=== PATIENT | male | born 1970 | race Caucasian/White ===

== ENCOUNTER 2020-09-09 12:18 | Inpatient (IN) | payer MEDICAID, SELFPAY ==
[2020-09-09 12:23] VITALS: BP 145/76; PULSE 103; RESP 18; TEMP 36.7; O2SAT 99; BMI 27.8
--- NOTE | 2020-09-09 12:41 | ECG_ITS ---
Test Reason : OD Blood Pressure : / mmHG Vent. Rate : 065 BPM Atrial Rate : 065 BPM P-R Int : 138 ms QRS Dur : 090 ms QT Int : 428 ms P-R-T Axes : 051 009 014 degrees QTc Int : 445 ms Normal sinus rhythm Nonspecific T wave abnormality Abnormal ECG When compared with ECG of 29-NOV-2019 18:43, No significant change was found Referred By: Ana Rosa Garcia Electronically Signed By:Dario Pratt
--- NOTE | 2020-09-09 12:48 | ED_ITS ---
HPI - Psych General Chief Complaint: Psychiatric Symptoms Stated Complaint: CRISIS Time Seen by Provider: 09/09/20 12:35 Source: patient Mode of arrival: ambulatory Limitations: no limitations History of Present Illness HPI Narrative: 49-year-old male with a past medical history of anxiety, depression, insomnia, alcohol abuse, former substance use on Suboxone here with complaints of suicide attempt yesterday. Patient tells me that he has been feeling increasingly depressed and suicidal and took medications to harm himself yesterday at 16:00. Patient arrives with empty bottles. He tells me he filled his medications on 08/15/2020 and has been taking them as prescribed until yesterday. He arrives with empty bottles of Geodon, Wellbutrin, Remeron, trazodone and hydroxyzine. He tells me he is feeling suicidal. He denies homicidal ideations or hallucinations. He is complaining of feeling tremulous and diaphoretic. He tells me he drinks 12-18 beers per day and his last drink was last evening. He does have a history of seizures secondary to alcohol withdrawal. He tells me that he also has a previous history of substance abuse but is currently on Suboxone. Related Data Home Medications Medication Instructions Recorded Confirmed buprenorphine-naloxone [Suboxone] 1 film BUCCAL Q24H 09/09/20 09/09/20 bupropion HCl [Wellbutrin XL] 1 tab PO QAM 09/09/20 09/09/20 gabapentin 1 tab PO TID 09/09/20 09/09/20 hydroxyzine pamoate 50 cap PO TID PRN 09/09/20 09/09/20 mirtazapine 1 tab PO BEDTIME 09/09/20 09/09/20 trazodone 1 tab PO BEDTIME 09/09/20 09/09/20 ziprasidone HCl 1 cap PO BID 09/09/20 09/09/20 Allergies Allergy/AdvReac Type Severity Reaction Status Date / Time No Known Allergies Allergy Unverified 02/10/20 19:52 [No Known Allergies*] Review of Systems Review of Systems: Yes all other systems are reviewed and are negative Constitutional: Constitutional: Reports no additional constitutional complaints, Denies body ache(s), Denies chills, Reports excessive sweating, Denies fever(s), Denies headache(s) and Denies weakness Eyes: Eyes: Reports no additional eye complaints and Denies change in vision ENT: Reports system reviewed and no additional complaints, except as documented, Denies dizziness, Denies headache(s), Denies nasal congestion, Denies nasal discharge and Denies neck pain Cardiovascular: Cardiovascular: Reports no additional cardiovascular complaints, Denies chest pain, Denies leg edema and Denies dyspnea Respiratory: Respiratory: Reports no additional respiratory complaints, Denies cough and Denies dyspnea Gastrointestinal: Gastrointestinal: Reports no additional gastrointestinal complaints, Denies abdominal pain, Denies diarrhea, Denies nausea and Denies vomiting Genitourinary: Genitourinary: Denies urinary incontinence Musculoskeletal: Musculoskeletal: Reports no additional musculoskeletal complaints, Denies back pain, Denies arthralgias, Denies joint swelling, Denies neck pain, Denies numbness and Denies tingling Integumentary/Breasts: Skin/Breast: Reports system reviewed and no additional complaints, except as docu and Denies rash Neurologic: Reports system reviewed and no additional complaints, except as documented, Denies Abnormal speech present, Denies dizziness, Denies headache(s), Denies numbness, Denies tingling and Denies weakness Comments: +tremor Endocrine: Endocrine: Reports excessive sweating PMFSH Past Medical History Attestation statement: The following information was validated with the patient. Source: old records reviewed and nursing notes reviewed Medical History (Updated 09/09/20 @ 13:13 by Ana Rosa Garcia NP) Depression Surgical History (Updated 09/09/20 @ 17:49 by Lexii Willson NP) History of mandibular surgery Family History Family History (Updated 09/09/20 @ 17:48 by Lexii Willson NP) Mother Diabetes mellitus Father Leukemia Social History Social History (Updated 09/09/20 @ 12:57 by Ana Rosa Garcia NP) Alcohol intake: current Smoking Status: Current every day smoker Use of substances other than those prescribed or required for medical reasons: No Advance Directives: No Advance Directives Information Provided: No Physical Exam Vital Signs: Vital Signs: Last Vital Signs Temp 98.3 F 09/09/20 14:55 Pulse 65 09/09/20 16:00 Resp 18 09/09/20 16:00 BP 110/61 09/09/20 14:55 Pulse Ox 94 04/17/21 14:55 Body Mass Index 27.8 Const: General: cooperative and anxious Orientation/consciousness: patient oriented x3 Limitations: no limitations HENMT: Head: Yes normal to inspection Ears: hearing grossly normal bila terally General nose exam: Normal external nose present Face and sinus: Yes normal facial exam Mouth: Normal oral and palatal mucosa present Throat: Yes posterior oropharynx normal Eyes: General: appearance normal, both eyes and all related structures Pupils: Equal, round and reactive pupils present Neck: Neck: Yes normal visual inspection Chest: Chest palpation & inspection: normal inspection of the chest Resp: Effort & Inspection: normal respiratory effort Auscultation: clear to auscultation bilaterally Cardio: Rate: regular rate Rhythm: regular rhythm Peripheral pulses: Peripheral pulses 2+ throughout GI: Inspection: Yes normal to inspection Palpation (GI): Soft to palpation and nontender Auscultation: normal bowel sounds Back/Spine/Pelvis: Thoracic/Lumbar Spine: thoracic and lumbar spine normal to inspection Skin: Other: Diaphoretic General skin exam: no rashes or lesions noted Neuro: Other: Tremulous General: patient oriented x3, no focal motor deficits and normal sensation to monofilament Cranial nerves: Yes Equal, round and reactive pupils present Cognition (Neuro): normal cognition Speech: No Abn ormal speech present Gait exam (Neuro): Normal gait present Motor exam (neuro): 5/5 motor strength present throughout Extrem: General: Yes normal to inspection Course Course Course Narrative: 49-year-old male here status post suicide attempt yesterday at 4 PM on prescription medications. Patient is complaining of feeling tremulous and diaphoretic and has mild tachycardia and hypertension on arrival. He is alert and oriented although anxious. He arrives with his medication bottles which are empty. Reviewed medications which were all filled on August 15. Prior to this attempt he was taking all medications as prescribed. Geodon 40mg PO BID #60. Bottle is empty. Wellbutrin XL 300mg PO daily # 30. Bottle is empty. Remeron 30mg PO daily # 30. Bottle is empty. Trazadone 150mg PO daily #30. Bottle is empty. Hydroxyzine 50mg TID PRN # 90. Bottle is empty (Patient tells me he was taking TID consistently since filling). If patient is truthful about taking his medications as prescribed he likely had 10 tablets left of Geodon, 5 tablets of Wellbutrin, 5 tablets of Remeron, 5 tablets of trazodone and 15 tablets of hydroxyzine. Orders placed for EKG, labs, tox screen, COVID screen. environmental monitoring specialist, seizure precautions, CIWA score. For tachycardia, hypertension, tremors and diaphoresis 2 mg of IV Ativan ordered. 1305-Spoke to poison control. Recommended admission for 24 hours for observation. Patient should remain on seizure precautions and cardiac m onitoring. He should receive p.r.n. benzos for symptoms. He should have EKG every 2 hours x3 to check the QTC and then these may be discontinued. Discussed with nursing and they are aware. Once medically cleared will need BHN evaluation. 1445-Initial qtc 445 on EKG. Plan to follow per poison control. Labs reviewed and unremarkable. Tox screen pending. Call out to hospitalist to discuss for adm ission. 1500-Discussed with Dr Smith who accepted admission of patient. Heart rate and blood pressure as well as tremor and diaphoresis improved after 1 dose of ativan. MDM - Psych Medical Records Attestation: I reviewed the patient's medical records. Lab Data Attestation: I reviewed the patient's lab results. Result diagrams: 09/09/20 14:00 09/09/20 14:00 Labs: Lab Results 09/09/20 09/09/20 09/09/20 Range/Units 14:00 14:00 14:00 WBC 6.7 (4.8-10.8) X10*3/uL RBC 4.75 (4.60-5.80) X10*6/uL Hgb 14.3 (14.0-18.0) g/dl Hct 41.0 L (42-52) % MCV 86.3 (80-98) fL MCH 30.1 (27.0-33.0) pg MCHC 34.9 (31.0-36.0) g/dl RDW 13.1 (11.0-16.0) % Plt Count 251 (160-400) X10*3/uL MPV 10.1 (9.4-12.4) fL Immature Gran % (Auto) 0.1 (0.0-0.4) % Neut % (Auto) 75.3 H (45-73) % Lymph % (Auto) 15.8 L (20-40) % Eagle % (Auto) 7.4 (2-11) % Eos % (Auto) 1.0 (0-4) % Baso % (Auto) 0.4 (0-2) % Lymph # (Auto) 1.1 L (1.2-4.9) X10*3/uL Eagle # (Auto) 0.5 (0.1-1.2) X10*3/uL Eos # (Auto) 0.1 (0.0-0.4) X10*3/uL Baso # (Auto) 0.0 (0.0-0.2) X10*3/uL Abs Immat Gran (auto) 0.01 (0.00-0.03) X10*3/uL Absolute Neuts (auto) 5.1 (2.0-8.3) X10*3/uL Absolute Nucleated RBC 0.000 (0.0-0.012) X10*3/uL Nucleated RBC % (auto) 0.0 (0.0-0.2) /100WBC Sodium 140 (135-145) mmol/L Potassium 3.7 (3.3-5.1) mmol/L Chloride 104 (96-108) mmol/L Carbon Dioxide 27 (22-29) mmol/L Anion Gap 13 (12-20) BUN 13 (9-16) mg/dL Creatinine 0.85 (0.5-1.4) mg/dL Estim Creat Clear Calc 121.1 Estimated GFR > 60 Random Glucose 109 (60-115) mg/dL Calcium 9.3 (8.4-10.2) mg/dL Magnesium 2.1 (1.6-2.6) mg/dL Total Bilirubin 0.9 (0.0-1.0) mg/dL Direct Bilirubin 0.3 (0.0-0.5) mg/dL AST 13 (5-37) U/L ALT 27 (0-40) U/L Alkaline Phosphatase 73 (39-117) U/L Total Protein 6.6 (6.5-8.0) g/dL Albumin 4.3 (3.5-5.0) g/dL Salicylates (15-30) mg/dL Acetaminophen (<30) mcg/mL Ethyl Alcohol mg/dL COVID-19 (LINK) Negative (Negative) COVID-19 Clin Com See Note 09/09/20 09/09/20 Range/Units 14:00 14:00 WBC (4.8-10.8) X10*3/uL RBC (4.60-5.80) X10*6/uL Hgb (14.0-18.0) g/dl Hct (42-52) % MCV (80-98) fL MCH (27.0-33.0) pg MCHC (31.0-36.0) g/dl RDW (11.0-16.0) % Plt Count (160-400) X10*3/uL MPV (9.4-12.4) fL Immature Gran % (Auto) (0.0-0.4) % Neut % (Auto) (45-73) % Lymph % (Auto) (20-40) % Eagle % (Auto) (2-11) % Eos % (Auto) (0-4) % Baso % (Auto) (0-2) % Lymph # (Auto) (1.2-4.9) X10*3/uL Eagle # (Auto) (0.1-1.2) X10*3/uL Eos # (Auto) (0.0-0.4) X10*3/uL Baso # (Auto) (0.0-0.2) X10*3/uL Abs Immat Gran (auto) (0.00-0.03) X10*3/uL Absolute Neuts (auto) (2.0-8.3) X10*3/uL Absolute Nucleated RBC (0.0-0.012) X10*3/uL Nucleated RBC % (auto) (0.0-0.2) /100WBC Sodium (135-145) mmol/L Potassium (3.3-5.1) mmol/L Chloride (96-108) mmol/L Carbon Dioxide (22-29) mmol/L Anion Gap (12-20) BUN (9-16) mg/dL Creatinine (0.5-1.4) mg/dL Estim Creat Clear Calc Estimated GFR Random Glucose (60-115) mg/dL Calcium (8.4-10.2) mg/dL Magnesium (1.6-2.6) mg/dL Total Bilirubin (0.0-1.0) mg/dL Direct Bilirubin (0.0-0.5) mg/dL AST (5-37) U/L ALT (0-40) U/L Alkaline Phosphatase (39-117) U/L Total Protein (6.5-8.0) g/dL Albumin (3.5-5.0) g/dL Salicylates < 5.0 L (15-30) mg/dL Acetaminophen < 1 (<30) mcg/mL Ethyl Alcohol < 10 mg/dL COVID-19 (LINK) (Negative) COVID-19 Clin Com ECG Data Attestation: I personally reviewed and interpreted this ECG as follows: ECG interpretation date: 09/09/20 ECG interpretation time: 14:14 Interpretation: NSR rate 65, normal pr, normal qrs, qtc 445 Discharge Plan Discharge Clinical Impression: Suicide attempt Patient Disposition: Admitted As Inpatient
[2020-09-09 14:05] LABS: MANUAL DIFF FLAG NO
[2020-09-09 14:06] LABS: Basophils Percent Auto 0.4 % (0-2); Eosinophils Absolute Auto 0.1 X10*3/uL (0.0-0.4); Hemoglobin 14.3 g/dl (14.0-18.0); Imm Gran Abs Auto 0.01 X10*3/uL (0.00-0.03); Imm Gran Pct Auto 0.1 % (0.0-0.4); Lymphocytes Absolute Auto 1.1 X10*3/uL (1.2-4.9); Lymphocytes Percent Auto 15.8 % (20-40); Mean Corpuscular HGB Conc 34.9 g/dl (31.0-36.0); Mean Corpuscular Hemoglobin 30.1 pg (27.0-33.0); Mean Corpuscular Volume 86.3 fL (80-98); Mean Platelet Volume 10.1 fL (9.4-12.4); Monocytes Absolute Auto 0.5 X10*3/uL (0.1-1.2); Monocytes Percent Auto 7.4 % (2-11); Neutrophils Absolute Auto 5.1 X10*3/uL (2.0-8.3); Neutrophils Percent Auto 75.3 % (45-73); Platelet Count 251 X10*3/uL (160-400); Red Blood Count 4.75 X10*6/uL (4.60-5.80); Red Cell Distribution Width 13.1 % (11.0-16.0); White Blood Count 6.7 X10*3/uL (4.8-10.8)
[2020-09-09] MEDS: Gabapentin 400 MG CAPSULE 800 MG PO ×2 (14:07→19:46)
[2020-09-09] MEDS: Buprenorphine/Naloxone 12/3 mg FILM 1 FILM BUCCAL (14:07)
[2020-09-09] MEDS: LORazepam 2 MG/ML VIAL IVPUSH (14:07)
[2020-09-09 14:22] LABS: COVID-19 Test Negative (Negative)
[2020-09-09 14:46] LABS: Acetaminophen LAB < 1 mcg/mL (<30); Ethanol < 10 mg/dL; Salicylate < 5.0 mg/dL (15-30)
[2020-09-09 14:48] LABS: Alanine Aminotransferase 27 U/L (0-40); Albumin Level 4.3 g/dL (3.5-5.0); Alkaline Phosphatase 73 U/L (39-117); Anion Gap 13 (12-20); Aspartate Amino Transferase 13 U/L (5-37); Bilirubin Direct 0.3 mg/dL (0.0-0.5); Bilirubin Total 0.9 mg/dL (0.0-1.0); Blood Urea Nitrogen 13 mg/dL (9-16); Calcium 9.3 mg/dL (8.4-10.2); Carbon Dioxide 27 mmol/L (22-29); Chloride 104 mmol/L (96-108); Creatinine Clr Calc Pharmacy 121.1; Estimated Glomerular Filt Rate > 60; Glucose Random 109 mg/dL (60-115); Magnesium 2.1 mg/dL (1.6-2.6); Potassium 3.7 mmol/L (3.3-5.1); Sodium 140 mmol/L (135-145); Total Protein 6.6 g/dL (6.5-8.0)
[2020-09-09 14:55] VITALS: BP 110/61; PULSE 69; RESP 14; TEMP 36.8; O2SAT 94
[2020-09-09 16:00] VITALS: PULSE 65; RESP 18
--- NOTE | 2020-09-09 16:15 | ECG_ITS ---
Test Reason : REPEAT Blood Pressure : / mmHG Vent. Rate : 066 BPM Atrial Rate : 066 BPM P-R Int : 140 ms QRS Dur : 092 ms QT Int : 430 ms P-R-T Axes : 057 012 022 degrees QTc Int : 450 ms Normal sinus rhythm Nonspecific T wave abnormality Abnormal ECG When compared with ECG of 09-SEP-2020 14:14, No significant change was found Referred By: Ana Rosa Garcia Electronically Signed By:Dario Pratt
--- NOTE | 2020-09-09 16:41 | PC.NURSE ---
Spoke to Kishan at poison control about pt. Updated poison control on labwork, repeat EKG, and vitals. Poison control states that pt's case will now be closed because pt overdosed on his medications yesterday at 1600 and they feel he is safe to be cleared this point. Provider Milka aware. will continue to monitor.
--- NOTE | 2020-09-09 16:59 | PM.EVENT ---
Event Note Date of Service: 09/09/20 Event Note: Addendum to history and physical by mid-level provider Lexii Willson NP. I interviewed and examined the patient. I discussed their presentation and management with the mid-level provider. I reviewed the history and physical and agree with the documentation, with the following additions and corrections: 49yo M with depression, EtOH abuse with hx withdrawal sz, opioid use disorder on Suboxone, presented after attempted overdose on ziprasidone, bupropion, trazodone, hydroxyzine, and mirtazapine. Poison Control was contacted by the ED and recommendation is for 23-hr observation and EKGs q2h x2 to ensure QTc normal; avoid phenobarbital for EtOH withdrawal but lorazepam OK. On exam vitals stable, in NAD, no signs of any specific toxidrome, prior EKG QTc 445 ms, current EKG QTc 450 ms. Plan admit to monitored bed, prn lorazepam, sitter, vitamins, crisis consult once medically cleared.
--- NOTE | 2020-09-09 17:44 | P.HPHOSP_ITS ---
History of Present Illness Date of Service: 09/09/20 Chief Complaint: Overdose 49-year-old man presenting to the ER overdose. He reports that he was attempting commit suicide because he was unhappy and depressed. He reports that his depression has increased depression recently with his personal circumstances. he reported that he took Geodon, trazodone and Remeron. According to the ER provider's note he also took Wellbutrin and hydroxyzine. He also reported that he drinks at least 12 to 24 beers a day and his last drink was yesterday. He reports he took whatever was left in the bottles of his medication yesterday at 16:00. He reported that he felt very sleepy but had no other symptoms. According to the ER provider's note erosive estimate how much medication he took includes what may have been left in his medication bottles from refills. Geodon 10 tablets, Wellbutrin 5 tablets, Remeron 5 tablets, trazodone 5 tablets, hydroxyzine 15 tablets. Poison Control was contacted while patient was in the ER with recommendation to check EKG every 2 hours x3 and monitor QTC closely. According to poison control at this time hold on phenobarbital and treat with benzodiazepines instead. He did receive a dose of lorazepam in the ER as well as his scheduled Suboxone. Review of Systems Review of Systems: Denies any recent fever chills or decrease in appetite respiratory denies any shortness of breath coverage production cardiovascular is adjustment of any PND or edema gastrointestinal denies any dysphagia abdominal pain nausea vomiting or diarrhea genitourinary denies any dysuria frequency or hematuria musculoskeletal denies any joint pain or swelling neuropsych denies any weakness or seizures all other systems reviewed are negative [facility] Medical History (Updated 09/09/20 @ 13:13 by Ana Rosa Garcia NP) Depression Family History (Updated 09/09/20 @ 17:48 by Lexii Willson NP) Mother Diabetes mellitus Father Leukemia Surgical History (Updated 09/09/20 @ 17:49 by Lexii Willson NP) History of mandibular surgery Social History (Updated 09/09/20 @ 12:57 by Ana Rosa Garcia NP) Alcohol intake: current Smoking Status: Current every day smoker Use of substances other than those prescribed or required for medical reasons: No Advance Directives: No Advance Directives Information Provided: No Meds Allergies Allergy/AdvReac Type Severity Reaction Status Date / Time No Known Allergies Allergy Unverified 02/10/20 19:52 [No Known Allergies*] Active Medications: Current Medications Generic Name Dose Route Start Last Admin Trade Name Freq PRN Reason Stop Dose Admin Buprenorphine/Naloxone 1 film 09/09/20 13:45 09/09/20 14:07 Buprenorphine/Naloxone 12/3 Mg Film BUCCAL 1 film Q24H FOUZIA Administration Gabapentin 800 mg 09/09/20 15:00 09/09/20 14:07 Gabapentin 400 Mg Capsule PO 800 mg TID FOUZIA Administration Lorazepam 1 mg 09/09/20 17:42 Lorazepam 2 Mg/Ml Vial IVPUSH Q4H PRN withdrawl symptoms Nicotine Polacrilex 2 mg 09/09/20 12:55 Nicotine Polacrilex 2 Mg Gum BUCCAL TID PRN nicotine withdrawal Ondansetron HCl 4 mg 09/09/20 17:39 Ondansetron Hcl 4 Mg/2 Ml Vial IVPUSH Q8H PRN Nausea and Vomiting Sodium Chloride 3 ml 09/10/20 00:00 0.9 % Sodium Chloride Flush 3 Ml Syringe IVFLUSH QSHIFT [facility] Home Medications Medication Instructions Recorded Confirmed Last Taken Type buprenorphine-naloxone [Suboxone] 1 film BUCCAL Q24H 09/09/20 09/09/20 09/04/20 History bupropion HCl [Wellbutrin XL] 1 tab PO QAM 09/09/20 09/09/20 09/08/20 History gabapentin 1 tab PO TID 09/09/20 09/09/20 09/08/20 History hydroxyzine pamoate 50 cap PO TID PRN 09/09/20 09/09/20 09/08/20 History mirtazapine 1 tab PO BEDTIME 09/09/20 09/09/20 09/08/20 History trazodone 1 tab PO BEDTIME 09/09/20 09/09/20 09/08/20 History ziprasidone HCl 1 cap PO BID 09/09/20 09/09/20 09/08/20 History Physical Exam Vital Signs and Narrative: Vital Signs: Last Vital Signs Temp 98.3 F 09/09/20 14:55 Pulse 65 09/09/20 16:00 Resp 18 09/09/20 16:00 BP 110/61 09/09/20 14:55 Pulse Ox 94 09/09/20 14:55 Body Mass Index 27.8 Appearing in no acute distress head is normocephalic atraumatic eyes pupils are PERRLA sclera is anicteric mouth throat mucous membranes are intact and moist neck is supple no lymphadenopathy, no JVD noted lung sounds are clear to auscultation heart regular rate rhythm, clear S1, S2 positive bowel sounds, abdomen is soft, nontender neuro patient is alert x3, no focal deficits Results Labs CBC and Chem 7: 09/09/20 14:00 09/09/20 14:00 Labs: Laboratory Results - last 24 hr 09/09/20 09/09/20 09/09/20 14:00 14:00 14:00 MCV 86.3 MCH 30.1 MCHC 34.9 RDW 13.1 Plt Count 251 MPV 10.1 Immature Gran % (Auto) 0.1 Neut % (Auto) 75.3 H Lymph % (Auto) 15.8 L [place] % (Auto) 7.4 Eos % (Auto) 1.0 Baso % (Auto) 0.4 Lymph # (Auto) 1.1 L [place] # (Auto) 0.5 Eos # (Auto) 0.1 Baso # (Auto) 0.0 Abs Immat Gran (auto) 0.01 Absolute Neuts (auto) 5.1 Absolute Nucleated RBC 0.000 Nucleated RBC % (auto) 0.0 Anion Gap 13 Estim Creat Clear Calc 121.1 Estimated GFR > 60 Random Glucose 109 Calcium 9.3 Magnesium 2.1 Total Bilirubin 0.9 Direct Bilirubin 0.3 AST 13 ALT 27 Alkaline Phosphatase 73 Total Protein 6.6 Albumin 4.3 Salicylates Acetaminophen Ethyl Alcohol COVID-19 (LINK) Negative COVID-19 Clin Com See Note 09/09/20 09/09/20 14:00 14:00 MCV MCH MCHC RDW Plt Count MPV Immature Gran % (Auto) Neut % (Auto) Lymph % (Auto) [place] % (Auto) Eos % (Auto) Baso % (Auto) Lymph # (Auto) [place] # (Auto) Eos # (Auto) Baso # (Auto) Abs Immat Gran (auto) Absolute Neuts (auto) Absolute Nucleated RBC Nucleated RBC % (auto) Anion Gap Estim Creat Clear Calc Estimated GFR Random Glucose Calcium Magnesium Total Bilirubin Direct Bilirubin AST ALT Alkaline Phosphatase Total Protein Albumin Salicylates < 5.0 L Acetaminophen < 1 Ethyl Alcohol < 10 COVID-19 (LINK) COVID-19 Clin Com Assessment and Plan (1) Suicide attempt: Status: Acute 49-year-old man admitted after a possible overdose of his psychiatric medications including Geodon, trazodone, Remeron, Wellbutrin and hydroxyzine. Patient is alert and oriented, hemodynamically stable. Overdose. Secondary to suicidal ideation/ attempt. Increased depression more recently. - Monitor the patient on observation - EKG every 2 hours x3 then cancel monitor for QTC prolongation - telemetry monitoring - N/care team consultation once medically cleared Alcohol abuse. Patient reports drinking at least 12-18 beers a day last drink was yesterday. Will hold on phenobarbital at this time and treat with benzodiazepines. -CIWA scale -Lorazepam -Discussed the importance of alcohol cessation -Seizure precautions, history of alcohol withdrawal seizure Substance abuse. -Suboxone Severe depression. -Hold medications for now due to overdose DVT prophylaxis with Lovenox Attending: Dr. Smith
--- NOTE | 2020-09-09 18:00 | ECG_ITS ---
Test Reason : REPEAT Blood Pressure : / mmHG Vent. Rate : 073 BPM Atrial Rate : 073 BPM P-R Int : 132 ms QRS Dur : 086 ms QT Int : 408 ms P-R-T Axes : 056 017 019 degrees QTc Int : 449 ms Normal sinus rhythm Nonspecific T wave abnormality Abnormal ECG When compared with ECG of 09-SEP-2020 16:19, No significant change was found Referred By: Lexii Willson Electronically Signed By:Dario Pratt
[2020-09-09 19:31] VITALS: BP 125/66; PULSE 73; RESP 11; TEMP 36.6; O2SAT 96
[2020-09-09] MEDS: LORazepam 2 MG/ML VIAL 1 MG IVPUSH (19:46)
[2020-09-09] MEDS: Enoxaparin Sodium 40 MG/0.4 ML SYRINGE SUBCUT (19:46)
--- NOTE | 2020-09-09 20:00 | ECG_ITS ---
Test Reason : REPEAT Blood Pressure : / mmHG Vent. Rate : 075 BPM Atrial Rate : 075 BPM P-R Int : 136 ms QRS Dur : 090 ms QT Int : 408 ms P-R-T Axes : 056 018 029 degrees QTc Int : 455 ms Normal sinus rhythm Normal ECG When compared with ECG of 09-SEP-2020 19:50, No significant change was found Referred By: Lexii Willson Electronically Signed By:Dario Pratt
[2020-09-09] MEDS: Nicotine Polacrilex 2 MG GUM BUCCAL (20:33)
[2020-09-09 21:11] VITALS: RESP 16
[2020-09-10] MEDS: 0.9 % Sodium Chloride Flush 3 ML SYRINGE IVFLUSH ×2 (00:27→07:51)
[2020-09-10] MEDS: LORazepam 2 MG/ML VIAL 1 MG IVPUSH ×3 (00:27→09:07)
[2020-09-10 00:30] VITALS: BP 118/74; PULSE 78; RESP 18; O2SAT 94
[2020-09-10 01:03] LABS: Amphetamine Screen Urine Not Detected (Not Detect); Barbiturates, Urine Not Detected (Not Detect); Benzodiazepines Screen Urine Not Detected (Not Detect); Cannabinoid Screen Urine Not Detected (Not Detect); Cocaine Screen Urine Not Detected (Not Detect); Opiate Screen Urine Not Detected (Not Detect); Phencyclidine Screen Urine Not Detected (Not Detect)
[2020-09-10] MEDS: Nicotine 21 MG PATCH.TD24 TRANSDERMA (05:08)
[2020-09-10 07:27] LABS: MANUAL DIFF FLAG NO
[2020-09-10 07:31] LABS: Basophils Absolute Auto 0.1 X10*3/uL (0.0-0.2); Basophils Percent Auto 0.9 % (0-2); Eosinophils Absolute Auto 0.2 X10*3/uL (0.0-0.4); Eosinophils Percent Auto 2.5 % (0-4); Hematocrit 39.4 % (42-52); Hemoglobin 13.5 g/dl (14.0-18.0); Imm Gran Abs Auto 0.02 X10*3/uL (0.00-0.03); Imm Gran Pct Auto 0.3 % (0.0-0.4); Lymphocytes Absolute Auto 2.1 X10*3/uL (1.2-4.9); Mean Corpuscular HGB Conc 34.3 g/dl (31.0-36.0); Mean Corpuscular Hemoglobin 30.1 pg (27.0-33.0); Mean Corpuscular Volume 87.9 fL (80-98); Mean Platelet Volume 10.4 fL (9.4-12.4); Monocytes Absolute Auto 0.7 X10*3/uL (0.1-1.2); Monocytes Percent Auto 10.3 % (2-11); Neutrophils Absolute Auto 3.8 X10*3/uL (2.0-8.3); Platelet Count 253 X10*3/uL (160-400); Red Blood Count 4.48 X10*6/uL (4.60-5.80); Red Cell Distribution Width 13.4 % (11.0-16.0); White Blood Count 6.8 X10*3/uL (4.8-10.8)
[2020-09-10 07:58] LABS: Alanine Aminotransferase 20 U/L (0-40); Albumin Level 3.9 g/dL (3.5-5.0); Alkaline Phosphatase 64 U/L (39-117); Anion Gap 16 (12-20); Aspartate Amino Transferase 10 U/L (5-37); Bilirubin Direct 0.2 mg/dL (0.0-0.5); Bilirubin Total 0.4 mg/dL (0.0-1.0); Blood Urea Nitrogen 12 mg/dL (9-16); Calcium 8.8 mg/dL (8.4-10.2); Carbon Dioxide 24 mmol/L (22-29); Chloride 104 mmol/L (96-108); Creatinine Clr Calc Pharmacy 118.3; Estimated Glomerular Filt Rate > 60; Glucose Random 128 mg/dL (60-115); Sodium 140 mmol/L (135-145); Total Protein 5.8 g/dL (6.5-8.0)
[2020-09-10] MEDS: Gabapentin 400 MG CAPSULE 800 MG PO ×3 (09:07→20:53)
[2020-09-10] MEDS: ondansetron HCL 4 MG/2 ML VIAL IVPUSH (09:23)
[2020-09-10 09:28] VITALS: BP 147/67; PULSE 72; RESP 18
--- NOTE | 2020-09-10 11:01 | MHC.CARE ---
0930: Met with pt upon receipt of a consult request by Dr Charles Smith. Pt has been admitted to [facility] status and is remaining in the ED until a bed is available. Pt stated that he had left the [facility] (A Dual Diagnosis Program) about 3 1/2 weeks ago and upon exiting the program began Drinking immediately . Pt left the program prior to completing it and states that he did so mostly because of his urges to drink. Pt stated that his drinking is directly related to his increasing depression. Alcohol consumption is his means of coping and medicating the depression. Pt stated that he knows that his alcohol consumption is Making the depression and everything else worse . Pt stated that he consumes alcohol daily, approximately 18-24 cans of beer a day and about a pint of hard liquor daily when he has the money to do so. Pt cites a family history of alcohol abuse, stating his father had been in recovery from alcohol addiction for 30 years before he . Pt began drinking at 15 y/o and began heavily drinking at about 30 y/o. There were no identified triggers to cause this increase in alcohol consumption. Pt believes that It is the natural progression of the disease . Pt has no support systems in place, he has no therapist or prescriber for his depression and alcohol addiction. No support services were put in place by the [facility] as he had not progressed far enough in the program to warrant such things being put in place. Pt has no friends and is a self described Loner . Pt has no family, being an only child, and has lost both parents. Pt has a hx of opiate and cocaine addiction and has been in recovery without relapse. Pt is presently on suboxone. Pt has been experiencing difficulty maintaining meaningful relationships as a result of his depression and alcohol abuse. Pt has not worked in a year and a half, losing his job as a result of his alcohol addiction. Pt rates his depression as an 8 out of 10 stating that his norm is about a 4-5). Pt endorses thoughts of harm to self not thoughts of harm to others. Pt stated that he wants inpatient level of care and will go anywhere in the state to get it. Pt's ED nurse advised of the thoughts of self cj. Dr Smith advised pt has been seen by CARE Team.
--- NOTE | 2020-09-10 11:39 | MHC.CM.PN ---
PT REPORTS HE LEFT A RESIDENTIAL PROGRAM A FEW WEEKS AGO AND IS CURRENTLY STAYING WITH FRIENDS IN [place]. PT REPORTS HE HAS NO COMMUNITY OR FAMILY SUPPORTS. PT DOES NOT HAVE A HCP BUT DOES HAVE A PCP, HORACIO SANCHEZ. PT REPORTS HE DOES NOT USE ANY DME. PT IS AWARE HE IS ON OBSERVATION STATUS AND CM EXPLAINED THE INDICATIONS BASED ON HIS INSURANCE COVERAGE. PT CURRENTLY BEING EVALUATED BY THE CARE TEAM FOR A POSSIBLE INPT PSYCHIATRIC ADMISSION. TRANSPORT TBD BY DISPOSITION.
--- NOTE | 2020-09-10 12:43 | P.PNIM_ITS ---
Subjective Subjective Date of Service: 09/10/20 Interval History: Mild tremor/anxiety relieved by lorazepam. Normal QTc on all EKGs. Awaiting psychiatry bed. Physical Exam Vital Signs: Vital Signs: Last Vital Signs Temp 97.9 F 09/09/20 19:31 Pulse 72 09/10/20 09:28 Resp 18 09/10/20 09:28 BP 147/67 H 09/10/20 09:28 Pulse Ox 94 09/10/20 00:30 Body Mass Index 27.8 Gen: in no acute distress HEENT: sclera anicteric, moist mucus membranes Neck: supple Lungs: clear to auscultation bilaterally Heart: regular rate and rhythm, no murmurs Abd: soft, non-tender, non-distended Ext: no edema Skin: warm/well-perfused Neuro: alert and oriented x3, no focal findings Psych: appropriate affect Objective Data Current Medications Generic Name Dose Route Start Last Admin Trade Name Freq PRN Reason Stop Dose Admin Buprenorphine/Naloxone 1 film 09/09/20 13:45 09/09/20 14:07 Buprenorphine/Naloxone 12/3 Mg Film BUCCAL 1 film Q24H FOUZIA Administration Enoxaparin Sodium 40 mg 09/09/20 19:00 09/09/20 19:46 Enoxaparin Sodium 40 Mg/0.4 Ml Syringe SUBCUT 40 mg Q24H FOUZIA Administration Gabapentin 800 mg 09/09/20 15:00 09/10/20 09:07 Gabapentin 400 Mg Capsule PO 800 mg TID FOUZIA Administration Lorazepam 1 mg 09/09/20 17:42 09/10/20 09:07 Lorazepam 2 Mg/Ml Vial IVPUSH 1 mg Q4H PRN Administration withdrawl symptoms Nicotine 21 mg 09/10/20 05:15 09/10/20 05:08 Nicotine 21 Mg Patch.Td24 TRANSDERMA 21 mg DAILY FOUZIA Administration Nicotine Polacrilex 2 mg 09/09/20 12:55 09/09/20 20:33 Nicotine Polacrilex 2 Mg Gum BUCCAL 2 mg TID PRN Administration nicotine withdrawal Ondansetron HCl 4 mg 09/09/20 17:39 09/10/20 09:23 Ondansetron Hcl 4 Mg/2 Ml Vial IVPUSH 4 mg Q8H PRN Administration Nausea and Vomiting Sodium Chloride 3 ml 09/10/20 00:00 09/10/20 07:51 0.9 % Sodium Chloride Flush 3 Ml Syringe IVFLUSH 3 ml QSHIFT FOUZIA Administration Labs CBC & Chem 7: 09/10/20 07:13 09/10/20 07:13 Labs: Laboratory Results - last 24 hr 09/09/20 09/09/20 09/09/20 14:00 14:00 14:00 WBC 6.7 RBC 4.75 Hgb 14.3 Hct 41.0 L MCV 86.3 MCH 30.1 MCHC 34.9 RDW 13.1 Plt Count 251 MPV 10.1 Immature Gran % (Auto) 0.1 Neut % (Auto) 75.3 H Lymph % (Auto) 15.8 L [place] % (Auto) 7.4 Eos % (Auto) 1.0 Baso % (Auto) 0.4 Lymph # (Auto) 1.1 L [place] # (Auto) 0.5 Eos # (Auto) 0.1 Baso # (Auto) 0.0 Abs Immat Gran (auto) 0.01 Absolute Neuts (auto) 5.1 Absolute Nucleated RBC 0.000 Nucleated RBC % (auto) 0.0 Sodium 140 Potassium 3.7 Chloride 104 Carbon Dioxide 27 Anion Gap 13 BUN 13 Creatinine 0.85 Estim Creat Clear Calc 121.1 Estimated GFR > 60 Random Glucose 109 Calcium 9.3 Magnesium 2.1 Total Bilirubin 0.9 Direct Bilirubin 0.3 AST 13 ALT 27 Alkaline Phosphatase 73 Total Protein 6.6 Albumin 4.3 Salicylates Urine Opiates Screen Acetaminophen Ur Barbiturates Screen Ur Phencyclidine Scrn Ur Amphetamines Screen U Benzodiazepines Scrn Urine Cocaine Screen U Marijuana (THC) Screen Ethyl Alcohol COVID-19 (LINK) Negative COVID-19 Clin Com See Note 09/09/20 09/09/20 09/10/20 14:00 14:00 00:28 WBC RBC Hgb Hct MCV MCH MCHC RDW Plt Count MPV Immature Gran % (Auto) Neut % (Auto) Lymph % (Auto) [place] % (Auto) Eos % (Auto) Baso % (Auto) Lymph # (Auto) [place] # (Auto) Eos # (Auto) Baso # (Auto) Abs Immat Gran (auto) Absolute Neuts (auto) Absolute Nucleated RBC Nucleated RBC % (auto) Sodium Potassium Chloride Carbon Dioxide Anion Gap BUN Creatinine Estim Creat Clear Calc Estimated GFR Random Glucose Calcium Magnesium Total Bilirubin Direct Bilirubin AST ALT Alkaline Phosphatase Total Protein Albumin Salicylates < 5.0 L Urine Opiates Screen Not Detected Acetaminophen < 1 Ur Barbiturates Screen Not Detected Ur Phencyclidine Scrn Not Detected Ur Amphetamines Screen Not Detected U Benzodiazepines Scrn Not Detected Urine Cocaine Screen Not Detected U Marijuana (THC) Screen Not Detected Ethyl Alcohol < 10 COVID-19 (LINK) COVID-19 Clin Com 09/10/20 09/10/20 07:13 07:13 WBC 6.8 RBC 4.48 L Hgb 13.5 L Hct 39.4 L MCV 87.9 MCH 30.1 MCHC 34.3 RDW 13.4 Plt Count 253 MPV 10.4 Immature Gran % (Auto) 0.3 Neut % (Auto) 55.0 Lymph % (Auto) 31.0 [place] % (Auto) 10.3 Eos % (Auto) 2.5 Baso % (Auto) 0.9 Lymph # (Auto) 2.1 [place] # (Auto) 0.7 Eos # (Auto) 0.2 Baso # (Auto) 0.1 Abs Immat Gran (auto) 0.02 Absolute Neuts (auto) 3.8 Absolute Nucleated RBC 0.000 Nucleated RBC % (auto) 0.0 Sodium 140 Potassium 4.0 Chloride 104 Carbon Dioxide 24 Anion Gap 16 BUN 12 Creatinine 0.87 Estim Creat Clear Calc 118.3 Estimated GFR > 60 Random Glucose 128 H Calcium 8.8 Magnesium Total Bilirubin 0.4 Direct Bilirubin 0.2 AST 10 ALT 20 Alkaline Phosphatase 64 Total Protein 5.8 L Albumin 3.9 Salicylates Urine Opiates Screen Acetaminophen Ur Barbiturates Screen Ur Phencyclidine Scrn Ur Amphetamines Screen U Benzodiazepines Scrn Urine Cocaine Screen U Marijuana (THC) Screen Ethyl Alcohol COVID-19 (LINK) COVID-19 Clin Com Assessment and Plan (1) Suicide attempt: Status: Acute Assessment and Plan: hospital d#2 49yo M with hx EtOH abuse with hx withdrawal sz, opioid use disorder on Suboxone, presented after attempted overdose on ziprasidone, bupropion, trazodone, hydroxyzine, and mirtazapine admitted for observation as per Poison Control + treatment of EtOH withdrawal # EtOH withdrawal - standing + prn lorazepam. give thiamine + folate. # attempted overdose - no specific toxidrome signs and QTc remains normal. medically cleared for inpatient psychiatry # opioid use disorder - continue Suboxone # tobacco abuse - NRT # VTE ppx - LMWH Poison Control was contacted by the ED and recommendation is for 23-hr obser vation and EKGs q2h x2 to ensure QTc normal; avoid phenobarbital for EtOH withdrawal but lorazepam OK. On exam vitals stable, in NAD, no signs of any specific toxidrome, prior EKG QTc 445 ms,
[2020-09-10] MEDS: Buprenorphine/Naloxone 12/3 mg FILM 1 FILM BUCCAL (12:46)
--- NOTE | 2020-09-10 12:50 | PC.NURSE ---
patient is calm. has not has any outbursts or indications of SI. patient medicated per emar.
[2020-09-10] MEDS: Folic Acid 1 MG TABLET PO (13:17)
[2020-09-10] MEDS: Thiamine HCL 100 MG TABLET PO (13:17)
[2020-09-10] MEDS: LORazepam 2 MG/ML VIAL 1 MG IM (13:22)
--- NOTE | 2020-09-10 16:33 | PC.NURSE ---
THIS PT HAS BEEN MEDICALLY CLEARED PER DR TINSLEY AND IS AWAITING A IP BED SEARCH BY CARE TEAM. PT WILL REMAIN HOSPITALIST SERVICE BUT WILL AWAITING PLACEMENT IN ED.
[2020-09-10 16:38] VITALS: BP 116/72; PULSE 78; RESP 18; TEMP 36.6; O2SAT 81
--- NOTE | 2020-09-10 17:09 | PC.NURSE ---
SPOKE WITH RN IN POD FOR BED ASSIGNMENT CHANGE. CONTACTED HOSPITALIST REGARDING [facility]IV[facility] ORDER FOR SYMPTOM MANAGEMENT FOR ETOH WITHDRAWAL, AWAITING RESPONSE
--- NOTE | 2020-09-10 17:19 | PC.NURSE ---
Pt ambulated over from the main ED without issue. Currently resting in bed, no complaints at this time, calm and cooperative.
[2020-09-10] MEDS: LORazepam 1 MG TABLET PO ×2 (17:23→23:22)
--- NOTE | 2020-09-10 17:56 | PC.NURSE ---
IV line removed. Pt currently sitting in bed, eating dinner, calm, no complaints at this time.
[2020-09-10 18:37] VITALS: BP 115/72; PULSE 71; RESP 18; TEMP 36.9; O2SAT 95
--- NOTE | 2020-09-10 18:59 | PC.NURSE ---
Report received. PT is sleeping in bed. Respirations even and unlabored. PT is waiting to be admitted.
[2020-09-10 21:04] VITALS: BP 119/70; PULSE 66; RESP 14; TEMP 36.2; O2SAT 96
[2020-09-10 23:52] VITALS: BP 117/69; PULSE 70; RESP 18; TEMP 36.1; O2SAT 98
[2020-09-11 05:08] VITALS: BP 120/89; PULSE 81; RESP 17; TEMP 36.4; O2SAT 97
[2020-09-11] MEDS: LORazepam 1 MG TABLET PO ×4 (05:16→23:44)
--- NOTE | 2020-09-11 07:17 | PC.NURSE ---
Report received from LELAND Trejo. Pt resting, resp unlabored.
[2020-09-11] MEDS: Thiamine HCL 100 MG TABLET PO (09:25)
[2020-09-11] MEDS: Nicotine 21 MG PATCH.TD24 TRANSDERMA (09:25)
[2020-09-11] MEDS: Folic Acid 1 MG TABLET PO (09:25)
[2020-09-11] MEDS: Gabapentin 400 MG CAPSULE 800 MG PO ×3 (09:25→20:54)
[2020-09-11 09:29] VITALS: BP 100/49; PULSE 72; RESP 13; TEMP 36.7; O2SAT 94
--- NOTE | 2020-09-11 09:31 | PC.NURSE ---
Pt awakened for medications. Denies any s/s withdrawal. reports ongoing depression, SI, but states he is able to come to staff if he feels unsafe.
[2020-09-11 12:00] VITALS: BP 116/71; PULSE 66; RESP 20; O2SAT 96
--- NOTE | 2020-09-11 13:48 | PC.NURSE ---
CARE team w/ pt
[2020-09-11] MEDS: Buprenorphine/Naloxone 12/3 mg FILM 1 FILM BUCCAL (13:54)
--- NOTE | 2020-09-11 14:31 | PC.NURSE ---
Attempted to give report RN unable to receive at this time.
--- NOTE | 2020-09-11 14:51 | PC.NURSE ---
Report given to eDe, RN- floor will send staff to ED to bring pt to floor.
--- NOTE | 2020-09-11 15:26 | PC.NURSE ---
Staff in to bring pt to inpatient unit - pt cooperative w/ transfer, no concerns reported.
[2020-09-11 15:31] VITALS: BP 113/76; PULSE 67; RESP 19; TEMP 35.7; O2SAT 95
[2020-09-11] MEDS: Nicotine Polacrilex 2 MG GUM BUCCAL (16:35)
--- NOTE | 2020-09-11 17:49 | P.PNIM_ITS ---
Subjective Subjective Date of Service: 09/11/20 Interval History: seen and examined PM still reports SI thoughts but no definitive plan reports constipation reports anxiety denies other medical problems ROS General - no fevers or chills Cardiovascular - no chest pain Respiratory - no shortness of breath or cough Abdominal- no abdominal pain, nausea, vomiting, diarrhea Physical Exam Vital Signs: Vital Signs: Last Vital Signs Temp 96.3 F L 09/11/20 15:31 Pulse 67 09/11/20 15:31 Resp 19 09/11/20 15:31 BP 113/76 09/11/20 15:31 Pulse Ox 95 09/11/20 15:31 Body Mass Index 27.8 Const: Other: General - no acute distress, appears comfortable Cardiovascular - regular rate and rhythm, S1-S2 Lungs - normal respiratory effort, clear to auscultation bilaterally, no wheezing Abdomen - soft, nontender, no rebound or guarding Extremities - no edema bilaterally Neuro - awake and alert, no focal deficits Objective Data Current Medications Generic Name Dose Route Start Last Admin Trade Name Freq PRN Reason Stop Dose Admin Buprenorphine/Naloxone 1 film 09/09/20 13:45 09/11/20 13:54 Buprenorphine/Naloxone 12/3 Mg Film BUCCAL 1 film Q24H FOUZIA Administration Docusate Sodium 100 mg 09/11/20 17:47 Docusate Sodium 100 Mg Capsule PO BID PRN Constipation Folic Acid 1 mg 09/10/20 12:45 09/11/20 09:25 Folic Acid 1 Mg Tablet PO 1 mg DAILY FOUZIA Administration Gabapentin 800 mg 09/09/20 15:00 09/11/20 16:09 Gabapentin 400 Mg Capsule PO 800 mg TID FOUZIA Administration Lorazepam 1 mg 09/10/20 17:15 09/11/20 16:35 Lorazepam 1 Mg Tablet PO 1 mg Q6H FOUZIA Administration Lorazepam 1 mg 09/10/20 17:16 Lorazepam 2 Mg/Ml Vial IM Q4H PRN breakthrough alcohol withdrawa Nicotine 21 mg 09/10/20 05:15 09/11/20 09:25 Nicotine 21 Mg Patch.Td24 TRANSDERMA 21 mg DAILY FOUZIA Administration Nicotine Polacrilex 2 mg 09/09/20 12:55 09/11/20 16:35 Nicotine Polacrilex 2 Mg Gum BUCCAL 2 mg TID PRN Administration nicotine withdrawal Polyethylene Glycol 17 gm 09/11/20 17:50 Polyethylene Glycol 3350 17 Gm Powd.Pack PO DAILY FOUZIA Thiamine HCl 100 mg 09/10/20 12:45 09/11/20 09:25 Thiamine Hcl 100 Mg Tablet PO 100 mg DAILY FOUZIA Administration Labs CBC & Chem 7: 09/10/20 07:13 09/10/20 07:13 Assessment and Plan (1) Suicide attempt: Status: Acute Assessment and Plan: 49yo M with hx EtOH abuse with hx withdrawal sz, opioid use disorder on Suboxone, presented after attempted overdose on ziprasidone, bupropion, tra zodone, hydroxyzine, and mirtazapine admitted for observation as per Poison Control + treatment of EtOH withdrawal # EtOH withdrawal - standing + prn lorazepam. give thiamine + folate # attempted overdose - no specific toxidrome signs and QTc remains normal. medically cleared for inpatient psychiatry 1:[address] # opioid use disorder - continue Suboxone # tobacco abuse - NRT # VTE ppx - LMWH pt medically cleared. await N eval to determine LOC assessment. Anticipite he will need inpatient psych
[2020-09-11] MEDS: polyethylene glycoL 3350 17 GM POWD.PACK PO (18:27)
--- NOTE | 2020-09-11 19:13 | PC.NURSE ---
Pt scoring 14 on CIWA scale. Pt clinically pt does have small amount of tremors when hands raised, proxymal sweating, and mild anxiety. Pt answered yes to having auditory and visual symptoms, along with nausea and headache. Dr. Ruelas made aware of score. Pt given scheduled Ativan. Pt has no complaints at this time.
[2020-09-11 19:17] VITALS: BP 106/67; PULSE 67; RESP 19; TEMP 36.1; O2SAT 96
[2020-09-11] MEDS: traZODone HCL 50 MG TABLET PO (20:54)
[2020-09-11 23:15] VITALS: BP 127/79; PULSE 74; RESP 20; TEMP 36.2; O2SAT 97
[2020-09-12 03:17] VITALS: BP 100/60; PULSE 66; RESP 17; TEMP 36.2; O2SAT 96
[2020-09-12] MEDS: LORazepam 1 MG TABLET PO ×2 (06:00→12:35)
[2020-09-12 06:57] LABS: Hematocrit 39.9 % (42-52); Hemoglobin 13.3 g/dl (14.0-18.0); Mean Corpuscular HGB Conc 33.3 g/dl (31.0-36.0); Mean Corpuscular Hemoglobin 29.9 pg (27.0-33.0); Mean Corpuscular Volume 89.7 fL (80-98); Mean Platelet Volume 10.7 fL (9.4-12.4); Platelet Count 233 X10*3/uL (160-400); Red Blood Count 4.45 X10*6/uL (4.60-5.80); Red Cell Distribution Width 13.2 % (11.0-16.0); White Blood Count 5.6 X10*3/uL (4.8-10.8)
[2020-09-12 07:15] LABS: Anion Gap 10 (12-20); Blood Urea Nitrogen 10 mg/dL (9-16); C Reactive Protein 0.14 mg/dL (< or = 0.50); Carbon Dioxide 30 mmol/L (22-29); Chloride 105 mmol/L (96-108); Creatinine Clr Calc Pharmacy 127.1; Estimated Glomerular Filt Rate > 60; Glucose Random 97 mg/dL (60-115); Potassium 4.2 mmol/L (3.3-5.1); Sodium 141 mmol/L (135-145)
[2020-09-12 07:42] VITALS: BP 116/60; PULSE 63; RESP 17; TEMP 36.9; O2SAT 95
[2020-09-12] MEDS: Nicotine 21 MG PATCH.TD24 TRANSDERMA (08:54)
[2020-09-12] MEDS: Gabapentin 400 MG CAPSULE 800 MG PO ×2 (08:54→14:08)
[2020-09-12] MEDS: polyethylene glycoL 3350 17 GM POWD.PACK PO (08:54)
[2020-09-12] MEDS: Thiamine HCL 100 MG TABLET PO (08:54)
[2020-09-12] MEDS: Docusate Sodium 100 MG CAPSULE PO (08:54)
[2020-09-12] MEDS: Folic Acid 1 MG TABLET PO (08:54)
--- NOTE | 2020-09-12 09:23 | P.PNIM_ITS ---
Subjective Subjective Date of Service: 09/12/20 Interval History: seen and examined this AM reports withdrawal symptoms are minimal, just having mild tremors denies nausea/vomiting this AM still endorses SI tells me he was seen by N and they are looking for a bed for him ROS General - no fevers or chills Cardiovascular - no chest pain Respiratory - no shortness of breath or cough Abdominal- no abdominal pain, nausea, vomiting, diarrhea Physical Exam Vital Signs: Vital Signs: Last Vital Signs Temp 98.5 F 09/12/20 07:42 Pulse 63 09/12/20 07:42 Resp 17 09/12/20 07:42 BP 116/60 09/12/20 07:42 Pulse Ox 95 09/12/20 07:42 Body Mass Index 27.8 Const: General: cooperative, healthy appearing and no acute distress Eyes: Pupils: Equal, round and reactive pupils present Neck: Neck: Yes supple Chest: Chest palpation & inspection: normal inspection of the chest Resp: Effort & Inspection: normal respiratory effort and able to speak in complete sentences Auscultation: clear to auscultation bilaterally Cardio: Jugular venous distension: no JVD Rhythm: regular rhythm Heart sounds: S1 normal heart sound present and S2 normal heart sound present GI: Inspection: Yes normal to inspection Palpation (GI): Soft to palpation Auscultation: normal bowel sounds Skin: General skin exam: no rashes or lesions noted Neuro: Cranial nerves: Yes Equal, round and reactive pupils present Motor exam (neuro): Tremors during motor activity present (mild bilateral UE, improved) and Other motor observations present ( no motor deficit) Objective Data Current Medications Generic Name Dose Route Start Last Admin Trade Name Nanda PRN Reason Stop Dose Admin Buprenorphine/Naloxone 1 film 09/09/20 13:45 09/11/20 13:54 Buprenorphine/Naloxone 12/3 Mg Film BUCCAL 1 film Q24H FOUZIA Administration Docusate Sodium 100 mg 09/11/20 17:47 09/12/20 08:54 Docusate Sodium 100 Mg Capsule PO 100 mg BID PRN Administration Constipation Folic Acid 1 mg 09/10/20 12:45 09/12/20 08:54 Folic Acid 1 Mg Tablet PO 1 mg DAILY FOUZIA Administration Gabapentin 800 mg 09/09/20 15:00 09/12/20 08:54 Gabapentin 400 Mg Capsule PO 800 mg TID FOUZIA Administration Lorazepam 1 mg 09/10/20 17:15 09/12/20 06:00 Lorazepam 1 Mg Tablet PO 1 mg Q6H FOUZIA Administration Lorazepam 1 mg 09/10/20 17:16 Lorazepam 2 Mg/Ml Vial IM Q4H PRN breakthrough alcohol withdrawa Nicotine 21 mg 09/10/20 05:15 09/12/20 08:54 Nicotine 21 Mg Patch.Td24 TRANSDERMA 21 mg DAILY FOUZIA Administration Nicotine Polacrilex 2 mg 09/09/20 12:55 09/11/20 16:35 Nicotine Polacrilex 2 Mg Gum BUCCAL 2 mg TID PRN Administration nicotine withdrawal Polyethylene Glycol 17 gm 09/11/20 17:50 09/12/20 08:54 Polyethylene Glycol 3350 17 Gm Powd.Pack PO 17 gm DAILY FOUZIA Administration Thiamine HCl 100 mg 09/10/20 12:45 09/12/20 08:54 Thiamine Hcl 100 Mg Tablet PO 100 mg DAILY FOUZIA Administration Trazodone HCl 50 mg 09/11/20 21:00 09/11/20 20:54 Trazodone Hcl 50 Mg Tablet PO 50 mg BEDTIME FOUZIA Administration Labs CBC & Chem 7: 09/12/20 06:38 09/12/20 06:38 Assessment and Plan (1) Suicide attempt: Status: Acute Assessment and Plan: 49yo M with hx EtOH abuse with hx withdrawal sz, opioid use disorder on Suboxon e, presented after attempted overdose on ziprasidone, bupropion, trazodone, hydroxyzine, and mirtazapine admitted for observation as per Poison Control + treatment of EtOH withdrawal # EtOH withdrawal withdrawal esstentially resolved, mild tremors for which ativan is helping continue the same # attempted overdose - no specific toxidrome signs and QTc remains normal. medically cleared for inpatient psychiatry 1:[address] # opioid use disorder - continue Suboxone # tobacco abuse - NRT # VTE ppx - LMWH medically stable for transfer to inpatient psych unit when bed available
--- NOTE | 2020-09-12 09:33 | MHC.CM.PN ---
CM CONTACTED EDDIE FROM CARE TEAM AT 9:27AM, PER CARE TEAM PT HAS BEEN ACCEPTED TO [facility] TODAY PENDING A DISCHARGE.
[2020-09-12 11:23] VITALS: BMI 27.8
[2020-09-12 11:26] VITALS: BP 109/60; PULSE 61; RESP 18; TEMP 36.1; O2SAT 96
--- NOTE | 2020-09-12 11:28 | MHC.CLN ---
RE: CONSULT PT REPORTS UBW 220# AND HE LOST 30# WITHIN A FEW WEEKS PREVIOUS ADMISSION 12/02/19 REVEALS WT 210# PT WITH NO S/S OF MALNUTRITION, HOWEVER PT STATES HE WOULD LIKE TO GAIN THE WT BACK PT RECEPTIVE TO ENSURE SUPPLEMENTS-WILL START 8OZ ENSURE TID SUPPLEMENT TO PROVIDE 1020KCALS, 60G PROTEIN SEE ALSO CLINICAL NUTRITION ASSESSMENT
--- NOTE | 2020-09-12 13:32 | P.DS_ITS ---
DS: Providers Provider Date of Service: 09/12/20 Date of admission: 09/11/20 11:08 Primary care physician: Saadia Shannon NP Consults: 09/10/20 09:02 Consult to Care Team Stat Comment: Reason for consultation: overdose/suicide attempt; medically cleared Consult to Crisis Stat Reason for consultation: overdose/suicide attempt; medically cleared 09/11/20 10:05 Consult for Sitter Routine Reason for consultation: SI DS: Diagnosis Discharge Diagnosis (1) Suicide attempt: Status: Acute (2) Alcohol withdrawal: Status: Acute DS: Medications Discharge Medications Home Medications: Home Medications Medication Instructions Recorded Confirmed buprenorphine-naloxone [Suboxone] 1 film BUCCAL Q24H 09/09/20 09/09/20 bupropion HCl [Wellbutrin XL] 1 tab PO QAM 09/09/20 09/09/20 gabapentin 1 tab PO TID 09/09/20 09/09/20 hydroxyzine pamoate 50 cap PO TID PRN 09/09/20 09/09/20 mirtazapine 1 tab PO BEDTIME 09/09/20 09/09/20 trazodone 1 tab PO BEDTIME 09/09/20 09/09/20 ziprasidone HCl 1 cap PO BID 09/09/20 09/09/20 Previous Rx's Medication Instructions Recorded lorazepam 1 mg PO Q6H #1 tab 09/12/20 DS: Summary Hospital Course Hospital Course: HPI: 49-year-old male with a past medical history of anxiety, depression, insomnia, alcohol abuse, former substance use on Suboxone here with complaints of suicide attempt yesterday. Patient tells me that he has been feeling increasingly d epressed and suicidal and took medications to harm himself yesterday at 16:00. Patient arrives with empty bottles. He tells me he filled his medications on 08/15/2020 and has been taking them as prescribed until yesterday. He arrives with empty bottles of Geodon, Wellbutrin, Remeron, trazodone and hydroxyzine. He tells me he is feeling suicidal. He denies homicidal ideations or hallucinations. He is complaining of feeling tremulous and diaphoretic. He tells me he drinks 12-18 beers per day and his last drink was last evening. He does have a history of seizures secondary to alcohol withdrawal. He tells me that he also has a previous history of substance abuse but is currently on Suboxone. Poison Control was contacted and recommended serial EKG checks to monitor QTC. They also recommended avoiding phenobarb to treat withdrawal and instead use benzos. Patient was started on scheduled Ativan and at the time of this note, has no major withdrawal symptoms. his EKGs remained normal and QTC normal as well. Once medically cleared he was evaluated by Behavioral Health and deemed a candidate for inpatient psych which he will be transferred to. Would recommend continue Ativan oral and p.r.n. as needed. Time Spent with Patient Time attestation: Total time spent providing and/or coordinating discharge se rvices: Discharge coordination time: Greater than 30 minutes Physical Exam Vital Signs: Vital Signs: Last Vital Signs Temp 96.9 F 09/12/20 11:26 Pulse 61 09/12/20 11:26 Resp 18 09/12/20 11:26 BP 109/60 09/12/20 11:26 Pulse Ox 96 09/12/20 11:26 Body Mass Index 27.8 Const: Other: General - no acute distress, appears comfortable Cardiovascular - regular rate and rhythm, S1-S2 Lungs - normal respiratory effort, clear to auscultation bilaterally, no wheezing Abdomen - soft, nontender, no rebound or guarding Extremities - no edema bilaterally Neuro - awake and alert, no focal deficits DS: Data Data Completed and Pending Labs on day of discharge: Laboratory Results - last 24 hr 09/12/20 09/12/20 06:38 06:38 WBC 5.6 RBC 4.45 L Hgb 13.3 L Hct 39.9 L MCV 89.7 MCH 29.9 MCHC 33.3 RDW 13.2 Plt Count 233 MPV 10.7 Absolute Nucleated RBC 0.000 Nucleated RBC % (auto) 0.0 Sodium 141 Potassium 4.2 Chloride 105 Carbon Dioxide 30 H Anion Gap 10 L BUN 10 Creatinine 0.81 Estim Creat Clear Calc 127.1 Estimated GFR > 60 Random Glucose 97 Calcium 9.0 C-Reactive Protein 0.14 Discharge Plan Discharge Patient Disposition: Xfer Psychiatric Hosp Referrals: Saadia Shannon NP [Primary Care Provider] - 1 Week Discharge Medications: New lorazepam 1 mg Tablet 1 mg PO Q6H Qty: 1 RF: 0 Held hydroxyzine pamoate 50 mg capsule 50 cap PO TID PRN (Reason: anxiety) RF: 0 Hold Instructions: Resume on 09/19/20. Resume per inpatient psych recs gabapentin 800 mg tablet 1 tab PO TID RF: 0 Hold Instructions: Resume on 09/19/20. Resume per inpatient psych recs mirtazapine 30 mg tablet 1 tab PO BEDTIME RF: 0 Hold Instructions: Resume on 09/19/20. Resume per inpatient psych recs trazodone 150 mg tablet 1 tab PO BEDTIME RF: 0 Hold Instructions: Resume on 09/19/20. Resume per inpatient psych recs ziprasidone HCl 40 mg capsule 1 cap PO BID RF: 0 Hold Instructions: Resume on 09/19/20. Resume per inpatient psych recs bupropion HCl [Wellbutrin XL] 300 mg tablet extended release 24 hr 1 tab PO QAM RF: 0 Hold Instructions: Resume on 09/19/20. Resume per inpatient psych recs buprenorphine-naloxone [Suboxone] 12-3 mg Film 1 film BUCCAL Q24H RF: 0 Hold Instructions: Resume on 09/19/20. Resume per inpatient psych recs Discharge Orders: Discharge Order (Routine); Ordered 09/12/20 Ordered By: Ramón Ruelas Diet: advance to usual diet Activity on Discharge: As tolerated Stand Alone Forms: Patient Portal Discharge page Care Plan Goals: To stay healthy and out of the hospital. Health Concerns: Suicidal Ideation Plan of Treatment: Inpatient psych admission
[2020-09-12] MEDS: Buprenorphine/Naloxone 12/3 mg FILM 1 FILM BUCCAL (14:08)
== END 2020-09-12 15:41 | DRG 817 ==
LOC: HO.ED 13:13 → HO.EDOVER 17:50 → HO.S3 09-11 14:15
PROVIDERS: Nurse Practitioner Acute Care; Nurse Practitioner Family; Admitting Provider Family Medicine; Emergency Provider Emergency Medicine; PCP Nurse Practitioner Family; Visit Provider Family Medicine
DX: T43.592A Poisoning by other antipsychotics and neuroleptics, intentional self-harm, initial encounter (principal); R45.851 Suicidal ideations; F11.20 Opioid dependence, uncomplicated; F17.210 Nicotine dependence, cigarettes, uncomplicated; F32.9 Major depressive disorder, single episode, unspecified; T43.292A Poisoning by other antidepressants, intentional self-harm, initial encounter; F10.139 Alcohol abuse with withdrawal, unspecified; T43.022A Poisoning by tetracyclic antidepressants, intentional self-harm, initial encounter; T43.212A Poisoning by selective serotonin and norepinephrine reuptake inhibitors, intentional self-harm, initial encounter; Y92.9 Unspecified place or not applicable; Z71.6 Tobacco abuse counseling; Z20.822 Contact with and (suspected) exposure to COVID-19; Z79.899 Other long term (current) drug therapy
CPT/HCPCS: 36415; 80048; 80076; 80143; 80179; 80307; 80320; 83735; 85025; 85027; 86140; 87635; 93005; 96372; 96374; 96375; 99285; J1650; J2060; J2405

== ENCOUNTER 2020-09-12 16:02 | Inpatient (IN) | payer OTHER, MEDICAID, SELFPAY ==
[2020-09-12 16:30] VITALS: BP 129/76; PULSE 90; RESP 17; TEMP 36.6; O2SAT 95
[2020-09-12] MEDS: LORazepam 1 MG TABLET PO (17:43)
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
[2020-09-12] MEDS: Gabapentin 600 MG TABLET PO (21:17)
[2020-09-12] MEDS: traZODone HCL 50 MG TABLET PO (21:17)
[2020-09-13] MEDS: LORazepam 1 MG TABLET PO ×2 (00:31→06:12)
[2020-09-13 06:00] VITALS: BP 111/79; PULSE 79; RESP 18; TEMP 36; O2SAT 97
[2020-09-13] MEDS: Gabapentin 600 MG TABLET PO ×3 (08:03→21:09)
[2020-09-13] MEDS: Nicotine 21 MG PATCH.TD24 TRANSDERMA (08:06)
[2020-09-13] MEDS: buPROPion HCl XL 150 MG TAB.ER.24H PO (11:26)
[2020-09-13] MEDS: Buprenorphine/Naloxone 12/3 mg FILM 1 FILM SUBLINGUAL (11:27)
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
[2020-09-13] MEDS: hydrOXYzine HCL 25 MG TABLET PO (13:21)
[2020-09-13 19:42] VITALS: BP 142/82; PULSE 97; TEMP 36.4
[2020-09-13] MEDS: Mirtazapine 15 MG TABLET PO (21:10)
[2020-09-13] MEDS: traZODone HCL 50 MG TABLET 150 MG PO (21:10)
[2020-09-14] MEDS: LORazepam 1 MG TABLET PO (04:31)
[2020-09-14 06:00] VITALS: BP 115/82; PULSE 102; RESP 16; TEMP 35.9; O2SAT 94
[2020-09-14] MEDS: Gabapentin 600 MG TABLET PO ×3 (08:32→20:02)
[2020-09-14] MEDS: Nicotine 21 MG PATCH.TD24 TRANSDERMA (08:32)
[2020-09-14] MEDS: Buprenorphine/Naloxone 12/3 mg FILM 1 FILM SUBLINGUAL (08:57)
[2020-09-14] MEDS: buPROPion HCl XL 150 MG TAB.ER.24H PO (09:17)
--- NOTE | 2020-09-14 12:02 | P.PNPSI_ITS ---
Subjective Subjective Date of Service: 09/14/20 Reason For Visit: Major Depressive D/O Subjective Notes: Conditional Voluntary Interim History: The patient reported feeling depressed, he slept better last night but he has been secclusive, not participating in groups. He was able to contract for safety. Medication Compliance: Yes Side effects from medications: No Attending Groups: No Review of Systems Review of Systems Yes all other systems are reviewed and are negative Mental Status Exam Mental Status Exam Patient Appearance: Well Grooomed Patient Orientation: Person, Place, Time and Situation Level of Consciousness: Awake and Appropriate Patient Behavior: Appropriate and Cooperative Mood Description: Calm and Withdrawn Affect Description: Constricted and Depressed Patient Cognition Impaired: No Ability to Follow Directions: Good Speech Pattern: Clear Memory Description: Intact Hallucinations: None Delusions: Not Present Thought Process: Goal Oriented Thought Content: positive for [place] Depressive Symptoms: Increased Anxiety and Difficulty Sleeping Judgement: Fair Diagnostics Vital Signs (24Hr): Vital Signs - 24 hr 09/13/20 19:42 09/14/20 06:00 Temperature 97.6 F 96.6 F L Pulse Rate 97 102 H Respiratory Rate 16 Blood Pressure 142/82 H 115/82 Pulse Oximetry 94 Medications Medications Current Medications Generic Name Dose Route Start Last Admin Trade Name Freq PRN Reason Stop Dose Admin Acetaminophen 650 mg 09/12/20 16:06 Acetaminophen 325 Mg Tablet PO Q6H PRN Headache/Pain Mild Scale (1-3) Al Hydroxide/Mg Hydroxide 30 ml 09/12/20 16:06 Magnesium Hydrox/Alum Hydrox 30 Ml Oral.Susp PO Q6H PRN Heartburn/Nausea Buprenorphine/Naloxone 1 film 09/14/20 09:00 09/14/20 08:57 Buprenorphine/Naloxone 12/3 Mg Film SUBLINGUAL 1 film DAILY FOUZIA Administration Bupropion HCl 150 mg 09/14/20 09:00 09/14/20 09:17 Bupropion Hcl Xl 150 Mg Tab.Er.24h PO 150 mg DAILY FOUZIA Administration Gabapentin 600 mg 09/12/20 21:00 09/14/20 08:32 Gabapentin 600 Mg Tablet PO 600 mg TID FOUZIA Administration Hydroxyzine HCl 25 mg 09/13/20 11:05 09/13/20 13:21 Hydroxyzine Hcl 25 Mg Tablet PO 25 mg Q8H PRN Administration Anxiety Magnesium Hydroxide 30 ml 09/12/20 16:06 Milk Of Magnesia 30 Ml Oral.Susp PO DAILY PRN Constipation Mirtazapine 15 mg 09/13/20 21:00 09/13/20 21:10 Mirtazapine 15 Mg Tablet PO 15 mg BEDTIME FOUZIA Administration Nicotine 21 mg 09/13/20 09:00 09/14/20 08:32 Nicotine 21 Mg Patch.Td24 TRANSDERMA 21 mg DAILY FOUZIA Administration Nicotine Polacrilex 2 mg 09/12/20 16:06 Nicotine Polacrilex 2 Mg Gum BUCCAL Q2H PRN Nicotine Cravings Trazodone HCl 150 mg 09/13/20 21:00 09/13/20 21:10 Trazodone Hcl 50 Mg Tablet PO 150 mg BEDTIME FOUZIA Administration Allergies Allergies Allergy/AdvReac Type Severity Reaction Status Date / Time No Known Allergies Allergy Unverified 02/10/20 19:52 [No Known Allergies*] Assessment & Plan Assessment & Plan (1) Mood disorder: Status: Acute Code(s): F39 - Unspecified mood [affective] disorder Assessment and Plan: Adult male with previous admissions for suicidal ideation, with dysphoria and substance abuse, with poor social support. Admitted after suicidal attempt. Plan: 1. Keep antidepressants. 2. D/C Ativan. 3. Gather collateral. 4. Referral to the [facility] in process (2) Alcohol use disorder: Status: Acute Assessment and Plan: No need of CIWA since medicine cleared him up (3) Opioid use disorder: Status: Acute Code(s): F11.99 - Opioid use, unspecified with unspecified opioid-induced disorder Assessment and Plan: Continue Suboxone Greater than 50% of the session was spent on counseling and/or coordination of care Reason for contiued inpatient stay Substantial Risk for: harm to self, inability to function and rapid decompensation
[2020-09-14 18:00] VITALS: BP 112/59; PULSE 76; TEMP 36.6
[2020-09-14] MEDS: hydrOXYzine HCL 25 MG TABLET PO (20:02)
[2020-09-14] MEDS: Mirtazapine 15 MG TABLET PO (20:02)
[2020-09-14] MEDS: traZODone HCL 50 MG TABLET 150 MG PO (20:02)
[2020-09-15 08:00] VITALS: BP 116/78; PULSE 72; RESP 16; TEMP 36.4; O2SAT 96
[2020-09-15] MEDS: Gabapentin 600 MG TABLET PO ×3 (08:48→20:13)
[2020-09-15] MEDS: Nicotine 21 MG PATCH.TD24 TRANSDERMA (08:48)
[2020-09-15] MEDS: buPROPion HCl XL 150 MG TAB.ER.24H PO (08:48)
[2020-09-15] MEDS: Buprenorphine/Naloxone 12/3 mg FILM 1 FILM SUBLINGUAL (08:49)
--- NOTE | 2020-09-15 10:55 | HO.PSYCHPN ---
Subjective Subjective Date of Service: 09/15/20 Reason For Visit: Major Depressive D/O Subjective Notes: Conditional Voluntary Interim History: The patient has been secclussive, has not attended to any groups. He was assessed at bedside and he complained of anxiety and requested benzodiazepines. I explained that he came without benzodiazepines and the use of that class of medication would jeopardize his referrals. Agreed to increase Remeron for depression and increase of Vistaril up to 50 mg po tid PRN. Medication Compliance: Yes Side effects from medications: No Attending Groups: No Review of Systems Review of Systems Yes all other systems are reviewed and are negative Mental Status Exam Mental Status Exam Patient Appearance: Well Grooomed Patient Orientation: Person, Place, Time and Situation Level of Consciousness: Awake and Appropriate Patient Behavior: Guarded Mood Description: Calm and Depressed Affect Description: Constricted Patient Cognition Impaired: No Ability to Follow Directions: Good Speech Pattern: Clear Memory Description: Intact Delusions: Not Present Thought Process: Goal Oriented Thought Content: positive for Intact Judgement: Fair Diagnostics Vital Signs (24Hr): Vital Signs - 24 hr 09/14/20 18:00 Temperature 98 F Pulse Rate 76 Blood Pressure 112/59 L Medications Medications Current Medications Generic Name Dose Route Start Last Admin Trade Name Freq PRN Reason Stop Dose Admin Acetaminophen 650 mg 09/12/20 16:06 Acetaminophen 325 Mg Tablet PO Q6H PRN Headache/Pain Mild Scale (1-3) Al Hydroxide/Mg Hydroxide 30 ml 09/12/20 16:06 Magnesium Hydrox/Alum Hydrox 30 Ml Oral.Susp PO Q6H PRN Heartburn/Nausea Buprenorphine/Naloxone 1 film 09/14/20 09:00 09/15/20 08:49 Buprenorphine/Naloxone 12/3 Mg Film SUBLINGUAL 1 film DAILY FOUZIA Administration Bupropion HCl 150 mg 09/14/20 09:00 09/15/20 08:48 Bupropion Hcl Xl 150 Mg Tab.Er.24h PO 150 mg DAILY FOUZIA Administration Gabapentin 600 mg 09/12/20 21:00 09/15/20 08:48 Gabapentin 600 Mg Tablet PO 600 mg TID FOUZIA Administration Hydroxyzine HCl 25 mg 09/13/20 11:05 09/14/20 20:02 Hydroxyzine Hcl 25 Mg Tablet PO 25 mg Q8H PRN Administration Anxiety Magnesium Hydroxide 30 ml 09/12/20 16:06 Milk Of Magnesia 30 Ml Oral.Susp PO DAILY PRN Constipation Mirtazapine 15 mg 09/13/20 21:00 09/14/20 20:02 Mirtazapine 15 Mg Tablet PO 15 mg BEDTIME FOUZIA Administration Nicotine 21 mg 09/13/20 09:00 09/15/20 08:48 Nicotine 21 Mg Patch.Td24 TRANSDERMA 21 mg DAILY FOUZIA Administration Nicotine Polacrilex 2 mg 09/12/20 16:06 Nicotine Polacrilex 2 Mg Gum BUCCAL Q2H PRN Nicotine Cravings Trazodone HCl 150 mg 09/13/20 21:00 09/14/20 20:02 Trazodone Hcl 50 Mg Tablet PO 150 mg BEDTIME FOUZIA Administration Allergies Allergies Allergy/AdvReac Type Severity Reaction Status Date / Time No Known Allergies Allergy Unverified 02/10/20 19:52 [No Known Allergies*] Assessment & Plan Assessment & Plan (1) Mood disorder: Status: Acute Code(s): F39 - Unspecified mood [affective] disorder Assessment and Plan: Adult male with previous admissions for suicidal ideation, with dysphoria and substance abuse, with poor social support. Admitted after suicidal attempt. Plan: 1. Keep antidepressants. 2. D/C Ativan. 3. Gather collateral. 4. Referral to the [facility] in process (2) Alcohol use disorder: Status: Acute Assessment and Plan: No need of CIWA since medicine cleared him up (3) Opioid use disorder: Status: Acute Code(s): F11.99 - Opioid use, unspecified with unspecified opioid-induced disorder Assessment and Plan: Continue Suboxone Greater than 50% of the session was spent on counseling and/or coordination of care Reason for contiued inpatient stay Substantial Risk for: harm to self, inability to function and med/psych decompensation
[2020-09-15 18:00] VITALS: BP 124/72; PULSE 75; RESP 18; TEMP 36.5; O2SAT 97
[2020-09-15] MEDS: chlorproMAZINE HCl 100 MG TABLET PO (18:21)
[2020-09-15] MEDS: traZODone HCL 50 MG TABLET 150 MG PO (20:14)
[2020-09-15] MEDS: Mirtazapine 30 MG TABLET PO (20:14)
[2020-09-15] MEDS: hydrOXYzine HCL 25 MG TABLET 50 MG PO (20:15)
[2020-09-16 06:46] VITALS: BP 94/61; PULSE 70; TEMP 37.1
[2020-09-16] MEDS: Nicotine 21 MG PATCH.TD24 TRANSDERMA (09:06)
[2020-09-16] MEDS: buPROPion HCl XL 150 MG TAB.ER.24H PO (09:07)
[2020-09-16] MEDS: chlorproMAZINE HCl 100 MG TABLET PO ×2 (09:07→18:11)
[2020-09-16] MEDS: Buprenorphine/Naloxone 12/3 mg FILM 1 FILM SUBLINGUAL (09:07)
[2020-09-16] MEDS: Gabapentin 600 MG TABLET PO ×3 (09:07→20:19)
[2020-09-16] MEDS: hydrOXYzine HCL 25 MG TABLET 50 MG PO (16:37)
--- NOTE | 2020-09-16 16:52 | P.PNPSI_ITS ---
Subjective Subjective Date of Service: 09/16/20 Reason For Visit: Major Depressive D/O Subjective Notes: Conditional Voluntary Interim History: Cam was able to sleep reasonably well with the use of thorazine and as a result his mood was notably improved. Medication Compliance: Yes Side effects from medications: No Attending Groups: No Review of Systems Acute medical concerns: No Medical Review of Systems: unchanged Mental Status Exam Mental Status Exam Patient Appearance: Well Grooomed Patient Orientation: Person, Place, Time and Situation Level of Consciousness: Awake and Appropriate Patient Behavior: Guarded Mood Description: Calm and Depressed Affect Description: Constricted Patient Cognition Impaired: No Ability to Follow Directions: Good Speech Pattern: Clear Memory Description: Intact Delusions: Not Present Thought Process: Goal Oriented Thought Content: positive for Intact, negative for Suicidal Ideation and negative for Homicidal Ideation Judgement: Fair Diagnostics Vital Signs (24Hr): Vital Signs - 24 hr 09/15/20 18:00 09/16/20 06:46 Temperature 97.7 F 98.7 F Pulse Rate 75 70 Respiratory Rate 18 Blood Pressure 124/72 94/61 Pulse Oximetry 97 Medications Medications Current Medications Generic Name Dose Route Start Last Admin Trade Name Freq PRN Reason Stop Dose Admin Acetaminophen 650 mg 09/12/20 16:06 Acetaminophen 325 Mg Tablet PO Q6H PRN Headache/Pain Mild Scale (1-3) Al Hydroxide/Mg Hydroxide 30 ml 09/12/20 16:06 Magnesium Hydrox/Alum Hydrox 30 Ml Oral.Susp PO Q6H PRN Heartburn/Nausea Buprenorphine/Naloxone 1 film 09/14/20 09:00 09/16/20 09:07 Buprenorphine/Naloxone 12/3 Mg Film SUBLINGUAL 1 film DAILY FOUZIA Administration Bupropion HCl 150 mg 09/14/20 09:00 09/16/20 09:07 Bupropion Hcl Xl 150 Mg Tab.Er.24h PO 150 mg DAILY FOUZIA Administration Chlorpromazine HCl 100 mg 09/15/20 17:56 09/16/20 09:07 Chlorpromazine Hcl 100 Mg Tablet PO 100 mg Q8H PRN Administration Anxiety Gabapentin 600 mg 09/12/20 21:00 09/16/20 14:09 Gabapentin 600 Mg Tablet PO 600 mg TID FOUZIA Administration Hydroxyzine HCl 50 mg 09/15/20 10:55 09/16/20 16:37 Hydroxyzine Hcl 25 Mg Tablet PO 50 mg Q8H PRN Administration Anxiety Magnesium Hydroxide 30 ml 09/12/20 16:06 Milk Of Magnesia 30 Ml Oral.Susp PO DAILY PRN Constipation Mirtazapine 30 mg 09/15/20 21:00 09/15/20 20:14 Mirtazapine 30 Mg Tablet PO 30 mg BEDTIME FOUZIA Administration Nicotine 21 mg 09/13/20 09:00 09/16/20 09:06 Nicotine 21 Mg Patch.Td24 TRANSDERMA 21 mg DAILY FOUZIA Administration Nicotine Polacrilex 2 mg 09/12/20 16:06 Nicotine Polacrilex 2 Mg Gum BUCCAL Q2H PRN Nicotine Cravings Trazodone HCl 150 mg 09/13/20 21:00 09/15/20 20:14 Trazodone Hcl 50 Mg Tablet PO 150 mg BEDTIME FOUZIA Administration Allergies Allergies Allergy/AdvReac Type Severity Reaction Status Date / Time No Known Allergies Allergy Unverified 02/10/20 19:52 [No Known Allergies*] Assessment & Plan Assessment & Plan (1) Mood disorder: Status: Acute Code(s): F39 - Unspecified mood [affective] disorder (2) Alcohol use disorder: Status: Acute (3) Opioid use disorder: Status: Acute Code(s): F11.99 - Opioid use, unspecified with unspecified opioid-induced disorder Assessment and Plan: Adult male with previous admissions for suicidal ideation, with dysphoria and substance abuse, with poor social support. Admitted after suicidal attempt. Plan: 1. Keep antidepressants. 2. D/C Ativan. 3. Gather collateral. 4. Referral to the [facility] in process No need of CIWA since medicine cleared him up Continue Suboxone CT treatment plan without change Greater than 50% of the session was spent on counseling and/or coordination of care Patient educated on: diagnosis, medication risk/benefits and substance abuse Informed Consent: further education needed Reason for contiued inpatient stay Substantial Risk for: inability to function and rapid decompensation
[2020-09-16] MEDS: Nicotine Polacrilex 2 MG GUM BUCCAL (18:16)
[2020-09-16 19:20] VITALS: BP 133/67; PULSE 79; TEMP 36.7
[2020-09-16] MEDS: Mirtazapine 30 MG TABLET PO (20:18)
[2020-09-16] MEDS: traZODone HCL 50 MG TABLET 150 MG PO (20:18)
[2020-09-16] MEDS: LORazepam 1 MG TABLET PO (22:23)
--- NOTE | 2020-09-16 22:29 | PC.NURSE ---
Patient continued to have anxiety despite prn Thorazine. Dr. Keyes was [place] texted and telephone order was obtained for Lorazepam 1 mg po. q 6 hours prn anxiety/ restlessness.
[2020-09-17] MEDS: hydrOXYzine HCL 25 MG TABLET 50 MG PO ×2 (03:16→20:07)
[2020-09-17] MEDS: LORazepam 1 MG TABLET PO ×4 (04:54→23:32)
[2020-09-17 05:00] VITALS: BP 107/65; PULSE 93; RESP 20; TEMP 35.9; O2SAT 95
[2020-09-17] MEDS: Buprenorphine/Naloxone 12/3 mg FILM 1 FILM SUBLINGUAL (08:44)
[2020-09-17] MEDS: Gabapentin 600 MG TABLET PO ×3 (08:44→20:07)
[2020-09-17] MEDS: buPROPion HCl XL 150 MG TAB.ER.24H PO (08:44)
[2020-09-17] MEDS: Nicotine 21 MG PATCH.TD24 TRANSDERMA (08:44)
--- NOTE | 2020-09-17 17:29 | HO.PSYCHPN ---
Subjective Subjective Date of Service: 09/17/20 Reason For Visit: Major Depressive D/O Subjective Notes: Conditional Voluntary Interim History: Cam reports that his current medication are helpful. He is calmer and finds that he is more able to think straight. He was able to sleep better. Medication Compliance: Yes Side effects from medications: No Attending Groups: No Review of Systems Acute medical concerns: No Medical Review of Systems: unchanged Mental Status Exam Mental Status Exam Patient Appearance: Well Grooomed Patient Orientation: Person, Place, Time and Situation Level of Consciousness: Awake and Appropriate Patient Behavior: Guarded Mood Description: Calm and Depressed Affect Description: Constricted Patient Cognition Impaired: No Ability to Follow Directions: Good Speech Pattern: Clear Memory Description: Intact Delusions: Not Present Thought Process: Goal Oriented Thought Content: positive for Intact, negative for Suicidal Ideation and negative for Homicidal Ideation Judgement: Fair Diagnostics Vital Signs (24Hr): Vital Signs - 24 hr 09/16/20 19:20 09/17/20 05:00 Temperature 98.1 F 96.7 F L Pulse Rate 79 93 Respiratory Rate 20 Blood Pressure 133/67 107/65 Pulse Oximetry 95 Medications Medications Current Medications Generic Name Dose Route Start Last Admin Trade Name Freq PRN Reason Stop Dose Admin Acetaminophen 650 mg 09/12/20 16:06 Acetaminophen 325 Mg Tablet PO Q6H PRN Headache/Pain Mild Scale (1-3) Al Hydroxide/Mg Hydroxide 30 ml 09/12/20 16:06 Magnesium Hydrox/Alum Hydrox 30 Ml Oral.Susp PO Q6H PRN Heartburn/Nausea Buprenorphine/Naloxone 1 film 09/14/20 09:00 09/17/20 08:44 Buprenorphine/Naloxone 12/3 Mg Film SUBLINGUAL 1 film DAILY FOUZIA Administration Bupropion HCl 150 mg 09/14/20 09:00 09/17/20 08:44 Bupropion Hcl Xl 150 Mg Tab.Er.24h PO 150 mg DAILY FOUZIA Administration Chlorpromazine HCl 100 mg 09/15/20 17:56 09/16/20 18:11 Chlorpromazine Hcl 100 Mg Tablet PO 100 mg Q8H PRN Administration Anxiety Gabapentin 600 mg 09/12/20 21:00 09/17/20 14:15 Gabapentin 600 Mg Tablet PO 600 mg TID FOUZIA Administration Hydroxyzine HCl 50 mg 09/15/20 10:55 09/17/20 03:16 Hydroxyzine Hcl 25 Mg Tablet PO 50 mg Q8H PRN Administration Anxiety Lorazepam 1 mg 09/16/20 22:08 09/17/20 16:48 Lorazepam 1 Mg Tablet PO 1 mg Q6H PRN Administration anxiety/restlessness Magnesium Hydroxide 30 ml 09/12/20 16:06 Milk Of Magnesia 30 Ml Oral.Susp PO DAILY PRN Constipation Mirtazapine 30 mg 09/15/20 21:00 09/16/20 20:18 Mirtazapine 30 Mg Tablet PO 30 mg BEDTIME FOUZIA Administration Nicotine 21 mg 09/13/20 09:00 09/17/20 08:44 Nicotine 21 Mg Patch.Td24 TRANSDERMA 21 mg DAILY FOUZIA Administration Nicotine Polacrilex 2 mg 09/12/20 16:06 09/16/20 18:16 Nicotine Polacrilex 2 Mg Gum BUCCAL 2 mg Q2H PRN Administration Nicotine Cravings Trazodone HCl 150 mg 09/13/20 21:00 09/16/20 20:18 Trazodone Hcl 50 Mg Tablet PO 150 mg BEDTIME FOUZIA Administration Allergies Allergies Allergy/AdvReac Type Severity Reaction Status Date / Time No Known Allergies Allergy Unverified 02/10/20 19:52 [No Known Allergies*] Assessment & Plan Assessment & Plan (1) Mood disorder: Status: Acute Code(s): F39 - Unspecified mood [affective] disorder (2) Alcohol use disorder: Status: Acute (3) Opioid use disorder: Status: Acute Code(s): F11.99 - Opioid use, unspecified with unspecified opioid-induced disorder Assessment and Plan: Adult male with previous admissions for suicidal ideation, with dysphoria and substance abuse, with poor social support. Admitted after suicidal attempt. Plan: 1. Keep antidepressants. 2. D/C Ativan. 3. Gather collateral. 4. Referral to the [facility] in process No need of CIWA since medicine cleared him up Continue Suboxone CT treatment plan without change Greater than 50% of the session was spent on counseling and/or coordination of care Patient educated on: diagnosis, medication risk/benefits and substance abuse Informed Consent: further education needed Reason for contiued inpatient stay Substantial Risk for: inability to function and rapid decompensation
[2020-09-17 18:00] VITALS: BP 140/62; PULSE 95; TEMP 36.2
[2020-09-17] MEDS: Nicotine Polacrilex 2 MG GUM BUCCAL (20:08)
[2020-09-17] MEDS: Mirtazapine 30 MG TABLET PO (20:10)
[2020-09-17] MEDS: traZODone HCL 50 MG TABLET 150 MG PO (20:10)
[2020-09-18 08:59] VITALS: BP 123/68; PULSE 80; RESP 17; TEMP 36.2; O2SAT 97
[2020-09-18] MEDS: Gabapentin 600 MG TABLET PO (09:02)
[2020-09-18] MEDS: Nicotine 21 MG PATCH.TD24 TRANSDERMA (09:02)
[2020-09-18] MEDS: Nicotine Polacrilex 2 MG GUM BUCCAL ×2 (09:04→13:18)
[2020-09-18] MEDS: Buprenorphine/Naloxone 12/3 mg FILM 1 FILM SUBLINGUAL (09:04)
[2020-09-18] MEDS: buPROPion HCl XL 150 MG TAB.ER.24H PO (09:04)
[2020-09-18] MEDS: LORazepam 1 MG TABLET PO (09:08)
[2020-09-18] MEDS: chlorproMAZINE HCl 100 MG TABLET PO ×2 (13:18→21:10)
--- NOTE | 2020-09-18 14:29 | P.PNPSI_ITS ---
Subjective Subjective Date of Service: 09/18/20 Reason For Visit: Major Depressive D/O Interim History: The patient reported that he is anxious. Staff reported that he is more visible on the unit. He complained of poor sleep and anxiety and he remains most of the time in his room. We discussed options and he agreed to increase Gabapentin and Wellbutrin. Later, he stated to the [facility] that he would decline the bed if he would not be discharged on Ativan. He was very aware that I wouldn't prescribe benzodiazepines but over the weekend it was re-started. If he doesn't want to work to [place], [facility]. Medication Compliance: Yes Side effects from medications: No Attending Groups: No Review of Systems Review of Systems Yes all other systems are reviewed and are negative Mental Status Exam Mental Status Exam Patient Appearance: Well Grooomed (hospital gowns) Patient Orientation: Person, Place, Time and Situation Level of Consciousness: Awake Patient Behavior: Appropriate Mood Description: Calm Affect Description: Calm Patient Cognition Impaired: No Ability to Follow Directions: Good Speech Pattern: Clear Memory Description: Intact Hallucinations: None Delusions: Not Present Thought Process: Intact Thought Content: positive for Intact Judgement: Fair Diagnostics Vital Signs (24Hr): Vital Signs - 24 hr 09/17/20 18:00 09/18/20 08:59 Temperature 97.2 F 97.2 F Pulse Rate 95 80 Respiratory Rate 17 Blood Pressure 140/62 H 123/68 Pulse Oximetry 97 Medications Medications Current Medications Generic Name Dose Route Start Last Admin Trade Name Freq PRN Reason Stop Dose Admin Acetaminophen 650 mg 09/12/20 16:06 Acetaminophen 325 Mg Tablet PO Q6H PRN Headache/Pain Mild Scale (1-3) Al Hydroxide/Mg Hydroxide 30 ml 09/12/20 16:06 Magnesium Hydrox/Alum Hydrox 30 Ml Oral.Susp PO Q6H PRN Heartburn/Nausea Buprenorphine/Naloxone 1 film 09/14/20 09:00 09/18/20 09:04 Buprenorphine/Naloxone 12/3 Mg Film SUBLINGUAL 1 film DAILY FOUZIA Administration Bupropion HCl 300 mg 09/19/20 09:00 Bupropion Hcl Xl 150 Mg Tab.Er.24h PO DAILY FOUZIA Chlorpromazine HCl 100 mg 09/15/20 17:56 09/18/20 13:18 Chlorpromazine Hcl 100 Mg Tablet PO 100 mg Q8H PRN Administration Anxiety Gabapentin 800 mg 09/18/20 15:00 Gabapentin 600 Mg Tablet PO TID FOUZIA Hydroxyzine HCl 50 mg 09/15/20 10:55 09/17/20 20:07 Hydroxyzine Hcl 25 Mg Tablet PO 50 mg Q8H PRN Administration Anxiety Magnesium Hydroxide 30 ml 09/12/20 16:06 Milk Of Magnesia 30 Ml Oral.Susp PO DAILY PRN Constipation Mirtazapine 30 mg 09/15/20 21:00 09/17/20 20:10 Mirtazapine 30 Mg Tablet PO 30 mg BEDTIME FOUZIA Administration Nicotine 21 mg 09/13/20 09:00 09/18/20 09:02 Nicotine 21 Mg Patch.Td24 TRANSDERMA 21 mg DAILY FOUZIA Administration Nicotine Polacrilex 2 mg 09/12/20 16:06 09/18/20 13:18 Nicotine Polacrilex 2 Mg Gum BUCCAL 2 mg Q2H PRN Administration Nicotine Cravings Trazodone HCl 150 mg 09/13/20 21:00 09/17/20 20:10 Trazodone Hcl 50 Mg Tablet PO 150 mg BEDTIME FOUZIA Administration Allergies Allergies Allergy/AdvReac Type Severity Reaction Status Date / Time No Known Allergies Allergy Unverified 02/10/20 19:52 [No Known Allergies*] Assessment & Plan Assessment & Plan (1) Mood disorder: Status: Acute Code(s): F39 - Unspecified mood [affective] disorder (2) Alcohol use disorder: Status: Acute (3) Opioid use disorder: Status: Acute Code(s): F11.99 - Opioid use, unspecified with unspecified opioid-induced disorder Assessment and Plan: Adult male with previous admissions for suicidal ideation, with dysphoria and substance abuse, with poor social support. Admitted after suicidal attempt. Plan: 1. Keep antidepressants. 2. D/C Ativan. 3. Gather collateral. 4. Referral to the [facility] in process No need of CIWA since medicine cleared him up Continue Suboxone CT treatment plan without change Greater than 50% of the session was spent on counseling and/or coordination of care Reason for contiued inpatient stay Substantial Risk for: rapid decompensation
[2020-09-18] MEDS: hydrOXYzine HCL 25 MG TABLET 50 MG PO (15:05)
[2020-09-18] MEDS: Gabapentin 400 MG CAPSULE 800 MG PO ×2 (15:05→21:09)
[2020-09-18 18:00] VITALS: BP 113/72; PULSE 77; TEMP 36.1
[2020-09-18] MEDS: hydrOXYzine HCL 50 MG TABLET PO (20:40)
[2020-09-18] MEDS: Mirtazapine 30 MG TABLET PO (21:10)
[2020-09-18] MEDS: traZODone HCL 50 MG TABLET 150 MG PO (21:10)
[2020-09-19 06:30] VITALS: BP 107/55; PULSE 72; RESP 18; TEMP 36.6; O2SAT 95
[2020-09-19] MEDS: Nicotine 21 MG PATCH.TD24 TRANSDERMA (08:45)
[2020-09-19] MEDS: Buprenorphine/Naloxone 12/3 mg FILM 1 FILM SUBLINGUAL (08:45)
[2020-09-19] MEDS: Gabapentin 400 MG CAPSULE 800 MG PO ×3 (08:45→20:04)
[2020-09-19] MEDS: buPROPion HCl XL 150 MG TAB.ER.24H 300 MG PO (09:00)
[2020-09-19] MEDS: chlorproMAZINE HCl 100 MG TABLET PO ×2 (09:35→20:04)
[2020-09-19] MEDS: hydrOXYzine HCL 50 MG TABLET PO ×2 (09:35→16:34)
--- NOTE | 2020-09-19 10:11 | PM.PSYDC ---
DS: Providers Provider Date of Service: 09/19/20 Date of admission: 09/12/20 16:02 Date of discharge: 09/19/20 Primary care physician: Saadia Shannon NP Attending physician on admission: Attila Robbins Attending physician on discharge: Attila Robbins DS: Diagnosis Discharge Diagnosis (1) Mood disorder: Status: Acute Problem details: Admitted initially to medicine after an intentional OD on prescription medications after abusing alcohol and drugs, medically cleared. RE-started on antidepressants and mood stabilizer (2) Alcohol use disorder: Status: Acute Problem details: No alcohol withdrawal symptoms (3) Opioid use disorder: Status: Acute Problem details: Stable on Suboxone DS: Medications Discharge Medications Home Medications: Home Medications Medication Instructions Recorded Confirmed buprenorphine-naloxone [Suboxone] 1 film BUCCAL Q24H 09/09/20 09/09/20 bupropion HCl [Wellbutrin XL] 1 tab PO QAM 09/09/20 09/09/20 gabapentin 1 tab PO TID 09/09/20 09/09/20 hydroxyzine pamoate 50 cap PO TID PRN 09/09/20 09/09/20 mirtazapine 1 tab PO BEDTIME 09/09/20 09/09/20 trazodone 1 tab PO BEDTIME 09/09/20 09/09/20 ziprasidone HCl 1 cap PO BID 09/09/20 09/09/20 Previous Rx's Medication Instructions Recorded lorazepam 1 mg PO Q6H #1 tab 09/12/20 Discharge Plan Discharge Anticipated Discharge Date/Time: 09/19/20 13:00 Patient Disposition: Xfer Other Discharge Diagnosis: Mood disorder NOS Alcohol use disorder Opioid use disorder Referrals: Saadia Shannon NP [Primary Care Provider] - 1 Week (Patient has no scheduled place to go, patient will schedule his own appointment. Dr. garcia is aware of his situation. ) Discharge Medications: New buprenorphine-naloxone [Suboxone] 12-3 mg Film 1 film sublingual DAILY 30 Days Qty: 30 RF: 0 bupropion HCl 300 mg tablet extended release 24 hr 300 mg PO DAILY 30 Days Qty: 30 RF: 0 gabapentin 800 mg tablet 800 mg PO TID 30 Days Qty: 90 RF: 0 trazodone 50 mg Tablet 150 mg PO BEDTIME 30 Days Qty: 90 RF: 0 hydroxyzine HCl 50 mg Tablet 50 mg PO Q4H PRN (Reason: Anxiety) 30 Days Qty: 90 RF: 0 mirtazapine 30 mg Tablet 30 mg PO BEDTIME 30 Days Qty: 30 RF: 0 Continued hydroxyzine pamoate 50 mg capsule 50 cap PO TID PRN (Reason: anxiety) RF: 0 Hold Instructions: Resume on 09/19/20. Resume per inpatient psych recs gabapentin 800 mg tablet 1 tab PO TID RF: 0 Hold Instructions: Resume on 09/19/20. Resume per inpatient psych recs mirtazapine 30 mg tablet 1 tab PO BEDTIME RF: 0 Hold Instructions: Resume on 09/19/20. Resume per inpatient psych recs trazodone 150 mg tablet 1 tab PO BEDTIME RF: 0 Hold Instructions: Resume on 09/19/20. Resume per inpatient psych recs bupropion HCl [Wellbutrin XL] 300 mg tablet extended release 24 hr 1 tab PO QAM RF: 0 Hold Instructions: Resume on 09/19/20. Resume per inpatient psych recs buprenorphine-naloxone [Suboxone] 12-3 mg Film 1 film BUCCAL Q24H RF: 0 Hold Instructions: Resume on 09/19/20. Resume per inpatient psych recs Discontinued ziprasidone HCl 40 mg capsule 1 cap PO BID RF: 0 Hold Instructions: Resume on 09/19/20. Resume per inpatient psych recs lorazepam 1 mg Tablet 1 mg PO Q6H Qty: 1 RF: 0 Discharge Orders: Discharge Order (Routine); Ordered 09/19/20 Ordered By: Attila Robbins Diet: advance to usual diet Activity on Discharge: As tolerated Stand Alone Forms: Patient Portal Discharge page Care Plan Goals: Care Plan Goals achieved on this admission, patient is safe for the community Health Concerns: Continue outpatient providers Plan of Treatment: Continue outpatient providers. Assessment: The patient is an adult male with mood disorder, alcohol use disorder, opioid use disorder with poor social support who left a residential facility in [place] and relapsed on alcohol and drugs and overdosed on prescritpion medications. Medically cleared and transferred to psychiatric inpatient unit ofr stabilization Mental Status Exam Mental Status Exam Patient Appearance: Well Grooomed Patient Orientation: Person, Place, Time and Situation Level of Consciousness: Awake and Appropriate Patient Behavior: Appropriate Mood Description: Calm and Appropriate Affect Description: Constricted Patient Cognition Impaired: No Ability to Follow Directions: Good Speech Pattern: Clear Memory Description: Intact Hallucinations: None Delusions: Not Present Thought Process: Goal Oriented Thought Content: positive for [place] Judgement: Fair Data Data Completed and Pending Completed studies during hospitalization [Text1]: While in medicine, he had serial EKGs with no QTC elongation, BMP, LFT were normal Cardiology Testing See D/C summary from medicine, no EKG abonrmalities. DS: Summary Hospital Course Hospital Course: The patient left a substance abuse residential facility a few weeks previous the admission and went to [place] where he started using drugs and alcohol. Later, he became suicidal and overdosed on his prescription medication but walked in to the ED asking for help. He was initially admitted to medicine with serial EKG's and when medically cleared, he was transferred to the pyschiatric unit. On intake, he was depressed and suicidal but able to contract for safety and interested on treatment. While in the psychiatric unit, the patient was mostly dysphoric, isolated in his room but as we started to reintroduce his antidepressants, he was able to attend groups. Referral to the [facility] and other facilities were done in an effort to continue his treatment. Since there were no safety concerns, discharge plannig was dicussed. Time spent discussing smoking cessation with patient: 3 to 10 minutes Status at Discharge Functional status at discharge: independent ambulation Overall status at discharge: patient is back to baseline Time Spent with Patient Time attestation: Total time spent providing and/or coordinating discharge services: Time spent: Less than 30 minutes
--- NOTE | 2020-09-19 10:30 | PC.NURSE ---
PT VERBALIZES AWARENESS ANDREADINESS FOR DISCHARGE TODAY. PT VERBALIZES NO CURRENT URGE TO USE SUBSTANCES. PT IS OPEN TO CONTINUING TREATMENT IN THE FUTURE FOR SUBSTANCE ABUSE. PT DENIES DEPRESSION. PT STATES THAT HE DOES EXPERIENCE ANXIETY STILL BUT PRN MEDICATIONS AND COPING SKILLS ARE HELPING. PT IS INDEPENDENTLY TAKING CARE OF ADLS. HE IS ATTENDING GROUPS. PT HAS BEEN VISIBLE ON THE UNIT AND INTERACTIVE WITH [facility]. PT HAS BEEN ABLE TO REACH OUT TO STAFF TO ADVOCATE FOR HIS NEEDS. PTS PAPERWORK HAS BEEN FAXED TO PROVIDERS PER PROTOCOL. PT HAS BEEN RECEPTIVE TO [facility] REGARDING MEDICATIONS AND COMMUNITY SUPPORTS.
[2020-09-19] MEDS: Nicotine Polacrilex 2 MG GUM BUCCAL (11:11)
[2020-09-19 17:20] VITALS: BP 116/70; PULSE 95; TEMP 36.4
[2020-09-19] MEDS: traZODone HCL 50 MG TABLET 150 MG PO (20:04)
[2020-09-19] MEDS: Mirtazapine 30 MG TABLET PO (20:04)
[2020-09-20 06:00] VITALS: BP 111/64; PULSE 81; RESP 16; TEMP 36.1; O2SAT 95
[2020-09-20] MEDS: Nicotine 21 MG PATCH.TD24 TRANSDERMA (08:54)
[2020-09-20] MEDS: buPROPion HCl XL 150 MG TAB.ER.24H 300 MG PO (08:54)
[2020-09-20] MEDS: Gabapentin 400 MG CAPSULE 800 MG PO (08:54)
[2020-09-20] MEDS: Buprenorphine/Naloxone 12/3 mg FILM 1 FILM SUBLINGUAL (08:54)
[2020-09-20] MEDS: hydrOXYzine HCL 50 MG TABLET PO (09:09)
[2020-09-20] MEDS: chlorproMAZINE HCl 100 MG TABLET PO (09:09)
--- NOTE | 2020-09-20 10:04 | P.PNPSI_ITS ---
Subjective Subjective Date of Service: 09/20/20 Reason For Visit: Major Depressive D/O Subjective Notes: Conditional Voluntary Interim History: the patient couldn't go yesterday to the [facility], so far, he is stable and he is going to go today. Medication Compliance: Yes Side effects from medications: No Attending Groups: No Review of Systems Review of Systems Yes all other systems are reviewed and are negative Mental Status Exam Mental Status Exam Patient Appearance: Well Grooomed Patient Orientation: Person, Place, Time and Situation Level of Consciousness: Awake Patient Behavior: Appropriate Mood Description: Calm Affect Description: Calm and Appropriate Patient Cognition Impaired: No Ability to Follow Directions: Good Speech Pattern: Clear Memory Description: Intact Hallucinations: None Delusions: Not Present Thought Process: Goal Oriented Thought Content: positive for Intact Judgement: Fair Diagnostics Vital Signs (24Hr): Vital Signs - 24 hr 09/19/20 17:20 09/20/20 06:00 Temperature 97.6 F 97 F Pulse Rate 95 81 Respiratory Rate 16 Blood Pressure 116/70 111/64 Pulse Oximetry 95 Medications Medications Current Medications Generic Name Dose Route Start Last Admin Trade Name Freq PRN Reason Stop Dose Admin Acetaminophen 650 mg 09/12/20 16:06 Acetaminophen 325 Mg Tablet PO Q6H PRN Headache/Pain Mild Scale (1-3) Al Hydroxide/Mg Hydroxide 30 ml 09/12/20 16:06 Magnesium Hydrox/Alum Hydrox 30 Ml Oral.Susp PO Q6H PRN Heartburn/Nausea Buprenorphine/Naloxone 1 film 09/14/20 09:00 09/20/20 08:54 Buprenorphine/Naloxone 12/3 Mg Film SUBLINGUAL 1 film DAILY FOUZIA Administration Bupropion HCl 300 mg 09/19/20 09:00 09/20/20 08:54 Bupropion Hcl Xl 150 Mg Tab.Er.24h PO 300 mg DAILY FOUZIA Administration Chlorpromazine HCl 100 mg 09/15/20 17:56 09/20/20 09:09 Chlorpromazine Hcl 100 Mg Tablet PO 100 mg Q8H PRN Administration Anxiety Gabapentin 800 mg 09/18/20 15:00 09/20/20 08:54 Gabapentin 400 Mg Capsule PO 800 mg TID FOUZIA Administration Hydroxyzine HCl 50 mg 09/18/20 20:10 09/20/20 09:09 Hydroxyzine Hcl 50 Mg Tablet PO 50 mg Q4H PRN Administration Anxiety Magnesium Hydroxide 30 ml 09/12/20 16:06 Milk Of Magnesia 30 Ml Oral.Susp PO DAILY PRN Constipation Mirtazapine 30 mg 09/15/20 21:00 09/19/20 20:04 Mirtazapine 30 Mg Tablet PO 30 mg BEDTIME FOUZIA Administration Nicotine 21 mg 09/13/20 09:00 09/20/20 08:54 Nicotine 21 Mg Patch.Td24 TRANSDERMA 21 mg DAILY FOUZIA Administration Nicotine Polacrilex 2 mg 09/12/20 16:06 09/19/20 11:11 Nicotine Polacrilex 2 Mg Gum BUCCAL 2 mg Q2H PRN Administration Nicotine Cravings Trazodone HCl 150 mg 09/13/20 21:00 09/19/20 20:04 Trazodone Hcl 50 Mg Tablet PO 150 mg BEDTIME FOUZIA Administration Allergies Allergies Allergy/AdvReac Type Severity Reaction Status Date / Time No Known Allergies Allergy Unverified 02/10/20 19:52 [No Known Allergies*] Assessment & Plan Assessment & Plan (1) Mood disorder: Status: Acute Code(s): F39 - Unspecified mood [affective] disorder (2) Alcohol use disorder: Status: Acute (3) Opioid use disorder: Status: Acute Code(s): F11.99 - Opioid use, unspecified with unspecified opioid-induced disorder Assessment and Plan: Adult male with previous admissions for suicidal ideation, with dysphoria and substance abuse, with poor social support. Admitted after suicidal attempt. Plan: D/C today Greater than 50% of the session was spent on counseling and/or coordination of care Reason for contiued inpatient stay Substantial Risk for: stable for discharge
--- NOTE | 2020-09-20 13:04 | PC.NURSE ---
Patient discharged to program. Reports he is feeling ready to take the next step . Continues depressed and anxious, denies SI/HI plan or intent. Denies perceptual disturbances, no overt psychosis or expressed delusions. All belongings taken with patient, medications returned to patent. Appointments reviewed, patient reports understanding. Crisis numbers reviewed and provided to patient.
== END 2020-09-20 12:23 | disposition other institution (70) | DRG 753 ==
PROVIDERS: Admitting Provider Psychiatry & Neurology Psychiatry; PCP Nurse Practitioner Family; Visit Provider Psychiatry & Neurology Psychiatry
DX: F39 Unspecified mood [affective] disorder (principal); R45.851 Suicidal ideations; F11.20 Opioid dependence, uncomplicated; F10.10 Alcohol abuse, uncomplicated; Z59.0 Homelessness; Z79.899 Other long term (current) drug therapy

== ENCOUNTER 2020-11-15 20:16 | Inpatient (IN) | payer OTHER, SELFPAY ==
[2020-11-15 20:23] VITALS: BP 160/110; PULSE 86; O2SAT 95
[2020-11-15 20:24] VITALS: BP 140/67; PULSE 90; RESP 17; TEMP 36.9; O2SAT 100; BMI 32.5
[2020-11-15 21:01] LABS: COVID-19 Test Negative (Negative); IDNOW Serial# 9DD0AD1C
[2020-11-15] MEDS: LORazepam 2 MG/ML VIAL IM (21:50)
--- NOTE | 2020-11-15 21:51 | PC.NURSE ---
Provider saw the patient, ordered Ativan 2 mg IM stat for anxiety and withdrawal d/t Hx of seizure, administered as ordered/patient compliant/pending effect, will continue to monitor.
[2020-11-15 22:05] LABS: Alanine Aminotransferase 21 U/L (0-40); Albumin Level 4.5 g/dL (3.5-5.0); Alkaline Phosphatase 80 U/L (39-117); Anion Gap 17 (12-20); Aspartate Amino Transferase 30 U/L (5-37); Bilirubin Direct 0.3 mg/dL (0.0-0.5); Bilirubin Total 0.8 mg/dL (0.0-1.0); Blood Urea Nitrogen 19 mg/dL (9-16); Calcium 9.4 mg/dL (8.4-10.2); Carbon Dioxide 21 mmol/L (22-29); Chloride 103 mmol/L (96-108); Creatinine Clr Calc Pharmacy 104.2; Estimated Glomerular Filt Rate > 60; Glucose Random 86 mg/dL (60-115); Magnesium 2.1 mg/dL (1.6-2.6); Potassium 4.2 mmol/L (3.3-5.1); Sodium 137 mmol/L (135-145)
--- NOTE | 2020-11-15 23:51 | ED.PSYCH ---
HPI - Psych General Chief Complaint: Psychiatric Symptoms Stated Complaint: si Time Seen by Provider: 11/15/20 21:12 Source: patient and EMS Mode of arrival: EMS Limitations: no limitations History of Present Illness HPI Narrative: 50-year-old male with a past medical history of alcohol use disorder, mood disorder here with complaints of increasing depression and suicidal thoughts with no plan. Patient tells me he drinks greater than 20 beers a day. His last drink was today at noon. He denies any homicidal ideations or hallucinations. No physical complaints but does feel slightly tremulous. Related Data Home Medications Medication Instructions Recorded Confirmed buprenorphine-naloxone [Suboxone] 2 strip SUBLINGUAL DAILY 11/15/20 11/15/20 buspirone 15 mg PO BID PRN 11/15/20 11/15/20 hydroxyzine pamoate 50 mg PO TID PRN 11/15/20 11/15/20 ibuprofen 600 mg PO BID PRN 11/15/20 11/15/20 Previous Rx's Medication Instructions Recorded bupropion HCl [Wellbutrin XL] 1 tab PO QAM 30 Days #30 tab 09/19/20 mirtazapine 30 mg PO BEDTIME 30 Days #30 tab 09/19/20 trazodone 1 tab PO BEDTIME 30 Days #30 tab 09/19/20 Allergies Allergy/AdvReac Type Severity Reaction Status Date / Time No Known Allergies Allergy Unverified 02/10/20 19:52 [No Known Allergies*] Review of Systems Review of Systems: Yes all other systems are reviewed and are negative Constitutional: Constitutional: Reports no additional constitutional complaints, Denies body ache(s), Denies chills, Denies fever(s), Denies headache(s) and Denies weakness Eyes: Eyes: Reports no additional eye complaints and Denies change in vision ENT: Reports system reviewed and no additional complaints, except as documented, Denies dizziness, Denies headache(s), Denies nasal congestion, Denies nasal discharge and Denies neck pain Cardiovascular: Cardiovascular: Reports no additional cardiovascular complaints, Denies chest pain, Denies leg edema and Denies dyspnea Respiratory: Respiratory: Reports no additional respiratory complaints, Denies cough and Denies dyspnea Gastrointestinal: Gastrointestinal: Reports no additional gastrointestinal complaints, Denies abdominal pain, Denies diarrhea, Denies nausea and Denies vomiting Genitourinary: Genitourinary: Denies urinary incontinence Musculoskeletal: Musculoskeletal: Reports no additional musculoskeletal complaints, Denies back pain, Denies arthralgias, Denies joint swelling, Denies neck pain, Denies numbness and Denies tingling Integumentary/Breasts: Skin/Breast: Reports system reviewed and no additional complaints, except as docu and Denies rash Neurologic: Reports system reviewed and no additional complaints, except as documented, Denies Abnormal speech present, Denies dizziness, Denies headache(s), Denies numbness, Denies tingling and Denies weakness Psychiatric: Psychiatric: Denies anxiety, Reports depression, Denies visual hallucinations, Denies hallucinations, Denies homicidal ideation and Reports suicidal ideation [facility] Past Medical History Attestation statement: The following information was validated with the patient. Source: old records reviewed and nursing notes reviewed Medical History Depression Surgical History History of mandibular surgery Family History Family History Mother Diabetes mellitus Father Leukemia Social History Social History Household Members: Other Household Members Other:: People he met in the community Housing: Homeless Do you presently have visiting nurse or other home services: No Alcohol intake: current Cigarette Packs Per Day: 1 Cigarettes Per Day: 20.0 Years Smoked: 20 Second Hand Smoke Exposure: Yes Advance Directives: No Advance Directives Information Provided: Yes service: No Current occupational status: unemployed Sexual orientation: Straight/Heterosexual Physical Exam Vital Signs: Vital Signs: Last Vital Signs Temp 98.5 F 11/15/20 20:24 Pulse 90 11/15/20 20:24 Resp 17 11/15/20 20:24 BP 140/67 H 11/15/20 20:24 Pulse Ox 100 11/15/20 20:24 Body Mass Index 32.5 Const: General: cooperative, healthy appearing, comfortable and no acute distress Orientation/consciousness: patient oriented x3 Limitations: no limitations HENMT: Head: Yes normal to inspection Ears: hearing grossly normal bilaterally General nose exam: Normal external nose present Face and sinus: Yes normal facial exam Mouth: Normal oral and palatal mucosa present Throat: Yes posterior oropharynx normal Eyes: General: appearance normal, both eyes and all related structures Pupils: Equal, round and reactive pupils present Neck: Neck: Yes normal visual inspection Chest: Chest palpation & inspection: normal inspection of the chest Resp: Effort & Inspection: normal respiratory effort Auscultation: clear to auscultation bilaterally Cardio: Rate: regular rate Rhythm: regular rhythm Peripheral pulses: Peripheral pulses 2+ throughout GI: Inspection: Yes normal to inspection Palpation (GI): Soft to palpation and nontender Auscultation: normal bowel sounds Back/Spine/Pelvis: Thoracic/Lumbar Spine: thoracic and lumbar spine normal to inspection Skin: General skin exam: no rashes or lesions noted Neuro: General: patient oriented x3, no focal motor deficits and normal sensation to monofilament Cranial nerves: Yes Equal, round and reactive pupils present Cognition (Neuro): normal cognition Speech: No Abnormal speech present Gait exam (Neuro): Normal gait present Motor exam (neuro): 5/5 motor strength present throughout Extrem: General: Yes normal to inspection Course Course Course Narrative: 50-year-old male here with depression, suicidal thoughts and increasing alcohol use. On arrival the patient is mildly tremulous but no tachycardia or hypertension. His last drink was at 12:00 o'clock this afternoon. He does have a history of alcohol withdrawal requiring admission to the hospital and has a history of alcohol withdrawal induced seizures. Will check labs, COVID screen, drug screen. Nursing will verify all medications. Will give Ativan and nursing will monitor his CIWA closely. Will require BHN eval.placed in physician obs pending eval No concern for acute ingestion or trauma. -plan for section 12, bed search MDM - Psych Medical Records Attestation: I reviewed the patient's medical records. Lab Data Attestation: I reviewed the patient's lab results. Result diagrams: 11/15/20 21:24 Labs: Lab Results 11/15/20 11/15/20 Range/Units 20:35 21:24 Sodium 137 (135-145) mmol/L Potassium 4.2 (3.3-5.1) mmol/L Chloride 103 (96-108) mmol/L Carbon Dioxide 21 L (22-29) mmol/L Anion Gap 17 (12-20) BUN 19 H D (9-16) mg/dL Creatinine 1.08 (0.5-1.4) mg/dL Estim Creat Clear Calc 104.2 Estimated GFR > 60 Random Glucose 86 (60-115) mg/dL Calcium 9.4 (8.4-10.2) mg/dL Magnesium 2.1 (1.6-2.6) mg/dL Total Bilirubin 0.8 (0.0-1.0) mg/dL Direct Bilirubin 0.3 (0.0-0.5) mg/dL AST 30 D (5-37) U/L ALT 21 (0-40) U/L Alkaline Phosphatase 80 D (39-117) U/L Total Protein 7.0 D (6.5-8.0) g/dL Albumin 4.5 (3.5-5.0) g/dL COVID-19 (LINK) Negative (Negative) COVID-19 Clin Com See Note Discharge Plan Discharge Clinical Impression: Mood disorder, Alcohol use disorder, Suicidal ideation Patient Disposition: Admitted As Inpatient
[2020-11-16] VITALS (8 sets, daily range): BP systolic 112–136; BP diastolic 59–76; PULSE 71–85; RESP 16–18; TEMP 36.1–37.2; O2SAT 95–99
[2020-11-16] MEDS: traZODone HCL 50 MG TABLET 150 MG PO (00:49)
[2020-11-16] MEDS: Mirtazapine 30 MG TABLET PO ×2 (00:49→21:16)
--- NOTE | 2020-11-16 01:09 | PC.NURSE ---
Patient asymptomatic of withdrawal, calm and quiet, compliant with HS PO medication, Care team assessed the patient patient engaged, disposition is section 12 inpatient bed search, provider and patient aware of it. VSS, denied distress, currently in bed resting quietly, will continue to monitor.
[2020-11-16 01:18] LABS: Amphetamine Screen Urine Not Detected (Not Detect); Barbiturates, Urine Not Detected (Not Detect); Benzodiazepines Screen Urine Not Detected (Not Detect); Cannabinoid Screen Urine Not Detected (Not Detect); Cocaine Screen Urine POSITIVE (Not Detect); Opiate Screen Urine Not Detected (Not Detect); Phencyclidine Screen Urine Not Detected (Not Detect)
--- NOTE | 2020-11-16 05:53 | PC.NURSE ---
Patient slept through the night, asymptomatic of withdrawal, no distress observed/reported, respiration +/=/non-labored bilaterally, will continue to monitor.
--- NOTE | 2020-11-16 07:06 | PC.NURSE ---
Report received. Pt asleep at current. No signs of distress. RR even and unlabored. Continues to be a section 12 bed search
[2020-11-16] MEDS: buPROPion HCl XL 300 MG TAB.ER.24H PO (08:20)
[2020-11-16] MEDS: Buprenorphine/Naloxone 8/2 mg FILM 2 FILM SUBLINGUAL (08:20)
[2020-11-16] MEDS: busPIRone HCl 5 MG TABLET 15 MG PO (08:26)
[2020-11-16] MEDS: chlordiazePOXIDE HCl 25 MG CAPSULE 50 MG PO (09:00)
[2020-11-16] MEDS: Gabapentin 400 MG CAPSULE 800 MG PO ×3 (10:12→21:15)
--- NOTE | 2020-11-16 10:29 | PC.NURSE ---
Pt resting comfortably at current, reports a decrease in anxiety symptoms. Tremors continue to be visible.
--- NOTE | 2020-11-16 11:09 | ECG_ITS ---
Test Reason : MED CLEARANCE Blood Pressure : / mmHG Vent. Rate : 068 BPM Atrial Rate : 068 BPM P-R Int : 134 ms QRS Dur : 090 ms QT Int : 424 ms P-R-T Axes : 049 034 027 degrees QTc Int : 450 ms Normal sinus rhythm Nonspecific ST and T wave abnormality Abnormal ECG When compared with ECG of 09-SEP-2020 22:09, No significant change was found Referred By: Generic ED Physician Electronically Signed By:Dario Pratt
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
--- NOTE | 2020-11-16 11:45 | PC.NURSE ---
RN TO M5 RN REPORT GIVEN BY PREVIOUS POD RN. EKG COMPLETED. PT IN BED, IN NAD AT THIS TIME. RESP EVEN & NONLABOURED. WAITING ON TRANSPORT TO FLOOR.
[2020-11-16] MEDS: LORazepam 0.5 MG TABLET 2 MG PO (11:57)
[2020-11-16] MEDS: LORazepam 1 MG TABLET 2 MG PO ×2 (14:46→16:50)
--- NOTE | 2020-11-16 16:14 | PC.ADMIT ---
Cam goes by the nickname Jakob. He presented to the ED at [facility] with increased depression, suicidal ideation with multiple plans, and polysubstance abuse. He signed a Conditional Voluntary. Jakob has been staying at [facility] in [place] but was unable to comply with their guidelines and has lost his spot. He reported drinking and using cocaine daily prior to self presenting for help. Cam is currently in withdrawal from alcohol and was medicated with Ativan and Librium in the ED. He reports upon admission to that he is depressed and not suicidal ideation. Jakob was engaged and able to complete his admission paperwork.
[2020-11-16] MEDS: LORazepam 1 MG TABLET PO ×2 (18:50→21:15)
[2020-11-16] MEDS: traZODone HCL 100 MG TABLET PO (21:16)
--- NOTE | 2020-11-16 21:34 | PC.NURSE ---
PT resting comfortably, respirations even and unlabored, VS stable. PRN Ativan being administered approximately q 2 hours due to moderate withdrawal symptoms. Will continue to monitor closely. PT denies SI and wishes to rest as much as possible tonight.
--- NOTE | 2020-11-16 22:29 | PC.NURSE ---
PT sleeping, VS stable, unlabored and even respirations noted.
[2020-11-17] MEDS: Gabapentin 400 MG CAPSULE 800 MG PO ×3 (08:44→20:05)
[2020-11-17] MEDS: LORazepam 1 MG TABLET PO ×4 (08:45→23:13)
[2020-11-17] MEDS: Buprenorphine/Naloxone 8/2 mg FILM 2 FILM SUBLINGUAL (09:30)
[2020-11-17] MEDS: LORazepam 1 MG TABLET 2 MG PO (14:53)
--- NOTE | 2020-11-17 15:52 | HO.PSYCHPN ---
Subjective Subjective Date of Service: 11/17/20 Reason For Visit: depression, SI, etoh detox Interim History: The patient still scoring on CIWA and presents in active withdrawal, moderately sweaty, moderately tremulous, positive for headache, irritability, nausea and reports lights are bothering him.. Ordered Ativan 2 mg and will increase scheduled Ativan Discussed maintenance medication for alcohol abuse. Reviewed side effects, risks as well as benefits of disulfiram to which patient has never tried and will consider. Patient remains depressed, but continued to deny any SI Mental Status Exam Mental Status Exam Narrative: Pt is alert and oriented; behavior is cooperative, in etoh withdrawal, sweaty and tremulous; dressed in hospital gown with adequate hygiene; mood is described as depressed and affect congruent; eye contact appropriate; Speech is normal rate, volume and prosody and not pressured; no psychomotor agitation/retardation present; thought process is organized, linear, logical and goal directed. Thought content is on getting treatment and otherwise pertinent to relevant topics and without any delusional content, paranoid ideations or grandiosity; denies any SI/HI. There is no evidence of perceptual disturbance. Patients insight and judgment appear intact. Diagnostics Vital Signs (24Hr): Vital Signs - 24 hr 11/16/20 16:00 11/16/20 18:00 11/16/20 20:00 Temperature 97.0 F 98.0 F 98.1 F Pulse Rate 80 76 80 Respiratory Rate 18 18 16 Blood Pressure 117/63 121/76 123/68 Pulse Oximetry 99 99 98 11/16/20 22:00 Temperature 97 F Pulse Rate 78 Respiratory Rate 16 Blood Pressure 130/76 Pulse Oximetry 99 Body Mass Index 32.5 Labs Results: 11/15/20 21:24 Labs: Laboratory Results - last 48 hr 11/15/20 11/15/20 11/16/20 20:35 21:24 00:06 Sodium 137 Potassium 4.2 Chloride 103 Carbon Dioxide 21 L Anion Gap 17 BUN 19 H D Creatinine 1.08 Estim Creat Clear Calc 104.2 Estimated GFR > 60 Random Glucose 86 Calcium 9.4 Magnesium 2.1 Total Bilirubin 0.8 Direct Bilirubin 0.3 AST 30 D ALT 21 Alkaline Phosphatase 80 D Total Protein 7.0 D Albumin 4.5 Urine Opiates Screen Not Detected Ur Barbiturates Screen Not Detected Ur Phencyclidine Scrn Not Detected Ur Amphetamines Screen Not Detected U Benzodiazepines Scrn Not Detected Urine Cocaine Screen POSITIVE H U Marijuana (THC) Screen Not Detected COVID-19 (LINK) Negative COVID-19 Clin Com See Note Medications Medications Current Medications Generic Name Dose Route Start Last Admin Trade Name Freq PRN Reason Stop Dose Admin Al Hydroxide/Mg Hydroxide 30 ml 11/16/20 13:55 Magnesium Hydrox/Alum Hydrox 30 Ml Oral.Susp PO Q6H PRN Heartburn/Nausea Buprenorphine/Naloxone 2 film 11/16/20 09:00 11/17/20 09:30 Buprenorphine/Naloxone 8/2 Mg Film SUBLINGUAL 2 film DAILY FOUZIA Administration Buspirone HCl 15 mg 11/15/20 23:20 11/16/20 08:26 Buspirone Hcl 5 Mg Tablet PO 15 mg BID PRN Administration Anxiety Gabapentin 800 mg 11/16/20 09:15 11/17/20 14:52 Gabapentin 400 Mg Capsule PO 800 mg TID FOUZIA Administration Hydroxyzine HCl 50 mg 11/15/20 23:20 Hydroxyzine Hcl 50 Mg Tablet PO TID PRN anxiety Ibuprofen 600 mg 11/15/20 23:20 Ibuprofen 600 Mg Tablet PO BID PRN Pain Lorazepam 2 mg 11/16/20 16:19 11/16/20 16:50 Lorazepam 1 Mg Tablet PO 2 mg Q2H PRN Administration alcohol withdrawal symptoms Lorazepam 1 mg 11/16/20 16:19 11/16/20 18:50 Lorazepam 1 Mg Tablet PO 1 mg Q2H PRN Administration Alcohol Withdrawal Lorazepam 1 mg 11/17/20 17:00 Lorazepam 1 Mg Tablet PO 11/19/20 23:00 QID FOUZIA Lorazepam 1 mg 11/20/20 09:00 Lorazepam 1 Mg Tablet PO 11/22/20 23:59 TID FOUZIA Lorazepam 1 mg 11/23/20 09:00 Lorazepam 1 Mg Tablet PO 11/24/20 23:59 BID FOUZIA Magnesium Hydroxide 30 ml 11/16/20 13:55 Milk Of Magnesia 30 Ml Oral.Susp PO DAILY PRN Constipation Mirtazapine 30 mg 11/15/20 23:30 11/16/20 21:16 Mirtazapine 30 Mg Tablet PO 30 mg BEDTIME FOUZIA Administration Nicotine 21 mg 11/16/20 13:55 Nicotine 21 Mg Patch.Td24 TRANSDERMA DAILY PRN smoking cessation Nicotine Polacrilex 4 mg 11/16/20 13:55 Nicotine Polacrilex 2 Mg Gum BUCCAL Q2H PRN Nicotine Cravings Trazodone HCl 100 mg 11/16/20 21:00 11/16/20 21:16 Trazodone Hcl 100 Mg Tablet PO 100 mg BEDTIME FOUZIA Administration Allergies Allergies Allergy/AdvReac Type Severity Reaction Status Date / Time No Known Allergies Allergy Unverified 02/10/20 19:52 [No Known Allergies*] Assessment & Plan Assessment & Plan (1) Alcohol use disorder: Status: Acute Assessment and Plan: Hx of alcohol induced Seizures (2) Alcohol withdrawal: Qualifiers: Complication of substance-induced condition: uncomplicated Qualified Code(s): F10.230 - Alcohol dependence with withdrawal, uncomplicated Status: Acute Code(s): F10.239 - Alcohol dependence with withdrawal, unspecified (3) Mood disorder: Status: Acute Code(s): F39 - Unspecified mood [affective] disorder Assessment and Plan: IMPRESSION: Patient is a 50-year-old male with history of alcohol dependence and history of withdrawal seizures, cocaine abuse, depression and anxiety who presents for depression, SI in the face of relapse and need for alcohol detox alcohol relapse. Patient reports relatively good mood on Wellbutrin. However he reports self-deprecating thoughts started to Whittle away it is mood, leaving him increasingly vulnerable to relapse. Patient also endorses ongoing anxiety. He reports SI has fully resolved; he has a history of attempt by overdose. Will admit for safety and medication management and detox. Remains depressed, but no SI Continues to have withdrawal symptoms so will increase Ativan taper PLAN: Patient on CIWA Increased taper: Ativan 1 mg q.i.d.. for 3 days, followed by taper given the fact that patient has history of alcohol withdrawal seizures Ativan 2 mg q.2h p.r.n. for alcohol breakthrough withdrawal symptoms moderate to severe Ativan 1 mg Q to p.r.n. for breakthrough symptoms mild to moderate Gabapentin 800 mg t.i.d. continued in the ED; will continue now to protect from seizures; not sure if patient was taking regularly prior to this admission; however will have to consider how to handle this medication given that patient has history of severe alcohol abuse HOLD Wellbutrin for now given the fact that patient is in alcohol withdrawal and do not want to risk of lowering seizure threshold (though there is low incidence of this) Lower trazodone to 100 mg so as to not accidentally mask withdrawal symptoms (4) Cocaine abuse: Status: Acute Code(s): F14.10 - Cocaine abuse, uncomplicated (5) Opioid use disorder: Status: Acute Code(s): F11.99 - Opioid use, unspecified with unspecified opioid-induced disorder Greater than 50% of the session was spent on counseling and/or coordination of care Reason for contiued inpatient stay Substantial Risk for: rapid decompensation
[2020-11-17 18:00] VITALS: BP 125/68; PULSE 73; TEMP 36.6
[2020-11-17] MEDS: Mirtazapine 30 MG TABLET PO (20:05)
[2020-11-17] MEDS: traZODone HCL 100 MG TABLET PO (20:06)
[2020-11-17] MEDS: Nicotine Polacrilex 2 MG GUM 4 MG BUCCAL (23:13)
[2020-11-18 06:00] VITALS: BP 121/71; PULSE 66; RESP 14; TEMP 36.3; O2SAT 92
--- NOTE | 2020-11-18 08:42 | P.PNPSI_ITS ---
Subjective Subjective Date of Service: 11/18/20 Reason For Visit: depression, SI, etoh detox Subjective Notes: Conditional Voluntary Interim History: Patient was seen in rounds today. He on is doing better but continues to exhibit sinus symptoms of withdrawals. He continues to be on a detox protocol which has been helpful. He does have history of withdrawal sei zurrita. Tolerating medications. Denies any side effects. Eating and mostly sleeping adequately. No changes were made today on current regimen is maintained Medication Compliance: Yes Attending Groups: Yes Mental Status Exam Mental Status Exam Narrative: In today's visit he is alert, oriented and pleasant. Normal speech. Good eye contact. Affect is appropriate and constricted. No signs of psychosis. Cognitively is intact. No SI/HI. Judgment intact Diagnostics Vital Signs (24Hr): Vital Signs - 24 hr 11/17/20 18:00 11/18/20 06:00 Temperature 97.8 F 97.3 F Pulse Rate 73 66 Respiratory Rate 14 Blood Pressure 125/68 121/71 Pulse Oximetry 92 Body Mass Index 32.5 Labs Results: 11/15/20 21:24 Medications Medications Current Medications Generic Name Dose Route Start Last Admin Trade Name Freq PRN Reason Stop Dose Admin Al Hydroxide/Mg Hydroxide 30 ml 11/16/20 13:55 Magnesium Hydrox/Alum Hydrox 30 Ml Oral.Susp PO Q6H PRN Heartburn/Nausea Buprenorphine/Naloxone 2 film 11/16/20 09:00 11/17/20 09:30 Buprenorphine/Naloxone 8/2 Mg Film SUBLINGUAL 2 film DAILY FOUZIA Administration Buspirone HCl 15 mg 11/15/20 23:20 11/16/20 08:26 Buspirone Hcl 5 Mg Tablet PO 15 mg BID PRN Administration Anxiety Gabapentin 800 mg 11/16/20 09:15 11/17/20 20:05 Gabapentin 400 Mg Capsule PO 800 mg TID FOUZIA Administration Hydroxyzine HCl 50 mg 11/15/20 23:20 Hydroxyzine Hcl 50 Mg Tablet PO TID PRN anxiety Ibuprofen 600 mg 11/15/20 23:20 Ibuprofen 600 Mg Tablet PO BID PRN Pain Lorazepam 2 mg 11/16/20 16:19 11/16/20 16:50 Lorazepam 1 Mg Tablet PO 2 mg Q2H PRN Administration alcohol withdrawal symptoms Lorazepam 1 mg 11/16/20 16:19 11/17/20 23:13 Lorazepam 1 Mg Tablet PO 1 mg Q2H PRN Administration Alcohol Withdrawal Lorazepam 1 mg 11/17/20 17:00 11/17/20 20:05 Lorazepam 1 Mg Tablet PO 11/19/20 23:00 1 mg QID FOUZIA Administration Lorazepam 1 mg 11/20/20 09:00 Lorazepam 1 Mg Tablet PO 11/22/20 23:59 TID FOUZIA Lorazepam 1 mg 11/23/20 09:00 Lorazepam 1 Mg Tablet PO 11/24/20 23:59 BID FOUZIA Magnesium Hydroxide 30 ml 11/16/20 13:55 Milk Of Magnesia 30 Ml Oral.Susp PO DAILY PRN Constipation Mirtazapine 30 mg 11/15/20 23:30 11/17/20 20:05 Mirtazapine 30 Mg Tablet PO 30 mg BEDTIME FOUZIA Administration Nicotine 21 mg 11/16/20 13:55 Nicotine 21 Mg Patch.Td24 TRANSDERMA DAILY PRN smoking cessation Nicotine Polacrilex 4 mg 11/16/20 13:55 11/17/20 23:13 Nicotine Polacrilex 2 Mg Gum BUCCAL 4 mg Q2H PRN Administration Nicotine Cravings Trazodone HCl 100 mg 11/16/20 21:00 11/17/20 20:06 Trazodone Hcl 100 Mg Tablet PO 100 mg BEDTIME FOUZIA Administration Allergies Allergies Allergy/AdvReac Type Severity Reaction Status Date / Time No Known Allergies Allergy Unverified 02/10/20 19:52 [No Known Allergies*] Assessment & Plan Assessment & Plan (1) Alcohol use disorder: Status: Acute Assessment and Plan: Hx of alcohol induced Seizures (2) Alcohol withdrawal: Qualifiers: Complication of substance-induced condition: uncomplicated Qualified Code(s): F10.230 - Alcohol dependence with withdrawal, uncomplicated Status: Acute Code(s): F10.239 - Alcohol dependence with withdrawal, unspecified (3) Mood disorder: Status: Acute Code(s): F39 - Unspecified mood [affective] disorder Assessment and Plan: IMPRESSION: Patient is a 50-year-old male with history of alcohol dependence and history of withdrawal seizures, cocaine abuse, depression and anxiety who presents for depression, SI in the face of relapse and need for alcohol detox alcohol relapse. Patient reports relatively good mood on Wellbutrin. However he reports self-deprecating thoughts started to Whittle away it is mood, leaving him increasingly vulnerable to relapse. Patient also endorses ongoing anxiety. He reports SI has fully resolved; he has a history of attempt by overdose. Will admit for safety and medication management and detox. Remains depressed, but no SI Continues to have withdrawal symptoms so will increase Ativan taper PLAN: Patient on CIWA Increased taper: Ativan 1 mg q.i.d.. for 3 days, followed by taper given the fact that patient has history of alcohol withdrawal seizures Ativan 2 mg q.2h p.r.n. for alcohol breakthrough withdrawal symptoms moderate to severe Ativan 1 mg Q to p.r.n. for breakthrough symptoms mild to moderate Gabapentin 800 mg t.i.d. continued in the ED; will continue now to protect from seizures; not sure if patient was taking regularly prior to this admission; however will have to consider how to handle this medication given that patient has history of severe alcohol abuse HOLD Wellbutrin for now given the fact that patient is in alcohol withdrawal and do not want to risk of lowering seizure threshold (though there is low incidence of this) Lower trazodone to 100 mg so as to not accidentally mask withdrawal symptoms (4) Cocaine abuse: Status: Acute Code(s): F14.10 - Cocaine abuse, uncomplicated (5) Opioid use disorder: Status: Acute Code(s): F11.99 - Opioid use, unspecified with unspecified opioid-induced disorder Greater than 50% of the session was spent on counseling and/or coordination of care Reason for contiued inpatient stay Substantial Risk for: other
[2020-11-18] MEDS: LORazepam 1 MG TABLET PO ×4 (08:48→20:06)
[2020-11-18] MEDS: Gabapentin 400 MG CAPSULE 800 MG PO ×3 (08:48→20:21)
[2020-11-18] MEDS: Buprenorphine/Naloxone 8/2 mg FILM 2 FILM SUBLINGUAL (09:32)
[2020-11-18] MEDS: Magnesium Hydrox/Alum Hydrox 30 ML ORAL.SUSP PO (16:10)
[2020-11-18 16:13] VITALS: BP 129/72; PULSE 74; RESP 16; O2SAT 97
[2020-11-18 18:00] VITALS: BP 137/77; PULSE 84; RESP 14; O2SAT 97
[2020-11-18] MEDS: traZODone HCL 100 MG TABLET PO (20:06)
[2020-11-18] MEDS: Mirtazapine 30 MG TABLET PO (20:06)
[2020-11-19] MEDS: LORazepam 1 MG TABLET PO ×5 (00:20→21:00)
[2020-11-19 08:40] VITALS: BP 130/80; PULSE 88; RESP 18; TEMP 36.6; O2SAT 98
[2020-11-19] MEDS: Gabapentin 400 MG CAPSULE 800 MG PO ×3 (09:13→21:00)
[2020-11-19] MEDS: Buprenorphine/Naloxone 8/2 mg FILM 2 FILM SUBLINGUAL (09:15)
--- NOTE | 2020-11-19 09:20 | HO.PSYCHPN ---
Subjective Subjective Date of Service: 11/19/20 Reason For Visit: depression, SI, etoh detox Interim History: Patient was seen and discussed in rounds today. He has been stable and is doing better and is more comfortable. He is scoring very low on the detox protocol and alive being on regular Ativan I will discontinue the CIWA. Eating and sleeping adequately. No complaints or side effects. He will notify the nurses if he is feeling signs of withdrawals Continue current regimen and plans Review of Systems Review of Systems Yes all other systems are reviewed and are negative Mental Status Exam Mental Status Exam Narrative: In today's visit he is alert, oriented and pleasant. Normal speech. Good eye contact. Affect is appropriate and varied. No signs of psychosis. Cognitively is intact. No SI/HI. Judgment intact Diagnostics Vital Signs (24Hr): Vital Signs - 24 hr 11/18/20 16:13 11/18/20 18:00 Pulse Rate 74 84 Respiratory Rate 16 14 Blood Pressure 129/72 137/77 Pulse Oximetry 97 97 Body Mass Index 32.5 Labs Results: 11/15/20 21:24 Medications Medications Current Medications Generic Name Dose Route Start Last Admin Trade Name Freq PRN Reason Stop Dose Admin Al Hydroxide/Mg Hydroxide 30 ml 11/16/20 13:55 11/18/20 16:10 Magnesium Hydrox/Alum Hydrox 30 Ml Oral.Susp PO 30 ml Q6H PRN Administration Heartburn/Nausea Buprenorphine/Naloxone 2 film 11/16/20 09:00 11/19/20 09:15 Buprenorphine/Naloxone 8/2 Mg Film SUBLINGUAL 2 film DAILY FOUZIA Administration Buspirone HCl 15 mg 11/15/20 23:20 11/16/20 08:26 Buspirone Hcl 5 Mg Tablet PO 15 mg BID PRN Administration Anxiety Gabapentin 800 mg 11/16/20 09:15 11/19/20 09:13 Gabapentin 400 Mg Capsule PO 800 mg TID FOUZIA Administration Hydroxyzine HCl 50 mg 11/15/20 23:20 Hydroxyzine Hcl 50 Mg Tablet PO TID PRN anxiety Ibuprofen 600 mg 11/15/20 23:20 Ibuprofen 600 Mg Tablet PO BID PRN Pain Lorazepam 2 mg 11/16/20 16:19 11/16/20 16:50 Lorazepam 1 Mg Tablet PO 2 mg Q2H PRN Administration alcohol withdrawal symptoms Lorazepam 1 mg 11/16/20 16:19 11/19/20 00:20 Lorazepam 1 Mg Tablet PO 1 mg Q2H PRN Administration Alcohol Withdrawal Lorazepam 1 mg 11/17/20 17:00 11/19/20 09:14 Lorazepam 1 Mg Tablet PO 11/19/20 23:00 1 mg QID FOUZIA Administration Lorazepam 1 mg 11/20/20 09:00 Lorazepam 1 Mg Tablet PO 11/22/20 23:59 TID FOUZIA Lorazepam 1 mg 11/23/20 09:00 Lorazepam 1 Mg Tablet PO 11/24/20 23:59 BID FOUZIA Magnesium Hydroxide 30 ml 11/16/20 13:55 Milk Of Magnesia 30 Ml Oral.Susp PO DAILY PRN Constipation Mirtazapine 30 mg 11/15/20 23:30 11/18/20 20:06 Mirtazapine 30 Mg Tablet PO 30 mg BEDTIME FOUZIA Administration Nicotine 21 mg 11/16/20 13:55 Nicotine 21 Mg Patch.Td24 TRANSDERMA DAILY PRN smoking cessation Nicotine Polacrilex 4 mg 11/16/20 13:55 11/17/20 23:13 Nicotine Polacrilex 2 Mg Gum BUCCAL 4 mg Q2H PRN Administration Nicotine Cravings Trazodone HCl 100 mg 11/16/20 21:00 11/18/20 20:06 Trazodone Hcl 100 Mg Tablet PO 100 mg BEDTIME FOUZIA Administration Allergies Allergies Allergy/AdvReac Type Severity Reaction Status Date / Time No Known Allergies Allergy Unverified 02/10/20 19:52 [No Known Allergies*] Assessment & Plan Assessment & Plan (1) Alcohol use disorder: Status: Acute Assessment and Plan: Hx of alcohol induced Seizures (2) Alcohol withdrawal: Qualifiers: Complication of substance-induced condition: uncomplicated Qualified Code(s): F10.230 - Alcohol dependence with withdrawal, uncomplicated Status: Acute Code(s): F10.239 - Alcohol dependence with withdrawal, unspecified (3) Mood disorder: Status: Acute Code(s): F39 - Unspecified mood [affective] disorder Assessment and Plan: IMPRESSION: Patient is a 50-year-old male with history of alcohol dependence and history of withdrawal seizures, cocaine abuse, depression and anxiety who presents for depression, SI in the face of relapse and need for alcohol detox alcohol relapse. Patient reports relatively good mood on Wellbutrin. However he reports self-deprecating thoughts started to Whittle away it is mood, leaving him increasingly vulnerable to relapse. Patient also endorses ongoing anxiety. He reports SI has fully resolved; he has a history of attempt by overdose. Will admit for safety and medication management and detox. Remains depressed, but no SI Continues to have withdrawal symptoms so will increase Ativan taper PLAN: Patient on CIWA Increased taper: Ativan 1 mg q.i.d.. for 3 days, followed by taper given the fact that patient has history of alcohol withdrawal seizures Ativan 2 mg q.2h p.r.n. for alcohol breakthrough withdrawal symptoms moderate to severe Ativan 1 mg Q to p.r.n. for breakthrough symptoms mild to moderate Gabapentin 800 mg t.i.d. continued in the ED; will continue now to protect from seizures; not sure if patient was taking regularly prior to this admission; however will have to consider how to handle this medication given that patient has history of severe alcohol abuse HOLD Wellbutrin for now given the fact that patient is in alcohol withdrawal and do not want to risk of lowering seizure threshold (though there is low incidence of this) Lower trazodone to 100 mg so as to not accidentally mask withdrawal symptoms (4) Cocaine abuse: Status: Acute Code(s): F14.10 - Cocaine abuse, uncomplicated (5) Opioid use disorder: Status: Acute Code(s): F11.99 - Opioid use, unspecified with unspecified opioid-induced disorder Greater than 50% of the session was spent on counseling and/or coordination of care Reason for contiued inpatient stay Substantial Risk for: other
[2020-11-19] MEDS: busPIRone HCl 5 MG TABLET 15 MG PO ×2 (10:43→21:00)
[2020-11-19] MEDS: hydrOXYzine HCL 50 MG TABLET PO (13:33)
[2020-11-19] MEDS: Nicotine Polacrilex 2 MG GUM 4 MG BUCCAL (13:35)
[2020-11-19] MEDS: Mirtazapine 30 MG TABLET PO (21:00)
[2020-11-19] MEDS: traZODone HCL 100 MG TABLET PO (21:00)
[2020-11-20] MEDS: LORazepam 1 MG TABLET PO ×4 (04:38→20:34)
[2020-11-20 04:40] VITALS: BP 116/71; PULSE 84; RESP 18; TEMP 36.4; O2SAT 94
[2020-11-20] MEDS: Gabapentin 400 MG CAPSULE 800 MG PO ×3 (09:01→20:34)
[2020-11-20] MEDS: Milk of Magnesia 30 ML ORAL.SUSP PO (09:02)
[2020-11-20] MEDS: Buprenorphine/Naloxone 8/2 mg FILM 2 FILM SUBLINGUAL (09:02)
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
[2020-11-20] MEDS: buPROPion HCl XL 150 MG TAB.ER.24H PO (12:11)
[2020-11-20] MEDS: hydrOXYzine HCL 50 MG TABLET PO ×2 (13:01→20:37)
[2020-11-20 18:00] VITALS: BP 126/63; PULSE 75; RESP 18; TEMP 36.8; O2SAT 96
[2020-11-20] MEDS: Mirtazapine 30 MG TABLET PO (20:34)
[2020-11-20] MEDS: traZODone HCL 100 MG TABLET PO (20:34)
[2020-11-20] MEDS: busPIRone HCl 5 MG TABLET 15 MG PO (20:37)
[2020-11-21 06:00] VITALS: BP 106/59; PULSE 68; RESP 18; TEMP 36.6; O2SAT 94
[2020-11-21] MEDS: LORazepam 1 MG TABLET PO ×3 (08:35→20:10)
[2020-11-21] MEDS: buPROPion HCl XL 300 MG TAB.ER.24H PO (08:35)
[2020-11-21] MEDS: Gabapentin 400 MG CAPSULE 800 MG PO ×3 (08:35→20:09)
[2020-11-21] MEDS: Buprenorphine/Naloxone 8/2 mg FILM 2 FILM SUBLINGUAL (09:33)
--- NOTE | 2020-11-21 16:44 | P.PNPSI_ITS ---
Subjective Subjective Date of Service: 11/21/20 Reason For Visit: depression, SI, etoh detox Interim History: pt reports withdrawal symptoms starting to wind down; no longer sweaty or nasueaus. Pt says he is feeling depressed but denies any SI; also anxious, both of which he says is triggered by thinking of where he'll live. Pt and teletypewriter operator discussed medication options and he agrees to hold off making too many med changes until withdrawal a little more complete. Discussed disulfiram. Automatic Spinning Lathe Setter gave usual talk about risks/side-effects vs benefits and thoroughly went over risk factors. Patient is ambivalent; he reported history of Hep C, successfully treated for in 2004 but concern about his liver since he's also on Suboxone; however, this is weighed against his devastating cycle of relapse which he feels continues to derail his progress and knows is also negatively impacting his health. He says he'll think more about it. Medication Compliance: Yes Side effects from medications: No Attending Groups: No Mental Status Exam Mental Status Exam Narrative: Pt is alert and oriented; behavior is cooperative, calm, lying in bed; dressed in hospital gown with adequate hygiene; mood is described as depressed and anxious and affect congruent; eye contact appropriate; Speech is normal rate, volume and prosody and not pressured; no psychomotor agitation/retardation present; thought process is organized, linear, logical and goal directed. Thought content is on getting treatment and otherwise pertinent to relevant topics and without any delusional content, paranoid ideations or grandiosity; denies any SI/HI. There is no evidence of perceptual disturbance. Patients insight and judgment appear intact. Diagnostics Vital Signs (24Hr): Vital Signs - 24 hr 11/20/20 18:00 11/21/20 06:00 Temperature 98.3 F 97.9 F Pulse Rate 75 68 Respiratory Rate 18 18 Blood Pressure 126/63 106/59 L Pulse Oximetry 96 94 Body Mass Index 32.5 Labs Results: 11/15/20 21:24 Medications Medications Current Medications Generic Name Dose Route Start Last Admin Trade Name Freq PRN Reason Stop Dose Admin Al Hydroxide/Mg Hydroxide 30 ml 11/16/20 13:55 11/18/20 16:10 Magnesium Hydrox/Alum Hydrox 30 Ml Oral.Susp PO 30 ml Q6H PRN Administration Heartburn/Nausea Buprenorphine/Naloxone 2 film 11/16/20 09:00 11/21/20 09:33 Buprenorphine/Naloxone 8/2 Mg Film SUBLINGUAL 2 film DAILY FOUZIA Administration Bupropion HCl 300 mg 11/21/20 09:00 11/21/20 08:35 Bupropion Hcl Xl 300 Mg Tab.Er.24h PO 300 mg DAILY FOUZIA Administration Buspirone HCl 15 mg 11/15/20 23:20 11/20/20 20:37 Buspirone Hcl 5 Mg Tablet PO 15 mg BID PRN Administration Anxiety Gabapentin 800 mg 11/16/20 09:15 11/21/20 14:49 Gabapentin 400 Mg Capsule PO 800 mg TID FOUZIA Administration Hydroxyzine HCl 50 mg 11/15/20 23:20 11/20/20 20:37 Hydroxyzine Hcl 50 Mg Tablet PO 50 mg TID PRN Administration anxiety Ibuprofen 600 mg 11/15/20 23:20 Ibuprofen 600 Mg Tablet PO BID PRN Pain Lorazepam 1 mg 11/20/20 09:00 11/21/20 14:50 Lorazepam 1 Mg Tablet PO 11/22/20 23:59 1 mg TID FOUZIA Administration Lorazepam 1 mg 11/23/20 09:00 Lorazepam 1 Mg Tablet PO 11/24/20 23:59 BID FOUZIA Magnesium Hydroxide 30 ml 11/16/20 13:55 11/20/20 09:02 Milk Of Magnesia 30 Ml Oral.Susp PO 30 ml DAILY PRN Administration Constipation Mirtazapine 30 mg 11/15/20 23:30 11/20/20 20:34 Mirtazapine 30 Mg Tablet PO 30 mg BEDTIME FOUZIA Administration Nicotine 21 mg 11/16/20 13:55 Nicotine 21 Mg Patch.Td24 TRANSDERMA DAILY PRN smoking cessation Nicotine Polacrilex 4 mg 11/16/20 13:55 11/19/20 13:35 Nicotine Polacrilex 2 Mg Gum BUCCAL 4 mg Q2H PRN Administration Nicotine Cravings Trazodone HCl 100 mg 11/16/20 21:00 11/20/20 20:34 Trazodone Hcl 100 Mg Tablet PO 100 mg BEDTIME FOUZIA Administration Allergies Allergies Allergy/AdvReac Type Severity Reaction Status Date / Time No Known Allergies Allergy Unverified 02/10/20 19:52 [No Known Allergies*] Assessment & Plan Assessment & Plan (1) Alcohol use disorder: Status: Acute Assessment and Plan: Hx of alcohol induced Seizures (2) Alcohol withdrawal: Qualifiers: Complication of substance-induced condition: uncomplicated Qualified Code(s): F10.230 - Alcohol dependence with withdrawal, uncomplicated Status: Acute Code(s): F10.239 - Alcohol dependence with withdrawal, unspecified (3) Mood disorder: Status: Acute Code(s): F39 - Unspecified mood [affective] disorder Assessment and Plan: IMPRESSION: Patient is a 50-year-old male with history of alcohol dependence and history of withdrawal seizures, cocaine abuse, depression and anxiety who presents for depression, SI in the face of relapse and need for alcohol detox alcohol relapse. Patient reports relatively good mood on Wellbutrin. However he reports self-deprecating thoughts started to Whittle away it is mood, leaving him increasingly vulnerable to relapse. Patient also endorses ongoing anxiety. He reports SI has fully resolved; he has a history of attempt by overdose. Will admit for safety and medication management and detox. Remains depressed, but no SI Continues to have withdrawal symptoms but seems to be winding down. He is currently on Ativan Taper pt considering Disulfiram Patient needs to remain on unit for continued Atiavan taper and for medication management such as increasing Mirtazapine and possibly starting on Disulfiram which will need initial labs for monitoring tolerance PLAN: CIWA discontinued; pt remains on Ativan taper will consider increasing Remeron to 45mg for ongoing anxiety/depression restarted Wellbutrin and titrated back to home dose of 300mgXL) will leave ativan 1mg prn for any break through symptoms Continue Gabapentin 800 mg t.i.d. (patient says that when he drinks he does not take his gabapentin and knows that the combination is dangerous) trazodone to 150 mg home dose Automatic Spinning Lathe Setter thoroughly discussed risks/side-effects vs benefits of disulfiram. Laurie west is ambivalent; he reported history of Hep C, successfully treated for in 2004 but has concern about his liver since he's also on Suboxone; however, he is weighing this against the ramifications of continuing to relapse on alcohol (and subsequently cocaine) which he feels derails his progress and is detrimental to his physical well-being (4) Cocaine abuse: Status: Acute Code(s): F14.10 - Cocaine abuse, uncomplicated (5) Opioid use disorder: Status: Acute Code(s): F11.99 - Opioid use, unspecified with unspecified opioid-induced disorder Greater than 50% of the session was spent on counseling and/or coordination of care Reason for contiued inpatient stay Substantial Risk for: med/psych decompensation
[2020-11-21] MEDS: busPIRone HCl 5 MG TABLET 15 MG PO (17:42)
[2020-11-21 18:00] VITALS: BP 153/90; PULSE 76; TEMP 36.9
[2020-11-21] MEDS: Mirtazapine 30 MG TABLET PO (20:09)
[2020-11-21] MEDS: hydrOXYzine HCL 50 MG TABLET PO (20:09)
[2020-11-21] MEDS: traZODone HCL 100 MG TABLET PO (20:10)
[2020-11-22 06:00] VITALS: BP 122/59; PULSE 64; RESP 16; TEMP 36.2; O2SAT 93
[2020-11-22] MEDS: Buprenorphine/Naloxone 8/2 mg FILM 2 FILM SUBLINGUAL (08:59)
[2020-11-22] MEDS: Gabapentin 400 MG CAPSULE 800 MG PO ×3 (08:59→20:55)
[2020-11-22] MEDS: LORazepam 1 MG TABLET PO ×3 (09:00→20:55)
[2020-11-22] MEDS: buPROPion HCl XL 300 MG TAB.ER.24H PO (09:00)
--- NOTE | 2020-11-22 09:43 | P.PNPSI_ITS ---
Subjective Subjective Date of Service: 11/22/20 Reason For Visit: depression, SI, etoh detox Interim History: patient reports that withdrawal seems to be at its tail end. He continues to feel depressed but denies any SI. He also endorses anxiety. Patient agrees to increase his mirtazapine to 45 mg; he also agrees to hold off increasing Wellbutrin further given his anxiety, but understands that remains an option. Patient said he has decided against starting disulfiram given his his tory of hep C and his concerns about injuring his liver. He is hopeful about getting into a [facility] as soon as it is available. Shoe Repairer Helper discussed the benefit of patient pushing himself to go to groups, which patient says he will do. He says normally he is initially anxious but he is able to muscle through it and get benefit. This is how he has handled AA in the past which he wants to get back into and says that being in this supportive environment has helped him stay sober. Mental Status Exam Mental Status Exam Narrative: Pt is alert and oriented; behavior is cooperative, calm, lying in bed; dressed in hospital gown with adequate hygiene; mood is described as depressed and anxious and affect congruent; eye contact appropriate; Speech is normal rate, volume and prosody and not pressured; no psychomotor agitation/retardation present; thought process is organized, linear, logical and goal directed. Thought content is on getting treatment and otherwise pertinent to relevant topics and without any delusional content, paranoid ideations or grandiosity; denies any SI/HI. There is no evidence of perceptual disturbance. Patients insight and judgment appear intact. Diagnostics Vital Signs (24Hr): Vital Signs - 24 hr 11/21/20 18:00 11/22/20 06:00 Temperature 98.4 F 97.1 F Pulse Rate 76 64 Respiratory Rate 16 Blood Pressure 153/90 H 122/59 L Pulse Oximetry 93 Body Mass Index 32.5 Labs Results: 11/15/20 21:24 Medications Medications Current Medications Generic Name Dose Route Start Last Admin Trade Name Freq PRN Reason Stop Dose Admin Al Hydroxide/Mg Hydroxide 30 ml 11/16/20 13:55 11/18/20 16:10 Magnesium Hydrox/Alum Hydrox 30 Ml Oral.Susp PO 30 ml Q6H PRN Administration Heartburn/Nausea Buprenorphine/Naloxone 2 film 11/16/20 09:00 11/22/20 08:59 Buprenorphine/Naloxone 8/2 Mg Film SUBLINGUAL 2 film DAILY FOUZIA Administration Bupropion HCl 300 mg 11/21/20 09:00 11/22/20 09:00 Bupropion Hcl Xl 300 Mg Tab.Er.24h PO 300 mg DAILY FOUZIA Administration Buspirone HCl 15 mg 11/15/20 23:20 11/21/20 17:42 Buspirone Hcl 5 Mg Tablet PO 15 mg BID PRN Administration Anxiety Gabapentin 800 mg 11/16/20 09:15 11/22/20 08:59 Gabapentin 400 Mg Capsule PO 800 mg TID FOUZIA Administration Hydroxyzine HCl 50 mg 11/15/20 23:20 11/21/20 20:09 Hydroxyzine Hcl 50 Mg Tablet PO 50 mg TID PRN Administration anxiety Ibuprofen 600 mg 11/15/20 23:20 Ibuprofen 600 Mg Tablet PO BID PRN Pain Lorazepam 1 mg 11/20/20 09:00 11/22/20 09:00 Lorazepam 1 Mg Tablet PO 11/22/20 23:59 1 mg TID FOUZIA Administration Lorazepam 1 mg 11/23/20 09:00 Lorazepam 1 Mg Tablet PO 11/24/20 23:59 BID FOUZIA Magnesium Hydroxide 30 ml 11/16/20 13:55 11/20/20 09:02 Milk Of Magnesia 30 Ml Oral.Susp PO 30 ml DAILY PRN Administration Constipation Mirtazapine 30 mg 11/15/20 23:30 11/21/20 20:09 Mirtazapine 30 Mg Tablet PO 30 mg BEDTIME FOUZIA Administration Nicotine 21 mg 11/16/20 13:55 Nicotine 21 Mg Patch.Td24 TRANSDERMA DAILY PRN smoking cessation Nicotine Polacrilex 4 mg 11/16/20 13:55 11/19/20 13:35 Nicotine Polacrilex 2 Mg Gum BUCCAL 4 mg Q2H PRN Administration Nicotine Cravings Trazodone HCl 100 mg 11/16/20 21:00 11/21/20 20:10 Trazodone Hcl 100 Mg Tablet PO 100 mg BEDTIME FOUZIA Administration Allergies Allergies Allergy/AdvReac Type Severity Reaction Status Date / Time No Known Allergies Allergy Unverified 02/10/20 19:52 [No Known Allergies*] Assessment & Plan Assessment & Plan (1) Alcohol use disorder: Status: Acute Assessment and Plan: Hx of alcohol induced Seizures (2) Alcohol withdrawal: Qualifiers: Complication of substance-induced condition: uncomplicated Qualified Code(s): F10.230 - Alcohol dependence with withdrawal, uncomplicated Status: Acute Code(s): F10.239 - Alcohol dependence with withdrawal, unspecified (3) Mood disorder: Status: Acute Code(s): F39 - Unspecified mood [affective] disorder Assessment and Plan: IMPRESSION: Patient is a 50-year-old male with history of alcohol dependence and history of withdrawal seizures, cocaine abuse, depression and anxiety who presents for depression, SI in the face of relapse and need for alcohol detox alcohol relapse. Patient reports relatively good mood on Wellbutrin. However he reports self-deprecating thoughts started to Whittle away it is mood, leaving him increasingly vulnerable to relapse. Patient also endorses ongoing anxiety. He reports SI has fully resolved; he has a history of attempt by overdose. Will admit for safety and medication management and detox. Patient is withdrawal is nearing its end as is Ativan taper. Patient decides against Disulfiram. He would like to get into a [facility] and back into a for his sobriety. Patient remains depressed and anxious but denies any SI. PLAN: CIWA discontinued; pt remains on Ativan taper increasing Remeron to 45mg for ongoing anxiety/depression restarted Wellbutrin and titrated back to home dose of 300mgXL) Continue Gabapentin 800 mg t.i.d. (patient says that when he drinks he does not take his gabapentin and knows that the combination is dangerous) trazodone to 150 mg home dose Shoe Repairer Helper thoroughly discussed risks/side-effects vs benefits of disulfiram. Patient decided against it; he reported history of Hep C, successfully treated for in 2004 but has concern about his liver since he's also on Suboxone (4) Cocaine abuse: Status: Acute Code(s): F14.10 - Cocaine abuse, uncomplicated (5) Opioid use disorder: Status: Acute Code(s): F11.99 - Opioid use, unspecified with unspecified opioid-induced disorder Greater than 50% of the session was spent on counseling and/or coordination of care Reason for contiued inpatient stay Substantial Risk for: med/psych decompensation
[2020-11-22 16:34] VITALS: BP 125/70; PULSE 68; TEMP 36.2
[2020-11-22] MEDS: Nicotine 21 MG PATCH.TD24 TRANSDERMA (17:05)
[2020-11-22] MEDS: busPIRone HCl 5 MG TABLET 15 MG PO (17:05)
[2020-11-22] MEDS: Nicotine Polacrilex 2 MG GUM 4 MG BUCCAL (17:05)
[2020-11-22] MEDS: Mirtazapine 15 MG TABLET 45 MG PO (20:55)
[2020-11-22] MEDS: traZODone HCL 50 MG TABLET 150 MG PO (20:56)
[2020-11-23 06:00] VITALS: BP 116/57; PULSE 66; RESP 22; TEMP 36.4; O2SAT 94
[2020-11-23 07:00] VITALS: BMI 31.1
[2020-11-23] MEDS: Gabapentin 400 MG CAPSULE 800 MG PO ×3 (08:52→20:24)
[2020-11-23] MEDS: LORazepam 1 MG TABLET PO ×2 (08:52→20:25)
[2020-11-23] MEDS: buPROPion HCl XL 300 MG TAB.ER.24H PO (08:52)
[2020-11-23] MEDS: busPIRone HCl 5 MG TABLET 15 MG PO ×2 (08:53→17:52)
[2020-11-23] MEDS: Buprenorphine/Naloxone 8/2 mg FILM 2 FILM SUBLINGUAL (08:54)
--- NOTE | 2020-11-23 09:28 | HO.PSYCHPN ---
Subjective Subjective Date of Service: 11/23/20 Reason For Visit: depression, SI, etoh detox Interim History: Pt says that withdrawal is pretty much complete; he still feels depressed and anxious but no SI. Pt says he still has trouble sleeping, which is chronic; he says it takes him 1-2 hours after trazodone before he falls alseep. Pt denies nightmares. He reports that at night, he's not specifically anxious at night but reports that he lays in bed, thinking about various things. Relocation Director discussed option of trying Prazosin since it may help him feel more calm at bedtime (clonidine can also lower heart rate); pt agreed to trial of this med (proposal manager writer discussed risks/side-effects with patient). Relocation Director discussed importance of going to groups to which he said he would. Medication Compliance: Yes Side effects from medications: No Attending Groups: No Mental Status Exam Mental Status Exam Narrative: Pt is alert and oriented; behavior is cooperative, calm, lying in bed; dressed in hospital gown with adequate hygiene; mood is described as depressed and anxious and affect congruent; eye contact appropriate; Speech is normal rate, volume and prosody and not pressured; no psychomotor agitation/retardation present; thought process is organized, linear, logical and goal directed. Thought content is on treatment, thinking about going to [facility] and otherwise pertinent to relevant topics and without any delusional content, paranoid ideations or grandiosity; denies any SI/HI. There is no evidence of perceptual disturbance. Patients insight and judgment appear intact. Diagnostics Vital Signs (24Hr): Vital Signs - 24 hr 11/22/20 16:34 11/23/20 06:00 Temperature 97.2 F 97.6 F Pulse Rate 68 66 Respiratory Rate 22 H Blood Pressure 125/70 116/57 L Pulse Oximetry 94 Body Mass Index 32.5 Labs Results: 11/15/20 21:24 Medications Medications Current Medications Generic Name Dose Route Start Last Admin Trade Name Freq PRN Reason Stop Dose Admin Al Hydroxide/Mg Hydroxide 30 ml 11/16/20 13:55 11/18/20 16:10 Magnesium Hydrox/Alum Hydrox 30 Ml Oral.Susp PO 30 ml Q6H PRN Administration Heartburn/Nausea Buprenorphine/Naloxone 2 film 11/16/20 09:00 11/23/20 08:54 Buprenorphine/Naloxone 8/2 Mg Film SUBLINGUAL 2 film DAILY FOUZIA Administration Bupropion HCl 300 mg 11/21/20 09:00 11/23/20 08:52 Bupropion Hcl Xl 300 Mg Tab.Er.24h PO 300 mg DAILY FOUZIA Administration Buspirone HCl 15 mg 11/15/20 23:20 11/23/20 08:53 Buspirone Hcl 5 Mg Tablet PO 15 mg BID PRN Administration Anxiety Gabapentin 800 mg 11/16/20 09:15 11/23/20 08:52 Gabapentin 400 Mg Capsule PO 800 mg TID FOUZIA Administration Hydroxyzine HCl 50 mg 11/15/20 23:20 11/21/20 20:09 Hydroxyzine Hcl 50 Mg Tablet PO 50 mg TID PRN Administration anxiety Ibuprofen 600 mg 11/15/20 23:20 Ibuprofen 600 Mg Tablet PO BID PRN Pain Lorazepam 1 mg 11/23/20 09:00 11/23/20 08:52 Lorazepam 1 Mg Tablet PO 11/24/20 23:59 1 mg BID FOUZIA Administration Magnesium Hydroxide 30 ml 11/16/20 13:55 11/20/20 09:02 Milk Of Magnesia 30 Ml Oral.Susp PO 30 ml DAILY PRN Administration Constipation Mirtazapine 45 mg 11/22/20 21:00 11/22/20 20:55 Mirtazapine 15 Mg Tablet PO 45 mg BEDTIME FOUZIA Administration Nicotine 21 mg 11/16/20 13:55 11/22/20 17:05 Nicotine 21 Mg Patch.Td24 TRANSDERMA 21 mg DAILY PRN Administration smoking cessation Nicotine Polacrilex 4 mg 11/16/20 13:55 11/22/20 17:05 Nicotine Polacrilex 2 Mg Gum BUCCAL 4 mg Q2H PRN Administration Nicotine Cravings Trazodone HCl 150 mg 11/22/20 21:00 11/22/20 20:56 Trazodone Hcl 50 Mg Tablet PO 150 mg BEDTIME FOUZIA Administration Allergies Allergies Allergy/AdvReac Type Severity Reaction Status Date / Time No Known Allergies Allergy Unverified 02/10/20 19:52 [No Known Allergies*] Assessment & Plan Assessment & Plan (1) Alcohol use disorder: Status: Acute Assessment and Plan: Hx of alcohol induced Seizures (2) Cocaine abuse: Status: Acute Code(s): F14.10 - Cocaine abuse, uncomplicated (3) Opioid use disorder: Status: Acute Code(s): F11.99 - Opioid use, unspecified with unspecified opioid-induced disorder (4) MDD (major depressive disorder), recurrent episode, severe: Status: Acute Code(s): F33.2 - Major depressive disorder, recurrent severe without psychotic features (5) Chronic post-traumatic stress disorder (PTSD): Status: Acute Code(s): F43.12 - Post-traumatic stress disorder, chronic IMPRESSION: Patient is a 50-year-old male with history of alcohol dependence and history of withdrawal seizures, cocaine abuse, depression and anxiety who presents for depression, SI in the face of relapse and need for alcohol detox alcohol relapse. Patient reports relatively good mood on Wellbutrin. However he reports self-deprecating thoughts started to Whittle away it is mood, leaving him increasingly vulnerable to relapse. Patient also endorses ongoing anxiety. He reports SI has fully resolved; he has a history of attempt by overdose. Will admit for safety and medication management and detox. Patient is withdrawal is nearing its end as is Ativan taper. Patient decides against Disulfiram. He would like to get into a [facility] and back into a for his sobriety. Patient remains depressed and anxious but denies any SI. Agreed to increased Mirtazapine to 45mg and starting Prazosin (BP wnl) PLAN: START Prazosin 1mg at bedtime for trouble sleeping Ativan taper nearly concluded Continue Remeron to 45mg (increased from 30mg) for ongoing anxiety/depression Continue Wellbutrin titrated back to home dose of 300mgXL) Continue Gabapentin 800 mg t.i.d. (patient says that when he drinks he does not take his gabapentin and knows that the combination is dangerous) trazodone to 150 mg home dose Relocation Director thoroughly discussed risks/side-effects vs benefits of disulfiram. Patient decided against it; he reported history of Hep C, successfully treated for in 2004 but has concern about his liver since he's also on Suboxone Greater than 50% of the session was spent on counseling and/or coordination of care Reason for contiued inpatient stay Substantial Risk for: stable for discharge
[2020-11-23] MEDS: hydrOXYzine HCL 50 MG TABLET PO (17:53)
[2020-11-23 20:20] VITALS: BP 138/78; PULSE 90; TEMP 36.6
[2020-11-23 20:24] VITALS: BP 138/78; PULSE 90
[2020-11-23] MEDS: Mirtazapine 15 MG TABLET 45 MG PO (20:24)
[2020-11-23] MEDS: Prazosin HCL 1 MG CAPSULE PO (20:24)
[2020-11-23] MEDS: traZODone HCL 50 MG TABLET 150 MG PO (20:25)
[2020-11-24 08:28] VITALS: PULSE 64; RESP 18; TEMP 36.1; O2SAT 95
[2020-11-24] MEDS: LORazepam 1 MG TABLET PO (09:06)
[2020-11-24] MEDS: buPROPion HCl XL 300 MG TAB.ER.24H PO (09:06)
[2020-11-24] MEDS: Gabapentin 400 MG CAPSULE 800 MG PO (09:06)
[2020-11-24] MEDS: Buprenorphine/Naloxone 8/2 mg FILM 2 FILM SUBLINGUAL (09:07)
[2020-11-24] MEDS: Nicotine 21 MG PATCH.TD24 TRANSDERMA (09:43)
[2020-11-24] MEDS: Nicotine Polacrilex 2 MG GUM 4 MG BUCCAL (09:43)
[2020-11-24] MEDS: busPIRone HCl 5 MG TABLET 15 MG PO (09:43)
--- NOTE | 2020-11-24 11:43 | P.DS_ITS ---
DS: Providers Provider Date of Service: 11/24/20 Date of admission: 11/16/20 11:44 Date of discharge: 11/24/20 Primary care physician: Unknown Physician Attending physician on admission: Alexander Rose Attending physician on discharge: Alexander Rose DS: Diagnosis Discharge Diagnosis (1) Alcohol use disorder: Status: Chronic (2) Cocaine abuse: Status: Chronic (3) Opioid use disorder: Status: Chronic (4) MDD (major depressive disorder), recurrent episode, severe: Status: Chronic (5) Chronic post-traumatic stress disorder (PTSD): Status: Chronic DS: Medications Discharge Medications Home Medications: Previous Rx's Medication Instructions Recorded buprenorphine-naloxone [Suboxone] 2 film SUBLINGUAL DAILY 30 Days 11/24/20 #60 ea bupropion HCl [Wellbutrin XL] 300 mg PO QAM 30 Days #30 tab 11/24/20 buspirone 15 mg PO BID 30 Days #180 tab 11/24/20 gabapentin 800 mg PO TID 30 Days #90 tab 11/24/20 hydroxyzine pamoate 50 mg PO TID PRN 30 Days #60 cap 11/24/20 mirtazapine 45 mg PO BEDTIME 30 Days #90 tab 11/24/20 nicotine (polacrilex) 4 mg BUCCAL Q2H PRN 30 Days #100 ea 11/24/20 prazosin 1 mg PO BEDTIME 30 Days #30 cap 11/24/20 trazodone 150 mg PO BEDTIME 30 Days #30 tab 11/24/20 Discharge Plan Discharge Patient Disposition: Xfer Inpatient Rehab Fac Discharge Diagnosis: MDD, recurrent, severe w/out psychosis in partial remission Referrals: Suboxone Follow up Appointment [Other] - 12/22/20 2:00 pm (This appointment is in-person) [facility] [Other] - 11/24/20 12:30 pm (You will be discharging to [facility] this afternoon for a CSS admission) Caitlyn Greenberg NP [Nurse Practitioner] - 1 Week Discharge Medications: New nicotine (polacrilex) 2 mg Gum 4 mg buccal Q2H PRN (Reason: Nicotine Cravings) 30 Days Qty: 100 RF: 1 buspirone 5 mg Tablet 15 mg PO BID 30 Days Qty: 180 RF: 1 mirtazapine 15 mg Tablet 45 mg PO BEDTIME 30 Days Qty: 90 RF: 1 prazosin 1 mg Capsule 1 mg PO BEDTIME 30 Days Qty: 30 RF: 1 Changed gabapentin 800 mg tablet 800 mg PO TID 30 Days Qty: 90 RF: 1 trazodone 150 mg tablet 150 mg PO BEDTIME 30 Days Qty: 30 RF: 1 bupropion HCl [Wellbutrin XL] 300 mg tablet extended release 24 hr 300 mg PO QAM 30 Days Qty: 30 RF: 1 buprenorphine-naloxone [Suboxone] 8-2 mg film 2 film sublingual DAILY 30 Days Qty: 60 RF: 0 hydroxyzine pamoate 50 mg capsule 50 mg PO TID PRN (Reason: anxiety) 30 Days Qty: 60 RF: 1 Discontinued mirtazapine 30 mg Tablet 30 mg PO BEDTIME 30 Days Qty: 30 RF: 0 ibuprofen 600 mg Tablet 600 mg PO BID PRN (Reason: Pain) RF: 0 buspirone 15 mg Tablet 15 mg PO BID PRN (Reason: Anxiety) RF: 0 Discharge Orders: Discharge Order (Routine); Ordered 11/24/20 Ordered By: Alexander Rose Diet: regular diet Activity on Discharge: As tolerated Stand Alone Forms: Patient Portal Discharge page, Community Support Care Plan Goals: Maintain mood and safe behaviors Take medications as prescribed Continue to pursue sobriety Practice coping skills Continue with outpatient providers and reach out to them as needed Health Concerns: Mood instability and behaviors Alcohol and cocaine abuse Plan of Treatment: Follow up with your outpatient providers regarding above concerns Take medications as prescribed Assessment: Risk assessment at time of discharge: Patient has been observed closely by nursing and unit staff throughout admission; patient has not engaged in any behaviors that suggest dangerousness to self or others and has demonstrated appropriate behaviors and impulse control. Patient was interviewed prior to discharge and found to be fully oriented and without any SI or HI. Patient has insight and demonstrates good judgment in terms of wanting to pursue treatment. Patient is not in imminent risk of harm to self or others and has a safety plan that includes presenting to the closest ER or calling 911 if feeling unsafe. Patient Instructions: Abuse of Alcohol (DC) Mental Status Exam Mental Status Exam Narrative: Pt is alert and oriented; behavior is cooperative, calm, lying in bed; dressed in casual cloths; mood is described as better and affect congruent; eye contact appropriate; Speech is normal rate, volume and prosody and not pressured; no psychomotor agitation/retardation present; thought process is organized, linear, logical and goal directed. Thought content is on treatment, thinking about going to CSS and otherwise pertinent to relevant topics and without any delusional content, paranoid ideations or grandiosity; denies any SI/HI. There is no evidence of perceptual disturbance. Patients insight and judgment appear intact. DS: Summary Hospital Course Hospital Course: Patient is a 50-year-old male with history of alcohol dependence and history of withdrawal seizures, cocaine abuse, depression, Ptsd and anxiety who presents for depression, SI in the face of relapse and need for alcohol detox. patient admitted on CV. Patient was detoxed from alcohol using CIWA with p.r.n. Ativan and also with scheduled Ativan given that he has a history of of withdrawal seizures; his Wellbutrin was held during withdrawal but was restarted and titrated back to his home dose. On admission patient was depressed and anxious but denied SI saying it had fully resolved. He remained with depressed and anxious feelings for much of the admission, however his depression started to ana and his mood significantly improved once he found out that he was excepted to a CSS and would not be homeless. Patient's mirtazapine was increased to 45 mg and his BuSpar own was scheduled instead of left as a p.r.n., to help better address patient's anxiety; Patient had continued trouble sleeping and so was started on prazosin 1 mg which he said was helpful, blood pressures remained within normal limits. Butcher'S Assistant and patient discussed maintenance medications; he is already on gabapentin and knows not to combine this with alcohol and cocaine abuse (which he says he does not), but he also considered disulfiram. Patient decided against going on and abuse since he has a history of hep C and does not want to risk any liver injury. Patient continued to deny any suicidal or homicidal ideation during admission and demonstrated appropriate behaviors and impulse control on the unit. Patient completed detox and Ativan taper without incident. By the end of admission, his mood was better, he was without any SI, future oriented and hopeful about staying sober, eager to get into his CSS program and back into AA which he says has been very helpful in the past. Patient is not an imminent risk for harm to self or others; he is going to a structured program for continued treatment. His request for discharge is honored. Butcher'S Assistant discussed risks/side effects of medication regimen, including prazosin, gabapentin, mirtazpine and wellbutrin; patient communicated understanding of benefits, risks and side-effects of medications and wants to continue with regimen. Patient agrees that current doses seem appropriate and denies medication side-effects. Patient agrees to reach out to outpatient provider with any medications concerns. Status at Discharge Overall status at discharge: patient is progressing back to baseline Time Spent with Patient Time attestation: Total time spent providing and/or coordinating discharge services: Time spent: Greater than 30 minutes
== END 2020-11-24 12:30 | DRG 751 ==
LOC: HO.ED 11-16 00:45 → HO.PM5 11-16 11:55
PROVIDERS: Admitting Provider Psychiatry & Neurology Psychiatry; Emergency Provider Emergency Medicine; Visit Provider Psychiatry & Neurology Psychiatry
DX: F33.2 Major depressive disorder, recurrent severe without psychotic features (principal); R45.851 Suicidal ideations; F11.20 Opioid dependence, uncomplicated; F43.12 Post-traumatic stress disorder, chronic; F10.239 Alcohol dependence with withdrawal, unspecified; F17.210 Nicotine dependence, cigarettes, uncomplicated; Z71.6 Tobacco abuse counseling; Z20.822 Contact with and (suspected) exposure to COVID-19; Z59.0 Homelessness; F14.10 Cocaine abuse, uncomplicated; Z79.899 Other long term (current) drug therapy
CPT/HCPCS: 36415; 80048; 80076; 80307; 83735; 87635; 93005; 99285; J2060

== ENCOUNTER 2020-12-28 21:43 | Inpatient (IN) | payer MEDICAID, SELFPAY ==
[2020-12-28 21:57] VITALS: BP 136/66; PULSE 99; RESP 13; TEMP 36.8; O2SAT 95; BMI 30.3
[2020-12-28 21:58] VITALS: BP 130/80; PULSE 110; O2SAT 95
--- NOTE | 2020-12-28 22:25 | ECG_ITS ---
Test Reason : OVERDOSE Blood Pressure : / mmHG Vent. Rate : 096 BPM Atrial Rate : 096 BPM P-R Int : 144 ms QRS Dur : 084 ms QT Int : 350 ms P-R-T Axes : 053 007 012 degrees QTc Int : 442 ms Normal sinus rhythm Diffuse ST elevations - consider pericarditis. Borderline ECG When compared with ECG of 16-NOV-2020 11:20, ST elevations likely due to pericarditis. Please correlate to clinical symptoms Referred By: Ramirez Stapleton Electronically Signed By:Dario Pratt
--- NOTE | 2020-12-28 22:30 | ED_ITS ---
HPI - Overdose General Chief Complaint: Overdose Stated Complaint: od Time Seen by Provider: 12/28/20 22:22 Source: patient and EMS Mode of arrival: EMS Limitations: no limitations History of Present Illness HPI Narrative: 50-year-old male came in for evaluation of major depression and suicidal attempt. This is a 50-year-old male with history of depression patient is on Wellbutrin for depression, because financial situation and patient lost his job and lost his apartment patient now is homeless, patient feeling depressed and suicidal. Patient overdosed on about 20 pills of Wellbutrin 200 mg XL each. Shortly after the patient overdosed on his medicine he walked to [employer] asking to call the ambulance, patient regrets his action. Patient declined any headache, blurry vision, chest pain, or abdominal pain. Patient has been drinking alcohol lately almost every day and as a result patient relapsed on using crack cocaine by smoking. Related Data Previous Rx's Medication Instructions Recorded buprenorphine 8 mg-naloxone 2 mg 2 film SUBLINGUAL DAILY 30 Days 11/24/20 sublingual film (Suboxone) #60 ea bupropion HCl 300 mg 24 hr tablet, 300 mg PO QAM 30 Days #30 tab 11/24/20 extended release (Wellbutrin XL) buspirone 5 mg tablet 15 mg PO BID 30 Days #180 tab 11/24/20 gabapentin 800 mg tablet 800 mg PO TID 30 Days #90 tab 11/24/20 hydroxyzine pamoate 50 mg capsule 50 mg PO TID PRN 30 Days #60 cap 11/24/20 mirtazapine 15 mg tablet 45 mg PO BEDTIME 30 Days #90 tab 11/24/20 nicotine (polacrilex) 2 mg gum 4 mg BUCCAL Q2H PRN 30 Days #100 ea 11/24/20 prazosin 1 mg capsule 1 mg PO BEDTIME 30 Days #30 cap 11/24/20 trazodone 150 mg tablet 150 mg PO BEDTIME 30 Days #30 tab 11/24/20 Allergies Allergy/AdvReac Type Severity Reaction Status Date / Time No Known Allergies Allergy Verified 12/28/20 21:57 [No Known Allergies*] Review of Systems Review of Systems: All other systems are reviewed and are negative Constitutional: Reports as per HPI and Reports no additional constitutional co mplaints Eyes: Reports as per HPI and Reports no additional eye complaints Reports system reviewed and no additional complaints, except as documented Cardiovascular: Reports as per HPI and Reports no additional cardiovascular complaints Respiratory: Reports as per HPI and Reports no additional respiratory complaints Gastrointestinal: Reports as per HPI and Reports no additional gastrointestinal complaints Genitourinary: Reports no additional female genitourinary complaints Musculoskeletal: Reports no additional musculoskeletal complaints Skin/Breast: Reports system reviewed and no additional complaints, except as docu Psychiatric: Reports no additional psychiatric complaints Endocrine: Reports no additional endocrine complaints Hematologic/Lymphatic: Reports no additional hematologic/lymphatic complaints Allergic/Immunologic: Reports no additional allergic/immunologic complaints Reports system reviewed and no additional complaints, except as documented and Reports Abnormal speech present [facility] Past Medical History Medical History Chronic post-traumatic stress disorder (PTSD) Cocaine abuse Depression MDD (major depressive disorder), recurrent episode, severe Surgical History History of mandibular surgery Family History Family History Mother Diabetes mellitus Father Leukemia Social History Social History Household Members: None Household Members Other:: People he met in the community Housing: Homeless Do you presently have visiting nurse or other home services: No Alcohol intake: current Alcohol intake frequency: 3 or more drinks per day Alcohol type: beer Patient Tobacco Use Status: Current everyday Tobacco user Tobacco use type: Cigarette Cigarette Packs Per Day: 1 Cigarettes Per Day: 20 Years Smoked: 25 e-Cigarette/Vaping Use: Never Used Second Hand Smoke Exposure: Yes Use of substances other than those prescribed or required for medical reasons: Yes Substance Use Type: Crack/Cocaine Substance Use Frequency: Recent Binge Advance Directives: No Advance Directives Information Provided: Yes service: No Current occupational status: unemployed Sexual orientation: Did not discuss Physical Exam Vital Signs: Vital Signs: Last Vital Signs Temp 98.3 F 12/28/20 21:57 Pulse 99 12/28/20 21:57 Resp 13 12/28/20 21:57 BP 136/66 12/28/20 21:57 Pulse Ox 95 12/28/20 21:57 Body Mass Index 30.3 Vital signs have been reviewed as appeared to be correct. Blood pressure normal. Heart rate normal. Respiration rate normal. Temperature normal. Oxygen saturation normal. Appearance: Alert. Oriented X3. No acute distress. Head: Normal external exam. Normocephalic. Atraumatic. No Martinez signs noted. No raccoon eyes noted Eyes: PERRLA. EOMI. Conjunctiva and sclera normal. Eyelids normal. ENT: TM's Normal. Pharynx normal. Uvula midline. Moist mucous membranes. No trismus noted. No drooling noted. No muffled voice noted. Neck: Normal inspection. Neck supple. FROM. No adenopathy. Thyroid Normal. No meningeal signs. No neck mass noted. CVS: Normal heart rate and rhythm. Heart sound normal. No murmurs noted. Pulses normal throughout. Respiratory: No respiratory distress. Painless inspiration. Breath sounds normal. No wheezes/rales/rhonchi noted. Chest nontender. No accessory muscle usage noted or decreased air movement noted. Abdomen: Soft and nontender. Bowel sounds normal in all 4 quadrants. No distention noted. No organomegaly noted. No visible injury noted. Back: No CVA tenderness. Full range of motion noted. Skin: Skin warm and dry. Normal skin color. Normal skin turgor. No rashes/lesions/lacerations noted. Extremities: No lower extremity edema. Extremities exhibit normal range of motion. Extremities nontender. Neuro: Oriented X 3. Cranial nerve exam: II-XII are grossly intact No motor deficit. No sensory deficit. Reflexes normal. Patient Appearance: Appropriate Patient Orientation: Person, Place, Time and Situation Level of Consciousness: Awake, Appropriate and Alert Patient Behavior: Talkative, Cooperative. Mood Description: Depressed. Affect Description: Flat. Patient Cognition Impaired: No Ability to Follow Directions: Good Speech Pattern: Spontaneous Speech Memory Description: Intact Hallucinations: Not present. Delusions: Not Present Thought Process: Logical. Thought Content: Unremarkable Depressive Symptoms: Increased anxiety. Judgement: poor. Course Course Course Narrative: 50-year-old male who overdosed on Wellbutrin. Patient has been monitored in the emergency department, stable vital signs, labs revealing increased BUN and creatinine but patient states that he is not drinking in adequate fluids and feels dehydrated, patient is able to drink water in the emergency department will repeat the labs to check his BUN and creatinine, slight elevation of LFTs labs will be repeated. Poison control consultation and input is appreciated. BHN after repeat labs. MDM - Overdose Lab Data Attestation: I reviewed the patient's lab results. Result diagrams: 12/28/20 23:42 12/28/20 23:42 Labs: Lab Results 12/28/20 12/28/20 12/28/20 Range/Units 22:42 23:42 23:42 WBC 14.7 H (4.8-10.8) X10*3/uL RBC 4.42 L (4.60-5.80) X10*6/uL Hgb 13.5 L (14.0-18.0) g/dl Hct 38.6 L (42-52) % MCV 87.3 (80-98) fL MCH 30.5 (27.0-33.0) pg MCHC 35.0 (31.0-36.0) g/dl RDW 13.2 (11.0-16.0) % Plt Count 232 (160-400) X10*3/uL MPV 10.2 (9.4-12.4) fL Immature Gran % (Auto) 0.3 (0.0-0.4) % Neut % (Auto) 82.9 H (45-73) % Lymph % (Auto) 9.1 L (20-40) % [place] % (Auto) 7.5 (2-11) % Eos % (Auto) 0.0 (0-4) % Baso % (Auto) 0.2 (0-2) % Lymph # (Auto) 1.3 (1.2-4.9) X10*3/uL [place] # (Auto) 1.1 (0.1-1.2) X10*3/uL Eos # (Auto) 0.0 (0.0-0.4) X10*3/uL Baso # (Auto) 0.0 (0.0-0.2) X10*3/uL Abs Immat Gran (auto) 0.05 H (0.00-0.03) X10*3/uL Absolute Neuts (auto) 12.2 H (2.0-8.3) X10*3/uL Absolute Nucleated RBC 0.000 (0.0-0.012) X10*3/uL Nucleated RBC % (auto) 0.0 (0.0-0.2) /100WBC Sodium 139 (135-145) mmol/L Potassium 5.4 H D (3.3-5.1) mmol/L Chloride 101 (96-108) mmol/L Carbon Dioxide 23 (22-29) mmol/L Anion Gap 20 (12-20) BUN 23 H (9-16) mg/dL Creatinine 1.76 H (0.5-1.4) mg/dL Estim Creat Clear Calc 63.6 Estimated GFR 41 Random Glucose 109 (60-115) mg/dL Calcium 10.1 D (8.4-10.2) mg/dL Magnesium 2.1 (1.6-2.6) mg/dL Total Bilirubin 0.6 (0.0-1.0) mg/dL Direct Bilirubin 0.3 (0.0-0.5) mg/dL AST 80 H (5-37) U/L ALT 36 (0-40) U/L Alkaline Phosphatase 73 (39-117) U/L Total Protein 7.6 (6.5-8.0) g/dL Albumin 4.9 (3.5-5.0) g/dL Lipase < 4 L (8-78) U/L Salicylates < 5.0 L (15-30) mg/dL Acetaminophen < 1 (<30) mcg/mL Ethyl Alcohol mg/dL Coronavirus (PCR) NEGATIVE (Negative) Influenza Type A (PCR) NEGATIVE (Negative) Influenza Type B (PCR) NEGATIVE (Negative) RSV RNA Qual (PCR) NEGATIVE (Negative) 12/28/20 Range/Units 23:42 WBC (4.8-10.8) X10*3/uL RBC (4.60-5.80) X10*6/uL Hgb (14.0-18.0) g/dl Hct (42-52) % MCV (80-98) fL MCH (27.0-33.0) pg MCHC (31.0-36.0) g/dl RDW (11.0-16.0) % Plt Count (160-400) X10*3/uL MPV (9.4-12.4) fL Immature Gran % (Auto) (0.0-0.4) % Neut % (Auto) (45-73) % Lymph % (Auto) (20-40) % [place] % (Auto) (2-11) % Eos % (Auto) (0-4) % Baso % (Auto) (0-2) % Lymph # (Auto) (1.2-4.9) X10*3/uL [place] # (Auto) (0.1-1.2) X10*3/uL Eos # (Auto) (0.0-0.4) X10*3/uL Baso # (Auto) (0.0-0.2) X10*3/uL Abs Immat Gran (auto) (0.00-0.03) X10*3/uL Absolute Neuts (auto) (2.0-8.3) X10*3/uL Absolute Nucleated RBC (0.0-0.012) X10*3/uL Nucleated RBC % (auto) (0.0-0.2) /100WBC Sodium (135-145) mmol/L Potassium (3.3-5.1) mmol/L Chloride (96-108) mmol/L Carbon Dioxide (22-29) mmol/L Anion Gap (12-20) BUN (9-16) mg/dL Creatinine (0.5-1.4) mg/dL Estim Creat Clear Calc Estimated GFR Random Glucose (60-115) mg/dL Calcium (8.4-10.2) mg/dL Magnesium (1.6-2.6) mg/dL Total Bilirubin (0.0-1.0) mg/dL Direct Bilirubin (0.0-0.5) mg/dL AST (5-37) U/L ALT (0-40) U/L Alkaline Phosphatase (39-117) U/L Total Protein (6.5-8.0) g/dL Albumin (3.5-5.0) g/dL Lipase (8-78) U/L Salicylates (15-30) mg/dL Acetaminophen (<30) mcg/mL Ethyl Alcohol < 10 mg/dL Coronavirus (PCR) (Negative) Influenza Type A (PCR) (Negative) Influenza Type B (PCR) (Negative) RSV RNA Qual (PCR) (Negative) ECG Data Interpretation: Normal sinus rhythm at 96 beats per minutes, left axis deviation, normal intervals, no ST-T changes. Discharge Plan Discharge Clinical Impression: Suicide attempt, Drug overdose Prescriptions: No Action nicotine (polacrilex) 2 mg Gum 4 mg buccal Q2H PRN (Reason: Nicotine Cravings) 30 Days Qty: 100 RF: 1 buspirone 5 mg Tablet 15 mg PO BID 30 Days Qty: 180 RF: 1 mirtazapine 15 mg Tablet 45 mg PO BEDTIME 30 Days Qty: 90 RF: 1 gabapentin 800 mg tablet 800 mg PO TID 30 Days Qty: 90 RF: 1 trazodone 150 mg tablet 150 mg PO BEDTIME 30 Days Qty: 30 RF: 1 bupropion HCl [Wellbutrin XL] 300 mg tablet extended release 24 hr 300 mg PO QAM 30 Days Qty: 30 RF: 1 buprenorphine-naloxone [Suboxone] 8-2 mg film 2 film sublingual DAILY 30 Days Qty: 60 RF: 0 hydroxyzine pamoate 50 mg capsule 50 mg PO TID PRN (Reason: anxiety) 30 Days Qty: 60 RF: 1 prazosin 1 mg Capsule 1 mg PO BEDTIME 30 Days Qty: 30 RF: 1
--- NOTE | 2020-12-28 22:39 | PC.NURSE ---
PT IN HOSPITAL ATTIRE, ON A 1:1, PROPERTY MOVED TO [facility]. PT APPEARS NERVOUS, DIAPHORETIC.
[2020-12-28 23:26] LABS: Influenza A PCR NEGATIVE (Negative); Influenza B PCR NEGATIVE (Negative); Resp Syncy Virus RNA Qual PCR NEGATIVE (Negative); SARS COV2 PCR INHOUSE NEGATIVE (Negative)
[2020-12-28 23:47] LABS: MANUAL DIFF FLAG NO
[2020-12-28 23:48] LABS: Basophils Percent Auto 0.2 % (0-2); Hematocrit 38.6 % (42-52); Hemoglobin 13.5 g/dl (14.0-18.0); Imm Gran Abs Auto 0.05 X10*3/uL (0.00-0.03); Imm Gran Pct Auto 0.3 % (0.0-0.4); Lymphocytes Absolute Auto 1.3 X10*3/uL (1.2-4.9); Lymphocytes Percent Auto 9.1 % (20-40); Mean Corpuscular Hemoglobin 30.5 pg (27.0-33.0); Mean Corpuscular Volume 87.3 fL (80-98); Mean Platelet Volume 10.2 fL (9.4-12.4); Monocytes Absolute Auto 1.1 X10*3/uL (0.1-1.2); Monocytes Percent Auto 7.5 % (2-11); Neutrophils Absolute Auto 12.2 X10*3/uL (2.0-8.3); Neutrophils Percent Auto 82.9 % (45-73); Platelet Count 232 X10*3/uL (160-400); Red Blood Count 4.42 X10*6/uL (4.60-5.80); Red Cell Distribution Width 13.2 % (11.0-16.0); White Blood Count 14.7 X10*3/uL (4.8-10.8)
[2020-12-28] MEDS: LORazepam 1 MG TABLET PO (23:51)
--- NOTE | 2020-12-29 00:11 | PC.NURSE ---
PER CARLA @ POISON CONTROL: CARDIAC MONITORING, BENZOS FOR SEIZURES/AGITATION, Q4H EKGs, CHARCOAL ADMINISTRATION, VITAL SIGNS (ESPECIALLY TEMPERATURE IF INCREASED AGITATION NOTED). MONITOR FOR 24 HOURS IN ED WITH PLAN TO FOLLOW UP WITH BHN/CRISIS REGARDING SUICIDE ATTEMPT.
[2020-12-29 00:19] LABS: Ethanol < 10 mg/dL
[2020-12-29 00:24] LABS: Acetaminophen LAB < 1 mcg/mL (<30); Alanine Aminotransferase 36 U/L (0-40); Albumin Level 4.9 g/dL (3.5-5.0); Alkaline Phosphatase 73 U/L (39-117); Anion Gap 20 (12-20); Aspartate Amino Transferase 80 U/L (5-37); Bilirubin Direct 0.3 mg/dL (0.0-0.5); Bilirubin Total 0.6 mg/dL (0.0-1.0); Blood Urea Nitrogen 23 mg/dL (9-16); Calcium 10.1 mg/dL (8.4-10.2); Carbon Dioxide 23 mmol/L (22-29); Chloride 101 mmol/L (96-108); Creatinine Clr Calc Pharmacy 63.6; Estimated Glomerular Filt Rate 41; Glucose Random 109 mg/dL (60-115); Lipase < 4 U/L (8-78); Magnesium 2.1 mg/dL (1.6-2.6); Potassium 5.4 mmol/L (3.3-5.1); Sodium 139 mmol/L (135-145); Total Protein 7.6 g/dL (6.5-8.0)
[2020-12-29 00:35] LABS: Salicylate < 5.0 mg/dL (15-30)
--- NOTE | 2020-12-29 01:39 | PC.NURSE ---
0138: CARLA AT POISON CONTROL- REPEAT LABS IN 4HRS TO SEE IF IT GETS WORSE.
[2020-12-29] MEDS: Activated charcoaL 50 GM/240 ML ORAL.SUSP PO (03:11)
[2020-12-29 06:25] LABS: Alanine Aminotransferase 45 U/L (0-40); Albumin Level 4.3 g/dL (3.5-5.0); Alkaline Phosphatase 64 U/L (39-117); Anion Gap 18 (12-20); Aspartate Amino Transferase 129 U/L (5-37); Bilirubin Direct 0.2 mg/dL (0.0-0.5); Bilirubin Total 0.6 mg/dL (0.0-1.0); Blood Urea Nitrogen 21 mg/dL (9-16); Calcium 9.1 mg/dL (8.4-10.2); Carbon Dioxide 21 mmol/L (22-29); Chloride 104 mmol/L (96-108); Creatinine Clr Calc Pharmacy 79.4; Estimated Glomerular Filt Rate 53; Glucose Random 121 mg/dL (60-115); Potassium 4.2 mmol/L (3.3-5.1); Sodium 139 mmol/L (135-145); Total Protein 6.8 g/dL (6.5-8.0)
[2020-12-29 06:34] VITALS: BP 103/55; PULSE 79; RESP 12; TEMP 36.4; O2SAT 95
[2020-12-29] MEDS: LORazepam 1 MG TABLET 2 MG PO (10:19)
--- NOTE | 2020-12-29 10:26 | PC.NURSE ---
Pt alert and oriented x3. Pt reports nausea, no vomiting noted. no sob/respiratory distress. Pt ate breakfast and tolerated well. He requested medication for anxiety. PO Med given as documented. Pt is a difficult stick, unable to establish IV therefore the fluids order have not be given. Nurse currently at bedside attempting to establish iv. will continue to monitor. pt in no apparent distress.
--- NOTE | 2020-12-29 10:29 | ECG_ITS ---
Test Reason : OVERDOSE Blood Pressure : / mmHG Vent. Rate : 080 BPM Atrial Rate : 080 BPM P-R Int : 146 ms QRS Dur : 092 ms QT Int : 432 ms P-R-T Axes : 037 011 020 degrees QTc Int : 498 ms Normal sinus rhythm Prolonged QT Abnormal ECG When compared with ECG of 28-DEC-2020 22:32, QT has lengthened Referred By: Thanh Zacarias Electronically Signed By:Dario Pratt
[2020-12-29] MEDS: 0.9 % Sodium Chloride 1,000 ML 999 ML IV ×2 (10:41→11:12)
--- NOTE | 2020-12-29 11:03 | MHC.CARE ---
Addendum entered by Rachell Rader LCSW 12/29/20 13:22: only consult CARE Team Original Note: Pt placed on Section 12A due to intentional overdose. Upon medical clearance please refer Pt to [facility] CRISIS and CARE Team
--- NOTE | 2020-12-29 13:14 | MHC.CARE ---
Pt presents to the ED after intentional overdose attempt. Pt should be referred to CARE Team once medically cleared and ready for d/o or inpt psych admission.
[2020-12-29 14:05] VITALS: BP 142/59; PULSE 90; RESP 20; TEMP 36.5; O2SAT 96
[2020-12-29 15:17] LABS: Glucose Urine UA NEG (NEG); Leukocyte Esterase Urine NEG (NEG); Nitrite Urine NEG (NEG); Specific Gravity - Urine 1.025 (1.005-1.025); UACC Culture Trigger NO; Urine Blood 1+ (NEG); Urine Ketones NEG (NEG); Urine Protein 1+ MG/DL (NEG-TRACE)
[2020-12-29 15:19] LABS: Appearance Urine CLEAR; Color Urine YELLOW
--- NOTE | 2020-12-29 15:19 | P.HPHOSP_ITS ---
History of Present Illness Date of Service: 12/29/20 Chief Complaint: Intentional Welbutrin overdose 50 year old male with depression recently admitted to inpatient Psych for depression about a month ago presents with intentional overdose by takeing 20 pills of 300 mg of Welbutrin because he has been feeling hopeless, and has lost everything the last couple of weeks including his house. He felt guilty right after and called an ambulance immediately after and was brought to the ED and treated with activated charcoal.? Patient also has a history of alcohol use disorder and drinks about 15 to 30 beers per day and last drank yesterday. He history of alcohol withdrawal, inclduing seizure in the past. ? Patient's initial laboratory evaluation revealed an elevated WBC of 14.7 elevated BUN and creatinine of 23 and 1.76, elevated AST of 80. The patient's salicylates, acetaminophen and ethanol were below detectable limits, even when repeated hours later.? Poison control advised 24 hours monitoring for possible delayed seizure and increased in QTC. Initial ECG showed QTc of 442 and repeat 490. Review of Systems Review of Systems: Gen: no fever Resp: no sob, no cough CV: no chest, no DUMONT, no leg edema GI: No n/v, no abd pain Neuro: No confusion Psych: depressed and suicidal Yes all other systems are reviewed and are negative FOR[facility]LY [facility] Medical History Chronic post-traumatic stress disorder (PTSD) Cocaine abuse Depression MDD (major depressive disorder), recurrent episode, severe Family History Mother Diabetes mellitus Father Leukemia Surgical History History of mandibular surgery Social History Household Members: None Household Members Other:: People he met in the community Housing: Homeless Do you presently have visiting nurse or other home services: No Alcohol intake: current Alcohol intake frequency: 3 or more drinks per day [place] type: beer Patient Tobacco Use Status: Current everyday Tobacco user Tobacco use type: Cigarette Cigarette Packs Per Day: 1 Cigarettes Per Day: 20 Years Smoked: 25 e-Cigarette/Vaping Use: Never Used Second Hand Smoke Exposure: Yes Use of substances other than those prescribed or required for medical reasons: Yes Substance Use Type: Crack/Cocaine Substance Use Frequency: Recent Binge Advance Directives: No Advance Directives Information Provided: Yes service: No Current occupational status: unemployed Sexual orientation: Did not discuss Meds Allergies Allergy/AdvReac Type Severity Reaction Status Date / Time No Known Allergies Allergy Verified 12/28/20 21:57 [No Known Allergies*] Active Medications: Current Medications Generic Name Dose Route Start Last Admin Trade Name Freq PRN Reason Stop Dose Admin Sodium Chloride 1,000 mls @ 100 mls/hr 12/29/20 15:15 IVCONT 12/30/20 01:14 .Q10H [facility] Pharmacy Consult 1 each 12/29/20 15:08 Consult Rx Perform Med Rec MISCELLANE ONCE PRN Consult order Sodium Chloride 3 ml 12/29/20 16:00 0.9 % Sodium Chloride Flush 3 Ml Syringe IVFLUSH QSHIFT [facility] Physical Exam Vital Signs and Narrative: Vital Signs: Last Vital Signs Temp 97.7 F 12/29/20 14:05 Pulse 90 12/29/20 14:05 Resp 20 12/29/20 14:05 BP 142/59 H 12/29/20 14:05 Pulse Ox 96 12/29/20 14:05 Body Mass Index 30.3 Const: Other: Constitutional Awake and Alert, No apparent distress Neck Supple, No lymphadenopathy Cardiovascular RRR, No M/R/G, S1 S2, No S3 S4, No pedal edema Respiratory Lungs clear, No respiratory distress Gastrointestinal Non tender, Non-distended Skin No rash Neurological Alert & oriented x3 Psychological Appropriate affect Results Labs CBC and Chem 7: 12/28/20 23:42 12/29/20 05:45 Labs: Laboratory Results - last 24 hr 12/28/20 12/28/20 12/28/20 22:42 23:42 23:42 MCV 87.3 MCH 30.5 MCHC 35.0 RDW 13.2 Plt Count 232 MPV 10.2 Immature Gran % (Auto) 0.3 Neut % (Auto) 82.9 H Lymph % (Auto) 9.1 L [place] % (Auto) 7.5 Eos % (Auto) 0.0 Baso % (Auto) 0.2 Lymph # (Auto) 1.3 [place] # (Auto) 1.1 Eos # (Auto) 0.0 Baso # (Auto) 0.0 Abs Immat Gran (auto) 0.05 H Absolute Neuts (auto) 12.2 H Absolute Nucleated RBC 0.000 Nucleated RBC % (auto) 0.0 Anion Gap 20 Estim Creat Clear Calc 63.6 Estimated GFR 41 Random Glucose 109 Calcium 10.1 D Magnesium 2.1 Total Bilirubin 0.6 Direct Bilirubin 0.3 AST 80 H ALT 36 Alkaline Phosphatase 73 Total Protein 7.6 Albumin 4.9 Lipase < 4 L Urine Color Urine Appearance Urine pH Ur Specific [place] Urine Protein Urine Glucose (UA) Urine Ketones Urine Blood Urine Nitrite Ur Leukocyte Esterase Salicylates < 5.0 L Acetaminophen < 1 Ethyl Alcohol Coronavirus (PCR) NEGATIVE Influenza Type A (PCR) NEGATIVE Influenza Type B (PCR) NEGATIVE RSV RNA Qual (PCR) NEGATIVE 12/28/20 12/29/20 12/29/20 23:42 05:45 15:05 MCV MCH MCHC RDW Plt Count MPV Immature Gran % (Auto) Neut % (Auto) Lymph % (Auto) [place] % (Auto) Eos % (Auto) Baso % (Auto) Lymph # (Auto) [place] # (Auto) Eos # (Auto) Baso # (Auto) Abs Immat Gran (auto) Absolute Neuts (auto) Absolute Nucleated RBC Nucleated RBC % (auto) Anion Gap 18 Estim Creat Clear Calc 79.4 Estimated GFR 53 Random Glucose 121 H Calcium 9.1 D Magnesium Total Bilirubin 0.6 Direct Bilirubin 0.2 AST 129 H ALT 45 H Alkaline Phosphatase 64 Total Protein 6.8 Albumin 4.3 Lipase Urine Color YELLOW Urine Appearance CLEAR Urine pH 6.0 Ur Specific [place] 1.025 Urine Protein 1+ H Urine Glucose (UA) NEG Urine Ketones NEG Urine Blood 1+ H Urine Nitrite NEG Ur Leukocyte Esterase NEG Salicylates Acetaminophen Ethyl Alcohol < 10 Coronavirus (PCR) Influenza Type A (PCR) Influenza Type B (PCR) RSV RNA Qual (PCR) Assessment and Plan (1) Drug overdose: Qualifiers: Encounter type: initial encounter Injury intent: intentional self-harm Qualified Code(s): T50.902A - Poisoning by unspecified drugs, medicaments and biological substances, intentional self-harm, initial encounter Status: Acute (2) IVONNE (acute kidney injury): Status: Acute 50 year mal with with depression here with 1/Welbutrin OD, intentional -hold med -hydrate -Monitor for seizure -Monitor Qtc -Sitter -Armando consult tomorrow 2/ Alcohol Dependence--Not candidate for Phenobarbital -CIWA -Ativan -Folic acid, thiamine 3/ IVONNE--likely pre renal--Hydrate and repeat 4/Transaminitis--Monitor 5/Depression--Hold all meds Quality Stroke Does the patient have a stroke diagnosis?: No VTE Prior VTE?: No VTE Risk Level:: Medical - low VTE Device Contraindication: Treatment Not Indicated VTE Drug Contraindication: Treatment Not Indicated
[2020-12-29 15:31] LABS: Amorphous Sediment Urine TRACE /LPF; Bacteria Urine TRACE /LPF; Calcium Oxalate Crystals Urine TRACE /LPF; RBC Urine 0-2 /HPF (0); WBC Urine 0 /HPF (0-4)
[2020-12-29 15:32] LABS: Mucus Urine TRACE /LPF
[2020-12-29 15:48] LABS: Amphetamine Screen Urine Not Detected (Not Detect); Barbiturates, Urine Not Detected (Not Detect); Benzodiazepines Screen Urine Not Detected (Not Detect); Cannabinoid Screen Urine Not Detected (Not Detect); Cocaine Screen Urine POSITIVE (Not Detect); Opiate Screen Urine Not Detected (Not Detect); Phencyclidine Screen Urine Not Detected (Not Detect)
[2020-12-29 15:49] LABS: Alanine Aminotransferase 48 U/L (0-40); Alkaline Phosphatase 67 U/L (39-117); Anion Gap 11 (12-20); Aspartate Amino Transferase 111 U/L (5-37); Bilirubin Total 0.3 mg/dL (0.0-1.0); Blood Urea Nitrogen 15 mg/dL (9-16); Calcium 8.3 mg/dL (8.4-10.2); Carbon Dioxide 26 mmol/L (22-29); Chloride 107 mmol/L (96-108); Creatinine Clr Calc Pharmacy 92.6; Estimated Glomerular Filt Rate > 60; Glucose Random 114 mg/dL (60-115); Potassium 3.7 mmol/L (3.3-5.1); Sodium 140 mmol/L (135-145); Total Protein 6.1 g/dL (6.5-8.0)
[2020-12-29] MEDS: Folic Acid 1 MG TABLET PO (16:12)
[2020-12-29] MEDS: LORazepam 2 MG/ML VIAL IVPUSH ×2 (16:12→20:12)
[2020-12-29] MEDS: 0.9 % Sodium Chloride Flush 3 ML SYRINGE IVFLUSH ×2 (16:14→19:47)
[2020-12-29 16:19] VITALS: BP 139/69; PULSE 84; RESP 16; TEMP 36.5; O2SAT 96
[2020-12-29] MEDS: Sodium Chloride 0.45 % 1,000 ML 100 ML IVCONT (16:26)
[2020-12-29 18:20] VITALS: BP 139/60; PULSE 82; RESP 18; TEMP 36.8; O2SAT 96
[2020-12-29 18:28] VITALS: BMI 31.4
[2020-12-29 19:06] VITALS: BP 128/65; PULSE 83; RESP 18; TEMP 36.9; O2SAT 96
--- NOTE | 2020-12-29 20:13 | HE.PHANOTE ---
MED REC COMPLETED BY PHARMACY. NO ISSUES TO ADDRESS
[2020-12-30] VITALS (8 sets, daily range): BP systolic 109–141; BP diastolic 51–78; PULSE 62–72; RESP 15–18; TEMP 36.4–37.1; O2SAT 93–97
--- NOTE | 2020-12-30 | ECG_ITS ---
Test Reason : Check qtc for drug overdose Blood Pressure : / mmHG Vent. Rate : 071 BPM Atrial Rate : 071 BPM P-R Int : 140 ms QRS Dur : 086 ms QT Int : 436 ms P-R-T Axes : 059 017 017 degrees QTc Int : 473 ms Normal sinus rhythm Normal ECG No previous ECGs available Referred By: Les Birmingham Electronically Signed By:Dario Pratt
[2020-12-30] MEDS: LORazepam 2 MG/ML VIAL IVPUSH ×6 (00:37→21:20)
[2020-12-30 07:28] LABS: Alanine Aminotransferase 40 U/L (0-40); Albumin Level 3.4 g/dL (3.5-5.0); Alkaline Phosphatase 51 U/L (39-117); Anion Gap 13 (12-20); Aspartate Amino Transferase 74 U/L (5-37); Bilirubin Direct 0.2 mg/dL (0.0-0.5); Bilirubin Total 0.3 mg/dL (0.0-1.0); Blood Urea Nitrogen 14 mg/dL (9-16); Calcium 8.2 mg/dL (8.4-10.2); Carbon Dioxide 23 mmol/L (22-29); Chloride 108 mmol/L (96-108); Creatinine Clr Calc Pharmacy 134.1; Estimated Glomerular Filt Rate > 60; Glucose Random 103 mg/dL (60-115); Potassium 4.4 mmol/L (3.3-5.1); Sodium 140 mmol/L (135-145); Total Protein 5.3 g/dL (6.5-8.0)
[2020-12-30] MEDS: 0.9 % Sodium Chloride Flush 3 ML SYRINGE IVFLUSH ×3 (08:39→21:21)
[2020-12-30] MEDS: Thiamine HCL 100 MG TABLET PO (08:39)
[2020-12-30] MEDS: Folic Acid 1 MG TABLET PO (08:39)
--- NOTE | 2020-12-30 12:40 | HO.PM.IMPN ---
Subjective Subjective Date of Service: 12/30/20 Interval History: Seen f/u for welbutrin OD, doing well. No issues Review of Systems Gen: no fever Resp: no sob, no cough CV: no chest, no DUMONT, no leg edema GI: No n/v, no abd pain Neuro: No confusion Psych: still with depression and SI Physical Exam Vital Signs: Vital Signs: Last Vital Signs Temp 98.5 F 12/30/20 07:57 Pulse 62 12/30/20 07:57 Resp 18 12/30/20 07:57 BP 112/61 12/30/20 07:57 Pulse Ox 95 12/30/20 07:57 Body Mass Index 31.4 Const: Other: General: AO X 3, no acute distress Resp: CTA bilateral CVS: S1,S2,RRR GI: +BS, NT, no distention Skin: No rash Neuro: motor grossly intact Psych: depressesd, +SI Objective Data Current Medications Generic Name Dose Route Start Last Admin Trade Name Freq PRN Reason Stop Dose Admin Folic Acid 1 mg 12/29/20 15:45 12/30/20 08:39 Folic Acid 1 Mg Tablet PO 12/31/20 09:01 1 mg DAILY FOUZIA Administration Lorazepam 2 mg 12/29/20 15:43 12/30/20 08:39 Lorazepam 2 Mg/Ml Vial IVPUSH 2 mg Q4H PRN Administration Alcohol Withdrawal Pharmacy Consult 1 each 12/29/20 15:08 Consult Rx Perform Med Rec MISCELLANE ONCE PRN Consult order Sodium Chloride 3 ml 12/29/20 16:00 12/30/20 08:39 0.9 % Sodium Chloride Flush 3 Ml Syringe IVFLUSH 3 ml QSHIFT FOUZIA Administration Thiamine HCl 100 mg 12/30/20 09:00 12/30/20 08:39 Thiamine Hcl 100 Mg Tablet PO 01/01/21 09:01 100 mg DAILY FOUZIA Administration Labs CBC & Chem 7: 12/28/20 23:42 12/30/20 06:02 Labs: Laboratory Results - last 24 hr 12/29/20 12/29/20 12/29/20 15:05 15:05 15:05 Anion Gap 11 L Estim Creat Clear Calc 92.6 Estimated GFR > 60 Random Glucose 114 Calcium 8.3 L D Total Bilirubin 0.3 Direct Bilirubin AST 111 H ALT 48 H Alkaline Phosphatase 67 Total Protein 6.1 L Albumin 4.0 Urine Color YELLOW Urine Appearance CLEAR Urine pH 6.0 Ur Specific [place] 1.025 Urine Protein 1+ H Urine Glucose (UA) NEG Urine Ketones NEG Urine Blood 1+ H Urine Nitrite NEG Ur Leukocyte Esterase NEG Urine RBC 0-2 Urine WBC 0 Ur Squamous Epith Cells NONE Calcium Oxalate Crystal TRACE Amorphous Sediment TRACE Urine Bacteria TRACE Hyaline Casts 10-14 Urine Mucus TRACE Urine Opiates Screen Not Detected Ur Barbiturates Screen Not Detected Ur Phencyclidine Scrn Not Detected Ur Amphetamines Screen Not Detected U Benzodiazepines Scrn Not Detected Urine Cocaine Screen POSITIVE H U Marijuana (THC) Screen Not Detected 12/30/20 06:02 Anion Gap 13 Estim Creat Clear Calc 134.1 Estimated GFR > 60 Random Glucose 103 Calcium 8.2 L Total Bilirubin 0.3 Direct Bilirubin 0.2 AST 74 H ALT 40 Alkaline Phosphatase 51 D Total Protein 5.3 L Albumin 3.4 L Urine Color Urine Appearance Urine pH Ur Specific [place] Urine Protein Urine Glucose (UA) Urine Ketones Urine Blood Urine Nitrite Ur Leukocyte Esterase Urine RBC Urine WBC Ur Squamous Epith Cells Calcium Oxalate Crystal Amorphous Sediment Urine Bacteria Hyaline Casts Urine Mucus Urine Opiates Screen Ur Barbiturates Screen Ur Phencyclidine Scrn Ur Amphetamines Screen U Benzodiazepines Scrn Urine Cocaine Screen U Marijuana (THC) Screen Assessment and Plan (1) Suicide attempt: Status: Acute (2) MDD (major depressive disorder), recurrent episode, severe: Status: Chronic Assessment and Plan: 50 year mal with with depression here with 1/Welbutrin OD, intentional -QTc ok, no seuzire -continue sitter -Inpatient Psych admission when bed available 2/ Alcohol Dependence--Not candidate for Phenobarbital -CIWA -Ativan -Folic acid, thiamine -He says he does't tolerate Phenobarbital, 3/ IVONNE--likely pre-renal, hydrated and resolved. 4/Transaminitis--Monitor 5/Depression--restart med, consult Psych for med management. Quality Stroke Does the patient have a stroke diagnosis?: No VTE Prior VTE?: No VTE Risk Level:: Medical - low VTE Device Contraindication: Treatment Not Indicated VTE Drug Contraindication: Treatment Not Indicated
[2020-12-30] MEDS: Buprenorphine/Naloxone 8/2 mg FILM 2 FILM SUBLINGUAL (15:58)
[2020-12-30] MEDS: Nicotine 21 MG PATCH.TD24 TRANSDERMA (15:59)
--- NOTE | 2020-12-30 16:01 | MHC.CM.PN ---
CM MET WITH PT WHO REPORTS HE WAS STAYING WITH FRIENDS BUT OF A COUPLE DAYS AGO HE IS HOMELESS. PT REPORTS HE HAS NO YET USED A CARE HOME AND SINCE IT HAS BEEN SUCH A SHORT TIME HE IS NOT SURE WHAT HIS PLANS ARE. PT EXPRESSES SOME INTEREST IN RESIDENTIAL TREATMENT WHEN ASKED AND REPORTS THE SPECIALIST HAS BEEN IN TO SEE HIM AND THE CURRENT PLAN IS [facility] MEDICALLY CLEARED AND HE WILL WORK ON GETTING INTO A LONGER TERM PROGRAM FROM THERE. PT REPORTS HIS PCP IS ABIODUN BENAVIDES. HE DOES NOT HAVE A HCP. CURRENT DC PLAN IS [facility] VS CARE HOME TRANSPORT TBD BY DISPO
[2020-12-30] MEDS: Gabapentin 400 MG CAPSULE 800 MG PO (21:21)
[2020-12-30] MEDS: Prazosin HCL 1 MG CAPSULE PO (21:21)
[2020-12-30] MEDS: traZODone HCL 50 MG TABLET 150 MG PO (21:21)
[2020-12-31] VITALS (7 sets, daily range): BP systolic 99–145; BP diastolic 50–76; PULSE 62–78; RESP 17–20; TEMP 36.6–37.2; O2SAT 94–96
[2020-12-31] MEDS: LORazepam 2 MG/ML VIAL IVPUSH ×5 (01:20→20:49)
[2020-12-31] MEDS: Thiamine HCL 100 MG TABLET PO (08:27)
[2020-12-31] MEDS: Buprenorphine/Naloxone 8/2 mg FILM 2 FILM SUBLINGUAL (08:27)
[2020-12-31] MEDS: Folic Acid 1 MG TABLET PO (08:27)
[2020-12-31] MEDS: Nicotine 21 MG PATCH.TD24 TRANSDERMA (08:27)
[2020-12-31] MEDS: Gabapentin 400 MG CAPSULE 800 MG PO ×3 (08:27→20:42)
[2020-12-31] MEDS: 0.9 % Sodium Chloride Flush 3 ML SYRINGE IVFLUSH ×3 (08:28→20:43)
--- NOTE | 2020-12-31 12:02 | HO.PM.IMPN ---
Subjective Subjective Date of Service: 12/31/20 Interval History: Seen f/u for welbutrin OD, doing well. No new issues, still feel depressed, hopeless Review of Systems Gen: no fever Resp: no sob, no cough CV: no chest, no DUMONT, no leg edema GI: No n/v, no abd pain Neuro: No confusion Psych: depressed, no SI Physical Exam Vital Signs: Vital Signs: Last Vital Signs Temp 98.0 F 12/31/20 11:32 Pulse 75 12/31/20 11:32 Resp 20 12/31/20 11:32 BP 116/60 12/31/20 11:32 Pulse Ox 95 12/31/20 11:32 Body Mass Index 31.4 Const: Other: General: AO X 3, no acute distress Resp: CTA bilateral CVS: S1,S2,RRR GI: +BS, NT, no distention Skin: No rash Neuro: motor grossly intact Psych: depressed, no SI Objective Data Current Medications Generic Name Dose Route Start Last Admin Trade Name Freq PRN Reason Stop Dose Admin Buprenorphine/Naloxone 2 film 12/30/20 15:45 12/31/20 08:27 Buprenorphine/Naloxone 8/2 Mg Film SUBLINGUAL 2 film DAILY FOUZIA Administration Gabapentin 800 mg 12/30/20 21:00 12/31/20 08:27 Gabapentin 400 Mg Capsule PO 800 mg TID FOUZIA Administration Hydroxyzine HCl 50 mg 12/30/20 15:44 Hydroxyzine Hcl 50 Mg Tablet PO TID PRN anxiety Lorazepam 2 mg 12/29/20 15:43 12/31/20 07:01 Lorazepam 2 Mg/Ml Vial IVPUSH 2 mg Q4H PRN Administration Alcohol Withdrawal Nicotine 21 mg 12/30/20 15:45 12/31/20 08:27 Nicotine 21 Mg Patch.Td24 TRANSDERMA 21 mg DAILY FOUZIA Administration Nicotine Polacrilex 4 mg 12/30/20 15:44 Nicotine Polacrilex 2 Mg Gum BUCCAL Q2H PRN Nicotine Cravings Pharmacy Consult 1 each 12/29/20 15:08 Consult Rx Perform Med Rec MISCELLANE ONCE PRN Consult order Prazosin HCl 1 mg 12/30/20 21:00 12/30/20 21:21 Prazosin Hcl 1 Mg Capsule PO 1 mg BEDTIME FOUZIA Administration Protocol Sodium Chloride 3 ml 12/29/20 16:00 12/31/20 08:28 0.9 % Sodium Chloride Flush 3 Ml Syringe IVFLUSH 3 ml QSHIFT FOUZIA Administration Thiamine HCl 100 mg 12/30/20 09:00 12/31/20 08:27 Thiamine Hcl 100 Mg Tablet PO 01/01/21 09:01 100 mg DAILY FOUZIA Administration Trazodone HCl 150 mg 12/30/20 21:00 12/30/20 21:21 Trazodone Hcl 50 Mg Tablet PO 150 mg BEDTIME FOUZIA Administration Labs CBC & Chem 7: 12/28/20 23:42 12/30/20 06:02 Assessment and Plan (1) Suicide attempt: Status: Acute (2) Drug overdose: Status: Acute (3) Chronic post-traumatic stress disorder (PTSD): Status: Chronic Assessment and Plan: 50 year mal with with depression here with 1/Welbutrin OD, intentional -QTc ok, no seuzire -continue sitter -Inpatient Psych admission when bed available 2/ Alcohol Dependence--Not candidate for Phenobarbital -CIWA -Ativan -Folic acid, thiamine -He says he does't tolerate Phenobarbital, 3/ IVONNE--likely pre-renal, hydrated and resolved. 4/Transaminitis--Monitor 5/Depression--restart med, hold Welbutrin, Psych eval tomorrow ifnot going to inaptient No onger needs tele monitoring Quality Stroke Does the patient have a stroke diagnosis?: No VTE Prior VTE?: No VTE Risk Level:: Medical - low VTE Device Contraindication: Treatment Not Indicated VTE Drug Contraindication: Treatment Not Indicated
[2020-12-31 13:21] LABS: Hematocrit 36.6 % (42-52); Hemoglobin 12.4 g/dl (14.0-18.0); Mean Corpuscular HGB Conc 33.9 g/dl (31.0-36.0); Mean Corpuscular Hemoglobin 30.1 pg (27.0-33.0); Mean Corpuscular Volume 88.8 fL (80-98); Mean Platelet Volume 10.5 fL (9.4-12.4); Platelet Count 186 X10*3/uL (160-400); Red Blood Count 4.12 X10*6/uL (4.60-5.80); Red Cell Distribution Width 13.2 % (11.0-16.0)
[2020-12-31] MEDS: hydrOXYzine HCL 50 MG TABLET PO (15:24)
[2020-12-31] MEDS: Prazosin HCL 1 MG CAPSULE PO (20:42)
[2020-12-31] MEDS: traZODone HCL 50 MG TABLET 150 MG PO (20:42)
[2021-01-01 04:00] VITALS: BP 98/46; PULSE 66; RESP 18; TEMP 36.4; O2SAT 94
[2021-01-01 07:55] VITALS: BP 98/53; PULSE 60; RESP 18; TEMP 36.3; O2SAT 97
[2021-01-01] MEDS: Buprenorphine/Naloxone 8/2 mg FILM 2 FILM SUBLINGUAL (09:14)
[2021-01-01] MEDS: Gabapentin 400 MG CAPSULE 800 MG PO ×2 (09:15→14:35)
[2021-01-01] MEDS: Thiamine HCL 100 MG TABLET PO (09:16)
[2021-01-01] MEDS: Nicotine 21 MG PATCH.TD24 TRANSDERMA (09:17)
[2021-01-01] MEDS: 0.9 % Sodium Chloride Flush 3 ML SYRINGE IVFLUSH (09:23)
[2021-01-01] MEDS: LORazepam 2 MG/ML VIAL IVPUSH ×2 (09:25→14:35)
--- NOTE | 2021-01-01 11:31 | MHC.CM.PN ---
per rounds today pt to be transferred to a psych unit today when bed is avaliable
[2021-01-01 12:00] VITALS: BP 118/56; PULSE 65; RESP 18; TEMP 37.6; O2SAT 95
--- NOTE | 2021-01-01 12:34 | PM.DS ---
DS: Providers Provider Date of Service: 01/01/21 Date of admission: 12/29/20 15:03 Primary care physician: Unknown Physician Consults: 12/28/20 22:25 Consult to Crisis Stat Reason for consultation: od and si 12/29/20 15:42 Consult for Sitter Routine Reason for consultation: SI 12/30/20 08:20 Consult to Crisis Stat Reason for consultation: Medically ready, Si DS: Diagnosis Discharge Diagnosis (1) Suicide attempt: Status: Acute (2) Drug overdose: Status: Acute (3) Chronic post-traumatic stress disorder (PTSD): Status: Chronic DS: Medications Discharge Medications Home Medications: Home Medications Medication Instructions Recorded Confirmed mirtazapine 7.5 mg tablet 7.5 mg PO BEDTIME 12/29/20 12/29/20 nicotine 21 mg/24 hr daily 1 patch TRANSDERMAL DAILY 12/29/20 12/29/20 transdermal patch Previous Rx's Medication Instructions Recorded buprenorphine 8 mg-naloxone 2 mg 2 film SUBLINGUAL DAILY 30 Days 11/24/20 sublingual film (Suboxone) #60 ea bupropion HCl 300 mg 24 hr tablet, 300 mg PO QAM 30 Days #30 tab 11/24/20 extended release (Wellbutrin XL) gabapentin 800 mg tablet 800 mg PO TID 30 Days #90 tab 11/24/20 hydroxyzine pamoate 50 mg capsule 50 mg PO TID PRN 30 Days #60 cap 11/24/20 nicotine (polacrilex) 2 mg gum 4 mg BUCCAL Q2H PRN 30 Days #100 ea 11/24/20 prazosin 1 mg capsule 1 mg PO BEDTIME 30 Days #30 cap 11/24/20 trazodone 150 mg tablet 150 mg PO BEDTIME 30 Days #30 tab 11/24/20 DS: Summary Hospital Course Hospital Course: 50 year old male with depression recently admitted to inpatient Psych for depression about? a month ago presents with intentional overdose by takeing? 20 pills of 300 mg of Welbutrin because he has been feeling hopeless, and has lost everything the last couple of weeks including his house. He felt guilty right after and? called an ambulance immediately after and was brought to the ED and treated with activated? charcoal.? Patient also has a history of alcohol use disorder and drinks about 15 to 30 beers per day and last drank yesterday. He history of alcohol withdrawal, inclduing seizure in the past.? ? Patient's initial laboratory evaluation revealed an elevated WBC of 14.7 elevated BUN and creatinine of 23 and 1.76, elevated AST of 80. The patient's salicylates, acetaminophen and ethanol were below detectable limits, even when repeated hours later.? Poison control advised 24 hours monitoring for possible delayed seizure and increased in QTC. Initial ECG showed QTc of 442 and repeat 490. Hospital course: Patient was hospitalized for monitoring of QTc and seizure precaution--He has not had seizure, QTc is normal. He was also on CIWA for alcohol withdrawal and has not had any withdrawal symptoms. He is ready for inpatient Psych treatment for recurrent depression and SI. He had Pascual due to dehydration and this has resolved with IV fluid Time Spent with Patient Time attestation: Total time spent providing and/or coordinating discharge services: Discharge coordination time: Greater than 30 minutes Quality: Stroke Does the patient have a stroke diagnosis?: No Physical Exam Vital Signs: Vital Signs: Last Vital Signs Temp 97.3 F 01/01/21 07:55 Pulse 60 01/01/21 07:55 Resp 18 01/01/21 07:55 BP 98/53 L 01/01/21 07:55 Pulse Ox 97 01/01/21 07:55 Body Mass Index 31.4 DS: Data Data Completed and Pending Completed studies during hospitalization [Text1]: Procedures Detoxification Services for Substance Abuse Treatment (11/16/20) Labs on day of discharge: Laboratory Results - last 24 hr 12/31/20 12:52 WBC 5.0 RBC 4.12 L Hgb 12.4 L Hct 36.6 L MCV 88.8 MCH 30.1 MCHC 33.9 RDW 13.2 Plt Count 186 MPV 10.5 Absolute Nucleated RBC 0.000 Nucleated RBC % (auto) 0.0 Discharge Plan Discharge Anticipated Discharge Date/Time: 01/01/21 12:23 Disposition: Xfer Psychiatric Hosp Referrals: Physician,Unknown [Primary Care Provider] - 1 Week Discharge Medications: Continued nicotine (polacrilex) 2 mg Gum 4 mg buccal Q2H PRN (Reason: Nicotine Cravings) 30 Days Qty: 100 RF: 1 gabapentin 800 mg tablet 800 mg PO TID 30 Days Qty: 90 RF: 1 trazodone 150 mg tablet 150 mg PO BEDTIME 30 Days Qty: 30 RF: 1 bupropion HCl [Wellbutrin XL] 300 mg tablet extended release 24 hr 300 mg PO QAM 30 Days Qty: 30 RF: 1 buprenorphine-naloxone [Suboxone] 8-2 mg film 2 film sublingual DAILY 30 Days Qty: 60 RF: 0 hydroxyzine pamoate 50 mg capsule 50 mg PO TID PRN (Reason: anxiety) 30 Days Qty: 60 RF: 1 prazosin 1 mg Capsule 1 mg PO BEDTIME 30 Days Qty: 30 RF: 1 mirtazapine 7.5 mg Tablet 7.5 mg PO BEDTIME RF: 0 nicotine 21 mg/24 hr Patch 24 Hour 1 patch TRANSDERMAL DAILY RF: 0 Discharge Orders: Discharge Order (Routine); Ordered 01/01/21 [facility] Forms: Patient Portal Discharge page Care Plan Goals: Inpatient psych treatment for depression Health Concerns: Depressionon with suicide attempt Plan of Treatment: Treatment in inpatient Psych unit Assessment: as above
[2021-01-01 15:01] VITALS: BP 119/59; PULSE 72; RESP 20; TEMP 37.4; O2SAT 95
== END 2021-01-01 18:08 | DRG 812 ==
LOC: HO.ED 12-29 12:07 → HO.EDOVER 12-29 15:12 → HO.IMC 12-29 16:59
PROVIDERS: Emergency Medicine; Admitting Provider Internal Medicine; Emergency Provider Emergency Medicine Emergency Medical Services; PCP Nurse Practitioner Family; Visit Provider Internal Medicine
DX: T43.292A Poisoning by other antidepressants, intentional self-harm, initial encounter (principal); N17.9 Acute kidney failure, unspecified; F33.2 Major depressive disorder, recurrent severe without psychotic features; R45.851 Suicidal ideations; F17.210 Nicotine dependence, cigarettes, uncomplicated; F43.12 Post-traumatic stress disorder, chronic; R74.01 Elevation of levels of liver transaminase levels; Z20.822 Contact with and (suspected) exposure to COVID-19; Z59.0 Homelessness; Z71.6 Tobacco abuse counseling; Y92.9 Unspecified place or not applicable; Z79.899 Other long term (current) drug therapy
CPT/HCPCS: 0241U; 36415; 80048; 80053; 80076; 80143; 80179; 80307; 81001; 82077; 83690; 83735; 85025; 85027; 93005; 99285; J2060

== ENCOUNTER 2021-01-01 18:09 | Inpatient (IN) | payer OTHER, SELFPAY ==
[2021-01-01 18:53] VITALS: BMI 25.9
[2021-01-01] MEDS: LORazepam 1 MG TABLET PO (19:17)
--- NOTE | 2021-01-01 19:54 | PC.ADMIT ---
Pt is a 50 year old male who presents to from [facility] ED at approx 18;35 on a cv status. Pt is covid - Utox + for coacine. Pt is a 50 year old male assessed by CARE Team at [facility] on the IMC unit after arriving via ambulance and later being admitted. Pt reports not taking his meds as prescribed. Pt is presently homeless and jobless after a dispute with his landlord who is also his boss. Pt relapsed on alcohol for the last week and a recent relapse on crack cocaine. He arrived at [facility] after an intentional OD on his medications. Pt denied SI/HI/VHA. called and notified for orders. Start treatment plans and monitor for safety
[2021-01-01] MEDS: traZODone HCL 50 MG TABLET 150 MG PO (20:29)
[2021-01-01 20:30] VITALS: BP 121/70; PULSE 79
[2021-01-01] MEDS: buPROPion HCl XL 300 MG TAB.ER.24H PO (20:30)
[2021-01-01] MEDS: Prazosin HCL 1 MG CAPSULE PO (20:30)
[2021-01-01] MEDS: Gabapentin 400 MG CAPSULE 800 MG PO (20:31)
[2021-01-01] MEDS: Mirtazapine 7.5 MG TABLET PO (20:31)
[2021-01-02 06:00] VITALS: BP 105/59; PULSE 60; RESP 16; TEMP 36.6; O2SAT 95
[2021-01-02 08:00] VITALS: PULSE 76
[2021-01-02] MEDS: Nicotine 21 MG PATCH.TD24 TRANSDERMA (08:58)
[2021-01-02] MEDS: Gabapentin 400 MG CAPSULE 800 MG PO ×3 (08:58→20:58)
[2021-01-02] MEDS: Buprenorphine/Naloxone 8/2 mg FILM 2 FILM SUBLINGUAL (08:58)
[2021-01-02] MEDS: buPROPion HCl XL 300 MG TAB.ER.24H PO (08:58)
[2021-01-02] MEDS: LORazepam 1 MG TABLET 2 MG PO ×3 (09:03→16:47)
[2021-01-02 16:00] VITALS: BP 127/71; PULSE 78; RESP 18; TEMP 36.2; O2SAT 96
[2021-01-02] MEDS: Ibuprofen 600 MG TABLET PO (16:47)
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
[2021-01-02 17:44] VITALS: BP 127/71; PULSE 78; RESP 18; TEMP 36.2; O2SAT 96
[2021-01-02] MEDS: LORazepam 1 MG TABLET PO ×2 (19:02→20:58)
[2021-01-02 20:58] VITALS: BP 133/73; PULSE 74
[2021-01-02] MEDS: Mirtazapine 7.5 MG TABLET PO (20:58)
[2021-01-02] MEDS: traZODone HCL 50 MG TABLET 150 MG PO (20:58)
[2021-01-02] MEDS: Prazosin HCL 1 MG CAPSULE PO (20:58)
[2021-01-02] MEDS: Clotrimazole 1 % Cream 15 GM TUBE 1 APPL TOPICAL (21:00)
[2021-01-03] MEDS: LORazepam 1 MG TABLET PO ×7 (02:04→20:22)
[2021-01-03 06:00] VITALS: BP 119/62; PULSE 69; RESP 18; TEMP 35.3; O2SAT 96
[2021-01-03 08:00] VITALS: BP 129/76; PULSE 69
[2021-01-03] MEDS: Gabapentin 400 MG CAPSULE 800 MG PO ×3 (08:25→20:22)
[2021-01-03] MEDS: buPROPion HCl XL 300 MG TAB.ER.24H PO (08:25)
[2021-01-03] MEDS: Nicotine 21 MG PATCH.TD24 TRANSDERMA (08:26)
[2021-01-03] MEDS: Buprenorphine/Naloxone 8/2 mg FILM 2 FILM SUBLINGUAL (08:26)
--- NOTE | 2021-01-03 11:43 | HO.PSYCHPN ---
Subjective Subjective Date of Service: 01/03/21 Reason For Visit: intentional antidepressant overdose Interim History: pt seen on 01/03 Patient reports he still feels withdrawal symptoms but feels that treatment is adequate and he is able to rest. Patient reports continued depression however he does feel that it is fading; he denies any SI. Patient feeling a little groggy from benzo administration, would like to continue to rest and talk more at another time. Residential Program Coordinator agrees Patient spending most of time in bed resting Comes out periodically for meals Mental Status Exam Mental Status Exam Narrative: Pt is alert and oriented; behavior is cooperative and calm; patient is in alcohol withdrawal with mild tremors; dressed in hospital gown with adequate hygiene, shaved head; mood is described as depressed but fading and affect congruent; eye contact appropriate; Speech remains slowed and soft; psychomotor retardation remains present; thought process is organized, linear, logical and goal directed. Thought content is on treatment; otherwise TC relevant to pertinent topics and without any delusional content, paranoid ideations or grandiosity; denies any SI/HI. There is no evidence of perceptual disturbance. ?Patients insight and judgment appear intact. Diagnostics Vital Signs (24Hr): Vital Signs - 24 hr 01/02/21 16:00 01/02/21 17:44 01/02/21 20:58 Temperature 97.2 F 97.2 F Pulse Rate 78 78 74 Respiratory Rate 18 18 Blood Pressure 127/71 127/71 133/73 Pulse Oximetry 96 96 01/03/21 06:00 Temperature 95.5 F L Pulse Rate 69 Respiratory Rate 18 Blood Pressure 119/62 Pulse Oximetry 96 Body Mass Index 25.9 Medications Medications Current Medications Generic Name Dose Route Start Last Admin Trade Name Freq PRN Reason Stop Dose Admin Al Hydroxide/Mg Hydroxide 30 ml 01/01/21 18:59 Magnesium Hydrox/Alum Hydrox 30 Ml Oral.Susp PO Q6H PRN Heartburn/Nausea Buprenorphine/Naloxone 2 film 01/02/21 09:00 01/03/21 08:26 Buprenorphine/Naloxone 8/2 Mg Film SUBLINGUAL 2 film DAILY FOUZIA Administration Bupropion HCl 300 mg 01/01/21 18:59 01/03/21 08:25 Bupropion Hcl Xl 300 Mg Tab.Er.24h PO 300 mg DAILY FOUZIA Administration Clotrimazole 1 appl 01/02/21 21:00 01/02/21 21:00 Clotrimazole 1 % Cream 15 Gm Tube TOPICAL 1 appl BID FOUZIA Administration Protocol Gabapentin 800 mg 01/01/21 21:00 01/03/21 08:25 Gabapentin 400 Mg Capsule PO 800 mg TID FOUZIA Administration Hydroxyzine HCl 50 mg 01/01/21 18:59 Hydroxyzine Hcl 50 Mg Tablet PO TID PRN anxiety Ibuprofen 600 mg 01/02/21 16:36 01/02/21 16:47 Ibuprofen 600 Mg Tablet PO 600 mg Q6H PRN Administration headach; mild pain Lorazepam 1 mg 01/02/21 21:00 01/03/21 08:25 Lorazepam 1 Mg Tablet PO 1 mg TID FOUZIA Administration Lorazepam 1 mg 01/02/21 16:39 01/03/21 06:24 Lorazepam 1 Mg Tablet PO 1 mg Q2H PRN Administration mild to modAlcohol Withdrawal Magnesium Hydroxide 30 ml 01/01/21 18:59 Milk Of Magnesia 30 Ml Oral.Susp PO DAILY PRN Constipation Mirtazapine 7.5 mg 01/01/21 21:00 01/02/21 20:58 Mirtazapine 7.5 Mg Tablet PO 7.5 mg BEDTIME FOUZIA Administration Nicotine 21 mg 01/02/21 09:00 01/03/21 08:26 Nicotine 21 Mg Patch.Td24 TRANSDERMA 21 mg DAILY FOUZIA Administration Nicotine Polacrilex 4 mg 01/01/21 18:59 Nicotine Polacrilex 2 Mg Gum BUCCAL Q2H PRN Nicotine Cravings Pharmacy Consult 1 each 01/01/21 18:59 Consult Rx Perform Med Rec MISCELLANE ONCE PRN Consult order Prazosin HCl 1 mg 01/01/21 21:00 01/02/21 20:58 Prazosin Hcl 1 Mg Capsule PO 1 mg BEDTIME FOUZIA Administration Protocol Trazodone HCl 150 mg 01/01/21 21:00 01/02/21 20:58 Trazodone Hcl 50 Mg Tablet PO 150 mg BEDTIME FOUZIA Administration Allergies Allergies Allergy/AdvReac Type Severity Reaction Status Date / Time No Known Allergies Allergy Verified 12/28/20 21:57 [No Known Allergies*] Assessment & Plan Assessment & Plan (1) MDD (major depressive disorder), recurrent episode, severe: Status: Chronic Code(s): F33.2 - Major depressive disorder, recurrent severe without psychotic features (2) Chronic post-traumatic stress disorder (PTSD): Status: Chronic Code(s): F43.12 - Post-traumatic stress disorder, chronic (3) Opioid use disorder: Status: Chronic Code(s): F11.99 - Opioid use, unspecified with unspecified opioid-induced disorder (4) PASCUAL (acute kidney injury): Status: Resolved Code(s): N17.9 - Acute kidney failure, unspecified (5) Cocaine abuse: Status: Acute Code(s): F14.10 - Cocaine abuse, uncomplicated (6) Alcohol dependence: Status: Acute Code(s): F10.20 - Alcohol dependence, uncomplicated Assessment and Plan: IMPRESSION: Patient is a 50-year-old male with history of alcohol dependence and history of withdrawal seizures, cocaine abuse, depression, Ptsd and anxiety who presents for depression with intentional overdose after taking 20 pills of 300 mg of Welbutrin and also in need of detox from alcohol dependence. Pt was at first treated with activated? charcoal and sent to medical floor for monitoring of QTc, which remained normal, and seizure precaution. He was also treated for alcohol withdrawal with CIWA; he had Pascual due to dehydration and this has resolved with IV fluid. Patient soon stabilized and transfered to psychiatric unit. Patient patient reported depression but denied any SI saying it had fully resolved. Admitted for depression and continued alcohol detox at last admission, pt discharged to [facility] but left after 3 days Patient reports continued depression but SI has resolved. He says depression is getting a little better and appreciates being back on home medications. Still ambivalent about disulfiram. Patient remains in alcohol withdrawal, requiring detox which is currently a barrier to his discharge. PLAN: Patient on CV Q 15 minutes checks Will had Ativan 1 mg t.i.d. scheduled and then taper for alcohol detox Ativan 1 mg q.2h p.r.n. for withdrawal Will continue home medications which were restarted Patient considering disulfiram; has a history of hep C Patient reports unsafe behaviors including sexual activity sharing drug paraphernalia will get STD and hep C labs Greater than 50% of the session was spent on counseling and/or coordination of care Reason for contiued inpatient stay Substantial Risk for: med/psych decompensation
[2021-01-03 18:00] VITALS: RESP 16
[2021-01-03 20:20] VITALS: BP 127/66; PULSE 78
[2021-01-03] MEDS: Prazosin HCL 1 MG CAPSULE PO (20:20)
[2021-01-03] MEDS: Mirtazapine 7.5 MG TABLET PO (20:21)
[2021-01-03] MEDS: traZODone HCL 50 MG TABLET 150 MG PO (20:21)
[2021-01-03] MEDS: hydrOXYzine HCL 50 MG TABLET PO (20:22)
[2021-01-03 20:38] VITALS: BP 127/66; PULSE 78; RESP 16; TEMP 36.3; O2SAT 95
[2021-01-04 04:28] LABS: HIV AB/AG Nonreactive (Nonreactive); HIV Num 1 0.07 S/CO (0.00-0.99)
[2021-01-04 04:30] LABS: ~HepC Num1 15.18 S/CO (0.00-0.79); ~Hepatitis C Antibody Reactive (Nonreactive)
[2021-01-04] MEDS: LORazepam 1 MG TABLET PO ×7 (04:59→23:44)
[2021-01-04 06:00] VITALS: BP 97/54; PULSE 65; RESP 12; TEMP 36.4; O2SAT 95
[2021-01-04 07:00] VITALS: BMI 31.9
[2021-01-04] MEDS: Nicotine 21 MG PATCH.TD24 TRANSDERMA (09:00)
[2021-01-04] MEDS: Buprenorphine/Naloxone 8/2 mg FILM 2 FILM SUBLINGUAL (09:00)
[2021-01-04] MEDS: buPROPion HCl XL 300 MG TAB.ER.24H PO (09:00)
[2021-01-04] MEDS: Gabapentin 400 MG CAPSULE 800 MG PO ×3 (10:08→20:22)
[2021-01-04 10:12] VITALS: BP 110/64; PULSE 67; RESP 18; TEMP 36.2; O2SAT 96
--- NOTE | 2021-01-04 16:19 | HO.PSYCHPN ---
Subjective Subjective Date of Service: 01/04/21 Reason For Visit: intentional antidepressant overdose Interim History: Patient reports that his mood is ?all right? and that depression is getting better. He denies any SI at all. He also says that his anxiety is under control. He still experiencing alcohol withdrawal symptoms but says benzos are adequate. Today is CIWA was 18 at 1 point. Patient is still open to saw from however labs are pending; data analyst report writer consulted with Infectious Disease to assess hep C results. Patient would like to get into another program and is hoping that that can happen by early next week. No other complaints, no requests. Mental Status Exam Mental Status Exam Narrative: Pt is alert and oriented; behavior is cooperative and calm; patient is in alcohol withdrawal; dressed in hospital gown with adequate hygiene, shaved head; mood is described as alright and affect congruent; eye contact appropriate; Speech remains a little soft, but normal rate and prosody; psychomotor retardation remains present; thought process is organized, linear, logical and goal directed. Thought content is on treatment; otherwise TC relevant to pertinent topics and without any delusional content, paranoid ideations or grandiosity; denies any SI/HI. There is no evidence of perceptual disturbance. ?Patients insight and judgment appear intact. Diagnostics Vital Signs (24Hr): Vital Signs - 24 hr 01/03/21 18:00 01/03/21 20:20 01/03/21 20:38 Temperature 97.4 F Pulse Rate 78 78 Respiratory Rate 16 16 Blood Pressure 127/66 127/66 Pulse Oximetry 95 01/04/21 06:00 01/04/21 10:12 Temperature 97.5 F 97.1 F Pulse Rate 65 67 Respiratory Rate 12 18 Blood Pressure 97/54 L 110/64 Pulse Oximetry 95 96 Body Mass Index 31.9 Labs Labs: Laboratory Results - last 48 hr 01/03/21 01/03/21 12:21 12:21 Hepatitis C Ab (EIA) Reactive H HIV 1&2 Ab/P24 Ag 4thGn Nonreactive Medications Medications Current Medications Generic Name Dose Route Start Last Admin Trade Name Freq PRN Reason Stop Dose Admin Al Hydroxide/Mg Hydroxide 30 ml 01/01/21 18:59 Magnesium Hydrox/Alum Hydrox 30 Ml Oral.Susp PO Q6H PRN Heartburn/Nausea Buprenorphine/Naloxone 2 film 01/02/21 09:00 01/04/21 09:00 Buprenorphine/Naloxone 8/2 Mg Film SUBLINGUAL 2 film DAILY FOUZIA Administration Bupropion HCl 300 mg 01/01/21 18:59 01/04/21 09:00 Bupropion Hcl Xl 300 Mg Tab.Er.24h PO 300 mg DAILY FOUZIA Administration Clotrimazole 1 appl 01/02/21 21:00 01/04/21 10:18 Clotrimazole 1 % Cream 15 Gm Tube TOPICAL Not Given BID FOUZIA Protocol Gabapentin 800 mg 01/01/21 21:00 01/04/21 14:51 Gabapentin 400 Mg Capsule PO 800 mg TID FOUZIA Administration Hydroxyzine HCl 50 mg 01/01/21 18:59 01/03/21 20:22 Hydroxyzine Hcl 50 Mg Tablet PO 50 mg TID PRN Administration anxiety Ibuprofen 600 mg 01/02/21 16:36 01/02/21 16:47 Ibuprofen 600 Mg Tablet PO 600 mg Q6H PRN Administration headach; mild pain Lorazepam 1 mg 01/02/21 21:00 01/04/21 14:52 Lorazepam 1 Mg Tablet PO 01/04/21 23:59 1 mg TID FOUZIA Administration Lorazepam 1 mg 01/02/21 16:39 01/04/21 10:20 Lorazepam 1 Mg Tablet PO 1 mg Q2H PRN Administration mild to modAlcohol Withdrawal Lorazepam 1 mg 01/05/21 08:00 Lorazepam 1 Mg Tablet PO 01/06/21 23:59 BID FOUZIA Magnesium Hydroxide 30 ml 01/01/21 18:59 Milk Of Magnesia 30 Ml Oral.Susp PO DAILY PRN Constipation Mirtazapine 7.5 mg 01/01/21 21:00 01/03/21 20:21 Mirtazapine 7.5 Mg Tablet PO 7.5 mg BEDTIME FOUZIA Administration Nicotine 21 mg 01/02/21 09:00 01/04/21 09:00 Nicotine 21 Mg Patch.Td24 TRANSDERMA 21 mg DAILY FOUZIA Administration Nicotine Polacrilex 4 mg 01/01/21 18:59 Nicotine Polacrilex 2 Mg Gum BUCCAL Q2H PRN Nicotine Cravings Pharmacy Consult 1 each 01/01/21 18:59 Consult Rx Perform Med Rec MISCELLANE ONCE PRN Consult order Prazosin HCl 1 mg 01/01/21 21:00 01/03/21 20:20 Prazosin Hcl 1 Mg Capsule PO 1 mg BEDTIME FOUZIA Administration Protocol Trazodone HCl 150 mg 01/01/21 21:00 01/03/21 20:21 Trazodone Hcl 50 Mg Tablet PO 150 mg BEDTIME FOUZIA Administration Allergies Allergies Allergy/AdvReac Type Severity Reaction Status Date / Time No Known Allergies Allergy Verified 12/28/20 21:57 [No Known Allergies*] Assessment & Plan Assessment & Plan (1) MDD (major depressive disorder), recurrent episode, severe: Status: Chronic Code(s): F33.2 - Major depressive disorder, recurrent severe without psychotic features (2) Chronic post-traumatic stress disorder (PTSD): Status: Chronic Code(s): F43.12 - Post-traumatic stress disorder, chronic (3) Opioid use disorder: Status: Chronic Code(s): F11.99 - Opioid use, unspecified with unspecified opioid-induced disorder (4) PASCUAL (acute kidney injury): Status: Resolved Code(s): N17.9 - Acute kidney failure, unspecified (5) Cocaine abuse: Status: Acute Code(s): F14.10 - Cocaine abuse, uncomplicated (6) Alcohol dependence: Status: Acute Code(s): F10.20 - Alcohol dependence, uncomplicated Assessment and Plan: IMPRESSION: Patient is a 50-year-old male with history of alcohol dependence and history of withdrawal seizures, cocaine abuse, depression, Ptsd and anxiety who presents for depression with intentional overdose after taking 20 pills of 300 mg of Welbutrin and also in need of detox from alcohol dependence. Pt was at first treated with activated? charcoal and sent to medical floor for monitoring of QTc, which remained normal, and seizure precaution. He was also treated for alcohol withdrawal with CIWA; he had Pascual due to dehydration and this has resolved with IV fluid. Patient soon stabilized and transfered to psychiatric unit. Patient patient reported depression but denied any SI saying it had fully resolved. Admitted for depression and continued alcohol detox at last admission, pt discharged to [facility] but left after 3 days Patient reports continued depression but SI has resolved. He says depression is getting a little better and appreciates being back on home medications. Still open to disulfiram but waiting for lab results. Patient remains in alcohol withdrawal, requiring detox which is currently a barrier to his discharge. -infectious disease consult placed PLAN: Patient on CV Q 15 minutes checks Will had Ativan 1 mg t.i.d. scheduled and then taper for alcohol detox Ativan 1 mg q.2h p.r.n. for withdrawal Will continue home medications which were restarted Patient considering disulfiram; has a history of hep C Patient reports unsafe behaviors including sexual activity sharing drug paraphernalia will get STD and hep C labs Greater than 50% of the session was spent on counseling and/or coordination of care Reason for contiued inpatient stay Substantial Risk for: med/psych decompensation
[2021-01-04 18:00] VITALS: BP 132/83; PULSE 95; TEMP 36.7
[2021-01-04 20:21] VITALS: BP 128/76; PULSE 73
[2021-01-04] MEDS: Mirtazapine 7.5 MG TABLET PO (20:21)
[2021-01-04] MEDS: hydrOXYzine HCL 50 MG TABLET PO (20:21)
[2021-01-04] MEDS: Prazosin HCL 1 MG CAPSULE PO (20:21)
[2021-01-04] MEDS: traZODone HCL 50 MG TABLET 150 MG PO (20:22)
[2021-01-04] MEDS: Clotrimazole 1 % Cream 15 GM TUBE 1 APPL TOPICAL (20:25)
[2021-01-05] MEDS: LORazepam 1 MG TABLET PO ×6 (03:32→20:01)
[2021-01-05 05:48] LABS: CT PCR NOT DETECTED (Not Detect.); NG PCR NOT DETECTED (Not Detect.)
[2021-01-05 06:47] VITALS: BP 105/52; PULSE 60; RESP 18; TEMP 36.4; O2SAT 94
[2021-01-05] MEDS: Gabapentin 400 MG CAPSULE 800 MG PO ×3 (09:10→20:01)
[2021-01-05] MEDS: Buprenorphine/Naloxone 8/2 mg FILM 2 FILM SUBLINGUAL (09:10)
[2021-01-05] MEDS: buPROPion HCl XL 300 MG TAB.ER.24H PO (09:10)
[2021-01-05] MEDS: Nicotine 21 MG PATCH.TD24 TRANSDERMA (09:11)
[2021-01-05 12:32] VITALS: BP 121/61; PULSE 77; RESP 18; TEMP 36.4; O2SAT 98
--- NOTE | 2021-01-05 17:28 | P.PNPSI_ITS ---
Subjective Subjective Date of Service: 01/05/21 Reason For Visit: intentional antidepressant overdose Interim History: pt seen on 01/05 mood better, depression low and no SI. Pt anxious about possible discharge to homelessness and hoping he gets into program; if not he says he'll make the best of it. Feels withdrawal symptoms are lessening, though still present. Pt is going to groups which he says is helping. ID Dr. Noble (sp) consulted who informed junior copywriter and pt that while labs are still pending, even if pt has Hep C, with or without treatment, this will not increase risk for adverse liver event from being on Disulfiam. Discussed disulfiram further and pt remains ambivalent and would like to hold off starting at this time. Mental Status Exam Mental Status Exam Narrative: Pt is alert and oriented; behavior is cooperative and calm; dressed in hospital gown with adequate hygiene, shaved head; mood is described as anxious; affect euthymic; eye contact appropriate; Speech normal rate, volume and prosody; no psychomotor retardation present; thought process is organized, linear, logical and goal directed. Thought content is on treatment and anxious about discharge; otherwise TC relevant to pertinent topics and without any delusional content, paranoid ideations or grandiosity; denies any SI/HI. There is no evidence of perceptual disturbance. ?Patients insight and judgment appear intact. Diagnostics Vital Signs (24Hr): Vital Signs - 24 hr 01/04/21 18:00 01/04/21 20:21 01/05/21 06:47 Temperature 98.1 F 97.6 F Pulse Rate 95 73 60 Respiratory Rate 18 Blood Pressure 132/83 128/76 105/52 L Pulse Oximetry 94 01/05/21 12:32 Temperature 97.6 F Pulse Rate 77 Respiratory Rate 18 Blood Pressure 121/61 Pulse Oximetry 98 Body Mass Index 31.9 Labs Labs: Laboratory Results - last 48 hr 01/03/21 01/03/21 01/04/21 12:21 12:21 18:21 Chlam trachomat DNA PCR NOT DETECTED Hepatitis C Ab (EIA) Reactive H HIV 1&2 Ab/P24 Ag 4thGn Nonreactive N.gonorrhoeae DNA (PCR) NOT DETECTED Medications Medications Current Medications Generic Name Dose Route Start Last Admin Trade Name Freq PRN Reason Stop Dose Admin Al Hydroxide/Mg Hydroxide 30 ml 01/01/21 18:59 Magnesium Hydrox/Alum Hydrox 30 Ml Oral.Susp PO Q6H PRN Heartburn/Nausea Buprenorphine/Naloxone 2 film 01/02/21 09:00 01/05/21 09:10 Buprenorphine/Naloxone 8/2 Mg Film SUBLINGUAL 2 film DAILY FOUZIA Administration Bupropion HCl 300 mg 01/01/21 18:59 01/05/21 09:10 Bupropion Hcl Xl 300 Mg Tab.Er.24h PO 300 mg DAILY FOUZIA Administration Clotrimazole 1 appl 01/02/21 21:00 01/05/21 09:15 Clotrimazole 1 % Cream 15 Gm Tube TOPICAL Not Given BID [facility] Protocol Gabapentin 800 mg 01/01/21 21:00 01/05/21 14:30 Gabapentin 400 Mg Capsule PO 800 mg TID FOUZIA Administration Hydroxyzine HCl 50 mg 01/01/21 18:59 01/04/21 20:21 Hydroxyzine Hcl 50 Mg Tablet PO 50 mg TID PRN Administration anxiety Ibuprofen 600 mg 01/02/21 16:36 01/02/21 16:47 Ibuprofen 600 Mg Tablet PO 600 mg Q6H PRN Administration headach; mild pain Lorazepam 1 mg 01/02/21 16:39 01/05/21 14:35 Lorazepam 1 Mg Tablet PO 1 mg Q2H PRN Administration mild to modAlcohol Withdrawal Lorazepam 1 mg 01/05/21 08:00 01/05/21 09:57 Lorazepam 1 Mg Tablet PO 01/06/21 23:59 Not Given BID FOUZIA Magnesium Hydroxide 30 ml 01/01/21 18:59 Milk Of Magnesia 30 Ml Oral.Susp PO DAILY PRN Constipation Mirtazapine 7.5 mg 01/01/21 21:00 01/04/21 20:21 Mirtazapine 7.5 Mg Tablet PO 7.5 mg BEDTIME FOUZIA Administration Nicotine 21 mg 01/02/21 09:00 01/05/21 09:11 Nicotine 21 Mg Patch.Td24 TRANSDERMA 21 mg DAILY FOUZIA Administration Nicotine Polacrilex 4 mg 01/01/21 18:59 Nicotine Polacrilex 2 Mg Gum BUCCAL Q2H PRN Nicotine Cravings Pharmacy Consult 1 each 01/01/21 18:59 Consult Rx Perform Med Rec MISCELLANE ONCE PRN Consult order Prazosin HCl 1 mg 01/01/21 21:00 01/04/21 20:21 Prazosin Hcl 1 Mg Capsule PO 1 mg BEDTIME FOUZIA Administration Protocol Trazodone HCl 150 mg 01/01/21 21:00 01/04/21 20:22 Trazodone Hcl 50 Mg Tablet PO 150 mg BEDTIME FOUZIA Administration Allergies Allergies Allergy/AdvReac Type Severity Reaction Status Date / Time No Known Allergies Allergy Verified 12/28/20 21:57 [No Known Allergies*] Assessment & Plan Assessment & Plan (1) MDD (major depressive disorder), recurrent episode, severe: Status: Chronic Code(s): F33.2 - Major depressive disorder, recurrent severe without psychotic features (2) Chronic post-traumatic stress disorder (PTSD): Status: Chronic Code(s): F43.12 - Post-traumatic stress disorder, chronic (3) Opioid use disorder: Status: Chronic Code(s): F11.99 - Opioid use, unspecified with unspecified opioid-induced disorder (4) PASCUAL (acute kidney injury): Status: Resolved Code(s): N17.9 - Acute kidney failure, unspecified (5) Cocaine abuse: Status: Acute Code(s): F14.10 - Cocaine abuse, uncomplicated (6) Alcohol dependence: Status: Acute Code(s): F10.20 - Alcohol dependence, uncomplicated Assessment and Plan: IMPRESSION: Patient is a 50-year-old male with history of alcohol dependence and history of withdrawal seizures, cocaine abuse, depression, Ptsd and anxiety who presents for depression with intentional overdose after taking 20 pills of 300 mg of Welbutrin and also in need of detox from alcohol dependence. Pt was at first treated with activated? charcoal and sent to medical floor for monitoring of QTc, which remained normal, and seizure precaution. He was also treated for alcohol withdrawal with CIWA; he had Pascual due to dehydration and this has resolved with IV fluid. Patient soon stabilized and transfered to psychiatric unit. Patient patient reported depression but denied any SI saying it had fully resolved. Admitted for depression and continued alcohol detox at last admission, pt discharged to [facility] but left after 3 days Patient reports depression resolved; no SI. home med regimen working well Decided against disulfiram at this time. -infectious disease consult advice appreciated (hep C viral load labs still pending and Dr. Veloz will follow -labs thus far reviewed pt on tail end of withdrawal discharge planned for early next week PLAN: Patient on CV Q 15 minutes checks Will continue home medications which were restarted Greater than 50% of the session was spent on counseling and/or coordination of care Reason for contiued inpatient stay Substantial Risk for: other
[2021-01-05 18:00] VITALS: BP 150/84; PULSE 80; TEMP 35.8
[2021-01-05] MEDS: hydrOXYzine HCL 50 MG TABLET PO (20:01)
[2021-01-05 20:02] VITALS: BP 150/84; PULSE 80
[2021-01-05] MEDS: Mirtazapine 7.5 MG TABLET PO (20:02)
[2021-01-05] MEDS: Prazosin HCL 1 MG CAPSULE PO (20:02)
[2021-01-05] MEDS: traZODone HCL 50 MG TABLET 150 MG PO (20:02)
[2021-01-05] MEDS: Clotrimazole 1 % Cream 15 GM TUBE 1 APPL TOPICAL (20:02)
[2021-01-06] MEDS: LORazepam 1 MG TABLET PO ×6 (00:06→20:06)
[2021-01-06 06:00] VITALS: BP 93/52; PULSE 58; RESP 18; TEMP 36.6; O2SAT 96
[2021-01-06 08:00] VITALS: BP 112/56; PULSE 71; TEMP 36.8; O2SAT 97
[2021-01-06] MEDS: Nicotine 21 MG PATCH.TD24 TRANSDERMA (08:44)
[2021-01-06] MEDS: buPROPion HCl XL 300 MG TAB.ER.24H PO (08:45)
[2021-01-06] MEDS: Gabapentin 400 MG CAPSULE 800 MG PO ×3 (08:45→20:05)
[2021-01-06] MEDS: Buprenorphine/Naloxone 8/2 mg FILM 2 FILM SUBLINGUAL (08:48)
[2021-01-06] MEDS: Clotrimazole 1 % Cream 15 GM TUBE 1 APPL TOPICAL ×2 (09:41→20:08)
[2021-01-06] MEDS: Nicotine Polacrilex 2 MG GUM 4 MG BUCCAL (10:00)
--- NOTE | 2021-01-06 11:22 | P.PNPSI_ITS ---
Subjective Subjective Date of Service: 01/06/21 Reason For Visit: intentional antidepressant overdose Interim History: Patient was seen in rounds today. He has been stable and is doing better. Continues to have some anxiety. No SI/HI. Eating and sleeping adequately. He does have some anxiety regarding his future predicament. Current medications reviewed. Records were reviewed. No changes were made Review of Systems Review of Systems Yes all other systems are reviewed and are negative Mental Status Exam Mental Status Exam Narrative: In today's visit he is alert, oriented and pleasant. Normal speech. Good eye contact. Affect is appropriate and varied. No signs of psychosis. No SI/HI. Cognitively intact. Judgment is intact Diagnostics Vital Signs (24Hr): Vital Signs - 24 hr 01/05/21 12:32 01/05/21 18:00 01/05/21 20:02 Temperature 97.6 F 96.4 F L Pulse Rate 77 80 80 Respiratory Rate 18 Blood Pressure 121/61 150/84 H 150/84 H Pulse Oximetry 98 01/06/21 06:00 01/06/21 08:00 Temperature 97.9 F 98.3 F Pulse Rate 58 71 Respiratory Rate 18 Blood Pressure 93/52 L 112/56 L Pulse Oximetry 96 97 Body Mass Index 31.9 Labs Labs: Laboratory Results - last 48 hr 01/04/21 18:21 Chlam trachomat DNA PCR NOT DETECTED N.gonorrhoeae DNA (PCR) NOT DETECTED Medications Medications Current Medications Generic Name Dose Route Start Last Admin Trade Name Freq PRN Reason Stop Dose Admin Al Hydroxide/Mg Hydroxide 30 ml 01/01/21 18:59 Magnesium Hydrox/Alum Hydrox 30 Ml Oral.Susp PO Q6H PRN Heartburn/Nausea Buprenorphine/Naloxone 2 film 01/02/21 09:00 01/06/21 08:48 Buprenorphine/Naloxone 8/2 Mg Film SUBLINGUAL 2 film DAILY FOUZIA Administration Bupropion HCl 300 mg 01/01/21 18:59 01/06/21 08:45 Bupropion Hcl Xl 300 Mg Tab.Er.24h PO 300 mg DAILY FOUZIA Administration Clotrimazole 1 appl 01/02/21 21:00 01/06/21 09:41 Clotrimazole 1 % Cream 15 Gm Tube TOPICAL 1 appl BID FOUZIA Administration Protocol Gabapentin 800 mg 01/01/21 21:00 01/06/21 08:45 Gabapentin 400 Mg Capsule PO 800 mg TID FOUZIA Administration Hydroxyzine HCl 50 mg 01/01/21 18:59 01/05/21 20:01 Hydroxyzine Hcl 50 Mg Tablet PO 50 mg TID PRN Administration anxiety Ibuprofen 600 mg 01/02/21 16:36 01/02/21 16:47 Ibuprofen 600 Mg Tablet PO 600 mg Q6H PRN Administration headach; mild pain Lorazepam 1 mg 01/02/21 16:39 01/06/21 00:06 Lorazepam 1 Mg Tablet PO 1 mg Q2H PRN Administration mild to modAlcohol Withdrawal Lorazepam 1 mg 01/05/21 08:00 01/06/21 08:45 Lorazepam 1 Mg Tablet PO 01/06/21 23:59 1 mg BID FOUZIA Administration Magnesium Hydroxide 30 ml 01/01/21 18:59 Milk Of Magnesia 30 Ml Oral.Susp PO DAILY PRN Constipation Mirtazapine 7.5 mg 01/01/21 21:00 01/05/21 20:02 Mirtazapine 7.5 Mg Tablet PO 7.5 mg BEDTIME FOUZIA Administration Nicotine 21 mg 01/02/21 09:00 01/06/21 08:44 Nicotine 21 Mg Patch.Td24 TRANSDERMA 21 mg DAILY FOUZIA Administration Nicotine Polacrilex 4 mg 01/01/21 18:59 01/06/21 10:00 Nicotine Polacrilex 2 Mg Gum BUCCAL 4 mg Q2H PRN Administration Nicotine Cravings Pharmacy Consult 1 each 01/01/21 18:59 Consult Rx Perform Med Rec MISCELLANE ONCE PRN Consult order Prazosin HCl 1 mg 01/01/21 21:00 01/05/21 20:02 Prazosin Hcl 1 Mg Capsule PO 1 mg BEDTIME FOUZIA Administration Protocol Trazodone HCl 150 mg 01/01/21 21:00 01/05/21 20:02 Trazodone Hcl 50 Mg Tablet PO 150 mg BEDTIME FOUZIA Administration Allergies Allergies Allergy/AdvReac Type Severity Reaction Status Date / Time No Known Allergies Allergy Verified 12/28/20 21:57 [No Known Allergies*] Assessment & Plan Assessment & Plan (1) MDD (major depressive disorder), recurrent episode, severe: Status: Chronic Code(s): F33.2 - Major depressive disorder, recurrent severe without psychotic features (2) Chronic post-traumatic stress disorder (PTSD): Status: Chronic Code(s): F43.12 - Post-traumatic stress disorder, chronic (3) Opioid use disorder: Status: Chronic Code(s): F11.99 - Opioid use, unspecified with unspecified opioid-induced disorder (4) PASCUAL (acute kidney injury): Status: Resolved Code(s): N17.9 - Acute kidney failure, unspecified (5) Cocaine abuse: Status: Acute Code(s): F14.10 - Cocaine abuse, uncomplicated (6) Alcohol dependence: Status: Acute Code(s): F10.20 - Alcohol dependence, uncomplicated Assessment and Plan: IMPRESSION: Patient is a 50-year-old male with history of alcohol dependence and history of withdrawal seizures, cocaine abuse, depression, Ptsd and anxiety who presents for depression with intentional overdose after taking 20 pills of 300 mg of Welbutrin and also in need of detox from alcohol dependence. Pt was at first treated with activated? charcoal and sent to medical floor for monitoring of QTc, which remained normal, and seizure precaution. He was also treated for alcohol withdrawal with CIWA; he had Pascual due to dehydration and this has resolved with IV fluid. Patient soon stabilized and transfered to psychiatric unit. Patient patient reported depression but denied any SI saying it had fully resolved. Admitted for depression and continued alcohol detox at last admission, pt discharged to [facility] but left after 3 days Patient reports depression resolved; no SI. home med regimen working well Decided against disulfiram at this time. -infectious disease consult advice appreciated (hep C viral load labs still pending and Dr. Veloz will follow -labs thus far reviewed pt on tail end of withdrawal discharge planned for early next week PLAN: Patient on CV Q 15 minutes checks Continue current regimen and plans Greater than 50% of the session was spent on counseling and/or coordination of care Reason for contiued inpatient stay Substantial Risk for: other
--- NOTE | 2021-01-06 14:59 | W.PM.IDCN ---
History of Present Illness Data of Consult Service Date: 01/06/21 Requesting physician: Alexander Rose Primary Care Provider: Unknown Physician HPI Reason for consult: Hepatitis C He presents to hospital with depression. He has positive serology for Hepatitis C He was treated 2004 with interferon and Ribavirin ,F2 for a year. He achieved SVR but has had risk with sniffing cocaine after and hasnt had viral load tested. Review of Systems Review of Systems: Yes all other systems are reviewed and are negative PMFSH Past Medical History Medical History (Updated 01/09/21 @ 00:02 by Heide Ortiz) Alcohol dependence Anxiety Chronic post-traumatic stress disorder (PTSD) Depression EtOH dependence Hepatitis C antibody positive in blood MDD (major depressive disorder), recurrent episode, severe Family History Family History Mother Diabetes mellitus Father Leukemia Family history: reviewed and not pertinent Surgical History Surgical History History of mandibular surgery Social History Social History Household Members: None Household Members Other:: People he met in the community Housing: Homeless Housing Other:: Pt recently lost housing. Friend who had lived with him recently . Do you presently have visiting nurse or other home services: No Alcohol intake: current Alcohol intake frequency: 3 or more drinks per day Alcohol type: beer Patient Tobacco Use Status: Current everyday Tobacco user Tobacco use type: Cigarette Cigarette Packs Per Day: 1 Cigarettes Per Day: 20.0 Years Smoked: 10+ Smoked in Last 30 Days: Yes e-Cigarette/Vaping Use: Never Used Patient Interested in Nicotine Replacement: Yes Patient Given Instructions on How to Stop Smoking: Yes Date Education Initiated: 01/01/21 Second Hand Smoke Exposure: Yes Use of substances other than those prescribed or required for medical reasons: Yes Substance Use Type: Crack/Cocaine Substance Use Frequency: Recent Binge Currently Displaying Signs/Symptoms of Drug Intoxication Withdrawal: No Have you been hit, kicked, punched, or otherwise hurt by someone within the past year? If so, by whom?: No Do you feel safe in your current relationship?: No Current Relationship Is there a partner from a previous relationship who is making you feel unsafe now?: No Are you made to feel afraid or neglected: No Advance Directives: No Advance Directives Information Provided: No Do you have thoughts of harming others: None Do you have a plan to hurt others: No Plan Recently lost weight without trying: No How much weight loss: Not applicable Eating poorly because of decreased appetite: No Nutrition screen score: 0 Nutrition Risks: No Nutritional Risk Poor oral hygiene: No service: No Current occupational status: unemployed Sexual orientation: Straight/Heterosexual Meds Allergies Allergy/AdvReac Type Severity Reaction Status Date / Time No Known Allergies Allergy Verified 12/28/20 21:57 [No Known Allergies*] Active Medications: Current Medications Generic Name Dose Route Start Last Admin Trade Name Freq PRN Reason Stop Dose Admin Al Hydroxide/Mg Hydroxide 30 ml 01/01/21 18:59 Magnesium Hydrox/Alum Hydrox 30 Ml Oral.Susp PO Q6H PRN Heartburn/Nausea Buprenorphine/Naloxone 2 film 01/02/21 09:00 01/06/21 08:48 Buprenorphine/Naloxone 8/2 Mg Film SUBLINGUAL 2 film DAILY FOUZIA Administration Bupropion HCl 300 mg 01/01/21 18:59 01/06/21 08:45 Bupropion Hcl Xl 300 Mg Tab.Er.24h PO 300 mg DAILY FOUZIA Administration Clotrimazole 1 appl 01/02/21 21:00 01/06/21 09:41 Clotrimazole 1 % Cream 15 Gm Tube TOPICAL 1 appl BID FOUZIA Administration Protocol Gabapentin 800 mg 01/01/21 21:00 01/06/21 14:44 Gabapentin 400 Mg Capsule PO 800 mg TID FOUZIA Administration Hydroxyzine HCl 50 mg 01/01/21 18:59 01/05/21 20:01 Hydroxyzine Hcl 50 Mg Tablet PO 50 mg TID PRN Administration anxiety Ibuprofen 600 mg 01/02/21 16:36 01/02/21 16:47 Ibuprofen 600 Mg Tablet PO 600 mg Q6H PRN Administration headach; mild pain Lorazepam 1 mg 01/02/21 16:39 01/06/21 11:24 Lorazepam 1 Mg Tablet PO 1 mg Q2H PRN Administration mild to modAlcohol Withdrawal Lorazepam 1 mg 01/05/21 08:00 01/06/21 08:45 Lorazepam 1 Mg Tablet PO 01/06/21 23:59 1 mg BID FOUZIA Administration Magnesium Hydroxide 30 ml 01/01/21 18:59 Milk Of Magnesia 30 Ml Oral.Susp PO DAILY PRN Constipation Mirtazapine 7.5 mg 01/01/21 21:00 01/05/21 20:02 Mirtazapine 7.5 Mg Tablet PO 7.5 mg BEDTIME FOUZIA Administration Nicotine 21 mg 01/02/21 09:00 01/06/21 08:44 Nicotine 21 Mg Patch.Td24 TRANSDERMA 21 mg DAILY FOUZIA Administration Nicotine Polacrilex 4 mg 01/01/21 18:59 01/06/21 10:00 Nicotine Polacrilex 2 Mg Gum BUCCAL 4 mg Q2H PRN Administration Nicotine Cravings Pharmacy Consult 1 each 01/01/21 18:59 Consult Rx Perform Med Rec MISCELLANE ONCE PRN Consult order Prazosin HCl 1 mg 01/01/21 21:00 01/05/21 20:02 Prazosin Hcl 1 Mg Capsule PO 1 mg BEDTIME FOUZIA Administration Protocol Trazodone HCl 150 mg 01/01/21 21:00 01/05/21 20:02 Trazodone Hcl 50 Mg Tablet PO 150 mg BEDTIME FOUZIA Administration Physical Exam Vital Signs: Vital Signs: Last Vital Signs Temp 98.3 F 01/06/21 08:00 Pulse 71 01/06/21 08:00 Resp 18 01/06/21 06:00 BP 112/56 L 01/06/21 08:00 Pulse Ox 97 01/06/21 08:00 Body Mass Index 31.9 Const: General: cooperative HENMT: Head: Yes normal to inspection Mouth: Normal oral and palatal mucosa present Eyes: General: appearance normal, both eyes and all related structures Resp: Effort & Inspection: normal respiratory effort Cardio: Rate: regular rate Rhythm: regular rhythm GI: Palpation (GI): Soft to palpation and nontender Extrem: General: Yes normal to inspection Assessment and Plan (1) Hepatitis C antibody positive in blood: Status: Chronic Hopefully,just antibody positive and not reinfection Suggest Check HIV Check Hepatitis C viral load and treat if positive I can follow as outpatient if needed [phone] (2) MDD (major depressive disorder), recurrent episode, severe: Status: Resolved (3) Chronic post-traumatic stress disorder (PTSD): Status: Resolved (4) Alcohol dependence: Status: Resolved (5) Cocaine abuse: Status: Resolved (6) Opioid use disorder: Status: Chronic (7) Suicide attempt: Status: Resolved
[2021-01-06 15:42] LABS: HCV Log PCR <1.18 NOT DETECTED Log IU/mL (NOT DETECTED); HepC Viral Load <15 NOT DETECTED IU/mL (NOT DETECTED)
[2021-01-06 18:00] VITALS: BP 140/73; PULSE 68; TEMP 36.5
[2021-01-06] MEDS: traZODone HCL 50 MG TABLET 150 MG PO (20:05)
[2021-01-06 20:06] VITALS: BP 140/73; PULSE 68
[2021-01-06] MEDS: hydrOXYzine HCL 50 MG TABLET PO (20:06)
[2021-01-06] MEDS: Prazosin HCL 1 MG CAPSULE PO (20:06)
[2021-01-06] MEDS: Mirtazapine 7.5 MG TABLET PO (20:06)
[2021-01-07] MEDS: Nicotine 21 MG PATCH.TD24 TRANSDERMA (08:13)
[2021-01-07] MEDS: Gabapentin 400 MG CAPSULE 800 MG PO ×3 (08:13→20:16)
[2021-01-07] MEDS: Buprenorphine/Naloxone 8/2 mg FILM 2 FILM SUBLINGUAL (08:13)
[2021-01-07] MEDS: buPROPion HCl XL 300 MG TAB.ER.24H PO (08:13)
--- NOTE | 2021-01-07 10:02 | HO.PSYCHPN ---
Subjective Subjective Date of Service: 01/07/21 Reason For Visit: intentional antidepressant overdose Subjective Notes: Conditional Voluntary Interim History: patient was seen in rounds today. He has been stable and is doing well. He is eating and sleeping adequately. Continues to have anxiety and depression and is anxious about his future predicament. His symptoms are generally improved. No complaints or side effects. No changes were made today Review of Systems Review of Systems Yes all other systems are reviewed and are negative Diagnostics Vital Signs (24Hr): Vital Signs - 24 hr 01/06/21 18:00 01/06/21 20:06 Temperature 97.7 F Pulse Rate 68 68 Blood Pressure 140/73 H 140/73 H Body Mass Index 31.9 Labs Labs: Laboratory Results - last 48 hr 01/03/21 12:21 Hep C Viral Load <15 NOT DETECTED Hep C Viral Load Log <1.18 NOT DETECTED Medications Medications Current Medications Generic Name Dose Route Start Last Admin Trade Name Freq PRN Reason Stop Dose Admin Al Hydroxide/Mg Hydroxide 30 ml 01/01/21 18:59 Magnesium Hydrox/Alum Hydrox 30 Ml Oral.Susp PO Q6H PRN Heartburn/Nausea Buprenorphine/Naloxone 2 film 01/02/21 09:00 01/07/21 08:13 Buprenorphine/Naloxone 8/2 Mg Film SUBLINGUAL 2 film DAILY FOUZIA Administration Bupropion HCl 300 mg 01/01/21 18:59 01/07/21 08:13 Bupropion Hcl Xl 300 Mg Tab.Er.24h PO 300 mg DAILY FOUZIA Administration Clotrimazole 1 appl 01/02/21 21:00 01/06/21 20:08 Clotrimazole 1 % Cream 15 Gm Tube TOPICAL 1 appl BID FOUZIA Administration Protocol Gabapentin 800 mg 01/01/21 21:00 01/07/21 08:13 Gabapentin 400 Mg Capsule PO 800 mg TID FOUZIA Administration Hydroxyzine HCl 50 mg 01/01/21 18:59 01/06/21 20:06 Hydroxyzine Hcl 50 Mg Tablet PO 50 mg TID PRN Administration anxiety Ibuprofen 600 mg 01/02/21 16:36 01/02/21 16:47 Ibuprofen 600 Mg Tablet PO 600 mg Q6H PRN Administration headach; mild pain Lorazepam 1 mg 01/02/21 16:39 01/07/21 00:00 Lorazepam 1 Mg Tablet PO 1 mg Q2H PRN Administration mild to modAlcohol Withdrawal Magnesium Hydroxide 30 ml 01/01/21 18:59 Milk Of Magnesia 30 Ml Oral.Susp PO DAILY PRN Constipation Mirtazapine 7.5 mg 01/01/21 21:00 01/06/21 20:06 Mirtazapine 7.5 Mg Tablet PO 7.5 mg BEDTIME FOUZIA Administration Nicotine 21 mg 01/02/21 09:00 01/07/21 08:13 Nicotine 21 Mg Patch.Td24 TRANSDERMA 21 mg DAILY FOUZIA Administration Nicotine Polacrilex 4 mg 01/01/21 18:59 01/06/21 10:00 Nicotine Polacrilex 2 Mg Gum BUCCAL 4 mg Q2H PRN Administration Nicotine Cravings Pharmacy Consult 1 each 01/01/21 18:59 Consult Rx Perform Med Rec MISCELLANE ONCE PRN Consult order Prazosin HCl 1 mg 01/01/21 21:00 01/06/21 20:06 Prazosin Hcl 1 Mg Capsule PO 1 mg BEDTIME FOUZIA Administration Protocol Trazodone HCl 150 mg 01/01/21 21:00 01/06/21 20:05 Trazodone Hcl 50 Mg Tablet PO 150 mg BEDTIME FOUZIA Administration Allergies Allergies Allergy/AdvReac Type Severity Reaction Status Date / Time No Known Allergies Allergy Verified 12/28/20 21:57 [No Known Allergies*] Assessment & Plan Assessment & Plan (1) Hepatitis C antibody positive in blood: Status: Acute Code(s): R76.8 - Other specified abnormal immunological findings in serum Assessment and Plan: Hopefully,just antibody positive and not reinfection Suggest Check HIV Check Hepatitis C viral load and treat if positive I can follow as outpatient if needed [phone] (2) MDD (major depressive disorder), recurrent episode, severe: Status: Chronic Code(s): F33.2 - Major depressive disorder, recurrent severe without psychotic features (3) Chronic post-traumatic stress disorder (PTSD): Status: Chronic Code(s): F43.12 - Post-traumatic stress disorder, chronic (4) Alcohol dependence: Status: Acute Code(s): F10.20 - Alcohol dependence, uncomplicated (5) Cocaine abuse: Status: Acute Code(s): F14.10 - Cocaine abuse, uncomplicated (6) Opioid use disorder: Status: Chronic Code(s): F11.99 - Opioid use, unspecified with unspecified opioid-induced disorder (7) Suicide attempt: Status: Acute Code(s): T14.91XA - Suicide attempt, initial encounter Greater than 50% of the session was spent on counseling and/or coordination of care Reason for contiued inpatient stay Substantial Risk for: other
[2021-01-07] MEDS: Clotrimazole 1 % Cream 15 GM TUBE 1 APPL TOPICAL ×2 (10:23→20:16)
[2021-01-07] MEDS: LORazepam 1 MG TABLET PO ×3 (11:17→15:52)
[2021-01-07 16:00] VITALS: BP 126/93; PULSE 82; TEMP 36.2; O2SAT 96
[2021-01-07 18:00] VITALS: BP 126/93; PULSE 82
[2021-01-07 20:12] VITALS: BP 126/93; PULSE 82
[2021-01-07] MEDS: traZODone HCL 50 MG TABLET 150 MG PO (20:12)
[2021-01-07] MEDS: Prazosin HCL 1 MG CAPSULE PO (20:12)
[2021-01-07] MEDS: hydrOXYzine HCL 50 MG TABLET PO (20:12)
[2021-01-07] MEDS: Mirtazapine 7.5 MG TABLET PO (20:13)
[2021-01-07] MEDS: QUEtiapine Fumarate 25 MG TABLET PO (21:26)
[2021-01-08 06:00] VITALS: BP 100/56; PULSE 63; TEMP 36.2; O2SAT 95
[2021-01-08] MEDS: Nicotine 21 MG PATCH.TD24 TRANSDERMA (08:31)
[2021-01-08] MEDS: Gabapentin 400 MG CAPSULE 800 MG PO ×2 (08:32→13:48)
[2021-01-08] MEDS: buPROPion HCl XL 300 MG TAB.ER.24H PO (08:32)
[2021-01-08] MEDS: Buprenorphine/Naloxone 8/2 mg FILM 2 FILM SUBLINGUAL (08:33)
[2021-01-08] MEDS: Clotrimazole 1 % Cream 15 GM TUBE 1 APPL TOPICAL (08:56)
[2021-01-08] MEDS: QUEtiapine Fumarate 25 MG TABLET PO (10:14)
--- NOTE | 2021-01-08 13:19 | PM.PSYDC ---
DS: Providers Provider Date of Service: 01/08/21 Date of admission: 01/01/21 18:09 Date of discharge: 01/08/21 Primary care physician: Unknown Physician Attending physician on admission: Alexander Rose Consults: 01/05/21 12:24 Consult to Infectious Diseases Routine Consulting Provider: Randi Parra Reason for consultation: hep c Attending physician on discharge: Alexander Rose DS: Diagnosis Discharge Diagnosis (1) MDD (major depressive disorder), recurrent episode, severe: Status: Chronic (2) Chronic post-traumatic stress disorder (PTSD): Status: Chronic (3) Alcohol dependence: Status: Chronic (4) Hepatitis C antibody positive in blood: Status: Chronic (5) Cocaine abuse: Status: Chronic (6) Opioid use disorder: Status: Chronic (7) Suicide attempt: Status: Resolved DS: Medications Discharge Medications Home Medications: Previous Rx's Medication Instructions Recorded buprenorphine 8 mg-naloxone 2 mg 2 film SUBLINGUAL DAILY 4 Days #8 01/08/21 sublingual film (Suboxone) ea bupropion HCl 300 mg 24 hr tablet, 300 mg PO QAM 30 Days #30 tab 01/08/21 extended release (Wellbutrin XL) clotrimazole 1 % topical cream 1 appl TOPICAL BID 7 Days #15 g 01/08/21 gabapentin 800 mg tablet 800 mg PO TID 30 Days #90 tab 01/08/21 hydroxyzine pamoate 50 mg capsule 50 mg PO TID PRN 30 Days #60 cap 01/08/21 mirtazapine 7.5 mg tablet 7.5 mg PO BEDTIME 30 Days #30 tab 01/08/21 nicotine (polacrilex) 2 mg gum 4 mg BUCCAL Q2H PRN 30 Days #100 ea 01/08/21 nicotine 21 mg/24 hr daily 1 patch TRANSDERMAL DAILY PRN 30 01/08/21 transdermal patch Days #28 ea prazosin 1 mg capsule 1 mg PO BEDTIME 30 Days #30 cap 01/08/21 trazodone 150 mg tablet 150 mg PO BEDTIME 30 Days #30 tab 01/08/21 Mental Status Exam Mental Status Exam Narrative: Pt is alert and oriented; behavior is cooperative and calm; dressed in casual cloths with baseball cap and good hygiene; mood is described as good; affect congruent, brighter; eye contact appropriate; Speech normal rate, volume and prosody; no psychomotor retardation present; thought process is organized, linear, logical and goal directed. Thought content is on treatment and starting a new program; otherwise TC relevant to pertinent topics and without any delusional content, paranoid ideations or grandiosity; denies any SI/HI. There is no evidence of perceptual disturbance. ?Patients insight and judgment appear intact. Data Data Completed and Pending Completed studies during hospitalization [Text1]: 01/03/21 01/03/21 01/04/21 12:21 12:21 18:21 Chlam trachomat DNA PCR NOT DETECTED Hepatitis C Ab (EIA) Reactive H Hep C Viral Load <15 NOT DETECTED Hep C Viral Load Log <1.18 NOT DETECTED HIV 1&2 Ab/P24 Ag 4thGn Nonreactive N.gonorrhoeae DNA (PCR) NOT DETECTED DS: Summary Hospital Course Hospital Course: Patient is a 50-year-old male with history of alcohol dependence and history of withdrawal seizures, cocaine abuse, depression, Ptsd and anxiety who presents for depression with intentional overdose after taking 20 pills of 300 mg of Welbutrin and also in need of detox from alcohol dependence. Pt was at first treated with activated? charcoal and sent to medical floor for monitoring of QTc, which remained normal, and seizure precaution. He was also treated for alcohol withdrawal with CIWA; he had Pascual due to dehydration and this has resolved with IV fluid. Patient soon stabilized and transfered to psychiatric unit.? Patient patient reported depression but denied any SI saying it had fully resolved. Patient signed a CV on admission. He was still in alcohol withdrawal and treated with Ativan gabapentin taper. Patient's depression began to resolve as his home medications have been restarted. Though frequently keeping to himself, he became more and more social in the milieu and began attending groups. He continued to deny any suicidal or homicidal ideation during admission and demonstrated appropriate behaviors and impulse control on the unit. Patient wanted is hep C status revisited and labs returned with negative viral load. Patient was ambivalent about starting disulfiram; infectious disease consult met with patient and discussed case, and informed both insurance underwriter and patient that his hep C history would not further increase his risk of liver injury should he decide to start disulfiram. Patient ultimately decided it was not ready to start this medication but would follow up with his primary care physician should he change his mind. Social Work was able to find a program, dual diagnosis, for patient to which he was excited about. He anxiety increased as discharge approached and program plans were not yet solidified, however this anxiety resolved once patient was excepted and plan in place. On discharge, patient reported that he was in a good mood, that his depression was nearly fully resolved and he remained without any SI. He had been started on Seroquel 25 mg p.r.n. for anxiety which he found helpful and wanted to continue with. Otherwise he was future oriented and hopeful about staying sober. He was not in imminent risk for harm to self or others and appropriate for discharge. Time spent discussing smoking cessation with patient: 3 to 10 minutes Status at Discharge Functional status at discharge: independent ambulation Overall status at discharge: patient is back to baseline Time Spent with Patient Time attestation: Total time spent providing and/or coordinating discharge services: Time spent: Less than 30 minutes Discharge Plan Discharge Patient Disposition: Xfer [facility] Discharge Diagnosis: MDD, recurrent, severe in partial remission; no psychosis Referrals: [facility] [Other] - 01/12/21 1:00 pm (Appointment is scheduled for 1:00pm on Friday01/12/21.) [facility] [Other] - 1 Week (Referral for therapy and psychiatry was placed on on 01/08/21. Will follow up with appointment. ) [facility] [Other] - 1 Week (Discharge to [facility] ) [facility] [Other] - 1 Week (Follow up with PCP to make appointment. ) Caitlyn Greenberg, [employer] [Nurse Practitioner] - 1 Week (FAX [phone]. PT ATTENDING A F/U PROGRAM. PCP TO CALL PT) Physician,Unknown [Primary Care Provider] - 1 Week Discharge Medications: New clotrimazole 1 % Cream 1 appl topical BID 7 Days Qty: 15 RF: 0 quetiapine [Seroquel] 25 mg tablet 25 mg PO TID 30 Days Qty: 90 RF: 0 Continued nicotine (polacrilex) 2 mg Gum 4 mg buccal Q2H PRN (Reason: Nicotine Cravings) 30 Days Qty: 100 RF: 0 prazosin 1 mg Capsule 1 mg PO BEDTIME 30 Days Qty: 30 RF: 1 hydroxyzine pamoate 50 mg capsule 50 mg PO TID PRN (Reason: anxiety) 30 Days Qty: 60 RF: 1 gabapentin 800 mg tablet 800 mg PO TID 30 Days Qty: 90 RF: 0 trazodone 150 mg tablet 150 mg PO BEDTIME 30 Days Qty: 30 RF: 1 bupropion HCl [Wellbutrin XL] 300 mg tablet extended release 24 hr 300 mg PO QAM 30 Days Qty: 30 RF: 1 mirtazapine 7.5 mg Tablet 7.5 mg PO BEDTIME 30 Days Qty: 30 RF: 1 buprenorphine-naloxone [Suboxone] 8-2 mg film 2 film sublingual DAILY 4 Days Qty: 8 RF: 0 Changed nicotine 21 mg/24 hr Patch 24 Hour 1 patch TRANSDERMAL DAILY PRN (Reason: smoking cessation) 30 Days Qty: 28 RF: 0 Discharge Orders: Discharge Order (Routine); Ordered 01/01/21 Ordered By: Alexander Rose Diet: regular diet Activity on Discharge: As tolerated Stand Alone Forms: Patient Portal Discharge page, Community Support Care Plan Goals: Maintain mood and safe behaviors Take medications as prescribed Continue to pursue sobriety Practice coping skills Continue with outpatient providers and reach out to them as needed Health Concerns: Mood instability and behaviors Sobriety Plan of Treatment: Follow up with your PCP and psychiatric provider regarding above concerns Take medications as prescribed Assessment: Risk assessment at time of discharge:? Patient was interviewed prior to discharge and found to be fully oriented and without any SI or HI. Patient has insight and demonstrates good judgment in terms of wanting to pursue treatment. Patient is not in imminent risk of harm to self or others and has a safety plan that includes presenting to the closest ER or calling 911 if feeling unsafe.? Patient has been observed closely by nursing and unit staff throughout admission; patient has not engaged in any behaviors that suggest dangerousness to self or others and has demonstrated appropriate behaviors and impulse control
[2021-01-08] MEDS: Naloxone HCl Nasal TAKE HOME 4 MG SPRAY NOSTRILALT (13:48)
== END 2021-01-08 14:45 | DRG 751 ==
PROVIDERS: Admitting Provider Psychiatry & Neurology Psychiatry; Visit Provider Psychiatry & Neurology Psychiatry
DX: F33.2 Major depressive disorder, recurrent severe without psychotic features (principal); N17.9 Acute kidney failure, unspecified; F11.20 Opioid dependence, uncomplicated; R45.851 Suicidal ideations; F14.10 Cocaine abuse, uncomplicated; F43.12 Post-traumatic stress disorder, chronic; E86.0 Dehydration; F10.230 Alcohol dependence with withdrawal, uncomplicated; F17.210 Nicotine dependence, cigarettes, uncomplicated; Z71.6 Tobacco abuse counseling; Z91.5 Personal history of self-harm; Z59.0 Homelessness; Z79.899 Other long term (current) drug therapy
CPT/HCPCS: 36415; 86803; 87389; 87491; 87522; 87591

== ENCOUNTER 2021-02-06 20:08 | Inpatient (IN) | payer OTHER, SELFPAY ==
[2021-02-06 20:40] VITALS: BP 169/69; PULSE 82; TEMP 35.8
[2021-02-06] MEDS: LORazepam 1 MG TABLET 2 MG PO (21:52)
[2021-02-06] MEDS: Gabapentin 300 MG CAPSULE PO (21:53)
[2021-02-06] MEDS: traZODone HCL 50 MG TABLET PO (22:42)
--- NOTE | 2021-02-07 01:17 | PC.ADMIT ---
A single male aged 50 years was admitted to [facility] as a CV at 2020 following referral from [facility]. Pt is known to [facility] with previous admissions here, most recently in December. Pt has admissions elsewhere as well. Pt has been homeless, bouncing from place to place and has experienced increased symptoms of depression and alcoholism and helplessness and hopelessness. Pt reported he had been trying to drink less which had made him feel uneasy which in turn caused the urge to end his life. Pt took up to 6000mg of wellbutrin on 02/02 and then sought help at a local emergency room. Pt was given charcoal and monitored. Pt reports he does not have family or friends and pt needs providers in the community. Pt reported upon arrival feeling Etoh w/d symptoms with headache of 8/10 and nausea. Pt was givern ativan 2mg PO ONE and Gabapentin 300mg PO ONE which he reported helped with symptoms. Pt later utilized PRN trazodone for sleep. Pt was irritated about a decrease in suboxone and gabapentin. Pt had difficulty participating in admission due to withdrawal symptoms and mental status. Pt has a history of withdrawal seizures.Pt was placed on 15 minute safety checks and has BID VS. [id number] done, treatment plan initiated and admitting orders obtained.
[2021-02-07 01:43] VITALS: BMI 32.5
[2021-02-07] MEDS: Buprenorphine/Naloxone 8/2 mg TAB.SUBL 1 TAB SUBLINGUAL (08:53)
[2021-02-07] MEDS: LORazepam 1 MG TABLET PO ×5 (08:53→21:06)
[2021-02-07] MEDS: Gabapentin 300 MG CAPSULE PO ×2 (08:53→14:27)
[2021-02-07] MEDS: Buprenorphine/Naloxone 8/2 mg FILM 1 FILM SUBLINGUAL (09:37)
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
[2021-02-07] MEDS: LORazepam 1 MG TABLET 2 MG PO (13:07)
--- NOTE | 2021-02-07 15:35 | P.CNHOSGPS_ITS ---
History of Present Illness Data of Consult Service Date: 02/07/21 Requesting physician: Alexander Rose Primary Care Provider: Unknown Physician HPI Reason for consult: Admission physical This is a 50-year-old male with history of neuropathy, alcohol abuse admitted to inpatient psychiatric for further management of intentional overdose. Medical team was asked to see the patient in consultation for routine medical consult as the patient was transferred from another facility. Patient denies any chest pain, shortness of breath, palpitations. He is tolerating his ordered diet without abdominal pain, nausea, vomiting. He is voiding without issue. Last drink of alcohol was last Friday. He has no specific medical complaints at this time. Review of Systems Review of Systems: Yes all other systems are reviewed and are negative Constitutional: Constitutional: Denies chills and Denies fever(s) Cardiovascular: Cardiovascular: Denies chest pain Respiratory: Respiratory: Denies cough Gastrointestinal: Gastrointestinal: Denies abdominal pain [facility] Medical History Alcohol dependence Anxiety Chronic post-traumatic stress disorder (PTSD) Depression EtOH dependence Hepatitis C antibody positive in blood MDD (major depressive disorder), recurrent episode, severe Functional capacity: independent ambulation Family History Mother Diabetes mellitus Father Leukemia Surgical History History of mandibular surgery Social History Household Members: Unknown / Unable to assess Household Members Other:: People he met in the community Housing: Homeless Housing Other:: Pt recently lost housing. Friend who had lived with him recently . Do you presently have visiting nurse or other home services: No Unable to assess alcohol history related to: Unknown Alcohol intake: current Alcohol intake frequency: 3 or more drinks per day Alcohol type: beer Patient Tobacco Use Status: Current everyday Tobacco user Tobacco use type: Cigarette Cigarette Packs Per Day: 1 Cigarettes Per Day: 20.0 Years Smoked: 10+ Smoked in Last 30 Days: Yes e-Cigarette/Vaping Use: Never Used Patient Interested in Nicotine Replacement: Yes Patient Given Instructions on How to Stop Smoking: Yes Date Education Initiated: 02/06/21 Use of substances other than those prescribed or required for medical reasons: Unknown Substance Use Type: Crack/Cocaine Currently Displaying Signs/Symptoms of Drug Intoxication Withdrawal: No Spiritual Healthcare Practices: unknown Protestant Healthcare Practices: unknown Cultural Healthcare Practices: unknown Advance Directives: No Advance Directives Information Provided: No (declined) Advance Directives on File: No Do you have thoughts of harming others: None Do you have a plan to hurt others: No Plan Nutrition Risks: No Nutritional Risk Poor oral hygiene: No service: No Current occupational status: unemployed Sexual orientation: Straight/Heterosexual Meds Allergies Allergy/AdvReac Type Severity Reaction Status Date / Time No Known Allergies Allergy Verified 12/28/20 21:57 [No Known Allergies*] Active Medications: Current Medications Generic Name Dose Route Start Last Admin Trade Name Freq PRN Reason Stop Dose Admin Acetaminophen 650 mg 02/06/21 21:36 Acetaminophen 325 Mg Tablet PO Q6H PRN Headache/Pain Mild Scale (1-3) Al Hydroxide/Mg Hydroxide 30 ml 02/06/21 21:36 Magnesium Hydrox/Alum Hydrox 30 Ml Oral.Susp PO Q6H PRN Heartburn/Nausea Buprenorphine/Naloxone 2 tab 02/08/21 09:00 Buprenorphine/Naloxone 8/2 Mg Tab.Subl SUBLINGUAL DAILY FOUZIA Gabapentin 300 mg 02/07/21 09:00 02/07/21 14:27 Gabapentin 300 Mg Capsule PO 300 mg TID FOUZIA Administration Lorazepam 1 mg 02/06/21 21:36 Lorazepam 1 Mg Tablet PO Q2H PRN mild to mod alcohol w/drawal Lorazepam 1 mg 02/07/21 21:00 Lorazepam 1 Mg Tablet PO BID FOUZIA Magnesium Hydroxide 30 ml 02/06/21 21:36 Milk Of Magnesia 30 Ml Oral.Susp PO DAILY PRN Constipation Nicotine 21 mg 02/06/21 21:36 Nicotine 21 Mg Patch.Td24 TRANSDERMA DAILY PRN smoking cessation Nicotine Polacrilex 4 mg 02/06/21 21:36 Nicotine Polacrilex Lozenge 4 Mg Lozenge BUCCAL Q2H PRN Nicotine Cravings Trazodone HCl 50 mg 02/06/21 21:36 02/06/21 22:42 Trazodone Hcl 50 Mg Tablet PO 50 mg BEDTIME PRN Administration Insomnia Assessment and Plan (1) Drug overdose: Qualifiers: Encounter type: initial encounter Injury intent: intentional self-harm Qualified Code(s): T50.902A - Poisoning by unspecified drugs, medicaments and biological substances, intentional self-harm, initial encounter Status: Acute This is a 50-year-old male with history of alcohol use disorder, opiate use disorder on Suboxone, neuropathy admitted inpatient psychiatric unit for management of intentional overdose Opiate dependence. Patient is maintained on Suboxone Alcohol use disorder Continue management of alcohol withdrawal per unit protocol Consider supplementation with thiamine and folate If lab work was not done at previous facility would recommend checking chemistries and magnesium tobacco dependence smoking cessation advised NRT Neuropathy continue gabapentin Thank you for us to participate in the care of this patient. There is no acute medical condition at this time. Attending: Dr. fonseca Physical Exam Vital Signs: Last Vital Signs Temp 96.5 F L 02/06/21 20:40 Pulse 82 02/06/21 20:40 BP 169/69 H 02/06/21 20:40 Body Mass Index 32.5 Const Nutritional Appearance: well nourished Orientation/consciousness: patient oriented x3 HENMT Head: Yes normocephalic and Yes atraumatic Eyes Sclerae: sclerae normal Chest Chest palpation & inspection: normal inspection of the chest Resp Effort & Inspection: normal respiratory effort and no respiratory distress Cardio Rate: regular rate Rhythm: regular rhythm GI Palpation (GI): Soft to palpation and nontender Neuro General: patient oriented x3 Cranial nerves: Yes CN's II-XII intact bilaterally and Yes Bilaterally intact EOM present
[2021-02-07] MEDS: Nicotine Polacrilex Lozenge 4 MG LOZENGE BUCCAL ×2 (17:03→19:12)
[2021-02-07 18:00] VITALS: BP 135/80; PULSE 88
[2021-02-07] MEDS: Gabapentin 400 MG CAPSULE 800 MG PO (21:05)
[2021-02-07] MEDS: Prazosin HCL 1 MG CAPSULE PO (21:06)
[2021-02-07] MEDS: Mirtazapine 7.5 MG TABLET PO (21:06)
[2021-02-08] MEDS: Gabapentin 400 MG CAPSULE 800 MG PO ×3 (08:33→20:15)
[2021-02-08] MEDS: Buprenorphine/Naloxone 8/2 mg TAB.SUBL 2 TAB SUBLINGUAL (08:33)
[2021-02-08] MEDS: LORazepam 1 MG TABLET PO ×4 (08:33→20:15)
[2021-02-08] MEDS: buPROPion HCl XL 300 MG TAB.ER.24H PO (08:34)
[2021-02-08 09:00] VITALS: BP 128/81; PULSE 79
[2021-02-08] MEDS: Nicotine Polacrilex Lozenge 4 MG LOZENGE BUCCAL (09:53)
[2021-02-08] MEDS: Nicotine 21 MG PATCH.TD24 TRANSDERMA (11:35)
--- NOTE | 2021-02-08 16:17 | HO.PSYCHPN ---
Subjective Subjective Date of Service: 02/08/21 Reason For Visit: major depressive disorder Subjective Notes: Alfonso Warning and Conditional Voluntary Interim History: pt reports he continues to feel depressed, but SI has resolved. He feels withdrawal is lessening and ativan appropriate. Discussed what his plan will be if he doesn't get into sober housing. Pt agreed that if he ended up in a homeless intermediate he could go to 3 AA meetings a day instead of a program, if he had the will. He said he's working on having hte will . Pt says he's working on having the will. Mental Status Exam Mental Status Exam Narrative: Patient Appearance:?Unkempt Patient Orientation:?Person, Place, Time and Situation Level of Consciousness:?Appropriate Patient Behavior:?Appropriate, Cooperative and Good Eye Contact Mood Description:?Depressed Affect Description:?Depressed Patient Cognition Impaired:?No Ability to Follow Directions:?Good Speech Pattern:?Clear Memory Description:?Intact Hallucinations:?None Delusions:?Not Present Thought Process:?Intact and Linear Thought Content:?positive for Intact Depressive Symptoms:?Increased Anxiety, Insomnia, Loss of Int. in Activity, Feelings of Worthlessness, Hopelessness, Feelings of Guilt, Unhappiness, Increased Fatigue, Thoughts of /Suicide, Low Self Esteem, Loss of Energy and Difficulty Concentrating Abnormal Motor Activity Signs and Symptoms:?Psychomotor Retardation Judgement:?Fair Diagnostics Vital Signs (24Hr): Vital Signs - 24 hr 02/07/21 18:00 02/08/21 09:00 Pulse Rate 88 79 Blood Pressure 135/80 128/81 Body Mass Index 32.5 Medications Medications Current Medications Generic Name Dose Route Start Last Admin Trade Name Nanda PRN Reason Stop Dose Admin Acetaminophen 650 mg 02/06/21 21:36 Acetaminophen 325 Mg Tablet PO Q6H PRN Headache/Pain Mild Scale (1-3) Al Hydroxide/Mg Hydroxide 30 ml 02/06/21 21:36 Magnesium Hydrox/Alum Hydrox 30 Ml Oral.Susp PO Q6H PRN Heartburn/Nausea Buprenorphine/Naloxone 2 tab 02/08/21 09:00 02/08/21 08:33 Buprenorphine/Naloxone 8/2 Mg Tab.Subl SUBLINGUAL 2 tab DAILY FOUZIA Administration Bupropion HCl 300 mg 02/08/21 09:00 02/08/21 08:34 Bupropion Hcl Xl 300 Mg Tab.Er.24h PO 300 mg DAILY FOUZIA Administration Gabapentin 800 mg 02/07/21 21:00 02/08/21 15:17 Gabapentin 400 Mg Capsule PO 800 mg TID FOUZIA Administration Hydroxyzine HCl 50 mg 02/07/21 16:34 Hydroxyzine Hcl 50 Mg Tablet PO TID PRN mild anxiety Lorazepam 1 mg 02/06/21 21:36 02/08/21 12:52 Lorazepam 1 Mg Tablet PO 1 mg Q2H PRN Administration mild to mod alcohol w/drawal Lorazepam 1 mg 02/07/21 21:00 02/08/21 15:17 Lorazepam 1 Mg Tablet PO 1 mg TID FOUZIA Administration Magnesium Hydroxide 30 ml 02/06/21 21:36 Milk Of Magnesia 30 Ml Oral.Susp PO DAILY PRN Constipation Mirtazapine 7.5 mg 02/07/21 21:00 02/07/21 21:06 Mirtazapine 7.5 Mg Tablet PO 7.5 mg BEDTIME FOUZIA Administration Nicotine 21 mg 02/08/21 10:45 02/08/21 11:35 Nicotine 21 Mg Patch.Td24 TRANSDERMA 21 mg DAILY FOUZIA Administration Nicotine Polacrilex 4 mg 02/06/21 21:36 02/08/21 09:53 Nicotine Polacrilex Lozenge 4 Mg Lozenge BUCCAL 4 mg Q2H PRN Administration Nicotine Cravings Prazosin HCl 1 mg 02/07/21 21:00 02/07/21 21:06 Prazosin Hcl 1 Mg Capsule PO 1 mg BEDTIME FOUZIA Administration Protocol Quetiapine Fumarate 25 mg 02/07/21 16:34 Quetiapine Fumarate 25 Mg Tablet PO TID PRN moderate anxiety Trazodone HCl 150 mg 02/07/21 16:34 Trazodone Hcl 50 Mg Tablet PO BEDTIME PRN Insomnia Allergies Allergies Allergy/AdvReac Type Severity Reaction Status Date / Time No Known Allergies Allergy Verified 12/28/20 21:57 [No Known Allergies*] Assessment & Plan Assessment & Plan (1) Drug overdose: Qualifiers: Encounter type: initial encounter Injury intent: intentional self-harm Qualified Code(s): T50.902A - Poisoning by unspecified drugs, medicaments and biological substances, intentional self-harm, initial encounter Status: Acute Code(s): T50.901A - Poisoning by unspecified drugs, medicaments and biological substances, accidental (unintentional), initial encounter Assessment and Plan: IMPRESSION: Patient is a 50-year-old male with history of depression, PTSD alcohol dependence, opioid dependence who presents for suicide attempts are you overdosing on Wellbutrin (took 6000mg) in the face of worsening depression, homelessness and relapse on alcohol. Pt remains with SI and passive wish, but trying find hope.? -wants to continue on home meds -will make ativan taper (already been 5 days since last drink) PLAN: pt on CV Q15 min checks start Ativan taper continue home meds -will continue home dose of Gabapentin; physician underwriter discussed with patient risk of this med including risk of abusing, using with substance abuse, and hx of overdosing in suicide attempt. Pt reports this medication has treated his chronic pain quite well and would like to remain on it; physician underwriter agrees that despite risks of continuing with this med, taking away a medication that treats pain would more likely place him at higher risk for relapse and depression; thus, it's writers opinion that benefit outweighs risk -continue Wellbutrin; despite overdose attempt, pt says this med does well to treat his depression; physician underwriter agrees that again, benefit outweighs risk.? Greater than 50% of the session was spent on counseling and/or coordination of care Reason for contiued inpatient stay Substantial Risk for: rapid decompensation
[2021-02-08 19:57] VITALS: BP 134/92; PULSE 81
[2021-02-08] MEDS: Mirtazapine 7.5 MG TABLET PO (20:15)
[2021-02-08] MEDS: Prazosin HCL 1 MG CAPSULE PO (20:15)
[2021-02-08] MEDS: traZODone HCL 50 MG TABLET 150 MG PO (20:21)
[2021-02-09] MEDS: buPROPion HCl XL 300 MG TAB.ER.24H PO (08:33)
[2021-02-09] MEDS: Buprenorphine/Naloxone 8/2 mg TAB.SUBL 2 TAB SUBLINGUAL (08:33)
[2021-02-09] MEDS: Gabapentin 400 MG CAPSULE 800 MG PO ×3 (08:33→20:21)
[2021-02-09] MEDS: Nicotine 21 MG PATCH.TD24 TRANSDERMA (08:34)
[2021-02-09] MEDS: LORazepam 1 MG TABLET PO ×3 (09:09→20:20)
[2021-02-09] MEDS: QUEtiapine Fumarate 25 MG TABLET PO ×2 (12:50→20:20)
[2021-02-09 14:34] VITALS: BP 130/70; PULSE 80; RESP 16; TEMP 36.6
--- NOTE | 2021-02-09 16:48 | P.PNPSI_ITS ---
Subjective Subjective Date of Service: 02/09/21 Reason For Visit: major depressive disorder Interim History: Patient reports he still feeling depressed; suicidal ideation comes and goes but it is passive without plan or intent. Analyst [employer] broached topic of PTSD in whether it is 1 of the triggering factors in his relapse. Patient said he thinks it probably must be he is unaware of it. Patient did not care to discuss PTSD history further. He says he is still having withdrawal symptoms bu t medication is adequate. Patient agreed to begin attending groups more frequently Mental Status Exam Mental Status Exam Narrative: Patient Appearance:?Unkempt Patient Orientation:?Person, Place, Time and Situation Level of Consciousness:?Appropriate Patient Behavior:?Appropriate, Cooperative and Good Eye Contact Mood Description:?Depressed Affect Description:?Depressed Patient Cognition Impaired:?No Ability to Follow Directions:?Good Speech Pattern:?Clear Memory Description:?Intact Hallucinations:?None Delusions:?Not Present Thought Process:?Intact and Linear Thought Content:?passive SI; no HI Depressive Symptoms:?Increased Anxiety, Insomnia, Loss of Int. in Activity, Feelings of Worthlessness, Hopelessness, Feelings of Guilt, Unhappiness, Increased Fatigue, Thoughts of /Suicide, Low Self Esteem, Loss of Energy and Difficulty Concentrating Abnormal Motor Activity Signs and Symptoms:?Psychomotor Retardation Judgement:?Fair Diagnostics Vital Signs (24Hr): Vital Signs - 24 hr 02/08/21 19:57 02/09/21 14:34 Temperature 98 F Pulse Rate 81 80 Respiratory Rate 16 Blood Pressure 134/92 H 130/70 Body Mass Index 32.5 Medications Medications Current Medications Acetaminophen (Acetaminophen 325 Mg Tablet) 650 mg PO Q6H PRN PRN Reason: Headache/Pain Mild Scale (1-3) Al Hydroxide/Mg Hydroxide (Magnesium Hydrox/Alum Hydrox 30 Ml Oral.Susp) 30 ml PO Q6H PRN PRN Reason: Heartburn/Nausea Buprenorphine/Naloxone (Buprenorphine/Naloxone 8/2 Mg Tab.Subl) 2 tab SUBLINGUAL DAILY [facility] Last Admin: 02/09/21 08:33 Dose: 2 tab Documented by: Bupropion HCl (Bupropion Hcl Xl 300 Mg Tab.Er.24h) 300 mg PO DAILY [facility] Last Admin: 02/09/21 08:33 Dose: 300 mg Documented by: Gabapentin (Gabapentin 400 Mg Capsule) 800 mg PO TID [facility] Last Admin: 02/09/21 14:35 Dose: 800 mg Documented by: Hydroxyzine HCl (Hydroxyzine Hcl 50 Mg Tablet) 50 mg PO TID PRN PRN Reason: mild anxiety Lorazepam (Lorazepam 1 Mg Tablet) 1 mg PO BID FOUZIA Stop: 02/10/21 23:59 Last Admin: 02/09/21 09:09 Dose: 1 mg Documented by: Lorazepam (Lorazepam 1 Mg Tablet) 1 mg PO DAILY FOUZIA Magnesium Hydroxide (Milk Of Magnesia 30 Ml Oral.Susp) 30 ml PO DAILY PRN PRN Reason: Constipation Mirtazapine (Mirtazapine 7.5 Mg Tablet) 7.5 mg PO BEDTIME FOUIZA Last Admin: 02/08/21 20:15 Dose: 7.5 mg Documented by: Nicotine (Nicotine 21 Mg Patch.Td24) 21 mg TRANSDERMA DAILY [facility] Last Admin: 02/09/21 08:34 Dose: 21 mg Documented by: Nicotine Polacrilex (Nicotine Polacrilex Lozenge 4 Mg Lozenge) 4 mg BUCCAL Q2H PRN PRN Reason: Nicotine Cravings Last Admin: 02/08/21 09:53 Dose: 4 mg Documented by: Prazosin HCl (Prazosin Hcl 1 Mg Capsule) 1 mg PO BEDTIME FOUZIA; Protocol Last Admin: 02/08/21 20:15 Dose: 1 mg Documented by: Quetiapine Fumarate (Quetiapine Fumarate 25 Mg Tablet) 25 mg PO TID PRN PRN Reason: moderate anxiety Last Admin: 02/09/21 12:50 Dose: 25 mg Documented by: Trazodone HCl (Trazodone Hcl 50 Mg Tablet) 150 mg PO BEDTIME PRN PRN Reason: Insomnia Last Admin: 02/08/21 20:21 Dose: 150 mg Documented by: Allergies Allergies Allergy/AdvReac Type Severity Reaction Status Date / Time No Known Allergies Allergy Verified 12/28/20 21:57 [No Known Allergies*] Assessment & Plan Assessment & Plan (1) Drug overdose: Qualifiers: Encounter type: initial encounter Injury intent: intentional self-harm Qualified Code(s): T50.902A - Poisoning by unspecified drugs, medicaments and biological substances, intentional self-harm, initial encounter Status: Acute Code(s): T50.901A - Poisoning by unspecified drugs, medicaments and biological substances, accidental (unintentional), initial encounter Assessment and Plan: IMPRESSION: Patient is a 50-year-old male with history of depression, PTSD alcohol dependence, opioid dependence who presents for suicide attempts are you overdosing on Wellbutrin (took 6000mg) in the face of worsening depression, homelessness and relapse on alcohol. Pt remains with SI and passive wish, but trying find hope.? -wants to continue on home meds -will make ativan taper (already been 5 days since last drink) PLAN: pt on CV Q15 min checks INCREASE MIRTAZAPINE TO 15 MG for ongoing depression/anxiety Ativan taper continue home meds -will continue home dose of Gabapentin; technical writer and editor discussed with patient risk of this med including risk of abusing, using with substance abuse, and hx of overdosing in suicide attempt. Pt reports this medication has treated his chronic pain quite well and would like to remain on it; technical writer and editor agrees that despite risks of continuing with this med, taking away a medication that treats pain would more likely place him at higher risk for relapse and depression; thus, it's writers opinion that benefit outweighs risk -continue Wellbutrin; despite overdose attempt, pt says this med does well to treat his depression; technical writer and editor agrees that again, benefit outweighs risk.? Greater than 50% of the session was spent on counseling and/or coordination of care Reason for contiued inpatient stay Substantial Risk for: rapid decompensation
[2021-02-09 18:00] VITALS: BP 150/90; PULSE 75; TEMP 36.4
[2021-02-09 20:20] VITALS: BP 150/90; PULSE 71
[2021-02-09] MEDS: Prazosin HCL 1 MG CAPSULE PO (20:20)
[2021-02-09] MEDS: Mirtazapine 15 MG TABLET PO (20:21)
[2021-02-09] MEDS: traZODone HCL 50 MG TABLET 150 MG PO (20:21)
[2021-02-10] MEDS: Nicotine 21 MG PATCH.TD24 TRANSDERMA (08:40)
[2021-02-10] MEDS: Gabapentin 400 MG CAPSULE 800 MG PO ×3 (08:41→20:29)
[2021-02-10] MEDS: Buprenorphine/Naloxone 8/2 mg TAB.SUBL 2 TAB SUBLINGUAL (08:42)
[2021-02-10] MEDS: buPROPion HCl XL 300 MG TAB.ER.24H PO (08:42)
[2021-02-10] MEDS: LORazepam 1 MG TABLET PO ×2 (08:42→20:30)
--- NOTE | 2021-02-10 09:49 | HO.PSYCHPN ---
Subjective Subjective Date of Service: 02/10/21 Reason For Visit: major depressive disorder Interim History: pt seen on 02/10 pt reports mood is better; SI abating; still with some w/drawal symptoms but thinks they are coming to an end. Pt still hopeful about getting into a CSS/sober living but continues to think of his plan if this does not work out. Patient agreed to increase in Mirtazapine to 15mg for ongoing anxiety/depression. Mental Status Exam Mental Status Exam Narrative: Patient Appearance:?adequate hygiene Patient Orientation:?Person, Place, Time and Situation Level of Consciousness:?Appropriate Patient Behavior:?Appropriate, Cooperative and Good Eye Contact Mood Description:?Depressed, but improving Affect Description:?Depressed Patient Cognition Impaired:?No Ability to Follow Directions:?Good Speech Pattern:?Clear Memory Description:?Intact Hallucinations:?None Delusions:?Not Present Thought Process:?Intact and Linear Thought Content:?No SI or HI Abnormal Motor Activity Signs and Symptoms:?Psychomotor Retardation, but less Judgement:?Fair Diagnostics Vital Signs (24Hr): Vital Signs - 24 hr 02/09/21 14:34 02/09/21 18:00 02/09/21 20:20 Temperature 98 F 97.6 F Pulse Rate 80 75 71 Respiratory Rate 16 Blood Pressure 130/70 150/90 H 150/90 H Body Mass Index 32.5 Medications Medications Current Medications Acetaminophen (Acetaminophen 325 Mg Tablet) 650 mg PO Q6H PRN PRN Reason: Headache/Pain Mild Scale (1-3) Al Hydroxide/Mg Hydroxide (Magnesium Hydrox/Alum Hydrox 30 Ml Oral.Susp) 30 ml PO Q6H PRN PRN Reason: Heartburn/Nausea Buprenorphine/Naloxone (Buprenorphine/Naloxone 8/2 Mg Tab.Subl) 2 tab SUBLINGUAL DAILY [facility] Last Admin: 02/10/21 08:42 Dose: 2 tab Documented by: Bupropion HCl (Bupropion Hcl Xl 300 Mg Tab.Er.24h) 300 mg PO DAILY [facility] Last Admin: 02/10/21 08:42 Dose: 300 mg Documented by: Gabapentin (Gabapentin 400 Mg Capsule) 800 mg PO TID [facility] Last Admin: 02/10/21 08:41 Dose: 800 mg Documented by: Hydroxyzine HCl (Hydroxyzine Hcl 50 Mg Tablet) 50 mg PO TID PRN PRN Reason: mild anxiety Lorazepam (Lorazepam 1 Mg Tablet) 1 mg PO BID [facility] Stop: 02/10/21 23:59 Last Admin: 02/10/21 08:42 Dose: 1 mg Documented by: Lorazepam (Lorazepam 1 Mg Tablet) 1 mg PO DAILY [facility] Magnesium Hydroxide (Milk Of Magnesia 30 Ml Oral.Susp) 30 ml PO DAILY PRN PRN Reason: Constipation Mirtazapine (Mirtazapine 15 Mg Tablet) 15 mg PO BEDTIME [facility] Last Admin: 02/09/21 20:21 Dose: 15 mg Documented by: Nicotine (Nicotine 21 Mg Patch.Td24) 21 mg TRANSDERMA DAILY [facility] Last Admin: 02/10/21 08:40 Dose: 21 mg Documented by: Nicotine Polacrilex (Nicotine Polacrilex Lozenge 4 Mg Lozenge) 4 mg BUCCAL Q2H PRN PRN Reason: Nicotine Cravings Last Admin: 02/08/21 09:53 Dose: 4 mg Documented by: Prazosin HCl (Prazosin Hcl 1 Mg Capsule) 1 mg PO BEDTIME FOUZIA; Protocol Last Admin: 02/09/21 20:20 Dose: 1 mg Documented by: Quetiapine Fumarate (Quetiapine Fumarate 25 Mg Tablet) 25 mg PO TID PRN PRN Reason: moderate anxiety Last Admin: 02/09/21 20:20 Dose: 25 mg Documented by: Trazodone HCl (Trazodone Hcl 50 Mg Tablet) 150 mg PO BEDTIME PRN PRN Reason: Insomnia Last Admin: 02/09/21 20:21 Dose: 150 mg Documented by: Allergies Allergies Allergy/AdvReac Type Severity Reaction Status Date / Time No Known Allergies Allergy Verified 12/28/20 21:57 [No Known Allergies*] Assessment & Plan Assessment & Plan (1) Drug overdose: Qualifiers: Encounter type: initial encounter Injury intent: intentional self-harm Qualified Code(s): T50.902A - Poisoning by unspecified drugs, medicaments and biological substances, intentional self-harm, initial encounter Status: Acute Code(s): T50.901A - Poisoning by unspecified drugs, medicaments and biological substances, accidental (unintentional), initial encounter Assessment and Plan: IMPRESSION: Patient is a 50-year-old male with history of depression, PTSD alcohol dependence, opioid dependence who presents for suicide attempts are you overdosing on Wellbutrin (took 6000mg) in the face of worsening depression, homelessness and relapse on alcohol. Pt remains with SI and passive wish, but trying find hope.? -wants to continue on home meds ativan taper PLAN: pt on CV Q15 min checks MIRTAZAPINE TO 15 MG for ongoing depression/anxiety Ativan taper continue home meds -will continue home dose of Gabapentin; telegraphic typewriter installer discussed with patient risk of this med including risk of abusing, using with substance abuse, and hx of overdosing in suicide attempt. Pt reports this medication has treated his chronic pain quite well and would like to remain on it; telegraphic typewriter installer agrees that despite risks of continuing with this med, taking away a medication that treats pain would more likely place him at higher risk for relapse and depression; thus, it's writers opinion that benefit outweighs risk -continue Wellbutrin; despite overdose attempt, pt says this med does well to treat his depression; telegraphic typewriter installer agrees that again, benefit outweighs risk.? Greater than 50% of the session was spent on counseling and/or coordination of care Reason for contiued inpatient stay Substantial Risk for: med/psych decompensation
[2021-02-10 20:25] VITALS: BP 155/77; PULSE 73; TEMP 36.1
[2021-02-10] MEDS: QUEtiapine Fumarate 25 MG TABLET PO (20:29)
[2021-02-10 20:30] VITALS: BP 155/77; PULSE 73
[2021-02-10] MEDS: traZODone HCL 50 MG TABLET 150 MG PO (20:30)
[2021-02-10] MEDS: Prazosin HCL 1 MG CAPSULE PO (20:30)
[2021-02-10] MEDS: Mirtazapine 15 MG TABLET PO (20:31)
[2021-02-11 06:00] VITALS: BP 117/58; PULSE 57; TEMP 36.4
[2021-02-11] MEDS: LORazepam 1 MG TABLET PO ×2 (08:29→21:28)
[2021-02-11] MEDS: buPROPion HCl XL 300 MG TAB.ER.24H PO (08:29)
[2021-02-11] MEDS: Buprenorphine/Naloxone 8/2 mg TAB.SUBL 2 TAB SUBLINGUAL (08:29)
[2021-02-11] MEDS: Gabapentin 400 MG CAPSULE 800 MG PO ×3 (08:29→20:53)
[2021-02-11] MEDS: Nicotine 21 MG PATCH.TD24 TRANSDERMA (08:35)
[2021-02-11] MEDS: Prazosin HCL 1 MG CAPSULE PO (20:52)
[2021-02-11] MEDS: Mirtazapine 15 MG TABLET PO (20:52)
[2021-02-11] MEDS: QUEtiapine Fumarate 25 MG TABLET PO (20:53)
[2021-02-11] MEDS: traZODone HCL 50 MG TABLET 150 MG PO (20:59)
--- NOTE | 2021-02-11 23:54 | P.PNPSI_ITS ---
Subjective Subjective Date of Service: 02/11/21 Reason For Visit: major depressive disorder Interim History: pt seen on 02/11 Patient reports that he is doing ?okay ?and that depression is better and anxiety under control. He still hopeful to get into a [facility] program. He does continue to worry about relapse and is considering his level of will to maintain his sobriety even if he ends up homeless and in a care home. Stock Sheets Cleaner Inspector asked patient about conflict he had with roommate however patient said that is now resolved that it was no big deal. He did not discuss it further. Mental Status Exam Mental Status Exam Narrative: Patient Appearance:?adequate hygiene Patient Orientation:?Person, Place, Time and Situation Level of Consciousness:?Appropriate Patient Behavior:?Appropriate, Cooperative and Good Eye Contact Mood Description:?Ok Affect Description:?congruent Patient Cognition Impaired:?No Ability to Follow Directions:?Good Speech Pattern:?Clear Memory Description:?Intact Hallucinations:?None Delusions:?Not Present Thought Process:?Intact and Linear Thought Content:?No SI or HI Abnormal Motor Activity Signs and Symptoms:?some Psychomotor Retardation, but less Judgement:?Fair Diagnostics Vital Signs (24Hr): Body Mass Index 32.5 Medications Medications Current Medications Acetaminophen (Acetaminophen 325 Mg Tablet) 650 mg PO Q6H PRN PRN Reason: Headache/Pain Mild Scale (1-3) Al Hydroxide/Mg Hydroxide (Magnesium Hydrox/Alum Hydrox 30 Ml Oral.Susp) 30 ml PO Q6H PRN PRN Reason: Heartburn/Nausea Buprenorphine/Naloxone (Buprenorphine/Naloxone 8/2 Mg Tab.Subl) 2 tab SUBLINGUAL DAILY [facility] Last Admin: 02/11/21 08:29 Dose: 2 tab Documented by: Bupropion HCl (Bupropion Hcl Xl 300 Mg Tab.Er.24h) 300 mg PO DAILY [facility] Last Admin: 02/11/21 08:29 Dose: 300 mg Documented by: Gabapentin (Gabapentin 400 Mg Capsule) 800 mg PO TID [facility] Last Admin: 02/11/21 20:53 Dose: 800 mg Documented by: Hydroxyzine HCl (Hydroxyzine Hcl 50 Mg Tablet) 50 mg PO TID PRN PRN Reason: mild anxiety Lorazepam (Lorazepam 1 Mg Tablet) 1 mg PO DAILY [facility] Last Admin: 02/11/21 08:29 Dose: 1 mg Documented by: Magnesium Hydroxide (Milk Of Magnesia 30 Ml Oral.Susp) 30 ml PO DAILY PRN PRN Reason: Constipation Mirtazapine (Mirtazapine 15 Mg Tablet) 15 mg PO BEDTIME [facility] Last Admin: 02/11/21 20:52 Dose: 15 mg Documented by: Nicotine (Nicotine 21 Mg Patch.Td24) 21 mg TRANSDERMA DAILY [facility] Last Admin: 02/11/21 08:35 Dose: 21 mg Documented by: Nicotine Polacrilex (Nicotine Polacrilex Lozenge 4 Mg Lozenge) 4 mg BUCCAL Q2H PRN PRN Reason: Nicotine Cravings Last Admin: 02/08/21 09:53 Dose: 4 mg Documented by: Prazosin HCl (Prazosin Hcl 1 Mg Capsule) 1 mg PO BEDTIME [facility]; Protocol Last Admin: 02/11/21 20:52 Dose: 1 mg Documented by: Quetiapine Fumarate (Quetiapine Fumarate 25 Mg Tablet) 25 mg PO TID PRN PRN Reason: moderate anxiety Last Admin: 02/11/21 20:53 Dose: 25 mg Documented by: Trazodone HCl (Trazodone Hcl 50 Mg Tablet) 150 mg PO BEDTIME PRN PRN Reason: Insomnia Last Admin: 02/11/21 20:59 Dose: 150 mg Documented by: Allergies Allergies Allergy/AdvReac Type Severity Reaction Status Date / Time No Known Allergies Allergy Verified 12/28/20 21:57 [No Known Allergies*] Assessment & Plan Assessment & Plan (1) Drug overdose: Qualifiers: Encounter type: initial encounter Injury intent: intentional self-harm Qualified Code(s): T50.902A - Poisoning by unspecified drugs, medicaments and biological substances, intentional self-harm, initial encounter Status: Acute Code(s): T50.901A - Poisoning by unspecified drugs, medicaments and biological substances, accidental (unintentional), initial encounter Assessment and Plan: IMPRESSION: Patient is a 50-year-old male with history of depression, PTSD alcohol dependence, opioid dependence who presents for suicide attempts are you overdosing on Wellbutrin (took 6000mg) in the face of worsening depression, homelessness and relapse on alcohol. Pt remains with SI and passive wish, but trying find hope.? -wants to continue on home meds -will make ativan taper (already been 5 days since last drink) PLAN: pt on CV Q15 min checks INCREASE MIRTAZAPINE TO 15 MG for ongoing depression/anxiety Ativan taper continue home meds -will continue home dose of Gabapentin; video game script writer discussed with patient risk of this med including risk of abusing, using with substance abuse, and hx of overdosing in suicide attempt. Pt reports this medication has treated his ch ronic pain quite well and would like to remain on it; video game script writer agrees that despite risks of continuing with this med, taking away a medication that treats pain would more likely place him at higher risk for relapse and depression; thus, it's writers opinion that benefit outweighs risk -continue Wellbutrin; despite overdose attempt, pt says this med does well to treat his depression; video game script writer agrees that again, benefit outweighs risk.? Greater than 50% of the session was spent on counseling and/or coordination of care Reason for contiued inpatient stay Substantial Risk for: other
[2021-02-12 08:11] VITALS: BP 117/58; PULSE 57; TEMP 36.4
[2021-02-12] MEDS: Buprenorphine/Naloxone 8/2 mg TAB.SUBL 2 TAB SUBLINGUAL (08:52)
[2021-02-12] MEDS: buPROPion HCl XL 300 MG TAB.ER.24H PO (08:52)
[2021-02-12] MEDS: LORazepam 1 MG TABLET PO (08:52)
[2021-02-12] MEDS: Nicotine 21 MG PATCH.TD24 TRANSDERMA (08:52)
[2021-02-12] MEDS: Gabapentin 400 MG CAPSULE 800 MG PO ×3 (08:52→19:59)
[2021-02-12] MEDS: QUEtiapine Fumarate 25 MG TABLET PO ×2 (13:02→20:01)
--- NOTE | 2021-02-12 16:47 | HO.PSYCHPN ---
Subjective Subjective Date of Service: 02/12/21 Reason For Visit: major depressive disorder Interim History: Patient seen on 02/12 Patient expresses more depression today and anxiety. He denies any SI but has worries about aftercare and concern for relapse. He is trying to remain hopeful, but still worries about falling into his pattern again. He also understands that getting into a program is not a guarantee. Patient decided that he would like to start disulfiram, something that he's been considering for the past several months. Lead Section Supervisor reviewed the risks and side effects in extensive detail including products and medications that can trigger her reaction and the dangers of trying to drink on this medication. At last admission Dr. Larsen (sp) consulted who informed engineering writer and pt that even if pt has Hep C it will not increase risk for adverse liver event from being on Disulfiam, something relieving to patient. Patient understands the risks and side effects of taking this medication; when he compares this to continuing to drink alcohol which has several times to lead him to becoming hopeless and attempting suicide, he feels that the risks of not taking it far outweigh the potential side-effect risks of this medication and wants to proceed. Mental Status Exam Mental Status Exam Narrative: Patient Appearance:?adequate hygiene Patient Orientation:?Person, Place, Time and Situation Level of Consciousness:?Appropriate Patient Behavior:?Appropriate, Cooperative and Good Eye Contact Mood Description:?Anxious Affect Description:?congruent Patient Cognition Impaired:?No Ability to Follow Directions:?Good Speech Pattern:?Clear Memory Description:?Intact Hallucinations:?None Delusions:?Not Present Thought Process:?Intact and Linear Thought Content:?No SI or HI Abnormal Motor Activity: none Judgement/insight: intact Diagnostics Vital Signs (24Hr): Vital Signs - 24 hr 02/12/21 08:11 Temperature 97.5 F Pulse Rate 57 Blood Pressure 117/58 L Body Mass Index 32.5 Medications Medications Current Medications Acetaminophen (Acetaminophen 325 Mg Tablet) 650 mg PO Q6H PRN PRN Reason: Headache/Pain Mild Scale (1-3) Al Hydroxide/Mg Hydroxide (Magnesium Hydrox/Alum Hydrox 30 Ml Oral.Susp) 30 ml PO Q6H PRN PRN Reason: Heartburn/Nausea Buprenorphine/Naloxone (Buprenorphine/Naloxone 8/2 Mg Tab.Subl) 2 tab SUBLINGUAL DAILY [facility] Last Admin: 02/12/21 08:52 Dose: 2 tab Documented by: Bupropion HCl (Bupropion Hcl Xl 300 Mg Tab.Er.24h) 300 mg PO DAILY [facility] Last Admin: 02/12/21 08:52 Dose: 300 mg Documented by: Gabapentin (Gabapentin 400 Mg Capsule) 800 mg PO TID [facility] Last Admin: 02/12/21 14:37 Dose: 800 mg Documented by: Hydroxyzine HCl (Hydroxyzine Hcl 50 Mg Tablet) 50 mg PO TID PRN PRN Reason: mild anxiety Lorazepam (Lorazepam 1 Mg Tablet) 1 mg PO DAILY [facility] Last Admin: 02/12/21 08:52 Dose: 1 mg Documented by: Magnesium Hydroxide (Milk Of Magnesia 30 Ml Oral.Susp) 30 ml PO DAILY PRN PRN Reason: Constipation Mirtazapine (Mirtazapine 15 Mg Tablet) 15 mg PO BEDTIME [facility] Last Admin: 02/11/21 20:52 Dose: 15 mg Documented by: Nicotine (Nicotine 21 Mg Patch.Td24) 21 mg TRANSDERMA DAILY [facility] Last Admin: 02/12/21 08:52 Dose: 21 mg Documented by: Nicotine Polacrilex (Nicotine Polacrilex Lozenge 4 Mg Lozenge) 4 mg BUCCAL Q2H PRN PRN Reason: Nicotine Cravings Last Admin: 02/08/21 09:53 Dose: 4 mg Documented by: Prazosin HCl (Prazosin Hcl 1 Mg Capsule) 1 mg PO BEDTIME [facility]; Protocol Last Admin: 02/11/21 20:52 Dose: 1 mg Documented by: Quetiapine Fumarate (Quetiapine Fumarate 25 Mg Tablet) 25 mg PO TID PRN PRN Reason: moderate anxiety Last Admin: 02/12/21 13:02 Dose: 25 mg Documented by: Trazodone HCl (Trazodone Hcl 50 Mg Tablet) 150 mg PO BEDTIME PRN PRN Reason: Insomnia Last Admin: 02/11/21 20:59 Dose: 150 mg Documented by: Allergies Allergies Allergy/AdvReac Type Severity Reaction Status Date / Time No Known Allergies Allergy Verified 12/28/20 21:57 [No Known Allergies*] Assessment & Plan Assessment & Plan (1) Drug overdose: Qualifiers: Encounter type: initial encounter Injury intent: intentional self-harm Qualified Code(s): T50.902A - Poisoning by unspecified drugs, medicaments and biological substances, intentional self-harm, initial encounter Status: Acute Code(s): T50.901A - Poisoning by unspecified drugs, medicaments and biological substances, accidental (unintentional), initial encounter Assessment and Plan: IMPRESSION: Patient is a 50-year-old male with history of depression, PTSD alcohol dependence, opioid dependence who presents for suicide attempts are you overdosing on Wellbutrin (took 6000mg) in the face of worsening depression, homelessness and relapse on alcohol. Pt remains with SI and passive wish, but trying find hope.? -wants to continue on home meds agreed to increase Mirtazapine to 15mg Disulfiram: Pt has been contemplating starting disulfiram for several months over past admissions Patient decided that he would like to start disulfiram, something that he's been considering for the past several months. Lead Section Supervisor reviewed the risks and side effects in extensive detail including products and medications that can trigger her reaction and the dangers of trying to drink on this medication. At last admission Dr. Larsen (sp) consulted who informed engineering writer and pt that even if pt has Hep C it will not increase risk for adverse liver event from being on Disulfiam, something relieving to patient. Patient understands the risks and side effects of taking this medication; when he compares this to continuing to drink alcohol which has several times to lead him to becoming hopeless and attempting suicide, he feels that the risks of not taking it far outweigh the potential side-effect risks of this medication and wants to proceed. Pt understands that this medication requires follow up and that given that dispo plan is still tentative, there is concern about patients access to outpt provider who can monitor patient on this med and assess follow up labs. Patient feels that despite this potential, he is too vulnerable to alcohol relapse without this medication and wants to continue with this medication. Lead Section Supervisor, while also concerned with follow up, agrees with patients concern about his vulnerability to relapse, especially since he only seems to develop SI and attempt suicide in context relapse. Patient has approached this decision judiciously; Given that patient has good insight regarding his healthcare and while sober is capable of following through with treatment, it is writers opinion that the potential benefit of starting disulfiram in this context outweighs the risk. PLAN: pt on CV Q15 min checks Start disulfiram 250mg and check LFT's MIRTAZAPINE TO 15 MG for ongoing depression/anxiety Ativan taper continue home meds -will continue home dose of Gabapentin; engineering writer discussed with patient risk of this med including risk of abusing, using with substance abuse, and hx of overdosing in suicide attempt. Pt reports this medication has treated his chronic pain quite well and would like to remain on it; engineering writer agrees that despite risks of continuing with this med, taking away a medication that treats pain would more likely place him at higher risk for relapse and depression; thus, it's writers opinion that benefit outweighs risk -continue Wellbutrin; despite overdose attempt, pt says this med does well to treat his depression; engineering writer agrees that again, benefit outweighs risk.? Greater than 50% of the session was spent on counseling and/or coordination of care Reason for contiued inpatient stay Substantial Risk for: med/psych decompensation
[2021-02-12 18:00] VITALS: BP 147/95; PULSE 77; TEMP 36.9
[2021-02-12] MEDS: Mirtazapine 15 MG TABLET PO (19:59)
[2021-02-12] MEDS: traZODone HCL 50 MG TABLET 150 MG PO (19:59)
[2021-02-12] MEDS: Prazosin HCL 1 MG CAPSULE PO (19:59)
[2021-02-13 08:59] VITALS: BP 108/60; PULSE 65; TEMP 36.9
[2021-02-13] MEDS: Nicotine 21 MG PATCH.TD24 TRANSDERMA (09:16)
[2021-02-13] MEDS: Buprenorphine/Naloxone 8/2 mg TAB.SUBL 2 TAB SUBLINGUAL (09:16)
[2021-02-13] MEDS: LORazepam 1 MG TABLET PO (09:16)
[2021-02-13] MEDS: Gabapentin 400 MG CAPSULE 800 MG PO ×3 (09:16→20:16)
[2021-02-13] MEDS: buPROPion HCl XL 300 MG TAB.ER.24H PO (09:16)
[2021-02-13] MEDS: QUEtiapine Fumarate 25 MG TABLET PO ×2 (14:31→20:19)
[2021-02-13] MEDS: hydrOXYzine HCL 50 MG TABLET PO ×2 (14:34→20:19)
--- NOTE | 2021-02-13 16:32 | HO.PSYCHPN ---
Subjective Subjective Date of Service: 02/13/21 Reason For Visit: major depressive disorder Interim History: Patient reports continued anxiety depression that is interfering with sleep. He asks if his Wellbutrin can be increased to which abstract writer agrees. Due to sleep problems, abstract writer agrees to increase prazosin see if that is helpful. Patient continues to deny suicidal ideation however he is anxious about relapse. Today was discovered that pharmacy is currently out of disulfiram and that the medication is on back order, delaying initiating this treatment. Patient was disappointed to hear this news as he was hoping for this medication to help him stay sober. Mental Status Exam Mental Status Exam Narrative: Patient Appearance:?adequate hygiene Patient Orientation:?Person, Place, Time and Situation Level of Consciousness:?Appropriate Patient Behavior:?Appropriate, Cooperative and Good Eye Contact Mood Description:?Anxious; depressed Affect Description:?congruent Patient Cognition Impaired:?No Ability to Follow Directions:?Good Speech Pattern:?Clear Memory Description:?Intact Hallucinations:?None Delusions:?Not Present Thought Process:?Intact and Linear Thought Content:?No SI or HI Abnormal Motor Activity: none Judgement/insight: intact Diagnostics Vital Signs (24Hr): Vital Signs - 24 hr 02/12/21 18:00 02/13/21 08:59 Temperature 98.4 F 98.5 F Pulse Rate 77 65 Blood Pressure 147/95 H 108/60 Body Mass Index 32.5 Medications Medications Current Medications Acetaminophen (Acetaminophen 325 Mg Tablet) 650 mg PO Q6H PRN PRN Reason: Headache/Pain Mild Scale (1-3) Al Hydroxide/Mg Hydroxide (Magnesium Hydrox/Alum Hydrox 30 Ml Oral.Susp) 30 ml PO Q6H PRN PRN Reason: Heartburn/Nausea Buprenorphine/Naloxone (Buprenorphine/Naloxone 8/2 Mg Tab.Subl) 2 tab SUBLINGUAL DAILY [facility] Last Admin: 02/13/21 09:16 Dose: 2 tab Documented by: Bupropion HCl (Bupropion Hcl Xl 300 Mg Tab.Er.24h) 300 mg PO DAILY [facility] Last Admin: 02/13/21 09:16 Dose: 300 mg Documented by: Bupropion HCl (Bupropion Hcl Xl 150 Mg Tab.Er.24h) 150 mg PO DAILY [facility] Gabapentin (Gabapentin 400 Mg Capsule) 800 mg PO TID [facility] Last Admin: 02/13/21 14:31 Dose: 800 mg Documented by: Hydroxyzine HCl (Hydroxyzine Hcl 50 Mg Tablet) 50 mg PO TID PRN PRN Reason: mild anxiety Last Admin: 02/13/21 14:34 Dose: 50 mg Documented by: Lorazepam (Lorazepam 1 Mg Tablet) 1 mg PO DAILY [facility] Last Admin: 02/13/21 09:16 Dose: 1 mg Documented by: Magnesium Hydroxide (Milk Of Magnesia 30 Ml Oral.Susp) 30 ml PO DAILY PRN PRN Reason: Constipation Mirtazapine (Mirtazapine 15 Mg Tablet) 15 mg PO BEDTIME [facility] Last Admin: 02/12/21 19:59 Dose: 15 mg Documented by: Nicotine (Nicotine 21 Mg Patch.Td24) 21 mg TRANSDERMA DAILY [facility] Last Admin: 02/13/21 09:16 Dose: 21 mg Documented by: Nicotine Polacrilex (Nicotine Polacrilex Lozenge 4 Mg Lozenge) 4 mg BUCCAL Q2H PRN PRN Reason: Nicotine Cravings Last Admin: 02/08/21 09:53 Dose: 4 mg Documented by: Prazosin HCl (Prazosin Hcl 1 Mg Capsule) 2 mg PO BEDTIME [facility]; Protocol Quetiapine Fumarate (Quetiapine Fumarate 25 Mg Tablet) 25 mg PO TID PRN PRN Reason: moderate anxiety Last Admin: 02/13/21 14:31 Dose: 25 mg Documented by: Trazodone HCl (Trazodone Hcl 50 Mg Tablet) 150 mg PO BEDTIME PRN PRN Reason: Insomnia Last Admin: 02/12/21 19:59 Dose: 150 mg Documented by: Allergies Allergies Allergy/AdvReac Type Severity Reaction Status Date / Time No Known Allergies Allergy Verified 12/28/20 21:57 [No Known Allergies*] Assessment & Plan Assessment & Plan (1) Drug overdose: Qualifiers: Encounter type: initial encounter Injury intent: intentional self-harm Qualified Code(s): T50.902A - Poisoning by unspecified drugs, medicaments and biological substances, intentional self-harm, initial encounter Status: Acute Code(s): T50.901A - Poisoning by unspecified drugs, medicaments and biological substances, accidental (unintentional), initial encounter Assessment and Plan: IMPRESSION: Patient is a 50-year-old male with history of depression, PTSD alcohol dependence, opioid dependence who presents for suicide attempts are you overdosing on Wellbutrin (took 6000mg) in the face of worsening depression, homelessness and relapse on alcohol. Pt remains with SI and passive wish, but trying find hope.? -wants to continue on home meds -will make ativan taper (already been 5 days since last drink) Patient feels anxious and depressed, though SI remains fully resolved. He is realizing that might be difficult for him to get into a program and he will again be homeless, struggling without additional support to stay sober. He does acknowledge however that he has been to several programs over the past few months and has left after a few weeks specifically to relapse and thus was able to conclude that his sobriety is not dependent on getting into a program but rather dependent on him working a treatment plan. To that and patient wanted to get on to disulfiram to help him stay sober. Today found out that this medication is currently on back order and it is not clear when it will be available. Disulfiram: Pt has been contemplating starting disulfiram for several months over past admissions Patient decided that he would like to start disulfiram, something that he's been considering for the past several months.? Potato Sorter reviewed the risks and side effects in extensive detail including products and medications that can trigger her reaction and the dangers of trying to drink on this medication.? At last admission Dr. Larsen (sp) consulted who informed abstract writer and pt that even if pt has Hep C it will not increase risk for adverse liver event from being on Disulfiam, something relieving to patient.? Patient understands the risks and side effects of taking this medication; when he compares this to continuing to drink alcohol which has several times to lead him to becoming hopeless and attempting suicide, he feels that the risks of not taking it far outweigh the potential side-effect risks of this medication and wants to proceed. Pt understands that this medication requires follow up and that given that dispo plan is still tentative, there is concern about patients access to outpt provider who can monitor patient on this med and assess follow up labs. Patient feels that despite this potential, he is too vulnerable to alcohol relapse without this medication and wants to continue with this medication. Potato Sorter, while also concerned with follow up, agrees with patients concern about his vulnerability to relapse, especially since he only seems to develop SI and attempt suicide in context relapse. Patient has approached this decision judiciously; Given that patient has good insight regarding his healthcare and while sober is capable of following through with treatment, it is writers opinion that the potential benefit of starting disulfiram in this context outweighs the risk. PLAN: pt on CV Q15 min checks START disulfiram 250 mg daily * pharmacy reports this medication is on back order and not currently available Check LFT and ammonia INCREASE Wellbutrin XL to 450 mg daily INCREASED prazosin to 2 mg q.h.s. for continued trouble sleeping due to worries Continue MIRTAZAPINE 15 MG increase for ongoing depression/anxiety Ativan taper complete continue home meds -will continue home dose of Gabapentin; abstract writer discussed with patient risk of this med including risk of abusing, using with substance abuse, and hx of overdosing in suicide attempt. Pt reports this medication has treated his chronic pain quite well and would like to remain on it; abstract writer agrees that despite risks of continuing with this med, taking away a medication that treats pain would more likely place him at higher risk for relapse and depression; thus, it's writers opinion that benefit outweighs risk -continue Wellbutrin; despite overdose attempt, pt says this med does well to treat his depression; abstract writer agrees that again, benefit outweighs risk.? Greater than 50% of the session was spent on counseling and/or coordination of care Reason for contiued inpatient stay Substantial Risk for: rapid decompensation
[2021-02-13 18:00] VITALS: BP 151/72; PULSE 91; TEMP 36.3
[2021-02-13 20:18] VITALS: BP 151/72; PULSE 91
[2021-02-13] MEDS: Prazosin HCL 1 MG CAPSULE 2 MG PO (20:18)
[2021-02-13] MEDS: traZODone HCL 50 MG TABLET 150 MG PO (20:19)
[2021-02-13] MEDS: Mirtazapine 15 MG TABLET PO (20:19)
[2021-02-14 08:55] LABS: Ammonia 30 umol/L (13-55)
[2021-02-14] MEDS: Gabapentin 400 MG CAPSULE 800 MG PO ×3 (08:56→21:02)
[2021-02-14] MEDS: LORazepam 1 MG TABLET PO (08:56)
[2021-02-14] MEDS: Nicotine 21 MG PATCH.TD24 TRANSDERMA (08:56)
[2021-02-14] MEDS: buPROPion HCl XL 300 MG TAB.ER.24H PO (08:56)
[2021-02-14] MEDS: Buprenorphine/Naloxone 8/2 mg TAB.SUBL 2 TAB SUBLINGUAL (08:57)
[2021-02-14] MEDS: buPROPion HCl XL 150 MG TAB.ER.24H PO (08:57)
[2021-02-14 09:39] LABS: Alanine Aminotransferase 39 U/L (0-40); Albumin Level 3.7 g/dL (3.5-5.0); Alkaline Phosphatase 76 U/L (39-117); Aspartate Amino Transferase 17 U/L (5-37); Bilirubin Direct < 0.2 mg/dL (0.0-0.5); Bilirubin Total < 0.2 mg/dL (0.0-1.0); Total Protein 5.8 g/dL (6.5-8.0)
[2021-02-14 09:49] VITALS: BP 135/78; PULSE 87; RESP 18; TEMP 36.4; O2SAT 97
[2021-02-14] MEDS: hydrOXYzine HCL 50 MG TABLET PO ×2 (11:59→21:02)
[2021-02-14] MEDS: QUEtiapine Fumarate 25 MG TABLET PO ×2 (12:00→21:01)
[2021-02-14] MEDS: Nicotine Polacrilex Lozenge 4 MG LOZENGE BUCCAL ×2 (12:01→15:45)
--- NOTE | 2021-02-14 18:05 | HO.PSYCHPN ---
Subjective Subjective Date of Service: 02/14/21 Reason For Visit: major depressive disorder Interim History: pt reports he's feeling better today; less depressed and less anxious. Tolerating increase in wellbutrin. mortgage or loan underwriter discussed disulfiram is not going to be available and though pt dissapointed, accepts this. He's still hoping to get into a program; trying to prepare however should this fall through Mental Status Exam Mental Status Exam Narrative: Patient Appearance:?adequate hygiene Patient Orientation:?Person, Place, Time and Situation Level of Consciousness:?Appropriate Patient Behavior:?Appropriate, Cooperative and Good Eye Contact Mood Description:? better Affect Description:?congruent, brighter Patient Cognition Impaired:?No Ability to Follow Directions:?Good Speech Pattern:?Clear Memory Description:?Intact Hallucinations:?None Delusions:?Not Present Thought Process:?Intact and Linear Thought Content:?No SI or HI Abnormal Motor Activity: none Judgement/insight: intact Diagnostics Vital Signs (24Hr): Vital Signs - 24 hr 02/13/21 20:18 02/14/21 09:49 Temperature 97.6 F Pulse Rate 91 87 Respiratory Rate 18 Blood Pressure 151/72 H 135/78 Pulse Oximetry 97 Body Mass Index 32.5 Labs Labs: Laboratory Results - last 48 hr 02/14/21 02/14/21 08:13 08:13 Total Bilirubin < 0.2 Direct Bilirubin < 0.2 AST 17 D ALT 39 Alkaline Phosphatase 76 D Ammonia 30 Total Protein 5.8 L Albumin 3.7 Medications Medications Current Medications Acetaminophen (Acetaminophen 325 Mg Tablet) 650 mg PO Q6H PRN PRN Reason: Headache/Pain Mild Scale (1-3) Al Hydroxide/Mg Hydroxide (Magnesium Hydrox/Alum Hydrox 30 Ml Oral.Susp) 30 ml PO Q6H PRN PRN Reason: Heartburn/Nausea Buprenorphine/Naloxone (Buprenorphine/Naloxone 8/2 Mg Tab.Subl) 2 tab SUBLINGUAL DAILY [facility] Last Admin: 02/14/21 08:57 Dose: 2 tab Documented by: Bupropion HCl (Bupropion Hcl Xl 300 Mg Tab.Er.24h) 300 mg PO DAILY [facility] Last Admin: 02/14/21 08:56 Dose: 300 mg Documented by: Bupropion HCl (Bupropion Hcl Xl 150 Mg Tab.Er.24h) 150 mg PO DAILY [facility] Last Admin: 02/14/21 08:57 Dose: 150 mg Documented by: Gabapentin (Gabapentin 400 Mg Capsule) 800 mg PO TID [facility] Last Admin: 02/14/21 15:45 Dose: 800 mg Documented by: Hydroxyzine HCl (Hydroxyzine Hcl 50 Mg Tablet) 50 mg PO TID PRN PRN Reason: mild anxiety Last Admin: 02/14/21 11:59 Dose: 50 mg Documented by: Lorazepam (Lorazepam 1 Mg Tablet) 1 mg PO DAILY [facility] Last Admin: 02/14/21 08:56 Dose: 1 mg Documented by: Magnesium Hydroxide (Milk Of Magnesia 30 Ml Oral.Susp) 30 ml PO DAILY PRN PRN Reason: Constipation Mirtazapine (Mirtazapine 15 Mg Tablet) 15 mg PO BEDTIME [facility] Last Admin: 02/13/21 20:19 Dose: 15 mg Documented by: Nicotine (Nicotine 21 Mg Patch.Td24) 21 mg TRANSDERMA DAILY [facility] Last Admin: 02/14/21 08:56 Dose: 21 mg Documented by: Nicotine Polacrilex (Nicotine Polacrilex Lozenge 4 Mg Lozenge) 4 mg BUCCAL Q2H PRN PRN Reason: Nicotine Cravings Last Admin: 02/14/21 15:45 Dose: 4 mg Documented by: Prazosin HCl (Prazosin Hcl 1 Mg Capsule) 2 mg PO BEDTIME [facility]; Protocol Last Admin: 02/13/21 20:18 Dose: 2 mg Documented by: Quetiapine Fumarate (Quetiapine Fumarate 25 Mg Tablet) 25 mg PO TID PRN PRN Reason: moderate anxiety Last Admin: 02/14/21 12:00 Dose: 25 mg Documented by: Trazodone HCl (Trazodone Hcl 50 Mg Tablet) 150 mg PO BEDTIME PRN PRN Reason: Insomnia Last Admin: 02/13/21 20:19 Dose: 150 mg Documented by: Allergies Allergies Allergy/AdvReac Type Severity Reaction Status Date / Time No Known Allergies Allergy Verified 12/28/20 21:57 [No Known Allergies*] Assessment & Plan Assessment & Plan (1) Drug overdose: Qualifiers: Encounter type: initial encounter Injury intent: intentional self-harm Qualified Code(s): T50.902A - Poisoning by unspecified drugs, medicaments and biological substances, intentional self-harm, initial encounter Status: Acute Code(s): T50.901A - Poisoning by unspecified drugs, medicaments and biological substances, accidental (unintentional), initial encounter Assessment and Plan: IMPRESSION: Patient is a 50-year-old male with history of depression, PTSD alcohol dependence, opioid dependence who presents for suicide attempts are you overdosing on Wellbutrin (took 6000mg) in the face of worsening depression, homelessness and relapse on alcohol. Pt remains with SI and passive wish, but trying find hope.? -wants to continue on home meds -will make ativan taper (already been 5 days since last drink) Patient feels anxious and depressed, though SI remains fully resolved. He is realizing that might be difficult for him to get into a program and he will again be homeless, struggling without additional support to stay sober. He does acknowledge however that he has been to several programs over the past few months and has left after a few weeks specifically to relapse and thus was able to conclude that his sobriety is not dependent on getting into a program but rather dependent on him working a treatment plan. To that and patient wanted to get on to disulfiram to help him stay sober. Today found out that this medication is currently on back order and it is not clear when it will be available. Disulfiram: Pt has been contemplating starting disulfiram for several months over past admissions Patient decided that he would like to start disulfiram, something that he's been considering for the past several months.? International Trade Analyst reviewed the risks and side effects in extensive detail including products and medications that can trigger her reaction and the dangers of trying to drink on this medication.? At last admission Dr. Larsen (sp) consulted who informed mortgage or loan underwriter and pt that even if pt has Hep C it will not increase risk for adverse liver event from being on Disulfiam, something relieving to patient.? Patient understands the risks and side effects of taking this medication; when he compares this to continuing to drink alcohol which has several times to lead him to becoming hopeless and attempting suicide, he feels that the risks of not taking it far outweigh the potential side-effect risks of this medication and wants to proceed. Pt understands that this medication requires follow up and that given that dispo plan is still tentative, there is concern about patients access to outpt provider who can monitor patient on this med and assess follow up labs. Patient feels that despite this potential, he is too vulnerable to alcohol relapse without this medication and wants to continue with this medication. International Trade Analyst, while also concerned with follow up, agrees with patients concern about his vulnerability to relapse, especially since he only seems to develop SI and attempt suicide in context relapse. Patient has approached this decision judiciously; Given that patient has good insight regarding his healthcare and while sober is capable of following through with treatment, it is writers opinion that the potential benefit of starting disulfiram in this context outweighs the risk. *unfortunately, disulfiram is scarce nowadays and hospital cannot get hold of any PLAN: pt on CV Q15 min checks [facility] startt disulfiram; on back order and not available anytime soon INCREASEd Wellbutrin XL to 450 mg daily INCREASED prazosin to 2 mg q.h.s. for continued trouble sleeping due to worries Continue MIRTAZAPINE 15 MG increase for ongoing depression/anxiety Ativan taper complete continue home meds -will continue home dose of Gabapentin; mortgage or loan underwriter discussed with patient risk of this med including risk of abusing, using with substance abuse, and hx of overdosing in suicide attempt. Pt reports this medication has treated his chronic pain quite well and would like to remain on it; mortgage or loan underwriter agrees that despite risks of continuing with this med, taking away a medication that treats pain would more likely place him at higher risk for relapse and depression; thus, it's writers opinion that benefit outweighs risk -continue Wellbutrin; despite overdose attempt, pt says this med does well to treat his depression; mortgage or loan underwriter agrees that again, benefit outweighs risk.? Greater than 50% of the session was spent on counseling and/or coordination of care Reason for contiued inpatient stay Substantial Risk for: other (remain for dispo planning)
[2021-02-14 21:00] VITALS: BP 135/72; PULSE 72; TEMP 36.3; O2SAT 96
[2021-02-14 21:02] VITALS: BP 135/72; PULSE 72
[2021-02-14] MEDS: traZODone HCL 50 MG TABLET 150 MG PO (21:02)
[2021-02-14] MEDS: Mirtazapine 15 MG TABLET PO (21:02)
[2021-02-14] MEDS: Prazosin HCL 1 MG CAPSULE 2 MG PO (21:02)
[2021-02-15] MEDS: buPROPion HCl XL 150 MG TAB.ER.24H PO (08:26)
[2021-02-15] MEDS: LORazepam 1 MG TABLET PO (08:26)
[2021-02-15] MEDS: buPROPion HCl XL 300 MG TAB.ER.24H PO (08:26)
[2021-02-15] MEDS: Gabapentin 400 MG CAPSULE 800 MG PO ×3 (08:26→20:22)
[2021-02-15] MEDS: Buprenorphine/Naloxone 8/2 mg TAB.SUBL 2 TAB SUBLINGUAL (08:27)
[2021-02-15] MEDS: Nicotine 21 MG PATCH.TD24 TRANSDERMA (08:28)
[2021-02-15] MEDS: QUEtiapine Fumarate 25 MG TABLET PO ×2 (11:37→20:23)
[2021-02-15] MEDS: hydrOXYzine HCL 50 MG TABLET PO ×2 (11:37→20:22)
--- NOTE | 2021-02-15 14:02 | HO.PSYCHPN ---
Subjective Subjective Date of Service: 02/15/21 Reason For Visit: major depressive disorder Subjective Notes: Alfonso Warning and Conditional Voluntary Healthcare Proxy: No Guardianship: No Medical Problems Affecting Mental Status: No Interim History: Patient seen and discussed with team. Patient evaluated this morning and upon interview he states he is ?doing alright.? Says his sleep is ?hit or miss,? can take ?a few hours to get to sleep,? but then sleeps through the night. Discussed increasing seroquel at bedtime but says ?just keep it the way it is.? [place] ativan helped with sleep but is understanding of the risks with benzodiazepines for AUD. Appetite is good. No questions or concerns. In the milieu, patient is safe and appropriate, somewhat isolative in behavior. Denies SI/SIB/HI upon inquiry. Denies irritability or assaultive ideation. Says he feels safe. Medication Compliance: Yes Side effects from medications: No Attending Groups: Intermittent Review of Systems Acute medical concerns: No Medical Review of Systems: unchanged Mental Status Exam Mental Status Exam Narrative: Patient Appearance:?adequate hygiene Patient Orientation:?Person, Place, Time and Situation Level of Consciousness:?Appropriate Patient Behavior:?Appropriate, Cooperative and Good Eye Contact Mood Description:? okay Affect Description:?congruent, brighter Patient Cognition Impaired:?No Ability to Follow Directions:?Good Speech Pattern:?Clear Memory Description:?Intact Hallucinations:?None Delusions:?Not Present Thought Process:?Intact and Linear Thought Content:?No SI or HI Abnormal Motor Activity: none Judgement/insight: intact Diagnostics Vital Signs (24Hr): Vital Signs - 24 hr 02/14/21 21:00 02/14/21 21:02 Temperature 97.3 F Pulse Rate 72 72 Blood Pressure 135/72 135/72 Pulse Oximetry 96 Body Mass Index 32.5 Labs Labs: Laboratory Results - last 48 hr 02/14/21 02/14/21 08:13 08:13 Total Bilirubin < 0.2 Direct Bilirubin < 0.2 AST 17 D ALT 39 Alkaline Phosphatase 76 D Ammonia 30 Total Protein 5.8 L Albumin 3.7 Medications Medications Current Medications Acetaminophen (Acetaminophen 325 Mg Tablet) 650 mg PO Q6H PRN PRN Reason: Headache/Pain Mild Scale (1-3) Al Hydroxide/Mg Hydroxide (Magnesium Hydrox/Alum Hydrox 30 Ml Oral.Susp) 30 ml PO Q6H PRN PRN Reason: Heartburn/Nausea Buprenorphine/Naloxone (Buprenorphine/Naloxone 8/2 Mg Tab.Subl) 2 tab SUBLINGUAL DAILY [facility] Last Admin: 02/15/21 08:27 Dose: 2 tab Documented by: Bupropion HCl (Bupropion Hcl Xl 300 Mg Tab.Er.24h) 300 mg PO DAILY [facility] Last Admin: 02/15/21 08:26 Dose: 300 mg Documented by: Bupropion HCl (Bupropion Hcl Xl 150 Mg Tab.Er.24h) 150 mg PO DAILY [facility] Last Admin: 02/15/21 08:26 Dose: 150 mg Documented by: Gabapentin (Gabapentin 400 Mg Capsule) 800 mg PO TID [facility] Last Admin: 02/15/21 08:26 Dose: 800 mg Documented by: Hydroxyzine HCl (Hydroxyzine Hcl 50 Mg Tablet) 50 mg PO TID PRN PRN Reason: mild anxiety Last Admin: 02/15/21 11:37 Dose: 50 mg Documented by: Lorazepam (Lorazepam 1 Mg Tablet) 1 mg PO DAILY [facility] Last Admin: 02/15/21 08:26 Dose: 1 mg Documented by: Magnesium Hydroxide (Milk Of Magnesia 30 Ml Oral.Susp) 30 ml PO DAILY PRN PRN Reason: Constipation Mirtazapine (Mirtazapine 15 Mg Tablet) 15 mg PO BEDTIME [facility] Last Admin: 02/14/21 21:02 Dose: 15 mg Documented by: Nicotine (Nicotine 21 Mg Patch.Td24) 21 mg TRANSDERMA DAILY [facility] Last Admin: 02/15/21 08:28 Dose: 21 mg Documented by: Nicotine Polacrilex (Nicotine Polacrilex Lozenge 4 Mg Lozenge) 4 mg BUCCAL Q2H PRN PRN Reason: Nicotine Cravings Last Admin: 02/14/21 15:45 Dose: 4 mg Documented by: Prazosin HCl (Prazosin Hcl 1 Mg Capsule) 2 mg PO BEDTIME [facility]; Protocol Last Admin: 02/14/21 21:02 Dose: 2 mg Documented by: Quetiapine Fumarate (Quetiapine Fumarate 25 Mg Tablet) 25 mg PO TID PRN PRN Reason: moderate anxiety Last Admin: 02/15/21 11:37 Dose: 25 mg Documented by: Trazodone HCl (Trazodone Hcl 50 Mg Tablet) 150 mg PO BEDTIME PRN PRN Reason: Insomnia Last Admin: 02/14/21 21:02 Dose: 150 mg Documented by: Allergies Allergies Allergy/AdvReac Type Severity Reaction Status Date / Time No Known Allergies Allergy Verified 12/28/20 21:57 [No Known Allergies*] Assessment & Plan Assessment & Plan (1) Drug overdose: Qualifiers: Encounter type: initial encounter Injury intent: intentional self-harm Qualified Code(s): T50.902A - Poisoning by unspecified drugs, medicaments and biological substances, intentional self-harm, initial encounter Status: Acute Code(s): T50.901A - Poisoning by unspecified drugs, medicaments and biological substances, accidental (unintentional), initial encounter Assessment and Plan: IMPRESSION: Patient is a 50-year-old male with history of depression, PTSD alcohol dependence, opioid dependence who presents for suicide attempts are you overdosing on Wellbutrin (took 6000mg) in the face of worsening depression, homelessness and relapse on alcohol. Pt remains with SI and passive wish, but trying find hope.? -wants to continue on home meds -will make ativan taper (already been 5 days since last drink) Patient feels anxious and depressed, though SI remains fully resolved. He is realizing that might be difficult for him to get into a program and he will again be homeless, struggling without additional support to stay sober. He does acknowledge however that he has been to several programs over the past few months and has left after a few weeks specifically to relapse and thus was able to conclude that his sobriety is not dependent on getting into a program but rather dependent on him working a treatment plan. To that and patient wanted to get on to disulfiram to help him stay sober. Today found out that this medication is currently on back order and it is not clear when it will be available. Disulfiram: Pt has been contemplating starting disulfiram for several months over past admissions Patient decided that he would like to start disulfiram, something that he's been considering for the past several months.? Board Stacker reviewed the risks and side effects in extensive detail including products and medications that can trigger her reaction and the dangers of trying to drink on this medication.? At last admission Dr. Larsen (sp) consulted who informed consumer loan underwriter and pt that even if pt has Hep C it will not increase risk for adverse liver event from being on Disulfiam, something relieving to patient.? Patient understands the risks and side effects of taking this medication; when he compares this to continuing to drink alcohol which has several times to lead him to becoming hopeless and attempting suicide, he feels that the risks of not taking it far outweigh the potential side-effect risks of this medication and wants to proceed. Pt understands that this medication requires follow up and that given that dispo plan is still tentative, there is concern about patients access to outpt provider who can monitor patient on this med and assess follow up labs. Patient feels that despite this potential, he is too vulnerable to alcohol relapse without this medication and wants to continue with this medication. Board Stacker, while also concerned with follow up, agrees with patients concern about his vulnerability to relapse, especially since he only seems to develop SI and attempt suicide in context relapse. Patient has approached this decision judiciously; Given that patient has good insight regarding his healthcare and while sober is capable of following through with treatment, it is writers opinion that the potential benefit of starting disulfiram in this context outweighs the risk. *unfortunately, disulfiram is scarce nowadays and hospital cannot get hold of any 02/15: complains of difficulty falling asleep but does not want med changes. Denies benefit on seroquel and vistaril for anxiety in the day, discussed discontinuing to reduce polypharm but he wants to wait on this. Will f/u with primary team tomorrow. PLAN: pt on CV Q15 min checks [facility] startt disulfiram; on back order and not available anytime soon INCREASEd Wellbutrin XL to 450 mg daily INCREASED prazosin to 2 mg q.h.s. for continued trouble sleeping due to worries Continue MIRTAZAPINE 15 MG increase for ongoing depression/anxiety Ativan taper complete continue home meds -will continue home dose of Gabapentin; consumer loan underwriter discussed with patient risk of this med including risk of abusing, using with substance abuse, and hx of overdosing in suicide attempt. Pt reports this medication has treated his chronic pain quite well and would like to remain on it; consumer loan underwriter agrees that despite risks of continuing with this med, taking away a medication that treats pain would more likely place him at higher risk for relapse and depression; thus, it's writers opinion that benefit outweighs risk -continue Wellbutrin; despite overdose attempt, pt says this med does well to treat his depression; consumer loan underwriter agrees that again, benefit outweighs risk.? Greater than 50% of the session was spent on counseling and/or coordination of care Reason for contiued inpatient stay Substantial Risk for: rapid decompensation and med/psych decompensation
[2021-02-15] MEDS: traZODone HCL 50 MG TABLET 150 MG PO (20:22)
[2021-02-15 20:23] VITALS: BP 136/75; PULSE 73
[2021-02-15] MEDS: Prazosin HCL 1 MG CAPSULE 2 MG PO (20:23)
[2021-02-15] MEDS: Mirtazapine 15 MG TABLET PO (20:23)
[2021-02-16 06:00] VITALS: BP 111/60; PULSE 62; RESP 16; TEMP 36.4; O2SAT 95
[2021-02-16] MEDS: Gabapentin 400 MG CAPSULE 800 MG PO ×3 (09:18→19:47)
[2021-02-16] MEDS: Buprenorphine/Naloxone 8/2 mg TAB.SUBL 2 TAB SUBLINGUAL (09:18)
[2021-02-16] MEDS: buPROPion HCl XL 300 MG TAB.ER.24H PO (09:18)
[2021-02-16] MEDS: LORazepam 1 MG TABLET PO (09:19)
[2021-02-16] MEDS: buPROPion HCl XL 150 MG TAB.ER.24H PO (09:19)
[2021-02-16] MEDS: Nicotine 21 MG PATCH.TD24 TRANSDERMA (09:19)
--- NOTE | 2021-02-16 16:00 | P.PNPSI_ITS ---
Subjective Subjective Date of Service: 02/16/21 Reason For Visit: major depressive disorder Interim History: pt seen on 02/16/21 pt reports he's feeling overall better, less depression, less anxiety. He feels that increased wEllbutrin might be helping and he's sleeping better with increased Prazosin. He denies any SI/HI. Discussed waning hope of getting into a program prior to discharge next week and pt said he's preparing to go to jail. His plan remains to attend AA meetings, several, throughout the day. Mental Status Exam Mental Status Exam Narrative: Patient Appearance:?adequate hygiene Patient Orientation:?Person, Place, Time and Situation Level of Consciousness:?Appropriate Patient Behavior:?Appropriate, Cooperative and Good Eye Contact Mood Description:? good Affect Description:?congruent, brighter Patient Cognition Impaired:?No Ability to Follow Directions:?Good Speech Pattern:?Clear Memory Description:?Intact Hallucinations:?None Delusions:?Not Present Thought Process:?Intact and Linear Thought Content:?No SI or HI Abnormal Motor Activity: none Judgement/insight: intact Diagnostics Vital Signs (24Hr): Vital Signs - 24 hr 02/15/21 20:23 02/16/21 06:00 Temperature 97.6 F Pulse Rate 73 62 Respiratory Rate 16 Blood Pressure 136/75 111/60 Pulse Oximetry 95 Body Mass Index 32.5 Medications Medications Current Medications Acetaminophen (Acetaminophen 325 Mg Tablet) 650 mg PO Q6H PRN PRN Reason: Headache/Pain Mild Scale (1-3) Al Hydroxide/Mg Hydroxide (Magnesium Hydrox/Alum Hydrox 30 Ml Oral.Susp) 30 ml PO Q6H PRN PRN Reason: Heartburn/Nausea Buprenorphine/Naloxone (Buprenorphine/Naloxone 8/2 Mg Tab.Subl) 2 tab SUBLINGUAL DAILY [facility] Last Admin: 02/16/21 09:18 Dose: 2 tab Documented by: Bupropion HCl (Bupropion Hcl Xl 300 Mg Tab.Er.24h) 300 mg PO DAILY [facility] Last Admin: 02/16/21 09:18 Dose: 300 mg Documented by: Bupropion HCl (Bupropion Hcl Xl 150 Mg Tab.Er.24h) 150 mg PO DAILY [facility] Last Admin: 02/16/21 09:19 Dose: 150 mg Documented by: Gabapentin (Gabapentin 400 Mg Capsule) 800 mg PO TID [facility] Last Admin: 02/16/21 14:41 Dose: 800 mg Documented by: Hydroxyzine HCl (Hydroxyzine Hcl 50 Mg Tablet) 50 mg PO TID PRN PRN Reason: mild anxiety Last Admin: 02/15/21 20:22 Dose: 50 mg Documented by: Lorazepam (Lorazepam 1 Mg Tablet) 1 mg PO DAILY [facility] Last Admin: 02/16/21 09:19 Dose: 1 mg Documented by: Magnesium Hydroxide (Milk Of Magnesia 30 Ml Oral.Susp) 30 ml PO DAILY PRN PRN Reason: Constipation Mirtazapine (Mirtazapine 15 Mg Tablet) 15 mg PO BEDTIME [facility] Last Admin: 02/15/21 20:23 Dose: 15 mg Documented by: Nicotine (Nicotine 21 Mg Patch.Td24) 21 mg TRANSDERMA DAILY [facility] Last Admin: 02/16/21 09:19 Dose: 21 mg Documented by: Nicotine Polacrilex (Nicotine Polacrilex Lozenge 4 Mg Lozenge) 4 mg BUCCAL Q2H PRN PRN Reason: Nicotine Cravings Last Admin: 02/14/21 15:45 Dose: 4 mg Documented by: Prazosin HCl (Prazosin Hcl 1 Mg Capsule) 2 mg PO BEDTIME [facility]; Protocol Last Admin: 02/15/21 20:23 Dose: 2 mg Documented by: Quetiapine Fumarate (Quetiapine Fumarate 25 Mg Tablet) 25 mg PO TID PRN PRN Reason: moderate anxiety Last Admin: 02/15/21 20:23 Dose: 25 mg Documented by: Trazodone HCl (Trazodone Hcl 50 Mg Tablet) 150 mg PO BEDTIME PRN PRN Reason: Insomnia Last Admin: 02/15/21 20:22 Dose: 150 mg Documented by: Allergies Allergies Allergy/AdvReac Type Severity Reaction Status Date / Time No Known Allergies Allergy Verified 12/28/20 21:57 [No Known Allergies*] Assessment & Plan Assessment & Plan (1) Drug overdose: Qualifiers: Encounter type: initial encounter Injury intent: intentional self-harm Qualified Code(s): T50.902A - Poisoning by unspecified drugs, medicaments and biological substances, intentional self-harm, initial encounter Status: Acute Code(s): T50.901A - Poisoning by unspecified drugs, medicaments and biological substances, accidental (unintentional), initial encounter Assessment and Plan: IMPRESSION: Patient is a 50-year-old male with history of depression, PTSD alcohol dependence, opioid dependence who presents for suicide attempts are you overdosing on Wellbutrin (took 6000mg) in the face of worsening depression, homelessness and relapse on alcohol. Pt remains with SI and passive wish, but trying find hope.? -wants to continue on home meds -will make ativan taper (already been 5 days since last drink) Patient feels anxious and depressed, though SI remains fully resolved. He is realizing that might be difficult for him to get into a program and he will again be homeless, struggling without additional support to stay sober. He does acknowledge however that he has been to several programs over the past few months and has left after a few weeks specifically to relapse and thus was able to conclude that his sobriety is not dependent on getting into a program but rather dependent on him working a treatment plan. To that and patient wanted to get on to disulfiram to help him stay sober. Today found out that this medication is currently on back order and it is not clear when it will be available. Disulfiram: Pt has been contemplating starting disulfiram for several months over past admissions Patient decided that he would like to start disulfiram, something that he's been considering for the past several months.? Patient Safety Manager reviewed the risks and side effects in extensive detail including products and medications that can trigger her reaction and the dangers of trying to drink on this medication.? At last admission Dr. Larsen (sp) consulted who informed health science writer and pt that even if pt has Hep C it will not increase risk for adverse liver event from being on Disulfiam, something relieving to patient.? Patient understands the risks and side effects of taking this medication; when he compares this to continuing to drink alcohol which has several times to lead him to becoming hopeless and attempting suicide, he feels that the risks of not taking it far outweigh the potential side-effect risks of this medication and wants to proceed. Pt understands that this medication requires follow up and that given that dispo plan is still tentative, there is concern about patients access to outpt provider who can monitor patient on this med and assess follow up labs. Patient feels that despite this potential, he is too vulnerable to alcohol relapse without this medication and wants to continue with this medication. Patient Safety Manager, while also concerned with follow up, agrees with patients concern about his vulnerability to relapse, especially since he only seems to develop SI and attempt suicide in context relapse. Patient has approached this decision judiciously; Given that patient has good insight regarding his healthcare and while sober is capable of following through with treatment, it is writers opinion that the potential benefit of starting disulfiram in this context outwe ighs the risk. *unfortunately, disulfiram is scarce nowadays and hospital cannot get hold of any 02/15: complains of difficulty falling asleep but does not want med changes. Denies benefit on seroquel and vistaril for anxiety in the day, discussed discontinuing to reduce polypharm but he wants to wait on this. 02/16: Patient reports doing better, mood better no SI. Mild anxiety but feels it is under control. Sleeping better with increased prazosin PLAN: pt on CV Q15 min checks [facility] startt disulfiram; on back order and not available anytime soon INCREASEd Wellbutrin XL to 450 mg daily INCREASED prazosin to 2 mg q.h.s. for continued trouble sleeping due to worries Continue MIRTAZAPINE 15 MG increase for ongoing depression/anxiety Ativan taper complete continue home meds -will continue home dose of Gabapentin; health science writer discussed with patient risk of this med including risk of abusing, using with substance abuse, and hx of overdosing in suicide attempt. Pt reports this medication has treated his chronic pain quite well and would like to remain on it; health science writer agrees that despite risks of continuing with this med, taking away a medication that treats pain would more likely place him at higher risk for relapse and depression; thus, it's writers opinion that benefit outweighs risk -continue Wellbutrin; despite overdose attempt, pt says this med does well to treat his depression; health science writer agrees that again, benefit outweighs risk.? Greater than 50% of the session was spent on counseling and/or coordination of care Reason for contiued inpatient stay Substantial Risk for: stable for discharge
[2021-02-16 19:47] VITALS: BP 135/70; PULSE 77
[2021-02-16] MEDS: Prazosin HCL 1 MG CAPSULE 2 MG PO (19:47)
[2021-02-16] MEDS: Mirtazapine 15 MG TABLET PO (19:47)
[2021-02-16] MEDS: QUEtiapine Fumarate 25 MG TABLET PO (19:47)
[2021-02-16] MEDS: traZODone HCL 50 MG TABLET 150 MG PO (19:47)
[2021-02-16] MEDS: hydrOXYzine HCL 50 MG TABLET PO (19:47)
[2021-02-17] MEDS: Gabapentin 400 MG CAPSULE 800 MG PO ×3 (08:46→21:12)
[2021-02-17] MEDS: buPROPion HCl XL 150 MG TAB.ER.24H PO (08:46)
[2021-02-17] MEDS: Nicotine 21 MG PATCH.TD24 TRANSDERMA (08:46)
[2021-02-17] MEDS: LORazepam 1 MG TABLET PO (08:46)
[2021-02-17] MEDS: buPROPion HCl XL 300 MG TAB.ER.24H PO (08:46)
[2021-02-17] MEDS: Buprenorphine/Naloxone 8/2 mg TAB.SUBL 2 TAB SUBLINGUAL (08:46)
--- NOTE | 2021-02-17 12:42 | HO.PSYCHPN ---
Subjective Subjective Date of Service: 02/17/21 Reason For Visit: major depressive disorder Interim History: Patient reports that he is doing good. He continues to plan for discharge on Friday and assumes it is unlikely that he will have a program to go to and will end up going to the halfway. He remains focused on attending 3 AA meetings per day while waiting for a bed at a program to open up. He says he is sick of this cycle of relapse and is serious about breaking at this time. Patient is optimistic about staying sober. He still hopes to get into a program but feels that he can stay stable if not. No SI, no HI, tolerating medications well. Sleeping better Mental Status Exam Mental Status Exam Narrative: Patient Appearance:?adequate hygiene Patient Orientation:?Person, Place, Time and Situation Level of Consciousness:?Appropriate Patient Behavior:?Appropriate, Cooperative and Good Eye Contact Mood Description:? good Affect Description:?congruent, brighter Patient Cognition Impaired:?No Ability to Follow Directions:?Good Speech Pattern:?Clear Memory Description:?Intact Hallucinations:?None Delusions:?Not Present Thought Process:?Intact and Linear Thought Content:?No SI or HI Abnormal Motor Activity: none Judgement/insight: intact Diagnostics Vital Signs (24Hr): Vital Signs - 24 hr 02/16/21 19:47 Pulse Rate 77 Blood Pressure 135/70 Body Mass Index 32.5 Medications Medications Current Medications Acetaminophen (Acetaminophen 325 Mg Tablet) 650 mg PO Q6H PRN PRN Reason: Headache/Pain Mild Scale (1-3) Al Hydroxide/Mg Hydroxide (Magnesium Hydrox/Alum Hydrox 30 Ml Oral.Susp) 30 ml PO Q6H PRN PRN Reason: Heartburn/Nausea Buprenorphine/Naloxone (Buprenorphine/Naloxone 8/2 Mg Tab.Subl) 2 tab SUBLINGUAL DAILY [facility] Last Admin: 02/17/21 08:46 Dose: 2 tab Documented by: Bupropion HCl (Bupropion Hcl Xl 300 Mg Tab.Er.24h) 300 mg PO DAILY [facility] Last Admin: 02/17/21 08:46 Dose: 300 mg Documented by: Bupropion HCl (Bupropion Hcl Xl 150 Mg Tab.Er.24h) 150 mg PO DAILY [facility] Last Admin: 02/17/21 08:46 Dose: 150 mg Documented by: Gabapentin (Gabapentin 400 Mg Capsule) 800 mg PO TID [facility] Last Admin: 02/17/21 08:46 Dose: 800 mg Documented by: Hydroxyzine HCl (Hydroxyzine Hcl 50 Mg Tablet) 50 mg PO TID PRN PRN Reason: mild anxiety Last Admin: 02/16/21 19:47 Dose: 50 mg Documented by: Lorazepam (Lorazepam 1 Mg Tablet) 1 mg PO DAILY [facility] Last Admin: 02/17/21 08:46 Dose: 1 mg Documented by: Magnesium Hydroxide (Milk Of Magnesia 30 Ml Oral.Susp) 30 ml PO DAILY PRN PRN Reason: Constipation Mirtazapine (Mirtazapine 15 Mg Tablet) 15 mg PO BEDTIME [facility] Last Admin: 02/16/21 19:47 Dose: 15 mg Documented by: Nicotine (Nicotine 21 Mg Patch.Td24) 21 mg TRANSDERMA DAILY [facility] Last Admin: 02/17/21 08:46 Dose: 21 mg Documented by: Nicotine Polacrilex (Nicotine Polacrilex Lozenge 4 Mg Lozenge) 4 mg BUCCAL Q2H PRN PRN Reason: Nicotine Cravings Last Admin: 02/14/21 15:45 Dose: 4 mg Documented by: Prazosin HCl (Prazosin Hcl 1 Mg Capsule) 2 mg PO BEDTIME [facility]; Protocol Last Admin: 02/16/21 19:47 Dose: 2 mg Documented by: Quetiapine Fumarate (Quetiapine Fumarate 25 Mg Tablet) 25 mg PO TID PRN PRN Reason: moderate anxiety Last Admin: 02/16/21 19:47 Dose: 25 mg Documented by: Trazodone HCl (Trazodone Hcl 50 Mg Tablet) 150 mg PO BEDTIME PRN PRN Reason: Insomnia Last Admin: 02/16/21 19:47 Dose: 150 mg Documented by: Allergies Allergies Allergy/AdvReac Type Severity Reaction Status Date / Time No Known Allergies Allergy Verified 12/28/20 21:57 [No Known Allergies*] Assessment & Plan Assessment & Plan (1) Drug overdose: Qualifiers: Encounter type: initial encounter Injury intent: intentional self-harm Qualified Code(s): T50.902A - Poisoning by unspecified drugs, medicaments and biological substances, intentional self-harm, initial encounter Status: Acute Code(s): T50.901A - Poisoning by unspecified drugs, medicaments and biological substances, accidental (unintentional), initial encounter Assessment and Plan: IMPRESSION: Patient is a 50-year-old male with history of depression, PTSD alcohol dependence, opioid dependence who presents for suicide attempts are you overdosing on Wellbutrin (took 6000mg) in the face of worsening depression, homelessness and relapse on alcohol. Pt remains with SI and passive wish, but trying find hope.? -wants to continue on home meds -will make ativan taper (already been 5 days since last drink) Patient feels anxious and depressed, though SI remains fully resolved. He is realizing that might be difficult for him to get into a program and he will again be homeless, struggling without additional support to stay sober. He does acknowledge however that he has been to several programs over the past few months and has left after a few weeks specifically to relapse and thus was able to conclude that his sobriety is not dependent on getting into a program but rather dependent on him working a treatment plan. To that and patient wanted to get on to disulfiram to help him stay sober. Today found out that this medication is currently on back order and it is not clear when it will be available. Disulfiram: Pt has been contemplating starting disulfiram for several months over past admissions Patient decided that he would like to start disulfiram, something that he's been considering for the past several months.? Rehabilitation Director reviewed the risks and side effects in extensive detail including products and medications that can trigger her reaction and the dangers of trying to drink on this medication.? At last admission Dr. Larsen (sp) consulted who informed telegraphic typewriter operator and pt that even if pt has Hep C it will not increase risk for adverse liver event from being on Disulfiam, something relieving to patient.? Patient understands the risks and side effects of taking this medication; when he compares this to continuing to drink alcohol which has several times to lead him to becoming hopeless and attempting suicide, he feels that the risks of not taking it far outweigh the potential side-effect risks of this medication and wants to proceed. Pt understands that this medication requires follow up and that given that dispo plan is still tentative, there is concern about patients access to outpt provider who can monitor patient on this med and assess follow up labs. Patient feels that despite this potential, he is too vulnerable to alcohol relapse without this medication and wants to continue with this medication. Rehabilitation Director, while also concerned with follow up, agrees with patients concern about his vulnerability to relapse, especially since he only seems to develop SI and attempt suicide in context relapse. Patient has approached this decision judiciously; Given that patient has good insight regarding his healthcare and while sober is capable of following through with treatment, it is writers opinion that the potential benefit of starting disulfiram in this context outweighs the risk. *unfortunately, disulfiram is scarce nowadays and hospital cannot get hold of any 02/15: complains of difficulty falling asleep but does not want med changes. Denies benefit on seroquel and vistaril for anxiety in the day, discussed discontinuing to reduce polypharm but he wants to wait on this. 02/16-: Patient reports doing better, mood better no SI. Mild anxiety but feels it is under control. Sleeping better with increased prazosin; remains stable PLAN: pt on CV Q15 min checks [facility] startt disulfiram; on back order and not available anytime soon INCREASEd Wellbutrin XL to 450 mg daily INCREASED prazosin to 2 mg q.h.s. for continued trouble sleeping due to worries Continue MIRTAZAPINE 15 MG increase for ongoing depression/anxiety Ativan taper complete continue home meds -will continue home dose of Gabapentin; telegraphic typewriter operator discussed with patient risk of this med including risk of abusing, using with substance abuse, and hx of overdosing in suicide attempt. Pt reports this medication has treated his chronic pain quite well and would like to remain on it; telegraphic typewriter operator agrees that despite risks of continuing with this med, taking away a medication that treats pain would more likely place him at higher risk for relapse and depression; thus, it's writers opinion that benefit outweighs risk -continue Wellbutrin; despite overdose attempt, pt says this med does well to treat his depression; telegraphic typewriter operator agrees that again, benefit outweighs risk.? Greater than 50% of the session was spent on counseling and/or coordination of care Reason for contiued inpatient stay Substantial Risk for: stable for discharge
[2021-02-17] MEDS: QUEtiapine Fumarate 25 MG TABLET PO ×2 (12:57→21:12)
[2021-02-17] MEDS: hydrOXYzine HCL 50 MG TABLET PO ×2 (12:57→21:12)
[2021-02-17] MEDS: Mirtazapine 15 MG TABLET PO (21:12)
[2021-02-17 21:13] VITALS: BP 130/74; PULSE 68
[2021-02-17] MEDS: Prazosin HCL 1 MG CAPSULE 2 MG PO (21:13)
[2021-02-17] MEDS: traZODone HCL 50 MG TABLET 150 MG PO (21:13)
[2021-02-17 21:24] VITALS: BP 130/74; PULSE 68; TEMP 36.5; O2SAT 95
[2021-02-18 08:30] VITALS: BP 136/74; PULSE 74; RESP 16; TEMP 36.4; O2SAT 98
[2021-02-18] MEDS: Nicotine 21 MG PATCH.TD24 TRANSDERMA (08:55)
[2021-02-18] MEDS: LORazepam 1 MG TABLET PO (08:56)
[2021-02-18] MEDS: Buprenorphine/Naloxone 8/2 mg TAB.SUBL 2 TAB SUBLINGUAL (08:56)
[2021-02-18] MEDS: Gabapentin 400 MG CAPSULE 800 MG PO ×3 (08:56→20:34)
[2021-02-18] MEDS: buPROPion HCl XL 150 MG TAB.ER.24H PO (08:56)
[2021-02-18] MEDS: buPROPion HCl XL 300 MG TAB.ER.24H PO (08:56)
--- NOTE | 2021-02-18 19:00 | P.PNPSI_ITS ---
Subjective Subjective Date of Service: 02/18/21 Reason For Visit: major depressive disorder Interim History: pt says his mood is good; he is pretty resolved that he'll be in a custodial tomorrow, but remains focused on protecting his sobriety and going to AA meetings daily until he gets into a program. Pt says he's sleeping well; meds working well and well toerated. Mental Status Exam Mental Status Exam Narrative: Patient Appearance:?adequate hygiene Patient Orientation:?Person, Place, Time and Situation Level of Consciousness:?Appropriate Patient Behavior:?Appropriate, Cooperative and Good Eye Contact Mood Description:? good Affect Description:?congruent, brighter Patient Cognition Impaired:?No Ability to Follow Directions:?Good Speech Pattern:?Clear Memory Description:?Intact Hallucinations:?None Delusions:?Not Present Thought Process:?Intact and Linear Thought Content:?No SI or HI Abnormal Motor Activity: none Judgement/insight: intact Diagnostics Vital Signs (24Hr): Vital Signs - 24 hr 02/17/21 21:13 02/17/21 21:24 02/18/21 08:30 Temperature 97.7 F 97.6 F Pulse Rate 68 68 74 Respiratory Rate 16 Blood Pressure 130/74 130/74 136/74 Pulse Oximetry 95 98 Body Mass Index 32.5 Medications Medications Current Medications Acetaminophen (Acetaminophen 325 Mg Tablet) 650 mg PO Q6H PRN PRN Reason: Headache/Pain Mild Scale (1-3) Al Hydroxide/Mg Hydroxide (Magnesium Hydrox/Alum Hydrox 30 Ml Oral.Susp) 30 ml PO Q6H PRN PRN Reason: Heartburn/Nausea Buprenorphine/Naloxone (Buprenorphine/Naloxone 8/2 Mg Tab.Subl) 2 tab SUBLINGUAL DAILY FOR[facility]LY [facility], [facility]1983 Last Admin: 02/18/21 08:56 Dose: 2 tab Documented by: Bupropion HCl (Bupropion Hcl Xl 300 Mg Tab.Er.24h) 300 mg PO DAILY FOUZIA Last Admin: 02/18/21 08:56 Dose: 300 mg Documented by: Bupropion HCl (Bupropion Hcl Xl 150 Mg Tab.Er.24h) 150 mg PO DAILY FOUZIA Last Admin: 02/18/21 08:56 Dose: 150 mg Documented by: Gabapentin (Gabapentin 400 Mg Capsule) 800 mg PO TID [facility], [facility] Last Admin: 02/18/21 15:37 Dose: 800 mg Documented by: Hydroxyzine HCl (Hydroxyzine Hcl 50 Mg Tablet) 50 mg PO TID PRN PRN Reason: mild anxiety Last Admin: 02/17/21 21:12 Dose: 50 mg Documented by: Lorazepam (Lorazepam 1 Mg Tablet) 1 mg PO DAILY [facility], [facility] Last Admin: 02/18/21 08:56 Dose: 1 mg Documented by: Magnesium Hydroxide (Milk Of Magnesia 30 Ml Oral.Susp) 30 ml PO DAILY PRN PRN Reason: Constipation Mirtazapine (Mirtazapine 15 Mg Tablet) 15 mg PO BEDTIME FOUZIA Last Admin: 02/17/21 21:12 Dose: 15 mg Documented by: Nicotine (Nicotine 21 Mg Patch.Td24) 21 mg TRANSDERMA DAILY [facility], [facility] Last Admin: 02/18/21 08:55 Dose: 21 mg Documented by: Nicotine Polacrilex (Nicotine Polacrilex Lozenge 4 Mg Lozenge) 4 mg BUCCAL Q2H PRN PRN Reason: Nicotine Cravings Last Admin: 02/14/21 15:45 Dose: 4 mg Documented by: Prazosin HCl (Prazosin Hcl 1 Mg Capsule) 2 mg PO BEDTIME FOUZIA; Protocol Last Admin: 02/17/21 21:13 Dose: 2 mg Documented by: Quetiapine Fumarate (Quetiapine Fumarate 25 Mg Tablet) 25 mg PO TID PRN PRN Reason: moderate anxiety Last Admin: 02/17/21 21:12 Dose: 25 mg Documented by: Trazodone HCl (Trazodone Hcl 50 Mg Tablet) 150 mg PO BEDTIME PRN PRN Reason: Insomnia Last Admin: 02/17/21 21:13 Dose: 150 mg Documented by: Allergies Allergies Allergy/AdvReac Type Severity Reaction Status Date / Time No Known Allergies Allergy Verified 12/28/20 21:57 [No Known Allergies*] Assessment & Plan Assessment & Plan (1) Drug overdose: Qualifiers: Encounter type: initial encounter Injury intent: intentional self-harm Qualified Code(s): T50.902A - Poisoning by unspecified drugs, medicaments and biological substances, intentional self-harm, initial encounter Status: Acute Code(s): T50.901A - Poisoning by unspecified drugs, medicaments and biological substances, accidental (unintentional), initial encounter Assessment and Plan: IMPRESSION: Patient is a 50-year-old male with history of depression, PTSD alcohol dependence, opioid dependence who presents for suicide attempts are you overdosing on Wellbutrin (took 6000mg) in the face of worsening depression, h omelessness and relapse on alcohol. Pt remains with SI and passive wish, but trying find hope.? -wants to continue on home meds -will make ativan taper (already been 5 days since last drink) Patient feels anxious and depressed, though SI remains fully resolved. He is realizing that might be difficult for him to get into a program and he will again be homeless, struggling without additional support to stay sober. He does acknowledge however that he has been to several programs over the past few months and has left after a few weeks specifically to relapse and thus was able to conclude that his sobriety is not dependent on getting into a program but rather dependent on him working a treatment plan. To that and patient wanted to get on to disulfiram to help him stay sober. Today found out that this medication is currently on back order and it is not clear when it will be available. Disulfiram: Pt has been contemplating starting disulfiram for several months over past admissions Patient decided that he would like to start disulfiram, something that he's been considering for the past several months.? Blanket Inspector reviewed the risks and side effects in extensive detail including products and medications that can trigger her reaction and the dangers of trying to drink on this medication.? At last admission Dr. Larsen (sp) consulted who informed science writer and pt that even if pt has Hep C it will not increase risk for adverse liver event from being on Disulfiam, something relieving to patient.? Patient understands the risks and side effects of taking this medication; when he compares this to continuing to drink alcohol which has several times to lead him to becoming hopeless and attempting suicide, he feels that the risks of not taking it far outweigh the potential side-effect risks of this medication and wants to proceed. Pt understands that this medication requires follow up and that given that dispo plan is still tentative, there is concern about patients access to outpt provider who can monitor patient on this med and assess follow up labs. Patient feels that despite this potential, he is too vulnerable to alcohol relapse without this medication and wants to continue with this medication. Blanket Inspector, while also concerned with follow up, agrees with patients concern about his vulnerability to relapse, especially since he only seems to develop SI and attempt suicide in context relapse. Patient has approached this decision judiciously; Given that patient has good insight regarding his healthcare and while sober is capable of following through with treatment, it is writers opinion that the potential benefit of starting disulfiram in this context outweighs the risk. *unfortunately, disulfiram is scarce nowadays and hospital cannot get hold of any 02/15: complains of difficulty falling asleep but does not want med changes. Denies benefit on seroquel and vistaril for anxiety in the day, discussed discontinuing to reduce polypharm but he wants to wait on this. 02/16-: Patient reports doing better, mood better no SI. Mild anxiety but feels it is under control. Sleeping better with increased prazosin; remains stable 02/18 mood is good; no SI; feels optimistic about staying sober PLAN: pt on CV Q15 min checks Cann[place] startt disulfiram; on back order and not available anytime soon INCREASEd Wellbutrin XL to 450 mg daily INCREASED prazosin to 2 mg q.h.s. for continued trouble sleeping due to worries Continue MIRTAZAPINE 15 MG increase for ongoing depression/anxiety Ativan taper complete continue home meds -will continue home dose of Gabapentin; science writer discussed with patient risk of this med including risk of abusing, using with substance abuse, and hx of overdosing in suicide attempt. Pt reports this medication has treated his chronic pain quite well and would like to remain on it; science writer agrees that despite risks of continuing with this med, taking away a medication that treats pain would more likely place him at higher risk for relapse and depression; thus, it's writers opinion that benefit outweighs risk -continue Wellbutrin; despite overdose attempt, pt says this med does well to treat his depression; science writer agrees that again, benefit outweighs risk.? Greater than 50% of the session was spent on counseling and/or coordination of care Reason for contiued inpatient stay Substantial Risk for: stable for discharge
[2021-02-18 20:30] VITALS: BP 141/81; PULSE 74; TEMP 36.2; O2SAT 95
[2021-02-18 20:33] VITALS: BP 141/81; PULSE 74
[2021-02-18] MEDS: Prazosin HCL 1 MG CAPSULE 2 MG PO (20:33)
[2021-02-18] MEDS: Mirtazapine 15 MG TABLET PO (20:34)
[2021-02-18] MEDS: QUEtiapine Fumarate 25 MG TABLET PO (20:34)
[2021-02-18] MEDS: traZODone HCL 50 MG TABLET 150 MG PO (20:34)
[2021-02-18] MEDS: hydrOXYzine HCL 50 MG TABLET PO (20:34)
[2021-02-19 06:00] VITALS: BP 160/69; PULSE 78; RESP 16; TEMP 36.5; O2SAT 97
[2021-02-19] MEDS: Buprenorphine/Naloxone 8/2 mg TAB.SUBL 2 TAB SUBLINGUAL (09:00)
[2021-02-19] MEDS: Nicotine 21 MG PATCH.TD24 TRANSDERMA (09:00)
[2021-02-19] MEDS: Gabapentin 400 MG CAPSULE 800 MG PO ×2 (09:00→14:18)
[2021-02-19] MEDS: buPROPion HCl XL 300 MG TAB.ER.24H PO (09:00)
[2021-02-19] MEDS: buPROPion HCl XL 150 MG TAB.ER.24H PO (09:00)
[2021-02-19] MEDS: LORazepam 1 MG TABLET PO (09:50)
--- NOTE | 2021-02-19 12:17 | P.DS_ITS ---
DS: Providers Provider Date of Service: 02/19/21 Date of admission: 02/06/21 20:08 Date of discharge: 02/19/21 Primary care physician: Unknown Physician Attending physician on admission: Alexander Rose Consults: 02/06/21 21:36 Consult to Hospitalist Routine Consulting Provider: Hospitalist Reason For Exam: admission physical Attending physician on discharge: Alexander Rose DS: Diagnosis Discharge Diagnosis (1) Drug overdose: Status: Resolved (2) MDD (major depressive disorder), recurrent episode, severe: Status: Resolved (3) Chronic post-traumatic stress disorder (PTSD): Status: Acute (4) Opioid use disorder: Status: Chronic (5) Alcohol use disorder: Status: Chronic DS: Medications Discharge Medications Home Medications: Previous Rx's Medication Instructions Recorded buprenorphine 8 mg-naloxone 2 mg 2 film SUBLINGUAL DAILY 9 Days #18 02/19/21 sublingual film (Suboxone) ea bupropion HCl 150 mg 24 hr tablet, 150 mg PO DAILY 30 Days #30 tab 02/19/21 extended release bupropion HCl 300 mg 24 hr tablet, 300 mg PO QAM 30 Days #30 tab 02/19/21 extended release (Wellbutrin XL) gabapentin 800 mg tablet 800 mg PO TID 30 Days #90 tab 02/19/21 hydroxyzine pamoate 50 mg capsule 50 mg PO TID PRN 30 Days #60 cap 02/19/21 lorazepam 1 mg tablet 1 mg PO DAILY 5 Days #5 tab 02/19/21 mirtazapine 15 mg tablet 15 mg PO BEDTIME 30 Days #30 tab 02/19/21 nicotine (polacrilex) 2 mg gum 4 mg BUCCAL Q2H PRN 30 Days #100 ea 02/19/21 nicotine 21 mg/24 hr daily 1 patch TRANSDERMAL DAILY PRN 30 02/19/21 transdermal patch Days #28 ea prazosin 1 mg capsule 2 mg PO BEDTIME 30 Days #60 cap 02/19/21 trazodone 150 mg tablet 150 mg PO BEDTIME 30 Days #30 tab 02/19/21 Mental Status Exam Mental Status Exam Narrative: ?Patient Appearance:?adequate hygiene Patient Orientation:?Person, Place, Time and Situation Level of Consciousness:?Appropriate Patient Behavior:?Appropriate, Cooperative and Good Eye Contact Mood Description:? good Affect Description:?congruent, brighter Patient Cognition Impaired:?No Ability to Follow Directions:?Good Speech Pattern:?Clear Memory Description:?Intact Hallucinations:?None Delusions:?Not Present Thought Process:?Intact and Linear Thought Content:?No SI or HI Abnormal Motor Activity: none Judgement/insight: intact Data Data Completed and Pending Completed studies during hospitalization [Text1]: 02/14/21 02/14/21 08:13 08:13 Total Bilirubin < 0.2 Direct Bilirubin < 0.2 AST 17 D ALT 39 Alkaline Phosphatase 76 D Ammonia 30 Total Protein 5.8 L Albumin 3.7 DS: Summary Hospital Course Hospital Course: Patient is a 50-year-old male with history of depression, PTSD alcohol dependence, opioid dependence who presents for suicide attempts are you overdosing on Wellbutrin (took 6000mg) in the face of worsening depression, homelessness and relapse on alcohol. Pt remains with SI and passive wish, but trying find hope.? -wants to continue on home meds -will make ativan taper (already been 5 days since last drink) On admission Patient feels anxious and depressed, though SI remains fully resolved.? He was mostly through detox but was placed on an Ativan taper which was completed and without incident. He is realizing that might be difficult for him to get into a program and he will again be homeless, struggling without additional support to stay sober.? He does acknowledge however that he has been to several programs over the past few months and has left after a few weeks specifically to relapse and thus was able to conclude that his sobriety is not dependent on getting into a program but rather dependent on him working a treatment plan.? To that and patient wanted to get on to disulfiram to help him stay sober; unfortunately this medication is currently on back order and was not available for patient. Patient remained without any SI or HI and his depression abated as his medications continued and were titrated. His Wellbutrin was increased to 450 mg daily; his prazosin was increased to 2 mg and mirtazapine increased to 15 mg all which proved helpful. Patient's depression fully resolved; he reported being in a good mood, remained w/out any SI and was optimistic about staying sober; as discharge approached he remained with bright affect, future focused and sleeping and eating well. Despite not getting into a program right away patient planned to remain sober, while waiting for placement by going to at least 3 AA meetings a day, which is 1 of the main ways he kept himself sober in the past. He expressed that he's through with this cycle of relapse. Patient was well aware of his vulnerability to relapse however he expressed a clear minded understanding of the need to engage in the day-to-day work of staying sober and a willingness to do so. While patient remains chronically vulnerable to both relapse and emotional dysregulation, he agrees that this will not resolve with longer inpatient stay but rather through long- term outpatient therapy and sobriety. He was not in imminent risk for harm to self or others and was appropriate for discharge. Time spent discussing smoking cessation with patient: 3 to 10 minutes Status at Discharge Functional status at discharge: independent ambulation Overall status at discharge: patient is back to baseline Time Spent with Patient Time attestation: Total time spent providing and/or coordinating discharge services: Time spent: Greater than 30 minutes Discharge Plan Discharge Patient Disposition: Skilled Nursing Discharge Diagnosis: MDD, recurrent, severe in full remission Referrals: [facility] [Other] - 02/28/21 2:50 pm (You will be seeing Dr. Pizano. Bring your last dose letter and a photo ID if you have one) [facility] (nursing home) [Other] [facility] [Other] - 1 Day (Call daily to check on bed availability) [facility] [Other] - 1 Day (Call daily to check on bed availability ) [facility] ([facility]) [Other] - 1 Day (Call daily to check for bed availability) [facility] [Other] - 02/20/21 1:00 pm Caitlyn Greenberg NP [Nurse Practitioner] - 1 Week (I LEFT A MESSAGE AT THE OFFICE TO CALL US BACK FOR A FOLLOW UP APPOINTMENT.PT. STATES THAT HE'S GOING TO THE [address] IN [facility].) Discharge Medications: New prazosin 1 mg Capsule 2 mg PO BEDTIME 30 Days Qty: 60 RF: 0 mirtazapine 15 mg Tablet 15 mg PO BEDTIME 30 Days Qty: 30 RF: 0 bupropion HCl 150 mg Tablet Extended Release 24 Hr 150 mg PO DAILY 30 Days Qty: 30 RF: 0 lorazepam 1 mg Tablet 1 mg PO DAILY 5 Days Qty: 5 RF: 0 Continued nicotine (polacrilex) 2 mg Gum 4 mg buccal Q2H PRN (Reason: Nicotine Cravings) 30 Days Qty: 100 RF: 0 hydroxyzine pamoate 50 mg capsule 50 mg PO TID PRN (Reason: anxiety) 30 Days Qty: 60 RF: 1 gabapentin 800 mg tablet 800 mg PO TID 30 Days Qty: 90 RF: 0 trazodone 150 mg tablet 150 mg PO BEDTIME 30 Days Qty: 30 RF: 0 nicotine 21 mg/24 hr Patch 24 Hour 1 patch TRANSDERMAL DAILY PRN (Reason: smoking cessation) 30 Days Qty: 28 RF: 0 bupropion HCl [Wellbutrin XL] 300 mg tablet extended release 24 hr 300 mg PO QAM 30 Days Qty: 30 RF: 0 buprenorphine-naloxone [Suboxone] 8-2 mg film 2 film sublingual DAILY 9 Days Qty: 18 RF: 0 Discontinued clotrimazole 1 % Cream 1 appl topical BID 7 Days Qty: 15 RF: 0 prazosin 1 mg Capsule 1 mg PO BEDTIME 30 Days Qty: 30 RF: 1 mirtazapine 7.5 mg Tablet 7.5 mg PO BEDTIME 30 Days Qty: 30 RF: 1 quetiapine [Seroquel] 25 mg tablet 25 mg PO TID 30 Days Qty: 90 RF: 0 Discharge Orders: Discharge Order (Routine); Ordered 02/19/21 Ordered By: Alexander Rose Diet: regular diet Activity on Discharge: As tolerated Stand Alone Forms: Patient Portal Discharge page Care Plan Goals: Maintain mood and safe behaviors Take medications as prescribed Continue to pursue sobriety Practice coping skills Continue with outpatient providers and reach out to them as needed Health Concerns: Mood stability and behaviors Sobriety Plan of Treatment: Follow up with your PCP and psychiatric provider regarding above concerns Take medications as prescribed Assessment: Risk assessment at time of discharge:? Patient was interviewed prior to discharge and found to be fully oriented and without any SI or HI. Patient has insight and demonstrates good judgment in terms of wanting to pursue treatment. Patient is not in imminent risk of harm to self or others and has a safety plan that includes presenting to the closest ER or calling 911 if feeling unsafe.? Patient has been observed closely by nursing and unit staff throughout admission; patient has not engaged in any behaviors that suggest dangerousness to self or others and has demonstrated appropriate behaviors and impulse control. Discharge Date/Time: 02/19/21 15:37
--- NOTE | 2021-02-19 13:40 | PC.NURSE ---
all paperwork faxed to sheree gleason who follows him medically at [facility].
[2021-02-19] MEDS: Naloxone HCl Nasal TAKE HOME 4 MG SPRAY NOSTRILALT (14:19)
== END 2021-02-19 15:37 | disposition home or self-care (01) | DRG 751 ==
PROVIDERS: Admitting Provider Psychiatry & Neurology Psychiatry; Visit Provider Psychiatry & Neurology Psychiatry
DX: F33.2 Major depressive disorder, recurrent severe without psychotic features (principal); R45.851 Suicidal ideations; F11.20 Opioid dependence, uncomplicated; G62.9 Polyneuropathy, unspecified; Z91.5 Personal history of self-harm; F10.10 Alcohol abuse, uncomplicated; F43.12 Post-traumatic stress disorder, chronic; Z59.0 Homelessness; F17.210 Nicotine dependence, cigarettes, uncomplicated; Z71.6 Tobacco abuse counseling; Z79.899 Other long term (current) drug therapy
CPT/HCPCS: 36415; 80076; 82140

== ENCOUNTER 2021-03-15 13:36 | Inpatient (IN) | payer MEDICAID, SELFPAY ==
--- NOTE | 2021-03-15 | ECG_ITS ---
Test Reason : OVERDOSE Blood Pressure : / mmHG Vent. Rate : 067 BPM Atrial Rate : 067 BPM P-R Int : 142 ms QRS Dur : 090 ms QT Int : 432 ms P-R-T Axes : 049 010 016 degrees QTc Int : 456 ms Normal sinus rhythm RSR' or QR pattern in V1 suggests right ventricular conduction delay Intra-ventricular conduction delay Borderline ECG When compared with ECG of 30-DEC-2020 08:33, No significant changes seen Referred By: Ramirez Stapleton Electronically Signed By:JESSICA PICKERING MD
--- NOTE | 2021-03-15 | ECG_ITS ---
Test Reason : walbutrin overdose Blood Pressure : / mmHG Vent. Rate : 072 BPM Atrial Rate : 072 BPM P-R Int : 140 ms QRS Dur : 092 ms QT Int : 412 ms P-R-T Axes : 050 018 018 degrees QTc Int : 451 ms Normal sinus rhythm Nonspecific T wave abnormality Abnormal ECG When compared with ECG of 15-MAR-2021 21:03, No significant change was found Referred By: Vamsi Washington Electronically Signed By:JESSICA PICKERING MD
--- NOTE | 2021-03-15 | ECG_ITS ---
Test Reason : OVERDOSE Blood Pressure : / mmHG Vent. Rate : 074 BPM Atrial Rate : 074 BPM P-R Int : 140 ms QRS Dur : 092 ms QT Int : 412 ms P-R-T Axes : 049 007 023 degrees QTc Int : 457 ms Normal sinus rhythm Nonspecific T wave abnormality Abnormal ECG T wave inversion now evident in Lateral leads Referred By: Loni Justin Electronically Signed By:JESSICA PICKERING MD
[2021-03-15 13:50] VITALS: BP 105/66; BP 118/67; PULSE 72; PULSE 85; RESP 18; TEMP 36.9; O2SAT 98; BMI 29.3
--- NOTE | 2021-03-15 14:11 | ED.OVERDOSE ---
HPI - Overdose General Chief Complaint: Overdose Stated Complaint: ANXIETY/OVERDOSE 20 WELLBUTRIN Time Seen by Provider: 03/15/21 14:09 Source: patient and EMS Mode of arrival: EMS Limitations: no limitations History of Present Illness HPI Narrative: 50-year-old male brought in by EMS for evaluation of depression and a drug overdose. Patient with history of depression, and prior history of SI, presented today after overdosed on 20 pills of 300 mg Wellbutrin the extended release, patient took it about 13:00, patient feeling depressed and suicidal. Patient also admitted that he has been using alcohol for the past 3 weeks. Patient also admitted to use cocaine and heroin on a daily basis for the past week, patient is on Suboxone that he did not take because he was using heroin. Related Data Home Medications Medication Instructions Recorded Confirmed buprenorphine 8 mg-naloxone 2 mg 1 film SUBLINGUAL BID 03/15/21 03/15/21 sublingual film (Suboxone) quetiapine 100 mg tablet (Seroquel) 100 mg PO BEDTIME 03/15/21 03/15/21 Previous Rx's Medication Instructions Recorded bupropion HCl 150 mg 24 hr tablet, 150 mg PO DAILY 30 Days #30 tab 02/19/21 extended release bupropion HCl 300 mg 24 hr tablet, 300 mg PO QAM 30 Days #30 tab 02/19/21 extended release (Wellbutrin XL) gabapentin 800 mg tablet 800 mg PO TID 30 Days #90 tab 02/19/21 hydroxyzine pamoate 50 mg capsule 50 mg PO TID PRN 30 Days #60 cap 02/19/21 mirtazapine 15 mg tablet 15 mg PO BEDTIME 30 Days #30 tab 02/19/21 nicotine (polacrilex) 2 mg gum 4 mg BUCCAL Q2H PRN 30 Days #100 ea 02/19/21 nicotine 21 mg/24 hr daily 1 patch TRANSDERMAL DAILY PRN 30 02/19/21 transdermal patch Days #28 ea prazosin 1 mg capsule 2 mg PO BEDTIME 30 Days #60 cap 02/19/21 Allergies Allergy/AdvReac Type Severity Reaction Status Date / Time No Known Allergies Allergy Verified 12/28/20 21:57 [No Known Allergies*] Review of Systems Review of Systems: All other systems are reviewed and are negative Constitutional: Reports as per HPI and Reports no additional constitutional complaints Eyes: Reports as per HPI and Reports no additional eye complaints Reports system reviewed and no additional complaints, except as documented Cardiovascular: Reports as per HPI and Reports no additional cardiovascular complaints Respiratory: Reports as per HPI and Reports no additional respiratory complaints Gastrointestinal: Reports as per HPI and Reports no additional gastrointestinal complaints Genitourinary: Reports no additional female genitourinary complaints Musculoskeletal: Reports no additional musculoskeletal complaints Skin/Breast: Reports system reviewed and no additional complaints, except as docu Psychiatric: Reports no additional psychiatric complaints Endocrine: Reports no additional endocrine complaints Hematologic/Lymphatic: Reports no additional hematologic/lymphatic complaints Allergic/Immunologic: Reports no additional allergic/immunologic complaints Reports system reviewed and no additional complaints, except as documented and Reports Abnormal speech present [facility] Past Medical History Medical History Alcohol dependence Alcohol use disorder Anxiety Chronic post-traumatic stress disorder (PTSD) Depression EtOH dependence Hepatitis C antibody positive in blood MDD (major depressive disorder), recurrent episode, severe Surgical History History of mandibular surgery Family History Family History Mother Diabetes mellitus Father Leukemia Social History Social History Household Members: Unknown / Unable to assess Household Members Other:: People he met in the community Housing: Homeless Housing Other:: Pt recently lost housing. Friend who had lived with him recently . Do you presently have visiting nurse or other home services: No Unable to assess alcohol history related to: Unknown Alcohol intake: current Alcohol intake frequency: 3 or more drinks per day Alcohol type: beer and hard liquor Patient Tobacco Use Status: Current everyday Tobacco user Tobacco use type: Cigarette Cigarette Packs Per Day: 1 Cigarettes Per Day: 20.0 Years Smoked: 10+ e-Cigarette/Vaping Use: Never Used Use of substances other than those prescribed or required for medical reasons: Yes Substance Use Type: Crack/Cocaine and Heroin Advance Directives: No Advance Directives Information Provided: No service: No Current occupational status: unemployed Sexual orientation: Straight/Heterosexual Physical Exam Vital Signs: Vital Signs: Last Vital Signs Temp 98.4 F 03/15/21 13:50 Pulse 72 03/15/21 13:50 Resp 18 03/15/21 13:50 BP 118/67 03/15/21 13:50 Pulse Ox 98 03/15/21 13:50 Body Mass Index 29.3 Vital signs have been reviewed as appeared to be correct. Blood pressure normal. Heart rate normal. Respiration rate normal. Temperature normal. Oxygen saturation normal. Appearance: Alert. Oriented X3. No acute distress. Head: Normal external exam. Normocephalic. Atraumatic. No Martinez signs noted. No raccoon eyes noted Eyes: PERRLA. EOMI. Conjunctiva and sclera normal. Eyelids normal. ENT: TM's Normal. Pharynx normal. Uvula midline. Moist mucous membranes. No trismus noted. No drooling noted. No muffled voice noted. Neck: Normal inspection. Neck supple. FROM. No adenopathy. Thyroid Normal. No meningeal signs. No neck mass noted. CVS: Normal heart rate and rhythm. Heart sound normal. No murmurs noted. Pulses normal throughout. Respiratory: No respiratory distress. Painless inspiration. Breath sounds normal. No wheezes/rales/rhonchi noted. Chest nontender. No accessory muscle usage noted or decreased air movement noted. Abdomen: Soft and nontender. Bowel sounds normal in all 4 quadrants. No distention noted. No organomegaly noted. No visible injury noted. Back: No CVA tenderness. Full range of motion noted. Skin: Skin warm and dry. Normal skin color. Normal skin turgor. No rashes/lesions/lacerations noted. Extremities: No lower extremity edema. Extremities exhibit normal range of motion. Extremities nontender. Neuro: Oriented X 3. Cranial nerve exam: II-XII are grossly intact No motor deficit. No sensory deficit. Reflexes normal. Patient Appearance: Appropriate Patient Orientation: Person, Place, Time and Situation Level of Consciousness: Awake, Appropriate and Alert Patient Behavior: Talkative, Cooperative. Mood Description: Depressed. Affect Description: Flat. Patient Cognition Impaired: No Ability to Follow Directions: Good Speech Pattern: Spontaneous Speech Memory Description: Intact Hallucinations: Not present. Delusions: Not Present Thought Process: Logical. Thought Content: Unremarkable Depressive Symptoms: Increased anxiety. Judgement: Fair Course Course Course Narrative: Assessment and plan. 50-year-old male came in after overdosed on Wellbutrin 300 mg tablet about 20 tablets. Serial EKGs every 4 hours, monitor QRS/QT prolongation and consider bicarb/bicarb drip if needed, activated charcoal, check labs, watch for seizure, one-to-one sitter, which for alcohol withdrawal, 24 hours monitoring. Reevaluation(s) Reevaluation #1: Patient has been bingeing on alcohol, now started develop symptoms of alcohol withdrawal with tremors and tongue fasciculation and being jittery, patient had a history of seizure from withdrawing from alcohol. We will start the patient on Ativan p.r.n. Time: 16:05 Reevaluation #2: 4 hour interval EKG showed no significant change, QRS/QT/QTC within normal with no significant change from the 1st EKG. Will continue monitoring serial EKGs as per poison Control recommendations. Time: 17:56 MDM - Overdose Medical Records Attestation: I reviewed the patient's medical records. Lab Data Attestation: I reviewed the patient's lab results. Result diagrams: 03/15/21 14:28 03/15/21 14:28 Labs: Lab Results 03/15/21 03/15/21 03/15/21 Range/Units 14:28 14:28 14:28 WBC 5.8 (4.8-10.8) X10*3/uL RBC 4.11 L (4.60-5.80) X10*6/uL Hgb 12.5 L (14.0-18.0) g/dl Hct 35.5 L (42-52) % MCV 86.4 (80-98) fL MCH 30.4 (27.0-33.0) pg MCHC 35.2 (31.0-36.0) g/dl RDW 13.3 (11.0-16.0) % Plt Count 203 (160-400) X10*3/uL MPV 9.9 (9.4-12.4) fL Immature Gran % (Auto) 0.3 (0.0-0.4) % Neut % (Auto) 73.3 H (45-73) % Lymph % (Auto) 14.9 L (20-40) % [place] % (Auto) 8.9 (2-11) % Eos % (Auto) 1.7 (0-4) % Baso % (Auto) 0.9 (0-2) % Lymph # (Auto) 0.9 L (1.2-4.9) X10*3/uL [place] # (Auto) 0.5 (0.1-1.2) X10*3/uL Eos # (Auto) 0.1 (0.0-0.4) X10*3/uL Baso # (Auto) 0.1 (0.0-0.2) X10*3/uL Abs Immat Gran (auto) 0.02 (0.00-0.03) X10*3/uL Absolute Neuts (auto) 4.3 (2.0-8.3) X10*3/uL Absolute Nucleated RBC 0.000 (0.0-0.012) X10*3/uL Nucleated RBC % (auto) 0.0 (0.0-0.2) /100WBC Sodium 139 (135-145) mmol/L Potassium 3.7 (3.3-5.1) mmol/L Chloride 105 (96-108) mmol/L Carbon Dioxide 26 (22-29) mmol/L Anion Gap 12 (12-20) BUN 11 (9-16) mg/dL Creatinine 0.91 (0.5-1.4) mg/dL Estim Creat Clear Calc 121.3 Estimated GFR > 60 Random Glucose 104 (60-115) mg/dL Calcium 9.0 D (8.4-10.2) mg/dL Magnesium 2.1 (1.6-2.6) mg/dL Total Bilirubin 0.4 (0.0-1.0) mg/dL Direct Bilirubin 0.2 (0.0-0.5) mg/dL AST 47 H D (5-37) U/L ALT 73 H (0-40) U/L Alkaline Phosphatase 63 (39-117) U/L Troponin I High Sens < 3.5 (<3.5-35.0) ng/L B-Natriuretic Peptide 24 (<100) pg/mL Total Protein 6.2 L (6.5-8.0) g/dL Albumin 4.0 (3.5-5.0) g/dL Lipase 6 L (8-78) U/L Salicylates < 5.0 L (15-30) mg/dL Acetaminophen < 1 (<30) mcg/mL Ethyl Alcohol mg/dL COVID-19 (LINK) (Negative) COVID-19 Clin Com 03/15/21 03/15/21 Range/Units 14:28 14:28 WBC (4.8-10.8) X10*3/uL RBC (4.60-5.80) X10*6/uL Hgb (14.0-18.0) g/dl Hct (42-52) % MCV (80-98) fL MCH (27.0-33.0) pg MCHC (31.0-36.0) g/dl RDW (11.0-16.0) % Plt Count (160-400) X10*3/uL MPV (9.4-12.4) fL Immature Gran % (Auto) (0.0-0.4) % Neut % (Auto) (45-73) % Lymph % (Auto) (20-40) % [place] % (Auto) (2-11) % Eos % (Auto) (0-4) % Baso % (Auto) (0-2) % Lymph # (Auto) (1.2-4.9) X10*3/uL [place] # (Auto) (0.1-1.2) X10*3/uL Eos # (Auto) (0.0-0.4) X10*3/uL Baso # (Auto) (0.0-0.2) X10*3/uL Abs Immat Gran (auto) (0.00-0.03) X10*3/uL Absolute Neuts (auto) (2.0-8.3) X10*3/uL Absolute Nucleated RBC (0.0-0.012) X10*3/uL Nucleated RBC % (auto) (0.0-0.2) /100WBC Sodium (135-145) mmol/L Potassium (3.3-5.1) mmol/L Chloride (96-108) mmol/L Carbon Dioxide (22-29) mmol/L Anion Gap (12-20) BUN (9-16) mg/dL Creatinine (0.5-1.4) mg/dL Estim Creat Clear Calc Estimated GFR Random Glucose (60-115) mg/dL Calcium (8.4-10.2) mg/dL Magnesium (1.6-2.6) mg/dL Total Bilirubin (0.0-1.0) mg/dL Direct Bilirubin (0.0-0.5) mg/dL AST (5-37) U/L ALT (0-40) U/L Alkaline Phosphatase (39-117) U/L Troponin I High Sens (<3.5-35.0) ng/L B-Natriuretic Peptide (<100) pg/mL Total Protein (6.5-8.0) g/dL Albumin (3.5-5.0) g/dL Lipase (8-78) U/L Salicylates (15-30) mg/dL Acetaminophen (<30) mcg/mL Ethyl Alcohol < 10 mg/dL COVID-19 (LINK) Negative (Negative) COVID-19 Clin Com See Note ECG Data Interpretation: Normal sinus rhythm at 67 beats per minutes, normal intervals, no ST-T changes. Critical Care Time Critical Care Time Critical Care Time: Yes Total Critical Care Time: 60 Attestation: I spent 60 minutes providing critical care service to the patient, this including time spent at the bedside to evaluate the patient, reassess the patient, monitoring vital signs, review labs, and radiographic studies, counseling the patient/family, discussing the case with consultants, disposition the patient. Discharge Plan Discharge Clinical Impression: Alcohol withdrawal Drug overdose Qualifiers: Encounter type: initial encounter Injury intent: intentional self-harm Qualified Code(s): T50.902A - Poisoning by unspecified drugs, medicaments and biological substances, intentional self-harm, initial encounter Patient Disposition: Admitted As Inpatient
[2021-03-15] MEDS: Activated charcoaL 50 GM/240 ML ORAL.SUSP 100 GM PO (14:29)
[2021-03-15 14:35] LABS: MANUAL DIFF FLAG NO
[2021-03-15 14:36] LABS: Basophils Absolute Auto 0.1 X10*3/uL (0.0-0.2); Basophils Percent Auto 0.9 % (0-2); Eosinophils Absolute Auto 0.1 X10*3/uL (0.0-0.4); Eosinophils Percent Auto 1.7 % (0-4); Hematocrit 35.5 % (42-52); Hemoglobin 12.5 g/dl (14.0-18.0); Imm Gran Abs Auto 0.02 X10*3/uL (0.00-0.03); Imm Gran Pct Auto 0.3 % (0.0-0.4); Lymphocytes Absolute Auto 0.9 X10*3/uL (1.2-4.9); Lymphocytes Percent Auto 14.9 % (20-40); Mean Corpuscular HGB Conc 35.2 g/dl (31.0-36.0); Mean Corpuscular Hemoglobin 30.4 pg (27.0-33.0); Mean Corpuscular Volume 86.4 fL (80-98); Mean Platelet Volume 9.9 fL (9.4-12.4); Monocytes Absolute Auto 0.5 X10*3/uL (0.1-1.2); Monocytes Percent Auto 8.9 % (2-11); Neutrophils Absolute Auto 4.3 X10*3/uL (2.0-8.3); Neutrophils Percent Auto 73.3 % (45-73); Platelet Count 203 X10*3/uL (160-400); Red Blood Count 4.11 X10*6/uL (4.60-5.80); Red Cell Distribution Width 13.3 % (11.0-16.0); White Blood Count 5.8 X10*3/uL (4.8-10.8)
--- NOTE | 2021-03-15 14:47 | PHA.MEDREC ---
Pharmacy Consult ? Medication Reconciliation Pharmacy has completed the medication reconciliation Patient has not had his suboxone for 5 days, may want to consider lowering the dose. He reports not taking all of his medications in a while. Mary Mcallister, ArianeD
[2021-03-15 14:51] LABS: Ethanol < 10 mg/dL
[2021-03-15 15:00] LABS: B Type Natriuretic Peptide 24 pg/mL (<100); Troponin-I High Sensitivity < 3.5 ng/L (<3.5-35.0)
[2021-03-15 15:02] LABS: Acetaminophen LAB < 1 mcg/mL (<30); Alanine Aminotransferase 73 U/L (0-40); Alkaline Phosphatase 63 U/L (39-117); Anion Gap 12 (12-20); Aspartate Amino Transferase 47 U/L (5-37); Bilirubin Direct 0.2 mg/dL (0.0-0.5); Bilirubin Total 0.4 mg/dL (0.0-1.0); Blood Urea Nitrogen 11 mg/dL (9-16); Carbon Dioxide 26 mmol/L (22-29); Chloride 105 mmol/L (96-108); Creatinine Clr Calc Pharmacy 121.3; Estimated Glomerular Filt Rate > 60; Glucose Random 104 mg/dL (60-115); Lipase 6 U/L (8-78); Magnesium 2.1 mg/dL (1.6-2.6); Potassium 3.7 mmol/L (3.3-5.1); Salicylate < 5.0 mg/dL (15-30); Sodium 139 mmol/L (135-145); Total Protein 6.2 g/dL (6.5-8.0)
[2021-03-15] MEDS: 0.9 % Sodium Chloride 1,000 ML 999 ML IVCONT ×2 (15:04→16:44)
[2021-03-15 15:11] LABS: COVID-19 Test Negative (Negative)
--- NOTE | 2021-03-15 15:13 | MHC.CARE ---
Please consult CARE Team when medically cleared for crisis assessment.
[2021-03-15] MEDS: LORazepam 2 MG/ML VIAL 1 MG IVPUSH (16:44)
--- NOTE | 2021-03-15 16:49 | P.HPHOSP_ITS ---
History of Present Illness Date of Service: 03/15/21 Attending physician on admission: Vamsi Washington Chief Complaint: walbuterin overdose , alcohol withdrawal 50-year-old male with history of depression, alcohol abuse and heroin snorting- he said from last for 5 days he got some extra money-havingextra money which put stress on him: He has relapsed with binge drinking, heroin snorting, in addition end up taking almost 20 pills of Wellbutrin, he is feeling depressed with suicidal. He said he also stop taking Suboxone . Patient says has nausea. Denies any new complaint of chest pain or shortness of breath or abdominal pain or fever or chills or vomiting Denies any cough Denies any weakness or numbness. Review of Systems Review of Systems: as above. Yes all other systems are reviewed and are negative [facility] Medical History Alcohol dependence Alcohol use disorder Anxiety Chronic post-traumatic stress disorder (PTSD) Depression EtOH dependence Hepatitis C antibody positive in blood MDD (major depressive disorder), recurrent episode, severe Family History Mother Diabetes mellitus Father Leukemia Pertinent family history: mother -dm Surgical History History of mandibular surgery Social History Household Members: Unknown / Unable to assess Household Members Other:: People he met in the community Housing: Homeless Housing Other:: Pt recently lost housing. Friend who had lived with him recently . Do you presently have visiting nurse or other home services: No Unable to assess alcohol history related to: Unknown Alcohol intake: current Alcohol intake frequency: 3 or more drinks per day Alcohol type: beer and hard liquor Patient Tobacco Use Status: Current everyday Tobacco user Tobacco use type: Cigarette Cigarette Packs Per Day: 1 Cigarettes Per Day: 20.0 Years Smoked: 10+ e-Cigarette/Vaping Use: Never Used Use of substances other than those prescribed or required for medical reasons: Yes Substance Use Type: Crack/Cocaine and Heroin Advance Directives: No Advance Directives Information Provided: No service: No Current occupational status: unemployed Sexual orientation: Straight/Heterosexual Meds Allergies Allergy/AdvReac Type Severity Reaction Status Date / Time No Known Allergies Allergy Verified 12/28/20 21:57 [No Known Allergies*] Active Medications: Current Medications Enoxaparin Sodium (Enoxaparin Sodium 40 Mg/0.4 Ml Syringe) 40 mg SUBCUT Q24H [facility] Folic Acid (Folic Acid 1 Mg Tablet) 1 mg PO DAILY [facility] Lactated Ringer's (Lr) 1,000 mls @ 80 mls/hr IVCONT .[id number] [facility] Pharmacy Consult (Consult Rx Perform Med Rec) 1 each MISCELLANE ONCE PRN PRN Reason: Consult order Pharmacy Consult (Consult Rx Perform Med Rec) 1 each MISCELLANE ONCE PRN PRN Reason: Consult order Sodium Chloride (0.9 % Sodium Chloride Flush 3 Ml Syringe) 3 ml IVFLUSH QSHIFT [facility] Thiamine HCl (Thiamine Hcl 100 Mg Tablet) 100 mg PO DAILY [facility] Home Medications Medication Instructions Recorded Confirmed Last Taken Type buprenorphine 8 mg-naloxone 2 mg 1 film SUBLINGUAL BID 03/15/21 03/15/21 03/10/21 History sublingual film (Suboxone) quetiapine 100 mg tablet (Seroquel) 100 mg PO BEDTIME 03/15/21 03/15/21 Unknown History Physical Exam Vital Signs and Narrative: Vital Signs: Last Vital Signs Temp 98.4 F 03/15/21 13:50 Pulse 72 03/15/21 13:50 Resp 18 03/15/21 13:50 BP 118/67 03/15/21 13:50 Pulse Ox 98 03/15/21 13:50 Body Mass Index 29.3 Physical exam: Appearance: Alert.? Oriented X3.? not in distress.? Eyes: Pupils equal, round and reactive to light.? Sclera nonicteric.? ENT: Pharynx normal.? Moist mucous membranes. cvs: rrr, [id number] , no murmur res: clear to auscultation ,no rhonchii or wheezing abd: no rebound or guarding ,nt, bs present. ext pulses present , no cyanosis . neuro: axo3 , nonfocal, has mild tremers. psych: seems depressed. Results Labs CBC and Chem 7: 03/15/21 14:28 03/15/21 14:28 Labs: Laboratory Results - last 24 hr 03/15/21 03/15/21 03/15/21 14:28 14:28 14:28 MCV 86.4 MCH 30.4 MCHC 35.2 RDW 13.3 Plt Count 203 MPV 9.9 Immature Gran % (Auto) 0.3 Neut % (Auto) 73.3 H Lymph % (Auto) 14.9 L [place] % (Auto) 8.9 Eos % (Auto) 1.7 Baso % (Auto) 0.9 Lymph # (Auto) 0.9 L [place] # (Auto) 0.5 Eos # (Auto) 0.1 Baso # (Auto) 0.1 Abs Immat Gran (auto) 0.02 Absolute Neuts (auto) 4.3 Absolute Nucleated RBC 0.000 Nucleated RBC % (auto) 0.0 Anion Gap 12 Estim Creat Clear Calc 121.3 Estimated GFR > 60 Random Glucose 104 Calcium 9.0 D Magnesium 2.1 Total Bilirubin 0.4 Direct Bilirubin 0.2 AST 47 H D ALT 73 H Alkaline Phosphatase 63 Troponin I High Sens < 3.5 B-Natriuretic Peptide 24 Total Protein 6.2 L Albumin 4.0 Lipase 6 L Salicylates < 5.0 L Acetaminophen < 1 Ethyl Alcohol COVID-19 (LINK) COVID-Networked Organisms 03/15/21 03/15/21 14:28 14:28 MCV MCH MCHC RDW Plt Count MPV Immature Gran % (Auto) Neut % (Auto) Lymph % (Auto) [place] % (Auto) Eos % (Auto) Baso % (Auto) Lymph # (Auto) [place] # (Auto) Eos # (Auto) Baso # (Auto) Abs Immat Gran (auto) Absolute Neuts (auto) Absolute Nucleated RBC Nucleated RBC % (auto) Anion Gap Estim Creat Clear Calc Estimated GFR Random Glucose Calcium Magnesium Total Bilirubin Direct Bilirubin AST ALT Alkaline Phosphatase Troponin I High Sens B-Natriuretic Peptide Total Protein Albumin Lipase Salicylates Acetaminophen Ethyl Alcohol < 10 COVID-19 (LINK) Negative COVID-Networked Organisms See Note Assessment and Plan (1) Drug overdose: Qualifiers: Encounter type: initial encounter Injury intent: intentional self-harm Qualified Code(s): T50.902A - Poisoning by unspecified drugs, medicaments and biological substances, intentional self-harm, initial encounter Status: Acute (2) Alcohol withdrawal: Status: Acute 1. Wellbutrin overdose Lab imaging and EKG personally reviewed and interpreted Has mildly elevated AST 47 and ALT 73 H&H 12.5/35.5 EKG shows QTC of 456, NSR Serial EKGs every 4 hours, monitor QRS>100/QT>500prolongation - please call the poision control-consider bicarb/bicarb drip, activated charcoal, check labs, watch for seizure, one-to-one sitter, which for alcohol withdrawal, 24 hours monitoring. Due to suicidal ideation-patient will need BH and clearance before discharge. 2. Alcohol withdrawal: Has mild tremors, CIWA scale added, thiamine and folic acid, Electrolytes araya potassium is 3.7, magnesium 2.1 Added small dose of potassium 20 mEq Patient cannot tolerate phenobarb so started on Ativan 3. History of drug use: May need to start back Suboxone once medication is r econciled. Urine drug screen 4. DVT prophylaxis: SubQ Lovenox Above management discussed with the patient in detail length he understand and in agreement with the above plan including Wellbutrin overdose monitoring as well as alcohol withdrawals treatment, code status discussed also patient is f ull code. Time spent 70 minutes. Quality Stroke Does the patient have a stroke diagnosis?: No VTE Prior VTE?: No VTE Risk Level:: Medical - moderate - high VTE Device Contraindication: N/A - Device Ordered VTE Drug Contraindication: N/A - Med Ordered
[2021-03-15] MEDS: Enoxaparin Sodium 40 MG/0.4 ML SYRINGE SUBCUT (16:53)
[2021-03-15] MEDS: Thiamine HCL 100 MG TABLET PO (16:54)
[2021-03-15] MEDS: Folic Acid 1 MG TABLET PO (16:54)
[2021-03-15] MEDS: Potassium Chloride Packet 20 MEQ PACKET PO (16:54)
--- NOTE | 2021-03-15 18:00 | ECG_ITS ---
Test Reason : REPEAT Blood Pressure : / mmHG Vent. Rate : 069 BPM Atrial Rate : 069 BPM P-R Int : 142 ms QRS Dur : 092 ms QT Int : 442 ms P-R-T Axes : 056 000 012 degrees QTc Int : 473 ms Normal sinus rhythm Normal ECG No significant changes seen Referred By: Loni Justin Electronically Signed By:JESSICA PICKERING MD
--- NOTE | 2021-03-15 18:34 | PC.NURSE ---
Poison control called at 1400. made aware of meds taken, VS, ekg, and assessment. Recommend Activated charcoal within next hour; gave at 1429. Cardiac monitoring, Q 4 EKGs to monitor QRS. State if QRS prolonged over 120, give Bicarb challenge. States if this works, start a Bicarb gtt. Recommend monitoring patient for 24 hours. State if he has seizures, tremors, or hyperrflexia start patient on Benzos.
--- NOTE | 2021-03-15 18:37 | PC.NURSE ---
IV placed in patients L.jugular by ED physician. Patient A+ox4. States he drinks alcohol and has withdrawn from alcohol in past. States he drank 15 beers yesterday and had 1 nip today. VSS. 1:1 sitter.
[2021-03-15] MEDS: Lactated Ringers 1,000 ML 80 ML IVCONT (18:46)
[2021-03-15] MEDS: Buprenorphine/Naloxone 8/2 mg FILM 1 FILM SUBLINGUAL (18:47)
--- NOTE | 2021-03-15 19:29 | PC.NURSE ---
Poison controlled for update on labs and repeat EKG. Updated.
[2021-03-15] MEDS: LORazepam 1 MG TABLET PO ×3 (19:39→22:53)
--- NOTE | 2021-03-15 20:36 | MHC.CM.PN ---
CM met with admitted patient with bed assignment 487. Pt here with SI and intentional OD. Pt is homeless and states is couch surfing at friends. PCP is Caitlyn Greenberg at [facility]. No HCP on file. Education provided, pt declines at this time. Pt is fully vaccinated with Moderna. Pt is hoping for inpatient psych placement when medically cleared. Pt interested in substance abuse help. Pt uses crack cocaine, heroin and alcohol. Pt pleasant and cooperative. Will need Behavioral health consult when medically cleared and CARE team consult. CM to follow for d/c needs.
[2021-03-15 21:25] VITALS: BP 118/64; PULSE 75; RESP 20; TEMP 37.3; O2SAT 93
[2021-03-15] MEDS: 0.9 % Sodium Chloride Flush 3 ML SYRINGE IVFLUSH (22:54)
[2021-03-15 23:33] VITALS: BP 120/71; PULSE 73; RESP 18; TEMP 37.1; O2SAT 94
--- NOTE | 2021-03-16 | ECG_ITS ---
Test Reason : MD ORDER Blood Pressure : / mmHG Vent. Rate : 069 BPM Atrial Rate : 069 BPM P-R Int : 140 ms QRS Dur : 092 ms QT Int : 418 ms P-R-T Axes : 051 017 031 degrees QTc Int : 447 ms Normal sinus rhythm Nonspecific T wave abnormality Abnormal ECG No significant changes seen Referred By: Loni Justin Electronically Signed By:JESSICA PICKERING MD
[2021-03-16] MEDS: LORazepam 1 MG TABLET PO ×6 (02:32→20:47)
[2021-03-16 03:46] VITALS: BP 120/71; PULSE 70; RESP 18; TEMP 36.9; O2SAT 95
[2021-03-16 06:14] LABS: Anion Gap 9 (12-20); Blood Urea Nitrogen 10 mg/dL (9-16); Calcium 8.4 mg/dL (8.4-10.2); Carbon Dioxide 27 mmol/L (22-29); Chloride 108 mmol/L (96-108); Creatinine Clr Calc Pharmacy 103.2; Estimated Glomerular Filt Rate > 60; Glucose Random 106 mg/dL (60-115); Magnesium 1.9 mg/dL (1.6-2.6); Potassium 3.8 mmol/L (3.3-5.1); Sodium 140 mmol/L (135-145)
[2021-03-16 08:00] VITALS: BP 126/77; PULSE 68; RESP 18; TEMP 36.9; O2SAT 95
[2021-03-16 08:35] LABS: Alanine Aminotransferase 51 U/L (0-40); Albumin Level 3.3 g/dL (3.5-5.0); Alkaline Phosphatase 54 U/L (39-117); Aspartate Amino Transferase 25 U/L (5-37); Bilirubin Direct < 0.2 mg/dL (0.0-0.5); Bilirubin Total 0.2 mg/dL (0.0-1.0); Total Protein 5.1 g/dL (6.5-8.0)
[2021-03-16] MEDS: Potassium Chloride Packet 20 MEQ PACKET PO (09:15)
[2021-03-16] MEDS: Thiamine HCL 100 MG TABLET PO (09:15)
[2021-03-16] MEDS: Magnesium Oxide 400 MG TABLET 800 MG PO ×2 (09:15→17:15)
[2021-03-16] MEDS: Folic Acid 1 MG TABLET PO (09:16)
[2021-03-16] MEDS: 0.9 % Sodium Chloride Flush 3 ML SYRINGE IVFLUSH ×2 (09:16→20:49)
[2021-03-16] MEDS: Buprenorphine/Naloxone 8/2 mg FILM 1 FILM SUBLINGUAL ×2 (09:16→20:47)
[2021-03-16] MEDS: LORazepam 2 MG/ML VIAL IVPUSH (10:54)
--- NOTE | 2021-03-16 11:12 | ECG_ITS ---
Test Reason : QTC MONITORING Blood Pressure : / mmHG Vent. Rate : 065 BPM Atrial Rate : 065 BPM P-R Int : 140 ms QRS Dur : 086 ms QT Int : 418 ms P-R-T Axes : 051 014 006 degrees QTc Int : 434 ms Normal sinus rhythm Normal ECG No significant changes seen Referred By: Vamsi Washington Electronically Signed By:JESSICA PICKERING MD
[2021-03-16] MEDS: Promethazine HCL 25 MG TABLET PO (11:56)
[2021-03-16 12:00] VITALS: BP 123/87; PULSE 66; RESP 18; TEMP 36.8; O2SAT 94
--- NOTE | 2021-03-16 12:50 | HO.PM.IMPN ---
Subjective Subjective Date of Service: 03/16/21 Interval History: walbuterin overdose , alcohol withdrawal Review of Systems Still having tremors, anxious Denies any chest pain or shortness of breath or abdominal pain or fever chills Physical Exam Vital Signs: Vital Signs: Last Vital Signs Temp 98.3 F 03/16/21 12:00 Pulse 66 03/16/21 12:00 Resp 18 03/16/21 12:00 BP 123/87 03/16/21 12:00 Pulse Ox 94 03/16/21 12:00 Body Mass Index 29.3 Appearance: Alert.? Oriented X3.? not in distress.? Eyes: Pupils equal, round and reactive to light.? Sclera nonicteric.? ENT: Pharynx normal.? Moist mucous membranes. cvs: rrr, [id number] , no murmur res: clear to auscultation ,no rhonchii or wheezing abd: no rebound or guarding ,nt, bs present. ext pulses present , no cyanosis . neuro: axo3 , nonfocal, has mild tremers. psych: seems depressed. Objective Data Active Medications Buprenorphine/Naloxone (Buprenorphine/Naloxone 8/2 Mg Film) 1 film SUBLINGUAL BID [facility] Last Admin: 03/16/21 09:16 Dose: 1 film Documented by: LILIANA Enoxaparin Sodium (Enoxaparin Sodium 40 Mg/0.4 Ml Syringe) 40 mg SUBCUT Q24H [facility] Last Admin: 03/15/21 16:53 Dose: 40 mg Documented by: ENMA Folic Acid (Folic Acid 1 Mg Tablet) 1 mg PO DAILY [facility] Last Admin: 03/16/21 09:16 Dose: 1 mg Documented by: LILIANA Lactated Ringer's (Lr) 1,000 mls @ 80 mls/hr IVCONT .[id number] [facility] Last Admin: 03/16/21 04:12 Dose: Not Given Documented by: KAMALJIT Non-Admin Reason: IV Running Lorazepam (Lorazepam 1 Mg Tablet) 1 mg PO QID [facility] Last Admin: 03/16/21 09:15 Dose: 1 mg Documented by: LILIANA Lorazepam (Lorazepam 1 Mg Tablet) 1 mg PO Q2H PRN PRN Reason: Alcohol Withdrawal Last Admin: 03/16/21 06:39 Dose: 1 mg Documented by: KAMALJIT Magnesium Oxide (Magnesium Oxide 400 Mg Tablet) 800 mg PO BIDPC [facility] Last Admin: 03/16/21 09:15 Dose: 800 mg Documented by: LILIANA Pharmacy Consult (Consult Rx Perform Med Rec) 1 each MISCELLANE ONCE PRN PRN Reason: Consult order Pharmacy Consult (Consult Rx Perform Med Rec) 1 each MISCELLANE ONCE PRN PRN Reason: Consult order Promethazine HCl (Promethazine Hcl 25 Mg Tablet) 25 mg PO Q6H PRN PRN Reason: Nausea Last Admin: 03/16/21 11:56 Dose: 25 mg Documented by: LILIANA Sodium Chloride (0.9 % Sodium Chloride Flush 3 Ml Syringe) 3 ml IVFLUSH QSHIFT [facility] Last Admin: 03/16/21 09:16 Dose: 3 ml Documented by: LILIANA Thiamine HCl (Thiamine Hcl 100 Mg Tablet) 100 mg PO DAILY [facility] Last Admin: 03/16/21 09:15 Dose: 100 mg Documented by: LILIANA Labs CBC & Chem 7: 03/15/21 14:28 03/16/21 05:32 Labs: Laboratory Results - last 24 hr 03/15/21 03/15/21 03/15/21 14:28 14:28 14:28 MCV 86.4 MCH 30.4 MCHC 35.2 RDW 13.3 Plt Count 203 MPV 9.9 Immature Gran % (Auto) 0.3 Neut % (Auto) 73.3 H Lymph % (Auto) 14.9 L [place] % (Auto) 8.9 Eos % (Auto) 1.7 Baso % (Auto) 0.9 Lymph # (Auto) 0.9 L [place] # (Auto) 0.5 Eos # (Auto) 0.1 Baso # (Auto) 0.1 Abs Immat Gran (auto) 0.02 Absolute Neuts (auto) 4.3 Absolute Nucleated RBC 0.000 Nucleated RBC % (auto) 0.0 Anion Gap 12 Estim Creat Clear Calc 121.3 Estimated GFR > 60 Random Glucose 104 Calcium 9.0 D Magnesium 2.1 Total Bilirubin 0.4 Direct Bilirubin 0.2 AST 47 H D ALT 73 H Alkaline Phosphatase 63 Troponin I High Sens < 3.5 B-Natriuretic Peptide 24 Total Protein 6.2 L Albumin 4.0 Lipase 6 L Salicylates < 5.0 L Acetaminophen < 1 Ethyl Alcohol COVID-19 (LINK) COVID-19 Clin Com 03/15/21 03/15/21 03/16/21 14:28 14:28 05:32 MCV MCH MCHC RDW Plt Count MPV Immature Gran % (Auto) Neut % (Auto) Lymph % (Auto) [place] % (Auto) Eos % (Auto) Baso % (Auto) Lymph # (Auto) [place] # (Auto) Eos # (Auto) Baso # (Auto) Abs Immat Gran (auto) Absolute Neuts (auto) Absolute Nucleated RBC Nucleated RBC % (auto) Anion Gap 9 L Estim Creat Clear Calc 103.2 Estimated GFR > 60 Random Glucose 106 Calcium 8.4 D Magnesium 1.9 Total Bilirubin 0.2 Direct Bilirubin < 0.2 AST 25 D ALT 51 H Alkaline Phosphatase 54 Troponin I High Sens B-Natriuretic Peptide Total Protein 5.1 L Albumin 3.3 L Lipase Salicylates Acetaminophen Ethyl Alcohol < 10 COVID-19 (LINK) Negative COVID-19 Clin Com See Note Assessment and Plan (1) Alcohol withdrawal: Status: Acute (2) Drug overdose: Status: Acute Assessment and Plan: 1. Wellbutrin overdose Lab imaging and EKG personally reviewed and interpreted Has mildly elevated AST 47 and ALT 73 H&H 12.5/35.5 EKG shows QTC of 434, qrs 88ms Serial EKGs every 4 hours, monitor QRS>100/QT>500prolongation - then will need bicarb drip, In ED given activated charcoal,watch for seizure, one-to-one sitter. Monitor renal function electrolytes Due to suicidal ideation-patient will need BH and clearance before discharge. 2. Alcohol withdrawal: Has tremor/anxious, CIWA scale added, thiamine and folic acid, Electrolytes araya potassium is 3.8, magnesium 1.9 Added small dose of potassium 20 mEq, also mag oxide added . Patient cannot tolerate phenobarb so started on Ativan, will give iv ativan 3. History of drug use:? May need to start back Suboxone once medication is reconciled. Urine drug screen 4. DVT prophylaxis:? SubQ Lovenox Quality Stroke Does the patient have a stroke diagnosis?: No VTE Prior VTE?: No VTE Risk Level:: Medical - moderate - high VTE Device Contraindication: N/A - Device Ordered VTE Drug Contraindication: N/A - Med Ordered
[2021-03-16] MEDS: Loperamide HCl 2 MG CAPSULE PO (14:06)
--- NOTE | 2021-03-16 14:51 | P.EN_ITS ---
Event Note Date of Service: 03/16/21 Event Note: Received consult request regarding substance use disorder. Upon a rrival to patient's room and after discussion with author agent, patient is already receiving Suboxone for opioid withdrawals with positive affect. He reports feeling comfortable at this time.
--- NOTE | 2021-03-16 14:51 | PM.EVENT ---
Event Note Date of Service: 03/16/21 Event Note: Received consult request regarding substance use disorder. Upon arrival to patient's room and after discussion with legal recovery specialist, patient is already receiving Suboxone for opioid withdrawals with positive affect. He reports feeling comfortable at this time.
[2021-03-16] MEDS: Enoxaparin Sodium 40 MG/0.4 ML SYRINGE SUBCUT (15:38)
[2021-03-16] MEDS: LORazepam 2 MG/ML VIAL 1 MG IV ×2 (15:39→23:57)
[2021-03-16] MEDS: Lactated Ringers 1,000 ML 80 ML IVCONT (15:41)
[2021-03-16 15:51] VITALS: BP 144/78; PULSE 72; RESP 18; TEMP 37.1; O2SAT 95
[2021-03-16 19:48] VITALS: BP 126/74; PULSE 71; RESP 16; TEMP 37.1; O2SAT 94
[2021-03-16 23:44] VITALS: BP 141/62; PULSE 70; RESP 18; TEMP 37; O2SAT 95
[2021-03-17 04:00] VITALS: BP 126/73; PULSE 64; RESP 20; TEMP 36.6; O2SAT 96
[2021-03-17 06:55] VITALS: BP 126/79; PULSE 59; RESP 18; TEMP 36.5; O2SAT 96
[2021-03-17 07:53] LABS: Anion Gap 11 (12-20); Blood Urea Nitrogen 10 mg/dL (9-16); Calcium 8.7 mg/dL (8.4-10.2); Carbon Dioxide 25 mmol/L (22-29); Chloride 104 mmol/L (96-108); Creatinine Clr Calc Pharmacy 128.4; Estimated Glomerular Filt Rate > 60; Glucose Random 106 mg/dL (60-115); Potassium 3.8 mmol/L (3.3-5.1); Sodium 136 mmol/L (135-145)
[2021-03-17] MEDS: Buprenorphine/Naloxone 8/2 mg FILM 1 FILM SUBLINGUAL ×2 (09:15→20:20)
[2021-03-17] MEDS: Magnesium Oxide 400 MG TABLET 800 MG PO ×2 (09:15→17:43)
[2021-03-17] MEDS: 0.9 % Sodium Chloride Flush 3 ML SYRINGE IVFLUSH ×3 (09:15→20:20)
[2021-03-17] MEDS: Thiamine HCL 100 MG TABLET PO (09:15)
[2021-03-17] MEDS: LORazepam 1 MG TABLET PO ×4 (09:15→20:20)
[2021-03-17] MEDS: Folic Acid 1 MG TABLET PO (09:15)
[2021-03-17] MEDS: LORazepam 2 MG/ML VIAL 1 MG IV ×4 (09:33→22:09)
--- NOTE | 2021-03-17 10:44 | P.PNIM_ITS ---
Subjective Subjective Date of Service: 03/17/21 Interval History: alcohol withdrawal, Walbutrin overdose Review of Systems seems still seems tramulous Denies any new complaint of chest pain or shortness of breath or abdominal pain or fever or chills or nausea or vomiting Denies any cough Denies any weakness or numbness. Physical Exam Vital Signs: Vital Signs: Last Vital Signs Temp 97.7 F 03/17/21 06:55 Pulse 59 03/17/21 06:55 Resp 18 03/17/21 06:55 BP 126/79 03/17/21 06:55 Pulse Ox 96 03/17/21 06:55 Body Mass Index 29.3 Appearance: Alert.? Oriented X3.? not in distress.? Eyes: Pupils equal, round and reactive to light.? Sclera nonicteric.? ENT: Pharynx normal.? Moist mucous membranes. cvs: rrr, [id number] , no murmur res: clear to auscultation ,no rhonchii or wheezing abd: no rebound or guarding ,nt, bs present. ext pulses present , no cyanosis . neuro: axo3 , nonfocal, has mild tremers. psych: seems depressed. Objective Data Active Medications Buprenorphine/Naloxone (Buprenorphine/Naloxone 8/2 Mg Film) 1 film SUBLINGUAL BID [facility] Last Admin: 03/17/21 09:15 Dose: 1 film Documented by: JORGE Enoxaparin Sodium (Enoxaparin Sodium 40 Mg/0.4 Ml Syringe) 40 mg SUBCUT Q24H [facility] Last Admin: 03/16/21 15:38 Dose: 40 mg Documented by: HAROLDO Folic Acid (Folic Acid 1 Mg Tablet) 1 mg PO DAILY [facility] Last Admin: 03/17/21 09:15 Dose: 1 mg Documented by: JORGE Lorazepam (Lorazepam 1 Mg Tablet) 1 mg PO QID [facility] Last Admin: 03/17/21 09:15 Dose: 1 mg Documented by: JORGE Lorazepam (Lorazepam 2 Mg/Ml Vial) 1 mg IV Q2H PRN PRN Reason: WITHDRAWAL SYMPTOMS Last Admin: 03/17/21 09:33 Dose: 1 mg Documented by: JORGE Magnesium Oxide (Magnesium Oxide 400 Mg Tablet) 800 mg PO BIDPC [facility] Last Admin: 03/17/21 09:15 Dose: 800 mg Documented by: JORGE Pharmacy Consult (Consult Rx Perform Med Rec) 1 each MISCELLANE ONCE PRN PRN Reason: Consult order Pharmacy Consult (Consult Rx Perform Med Rec) 1 each MISCELLANE ONCE PRN PRN Reason: Consult order Promethazine HCl (Promethazine Hcl 25 Mg Tablet) 25 mg PO Q6H PRN PRN Reason: Nausea Last Admin: 03/16/21 11:56 Dose: 25 mg Documented by: LILIANA Sodium Chloride (0.9 % Sodium Chloride Flush 3 Ml Syringe) 3 ml IVFLUSH QSHIFT [facility] Last Admin: 03/17/21 09:15 Dose: 3 ml Documented by: JORGE Thiamine HCl (Thiamine Hcl 100 Mg Tablet) 100 mg PO DAILY [facility] Last Admin: 03/17/21 09:15 Dose: 100 mg Documented by: JORGE Labs CBC & Chem 7: 03/15/21 14:28 03/17/21 06:49 Labs: Laboratory Results - last 24 hr 03/17/21 06:49 Anion Gap 11 L Estim Creat Clear Calc 128.4 Estimated GFR > 60 Random Glucose 106 Calcium 8.7 Assessment and Plan (1) Alcohol withdrawal: Status: Acute (2) Drug overdose: Status: Acute Assessment and Plan: 1. Wellbutrin overdose Lab imaging and EKG personally reviewed and interpreted Has mildly elevated AST 47 and ALT 73 H&H 12.5/35.5 EKG shows QTC of 434, qrs 88ms-seems fine tele seems fine In ED given activated charcoal,watch for seizure, one-to-one sitter. Monitor renal function electrolytes Due to suicidal ideation-patient will need BH and clearance before discharge. 2. Alcohol withdrawal: Has tremor/anxious, CIWA scale added, thiamine and folic acid, Electrolytes araya potassium is 3.8, magnesium 1.9 Added small dose of potassium 20 mEq, also mag oxide added . Patient cannot tolerate phenobarb so started on Ativan, will give iv ativan 3. History of drug use:? May need to start back Suboxone once medication is reconciled. Urine drug screen 4. DVT prophylaxis:? SubQ Lovenox Quality Stroke Does the patient have a stroke diagnosis?: No VTE Prior VTE?: No VTE Risk Level:: Medical - moderate - high VTE Device Contraindication: N/A - Device Ordered VTE Drug Contraindication: N/A - Med Ordered
[2021-03-17 10:49] VITALS: BP 143/77; PULSE 61; RESP 20; TEMP 36.4; O2SAT 95
[2021-03-17 11:20] LABS: Magnesium 2.1 mg/dL (1.6-2.6)
[2021-03-17] MEDS: LORazepam 2 MG/ML VIAL IVPUSH (11:43)
[2021-03-17] MEDS: Potassium Chloride Packet 20 MEQ PACKET PO (11:48)
[2021-03-17] MEDS: Gabapentin 400 MG CAPSULE 800 MG PO ×2 (14:49→20:20)
[2021-03-17] MEDS: Enoxaparin Sodium 40 MG/0.4 ML SYRINGE SUBCUT (15:20)
[2021-03-17 15:37] VITALS: BP 142/78; PULSE 68; RESP 16; TEMP 36.7; O2SAT 95
--- NOTE | 2021-03-17 17:14 | MHC.RECOVSUP ---
? Reason for consult:Recovery Support o?? Current location ?[facility] o?? Identified substance use concern ALCOHOL/COCAINE? ?? Support ? Intervention: o?? ATS bed search started/completed/in process o?? MAT started or to be started o?? Community resources provided o?? Harm reduction discussion ? Plan: o?? Referral to [facility] o?? Bed search in progress to o?? Follow up tomorrow? o?? Patient awaiting crisis evaluation o?? Patient to follow up with [facility] after discharge ? Additional information: ?Met with Pt. He states that he is interested in pursuing [facility].Also stated that he would be interested having a Animal Sitter .Also wants to know if it is possible to increase his suboxone .He is currently on 16mg once a day. Will make the referral for a coach driver.Spoke to Jose Alfredo about referral and med increase.Also will give info about [facility].
[2021-03-17 20:00] VITALS: BP 142/92; PULSE 72; RESP 16; TEMP 36; O2SAT 96
[2021-03-17 23:06] VITALS: BP 135/70; PULSE 71; RESP 18; O2SAT 96
[2021-03-18] VITALS (7 sets, daily range): BP systolic 128–156; BP diastolic 70–88; PULSE 67–71; RESP 16–18; TEMP 36.3–37.2; O2SAT 94–96
[2021-03-18] MEDS: LORazepam 2 MG/ML VIAL 1 MG IV ×2 (04:02→09:02)
[2021-03-18] MEDS: Buprenorphine/Naloxone 8/2 mg FILM 1 FILM SUBLINGUAL ×2 (09:02→20:51)
[2021-03-18] MEDS: 0.9 % Sodium Chloride Flush 3 ML SYRINGE IVFLUSH ×3 (09:03→20:51)
[2021-03-18] MEDS: Folic Acid 1 MG TABLET PO (09:03)
[2021-03-18] MEDS: Magnesium Oxide 400 MG TABLET 800 MG PO ×2 (09:03→16:12)
[2021-03-18] MEDS: LORazepam 1 MG TABLET PO ×3 (09:03→20:57)
[2021-03-18] MEDS: Thiamine HCL 100 MG TABLET PO (09:03)
[2021-03-18] MEDS: Gabapentin 400 MG CAPSULE 800 MG PO ×3 (09:03→20:51)
--- NOTE | 2021-03-18 12:08 | HO.PM.IMPN ---
Subjective Subjective Date of Service: 03/18/21 Interval History: Alcohol withdrawal, Wellbutrin overdose Review of Systems Patient still has significant tremor and she feels anxious Denies any chest pain or shortness of breath or abdominal pain or fever or chills or cough or phlegm. Physical Exam Vital Signs: Vital Signs: Last Vital Signs Temp 97.6 F 03/18/21 10:59 Pulse 67 03/18/21 10:59 Resp 18 03/18/21 10:59 BP 144/81 H 03/18/21 10:59 Pulse Ox 94 03/18/21 10:59 Body Mass Index 29.3 Appearance: Alert.? Oriented X3.? not in distress.? Eyes: Pupils equal, round and reactive to light.? Sclera nonicteric.? ENT: Pharynx normal.? Moist mucous membranes. cvs: rrr, [id number] , no murmur res: clear to auscultation ,no rhonchii or wheezing abd: no rebound or guarding ,nt, bs present. ext pulses present , no cyanosis . neuro: axo3 , nonfocal, moderate tremor, anxious. psych: seems depressed. Objective Data Active Medications Buprenorphine/Naloxone (Buprenorphine/Naloxone 8/2 Mg Film) 1 film SUBLINGUAL BID [facility] Last Admin: 03/18/21 09:02 Dose: 1 film Documented by: JORGE Clonidine (Clonidine 0.1 Mg Patch.Tdwk) 0.1 mg TRANSDERMA Bradley@0900 [facility]; Protocol Docusate Sodium (Docusate Sodium 100 Mg Capsule) 100 mg PO BEDTIME [facility] Enoxaparin Sodium (Enoxaparin Sodium 40 Mg/0.4 Ml Syringe) 40 mg SUBCUT Q24H [facility] Last Admin: 03/17/21 15:20 Dose: 40 mg Documented by: JORGE Folic Acid (Folic Acid 1 Mg Tablet) 1 mg PO DAILY [facility] Last Admin: 03/18/21 09:03 Dose: 1 mg Documented by: JORGE Gabapentin (Gabapentin 400 Mg Capsule) 800 mg PO TID [facility] Last Admin: 03/18/21 09:03 Dose: 800 mg Documented by: JORGE Lorazepam (Lorazepam 2 Mg/Ml Vial) 2 mg IV Q4H PRN PRN Reason: WITHDRAWAL SYMPTOMS Magnesium Oxide (Magnesium Oxide 400 Mg Tablet) 800 mg PO BIDPC [facility] Last Admin: 03/18/21 09:03 Dose: 800 mg Documented by: JORGE Pharmacy Consult (Consult Rx Perform Med Rec) 1 each MISCELLANE ONCE PRN PRN Reason: Consult order Pharmacy Consult (Consult Rx Perform Med Rec) 1 each MISCELLANE ONCE PRN PRN Reason: Consult order Polyethylene Glycol (Polyethylene Glycol 3350 17 Gm Powd.Pack) 17 gm PO DAILY [facility] Promethazine HCl (Promethazine Hcl 25 Mg Tablet) 25 mg PO Q6H PRN PRN Reason: Nausea Last Admin: 03/16/21 11:56 Dose: 25 mg Documented by: LILIANA Sodium Chloride (0.9 % Sodium Chloride Flush 3 Ml Syringe) 3 ml IVFLUSH QSHIFT [facility] Last Admin: 03/18/21 09:03 Dose: 3 ml Documented by: JORGE Thiamine HCl (Thiamine Hcl 100 Mg Tablet) 100 mg PO DAILY [facility] Last Admin: 03/18/21 09:03 Dose: 100 mg Documented by: JORGE Labs CBC & Chem 7: 03/15/21 14:28 03/17/21 06:49 Assessment and Plan (1) Alcohol withdrawal: Status: Acute Assessment and Plan: 1. Wellbutrin overdose Lab imaging and EKG personally reviewed and interpreted Has mildly elevated AST 47 and ALT 73 H&H 12.5/35.5 EKG shows QTC of 434, qrs 88ms-seems fine tele seems fine In ED given activated charcoal,watch for seizure, one-to-one sitter. Monitor renal function electrolytes Due to suicidal ideation-patient will need BH and clearance before discharge. 2. Alcohol withdrawal: Has tremor/anxious, CIWA scale added, thiamine and folic acid, Electrolytes araya potassium is 3.8, magnesium 1.9 Added small dose of potassium 20 mEq, also mag oxide added . Patient cannot tolerate phenobarb so started on Ativan, adjusted iv ativan 2 mg q4hr prn , added clonidine . Monitor respiratory and mental status clossarahy while on ativan . 3. History of drug use:? May need to start back Suboxone once medication is reconciled. Urine drug screen 4. DVT prophylaxis:? SubQ Lovenox Quality Stroke Does the patient have a stroke diagnosis?: No VTE Prior VTE?: No VTE Risk Level:: Medical - moderate - high VTE Device Contraindication: N/A - Device Ordered VTE Drug Contraindication: N/A - Med Ordered
[2021-03-18] MEDS: LORazepam 2 MG/ML VIAL IVPUSH (12:34)
[2021-03-18] MEDS: Enoxaparin Sodium 40 MG/0.4 ML SYRINGE SUBCUT (16:11)
[2021-03-18] MEDS: LORazepam 2 MG/ML VIAL IV ×2 (16:13→20:57)
[2021-03-18] MEDS: Docusate Sodium 100 MG CAPSULE PO (20:51)
[2021-03-19 04:00] VITALS: BP 147/52; PULSE 72; RESP 18; TEMP 36.4; O2SAT 97
[2021-03-19 08:00] VITALS: BP 135/78; PULSE 64; RESP 18; TEMP 37; O2SAT 96
[2021-03-19] MEDS: LORazepam 2 MG/ML VIAL IV (10:15)
[2021-03-19] MEDS: Gabapentin 400 MG CAPSULE 800 MG PO ×3 (10:16→19:51)
[2021-03-19] MEDS: Buprenorphine/Naloxone 8/2 mg FILM 1 FILM SUBLINGUAL ×2 (10:16→19:51)
[2021-03-19] MEDS: Folic Acid 1 MG TABLET PO (10:17)
[2021-03-19] MEDS: LORazepam 1 MG TABLET PO ×3 (10:17→20:49)
[2021-03-19] MEDS: Magnesium Oxide 400 MG TABLET 800 MG PO ×2 (10:17→16:35)
[2021-03-19] MEDS: Thiamine HCL 100 MG TABLET PO (10:17)
[2021-03-19] MEDS: 0.9 % Sodium Chloride Flush 3 ML SYRINGE IVFLUSH ×3 (10:18→19:52)
[2021-03-19] MEDS: polyethylene glycoL 3350 17 GM POWD.PACK PO (10:18)
--- NOTE | 2021-03-19 11:29 | P.PNIM_ITS ---
Subjective Subjective Date of Service: 03/19/21 Interval History: alcohol withdrawal Review of Systems Still feel anxious and tremulous Denies any new complaint of chest pain or shortness of breath or abdominal pain or fever or chills or nausea or vomiting Denies any cough or weakness or numbness. Physical Exam Vital Signs: Vital Signs: Last Vital Signs Temp 98.6 F 03/19/21 08:00 Pulse 64 03/19/21 08:00 Resp 18 03/19/21 08:00 BP 135/78 03/19/21 08:00 Pulse Ox 96 03/19/21 08:00 Body Mass Index 29.3 ?Appearance: not in distress. cvs: rrr, [id number] , no murmur res: clear to auscultation ,no rhonchii or wheezing abd: no rebound or guarding ,nt, bs present. ext pulses present , no cyanosis . neuro: axo3 , nonfocal, moderate tremor, anxious. psych: seems depressed. Objective Data Active Medications Buprenorphine/Naloxone (Buprenorphine/Naloxone 8/2 Mg Film) 1 film SUBLINGUAL BID [facility] Last Admin: 03/19/21 10:16 Dose: 1 film Documented by: ARNAUD Clonidine (Clonidine 0.1 Mg Patch.Tdwk) 0.1 mg TRANSDERMA Bradley@0900 [facility]; Protocol Docusate Sodium (Docusate Sodium 100 Mg Capsule) 100 mg PO BEDTIME [facility] Last Admin: 03/18/21 20:51 Dose: 100 mg Documented by: LEXI Enoxaparin Sodium (Enoxaparin Sodium 40 Mg/0.4 Ml Syringe) 40 mg SUBCUT Q24H [facility] Last Admin: 03/18/21 16:11 Dose: 40 mg Documented by: JORGE Folic Acid (Folic Acid 1 Mg Tablet) 1 mg PO DAILY [facility] Last Admin: 03/19/21 10:17 Dose: 1 mg Documented by: ARNAUD Gabapentin (Gabapentin 400 Mg Capsule) 800 mg PO TID [facility] Last Admin: 03/19/21 10:16 Dose: 800 mg Documented by: ARNAUD Lorazepam (Lorazepam 2 Mg/Ml Vial) 2 mg IV Q4H PRN PRN Reason: WITHDRAWAL SYMPTOMS Last Admin: 03/19/21 10:15 Dose: 2 mg Documented by: ARNAUD Lorazepam (Lorazepam 1 Mg Tablet) 1 mg PO Q4H PRN PRN Reason: Anxiety Last Admin: 03/19/21 10:17 Dose: 1 mg Documented by: ARNAUD Magnesium Oxide (Magnesium Oxide 400 Mg Tablet) 800 mg PO BIDPC [facility] Last Admin: 03/19/21 10:17 Dose: 800 mg Documented by: ARNAUD Pharmacy Consult (Consult Rx Perform Med Rec) 1 each MISCELLANE ONCE PRN PRN Reason: Consult order Pharmacy Consult (Consult Rx Perform Med Rec) 1 each MISCELLANE ONCE PRN PRN Reason: Consult order Polyethylene Glycol (Polyethylene Glycol 3350 17 Gm Powd.Pack) 17 gm PO DAILY [facility] Last Admin: 03/19/21 10:18 Dose: 17 gm Documented by: ARNAUD Promethazine HCl (Promethazine Hcl 25 Mg Tablet) 25 mg PO Q6H PRN PRN Reason: Nausea Last Admin: 03/16/21 11:56 Dose: 25 mg Documented by: LILIANA Sodium Chloride (0.9 % Sodium Chloride Flush 3 Ml Syringe) 3 ml IVFLUSH QSHIFT [facility] Last Admin: 03/19/21 10:18 Dose: 3 ml Documented by: ARNAUD Thiamine HCl (Thiamine Hcl 100 Mg Tablet) 100 mg PO DAILY [facility] Last Admin: 03/19/21 10:17 Dose: 100 mg Documented by: ARNAUD Labs CBC & Chem 7: 03/15/21 14:28 03/17/21 06:49 Assessment and Plan (1) Drug overdose: Status: Acute (2) Alcohol withdrawal: Status: Acute Assessment and Plan: 1. Wellbutrin overdose Lab imaging and EKG personally reviewed and interpreted H&H 12.5/35.5 tele seems fine In ED given activated charcoal,watch for seizure, one-to-one sitter. Monitor renal function electrolytes Due to suicidal ideation-patient will need BHN and clearance before discharge. 2. Alcohol withdrawal:seems improving sightly today Has mildly elevated AST 47 and ALT 73 intially but repeated seems improving Has tremor/anxious, CIWA scale added, thiamine and folic acid, moniter electrolytes Patient cannot tolerate phenobarb so started on Ativan, adjusted iv ativan 2 mg q4hr prn , added clonidine . Monitor respiratory and mental status? jorge while on ativan . 3. History of drug use:? May need to start back Suboxone once medication is reconciled. 4. DVT prophylaxis:? SubQ Lovenox Quality Stroke Does the patient have a stroke diagnosis?: No VTE Prior VTE?: No VTE Risk Level:: Medical - moderate - high VTE Device Contraindication: N/A - Device Ordered VTE Drug Contraindication: N/A - Med Ordered
[2021-03-19 12:00] VITALS: BP 136/76; PULSE 70; RESP 18; TEMP 36.7; O2SAT 94
--- NOTE | 2021-03-19 15:09 | MHC.CM.PN ---
Male 50 DX OD ETOH WD No discharge planned today. Patient is still requiring ativan for withdrawal ss. Recovery team consult placed. DP per recovery team.
[2021-03-19 15:26] VITALS: BP 156/81; PULSE 69; RESP 18; TEMP 36.5; O2SAT 97
[2021-03-19] MEDS: LORazepam 1 MG TABLET 2 MG PO ×2 (16:27→20:49)
[2021-03-19] MEDS: Enoxaparin Sodium 40 MG/0.4 ML SYRINGE SUBCUT (16:28)
[2021-03-19 19:40] VITALS: BP 157/78; PULSE 71; RESP 16; TEMP 36.6; O2SAT 97
[2021-03-19] MEDS: Docusate Sodium 100 MG CAPSULE PO (19:51)
[2021-03-19 22:58] VITALS: BP 121/81; PULSE 68; RESP 18; TEMP 36.6; O2SAT 93
[2021-03-20] MEDS: LORazepam 1 MG TABLET PO ×4 (00:51→14:32)
[2021-03-20 03:26] VITALS: BP 137/73; PULSE 65; RESP 18; TEMP 36.4; O2SAT 98
[2021-03-20 07:19] LABS: Alanine Aminotransferase 53 U/L (0-40); Albumin Level 3.9 g/dL (3.5-5.0); Alkaline Phosphatase 81 U/L (39-117); Anion Gap 13 (12-20); Aspartate Amino Transferase 21 U/L (5-37); Bilirubin Direct < 0.2 mg/dL (0.0-0.5); Bilirubin Total 0.2 mg/dL (0.0-1.0); Blood Urea Nitrogen 11 mg/dL (9-16); Calcium 8.9 mg/dL (8.4-10.2); Carbon Dioxide 26 mmol/L (22-29); Chloride 104 mmol/L (96-108); Creatinine Clr Calc Pharmacy 108.2; Estimated Glomerular Filt Rate > 60; Glucose Random 169 mg/dL (60-115); Potassium 3.9 mmol/L (3.3-5.1); Sodium 139 mmol/L (135-145); Total Protein 6.2 g/dL (6.5-8.0)
[2021-03-20 07:38] VITALS: BP 125/51; PULSE 60; RESP 17; TEMP 37.1; O2SAT 94
[2021-03-20] MEDS: Folic Acid 1 MG TABLET PO (09:25)
[2021-03-20] MEDS: Magnesium Oxide 400 MG TABLET 800 MG PO ×2 (09:25→17:05)
[2021-03-20] MEDS: Buprenorphine/Naloxone 8/2 mg FILM 1 FILM SUBLINGUAL ×2 (09:25→20:34)
[2021-03-20] MEDS: 0.9 % Sodium Chloride Flush 3 ML SYRINGE IVFLUSH ×3 (09:25→20:34)
[2021-03-20] MEDS: Gabapentin 400 MG CAPSULE 800 MG PO ×3 (09:25→20:34)
[2021-03-20] MEDS: Thiamine HCL 100 MG TABLET PO (09:25)
[2021-03-20 16:00] VITALS: BP 135/67; PULSE 65; RESP 20; TEMP 36.6; O2SAT 97
[2021-03-20] MEDS: Enoxaparin Sodium 40 MG/0.4 ML SYRINGE SUBCUT (17:05)
--- NOTE | 2021-03-20 17:09 | HO.PM.IMPN ---
Subjective Subjective Date of Service: 03/20/21 Interval History: Being followed for alcohol withdrawal and Wellbutrin overdose, patient complaining of anxiety symptoms was receiving Ativan 2 mg with good control but since last night Ativan has been tapered down to 1 mg q.6 hours as needed, all his anxiolytics and antidepressants are on hold. Review of Systems General no headache, no dizziness, no fever chills. CVS no chest pain, no palpitation. Respiratory no cough, no sob. Gastrointestinal no nausea, no vomiting, no abdominal pain Review of Systems: Yes all other systems are reviewed and are negative Physical Exam Vital Signs: Vital Signs: Last Vital Signs Temp 97.8 F 03/20/21 16:00 Pulse 65 03/20/21 16:00 Resp 20 03/20/21 16:00 BP 135/67 03/20/21 16:00 Pulse Ox 97 03/20/21 16:00 Body Mass Index 29.3 General awake alert x3,no acute distress. Neck supple no JVD. CVS regular rate rhythm, Respiratory lungs clear to auscultation, no respiratory distress, no wheeze, no rhonchi. Gastrointestinal abdomen soft, nontender, bowel sounds audible, no guarding , no rigidity. Extremities no clubbing cyanosis or edema. Neuro nonfocal , speech clear. Skin no rash Psych anxious Objective Data Active Medications Buprenorphine/Naloxone (Buprenorphine/Naloxone 8/2 Mg Film) 1 film SUBLINGUAL BID [facility] Last Admin: 03/20/21 09:25 Dose: 1 film Documented by: MADELYN Clonidine (Clonidine 0.1 Mg Patch.Tdwk) 0.1 mg TRANSDERMA Bradley@0900 [facility]; Protocol Docusate Sodium (Docusate Sodium 100 Mg Capsule) 100 mg PO BEDTIME [facility] Last Admin: 03/19/21 19:51 Dose: 100 mg Documented by: ELROY Enoxaparin Sodium (Enoxaparin Sodium 40 Mg/0.4 Ml Syringe) 40 mg SUBCUT Q24H [facility] Last Admin: 03/20/21 17:05 Dose: 40 mg Documented by: MADELYN Folic Acid (Folic Acid 1 Mg Tablet) 1 mg PO DAILY [facility] Last Admin: 03/20/21 09:25 Dose: 1 mg Documented by: MADELYN Gabapentin (Gabapentin 400 Mg Capsule) 800 mg PO TID [facility] Last Admin: 03/20/21 14:32 Dose: 800 mg Documented by: MADELYN Lorazepam (Lorazepam 1 Mg Tablet) 1 mg PO Q4H PRN PRN Reason: Anxiety Last Admin: 03/20/21 14:32 Dose: 1 mg Documented by: MADELYN Magnesium Oxide (Magnesium Oxide 400 Mg Tablet) 800 mg PO BIDPC [facility] Last Admin: 03/20/21 17:05 Dose: 800 mg Documented by: MADELYN Pharmacy Consult (Consult Rx Perform Med Rec) 1 each MISCELLANE ONCE PRN PRN Reason: Consult order Pharmacy Consult (Consult Rx Perform Med Rec) 1 each MISCELLANE ONCE PRN PRN Reason: Consult order Polyethylene Glycol (Polyethylene Glycol 3350 17 Gm Powd.Pack) 17 gm PO DAILY [facility] Last Admin: 03/20/21 09:25 Dose: Not Given Documented by: MADELYN Non-Admin Reason: Patient Refused Promethazine HCl (Promethazine Hcl 25 Mg Tablet) 25 mg PO Q6H PRN PRN Reason: Nausea Last Admin: 03/16/21 11:56 Dose: 25 mg Documented by: LILIANA Sodium Chloride (0.9 % Sodium Chloride Flush 3 Ml Syringe) 3 ml IVFLUSH QSHIFT [facility] Last Admin: 03/20/21 17:05 Dose: 3 ml Documented by: MADELYN Thiamine HCl (Thiamine Hcl 100 Mg Tablet) 100 mg PO DAILY [facility] Last Admin: 03/20/21 09:25 Dose: 100 mg Documented by: MADELYN Labs CBC & Chem 7: 03/15/21 14:28 03/20/21 05:37 Labs: Laboratory Results - last 24 hr 03/20/21 05:37 Anion Gap 13 Estim Creat Clear Calc 108.2 Estimated GFR > 60 Random Glucose 169 H D Calcium 8.9 Total Bilirubin 0.2 Direct Bilirubin < 0.2 AST 21 ALT 53 H Alkaline Phosphatase 81 D Total Protein 6.2 L D Albumin 3.9 Assessment and Plan (1) Alcohol withdrawal: Status: Acute (2) Drug overdose: Status: Acute (3) Chronic post-traumatic stress disorder (PTSD): Status: Acute (4) Alcohol use disorder: Status: Chronic (5) Opioid use disorder: Status: Chronic Assessment and Plan: 1. Wellbutrin overdose Patient complaining of anxiety otherwise denies chest pain shortness of breath, lightheadedness, or dizziness. Patient seen by N they recommend inpatient psych hospitalization, EKG with normal QTC, stable electrolytes. 2. Alcohol withdrawal: Patient complaining of anxiety otherwise denies tremor, continue thiamine and folic acid, Stable magnesium and electrolytes Patient cannot tolerate phenobarb so receiving as needed Ativan, likely persistent anxiety related to not being on home medication 3. History of drug use:? Continue Suboxone 4. History of anxiety/ depression all psych medications on hold, patient complaining of significant anxiety unable to sleep, will resume home medications including Seroquel 100 mg at bedtime, prazosin 2 mg at bedtime, and mid is a Pean 15 mg at bedtime, will place on Ativan 2 mg q.6 hours as needed, and will resume as needed hydroxyzine. 5. History of smoking will add nicotine patch 21mg daily since patient has history of smoking 1 pack per day. 4. DVT prophylaxis:? SubQ Lovenox Quality Stroke Does the patient have a stroke diagnosis?: No VTE Prior VTE?: No VTE Risk Level:: Medical - moderate - high VTE Device Contraindication: N/A - Device Ordered VTE Drug Contraindication: N/A - Med Ordered
[2021-03-20] MEDS: LORazepam 1 MG TABLET 2 MG PO (18:39)
[2021-03-20 19:46] VITALS: BP 167/86; PULSE 87; RESP 16; TEMP 36.1; O2SAT 96
[2021-03-20] MEDS: Mirtazapine 15 MG TABLET PO (20:33)
[2021-03-20] MEDS: Docusate Sodium 100 MG CAPSULE PO (20:33)
[2021-03-20 20:34] VITALS: BP 167/86; PULSE 78
[2021-03-20] MEDS: QUEtiapine Fumarate 100 MG TABLET PO (20:34)
[2021-03-20] MEDS: Prazosin HCL 1 MG CAPSULE 2 MG PO (20:34)
[2021-03-20 23:52] VITALS: BP 131/69; PULSE 82; RESP 18; TEMP 36.3; O2SAT 94
[2021-03-21 04:00] VITALS: BP 140/78; PULSE 71; RESP 18; TEMP 36.4; O2SAT 98
[2021-03-21 07:37] VITALS: BP 134/71; PULSE 71; RESP 18; TEMP 36.7; O2SAT 95
[2021-03-21] MEDS: Gabapentin 400 MG CAPSULE 800 MG PO ×2 (07:57→14:26)
[2021-03-21] MEDS: Thiamine HCL 100 MG TABLET PO (07:57)
[2021-03-21] MEDS: 0.9 % Sodium Chloride Flush 3 ML SYRINGE IVFLUSH ×2 (07:57→16:55)
[2021-03-21] MEDS: Folic Acid 1 MG TABLET PO (07:57)
[2021-03-21] MEDS: LORazepam 1 MG TABLET 2 MG PO ×2 (07:57→14:26)
[2021-03-21] MEDS: Magnesium Oxide 400 MG TABLET 800 MG PO ×2 (07:57→16:51)
[2021-03-21] MEDS: Buprenorphine/Naloxone 8/2 mg FILM 1 FILM SUBLINGUAL ×2 (07:58→16:51)
[2021-03-21] MEDS: Nicotine 21 MG PATCH.TD24 TRANSDERMA (07:58)
--- NOTE | 2021-03-21 10:01 | P.DS_ITS ---
DS: Providers Provider Date of Service: 03/21/21 Date of admission: 03/15/21 16:24 Primary care physician: Caitlyn Greenberg NP Consults: 03/16/21 11:56 Addiction Medicine Routine Consulting Provider: Maude Woo Reason for consultation: heroine/cocaine use Has provider been notified: No 03/17/21 10:54 Consult to Care Team Routine Comment: Reason for consultation: depression 03/18/21 14:59 Consult to Psychiatry Routine Consulting Provider: Psych Covering Reason for consultation: anxiety , walbutrin overdose , medication adjustment DS: Diagnosis Discharge Diagnosis (1) Alcohol withdrawal: Status: Acute (2) Drug overdose: Status: Acute (3) Chronic post-traumatic stress disorder (PTSD): Status: Acute (4) Alcohol use disorder: Status: Chronic (5) Opioid use disorder: Status: Chronic DS: Summary Hospital Course Hospital Course: History of presenting illness Chief Complaint: walbuterin overdose , alcohol withdrawal 50-year-old male with history of depression, alcohol abuse and heroin snorting- he said from last for 5 days he got some extra money-having extra money which put stress on him:? He has relapsed with binge drinking, heroin snorting, in addition end up taking almost 20 pills of Wellbutrin, he is feeling depressed and suicidal, and complained of nausea. He said he also stop taking Suboxone . Denies any new complaint of chest pain or shortness of breath or abdominal pain or fever or chills or vomiting Denies any cough Denies any weakness or numbness. Hospital course Patient admitted to medical floor with a diagnosis of Wellbutrin overdose, treated with charcoal in the emergency room , had a sitter, all home medications including Seroquel, Wellbutrin, prazosin and mirtazipine were initially held,Later patient complained of anxiety and difficulty falling asleep therefore all home medications were resumed except for Wellbutrin and patient placed on Ativan, patient electrolytes remain stable, EKG with normal QTC, currently he is feeling better patient seen by N and they recommended psych hospitalization therefore patient is being discharged to , further psychiatric medication adjustment as per Psychiatry. In regard to Alcohol withdrawal patient treated with thiamine and folic acid since he cannot tolerate phenobarb he was treated with Ativan for withdrawal symptoms History of drug use Continue Suboxone History of anxiety/ depression continue Seroquel 100 mg at bedtime, prazosin 2 mg at bedtime, and mirtazipine 15 mg at bedtime, on Ativan 2 mg q.6 hours as needed for anxiety. ? ? History of smoking continue nicotine patch 21mg daily since patient has history of smoking 1 pack per day. Time Spent with Patient Time attestation: Total time spent providing and/or coordinating discharge serv ices: Discharge coordination time: Greater than 30 minutes Quality: Stroke Does the patient have a stroke diagnosis?: No Physical Exam Vital Signs: Vital Signs: Last Vital Signs Temp 98.1 F 03/21/21 07:37 Pulse 71 03/21/21 07:37 Resp 18 03/21/21 07:37 BP 134/71 03/21/21 07:37 Pulse Ox 95 03/21/21 07:37 Body Mass Index 29.3 General resting comfortably in no acute distress. Neck is supple, no JVD. CVS regular rate rhythm, Respiratory lungs clear to auscultation, no respiratory distress, no wheeze, no rhonchi. Gastrointestinal abdomen soft, nontender, bowel sounds audible, no guarding , no rigidity. Extremities no edema. Neuro nonfocal , speech clear. Skin no rash Musculoskeletal no deformity DS: Data Data Completed and Pending Completed studies during hospitalization [Text1]: Procedures Detoxification Services for Substance Abuse Treatment (01/01/21) Discharge Plan Discharge Patient Disposition: Xfer Psychiatric Hosp Discharge Diagnosis: Wellbutrin overdose Alcohol withdrawal Anxiety Referrals: Caitlyn Greenberg NP [Primary Care Provider] - 1 Week Discharge Medications: New lorazepam 1 mg Tablet 2 mg PO Q6H PRN (Reason: Anxiety) Qty: 15 RF: 0 Continued prazosin 1 mg Capsule 2 mg PO BEDTIME 30 Days Qty: 60 RF: 0 mirtazapine 15 mg Tablet 15 mg PO BEDTIME 30 Days Qty: 30 RF: 0 nicotine (polacrilex) 2 mg Gum 4 mg buccal Q2H PRN (Reason: Nicotine Cravings) 30 Days Qty: 100 RF: 0 hydroxyzine pamoate 50 mg capsule 50 mg PO TID PRN (Reason: anxiety) 30 Days Qty: 60 RF: 1 gabapentin 800 mg tablet 800 mg PO TID 30 Days Qty: 90 RF: 0 nicotine 21 mg/24 hr Patch 24 Hour 1 patch TRANSDERMAL DAILY PRN (Reason: smoking cessation) 30 Days Qty: 28 RF: 0 buprenorphine-naloxone [Suboxone] 8-2 mg film 1 film sublingual BID RF: 0 quetiapine [Seroquel] 100 mg Tablet 100 mg PO BEDTIME RF: 0 Discontinued bupropion HCl 150 mg Tablet Extended Release 24 Hr 150 mg PO DAILY 30 Days Qty: 30 RF: 0 bupropion HCl [Wellbutrin XL] 300 mg tablet extended release 24 hr 300 mg PO QAM 30 Days Qty: 30 RF: 0 Discharge Orders: Discharge Order (Routine); Ordered 03/21/21 Ordered By: Giovanni Badillo Diet: advance to usual diet Activity on Discharge: As tolerated Stand Alone Forms: Patient Portal Discharge page Care Plan Goals: Suicidal ideation continue current medication Health Concerns: Suicidal ideation/alcohol use require close psychiatric monitor Plan of Treatment: Outpatient follow-up with primary care physician and Psychiatry Assessment: As above.
--- NOTE | 2021-03-21 10:17 | MHC.CARE ---
Patient accepted to for admission today, he has been assigned to [id number] and the provider is Joycelyn Jones.
[2021-03-21 11:39] VITALS: BP 103/52; PULSE 67; RESP 18; TEMP 36.4; O2SAT 95
[2021-03-21 15:19] VITALS: BP 142/69; PULSE 72; RESP 18; TEMP 36.7; O2SAT 95
[2021-03-21] MEDS: Enoxaparin Sodium 40 MG/0.4 ML SYRINGE SUBCUT (16:51)
[2021-03-21 19:27] VITALS: BP 148/82; PULSE 76; RESP 18; TEMP 36.6; O2SAT 94
== END 2021-03-21 18:20 | DRG 812 ==
LOC: HO.ED 16:10 → HO.EDOVER 16:32 → HO.IMC 20:00
PROVIDERS: Admitting Provider Internal Medicine; Emergency Provider Emergency Medicine; PCP Nurse Practitioner Family; Visit Provider Hospitalist
DX: T43.292A Poisoning by other antidepressants, intentional self-harm, initial encounter (principal); R45.851 Suicidal ideations; F11.20 Opioid dependence, uncomplicated; Y92.9 Unspecified place or not applicable; F10.130 Alcohol abuse with withdrawal, uncomplicated; F17.210 Nicotine dependence, cigarettes, uncomplicated; Z71.6 Tobacco abuse counseling; Z20.822 Contact with and (suspected) exposure to COVID-19; Z79.899 Other long term (current) drug therapy
CPT/HCPCS: 36415; 80048; 80076; 80143; 80179; 82077; 83690; 83735; 83880; 84484; 85025; 87635; 93005; 99285; J1650; J2060

== ENCOUNTER 2021-03-21 15:52 | Inpatient (IN) | payer OTHER, SELFPAY ==
[2021-03-21 20:29] VITALS: BP 140/81; PULSE 88; TEMP 36.6; O2SAT 98
[2021-03-21 20:30] VITALS: BMI 32.1
[2021-03-21] MEDS: QUEtiapine Fumarate 100 MG TABLET PO (22:46)
[2021-03-21] MEDS: LORazepam 1 MG TABLET 2 MG PO (22:46)
[2021-03-21] MEDS: Mirtazapine 15 MG TABLET PO (22:46)
[2021-03-21] MEDS: Gabapentin 400 MG CAPSULE 800 MG PO (22:46)
[2021-03-21 22:47] VITALS: BP 148/78; PULSE 87
[2021-03-21] MEDS: Prazosin HCL 1 MG CAPSULE 2 MG PO (22:47)
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
[2021-03-22 06:00] VITALS: BP 107/59; PULSE 77; RESP 16; TEMP 36.7; O2SAT 97
[2021-03-22] MEDS: Gabapentin 400 MG CAPSULE 800 MG PO ×3 (09:17→22:11)
[2021-03-22] MEDS: LORazepam 1 MG TABLET 2 MG PO ×3 (09:20→22:11)
[2021-03-22] MEDS: Buprenorphine/Naloxone 8/2 mg FILM 2 FILM SUBLINGUAL (10:35)
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
[2021-03-22 18:00] VITALS: BP 115/84; PULSE 79; RESP 18; TEMP 36.4; O2SAT 97
[2021-03-22 22:10] VITALS: BP 115/84; PULSE 79
[2021-03-22] MEDS: Prazosin HCL 1 MG CAPSULE 2 MG PO (22:10)
[2021-03-22] MEDS: QUEtiapine Fumarate 100 MG TABLET PO (22:10)
[2021-03-22] MEDS: Mirtazapine 15 MG TABLET PO (22:11)
[2021-03-23] MEDS: Nicotine Polacrilex 2 MG GUM 4 MG BUCCAL (04:02)
[2021-03-23] MEDS: LORazepam 1 MG TABLET 2 MG PO ×2 (04:03→10:09)
[2021-03-23 06:00] VITALS: BP 131/74; PULSE 80; RESP 18; TEMP 36.6; O2SAT 95
--- NOTE | 2021-03-23 08:00 | PC.NURSE ---
Skin assessment completed. Patient has healing padilla to left 2nd finger. Woundres gel and tegaderm applied. No other skin issues noted at this time.
[2021-03-23] MEDS: Buprenorphine/Naloxone 8/2 mg FILM 2 FILM SUBLINGUAL (08:38)
[2021-03-23] MEDS: Gabapentin 400 MG CAPSULE 800 MG PO ×3 (08:38→21:39)
[2021-03-23] MEDS: Nicotine 21 MG PATCH.TD24 TRANSDERMA (08:49)
--- NOTE | 2021-03-23 10:19 | P.PNPSI_ITS ---
Subjective Subjective Date of Service: 03/23/21 Reason For Visit: Walbuterin overdose, alcohol withdrawal Subjective Notes: Conditional Voluntary Interim History: Pt reports sleeping and eating well. he continues to report that he regrets suicide attempt. He reports he wants to continue substance use treatment. He ahs been visible in the unit, attends some groups. He started wellbutrin today. He denies SI/HI VH/AH. No behavioral concerns. Medication Compliance: Yes Review of Systems Constitutional: Denies headache(s) Eyes: Denies change in vision Denies headache(s) Cardiovascular: Denies chest pain, Denies chest pain at rest, Denies rapid heart rate and Denies dyspnea Respiratory: Denies dyspnea Gastrointestinal: Denies constipation and Denies nausea Musculoskeletal: Denies muscle cramps and Denies muscle weakness Denies headache(s) Mental Status Exam Mental Status Exam Narrative: Appearance: casually groomed, fair hygiene in NAD Behavior:cooperative psychomotor: no agitation or retardation noted Speech:clear, normal rate/rhythm/volume, spontaneous Thought process: linear Thought content:no signs of psychosis, future oriented looking forward to do CSS Mood: better Affect: brighter, non labile, congruent SI:none HI:none VH/AH:none Delusions:none Insight/judgment:fair x 2. Memory/cog: alert, oriented x 3. grossly intact to conversational testing. Diagnostics Vital Signs (24Hr): Vital Signs - 24 hr 03/23/21 18:00 03/23/21 21:40 03/24/21 09:51 Temperature 97.8 F 98.1 F Pulse Rate 85 86 68 Respiratory Rate 18 16 Blood Pressure 150/88 H 150/88 H 115/59 L Pulse Oximetry 98 98 Body Mass Index 32.1 Medications Medications Current Medications Al Hydroxide/Mg Hydroxide (Magnesium Hydrox/Alum Hydrox 30 Ml Oral.Susp) 30 ml PO Q6H PRN PRN Reason: Heartburn/Nausea Buprenorphine/Naloxone (Buprenorphine/Naloxone 8/2 Mg Film) 2 film SUBLINGUAL DAILY [facility] Last Admin: 03/24/21 09:43 Dose: 2 film Documented by: Bupropion HCl (Bupropion Hcl Xl 150 Mg Tab.Er.24h) 150 mg PO DAILY [facility] Last Admin: 03/24/21 09:43 Dose: 150 mg Documented by: Gabapentin (Gabapentin 400 Mg Capsule) 800 mg PO TID [facility] Last Admin: 03/24/21 09:43 Dose: 800 mg Documented by: Hydroxyzine HCl (Hydroxyzine Hcl 50 Mg Tablet) 50 mg PO TID PRN PRN Reason: anxiety Last Admin: 03/24/21 05:00 Dose: 50 mg Documented by: Lorazepam (Lorazepam 1 Mg Tablet) 1 mg PO Q6H PRN PRN Reason: Anxiety Last Admin: 03/24/21 05:00 Dose: 1 mg Documented by: Magnesium Hydroxide (Milk Of Magnesia 30 Ml Oral.Susp) 30 ml PO DAILY PRN PRN Reason: Constipation Mirtazapine (Mirtazapine 15 Mg Tablet) 15 mg PO BEDTIME [facility] Last Admin: 03/23/21 21:39 Dose: 15 mg Documented by: Nicotine (Nicotine 21 Mg Patch.Td24) 21 mg TRANSDERMA DAILY PRN PRN Reason: smoking cessation Last Admin: 03/24/21 09:47 Dose: 21 mg Documented by: Nicotine Polacrilex (Nicotine Polacrilex 2 Mg Gum) 4 mg BUCCAL Q2H PRN PRN Reason: Nicotine Cravings Last Admin: 03/23/21 04:02 Dose: 4 mg Documented by: Prazosin HCl (Prazosin Hcl 1 Mg Capsule) 2 mg PO BEDTIME [facility]; Protocol Last Admin: 03/23/21 21:40 Dose: 2 mg Documented by: Quetiapine Fumarate (Quetiapine Fumarate 100 Mg Tablet) 100 mg PO BEDTIME [facility] Last Admin: 03/23/21 21:39 Dose: 100 mg Documented by: Allergies Allergies Allergy/AdvReac Type Severity Reaction Status Date / Time No Known Allergies Allergy Verified 12/28/20 21:57 [No Known Allergies*] Assessment & Plan Assessment & Plan (1) Opioid use disorder: Status: Chronic Code(s): F11.99 - Opioid use, unspecified with unspecified opioid-induced disorder (2) Alcohol use disorder: Status: Chronic (3) MDD (major depressive disorder), recurrent episode, severe: Status: Acute Code(s): F33.2 - Major depressive disorder, recurrent severe without psychotic features Assessment and Plan: Mr. Narvaez is a 50 year-old male with hx of MDD, polysubstance use. He is known to through previous admission with similar presentation (either increase SI in setting of ongoing substance use) This time he self presented to [facility] ED after intentional OD on 20 tablets of wellbutrin 300mg with intent to end life. He was initially medically admitted on Pt reports regretting suicide attempt and reports feeling glad to be alive. He reports wellbutrin has been helpful in past , and would like to resume this medications. He reports he wants to restart suboxone, which he had stopped 2-3 weeks ago after relapsed on alcohol and opioid. He currently does not have any objective ss of alcohol nor opioid withdrawal. PLAN 1. Admit to M3 2. Increase Wellbutrin XL 300mg po daily 3. Continue trazodone 4. Obtain collateral information 5. Aftercare planning I spent minutes with the patient and/or on the patient floor today, greater than?50% of which was spent counseling/coordinating care. Reason for contiued inpatient stay Substantial Risk for: stable for discharge
[2021-03-23] MEDS: buPROPion HCl XL 150 MG TAB.ER.24H PO (12:17)
[2021-03-23] MEDS: LORazepam 1 MG TABLET PO ×2 (16:04→21:39)
[2021-03-23 18:00] VITALS: BP 150/88; PULSE 85; RESP 18; TEMP 36.6; O2SAT 98
[2021-03-23] MEDS: QUEtiapine Fumarate 100 MG TABLET PO (21:39)
[2021-03-23] MEDS: Mirtazapine 15 MG TABLET PO (21:39)
[2021-03-23 21:40] VITALS: BP 150/88; PULSE 86
[2021-03-23] MEDS: Prazosin HCL 1 MG CAPSULE 2 MG PO (21:40)
[2021-03-23] MEDS: hydrOXYzine HCL 50 MG TABLET PO (21:40)
[2021-03-24] MEDS: hydrOXYzine HCL 50 MG TABLET PO ×2 (05:00→19:24)
[2021-03-24] MEDS: LORazepam 1 MG TABLET PO ×3 (05:00→19:24)
[2021-03-24] MEDS: Buprenorphine/Naloxone 8/2 mg FILM 2 FILM SUBLINGUAL (09:43)
[2021-03-24] MEDS: buPROPion HCl XL 150 MG TAB.ER.24H PO (09:43)
[2021-03-24] MEDS: Gabapentin 400 MG CAPSULE 800 MG PO ×3 (09:43→20:31)
[2021-03-24] MEDS: Nicotine 21 MG PATCH.TD24 TRANSDERMA (09:47)
[2021-03-24 09:51] VITALS: BP 115/59; PULSE 68; RESP 16; TEMP 36.7; O2SAT 98
--- NOTE | 2021-03-24 16:27 | HO.PSYCHPN ---
Subjective Subjective Date of Service: 03/24/21 Reason For Visit: Walbuterin overdose, alcohol withdrawal Interim History: pt reports he is not sleeping well and has nightmares. he agrees to increase prazosin to 3 mg at bedtime. no other complaints or requests at the moment. informed wellbutrin dosing will be increased to 300 mg daily as of tomorrow. per staff, drastic improvement yesterday. denies SI/HI. hope for the future. slept well overnight. ativan PRNs have been decreased to 1 mg Q6H. Mental Status Exam Mental Status Exam Narrative: Appearance: casually groomed, fair hygiene in NAD Behavior:cooperative psychomotor: no agitation or retardation noted Speech:clear, normal rate/rhythm/volume, spontaneous Thought process: linear Thought content:no signs of psychosis, future oriented looking forward to do [facility] Mood: improved Affect: flexible, non labile, congruent Insight/judgment:fair x 2. Memory/cog: alert, oriented x 3. grossly intact to conversational testing. Diagnostics Vital Signs (24Hr): Vital Signs - 24 hr 03/23/21 18:00 03/23/21 21:40 03/24/21 09:51 Temperature 97.8 F 98.1 F Pulse Rate 85 86 68 Respiratory Rate 18 16 Blood Pressure 150/88 H 150/88 H 115/59 L Pulse Oximetry 98 98 Body Mass Index 32.1 Medications Medications Current Medications Al Hydroxide/Mg Hydroxide (Magnesium Hydrox/Alum Hydrox 30 Ml Oral.Susp) 30 ml PO Q6H PRN PRN Reason: Heartburn/Nausea Buprenorphine/Naloxone (Buprenorphine/Naloxone 8/2 Mg Film) 2 film SUBLINGUAL DAILY [facility] Last Admin: 03/24/21 09:43 Dose: 2 film Documented by: Bupropion HCl (Bupropion Hcl Xl 300 Mg Tab.Er.24h) 300 mg PO DAILY [facility] Gabapentin (Gabapentin 400 Mg Capsule) 800 mg PO TID [facility] Last Admin: 03/24/21 15:15 Dose: 800 mg Documented by: Hydroxyzine HCl (Hydroxyzine Hcl 50 Mg Tablet) 50 mg PO TID PRN PRN Reason: anxiety Last Admin: 03/24/21 05:00 Dose: 50 mg Documented by: Lorazepam (Lorazepam 1 Mg Tablet) 1 mg PO Q6H PRN PRN Reason: Anxiety Last Admin: 03/24/21 13:09 Dose: 1 mg Documented by: Magnesium Hydroxide (Milk Of Magnesia 30 Ml Oral.Susp) 30 ml PO DAILY PRN PRN Reason: Constipation Mirtazapine (Mirtazapine 15 Mg Tablet) 15 mg PO BEDTIME [facility] Last Admin: 03/23/21 21:39 Dose: 15 mg Documented by: Nicotine (Nicotine 21 Mg Patch.Td24) 21 mg TRANSDERMA DAILY PRN PRN Reason: smoking cessation Last Admin: 03/24/21 09:47 Dose: 21 mg Documented by: Nicotine Polacrilex (Nicotine Polacrilex 2 Mg Gum) 4 mg BUCCAL Q2H PRN PRN Reason: Nicotine Cravings Last Admin: 03/23/21 04:02 Dose: 4 mg Documented by: Prazosin HCl (Prazosin Hcl 1 Mg Capsule) 3 mg PO BEDTIME [facility]; Protocol Quetiapine Fumarate (Quetiapine Fumarate 100 Mg Tablet) 100 mg PO BEDTIME [facility] Last Admin: 03/23/21 21:39 Dose: 100 mg Documented by: Allergies Allergies Allergy/AdvReac Type Severity Reaction Status Date / Time No Known Allergies Allergy Verified 12/28/20 21:57 [No Known Allergies*] Assessment & Plan Assessment & Plan (1) Opioid use disorder: Status: Chronic Code(s): F11.99 - Opioid use, unspecified with unspecified opioid-induced disorder (2) Alcohol use disorder: Status: Chronic (3) MDD (major depressive disorder), recurrent episode, severe: Status: Acute Code(s): F33.2 - Major depressive disorder, recurrent severe without psychotic features Assessment and Plan: Mr. Narvaez is a 50 year-old male with hx of MDD, polysubstance use. He is known to through previous admission with similar presentation (either increase SI in setting of ongoing substance use) This time he self presented to [facility] ED after intentional OD on 20 tablets of wellbutrin 300mg with intent to end life. He was initially medically admitted. Pt reports regretting suicide attempt and reports feeling glad to be alive. He reports wellbutrin has been helpful in past, and would like to resume this medications. He reports he wants to restart suboxone, which he had stopped 2-3 weeks ago after relapsed on alcohol and opioid. He currently does not have any objective ss of alcohol nor opioid withdrawal. PLAN 1. Admit to M3 2. Increase Wellbutrin XL 300mg po daily 3. Continue trazodone 4. Obtain collateral information 5. Aftercare planning I spent minutes with the patient and/or on the patient floor today, greater than?50% of which was spent counseling/coordinating care. Reason for contiued inpatient stay Substantial Risk for: harm to self
[2021-03-24 18:00] VITALS: BP 133/80; PULSE 96; RESP 16; TEMP 36; O2SAT 94
[2021-03-24 20:31] VITALS: BP 133/80; PULSE 96
[2021-03-24] MEDS: Prazosin HCL 1 MG CAPSULE 3 MG PO (20:31)
[2021-03-24] MEDS: QUEtiapine Fumarate 100 MG TABLET PO (20:31)
[2021-03-24] MEDS: Mirtazapine 15 MG TABLET PO (20:32)
[2021-03-25] MEDS: LORazepam 1 MG TABLET PO ×4 (02:29→23:09)
[2021-03-25 06:00] VITALS: BP 126/84; PULSE 87; RESP 16; TEMP 36.2; O2SAT 95
[2021-03-25] MEDS: Buprenorphine/Naloxone 8/2 mg FILM 2 FILM SUBLINGUAL (10:52)
[2021-03-25] MEDS: Nicotine 21 MG PATCH.TD24 TRANSDERMA (10:53)
[2021-03-25] MEDS: Gabapentin 400 MG CAPSULE 800 MG PO ×3 (10:53→20:50)
[2021-03-25] MEDS: buPROPion HCl XL 300 MG TAB.ER.24H PO (10:53)
[2021-03-25 18:00] VITALS: BP 129/74; PULSE 76; RESP 16; TEMP 36.4; O2SAT 97
--- NOTE | 2021-03-25 18:45 | P.PNPSI_ITS ---
Subjective Subjective Date of Service: 03/25/21 Reason For Visit: Walbuterin overdose, alcohol withdrawal Interim History: pt reports feeling stable currently. did state he continues to have difficulty sleeping. agreed to increase HS prazosin to 4 mg. asked aboyut wellbutrin dosing, informed this MD would plan to have him at 300 mg daily x 3 days prior to increasing further to 450 mg, but he can discuss the plan with merlin tomorrow. no other questions or complaints. per staff, spending lots of time in bed. regrets his suicide attempt. social with peers. denies pain. up x1 @ 0230. had ativan, went back to bad. got up @ 1015 today. Mental Status Exam Mental Status Exam Narrative: Appearance: casually groomed, fair hygiene in NAD Behavior:cooperative psychomotor: no agitation or retardation noted Speech:clear, normal rate/rhythm/volume, spontaneous Thought process: linear Thought content:no signs of psychosis, future oriented looking forward to do CSS Mood: improved Affect: flexible, non labile, congruent Insight/judgment:fair x 2. Memory/cog: alert, oriented x 3. grossly intact to conversational testing. Diagnostics Vital Signs (24Hr): Vital Signs - 24 hr 03/24/21 20:31 03/25/21 06:00 Temperature 97.2 F Pulse Rate 96 87 Respiratory Rate 16 Blood Pressure 133/80 126/84 Pulse Oximetry 95 Body Mass Index 32.1 Medications Medications Current Medications Al Hydroxide/Mg Hydroxide (Magnesium Hydrox/Alum Hydrox 30 Ml Oral.Susp) 30 ml PO Q6H PRN PRN Reason: Heartburn/Nausea Buprenorphine/Naloxone (Buprenorphine/Naloxone 8/2 Mg Film) 2 film SUBLINGUAL DAILY [facility] Last Admin: 03/25/21 10:52 Dose: 2 film Documented by: Bupropion HCl (Bupropion Hcl Xl 300 Mg Tab.Er.24h) 300 mg PO DAILY [facility] Last Admin: 03/25/21 10:53 Dose: 300 mg Documented by: Gabapentin (Gabapentin 400 Mg Capsule) 800 mg PO TID [facility] Last Admin: 03/25/21 16:01 Dose: 800 mg Documented by: Hydroxyzine HCl (Hydroxyzine Hcl 50 Mg Tablet) 50 mg PO TID PRN PRN Reason: anxiety Last Admin: 03/24/21 19:24 Dose: 50 mg Documented by: Lorazepam (Lorazepam 1 Mg Tablet) 1 mg PO Q6H PRN PRN Reason: Anxiety Last Admin: 03/25/21 17:10 Dose: 1 mg Documented by: Magnesium Hydroxide (Milk Of Magnesia 30 Ml Oral.Susp) 30 ml PO DAILY PRN PRN Reason: Constipation Mirtazapine (Mirtazapine 15 Mg Tablet) 15 mg PO BEDTIME [facility] Last Admin: 03/24/21 20:32 Dose: 15 mg Documented by: Nicotine (Nicotine 21 Mg Patch.Td24) 21 mg TRANSDERMA DAILY PRN PRN Reason: smoking cessation Last Admin: 03/25/21 10:53 Dose: 21 mg Documented by: Nicotine Polacrilex (Nicotine Polacrilex 2 Mg Gum) 4 mg BUCCAL Q2H PRN PRN Reason: Nicotine Cravings Last Admin: 03/23/21 04:02 Dose: 4 mg Documented by: Prazosin HCl (Prazosin Hcl 1 Mg Capsule) 4 mg PO BEDTIME FOU[facility]; Protocol Quetiapine Fumarate (Quetiapine Fumarate 100 Mg Tablet) 100 mg PO BEDTIME [facility] Last Admin: 03/24/21 20:31 Dose: 100 mg Documented by: Allergies Allergies Allergy/AdvReac Type Severity Reaction Status Date / Time No Known Allergies Allergy Verified 12/28/20 21:57 [No Known Allergies*] Assessment & Plan Assessment & Plan (1) Opioid use disorder: Status: Chronic Code(s): F11.99 - Opioid use, unspecified with unspecified opioid-induced disorder (2) Alcohol use disorder: Status: Chronic (3) MDD (major depressive disorder), recurrent episode, severe: Status: Acute Code(s): F33.2 - Major depressive disorder, recurrent severe without psychotic features Assessment and Plan: Mr. Narvaez is a 50 year-old male with hx of MDD, polysubstance use. He is known to through previous admission with similar presentation (either increase SI in setting of ongoing substance use) This time he self presented to [facility] ED after intentional OD on 20 tablets of wellbutrin 300mg with intent to end life. He was initially medically admitted. Pt reports regretting suicide attempt and reports feeling glad to be alive. He reports wellbutrin has been helpful in past, and would like to resume this medications. He reports he wants to restart suboxone, which he had stopped 2-3 weeks ago after relapsed on alcohol and opioid. He currently does not have any objective ss of alcohol nor opioid withdrawal. PLAN 1. Admit to M3 2. Increased Wellbutrin XL 300mg po daily as of 03/25. 3. Continued trazodone. increased prazosin to 4 mg QHS as of 03/25. 4. Obtain collateral information 5. Aftercare planning I spent minutes with the patient and/or on the patient floor today, greater than?50% of which was spent counseling/coordinating care. Reason for contiued inpatient stay Substantial Risk for: harm to self, inability to function and rapid decompensation
[2021-03-25] MEDS: Mirtazapine 15 MG TABLET PO (20:50)
[2021-03-25] MEDS: QUEtiapine Fumarate 100 MG TABLET PO (20:50)
[2021-03-25 20:51] VITALS: BP 129/74; PULSE 76
[2021-03-25] MEDS: Prazosin HCL 1 MG CAPSULE 4 MG PO (20:51)
[2021-03-25] MEDS: hydrOXYzine HCL 50 MG TABLET PO (21:06)
[2021-03-26 08:32] VITALS: BP 144/80; PULSE 73; RESP 16; TEMP 36.1; O2SAT 96
[2021-03-26] MEDS: Buprenorphine/Naloxone 8/2 mg FILM 2 FILM SUBLINGUAL (08:33)
[2021-03-26] MEDS: Gabapentin 400 MG CAPSULE 800 MG PO ×3 (08:33→21:12)
[2021-03-26] MEDS: buPROPion HCl XL 300 MG TAB.ER.24H PO (08:33)
[2021-03-26] MEDS: LORazepam 1 MG TABLET PO ×3 (08:51→21:12)
[2021-03-26] MEDS: Nicotine 21 MG PATCH.TD24 TRANSDERMA (08:52)
--- NOTE | 2021-03-26 14:42 | P.PNPSI_ITS ---
Subjective Subjective Date of Service: 03/26/21 Reason For Visit: Walbuterin overdose, alcohol withdrawal Interim History: Cam reports feeling less depressed, less anxious. He reports having nighmares, now on prazosin, he reports no effect yet. He denies SI/HI. He continues to express motivation to continue substance use treatment and hopes to be able to go to [facility]. Per nursing, pt has been visible in the unit. Medication Compliance: Yes Side effects from medications: No Attending Groups: Yes Review of Systems Constitutional: Denies headache(s) Eyes: Denies change in vision Denies headache(s) Cardiovascular: Denies chest pain, Denies chest pain at rest, Denies rapid heart rate and Denies dyspnea Respiratory: Denies dyspnea Gastrointestinal: Denies constipation and Denies nausea Musculoskeletal: Denies muscle cramps and Denies muscle weakness Denies headache(s) Mental Status Exam Mental Status Exam Narrative: Appearance: casually groomed, fair hygiene in NAD Behavior:cooperative psychomotor: no agitation or retardation noted Speech:clear, normal rate/rhythm/volume, spontaneous Thought process: linear Thought content:no signs of psychosis, future oriented looking forward to do [facility] Mood: improved Affect: flexible, non labile, congruent Insight/judgment:fair x 2. Memory/cog: alert, oriented x 3. grossly intact to conversational testing. Diagnostics Vital Signs (24Hr): Vital Signs - 24 hr 03/25/21 18:00 03/25/21 20:51 03/26/21 08:32 Temperature 97.5 F 97.0 F Pulse Rate 76 76 73 Respiratory Rate 16 16 Blood Pressure 129/74 129/74 144/80 H Pulse Oximetry 97 96 Body Mass Index 32.1 Medications Medications Current Medications Al Hydroxide/Mg Hydroxide (Magnesium Hydrox/Alum Hydrox 30 Ml Oral.Susp) 30 ml PO Q6H PRN PRN Reason: Heartburn/Nausea Buprenorphine/Naloxone (Buprenorphine/Naloxone 8/2 Mg Film) 2 film SUBLINGUAL DAILY [facility] Last Admin: 03/26/21 08:33 Dose: 2 film Documented by: Bupropion HCl (Bupropion Hcl Xl 300 Mg Tab.Er.24h) 300 mg PO DAILY [facility] Last Admin: 03/26/21 08:33 Dose: 300 mg Documented by: Gabapentin (Gabapentin 400 Mg Capsule) 800 mg PO TID [facility] Last Admin: 03/26/21 15:01 Dose: 800 mg Documented by: Hydroxyzine HCl (Hydroxyzine Hcl 50 Mg Tablet) 50 mg PO TID PRN PRN Reason: anxiety Last Admin: 03/25/21 21:06 Dose: 50 mg Documented by: Lorazepam (Lorazepam 1 Mg Tablet) 1 mg PO Q6H PRN PRN Reason: Anxiety Last Admin: 03/26/21 15:05 Dose: 1 mg Documented by: Magnesium Hydroxide (Milk Of Magnesia 30 Ml Oral.Susp) 30 ml PO DAILY PRN PRN Reason: Constipation Mirtazapine (Mirtazapine 15 Mg Tablet) 15 mg PO BEDTIME [facility] Last Admin: 03/25/21 20:50 Dose: 15 mg Documented by: Nicotine (Nicotine 21 Mg Patch.Td24) 21 mg TRANSDERMA DAILY PRN PRN Reason: smoking cessation Last Admin: 03/26/21 08:52 Dose: 21 mg Documented by: Nicotine Polacrilex (Nicotine Polacrilex 2 Mg Gum) 4 mg BUCCAL Q2H PRN PRN Reason: Nicotine Cravings Last Admin: 03/23/21 04:02 Dose: 4 mg Documented by: Prazosin HCl (Prazosin Hcl 1 Mg Capsule) 5 mg PO BEDTIME [facility]; Protocol Quetiapine Fumarate (Quetiapine Fumarate 100 Mg Tablet) 100 mg PO BEDTIME [facility] Last Admin: 03/25/21 20:50 Dose: 100 mg Documented by: Allergies Allergies Allergy/AdvReac Type Severity Reaction Status Date / Time No Known Allergies Allergy Verified 12/28/20 21:57 [No Known Allergies*] Assessment & Plan Assessment & Plan (1) Opioid use disorder: Status: Chronic Code(s): F11.99 - Opioid use, unspecified with unspecified opioid-induced disorder (2) Alcohol use disorder: Status: Chronic (3) MDD (major depressive disorder), recurrent episode, severe: Status: Acute Code(s): F33.2 - Major depressive disorder, recurrent severe without psychotic features Assessment and Plan: Mr. Narvaez is a 50 year-old male with hx of MDD, polysubstance use. He is known to [facility]5 through previous admission with similar presentation (either increase SI in setting of ongoing substance use) This time he self presented to [facility] after intentional OD on 20 tablets of wellbutrin 300mg with intent to end life. He was initially medically admitted. Pt reports regretting suicide attempt and reports feeling glad to be alive. He reports wellbutrin has been helpful in past, and would like to resume this medications. He reports he wants to restart suboxone, which he had stopped 2-3 weeks ago after relapsed on alcohol and opioid. He currently does not have any objective ss of alcohol nor opioid withdrawal. PLAN 1. Admit to M3 2. Increased Wellbutrin XL 300mg po daily as of 03/25. 3. Continued trazodone. increased prazosin to 4 mg QHS as of 03/25. 4. Obtain collateral information 5. Aftercare planning I spent minutes with the patient and/or on the patient floor today, greater than?50% of which was spent counseling/coordinating care. Reason for contiued inpatient stay Substantial Risk for: harm to self
[2021-03-26 18:00] VITALS: BP 133/77; PULSE 86; RESP 18; TEMP 36.7; O2SAT 98
[2021-03-26] MEDS: hydrOXYzine HCL 50 MG TABLET PO (19:02)
[2021-03-26] MEDS: Nicotine Polacrilex 2 MG GUM 4 MG BUCCAL (19:04)
[2021-03-26 21:12] VITALS: BP 155/87; PULSE 85
[2021-03-26] MEDS: QUEtiapine Fumarate 100 MG TABLET PO (21:12)
[2021-03-26] MEDS: Mirtazapine 15 MG TABLET PO (21:12)
[2021-03-26] MEDS: Prazosin HCL 1 MG CAPSULE 5 MG PO (21:12)
[2021-03-27] MEDS: LORazepam 1 MG TABLET PO ×5 (03:45→22:31)
--- NOTE | 2021-03-27 03:46 | PC.NURSE ---
Chuck reports difficultly sleeping with elevated anxiety. given 1 mg Ativan PO prn.
[2021-03-27 06:00] VITALS: BP 161/91; PULSE 91; RESP 18; TEMP 36.6; O2SAT 97
[2021-03-27] MEDS: Buprenorphine/Naloxone 8/2 mg FILM 2 FILM SUBLINGUAL (10:09)
[2021-03-27] MEDS: Gabapentin 400 MG CAPSULE 800 MG PO ×3 (10:10→22:30)
[2021-03-27] MEDS: buPROPion HCl XL 300 MG TAB.ER.24H PO (10:10)
--- NOTE | 2021-03-27 11:28 | HO.PSYCHPN ---
Subjective Subjective Date of Service: 03/27/21 Reason For Visit: Walbuterin overdose, alcohol withdrawal Subjective Notes: Conditional Voluntary Interim History: Cam reports feeling worried about discharge tomorrow and not having bed at [facility] to go to. Pt reports overall feeling better but very anxious about his future. He worries he may quickly relapsed which in turn is was prompts suicidal ideation as pt reports feeling tired of working on recovery and relapsing. Per nursing, pt has been visible. No Behavioral concerns. we discussed increasing wellbutrin to 450mg po daily. Review of Systems Constitutional: Denies headache(s) Eyes: Denies change in vision Denies headache(s) Cardiovascular: Denies chest pain, Denies chest pain at rest, Denies rapid heart rate and Denies dyspnea Respiratory: Denies dyspnea Gastrointestinal: Denies constipation and Denies nausea Musculoskeletal: Denies muscle cramps and Denies muscle weakness Denies headache(s) Mental Status Exam Mental Status Exam Narrative: Appearance: casually groomed, fair hygiene in NAD Behavior:cooperative psychomotor: no agitation or retardation noted Speech:clear, normal rate/rhythm/volume, spontaneous Thought process: linear Thought content:no signs of psychosis, future oriented looking forward to do [facility] Mood: improved Affect: flexible, non labile, congruent Insight/judgment:fair x 2. Memory/cog: alert, oriented x 3. grossly intact to conversational testing. Diagnostics Vital Signs (24Hr): Vital Signs - 24 hr 03/26/21 18:00 03/26/21 21:12 03/27/21 06:00 Temperature 98.0 F 97.8 F Pulse Rate 86 85 91 Respiratory Rate 18 18 Blood Pressure 133/77 155/87 H 161/91 H Pulse Oximetry 98 97 Body Mass Index 32.1 Medications Medications Current Medications Al Hydroxide/Mg Hydroxide (Magnesium Hydrox/Alum Hydrox 30 Ml Oral.Susp) 30 ml PO Q6H PRN PRN Reason: Heartburn/Nausea Buprenorphine/Naloxone (Buprenorphine/Naloxone 8/2 Mg Film) 2 film SUBLINGUAL DAILY [facility] Last Admin: 03/27/21 10:09 Dose: 2 film Documented by: Bupropion HCl (Bupropion Hcl Xl 300 Mg Tab.Er.24h) 300 mg PO DAILY [facility] Last Admin: 03/27/21 10:10 Dose: 300 mg Documented by: Bupropion HCl (Bupropion Hcl Xl 150 Mg Tab.Er.24h) 150 mg PO ONCE ONE Stop: 03/27/21 11:28 Gabapentin (Gabapentin 400 Mg Capsule) 800 mg PO TID [facility] Last Admin: 03/27/21 10:10 Dose: 800 mg Documented by: Hydroxyzine HCl (Hydroxyzine Hcl 50 Mg Tablet) 50 mg PO TID PRN PRN Reason: anxiety Last Admin: 03/26/21 19:02 Dose: 50 mg Documented by: Lorazepam (Lorazepam 1 Mg Tablet) 1 mg PO Q6H PRN PRN Reason: Anxiety Last Admin: 03/27/21 10:10 Dose: 1 mg Documented by: Magnesium Hydroxide (Milk Of Magnesia 30 Ml Oral.Susp) 30 ml PO DAILY PRN PRN Reason: Constipation Mirtazapine (Mirtazapine 15 Mg Tablet) 15 mg PO BEDTIME [facility] Last Admin: 03/26/21 21:12 Dose: 15 mg Documented by: Nicotine (Nicotine 21 Mg Patch.Td24) 21 mg TRANSDERMA DAILY PRN PRN Reason: smoking cessation Last Admin: 03/26/21 08:52 Dose: 21 mg Documented by: Nicotine Polacrilex (Nicotine Polacrilex 2 Mg Gum) 4 mg BUCCAL Q2H PRN PRN Reason: Nicotine Cravings Last Admin: 03/26/21 19:04 Dose: 4 mg Documented by: Prazosin HCl (Prazosin Hcl 1 Mg Capsule) 5 mg PO BEDTIME [facility]OUZIA; Protocol Last Admin: 03/26/21 21:12 Dose: 5 mg Documented by: Quetiapine Fumarate (Quetiapine Fumarate 100 Mg Tablet) 100 mg PO BEDTIME [facility] Last Admin: 03/26/21 21:12 Dose: 100 mg Documented by: Allergies Allergies Allergy/AdvReac Type Severity Reaction Status Date / Time No Known Allergies Allergy Verified 12/28/20 21:57 [No Known Allergies*] Assessment & Plan Assessment & Plan (1) Opioid use disorder: Status: Chronic Code(s): F11.99 - Opioid use, unspecified with unspecified opioid-induced disorder (2) Alcohol use disorder: Status: Chronic (3) MDD (major depressive disorder), recurrent episode, severe: Status: Acute Code(s): F33.2 - Major depressive disorder, recurrent severe without psychotic features Assessment and Plan: Mr. Narvaez is a 50 year-old male with hx of MDD, polysubstance use. He is known to M5 through previous admission with similar presentation (either increase SI in setting of ongoing substance use) This time he self presented to [facility] ED after intentional OD on 20 tablets of wellbutrin 300mg with intent to end life. He was initially medically admitted. Pt reports regretting suicide attempt and reports feeling glad to be alive. He reports wellbutrin has been helpful in past, and would like to resume this medications. He reports he wants to restart suboxone, which he had stopped 2-3 weeks ago after relapsed on alcohol and opioid. He currently does not have any objective ss of alcohol nor opioid withdrawal. PLAN 1. Admit to M3 2. Increased Wellbutrin XL 300mg po daily as of 03/25. 3. Continued trazodone. increased prazosin to 4 mg QHS as of 03/25. 4. Obtain collateral information 5. Aftercare planning I spent minutes with the patient and/or on the patient floor today, greater than?50% of which was spent counseling/coordinating care. Reason for contiued inpatient stay Substantial Risk for: stable for discharge
[2021-03-27] MEDS: buPROPion HCl XL 150 MG TAB.ER.24H PO (12:15)
[2021-03-27 13:32] LABS: COVID-19 Test Negative (Negative)
[2021-03-27] MEDS: hydrOXYzine HCL 50 MG TABLET PO (14:17)
--- NOTE | 2021-03-27 18:44 | PC.NURSE ---
Patient approached this chart writer stating he feels like I could snap , I just threw up my supper . Reports feeling very anxious about pending discharge, everything is piling up . I have been in my room thinking about everything and I reaally need something to help me calm down . Dr. Mccabe notified via [employer] text waiting response.
[2021-03-27] MEDS: QUEtiapine Fumarate 50 MG TABLET PO (19:02)
[2021-03-27 22:29] VITALS: BP 136/83; PULSE 83
[2021-03-27] MEDS: Prazosin HCL 1 MG CAPSULE 5 MG PO (22:29)
[2021-03-27] MEDS: QUEtiapine Fumarate 100 MG TABLET PO (22:30)
[2021-03-27] MEDS: Mirtazapine 15 MG TABLET PO (22:31)
[2021-03-27 22:33] VITALS: BP 136/83; PULSE 83; TEMP 36.7; O2SAT 96
[2021-03-28 08:45] VITALS: BP 120/68; PULSE 75; RESP 18; TEMP 36.7; O2SAT 96
[2021-03-28] MEDS: Gabapentin 400 MG CAPSULE 800 MG PO ×2 (08:50→14:35)
[2021-03-28] MEDS: Buprenorphine/Naloxone 8/2 mg FILM 2 FILM SUBLINGUAL (08:51)
[2021-03-28] MEDS: buPROPion HCl XL 150 MG TAB.ER.24H 450 MG PO (08:51)
--- NOTE | 2021-03-28 10:47 | MHC.RECOVSUP ---
? Reason for consult:Recovery support o Current location: 323-1 o Identified substance use concern:Heroine - Withdrawal - Support ? Intervention: o Community resources provided o Harm reduction discussion ? Plan: o Patient to follow up with [facility] after discharge ? Additional information:Pt. 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 Pt. seemd eager to work with one and he was left a card so that he could call when he is ready.
[2021-03-28] MEDS: Nicotine 21 MG PATCH.TD24 TRANSDERMA (12:34)
[2021-03-28] MEDS: hydrOXYzine HCL 50 MG TABLET PO (12:34)
[2021-03-28] MEDS: LORazepam 1 MG TABLET PO (13:20)
--- NOTE | 2021-03-28 14:03 | PM.PSYDC ---
DS: Providers Provider Date of Service: 03/28/21 Date of admission: 03/21/21 15:52 Date of discharge: 03/28/21 Primary care physician: Jaime Physician Attending physician on admission: Cecile Perez Attending physician on discharge: Cecile Perez DS: Diagnosis Discharge Diagnosis (1) Opioid use disorder: Status: Chronic (2) Alcohol use disorder: Status: Chronic (3) MDD (major depressive disorder), recurrent episode, severe: Status: Acute DS: Medications Discharge Medications Home Medications: Home Medications Medication Instructions Recorded Confirmed buprenorphine 8 mg-naloxone 2 mg 1 film SUBLINGUAL BID 03/15/21 03/21/21 sublingual film (Suboxone) Previous Rx's Medication Instructions Recorded bupropion HCl 150 mg 24 hr tablet, 450 mg PO DAILY #30 tab 03/28/21 extended release gabapentin 400 mg capsule 800 mg PO TID #60 cap 03/28/21 hydroxyzine HCl 50 mg tablet 50 mg PO TID PRN #45 tab 03/28/21 mirtazapine 15 mg tablet 15 mg PO BEDTIME #30 tab 03/28/21 nicotine (polacrilex) 2 mg gum 4 mg BUCCAL Q2H PRN #30 ea 03/28/21 nicotine 21 mg/24 hr daily 21 mg TRANSDERMAL DAILY PRN #30 ea 03/28/21 transdermal patch prazosin 1 mg capsule 5 mg PO BEDTIME #20 cap 03/28/21 quetiapine 100 mg tablet 100 mg PO BEDTIME #30 tab 03/28/21 Mental Status Exam Mental Status Exam Narrative: Appearance: casually groomed, fair hygiene in NAD Behavior:cooperative psychomotor: no agitation or retardation noted Speech:clear, normal rate/rhythm/volume, spontaneous Thought process: linear Thought content:no signs of psychosis, future oriented looking forward to do CSS Mood: improved Affect: flexible, non labile, congruent Insight/judgment:fair x 2. Memory/cog: alert, oriented x 3. grossly intact to conversational testing. Data Data Completed and Pending Completed studies during hospitalization [Text1]: 03/27/21 13:00 COVID-19 (LINK) Negative COVID-19 Clin Com See Note DS: Summary Hospital Course Hospital Course: Mr. Narvaez is a 50 year-old male with hx of MDD and polysubstance use disorder who self presented to [facility] on 03/15 after intentional OD on wellbutrin. Pt reports taking about 20 tablets of wellbutrin 300mg. He was admitted medically for further evaluations. He received charcoal. No EKG changes were noted with QTC wnl. No seizures. He was also started on alcohol withdrawal protocol which pt completed without any medical complications. On the unit, Mr. Narvaez reports that one week ago he relapsed again on heroin, using about 2 bags daily. He also reports drinking about 15 beers daily. He currently does not have any s/s of alcohol withdrawal- SBP<150, DBP<90. He denies tremors, no signs of alcoholic hallucinosis. He reports that as soon as he relapsed he felt hopeless, depressed, with feeling of guilt and shame related to ongoing substance use. He reports taking wellbutrin OD with intent to end his life, but he reports he quickly regretted it right after ingesting tablets and asked friend to bring him to hospital. He continues to denied suicidal ideation.? He continues to regret having tried to end his life. He reports it was to some extend an impulsive act. He reports sleeping and eating well. He denies hx of VH/AH. Past Psychiatric History: His first psychiatric contact was as child, on therapy, no medications or admissions as a minor.? He has several admissions, he started receiving medications since he was 42. Medical Evaluation Reviewed: Yes HOSPITAL COURSE On the unit, Mr. Narvaez was admitted on a CV and placed on 15 minutes checks for safety. On the unit, pt reported ongoing relapse being trigger for suicidal thoughts as pt reports he is losing hope in terms of his ability to recover from use of heroin. After discussing risks, benefits and alternative treatment options, pt was continued on wellbutrin, which pt reported had been very beneficial in terms of depressed mood. He was slo continued on seroquel for sleep and prazosin for nightmares. His affect gradually brighten. he was increasingly more visible in the unit. He denied suicidal or homicidal ideation. We worked on relapses with sense of self and therefore his self esteem and symptoms of depression. Pt was referred to several residential substance use treatment programs but was in wait list at time of discharge. He was continued on suboxone. He was connected while on the unit with parent coach from [facility] program from [facility]. Pt reported decrease symptoms of depression. He reported increasingly feeling more optimistic and hopeful. However, he was worried about not going directly to residential program from hospital due to no bed available at these programs. There were no incidences of disruptive behaviors nor use of restraints. Status at Discharge Cognitive/behavioral status at discharge: Pt with brighter affect. He reported less symptoms of depression. he denied SI/HI. No signs of aggression towards self or others. Functional status at discharge: independent ambulation Overall status at discharge: patient is progressing back to baseline Time Spent with Patient Time attestation: Total time spent providing and/or coordinating discharge services: Time spent: Greater than 30 minutes Discharge Plan Discharge Patient Disposition: Home, Self-Care Discharge Diagnosis: MDD, recurrent, severe opioid use disorder Referrals: [facility] Referrals [Other] - 1 Week (Referrals for all of the above programs have already been made on your behalf) [facility] [place] [Other] - 1 Week ([facility]. [facility] for [facility] and are aware that you will be arriving there today. ) Kaylin Trujillo (Psychiatry) [Other] - 04/18/21 11:20 am (Telehealth Appointment Psychiatric Evaluation ) [facility] [Other] - 1 Week (Please present to the clinic on 04/03/2021, during their walk in hours from 6am - 8am All your paperwork from your previous clinic has been faxed to the [facility]. Bring your last dose letter and photo ID. ) Nia Esposito (Therapist) [Other] - 03/30/21 10:00 am (In Person Appointment Please arrive fifteen minutes prior to your appointment. ) Kaylin Trujillo (Psychiatry) [Other] - 05/16/21 12:00 pm (Telehealth Appointment Medication Management ) Physician,Unknown J [Primary Care Provider] - 1 Week (Left a voicemail to PCP about pt been discharged in regards to a follow up appt. ) Discharge Medications: New nicotine 21 mg/24 hr Patch 24 Hour 21 mg transdermal DAILY PRN (Reason: smoking cessation) Qty: 30 RF: 0 nicotine (polacrilex) 2 mg Gum 4 mg buccal Q2H PRN (Reason: Nicotine Cravings) Qty: 30 RF: 0 prazosin 1 mg Capsule 5 mg PO BEDTIME Qty: 20 RF: 0 gabapentin 400 mg Capsule 800 mg PO TID Qty: 60 RF: 0 hydroxyzine HCl 50 mg Tablet 50 mg PO TID PRN (Reason: anxiety) Qty: 45 RF: 0 quetiapine 100 mg Tablet 100 mg PO BEDTIME Qty: 30 RF: 0 mirtazapine 15 mg Tablet 15 mg PO BEDTIME Qty: 30 RF: 0 bupropion HCl 150 mg Tablet Extended Release 24 Hr 450 mg PO DAILY Qty: 30 RF: 0 buprenorphine-naloxone [Suboxone] 8-2 mg film 1 film sublingual BID Qty: 14 RF: 0 Continued buprenorphine-naloxone [Suboxone] 8-2 mg film 1 film sublingual BID RF: 0 Discontinued prazosin 1 mg Capsule 2 mg PO BEDTIME 30 Days Qty: 60 RF: 0 mirtazapine 15 mg Tablet 15 mg PO BEDTIME 30 Days Qty: 30 RF: 0 nicotine (polacrilex) 2 mg Gum 4 mg buccal Q2H PRN (Reason: Nicotine Cravings) 30 Days Qty: 100 RF: 0 hydroxyzine pamoate 50 mg capsule 50 mg PO TID PRN (Reason: anxiety) 30 Days Qty: 60 RF: 1 gabapentin 800 mg tablet 800 mg PO TID 30 Days Qty: 90 RF: 0 nicotine 21 mg/24 hr Patch 24 Hour 1 patch TRANSDERMAL DAILY PRN (Reason: smoking cessation) 30 Days Qty: 28 RF: 0 quetiapine [Seroquel] 100 mg Tablet 100 mg PO BEDTIME RF: 0 lorazepam 1 mg Tablet 2 mg PO Q6H PRN (Reason: Anxiety) Qty: 15 RF: 0 Discharge Orders: Discharge Order (Routine); Ordered 03/28/21 Ordered By: Cecile Perez Diet: regular diet Activity on Discharge: As tolerated Stand Alone Forms: Patient Portal Discharge page Care Plan Goals: 1. Maintain mood 2. No SI/HI 3. harm reduction- take home narcan Health Concerns: 1. Follow up with PCP Plan of Treatment: 1. Take medications as prescribed 2. Go to nearest ED or call 911 in event of emergency 3. Follow up with [facility] referrals to continue substance use treatment. Assessment: Pt with brighter affect. No SI/HI, anxious about relapsing and looking forward to go to [facility] once bed opens up. No signs of aggression towards self or others. Discharge Date/Time: 03/28/21 14:45
== END 2021-03-28 14:45 | disposition home or self-care (01) | DRG 751 ==
PROVIDERS: Admitting Provider Psychiatry & Neurology Psychiatry; Visit Provider Social Worker
DX: F33.2 Major depressive disorder, recurrent severe without psychotic features (principal); R45.851 Suicidal ideations; F11.20 Opioid dependence, uncomplicated; F17.210 Nicotine dependence, cigarettes, uncomplicated; Z71.6 Tobacco abuse counseling; Z91.51 Personal history of suicidal behavior; Z20.822 Contact with and (suspected) exposure to COVID-19; F10.239 Alcohol dependence with withdrawal, unspecified; Z23 Encounter for immunization; Z79.899 Other long term (current) drug therapy
CPT/HCPCS: 36415; 87635; 90686

== ENCOUNTER 2021-11-12 15:13 | Emergency (ER) | payer MEDICAID, SELFPAY ==
[2021-11-12 15:46] VITALS: BP 132/71; PULSE 83; RESP 20; TEMP 36.9; O2SAT 96; BMI 29.7
--- NOTE | 2021-11-12 16:54 | ED_ITS ---
HPI - General Adult General Chief complaint: Back Pain/Injury Stated complaint: Low Back Pain No Injury Time Seen by Provider: 11/12/21 16:54 Source: patient Mode of arrival: ambulatory Limitations: no limitations History of Present Illness HPI narrative: Patient is a 51 year old male presenting to the emergency department today with back pain. Patient states that he bent over and immediately had pain in his low back. Patient denies any dizziness, lightheadedness, abdominal pain, nausea, vomiting, fever, chills, blurry vision, double vision, loss of vision, chest pain, difficulty breathing, shortness of breath, night sweats, pain with urination, increased urinary frequency, increased urinary urgency, blood in his urine or stool, syncope or a near syncopal episode, recent trauma or falls, bowel incontinence, bladder incontinence, bowel retention, bladder retention, or any other complaints at this time. Onset (ago): hour(s) Location: back Radiation: non-radiation Severity: mild Severity scale (1-10): 1 Quality: dull Pain Consistency: constant Relieving factors: none Exacerbating factors: none Associated symptoms: denies other symptoms Treatments prior to arrival: none Related Data Home Medications Medication Instructions Recorded Confirmed buprenorphine 8 mg-naloxone 2 mg 1 film sublingual BID 03/15/21 03/21/21 sublingual film (Suboxone) Previous Rx's Medication Instructions Recorded buprenorphine 8 mg-naloxone 2 mg 1 film sublingual BID #14 ea 03/28/21 sublingual film (Suboxone) bupropion HCl 150 mg 24 hr tablet, 450 mg PO DAILY #30 tabs 03/28/21 extended release gabapentin 400 mg capsule 800 mg PO TID #60 caps 03/28/21 hydroxyzine HCl 50 mg tablet 50 mg PO TID PRN anxiety #45 tabs 03/28/21 mirtazapine 15 mg tablet 15 mg PO BEDTIME #30 tabs 03/28/21 nicotine (polacrilex) 2 mg gum 4 mg buccal Q2H PRN Nicotine 03/28/21 Cravings #30 ea nicotine 21 mg/24 hr daily 21 mg transdermal DAILY PRN 03/28/21 transdermal patch smoking cessation #30 ea prazosin 1 mg capsule 5 mg PO BEDTIME #20 caps 03/28/21 quetiapine 100 mg tablet 100 mg PO BEDTIME #30 tabs 03/28/21 cyclobenzaprine 10 mg tablet 10 mg PO TID PRN muscle spasm 7 11/12/21 days #21 tabs Allergies Allergy/AdvReac Type Severity Reaction Status Date / Time phenobarbital AdvReac Vomiting Verified 11/12/21 15:48 Review of Systems Constitutional: Constitutional: Reports no additional constitutional complaints, Denies chills, Denies fever(s) and Denies night sweats Eyes: Eyes: Reports no additional eye complaints, Denies blurry vision, Denies change in vision, Denies diplopia, Denies eye discharge, Denies loss of vision and Denies eye pain ENT: Denies dizziness Cardiovascular: Cardiovascular: Reports no additional cardiovascular complai nts, Denies chest pain, Denies lightheadedness, Denies Loss of Consciousness and Denies dyspnea Respiratory: Respiratory: Reports no additional respiratory complaints and Denies dyspnea Gastrointestinal: Gastrointestinal: Reports no additional gastrointestinal complaints, Denies abdominal pain, Denies melena, Denies hematochezia, Denies change in bowel habits and Denies change in stool character Genitourinary: Genitourinary: Reports no additional male genitourinary complaints, Denies hematuria, Denies oliguria, Denies difficulty urinating, Denies dysuria, Denies urinary frequency, Denies urinary hesitancy, Denies urinary incontinence and Denies urinary urgency Musculoskeletal: Musculoskeletal: Reports no additional musculoskeletal complaints, Reports back pain, Denies numbness and Denies tingling Neurologic: Denies dizziness, Denies loss of vision, Denies numbness and Denies tingling Psychiatric: Psychiatric: Reports no additional psychiatric complaints Endocrine: Endocrine: Reports no additional endocrine complaints Hematologic/Lymphatic: Hematologic/Lymphatic: Reports no additional hematologic/lymphatic complaints Allergic/Immunologic: Allergic/Immunologic: Reports no additional allergic/immunologic complaints [facility] Past Medical History Attestation statement: The following information was validated with the patient. Source: old records reviewed Medical History Alcohol dependence Anxiety Depression EtOH dependence Hepatitis C antibody positive in blood Surgical History History of mandibular surgery Family History Family History Mother Diabetes mellitus Father Leukemia Social History Social History Household Members: None Household Members Other:: People he met in the community Housing: Homeless Housing Other:: Pt recently lost housing. Friend who had lived with him recently . Do you presently have visiting nurse or other home services: No Unable to assess alcohol history related to: Unknown Alcohol intake: current Alcohol intake frequency: 3 or more drinks per day Alcohol type: beer and hard liquor Patient Tobacco Use Status: Current everyday Tobacco user Tobacco use type: Cigarette Cigarette Packs Per Day: 0.5 Cigarettes Per Day: 20 Years Smoked: 10+ e-Cigarette/Vaping Use: Never Used Second Hand Smoke Exposure: No Substance Use Type: Crack/Cocaine and Heroin Advance Directives: No Advance Directives Information Provided: No service: No Current occupational status: unemployed Sexual orientation: Don't Know Physical Exam ED Vital Signs: Vital Signs - 24 hr 11/12/21 15:46 Temperature 98.4 F Pulse Rate 83 Respiratory Rate 20 Blood Pressure 132/71 Pulse Oximetry 96 Oxygen Delivery Method Room Air BMI result Body Mass Index 29.7 Const General: cooperative, no acute distress, alert and awake Nutritional Appearance: well nourished Orientation/consciousness: patient oriented x3 Limitations: no limitations HENMT Head: Yes normal to inspection and Yes atraumatic Ears: hearing grossly normal bilaterally and external ears normal General nose exam: Normal external nose present, no nasal discharge noted and no epistaxis Face and sinus: Yes normal facial exam, No abrasion and No laceration Mouth: Normal oral and palatal mucosa present, no drooling and no muffled voice Eyes General: appearance normal, both eyes and all related structures Periorbital: periorbital findings normal Eyelids: Yes eyelids normal Conjunctivae: conjunctivae normal Pupils: Equal, round and reactive pupils present EOM: EOMs intact bilaterally Neck Neck: Yes normal visual inspection, Yes full ROM and Yes no lymphadenopathy Chest Chest palpation & inspection: normal inspection of the chest Resp Effort & Inspection: normal respiratory effort and able to speak in complete sentences Auscultation: clear to auscultation bilaterally Cardio Rate: regular rate Rhythm: regular rhythm GI Inspection: Yes normal to inspection General: Yes no CVA tenderness Back/Spine/Pelvis Back: no CVA tenderness Cervical Spine: normal cervical lordosis and cervical ROM normal Thoracic/Lumbar Spine: thoracic and lumbar spine normal to inspection and thoraco-lumbar ROM normal Pelvis: no pain with anterior-posterior compression Neuro General: patient oriented x3 and moves all extremities Cranial nerves: Yes Equal, round and reactive pupils present Cognition (Neuro): normal cognition Motor exam (neuro): 5/5 motor strength present throughout Sensory Exam: Normal double simultaneous stimulation for sensation Coordination: [id number] test normal Extrem General: Yes normal to inspection, Yes full ROM and Yes capillary refill normal Psych Appearance: grossly normal Mental Status: mental status grossly normal Affect: normal affect Attitude: cooperative Thought process: Normal thought process present Thought content: Normal thought content present Insight: Good insight present (Psych) Medical Decision Making MDM Narrative Medical decision making narrative: Patient is a 51 year old male presenting to the emergency department today with back pain. Patient's physical exam was unremarkable. I explained my physical exam findings to the patient. I answered all questions asked by the patient. Patient received PO Flexeril and IM Toradol which he stated helped his pain significantly. I stressed the importance of the patient taking his medication as prescribed. I stressed the importance of the patient following up with his primary care provider. I stressed the importance of the patient returning to the emergency department immediately if his symptoms were to worsen or if he were to develop any dizziness, shortness of breath, difficulty breathing, chest pain, blurry vision, loss of vision, nausea, vomiting, abdominal pain, fever, chills, back pain, or any other complaints. Patient verbalized agreement and understanding with this treatment plan and discharge. Differential Diagnosis Differential Diagnosis: back pain, chronic back pain Medical Records Medical records reviewed: Yes I reviewed the patient's medical records. Discharge Plan Discharge Clinical Impression: Back pain Patient Disposition: Home, Self-Care Instructions: Back Pain (ED) Additional Instructions: Follow up with your primary care provider. Return to the emergency department immediately if your symptoms worsen or if you develop any dizziness, shortness of breath, difficulty breathing, chest pain, blurry vision, loss of vision, nausea, vomiting, abdominal pain, fever, chills, back pain, or any other complaints. Prescriptions: New cyclobenzaprine 10 mg tablet 10 mg PO TID PRN (Reason: muscle spasm) 7 Days Qty: 21 0RF No Action buprenorphine-naloxone [Suboxone] 8-2 mg film 1 film sublingual BID nicotine 21 mg/24 hr Patch 24 Hour 21 mg transdermal DAILY PRN (Reason: smoking cessation) Qty: 30 0RF nicotine (polacrilex) 2 mg Gum 4 mg buccal Q2H PRN (Reason: Nicotine Cravings) Qty: 30 0RF prazosin 1 mg Capsule 5 mg PO BEDTIME Qty: 20 0RF Protocol: Hold for SBP< HOLD for SBP < : 90 gabapentin 400 mg Capsule 800 mg PO TID Qty: 60 0RF hydroxyzine HCl 50 mg Tablet 50 mg PO TID PRN (Reason: anxiety) Qty: 45 0RF quetiapine 100 mg Tablet 100 mg PO BEDTIME Qty: 30 0RF mirtazapine 15 mg Tablet 15 mg PO BEDTIME Qty: 30 0RF bupropion HCl 150 mg Tablet Extended Release 24 Hr 450 mg PO DAILY Qty: 30 0RF buprenorphine-naloxone [Suboxone] 8-2 mg film 1 film sublingual BID Qty: 14 0RF Referrals: Caitlyn Greenberg [facility] [employer]ATEG[facility] [Primary Care Provider] - Print Language: Bolivian
[2021-11-12] MEDS: Cyclobenzaprine HCl 5 MG TABLET PO (17:36)
[2021-11-12] MEDS: Ketorolac Tromethamine 15 MG/ML VIAL IM (17:37)
== END 2021-11-12 18:19 | disposition home or self-care (01) ==
PROVIDERS: Emergency Provider Emergency Medicine; PCP Nurse Practitioner Family
DX: M54.50 Low back pain, unspecified (principal); Z79.899 Other long term (current) drug therapy; F17.210 Nicotine dependence, cigarettes, uncomplicated; Z71.6 Tobacco abuse counseling
CPT/HCPCS: 96372; 99284; J1885

== ENCOUNTER 2022-02-28 14:04 | Inpatient (IN) | payer OTHER, MEDICAID, SELFPAY ==
--- NOTE | ~2022-02-28 | XR_ITS ---
EXAMINATION: XR CHEST CLINICAL INFORMATION: Question seizure COMPARISON: 11/29/2019 TECHNIQUE: Frontal view of the chest was obtained. FINDINGS: The lungs are well expanded. There is no focal consolidation, edema, or effusion. No pneumothorax. The cardiomediastinal silhouette is within normal limits. No acute osseous abnormality. XR/XR chest 1V IMPRESSION: Clear lungs.
--- NOTE | ~2022-02-28 | CT_ITS ---
EXAMINATION: CT HEAD WITHOUT CONTRAST CLINICAL INFORMATION: Question seizure. Headache. No known head trauma COMPARISON: Head CT 11/29/2019 TECHNIQUE: Imaging was performed from the skull base to vertex without intravenous administration of contrast. This CT examination was performed using dose optimization techniques as appropriate, variously including the following: *Automated exposure control *Adjustment of mA and/or kV according to patient size (this includes techniques or standardized protocols for targeted exams where dose is matched to indication/reason for exam; i.e. extremities or head) *Use of iterative reconstruction technique Total exam dose length product: 1061 mGy-cm FINDINGS: Exam quality degraded by slight motion artifact through a portion of the scan. No intra or extra-axial fluid collection, hemorrhage, or mass. No ventriculomegaly. No midline shift or herniation. Basal cisterns are patent. Gates-white matter differentiation is maintained. No territorial encephalomalacia. No significant volume loss. There is no abnormal attenuation within the brain parenchyma. No calvarial fracture or soft tissue abnormality. The mastoid air cells and visualized portions of the paranasal sinuses are well aerated. CT/CT head/brain wo IV con IMPRESSION: 1. No acute intracranial pathology.
--- NOTE | ~2022-02-28 | XR_ITS ---
EXAMINATION: XR LUMBOSACRAL SPINE CLINICAL INFORMATION: Back pain COMPARISON: None TECHNIQUE: Three views of the lumbosacral spine. FINDINGS: Normal alignment. No subluxation. Vertebral body heights are maintained. No acute fracture. No osseous lesion identified. Minimal disc height loss at L5-S1. Intervertebral disc heights otherwise maintained. Minimal anterior endplate proliferative change at L2-L3 and L3-L4 and within the lower thoracic spine compatible with mild degenerative disc disease. No pars defects. XR/XR lumbar spine 2-3V IMPRESSION: 1. No subluxation or fracture. 2. Mild multilevel degenerative disc disease.
[2022-02-28 14:53] VITALS: BP 170/120; PULSE 90; O2SAT 100; BMI 39.5
[2022-02-28 15:04] VITALS: BP 117/83; PULSE 82; RESP 16; TEMP 36.6; O2SAT 99; BMI 30.1
[2022-02-28 15:10] VITALS: BP 142/96; PULSE 106; O2SAT 97
--- NOTE | 2022-02-28 15:36 | ECG_ITS ---
Test Reason : SEIZURE? Blood Pressure : / mmHG Vent. Rate : 080 BPM Atrial Rate : 080 BPM P-R Int : 132 ms QRS Dur : 088 ms QT Int : 386 ms P-R-T Axes : 060 021 045 degrees QTc Int : 445 ms Normal sinus rhythm Normal ECG When compared with ECG of 16-MAR-2021 12:02, T wave inversion no longer evident in Inferior leads Referred By: Maye Summers Electronically Signed By:CORWIN KELLOGG
--- NOTE | 2022-02-28 16:22 | ED_ITS ---
HPI - Alcohol General Chief Complaint: ETOH/Substance Use <GONZALEZ Hammer - Last Filed: 02/28/22 20:58> Stated Complaint: SI <GONZALEZ Hammer - Last Filed: 02/28/22 20:58> Time Seen by Provider: 02/28/22 15:35 <GONZALEZ Hammer - Last Filed: 02/28/22 20:58> Source: patient and EMS <GONZALEZ Hammer - Last Filed: 02/28/22 20:58> Mode of arrival: EMS <GONZALEZ Hammer - Last Filed: 02/28/22 20:58> History of Present Illness HPI narrative: 51-year-old male with a past medical history of ETOH abuse with history of EtOH withdrawal seizures and DTs, hepatitis-C, anxiety, PTSD, MDD, substance abuse, presenting to ED via EMS c/o ETOH abuse x mos drinking about 2pt and a 12 pack daily, last drink around 09:00AM this morning, states was attempting to stop drinking, also using crack cocaine. States drug use makes him suicidal, found himself on the train tracks today, hoping for a train to come by. Admits to a time lapse while he was on a tracks, patient unsure if he passed out or had seizure. also reports low back pain, acute on chronic with radiation down RLE. Denies fever, chills, cough, abdominal pain, nausea/ vomiting, numbness, tingling, urine incontinence/retention <GONZALEZ Hammer - Last Filed: 02/28/22 20:58> MD complaint: alcohol intoxication, alcohol withdrawal and alcohol dependence <GONZALEZ Hammer - Last Filed: 02/28/22 20:58> Related Data Home Medications: Home Medications Medication Instructions Recorded Confirmed buprenorphine 8 mg-naloxone 2 mg 1 film sublingual BID 03/15/21 03/21/21 sublingual film (Suboxone) Previous Rx's Medication Instructions Recorded buprenorphine 8 mg-naloxone 2 mg 1 film sublingual BID #14 ea 03/28/21 sublingual film (Suboxone) bupropion HCl 150 mg 24 hr tablet, 450 mg PO DAILY #30 tabs 03/28/21 extended release gabapentin 400 mg capsule 800 mg PO TID #60 caps 11/03/21 hydroxyzine HCl 50 mg tablet 50 mg PO TID PRN anxiety #45 tabs 03/28/21 mirtazapine 15 mg tablet 15 mg PO BEDTIME #30 tabs 03/28/21 nicotine (polacrilex) 2 mg gum 4 mg buccal Q2H PRN Nicotine 03/28/21 Cravings #30 ea nicotine 21 mg/24 hr daily 21 mg transdermal DAILY PRN 03/28/21 transdermal patch smoking cessation #30 ea prazosin 1 mg capsule 5 mg PO BEDTIME #20 caps 03/28/21 quetiapine 100 mg tablet 100 mg PO BEDTIME #30 tabs 03/28/21 cyclobenzaprine 10 mg tablet 10 mg PO TID PRN muscle spasm 7 11/12/21 days #21 tabs <GONZALEZ Hammer Last Filed: 02/28/22 20:58> Allergies/Adverse Reactions: Allergies Allergy/AdvReac Type Severity Reaction Status Date / Time phenobarbital AdvReac Vomiting Verified 11/12/21 15:48 <GONZALEZ Hammer Last Filed: 02/28/22 20:58> Review of Systems Review of Systems: Constitutional: No Fever, No Chills, No Fatigue, No Malaise ENT/Mouth: No Ear Pain, No sore throat, No Rhinorrhea, No Swallowing Difficulty Eyes: No Eye Pain, No Swelling, No Redness, No Discharge, No Vision Changes Cardiovascular: No Chest Pain, No SOB, No Edema, No Palpitations Respiratory: No Cough, No Dyspnea Gastrointestinal: No Nausea, No Vomiting, No Diarrhea, No Constipation, No Abdominal pain Genitourinary: No Dysuria, No Urinary Frequency, No Hematuria, No Urinary Incontinence/retention, No Flank Pain Musculoskeletal: + joint pain, No Myalgias, No Joint Swelling Skin: No Skin Lesions, No rash Neuro: No Weakness, No Numbness, No Paresthesias, No Loss of Consciousness, No Dizziness, No Headache Psych: No Anxiety/Panic, No Depression, + SI, No HI/AH/VH, No Social Issues <GONZALEZ Hammer Last Filed: 02/28/22 20:58> Yes all other systems are reviewed and are negative <GONZALEZ Hammer Last Filed: 02/28/22 20:58> Constitutional: Constitutional: Reports as per HPI <GONZALEZ Hammer Last Filed: 02/28/22 20:58> [facility] Past Medical History Attestation statement: The following information was validated with the patient. <GONZALEZ Hammer - Last Filed: 02/28/22 20:58> Medical History: Medical History Alcohol dependence Alcohol use disorder Anxiety Chronic post-traumatic stress disorder (PTSD) Depression EtOH dependence Hepatitis C antibody positive in blood MDD (major depressive disorder), recurrent episode, severe <GONZALEZ Hammer - Last Filed: 02/28/22 20:58> Surgical History: Surgical History History of mandibular surgery <GONZALEZ Hammer - Last Filed: 02/28/22 20:58> Family History Family History: Family History Mother Diabetes mellitus Father Leukemia <GONZALEZ Hammer - Last Filed: 02/28/22 20:58> Social History Social History: Social History Household Members: None Household Members Other:: People he met in the community Housing: Homeless Housing Other:: Pt recently lost housing. Friend who had lived with him recently . Do you presently have visiting nurse or other home services: No Unable to assess alcohol history related to: Unknown Alcohol intake: current Alcohol intake frequency: 3 or more drinks per day Alcohol type: beer and hard liquor Patient Tobacco Use Status: Current everyday Tobacco user Tobacco use type: Cigarette Cigarette Packs Per Day: 0.5 Cigarettes Per Day: 20 Years Smoked: 10+ e-Cigarette/Vaping Use: Never Used Second Hand Smoke Exposure: No Substance Use Type: Crack/Cocaine and Heroin Advance Directives: No Advance Directives Information Provided: No service: No Current occupational status: unemployed Sexual orientation: Don't Know <GONZALEZ Hammer - Last Filed: 02/28/22 20:58> Physical Exam ED Vital Signs: Vital Signs - 24 hr 02/28/22 15:04 02/28/22 21:18 Temperature 97.8 F 97.2 F Pulse Rate 82 82 Respiratory Rate 16 16 Blood Pressure 117/83 119/79 Pulse Oximetry 99 98 Oxygen Delivery Method Room Air Room Air BMI result Body Mass Index 30.1 <GONZALZE Hammer Last Filed: 02/28/22 20:58> Vital Signs - 24 hr 02/28/22 15:04 02/28/22 21:18 Temperature 97.8 F 97.2 F Pulse Rate 82 82 Respiratory Rate 16 16 Blood Pressure 117/83 119/79 Pulse Oximetry 99 98 Oxygen Delivery Method Room Air Room Air BMI result Body Mass Index 30.1 <GONZALEZ Montalvo - Last Filed: 02/28/22 22:44> Const Other: no tongue fasciculations <GONZALEZ Hammer Last Filed: 02/28/22 20:58> General: cooperative, healthy appearing, no acute distress and anxious <GONZALEZ Hammre Last Filed: 02/28/22 20:58> Orientation/consciousness: patient oriented x3 <GONZALEZ Hammer - Last Filed: 02/28/22 20:58> Limitations: no limitations <GONZALEZ Hammer Last Filed: 02/28/22 20:58> HENMT Head: Yes normal to inspection, Yes atraumatic, No Martinez's sign and No raccoon eyes <GONZALEZ Hammer Last Filed: 02/28/22 20:58> Ears: hearing grossly normal bilaterally <GONZALEZ Hammer Last Filed: 02/28/22 20:58> General nose exam: Normal external nose present <GONZALEZ Hammer Last Filed: 02/28/22 20:58> Face and sinus: Yes normal facial exam <GONZALEZ Hammer Last Filed: 02/28/22 20:58> Throat: Yes posterior oropharynx normal <GONZALEZ Hammer Last Filed: 02/28/22 20:58> Eyes General: appearance normal, both eyes and all related structures <GONZALEZ Hammer Last Filed: 02/28/22 20:58> Pupils: Equal, round and reactive pupils present <GONZALEZ Hammer Last Filed: 02/28/22 20:58> EOM: EOMs intact bilaterally <Maye Summers PA - Last Filed: 02/28/22 20:58> Neck Other: no midline cervical spinous tenderness <Maye Summers PA - Last Filed: 02/28/22 20:58> Neck: Yes normal visual inspection and Yes no meningeal signs <Maye Summers PA - Last Filed: 02/28/22 20:58> Resp Effort & Inspection: normal respiratory effort and no respiratory distress <Maye Summers PA - Last Filed: 02/28/22 20:58> Auscultation: clear to auscultation bilaterally, no crackles, no rales, no rhonchi and no wheezes <Maye Summers PA - Last Filed: 02/28/22 20:58> Cardio Rate: regular rate <Maye Summers PA - Last Filed: 02/28/22 20:58> Heart sounds: S1 normal heart sound present and S2 normal heart sound present <Maye Summers PA - Last Filed: 02/28/22 20:58> GI Inspection: Yes normal to inspection <Maye Summers PA - Last Filed: 02/28/22 20:58> Palpation (GI): Soft to palpation, nontender, no guarding and not rigid <Maye Summers PA - Last Filed: 02/28/22 20:58> General: Yes no CVA tenderness <Maye Summers PA - Last Filed: 02/28/22 20:58> Back/Spine/Pelvis Other: No midline thoracic/lumbar spinous tenderness/step-off or deformity. + bilateral lower lumbar paraspinal and MSK tenderness <Maye Summers PA - Last Filed: 02/28/22 20:58> Back: no CVA tenderness <Maye Poulkaryn PA - Last Filed: 02/28/22 20:58> Skin Rashes: no rashes <Maye Summers PA - Last Filed: 02/28/22 20:58> Wounds: no wounds <Maye Summers PA - Last Filed: 02/28/22 20:58> Neuro Other: Strength intact throughout. No saddle anesthesia. Sensation intact to light touch. Neurovascular intact distally <GONZALEZ Hammer - Last Filed: 02/28/22 20:58> General: patient oriented x3, tone normal and no meningeal signs <GONZALEZ Hammer Last Filed: 02/28/22 20:58> Cranial nerves: Yes Equal, round and reactive pupils present <GONZALEZ Hammer Last Filed: 02/28/22 20:58> Gait exam (Neuro): Normal gait present <GONZALEZ Hammer Last Filed: 02/28/22 20:58> Motor exam (neuro): Tremors during motor activity present ( mildly tremulous) <GONZALEZ Hammer Last Filed: 02/28/22 20:58> Extrem General: Yes normal to inspection and Yes full ROM <GONZALEZ Hammer Last Filed: 02/28/22 20:58> Course Course Course Narrative: - patient is a difficult stick, causing delay in labs. 6 attempts have been tried without success. Labs still not obtained. Patient currently in a reclining chair as there are no available stretchers, shortly will be moved to stretcher so we can Trendelenburg and try for a EJ - section [address] signed in patient's chart[address] head/brain wo IV con IMPRESSION: 1. No acute intracranial pathology. XR lumbar spine 2-3V IMPRESSION: 1. No subluxation or fracture. 2. Mild multilevel degenerative disc disease. XR chest 1V IMPRESSION: Clear lungs. ? - patient refused to speak with care team. will re-evaluate tomorrow -2100--ED care transferred to GONZALEZ Waterman pending labs & CARE team consult <GONZALEZ Hammer - Last Filed: 02/28/22 20:58> Reevaluation(s) Reevaluation #1: Delay in obtaining laboratory studies due to patient being an extremely difficult stick. CBC within normal limits. Chemistry with no acute electrolyte abnormalities requiring intervention. Patient is noted to have elevated transaminases likely secondary to alcohol abuse however no tenderness to palpation of abdomen. Lipase within normal limits no signs of pancreatitis. Patient without medical complaints at this time. Salicylates, ethanol level negative. Patient COVID negative. CT of the head with no acute findings. X- ray of lumbar spine with no subluxations or fracture. Chest x-ray no acute findings. I examined this patient on I took over care, neuro nonfocal, regular rate and rhythm, lungs clear, abdomen soft nontender nondistended. Patient's CIWA 4, responding well to Librium. I did put in an order for CIWA q.4 hours. Will continue to give Librium. At this time patient will be placed into physician observation to allow more time to be evaluated by the care team. At time observation was started patient common cooperative no acute distress. Patient is not showing any signs of acute alcohol withdrawal, no signs of autonomic dysfunction or delirium tremens. Will continue to monitor. <GONZALEZ Montalvo - Last Filed: 02/28/22 22:44> Time: 22:42 <GONZALEZ Montalvo - Last Filed: 02/28/22 22:44> MDM - Alcohol MDM Narrative Medical decision making narrative: 51-year-old male with a past medical history of ETOH abuse with history of EtOH withdrawal seizures and DTs, hepatitis-C, anxiety, PTSD, MDD, substance abuse, presenting to ED via EMS c/o ETOH/crack cocaine abuse, +SI and time lapse today while on the train tracks. On exam vital signs stable, NAD, mildly tremulous, no midline spinous tenderness throughout, no red flag symptoms. Concern for suicidal ideation/depression vs ETOH dependence/ withdrawal vs withdrawal seizure vs syncope. rule out ICH/metabolic/infectious etiologies plan: EKG, labs, tox screen, CXR, head CT, lumbar x-ray, p.o. Librium, IVF, re- evaluate <GONZALEZ Hammer - Last Filed: 02/28/22 20:58> Differential Diagnosis Differential diagnosis: Likely alcohol dependence, hypomagnesemia, alcohol intoxication, alcohol ketoacidosis, alcohol withdrawal syndrome and alcohol withdrawal seizure <GONZALEZ Hammer - Last Filed: 02/28/22 20:58> Medical Records Attestation: I reviewed the patient's medical records. <GONZALEZ Hammer Last Filed: 02/28/22 20:58> Lab Data Attestation: I reviewed the patient's lab results. <GONZALEZ Hammer Last Filed: 02/28/22 20:58> Result diagrams: : 02/28/22 21:45 02/28/22 21:45 <GONZALEZ Hammer - Last Filed: 02/28/22 20:58> Labs: Lab Results 02/28/22 02/28/22 02/28/22 Range/Units 16:30 21:45 21:45 WBC 8.8 (4.8-10.8) X10*3/uL RBC 4.43 L (4.60-5.80) X10*6/uL Hgb 13.3 L (14.0-18.0) g/dl Hct 38.0 L (42.0-52.0) % MCV 85.8 (80.0-98.0) fL MCH 30.0 (27.0-33.0) pg MCHC 35.0 (31.0-36.0) g/dl RDW 12.7 (11.0-16.0) % Plt Count 247 (160-400) X10*3/uL MPV 10.0 (9.4-12.4) fL Immature Gran % (Auto) 0.2 (0.0-0.4) % Neut % (Auto) 61.4 (45-73) % Lymph % (Auto) 24.7 (20-40) % Woodson % (Auto) 11.8 H (2-11) % Eos % (Auto) 1.2 (0-4) % Baso % (Auto) 0.7 (0-2) % Lymph # (Auto) 2.2 (1.2-4.9) X10*3/uL Woodson # (Auto) 1.0 (0.1-1.2) X10*3/uL Eos # (Auto) 0.1 (0.0-0.4) X10*3/uL Baso # (Auto) 0.1 (0.0-0.2) X10*3/uL Abs Immat Gran (auto) 0.02 (0.00-0.03) X10*3/uL Absolute Neuts (auto) 5.4 (2.0-8.3) x10*3/uL Absolute Nucleated RBC 0.000 (0.0-0.012) X10*3/uL Nucleated RBC % (auto) 0.0 (0.0-0.2) /100WBC PT (10.0-13.1) SEC INR (0.9-1.1) Sodium 139 (135-145) mmol/L Potassium 3.6 (3.3-5.1) mmol/L Chloride 101 (96-108) mmol/L Carbon Dioxide 26 (22-29) mmol/L Anion Gap 16 (12-20) BUN 22 H (9-16) mg/dL Creatinine 1.19 (0.5-1.4) mg/dL Estim Creat Clear Calc 85.0 Estimated GFR > 60 Random Glucose 101 D (60-115) mg/dL Lactic Acid (0.5-2.0) mmol/L Calcium 8.9 (8.4-10.2) mg/dL Magnesium 2.2 (1.6-2.6) mg/dL Total Bilirubin 0.9 (0.0-1.0) mg/dL Direct Bilirubin 0.4 (0.0-0.5) mg/dL AST 316 H (5-37) U/L ALT 110 H (0-40) U/L Alkaline Phosphatase 69 (39-117) U/L Troponin I High Sens (<3.5-35.0) ng/L Total Protein 6.6 (6.5-8.0) g/dL Albumin 4.4 (3.5-5.0) g/dL Lipase 5 L (8-78) U/L Salicylates < 5.0 L (15-30) mg/dL Ethyl Alcohol < 10 mg/dL COVID-19 (LINK) Negative (Negative) COVID-19 Clin Com See Note 02/28/22 02/28/22 02/28/22 Range/Units 21:45 21:45 21:45 WBC (4.8-10.8) X10*3/uL RBC (4.60-5.80) X10*6/uL Hgb (14.0-18.0) g/dl Hct (42.0-52.0) % MCV (80.0-98.0) fL MCH (27.0-33.0) pg MCHC (31.0-36.0) g/dl RDW (11.0-16.0) % Plt Count (160-400) X10*3/uL MPV (9.4-12.4) fL Immature Gran % (Auto) (0.0-0.4) % Neut % (Auto) (45-73) % Lymph % (Auto) (20-40) % Woodson % (Auto) (2-11) % Eos % (Auto) (0-4) % Baso % (Auto) (0-2) % Lymph # (Auto) (1.2-4.9) X10*3/uL Woodson # (Auto) (0.1-1.2) X10*3/uL Eos # (Auto) (0.0-0.4) X10*3/uL Baso # (Auto) (0.0-0.2) X10*3/uL Abs Immat Gran (auto) (0.00-0.03) X10*3/uL Absolute Neuts (auto) (2.0-8.3) x10*3/uL Absolute Nucleated RBC (0.0-0.012) X10*3/uL Nucleated RBC % (auto) (0.0-0.2) /100WBC PT 12.8 (10.0-13.1) SEC INR 1.1 (0.9-1.1) Sodium (135-145) mmol/L Potassium (3.3-5.1) mmol/L Chloride (96-108) mmol/L Carbon Dioxide (22-29) mmol/L Anion Gap (12-20) BUN (9-16) mg/dL Creatinine (0.5-1.4) mg/dL Estim Creat Clear Calc Estimated GFR Random Glucose (60-115) mg/dL Lactic Acid 1.4 (0.5-2.0) mmol/L Calcium (8.4-10.2) mg/dL Magnesium (1.6-2.6) mg/dL Total Bilirubin (0.0-1.0) mg/dL Direct Bilirubin (0.0-0.5) mg/dL AST (5-37) U/L ALT (0-40) U/L Alkaline Phosphatase (39-117) U/L Troponin I High Sens 6.8 (<3.5-35.0) ng/L Total Protein (6.5-8.0) g/dL Albumin (3.5-5.0) g/dL Lipase (8-78) U/L Salicylates (15-30) mg/dL Ethyl Alcohol mg/dL COVID-19 (LINK) (Negative) COVID-19 Clin Com <GONZALEZ Hammer - Last Filed: 02/28/22 20:58> Lab Results 02/28/22 02/28/22 02/28/22 Range/Units 16:30 21:45 21:45 WBC 8.8 (4.8-10.8) X10*3/uL RBC 4.43 L (4.60-5.80) X10*6/uL Hgb 13.3 L (14.0-18.0) g/dl Hct 38.0 L (42.0-52.0) % MCV 85.8 (80.0-98.0) fL MCH 30.0 (27.0-33.0) pg MCHC 35.0 (31.0-36.0) g/dl RDW 12.7 (11.0-16.0) % Plt Count 247 (160-400) X10*3/uL MPV 10.0 (9.4-12.4) fL Immature Gran % (Auto) 0.2 (0.0-0.4) % Neut % (Auto) 61.4 (45-73) % Lymph % (Auto) 24.7 (20-40) % Woodson % (Auto) 11.8 H (2-11) % Eos % (Auto) 1.2 (0-4) % Baso % (Auto) 0.7 (0-2) % Lymph # (Auto) 2.2 (1.2-4.9) X10*3/uL Woodson # (Auto) 1.0 (0.1-1.2) X10*3/uL Eos # (Auto) 0.1 (0.0-0.4) X10*3/uL Baso # (Auto) 0.1 (0.0-0.2) X10*3/uL Abs Immat Gran (auto) 0.02 (0.00-0.03) X10*3/uL Absolute Neuts (auto) 5.4 (2.0-8.3) x10*3/uL Absolute Nucleated RBC 0.000 (0.0-0.012) X10*3/uL Nucleated RBC % (auto) 0.0 (0.0-0.2) /100WBC PT (10.0-13.1) SEC INR (0.9-1.1) Sodium 139 (135-145) mmol/L Potassium 3.6 (3.3-5.1) mmol/L Chloride 101 (96-108) mmol/L Carbon Dioxide 26 (22-29) mmol/L Anion Gap 16 (12-20) BUN 22 H (9-16) mg/dL Creatinine 1.19 (0.5-1.4) mg/dL Estim Creat Clear Calc 85.0 Estimated GFR > 60 Random Glucose 101 D (60-115) mg/dL Lactic Acid (0.5-2.0) mmol/L Calcium 8.9 (8.4-10.2) mg/dL Magnesium 2.2 (1.6-2.6) mg/dL Total Bilirubin 0.9 (0.0-1.0) mg/dL Direct Bilirubin 0.4 (0.0-0.5) mg/dL AST 316 H (5-37) U/L ALT 110 H (0-40) U/L Alkaline Phosphatase 69 (39-117) U/L Troponin I High Sens (<3.5-35.0) ng/L Total Protein 6.6 (6.5-8.0) g/dL Albumin 4.4 (3.5-5.0) g/dL Lipase 5 L (8-78) U/L Salicylates < 5.0 L (15-30) mg/dL Ethyl Alcohol < 10 mg/dL COVID-19 (LINK) Negative (Negative) COVID-19 Clin Com See Note 02/28/22 02/28/22 02/28/22 Range/Units 21:45 21:45 21:45 WBC (4.8-10.8) X10*3/uL RBC (4.60-5.80) X10*6/uL Hgb (14.0-18.0) g/dl Hct (42.0-52.0) % MCV (80.0-98.0) fL MCH (27.0-33.0) pg MCHC (31.0-36.0) g/dl RDW (11.0-16.0) % Plt Count (160-400) X10*3/uL MPV (9.4-12.4) fL Immature Gran % (Auto) (0.0-0.4) % Neut % (Auto) (45-73) % Lymph % (Auto) (20-40) % Woodson % (Auto) (2-11) % Eos % (Auto) (0-4) % Baso % (Auto) (0-2) % Lymph # (Auto) (1.2-4.9) X10*3/uL Woodson # (Auto) (0.1-1.2) X10*3/uL Eos # (Auto) (0.0-0.4) X10*3/uL Baso # (Auto) (0.0-0.2) X10*3/uL Abs Immat Gran (auto) (0.00-0.03) X10*3/uL Absolute Neuts (auto) (2.0-8.3) x10*3/uL Absolute Nucleated RBC (0.0-0.012) X10*3/uL Nucleated RBC % (auto) (0.0-0.2) /100WBC PT 12.8 (10.0-13.1) SEC INR 1.1 (0.9-1.1) Sodium (135-145) mmol/L Potassium (3.3-5.1) mmol/L Chloride (96-108) mmol/L Carbon Dioxide (22-29) mmol/L Anion Gap (12-20) BUN (9-16) mg/dL Creatinine (0.5-1.4) mg/dL Estim Creat Clear Calc Estimated GFR Random Glucose (60-115) mg/dL Lactic Acid 1.4 (0.5-2.0) mmol/L Calcium (8.4-10.2) mg/dL Magnesium (1.6-2.6) mg/dL Total Bilirubin (0.0-1.0) mg/dL Direct Bilirubin (0.0-0.5) mg/dL AST (5-37) U/L ALT (0-40) U/L Alkaline Phosphatase (39-117) U/L Troponin I High Sens 6.8 (<3.5-35.0) ng/L Total Protein (6.5-8.0) g/dL Albumin (3.5-5.0) g/dL Lipase (8-78) U/L Salicylates (15-30) mg/dL Ethyl Alcohol mg/dL COVID-19 (LINK) (Negative) COVID-19 Clin Com <GONZALEZ Montalvo - Last Filed: 02/28/22 22:44> ECG Data ECG #1: Attestation: I personally reviewed and interpreted this ECG as follows: <GONZALEZ Hammer - Last Filed: 02/28/22 20:58> ECG interpretation date: 02/28/22 <GONZALEZ Hammer - Last Filed: 02/28/22 20:58> ECG interpretation time: 16:08 <GONZALEZ Hammer Last Filed: 02/28/22 20:58> Interpretation: EKG NSR at a rate of 80. Pr interval 132. QTC 445. No semi. Nonischemic <GONZALEZ Hammer Last Filed: 02/28/22 20:58> Critical Care Time Critical Care Time Critical Care Time: No <GONZALEZ Montalvo Last Filed: 02/28/22 22:44> Discharge Plan Discharge Clinical Impression: Alcohol dependence, Suicidal ideations <GONZALEZ Hammer Last Filed: 02/28/22 20:58> Patient Disposition: Still a Patient <GONZALEZ Hammer Last Filed: 02/28/22 20:58> Prescriptions: No Action buprenorphine-naloxone [Suboxone] 8-2 mg film 1 film sublingual BID nicotine 21 mg/24 hr Patch 24 Hour 21 mg transdermal DAILY PRN (Reason: smoking cessation) Qty: 30 0RF nicotine (polacrilex) 2 mg Gum 4 mg buccal Q2H PRN (Reason: Nicotine Cravings) Qty: 30 0RF prazosin 1 mg Capsule 5 mg PO BEDTIME Qty: 20 0RF Protocol: Hold for SBP< HOLD for SBP < : 90 gabapentin 400 mg Capsule 800 mg PO TID Qty: 60 0RF hydroxyzine HCl 50 mg Tablet 50 mg PO TID PRN (Reason: anxiety) Qty: 45 0RF quetiapine 100 mg Tablet 100 mg PO BEDTIME Qty: 30 0RF mirtazapine 15 mg Tablet 15 mg PO BEDTIME Qty: 30 0RF bupropion HCl 150 mg Tablet Extended Release 24 Hr 450 mg PO DAILY Qty: 30 0RF buprenorphine-naloxone [Suboxone] 8-2 mg film 1 film sublingual BID Qty: 14 0RF cyclobenzaprine 10 mg tablet 10 mg PO TID PRN (Reason: muscle spasm) 7 Days Qty: 21 0RF <GONZALEZ Hammer - Last Filed: 02/28/22 20:58>
[2022-02-28 16:55] LABS: COVID-19 Test Negative (Negative); IDNOW Serial# 55D5AD1C
[2022-02-28] MEDS: chlordiazePOXIDE HCl 25 MG CAPSULE 50 MG PO ×2 (17:05→23:21)
--- NOTE | 2022-02-28 19:08 | MHC.CARE ---
Care Team attempted to meet with Pt, however, he declined. Pt is to be reassessed at a later time.
--- NOTE | 2022-02-28 19:46 | PC.NURSE ---
Pt. changed over to behavioral scrubs
[2022-02-28] MEDS: LORazepam 1 MG TABLET PO (19:53)
--- NOTE | 2022-02-28 19:53 | PC.NURSE ---
Pt. moved from wilkins chair to 22H bed. Seizure pads in place on the bed at this time.
--- NOTE | 2022-02-28 20:08 | PC.NURSE ---
MD Iraj to bedside at this time for IV access and to obtain lab draws
--- NOTE | 2022-02-28 20:15 | PC.NURSE ---
This RN and Javy Galo MD at bedside to attempt IV access
--- NOTE | 2022-02-28 20:30 | PC.NURSE ---
Jere Baez MD at bedside at this time continuing to attempt to obtain IV access
[2022-02-28 21:18] VITALS: BP 119/79; PULSE 82; RESP 16; TEMP 36.2; O2SAT 98
--- NOTE | 2022-02-28 21:20 | PC.NURSE ---
Per GONZALEZ Aguirre, due to many unsuccessful attempts at IV access by multiple RNs and providers, please just draw a CBC and CMP via fingerstick for this pt. Seeking clarification with PA now to confirm that we are omitting IVF
--- NOTE | 2022-02-28 21:30 | PC.NURSE ---
Pt.'s labs obtained via fingerstick method
[2022-02-28 21:51] LABS: MANUAL DIFF FLAG NO
[2022-02-28 21:53] LABS: Basophils Absolute Auto 0.1 X10*3/uL (0.0-0.2); Basophils Percent Auto 0.7 % (0-2); Eosinophils Absolute Auto 0.1 X10*3/uL (0.0-0.4); Eosinophils Percent Auto 1.2 % (0-4); Hemoglobin 13.3 g/dl (14.0-18.0); Imm Gran Abs Auto 0.02 X10*3/uL (0.00-0.03); Imm Gran Pct Auto 0.2 % (0.0-0.4); Lymphocytes Absolute Auto 2.2 X10*3/uL (1.2-4.9); Lymphocytes Percent Auto 24.7 % (20-40); Mean Corpuscular Volume 85.8 fL (80.0-98.0); Monocytes Percent Auto 11.8 % (2-11); Neutrophils Absolute Auto 5.4 x10*3/uL (2.0-8.3); Neutrophils Percent Auto 61.4 % (45-73); Platelet Count 247 X10*3/uL (160-400); Red Blood Count 4.43 X10*6/uL (4.60-5.80); Red Cell Distribution Width 12.7 % (11.0-16.0); White Blood Count 8.8 X10*3/uL (4.8-10.8)
[2022-02-28 22:08] LABS: INTERNATIONAL NORM RATIO 1.1 (0.9-1.1); Prothrombin Time 12.8 SEC (10.0-13.1)
[2022-02-28 22:09] LABS: Lactic Acid 1.4 mmol/L (0.5-2.0)
[2022-02-28 22:17] LABS: Troponin-I High Sensitivity 6.8 ng/L (<3.5-35.0)
[2022-02-28 22:34] LABS: Alanine Aminotransferase 110 U/L (0-40); Albumin Level 4.4 g/dL (3.5-5.0); Alkaline Phosphatase 69 U/L (39-117); Anion Gap 16 (12-20); Aspartate Amino Transferase 316 U/L (5-37); Bilirubin Direct 0.4 mg/dL (0.0-0.5); Bilirubin Total 0.9 mg/dL (0.0-1.0); Blood Urea Nitrogen 22 mg/dL (9-16); Calcium 8.9 mg/dL (8.4-10.2); Carbon Dioxide 26 mmol/L (22-29); Chloride 101 mmol/L (96-108); Estimated Glomerular Filt Rate > 60; Ethanol < 10 mg/dL; Glucose Random 101 mg/dL (60-115); Lipase 5 U/L (8-78); Magnesium 2.2 mg/dL (1.6-2.6); Potassium 3.6 mmol/L (3.3-5.1); Salicylate < 5.0 mg/dL (15-30); Sodium 139 mmol/L (135-145); Total Protein 6.6 g/dL (6.5-8.0)
--- NOTE | 2022-02-28 23:17 | PC.NURSE ---
Pt. reports to this RN that he is starting to feel awful due to the withdrawals. Will administer PRN Librium at this time and notify provider
[2022-03-01] VITALS (7 sets, daily range): BP systolic 112–140; BP diastolic 62–81; PULSE 74–97; RESP 16–20; TEMP 36.2–36.8; O2SAT 96–98; BMI 26.8
--- NOTE | 2022-03-01 00:11 | PC.NURSE ---
PATIENT HAD SUN BUTTER AND JELLY SANDWICH ,ICE CREAM AND APPLE JUICE FOR SNACK
[2022-03-01 00:50] LABS: Acetaminophen LAB < 1 mcg/mL (<30)
--- NOTE | 2022-03-01 01:01 | PC.NURSE ---
Pt. tells this RN that he is having cramping/spasms to BAUTISTA legs and is requesting medication. RN speaking with Jere Baez MD. states that he will speak to PA regarding meds.
--- NOTE | 2022-03-01 01:15 | PC.NURSE ---
GONZALEZ Saucead writing pt. for 0.5mg Ativan re: c/o leg spasms/pain
[2022-03-01] MEDS: LORazepam 0.5 MG TABLET PO (01:55)
--- NOTE | 2022-03-01 04:15 | PC.NURSE ---
Pt. approached this RN asking about pain medication for his legs. This RN explained to pt. that the 0.5mg Ativan he had received a few hours ago was prescribed by the PA for his leg spasms. Pt. visibily upset and walked away from this RN. MD Eddie notified and over to talk to pt. with this RN. Pt. did not mention his leg spasm concern to , but told MD that he is unhappy with his detox medication regimine and the fact that we are giving him Librium here. Pt. states that in the past, Ativan has worked best for him. MD Eddie agreeable to this and states to this RN that he will write pt. for 2mg Ativan Q4hrs PRN
--- NOTE | 2022-03-01 04:34 | PC.NURSE ---
Order for Librium Q6hrs discontinued
[2022-03-01] MEDS: LORazepam 1 MG TABLET 2 MG PO ×5 (04:40→21:18)
--- NOTE | 2022-03-01 09:20 | PC.NURSE ---
care team at bedside pt aware of plan of care.
--- NOTE | 2022-03-01 10:16 | PC.NURSE ---
pt is a/o x 4 no sob/sonja noted speaks in full sentences. lungs - cta. heart sounds - regular. abd soft n/t, bs X + 4 quads. pt has eaten multi sandwiches plus his breakfast. pt spoke with care team earlier and is aware of plan of care.
--- NOTE | 2022-03-01 11:43 | PC.NURSE ---
rn to rn given to randell, pt transferred to the pod.
[2022-03-01 14:05] LABS: Appearance Urine Clear; Color Urine Yellow; Glucose Urine UA Negative (Negative); Leukocyte Esterase Urine Negative (Negative); Nitrite Urine Negative (Negative); Specific Gravity - Urine 1.015 (1.005-1.025); Urine Blood Negative (Negative); Urine Ketones Negative (Negative); Urine Protein Negative (Neg-Trace)
[2022-03-01 14:18] LABS: Amphetamine Screen Urine Not Detected (Not Detect); Barbiturates, Urine Not Detected (Not Detect); Benzodiazepines Screen Urine POSITIVE (Not Detect); Cannabinoid Screen Urine Not Detected (Not Detect); Cocaine Screen Urine POSITIVE (Not Detect); Fentanyl, urine Not Detected (Not Detect); Opiate Screen Urine Not Detected (Not Detect); Phencyclidine Screen Urine Not Detected (Not Detect)
--- NOTE | 2022-03-01 14:39 | PHA.MEDREC ---
Pharmacy Consult ? Medication Reconciliation Pharmacy has completed the medication reconciliation. Spoke with patient in the ED. Patient knew all medications. He last took his medications yesterday
--- OUTSIDE RECORDS SUMMARY | 2022-03-01 16:07 | XMS_ITS | Continuity of Care Document ---
:1970 Author Organization [facility] Address [address] [place] [address]- Care Team Providers Name Role Phone Dionicio OLSEN, Caitlyn Primary Care Physician [place] [facility] [place] - 12/20/[address] [id number] Encounter Diagnosis Ingestion of toxic substance (Final) - 12/14/20 Discharge Disposition: Transfer to [facility] Facility Attending Physician: Naa Reyes MD Admitting Physician: Fransico Callejas MD Referring Physician: Not on Staff, Referring MD Allergies, Adverse Reactions, Alerts Substance Reaction Severity Status NKA Active Immunizations Given and Recorded Vaccine Date Status Refusal Reason tetanus/diphtheria/pertussis, acel(Tdap) 09/27/20 Recorde d tetanus/diphtheria/pertussis, acel(Tdap) 07/06/16 Given SARS-CoV-2 (COVID-19) mRNA-1273 vaccine 07/26/20 Recorded SARS-CoV-2 (COVID-19) mRNA-1273 vaccine 06/28/20 Recorded influenza virus vaccine, inactivated 06/09/18 Recorded Medications busPIRone 15 mg oral tablet 1 tablet = 15 mg, Daily, 0 Refills, Maintenance, 12/15/20 0:45:00 EDT, Partial fill upon patient request if the prescription is for a schedule II opioid drug. Start Date: 12/15/20 Status: Orderedfolic acid 1 mg oral tablet 1 mg, 1, tablet, By Mouth, Daily, Refills 0, Maintenance, 12/20/20 8:29:00 EDT, Partial fill upon patient request if the prescription is for a schedule II opioid drug. Start Date: 12/20/20 Status: OrderedhydrOXYzine pamoate 50 mg oral capsule 1 capsule = 50 mg, By Mouth, 4 times a day, PRN for anxiety, # 40 capsule, 0 Refills, Maintenance, 12/15/20 0:45:00 EDT, Capsule, Partial fill upon patient request if the prescription is for a scheduleII opioid drug. Start Date: 12/15/20 Status: OrderedMaalox Plus Liquid 15 mL, By Mouth, 4 times a day, PRN Dyspepsia, 0 Refills, Maintenance, 12/20/20 8:29:00 EDT, Suspension, Partial fill upon patient request if the prescription is for a schedule II opioid drug. Start Date: 12/20/20 Status: Orderedmirtazapine 30 mg oral tablet 1.5 tablet = 45 mg, Daily at bedtime, 0 Refills, Maintenance, 12/15/20 0:45:00 EDT, Partial fill upon patient request if the prescription is for a schedule II opioid drug. Start Date: 12/15/20 Status: OrderedPyridoxine Tablet 50 mg, By Mouth, Daily, Refills 0, Maintenance, 12/20/20 8:29:00 EDT, Partial fill upon patient request if the prescription is for a schedule II opioid drug. Start Date: 12/20/20 Status: OrderedSuboxone 8 mg-2 mg Sublingual Film 2 film, Sublingual, Daily, dissolve under the tongue, 0 Refills, Maintenance, 12/15/20 2:08:00 EDT, Film, Partial fill upon patient request if the prescription is for a schedule II opioid drug. Start Date: 12/15/20 Status: Orderedthiamine 100 mg oral tablet 100 mg, 1, tablet, By Mouth, 2 times a day, Refills 0, Maintenance, 12/20/20 8:29:00 EDT, Partial fill upon patient request if the prescription is for a schedule II opioid drug. Start Date: 12/20/20 Status: OrderedtraZODone 50 mg oral tablet 150 mg, 3, tablet, By Mouth, Daily, Refills 0, Maintenance, 12/20/20 11:46:00 EDT, Partial fill uponpatient request if the prescription is for a schedule II opioid drug. Start Date: 12/20/20 Status: Orderedziprasidone 60 mg oral capsule TAKE 1 CAPSULE BY MOUTH TWICE A DAY. Start Date: 12/16/20 Status: Ordered Problem List Condition Effective Dates Status Health Status Informant Alcohol abuse(Confirmed) Active Closed fracture of mandible(Confirmed) Active Polysubstance abuse(Confirmed) Active Vital Signs Most recent to oldest 1 2 3 [Reference Range]: Height 185 cm 185 cm 185 cm (12/19/20 7:00 PM) (12/19/20 2:33 PM) (12/18/20 7:0 0 PM) Weight 105.9 kg (12/15/20 1:47 AM) Oxygen Saturation [94-100 %] 95 % 98 % 99 % (12/20/20 7:00 AM) (12/19/20 7:00 PM) (12/19/20 2:3 3 PM) Pulse Rate [55-90 bpm] 68 bpm 74 bpm 75 bpm (12/20/20 7:00 AM) (12/20/20 12:40 AM) (12/19/20 8: 37 PM) Body Mass Index [18.5-24.99] 30.94 *>HHI* (12/15/20 1:47 AM) Blood Pressure [90-138/55-84 120/57 mm Hg 129/80 mm Hg 137 /71 mm Hg mm Hg] (12/20/20 7:00 AM) (12/20/20 12:40 AM) (12/19/20 8: 37 PM) Respiratory Rate [16-30 18 br/min 16 br/min 19 br/mi n br/min] (12/20/20 7:00 AM) (12/20/20 12:40 AM) (12/19/20 8: 37 PM) Temperature [96.8-100.4 DegF] 97.9 DegF 97.9 DegF 98 .2 DegF (12/20/20 7:00 AM) (12/19/20 7:00 PM) (12/19/20 2:3 3 PM) Liters per Minute 3 L/min (12/18/20 7:00 PM) Mode of Delivery (Oxygen) Room air Room air Room a ir (12/20/20 7:00 AM) (12/19/20 7:00 PM) (12/19/20 2:3 3 PM) Blood pressure sites Arm, left Arm, left Leg, right (12/20/20 7:00 AM) (12/19/20 7:00 PM) (12/19/20 2:3 3 PM) Temperature Route Oral Oral Oral (12/20/20 7:00 AM) (12/19/20 7:00 PM) (12/19/20 2:3 3 PM) Dry Weight 105.9 kg (12/15/20 1:47 AM) Weight Obtained Via Bed scale (12/15/20 1:47 AM) Dry Weight Obtained Via Bed scale (12/15/20 1:47 AM) Social History Social History Type Response Smoking Status Current every day smoker; To bacco user in household: No entered on: 07/26/16 Sex
--- OUTSIDE RECORDS SUMMARY | 2022-03-01 16:07 | XMS_ITS | Continuity of Care Document ---
:1970 Author Organization [facility] Address [address] [place] [address]- Care Team Providers Name Role Phone Dionicio OLSEN, Caitlyn Primary Care Physician Encounter [facility] [place] Date(s): 04/06/21 - 04/17/21 [facility] [address] [place] [id number] Encounter Diagnosis Alcohol withdrawal (Final) - 04/06/21 Suicide attempt (Final) - 04/06/21 Medication overdose (Final) - 04/06/21 Discharge Disposition: Disch/Trans to IP Rehab or unit w/in Hos Attending Physician: Carlos Cano Sr, MD Admitting Physician: Daniel Perez MD Referring Physician: Not on Staff, Referring MD Allergies, Adverse Reactions, Alerts Substance Reaction Severity Status PHENobarbital Vomiting Moderate Active Immunizations Given and Recorded Vaccine Date Status Refusal Reason influenza virus vaccine, inactivated 03/21/21 Recorded influenza virus vaccine, inactivated 06/09/18 Recorded tetanus/diphtheria/pertussis, acel(Tdap) 09/27/20 Recorde d tetanus/diphtheria/pertussis, acel(Tdap) 07/06/16 Given SARS-CoV-2 (COVID-19) mRNA-1273 vaccine 07/26/20 Recorded SARS-CoV-2 (COVID-19) mRNA-1273 vaccine 06/28/20 Recorded Medications folic acid 1 mg oral tablet 1 mg, 1, tablet, By Mouth, Daily, Refills 0, Maintenance, 04/17/21 15:01:00 EST, Partial fill upon patient request if the prescription is for a schedule II opioid drug. Start Date: 04/17/21 Status: Orderedgabapentin 400 mg oral capsule 800 mg, Capsule, By Mouth, 04/17/21 15:00:00 EST Start Date: 04/17/21 Stop Date: 04/17/21 Status: Completedgabapentin 800 mg oral tablet 1 tablet = 800 mg, By Mouth, 3 times a day, # 90 tablet, 0 Refills, Maintenance, 02/02/21 23:11:00 EDT, Tablet, Partial fill upon patient request if the prescription is for a schedule II opioid drug. Start Date: 02/02/21 Status: OrderedMaalox Plus Liquid 15 mL, By Mouth, 4 times a day, PRN Dyspepsia, 0 Refills, Maintenance, 12/20/20 8:29:00 EDT, Suspension, Partial fill upon patient request if the prescription is for a schedule II opioid drug. Start Date: 12/20/20 Status: Orderedmirtazapine 7.5 mg oral tablet 1 tablet = 7.5 mg, By Mouth, Daily at bedtime, 0 Refills, Maintenance, 02/02/21 23:13:00 EDT, Partial fill upon patient request if the prescription is for a schedule II opioid drug. Start Date: 02/02/21 Status: OrderedNarcan 4 mg/0.1 mL nasal spray = 4 mg, Once, 0 Refills, Maintenance, 02/02/21 23:14:00 EDT, Partial fill upon patient request if the prescription is for a schedule II opioid drug. Start Date: 02/02/21 Status: Orderednicotine 21 mg/24 hr transdermal film, extended release 1 patch, Topically, Daily, # 30 patch, 0 Refills, Maintenance, 02/02/21 23:09:00 EDT, Patch, Partialfill upon patient request if the prescription is for a schedule II opioid drug. Start Date: 02/02/21 Status: Orderedprazosin 1 mg oral capsule 5 mg, By Mouth, Daily at bedtime, Refills 0, Maintenance, 02/02/21 23:10:00 EDT, Partial fill upon patient request if the prescription is for a schedule II opioid drug. Start Date: 02/02/21 Status: OrderedQUEtiapine 25 mg oral tablet 100 mg, By Mouth, Daily at bedtime, Refills 0, Maintenance, 02/02/21 23:13:00 EDT, Partial fill uponpatient request if the prescription is for a schedule II opioid drug. Start Date: 02/02/21 Status: OrderedSuboxone 8 mg-2 mg Sublingual Film 2 film, Sublingual, Daily, dissolve under the tongue, 0 Refills, Maintenance, 12/15/20 2:08:00 EDT, Film, Partial fill upon patient request if the prescription is for a schedule II opioid drug. Start Date: 12/15/20 Status: Orderedthiamine 100 mg oral tablet 100 mg, 1, tablet, By Mouth, 2 times a day, Refills 0, Maintenance, 04/17/21 15:01:00 EST, Partial fill upon patient request if the prescription is for a schedule II opioid drug. Start Date: 04/17/21 Status: Ordered Problem List Condition Effective Dates Status Health Status Informant Alcohol abuse(Confirmed) Active Closed fracture of mandible(Confirmed) Active Obese class I(Confirmed) Active Polysubstance abuse(Confirmed) Active Vital Signs Most recent to oldest 1 2 3 [Reference Range]: Weight 115.9 kg 115.6 kg 113.9 kg (04/17/21 4:00 AM) (04/14/21 5:28 AM) (04/12/21 6:08 AM) Oxygen Saturation [94-100 97 % 96 % 97 % %] (04/17/21 3:49 PM) (04/17/21 11:37 AM) (04/17/21 4:00 AM) Pulse Rate [55-90 bpm] 79 bpm 66 bpm 72 bpm (04/17/21 3:49 PM) (04/17/21 11:37 AM) (04/17/21 4:00 AM) Blood Pressure 127/65 mm Hg 98/59 mm Hg 112/49 mm Hg [90-138/55-84 mm Hg] (04/17/21 3:49 PM) (04/17/21 11:37 AM) ( 4:00 AM) Respiratory Rate [16-30 17 br/min 20 br/min 17 br/mi n br/min] (04/17/21 4:20 PM) (04/17/21 3:49 PM) (04/17/21 3:20 PM) Temperature [96.8-100.4 97.3 DegF 98.6 DegF 98.6 Deg F DegF] (04/17/21 3:49 PM) (04/17/21 11:37 AM) (04/17/21 4:00 AM) Mode of Delivery (Oxygen) Room air Room air Room a ir (04/17/21 3:49 PM) (04/17/21 11:37 AM) (04/17/21 4:00 AM) Blood pressure sites Arm, left Arm, right Arm, right (04/17/21 3:49 PM) (04/17/21 11:37 AM) (04/17/21 4:00 AM) Temperature Route Oral Oral Oral (04/17/21 3:49 PM) (04/17/21 11:37 AM) (04/17/21 4:00 AM) Weight Obtained Via Bed scale Bed scale Bed scale (04/14/21 5:28 AM) (04/12/21 6:08 AM) (04/11/21 6:21 AM) Social History Social History Type Response Smoking Status Current every day smoker; To bacco user in household: No entered on: 07/26/16 Sex
--- OUTSIDE RECORDS SUMMARY | 2022-03-01 16:07 | XMS_ITS | Continuity of Care Document ---
:1970 Author Organization [facility] Address [address] [place] [address]- Care Team Providers Name Role Phone Dionicio OLSEN, Caitlyn Primary Care Physician [place] [facility] [facility] [place](s[place] 02/02/21 - 02/06/21 [facility] [address] [place] [address]- Discharge Disposition: Transfer to [facility] Facility Attending Physician: Janet Ramires MD, Carol Admitting Physician: Bienvenido Sanchez MD Referring Physician: Not on Staff, Referring MD Allergies, Adverse Reactions, Alerts Substance Reaction Severity Status NKA Active Immunizations Given and Recorded Vaccine Date Status Refusal Reason tetanus/diphtheria/pertussis, acel(Tdap) 09/27/20 Recorde d tetanus/diphtheria/pertussis, acel(Tdap) 07/06/16 Given SARS-CoV-2 (COVID-19) mRNA-1273 vaccine 07/26/20 Recorded SARS-CoV-2 (COVID-19) mRNA-1273 vaccine 06/28/20 Recorded influenza virus vaccine, inactivated 06/09/18 Recorded Medications buPROPion 300 mg/24 hours (XL) oral tablet, extended release 1 tablet = 300 mg, By Mouth, Daily, # 30 tablet, 0 Refills, Maintenance, 02/02/21 23:12:00 EDT, ER Tablet, Partial fill upon patient request if the prescription is for a schedule II opioid drug. Start Date: 02/02/21 Status: Orderedgabapentin 400 mg oral capsule 400 mg, Capsule, By Mouth, 02/06/21 9:00:00 EDT Start Date: 02/06/21 Stop Date: 02/06/21 Status: Completedgabapentin 400 mg oral capsule 400 mg, Capsule, By Mouth, 02/06/21 15:00:00 EDT Start Date: 02/06/21 Stop Date: 02/06/21 Status: Completedgabapentin 800 mg oral tablet 1 tablet = 800 mg, By Mouth, 3 times a day, # 90 tablet, 0 Refills, Maintenance, 02/02/21 23:11:00 EDT, Tablet, Partial fill upon patient request if the prescription is for a schedule II opioid drug. Start Date: 02/02/21 Status: OrderedhydrOXYzine pamoate 50 mg oral capsule [...] Daily at bedtime, 0 Refills, Maintenance, 02/02/21 23:03:00 EDT, Partial fill upon patient request if the prescription is for a schedule II opioid drug. Start Date: 02/02/21 Status: Orderedmirtazapine 7.5 mg oral tablet 1 [...] 02/02/21 Status: Orderedprazosin 1 mg oral capsule 1 mg, 1, capsule, By Mouth, Refills 0, Maintenance, 02/02/21 23:10:00 EDT, Partial fill upon patientrequest if the prescription is for a schedule II opioid drug. Start Date: 02/02/21 Status: OrderedQUEtiapine 25 mg oral tablet 25 mg, 1, tablet, By Mouth, 3 times a day, Refills 0, Maintenance, 02/02/21 23:13:00 EDT, Partial fill upon patient request if the prescription is for a schedule II opioid drug. Start Date: 02/02/21 Status: OrderedSuboxone 8 mg-2 mg Sublingual Film 2 film, Sublingual, Daily, dissolve under the tongue, 0 Refills, Maintenance, 12/15/20 2:08:00 EDT, Film, Partial fill upon patient request if the prescription is for a schedule II opioid drug. Start Date: 12/15/20 Status: OrderedtraZODone 50 mg oral tablet 150 mg, 3, tablet, By Mouth, Daily, Refills 0, Maintenance, 12/20/20 11:46:00 EDT, Partial fill uponpatient request if the prescription is for a schedule II opioid drug. Start Date: 12/20/20 Status: Ordered Problem List Condition Effective Dates Status Health Status Informant Alcohol abuse(Confirmed) Active Closed fracture of mandible(Confirmed) Active Polysubstance abuse(Confirmed) Active Vital Signs Most recent to oldest 1 2 3 [Reference Range]: Height 186 cm 186 cm 186 cm (02/06/21 1:04 PM) (02/06/21 8:28 AM) (02/05/21 11: 19 PM) Weight 112.4 kg 112.4 kg 112.4 kg (02/02/21 11:55 PM) (02/02/21 11:53 PM) (02/02/21 1 0:55 PM) Oxygen Saturation [94-100 %] 97 % 98 % 97 % (02/06/21 1:04 PM) (02/06/21 8:28 AM) (02/05/21 11: 19 PM) Pulse Rate [55-90 bpm] 73 bpm 69 bpm 61 bpm (02/06/21 1:04 PM) (02/06/21 8:28 AM) (02/06/21 6:0 1 AM) Body Mass Index [18.5-24.99] 32.49 32.49 *>HHI* *>HHI* (02/02/21 11:53 PM) (02/02/21 10:55 PM) Blood Pressure [90-138/55-84 130/95 mm Hg 145/82 mm Hg 146 /90 mm Hg mm Hg] (02/06/21 1:04 PM) *H* *H* (02/06/21 8:28 AM) (02/05/21 11:19 PM) Respiratory Rate [16-30 20 br/min 18 br/min 20 br/mi n br/min] (02/06/21 3:49 PM) (02/06/21 1:04 PM) (02/06/21 8:4 9 AM) Temperature [96.8-100.4 98.2 DegF 98.2 DegF 97.9 Deg F DegF] (02/06/21 1:04 PM) (02/06/21 8:28 AM) (02/05/21 11: 19 PM) Liters per Minute 0 L/min (02/06/21 1:04 PM) Mode of Delivery (Oxygen) Room air Room air Room a ir (02/06/21 1:04 PM) (02/06/21 8:28 AM) (02/05/21 11: 19 PM) Blood pressure sites Arm, left Arm, left Arm, left (02/06/21 1:04 PM) (02/06/21 8:28 AM) (02/05/21 11: 19 PM) Temperature Route Oral Oral Oral (02/06/21 1:04 PM) (02/06/21 8:28 AM) (02/05/21 11: 19 PM) Dry Weight 111 kg 111 kg 111 kg (02/02/21 10:55 PM) (02/02/21 4:07 PM) (02/02/21 4: 06 PM) Weight Obtained Via Bed scale Bed scale Bed scale (02/02/21 11:55 PM) (02/02/21 11:53 PM) (02/02/21 0:55 PM) Social History Social History Type Response Smoking Status Current every day smoker; To bacco user in household: No entered on: 07/26/16 Sex
--- OUTSIDE RECORDS SUMMARY | 2022-03-01 16:07 | XMS_ITS | Continuity of Care Document ---
:1970 Author Organization [facility] Address [address] [place] [address]- Care Team Providers Name Role Phone Dionicio OLSEN, Caitlyn Primary Care Physician [place] [facility] [place] 09/27/20 - 01/05/21 [facility] [address] [place] [id number] Attending Physician: Joaquin CAMPOVERDE, Miguelina Veloz Admitting Physician: Miguelina Nuñez MD Referring Physician: Caitlyn Greenberg NP Allergies, Adverse Reactions, Alerts Substance Reaction Severity [...] fracture of mandible(Confirmed) Active Polysubstance abuse(Confirmed) Active Social History Social History Type Response Smoking Status Current every day smoker; To bacco user in household: No entered on: 07/26/16 Sex
--- OUTSIDE RECORDS SUMMARY | 2022-03-01 16:07 | XMS_ITS | Continuity of Care Document ---
:1970 Author Organization [facility] Address [address] [place] [address]- Care Team Providers Name Role Phone Dionicio OLSEN, Caitlyn Primary Care Physician [place] [facility] [place] 07[place]23/21 [facility] [address] [place] [id number] Encounter Diagnosis Bupropion overdose (Final) - 07/16/21 Alcohol withdrawal (Final) - 07/16/21 Discharge Disposition: Transfer to [facility] Facility Attending Physician: Ave Holliday MD Admitting Physician: Ramirez Lowe MD Referring Physician: Not on Staff, Referring MD Allergies, Adverse Reactions, Alerts Substance Reaction Severity Status PHENobarbital Vomiting Moderate Active Immunizations Given and Recorded Vaccine Date Status Refusal Reason SARS-CoV-2 (COVID-19) mRNA-1273 vaccine1 05/06/21 Given SARS-CoV-2 (COVID-19) mRNA-1273 vaccine 07/26/20 Recorded SARS-CoV-2 (COVID-19) mRNA-1273 vaccine 06/28/20 Recorded influenza virus vaccine, inactivated 03/21/21 Recorded influenza virus vaccine, inactivated 06/09/18 Recorded tetanus/diphtheria/pertussis, acel(Tdap) 09/27/20 Recorde d tetanus/diphtheria/pertussis, acel(Tdap) 07/06/16 Given 1Early/Late Reason: Early/Late Reason: Other : awaiting pharmacy to bring up Medications buprenorphine-naloxone 2 mg-0.5 mg sublingual film Sublingual, Daily in AM, 0 Refills, Maintenance, 07/23/21 14:53:00 EST, Film, Partial fill upon patient request if the prescription is for a schedule II opioid drug. Start Date: 07/23/21 Status: Orderedbuprenorphine-naloxone 8 mg-2 mg sublingual film Sublingual, Daily, 0 Refills, Maintenance, 07/23/21 14:53:00 EST, Film, Partial fill upon patient request if the prescription is for a schedule II opioid drug. Start Date: 07/23/21 Status: Ordereddiazepam 5 mg oral tablet 5 mg, 1, tablet, By Mouth, Daily, Refills 0, Maintenance, 07/23/21 14:54:00 EST, Partial fill upon patient request if the prescription is for a schedule II opioid drug. Start Date: 07/23/21 Status: OrderedDocusate/Senna Tablet 1 tablet, By Mouth, 2 times a day, PRN Constipation, 0 Refills, Maintenance, 07/23/21 14:54:00 EST, Tablet, Partial fill upon patient request if the prescription is for a schedule II opioid drug. Start Date: 07/23/21 Status: Orderedfolic acid 1 mg oral tablet 1 mg, 1, tablet, By Mouth, Daily, # 30 tablet, Refills 1, Tot. Refills 1, Maintenance, 05/04/21 17:05:00 EST, Route to Pharmacy Electronically, [facility], Partial fill upon patient request if the prescription is for a schedul... Start Date: 05/04/21 Status: Orderedgabapentin 400 mg oral capsule 400 mg, Capsule, By Mouth, 07/23/21 15:00:00 EST Start Date: 07/23/21 Stop Date: 07/23/21 Status: Completedgabapentin 400 mg oral capsule 400 mg, 1, capsule, By Mouth, 3 times a day, Refills 0, Maintenance, 07/23/21 14:54:00 EST, Partial fill upon patient request if the prescription is for a schedule II opioid drug. Start Date: 07/23/21 Status: OrderedMiraLax Powder 1 pack/packet = 17 Gm, By Mouth, Daily, PRN Constipation, 0 Refills, Maintenance, 07/23/21 14:55:00 EST, Powder, Partial fill upon patient request if the prescription is for a schedule II opioid drug. Start Date: 07/23/21 Status: OrderedMultivitamin Tablet 1 tablet, By Mouth, Daily, 0 Refills, Maintenance, 07/23/21 14:55:00 EST, Tablet, Partial fill upon patient request if the prescription is for a schedule II opioid drug. Start Date: 07/23/21 Status: Orderednicotine 14 mg/24 hr transdermal film, extended release 1 patch, Topically, Daily, REMOVE PATCH BEFORE APPLYING A NEW ONE, # 30 patch, 1 Refills, Maintenance, 05/04/21 17:06:00 EST, Patch, [facility] Partial fill upon patient request if the prescription is for a schedule II opioid... Start Date: 05/04/21 Status: Orderednicotine 2 mg oral transmucosal gum = 2 mg, Chew, Every 15 minutes, PRN Other, cigarette craving, # 160 each, 1 Refills, Maintenance, 05/04/21 17:06:00 EST, Gum, [facility]- , Partial fill upon patient request if the prescription is for a schedule II opioid drug.,... Start Date: 05/04/21 Status: OrderedPyridoxine Tablet 50 mg, By Mouth, Daily, Refills 0, Maintenance, 07/23/21 14:55:00 EST, Partial fill upon patient request if the prescription is for a schedule II opioid drug. Start Date: 07/23/21 Status: OrderedQUEtiapine 25 mg oral tablet 50 mg, 2, tablet, By Mouth, 3 times a day, PRN, Refills 0, Maintenance, Psychosis, 07/23/21 14:54:00EST, Partial fill upon patient request if the prescription is for a schedule II opioid drug. Start Date: 07/23/21 Status: Orderedthiamine 100 mg oral tablet 100 mg, 1, tablet, By Mouth, 2 times a day, Refills 0, Maintenance, 07/23/21 14:55:00 EST, Partial fill upon patient request if the prescription is for a schedule II opioid drug. Start Date: 07/23/21 Status: Ordered Problem List Condition Effective Dates Status Health Status Informant Alcohol abuse(Confirmed) Active Closed fracture of mandible(Confirmed) Active Obese class II(Confirmed) Active Polysubstance abuse(Confirmed) Active Vital Signs Most recent to oldest 1 2 3 [Reference Range]: Height 186 cm 186 cm 186 cm (07/23/21 4:13 PM) (07/23/21 11:01 AM) (07/22/21 5: 42 AM) Weight 110.9 kg 111.8 kg 111.2 kg (07/21/21 6:00 AM) (07/20/21 6:00 AM) (07/17/21 2:0 2 AM) Oxygen Saturation [94-100 %] 96 % 97 % 97 % (07/23/21 4:13 PM) (07/23/21 11:01 AM) (07/23/21 5: 00 AM) Pulse Rate [55-90 bpm] 73 bpm 65 bpm 68 bpm (07/23/21 4:13 PM) (07/23/21 11:01 AM) (07/23/21 5: 00 AM) Body Mass Index [18.5-24.99] 32.06 32.32 32. 14 *>HHI* *>HHI* *>HHI* (07/21/21 6:00 AM) (07/20/21 6:00 AM) (07/17/21 1:0 5 AM) Blood Pressure [90-138/55-84 112/59 mm Hg 117/68 mm Hg 101 /60 mm Hg mm Hg] (07/23/21 4:13 PM) (07/23/21 11:01 AM) (07/23/21 5: 00 AM) Respiratory Rate [16-30 19 br/min 18 br/min 18 br/mi n br/min] (07/23/21 4:13 PM) (07/23/21 3:14 PM) (07/23/21 11: 01 AM) Temperature [96.8-100.4 DegF] 97.5 DegF 97.4 DegF 98 .0 DegF (07/23/21 4:13 PM) (07/23/21 11:01 AM) (07/23/21 5: 00 AM) Mode of Delivery (Oxygen) Room air Room air Room a ir (07/23/21 4:13 PM) (07/23/21 11:01 AM) (07/23/21 5: 00 AM) Blood pressure sites Arm, left Arm, left Arm, left (07/23/21 4:13 PM) (07/23/21 11:01 AM) (07/23/21 5: 00 AM) Temperature Route Oral Oral Oral (07/23/21 4:13 PM) (07/23/21 11:01 AM) (07/23/21 5: 00 AM) Dry Weight 111.2 kg (07/17/21 1:05 AM) Weight Obtained Via Bed scale Bed scale Bed scale (07/21/21 6:00 AM) (07/20/21 6:00 AM) (07/17/21 2:0 2 AM) Dry Weight Obtained Via Bed scale (07/17/21 1:05 AM) Social History Social History Type Response Smoking Status Current every day smoker; To bacco user in household: No entered on: 07/26/16 Sex
--- OUTSIDE RECORDS SUMMARY | 2022-03-01 16:07 | XMS_ITS | Continuity of Care Document ---
:1970 Author Organization [facility] Address [address] [place] [address]- Care Team Providers Name Role Phone Caitlyn Greenberg NP Primary Care Physician Encounter [facility] [place]s): 12/06/20 - 01/05/21 [facility] [address] [place] [id number] Attending Physician: Mohinder Grimaldo Admitting Physician: Mohinder Grimaldo Referring Physician: AdmtrMohinder Allergies, Adverse Reactions, Alerts Substance Reaction Severity [...]
--- OUTSIDE RECORDS SUMMARY | 2022-03-01 16:07 | XMS_ITS | Continuity of Care Document ---
:1970 Author Organization [facility] Address [address] [place] [address]- Care Team Providers Name Role Phone Caitlyn Greenberg NP Primary Care Physician Encounter [facility] [place] Date(s): 10/12/20 - 10/12/[address] [address]- Discharge Disposition: A-D/C Walkout Attending Physician: Not on Staff, Attending MD Admitting Physician: Not on Staff, Admitting MD Referring Physician: Not on Staff, Referring MD Allergies, Adverse Reactions, Alerts Substance Reaction Severity Status NKA Active Immunizations Given and Recorded Vaccine Date Status Refusal Reason tetanus/diphtheria/pertussis, acel(Tdap) 07/06/16 Given Medications Colace sodium 100 mg oral capsule 100 mg, 1, capsule, By Mouth, 2 times a day, # 60 capsule, Refills 0, Tot. Refills 0, Maintenance, 01/14/19 11:17:06 EDT, Print Requisition Start Date: 01/14/19 Status: Orderedgabapentin 300 mg oral capsule 300 mg, 1, capsule, By Mouth, Daily at bedtime, Take with Gabapentin 600mg tablet for a total of 900mg at bedtime., # 30 capsule, Refills 0, Tot. Refills 0, Maintenance, 01/14/19 11:15:47 EDT, Print Requisition Start Date: 01/14/19 Status: Orderedgabapentin 600 mg oral tablet 1 tablet = 600 mg, By Mouth, 3 times a day, # 90 tablet, 0 Refills, Maintenance, 01/14/19 11:15:51 EDT, Tablet Start Date: 01/14/19 Status: OrderedGeodon 60 mg oral capsule 1 capsule = 60 mg, By Mouth, 2 times a day, with food at Breakfast and Supper., # 60 capsule, 0 Refills, Maintenance, 01/14/19 11:16:25 EDT, Capsule, This script replaces previous script for 40mg BID Start Date: 01/14/19 Status: Orderedibuprofen 600 mg oral tablet 600 mg, By Mouth, 3 times a day, PRN, Refills 0, Maintenance, Pain , Mild, 01/14/19 11:17:31 EDT Start Date: 01/14/19 Status: Orderedmultivitamin Multiple Vitamins oral tablet 1 tablet, By Mouth, Daily, # 30 tablet, 0 Refills, Maintenance, 01/14/19 11:18:40 EDT, Tablet Start Date: 01/14/19 Status: OrderedRemeron 15 mg oral tablet 1 tablet = 15 mg, By Mouth, Daily at bedtime, # 30 tablet, 0 Refills, Maintenance, 01/14/19 11:16:08EDT, Tablet Start Date: 01/14/19 Status: OrderedSuboxone 8 mg-2 mg sublingual film 2 each, Sublingual, Daily, 16 mg total dose, 0 Refills, Maintenance, 07/19/17 11:51:07 EST Start Date: 07/19/17 Status: OrderedtraZODone 150 mg oral tablet 1 tablet = 150 mg, By Mouth, Daily at bedtime, # 30 tablet, 0 Refills, Maintenance, 01/14/19 11:20:40 EDT, Tablet Start Date: 01/14/19 Status: OrderedWellbutrin XL 300 mg/24 hours oral tablet, extended release 1 tablet = 300 mg, By Mouth, Daily, # 30 tablet, 0 Refills, Maintenance, 01/14/19 11:15:16 EDT, ER Tablet Start Date: 01/14/19 Status: Ordered Problem List Condition Effective Dates Status Health Status Informant Alcohol abuse(Confirmed) Active Closed fracture of mandible(Confirmed) Active Polysubstance abuse(Confirmed) Active Vital Signs Most recent to oldest [Reference Range]: 1 Oxygen Saturation [94-100 %] 99 % (10/12/20 9:27 AM) Pulse Rate [55-90 bpm] 80 bpm (10/12/20 9:27 AM) Respiratory Rate [16-30 br/min] 18 br/min (10/12/20 9:27 AM) Social History Social History Type Response Smoking Status Current every day smoker; To bacco user in household: No entered on: 07/26/16 Sex
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
[2022-03-01] MEDS: Cyclobenzaprine HCl 10 MG TABLET PO ×2 (17:21→21:19)
[2022-03-01] MEDS: LORazepam 1 MG TABLET PO (17:22)
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
[2022-03-01] MEDS: buPROPion HCl XL 150 MG TAB.ER.24H PO (18:18)
--- NOTE | 2022-03-01 18:47 | PC.ADMIT ---
Addendum entered by Lissy Muniz 03/01/22 19:26: Amendment: Patient reports he recently had a 7 month period of sobriety, ending 2 months ago... Original Note: Patient is a 51 year old male, admitted from [facility] on a CV with a diagnosis of Major Depressive Disorder, and a recent hx of relapse on ETOH. Patient, who residers at a dual diagnosis [facility], reports he relapsed on ETOH approximately 2 months, and has since been drinking 2-3 pints hard liquor daily. Last use was 10.6.22 at 1900. Patient has a history of withdrawal seizures and DT's. Precipitant for admission was SI, with a plan to place himself on train tracks to end his life. Patient reports he attempted to stop using ETOH, brought himself to the train tracks where he thought he may have had a withdrawal seizure. Patient denies any attempt to harm himself prior to arrival. Patient reports he recently had a 7 month period of sobriety, ending 23 months ago. He presented as alert, oriented x3. Affect anxious, CIWA 5 on arrival significant for a moderate tremor. Medical history includes: DJD of spine, right hip arthritis, in remission from Hep C since 2006. He denied SI or HI on arrival, denied AH/VH.
[2022-03-01] MEDS: Buprenorphine/Naloxone 8/2 mg FILM 1 FILM SUBLINGUAL (19:08)
[2022-03-01] MEDS: Ibuprofen 600 MG TABLET PO (21:18)
[2022-03-01] MEDS: Prazosin HCL 1 MG CAPSULE 2 MG PO (21:18)
[2022-03-01] MEDS: hydrOXYzine HCL 25 MG TABLET PO (21:19)
[2022-03-01] MEDS: Melatonin 3 MG TABLET 6 MG PO (21:19)
[2022-03-01] MEDS: traZODone HCL 50 MG TABLET 150 MG PO (21:19)
[2022-03-01] MEDS: Gabapentin 400 MG CAPSULE 800 MG PO (21:19)
[2022-03-01] MEDS: Docusate Sodium 100 MG CAPSULE PO (21:20)
[2022-03-02] MEDS: LORazepam 1 MG TABLET 2 MG PO ×3 (00:12→19:33)
[2022-03-02] MEDS: Cyclobenzaprine HCl 10 MG TABLET PO ×2 (05:50→20:46)
[2022-03-02] MEDS: LORazepam 1 MG TABLET PO ×5 (05:51→20:47)
[2022-03-02 05:53] VITALS: BP 127/76; PULSE 88
[2022-03-02] MEDS: Multivitamin TABLET 1 TAB PO (08:45)
[2022-03-02] MEDS: Gabapentin 400 MG CAPSULE 800 MG PO ×3 (08:45→20:47)
[2022-03-02] MEDS: Docusate Sodium 100 MG CAPSULE PO ×2 (08:45→20:47)
[2022-03-02] MEDS: Pyridoxine HCl (Vitamin B6) 50 MG TABLET PO (08:45)
[2022-03-02] MEDS: Thiamine HCL 100 MG TABLET 50 MG PO (08:45)
[2022-03-02] MEDS: Folic Acid 1 MG TABLET PO (08:45)
[2022-03-02] MEDS: buPROPion HCl XL 150 MG TAB.ER.24H 450 MG PO (08:46)
[2022-03-02] MEDS: Nicotine 21 MG PATCH.TD24 TRANSDERMA (08:47)
[2022-03-02] MEDS: Buprenorphine/Naloxone 8/2 mg FILM 2 FILM SUBLINGUAL (08:48)
[2022-03-02 09:48] VITALS: BP 119/73; PULSE 90; RESP 14; TEMP 36.6; O2SAT 96
--- NOTE | 2022-03-02 10:24 | HO.PSYCHPN ---
Subjective Subjective Date of Service: 03/02/22 Reason For Visit: SI, depression Interim History: Alcohol withdrawal continues. Pt with restlessness, continues on CIWA/Lorazepam. Pt reports I am really scared to have a seizure. Discussed the progress he had made and is feeling loss, guilt for relapse, the speed of the relapse and not connecting with his program prior to this ([facility]). Discussed wanting to get numbers from his phone so he may connect with his team and discuss what happened. Reports restless sleep-Prazosin is usually helpful with nightmares, pt believes it is not helpful due to psychosocial concerns (concern about his relationship with his program). Medication Compliance: Yes Side effects from medications: No Attending Groups: Intermittent Review of Systems Acute medical concerns: No Medical Review of Systems: unchanged Mental Status Exam Mental Status Exam Patient Appearance: Fatigued Patient Orientation: Person, Place, Time and Situation Level of Consciousness: Alert Patient Behavior: Talkative and Good Eye Contact Mood Description: Depressed, Anxious and Apprehensive Affect Description: Flat Patient Cognition Impaired: No Ability to Follow Directions: Good Speech Pattern: Clear and Spontaneous Speech Memory Description: Episodic Impaired Hallucinations: None Delusions: Not Present Thought Process: Intact Thought Content: positive for Intact and positive for Suicidal Ideation (denies) Depressive Symptoms: Increased Anxiety and Low Self Esteem Judgement: Fair Diagnostics Vital Signs (24Hr): Vital Signs - 24 hr 03/01/22 14:56 03/01/22 16:25 03/01/22 18:42 Temperature 98.2 F 98.1 F Pulse Rate 85 90 97 Respiratory Rate 16 18 20 Blood Pressure 133/80 138/62 128/73 Pulse Oximetry 97 98 97 Oxygen Delivery Method Room Air Room Air Room Air 03/01/22 21:08 03/02/22 05:53 03/02/22 09:48 Temperature 97.9 F 97.8 F Pulse Rate 84 88 90 Respiratory Rate 14 Blood Pressure 124/64 127/76 119/73 Pulse Oximetry 96 96 Oxygen Delivery Method Room Air Room Air BMI result Body Mass Index 26.8 Labs Results: 02/28/22 21:45 02/28/22 21:45 Labs: Laboratory Results - last 48 hr 02/28/22 02/28/22 02/28/22 16:30 21:45 21:45 WBC 8.8 RBC 4.43 L Hgb 13.3 L Hct 38.0 L MCV 85.8 MCH 30.0 MCHC 35.0 RDW 12.7 Plt Count 247 MPV 10.0 Immature Gran % (Auto) 0.2 Neut % (Auto) 61.4 Lymph % (Auto) 24.7 [place] % (Auto) 11.8 H Eos % (Auto) 1.2 Baso % (Auto) 0.7 Lymph # (Auto) 2.2 [place] # (Auto) 1.0 Eos # (Auto) 0.1 Baso # (Auto) 0.1 Abs Immat Gran (auto) 0.02 Absolute Neuts (auto) 5.4 Absolute Nucleated RBC 0.000 Nucleated RBC % (auto) 0.0 PT INR Sodium 139 Potassium 3.6 Chloride 101 Carbon Dioxide 26 Anion Gap 16 BUN 22 H Creatinine 1.19 Estim Creat Clear Calc 85.0 Estimated GFR > 60 Random Glucose 101 D Lactic Acid Calcium 8.9 Magnesium 2.2 Total Bilirubin 0.9 Direct Bilirubin 0.4 AST 316 H ALT 110 H Alkaline Phosphatase 69 Troponin I High Sens Total Protein 6.6 Albumin 4.4 Lipase 5 L Urine Color Urine Appearance Urine pH Ur Specific [place] Urine Protein Urine Glucose (UA) Urine Ketones Urine Blood Urine Nitrite Ur Leukocyte Esterase Salicylates < 5.0 L Urine Opiates Screen Urine Fentanyl Screen Acetaminophen < 1 Ur Barbiturates Screen Ur Phencyclidine Scrn Ur Amphetamines Screen U Benzodiazepines Scrn Urine Cocaine Screen U Marijuana (THC) Screen Ethyl Alcohol < 10 COVID-19 (LINK) Negative COVID-19 Clin Com See Note 02/28/22 02/28/22 02/28/22 21:45 21:45 21:45 WBC RBC Hgb Hct MCV MCH MCHC RDW Plt Count MPV Immature Gran % (Auto) Neut % (Auto) Lymph % (Auto) [place] % (Auto) Eos % (Auto) Baso % (Auto) Lymph # (Auto) [place] # (Auto) Eos # (Auto) Baso # (Auto) Abs Immat Gran (auto) Absolute Neuts (auto) Absolute Nucleated RBC Nucleated RBC % (auto) PT 12.8 INR 1.1 Sodium Potassium Chloride Carbon Dioxide Anion Gap BUN Creatinine Estim Creat Clear Calc Estimated GFR Random Glucose Lactic Acid 1.4 Calcium Magnesium Total Bilirubin Direct Bilirubin AST ALT Alkaline Phosphatase Troponin I High Sens 6.8 Total Protein Albumin Lipase Urine Color Urine Appearance Urine pH Ur Specific [place] Urine Protein Urine Glucose (UA) Urine Ketones Urine Blood Urine Nitrite Ur Leukocyte Esterase Salicylates Urine Opiates Screen Urine Fentanyl Screen Acetaminophen Ur Barbiturates Screen Ur Phencyclidine Scrn Ur Amphetamines Screen U Benzodiazepines Scrn Urine Cocaine Screen U Marijuana (THC) Screen Ethyl Alcohol COVID-19 (LINK) COVID-19 [facility] Com 03/01/22 03/01/22 13:57 13:57 WBC RBC Hgb Hct MCV MCH MCHC RDW Plt Count MPV Immature Gran % (Auto) Neut % (Auto) Lymph % (Auto) [place] % (Auto) Eos % (Auto) Baso % (Auto) Lymph # (Auto) [place] # (Auto) Eos # (Auto) Baso # (Auto) Abs Immat Gran (auto) Absolute Neuts (auto) Absolute Nucleated RBC Nucleated RBC % (auto) PT INR Sodium Potassium Chloride Carbon Dioxide Anion Gap BUN Creatinine Estim Creat Clear Calc Estimated GFR Random Glucose Lactic Acid Calcium Magnesium Total Bilirubin Direct Bilirubin AST ALT Alkaline Phosphatase Troponin I High Sens Total Protein Albumin Lipase Urine Color Yellow Urine Appearance Clear Urine pH 6.0 Ur Specific [place] 1.015 Urine Protein Negative Urine Glucose (UA) Negative Urine Ketones Negative Urine Blood Negative Urine Nitrite Negative Ur Leukocyte Esterase Negative Salicylates Urine Opiates Screen Not Detected Urine Fentanyl Screen Not Detected Acetaminophen Ur Barbiturates Screen Not Detected Ur Phencyclidine Scrn Not Detected Ur Amphetamines Screen Not Detected U Benzodiazepines Scrn POSITIVE H Urine Cocaine Screen POSITIVE H U Marijuana (THC) Screen Not Detected Ethyl Alcohol COVID-19 (LINK) COVID-19 Clin Com Imaging Radiology Impressions: ITS Impressions Chest X-Ray 02/28/22 15:44 IMPRESSION: Clear lungs. Lumbar Spine X-Ray 02/28/22 16:23 IMPRESSION: 1. No subluxation or fracture. 2. Mild multilevel degenerative disc disease. Head CT 02/28/22 17:52 IMPRESSION: 1. No acute intracranial pathology. Medications Medications Current Medications Al Hydroxide/Mg Hydroxide (Magnesium Hydrox/Alum Hydrox 30 Ml Oral.Susp) 30 ml PO Q6H PRN PRN Reason: Heartburn/Nausea Buprenorphine/Naloxone (Buprenorphine/Naloxone 8/2 Mg Film) 2 film SUBLINGUAL DAILY [facility] Last Admin: 03/02/22 08:48 Dose: 2 film Bupropion HCl (Bupropion Hcl Xl 150 Mg Tab.Er.24h) 450 mg PO DAILY [facility] Last Admin: 03/02/22 08:46 Dose: 450 mg Cyclobenzaprine HCl (Cyclobenzaprine Hcl 10 Mg Tablet) 10 mg PO TID PRN PRN Reason: muscle spasm Last Admin: 03/02/22 05:50 Dose: 10 mg Docusate Sodium (Docusate Sodium 100 Mg Capsule) 100 mg PO BID [facility] Last Admin: 03/02/22 08:45 Dose: 100 mg Folic Acid (Folic Acid 1 Mg Tablet) 1 mg PO DAILY [facility] Last Admin: 03/02/22 08:45 Dose: 1 mg Gabapentin (Gabapentin 400 Mg Capsule) 800 mg PO TID [facility] Last Admin: 03/02/22 08:45 Dose: 800 mg Hydroxyzine HCl (Hydroxyzine Hcl 50 Mg Tablet) 50 mg PO BEDTIME PRN PRN Reason: insomnia Hydroxyzine HCl (Hydroxyzine Hcl 25 Mg Tablet) 25 mg PO Q6H PRN PRN Reason: Anxiety Last Admin: 03/01/22 21:19 Dose: 25 mg Ibuprofen (Ibuprofen 600 Mg Tablet) 600 mg PO Q8H PRN PRN Reason: Pain, Mild (Pain Scale 1-3) Last Admin: 03/01/22 21:18 Dose: 600 mg Lorazepam (Lorazepam 1 Mg Tablet) 2 mg PO Q2H PRN PRN Reason: CIWA 12 or above Last Admin: 03/02/22 00:12 Dose: 2 mg Lorazepam (Lorazepam 1 Mg Tablet) 1 mg PO Q2H PRN PRN Reason: CIWA 6-11 Last Admin: 03/02/22 05:51 Dose: 1 mg Lorazepam (Lorazepam 1 Mg Tablet) 1 mg PO TID [facility] Last Admin: 03/02/22 08:45 Dose: 1 mg Magnesium Hydroxide (Milk Of Magnesia 30 Ml Oral.Susp) 30 ml PO DAILY PRN PRN Reason: Constipation Melatonin (Melatonin 3 Mg Tablet) 6 mg PO BEDTIME [facility] Last Admin: 03/01/22 21:19 Dose: 6 mg Metronidazole (Metronidazole 0.75 % Gel 45 Gm Tube) 1 appl TOPICAL BID [facility] Last Admin: 03/02/22 00:17 Dose: Not Given Multivitamins/Vitamin C (Multivitamin Tablet) 1 tab PO DAILY [facility] Last Admin: 03/02/22 08:45 Dose: 1 tab Nicotine (Nicotine 21 Mg Patch.Td24) 21 mg TRANSDERMA DAILY [facility] Last Admin: 03/02/22 08:47 Dose: 21 mg Nicotine Polacrilex (Nicotine Polacrilex 2 Mg Gum) 4 mg BUCCAL Q2H PRN PRN Reason: Nicotine Cravings Ondansetron HCl (Ondansetron Odt 4 Mg Tab.Rapdis) 4 mg TRANSLINGU Q8H PRN PRN Reason: nausea Polyethylene Glycol (Polyethylene Glycol 3350 17 Gm Powd.Pack) 17 gm PO DAILY PRN PRN Reason: Constipation Prazosin HCl (Prazosin Hcl 1 Mg Capsule) 2 mg PO BEDTIME [facility]OUZIA; Protocol Last Admin: 03/01/22 21:18 Dose: 2 mg Pyridoxine HCl (Pyridoxine Hcl (Vitamin B6) 50 Mg Tablet) 50 mg PO DAILY [facility] Last Admin: 03/02/22 08:45 Dose: 50 mg Thiamine HCl (Thiamine Hcl 100 Mg Tablet) 50 mg PO DAILY [facility] Last Admin: 03/02/22 08:45 Dose: 50 mg Trazodone HCl (Trazodone Hcl 50 Mg Tablet) 150 mg PO BEDTIME [facility] Last Admin: 03/01/22 21:19 Dose: 150 mg Allergies Allergies Allergy/AdvReac Type Severity Reaction Status Date / Time phenobarbital AdvReac Vomiting Verified 11/12/21 15:48 Assessment & Plan Assessment & Plan (1) MDD (major depressive disorder), recurrent episode, severe: Status: Acute Code(s): F33.2 - Major depressive disorder, recurrent severe without psychotic features (2) Alcohol use disorder: Status: Chronic (3) Opioid use disorder: Status: Chronic Code(s): F11.99 - Opioid use, unspecified with unspecified opioid-induced disorder (4) Chronic post-traumatic stress disorder (PTSD): Status: Acute Code(s): F43.12 - Post-traumatic stress disorder, chronic Plan Cam is a 51 y.o. male who carries a dx of MDD recurrent, AUD, opioid use disorder. He presented to [facility] on 02/28/2022 due to relapsing on alcohol over the past few months, drinking about 2 pints and a 12 pack daily, also using crack cocaine. Pt reported SI, found himself on the train tracks. Pt has hx of multiple inpatient admissions for similar presentation, [place] [facility] [place]. Currently residing at [facility] dual diagnosis program. Plan: Placed on CIWA, ativan protocol. Continue gabapentin for neuropathy s/p frostbite. Pt says he does not think he needs prazosin anymore for nightmares, will decrease to 2 mg and discontinue. Pt denies benefit on past trials of SSRIs/ SNRIs. 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 03/02/22- Continue current plan of care. I spent minutes with the patient and/or on the patient floor today, greater than?50% of which was spent counseling/coordinating care. Patient educated on: medication risk/benefits and medical condition Informed Consent: understands and further education needed Reason for contiued inpatient stay Substantial Risk for: harm to self, inability to function, rapid decompensation and med/psych decompensation
[2022-03-02] MEDS: metroNIDAZOLE 0.75 % Gel 45 GM TUBE 1 APPL TOPICAL ×2 (10:32→21:33)
[2022-03-02] MEDS: Ibuprofen 600 MG TABLET PO (18:00)
[2022-03-02 19:30] VITALS: BP 139/80; PULSE 83; RESP 16; TEMP 36.7; O2SAT 98
[2022-03-02] MEDS: Prazosin HCL 1 MG CAPSULE 2 MG PO (20:46)
[2022-03-02] MEDS: traZODone HCL 50 MG TABLET 150 MG PO (20:46)
--- NOTE | 2022-03-02 23:47 | PC.NURSE ---
Cam is sleeping at this time. Called patient's name seceral times and did not awake patient. Patient RR-16 and there were no signs of sweating. Patient observed for a minute and was sleeping without restlessness. Nurse did not wake patient for full CIWA assessment but will recheck in 2 hours.
--- NOTE | 2022-03-03 02:32 | PC.NURSE ---
Nurse checked on Cam as he is on a CIWA protocol. Patient was sleeping. RR-14. No signs of sweating or discomfort. No observed fidgeting in bed. Nurse will continue to monitor patient.
[2022-03-03] MEDS: Ibuprofen 600 MG TABLET PO (03:38)
[2022-03-03] MEDS: LORazepam 1 MG TABLET 2 MG PO ×3 (03:38→16:04)
[2022-03-03 08:58] VITALS: BP 102/55; PULSE 75; TEMP 36.7; O2SAT 97
[2022-03-03 09:06] LABS: Alanine Aminotransferase 99 U/L (0-40); Albumin Level 3.4 g/dL (3.5-5.0); Alkaline Phosphatase 68 U/L (39-117); Aspartate Amino Transferase 91 U/L (5-37); Bilirubin Direct < 0.2 mg/dL (0.0-0.5); Bilirubin Total < 0.2 mg/dL (0.0-1.0); Total Protein 5.7 g/dL (6.5-8.0)
[2022-03-03] MEDS: Nicotine 21 MG PATCH.TD24 TRANSDERMA (09:13)
[2022-03-03] MEDS: Gabapentin 400 MG CAPSULE 800 MG PO ×3 (09:13→20:23)
[2022-03-03] MEDS: buPROPion HCl XL 150 MG TAB.ER.24H 450 MG PO (09:14)
[2022-03-03] MEDS: Multivitamin TABLET 1 TAB PO (09:14)
[2022-03-03] MEDS: Pyridoxine HCl (Vitamin B6) 50 MG TABLET PO (09:14)
[2022-03-03] MEDS: Thiamine HCL 100 MG TABLET 50 MG PO (09:14)
[2022-03-03] MEDS: Docusate Sodium 100 MG CAPSULE PO ×2 (09:14→20:22)
[2022-03-03] MEDS: Folic Acid 1 MG TABLET PO (09:14)
[2022-03-03] MEDS: Buprenorphine/Naloxone 8/2 mg FILM 2 FILM SUBLINGUAL (09:15)
[2022-03-03] MEDS: LORazepam 1 MG TABLET PO ×2 (09:15→14:44)
[2022-03-03] MEDS: metroNIDAZOLE 0.75 % Gel 45 GM TUBE 1 APPL TOPICAL ×2 (09:16→20:29)
[2022-03-03] MEDS: polyethylene glycoL 3350 17 GM POWD.PACK PO (11:00)
[2022-03-03] MEDS: Cyclobenzaprine HCl 10 MG TABLET PO ×2 (16:07→20:23)
--- NOTE | 2022-03-03 16:53 | P.PNPSI_ITS ---
Subjective Subjective Date of Service: 03/03/22 Reason For Visit: SI, depression Diagnostics Interim History: Vital Signs - 24 hr 03/02/22 19:30 03/03/22 Review of Systems Medical Review of Systems: unchanged Mental Status Exam Respiratory Rate 16 Level of Consciousness: Alert Pulse Oximetry 98 97 Patient Cognition Impaired: No Memory Description: Episodic Impaired Hallucinations: None Thought Content: positive for Intact and positive for Suicidal Ideation (denies) Labs 03/02/22 19:30 03/03/22 08:58 Temperature 98.1 F 98.1 F Pulse Rate 83 75 Respiratory Rate 16 Blood Pressure 139/80 102/55 L Pulse Oximetry 98 97 Oxygen Delivery Method Room Air Room Air
--- NOTE | 2022-03-03 16:53 | HO.PSYCHPN ---
Subjective Subjective Date of Service: 03/03/22 Reason For Visit: SI, depression Subjective Notes: Conditional Voluntary Interim History: Sedate. Team report detox is waning and we will begin Ativan tapering. Pt reconnecting with [facility] and encouraged to reach out to discuss precipitants to this current relapse. Medication Compliance: Yes Side effects from medications: No Attending Groups: Intermittent Review of Systems Acute medical concerns: No Medical Review of Systems: unchanged Mental Status Exam Mental Status Exam Patient Appearance: Fatigued Patient Orientation: Person, Place, Time and Situation Level of Consciousness: Alert Patient Behavior: Talkative and Good Eye Contact Mood Description: Depressed, Anxious and Apprehensive Affect Description: Flat Patient Cognition Impaired: No Ability to Follow Directions: Good Speech Pattern: Clear and Spontaneous Speech Memory Description: Episodic Impaired Hallucinations: None Delusions: Not Present Thought Process: Intact Thought Content: positive for Intact and positive for Suicidal Ideation (denies) Depressive Symptoms: Increased Anxiety and Low Self Esteem Judgement: Fair Diagnostics Vital Signs (24Hr): Vital Signs - 24 hr 03/02/22 19:30 03/03/22 08:58 Temperature 98.1 F 98.1 F Pulse Rate 83 75 Respiratory Rate 16 Blood Pressure 139/80 102/55 L Pulse Oximetry 98 97 Oxygen Delivery Method Room Air Room Air BMI result Body Mass Index 26.8 Labs Results: 02/28/22 21:45 02/28/22 21:45 Labs: Laboratory Results - last 48 hr 03/03/22 07:52 Total Bilirubin < 0.2 Direct Bilirubin < 0.2 AST 91 H ALT 99 H Alkaline Phosphatase 68 Total Protein 5.7 L Albumin 3.4 L D Imaging Radiology Impressions: ITS Impressions Chest X-Ray 02/28/22 15:44 IMPRESSION: Clear lungs. Lumbar Spine X-Ray 02/28/22 16:23 IMPRESSION: 1. No subluxation or fracture. 2. Mild multilevel degenerative disc disease. Head CT 02/28/22 17:52 IMPRESSION: 1. No acute intracranial pathology. Medications Medications Current Medications Al Hydroxide/Mg Hydroxide (Magnesium Hydrox/Alum Hydrox 30 Ml Oral.Susp) 30 ml PO Q6H PRN PRN Reason: Heartburn/Nausea Buprenorphine/Naloxone (Buprenorphine/Naloxone 8/2 Mg Film) 2 film SUBLINGUAL DAILY [facility] Last Admin: 03/03/22 09:15 Dose: 2 film Bupropion HCl (Bupropion Hcl Xl 150 Mg Tab.Er.24h) 450 mg PO DAILY [facility] Last Admin: 03/03/22 09:14 Dose: 450 mg Cyclobenzaprine HCl (Cyclobenzaprine Hcl 10 Mg Tablet) 10 mg PO TID PRN PRN Reason: muscle spasm Last Admin: 03/03/22 16:07 Dose: 10 mg Docusate Sodium (Docusate Sodium 100 Mg Capsule) 100 mg PO BID [facility] Last Admin: 03/03/22 09:14 Dose: 100 mg Folic Acid (Folic Acid 1 Mg Tablet) 1 mg PO DAILY [facility] Last Admin: 03/03/22 09:14 Dose: 1 mg Gabapentin (Gabapentin 400 Mg Capsule) 800 mg PO TID [facility] Last Admin: 03/03/22 14:44 Dose: 800 mg Hydroxyzine HCl (Hydroxyzine Hcl 50 Mg Tablet) 50 mg PO BEDTIME PRN PRN Reason: insomnia Hydroxyzine HCl (Hydroxyzine Hcl 25 Mg Tablet) 25 mg PO Q6H PRN PRN Reason: Anxiety Last Admin: 03/01/22 21:19 Dose: 25 mg Ibuprofen (Ibuprofen 600 Mg Tablet) 600 mg PO Q8H PRN PRN Reason: Pain, Mild (Pain Scale 1-3) Last Admin: 03/03/22 03:38 Dose: 600 mg Lorazepam (Lorazepam 1 Mg Tablet) 2 mg PO Q2H PRN PRN Reason: CIWA 12 or above Last Admin: 03/03/22 16:04 Dose: 2 mg Lorazepam (Lorazepam 1 Mg Tablet) 1 mg PO Q2H PRN PRN Reason: CIWA 6-11 Last Admin: 03/02/22 18:01 Dose: 1 mg Lorazepam (Lorazepam 1 Mg Tablet) 1 mg PO TID [facility] Last Admin: 03/03/22 14:44 Dose: 1 mg Magnesium Hydroxide (Milk Of Magnesia 30 Ml Oral.Susp) 30 ml PO DAILY PRN PRN Reason: Constipation Melatonin (Melatonin 3 Mg Tablet) 6 mg PO BEDTIME [facility] Last Admin: 03/02/22 21:33 Dose: Not Given Metronidazole (Metronidazole 0.75 % Gel 45 Gm Tube) 1 appl TOPICAL BID [facility] Last Admin: 03/03/22 09:16 Dose: 1 appl Multivitamins/Vitamin C (Multivitamin Tablet) 1 tab PO DAILY [facility] Last Admin: 03/03/22 09:14 Dose: 1 tab Nicotine (Nicotine 21 Mg Patch.Td24) 21 mg TRANSDERMA DAILY [facility] Last Admin: 03/03/22 09:13 Dose: 21 mg Nicotine Polacrilex (Nicotine Polacrilex 2 Mg Gum) 4 mg BUCCAL Q2H PRN PRN Reason: Nicotine Cravings Ondansetron HCl (Ondansetron Odt 4 Mg Tab.Rapdis) 4 mg TRANSLINGU Q8H PRN PRN Reason: nausea Polyethylene Glycol (Polyethylene Glycol 3350 17 Gm Powd.Pack) 17 gm PO DAILY PRN PRN Reason: Constipation Last Admin: 03/03/22 11:00 Dose: 17 gm Polyethylene Glycol (Polyethylene Glycol 3350 17 Gm Powd.Pack) 17 gm PO DAILY PRN PRN Reason: Constipation Prazosin HCl (Prazosin Hcl 1 Mg Capsule) 2 mg PO BEDTIME [facility]; Protocol Last Admin: 03/02/22 20:46 Dose: 2 mg Pyridoxine HCl (Pyridoxine Hcl (Vitamin B6) 50 Mg Tablet) 50 mg PO DAILY [facility] Last Admin: 03/03/22 09:14 Dose: 50 mg Thiamine HCl (Thiamine Hcl 100 Mg Tablet) 50 mg PO DAILY [facility] Last Admin: 03/03/22 09:14 Dose: 50 mg Trazodone HCl (Trazodone Hcl 50 Mg Tablet) 150 mg PO BEDTIME [facility] Last Admin: 03/02/22 20:46 Dose: 150 mg Allergies Allergies Allergy/AdvReac Type Severity Reaction Status Date / Time phenobarbital AdvReac Vomiting Verified 11/12/21 15:48 Assessment & Plan Assessment & Plan (1) MDD (major depressive disorder), recurrent episode, severe: Status: Acute Code(s): F33.2 - Major depressive disorder, recurrent severe without psychotic features (2) Alcohol use disorder: Status: Chronic (3) Opioid use disorder: Status: Chronic Code(s): F11.99 - Opioid use, unspecified with unspecified opioid-induced disorder (4) Chronic post-traumatic stress disorder (PTSD): Status: Acute Code(s): F43.12 - Post-traumatic stress disorder, chronic Plan Cam is a 51 y.o. male who carries a dx of MDD recurrent, AUD, opioid use disorder. He [place] [facility] [place]22 due to relapsing on alcohol over the past few months, drinking about 2 pints and a 12 pack daily, also using crack cocaine. Pt reported SI, [place] train [place]. Pt has hx of multiple inpatient admissions for similar presentation, [place] [facility] [place] Currently residing at [facility] dual diagnosis program. Plan: Placed on CIWA, ativan protocol. Continue gabapentin for neuropathy s/p frostbite. Pt says he does not think he needs prazosin anymore for nightmares, will decrease to 2 mg and discontinue. Pt denies benefit on past trials of SSRIs/ SNRIs. 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 03/02/22- Continue current plan of care. 03/03/22- Begin Lorazepam tapering. Team concurs. I spent minutes with the patient and/or on the patient floor today, greater than?50% of which was spent counseling/coordinating care. Informed Consent: further education needed Reason for contiued inpatient stay Substantial Risk for: harm to self, inability to function, rapid decompensation and med/psych decompensation
[2022-03-03] MEDS: Nicotine Polacrilex 2 MG GUM 4 MG BUCCAL (19:09)
[2022-03-03 20:16] VITALS: BP 147/82; PULSE 100; O2SAT 97
[2022-03-03] MEDS: traZODone HCL 50 MG TABLET 150 MG PO (20:22)
[2022-03-03] MEDS: Prazosin HCL 1 MG CAPSULE 2 MG PO (20:22)
[2022-03-03] MEDS: Melatonin 3 MG TABLET 6 MG PO (20:23)
[2022-03-03] MEDS: LORazepam 0.5 MG TABLET PO (20:23)
[2022-03-04 06:00] VITALS: BP 136/64; PULSE 80; RESP 18; TEMP 36.7; O2SAT 97
[2022-03-04] MEDS: Gabapentin 400 MG CAPSULE 800 MG PO ×3 (08:33→20:52)
[2022-03-04] MEDS: Cyclobenzaprine HCl 10 MG TABLET PO ×2 (08:34→15:14)
[2022-03-04] MEDS: Folic Acid 1 MG TABLET PO (08:34)
[2022-03-04] MEDS: Buprenorphine/Naloxone 8/2 mg FILM 2 FILM SUBLINGUAL (08:34)
[2022-03-04] MEDS: LORazepam 1 MG TABLET PO ×6 (08:34→20:52)
[2022-03-04] MEDS: Docusate Sodium 100 MG CAPSULE PO ×2 (08:34→20:52)
[2022-03-04] MEDS: buPROPion HCl XL 150 MG TAB.ER.24H 450 MG PO (08:34)
[2022-03-04] MEDS: LORazepam 0.5 MG TABLET PO (08:35)
[2022-03-04] MEDS: hydrOXYzine HCL 25 MG TABLET PO (08:35)
[2022-03-04] MEDS: metroNIDAZOLE 0.75 % Gel 45 GM TUBE 1 APPL TOPICAL ×2 (08:40→21:00)
[2022-03-04] MEDS: Multivitamin TABLET 1 TAB PO (08:45)
[2022-03-04] MEDS: Pyridoxine HCl (Vitamin B6) 50 MG TABLET PO (08:45)
[2022-03-04] MEDS: Thiamine HCL 100 MG TABLET 50 MG PO (08:45)
[2022-03-04] MEDS: Nicotine 21 MG PATCH.TD24 TRANSDERMA (08:45)
[2022-03-04] MEDS: Ibuprofen 600 MG TABLET PO ×2 (12:01→20:52)
--- NOTE | 2022-03-04 18:10 | HO.PSYCHPN ---
Subjective Subjective Date of Service: 03/04/22 Reason For Visit: SI, depression Interim History: Reports alcohol use 3-4 weeks [employer] vs days. Unable to tolerate Lorazepam decrease at this time, increased back to 1 mg tid. Reports intermittent voices/visions. Pt asks that we assist him with advocating with [facility] to return as his housing was in process. Medication Compliance: Yes Side effects from medications: No Review of Systems Acute medical concerns: No Medical Review of Systems: unchanged Mental Status Exam Mental Status Exam Patient Appearance: Fatigued Patient Orientation: Person, Place, Time and Situation Level of Consciousness: Alert Patient Behavior: Talkative and Good Eye Contact Mood Description: Depressed, Anxious and Apprehensive Affect Description: Flat Patient Cognition Impaired: No Ability to Follow Directions: Good Speech Pattern: Clear and Spontaneous Speech Memory Description: Episodic Impaired Hallucinations: None Delusions: Not Present Thought Process: Intact Thought Content: positive for Intact and positive for Suicidal Ideation (denies) Depressive Symptoms: Increased Anxiety and Low Self Esteem Judgement: Fair Diagnostics Vital Signs (24Hr): Vital Signs - 24 hr 03/03/22 20:16 03/04/22 06:00 Temperature 98.1 F Pulse Rate 100 80 Respiratory Rate 18 Blood Pressure 147/82 H 136/64 Pulse Oximetry 97 97 Oxygen Delivery Method Room Air Room Air BMI result Body Mass Index 26.8 Labs Results: 02/28/22 21:45 02/28/22 21:45 Labs: Laboratory Results - last 48 hr 03/03/22 07:52 Total Bilirubin < 0.2 Direct Bilirubin < 0.2 AST 91 H ALT 99 H Alkaline Phosphatase 68 Total Protein 5.7 L Albumin 3.4 L D Imaging Radiology Impressions: ITS Impressions Chest X-Ray 02/28/22 15:44 IMPRESSION: Clear lungs. Lumbar Spine X-Ray 02/28/22 16:23 IMPRESSION: 1. No subluxation or fracture. 2. Mild multilevel degenerative disc disease. Head CT 02/28/22 17:52 IMPRESSION: 1. No acute intracranial pathology. Medications Medications Current Medications Al Hydroxide/Mg Hydroxide (Magnesium Hydrox/Alum Hydrox 30 Ml Oral.Susp) 30 ml PO Q6H PRN PRN Reason: Heartburn/Nausea Buprenorphine/Naloxone (Buprenorphine/Naloxone 8/2 Mg Film) 2 film SUBLINGUAL DAILY [facility] Last Admin: 03/04/22 08:34 Dose: 2 film Bupropion HCl (Bupropion Hcl Xl 150 Mg Tab.Er.24h) 450 mg PO DAILY [facility] Last Admin: 03/04/22 08:34 Dose: 450 mg Cyclobenzaprine HCl (Cyclobenzaprine Hcl 10 Mg Tablet) 10 mg PO TID PRN PRN Reason: muscle spasm Last Admin: 03/04/22 15:14 Dose: 10 mg Docusate Sodium (Docusate Sodium 100 Mg Capsule) 100 mg PO BID [facility] Last Admin: 03/04/22 08:34 Dose: 100 mg Folic Acid (Folic Acid 1 Mg Tablet) 1 mg PO DAILY [facility] Last Admin: 03/04/22 08:34 Dose: 1 mg Gabapentin (Gabapentin 400 Mg Capsule) 800 mg PO TID [facility] Last Admin: 03/04/22 15:13 Dose: 800 mg Hydroxyzine HCl (Hydroxyzine Hcl 50 Mg Tablet) 50 mg PO BEDTIME PRN PRN Reason: insomnia Hydroxyzine HCl (Hydroxyzine Hcl 25 Mg Tablet) 25 mg PO Q6H PRN PRN Reason: Anxiety Last Admin: 03/04/22 08:35 Dose: 25 mg Ibuprofen (Ibuprofen 600 Mg Tablet) 600 mg PO Q8H PRN PRN Reason: Pain, Mild (Pain Scale 1-3) Last Admin: 03/04/22 12:01 Dose: 600 mg Lorazepam (Lorazepam 1 Mg Tablet) 1 mg PO Q2H PRN PRN Reason: CIWA 6-11 Last Admin: 03/04/22 15:14 Dose: 1 mg Lorazepam (Lorazepam 1 Mg Tablet) 1 mg PO TID [facility] Last Admin: 03/04/22 15:14 Dose: 1 mg Magnesium Hydroxide (Milk Of Magnesia 30 Ml Oral.Susp) 30 ml PO DAILY PRN PRN Reason: Constipation Melatonin (Melatonin 3 Mg Tablet) 6 mg PO BEDTIME [facility] Last Admin: 03/03/22 20:23 Dose: 6 mg Metronidazole (Metronidazole 0.75 % Gel 45 Gm Tube) 1 appl TOPICAL BID [facility] Last Admin: 03/04/22 08:40 Dose: 1 appl Multivitamins/Vitamin C (Multivitamin Tablet) 1 tab PO DAILY [facility] Last Admin: 03/04/22 08:45 Dose: 1 tab Nicotine (Nicotine 21 Mg Patch.Td24) 21 mg TRANSDERMA DAILY [facility] Last Admin: 03/04/22 08:45 Dose: 21 mg Nicotine Polacrilex (Nicotine Polacrilex 2 Mg Gum) 4 mg BUCCAL Q2H PRN PRN Reason: Nicotine Cravings Last Admin: 03/03/22 19:09 Dose: 4 mg Ondansetron HCl (Ondansetron Odt 4 Mg Tab.Rapdis) 4 mg TRANSLINGU Q8H PRN PRN Reason: nausea Polyethylene Glycol (Polyethylene Glycol 3350 17 Gm Powd.Pack) 17 gm PO DAILY PRN PRN Reason: Constipation Last Admin: 03/03/22 11:00 Dose: 17 gm Polyethylene Glycol (Polyethylene Glycol 3350 17 Gm Powd.Pack) 17 gm PO DAILY PRN PRN Reason: Constipation Prazosin HCl (Prazosin Hcl 1 Mg Capsule) 2 mg PO BEDTIME [facility]; Protocol Last Admin: 03/03/22 20:22 Dose: 2 mg Pyridoxine HCl (Pyridoxine Hcl (Vitamin B6) 50 Mg Tablet) 50 mg PO DAILY [facility] Last Admin: 03/04/22 08:45 Dose: 50 mg Risperidone (Risperidone 1 Mg Tablet) 1 mg PO BID PRN PRN Reason: psychotic sx Thiamine HCl (Thiamine Hcl 100 Mg Tablet) 50 mg PO DAILY [facility] Last Admin: 03/04/22 08:45 Dose: 50 mg Trazodone HCl (Trazodone Hcl 50 Mg Tablet) 150 mg PO BEDTIME [facility] Last Admin: 03/03/22 20:22 Dose: 150 mg Allergies Allergies Allergy/AdvReac Type Severity Reaction Status Date / Time phenobarbital AdvReac Vomiting Verified 11/12/21 15:48 Assessment & Plan Assessment & Plan (1) MDD (major depressive disorder), recurrent episode, severe: Status: Acute Code(s): F33.2 - Major depressive disorder, recurrent severe without psychotic features (2) Alcohol use disorder: Status: Chronic (3) Opioid use disorder: Status: Chronic Code(s): F11.99 - Opioid use, unspecified with unspecified opioid-induced disorder (4) Chronic post-traumatic stress disorder (PTSD): Status: Acute Code(s): F43.12 - Post-traumatic stress disorder, chronic Plan Cam is a 51 y.o. male who carries a dx of MDD recurrent, AUD, opioid use disorder. He presented to [facility] on 02/28/2022 due to relapsing on alcohol over the past few months, drinking about 2 pints and a 12 pack daily, also using crack cocaine. Pt reported SI, [place] the train [place]. Pt has hx of multiple inpatient admissions for similar presentation, last at [facility] 03/2021. Currently residing at [facility] dual diagnosis program. Plan: Placed on CIWA, ativan protocol. Continue gabapentin for neuropathy s/p frostbite. Pt says he does not think he needs prazosin anymore for nightmares, will decrease to 2 mg and discontinue. Pt denies benefit on past trials of SSRIs/ SNRIs. 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 03/02/22- Continue current plan of care. 03/03/22- Begin Lorazepam tapering. Team concurs. 03/04/22- Increase Lorazepam to 1 mg tid Pt reports 3-4 weeks of drinking prior to admit, not days Risperdal 1 mg bid prn I spent minutes with the patient and/or on the patient floor today, greater than?50% of which was spent counseling/coordinating care. Patient educated on: medication risk/benefits, substance abuse and therapeutic strategies Informed Consent: further education needed Reason for contiued inpatient stay Substantial Risk for: med/psych decompensation
[2022-03-04 20:45] VITALS: BP 135/81; PULSE 97; RESP 18; TEMP 36.4; O2SAT 96
[2022-03-04] MEDS: Prazosin HCL 1 MG CAPSULE 2 MG PO (20:52)
[2022-03-04] MEDS: traZODone HCL 50 MG TABLET 150 MG PO (20:52)
[2022-03-04] MEDS: Melatonin 3 MG TABLET 6 MG PO (20:52)
[2022-03-05] MEDS: LORazepam 1 MG TABLET PO ×7 (00:36→23:53)
[2022-03-05] MEDS: Cyclobenzaprine HCl 10 MG TABLET PO (00:36)
[2022-03-05] MEDS: hydrOXYzine HCL 50 MG TABLET PO ×2 (00:36→23:53)
[2022-03-05] MEDS: risperiDONE 1 MG TABLET PO ×3 (00:40→20:46)
[2022-03-05 00:44] VITALS: BP 170/70; PULSE 77; O2SAT 96
[2022-03-05 08:45] VITALS: BP 131/69; PULSE 72; RESP 18; TEMP 36.6; O2SAT 96
[2022-03-05] MEDS: buPROPion HCl XL 150 MG TAB.ER.24H 450 MG PO (09:07)
[2022-03-05] MEDS: Gabapentin 400 MG CAPSULE 800 MG PO ×3 (09:08→20:46)
[2022-03-05] MEDS: Docusate Sodium 100 MG CAPSULE PO (09:08)
[2022-03-05] MEDS: Folic Acid 1 MG TABLET PO (09:08)
[2022-03-05] MEDS: Pyridoxine HCl (Vitamin B6) 50 MG TABLET PO (09:09)
[2022-03-05] MEDS: Multivitamin TABLET 1 TAB PO (09:09)
[2022-03-05] MEDS: Buprenorphine/Naloxone 8/2 mg FILM 2 FILM SUBLINGUAL (09:10)
[2022-03-05] MEDS: Thiamine HCL 100 MG TABLET 50 MG PO (09:10)
[2022-03-05 11:39] VITALS: BP 144/73; PULSE 87; RESP 20; TEMP 36.1; O2SAT 98
[2022-03-05] MEDS: metroNIDAZOLE 0.75 % Gel 45 GM TUBE 1 APPL TOPICAL (12:07)
[2022-03-05] MEDS: Nicotine 21 MG PATCH.TD24 TRANSDERMA (12:07)
--- NOTE | 2022-03-05 13:24 | HO.PSYCHPN ---
Subjective Subjective Date of Service: 03/05/22 Reason For Visit: SI, depression Subjective Notes: Conditional Voluntary Interim History: Pt reports sleep is fair, some voices and shadows at night, although per nursing sleeping through the night. Pt denies SI/HI. However, he reports struggling with depression. He reports constipation- reports miralax has worked in the past. No behavioral concerns. Medication Compliance: Yes Review of Systems Review of Systems Yes all other systems are reviewed and are negative Constitutional: Reports as per HPI Mental Status Exam Mental Status Exam Narrative: Appearance: casually groomed, fair hygiene in NAD Behavior:cooperative psychomotor: no agitation or retardation noted Speech: clear, normal rate/rhythm/volume, spontaneous Thought process:linear Thought content:no psychosis, future oriented in that he wants to be able to return to [facility] program. Mood: depressed Affect: constricted SI:none HI: none VH/AH:shadows at night- ? alcoholic hallucinosis Delusions:none Insight/judgment:fair x 2. Memory/cog: alert, oriented x 3. grossly intact to conversational testing. Diagnostics Vital Signs (24Hr): Vital Signs - 24 hr 03/04/22 20:45 03/05/22 00:44 03/05/22 08:45 Temperature 97.6 F 97.8 F Pulse Rate 97 77 72 Respiratory Rate 18 18 Blood Pressure 135/81 170/70 H 131/69 Pulse Oximetry 96 96 96 Oxygen Delivery Method Room Air Room Air Room Air 03/05/22 11:39 Temperature 97.0 F Pulse Rate 87 Respiratory Rate 20 Blood Pressure 144/73 H Pulse Oximetry 98 Oxygen Delivery Method Room Air BMI result Body Mass Index 26.8 Labs Results: 02/28/22 21:45 02/28/22 21:45 Imaging Radiology Impressions: ITS Impressions Chest X-Ray 02/28/22 15:44 IMPRESSION: Clear lungs. Lumbar Spine X-Ray 02/28/22 16:23 IMPRESSION: 1. No subluxation or fracture. 2. Mild multilevel degenerative disc disease. Head CT 02/28/22 17:52 IMPRESSION: 1. No acute intracranial pathology. Medications Medications Current Medications Al Hydroxide/Mg Hydroxide (Magnesium Hydrox/Alum Hydrox 30 Ml Oral.Susp) 30 ml PO Q6H PRN PRN Reason: Heartburn/Nausea Buprenorphine/Naloxone (Buprenorphine/Naloxone 8/2 Mg Film) 2 film SUBLINGUAL DAILY [facility] Last Admin: 03/05/22 09:10 Dose: 2 film Bupropion HCl (Bupropion Hcl Xl 150 Mg Tab.Er.24h) 450 mg PO DAILY [facility] Last Admin: 03/05/22 09:07 Dose: 450 mg Cyclobenzaprine HCl (Cyclobenzaprine Hcl 10 Mg Tablet) 10 mg PO TID PRN PRN Reason: muscle spasm Last Admin: 03/05/22 00:36 Dose: 10 mg Docusate Sodium (Docusate Sodium 100 Mg Capsule) 100 mg PO BID [facility] Last Admin: 03/05/22 09:08 Dose: 100 mg Folic Acid (Folic Acid 1 Mg Tablet) 1 mg PO DAILY [facility] Last Admin: 03/05/22 09:08 Dose: 1 mg Gabapentin (Gabapentin 400 Mg Capsule) 800 mg PO TID [facility] Last Admin: 03/05/22 14:34 Dose: 800 mg Hydroxyzine HCl (Hydroxyzine Hcl 50 Mg Tablet) 50 mg PO BEDTIME PRN PRN Reason: insomnia Last Admin: 03/05/22 00:36 Dose: 50 mg Hydroxyzine HCl (Hydroxyzine Hcl 25 Mg Tablet) 25 mg PO Q6H PRN PRN Reason: Anxiety Last Admin: 03/04/22 08:35 Dose: 25 mg Ibuprofen (Ibuprofen 600 Mg Tablet) 600 mg PO Q8H PRN PRN Reason: Pain, Mild (Pain Scale 1-3) Last Admin: 03/04/22 20:52 Dose: 600 mg Lorazepam (Lorazepam 1 Mg Tablet) 1 mg PO Q2H PRN PRN Reason: CIWA 6-11 Last Admin: 03/05/22 11:46 Dose: 1 mg Lorazepam (Lorazepam 1 Mg Tablet) 1 mg PO TID [facility] Last Admin: 03/05/22 14:34 Dose: 1 mg Magnesium Hydroxide (Milk Of Magnesia 30 Ml Oral.Susp) 30 ml PO DAILY PRN PRN Reason: Constipation Melatonin (Melatonin 3 Mg Tablet) 6 mg PO BEDTIME [facility] Last Admin: 03/04/22 20:52 Dose: 6 mg Metronidazole (Metronidazole 0.75 % Gel 45 Gm Tube) 1 appl TOPICAL BID [facility] Last Admin: 03/05/22 12:07 Dose: 1 appl Multivitamins/Vitamin C (Multivitamin Tablet) 1 tab PO DAILY [facility] Last Admin: 03/05/22 09:09 Dose: 1 tab Nicotine (Nicotine 21 Mg Patch.Td24) 21 mg TRANSDERMA DAILY [facility] Last Admin: 03/05/22 12:07 Dose: 21 mg Nicotine Polacrilex (Nicotine Polacrilex 2 Mg Gum) 4 mg BUCCAL Q2H PRN PRN Reason: Nicotine Cravings Last Admin: 03/03/22 19:09 Dose: 4 mg Ondansetron HCl (Ondansetron Odt 4 Mg Tab.Rapdis) 4 mg TRANSLINGU Q8H PRN PRN Reason: nausea Polyethylene Glycol (Polyethylene Glycol 3350 17 Gm Powd.Pack) 17 gm PO DAILY PRN PRN Reason: Constipation Last Admin: 03/03/22 11:00 Dose: 17 gm Polyethylene Glycol (Polyethylene Glycol 3350 17 Gm Powd.Pack) 17 gm PO DAILY PRN PRN Reason: Constipation Prazosin HCl (Prazosin Hcl 1 Mg Capsule) 2 mg PO BEDTIME [facility]; Protocol Last Admin: 03/04/22 20:52 Dose: 2 mg Pyridoxine HCl (Pyridoxine Hcl (Vitamin B6) 50 Mg Tablet) 50 mg PO DAILY [facility] Last Admin: 03/05/22 09:09 Dose: 50 mg Risperidone (Risperidone 1 Mg Tablet) 1 mg PO BID PRN PRN Reason: psychotic sx Last Admin: 03/05/22 14:37 Dose: 1 mg Thiamine HCl (Thiamine Hcl 100 Mg Tablet) 50 mg PO DAILY [facility] Last Admin: 03/05/22 09:10 Dose: 50 mg Trazodone HCl (Trazodone Hcl 50 Mg Tablet) 150 mg PO BEDTIME [facility] Last Admin: 03/04/22 20:52 Dose: 150 mg Allergies Allergies Allergy/AdvReac Type Severity Reaction Status Date / Time phenobarbital AdvReac Vomiting Verified 11/12/21 15:48 Assessment & Plan Assessment & Plan (1) MDD (major depressive disorder), recurrent episode, severe: Status: Acute Code(s): F33.2 - Major depressive disorder, recurrent severe without psychotic features (2) Alcohol use disorder: Status: Chronic (3) Opioid use disorder: Status: Chronic Code(s): F11.99 - Opioid use, unspecified with unspecified opioid-induced disorder (4) Chronic post-traumatic stress disorder (PTSD): Status: Acute Code(s): F43.12 - Post-traumatic stress disorder, chronic Plan Cam is a 51 y.o. male who carries a dx of MDD recurrent, AUD, opioid use disorder. He presented [place] [facility] [place]22 due to relapsing on alcohol over the past few months, drinking about 2 pints and a 12 pack daily, also using crack cocaine. Pt reported SI, [place] train [place]. Pt has hx of multiple inpatient admissions for similar presentation, [place] [facility] [place] Currently residing at [facility] dual diagnosis program. Plan: Placed on CIWA, ativan protocol. Continue gabapentin for neuropathy s/p frostbite. Pt says he does not think he needs prazosin anymore for nightmares, will decrease to 2 mg and discontinue. Pt denies benefit on past trials of SSRIs/ SNRIs. 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 03/02/22- Continue current plan of care. 03/03/22- Begin Lorazepam tapering. Team concurs. 03/04/22- Increase Lorazepam to 1 mg tid Pt reports 3-4 weeks of drinking prior to admit, not days Risperdal 1 mg bid prn 03/05 continue CIWA, scheduled ativan gradually taper. miralax for constipation. I spent minutes with the patient and/or on the patient floor today, greater than?50% of which was spent counseling/coordinating care. Reason for contiued inpatient stay Substantial Risk for: harm to self
[2022-03-05 16:32] VITALS: BP 147/83; PULSE 93; RESP 18; O2SAT 98
[2022-03-05] MEDS: Nicotine Polacrilex 2 MG GUM 4 MG BUCCAL (16:40)
[2022-03-05 20:45] VITALS: BP 132/82; PULSE 94; RESP 18; TEMP 36.7; O2SAT 98
[2022-03-05] MEDS: traZODone HCL 50 MG TABLET 150 MG PO (20:46)
[2022-03-05] MEDS: Sennosides/Docusate Sodium TABLET 2 TAB PO (20:46)
[2022-03-05] MEDS: Melatonin 3 MG TABLET 6 MG PO (20:46)
[2022-03-05] MEDS: Prazosin HCL 1 MG CAPSULE 2 MG PO (20:46)
[2022-03-05] MEDS: Ibuprofen 600 MG TABLET PO (20:47)
[2022-03-06] MEDS: Gabapentin 400 MG CAPSULE 800 MG PO ×3 (09:10→20:37)
[2022-03-06] MEDS: buPROPion HCl XL 150 MG TAB.ER.24H 450 MG PO (09:10)
[2022-03-06] MEDS: Thiamine HCL 100 MG TABLET 50 MG PO (09:10)
[2022-03-06] MEDS: Folic Acid 1 MG TABLET PO (09:11)
[2022-03-06] MEDS: Buprenorphine/Naloxone 8/2 mg FILM 2 FILM SUBLINGUAL (09:11)
[2022-03-06] MEDS: Multivitamin TABLET 1 TAB PO (09:11)
[2022-03-06] MEDS: LORazepam 1 MG TABLET PO ×4 (09:11→20:39)
[2022-03-06] MEDS: Pyridoxine HCl (Vitamin B6) 50 MG TABLET PO (09:11)
[2022-03-06] MEDS: Nicotine 21 MG PATCH.TD24 TRANSDERMA (09:11)
[2022-03-06 09:17] VITALS: BP 128/67; PULSE 76; TEMP 36.8; O2SAT 97
[2022-03-06] MEDS: metroNIDAZOLE 0.75 % Gel 45 GM TUBE 1 APPL TOPICAL (10:19)
--- NOTE | 2022-03-06 12:38 | HO.PSYCHPN ---
Subjective Subjective Date of Service: 03/06/22 Reason For Visit: SI, depression Subjective Notes: Conditional Voluntary Interim History: Pt reports mood is better in that he is less depressed, less overwhelmed. He learned that he is allowed to return to it if he goes to [facility] first. He reports sleep is poor. Less AH. Passive SI, no plan or intent. Medication Compliance: Yes Review of Systems Review of Systems Yes all other systems are reviewed and are negative Constitutional: Reports as per [facility] Mental Status Exam Mental Status Exam Narrative: Appearance: casually groomed, fair hygiene in NAD Behavior:cooperative psychomotor: no agitation or retardation noted Speech: clear, normal rate/rhythm/volume, spontaneous Thought process:linear Thought content:no psychosis, future oriented in that he wants to be able to return to it program. Mood: depressed Affect: constricted SI:none HI: none VH/AH:shadows at night- ? alcoholic hallucinosis Delusions:none Insight/judgment:fair x 2. Memory/cog: alert, oriented x 3. grossly intact to conversational testing. Patient Appearance: Fatigued Patient Orientation: Person, Place, Time and Situation Level of Consciousness: Alert Patient Behavior: Talkative and Good Eye Contact Mood Description: Depressed, Anxious and Apprehensive Affect Description: Flat Patient Cognition Impaired: No Ability to Follow Directions: Good Speech Pattern: Clear and Spontaneous Speech Memory Description: Episodic Impaired Diagnostics Vital Signs (24Hr): Vital Signs - 24 hr 03/06/22 20:27 03/07/22 08:30 Temperature 97.9 F 98.1 F Pulse Rate 85 73 Respiratory Rate 18 Blood Pressure 151/73 H 114/59 L Pulse Oximetry 99 98 Oxygen Delivery Method Room Air Room Air BMI result Body Mass Index 28.1 Labs Results: 02/28/22 21:45 02/28/22 21:45 Labs: Laboratory Results - last 48 hr 03/06/22 12:50 COVID-19 (LINK) Negative COVID-19 Clin Com See Note Imaging Radiology Impressions: ITS Impressions Chest X-Ray 02/28/22 15:44 IMPRESSION: Clear lungs. Lumbar Spine X-Ray 02/28/22 16:23 IMPRESSION: 1. No subluxation or fracture. 2. Mild multilevel degenerative disc disease. Head CT 02/28/22 17:52 IMPRESSION: 1. No acute intracranial pathology. Medications Medications Current Medications Al Hydroxide/Mg Hydroxide (Magnesium Hydrox/Alum Hydrox 30 Ml Oral.Susp) 30 ml PO Q6H PRN PRN Reason: Heartburn/Nausea Buprenorphine/Naloxone (Buprenorphine/Naloxone 8/2 Mg Film) 2 film SUBLINGUAL DAILY [facility] Last Admin: 03/07/22 09:32 Dose: 2 film Bupropion HCl (Bupropion Hcl Xl 150 Mg Tab.Er.24h) 450 mg PO DAILY [facility] Last Admin: 03/07/22 09:25 Dose: 450 mg Cyclobenzaprine HCl (Cyclobenzaprine Hcl 10 Mg Tablet) 10 mg PO TID PRN PRN Reason: muscle spasm Last Admin: 03/06/22 20:36 Dose: 10 mg Folic Acid (Folic Acid 1 Mg Tablet) 1 mg PO DAILY [facility] Last Admin: 03/07/22 09:29 Dose: 1 mg Gabapentin (Gabapentin 400 Mg Capsule) 800 mg PO TID [facility] Last Admin: 03/07/22 09:25 Dose: 800 mg Hydroxyzine HCl (Hydroxyzine Hcl 50 Mg Tablet) 50 mg PO BEDTIME PRN PRN Reason: insomnia Last Admin: 03/05/22 23:53 Dose: 50 mg Hydroxyzine HCl (Hydroxyzine Hcl 25 Mg Tablet) 25 mg PO Q6H PRN PRN Reason: Anxiety Last Admin: 03/04/22 08:35 Dose: 25 mg Ibuprofen (Ibuprofen 600 Mg Tablet) 600 mg PO Q8H PRN PRN Reason: Pain, Mild (Pain Scale 1-3) Last Admin: 03/06/22 20:39 Dose: 600 mg Lorazepam (Lorazepam 0.5 Mg Tablet) 0.5 mg PO TID [facility] Magnesium Hydroxide (Milk Of Magnesia 30 Ml Oral.Susp) 30 ml PO DAILY PRN PRN Reason: Constipation Melatonin (Melatonin 3 Mg Tablet) 6 mg PO BEDTIME [facility] Last Admin: 03/06/22 20:38 Dose: 6 mg Metronidazole (Metronidazole 0.75 % Gel 45 Gm Tube) 1 appl TOPICAL BID [facility] Last Admin: 03/07/22 09:32 Dose: 1 appl Multivitamins/Vitamin C (Multivitamin Tablet) 1 tab PO DAILY [facility] Last Admin: 03/07/22 09:25 Dose: 1 tab Nicotine (Nicotine 21 Mg Patch.Td24) 21 mg TRANSDERMA DAILY [facility] Last Admin: 03/07/22 09:30 Dose: 21 mg Nicotine Polacrilex (Nicotine Polacrilex 2 Mg Gum) 4 mg BUCCAL Q2H PRN PRN Reason: Nicotine Cravings Last Admin: 03/05/22 16:40 Dose: 4 mg Ondansetron HCl (Ondansetron Odt 4 Mg Tab.Rapdis) 4 mg TRANSLINGU Q8H PRN PRN Reason: nausea Polyethylene Glycol (Polyethylene Glycol 3350 17 Gm Powd.Pack) 17 gm PO DAILY PRN PRN Reason: Constipation Last Admin: 03/03/22 11:00 Dose: 17 gm Polyethylene Glycol (Polyethylene Glycol 3350 17 Gm Powd.Pack) 17 gm PO DAILY PRN PRN Reason: Constipation Prazosin HCl (Prazosin Hcl 1 Mg Capsule) 2 mg PO BEDTIME [facility]; Protocol Last Admin: 03/06/22 20:35 Dose: 2 mg Pyridoxine HCl (Pyridoxine Hcl (Vitamin B6) 50 Mg Tablet) 50 mg PO DAILY [facility] Last Admin: 03/07/22 09:28 Dose: 50 mg Senna/Docusate Sodium (Sennosides/Docusate Sodium Tablet) 2 tab PO BEDTIME [facility] Last Admin: 03/06/22 20:38 Dose: 2 tab Thiamine HCl (Thiamine Hcl 100 Mg Tablet) 50 mg PO DAILY [facility] Last Admin: 03/07/22 09:29 Dose: 50 mg Trazodone HCl (Trazodone Hcl 100 Mg Tablet) 200 mg PO BEDTIME [facility] Allergies Allergies Allergy/AdvReac Type Severity Reaction Status Date / Time phenobarbital AdvReac Vomiting Verified 11/12/21 15:48 Assessment & Plan Assessment & Plan (1) MDD (major depressive disorder), recurrent episode, severe: Status: Acute Code(s): F33.2 - Major depressive disorder, recurrent severe without psychotic features (2) Alcohol use disorder: Status: Chronic (3) Opioid use disorder: Status: Chronic Code(s): F11.99 - Opioid use, unspecified with unspecified opioid-induced disorder (4) Chronic post-traumatic stress disorder (PTSD): Status: Acute Code(s): F43.12 - Post-traumatic stress disorder, chronic Plan Cam is a 51 y.o. male who carries a dx of MDD recurrent, AUD, opioid use disorder. He presented to [facility] ED on 02/28/2022 due to relapsing on alcohol over the past few months, drinking about 2 pints and a 12 pack daily, also using crack cocaine. Pt reported SI, found [place] train [place]. Pt has hx of multiple inpatient admissions for similar presentation, last at [facility] 03/2021. Currently residing at [facility] dual diagnosis program. Plan: Placed on CIWA, ativan protocol. Continue gabapentin for neuropathy s/p frostbite. Pt says he does not think he needs prazosin anymore for nightmares, will decrease to 2 mg and discontinue. Pt denies benefit on past trials of SSRIs/ SNRIs. 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 03/02/22- Continue current plan of care. 03/03/22- Begin Lorazepam tapering. Team concurs. 03/04/22- Increase Lorazepam to 1 mg tid Pt reports 3-4 weeks of drinking prior to admit, not days Risperdal 1 mg bid prn 03/05 continue CIWA, scheduled ativan gradually taper. miralax for constipation. d/c risperidone as pt reports restlessness with it 03/06 d/c risperidone due to restlessness. continue all other meds. I spent minutes with the patient and/or on the patient floor today, greater than?50% of which was spent counseling/coordinating care. Reason for contiued inpatient stay Substantial Risk for: harm to self
[2022-03-06] MEDS: Cyclobenzaprine HCl 10 MG TABLET PO ×2 (13:34→20:36)
[2022-03-06 14:10] LABS: COVID-19 Test Negative (Negative)
[2022-03-06 20:27] VITALS: BP 151/73; PULSE 85; TEMP 36.6; O2SAT 99
[2022-03-06] MEDS: Prazosin HCL 1 MG CAPSULE 2 MG PO (20:35)
[2022-03-06] MEDS: Sennosides/Docusate Sodium TABLET 2 TAB PO (20:38)
[2022-03-06] MEDS: Melatonin 3 MG TABLET 6 MG PO (20:38)
[2022-03-06] MEDS: traZODone HCL 50 MG TABLET 150 MG PO (20:39)
[2022-03-06] MEDS: Ibuprofen 600 MG TABLET PO (20:39)
[2022-03-07 07:00] VITALS: BMI 28.1
[2022-03-07 08:30] VITALS: BP 114/59; PULSE 73; RESP 18; TEMP 36.7; O2SAT 98
[2022-03-07] MEDS: Gabapentin 400 MG CAPSULE 800 MG PO ×3 (09:25→20:37)
[2022-03-07] MEDS: Multivitamin TABLET 1 TAB PO (09:25)
[2022-03-07] MEDS: buPROPion HCl XL 150 MG TAB.ER.24H 450 MG PO (09:25)
[2022-03-07] MEDS: Pyridoxine HCl (Vitamin B6) 50 MG TABLET PO (09:28)
[2022-03-07] MEDS: Thiamine HCL 100 MG TABLET 50 MG PO (09:29)
[2022-03-07] MEDS: Folic Acid 1 MG TABLET PO (09:29)
[2022-03-07] MEDS: LORazepam 1 MG TABLET PO (09:29)
[2022-03-07] MEDS: Nicotine 21 MG PATCH.TD24 TRANSDERMA (09:30)
[2022-03-07] MEDS: Buprenorphine/Naloxone 8/2 mg FILM 2 FILM SUBLINGUAL (09:32)
[2022-03-07] MEDS: metroNIDAZOLE 0.75 % Gel 45 GM TUBE 1 APPL TOPICAL (09:32)
--- NOTE | 2022-03-07 10:44 | P.PNPSI_ITS ---
Subjective Subjective Date of Service: 03/07/22 Reason For Visit: SI, depression Subjective Notes: Conditional Voluntary Interim History: Pt reports little improvement in sleep, tossing and turning. He reports passive SI but no plan or intent. Pt future oriented in that he wants to continue substance use treatment as well as psych tx. He reports hearing some voices, mumbles when lying down but this is decreasing, most likely related to alcohol use combine with high dose of wellbutrin. He wants to continue current dose of wellbutrin as he has felt over the years to be the most effective antidepressant for him. Medication Compliance: Yes Review of Systems Review of Systems Yes all other systems are reviewed and are negative Constitutional: Reports as per [facility] Mental Status Exam Mental Status Exam Narrative: Appearance: casually groomed, fair hygiene in NAD Behavior:cooperative psychomotor: no agitation or retardation noted Speech: clear, normal rate/rhythm/volume, spontaneous Thought process:linear Thought content:no psychosis, future oriented in that he wants to be able to return to [facility]. Mood: depressed Affect: constricted SI:none HI: none VH/AH:shadows at night- ? alcoholic hallucinosis Delusions:none Insight/judgment:fair x 2. Memory/cog: alert, oriented x 3. grossly intact to conversational testing. Diagnostics Vital Signs (24Hr): Vital Signs - 24 hr 03/06/22 20:27 Temperature 97.9 F Pulse Rate 85 Blood Pressure 151/73 H Pulse Oximetry 99 Oxygen Delivery Method Room Air BMI result Body Mass Index 26.8 Labs Results: 02/28/22 21:45 02/28/22 21:45 Labs: Laboratory Results - last 48 hr 03/06/22 12:50 COVID-19 (LINK) Negative COVID-19 Clin Com See Note Imaging Radiology Impressions: ITS Impressions Chest X-Ray 02/28/22 15:44 IMPRESSION: Clear lungs. Lumbar Spine X-Ray 02/28/22 16:23 IMPRESSION: 1. No subluxation or fracture. 2. Mild multilevel degenerative disc disease. Head CT 02/28/22 17:52 IMPRESSION: 1. No acute intracranial pathology. Medications Medications Current Medications Al Hydroxide/Mg Hydroxide (Magnesium Hydrox/Alum Hydrox 30 Ml Oral.Susp) 30 ml PO Q6H PRN PRN Reason: Heartburn/Nausea Buprenorphine/Naloxone (Buprenorphine/Naloxone 8/2 Mg Film) 2 film SUBLINGUAL DAILY [facility] Last Admin: 03/07/22 09:32 Dose: 2 film Bupropion HCl (Bupropion Hcl Xl 150 Mg Tab.Er.24h) 450 mg PO DAILY [facility] Last Admin: 03/07/22 09:25 Dose: 450 mg Cyclobenzaprine HCl (Cyclobenzaprine Hcl 10 Mg Tablet) 10 mg PO TID PRN PRN Reason: muscle spasm Last Admin: 03/06/22 20:36 Dose: 10 mg Folic Acid (Folic Acid 1 Mg Tablet) 1 mg PO DAILY [facility] Last Admin: 03/07/22 09:29 Dose: 1 mg Gabapentin (Gabapentin 400 Mg Capsule) 800 mg PO TID [facility] Last Admin: 03/07/22 09:25 Dose: 800 mg Hydroxyzine HCl (Hydroxyzine Hcl 50 Mg Tablet) 50 mg PO BEDTIME PRN PRN Reason: insomnia Last Admin: 03/05/22 23:53 Dose: 50 mg Hydroxyzine HCl (Hydroxyzine Hcl 25 Mg Tablet) 25 mg PO Q6H PRN PRN Reason: Anxiety Last Admin: 03/04/22 08:35 Dose: 25 mg Ibuprofen (Ibuprofen 600 Mg Tablet) 600 mg PO Q8H PRN PRN Reason: Pain, Mild (Pain Scale 1-3) Last Admin: 03/06/22 20:39 Dose: 600 mg Lorazepam (Lorazepam 0.5 Mg Tablet) 0.5 mg PO TID [facility] Magnesium Hydroxide (Milk Of Magnesia 30 Ml Oral.Susp) 30 ml PO DAILY PRN PRN Reason: Constipation Melatonin (Melatonin 3 Mg Tablet) 6 mg PO BEDTIME [facility] Last Admin: 03/06/22 20:38 Dose: 6 mg Metronidazole (Metronidazole 0.75 % Gel 45 Gm Tube) 1 appl TOPICAL BID [facility] Last Admin: 03/07/22 09:32 Dose: 1 appl Multivitamins/Vitamin C (Multivitamin Tablet) 1 tab PO DAILY [facility] Last Admin: 03/07/22 09:25 Dose: 1 tab Nicotine (Nicotine 21 Mg Patch.Td24) 21 mg TRANSDERMA DAILY [facility] Last Admin: 03/07/22 09:30 Dose: 21 mg Nicotine Polacrilex (Nicotine Polacrilex 2 Mg Gum) 4 mg BUCCAL Q2H PRN PRN Reason: Nicotine Cravings Last Admin: 03/05/22 16:40 Dose: 4 mg Ondansetron HCl (Ondansetron Odt 4 Mg Tab.Rapdis) 4 mg TRANSLINGU Q8H PRN PRN Reason: nausea Polyethylene Glycol (Polyethylene Glycol 3350 17 Gm Powd.Pack) 17 gm PO DAILY PRN PRN Reason: Constipation Last Admin: 03/03/22 11:00 Dose: 17 gm Polyethylene Glycol (Polyethylene Glycol 3350 17 Gm Powd.Pack) 17 gm PO DAILY PRN PRN Reason: Constipation Prazosin HCl (Prazosin Hcl 1 Mg Capsule) 2 mg PO BEDTIME [facility]; Protocol Last Admin: 03/06/22 20:35 Dose: 2 mg Pyridoxine HCl (Pyridoxine Hcl (Vitamin B6) 50 Mg Tablet) 50 mg PO DAILY [facility] Last Admin: 03/07/22 09:28 Dose: 50 mg Senna/Docusate Sodium (Sennosides/Docusate Sodium Tablet) 2 tab PO BEDTIME [facility] Last Admin: 03/06/22 20:38 Dose: 2 tab Thiamine HCl (Thiamine Hcl 100 Mg Tablet) 50 mg PO DAILY [facility] Last Admin: 03/07/22 09:29 Dose: 50 mg Trazodone HCl (Trazodone Hcl 100 Mg Tablet) 200 mg PO BEDTIME [facility] Allergies Allergies Allergy/AdvReac Type Severity Reaction Status Date / Time phenobarbital AdvReac Vomiting Verified 11/12/21 15:48 Assessment & Plan Assessment & Plan (1) MDD (major depressive disorder), recurrent episode, severe: Status: Acute Code(s): F33.2 - Major depressive disorder, recurrent severe without psychotic features (2) Alcohol use disorder: Status: Chronic (3) Opioid use disorder: Status: Chronic Code(s): F11.99 - Opioid use, unspecified with unspecified opioid-induced disorder (4) Chronic post-traumatic stress disorder (PTSD): Status: Acute Code(s): F43.12 - Post-traumatic stress disorder, chronic Plan Cam is a 51 y.o. male who carries a dx of MDD recurrent, AUD, opioid use disorder. He presented to [facility] on 02/28/2022 due to relapsing on alcohol over the past few months, drinking about 2 pints and a 12 pack daily, also using crack cocaine. Pt reported SI, found [place] the train tracks. Pt has hx of multiple inpatient admissions for similar presentation, [place] [facility] [place]. Currently residing at [facility] dual diagnosis program. Plan: Placed on CIWA, ativan protocol. Continue gabapentin for neuropathy s/p frostbite. Pt says he does not think he needs prazosin anymore for nightmares, will decrease to 2 mg and discontinue. Pt denies benefit on past trials of SSRIs/ SNRIs. 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 03/02/22- Continue current plan of care. 03/03/22- Begin Lorazepam tapering. Team concurs. 03/04/22- Increase Lorazepam to 1 mg tid Pt reports 3-4 weeks of drinking prior to admit, not days Risperdal 1 mg bid prn 03/05 continue CIWA, scheduled ativan gradually taper. miralax for constipation. d/c risperidone as pt reports restlessness with it 03/07 continue wellbutrin. increase trazodone to 200mg po qhs. I spent minutes with the patient and/or on the patient floor today, greater than?50% of which was spent counseling/coordinating care. Reason for contiued inpatient stay Substantial Risk for: harm to self
[2022-03-07] MEDS: Nicotine Polacrilex 2 MG GUM 4 MG BUCCAL (13:42)
[2022-03-07] MEDS: LORazepam 0.5 MG TABLET PO ×2 (15:39→20:36)
[2022-03-07] MEDS: Ibuprofen 600 MG TABLET PO (18:39)
[2022-03-07] MEDS: traZODone HCL 100 MG TABLET 200 MG PO (20:36)
[2022-03-07] MEDS: Sennosides/Docusate Sodium TABLET 2 TAB PO (20:37)
[2022-03-07] MEDS: Prazosin HCL 1 MG CAPSULE 2 MG PO (20:37)
[2022-03-07] MEDS: Melatonin 3 MG TABLET 6 MG PO (20:37)
[2022-03-07 20:41] VITALS: BP 174/86; PULSE 88; TEMP 36.3; O2SAT 98
[2022-03-08 08:02] VITALS: BP 132/62; PULSE 66; TEMP 36.6; O2SAT 95
[2022-03-08] MEDS: Buprenorphine/Naloxone 8/2 mg FILM 2 FILM SUBLINGUAL (08:31)
[2022-03-08] MEDS: Gabapentin 400 MG CAPSULE 800 MG PO ×3 (08:32→20:07)
[2022-03-08] MEDS: Nicotine 21 MG PATCH.TD24 TRANSDERMA (08:33)
[2022-03-08] MEDS: Multivitamin TABLET 1 TAB PO (08:33)
[2022-03-08] MEDS: buPROPion HCl XL 150 MG TAB.ER.24H 450 MG PO (08:33)
[2022-03-08] MEDS: Thiamine HCL 100 MG TABLET 50 MG PO (08:34)
[2022-03-08] MEDS: Folic Acid 1 MG TABLET PO (08:34)
[2022-03-08] MEDS: LORazepam 0.5 MG TABLET PO ×2 (08:35→15:27)
[2022-03-08] MEDS: Pyridoxine HCl (Vitamin B6) 50 MG TABLET PO (08:35)
[2022-03-08] MEDS: metroNIDAZOLE 0.75 % Gel 45 GM TUBE 1 APPL TOPICAL (08:37)
[2022-03-08] MEDS: Nicotine Polacrilex 2 MG GUM 4 MG BUCCAL ×2 (10:20→15:27)
[2022-03-08] MEDS: Ibuprofen 600 MG TABLET PO (10:20)
[2022-03-08] MEDS: Cyclobenzaprine HCl 10 MG TABLET PO ×3 (10:20→20:07)
--- NOTE | 2022-03-08 12:28 | P.PNPSI_ITS ---
Subjective Subjective Date of Service: 03/08/22 Reason For Visit: SI, depression Subjective Notes: Conditional Voluntary Interim History: Pt continues to report sleep is poor, tossing and turning and not feeling rested in morning. Pt reports less symptoms of depression, glad he can return to [facility]. He denies SI/HI. No AH/VH. We discussed trial of temazepam- note that this medication will be managed by program and prn doxapin if temazepam not effective. Medication Compliance: Yes Side effects from medications: No Attending Groups: Yes Review of Systems Review of Systems Yes all other systems are reviewed and are negative Constitutional: Reports as per [facility] Mental Status Exam Mental Status Exam Narrative: Appearance: casually groomed, fair hygiene in NAD Behavior:cooperative psychomotor: no agitation or retardation noted Speech: clear, normal rate/rhythm/volume, spontaneous Thought process:linear Thought content:no psychosis, future oriented in that he wants to be able to return to [facility]. Mood: depressed Affect: constricted SI:none HI: none VH/AH:shadows at night- ? alcoholic hallucinosis Delusions:none Insight/judgment:fair x 2. Memory/cog: alert, oriented x 3. grossly intact to conversational testing. Diagnostics Vital Signs (24Hr): Vital Signs - 24 hr 03/08/22 20:02 Temperature 97.8 F Pulse Rate 79 Respiratory Rate 18 Blood Pressure 152/91 H Pulse Oximetry 99 Oxygen Delivery Method Room Air BMI result Body Mass Index 28.1 Labs Results: 02/28/22 21:45 02/28/22 21:45 Imaging Radiology Impressions: ITS Impressions Chest X-Ray 02/28/22 15:44 IMPRESSION: Clear lungs. Lumbar Spine X-Ray 02/28/22 16:23 IMPRESSION: 1. No subluxation or fracture. 2. Mild multilevel degenerative disc disease. Head CT 02/28/22 17:52 IMPRESSION: 1. No acute intracranial pathology. Medications Medications Current Medications Al Hydroxide/Mg Hydroxide (Magnesium Hydrox/Alum Hydrox 30 Ml Oral.Susp) 30 ml PO Q6H PRN PRN Reason: Heartburn/Nausea Buprenorphine/Naloxone (Buprenorphine/Naloxone 8/2 Mg Film) 2 film SUBLINGUAL DAILY [facility] Last Admin: 03/08/22 08:31 Dose: 2 film Bupropion HCl (Bupropion Hcl Xl 150 Mg Tab.Er.24h) 450 mg PO DAILY [facility] Last Admin: 03/08/22 08:33 Dose: 450 mg Cyclobenzaprine HCl (Cyclobenzaprine Hcl 10 Mg Tablet) 10 mg PO TID PRN PRN Reason: muscle spasm Last Admin: 03/08/22 20:07 Dose: 10 mg Doxepin HCl (Doxepin Hcl 25 Mg Capsule) 50 mg PO BEDTIME PRN PRN Reason: sleep Last Admin: 03/09/22 01:10 Dose: 50 mg Folic Acid (Folic Acid 1 Mg Tablet) 1 mg PO DAILY [facility] Last Admin: 03/08/22 08:34 Dose: 1 mg Gabapentin (Gabapentin 400 Mg Capsule) 800 mg PO TID [facility] Last Admin: 03/08/22 20:07 Dose: 800 mg Hydroxyzine HCl (Hydroxyzine Hcl 25 Mg Tablet) 25 mg PO Q6H PRN PRN Reason: Anxiety Last Admin: 03/08/22 17:18 Dose: 25 mg Ibuprofen (Ibuprofen 400 Mg Tablet) 400 mg PO Q8H PRN PRN Reason: Pain, Mild (Pain Scale 1-3) Lorazepam (Lorazepam 0.5 Mg Tablet) 0.5 mg PO DAILY [facility] Stop: 03/10/22 09:01 Magnesium Hydroxide (Milk Of Magnesia 30 Ml Oral.Susp) 30 ml PO DAILY PRN PRN Reason: Constipation Melatonin (Melatonin 3 Mg Tablet) 6 mg PO BEDTIME [facility] Last Admin: 03/08/22 20:07 Dose: 6 mg Metronidazole (Metronidazole 0.75 % Gel 45 Gm Tube) 1 appl TOPICAL BID [facility] Last Admin: 03/08/22 20:08 Dose: Not Given Multivitamins/Vitamin C (Multivitamin Tablet) 1 tab PO DAILY [facility] Last Admin: 03/08/22 08:33 Dose: 1 tab Nicotine (Nicotine 21 Mg Patch.Td24) 21 mg TRANSDERMA DAILY [facility] Last Admin: 03/08/22 08:33 Dose: 21 mg Nicotine Polacrilex (Nicotine Polacrilex 2 Mg Gum) 4 mg BUCCAL Q2H PRN PRN Reason: Nicotine Cravings Last Admin: 03/08/22 15:27 Dose: 4 mg Ondansetron HCl (Ondansetron Odt 4 Mg Tab.Rapdis) 4 mg TRANSLINGU Q8H PRN PRN Reason: nausea Polyethylene Glycol (Polyethylene Glycol 3350 17 Gm Powd.Pack) 17 gm PO DAILY PRN PRN Reason: Constipation Last Admin: 03/03/22 11:00 Dose: 17 gm Polyethylene Glycol (Polyethylene Glycol 3350 17 Gm Powd.Pack) 17 gm PO DAILY PRN PRN Reason: Constipation Prazosin HCl (Prazosin Hcl 1 Mg Capsule) 2 mg PO BEDTIME [facility]; Protocol Last Admin: 03/08/22 20:07 Dose: 2 mg Pyridoxine HCl (Pyridoxine Hcl (Vitamin B6) 50 Mg Tablet) 50 mg PO DAILY [facility] Last Admin: 03/08/22 08:35 Dose: 50 mg Senna/Docusate Sodium (Sennosides/Docusate Sodium Tablet) 2 tab PO BEDTIME [facility] Last Admin: 03/08/22 20:07 Dose: 2 tab Temazepam (Temazepam 15 Mg Capsule) 15 mg PO BEDTIME [facility] Last Admin: 03/08/22 20:07 Dose: 15 mg Thiamine HCl (Thiamine Hcl 100 Mg Tablet) 50 mg PO DAILY [facility] Last Admin: 03/08/22 08:34 Dose: 50 mg Allergies Allergies Allergy/AdvReac Type Severity Reaction Status Date / Time phenobarbital AdvReac Vomiting Verified 11/12/21 15:48 Assessment & Plan Assessment & Plan (1) MDD (major depressive disorder), recurrent episode, severe: Status: Acute Code(s): F33.2 - Major depressive disorder, recurrent severe without psychotic features (2) Alcohol use disorder: Status: Chronic (3) Opioid use disorder: Status: Chronic Code(s): F11.99 - Opioid use, unspecified with unspecified opioid-induced disorder (4) Chronic post-traumatic stress disorder (PTSD): Status: Acute Code(s): F43.12 - Post-traumatic stress disorder, chronic Plan Cam is a 51 y.o. male who carries a dx of MDD recurrent, AUD, opioid use disorder. He presented to [facility] on 02/28/2022 due to relapsing on alcohol over the past few months, drinking about 2 pints and a 12 pack daily, also using crack cocaine. Pt reported SI, found [place] the train tracks. Pt has hx of multiple inpatient admissions for similar presentation, last at [facility] 03/2021. Currently residing at [facility] dual diagnosis program. Plan: Placed on CIWA, ativan protocol. Continue gabapentin for neuropathy s/p fr ostbite. Pt says he does not think he needs prazosin anymore for nightmares, will decrease to 2 mg and discontinue. Pt denies benefit on past trials of SSRIs/ SNRIs. 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 03/02/22- Continue current plan of care. 03/03/22- Begin Lorazepam tapering. Team concurs. 03/04/22- Increase Lorazepam to 1 mg tid Pt reports 3-4 weeks of drinking prior to admit, not days Risperdal 1 mg bid prn 03/05 continue CIWA, scheduled ativan gradually taper. miralax for constipation. d/c risperidone as pt reports restlessness with it 03/06 d/c risperidone due to restlessness. continue all other meds. 03/07 continue tx. 03/08 d/c trazodone, start temazepam 15mg po qhs. doxepin 50mg po prn sleep. continue ativan taper, now on 2 doses left of ativan 0.5mg po daily. I spent minutes with the patient and/or on the patient floor today, greater than?50% of which was spent counseling/coordinating care. Reason for contiued inpatient stay Substantial Risk for: harm to self
[2022-03-08] MEDS: hydrOXYzine HCL 25 MG TABLET PO (17:18)
[2022-03-08 20:02] VITALS: BP 152/91; PULSE 79; RESP 18; TEMP 36.6; O2SAT 99
[2022-03-08] MEDS: Prazosin HCL 1 MG CAPSULE 2 MG PO (20:07)
[2022-03-08] MEDS: Temazepam 15 MG CAPSULE PO (20:07)
[2022-03-08] MEDS: Sennosides/Docusate Sodium TABLET 2 TAB PO (20:07)
[2022-03-08] MEDS: Melatonin 3 MG TABLET 6 MG PO (20:07)
[2022-03-09] MEDS: Doxepin HCl 25 MG CAPSULE 50 MG PO ×2 (01:10→21:07)
[2022-03-09 09:20] VITALS: BP 130/73; PULSE 80; RESP 16; TEMP 36.7; O2SAT 98
[2022-03-09] MEDS: Nicotine 21 MG PATCH.TD24 TRANSDERMA (09:23)
[2022-03-09] MEDS: Gabapentin 400 MG CAPSULE 800 MG PO ×3 (09:24→21:07)
[2022-03-09] MEDS: Folic Acid 1 MG TABLET PO (09:24)
[2022-03-09] MEDS: Pyridoxine HCl (Vitamin B6) 50 MG TABLET PO (09:24)
[2022-03-09] MEDS: buPROPion HCl XL 150 MG TAB.ER.24H 450 MG PO (09:24)
[2022-03-09] MEDS: LORazepam 0.5 MG TABLET PO (09:24)
[2022-03-09] MEDS: Multivitamin TABLET 1 TAB PO (09:24)
[2022-03-09] MEDS: Thiamine HCL 100 MG TABLET 50 MG PO (09:24)
[2022-03-09] MEDS: Cyclobenzaprine HCl 10 MG TABLET PO ×3 (10:03→21:08)
[2022-03-09] MEDS: Ibuprofen 400 MG TABLET PO ×2 (10:04→15:30)
[2022-03-09] MEDS: Buprenorphine/Naloxone 8/2 mg FILM 2 FILM SUBLINGUAL (10:04)
[2022-03-09] MEDS: metroNIDAZOLE 0.75 % Gel 45 GM TUBE 1 APPL TOPICAL (10:07)
[2022-03-09] MEDS: Nicotine Polacrilex 2 MG GUM 4 MG BUCCAL ×2 (11:42→15:32)
--- NOTE | 2022-03-09 14:42 | P.PNPSI_ITS ---
Subjective Subjective Date of Service: 03/09/22 Reason For Visit: SI, depression Interim History: calm, cooperative. trouble sleeping, declines change inmgmt, thinks it's mostly hospital and once he leaves he'll sleep better. per staff, anx/dep. c/o poor sleep. trazodone DCed, restoril started. doxepin PRN sleep. went to bed at 2200, up at 0100 for doxepin, then appeared to sleep per staff report but pt states he did not sleep a wink after. Mental Status Exam Mental Status Exam Narrative: Appearance: casually groomed, fair hygiene in NAD Behavior:cooperative psychomotor: no agitation or retardation noted Speech: clear, normal rate/rhythm/volume, spontaneous Thought process:linear Thought content:no psychosis, future oriented in that he wants to be able to return to [facility]. Affect: constricted SI:none HI: none VH/AH: none expressed Delusions:none Insight/judgment:fair x 2. Memory/cog: alert, oriented x 3. grossly intact to conversational testing. Diagnostics Vital Signs (24Hr): Vital Signs - 24 hr 03/08/22 20:02 03/09/22 09:20 Temperature 97.8 F 98.0 F Pulse Rate 79 80 Respiratory Rate 18 16 Blood Pressure 152/91 H 130/73 Pulse Oximetry 99 98 Oxygen Delivery Method Room Air Room Air BMI result Body Mass Index 28.1 Labs Results: 02/28/22 21:45 02/28/22 21:45 Imaging Radiology Impressions: ITS Impressions Chest X-Ray 02/28/22 15:44 IMPRESSION: Clear lungs. Lumbar Spine X-Ray 02/28/22 16:23 IMPRESSION: 1. No subluxation or fracture. 2. Mild multilevel degenerative disc disease. Head CT 02/28/22 17:52 IMPRESSION: 1. No acute intracranial pathology. Medications Medications Current Medications Al Hydroxide/Mg Hydroxide (Magnesium Hydrox/Alum Hydrox 30 Ml Oral.Susp) 30 ml PO Q6H PRN PRN Reason: Heartburn/Nausea Buprenorphine/Naloxone (Buprenorphine/Naloxone 8/2 Mg Film) 2 film SUBLINGUAL DAILY [facility] Last Admin: 03/09/22 10:04 Dose: 2 film Bupropion HCl (Bupropion Hcl Xl 150 Mg Tab.Er.24h) 450 mg PO DAILY [facility] Last Admin: 03/09/22 09:24 Dose: 450 mg Cyclobenzaprine HCl (Cyclobenzaprine Hcl 10 Mg Tablet) 10 mg PO TID PRN PRN Reason: muscle spasm Last Admin: 03/09/22 10:03 Dose: 10 mg Doxepin HCl (Doxepin Hcl 25 Mg Capsule) 50 mg PO BEDTIME PRN PRN Reason: sleep Last Admin: 03/09/22 01:10 Dose: 50 mg Folic Acid (Folic Acid 1 Mg Tablet) 1 mg PO DAILY [facility] Last Admin: 03/09/22 09:24 Dose: 1 mg Gabapentin (Gabapentin 400 Mg Capsule) 800 mg PO TID [facility] Last Admin: 03/09/22 09:24 Dose: 800 mg Hydroxyzine HCl (Hydroxyzine Hcl 25 Mg Tablet) 25 mg PO Q6H PRN PRN Reason: Anxiety Last Admin: 03/08/22 17:18 Dose: 25 mg Ibuprofen (Ibuprofen 400 Mg Tablet) 400 mg PO Q8H PRN PRN Reason: Pain, Mild (Pain Scale 1-3) Last Admin: 03/09/22 10:04 Dose: 400 mg Lorazepam (Lorazepam 0.5 Mg Tablet) 0.5 mg PO DAILY [facility] Stop: 03/10/22 09:01 Last Admin: 03/09/22 09:24 Dose: 0.5 mg Magnesium Hydroxide (Milk Of Magnesia 30 Ml Oral.Susp) 30 ml PO DAILY PRN PRN Reason: Constipation Melatonin (Melatonin 3 Mg Tablet) 6 mg PO BEDTIME [facility] Last Admin: 03/08/22 20:07 Dose: 6 mg Metronidazole (Metronidazole 0.75 % Gel 45 Gm Tube) 1 appl TOPICAL BID [facility] Last Admin: 03/09/22 10:07 Dose: 1 appl Multivitamins/Vitamin C (Multivitamin Tablet) 1 tab PO DAILY [facility] Last Admin: 03/09/22 09:24 Dose: 1 tab Nicotine (Nicotine 21 Mg Patch.Td24) 21 mg TRANSDERMA DAILY [facility] Last Admin: 03/09/22 09:23 Dose: 21 mg Nicotine Polacrilex (Nicotine Polacrilex 2 Mg Gum) 4 mg BUCCAL Q2H PRN PRN Reason: Nicotine Cravings Last Admin: 03/09/22 11:42 Dose: 4 mg Ondansetron HCl (Ondansetron Odt 4 Mg Tab.Rapdis) 4 mg TRANSLINGU Q8H PRN PRN Reason: nausea Polyethylene Glycol (Polyethylene Glycol 3350 17 Gm Powd.Pack) 17 gm PO DAILY PRN PRN Reason: Constipation Last Admin: 03/03/22 11:00 Dose: 17 gm Polyethylene Glycol (Polyethylene Glycol 3350 17 Gm Powd.Pack) 17 gm PO DAILY PRN PRN Reason: Constipation Prazosin HCl (Prazosin Hcl 1 Mg Capsule) 2 mg PO BEDTIME [facility]; Protocol Last Admin: 03/08/22 20:07 Dose: 2 mg Pyridoxine HCl (Pyridoxine Hcl (Vitamin B6) 50 Mg Tablet) 50 mg PO DAILY [facility] Last Admin: 03/09/22 09:24 Dose: 50 mg Senna/Docusate Sodium (Sennosides/Docusate Sodium Tablet) 2 tab PO BEDTIME [facility] Last Admin: 03/08/22 20:07 Dose: 2 tab Temazepam (Temazepam 15 Mg Capsule) 15 mg PO BEDTIME [facility] Last Admin: 03/08/22 20:07 Dose: 15 mg Thiamine HCl (Thiamine Hcl 100 Mg Tablet) 50 mg PO DAILY [facility] Last Admin: 03/09/22 09:24 Dose: 50 mg Allergies Allergies Allergy/AdvReac Type Severity Reaction Status Date / Time phenobarbital AdvReac Vomiting Verified 11/12/21 15:48 Assessment & Plan Assessment & Plan (1) MDD (major depressive disorder), recurrent episode, severe: Status: Acute Code(s): F33.2 - Major depressive disorder, recurrent severe without psychotic features (2) Alcohol use disorder: Status: Chronic (3) Opioid use disorder: Status: Chronic Code(s): F11.99 - Opioid use, unspecified with unspecified opioid-induced disorder (4) Chronic post-traumatic stress disorder (PTSD): Status: Acute Code(s): F43.12 - Post-traumatic stress disorder, chronic Plan Cam is a 51 y.o. male who carries a dx of MDD recurrent, AUD, opioid use disorder. He presented to [facility] on 02/28/2022 due to relapsing on alcohol over the past few months, drinking about 2 pints and a 12 pack daily, also using crack cocaine. Pt reported SI, found himself [place] the train tracks. Pt has hx of multiple inpatient admissions for similar presentation, last at [facility] [place]21. Currently residing at [facility] dual diagnosis program. Plan: Placed on CIWA, ativan protocol. Continue gabapentin for neuropathy s/p frostbite. Pt says he does not think he needs prazosin anymore for nightmares, will decrease to 2 mg and discontinue. Pt denies benefit on past trials of SSRIs/ SNRIs. 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 03/02/22- Continue current plan of care. 03/03/22- Begin Lorazepam tapering. Team concurs. 03/04/22- Increase Lorazepam to 1 mg tid Pt reports 3-4 weeks of drinking prior to admit, not days Risperdal 1 mg bid prn 03/05 continue CIWA, scheduled ativan gradually taper. miralax for constipation. d/c risperidone as pt reports restlessness with it 03/06 d/c risperidone due to restlessness. continue all other meds. 03/07 continue tx. 03/08 d/c trazodone, start temazepam 15mg po qhs. doxepin 50mg po prn sleep. continue ativan taper, now on 2 doses left of ativan 0.5mg po daily. 03/09: still having trouble sleeping, declines any further changes in his regimen. planning for friday discharge. stable. I spent __15____ minutes with the patient and/or on the patient floor today, greater than?50% of which was spent counseling/coordinating care. Reason for contiued inpatient stay Substantial Risk for: inability to function and rapid decompensation
[2022-03-09] MEDS: hydrOXYzine HCL 25 MG TABLET PO ×2 (15:32→21:07)
[2022-03-09 20:55] VITALS: BP 160/71; PULSE 72; RESP 18; TEMP 36.6; O2SAT 98
[2022-03-09] MEDS: Sennosides/Docusate Sodium TABLET 2 TAB PO (21:07)
[2022-03-09] MEDS: Temazepam 15 MG CAPSULE PO (21:07)
[2022-03-09] MEDS: Melatonin 3 MG TABLET 6 MG PO (21:07)
[2022-03-09] MEDS: Prazosin HCL 1 MG CAPSULE 2 MG PO (21:07)
[2022-03-10 08:49] VITALS: BP 116/58; PULSE 76; RESP 17; TEMP 36.6; O2SAT 97
[2022-03-10] MEDS: buPROPion HCl XL 150 MG TAB.ER.24H 450 MG PO (08:52)
[2022-03-10] MEDS: Nicotine 21 MG PATCH.TD24 TRANSDERMA (08:52)
[2022-03-10] MEDS: Thiamine HCL 100 MG TABLET 50 MG PO (08:53)
[2022-03-10] MEDS: LORazepam 0.5 MG TABLET PO (08:54)
[2022-03-10] MEDS: Multivitamin TABLET 1 TAB PO (08:54)
[2022-03-10] MEDS: Gabapentin 400 MG CAPSULE 800 MG PO ×3 (08:54→19:51)
[2022-03-10] MEDS: Pyridoxine HCl (Vitamin B6) 50 MG TABLET PO (08:54)
[2022-03-10] MEDS: Folic Acid 1 MG TABLET PO (08:55)
[2022-03-10] MEDS: Cyclobenzaprine HCl 10 MG TABLET PO ×2 (09:38→15:37)
[2022-03-10] MEDS: Ibuprofen 400 MG TABLET PO (09:39)
[2022-03-10] MEDS: Buprenorphine/Naloxone 8/2 mg FILM 2 FILM SUBLINGUAL (09:39)
[2022-03-10] MEDS: Nicotine Polacrilex 2 MG GUM 4 MG BUCCAL (09:39)
[2022-03-10 12:54] LABS: COVID-19 Test Negative (Negative); IDNOW Serial# 55D5AD1C
--- NOTE | 2022-03-10 14:59 | P.PNPSI_ITS ---
Subjective Subjective Date of Service: 03/10/22 Reason For Visit: SI, depression Interim History: calm, cooperative, personable. slept better but not well. asks to start naproxen and benadryl cream for face. planning for DC tomorrow. no other questions or complaints. per staff, anxious. had flexeril and hydroxyzine PRNs. slept well, or appeared to. Mental Status Exam Mental Status Exam Narrative: Appearance: casually groomed, fair hygiene in NAD Behavior:cooperative psychomotor: no agitation or retardation noted Speech: clear, normal rate/rhythm/volume, spontaneous Thought process:linear Thought content:no psychosis, future oriented in that he wants to be able to return to [facility]. Affect: constricted SI:none HI: none VH/AH: none expressed Delusions:none Insight/judgment:fair x 2. Memory/cog: alert, oriented x 3. grossly intact to conversational testing. Diagnostics Vital Signs (24Hr): Vital Signs - 24 hr 03/09/22 20:55 03/10/22 08:49 Temperature 97.9 F 97.9 F Pulse Rate 72 76 Respiratory Rate 18 17 Blood Pressure 160/71 H 116/58 L Pulse Oximetry 98 97 Oxygen Delivery Method Room Air Room Air BMI result Body Mass Index 28.1 Labs Results: 02/28/22 21:45 02/28/22 21:45 Labs: Laboratory Results - last 48 hr 03/10/22 12:10 COVID-19 (LINK) Negative COVID-19 Clin Com See Note Imaging Radiology Impressions: ITS Impressions Chest X-Ray 02/28/22 15:44 IMPRESSION: Clear lungs. Lumbar Spine X-Ray 02/28/22 16:23 IMPRESSION: 1. No subluxation or fracture. 2. Mild multilevel degenerative disc disease. Head CT 02/28/22 17:52 IMPRESSION: 1. No acute intracranial pathology. Medications Medications Current Medications Al Hydroxide/Mg Hydroxide (Magnesium Hydrox/Alum Hydrox 30 Ml Oral.Susp) 30 ml PO Q6H PRN PRN Reason: Heartburn/Nausea Buprenorphine/Naloxone (Buprenorphine/Naloxone 8/2 Mg Film) 2 film SUBLINGUAL D AILY [facility] Last Admin: 03/10/22 09:39 Dose: 2 film Bupropion HCl (Bupropion Hcl Xl 150 Mg Tab.Er.24h) 450 mg PO DAILY [facility] Last Admin: 03/10/22 08:52 Dose: 450 mg Cyclobenzaprine HCl (Cyclobenzaprine Hcl 10 Mg Tablet) 10 mg PO TID PRN PRN Reason: muscle spasm Last Admin: 03/10/22 09:38 Dose: 10 mg Doxepin HCl (Doxepin Hcl 25 Mg Capsule) 50 mg PO BEDTIME PRN PRN Reason: sleep Last Admin: 03/09/22 21:07 Dose: 50 mg Folic Acid (Folic Acid 1 Mg Tablet) 1 mg PO DAILY [facility] Last Admin: 03/10/22 08:55 Dose: 1 mg Gabapentin (Gabapentin 400 Mg Capsule) 800 mg PO TID [facility] Last Admin: 03/10/22 08:54 Dose: 800 mg Hydroxyzine HCl (Hydroxyzine Hcl 25 Mg Tablet) 25 mg PO Q6H PRN PRN Reason: Anxiety Last Admin: 03/09/22 21:07 Dose: 25 mg Magnesium Hydroxide (Milk Of Magnesia 30 Ml Oral.Susp) 30 ml PO DAILY PRN PRN Reason: Constipation Melatonin (Melatonin 3 Mg Tablet) 6 mg PO BEDTIME [facility] Last Admin: 03/09/22 21:07 Dose: 6 mg Metronidazole (Metronidazole 0.75 % Gel 45 Gm Tube) 1 appl TOPICAL BID [facility] Last Admin: 03/10/22 08:55 Dose: Not Given Multivitamins/Vitamin C (Multivitamin Tablet) 1 tab PO DAILY [facility] Last Admin: 03/10/22 08:54 Dose: 1 tab Naproxen (Naproxen 250 Mg Tablet) 250 mg PO BID PRN PRN Reason: hip pain Nicotine (Nicotine 21 Mg Patch.Td24) 21 mg TRANSDERMA DAILY [facility] Last Admin: 03/10/22 08:52 Dose: 21 mg Nicotine Polacrilex (Nicotine Polacrilex 2 Mg Gum) 4 mg BUCCAL Q2H PRN PRN Reason: Nicotine Cravings Last Admin: 03/10/22 09:39 Dose: 4 mg Ondansetron HCl (Ondansetron Odt 4 Mg Tab.Rapdis) 4 mg TRANSLINGU Q8H PRN PRN Reason: nausea Polyethylene Glycol (Polyethylene Glycol 3350 17 Gm Powd.Pack) 17 gm PO DAILY PRN PRN Reason: Constipation Last Admin: 03/03/22 11:00 Dose: 17 gm Polyethylene Glycol (Polyethylene Glycol 3350 17 Gm Powd.Pack) 17 gm PO DAILY PRN PRN Reason: Constipation Prazosin HCl (Prazosin Hcl 1 Mg Capsule) 2 mg PO BEDTIME [facility]; Protocol Last Admin: 03/09/22 21:07 Dose: 2 mg Pyridoxine HCl (Pyridoxine Hcl (Vitamin B6) 50 Mg Tablet) 50 mg PO DAILY [facility] Last Admin: 03/10/22 08:54 Dose: 50 mg Senna/Docusate Sodium (Sennosides/Docusate Sodium Tablet) 2 tab PO BEDTIME [facility] Last Admin: 03/09/22 21:07 Dose: 2 tab Temazepam (Temazepam 15 Mg Capsule) 15 mg PO BEDTIME [facility] Last Admin: 03/09/22 21:07 Dose: 15 mg Thiamine HCl (Thiamine Hcl 100 Mg Tablet) 50 mg PO DAILY [facility] Last Admin: 03/10/22 08:53 Dose: 50 mg Zinc Acetate/Diphenhydramine (Diphenhydramine Hcl 2 % Cream 28 Gm Tube) 1 appl TOPICAL BID PRN; Protocol PRN Reason: rosacea Allergies Allergies Allergy/AdvReac Type Severity Reaction Status Date / Time phenobarbital AdvReac Vomiting Verified 11/12/21 15:48 Assessment & Plan Assessment & Plan (1) MDD (major depressive disorder), recurrent episode, severe: Status: Acute Code(s): F33.2 - Major depressive disorder, recurrent severe without psychotic features (2) Alcohol use disorder: Status: Chronic (3) Opioid use disorder: Status: Chronic Code(s): F11.99 - Opioid use, unspecified with unspecified opioid-induced disorder (4) Chronic post-traumatic stress disorder (PTSD): Status: Acute Code(s): F43.12 - Post-traumatic stress disorder, chronic Plan Cam is a 51 y.o. male who carries a dx of MDD recurrent, AUD, opioid use disorder. He presented to [facility] on 02/28/2022 due to relapsing on alcohol over the past few months, drinking about 2 pints and a 12 pack daily, also using crack cocaine. Pt reported SI, found [place] the train tracks. Pt has hx of multiple inpatient admissions for similar presentation, last at [facility] 03/2021. Currently residing at [facility] dual diagnosis program. Plan: Placed on CIWA, ativan protocol. Continue gabapentin for neuropathy s/p frostbite. Pt says he does not think he needs prazosin anymore for nightmares, will decrease to 2 mg and discontinue. Pt denies benefit on past trials of SSRIs/ SNRIs. 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 03/02/22- Continue current plan of care. 03/03/22- Begin Lorazepam tapering. Team concurs. 03/04/22- Increase Lorazepam to 1 mg tid Pt reports 3-4 weeks of drinking prior to admit, not days Risperdal 1 mg bid prn 03/05 continue CIWA, scheduled ativan gradually taper. miralax for constipation. d/c risperidone as pt reports restlessness with it 03/06 d/c risperidone due to restlessness. continue all other meds. 03/07 continue tx. 03/08 d/c trazodone, start temazepam 15mg po qhs. doxepin 50mg po prn sleep. continue ativan taper, now on 2 doses left of ativan 0.5mg po daily. 03/09: still having trouble sleeping, declines any further changes in his regimen. planning for friday discharge. stable. 03/10: COVID NEG today. planning to [facility] to [facility] tomorrow. added naprosyn and benadryl cream per his request. stable, continue current mgmt otherwise. I spent ___15___ minutes with the patient and/or on the patient floor today, greater than?50% of which was spent counseling/coordinating care. Reason for contiued inpatient stay Substantial Risk for: stable for discharge
[2022-03-10] MEDS: diphenhydrAMINE HCl 2 % Cream 28 GM TUBE 1 APPL TOPICAL (15:37)
[2022-03-10] MEDS: NaPROXEN 250 MG TABLET PO (15:38)
[2022-03-10 19:45] VITALS: BP 139/73; PULSE 88; RESP 16; TEMP 36.2; O2SAT 98
[2022-03-10] MEDS: Sennosides/Docusate Sodium TABLET 2 TAB PO (19:51)
[2022-03-10] MEDS: hydrOXYzine HCL 25 MG TABLET PO (19:51)
[2022-03-10] MEDS: Doxepin HCl 25 MG CAPSULE 50 MG PO (19:51)
[2022-03-10] MEDS: Melatonin 3 MG TABLET 6 MG PO (19:51)
[2022-03-10] MEDS: metroNIDAZOLE 0.75 % Gel 45 GM TUBE 1 APPL TOPICAL (19:51)
[2022-03-10] MEDS: Prazosin HCL 1 MG CAPSULE 2 MG PO (19:52)
[2022-03-10] MEDS: Temazepam 15 MG CAPSULE PO (19:52)
[2022-03-11] MEDS: Nicotine 21 MG PATCH.TD24 TRANSDERMA (08:45)
[2022-03-11] MEDS: Gabapentin 400 MG CAPSULE 800 MG PO (08:46)
[2022-03-11] MEDS: Thiamine HCL 100 MG TABLET 50 MG PO (08:46)
[2022-03-11] MEDS: Multivitamin TABLET 1 TAB PO (08:47)
[2022-03-11] MEDS: buPROPion HCl XL 150 MG TAB.ER.24H 450 MG PO (08:48)
[2022-03-11] MEDS: Pyridoxine HCl (Vitamin B6) 50 MG TABLET PO (08:48)
[2022-03-11] MEDS: Folic Acid 1 MG TABLET PO (08:48)
[2022-03-11] MEDS: Cyclobenzaprine HCl 10 MG TABLET PO (08:48)
[2022-03-11] MEDS: NaPROXEN 250 MG TABLET PO (08:49)
[2022-03-11 08:52] VITALS: BP 147/78; PULSE 71; RESP 16; TEMP 36.3; O2SAT 100
[2022-03-11] MEDS: Buprenorphine/Naloxone 8/2 mg FILM 2 FILM SUBLINGUAL (09:39)
--- NOTE | 2022-03-11 10:30 | P.DS_ITS ---
DS: Providers Provider Date of Service: 03/11/22 Date of admission: 03/01/22 15:49 Primary care physician: Caitlyn Greenberg NP DS: Diagnosis Discharge Diagnosis (1) MDD (major depressive disorder), recurrent episode, severe: Status: Acute (2) Alcohol use disorder: Status: Chronic (3) Opioid use disorder: Status: Chronic (4) Chronic post-traumatic stress disorder (PTSD): Status: Acute DS: Medications Discharge Medications Home Medications: Previous Rx's Medication Instructions Recorded buprenorphine 8 mg-naloxone 2 mg 2 film sublingual DAILY #0 ea 03/11/22 sublingual film (Suboxone) bupropion HCl 450 mg 24 hr tablet, 450 mg PO DAILY #30 tabs 03/11/22 extended release cyclobenzaprine 10 mg tablet 10 mg PO TID PRN muscle spasm #90 03/11/22 tabs diphenhydramine-zinc acetate 2 1 appl topical BID PRN rosacea #28 03/11/22 %-0.1 % topical cream (Banophen grams Anti-Itch) doxepin 50 mg capsule 50 mg PO BEDTIME PRN sleep #30 caps 03/11/22 folic acid 1 mg tablet 1 mg PO DAILY #30 tabs 03/11/22 gabapentin 800 mg tablet 1 tab PO TID #90 tabs 03/11/22 hydroxyzine HCl 25 mg tablet 25 mg PO Q6H PRN Anxiety #90 tabs 03/11/22 melatonin 3 mg tablet 6 mg PO BEDTIME #60 tabs 03/11/22 metronidazole 0.75 % topical gel 1 appl topical BID #45 grams 03/11/22 multivitamin (Daily-Tony tablet) 1 tab PO DAILY #30 tabs 03/11/22 naproxen 250 mg tablet 250 mg PO BID PRN hip pain #60 tabs 03/11/22 nicotine 21 mg/24 hr daily 21 mg transdermal DAILY #30 ea 03/11/22 transdermal patch polyethylene glycol 3350 17 gram 17 g PO DAILY PRN Constipation #30 03/11/22 oral powder packet ea prazosin 1 mg capsule 2 mg PO BEDTIME #60 caps 03/11/22 pyridoxine (vitamin B6) 50 mg 50 mg PO DAILY #30 tabs 03/11/22 tablet sennosides 8.6 mg-docusate sodium 2 tab PO BEDTIME #60 tabs 03/11/22 50 mg tablet (Senna Plus) temazepam 15 mg capsule 15 mg PO BEDTIME #30 caps 03/11/22 thiamine mononitrate (vit B1) 100 50 mg PO DAILY #30 tabs 03/11/22 mg tablet Mental Status Exam Mental Status Exam Narrative: Appearance: casually groomed, fair hygiene in NAD Behavior:cooperative psychomotor: no agitation or retardation noted Speech: clear, normal rate/rhythm/volume, spontaneous Thought process:linear Thought content:no psychosis, future oriented in that he wants to be able to return to [facility]. Mood: better Affect: brighter SI:none HI: none VH/AH: none expressed Delusions:none Insight/judgment:fair x 2. Memory/cog: alert, oriented x 3. grossly intact to conversational testing. Data Data Completed and Pending Completed studies during hospitalization [Text1]: 03/06/22 03/10/22 12:50 12:10 COVID-19 (LINK) Negative Negative COVID-19 Clin Com See Note See Note Imaging Diagnostic Imaging Impressions Chest X-Ray 02/28/22 15:44 IMPRESSION: Clear lungs. Lumbar Spine X-Ray 02/28/22 16:23 IMPRESSION: 1. No subluxation or fracture. 2. Mild multilevel degenerative disc disease. Head CT 02/28/22 17:52 IMPRESSION: 1. No acute intracranial pathology. DS: Summary Hospital Course Hospital Course: HPI: Cam is a 51 y.o. male who carries a dx of MDD recurrent, AUD, opioid use disorder. He presented to [facility] on 02/28/2022 due to relapsing on alcohol over the past few months, drinking about 2 pints and a 12 pack daily, last drink around 9:00AM on the morning of 02/28/2022, also using crack cocaine. Pt reported SI, found himself on the train tracks today, hoping for a train to come by, may have blacked out as he woke up disheveled. He told pathology secretary/transcriptionist that ?crack makes me severely depressed and suicidal.? Other stressors include that lack of supports. Pt has hx of multiple inpatient admissions for similar presentation, last at [facility] 03/2021. Currently residing at [facility] dual diagnosis program. I spoke with pt this evening. He reports his withdrawal is currently ?pretty manageable,? feels shaky, lights bother him, nauseous, and has headaches. Says he has been without his suboxone or wellbutrin x a couple days, in withdrawal from these substances. Says he doesnt take ativan at home. Says ?I think its okay? for wellbutrin, ?its one of the things I found that does what it says.? Pt reports he has ?a lot of anxiety.? Pt identifies precipitating factors as being recently diagnosed with severe arthritis in R hip, ?which is nuts.? Says on top of hip pain he has degenerative disc disease, pain is ?giving me hell? and that he has been ?playing it off that its a lot better than it is.? States he thought that his depression was getting better but ?now im not so sure? since his diagnosis. He tried to go to the gym but says it didnt help his pain and he felt ?really discouraged.? No longer doing PT. Sleep is poor as he has been waking up at 2am, unable to fall back to sleep. Energy is low. His appetite is good. Says he feels safe, denies SI/SIB/HI.? Past Psychiatric History: -Past meds: SSRIs/ SNRIs ?didnt seem to do a lot? and had SEs, buspar (didnt help), seroquel (wt gain), risperdal (wt gain), clonidine, remeron (wt gain), campral (lack of efficacy) -Long hx of inpatient admissions for SI, substance use and alcohol abuse, depression, and PTSD. Last at [facility] 03/2021. -Has a dx of a hx of overdosing on wellbutrin HOSPITAL COURSE On the unit, pt was admitted on a CV and placed on 15 minutes checks for safety. Pt presented as hopeless, helpless, flashbacks from past trauma, anxious. He was committed to return to residential program and he was reaccepted to [facility]. After reviewing risks, benefits and alternative treatment options, pt reports several antidepressant trials with limited benefit. He reports wellbutrin most effective and he asked to stay on it. His sleep was disruptive- nightmares, tossing and turning. He was tried on doxepin for sleep and as booster for antidepressant. Given that pt is going to a dual residential program where medications are managed and risk of misuse and abuse is much less, decision to try temazepam low dose in addition to doxepin was made. His sleep seem to improve with combination. His affect was gradually brighter, he reported less symptoms of depression and presented more future oriented. No SI/HI. No signs of aggression towards self or others. No need for restraints. No incidences of behavioral disturbaces. Status at Discharge Cognitive/behavioral status at discharge: Pt with brighter, non labile affect. No SI/HI. Future oriented. No signs of aggression towards self or others. Functional status at discharge: independent ambulation Overall status at discharge: patient is progressing back to baseline Time Spent with Patient Time attestation: Total time spent providing and/or coordinating discharge services: Time spent: Greater than 30 minutes Discharge Plan Discharge Anticipated Discharge Date/Time: 03/11/22 09:46 Patient Disposition: Home Health Service Discharge Diagnosis: MDD, recurrent, moderate PTSD Alcohol USe Disorder OPioid Use Disorder Referrals: Dr. Mccabe (Psychiatry) [Other] - 03/22/22 12:00 pm (IN OFFICE APPOINTMENT) Ximena Gabriel (Therapy) [Other] - 03/12/22 3:00 pm (IN OFFICE APPOINTMENT) Partial Hospitalization Program [Other] - 03/21/22 8:00 am (IN PERSON INTAKE APPOINTMENT) Caitlyn Greenberg NP [Primary Care Provider] - 03/19/22 10:30 am Discharge Medications: New cyclobenzaprine 10 mg Tablet 10 mg PO TID PRN (Reason: muscle spasm) Qty: 90 0RF prazosin 1 mg Capsule 2 mg PO BEDTIME Qty: 60 0RF Protocol: Hold for SBP< HOLD for SBP < : 90 nicotine 21 mg/24 hr Patch 24 Hour 21 mg transdermal DAILY Qty: 30 0RF buprenorphine-naloxone [Suboxone] 8-2 mg Film 2 film sublingual DAILY Qty: 0 0RF multivitamin [Daily-Tony] Tablet 1 tab PO DAILY Qty: 30 0RF polyethylene glycol 3350 17 gram Powder In Packet 17 g PO DAILY PRN (Reason: Constipation) Qty: 30 0RF melatonin 3 mg Tablet 6 mg PO BEDTIME Qty: 60 0RF pyridoxine (vitamin B6) 50 mg Tablet 50 mg PO DAILY Qty: 30 0RF folic acid 1 mg Tablet 1 mg PO DAILY Qty: 30 0RF hydroxyzine HCl 25 mg Tablet 25 mg PO Q6H PRN (Reason: Anxiety) Qty: 90 0RF metronidazole 0.75 % Gel 1 appl topical BID Qty: 45 0RF thiamine mononitrate (vit B1) 100 mg Tablet 50 mg PO DAILY Qty: 30 0RF Discontinued cyclobenzaprine 10 mg tablet 10 mg PO TID PRN (Reason: muscle spasm) 7 Days Qty: 21 0RF prazosin 1 mg capsule 1 cap PO BEDTIME Rx Instructions: TDD = 3 mg hydroxyzine pamoate 50 mg capsule 1 cap PO BEDTIME PRN (Reason: insomnia) gabapentin 800 mg tablet 1 tab PO TID trazodone 150 mg tablet 1 tab PO BEDTIME metronidazole 0.75 % cream 1 appl topical BID docusate sodium 100 mg capsule 1 cap PO BID pyridoxine (vitamin B6) 50 mg tablet 1 tab PO DAILY folic acid 1 mg tablet 1 tab PO DAILY prazosin 2 mg capsule 1 cap PO BEDTIME Rx Instructions: TDD = 3 mg bupropion HCl 300 mg tablet extended release 24 hr 1 tab PO DAILY Rx Instructions: TDD of 450 mg bupropion HCl 150 mg tablet extended release 24 hr 1 tab PO DAILY Rx Instructions: TDD of 450 mg melatonin 5 mg tablet 1 tab PO BEDTIME Thera-M 9 mg iron-400 mcg tablet 1 tab PO DAILY buprenorphine-naloxone [Suboxone] 8-2 mg film 2 strip sublingual DAILY polyethylene glycol 3350 17 gram/dose powder 17 g PO DAILY PRN (Reason: Constipation) No Action lorazepam 0.5 mg tablet 1 tab PO BID PRN (Reason: anxiety) Vyvanse 20 mg capsule 1 cap PO QAM bupropion HCl 300 mg tablet extended release 24 hr 1 tab PO DAILY sennosides-docusate sodium [Senna Plus] 8.6-50 mg tablet 2 tab PO BEDTIME PRN (Reason: Constipation) naproxen 250 mg tablet 250 mg PO BID gabapentin 800 mg tablet 1 tab PO QID Discharge Orders: Discharge Order (Routine); Ordered 03/11/22 Ordered By: Cecile Perez Diet: Regular diet Activity on Discharge: As tolerated Stand Alone Forms: Patient Portal Discharge page, Community Support Care Plan Goals: 1. Maintain mood 2. No SI/HI 3. Harm Reduction- narcan given on discharge Health Concerns: Follow up with PCP Plan of Treatment: 1. Take medication as prescribed 2. Go to nearest ED or call 911 in event of emergency Assessment: Pt with bright affect. No SI/HI. No VH/AH. Future oriented. Sleeping and eating well. No signs of aggression towards self or others. Discharge Date/Time: 03/11/22 11:21
[2022-03-11] MEDS: Naloxone HCl Nasal TAKE HOME 4 MG SPRAY NOSTRILALT (11:25)
--- NOTE | 2022-03-11 11:27 | PC.NURSE ---
Cam is A & Ox4. Denies SI/HI/AH/VH. Patient denies anxiety or depression. Future oriented. Denies acute physical complaints.
== END 2022-03-11 11:21 | disposition home health service (06) | DRG 751 ==
LOC: HO.ED 03-01 11:22 → HO.PADLT16 03-01 16:04
PROVIDERS: Physician Assistant; Psychiatry & Neurology Psychiatry; Social Worker; Admitting Provider Psychiatry & Neurology Psychiatry; Emergency Provider Emergency Medicine Emergency Medical Services; PCP Nurse Practitioner Family; Visit Provider Psychiatry & Neurology Psychiatry
DX: F33.2 Major depressive disorder, recurrent severe without psychotic features (principal); R45.851 Suicidal ideations; Z91.14 Patient's other noncompliance with medication regimen; F17.290 Nicotine dependence, other tobacco product, uncomplicated; F11.20 Opioid dependence, uncomplicated; F43.12 Post-traumatic stress disorder, chronic; F10.20 Alcohol dependence, uncomplicated; Z20.822 Contact with and (suspected) exposure to COVID-19; Z71.6 Tobacco abuse counseling; Z56.0 Unemployment, unspecified; Z79.899 Other long term (current) drug therapy
CPT/HCPCS: 36415; 70450; 71045; 72100; 80048; 80076; 80143; 80179; 80307; 81003; 82077; 83605; 83690; 83735; 84484; 85025; 85610; 87635; 90792; 93005; 99285

== ENCOUNTER 2022-04-17 05:12 | Inpatient (IN) | payer MEDICAID, SELFPAY ==
[2022-04-17] VITALS (8 sets, daily range): BP systolic 122–159; BP diastolic 57–77; PULSE 72–89; RESP 14–22; TEMP 36.1–36.9; O2SAT 94–98; BMI 29.0
--- NOTE | 2022-04-17 05:32 | ECG_ITS ---
Test Reason : OVERDOSE Blood Pressure : / mmHG Vent. Rate : 086 BPM Atrial Rate : 086 BPM P-R Int : 146 ms QRS Dur : 090 ms QT Int : 406 ms P-R-T Axes : 054 020 042 degrees QTc Int : 485 ms Normal sinus rhythm RSR' or QR pattern in V1 suggests right ventricular conduction delay Otherwise normal ECG When compared with ECG of 28-FEB-2022 16:08, No significant change was found Referred By: Alison Roy Electronically Signed By:JESSICA PICKERING MD
--- NOTE | 2022-04-17 05:36 | ED.PSYCH ---
HPI - Psych General Chief Complaint: Psychiatric Symptoms Stated Complaint: SI WITH PLAN Time Seen by Provider: 04/17/22 05:25 Source: patient and EMS Mode of arrival: EMS Limitations: no limitations History of Present Illness HPI Narrative: patient comes to the emergency room complaining of suicidal attempt. Patient relapsed drinking alcohol approximately 1 month ago, since then he has been drinking alcohol daily. Today, patient states that he had extra money, spending crack cocaine. Patient tried overdosing using an unspecified amount of Vyvanse, gabapentin, bupropion. Additionally, patient drank a large amount of alcohol and smoked crack cocaine. Patient called himself EMS to be brought to the emergency room. Physically, patient feels well, no abdominal pain, no nausea or vomiting , not feeling somnolent. Related Data Previous Rx's Medication Instructions Recorded buprenorphine 8 mg-naloxone 2 mg 2 film sublingual DAILY #0 ea 03/11/22 sublingual film (Suboxone) bupropion HCl 450 mg 24 hr tablet, 450 mg PO DAILY #30 tabs 03/11/22 extended release cyclobenzaprine 10 mg tablet 10 mg PO TID PRN muscle spasm #90 03/11/22 tabs diphenhydramine-zinc acetate 2 1 appl topical BID PRN rosacea #28 03/11/22 %-0.1 % topical cream (Banophen grams Anti-Itch) doxepin 50 mg capsule 50 mg PO BEDTIME PRN sleep #30 caps 03/11/22 folic acid 1 mg tablet 1 mg PO DAILY #30 tabs 03/11/22 gabapentin 800 mg tablet 1 tab PO TID #90 tabs 03/11/22 hydroxyzine HCl 25 mg tablet 25 mg PO Q6H PRN Anxiety #90 tabs 03/11/22 melatonin 3 mg tablet 6 mg PO BEDTIME #60 tabs 03/11/22 metronidazole 0.75 % topical gel 1 appl topical BID #45 grams 03/11/22 multivitamin (Daily-Tony tablet) 1 tab PO DAILY #30 tabs 03/11/22 naproxen 250 mg tablet 250 mg PO BID PRN hip pain #60 tabs 03/11/22 nicotine 21 mg/24 hr daily 21 mg transdermal DAILY #30 ea 03/11/22 transdermal patch polyethylene glycol 3350 17 gram 17 g PO DAILY PRN Constipation #30 03/11/22 oral powder packet ea prazosin 1 mg capsule 2 mg PO BEDTIME #60 caps 03/11/22 pyridoxine (vitamin B6) 50 mg 50 mg PO DAILY #30 tabs 03/11/22 tablet sennosides 8.6 mg-docusate sodium 2 tab PO BEDTIME #60 tabs 03/11/22 50 mg tablet (Senna Plus) temazepam 15 mg capsule 15 mg PO BEDTIME #30 caps 03/11/22 thiamine mononitrate (vit B1) 100 50 mg PO DAILY #30 tabs 03/11/22 mg tablet Allergies Allergy/AdvReac Type Severity Reaction Status Date / Time phenobarbital AdvReac Vomiting Verified 11/12/21 15:48 Review of Systems Review of Systems: Constitutional : No Weight loss, No Fever, No Chills, No Night Sweats, No Fatigue, No Malaise ENT/Mouth : No Hearing loss, No Ear Pain, No Nasal Congestion, No Sinus Pain, No Hoarseness, No sore throat, No Rhinorrhea, No Swallowing Difficulty Eyes: No Eye Pain, No Swelling, No Redness, No Foreign Body, No Discharge, No Vision Changes Cardiovascular : No Chest Pain, No SOB, No Dyspnea on Exertion, No Orthopnea, No Edema, No Palpitations Respiratory : No Cough, No Sputum, No Wheezing, No Smoke Exposure, No Dyspnea Gastrointestinal : No Nausea, No Vomiting, No Diarrhea, No Constipation, No abdominal Pain, No Hematochezia, No Melena Genitourinary : no irregular bleeding, No Dysuria, No Urinary Frequency, No Hematuria, No Urinary Incontinence, No Urgency, No Flank Pain, No Urinary Flow Changes, No Hesitancy Musculoskeletal : Complaining of chronic bilateral hip pain, needs hip replacement already addressed by Orthopedics per patient, No Myalgias, No Joint Swelling Skin : No Skin Lesions, No rash Neuro : No Weakness, No Numbness, No Paresthesias, No Loss of Consciousness, No Dizziness, No Headache Psych : complaining of anxiety, depression, complaining of suicide attempt, no homicidal ideation Heme/Lymph: No Bruising, No Bleeding,No Lymphadenopathy Endocrine : No Polyuria, No Polydipsia, No Temperature Intolerance PMFSH Past Medical History Medical History Alcohol dependence Alcohol use disorder Anxiety Chronic post-traumatic stress disorder (PTSD) Depression EtOH dependence Hepatitis C antibody positive in blood MDD (major depressive disorder), recurrent episode, severe Surgical History History of mandibular surgery Family History Family History Mother Diabetes mellitus Father Leukemia Social History Social History Household Members: Other Household Members Other:: [employer] [address] [facility] Housing: Other Housing Other:: [employer] [address] [facility] Do you presently have visiting nurse or other home services: No Unable to assess alcohol history related to: Unknown Alcohol intake: current Alcohol intake frequency: a few times a week Alcohol type: beer and hard liquor Patient Tobacco Use Status: Current everyday Tobacco user Tobacco use type: Smokeless Tobacco Cigarette Packs Per Day: 0.5 Cigarettes Per Day: 20 Years Smoked: 10+ Smoked in Last 30 Days: Yes e-Cigarette/Vaping Use: Currently Using Second Hand Smoke Exposure: No Use of substances other than those prescribed or required for medical reasons: Yes Substance Use Type: Crack/Cocaine Advance Directives: No service: No Current occupational status: unemployed Sexual orientation: Decline to Answer Physical Exam Vital Signs: Vital Signs: Last Vital Signs Temp 97.5 F 04/17/22 05:31 Pulse 88 04/17/22 05:31 Resp 20 04/17/22 05:31 BP 151/76 H 04/17/22 05:31 Pulse Ox 96 04/17/22 05:31 O2 Del Method 04/17/22 05:31 BMI result Body Mass Index 29.0 Const: Other: Appearance: Alert. Oriented X3. No acute distress. Eyes: Pupils equal, round and reactive to light. ENT: Pharynx normal. Neck: Normal inspection. Neck supple. No lymph nodes noted. No crepitus CVS: Normal heart rate and rhythm. Pulses normal. Normal S1 and S2 Respiratory: No respiratory distress. Breath sounds normal. No Wheezing. No rales Abdomen: Soft and nontender. No rigidity. No distention. Skin: Skin warm and dry. Normal skin color. Normal skin turgor. Extremities: No lower extremity edema. No Lacerations. No Rash Neuro: Oriented X 3. No motor deficit. No sensory deficit. Moving all extremities. No slurred speech. CN 2 through 12 grossly intact Psych: calm, cooperative, normal affect Course Course Course Narrative: patient ingested an unspecified amount of Vyvanse, gabapentin and bupropion Approximately 45 minutes ago. Patient will be given a PO charcoal. poison control will be contacted. Labs and EKG pending patient is on a Section 12. Once patient is medically cleared, he will need to be seen by [facility]. poison Control called. They recommend to recheck labs in 4 hours including acetaminophen and salicylic acid. Patient will need large amount of benzos to prevent seizures. They recommended against charcoal unless the patient is intubated. However, before poison Control called back, patient already had a dose of charcoal. Patient is awake, alert and oriented x3, asymptomatic, patient already received Ativan 2 mg p.o. it is likely that patient will have to be admitted patient's EKG shows sinus rhythm, prolonged QTC at 485, no ST segment depressions or elevations, no T-wave inversions. Patient was given 1 dose of IV magnesium all of patient's labs are pending, labs to be rechecked 10:00 06:50: Patient is awake alert and oriented x4, no acute distress, asymptomatic, blood pressure in the 150 systolic, heart rate in the 80s, saturating 97% on room air. sign out give, to Dr. Phillip. Medications Administered Discontinued Medications Generic Name Dose Route Start Last Admin Trade Name Freq PRN Reason Stop Dose Admin Charcoal 50 gm 04/17/22 05:31 04/17/22 05:40 Activated Charcoal 50 Gm/240 Ml Oral.Susp PO 04/17/22 05:32 50 gm ONCE ONE Administration MDM - Psych Lab Data Result diagrams: 04/17/22 06:25 04/17/22 06:25 Labs: Lab Results 04/17/22 04/17/22 04/17/22 Range/Units 06:25 06:25 06:25 WBC 12.5 H (4.8-10.8) X10*3/uL RBC 4.48 L (4.60-5.80) X10*6/uL Hgb 13.9 L (14.0-18.0) g/dl Hct 39.2 L (42.0-52.0) % MCV 87.5 (80.0-98.0) fL MCH 31.0 (27.0-33.0) pg MCHC 35.5 (31.0-36.0) g/dl RDW 12.9 (11.0-16.0) % Plt Count 231 (160-400) X10*3/uL MPV 10.0 (9.4-12.4) fL Immature Gran % (Auto) 0.4 (0.0-0.4) % Neut % (Auto) 82.5 H (45-73) % Lymph % (Auto) 9.3 L (20-40) % Sevier % (Auto) 7.4 (2-11) % Eos % (Auto) 0.1 (0-4) % Baso % (Auto) 0.3 (0-2) % Lymph # (Auto) 1.2 (1.2-4.9) X10*3/uL Sevier # (Auto) 0.9 (0.1-1.2) X10*3/uL Eos # (Auto) 0.0 (0.0-0.4) X10*3/uL Baso # (Auto) 0.0 (0.0-0.2) X10*3/uL Abs Immat Gran (auto) 0.05 H (0.00-0.03) X10*3/uL Absolute Neuts (auto) 10.3 H (2.0-8.3) x10*3/uL Absolute Nucleated RBC 0.000 (0.0-0.012) X10*3/uL Nucleated RBC % (auto) 0.0 (0.0-0.2) /100WBC PT 12.8 (10.0-13.1) SEC INR 1.1 (0.9-1.1) VBG pH (7.32-7.43) VBG pCO2 mmHg VBG pO2 mmHg VBG HCO3 (22-26) mmol/L VBG O2 Saturation % VBG Base Excess mmol/L Sodium 137 (135-145) mmol/L Potassium 4.1 (3.3-5.1) mmol/L Chloride 102 (96-108) mmol/L Carbon Dioxide 19 L (22-29) mmol/L Anion Gap 20 (12-20) BUN 21 H (9-16) mg/dL Creatinine 0.93 (0.5-1.4) mg/dL Estim Creat Clear Calc 116.7 Estimated GFR > 60 Random Glucose 84 (60-115) mg/dL Calcium 9.2 (8.4-10.2) mg/dL Magnesium 2.3 (1.6-2.6) mg/dL Total Bilirubin 1.2 H (0.0-1.0) mg/dL Direct Bilirubin 0.4 (0.0-0.5) mg/dL AST 157 H (5-37) U/L ALT 64 H (0-40) U/L Alkaline Phosphatase 75 (39-117) U/L Total Protein 7.1 (6.5-8.0) g/dL Albumin 4.7 (3.5-5.0) g/dL Lipase 5 L (8-78) U/L Salicylates < 5.0 L (15-30) mg/dL Acetaminophen < 1 (<30) mcg/mL Ethyl Alcohol < 10 mg/dL 04/17/22 Range/Units 06:29 WBC (4.8-10.8) X10*3/uL RBC (4.60-5.80) X10*6/uL Hgb (14.0-18.0) g/dl Hct (42.0-52.0) % MCV (80.0-98.0) fL MCH (27.0-33.0) pg MCHC (31.0-36.0) g/dl RDW (11.0-16.0) % Plt Count (160-400) X10*3/uL MPV (9.4-12.4) fL Immature Gran % (Auto) (0.0-0.4) % Neut % (Auto) (45-73) % Lymph % (Auto) (20-40) % Sevier % (Auto) (2-11) % Eos % (Auto) (0-4) % Baso % (Auto) (0-2) % Lymph # (Auto) (1.2-4.9) X10*3/uL Sevier # (Auto) (0.1-1.2) X10*3/uL Eos # (Auto) (0.0-0.4) X10*3/uL Baso # (Auto) (0.0-0.2) X10*3/uL Abs Immat Gran (auto) (0.00-0.03) X10*3/uL Absolute Neuts (auto) (2.0-8.3) x10*3/uL Absolute Nucleated RBC (0.0-0.012) X10*3/uL Nucleated RBC % (auto) (0.0-0.2) /100WBC PT (10.0-13.1) SEC INR (0.9-1.1) VBG pH 7.37 (7.32-7.43) VBG pCO2 35 mmHg VBG pO2 50 mmHg VBG HCO3 20 L (22-26) mmol/L VBG O2 Saturation 77.0 % VBG Base Excess -3.6 mmol/L Sodium (135-145) mmol/L Potassium (3.3-5.1) mmol/L Chloride (96-108) mmol/L Carbon Dioxide (22-29) mmol/L Anion Gap (12-20) BUN (9-16) mg/dL Creatinine (0.5-1.4) mg/dL Estim Creat Clear Calc Estimated GFR Random Glucose (60-115) mg/dL Calcium (8.4-10.2) mg/dL Magnesium (1.6-2.6) mg/dL Total Bilirubin (0.0-1.0) mg/dL Direct Bilirubin (0.0-0.5) mg/dL AST (5-37) U/L ALT (0-40) U/L Alkaline Phosphatase (39-117) U/L Total Protein (6.5-8.0) g/dL Albumin (3.5-5.0) g/dL Lipase (8-78) U/L Salicylates (15-30) mg/dL Acetaminophen (<30) mcg/mL Ethyl Alcohol mg/dL Critical Care Time Critical Care Time Critical Care Time: Yes Total Critical Care Time: 45 Attestation: I have personally provided critical care time. Time includes review of lab data, radiology results, discussion with consultants, and monitoring for potential decompensation. Intervention performed as documented. Discharge Plan Discharge Clinical Impression: Suicide attempt Patient Disposition: Still a Patient Prescriptions: No Action cyclobenzaprine 10 mg Tablet 10 mg PO TID PRN (Reason: muscle spasm) Qty: 90 0RF prazosin 1 mg Capsule 2 mg PO BEDTIME Qty: 60 0RF Protocol: Hold for SBP< HOLD for SBP < : 90 nicotine 21 mg/24 hr Patch 24 Hour 21 mg transdermal DAILY Qty: 30 0RF buprenorphine-naloxone [Suboxone] 8-2 mg Film 2 film sublingual DAILY Qty: 0 0RF bupropion HCl 450 mg tablet extended release 24 hr 450 mg PO DAILY Qty: 30 0RF doxepin 50 mg capsule 50 mg PO BEDTIME PRN (Reason: sleep) Qty: 30 0RF multivitamin [Daily-Tony] Tablet 1 tab PO DAILY Qty: 30 0RF polyethylene glycol 3350 17 gram Powder In Packet 17 g PO DAILY PRN (Reason: Constipation) Qty: 30 0RF sennosides-docusate sodium [Senna Plus] 8.6-50 mg Tablet 2 tab PO BEDTIME Qty: 60 0RF naproxen 250 mg Tablet 250 mg PO BID PRN (Reason: hip pain) Qty: 60 0RF melatonin 3 mg Tablet 6 mg PO BEDTIME Qty: 60 0RF Banophen Anti-Itch 2-0.1 % Cream 1 appl topical BID PRN (Reason: rosacea) Qty: 28 0RF Protocol: Apply to: Apply to: face temazepam 15 mg Capsule 15 mg PO BEDTIME Qty: 30 0RF pyridoxine (vitamin B6) 50 mg Tablet 50 mg PO DAILY Qty: 30 0RF folic acid 1 mg Tablet 1 mg PO DAILY Qty: 30 0RF hydroxyzine HCl 25 mg Tablet 25 mg PO Q6H PRN (Reason: Anxiety) Qty: 90 0RF metronidazole 0.75 % Gel 1 appl topical BID Qty: 45 0RF thiamine mononitrate (vit B1) 100 mg Tablet 50 mg PO DAILY Qty: 30 0RF gabapentin 800 mg tablet 1 tab PO TID Qty: 90 0RF Interventions: Jack-Suicide Risk Severity Scale Last Done: 04/17/22 05:31
[2022-04-17] MEDS: Activated charcoaL 50 GM/240 ML ORAL.SUSP PO (05:40)
[2022-04-17 06:31] LABS: MANUAL DIFF FLAG NO
[2022-04-17 06:35] LABS: Venous Blood Gas Refer to POC result
[2022-04-17 06:35] LABS: VBG Base Excess -3.6 mmol/L; VBG HCO3 20 mmol/L (22-26); VBG pCO2 35 mmHg; VBG pH 7.37 (7.32-7.43); VBG pO2 50 mmHg
[2022-04-17 06:36] LABS: Basophils Percent Auto 0.3 % (0-2); Eosinophils Percent Auto 0.1 % (0-4); Hematocrit 39.2 % (42.0-52.0); Hemoglobin 13.9 g/dl (14.0-18.0); Imm Gran Abs Auto 0.05 X10*3/uL (0.00-0.03); Imm Gran Pct Auto 0.4 % (0.0-0.4); Lymphocytes Absolute Auto 1.2 X10*3/uL (1.2-4.9); Lymphocytes Percent Auto 9.3 % (20-40); Mean Corpuscular HGB Conc 35.5 g/dl (31.0-36.0); Mean Corpuscular Volume 87.5 fL (80.0-98.0); Monocytes Absolute Auto 0.9 X10*3/uL (0.1-1.2); Monocytes Percent Auto 7.4 % (2-11); Neutrophils Absolute Auto 10.3 x10*3/uL (2.0-8.3); Neutrophils Percent Auto 82.5 % (45-73); Platelet Count 231 X10*3/uL (160-400); Red Blood Count 4.48 X10*6/uL (4.60-5.80); Red Cell Distribution Width 12.9 % (11.0-16.0); White Blood Count 12.5 X10*3/uL (4.8-10.8)
[2022-04-17 06:37] LABS: INTERNATIONAL NORM RATIO 1.1 (0.9-1.1); Prothrombin Time 12.8 SEC (10.0-13.1)
--- OUTSIDE RECORDS SUMMARY | 2022-04-17 06:42 | XMS_ITS | Continuity of Care Document ---
:1970 Author Organization [facility] Address [address] [place] [address]- Care Team Providers Name Role Phone Dionicio OLSEN, Caitlyn Primary Care Physician Encounter [facility] Date(s): 03/17/22 - 03/27/[address] [id number] Encounter Diagnosis Attempted suicide (Final) - 03/17/22 Attempted suicide (Final) - 03/20/22 Discharge Disposition: Transfer to [facility] Attending Physician: Joann Caro MD Admitting Physician: Johnson George MD Referring Physician: Not on Staff, Referring [...] : awaiting pharmacy to bring up Medications amLODIPine 10 mg oral tablet 10 mg, Tablet, By Mouth, 03/27/22 9:00:00 EDT Start Date: 03/27/22 Stop Date: 03/27/22 Status: CompletedamLODIPine 10 mg oral tablet 10 mg, 1, tablet, By Mouth, Daily, Refills 0, Maintenance, 03/27/22 13:52:00 EDT, Partial fill upon patient request if the prescription is for a schedule II opioid drug. Start Date: 03/27/22 Status: OrderedAtivan 2 mg oral tablet 1 tablet = 2 mg, By Mouth, 3 times a day, PRN Anxiety, 0 Refills, Maintenance, 03/27/22 13:52:00 EDT, Tablet, Partial fill upon patient request if the prescription is for a schedule II opioid drug. Start Date: 03/27/22 Status: Orderedbuprenorphine-naloxone 8 mg-2 mg sublingual film Sublingual, 2 times a day, 0 Refills, Maintenance, 03/27/22 13:51:00 EDT, Film, Partial fill upon patient request if the prescription is for a schedule II opioid drug. Start Date: 03/27/22 Status: Orderedfolic acid 1 mg oral tablet 1 mg, 1, tablet, By Mouth, Daily, Refills 0, Maintenance, 03/27/22 13:52:00 EDT, Partial fill upon patient request if the prescription is for a schedule II opioid drug. Start Date: 03/27/22 Status: Orderedgabapentin 400 mg oral capsule 800 mg, Capsule, By Mouth, 03/27/22 9:00:00 EDT Start Date: 03/27/22 Stop Date: 03/27/22 Status: Completedgabapentin 400 mg oral capsule 800 mg, Capsule, By Mouth, 03/27/22 15:00:00 EDT Start Date: 03/27/22 Stop Date: 03/27/22 Status: Completedgabapentin 800 mg oral tablet 1 tablet = 800 mg, By Mouth, 3 times a day, # 90 tablet, 0 Refills, Maintenance, 08/02/21 16:43:00 EST, Tablet, [facility], Partial fill upon patient request if the prescription is for a schedule II opioid drug., 180, cm, 08/02/21 10:39:0... Start Date: 08/02/21 Status: OrderedHydrOXYzine 0 Refills, Maintenance, 01/02/22 14:19:00 EDT, Partial fill upon patient request if the prescriptionis for a schedule II opioid drug. Start Date: 01/02/22 Status: OrderedMelatonin Daily at bedtime, 0 Refills, Maintenance, 01/02/22 14:19:00 EDT, Partial fill upon patient request if the prescription is for a schedule II opioid drug. Start Date: 01/02/22 Status: OrderedMultivit Therapeutic/Minerals Tablet 1 tablet, By Mouth, Daily, 0 Refills, Maintenance, 03/27/22 13:52:00 EDT, Tablet, Partial fill upon patient request if the prescription is for a schedule II opioid drug. Start Date: 03/27/22 Status: Orderednaproxen 250 mg oral tablet 250 mg, 1, tablet, By Mouth, 2 times a day, PRN, Refills 0, Maintenance, Pain , Moderate, 03/27/22 13:52:00 EDT, Partial fill upon patient request if the prescription is for a schedule II opioid drug. Start Date: 03/27/22 Status: OrderedNicotine = 21 mg, Topically, Daily, 0 Refills, Maintenance, 03/27/22 13:52:00 EDT, Patch, Partial fill upon patient request if the prescription is for a schedule II opioid drug. Start Date: 03/27/22 Status: OrderedNicotine Gum 2 mg, Chew, Every hour, PRN, Nicotine Cravings, Refills 0, Maintenance, Other, 03/27/22 13:52:00 EDT, Partial fill upon patient request if the prescription is for a schedule II opioid drug. Start Date: 03/27/22 Status: Orderedprazosin 1 mg oral capsule 2 mg, Capsule, By Mouth, 03/26/22 21:00:00 EDT Start Date: 03/26/22 Stop Date: 03/26/22 Status: Completedprazosin 2 mg oral capsule 1 capsule = 2 mg, By Mouth, Daily at bedtime, # 30 capsule, 0 Refills, Maintenance, 08/02/21 16:44:00 EST, Capsule, [facility], Partial fill upon patient request if the prescription is fora schedule II opioid drug., 180, cm, 08/02/21 10:... Start Date: 08/02/21 Stop Date: 09/01/21 Status: OrderedPyridoxine Tablet 50 mg, By Mouth, Daily, Refills 0, Maintenance, 03/27/22 13:52:00 EDT, Partial fill upon patient request if the prescription is for a schedule II opioid drug. Start Date: 03/27/22 Status: Orderedthiamine 100 mg oral tablet 100 mg, 1, tablet, By Mouth, 2 times a day, Refills 0, Maintenance, 03/27/22 13:52:00 EDT, Partial fill upon patient request if the prescription is for a schedule II opioid drug. Start Date: 03/27/22 Status: OrderedTylenol 8 HR Arthritis Pain = 1,300 mg, By Mouth, Every 8 hours, 0 Refills, Maintenance, 01/02/22 14:22:00 EDT, Partial fill upon patient request if the prescription is for a schedule II opioid drug. Start Date: 01/02/22 Status: Ordered Problem List Condition Confirmation Course Effective Dates Status Health I nformant Status Alcohol abuse Confirmed Active Closed fracture of Confirmed Active mandible Polysubstance abuse Confirmed Active Vital Signs Most recent to oldest 1 2 3 [Reference Range]: Height 185.42 cm 185.42 cm 185.42 cm (03/25/22 7:27 AM) (03/22/22 7:26 AM) (03/21/22 5:21 AM) Weight 100 kg 98.6 kg (03/19/22 1:57 PM) (03/18/22 3:36 PM) Oxygen Saturation [94-100 %] 98 % 99 % 99 % (03/27/22 8:00 AM) (03/26/22 8:00 PM) (03/26/22 3:0 0 PM) Pulse Rate [55-90 bpm] 75 bpm 81 bpm 73 bpm (03/27/22 8:00 AM) (03/26/22 8:00 PM) (03/26/22 3:0 0 PM) Body Mass Index [18.5-24.99 29.09 kg/m2 28.81 kg/m2 kg/m2] *H* *H* (03/19/22 1:57 PM) (03/18/22 3:36 PM) Blood Pressure [90-138/55-84 126/75 mm Hg 126/75 mm Hg 134 /91 mm Hg mm Hg] (03/27/22 8:57 AM) (03/27/22 8:00 AM) (03/26/22 9:1 9 PM) Respiratory Rate [16-30 16 br/min 16 br/min 18 br/mi n br/min] (03/27/22 2:31 PM) (03/27/22 8:57 AM) (03/27/22 8:0 0 AM) Temperature [96.8-100.4 97.6 DegF 97.9 DegF 97.9 Deg F DegF] (03/27/22 8:00 AM) (03/26/22 8:00 PM) (03/26/22 3:0 0 PM) Liters per Minute 2 L/min 2 L/min (03/17/22 5:55 AM) (03/17/22 4:26 AM) Mode of Delivery (Oxygen) Room air Room air Room a ir (03/27/22 8:00 AM) (03/26/22 8:00 PM) (03/26/22 3:0 0 PM) Blood pressure sites Arm, right Arm, left Arm, left (03/27/22 8:00 AM) (03/26/22 8:00 PM) (03/26/22 3:0 0 PM) Temperature Route Axillary Oral Oral (03/27/22 8:00 AM) (03/26/22 8:00 PM) (03/26/22 3:0 0 PM) Dry Weight 98.6 kg (03/18/22 3:36 PM) Weight Obtained Via Bed scale (03/19/22 1:57 PM) Social History Social History Type Response Smoking Status Current every day smoker; To bacco user in household: No entered on: 07/26/16 Sex Patient Care team information PersonnelName: Caitlyn Greenberg NP Address: Address: [address] [place] [address]
[2022-04-17 06:48] LABS: Acetaminophen LAB < 1 mcg/mL (<30); Alanine Aminotransferase 64 U/L (0-40); Albumin Level 4.7 g/dL (3.5-5.0); Alkaline Phosphatase 75 U/L (39-117); Anion Gap 20 (12-20); Aspartate Amino Transferase 157 U/L (5-37); Bilirubin Direct 0.4 mg/dL (0.0-0.5); Bilirubin Total 1.2 mg/dL (0.0-1.0); Blood Urea Nitrogen 21 mg/dL (9-16); Calcium 9.2 mg/dL (8.4-10.2); Carbon Dioxide 19 mmol/L (22-29); Chloride 102 mmol/L (96-108); Creatinine Clr Calc Pharmacy 116.7; Estimated Glomerular Filt Rate > 60; Ethanol < 10 mg/dL; Glucose Random 84 mg/dL (60-115); Lipase 5 U/L (8-78); Magnesium 2.3 mg/dL (1.6-2.6); Potassium 4.1 mmol/L (3.3-5.1); Salicylate < 5.0 mg/dL (15-30); Sodium 137 mmol/L (135-145); Total Protein 7.1 g/dL (6.5-8.0)
[2022-04-17 06:51] LABS: Appearance Urine Clear; Color Urine Yellow; Glucose Urine UA Negative (Negative); Leukocyte Esterase Urine Negative (Negative); Nitrite Urine Negative (Negative); Specific Gravity - Urine 1.025 (1.005-1.025); UMIC TRIGGER UACC YES; Urine Blood Trace (Negative); Urine Ketones 40 mg/dL (Negative); Urine Protein Negative (Neg-Trace)
[2022-04-17 06:53] LABS: Troponin-I High Sensitivity 4.9 ng/L (<3.5-35.0)
[2022-04-17 06:57] LABS: Bacteria Urine None Seen (None Seen); Hyaline Casts Urine 0-2 /LPF (0-2); RBC Urine 0-2 /HPF (0-2); Squamous Epithelial Cell Urine 0-2 /HPF (0-2); WBC Urine 0-5 /HPF (0-5)
[2022-04-17 07:01] LABS: IDNOW Serial# 55D5AD1C
[2022-04-17 07:02] LABS: COVID-19 Test Negative (Negative)
[2022-04-17 07:04] LABS: Amphetamine Screen Urine POSITIVE (Not Detect); Barbiturates, Urine Not Detected (Not Detect); Benzodiazepines Screen Urine Not Detected (Not Detect); Cannabinoid Screen Urine Not Detected (Not Detect); Cocaine Screen Urine POSITIVE (Not Detect); Fentanyl, urine Not Detected (Not Detect); Opiate Screen Urine Not Detected (Not Detect); Phencyclidine Screen Urine Not Detected (Not Detect)
[2022-04-17] MEDS: Magnesium Sulfate/D5W 1 GM/100 ML PIGGYBACK IV (07:04)
[2022-04-17] MEDS: LORazepam 1 MG TABLET 2 MG PO ×4 (07:04→20:15)
--- NOTE | 2022-04-17 07:16 | MHC.CARE ---
Smart sheet submitted
--- NOTE | 2022-04-17 08:18 | ECG_ITS ---
Test Reason : PROLONGED QTC Blood Pressure : / mmHG Vent. Rate : 077 BPM Atrial Rate : 077 BPM P-R Int : 144 ms QRS Dur : 096 ms QT Int : 416 ms P-R-T Axes : 051 014 036 degrees QTc Int : 470 ms Normal sinus rhythm RSR' or QR pattern in V1 suggests right ventricular conduction delay Otherwise normal ECG When compared with ECG of 17-APR-2022 05:43, No significant change was found Referred By: Alison Roy Electronically Signed By:JESSICA PICKERING MD
--- NOTE | 2022-04-17 08:20 | PC.NURSE ---
poison control recommended 24 hr cardiac monitoring, sz precautions, repeat ekg, repeat lft,chem, asa and apap at 1000, aware
[2022-04-17] MEDS: Ibuprofen 600 MG TABLET PO (08:30)
[2022-04-17 10:40] LABS: Alanine Aminotransferase 61 U/L (0-40); Albumin Level 4.4 g/dL (3.5-5.0); Alkaline Phosphatase 70 U/L (39-117); Anion Gap 15 (12-20); Aspartate Amino Transferase 143 U/L (5-37); Bilirubin Direct 0.3 mg/dL (0.0-0.5); Bilirubin Total 0.8 mg/dL (0.0-1.0); Blood Urea Nitrogen 17 mg/dL (9-16); Calcium 8.9 mg/dL (8.4-10.2); Carbon Dioxide 24 mmol/L (22-29); Chloride 102 mmol/L (96-108); Creatinine Clr Calc Pharmacy 114.3; Estimated Glomerular Filt Rate > 60; Glucose Random 122 mg/dL (60-115); Potassium 3.6 mmol/L (3.3-5.1); Salicylate < 5.0 mg/dL (15-30); Sodium 137 mmol/L (135-145); Total Protein 6.6 g/dL (6.5-8.0)
[2022-04-17 11:09] LABS: Acetaminophen LAB < 1 mcg/mL (<30)
--- NOTE | 2022-04-17 11:56 | ECG_ITS ---
Test Reason : OVERDOSE/REPEAT Blood Pressure : / mmHG Vent. Rate : 077 BPM Atrial Rate : 077 BPM P-R Int : 142 ms QRS Dur : 094 ms QT Int : 424 ms P-R-T Axes : 059 032 041 degrees QTc Int : 479 ms Normal sinus rhythm RSR' or QR pattern in V1 suggests right ventricular conduction delay Otherwise normal ECG When compared with ECG of 17-APR-2022 08:18, No significant change was found Referred By: Generic ED Physician Electronically Signed By:JESSICA PICKERING MD
--- NOTE | 2022-04-17 11:56 | PHA.MEDREC ---
Pharmacy Consult ? Medication Reconciliation Pharmacy has completed the medication reconciliation. Patient reported all medications. patient reported gabapentin was increased from TID to QID. Mary Mcallister, PharmD
--- NOTE | 2022-04-17 12:10 | PC.NURSE ---
QT INTERVAL MD SRIDHAR RAZO NOTIFIED OF POISON CONTROL RECOMMENDATIONS FOR REPEAT EKGS.
--- NOTE | 2022-04-17 12:44 | PC.NURSE ---
poison control recommended ekg now and at 1600 , if qrs goes over 100 conside bicarb challenge , dr freeman informed, qrs under 100 at this time, repeat at 1600 ordered
--- NOTE | 2022-04-17 13:42 | PM.IMHP ---
History of Present Illness Date of Service: 04/17/22 Attending physician on admission: Les [facility] Chief Complaint: Suicide Attempt Pt is a 51-year-old male with a PMH significant for alcohol use disorder with withdrawal, depression, polysubstance abuse, suicide attempts, and PTSD, who presents to the ED after binging on alcohol and crack cocaine and intentionally overdosing on his home meds this morning. Pt state that he has been drinking heavily for the past month (at least a fifth and 6-pack daily) which increases his depression. Yesterday he notes he had some extra money so he purchased and smoked a large amount of crack cocaine, while also consuming over a fifth of alcohol. Reports that last drink was 15-20 hours ago. Early this morning pt says he [place] himself in an alley by himself and suddenly wanted to end it all so he took all of the home meds he had on him: Vyvanse, gabapentin, and buproprion. He was unable to say exactly how many pills he took of each. He then immediately regretted his decision and called 911. Pt reports ALBRIGHT, nausea, general pruritus, anxiety, and tremors. Notes one episode of palpitations while on the stretcher entering the hospital, and has been alternating between feeling hot and cold. Denies chest pain or pressure, diaphoresis, SOB, or difficulty breathing. No abdominal pain. No verbal or auditory hallucinations or thoughts of harming others. Pt reports a history of alcohol withdrawal with hallucinations and seizures, and that he is allergic to phenobarbital. Of note, pt was admitted to the hospital for similar complaints three times last year. In the ED pt was given three doses of Lorazepam 2mg PO, Mg 1g, thiamine 50mg, and one dose of activated charcoal. Poison control was consulted. Labs significant for WBC 12.5, AST 143, ALT 61. Tested positive for amphetamines and cocaine. EKG notable for QTc elevated at 485; two subsequent EKGs normal sinus rhythm and QTc WNL at 470 and 479. Pt will be admitted to telemetry to monitor for alcohol withdrawal and suicide prevention. Pt will be transferred to psychiatry once medically cleared. Review of Systems Review of Systems: Pt complains of nausea but no vomiting. Reports anxiety. Notes tremors. No hallucinations. No chest pain/pressure, SOB, or difficulty breathing. Yes all other systems are reviewed and are negative PMFSH Medical History Alcohol dependence Alcohol use disorder Anxiety Chronic post-traumatic stress disorder (PTSD) Depression EtOH dependence Hepatitis C antibody positive in blood MDD (major depressive disorder), recurrent episode, severe Family History Mother Diabetes mellitus Father Leukemia Surgical History History of mandibular surgery Social History Household Members: Other Household Members Other:: [facility] Housing: Other Housing Other:: [facility] Do you presently have visiting nurse or other home services: No Unable to assess alcohol history related to: Unknown Alcohol intake: current Alcohol intake frequency: a few times a week Alcohol type: beer and hard liquor Patient Tobacco Use Status: Current everyday Tobacco user Tobacco use type: Smokeless Tobacco Cigarette Packs Per Day: 0.5 Cigarettes Per Day: 20 Years Smoked: 10+ Smoked in Last 30 Days: Yes e-Cigarette/Vaping Use: Currently Using Second Hand Smoke Exposure: No Use of substances other than those prescribed or required for medical reasons: Yes Substance Use Type: Crack/Cocaine Advance Directives: No service: No Current occupational status: unemployed Sexual orientation: Decline to Answer Meds Allergies Allergy/AdvReac Type Severity Reaction Status Date / Time phenobarbital AdvReac Vomiting Verified 11/12/21 15:48 Active Medications: Current Medications Acetaminophen (Acetaminophen 325 Mg Tablet) 650 mg PO Q6H PRN PRN Reason: Pain, Mild (Pain Scale 1-3) Buprenorphine/Naloxone (Buprenorphine/Naloxone 8/2 Mg Film) 2 film SUBLINGUAL DAILY FOUZIA Cyclobenzaprine HCl (Cyclobenzaprine Hcl 10 Mg Tablet) 10 mg PO TID PRN PRN Reason: muscle spasm Enoxaparin Sodium (Enoxaparin Sodium 40 Mg/0.4 Ml Syringe) 40 mg SUBCUT Q24H FOUZIA Folic Acid (Folic Acid 1 Mg Tablet) 1 mg PO DAILY FOU[facility] Hydroxyzine HCl (Hydroxyzine Hcl 25 Mg Tablet) 25 mg PO Q6H PRN PRN Reason: Anxiety Lorazepam (Lorazepam 1 Mg Tablet) 1 mg PO Q4H PRN PRN Reason: Anxiety Melatonin (Melatonin 3 Mg Tablet) 6 mg PO BEDTIME [facility] Metronidazole (Metronidazole 0.75 % Gel 45 Gm Tube) 1 appl TOPICAL BID FOUZIA Multivitamins/Vitamin C (Multivitamin Tablet) 1 tab PO DAILY [facility] Nicotine (Nicotine 21 Mg Patch.Td24) 21 mg TRANSDERMA DAILY [facility] Ondansetron HCl (Ondansetron Hcl 4 Mg/2 Ml Vial) 4 mg IVPUSH Q8H PRN PRN Reason: Nausea and Vomiting Polyethylene Glycol (Polyethylene Glycol 3350 17 Gm Powd.Pack) 17 gm PO DAILY PRN PRN Reason: Constipation Prazosin HCl (Prazosin Hcl 1 Mg Capsule) 2 mg PO BEDTIME FOUZIA; Protocol Pyridoxine HCl (Pyridoxine Hcl (Vitamin B6) 50 Mg Tablet) 50 mg PO DAILY [facility] Senna/Docusate Sodium (Sennosides/Docusate Sodium Tablet) 2 tab PO BEDTIME PRN PRN Reason: Constipation Sodium Chloride (0.9 % Sodium Chloride Flush 3 Ml Syringe) 3 ml IVFLUSH QSHIFT [facility] Thiamine HCl (Thiamine Hcl 100 Mg Tablet) 50 mg PO DAILY [facility] Home Medications Medication Instructions Recorded Confirmed Last Taken Type bupropion HCl 300 mg 24 hr tablet, 1 tab PO DAILY 04/17/22 04/17/22 04/16/22 History extended release gabapentin 800 mg tablet 1 tab PO QID 04/17/22 04/17/22 04/16/22 History lisdexamfetamine 20 mg capsule 1 cap PO QAM 04/17/22 04/17/22 04/16/22 History (Vtrudy) lorazepam 0.5 mg tablet 1 tab PO BID PRN anxiety 04/17/22 04/17/22 04/16/22 History naproxen 250 mg tablet 250 mg PO BID 04/17/22 04/17/22 04/16/22 History sennosides 8.6 mg-docusate sodium 2 tab PO BEDTIME PRN Constipation 04/17/22 04/17/22 04/16/22 History 50 mg tablet (Senna Plus) Physical Exam Vital Signs and Narrative: Vital Signs: Last Vital Signs Temp 97.4 F 04/17/22 09:06 Pulse 80 04/17/22 13:21 Resp 19 04/17/22 13:21 BP 127/57 L 04/17/22 13:21 Pulse Ox 98 04/17/22 13:21 O2 Del Method 04/17/22 13:21 BMI result Body Mass Index 29.0 Constitutional: Alert, in no acute distress. Mental Status: Oriented to person, place and time. Eyes: Pupils are equal, round, and reactive to light. Ear, Nose, and Throat: Oropharynx clear, mucous membranes moist. Ears and nose without deformities. Trachea midline. Respiratory: Clear to auscultation bilaterally. No wheezing, rales, or rhonchi. Cardiovascular: S1, S2 regular. No murmurs, rubs, or gallops. Gastrointestinal: Abdomen soft, non-tender, non-distended. NOrmal bowel sounds. Neurologic: Cranial nerves II-XI are grossly intact. NO focal neurological deficits. Moves all extremities spontaneously. Skin: No rashes of lesions. Musculoskeletal: No cyanosis or clubbing. Extremities: No edema. Psychiatric: Depressed mood and flat affect. Results Labs CBC and Chem 7: 04/17/22 06:25 04/17/22 10:07 Labs: Laboratory Results - last 24 hr 04/17/22 04/17/22 04/17/22 06:25 06:25 06:25 MCV 87.5 MCH 31.0 MCHC 35.5 RDW 12.9 Plt Count 231 MPV 10.0 Immature Gran % (Auto) 0.4 Neut % (Auto) 82.5 H Lymph % (Auto) 9.3 L [place] % (Auto) 7.4 Eos % (Auto) 0.1 Baso % (Auto) 0.3 Lymph # (Auto) 1.2 [place] # (Auto) 0.9 Eos # (Auto) 0.0 Baso # (Auto) 0.0 Abs Immat Gran (auto) 0.05 H Absolute Neuts (auto) 10.3 H Absolute Nucleated RBC 0.000 Nucleated RBC % (auto) 0.0 PT 12.8 INR 1.1 VBG pH VBG pCO2 VBG pO2 VBG HCO3 VBG O2 Saturation VBG Base Excess Anion Gap 20 Estim Creat Clear Calc 116.7 Estimated GFR > 60 Random Glucose 84 Calcium 9.2 Magnesium 2.3 Total Bilirubin 1.2 H Direct Bilirubin 0.4 AST 157 H ALT 64 H Alkaline Phosphatase 75 Troponin I High Sens Total Protein 7.1 Albumin 4.7 Lipase 5 L Urine Color Urine Appearance Urine pH Ur Specific [place] Urine Protein Urine Glucose (UA) Urine Ketones Urine Blood Urine Nitrite Ur Leukocyte Esterase Urine RBC Urine WBC Ur Squamous Epith Cells Urine Bacteria Hyaline Casts Salicylates < 5.0 L Urine Opiates Screen Urine Fentanyl Screen Acetaminophen < 1 Ur Barbiturates Screen Ur Phencyclidine Scrn Ur Amphetamines Screen U Benzodiazepines Scrn Urine Cocaine Screen U Marijuana (THC) Screen Ethyl Alcohol < 10 COVID-19 (LINK) COVID-19 Clin Com 04/17/22 04/17/22 04/17/22 06:25 06:26 06:26 MCV MCH MCHC RDW Plt Count MPV Immature Gran % (Auto) Neut % (Auto) Lymph % (Auto) [place] % (Auto) Eos % (Auto) Baso % (Auto) Lymph # (Auto) [place] # (Auto) Eos # (Auto) Baso # (Auto) Abs Immat Gran (auto) Absolute Neuts (auto) Absolute Nucleated RBC Nucleated RBC % (auto) PT INR VBG pH VBG pCO2 VBG pO2 VBG HCO3 VBG O2 Saturation VBG Base Excess Anion Gap Estim Creat Clear Calc Estimated GFR Random Glucose Calcium Magnesium Total Bilirubin Direct Bilirubin AST ALT Alkaline Phosphatase Troponin I High Sens 4.9 Total Protein Albumin Lipase Urine Color Yellow Urine Appearance Clear Urine pH 6.0 Ur Specific [place] 1.025 Urine Protein Negative Urine Glucose (UA) Negative Urine Ketones 40 Urine Blood Trace Urine Nitrite Negative Ur Leukocyte Esterase Negative Urine RBC 0-2 Urine WBC 0-5 Ur Squamous Epith Cells 0-2 Urine Bacteria None Seen Hyaline Casts 0-2 Salicylates Urine Opiates Screen Urine Fentanyl Screen Acetaminophen Ur Barbiturates Screen Ur Phencyclidine Scrn Ur Amphetamines Screen U Benzodiazepines Scrn Urine Cocaine Screen U Marijuana (THC) Screen Ethyl Alcohol COVID-19 (LINK) Negative COVID-19 Clin Com See Note 04/17/22 04/17/22 04/17/22 06:26 06:29 10:07 MCV MCH MCHC RDW Plt Count MPV Immature Gran % (Auto) Neut % (Auto) Lymph % (Auto) [place] % (Auto) Eos % (Auto) Baso % (Auto) Lymph # (Auto) [place] # (Auto) Eos # (Auto) Baso # (Auto) Abs Immat Gran (auto) Absolute Neuts (auto) Absolute Nucleated RBC Nucleated RBC % (auto) PT INR VBG pH 7.37 VBG pCO2 35 VBG pO2 50 VBG HCO3 20 L VBG O2 Saturation 77.0 VBG Base Excess -3.6 Anion Gap 15 Estim Creat Clear Calc 114.3 Estimated GFR > 60 Random Glucose 122 H Calcium 8.9 Magnesium Total Bilirubin 0.8 Direct Bilirubin 0.3 AST 143 H ALT 61 H Alkaline Phosphatase 70 Troponin I High Sens Total Protein 6.6 Albumin 4.4 Lipase Urine Color Urine Appearance Urine pH Ur Specific [place] Urine Protein Urine Glucose (UA) Urine Ketones Urine Blood Urine Nitrite Ur Leukocyte Esterase Urine RBC Urine WBC Ur Squamous Epith Cells Urine Bacteria Hyaline Casts Salicylates < 5.0 L Urine Opiates Screen Not Detected Urine Fentanyl Screen Not Detected Acetaminophen < 1 Ur Barbiturates Screen Not Detected Ur Phencyclidine Scrn Not Detected Ur Amphetamines Screen POSITIVE H U Benzodiazepines Scrn Not Detected Urine Cocaine Screen POSITIVE H U Marijuana (THC) Screen Not Detected Ethyl Alcohol COVID-19 (LINK) COVID-19 Clin Com Assessment and Plan (1) Suicide attempt: Status: Acute (2) MDD (major depressive disorder), recurrent episode, severe: Status: Acute (3) Drug overdose: Qualifiers: Encounter type: initial encounter Injury intent: intentional self-harm Qualified Code(s): T50.902A - Poisoning by unspecified drugs, medicaments and biological substances, intentional self-harm, initial encounter Status: Acute (4) Alcohol use disorder: Status: Chronic Plan Pt is a 51-year-old male with a PMH significant for alcohol use disorder with withdrawal, depression, polysubstance abuse, suicide attempts, and PTSD, who presents to the ED after binging on alcohol and crack cocaine and intentionally overdosing on his home meds this morning. Pt will be admitted to telemetry to monitor for alcohol withdrawal and suicide prevention. Pt will be transferred to psychiatry once medically cleared. # overdose -- secondary to suicide attempt -- ingestion of unknown amount of buproprion, gabapentin, and Vyvanse; hold these home meds -- monitor with one-on-one sitter -- telemetry monitoring -- monitor for seizure -- monitor QTc; current EKG shows NSR and QTc 479 -- consult tomorrow # Alcohol Withdrawal -- last drink 15-20 hours ago -- pt has mild tremors -- CIWA -- electroyles: potassium 3.6, Mg 2.3 -- thiamine and folic acid -- given Mg 1g in ED -- Lorazepam due to adverse reaction to phenobarbital # transaminitis -- trending down: AST 157 and ALT 64 at admission, AST 143 and ALT 61 subsequently -- monitor # Leukocytosis -- WBC 12.5 -- likely drug-induced -- monitor # severe depression -- hold home meds due to overdose -- monitor one-on-one # substance abuse -- Suboxone Full code DVT prophylaxis with Lovenox Attending: Dr. [place] Pt's anticipated hospital stay will be at least two overnights given his risk for alcohol withdrawal and need for overdose monitoring. Quality Stroke Does the patient have a stroke diagnosis?: No VTE Prior VTE?: No VTE Risk Level:: Medical - moderate - high VTE Device Contraindication: Treatment Not Indicated VTE Drug Contraindication: N/A - Med Ordered
--- NOTE | 2022-04-17 15:51 | MHC.CM.PN ---
Patient is here with suicide attempt. From chart review only, [facility]; returning to this program [facility] appears to be the tentative plan and CM has initiated and will follow for dc planning. PCP is Dr. Caitlyn Greenberg. Patient is on Suboxone and would benefit from a Care Tram Consult. CM will follow.
--- NOTE | 2022-04-17 16:00 | ECG_ITS ---
Test Reason : qrs prologation Blood Pressure : / mmHG Vent. Rate : 076 BPM Atrial Rate : 076 BPM P-R Int : 142 ms QRS Dur : 094 ms QT Int : 420 ms P-R-T Axes : 052 019 029 degrees QTc Int : 472 ms Normal sinus rhythm Normal ECG When compared with ECG of 17-APR-2022 11:58, No significant change was found Referred By: Generic ED Physician Electronically Signed By:JESSICA PICKERING MD
[2022-04-17] MEDS: LORazepam 1 MG TABLET PO (16:18)
[2022-04-17] MEDS: Thiamine HCL 100 MG TABLET 50 MG PO (16:19)
[2022-04-17] MEDS: Pyridoxine HCl (Vitamin B6) 50 MG TABLET PO (16:19)
[2022-04-17] MEDS: Multivitamin TABLET 1 TAB PO (16:20)
[2022-04-17] MEDS: Nicotine 21 MG PATCH.TD24 TRANSDERMA (16:20)
[2022-04-17] MEDS: Folic Acid 1 MG TABLET PO (16:20)
[2022-04-17] MEDS: Enoxaparin Sodium 40 MG/0.4 ML SYRINGE SUBCUT (16:20)
[2022-04-17] MEDS: 0.9 % Sodium Chloride Flush 3 ML SYRINGE IVFLUSH (16:21)
[2022-04-17] MEDS: Buprenorphine/Naloxone 8/2 mg FILM 2 FILM SUBLINGUAL (16:52)
--- NOTE | 2022-04-17 20:00 | ECG_ITS ---
Test Reason : Widen QRS Blood Pressure : / mmHG Vent. Rate : 078 BPM Atrial Rate : 078 BPM P-R Int : 138 ms QRS Dur : 098 ms QT Int : 404 ms P-R-T Axes : 064 034 049 degrees QTc Int : 460 ms Normal sinus rhythm Normal ECG When compared with ECG of 17-APR-2022 15:45, No significant change was found Referred By: [facility] Electronically Signed By:JESSICA PICKERING MD
[2022-04-17] MEDS: ondansetron HCL 4 MG/2 ML VIAL IVPUSH (20:15)
[2022-04-17] MEDS: Prazosin HCL 1 MG CAPSULE 2 MG PO (20:16)
[2022-04-17] MEDS: Gabapentin 400 MG CAPSULE 800 MG PO (20:16)
[2022-04-17] MEDS: Melatonin 3 MG TABLET 6 MG PO (20:16)
[2022-04-17] MEDS: Sennosides/Docusate Sodium TABLET 2 TAB PO (20:21)
[2022-04-17] MEDS: metroNIDAZOLE 0.75 % Gel 45 GM TUBE 1 APPL TOPICAL (22:00)
[2022-04-18] VITALS (7 sets, daily range): BP systolic 113–138; BP diastolic 56–76; PULSE 77–93; RESP 16–20; TEMP 36–36.7; O2SAT 95–98
--- NOTE | 2022-04-18 | ECG_ITS ---
Test Reason : Widen QRS Blood Pressure : / mmHG Vent. Rate : 078 BPM Atrial Rate : 078 BPM P-R Int : 138 ms QRS Dur : 092 ms QT Int : 406 ms P-R-T Axes : 051 028 050 degrees QTc Int : 462 ms Normal sinus rhythm Nonspecific T wave abnormality Prolonged QT Abnormal ECG No significant changes seen Referred By: [facility] Electronically Signed By:JESSICA PICKERING MD
[2022-04-18] MEDS: Cyclobenzaprine HCl 10 MG TABLET PO ×2 (00:10→09:40)
[2022-04-18] MEDS: Acetaminophen 325 MG TABLET 650 MG PO ×3 (00:13→16:54)
[2022-04-18] MEDS: LORazepam 1 MG TABLET PO ×2 (00:26→00:58)
[2022-04-18] MEDS: 0.9 % Sodium Chloride Flush 3 ML SYRINGE IVFLUSH ×4 (00:28→20:19)
--- NOTE | 2022-04-18 04:00 | ECG_ITS ---
Test Reason : Widen QRS Blood Pressure : / mmHG Vent. Rate : 083 BPM Atrial Rate : 083 BPM P-R Int : 136 ms QRS Dur : 090 ms QT Int : 482 ms P-R-T Axes : 051 018 053 degrees QTc Int : 566 ms Normal sinus rhythm Nonspecific T wave abnormality Abnormal ECG T wave amplitude has decreased in Anterolateral leads Referred By: Les [facility] Electronically Signed By:JESSICA PICKERING MD
[2022-04-18] MEDS: LORazepam 1 MG TABLET 2 MG PO ×4 (04:43→20:11)
[2022-04-18 06:58] LABS: Hematocrit 36.4 % (42.0-52.0); Hemoglobin 12.3 g/dl (14.0-18.0); Mean Corpuscular HGB Conc 33.8 g/dl (31.0-36.0); Mean Corpuscular Hemoglobin 29.9 pg (27.0-33.0); Mean Corpuscular Volume 88.6 fL (80.0-98.0); Mean Platelet Volume 10.5 fL (9.4-12.4); Platelet Count 182 X10*3/uL (160-400); Red Blood Count 4.11 X10*6/uL (4.60-5.80); Red Cell Distribution Width 13.4 % (11.0-16.0); White Blood Count 6.5 X10*3/uL (4.8-10.8)
[2022-04-18 07:32] LABS: Anion Gap 12 (12-20); Blood Urea Nitrogen 13 mg/dL (9-16); Calcium 8.3 mg/dL (8.4-10.2); Carbon Dioxide 27 mmol/L (22-29); Chloride 106 mmol/L (96-108); Creatinine Clr Calc Pharmacy 142.8; Estimated Glomerular Filt Rate > 60; Glucose Random 83 mg/dL (60-115); Potassium 3.9 mmol/L (3.3-5.1); Sodium 141 mmol/L (135-145)
[2022-04-18] MEDS: Gabapentin 400 MG CAPSULE 800 MG PO ×4 (08:14→20:11)
[2022-04-18] MEDS: Folic Acid 1 MG TABLET PO (08:14)
[2022-04-18] MEDS: Multivitamin TABLET 1 TAB PO (08:14)
[2022-04-18] MEDS: buPROPion HCl XL 300 MG TAB.ER.24H PO (08:14)
[2022-04-18] MEDS: Thiamine HCL 100 MG TABLET 50 MG PO (08:15)
[2022-04-18] MEDS: Pyridoxine HCl (Vitamin B6) 50 MG TABLET PO (08:15)
[2022-04-18] MEDS: Nicotine 21 MG PATCH.TD24 TRANSDERMA (08:15)
[2022-04-18] MEDS: Buprenorphine/Naloxone 8/2 mg FILM 2 FILM SUBLINGUAL (08:20)
--- NOTE | 2022-04-18 08:25 | ECG_ITS ---
Test Reason : CP Blood Pressure : / mmHG Vent. Rate : 074 BPM Atrial Rate : 074 BPM P-R Int : 134 ms QRS Dur : 088 ms QT Int : 416 ms P-R-T Axes : 057 027 042 degrees QTc Int : 461 ms Normal sinus rhythm RSR' or QR pattern in V1 suggests right ventricular conduction delay Otherwise normal ECG No previous ECGs available Referred By: Les [facility] Electronically Signed By:JESSICA PICKERING MD
[2022-04-18] MEDS: metroNIDAZOLE 0.75 % Gel 45 GM TUBE 1 APPL TOPICAL ×2 (08:32→20:17)
--- NOTE | 2022-04-18 09:45 | P.PNIM_ITS ---
Subjective Subjective Date of Service: 04/18/22 Interval History: Seen in f/u for alcohol withdrawal Interval history:has some tremors, denies SI Physical Exam Vital Signs: Vital Signs: Last Vital Signs Temp 98.0 F 04/18/22 07:46 Pulse 78 04/18/22 07:46 Resp 18 04/18/22 07:46 BP 121/56 L 04/18/22 07:46 Pulse Ox 96 04/18/22 07:46 O2 Del Method 04/18/22 07:46 BMI result Body Mass Index 29.0 Const: Other: Appearance: Alert. Oriented X3. No acute distress. Eyes: Pupils equal, round and reactive to light. ENT: Pharynx normal. Neck: Normal inspection. Neck supple. No lymph nodes noted. No crepitus CVS: Normal heart rate and rhythm. Pulses normal. Normal S1 and S2 Respiratory: No respiratory distress. Breath sounds normal. No Wheezing. No rales Abdomen: Soft and nontender. No rigidity. No distention. Skin: Skin warm and dry. Normal skin color. Normal skin turgor. Extremities: No lower extremity edema. No Lacerations. No Rash Neuro: Oriented X 3. No motor deficit. No sensory deficit. Moving all extremities. No slurred speech. CN 2 through 12 grossly intact Psych: calm, cooperative, normal affect, denies SI Objective Data Active Medications Acetaminophen (Acetaminophen 325 Mg Tablet) 650 mg PO Q6H PRN PRN Reason: Pain, Mild (Pain Scale 1-3) Last Admin: 04/18/22 09:38 Dose: 650 mg Documented By: AAMIR Buprenorphine/Naloxone (Buprenorphine/Naloxone 8/2 Mg Film) 2 film SUBLINGUAL DAILY COUNTS INCLUDE 234 BEDS AT THE [facility] Last Admin: 04/18/22 08:20 Dose: 2 film Documented By: AAMIR Bupropion HCl (Bupropion Hcl Xl 300 Mg Tab.Er.24h) 300 mg PO DAILY COUNTS INCLUDE 234 BEDS AT THE [facility] Last Admin: 04/18/22 08:14 Dose: 300 mg Documented By: AAMIR Cyclobenzaprine HCl (Cyclobenzaprine Hcl 10 Mg Tablet) 10 mg PO TID PRN PRN Reason: muscle spasm Last Admin: 04/18/22 09:40 Dose: 10 mg Documented By: AAMIR Enoxaparin Sodium (Enoxaparin Sodium 40 Mg/0.4 Ml Syringe) 40 mg SUBCUT Q24H COUNTS INCLUDE 234 BEDS AT THE [facility] Last Admin: 04/17/22 16:20 Dose: 40 mg Documented By: ALFREDO Folic Acid (Folic Acid 1 Mg Tablet) 1 mg PO DAILY COUNTS INCLUDE 234 BEDS AT THE [facility] Last Admin: 04/18/22 08:14 Dose: 1 mg Documented By: AAMIR Gabapentin (Gabapentin 400 Mg Capsule) 800 mg PO QID COUNTS INCLUDE 234 BEDS AT THE [facility] Last Admin: 04/18/22 08:14 Dose: 800 mg Documented By: AAMIR Hydroxyzine HCl (Hydroxyzine Hcl 25 Mg Tablet) 25 mg PO Q6H PRN PRN Reason: Anxiety Lorazepam (Lorazepam 1 Mg Tablet) 2 mg PO Q4H PRN PRN Reason: Anxiety Last Admin: 04/18/22 09:38 Dose: 2 mg Documented By: AAMIR Melatonin (Melatonin 3 Mg Tablet) 6 mg PO BEDTIME COUNTS INCLUDE 234 BEDS AT THE [facility] Last Admin: 04/17/22 20:16 Dose: 6 mg Documented By: ABDIRASHID Metronidazole (Metronidazole 0.75 % Gel 45 Gm Tube) 1 appl TOPICAL BID COUNTS INCLUDE 234 BEDS AT THE [facility] Last Admin: 04/18/22 08:32 Dose: 1 appl Documented By: AAMIR Multivitamins/Vitamin C (Multivitamin Tablet) 1 tab PO DAILY COUNTS INCLUDE 234 BEDS AT THE [facility] Last Admin: 04/18/22 08:14 Dose: 1 tab Documented By: AAMIR Nicotine (Nicotine 21 Mg Patch.Td24) 21 mg TRANSDERMA DAILY COUNTS INCLUDE 234 BEDS AT THE [facility] Last Admin: 04/18/22 08:15 Dose: 21 mg Documented By: AAMIR Ondansetron HCl (Ondansetron Hcl 4 Mg/2 Ml Vial) 4 mg IVPUSH Q8H PRN PRN Reason: Nausea and Vomiting Last Admin: 04/17/22 20:15 Dose: 4 mg Documented By: ABDIRASHID Polyethylene Glycol (Polyethylene Glycol 3350 17 Gm Powd.Pack) 17 gm PO DAILY PRN PRN Reason: Constipation Prazosin HCl (Prazosin Hcl 1 Mg Capsule) 2 mg PO BEDTIME COUNTS INCLUDE 234 BEDS AT THE [facility]; Protocol Last Admin: 04/17/22 20:16 Dose: 2 mg Documented By: ABDIRASHID Pyridoxine HCl (Pyridoxine Hcl (Vitamin B6) 50 Mg Tablet) 50 mg PO DAILY COUNTS INCLUDE 234 BEDS AT THE [facility] Last Admin: 04/18/22 08:15 Dose: 50 mg Documented By: AAMIR Senna/Docusate Sodium (Sennosides/Docusate Sodium Tablet) 2 tab PO BEDTIME PRN PRN Reason: Constipation Last Admin: 04/17/22 20:21 Dose: 2 tab Documented By: ABDIRASHID Sodium Chloride (0.9 % Sodium Chloride Flush 3 Ml Syringe) 3 ml IVFLUSH QSHIFT COUNTS INCLUDE 234 BEDS AT THE [facility] Last Admin: 04/18/22 08:16 Dose: 3 ml Documented By: AAMIR Thiamine HCl (Thiamine Hcl 100 Mg Tablet) 50 mg PO DAILY COUNTS INCLUDE 234 BEDS AT THE [facility] Last Admin: 04/18/22 08:15 Dose: 50 mg Documented By: AAMIR Labs CBC & Chem 7: 04/18/22 06:26 04/18/22 06:26 Labs: Laboratory Results - last 24 hr 04/17/22 04/18/22 04/18/22 10:07 06:26 06:26 MCV 88.6 MCH 29.9 MCHC 33.8 RDW 13.4 Plt Count 182 MPV 10.5 Absolute Nucleated RBC 0.000 Nucleated RBC % (auto) 0.0 Anion Gap 15 12 Estim Creat Clear Calc 114.3 142.8 Estimated GFR > 60 > 60 Random Glucose 122 H 83 Calcium 8.9 8.3 L D Total Bilirubin 0.8 Direct Bilirubin 0.3 AST 143 H ALT 61 H Alkaline Phosphatase 70 Total Protein 6.6 Albumin 4.4 Salicylates < 5.0 L Acetaminophen < 1 Assessment and Plan (1) Suicide attempt: Status: Acute (2) Major depression: Status: Acute (3) MDD (major depressive disorder), recurrent episode, severe: Status: Acute Plan Pt is a 51-year-old male with a PMH significant for alcohol use disorder with withdrawal, depression, polysubstance abuse, suicide attempts, and PTSD, who presents to the ED after binging on alcohol and crack cocaine and intentionally overdosing on his home meds this morning. Pt will be admitted to telemetry to monitor for alcohol withdrawal and suicide prevention. Pt will be transferred to psychiatry once medically cleared. # overdose -- secondary to suicide attempt -- ingestion of unknown amount of buproprion, gabapentin, and Vyvanse; hold these home meds -- monitor with one-on-one sitter -- telemetry monitoring -- monitor for seizure -- monitor QTc; current EKG shows NSR and QTc 479, repeat ECG # Alcohol Withdrawal -- last drink 15-20 hours ago -- pt has mild tremors -- CIWA -- electroyles: potassium 3.6, Mg 2.3 -- thiamine and folic acid -- given Mg 1g in ED -- Lorazepam due to adverse reaction to phenobarbital # transaminitis -- trending down: AST 157 and ALT 64 at admission, AST 143 and ALT 61 subsequently -- monitor # Leukocytosis -- WBC 12.5 -- likely drug-induced -- monitor # severe depression -- hold home meds due to overdose -- monitor one-on-one # substance abuse -- Suboxone Full code DVT prophylaxis with Lovenox Attending: Dr. Birmingham need for inpatient:ongoing alcohol withdrawal Quality Stroke Does the patient have a stroke diagnosis?: No VTE Prior VTE?: No VTE Risk Level:: Medical - moderate - high VTE Device Contraindication: Treatment Not Indicated VTE Drug Contraindication: N/A - Med Ordered
[2022-04-18] MEDS: Enoxaparin Sodium 40 MG/0.4 ML SYRINGE SUBCUT (12:52)
[2022-04-18] MEDS: chlordiazePOXIDE HCl 5 MG CAPSULE 10 MG PO ×2 (13:45→22:38)
[2022-04-18] MEDS: Prazosin HCL 1 MG CAPSULE 2 MG PO (20:12)
[2022-04-18] MEDS: Melatonin 3 MG TABLET 6 MG PO (20:13)
[2022-04-18] MEDS: Sennosides/Docusate Sodium TABLET 2 TAB PO (22:37)
[2022-04-19] MEDS: LORazepam 1 MG TABLET 2 MG PO ×3 (00:38→09:07)
[2022-04-19 02:51] VITALS: BP 106/59; PULSE 86; RESP 18; TEMP 36.1; O2SAT 98
[2022-04-19 07:30] VITALS: BP 98/65; PULSE 64; RESP 17; TEMP 36.6; O2SAT 98
--- NOTE | 2022-04-19 07:53 | MHC.CARE ---
PARUL cuellar completed.
[2022-04-19] MEDS: Buprenorphine/Naloxone 8/2 mg FILM 2 FILM SUBLINGUAL (09:06)
[2022-04-19] MEDS: 0.9 % Sodium Chloride Flush 3 ML SYRINGE IVFLUSH (09:06)
[2022-04-19] MEDS: Folic Acid 1 MG TABLET PO (09:07)
[2022-04-19] MEDS: Gabapentin 400 MG CAPSULE 800 MG PO (09:07)
[2022-04-19] MEDS: Nicotine 21 MG PATCH.TD24 TRANSDERMA (09:07)
[2022-04-19] MEDS: buPROPion HCl XL 300 MG TAB.ER.24H PO (09:07)
[2022-04-19] MEDS: Pyridoxine HCl (Vitamin B6) 50 MG TABLET PO (09:08)
[2022-04-19] MEDS: Thiamine HCL 100 MG TABLET 50 MG PO (09:08)
[2022-04-19] MEDS: Multivitamin TABLET 1 TAB PO (09:08)
[2022-04-19] MEDS: metroNIDAZOLE 0.75 % Gel 45 GM TUBE 1 APPL TOPICAL (09:14)
--- NOTE | 2022-04-19 09:39 | P.PNIM_ITS ---
Subjective Subjective Date of Service: 04/19/22 Interval History: Pt seen for f/u for alcohol withdrawal. Interval history: pt continues to complain of tremors, generalized pruritus, ALBRIGHT, diaphoresis. Reports having weird dreams last night and hearing soft music. States SI always present. Denies HI. Denies chest pain/pressure. No SOB or abdominal pain. Review of Systems Reports tremors and generalized pruritus. Notes diaphoresis and auditory hallucinations. Denies visual hallucinations and HI. Review of Systems: Yes all other systems are reviewed and are negative Physical Exam Vital Signs: Vital Signs: Last Vital Signs Temp 97.9 F 04/19/22 07:30 Pulse 64 04/19/22 07:30 Resp 17 04/19/22 07:30 BP 98/65 04/19/22 07:30 Pulse Ox 98 04/19/22 07:30 O2 Del Method 04/19/22 07:30 BMI result Body Mass Index 29.0 Appearance: Alert.? Oriented X3.? No acute distress.? Eyes: Pupils equal, round and reactive to light. ENT: Pharynx normal. Neck: Normal inspection.? Neck supple. No lymph nodes noted. No crepitus CVS: Normal heart rate and rhythm.? Pulses normal. Normal S1 and S2 Respiratory: No respiratory distress.? Breath sounds normal. No Wheezing. No rales Abdomen: Soft and nontender. No rigidity. No distention. Skin: Skin warm and dry.? Normal skin color.? Normal skin turgor. No diap horesis. Extremities: No lower extremity edema. No Lacerations. No Rash Neuro: Oriented X 3.? No motor deficit.? No sensory deficit. Moving all extremities. No slurred speech. CN 2 through 12 grossly intact Psych: notes thoughts of self harm are always there, but denies any specific plan. Calm, cooperative, normal affect, denies HI Objective Data Active Medications Acetaminophen (Acetaminophen 325 Mg Tablet) 650 mg PO Q6H PRN PRN Reason: Pain, Mild (Pain Scale 1-3) Last Admin: 04/18/22 16:54 Dose: 650 mg Documented By: AAMIR Buprenorphine/Naloxone (Buprenorphine/Naloxone 8/2 Mg Film) 2 film SUBLINGUAL DAILY [facility] Last Admin: 04/19/22 09:06 Dose: 2 film Documented By: AAMIR Bupropion HCl (Bupropion Hcl Xl 300 Mg Tab.Er.24h) 300 mg PO DAILY [facility] Last Admin: 04/19/22 09:07 Dose: 300 mg Documented By: AAMIR Chlordiazepoxide HCl (Chlordiazepoxide Hcl 5 Mg Capsule) 10 mg PO TID [facility] Last Admin: 04/18/22 22:38 Dose: 10 mg Documented By: JACLYN Comments: patient refused at 2100 wanted his ativan dosage and did not want to take both meds at the same time Cyclobenzaprine HCl (Cyclobenzaprine Hcl 10 Mg Tablet) 10 mg PO TID PRN PRN Reason: muscle spasm Last Admin: 04/18/22 09:40 Dose: 10 mg Documented By: AAMIR Enoxaparin Sodium (Enoxaparin Sodium 40 Mg/0.4 Ml Syringe) 40 mg SUBCUT Q24H [facility] Last Admin: 04/18/22 12:52 Dose: 40 mg Documented By: AAMIR Folic Acid (Folic Acid 1 Mg Tablet) 1 mg PO DAILY [facility] Last Admin: 04/19/22 09:07 Dose: 1 mg Documented By: AAMIR Gabapentin (Gabapentin 400 Mg Capsule) 800 mg PO QID [facility] Last Admin: 04/19/22 09:07 Dose: 800 mg Documented By: AAMIR Hydroxyzine HCl (Hydroxyzine Hcl 25 Mg Tablet) 25 mg PO Q6H PRN PRN Reason: Anxiety Lorazepam (Lorazepam 1 Mg Tablet) 2 mg PO Q6H PRN PRN Reason: Anxiety Last Admin: 04/19/22 09:07 Dose: 2 mg Documented By: AAMIR Melatonin (Melatonin 3 Mg Tablet) 6 mg PO BEDTIME [facility] Last Admin: 04/18/22 20:13 Dose: 6 mg Documented By: JACLYN Metronidazole (Metronidazole 0.75 % Gel 45 Gm Tube) 1 appl TOPICAL BID [facility] Last Admin: 04/19/22 09:14 Dose: 1 appl Documented By: AAMIR Multivitamins/Vitamin C (Multivitamin Tablet) 1 tab PO DAILY [facility] Last Admin: 04/19/22 09:08 Dose: 1 tab Documented By: AAMIR Nicotine (Nicotine 21 Mg Patch.Td24) 21 mg TRANSDERMA DAILY [facility] Last Admin: 04/19/22 09:07 Dose: 21 mg Documented By: AAMIR Ondansetron HCl (Ondansetron Hcl 4 Mg/2 Ml Vial) 4 mg IVPUSH Q8H PRN PRN Reason: Nausea and Vomiting Last Admin: 04/17/22 20:15 Dose: 4 mg Documented By: ABDIRASHID Polyethylene Glycol (Polyethylene Glycol 3350 17 Gm Powd.Pack) 17 gm PO DAILY PRN PRN Reason: Constipation Prazosin HCl (Prazosin Hcl 1 Mg Capsule) 2 mg PO BEDTIME [facility]; Protocol Last Admin: 04/18/22 20:12 Dose: 2 mg Documented By: JACLYN Pyridoxine HCl (Pyridoxine Hcl (Vitamin B6) 50 Mg Tablet) 50 mg PO DAILY [facility] Last Admin: 04/19/22 09:08 Dose: 50 mg Documented By: AAMIR Senna/Docusate Sodium (Sennosides/Docusate Sodium Tablet) 2 tab PO BEDTIME PRN PRN Reason: Constipation Last Admin: 04/18/22 22:37 Dose: 2 tab Documented By: JACLYN Sodium Chloride (0.9 % Sodium Chloride Flush 3 Ml Syringe) 3 ml IVFLUSH QSHIFT [facility] Last Admin: 04/19/22 09:06 Dose: 3 ml Documented By: AAMIR Thiamine HCl (Thiamine Hcl 100 Mg Tablet) 50 mg PO DAILY [facility] Last Admin: 04/19/22 09:08 Dose: 50 mg Documented By: AAMIR Labs CBC & Chem 7: 04/18/22 06:26 04/18/22 06:26 Assessment and Plan (1) Suicide attempt: Status: Acute (2) MDD (major depressive disorder), recurrent episode, severe: Status: Acute (3) Drug overdose: Status: Acute (4) Alcohol use disorder: Status: Chronic Plan Pt is a 51-year-old male with a PMH significant for alcohol use disorder with withdrawal, depression, polysubstance abuse, suicide attempts, and PTSD, who presents to the ED after binging on alcohol and crack cocaine and intentionally overdosing on his home meds this morning. Pt was admitted to telemetry to monitor for alcohol withdrawal and suicide prevention. Pt likely to be transferred to psychiatry later in the day.? # overdose -- secondary to suicide attempt -- ingestion of unknown amount of buproprion, gabapentin, and Vyvanse; hold these home meds -- monitor with one-on-one sitter -- telemetry monitoring -- monitor for seizure -- monitor QTc; latest EKG on 04/18 shows NSR and QTc 462 # Alcohol Withdrawal -- last drink the night of 04/16 -- pt has mild tremors -- CIWA -- electroyles: potassium 3.6, Mg 2.3 -- thiamine and folic acid -- given Mg 1g in ED -- Lorazepam due to adverse reaction to phenobarbital # transaminitis -- trending down: AST 157 and ALT 64 at admission, AST 143 and ALT 61 subsequently -- monitor # Leukocytosis, now resolved -- WBC 12.5 at admission, 6.5 on 04/18 -- likely drug-induced -- monitor # severe depression -- hold home meds due to overdose -- monitor one-on-one # substance abuse -- Suboxone Full code DVT prophylaxis with Lovenox Attending: Dr. Birmingham Due to stability of all objective data, pt does not seem to be in active withdrawal and will likely be transferred to inpatient psychiatry. Quality Stroke Does the patient have a stroke diagnosis?: No VTE Prior VTE?: No VTE Risk Level:: Medical - moderate - high VTE Device Contraindication: Treatment Not Indicated VTE Drug Contraindication: N/A - Med Ordered
[2022-04-19 10:55] VITALS: BP 140/72; PULSE 78; RESP 17; TEMP 36.5; O2SAT 97
--- NOTE | 2022-04-19 11:02 | P.DS_ITS ---
DS: Providers Provider Date of Service: 04/19/22 Date of admission: 04/17/22 13:22 Date of discharge: 04/19/22 Primary care physician: Caitlyn Greenberg NP Consults: 04/17/22 05:32 BHN [Consult to Crisis] Stat Reason for consultation: si attempt 04/17/22 13:32 Consult for Sitter Routine Reason for consultation: SI Has provider been notified: No 04/19/22 07:43 Consult to Care Team Routine Comment: Reason for consultation: SI, medically ready for discharge DS: Diagnosis Discharge Diagnosis (1) Suicide attempt: Status: Acute (2) MDD (major depressive disorder), recurrent episode, severe: Status: Acute (3) Drug overdose: Status: Acute (4) Alcohol use disorder: Status: Chronic DS: Summary Hospital Course Hospital Course: Presenting HPI: Chief Complaint: Suicide Attempt Pt is a 51-year-old male with a PMH significant for alcohol use disorder with withdrawal, depression, polysubstance abuse, suicide attempts, and PTSD, who presents to the ED after binging on alcohol and crack cocaine and intentionally overdosing on his home meds this morning. Pt state that he has been drinking heavily for the past month (at least a fifth and 6-pack daily) which increases his depression. Yesterday he notes he had some extra money so he purchased and smoked a large amount of crack cocaine, while also consuming over a fifth of alcohol. Reports that last drink was 15-20 hours ago. Early this morning pt says he found himself in an alley by himself and suddenly wanted to end it all so he took all of the home meds he had on him: Vyvanse, gabapentin, and buproprion. He was unable to say exactly how many pills he took of each. He then immediately regretted his decision and called 911. Pt reports ALBRIGHT, nausea, general pruritus, anxiety, and tremors. Notes one episode of palpitations while on the stretcher entering the hospital, and has been alternating between feeling hot and cold. Denies chest pain or pressure, diaphoresis, SOB, or difficulty breathing. No abdominal pain. No verbal or auditory hallucinations or thoughts of harming others. Pt reports a history of alcohol withdrawal with hallucinations and seizures, and that he is allergic to phenobarbital. Of note, pt was admitted to the hospital for similar complaints three times last year. In the ED pt was given three doses of Lorazepam 2mg PO, Mg 1g, thiamine 50mg, and one dose of activated charcoal. Poison control was consulted. Labs significant for WBC 12.5, AST 143, ALT 61. Tested positive for amphetamines and cocaine. EKG notable for QTc elevated at 485; two subsequent EKGs normal sinus rhythm and QTc WNL at 470 and 479. Pt will be admitted to telemetry to monitor for alcohol withdrawal and suicide prevention. Pt will be transferred to psychiatry once medically cleared. Hospital Course: Pt was admitted to telemetry with a one-on-one sitter d/t SI; none of the sitters observed any acute concerns. Pt reports being allergic to phenobarbital so was given lorazepam 2mg q4 prn for anxiety/withdrawal symptoms. Pt reported worsening withdrawal symptoms during his stay -- ALBRIGHT, sweating, tremors, general pruritus, anxiety, agitation, disorientation, and auditory hallucinations. However, despite pt's subjective symptoms, clinical presentation does not match his self-reported CIWA score: pt is not tachycardic, diaphoretic, seemingly responding to external stimuli, or observed on the monitor to itch/scratch or have consistent, worsening tremors. EKGs and telemetry showed NSR; QTc was 462 on latest EKG. Pt was regularly asking staff to take his CIWA score so he can get his lorazepam. Pt thus does not appear to be in acute alcohol withdrawal. Behavioral health was consulted and agreed to admit patient. His lorazepam will be reduced to 1mg q6. Status at Discharge Cognitive/behavioral status at discharge: Alert and oriented x3. Time Spent with Patient Time attestation: Total time spent providing and/or coordinating discharge services: Discharge coordination time: Greater than 30 minutes Quality: Safe Use of Opioids Does Pt have an Active Cancer Diagnosis on the Problem List?: No Quality: Stroke Does the patient have a stroke diagnosis?: No Physical Exam Vital Signs: Vital Signs: Last Vital Signs Temp 97.7 F 04/19/22 10:55 Pulse 78 04/19/22 10:55 Resp 17 04/19/22 10:55 BP 140/72 H 04/19/22 10:55 Pulse Ox 97 04/19/22 10:55 O2 Del Method 04/19/22 10:55 BMI result Body Mass Index 29.0 Appearance: Alert.? Oriented X3.? No acute distress.? Eyes: Pupils equal, round and reactive to light. ENT: Pharynx normal. Neck: Normal inspection.? Neck supple. No lymph nodes noted. No crepitus CVS: Normal heart rate and rhythm.? Pulses normal. Normal S1 and S2 Respiratory: No respiratory distress.? Breath sounds normal. No Wheezing. No rales Abdomen: Soft and nontender. No rigidity. No distention. Skin: Skin warm and dry.? Normal skin color.? Normal skin turgor. No diaphoresis. Extremities: No lower extremity edema. No Lacerations. No Rash Neuro: Oriented X 3.? No motor deficit.? No sensory deficit. Moving all extremities. No slurred speech. CN 2 through 12 grossly intact Psych: notes thoughts of self harm are always there, but denies any specific plan. Calm, cooperative, normal affect, denies HI DS: Data Data Completed and Pending Completed studies during hospitalization [Text1]: Procedures Detoxification Services for Substance Abuse Treatment (03/15/21) Discharge Plan Discharge Anticipated Discharge Date/Time: 04/19/22 13:00 Disposition: Xfer Psychiatric Hosp Referrals: Caitlyn Greenberg NP [Primary Care Provider] - 1 Week Discharge Medications: Continued cyclobenzaprine 10 mg Tablet 10 mg PO TID PRN (Reason: muscle spasm) Qty: 90 0RF prazosin 1 mg Capsule 2 mg PO BEDTIME Qty: 60 0RF Protocol: Hold for SBP< HOLD for SBP < : 90 nicotine 21 mg/24 hr Patch 24 Hour 21 mg transdermal DAILY Qty: 30 0RF buprenorphine-naloxone [Suboxone] 8-2 mg Film 2 film sublingual DAILY Qty: 0 0RF multivitamin [Daily-Tony] Tablet 1 tab PO DAILY Qty: 30 0RF polyethylene glycol 3350 17 gram Powder In Packet 17 g PO DAILY PRN (Reason: Constipation) Qty: 30 0RF melatonin 3 mg Tablet 6 mg PO BEDTIME Qty: 60 0RF pyridoxine (vitamin B6) 50 mg Tablet 50 mg PO DAILY Qty: 30 0RF folic acid 1 mg Tablet 1 mg PO DAILY Qty: 30 0RF hydroxyzine HCl 25 mg Tablet 25 mg PO Q6H PRN (Reason: Anxiety) Qty: 90 0RF metronidazole 0.75 % Gel 1 appl topical BID Qty: 45 0RF thiamine mononitrate (vit B1) 100 mg Tablet 50 mg PO DAILY Qty: 30 0RF lorazepam 0.5 mg tablet 1 tab PO BID PRN (Reason: anxiety) Vyvanse 20 mg capsule 1 cap PO QAM bupropion HCl 300 mg tablet extended release 24 hr 1 tab PO DAILY sennosides-docusate sodium [Senna Plus] 8.6-50 mg tablet 2 tab PO BEDTIME PRN (Reason: Constipation) naproxen 250 mg tablet 250 mg PO BID gabapentin 800 mg tablet 1 tab PO QID Discharge Orders: Discharge Order (Routine); Ordered 04/19/22 Ordered By: Price Claire Forms: Patient Portal Discharge page Care Plan Goals: Pt will be transferred to psychiatry hospital for further treatment and stab ilization. Health Concerns: Polysubstance abuse and MDD with SI. Plan of Treatment: F/U with PCP and counseling services for ways of stopping drinking safely and staying sober. F/U with psychiatry for MDD with SI. Assessment: See discharge summary Patient Instructions: Benzodiazepine Abuse (DC), Alcohol Use Disorder (DC), Suicide Prevention (DC)
--- NOTE | 2022-04-19 12:23 | MHC.CM.PN ---
PT TO TRANSFER TO INPT PSYCH TODAY
== END 2022-04-19 12:14 | DRG 817 ==
LOC: HO.ED 09:42 → HO.EDOVER 14:01 → HO.IMC 14:12
PROVIDERS: Admitting Provider Student in an Organized Health Care Education/Training Program; Emergency Provider Emergency Medicine; PCP Nurse Practitioner Family; Visit Provider Internal Medicine
DX: T42.6X2A Poisoning by other antiepileptic and sedative-hypnotic drugs, intentional self-harm, initial encounter (principal); F33.2 Major depressive disorder, recurrent severe without psychotic features; F10.239 Alcohol dependence with withdrawal, unspecified; F11.20 Opioid dependence, uncomplicated; T43.622A Poisoning by amphetamines, intentional self-harm, initial encounter; T43.292A Poisoning by other antidepressants, intentional self-harm, initial encounter; F43.12 Post-traumatic stress disorder, chronic; F17.210 Nicotine dependence, cigarettes, uncomplicated; Z20.822 Contact with and (suspected) exposure to COVID-19; Z71.6 Tobacco abuse counseling; Z91.51 Personal history of suicidal behavior; Z79.899 Other long term (current) drug therapy
CPT/HCPCS: 36415; 80048; 80076; 80143; 80179; 80307; 81001; 82077; 82803; 83690; 83735; 84484; 85025; 85027; 85610; 87635; 93005; 99285; J1650; J2405; J3475

== ENCOUNTER 2022-04-19 12:40 | Inpatient (IN) | payer OTHER, MEDICAID, SELFPAY ==
[2022-04-19] MEDS: LORazepam 1 MG TABLET 2 MG PO ×2 (13:36→20:16)
--- NOTE | 2022-04-19 14:52 | PC.ADMIT ---
pt is a 51 year old male who presented to [facility] ED with an overdose of pills, SI and alcohol withdrawl. pt tox screen is postive for amphetamines, cocaine, and alcohol. pt PMH includes multiple hospitalizations and alcohol detox programs. during admission, pt is very anxious about his ativan. pt does not look like he exhibiting withdrawal symptoms, but he is experiencing them internally. pt is complaining of hip pain, an says he needs a replacement. pt has a bruise on left toe and pt takes tylenol for his headaches. pt takes flexril a night for hip pain. start treament plan and promote safety
[2022-04-19] MEDS: chlordiazePOXIDE HCl 5 MG CAPSULE 10 MG PO (17:55)
[2022-04-19 18:00] VITALS: BP 130/72; PULSE 86; TEMP 36.8; O2SAT 96
[2022-04-19] MEDS: Cyclobenzaprine HCl 10 MG TABLET PO (20:16)
[2022-04-19] MEDS: LORazepam 0.5 MG TABLET PO (20:16)
[2022-04-19] MEDS: Prazosin HCL 1 MG CAPSULE 2 MG PO (20:16)
[2022-04-19] MEDS: traZODone HCL 50 MG TABLET PO (20:17)
[2022-04-19] MEDS: Gabapentin 300 MG CAPSULE PO (20:17)
[2022-04-19] MEDS: NaPROXEN 250 MG TABLET PO (20:17)
[2022-04-19] MEDS: metroNIDAZOLE 0.75 % Gel 45 GM TUBE 1 APPL TOPICAL (20:18)
[2022-04-20 06:00] VITALS: BP 155/116; PULSE 83; RESP 14; TEMP 36.6; O2SAT 98
[2022-04-20] MEDS: buPROPion HCl XL 300 MG TAB.ER.24H PO (08:55)
[2022-04-20] MEDS: Gabapentin 300 MG CAPSULE PO (08:55)
[2022-04-20] MEDS: chlordiazePOXIDE HCl 5 MG CAPSULE 10 MG PO (08:55)
[2022-04-20] MEDS: Thiamine HCL 100 MG TABLET 50 MG PO (08:56)
[2022-04-20] MEDS: NaPROXEN 250 MG TABLET PO ×2 (08:56→21:30)
[2022-04-20] MEDS: Pyridoxine HCl (Vitamin B6) 50 MG TABLET PO (08:56)
[2022-04-20] MEDS: Folic Acid 1 MG TABLET PO (08:57)
[2022-04-20] MEDS: Multivitamin TABLET 1 TAB PO (08:57)
[2022-04-20] MEDS: Nicotine 21 MG PATCH.TD24 TRANSDERMA (08:57)
[2022-04-20] MEDS: Buprenorphine/Naloxone 8/2 mg FILM 2 FILM SUBLINGUAL (08:58)
[2022-04-20] MEDS: LORazepam 1 MG TABLET 2 MG PO ×2 (09:26→14:04)
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
[2022-04-20 11:45] LABS: Alanine Aminotransferase 68 U/L (0-40); Albumin Level 4.4 g/dL (3.5-5.0); Alkaline Phosphatase 69 U/L (39-117); Anion Gap 15 (12-20); Aspartate Amino Transferase 49 U/L (5-37); Bilirubin Total 0.5 mg/dL (0.0-1.0); Blood Urea Nitrogen 14 mg/dL (9-16); Calcium 9.4 mg/dL (8.4-10.2); Carbon Dioxide 24 mmol/L (22-29); Chloride 102 mmol/L (96-108); Estimated Glomerular Filt Rate > 60; Glucose Random 99 mg/dL (60-115); Potassium 4.6 mmol/L (3.3-5.1); Sodium 136 mmol/L (135-145); Total Protein 6.9 g/dL (6.5-8.0)
[2022-04-20] MEDS: Cyclobenzaprine HCl 10 MG TABLET PO ×2 (12:40→21:29)
[2022-04-20] MEDS: LORazepam 0.5 MG TABLET PO (12:45)
[2022-04-20 12:58] VITALS: BP 148/89; PULSE 83; RESP 16; O2SAT 99
[2022-04-20] MEDS: Gabapentin 300 MG CAPSULE 600 MG PO ×2 (14:04→21:30)
[2022-04-20 14:07] VITALS: BP 189/85; PULSE 93
[2022-04-20] MEDS: LORazepam 1 MG TABLET PO ×3 (17:24→21:33)
[2022-04-20 17:27] VITALS: BP 135/83; PULSE 106; RESP 16; TEMP 36.1
[2022-04-20] MEDS: traZODone HCL 50 MG TABLET PO (21:29)
[2022-04-20] MEDS: Prazosin HCL 1 MG CAPSULE 2 MG PO (21:30)
--- NOTE | 2022-04-21 04:39 | PC.NURSE ---
Ativan 1mg not given low CIWA score PT sleeping
[2022-04-21 06:00] VITALS: BP 131/74; PULSE 83; RESP 14; TEMP 36.5; O2SAT 100
[2022-04-21] MEDS: buPROPion HCl XL 300 MG TAB.ER.24H PO (08:27)
[2022-04-21] MEDS: Thiamine HCL 100 MG TABLET 50 MG PO (08:28)
[2022-04-21] MEDS: Folic Acid 1 MG TABLET PO (08:28)
[2022-04-21] MEDS: Pyridoxine HCl (Vitamin B6) 50 MG TABLET PO (08:28)
[2022-04-21] MEDS: Gabapentin 300 MG CAPSULE 600 MG PO ×3 (08:28→21:47)
[2022-04-21] MEDS: Multivitamin TABLET 1 TAB PO (08:29)
[2022-04-21] MEDS: NaPROXEN 250 MG TABLET PO ×2 (08:29→21:48)
[2022-04-21] MEDS: Nicotine 21 MG PATCH.TD24 TRANSDERMA (08:30)
[2022-04-21] MEDS: Buprenorphine/Naloxone 8/2 mg FILM 2 FILM SUBLINGUAL (08:30)
[2022-04-21] MEDS: LORazepam 1 MG TABLET PO ×4 (08:32→21:48)
--- NOTE | 2022-04-21 09:23 | HO.PSYCHPN ---
Subjective Subjective Date of Service: 04/21/22 Reason For Visit: Depression, polysubstance abuse D/O;SI Interim History: Reports he is still in withdrawal. His CIWA has been decreasing and he didn't need Ativan last night. He appears less anxious and restless than yesterday. Still complains of AVH but doesn't appear to be responding to IS. His VS are improving. His LFT's are going down nicely. He said he had nausea and vomiting yesterday at lunch but was able to eat dinner but picked on it . Mental Status Exam Mental Status Exam Patient Appearance: Unkempt Patient Orientation: Person, Place, Time and Situation Level of Consciousness: Awake and Appropriate Patient Behavior: Appropriate, Restless, Anxious, Isolative and Good Eye Contact Mood Description: Depressed, Anxious and Sad Affect Description: Constricted, Depressed and Anxious Patient Cognition Impaired: No Ability to Follow Directions: Excellent Speech Pattern: Clear Memory Description: Intact Hallucinations: Auditory and Visual Perceptual Disturbances: Hallucinations and Illusions Thought Process: Intact and Linear Depressive Symptoms: Feelings of Worthlessness and Feelings of Guilt Diagnostics Vital Signs (24Hr): Vital Signs - 24 hr 04/20/22 12:58 04/20/22 14:07 04/20/22 17:27 Temperature 97 F Pulse Rate 83 93 106 H Respiratory Rate 16 16 Blood Pressure 148/89 H 189/85 H 135/83 Pulse Oximetry 99 Oxygen Delivery Method Room Air Labs Results: 04/20/22 11:17 Labs: Laboratory Results - last 48 hr 04/20/22 11:17 Sodium 136 Potassium 4.6 Chloride 102 Carbon Dioxide 24 Anion Gap 15 BUN 14 Creatinine 0.83 Estim Creat Clear Calc TNP Estimated GFR > 60 Random Glucose 99 Calcium 9.4 D Total Bilirubin 0.5 AST 49 H ALT 68 H Alkaline Phosphatase 69 Total Protein 6.9 Albumin 4.4 Medications Medications Current Medications Acetaminophen (Acetaminophen 325 Mg Tablet) 650 mg PO Q6H PRN PRN Reason: Pain, Mild (Pain Scale 1-3) Al Hydroxide/Mg Hydroxide (Magnesium Hydrox/Alum Hydrox 30 Ml Oral.Susp) 30 ml PO Q6H PRN PRN Reason: Heartburn/Nausea Buprenorphine/Naloxone (Buprenorphine/Naloxone 8/2 Mg Film) 2 film SUBLINGUAL DAILY [facility] Last Admin: 04/21/22 08:30 Dose: 2 film Bupropion HCl (Bupropion Hcl Xl 300 Mg Tab.Er.24h) 300 mg PO DAILY [facility] Last Admin: 04/21/22 08:27 Dose: 300 mg Cyclobenzaprine HCl (Cyclobenzaprine Hcl 10 Mg Tablet) 10 mg PO TID PRN PRN Reason: muscle spasm Last Admin: 04/20/22 21:29 Dose: 10 mg Enoxaparin Sodium (Enoxaparin Sodium 40 Mg/0.4 Ml Syringe) 40 mg SUBCUT Q24H [facility] Last Admin: 04/20/22 12:43 Dose: Not Given Folic Acid (Folic Acid 1 Mg Tablet) 1 mg PO DAILY [facility] Last Admin: 04/21/22 08:28 Dose: 1 mg Gabapentin (Gabapentin 300 Mg Capsule) 600 mg PO TID [facility] Last Admin: 04/21/22 08:28 Dose: 600 mg Hydroxyzine HCl (Hydroxyzine Hcl 25 Mg Tablet) 25 mg PO Q6H PRN PRN Reason: Anxiety Lorazepam (Lorazepam 1 Mg Tablet) 1 mg PO Q4H [facility]; Taper Stop: 04/24/22 16:59 Last Admin: 04/21/22 08:32 Dose: 1 mg Magnesium Hydroxide (Milk Of Magnesia 30 Ml Oral.Susp) 30 ml PO DAILY PRN PRN Reason: Constipation Metronidazole (Metronidazole 0.75 % Gel 45 Gm Tube) 1 appl TOPICAL BID [facility] Last Admin: 04/21/22 09:18 Dose: Not Given Multivitamins/Vitamin C (Multivitamin Tablet) 1 tab PO DAILY [facility] Last Admin: 04/21/22 08:29 Dose: 1 tab Naproxen (Naproxen 250 Mg Tablet) 250 mg PO BID [facility] Last Admin: 04/21/22 08:29 Dose: 250 mg Nicotine (Nicotine 21 Mg Patch.Td24) 21 mg TRANSDERMA DAILY [facility] Last Admin: 04/21/22 08:30 Dose: 21 mg Non-Formulary Medication (Lisdexamfetamine [Vyvanse]) 1 cap PO QAM [facility] Ondansetron HCl (Ondansetron Odt 4 Mg Tab.Rapdis) 4 mg TRANSLINGU Q6H PRN PRN Reason: Nausea and Vomiting Polyethylene Glycol (Polyethylene Glycol 3350 17 Gm Powd.Pack) 17 gm PO DAILY PRN PRN Reason: Constipation Prazosin HCl (Prazosin Hcl 1 Mg Capsule) 2 mg PO BEDTIME [facility]; Protocol Last Admin: 04/20/22 21:30 Dose: 2 mg Pyridoxine HCl (Pyridoxine Hcl (Vitamin B6) 50 Mg Tablet) 50 mg PO DAILY [facility] Last Admin: 04/21/22 08:28 Dose: 50 mg Senna/Docusate Sodium (Sennosides/Docusate Sodium Tablet) 2 tab PO BEDTIME PRN PRN Reason: Constipation Thiamine HCl (Thiamine Hcl 100 Mg Tablet) 50 mg PO DAILY [facility] Last Admin: 04/21/22 08:28 Dose: 50 mg Trazodone HCl (Trazodone Hcl 50 Mg Tablet) 50 mg PO BEDTIME PRN PRN Reason: Insomnia Last Admin: 04/20/22 21:29 Dose: 50 mg Allergies Allergies Allergy/AdvReac Type Severity Reaction Status Date / Time phenobarbital AdvReac Vomiting Verified 11/12/21 15:48 Assessment & Plan Assessment & Plan (1) Major depression: Status: Acute Code(s): F32.9 - Major depressive disorder, single episode, unspecified (2) Drug overdose: Qualifiers: Encounter type: initial encounter Injury intent: intentional self-harm Qualified Code(s): T50.902A - Poisoning by unspecified drugs, medicaments and biological substances, intentional self-harm, initial encounter Status: Acute Code(s): T50.901A - Poisoning by unspecified drugs, medicaments and biological substances, accidental (unintentional), initial encounter (3) Chronic post-traumatic stress disorder (PTSD): Status: Acute Code(s): F43.12 - Post-traumatic stress disorder, chronic (4) Alcohol use disorder: Status: Chronic Assessment and Plan: 51 year old with history of depression and PSA/dependence admitted s/p OD and after observation on medicine for ETOH W/D. He continues with symptoms of the same. He is now feeling safe and future oriented and wants to get treatment again, Plan - Admit to [facility]. CV - Management of withdrawals with Ativan taper and CIWA monitoring. - Groups and milieu therapy - Continue psychiatric medications. Titrated GBP to help with withdrawal as well. - Discharge planning. 04/21: Zofran for nausea. Continue other medications as they are. I spent minutes with the patient and/or on the patient floor today, greater than?50% of which was spent counseling/coordinating care. Reason for contiued inpatient stay Substantial Risk for: harm to self, inability to function and rapid decompensation
[2022-04-21] MEDS: Cyclobenzaprine HCl 10 MG TABLET PO ×3 (09:31→21:48)
[2022-04-21] MEDS: metroNIDAZOLE 0.75 % Gel 45 GM TUBE 1 APPL TOPICAL (12:57)
[2022-04-21 12:58] VITALS: BP 145/75; PULSE 76
[2022-04-21] MEDS: Nicotine Polacrilex 2 MG GUM BUCCAL ×2 (14:30→15:59)
[2022-04-21] MEDS: hydrOXYzine HCL 25 MG TABLET PO ×2 (15:59→21:49)
[2022-04-21 18:19] VITALS: RESP 18
[2022-04-21 21:26] VITALS: BP 121/58; PULSE 72
[2022-04-21] MEDS: Prazosin HCL 1 MG CAPSULE 2 MG PO (21:48)
[2022-04-21] MEDS: traZODone HCL 50 MG TABLET PO (21:49)
[2022-04-22] MEDS: LORazepam 1 MG TABLET PO ×4 (04:53→20:13)
[2022-04-22 06:00] VITALS: BP 117/66; PULSE 72; TEMP 36.2; O2SAT 98
[2022-04-22] MEDS: Nicotine 21 MG PATCH.TD24 TRANSDERMA (08:26)
[2022-04-22] MEDS: buPROPion HCl XL 300 MG TAB.ER.24H PO (08:26)
[2022-04-22] MEDS: Folic Acid 1 MG TABLET PO (08:26)
[2022-04-22] MEDS: Buprenorphine/Naloxone 8/2 mg FILM 2 FILM SUBLINGUAL (08:26)
[2022-04-22] MEDS: Gabapentin 300 MG CAPSULE 600 MG PO ×2 (08:26→14:26)
[2022-04-22] MEDS: Multivitamin TABLET 1 TAB PO (08:27)
[2022-04-22] MEDS: NaPROXEN 250 MG TABLET PO ×2 (08:27→20:13)
[2022-04-22] MEDS: Pyridoxine HCl (Vitamin B6) 50 MG TABLET PO (08:27)
[2022-04-22] MEDS: Thiamine HCL 100 MG TABLET 50 MG PO (08:27)
[2022-04-22] MEDS: Cyclobenzaprine HCl 10 MG TABLET PO ×2 (09:01→20:14)
[2022-04-22] MEDS: metroNIDAZOLE 0.75 % Gel 45 GM TUBE 1 APPL TOPICAL ×2 (09:04→21:00)
--- NOTE | 2022-04-22 10:28 | HO.PSYCHPN ---
Subjective Subjective Date of Service: 04/22/22 Reason For Visit: Depression, polysubstance abuse D/O;SI Interim History: pt reports that he's doing better; still depressed but no SI. He talked about what helped him stay sober which was mostly being around sober people and staying away from the opposite; got triggered when attempting to get open about hx of trauma. Still remains on wait list for therapist... Pt says w/drawal symptoms are lessening and will likely be over soon. hopes to get into a program. Would like home meds titrated to previous doses. Mental Status Exam Mental Status Exam Narrative: Pt is alert and oriented; behavior is quiet, cooperative, and calm; patient is not in distress; dressed in casual attire, bald head, adequate hygiene; mood is described as ok...depressed and affect congruent, downcaste; eye contact appropriate; Speech is is a little soft; normal rate and prosody and not pressured; psychomotor retardation present; thought process is organized and goal directed; Thought content is on tx, recovery; otherwise pertinent to relevant topics and without any delusional content, paranoid ideations or grandiosity; denies any SI/HI. There is no evidence of perceptual disturbance. Patients insight and judgment are impaired but improving. Diagnostics Vital Signs (24Hr): Vital Signs - 24 hr 04/21/22 12:58 04/21/22 18:19 04/21/22 21:26 Pulse Rate 76 72 Respiratory Rate 18 Blood Pressure 145/75 H 121/58 L Labs Results: 04/20/22 11:17 Labs: Laboratory Results - last 48 hr 04/20/22 11:17 Sodium 136 Potassium 4.6 Chloride 102 Carbon Dioxide 24 Anion Gap 15 BUN 14 Creatinine 0.83 Estim Creat Clear Calc TNP Estimated GFR > 60 Random Glucose 99 Calcium 9.4 D Total Bilirubin 0.5 AST 49 H ALT 68 H Alkaline Phosphatase 69 Total Protein 6.9 Albumin 4.4 Medications Medications Current Medications Acetaminophen (Acetaminophen 325 Mg Tablet) 650 mg PO Q6H PRN PRN Reason: Pain, Mild (Pain Scale 1-3) Al Hydroxide/Mg Hydroxide (Magnesium Hydrox/Alum Hydrox 30 Ml Oral.Susp) 30 ml PO Q6H PRN PRN Reason: Heartburn/Nausea Buprenorphine/Naloxone (Buprenorphine/Naloxone 8/2 Mg Film) 2 film SUBLINGUAL DAILY [facility] Last Admin: 04/22/22 08:26 Dose: 2 film Bupropion HCl (Bupropion Hcl Xl 300 Mg Tab.Er.24h) 300 mg PO DAILY [facility] Last Admin: 04/22/22 08:26 Dose: 300 mg Cyclobenzaprine HCl (Cyclobenzaprine Hcl 10 Mg Tablet) 10 mg PO TID PRN PRN Reason: muscle spasm Last Admin: 04/22/22 09:01 Dose: 10 mg Enoxaparin Sodium (Enoxaparin Sodium 40 Mg/0.4 Ml Syringe) 40 mg SUBCUT Q24H [facility] Last Admin: 04/21/22 12:49 Dose: Not Given Folic Acid (Folic Acid 1 Mg Tablet) 1 mg PO DAILY [facility] Last Admin: 04/22/22 08:26 Dose: 1 mg Gabapentin (Gabapentin 300 Mg Capsule) 600 mg PO TID [facility] Last Admin: 04/22/22 08:26 Dose: 600 mg Hydroxyzine HCl (Hydroxyzine Hcl 25 Mg Tablet) 25 mg PO Q6H PRN PRN Reason: Anxiety Last Admin: 04/21/22 21:49 Dose: 25 mg Lorazepam (Lorazepam 1 Mg Tablet) 1 mg PO Q6H [facility]; Taper Stop: 04/24/22 16:59 Last Admin: 04/22/22 04:53 Dose: 1 mg Magnesium Hydroxide (Milk Of Magnesia 30 Ml Oral.Susp) 30 ml PO DAILY PRN PRN Reason: Constipation Metronidazole (Metronidazole 0.75 % Gel 45 Gm Tube) 1 appl TOPICAL BID [facility] Last Admin: 04/22/22 09:04 Dose: 1 appl Multivitamins/Vitamin C (Multivitamin Tablet) 1 tab PO DAILY [facility] Last Admin: 04/22/22 08:27 Dose: 1 tab Naproxen (Naproxen 250 Mg Tablet) 250 mg PO BID [facility] Last Admin: 04/22/22 08:27 Dose: 250 mg Nicotine (Nicotine 21 Mg Patch.Td24) 21 mg TRANSDERMA DAILY [facility] Last Admin: 04/22/22 08:26 Dose: 21 mg Nicotine Polacrilex (Nicotine Polacrilex 2 Mg Gum) 2 mg BUCCAL Q2H PRN PRN Reason: Nicotine Cravings Last Admin: 04/21/22 15:59 Dose: 2 mg Ondansetron HCl (Ondansetron Odt 4 Mg Tab.Rapdis) 4 mg TRANSLINGU Q6H PRN PRN Reason: Nausea and Vomiting Polyethylene Glycol (Polyethylene Glycol 3350 17 Gm Powd.Pack) 17 gm PO DAILY PRN PRN Reason: Constipation Prazosin HCl (Prazosin Hcl 1 Mg Capsule) 2 mg PO BEDTIME [facility]; Protocol Last Admin: 04/21/22 21:48 Dose: 2 mg Pyridoxine HCl (Pyridoxine Hcl (Vitamin B6) 50 Mg Tablet) 50 mg PO DAILY [facility] Last Admin: 04/22/22 08:27 Dose: 50 mg Senna/Docusate Sodium (Sennosides/Docusate Sodium Tablet) 2 tab PO BEDTIME PRN PRN Reason: Constipation Thiamine HCl (Thiamine Hcl 100 Mg Tablet) 50 mg PO DAILY [facility] Last Admin: 04/22/22 08:27 Dose: 50 mg Trazodone HCl (Trazodone Hcl 50 Mg Tablet) 50 mg PO BEDTIME PRN PRN Reason: Insomnia Last Admin: 04/21/22 21:49 Dose: 50 mg Allergies Allergies Allergy/AdvReac Type Severity Reaction Status Date / Time phenobarbital AdvReac Vomiting Verified 11/12/21 15:48 Assessment & Plan Assessment & Plan (1) Major depression: Status: Acute Code(s): F32.9 - Major depressive disorder, single episode, unspecified (2) Drug overdose: Qualifiers: Encounter type: initial encounter Injury intent: intentional self-harm Qualified Code(s): T50.902A - Poisoning by unspecified drugs, medicaments and biological substances, intentional self-harm, initial encounter Status: Acute Code(s): T50.901A - Poisoning by unspecified drugs, medicaments and biological substances, accidental (unintentional), initial encounter (3) Chronic post-traumatic stress disorder (PTSD): Status: Acute Code(s): F43.12 - Post-traumatic stress disorder, chronic (4) Alcohol use disorder: Status: Chronic Assessment and Plan: 51 year old with history of depression and PSA/dependence admitted s/p OD and after observation on medicine for ETOH W/D. He continues with symptoms of the same. He is now feeling safe and future oriented and wants to get treatment again, (5) Opioid use disorder: Status: Chronic Code(s): F11.99 - Opioid use, unspecified with unspecified opioid-induced disorder Plan - Admit to . CV - Management of withdrawals with Ativan taper and CIWA monitoring. - Groups and milieu therapy - Continue psychiatric medications. Titrated GBP to help with withdrawal as well. - Discharge planning. 04/21: Zofran for nausea. Continue other medications as they are. 04/22 depressed but no SI will start taper for Ativan; has not scored much on CIWA so will DC; will increase Gabapentin to previous dose 800mg TID; will titrate Wellbturin. I spent minutes with the patient and/or on the patient floor today, greater than?50% of which was spent counseling/coordinating care. Patient educated on: diagnosis, medication risk/benefits, substance abuse and therapeutic strategies Informed Consent: understands Reason for contiued inpatient stay Substantial Risk for: rapid decompensation
--- NOTE | 2022-04-22 14:16 | PC.NURSE ---
pt became upset when this parts data writer wanted to know which bed pt wanted in the room change.. by the bathroom or by the window... upset he was asked to move into another room after pt roommate diagnosed with strep throat. he abruptly stood up and walked briskly into his room to pack. he stated he was already established in this room and was semi slamming things around his room.
[2022-04-22] MEDS: Sennosides/Docusate Sodium TABLET 2 TAB PO (16:47)
[2022-04-22 18:00] VITALS: BP 116/72; PULSE 78; TEMP 36.1; O2SAT 99
[2022-04-22] MEDS: Prazosin HCL 1 MG CAPSULE 2 MG PO (20:13)
[2022-04-22] MEDS: Gabapentin 400 MG CAPSULE 800 MG PO (20:13)
[2022-04-22] MEDS: hydrOXYzine HCL 25 MG TABLET PO (20:14)
[2022-04-22] MEDS: traZODone HCL 50 MG TABLET PO (20:14)
[2022-04-23] MEDS: LORazepam 1 MG TABLET PO ×4 (05:54→19:55)
[2022-04-23 06:00] VITALS: BP 134/61; PULSE 70; RESP 18
[2022-04-23] MEDS: Buprenorphine/Naloxone 8/2 mg FILM 2 FILM SUBLINGUAL (08:22)
[2022-04-23] MEDS: Nicotine 21 MG PATCH.TD24 TRANSDERMA (08:22)
[2022-04-23] MEDS: Gabapentin 400 MG CAPSULE 800 MG PO ×4 (08:23→19:55)
[2022-04-23] MEDS: Thiamine HCL 100 MG TABLET 50 MG PO (08:23)
[2022-04-23] MEDS: NaPROXEN 250 MG TABLET PO ×2 (08:23→19:55)
[2022-04-23] MEDS: buPROPion HCl XL 300 MG TAB.ER.24H PO (08:24)
[2022-04-23] MEDS: Pyridoxine HCl (Vitamin B6) 50 MG TABLET PO (08:24)
[2022-04-23] MEDS: Folic Acid 1 MG TABLET PO (08:24)
[2022-04-23] MEDS: Multivitamin TABLET 1 TAB PO (08:24)
[2022-04-23] MEDS: metroNIDAZOLE 0.75 % Gel 45 GM TUBE 1 APPL TOPICAL (08:26)
[2022-04-23] MEDS: buPROPion HCl XL 150 MG TAB.ER.24H PO (09:09)
[2022-04-23] MEDS: Cyclobenzaprine HCl 10 MG TABLET PO ×2 (09:15→19:57)
[2022-04-23] MEDS: Nicotine Polacrilex 2 MG GUM BUCCAL (09:15)
--- NOTE | 2022-04-23 12:31 | P.PNPSI_ITS ---
Subjective Subjective Date of Service: 04/23/22 Reason For Visit: Depression, polysubstance abuse D/O;SI Interim History: Patient reports mood is better and denies any SI at all. He is future oriented and optimistic about getting back to sobriety given his recent success in this area. Patient discussed how at a recent previous admission at [facility] he developed a good rapport with Dr. Bearden there and engaged in 1:1 therapy, talking about himself and his past which he found very helpful. Database Manager mentions that patient is with a significantly brighter affect and is more present and engaged in conversation than he has been over the past year and half working with this insurance underwriter; patient agrees and says that he feels more confident that he has a long time. Patient discussed med changes made with Dr. Bearden asked if he could get back on Vyvanse which was started at [facility] admission this past month (records corroborate this); patient said he was also started on amitriptyline instead of doxepin and Ambien which helped him sleep. Database Manager discussed risks/side effects of this medication including the risk of overdose and misuse; insurance underwriter agreed that while these medications may help him when sober (and may even help him remain sober), they remain a risk since when he has rela psed and gets depressed, he gets suicidal and has attempted overdose. Patient understands concern and is not push she about these medications. Database Manager agrees that if patient discharges to a program where his medications are monitored/supervised this would be an option Mental Status Exam Mental Status Exam Narrative: Pt is alert and oriented; behavior is cooperative, engaged and calm; patient is not in distress; dressed in casual attire, bald head, adequate hygiene; mood is described as better and affect congruent, brighter; eye contact appropriate; Speech is normal volume, rate and prosody; no psychomotor retardation present; thought process is organized and goal directed; Thought content is on tx, recovery; otherwise pertinent to relevant topics and without any delusional content, paranoid ideations or grandiosity; denies any SI/HI. There is no evidence of perceptual disturbance. Patients insight and judgment are fair. Diagnostics Vital Signs (24Hr): Vital Signs - 24 hr 04/22/22 18:00 04/23/22 06:00 Temperature 97 F Pulse Rate 78 70 Respiratory Rate 18 Blood Pressure 116/72 134/61 Pulse Oximetry 99 Oxygen Delivery Method Room Air Labs Results: 04/20/22 11:17 Medications Medications Current Medications Acetaminophen (Acetaminophen 325 Mg Tablet) 650 mg PO Q6H PRN PRN Reason: Pain, Mild (Pain Scale 1-3) Al Hydroxide/Mg Hydroxide (Magnesium Hydrox/Alum Hydrox 30 Ml Oral.Susp) 30 ml PO Q6H PRN PRN Reason: Heartburn/Nausea Buprenorphine/Naloxone (Buprenorphine/Naloxone 8/2 Mg Film) 2 film SUBLINGUAL DAILY [facility] Last Admin: 04/23/22 08:22 Dose: 2 film Bupropion HCl (Bupropion Hcl Xl 150 Mg Tab.Er.24h) 450 mg PO DAILY [facility] Cyclobenzaprine HCl (Cyclobenzaprine Hcl 10 Mg Tablet) 10 mg PO TID PRN PRN Reason: muscle spasm Last Admin: 04/23/22 09:15 Dose: 10 mg Folic Acid (Folic Acid 1 Mg Tablet) 1 mg PO DAILY [facility] Last Admin: 04/23/22 08:24 Dose: 1 mg Gabapentin (Gabapentin 400 Mg Capsule) 800 mg PO TID [facility] Last Admin: 04/23/22 08:23 Dose: 800 mg Hydroxyzine HCl (Hydroxyzine Hcl 25 Mg Tablet) 25 mg PO Q6H PRN PRN Reason: Anxiety Last Admin: 04/22/22 20:14 Dose: 25 mg Lorazepam (Lorazepam 1 Mg Tablet) 1 mg PO TID [facility]; Taper Stop: 04/27/22 14:59 Magnesium Hydroxide (Milk Of Magnesia 30 Ml Oral.Susp) 30 ml PO DAILY PRN PRN Reason: Constipation Metronidazole (Metronidazole 0.75 % Gel 45 Gm Tube) 1 appl TOPICAL BID [facility] Last Admin: 04/23/22 08:26 Dose: 1 appl Multivitamins/Vitamin C (Multivitamin Tablet) 1 tab PO DAILY [facility] Last Admin: 04/23/22 08:24 Dose: 1 tab Naproxen (Naproxen 250 Mg Tablet) 250 mg PO BID [facility] Last Admin: 04/23/22 08:23 Dose: 250 mg Nicotine (Nicotine 21 Mg Patch.Td24) 21 mg TRANSDERMA DAILY [facility] Last Admin: 04/23/22 08:22 Dose: 21 mg Nicotine Polacrilex (Nicotine Polacrilex 2 Mg Gum) 2 mg BUCCAL Q2H PRN PRN Reason: Nicotine Cravings Last Admin: 04/23/22 09:15 Dose: 2 mg Ondansetron HCl (Ondansetron Odt 4 Mg Tab.Rapdis) 4 mg TRANSLINGU Q6H PRN PRN Reason: Nausea and Vomiting Polyethylene Glycol (Polyethylene Glycol 3350 17 Gm Powd.Pack) 17 gm PO DAILY PRN PRN Reason: Constipation Prazosin HCl (Prazosin Hcl 1 Mg Capsule) 2 mg PO BEDTIME [facility]; Protocol Last Admin: 04/22/22 20:13 Dose: 2 mg Pyridoxine HCl (Pyridoxine Hcl (Vitamin B6) 50 Mg Tablet) 50 mg PO DAILY [facility] Last Admin: 04/23/22 08:24 Dose: 50 mg Senna/Docusate Sodium (Sennosides/Docusate Sodium Tablet) 2 tab PO BEDTIME PRN PRN Reason: Constipation Last Admin: 04/22/22 16:47 Dose: 2 tab Thiamine HCl (Thiamine Hcl 100 Mg Tablet) 50 mg PO DAILY [facility] Last Admin: 04/23/22 08:23 Dose: 50 mg Trazodone HCl (Trazodone Hcl 50 Mg Tablet) 50 mg PO BEDTIME PRN PRN Reason: Insomnia Last Admin: 04/22/22 20:14 Dose: 50 mg Allergies Allergies Allergy/AdvReac Type Severity Reaction Status Date / Time phenobarbital AdvReac Vomiting Verified 11/12/21 15:48 Assessment & Plan Assessment & Plan (1) Major depression: Status: Acute Code(s): F32.9 - Major depressive disorder, single episode, unspecified (2) Drug overdose: Qualifiers: Encounter type: initial encounter Injury intent: intentional self-harm Qualified Code(s): T50.902A - Poisoning by unspecified drugs, medicaments and biological substances, intentional self-harm, initial encounter Status: Acute Code(s): T50.901A - Poisoning by unspecified drugs, medicaments and biological substances, accidental (unintentional), initial encounter (3) Chronic post-traumatic stress disorder (PTSD): Status: Acute Code(s): F43.12 - Post-traumatic stress disorder, chronic (4) Alcohol use disorder: Status: Chronic Assessment and Plan: 51 year old with history of depression and PSA/dependence admitted s/p OD and after observation on medicine for ETOH W/D. He continues with symptoms of the same. He is now feeling safe and future oriented and wants to get treatment again, (5) Opioid use disorder: Status: Chronic Code(s): F11.99 - Opioid use, unspecified with unspecified opioid-induced disorder Plan HPI: 51 year old with a history of depression, Polysubstance abuse/dependence including alcohol, who is admitted with an OD on multiple medications and as a transfer from the medical floor where he was watched for complicated alcohol withdrawal. Patient reports he OD;d on several of his medications because of increased depression and suicidality in the context of recent relapse on alcohol and cocaine. He reports he was drinking a 1/5th of hard liquor and 12 pack for the past month. 04/21: Zofran for nausea. Continue other medications as they are. 04/22 depressed but no SI; will start taper for Ativan; has not scored much on CIWA so will DC; will increase Gabapentin to previous dose 800mg TID; will titrate Wellbturin. 04/23 patient's mood is better and affect is noticeably brighter. Withdrawal mostly resolved and patient on Ativan taper. Patient is optimistic about getting back to sobriety and cites recent therapeutic sessions at previous admission and recent history of sustained sobriety as anchoring experiences. Patient asks for Vyvanse, Ambien and amitriptyline having been started on these at admission at [facility] this past month. Database Manager discussed risks/side effects of patient's medication regimen including these additions, including risks of combined with substance abuse; patient understands these risks. Database Manager is open to making changes though patient's disposition will affect prescriptions given at discharge, for if he is discharged to a program/structured environment, risks become very low. -discussed patient's hip problems and need for right-sided hip replacement; patient reports recent diagnosis of degenerative disc PLAN: Admit to [facility]. [facility]; taper ativan increased gabapentin to 800 mg q.i.d. which patient was getting at last admission start amitriptyline 25 mg q.h.s. for insomnia and help with mood; patient was on this at [facility] in place of doxepin start Adderall extended release q.a.m.; Vyvanse not available Will consider Ambien; patient reports trazodone caused excessive dry mouth which resulted in cavities otherwise: - Groups and milieu therapy - Continue psychiatric medications. Titrated GBP to help with withdrawal as well. - Discharge planning. I spent minutes with the patient and/or on the patient floor today, greater than?50% of which was spent counseling/coordinating care. Patient educated on: diagnosis, medication risk/benefits, substance abuse, therapeutic strategies and medical condition Informed Consent: understands Reason for contiued inpatient stay Substantial Risk for: stable for discharge
[2022-04-23 16:23] VITALS: BP 141/83; PULSE 88; TEMP 36.3
[2022-04-23] MEDS: Prazosin HCL 1 MG CAPSULE 2 MG PO (19:55)
[2022-04-23] MEDS: Amitriptyline HCl 25 MG TABLET PO (19:57)
[2022-04-23] MEDS: hydrOXYzine HCL 25 MG TABLET PO (19:57)
[2022-04-23] MEDS: traZODone HCL 50 MG TABLET PO (19:58)
[2022-04-23 19:59] VITALS: BP 141/71; PULSE 72
[2022-04-24 08:00] VITALS: BP 130/83; PULSE 75; TEMP 36.1; O2SAT 97
[2022-04-24] MEDS: buPROPion HCl XL 150 MG TAB.ER.24H 450 MG PO (08:29)
[2022-04-24] MEDS: Buprenorphine/Naloxone 8/2 mg FILM 2 FILM SUBLINGUAL (08:29)
[2022-04-24] MEDS: Gabapentin 400 MG CAPSULE 800 MG PO ×4 (08:29→20:38)
[2022-04-24] MEDS: NaPROXEN 250 MG TABLET PO ×2 (08:30→20:40)
[2022-04-24] MEDS: Folic Acid 1 MG TABLET PO (08:30)
[2022-04-24] MEDS: Thiamine HCL 100 MG TABLET 50 MG PO (08:30)
[2022-04-24] MEDS: Pyridoxine HCl (Vitamin B6) 50 MG TABLET PO (08:30)
[2022-04-24] MEDS: Dextroamphetamine/Amphetamine XR 10 MG CAP.ER.24H 20 MG PO (08:30)
[2022-04-24] MEDS: Multivitamin TABLET 1 TAB PO (08:31)
[2022-04-24] MEDS: Nicotine 21 MG PATCH.TD24 TRANSDERMA (08:31)
[2022-04-24] MEDS: LORazepam 1 MG TABLET PO ×3 (08:35→20:39)
--- NOTE | 2022-04-24 08:44 | P.PNPSI_ITS ---
Subjective Subjective Date of Service: 04/24/22 Reason For Visit: Depression, polysubstance abuse D/O;SI Interim History: Feeling mood is good. Still has trouble sleeping and like Ambien. Mental Status Exam Mental Status Exam Narrative: Pt is alert and oriented; behavior is cooperative, engaged and calm; patient is not in distress; dressed in casual attire, bald head, adequate hygiene; mood is described as better and affect congruent, brighter; eye contact appropriate; Speech is normal volume, rate and prosody; no psychomotor retardation present; thought process is organized and goal directed; Thought content is on tx, recovery; otherwise pertinent to relevant topics and without any delusional content, paranoid ideations or grandiosity; denies any SI/HI. There is no evidence of perceptual disturbance. Patients insight and judgment are fair. Diagnostics Vital Signs (24Hr): Vital Signs - 24 hr 04/23/22 16:23 04/23/22 19:59 Temperature 97.4 F Pulse Rate 88 72 Blood Pressure 141/83 H 141/71 H Labs Results: 04/20/22 11:17 Medications Medications Current Medications Acetaminophen (Acetaminophen 325 Mg Tablet) 650 mg PO Q6H PRN PRN Reason: Pain, Mild (Pain Scale 1-3) Al Hydroxide/Mg Hydroxide (Magnesium Hydrox/Alum Hydrox 30 Ml Oral.Susp) 30 ml PO Q6H PRN PRN Reason: Heartburn/Nausea Amitriptyline HCl (Amitriptyline Hcl 25 Mg Tablet) 25 mg PO BEDTIME [facility] Last Admin: 04/23/22 19:57 Dose: 25 mg Amphetamine/Dextroamphetamine (Dextroamphetamine/Amphetamine Xr 10 Mg Cap.Er.24h) 20 mg PO DAILY [facility] Last Admin: 04/24/22 08:30 Dose: 20 mg Buprenorphine/Naloxone (Buprenorphine/Naloxone 8/2 Mg Film) 2 film SUBLINGUAL DAILY [facility] Last Admin: 04/24/22 08:29 Dose: 2 film Bupropion HCl (Bupropion Hcl Xl 150 Mg Tab.Er.24h) 450 mg PO DAILY [facility] Last Admin: 04/24/22 08:29 Dose: 450 mg Cyclobenzaprine HCl (Cyclobenzaprine Hcl 10 Mg Tablet) 10 mg PO TID PRN PRN Reason: muscle spasm Last Admin: 04/23/22 19:57 Dose: 10 mg Folic Acid (Folic Acid 1 Mg Tablet) 1 mg PO DAILY [facility] Last Admin: 04/24/22 08:30 Dose: 1 mg Gabapentin (Gabapentin 400 Mg Capsule) 800 mg PO QID [facility] Last Admin: 04/24/22 08:29 Dose: 800 mg Hydroxyzine HCl (Hydroxyzine Hcl 25 Mg Tablet) 25 mg PO Q6H PRN PRN Reason: Anxiety Last Admin: 04/23/22 19:57 Dose: 25 mg Lorazepam (Lorazepam 1 Mg Tablet) 1 mg PO TID [facility] Last Admin: 04/24/22 08:35 Dose: 1 mg Magnesium Hydroxide (Milk Of Magnesia 30 Ml Oral.Susp) 30 ml PO DAILY PRN PRN Reason: Constipation Metronidazole (Metronidazole 0.75 % Gel 45 Gm Tube) 1 appl TOPICAL BID [facility] Last Admin: 04/23/22 19:56 Dose: Not Given Multivitamins/Vitamin C (Multivitamin Tablet) 1 tab PO DAILY [facility] Last Admin: 04/24/22 08:31 Dose: 1 tab Naproxen (Naproxen 250 Mg Tablet) 250 mg PO BID [facility] Last Admin: 04/24/22 08:30 Dose: 250 mg Nicotine (Nicotine 21 Mg Patch.Td24) 21 mg TRANSDERMA DAILY [facility] Last Admin: 04/24/22 08:31 Dose: 21 mg Nicotine Polacrilex (Nicotine Polacrilex 2 Mg Gum) 2 mg BUCCAL Q2H PRN PRN Reason: Nicotine Cravings Last Admin: 04/23/22 09:15 Dose: 2 mg Ondansetron HCl (Ondansetron Odt 4 Mg Tab.Rapdis) 4 mg TRANSLINGU Q6H PRN PRN Reason: Nausea and Vomiting Polyethylene Glycol (Polyethylene Glycol 3350 17 Gm Powd.Pack) 17 gm PO DAILY PRN PRN Reason: Constipation Prazosin HCl (Prazosin Hcl 1 Mg Capsule) 2 mg PO BEDTIME [facility]; Protocol Last Admin: 04/23/22 19:55 Dose: 2 mg Pyridoxine HCl (Pyridoxine Hcl (Vitamin B6) 50 Mg Tablet) 50 mg PO DAILY [facility] Last Admin: 04/24/22 08:30 Dose: 50 mg Senna/Docusate Sodium (Sennosides/Docusate Sodium Tablet) 2 tab PO BEDTIME PRN PRN Reason: Constipation Last Admin: 04/22/22 16:47 Dose: 2 tab Thiamine HCl (Thiamine Hcl 100 Mg Tablet) 50 mg PO DAILY [facility] Last Admin: 04/24/22 08:30 Dose: 50 mg Trazodone HCl (Trazodone Hcl 50 Mg Tablet) 50 mg PO BEDTIME PRN PRN Reason: Insomnia Last Admin: 04/23/22 19:58 Dose: 50 mg Allergies Allergies Allergy/AdvReac Type Severity Reaction Status Date / Time phenobarbital AdvReac Vomiting Verified 11/12/21 15:48 Assessment & Plan Assessment & Plan (1) Major depression: Status: Acute Code(s): F32.9 - Major depressive disorder, single episode, unspecified (2) Drug overdose: Qualifiers: Encounter type: initial encounter Injury intent: intentional self-harm Qualified Code(s): T50.902A - Poisoning by unspecified drugs, medicaments and biological substances, intentional self-harm, initial encounter Status: Acute Code(s): T50.901A - Poisoning by unspecified drugs, medicaments and biological substances, accidental (unintentional), initial encounter (3) Chronic post-traumatic stress disorder (PTSD): Status: Acute Code(s): F43.12 - Post-traumatic stress disorder, chronic (4) Alcohol use disorder: Status: Chronic Assessment and Plan: 51 year old with history of depression and PSA/dependence admitted s/p OD and after observation on medicine for ETOH W/D. He continues with symptoms of the same. He is now feeling safe and future oriented and wants to get treatment again, (5) Opioid use disorder: Status: Chronic Code(s): F11.99 - Opioid use, unspecified with unspecified opioid-induced disorder Plan HPI: 51 year old with a history of depression, Polysubstance abuse/dependence including alcohol, who is admitted with an OD on multiple medications and as a transfer from the medical floor where he was watched for complicated alcohol withdrawal. Patient reports he OD;d on several of his medications because of increased depression and suicidality in the context of recent relapse on alcohol and cocaine. He reports he was drinking a 1/5th of hard liquor and 12 pack for the past month. 04/21: Zofran for nausea. Continue other medications as they are. 04/22 depressed but no SI; will start taper for Ativan; has not scored much on CIWA so will DC; will increase Gabapentin to previous dose 800mg TID; will titrate Wellbturin. 04/23 patient's mood is better and affect is noticeably brighter. Withdrawal mostly resolved and patient on Ativan taper. Patient is optimistic about getting back to sobriety and cites recent therapeutic sessions at previous admission and recent history of sustained sobriety as anchoring experiences. Patient asks for Vyvanse, Ambien and amitriptyline having been started on these at admission at [facility] this past month. Supervisor Transferring And Boxing discussed risks/side effects of patient's medication regimen including these additions, including risks of combined with substance abuse; patient understands these risks. Supervisor Transferring And [employer]ing is open to making changes though patient's disposition will affect prescriptions given at discharge, for if he is discharged to a program/structured environment, risks become very low. -discussed patient's hip problems and need for right-sided hip replacement; patient reports recent diagnosis of degenerative disc PLAN: Admit to . [facility]; taper ativan increased gabapentin to 800 mg q.i.d. which patient was getting at last admission start amitriptyline 25 mg q.h.s. for insomnia and help with mood; patient was on this at [facility] in place of doxepin start Adderall extended release q.a.m.; Vyvanse not available start Ambien 5mg qhs; patient reports trazodone caused excessive dry mouth which resulted in cavities otherwise: - Groups and milieu therapy - Continue psychiatric medications. Titrated GBP to help with withdrawal as well. - Discharge planning. I spent minutes with the patient and/or on the patient floor today, greater than?50% of which was spent counseling/coordinating care. Patient educated on: diagnosis and medication risk/benefits Informed Consent: understands Reason for contiued inpatient stay Substantial Risk for: stable for discharge
[2022-04-24] MEDS: Cyclobenzaprine HCl 10 MG TABLET PO ×3 (09:01→20:41)
[2022-04-24] MEDS: metroNIDAZOLE 0.75 % Gel 45 GM TUBE 1 APPL TOPICAL ×2 (09:02→20:40)
[2022-04-24] MEDS: Sennosides/Docusate Sodium TABLET 2 TAB PO (13:09)
[2022-04-24 18:00] VITALS: BP 146/73; PULSE 94; RESP 18; TEMP 36.1; O2SAT 98
[2022-04-24] MEDS: Amitriptyline HCl 25 MG TABLET PO (20:38)
[2022-04-24] MEDS: Prazosin HCL 1 MG CAPSULE 2 MG PO (20:40)
[2022-04-24] MEDS: Zolpidem Tartrate 5 MG TABLET PO (20:41)
[2022-04-24] MEDS: traZODone HCL 50 MG TABLET PO (20:42)
[2022-04-25 06:00] VITALS: BP 94/51; PULSE 74; RESP 16; TEMP 36.8; O2SAT 97
[2022-04-25] MEDS: Buprenorphine/Naloxone 8/2 mg FILM 2 FILM SUBLINGUAL (08:13)
[2022-04-25] MEDS: Nicotine 21 MG PATCH.TD24 TRANSDERMA (08:13)
[2022-04-25] MEDS: buPROPion HCl XL 150 MG TAB.ER.24H 450 MG PO (08:14)
[2022-04-25] MEDS: Dextroamphetamine/Amphetamine XR 10 MG CAP.ER.24H 20 MG PO (08:14)
[2022-04-25] MEDS: Pyridoxine HCl (Vitamin B6) 50 MG TABLET PO (08:15)
[2022-04-25] MEDS: Gabapentin 400 MG CAPSULE 800 MG PO ×4 (08:15→20:22)
[2022-04-25] MEDS: Folic Acid 1 MG TABLET PO (08:15)
[2022-04-25] MEDS: Multivitamin TABLET 1 TAB PO (08:15)
[2022-04-25] MEDS: NaPROXEN 250 MG TABLET PO ×2 (08:15→20:21)
[2022-04-25] MEDS: LORazepam 1 MG TABLET PO ×2 (08:15→20:21)
[2022-04-25] MEDS: Thiamine HCL 100 MG TABLET 50 MG PO (08:15)
[2022-04-25] MEDS: Cyclobenzaprine HCl 10 MG TABLET PO ×2 (09:24→20:21)
[2022-04-25] MEDS: metroNIDAZOLE 0.75 % Gel 45 GM TUBE 1 APPL TOPICAL (09:47)
--- NOTE | 2022-04-25 10:11 | P.PNPSI_ITS ---
Subjective Subjective Date of Service: 04/25/22 Reason For Visit: Depression, polysubstance abuse D/O;SI Interim History: Mood remains improved, no SI; discussed how Ambien helps best. Hopeful for program but anxious about not getting into one. Asks for increase in Prazosin which is dose he said most helpful Mental Status Exam Mental Status Exam Narrative: Pt is alert and oriented; behavior is cooperative, engaged and calm; patient is not in distress; dressed in casual attire, bald head, adequate hygiene; mood is described as ok and affect congruent; eye contact appropriate; Speech is normal volume, rate and prosody; no psychomotor retardation present; thought process is organized and goal directed; Thought content is on tx, recovery; otherwise pertinent to relevant topics and without any delusional content, paranoid ideations or grandiosity; denies any SI/HI. There is no evidence of perceptual disturbance. Patients insight and judgment are fair. Diagnostics Vital Signs (24Hr): Vital Signs - 24 hr 04/24/22 18:00 Temperature 96.9 F Pulse Rate 94 Respiratory Rate 18 Blood Pressure 146/73 H Pulse Oximetry 98 Oxygen Delivery Method Room Air Labs Results: 04/20/22 11:17 Medications Medications Current Medications Acetaminophen (Acetaminophen 325 Mg Tablet) 650 mg PO Q6H PRN PRN Reason: Pain, Mild (Pain Scale 1-3) Al Hydroxide/Mg Hydroxide (Magnesium Hydrox/Alum Hydrox 30 Ml Oral.Susp) 30 ml PO Q6H PRN PRN Reason: Heartburn/Nausea Amitriptyline HCl (Amitriptyline Hcl 25 Mg Tablet) 25 mg PO BEDTIME [facility] Last Admin: 04/24/22 20:38 Dose: 25 mg Amphetamine/Dextroamphetamine (Dextroamphetamine/Amphetamine Xr 10 Mg Cap.Er.24h) 20 mg PO DAILY [facility] Last Admin: 04/25/22 08:14 Dose: 20 mg Buprenorphine/Naloxone (Buprenorphine/Naloxone 8/2 Mg Film) 2 film SUBLINGUAL DAILY [facility] Last Admin: 04/25/22 08:13 Dose: 2 film Bupropion HCl (Bupropion Hcl Xl 150 Mg Tab.Er.24h) 450 mg PO DAILY [facility] Last Admin: 04/25/22 08:14 Dose: 450 mg Cyclobenzaprine HCl (Cyclobenzaprine Hcl 10 Mg Tablet) 10 mg PO TID PRN PRN Reason: muscle spasm Last Admin: 04/25/22 09:24 Dose: 10 mg Folic Acid (Folic Acid 1 Mg Tablet) 1 mg PO DAILY [facility] Last Admin: 04/25/22 08:15 Dose: 1 mg Gabapentin (Gabapentin 400 Mg Capsule) 800 mg PO QID [facility] Last Admin: 04/25/22 08:15 Dose: 800 mg Hydroxyzine HCl (Hydroxyzine Hcl 25 Mg Tablet) 25 mg PO Q6H PRN PRN Reason: Anxiety Last Admin: 04/23/22 19:57 Dose: 25 mg Lorazepam (Lorazepam 1 Mg Tablet) 1 mg PO TID [facility] Last Admin: 04/25/22 08:15 Dose: 1 mg Magnesium Hydroxide (Milk Of Magnesia 30 Ml Oral.Susp) 30 ml PO DAILY PRN PRN Reason: Constipation Metronidazole (Metronidazole 0.75 % Gel 45 Gm Tube) 1 appl TOPICAL BID [facility] Last Admin: 04/25/22 09:47 Dose: 1 appl Multivitamins/Vitamin C (Multivitamin Tablet) 1 tab PO DAILY [facility] Last Admin: 04/25/22 08:15 Dose: 1 tab Naproxen (Naproxen 250 Mg Tablet) 250 mg PO BID [facility] Last Admin: 04/25/22 08:15 Dose: 250 mg Nicotine (Nicotine 21 Mg Patch.Td24) 21 mg TRANSDERMA DAILY [facility] Last Admin: 04/25/22 08:13 Dose: 21 mg Nicotine Polacrilex (Nicotine Polacrilex 2 Mg Gum) 2 mg BUCCAL Q2H PRN PRN Reason: Nicotine Cravings Last Admin: 04/23/22 09:15 Dose: 2 mg Ondansetron HCl (Ondansetron Odt 4 Mg Tab.Rapdis) 4 mg TRANSLINGU Q6H PRN PRN Reason: Nausea and Vomiting Polyethylene Glycol (Polyethylene Glycol 3350 17 Gm Powd.Pack) 17 gm PO DAILY PRN PRN Reason: Constipation Prazosin HCl (Prazosin Hcl 1 Mg Capsule) 2 mg PO BEDTIME [facility]; Protocol Last Admin: 04/24/22 20:40 Dose: 2 mg Pyridoxine HCl (Pyridoxine Hcl (Vitamin B6) 50 Mg Tablet) 50 mg PO DAILY [facility] Last Admin: 04/25/22 08:15 Dose: 50 mg Senna/Docusate Sodium (Sennosides/Docusate Sodium Tablet) 2 tab PO BEDTIME PRN PRN Reason: Constipation Last Admin: 04/24/22 13:09 Dose: 2 tab Thiamine HCl (Thiamine Hcl 100 Mg Tablet) 50 mg PO DAILY [facility] Last Admin: 04/25/22 08:15 Dose: 50 mg Trazodone HCl (Trazodone Hcl 50 Mg Tablet) 50 mg PO BEDTIME PRN PRN Reason: Insomnia Last Admin: 04/24/22 20:42 Dose: 50 mg Zolpidem Tartrate (Zolpidem Tartrate 5 Mg Tablet) 5 mg PO BEDTIME [facility] Last Admin: 04/24/22 20:41 Dose: 5 mg Allergies Allergies Allergy/AdvReac Type Severity Reaction Status Date / Time phenobarbital AdvReac Vomiting Verified 11/12/21 15:48 Assessment & Plan Assessment & Plan (1) Major depression: Status: Acute Code(s): F32.9 - Major depressive disorder, single episode, unspecified (2) Drug overdose: Qualifiers: Encounter type: initial encounter Injury intent: intentional self-harm Qualified Code(s): T50.902A - Poisoning by unspecified drugs, medicaments and biological substances, intentional self-harm, initial encounter Status: Acute Code(s): T50.901A - Poisoning by unspecified drugs, medicaments and biological substances, accidental (unintentional), initial encounter (3) Chronic post-traumatic stress disorder (PTSD): Status: Acute Code(s): F43.12 - Post-traumatic stress disorder, chronic (4) Alcohol use disorder: Status: Chronic Assessment and Plan: 51 year old with history of depression and PSA/dependence admitted s/p OD and after observation on medicine for ETOH W/D. He continues with symptoms of the same. He is now feeling safe and future oriented and wants to get treatment again, (5) Opioid use disorder: Status: Chronic Code(s): F11.99 - Opioid use, unspecified with unspecified opioid-induced disorder Plan HPI: 51 year old with a history of depression, Polysubstance abuse/dependence inc luding alcohol, who is admitted with an OD on multiple medications and as a transfer from the medical floor where he was watched for complicated alcohol withdrawal. Patient reports he OD;d on several of his medications because of increased depression and suicidality in the context of recent relapse on alcohol and cocaine. He reports he was drinking a 1/5th of hard liquor and 12 pack for the past month. 04/21: Zofran for nausea. Continue other medications as they are. 04/22 depressed but no SI; will start taper for Ativan; has not scored much on CIWA so will DC; will increase Gabapentin to previous dose 800mg TID; will titrate Wellbturin. 04/23 patient's mood is better and affect is noticeably brighter. Withdrawal mostly resolved and patient on Ativan taper. Patient is optimistic about getting back to sobriety and cites recent therapeutic sessions at previous admission and recent history of sustained sobriety as anchoring experiences. Patient asks for Vyvanse, Ambien and amitriptyline having been started on these at admission at [facility] this past month. Orthopedic Shoe Maker discussed risks/side effects of patient's medication regimen including these additions, including risks of combined with substance abuse; patient understands these risks. Orthopedic Shoe Maker is open to making changes though patient's disposition will affect prescriptions given at discharge, for if he is discharged to a program/structured environment, risks become very low. -discussed patient's hip problems and need for right-sided hip replacement; patient reports recent diagnosis of degenerative disc 04/25 remains stable PLAN: Admit to M5. CV Dc Ciwa; taper ativan Increase Prazosin Continue gabapentin to 800 mg q.i.d. which patient was getting at last admission Continue amitriptyline 25 mg q.h.s. for insomnia and help with mood; patient was on this at [facility] in place of doxepin Continue Adderall extended release q.a.m.; Vyvanse not available Continue Ambien 5mg qhs; patient reports trazodone caused excessive dry mouth which resulted in cavities otherwise: - Groups and milieu therapy - Continue psychiatric medications. Titrated GBP to help with withdrawal as well. - Discharge planning. I spent minutes with the patient and/or on the patient floor today, greater than?50% of which was spent counseling/coordinating care. Patient educated on: diagnosis, medication risk/benefits and substance abuse Informed Consent: understands Reason for contiued inpatient stay Substantial Risk for: rapid decompensation
[2022-04-25] MEDS: Sennosides/Docusate Sodium TABLET 2 TAB PO (14:51)
[2022-04-25] MEDS: hydrOXYzine HCL 25 MG TABLET PO ×2 (14:51→20:21)
[2022-04-25] MEDS: Zolpidem Tartrate 5 MG TABLET PO (20:21)
[2022-04-25] MEDS: Amitriptyline HCl 25 MG TABLET PO (20:21)
[2022-04-25] MEDS: Prazosin HCL 1 MG CAPSULE 3 MG PO (20:21)
[2022-04-25] MEDS: traZODone HCL 50 MG TABLET PO (20:21)
[2022-04-25 20:29] VITALS: BP 155/80; PULSE 75
[2022-04-26 08:43] VITALS: BP 112/62; PULSE 76; RESP 16; TEMP 36.8; O2SAT 99
[2022-04-26] MEDS: Gabapentin 400 MG CAPSULE 800 MG PO ×4 (08:44→20:25)
[2022-04-26] MEDS: Nicotine 21 MG PATCH.TD24 TRANSDERMA (08:44)
[2022-04-26] MEDS: Buprenorphine/Naloxone 8/2 mg FILM 2 FILM SUBLINGUAL (08:44)
[2022-04-26] MEDS: metroNIDAZOLE 0.75 % Gel 45 GM TUBE 1 APPL TOPICAL (08:44)
[2022-04-26] MEDS: Cyclobenzaprine HCl 10 MG TABLET PO ×3 (08:45→20:26)
[2022-04-26] MEDS: Pyridoxine HCl (Vitamin B6) 50 MG TABLET PO (08:45)
[2022-04-26] MEDS: Thiamine HCL 100 MG TABLET 50 MG PO (08:45)
[2022-04-26] MEDS: Folic Acid 1 MG TABLET PO (08:45)
[2022-04-26] MEDS: Dextroamphetamine/Amphetamine XR 10 MG CAP.ER.24H 20 MG PO (08:45)
[2022-04-26] MEDS: Multivitamin TABLET 1 TAB PO (08:45)
[2022-04-26] MEDS: LORazepam 1 MG TABLET PO ×2 (08:45→20:26)
[2022-04-26] MEDS: NaPROXEN 250 MG TABLET PO ×2 (08:46→20:25)
[2022-04-26] MEDS: buPROPion HCl XL 150 MG TAB.ER.24H 450 MG PO (08:46)
[2022-04-26] MEDS: hydrOXYzine HCL 25 MG TABLET PO ×2 (15:06→20:25)
[2022-04-26] MEDS: Nicotine Polacrilex 2 MG GUM BUCCAL (17:05)
--- NOTE | 2022-04-26 18:00 | P.PNPSI_ITS ---
Subjective Subjective Date of Service: 04/26/22 Reason For Visit: Depression, polysubstance abuse D/O;SI Interim History: pt anxious about potential of not getting into a program. He says however is able to cope and feels that he remains overall much stronger than he's been in the past. Discussed options and pt named a few places he's heard of that he'll try to call. Says groups are helpful and he's finding ways to distract himself from his anxiety Mental Status Exam Mental Status Exam Narrative: Pt is alert and oriented; behavior is cooperative, engaged and calm; patient is not in distress; dressed in casual attire, bald head, adequate hygiene; mood is described as little anxious and affect congruent; eye contact appropriate; Speech is normal volume, rate and prosody; no psychomotor retardation present; thought process is organized and goal directed; Thought content is on tx, recovery; otherwise pertinent to relevant topics and without any delusional content, paranoid ideations or grandiosity; denies any SI/HI. There is no evidence of perceptual disturbance. Patients insight and judgment are fair. Diagnostics Vital Signs (24Hr): Vital Signs - 24 hr 04/25/22 20:29 04/26/22 08:43 Temperature 98.2 F Pulse Rate 75 76 Respiratory Rate 16 Blood Pressure 155/80 H 112/62 Pulse Oximetry 99 Oxygen Delivery Method Room Air Labs Results: 04/20/22 11:17 Medications Medications Current Medications Acetaminophen (Acetaminophen 325 Mg Tablet) 650 mg PO Q6H PRN PRN Reason: Pain, Mild (Pain Scale 1-3) Al Hydroxide/Mg Hydroxide (Magnesium Hydrox/Alum Hydrox 30 Ml Oral.Susp) 30 ml PO Q6H PRN PRN Reason: Heartburn/Nausea Amitriptyline HCl (Amitriptyline Hcl 25 Mg Tablet) 25 mg PO BEDTIME [facility] Last Admin: 04/25/22 20:21 Dose: 25 mg Amphetamine/Dextroamphetamine (Dextroamphetamine/Amphetamine Xr 10 Mg Cap.Er.24h) 20 mg PO DAILY [facility] Last Admin: 04/26/22 08:45 Dose: 20 mg Buprenorphine/Naloxone (Buprenorphine/Naloxone 8/2 Mg Film) 2 film SUBLINGUAL DAILY [facility] Last Admin: 04/26/22 08:44 Dose: 2 film Bupropion HCl (Bupropion Hcl Xl 150 Mg Tab.Er.24h) 450 mg PO DAILY [facility] Last Admin: 04/26/22 08:46 Dose: 450 mg Cyclobenzaprine HCl (Cyclobenzaprine Hcl 10 Mg Tablet) 10 mg PO TID PRN PRN Reason: muscle spasm Last Admin: 04/26/22 15:06 Dose: 10 mg Folic Acid (Folic Acid 1 Mg Tablet) 1 mg PO DAILY [facility] Last Admin: 04/26/22 08:45 Dose: 1 mg Gabapentin (Gabapentin 400 Mg Capsule) 800 mg PO QID [facility] Last Admin: 04/26/22 17:05 Dose: 800 mg Hydroxyzine HCl (Hydroxyzine Hcl 25 Mg Tablet) 25 mg PO Q6H PRN PRN Reason: Anxiety Last Admin: 04/26/22 15:06 Dose: 25 mg Lorazepam (Lorazepam 1 Mg Tablet) 1 mg PO BID [facility] Last Admin: 04/26/22 08:45 Dose: 1 mg Magnesium Hydroxide (Milk Of Magnesia 30 Ml Oral.Susp) 30 ml PO DAILY PRN PRN Reason: Constipation Metronidazole (Metronidazole 0.75 % Gel 45 Gm Tube) 1 appl TOPICAL BID [facility] Last Admin: 04/26/22 08:44 Dose: 1 appl Multivitamins/Vitamin C (Multivitamin Tablet) 1 tab PO DAILY [facility] Last Admin: 04/26/22 08:45 Dose: 1 tab Naproxen (Naproxen 250 Mg Tablet) 250 mg PO BID [facility] Last Admin: 04/26/22 08:46 Dose: 250 mg Nicotine (Nicotine 21 Mg Patch.Td24) 21 mg TRANSDERMA DAILY [facility] Last Admin: 04/26/22 08:44 Dose: 21 mg Nicotine Polacrilex (Nicotine Polacrilex 2 Mg Gum) 2 mg BUCCAL Q2H PRN PRN Reason: Nicotine Cravings Last Admin: 04/26/22 17:05 Dose: 2 mg Ondansetron HCl (Ondansetron Odt 4 Mg Tab.Rapdis) 4 mg TRANSLINGU Q6H PRN PRN Reason: Nausea and Vomiting Polyethylene Glycol (Polyethylene Glycol 3350 17 Gm Powd.Pack) 17 gm PO DAILY PRN PRN Reason: Constipation Prazosin HCl (Prazosin Hcl 1 Mg Capsule) 3 mg PO BEDTIME [facility]; Protocol Last Admin: 04/25/22 20:21 Dose: 3 mg Pyridoxine HCl (Pyridoxine Hcl (Vitamin B6) 50 Mg Tablet) 50 mg PO DAILY [facility] Last Admin: 04/26/22 08:45 Dose: 50 mg Senna/Docusate Sodium (Sennosides/Docusate Sodium Tablet) 2 tab PO BEDTIME PRN PRN Reason: Constipation Last Admin: 04/25/22 14:51 Dose: 2 tab Thiamine HCl (Thiamine Hcl 100 Mg Tablet) 50 mg PO DAILY [facility] Last Admin: 04/26/22 08:45 Dose: 50 mg Trazodone HCl (Trazodone Hcl 50 Mg Tablet) 50 mg PO BEDTIME PRN PRN Reason: Insomnia Last Admin: 04/25/22 20:21 Dose: 50 mg Zolpidem Tartrate (Zolpidem Tartrate 5 Mg Tablet) 5 mg PO BEDTIME [facility] Last Admin: 04/25/22 20:21 Dose: 5 mg Allergies Allergies Allergy/AdvReac Type Severity Reaction Status Date / Time phenobarbital AdvReac Vomiting Verified 11/12/21 15:48 Assessment & Plan Assessment & Plan (1) Major depression: Status: Acute Code(s): F32.9 - Major depressive disorder, single episode, unspecified (2) Drug overdose: Qualifiers: Encounter type: initial encounter Injury intent: intentional self-harm Qualified Code(s): T50.902A - Poisoning by unspecified drugs, medicaments and biological substances, intentional self-harm, initial encounter Status: Acute Code(s): T50.901A - Poisoning by unspecified drugs, medicaments and biological substances, accidental (unintentional), initial encounter (3) Chronic post-traumatic stress disorder (PTSD): Status: Acute Code(s): F43.12 - Post-traumatic stress disorder, chronic (4) Alcohol use disorder: Status: Chronic Assessment and Plan: 51 year old with history of depression and PSA/dependence admitted s/p OD and after observation on medicine for ETOH W/D. He continues with symptoms of the same. He is now feeling safe and future oriented and wants to get treatment again, (5) Opioid use disorder: Status: Chronic Code(s): F11.99 - Opioid use, unspecified with unspecified opioid-induced disorder Plan HPI: 51 year old with a history of depression, Polysubstance abuse/dependence including alcohol, who is admitted with an OD on multiple medications and as a transfer from the medical floor where he was watched for complicated alcohol withdrawal. Patient reports he OD;d on several of his medications because of increased depression and suicidality in the context of recent relapse on alcohol and cocaine. He reports he was drinking a 1/5th of hard liquor and 12 pack for the past month. 04/21: Zofran for nausea. Continue other medications as they are. 04/22 depressed but no SI; will start taper for Ativan; has not scored much on CIWA so will DC; will increase Gabapentin to previous dose 800mg TID; will titrate Wellbturin. 04/23 patient's mood is better and affect is noticeably brighter. Withdrawal mostly resolved and patient on Ativan taper. Patient is optimistic about getting back to sobriety and cites recent therapeutic sessions at previous admission and recent history of sustained sobriety as anchoring experiences. Patient asks for Vyvanse, Ambien and amitriptyline having been started on these at admission at [facility] this past month. Ems Instructor discussed risks/side effects of patient's medication regimen including these additions, including risks of combined with substance abuse; patient understands these risks. Ems Instructor is open to making changes though patient's disposition will affect prescriptions given at discharge, for if he is discharged to a program/structured environment, risks become very low. -discussed patient's hip problems and need for right-sided hip replacement; patient reports recent diagnosis of degenerative disc 04/25 remains stable 04/26 no changes PLAN: ?Admit to M5. CV ?Dc Ciwa; taper ativan Continue Prazosin 3mg qhs Continue gabapentin to 800 mg q.i.d. which patient was getting at last admission Continue amitriptyline 25 mg q.h.s. for insomnia and help with mood; patient was on this at [facility] in place of doxepin? Continue Adderall extended release q.a.m.; Vyvanse not available Continue Ambien 5mg qhs; patient reports trazodone caused excessive dry mouth which resulted in cavities otherwise:? - Groups and milieu therapy - Continue psychiatric medications. Titrated GBP to help with withdrawal as well.? - Discharge planning.? I spent minutes with the patient and/or on the patient floor today, greater than?50% of which was spent counseling/coordinating care. Patient educated on: diagnosis, substance abuse and therapeutic strategies Informed Consent: understands Reason for contiued inpatient stay Substantial Risk for: rapid decompensation
[2022-04-26 20:20] VITALS: BP 133/88; PULSE 81; RESP 16; TEMP 36.1
[2022-04-26] MEDS: Prazosin HCL 1 MG CAPSULE 3 MG PO (20:25)
[2022-04-26] MEDS: Zolpidem Tartrate 5 MG TABLET PO (20:25)
[2022-04-26] MEDS: traZODone HCL 50 MG TABLET PO (20:26)
[2022-04-26] MEDS: Amitriptyline HCl 25 MG TABLET PO (20:26)
--- NOTE | 2022-04-27 07:28 | HO.PSYCHPN ---
Documented by User: Rachele Lopez MD 04/28/22 08:33 Subjective Subjective Date of Service: 04/27/22 Reason For Visit: Depression, polysubstance abuse D/O;SI Subjective Notes: Conditional Voluntary Healthcare Proxy: No Guardianship: No Medical Problems Affecting Mental Status: Yes (pain needs hip replacement- wakes him up at night) Interim History: Pt isolative to room by nursing report, pt reports going to group but only after doing stretchs in am - , feels better now that detoxed- denies si , Medication Compliance: Yes Side effects from medications: No Attending Groups: Intermittent Review of Systems Acute medical concerns: No Review of Systems Review of Systems hip pain Mental Status Exam Mental Status Exam Patient Appearance: Well Grooomed and Appropriate Patient Orientation: Person, Place and Time Level of Consciousness: Awake and Appropriate Patient Behavior: Appropriate and Isolative Mood Description: Calm Affect Description: Blunted Patient Cognition Impaired: No Ability to Follow Directions: Fair Speech Pattern: Clear Hallucinations: None Delusions: Not Present Thought Process: Intact and Goal Oriented Thought Content: positive for Goal Oriented Depressive Symptoms: Muscle Tension, Difficulty Sleeping and Muscle Pain Judgement: Fair Diagnostics Vital Signs (24Hr): Vital Signs - 24 hr 04/26/22 08:43 04/26/22 20:20 Temperature 98.2 F 97 F Pulse Rate 76 81 Respiratory Rate 16 16 Blood Pressure 112/62 133/88 Pulse Oximetry 99 Oxygen Delivery Method Room Air Labs Results: 04/20/22 11:17 Medications Medications Current Medications Acetaminophen (Acetaminophen 325 Mg Tablet) 650 mg PO Q6H PRN PRN Reason: Pain, Mild (Pain Scale 1-3) Al Hydroxide/Mg Hydroxide (Magnesium Hydrox/Alum Hydrox 30 Ml Oral.Susp) 30 ml PO Q6H PRN PRN Reason: Heartburn/Nausea Amitriptyline HCl (Amitriptyline Hcl 25 Mg Tablet) 25 mg PO BEDTIME [facility] Last Admin: 04/26/22 20:26 Dose: 25 mg Amphetamine/Dextroamphetamine (Dextroamphetamine/Amphetamine Xr 10 Mg Cap.Er.24h) 20 mg PO DAILY [facility] Last Admin: 04/26/22 08:45 Dose: 20 mg Buprenorphine/Naloxone (Buprenorphine/Naloxone 8/2 Mg Film) 2 film SUBLINGUAL DAILY [facility] Last Admin: 04/26/22 08:44 Dose: 2 film Bupropion HCl (Bupropion Hcl Xl 150 Mg Tab.Er.24h) 450 mg PO DAILY [facility] Last Admin: 04/26/22 08:46 Dose: 450 mg Cyclobenzaprine HCl (Cyclobenzaprine Hcl 10 Mg Tablet) 10 mg PO TID PRN PRN Reason: muscle spasm Last Admin: 04/26/22 20:26 Dose: 10 mg Folic Acid (Folic Acid 1 Mg Tablet) 1 mg PO DAILY [facility] Last Admin: 04/26/22 08:45 Dose: 1 mg Gabapentin (Gabapentin 400 Mg Capsule) 800 mg PO QID [facility] Last Admin: 04/26/22 20:25 Dose: 800 mg Hydroxyzine HCl (Hydroxyzine Hcl 25 Mg Tablet) 25 mg PO Q6H PRN PRN Reason: Anxiety Last Admin: 04/26/22 20:25 Dose: 25 mg Lorazepam (Lorazepam 1 Mg Tablet) 1 mg PO BID [facility] Last Admin: 04/26/22 20:26 Dose: 1 mg Magnesium Hydroxide (Milk Of Magnesia 30 Ml Oral.Susp) 30 ml PO DAILY PRN PRN Reason: Constipation Metronidazole (Metronidazole 0.75 % Gel 45 Gm Tube) 1 appl TOPICAL BID [facility] Last Admin: 04/26/22 20:49 Dose: Not Given Multivitamins/Vitamin C (Multivitamin Tablet) 1 tab PO DAILY [facility] Last Admin: 04/26/22 08:45 Dose: 1 tab Naproxen (Naproxen 250 Mg Tablet) 250 mg PO BID [facility] Last Admin: 04/26/22 20:25 Dose: 250 mg Nicotine (Nicotine 21 Mg Patch.Td24) 21 mg TRANSDERMA DAILY [facility] Last Admin: 04/26/22 08:44 Dose: 21 mg Nicotine Polacrilex (Nicotine Polacrilex 2 Mg Gum) 2 mg BUCCAL Q2H PRN PRN Reason: Nicotine Cravings Last Admin: 04/26/22 17:05 Dose: 2 mg Ondansetron HCl (Ondansetron Odt 4 Mg Tab.Rapdis) 4 mg TRANSLINGU Q6H PRN PRN Reason: Nausea and Vomiting Polyethylene Glycol (Polyethylene Glycol 3350 17 Gm Powd.Pack) 17 gm PO DAILY PRN PRN Reason: Constipation Prazosin HCl (Prazosin Hcl 1 Mg Capsule) 3 mg PO BEDTIME [facility]; Protocol Last Admin: 04/26/22 20:25 Dose: 3 mg Pyridoxine HCl (Pyridoxine Hcl (Vitamin B6) 50 Mg Tablet) 50 mg PO DAILY [facility] Last Admin: 04/26/22 08:45 Dose: 50 mg Senna/Docusate Sodium (Sennosides/Docusate Sodium Tablet) 2 tab PO BEDTIME PRN PRN Reason: Constipation Last Admin: 04/25/22 14:51 Dose: 2 tab Thiamine HCl (Thiamine Hcl 100 Mg Tablet) 50 mg PO DAILY [facility] Last Admin: 04/26/22 08:45 Dose: 50 mg Trazodone HCl (Trazodone Hcl 50 Mg Tablet) 50 mg PO BEDTIME PRN PRN Reason: Insomnia Last Admin: 04/26/22 20:26 Dose: 50 mg Zolpidem Tartrate (Zolpidem Tartrate 5 Mg Tablet) 5 mg PO BEDTIME [facility] Last Admin: 04/26/22 20:25 Dose: 5 mg Allergies Allergies Allergy/AdvReac Type Severity Reaction Status Date / Time phenobarbital AdvReac Vomiting Verified 11/12/21 15:48 Assessment & Plan Assessment & Plan (1) Major depression: Status: Acute Code(s): F32.9 - Major depressive disorder, single episode, unspecified (2) Drug overdose: Qualifiers: Encounter type: initial encounter Injury intent: intentional self-harm Qualified Code(s): T50.902A - Poisoning by unspecified drugs, medicaments and biological substances, intentional self-harm, initial encounter Status: Acute Code(s): T50.901A - Poisoning by unspecified drugs, medicaments and biological substances, accidental (unintentional), initial encounter (3) Chronic post-traumatic stress disorder (PTSD): Status: Acute Code(s): F43.12 - Post-traumatic stress disorder, chronic (4) Alcohol use disorder: Status: Chronic Assessment and Plan: 51 year old with history of depression and PSA/dependence admitted s/p OD and after observation on medicine for ETOH W/D. He continues with symptoms of the same. He is now feeling safe and future oriented and wants to get treatment again, (5) Opioid use disorder: Status: Chronic Code(s): F11.99 - Opioid use, unspecified with unspecified opioid-induced disorder Plan HPI: 51 year old with a history of depression, Polysubstance abuse/dependence including alcohol, who is admitted with an OD on multiple medications and as a transfer from the medical floor where he was watched for complicated alcohol withdrawal. Patient reports he OD;d on several of his medications because of increased depression and suicidality in the context of recent relapse on alcohol and cocaine. He reports he was drinking a 1/5th of hard liquor and 12 pack for the past month. 04/21: Zofran for nausea. Continue other medications as they are. 04/22 depressed but no SI; will start taper for Ativan; has not scored much on CIWA so will DC; will increase Gabapentin to previous dose 800mg TID; will titrate Wellbturin. 04/23 patient's mood is better and affect is noticeably brighter. Withdrawal mostly resolved and patient on Ativan taper. Patient is optimistic about getting back to sobriety and cites recent therapeutic sessions at previous admission and recent history of sustained sobriety as anchoring experiences. Patient asks for Vyvanse, Ambien and amitriptyline having been started on these at admission at [facility] this past month. Siderographer discussed risks/side effects of patient's medication regimen including these additions, including risks of combined with substance abuse; patient understands these risks. Siderographer is open to making changes though patient's disposition will affect prescriptions given at discharge, for if he is discharged to a program/structured environment, risks become very low. -discussed patient's hip problems and need for right-sided hip replacement; patient reports recent diagnosis of degenerative disc PLAN: Admit to M5. CV Dc Ciwa; taper ativan increased gabapentin to 800 mg q.i.d. which patient was getting at last admission start amitriptyline 25 mg q.h.s. for insomnia and help with mood; patient was on this at [facility] in place of doxepin start Adderall extended release q.a.m.; Vyvanse not available start Ambien 5mg qhs; patient reports trazodone caused excessive dry mouth which resulted in cavities otherwise: - Groups and milieu therapy - Continue psychiatric medications. Titrated GBP to help with withdrawal as well. - Discharge planning. I spent minutes with the patient and/or on the patient floor today, greater than?50% of which was spent counseling/coordinating care. Patient educated on: substance abuse and therapeutic strategies Informed Consent: understands Reason for contiued inpatient stay Substantial Risk for: harm to self and rapid decompensation Documented by User: Alexander Rose MD 04/29/22 10:39 Subjective Subjective Reason For Visit: Depression, polysubstance abuse D/O;SI Diagnostics Labs Results: 04/20/22 11:17 Assessment & Plan Assessment & Plan (1) Major depression: Status: Acute Code(s): F32.9 - Major depressive disorder, single episode, unspecified (2) Drug overdose: Qualifiers: Encounter type: initial encounter Injury intent: intentional self-harm Qualified Code(s): T50.902A - Poisoning by unspecified drugs, medicaments and biological substances, intentional self-harm, initial encounter Status: Acute Code(s): T50.901A - Poisoning by unspecified drugs, medicaments and biological substances, accidental (unintentional), initial encounter (3) Chronic post-traumatic stress disorder (PTSD): Status: Acute Code(s): F43.12 - Post-traumatic stress disorder, chronic (4) Alcohol use disorder: Status: Chronic (5) Opioid use disorder: Status: Chronic Code(s): F11.99 - Opioid use, unspecified with unspecified opioid-induced disorder Plan HPI: 51 year old with a history of depression, Polysubstance abuse/dependence including alcohol, who is admitted with an OD on multiple medications and as a transfer from the medical floor where he was watched for complicated alcohol withdrawal. Patient reports he OD;d on several of his medications because of increased depression and suicidality in the context of recent relapse on alcohol and cocaine. He reports he was drinking a 1/5th of hard liquor and 12 pack for the past month. 04/21: Zofran for nausea. Continue other medications as they are. 04/22 depressed but no SI; will start taper for Ativan; has not scored much on CIWA so will DC; will increase Gabapentin to previous dose 800mg TID; will titrate Wellbturin. 04/23 patient's mood is better and affect is noticeably brighter. Withdrawal mostly resolved and patient on Ativan taper. Patient is optimistic about getting back to sobriety and cites recent therapeutic sessions at previous admission and recent history of sustained sobriety as anchoring experiences. Patient asks for Vyvanse, Ambien and amitriptyline having been started on these at admission at [facility] this past month. Siderographer discussed risks/side effects of patient's medication regimen including these additions, including risks of combined with substance abuse; patient understands these risks. Siderographer is open to making changes though patient's disposition will affect prescriptions given at discharge, for if he is discharged to a program/structured environment, risks become very low. -discussed patient's hip problems and need for right-sided hip replacement; patient reports recent diagnosis of degenerative disc 04/25 remains stable 04/26 no changes PLAN: ?Admit to M5. CV ?Dc Ciwa; taper ativan Continue Prazosin 3mg qhs Continue gabapentin to 800 mg q.i.d. which patient was getting at last admission Continue amitriptyline 25 mg q.h.s. for insomnia and help with mood; patient was on this at [facility] in place of doxepin? Continue Adderall extended release q.a.m.; Vyvanse not available Continue Ambien 5mg qhs; patient reports trazodone caused excessive dry mouth which resulted in cavities otherwise: - Groups and milieu therapy - Continue psychiatric medications. Titrated GBP to help with withdrawal as well. - Discharge planning.
[2022-04-27] MEDS: Nicotine 21 MG PATCH.TD24 TRANSDERMA (09:06)
[2022-04-27] MEDS: buPROPion HCl XL 150 MG TAB.ER.24H 450 MG PO (09:07)
[2022-04-27] MEDS: NaPROXEN 250 MG TABLET PO ×2 (09:07→21:21)
[2022-04-27] MEDS: Thiamine HCL 100 MG TABLET 50 MG PO (09:08)
[2022-04-27] MEDS: Dextroamphetamine/Amphetamine XR 10 MG CAP.ER.24H 20 MG PO (09:08)
[2022-04-27] MEDS: Buprenorphine/Naloxone 8/2 mg FILM 2 FILM SUBLINGUAL (09:09)
[2022-04-27] MEDS: Gabapentin 400 MG CAPSULE 800 MG PO ×4 (09:09→21:25)
[2022-04-27] MEDS: Folic Acid 1 MG TABLET PO (09:09)
[2022-04-27] MEDS: LORazepam 1 MG TABLET PO ×2 (09:09→21:25)
[2022-04-27] MEDS: Pyridoxine HCl (Vitamin B6) 50 MG TABLET PO (09:09)
[2022-04-27] MEDS: Multivitamin TABLET 1 TAB PO (09:09)
[2022-04-27 09:45] VITALS: BP 117/72; PULSE 71; RESP 16; TEMP 36.7; O2SAT 96
[2022-04-27] MEDS: metroNIDAZOLE 0.75 % Gel 45 GM TUBE 1 APPL TOPICAL (09:59)
[2022-04-27] MEDS: Nicotine Polacrilex 2 MG GUM BUCCAL ×2 (13:03→15:42)
[2022-04-27] MEDS: hydrOXYzine HCL 25 MG TABLET PO ×2 (13:03→21:24)
[2022-04-27] MEDS: Cyclobenzaprine HCl 10 MG TABLET PO ×2 (15:42→21:25)
[2022-04-27 16:24] VITALS: BP 140/82; PULSE 78; TEMP 36.3; O2SAT 99
[2022-04-27] MEDS: Prazosin HCL 1 MG CAPSULE 3 MG PO (21:21)
[2022-04-27] MEDS: traZODone HCL 50 MG TABLET PO (21:25)
[2022-04-27] MEDS: Zolpidem Tartrate 5 MG TABLET PO (21:25)
[2022-04-27] MEDS: Amitriptyline HCl 25 MG TABLET PO (21:25)
[2022-04-28] MEDS: Dextroamphetamine/Amphetamine XR 10 MG CAP.ER.24H 20 MG PO (09:00)
[2022-04-28] MEDS: buPROPion HCl XL 150 MG TAB.ER.24H 450 MG PO (09:01)
[2022-04-28] MEDS: Pyridoxine HCl (Vitamin B6) 50 MG TABLET PO (09:01)
[2022-04-28] MEDS: Gabapentin 400 MG CAPSULE 800 MG PO ×4 (09:01→20:52)
[2022-04-28] MEDS: Multivitamin TABLET 1 TAB PO (09:01)
[2022-04-28] MEDS: Thiamine HCL 100 MG TABLET 50 MG PO (09:01)
[2022-04-28] MEDS: NaPROXEN 250 MG TABLET PO ×2 (09:02→20:53)
[2022-04-28] MEDS: LORazepam 1 MG TABLET PO (09:02)
[2022-04-28] MEDS: Buprenorphine/Naloxone 8/2 mg FILM 2 FILM SUBLINGUAL (09:02)
[2022-04-28] MEDS: Folic Acid 1 MG TABLET PO (09:02)
[2022-04-28] MEDS: Nicotine 21 MG PATCH.TD24 TRANSDERMA (09:08)
[2022-04-28] MEDS: Cyclobenzaprine HCl 10 MG TABLET PO ×3 (09:10→20:52)
[2022-04-28 09:49] VITALS: BP 136/79; PULSE 86; RESP 18; TEMP 36.3; O2SAT 99
[2022-04-28] MEDS: metroNIDAZOLE 0.75 % Gel 45 GM TUBE 1 APPL TOPICAL (09:59)
--- NOTE | 2022-04-28 12:51 | HO.PSYCHPN ---
Subjective Subjective Date of Service: 04/28/22 Reason For Visit: Depression, polysubstance abuse D/O;SI Subjective Notes: Conditional Voluntary Healthcare Proxy: No Guardianship: No Medical Problems Affecting Mental Status: No Interim History: Pt hoping to go to [facility] program, though later distraught that ativan taper was over- gave him extra dose 1mg tonight and 0.5mg tomorrow If he is hoping to go to program he won't be able to be on benzodiazepines in any case- He feels he is otherwise doing ok, no xs depression. no si, no se/ of meds ongoing pain in hip Medication Compliance: Yes Side effects from medications: No Attending Groups: Intermittent Review of Systems Medical Review of Systems: unchanged Mental Status Exam Mental Status Exam Patient Appearance: Well Grooomed and Appropriate Patient Orientation: Person, Place and Time Level of Consciousness: Awake and Appropriate Patient Behavior: Appropriate and Isolative Mood Description: Calm Affect Description: Blunted Patient Cognition Impaired: No Ability to Follow Directions: Fair Speech Pattern: Clear Hallucinations: None Delusions: Not Present Thought Process: Intact and Goal Oriented Thought Content: positive for Goal Oriented Depressive Symptoms: Muscle Tension, Difficulty Sleeping and Muscle Pain Judgement: Fair Diagnostics Vital Signs (24Hr): Vital Signs - 24 hr 04/27/22 16:24 04/28/22 09:49 Temperature 97.4 F 97.3 F Pulse Rate 78 86 Respiratory Rate 18 Blood Pressure 140/82 H 136/79 Pulse Oximetry 99 99 Oxygen Delivery Method Room Air Room Air Labs Results: 04/20/22 11:17 Medications Medications Current Medications Acetaminophen (Acetaminophen 325 Mg Tablet) 650 mg PO Q6H PRN PRN Reason: Pain, Mild (Pain Scale 1-3) Al Hydroxide/Mg Hydroxide (Magnesium Hydrox/Alum Hydrox 30 Ml Oral.Susp) 30 ml PO Q6H PRN PRN Reason: Heartburn/Nausea Amitriptyline HCl (Amitriptyline Hcl 25 Mg Tablet) 25 mg PO BEDTIME [facility] Last Admin: 04/27/22 21:25 Dose: 25 mg Amphetamine/Dextroamphetamine (Dextroamphetamine/Amphetamine Xr 10 Mg Cap.Er.24h) 20 mg PO DAILY [facility] Last Admin: 04/28/22 09:00 Dose: 20 mg Buprenorphine/Naloxone (Buprenorphine/Naloxone 8/2 Mg Film) 2 film SUBLINGUAL DAILY [facility] Last Admin: 04/28/22 09:02 Dose: 2 film Bupropion HCl (Bupropion Hcl Xl 150 Mg Tab.Er.24h) 450 mg PO DAILY [facility] Last Admin: 04/28/22 09:01 Dose: 450 mg Cyclobenzaprine HCl (Cyclobenzaprine Hcl 10 Mg Tablet) 10 mg PO TID PRN PRN Reason: muscle spasm Last Admin: 04/28/22 09:10 Dose: 10 mg Folic Acid (Folic Acid 1 Mg Tablet) 1 mg PO DAILY [facility] Last Admin: 04/28/22 09:02 Dose: 1 mg Gabapentin (Gabapentin 400 Mg Capsule) 800 mg PO QID [facility] Last Admin: 04/28/22 09:01 Dose: 800 mg Hydroxyzine HCl (Hydroxyzine Hcl 25 Mg Tablet) 25 mg PO Q6H PRN PRN Reason: Anxiety Last Admin: 04/27/22 21:24 Dose: 25 mg Magnesium Hydroxide (Milk Of Magnesia 30 Ml Oral.Susp) 30 ml PO DAILY PRN PRN Reason: Constipation Metronidazole (Metronidazole 0.75 % Gel 45 Gm Tube) 1 appl TOPICAL BID [facility] Last Admin: 04/28/22 09:59 Dose: 1 appl Multivitamins/Vitamin C (Multivitamin Tablet) 1 tab PO DAILY [facility] Last Admin: 04/28/22 09:01 Dose: 1 tab Naproxen (Naproxen 250 Mg Tablet) 250 mg PO BID [facility] Last Admin: 04/28/22 09:02 Dose: 250 mg Nicotine (Nicotine 21 Mg Patch.Td24) 21 mg TRANSDERMA DAILY [facility] Last Admin: 04/28/22 09:08 Dose: 21 mg Nicotine Polacrilex (Nicotine Polacrilex 2 Mg Gum) 2 mg BUCCAL Q2H PRN PRN Reason: Nicotine Cravings Last Admin: 04/27/22 15:42 Dose: 2 mg Ondansetron HCl (Ondansetron Odt 4 Mg Tab.Rapdis) 4 mg TRANSLINGU Q6H PRN PRN Reason: Nausea and Vomiting Polyethylene Glycol (Polyethylene Glycol 3350 17 Gm Powd.Pack) 17 gm PO DAILY PRN PRN Reason: Constipation Prazosin HCl (Prazosin Hcl 1 Mg Capsule) 3 mg PO BEDTIME [facility]; Protocol Last Admin: 04/27/22 21:21 Dose: 3 mg Pyridoxine HCl (Pyridoxine Hcl (Vitamin B6) 50 Mg Tablet) 50 mg PO DAILY [facility] Last Admin: 04/28/22 09:01 Dose: 50 mg Senna/Docusate Sodium (Sennosides/Docusate Sodium Tablet) 2 tab PO BEDTIME PRN PRN Reason: Constipation Last Admin: 04/25/22 14:51 Dose: 2 tab Thiamine HCl (Thiamine Hcl 100 Mg Tablet) 50 mg PO DAILY [facility] Last Admin: 04/28/22 09:01 Dose: 50 mg Trazodone HCl (Trazodone Hcl 50 Mg Tablet) 50 mg PO BEDTIME PRN PRN Reason: Insomnia Last Admin: 04/27/22 21:25 Dose: 50 mg Zolpidem Tartrate (Zolpidem Tartrate 5 Mg Tablet) 5 mg PO BEDTIME [facility] Last Admin: 04/27/22 21:25 Dose: 5 mg Allergies Allergies Allergy/AdvReac Type Severity Reaction Status Date / Time phenobarbital AdvReac Vomiting Verified 11/12/21 15:48 Assessment & Plan Assessment & Plan (1) Major depression: Status: Acute Code(s): F32.9 - Major depressive disorder, single episode, unspecified Assessment and Plan: sad, but not depressed, no si (2) Drug overdose: Qualifiers: Encounter type: initial encounter Injury intent: intentional self-harm Qualified Code(s): T50.902A - Poisoning by unspecified drugs, medicaments and biological substances, intentional self-harm, initial encounter Status: Acute Code(s): T50.901A - Poisoning by unspecified drugs, medicaments and biological substances, accidental (unintentional), initial encounter (3) Chronic post-traumatic stress disorder (PTSD): Status: Acute Code(s): F43.12 - Post-traumatic stress disorder, chronic (4) Alcohol use disorder: Status: Chronic Assessment and Plan: 51 year old with history of depression and PSA/dependence admitted s/p OD and after observation on medicine for ETOH W/D. He continues with symptoms of the same. He is now feeling safe and future oriented and wants to get treatment again, (5) Opioid use disorder: Status: Chronic Code(s): F11.99 - Opioid use, unspecified with unspecified opioid-induced disorder Plan HPI: 51 year old with a history of depression, Polysubstance abuse/dependence including alcohol, who is admitted with an OD on multiple medications and as a transfer from the medical floor where he was watched for complicated alcohol withdrawal. Patient reports he OD;d on several of his medications because of increased depression and suicidality in the context of recent relapse on alcohol and cocaine. He reports he was drinking a 1/5th of hard liquor and 12 pack for the past month. 04/21: Zofran for nausea. Continue other medications as they are. 04/22 depressed but no SI; will start taper for Ativan; has not scored much on CIWA so will DC; will increase Gabapentin to previous dose 800mg TID; will titrate Wellbturin. 04/23 patient's mood is better and affect is noticeably brighter. Withdrawal mostly resolved and patient on Ativan taper. Patient is optimistic about getting back to sobriety and cites recent therapeutic sessions at previous admission and recent history of sustained sobriety as anchoring experiences. Patient asks for Vyvanse, Ambien and amitriptyline having been started on these at admission at [facility] this past month. Hydrologic Engineer discussed risks/side effects of patient's medication regimen including these additions, including risks of combined with substance abuse; patient understands these risks. Hydrologic Engineer is open to making changes though patient's disposition will affect prescriptions given at discharge, for if he is discharged to a program/structured environment, risks become very low. -discussed patient's hip problems and need for right-sided hip replacement; patient reports recent diagnosis of degenerative disc 04/25 remains stable 04/26 no changes PLAN: ?Admit to M5. CV ?Dc Ciwa; taper ativan Continue Prazosin 3mg qhs Continue gabapentin to 800 mg q.i.d. which patient was getting at last admission Continue amitriptyline 25 mg q.h.s. for insomnia and help with mood; patient was on this at [facility] in place of doxepin? Continue Adderall extended release q.a.m.; Vyvanse not available Continue Ambien 5mg qhs; patient reports trazodone caused excessive dry mouth which resulted in cavities otherwise: - Groups and milieu therapy - Continue psychiatric medications. Titrated GBP to help with withdrawal as well. - Discharge planning. I spent minutes with the patient and/or on the patient floor today, greater than?50% of which was spent counseling/coordinating care. Patient educated on: medication risk/benefits Informed Consent: further education needed Reason for contiued inpatient stay Substantial Risk for: rapid decompensation
[2022-04-28] MEDS: hydrOXYzine HCL 25 MG TABLET PO ×2 (13:02→20:53)
[2022-04-28] MEDS: Nicotine Polacrilex 2 MG GUM BUCCAL ×2 (13:02→19:31)
[2022-04-28 18:55] VITALS: BP 138/68; PULSE 80; RESP 16; TEMP 36.4; O2SAT 97
[2022-04-28] MEDS: Acetaminophen 325 MG TABLET 650 MG PO (19:27)
[2022-04-28] MEDS: Zolpidem Tartrate 5 MG TABLET PO (20:53)
[2022-04-28] MEDS: Amitriptyline HCl 25 MG TABLET PO (20:53)
[2022-04-28] MEDS: Prazosin HCL 1 MG CAPSULE 3 MG PO (20:53)
[2022-04-28] MEDS: traZODone HCL 50 MG TABLET PO (20:53)
[2022-04-28 20:55] VITALS: BP 154/82
[2022-04-28] MEDS: LORazepam 0.5 MG TABLET PO (21:56)
[2022-04-29 06:00] VITALS: BP 135/79; PULSE 79; RESP 14; TEMP 36.4; O2SAT 99
[2022-04-29] MEDS: Buprenorphine/Naloxone 8/2 mg FILM 2 FILM SUBLINGUAL (08:21)
[2022-04-29] MEDS: Thiamine HCL 100 MG TABLET 50 MG PO (08:21)
[2022-04-29] MEDS: NaPROXEN 250 MG TABLET PO ×2 (08:21→20:18)
[2022-04-29] MEDS: Nicotine 21 MG PATCH.TD24 TRANSDERMA (08:21)
[2022-04-29] MEDS: Dextroamphetamine/Amphetamine XR 10 MG CAP.ER.24H 20 MG PO (08:22)
[2022-04-29] MEDS: Pyridoxine HCl (Vitamin B6) 50 MG TABLET PO (08:22)
[2022-04-29] MEDS: LORazepam 0.5 MG TABLET PO ×3 (08:22→21:25)
[2022-04-29] MEDS: Multivitamin TABLET 1 TAB PO (08:22)
[2022-04-29] MEDS: Folic Acid 1 MG TABLET PO (08:22)
[2022-04-29] MEDS: Gabapentin 400 MG CAPSULE 800 MG PO ×4 (08:22→20:18)
[2022-04-29] MEDS: buPROPion HCl XL 150 MG TAB.ER.24H 450 MG PO (08:22)
[2022-04-29] MEDS: metroNIDAZOLE 0.75 % Gel 45 GM TUBE 1 APPL TOPICAL (08:26)
[2022-04-29] MEDS: Cyclobenzaprine HCl 10 MG TABLET PO ×3 (08:37→20:18)
[2022-04-29] MEDS: polyethylene glycoL 3350 17 GM POWD.PACK PO (09:05)
--- NOTE | 2022-04-29 10:26 | HO.PSYCHPN ---
Subjective Subjective Date of Service: 04/29/22 Reason For Visit: Depression, polysubstance abuse D/O;SI Interim History: says overall doing well; feels he gets better each day. Feeling anxius about getting into a prgram but able to cope. Golf benzo taper was too quick and radio news writer agreed to continue ativan 1mg daily for a few more days. Mental Status Exam Mental Status Exam Narrative: Pt is alert and oriented; behavior is cooperative, engaged and calm; patient is not in distress; dressed in casual attire, bald head, adequate hygiene; mood is described as ok and affect congruent; eye contact appropriate; Speech is normal volume, rate and prosody; no psychomotor retardation present; thought process is organized and goal directed; Thought content is on tx, recovery; otherwise pertinent to relevant topics and without any delusional content, paranoid ideations or grandiosity; denies any SI/HI. There is no evidence of perceptual disturbance. Patients insight and judgment are fair. Diagnostics Vital Signs (24Hr): Vital Signs - 24 hr 04/28/22 18:55 04/28/22 20:55 04/29/22 06:00 Temperature 97.6 F 97.6 F Pulse Rate 80 79 Respiratory Rate 16 14 Blood Pressure 138/68 154/82 H 135/79 Pulse Oximetry 97 99 Oxygen Delivery Method Room Air Room Air Labs Results: 04/20/22 11:17 Medications Medications Current Medications Acetaminophen (Acetaminophen 325 Mg Tablet) 650 mg PO Q6H PRN PRN Reason: Pain, Mild (Pain Scale 1-3) Last Admin: 04/28/22 19:27 Dose: 650 mg Al Hydroxide/Mg Hydroxide (Magnesium Hydrox/Alum Hydrox 30 Ml Oral.Susp) 30 ml PO Q6H PRN PRN Reason: Heartburn/Nausea Amitriptyline HCl (Amitriptyline Hcl 25 Mg Tablet) 25 mg PO BEDTIME [facility] Last Admin: 04/28/22 20:53 Dose: 25 mg Amphetamine/Dextroamphetamine (Dextroamphetamine/Amphetamine Xr 10 Mg Cap.Er.24h) 20 mg PO DAILY [facility] Last Admin: 04/29/22 08:22 Dose: 20 mg Buprenorphine/Naloxone (Buprenorphine/Naloxone 8/2 Mg Film) 2 film SUBLINGUAL DAILY [facility] Last Admin: 04/29/22 08:21 Dose: 2 film Bupropion HCl (Bupropion Hcl Xl 150 Mg Tab.Er.24h) 450 mg PO DAILY [facility] Last Admin: 04/29/22 08:22 Dose: 450 mg Cyclobenzaprine HCl (Cyclobenzaprine Hcl 10 Mg Tablet) 10 mg PO TID PRN PRN Reason: muscle spasm Last Admin: 04/29/22 08:37 Dose: 10 mg Folic Acid (Folic Acid 1 Mg Tablet) 1 mg PO DAILY [facility] Last Admin: 04/29/22 08:22 Dose: 1 mg Gabapentin (Gabapentin 400 Mg Capsule) 800 mg PO QID [facility] Last Admin: 04/29/22 08:22 Dose: 800 mg Hydroxyzine HCl (Hydroxyzine Hcl 25 Mg Tablet) 25 mg PO Q6H PRN PRN Reason: Anxiety Last Admin: 04/28/22 20:53 Dose: 25 mg Magnesium Hydroxide (Milk Of Magnesia 30 Ml Oral.Susp) 30 ml PO DAILY PRN PRN Reason: Constipation Metronidazole (Metronidazole 0.75 % Gel 45 Gm Tube) 1 appl TOPICAL BID [facility] Last Admin: 04/29/22 08:26 Dose: 1 appl Multivitamins/Vitamin C (Multivitamin Tablet) 1 tab PO DAILY [facility] Last Admin: 04/29/22 08:22 Dose: 1 tab Naproxen (Naproxen 250 Mg Tablet) 250 mg PO BID [facility] Last Admin: 04/29/22 08:21 Dose: 250 mg Nicotine (Nicotine 21 Mg Patch.Td24) 21 mg TRANSDERMA DAILY [facility] Last Admin: 04/29/22 08:21 Dose: 21 mg Nicotine Polacrilex (Nicotine Polacrilex 2 Mg Gum) 2 mg BUCCAL Q2H PRN PRN Reason: Nicotine Cravings Last Admin: 04/28/22 19:31 Dose: 2 mg Ondansetron HCl (Ondansetron Odt 4 Mg Tab.Rapdis) 4 mg TRANSLINGU Q6H PRN PRN Reason: Nausea and Vomiting Polyethylene Glycol (Polyethylene Glycol 3350 17 Gm Powd.Pack) 17 gm PO DAILY PRN PRN Reason: Constipation Last Admin: 04/29/22 09:05 Dose: 17 gm Prazosin HCl (Prazosin Hcl 1 Mg Capsule) 3 mg PO BEDTIME [facility]; Protocol Last Admin: 04/28/22 20:53 Dose: 3 mg Pyridoxine HCl (Pyridoxine Hcl (Vitamin B6) 50 Mg Tablet) 50 mg PO DAILY [facility] Last Admin: 04/29/22 08:22 Dose: 50 mg Senna/Docusate Sodium (Sennosides/Docusate Sodium Tablet) 2 tab PO BEDTIME PRN PRN Reason: Constipation Last Admin: 04/25/22 14:51 Dose: 2 tab Thiamine HCl (Thiamine Hcl 100 Mg Tablet) 50 mg PO DAILY [facility] Last Admin: 04/29/22 08:21 Dose: 50 mg Trazodone HCl (Trazodone Hcl 50 Mg Tablet) 50 mg PO BEDTIME PRN PRN Reason: Insomnia Last Admin: 04/28/22 20:53 Dose: 50 mg Zolpidem Tartrate (Zolpidem Tartrate 5 Mg Tablet) 5 mg PO BEDTIME [facility] Last Admin: 04/28/22 20:53 Dose: 5 mg Allergies Allergies Allergy/AdvReac Type Severity Reaction Status Date / Time phenobarbital AdvReac Vomiting Verified 11/12/21 15:48 Assessment & Plan Assessment & Plan (1) Major depression: Status: Acute Code(s): F32.9 - Major depressive disorder, single episode, unspecified Assessment and Plan: sad, but not depressed, no si (2) Drug overdose: Qualifiers: Encounter type: initial encounter Injury intent: intentional self-harm Qualified Code(s): T50.902A - Poisoning by unspecified drugs, medicaments and biological substances, intentional self-harm, initial encounter Status: Acute Code(s): T50.901A - Poisoning by unspecified drugs, medicaments and biological substances, accidental (unintentional), initial encounter (3) Chronic post-traumatic stress disorder (PTSD): Status: Acute Code(s): F43.12 - Post-traumatic stress disorder, chronic (4) Alcohol use disorder: Status: Chronic Assessment and Plan: 51 year old with history of depression and PSA/dependence admitted s/p OD and after observation on medicine for ETOH W/D. He continues with symptoms of the same. He is now feeling safe and future oriented and wants to get treatment again, (5) Opioid use disorder: Status: Chronic Code(s): F11.99 - Opioid use, unspecified with unspecified opioid-induced disorder Plan HPI: 51 year old with a history of depression, Polysubstance abuse/dependence including alcohol, who is admitted with an OD on multiple medications and as a transfer from the medical floor where he was watched for complicated alcohol withdrawal. Patient reports he OD;d on several of his medications because of increased depression and suicidality in the context of recent relapse on alcohol and cocaine. He reports he was drinking a 1/5th of hard liquor and 12 pack for the past month. 04/21: Zofran for nausea. Continue other medications as they are. 04/22 depressed but no SI; will start taper for Ativan; has not scored much on CIWA so will DC; will increase Gabapentin to previous dose 800mg TID; will titrate Wellbturin. 04/23 patient's mood is better and affect is noticeably brighter. Withdrawal mostly resolved and patient on Ativan taper. Patient is optimistic about getting back to sobriety and cites recent therapeutic sessions at previous admission and recent history of sustained sobriety as anchoring experiences. Patient asks for Vyvanse, Ambien and amitriptyline having been started on these at admission at [facility] this past month. Farm Equipment Service Technician discussed risks/side effects of patient's medication regimen including these additions, including risks of combined with substance abuse; patient understands these risks. Farm Equipment Service Technician is open to making changes though patient's disposition will affect prescriptions given at discharge, for if he is discharged to a program/structured environment, risks become very low. -discussed patient's hip problems and need for right-sided hip replacement; patient reports recent diagnosis of degenerative disc 04/25 remains stable 04/26 no changes 04/29 stable; waiting for program PLAN: ?Admit to M5. CV continue ativan 1mg daily for a few more days as taper Continue Prazosin 3mg qhs Continue gabapentin to 800 mg q.i.d. which patient was getting at last admission Continue amitriptyline 25 mg q.h.s. for insomnia and help with mood; patient was on this at [facility] in place of doxepin? Continue Adderall extended release q.a.m.; Vyvanse not available Continue Ambien 5mg qhs; patient reports trazodone caused excessive dry mouth which resulted in cavities otherwise: - Groups and milieu therapy - Continue psychiatric medications. Titrated GBP to help with withdrawal as well. - Discharge planning. I spent minutes with the patient and/or on the patient floor today, greater than?50% of which was spent counseling/coordinating care. Guardian/Caregiver educated on: substance abuse Reason for contiued inpatient stay Substantial Risk for: stable for discharge
[2022-04-29] MEDS: hydrOXYzine HCL 25 MG TABLET PO ×2 (13:24→20:18)
[2022-04-29] MEDS: Nicotine Polacrilex 2 MG GUM BUCCAL (15:09)
[2022-04-29] MEDS: Acetaminophen 325 MG TABLET 650 MG PO (17:13)
[2022-04-29 20:17] VITALS: BP 136/86; PULSE 80; RESP 16; TEMP 36.3
[2022-04-29] MEDS: Zolpidem Tartrate 5 MG TABLET PO (20:18)
[2022-04-29] MEDS: Prazosin HCL 1 MG CAPSULE 3 MG PO (20:18)
[2022-04-29] MEDS: traZODone HCL 50 MG TABLET PO ×2 (20:18→21:25)
[2022-04-29] MEDS: Amitriptyline HCl 25 MG TABLET PO (20:18)
[2022-04-30] MEDS: Thiamine HCL 100 MG TABLET 50 MG PO (08:35)
[2022-04-30] MEDS: Nicotine 21 MG PATCH.TD24 TRANSDERMA (08:35)
[2022-04-30] MEDS: Buprenorphine/Naloxone 8/2 mg FILM 2 FILM SUBLINGUAL (08:35)
[2022-04-30] MEDS: buPROPion HCl XL 150 MG TAB.ER.24H 450 MG PO (08:35)
[2022-04-30] MEDS: Pyridoxine HCl (Vitamin B6) 50 MG TABLET PO (08:36)
[2022-04-30] MEDS: Gabapentin 400 MG CAPSULE 800 MG PO ×4 (08:36→20:13)
[2022-04-30] MEDS: NaPROXEN 250 MG TABLET PO ×2 (08:36→20:13)
[2022-04-30] MEDS: Multivitamin TABLET 1 TAB PO (08:36)
[2022-04-30] MEDS: Cyclobenzaprine HCl 10 MG TABLET PO ×3 (08:36→20:13)
[2022-04-30] MEDS: Dextroamphetamine/Amphetamine XR 10 MG CAP.ER.24H 20 MG PO (08:36)
[2022-04-30] MEDS: LORazepam 1 MG TABLET PO (08:36)
[2022-04-30] MEDS: Folic Acid 1 MG TABLET PO (08:37)
[2022-04-30 09:01] VITALS: BP 119/64; PULSE 72; RESP 15; TEMP 36.3; O2SAT 98
[2022-04-30] MEDS: metroNIDAZOLE 0.75 % Gel 45 GM TUBE 1 APPL TOPICAL (09:36)
--- NOTE | 2022-04-30 10:06 | P.PNPSI_ITS ---
Subjective Subjective Date of Service: 04/30/22 Reason For Visit: Depression, polysubstance abuse D/O;SI Interim History: Overall mood is stable and patient is working on using coping skills for anxiety. He said that he momentarily felt neglected by social Work feeling others were getting into programs before him, but patient volunteered that he knows he was just being overly sensitive and that he does trust the social workers. Patient complains of hip pain and asks for [facility] Mental Status Exam Mental Status Exam Narrative: Pt is alert and oriented; behavior is cooperative, engaged and calm; patient is not in distress; dressed in casual attire, bald head, adequate hygiene; mood is described as ok and affect congruent; eye contact appropriate; Speech is normal volume, rate and prosody; no psychomotor retardation present; thought process is organized and goal directed; Thought content is on tx, recovery; otherwise pertinent to relevant topics and without any delusional content, paranoid ideations or grandiosity; denies any SI/HI. There is no evidence of p erceptual disturbance. Patients insight and judgment are fair. Diagnostics Vital Signs (24Hr): Vital Signs - 24 hr 04/29/22 20:17 04/30/22 09:01 Temperature 97.3 F 97.4 F Pulse Rate 80 72 Respiratory Rate 16 15 Blood Pressure 136/86 119/64 Pulse Oximetry 98 Oxygen Delivery Method Room Air Labs Results: 04/20/22 11:17 Medications Medications Current Medications Acetaminophen (Acetaminophen 325 Mg Tablet) 650 mg PO Q6H PRN PRN Reason: Pain, Mild (Pain Scale 1-3) Last Admin: 04/29/22 17:13 Dose: 650 mg Al Hydroxide/Mg Hydroxide (Magnesium Hydrox/Alum Hydrox 30 Ml Oral.Susp) 30 ml PO Q6H PRN PRN Reason: Heartburn/Nausea Amitriptyline HCl (Amitriptyline Hcl 25 Mg Tablet) 25 mg PO BEDTIME [facility] Last Admin: 04/29/22 20:18 Dose: 25 mg Amphetamine/Dextroamphetamine (Dextroamphetamine/Amphetamine Xr 10 Mg Cap.Er.24h) 20 mg PO DAILY [facility] Last Admin: 04/30/22 08:36 Dose: 20 mg Buprenorphine/Naloxone (Buprenorphine/Naloxone 8/2 Mg Film) 2 film SUBLINGUAL DAILY [facility] Last Admin: 04/30/22 08:35 Dose: 2 film Bupropion HCl (Bupropion Hcl Xl 150 Mg Tab.Er.24h) 450 mg PO DAILY [facility] Last Admin: 04/30/22 08:35 Dose: 450 mg Cyclobenzaprine HCl (Cyclobenzaprine Hcl 10 Mg Tablet) 10 mg PO TID PRN PRN Reason: muscle spasm Last Admin: 04/30/22 08:36 Dose: 10 mg Folic Acid (Folic Acid 1 Mg Tablet) 1 mg PO DAILY [facility] Last Admin: 04/30/22 08:37 Dose: 1 mg Gabapentin (Gabapentin 400 Mg Capsule) 800 mg PO QID [facility] Last Admin: 04/30/22 08:36 Dose: 800 mg Hydroxyzine HCl (Hydroxyzine Hcl 25 Mg Tablet) 25 mg PO Q6H PRN PRN Reason: Anxiety Last Admin: 04/29/22 20:18 Dose: 25 mg Lorazepam (Lorazepam 1 Mg Tablet) 1 mg PO DAILY [facility] Last Admin: 04/30/22 08:36 Dose: 1 mg Magnesium Hydroxide (Milk Of Magnesia 30 Ml Oral.Susp) 30 ml PO DAILY PRN PRN Reason: Constipation Metronidazole (Metronidazole 0.75 % Gel 45 Gm Tube) 1 appl TOPICAL BID [facility] Last Admin: 04/30/22 09:36 Dose: 1 appl Multivitamins/Vitamin C (Multivitamin Tablet) 1 tab PO DAILY [facility] Last Admin: 04/30/22 08:36 Dose: 1 tab Naproxen (Naproxen 250 Mg Tablet) 250 mg PO BID [facility] Last Admin: 04/30/22 08:36 Dose: 250 mg Nicotine (Nicotine 21 Mg Patch.Td24) 21 mg TRANSDERMA DAILY [facility] Last Admin: 04/30/22 08:35 Dose: 21 mg Nicotine Polacrilex (Nicotine Polacrilex 2 Mg Gum) 2 mg BUCCAL Q2H PRN PRN Reason: Nicotine Cravings Last Admin: 04/29/22 15:09 Dose: 2 mg Ondansetron HCl (Ondansetron Odt 4 Mg Tab.Rapdis) 4 mg TRANSLINGU Q6H PRN PRN Reason: Nausea and Vomiting Polyethylene Glycol (Polyethylene Glycol 3350 17 Gm Powd.Pack) 17 gm PO DAILY PRN PRN Reason: Constipation Last Admin: 04/29/22 09:05 Dose: 17 gm Prazosin HCl (Prazosin Hcl 1 Mg Capsule) 3 mg PO BEDTIME [facility]; Protocol Last Admin: 04/29/22 20:18 Dose: 3 mg Pyridoxine HCl (Pyridoxine Hcl (Vitamin B6) 50 Mg Tablet) 50 mg PO DAILY [facility] Last Admin: 04/30/22 08:36 Dose: 50 mg Senna/Docusate Sodium (Sennosides/Docusate Sodium Tablet) 2 tab PO BEDTIME PRN PRN Reason: Constipation Last Admin: 04/25/22 14:51 Dose: 2 tab Thiamine HCl (Thiamine Hcl 100 Mg Tablet) 50 mg PO DAILY [facility] Last Admin: 04/30/22 08:35 Dose: 50 mg Trazodone HCl (Trazodone Hcl 50 Mg Tablet) 50 mg PO BEDTIME PRN PRN Reason: Insomnia Last Admin: 04/29/22 21:25 Dose: 50 mg Zolpidem Tartrate (Zolpidem Tartrate 5 Mg Tablet) 5 mg PO BEDTIME [facility] Last Admin: 04/29/22 20:18 Dose: 5 mg Allergies Allergies Allergy/AdvReac Type Severity Reaction Status Date / Time phenobarbital AdvReac Vomiting Verified 11/12/21 15:48 Assessment & Plan Assessment & Plan (1) Major depression: Status: Acute Code(s): F32.9 - Major depressive disorder, single episode, unspecified Assessment and Plan: sad, but not depressed, no si (2) Drug overdose: Qualifiers: Encounter type: initial encounter Injury intent: intentional self-harm Qualified Code(s): T50.902A - Poisoning by unspecified drugs, medicaments and biological substances, intentional self-harm, initial encounter Status: Acute Code(s): T50.901A - Poisoning by unspecified drugs, medicaments and biological substances, accidental (unintentional), initial encounter (3) Chronic post-traumatic stress disorder (PTSD): Status: Acute Code(s): F43.12 - Post-traumatic stress disorder, chronic (4) Alcohol use disorder: Status: Chronic Assessment and Plan: 51 year old with history of depression and PSA/dependence admitted s/p OD and after observation on medicine for ETOH W/D. He continues with symptoms of the same. He is now feeling safe and future oriented and wants to get treatment again, (5) Opioid use disorder: Status: Chronic Code(s): F11.99 - Opioid use, unspecified with unspecified opioid-induced disorder Plan HPI: 51 year old with a history of depression, Polysubstance abuse/dependence including alcohol, who is admitted with an OD on multiple medications and as a transfer from the medical floor where he was watched for complicated alcohol withdrawal. Patient reports he OD;d on several of his medications because of increased depression and suicidality in the context of recent relapse on alcohol and cocaine. He reports he was drinking a 1/5th of hard liquor and 12 pack for the past month. 04/21: Zofran for nausea. Continue other medications as they are. 04/22 depressed but no SI; will start taper for Ativan; has not scored much on CIWA so will DC; will increase Gabapentin to previous dose 800mg TID; will titrate Wellbturin. 04/23 patient's mood is better and affect is noticeably brighter. Withdrawal mostly resolved and patient on Ativan taper. Patient is optimistic about getting back to sobriety and cites recent therapeutic sessions at previous admis ross and recent history of sustained sobriety as anchoring experiences. Patient asks for Vyvanse, Ambien and amitriptyline having been started on these at admission at [facility] this past month. Social Media Marketing Analyst discussed risks/side effects of patient's medication regimen including these additions, including risks of combined with substance abuse; patient understands these risks. Social Media Marketing Analyst is open to making changes though patient's disposition will affect prescriptions given at discharge, for if he is discharged to a program/structured environment, risks become very low. -discussed patient's hip problems and need for right-sided hip replacement; patient reports recent diagnosis of degenerative disc 04/25 remains stable; 04/26 no changes; 04/29 stable; waiting for program 04/30 stable. Will continue Ativan for few more days for extended taper; paulette Mcdonald, will ask patient if he will tolerate Aspercreme PLAN: ?Admit to M5. CV continue ativan 1mg daily for a few more days as taper Continue Prazosin 3mg qhs Continue gabapentin to 800 mg q.i.d. which patient was getting at last admission Continue amitriptyline 25 mg q.h.s. for insomnia and help with mood; patient was on this at [facility] in place of doxepin? Continue Adderall extended release q.a.m.; Vyvanse not available Continue Ambien 5mg qhs; patient reports trazodone caused excessive dry mouth which resulted in cavities otherwise: - Groups and milieu therapy - Continue psychiatric medications. Titrated GBP to help with withdrawal as well. - Discharge planning. I spent minutes with the patient and/or on the patient floor today, greater than?50% of which was spent counseling/coordinating care. Patient educated on: diagnosis, medication risk/benefits, therapeutic strategies and medical condition Informed Consent: understands Reason for contiued inpatient stay Substantial Risk for: stable for discharge
[2022-04-30] MEDS: hydrOXYzine HCL 25 MG TABLET PO ×2 (12:32→20:13)
[2022-04-30] MEDS: Acetaminophen 325 MG TABLET 650 MG PO (15:32)
[2022-04-30] MEDS: traZODone HCL 50 MG TABLET PO (20:13)
[2022-04-30] MEDS: Amitriptyline HCl 25 MG TABLET PO (20:13)
[2022-04-30] MEDS: Zolpidem Tartrate 5 MG TABLET PO (20:13)
[2022-04-30] MEDS: Prazosin HCL 1 MG CAPSULE 3 MG PO (20:13)
[2022-04-30 20:37] VITALS: BP 127/88; PULSE 88
[2022-05-01 06:00] VITALS: BP 132/68; PULSE 70; RESP 18; TEMP 36.4; O2SAT 98
[2022-05-01] MEDS: Dextroamphetamine/Amphetamine XR 10 MG CAP.ER.24H 20 MG PO (08:57)
[2022-05-01] MEDS: NaPROXEN 250 MG TABLET PO ×2 (08:57→19:22)
[2022-05-01] MEDS: Thiamine HCL 100 MG TABLET 50 MG PO (08:57)
[2022-05-01] MEDS: LORazepam 1 MG TABLET PO (08:58)
[2022-05-01] MEDS: Cyclobenzaprine HCl 10 MG TABLET PO ×3 (08:58→20:03)
[2022-05-01] MEDS: Pyridoxine HCl (Vitamin B6) 50 MG TABLET PO (08:58)
[2022-05-01] MEDS: Gabapentin 400 MG CAPSULE 800 MG PO ×4 (08:58→19:21)
[2022-05-01] MEDS: Folic Acid 1 MG TABLET PO (08:58)
[2022-05-01] MEDS: Multivitamin TABLET 1 TAB PO (08:58)
[2022-05-01] MEDS: buPROPion HCl XL 150 MG TAB.ER.24H 450 MG PO (08:58)
[2022-05-01] MEDS: Buprenorphine/Naloxone 8/2 mg FILM 2 FILM SUBLINGUAL (09:46)
[2022-05-01] MEDS: Nicotine 21 MG PATCH.TD24 TRANSDERMA (10:12)
[2022-05-01] MEDS: metroNIDAZOLE 0.75 % Gel 45 GM TUBE 1 APPL TOPICAL ×2 (10:14→19:23)
[2022-05-01] MEDS: Nicotine Polacrilex 2 MG GUM BUCCAL (12:54)
[2022-05-01] MEDS: hydrOXYzine HCL 25 MG TABLET PO ×2 (12:54→20:04)
[2022-05-01] MEDS: Acetaminophen 325 MG TABLET 650 MG PO (14:41)
--- NOTE | 2022-05-01 15:01 | HO.PSYCHPN ---
Subjective Subjective Date of Service: 05/01/22 Reason For Visit: Depression, polysubstance abuse D/O;SI Interim History: Patient reports that he is doing fine though had some trouble sleeping last night.? Would like Aspercreme for his hip since no Voltaren. Mental Status Exam Mental Status Exam Narrative: Pt is alert and oriented; behavior is cooperative, engaged and calm; patient is not in distress; dressed in casual attire, bald head, adequate hygiene; mood is described as ok and affect congruent; eye contact appropriate; Speech is normal volume, rate and prosody; no psychomotor retardation present; thought process is organized and goal directed; Thought content is on tx, recovery; otherwise pertinent to relevant topics and without any delusional content, paranoid ideations or grandiosity; denies any SI/HI. There is no evidence of perceptual disturbance. Patients insight and judgment are fair. Diagnostics Vital Signs (24Hr): Vital Signs - 24 hr 04/30/22 20:37 05/01/22 06:00 Temperature 97.6 F Pulse Rate 88 70 Respiratory Rate 18 Blood Pressure 127/88 132/68 Pulse Oximetry 98 Oxygen Delivery Method Room Air Labs Results: 04/20/22 11:17 Medications Medications Current Medications Acetaminophen (Acetaminophen 325 Mg Tablet) 650 mg PO Q6H PRN PRN Reason: Pain, Mild (Pain Scale 1-3) Last Admin: 05/01/22 14:41 Dose: 650 mg Al Hydroxide/Mg Hydroxide (Magnesium Hydrox/Alum Hydrox 30 Ml Oral.Susp) 30 ml PO Q6H PRN PRN Reason: Heartburn/Nausea Amitriptyline HCl (Amitriptyline Hcl 25 Mg Tablet) 25 mg PO BEDTIME [facility] Last Admin: 04/30/22 20:13 Dose: 25 mg Amphetamine/Dextroamphetamine (Dextroamphetamine/Amphetamine Xr 10 Mg Cap.Er.24h) 20 mg PO DAILY [facility] Last Admin: 05/01/22 08:57 Dose: 20 mg Buprenorphine/Naloxone (Buprenorphine/Naloxone 8/2 Mg Film) 2 film SUBLINGUAL DAILY [facility] Last Admin: 05/01/22 09:46 Dose: 2 film Bupropion HCl (Bupropion Hcl Xl 150 Mg Tab.Er.24h) 450 mg PO DAILY [facility] Last Admin: 05/01/22 08:58 Dose: 450 mg Cyclobenzaprine HCl (Cyclobenzaprine Hcl 10 Mg Tablet) 10 mg PO TID PRN PRN Reason: muscle spasm Last Admin: 05/01/22 14:41 Dose: 10 mg Folic Acid (Folic Acid 1 Mg Tablet) 1 mg PO DAILY [facility] Last Admin: 05/01/22 08:58 Dose: 1 mg Gabapentin (Gabapentin 400 Mg Capsule) 800 mg PO QID [facility] Last Admin: 05/01/22 12:55 Dose: 800 mg Hydroxyzine HCl (Hydroxyzine Hcl 25 Mg Tablet) 25 mg PO Q6H PRN PRN Reason: Anxiety Last Admin: 05/01/22 12:54 Dose: 25 mg Lorazepam (Lorazepam 1 Mg Tablet) 1 mg PO DAILY [facility] Last Admin: 05/01/22 08:58 Dose: 1 mg Magnesium Hydroxide (Milk Of Magnesia 30 Ml Oral.Susp) 30 ml PO DAILY PRN PRN Reason: Constipation Metronidazole (Metronidazole 0.75 % Gel 45 Gm Tube) 1 appl TOPICAL BID [facility] Last Admin: 05/01/22 10:14 Dose: 1 appl Multivitamins/Vitamin C (Multivitamin Tablet) 1 tab PO DAILY [facility] Last Admin: 05/01/22 08:58 Dose: 1 tab Naproxen (Naproxen 250 Mg Tablet) 250 mg PO BID [facility] Last Admin: 05/01/22 08:57 Dose: 250 mg Nicotine (Nicotine 21 Mg Patch.Td24) 21 mg TRANSDERMA DAILY [facility] Last Admin: 05/01/22 10:12 Dose: 21 mg Nicotine Polacrilex (Nicotine Polacrilex 2 Mg Gum) 2 mg BUCCAL Q2H PRN PRN Reason: Nicotine Cravings Last Admin: 05/01/22 12:54 Dose: 2 mg Ondansetron HCl (Ondansetron Odt 4 Mg Tab.Rapdis) 4 mg TRANSLINGU Q6H PRN PRN Reason: Nausea and Vomiting Polyethylene Glycol (Polyethylene Glycol 3350 17 Gm Powd.Pack) 17 gm PO DAILY PRN PRN Reason: Constipation Last Admin: 04/29/22 09:05 Dose: 17 gm Prazosin HCl (Prazosin Hcl 1 Mg Capsule) 3 mg PO BEDTIME [facility]; Protocol Last Admin: 04/30/22 20:13 Dose: 3 mg Pyridoxine HCl (Pyridoxine Hcl (Vitamin B6) 50 Mg Tablet) 50 mg PO DAILY [facility] Last Admin: 05/01/22 08:58 Dose: 50 mg Senna/Docusate Sodium (Sennosides/Docusate Sodium Tablet) 2 tab PO BEDTIME PRN PRN Reason: Constipation Last Admin: 04/25/22 14:51 Dose: 2 tab Thiamine HCl (Thiamine Hcl 100 Mg Tablet) 50 mg PO DAILY [facility] Last Admin: 05/01/22 08:57 Dose: 50 mg Trazodone HCl (Trazodone Hcl 50 Mg Tablet) 50 mg PO BEDTIME PRN PRN Reason: Insomnia Last Admin: 04/30/22 20:13 Dose: 50 mg Trolamine Salicylate (Trolamine Salicylate 10 % Cream 85 Gm Tube) 1 appl TOPICAL BID PRN; Protocol PRN Reason: hip pain Zolpidem Tartrate (Zolpidem Tartrate 5 Mg Tablet) 5 mg PO BEDTIME [facility] Last Admin: 04/30/22 20:13 Dose: 5 mg Allergies Allergies Allergy/AdvReac Type Severity Reaction Status Date / Time phenobarbital AdvReac Vomiting Verified 11/12/21 15:48 Assessment & Plan Assessment & Plan (1) Major depression: Status: Acute Code(s): F32.9 - Major depressive disorder, single episode, unspecified Assessment and Plan: sad, but not depressed, no si (2) Drug overdose: Qualifiers: Encounter type: initial encounter Injury intent: intentional self-harm Qualified Code(s): T50.902A - Poisoning by unspecified drugs, medicaments and biological substances, intentional self-harm, initial encounter Status: Acute Code(s): T50.901A - Poisoning by unspecified drugs, medicaments and biological substances, accidental (unintentional), initial encounter (3) Chronic post-traumatic stress disorder (PTSD): Status: Acute Code(s): F43.12 - Post-traumatic stress disorder, chronic (4) Alcohol use disorder: Status: Chronic Assessment and Plan: 51 year old with history of depression and PSA/dependence admitted s/p OD and after observation on medicine for ETOH W/D. He continues with symptoms of the same. He is now feeling safe and future oriented and wants to get treatment again, (5) Opioid use disorder: Status: Chronic Code(s): F11.99 - Opioid use, unspecified with unspecified opioid-induced disorder Plan HPI: 51 year old with a history of depression, Polysubstance abuse/dependence including alcohol, who is admitted with an OD on multiple medications and as a transfer from the medical floor where he was watched for complicated alcohol withdrawal. Patient reports he OD;d on several of his medications because of increased depression and suicidality in the context of recent relapse on alcohol and cocaine. He reports he was drinking a 1/5th of hard liquor and 12 pack for the past month. 04/21: Zofran for nausea. Continue other medications as they are. 04/22 depressed but no SI; will start taper for Ativan; has not scored much on CIWA so will DC; will increase Gabapentin to previous dose 800mg TID; will titrate Wellbturin. 04/23 patient's mood is better and affect is noticeably brighter. Withdrawal mostly resolved and patient on Ativan taper. Patient is optimistic about getting back to sobriety and cites recent therapeutic sessions at previous admission and recent history of sustained sobriety as anchoring experiences. Patient asks for Vyvanse, Ambien and amitriptyline having been started on these at admission at [facility] this past month. Body Technician discussed risks/side effects of patient's medication regimen including these additions, including risks of combined with substance abuse; patient understands these risks. Body Technician is open to making changes though patient's disposition will affect prescriptions given at discharge, for if he is discharged to a program/structured environment, risks become very low. -discussed patient's hip problems and need for right-sided hip replacement; patient reports recent diagnosis of degenerative disc 04/25 remains stable; 04/26 no changes; 04/29 stable; waiting for program 04/30 stable. Will continue Ativan for few more days for extended taper; paulette Mcdonald, will ask patient if he will tolerate Aspercreme PLAN: ?Admit to M5. CV START Aspercreme from right hip continue ativan 1mg daily for a few more days as taper Continue Prazosin 3mg qhs Continue gabapentin to 800 mg q.i.d. which patient was getting at last admission Continue amitriptyline 25 mg q.h.s. for insomnia and help with mood; patient was on this at [facility] in place of doxepin? Continue Adderall extended release q.a.m.; Vyvanse not available Continue Ambien 5mg qhs; patient reports trazodone caused excessive dry mouth which resulted in cavities otherwise: - Groups and milieu therapy - Continue psychiatric medications. Titrated GBP to help with withdrawal as well. - Discharge planning. I spent minutes with the patient and/or on the patient floor today, greater than?50% of which was spent counseling/coordinating care. Patient educated on: diagnosis, medication risk/benefits and medical condition Informed Consent: understands Reason for contiued inpatient stay Substantial Risk for: stable for discharge
[2022-05-01 17:40] VITALS: BP 118/69; PULSE 86; RESP 16; TEMP 35.9; O2SAT 97
[2022-05-01] MEDS: Zolpidem Tartrate 5 MG TABLET PO (19:21)
[2022-05-01] MEDS: Amitriptyline HCl 25 MG TABLET PO (19:21)
[2022-05-01] MEDS: Prazosin HCL 1 MG CAPSULE 3 MG PO (19:21)
[2022-05-01] MEDS: traZODone HCL 50 MG TABLET PO (20:06)
[2022-05-02] MEDS: traZODone HCL 50 MG TABLET PO ×2 (01:15→20:14)
[2022-05-02 06:00] VITALS: BP 145/84; PULSE 72; RESP 18; TEMP 36.6; O2SAT 100
[2022-05-02] MEDS: Buprenorphine/Naloxone 8/2 mg FILM 2 FILM SUBLINGUAL (08:58)
[2022-05-02] MEDS: LORazepam 1 MG TABLET PO (08:59)
[2022-05-02] MEDS: NaPROXEN 250 MG TABLET PO ×2 (08:59→20:15)
[2022-05-02] MEDS: Nicotine 21 MG PATCH.TD24 TRANSDERMA (08:59)
[2022-05-02] MEDS: buPROPion HCl XL 150 MG TAB.ER.24H 450 MG PO (08:59)
[2022-05-02] MEDS: Gabapentin 400 MG CAPSULE 800 MG PO ×4 (08:59→20:15)
[2022-05-02] MEDS: Thiamine HCL 100 MG TABLET 50 MG PO (09:00)
[2022-05-02] MEDS: Cyclobenzaprine HCl 10 MG TABLET PO ×3 (09:00→20:15)
[2022-05-02] MEDS: Folic Acid 1 MG TABLET PO (09:00)
[2022-05-02] MEDS: Dextroamphetamine/Amphetamine XR 10 MG CAP.ER.24H 20 MG PO (09:00)
[2022-05-02] MEDS: Multivitamin TABLET 1 TAB PO (09:00)
[2022-05-02] MEDS: metroNIDAZOLE 0.75 % Gel 45 GM TUBE 1 APPL TOPICAL (09:35)
[2022-05-02] MEDS: Pyridoxine HCl (Vitamin B6) 50 MG TABLET PO (09:35)
[2022-05-02] MEDS: Trolamine Salicylate 10 % Cream 85 GM TUBE 1 APPL TOPICAL (09:58)
--- NOTE | 2022-05-02 10:14 | P.PNPSI_ITS ---
Subjective Subjective Date of Service: 05/02/22 Reason For Visit: Depression, polysubstance abuse D/O;SI Interim History: Patient reports he is in a good mood and overall doing well.? He asks for discharge saying that he feels he has been on the unit long enough and appreciates the help but does not want to wait here anymore for program.? Instead he has secured himself a place to stay with a friend.? Patient feels he understand the risks of relapse but that he is in a better place than has been in a long time and is optimistic about staying sober.? Patient says he does not want to stay on the unit too long and risk starting to feel overwhelmed by acuity and decompensate. Pt is polite but adamant about his plan. Mental Status Exam Mental Status Exam Narrative: Pt is alert and oriented; behavior is cooperative, engaged and calm; patient is not in distress; dressed in casual attire, bald head, adequate hygiene; mood is described as good and affect congruent; eye contact appropriate; Speech is normal volume, rate and prosody; no psychomotor retardation present; thought process is organized and goal directed; Thought content is on tx, recovery; otherwise pertinent to relevant topics and without any delusional content, paranoid ideations or grandiosity; denies any SI/HI. There is no evidence of perceptual disturbance. Patients insight and judgment are fair. Diagnostics Vital Signs (24Hr): Vital Signs - 24 hr 05/01/22 17:40 05/02/22 06:00 Temperature 96.7 F L 97.8 F Pulse Rate 86 72 Respiratory Rate 16 18 Blood Pressure 118/69 145/84 H Pulse Oximetry 97 100 Oxygen Delivery Method Room Air Room Air Labs Results: 04/20/22 11:17 Medications Medications Current Medications Acetaminophen (Acetaminophen 325 Mg Tablet) 650 mg PO Q6H PRN PRN Reason: Pain, Mild (Pain Scale 1-3) Last Admin: 05/01/22 14:41 Dose: 650 mg Al Hydroxide/Mg Hydroxide (Magnesium Hydrox/Alum Hydrox 30 Ml Oral.Susp) 30 ml PO Q6H PRN PRN Reason: Heartburn/Nausea Amitriptyline HCl (Amitriptyline Hcl 25 Mg Tablet) 25 mg PO BEDTIME [facility] Last Admin: 05/01/22 19:21 Dose: 25 mg Amphetamine/Dextroamphetamine (Dextroamphetamine/Amphetamine Xr 10 Mg Cap.Er.24h ) 20 mg PO DAILY [facility] Last Admin: 05/02/22 09:00 Dose: 20 mg Buprenorphine/Naloxone (Buprenorphine/Naloxone 8/2 Mg Film) 2 film SUBLINGUAL DAILY [facility] Last Admin: 05/02/22 08:58 Dose: 2 film Bupropion HCl (Bupropion Hcl Xl 150 Mg Tab.Er.24h) 450 mg PO DAILY [facility] Last Admin: 05/02/22 08:59 Dose: 450 mg Cyclobenzaprine HCl (Cyclobenzaprine Hcl 10 Mg Tablet) 10 mg PO TID PRN PRN Reason: muscle spasm Last Admin: 05/02/22 09:00 Dose: 10 mg Folic Acid (Folic Acid 1 Mg Tablet) 1 mg PO DAILY [facility] Last Admin: 05/02/22 09:00 Dose: 1 mg Gabapentin (Gabapentin 400 Mg Capsule) 800 mg PO QID [facility] Last Admin: 05/02/22 08:59 Dose: 800 mg Hydroxyzine HCl (Hydroxyzine Hcl 25 Mg Tablet) 25 mg PO Q6H PRN PRN Reason: Anxiety Last Admin: 05/01/22 20:04 Dose: 25 mg Lorazepam (Lorazepam 1 Mg Tablet) 1 mg PO DAILY [facility] Last Admin: 05/02/22 08:59 Dose: 1 mg Magnesium Hydroxide (Milk Of Magnesia 30 Ml Oral.Susp) 30 ml PO DAILY PRN PRN Reason: Constipation Metronidazole (Metronidazole 0.75 % Gel 45 Gm Tube) 1 appl TOPICAL BID [facility] Last Admin: 05/02/22 09:35 Dose: 1 appl Multivitamins/Vitamin C (Multivitamin Tablet) 1 tab PO DAILY [facility] Last Admin: 05/02/22 09:00 Dose: 1 tab Naproxen (Naproxen 250 Mg Tablet) 250 mg PO BID [facility] Last Admin: 05/02/22 08:59 Dose: 250 mg Nicotine (Nicotine 21 Mg Patch.Td24) 21 mg TRANSDERMA DAILY [facility] Last Admin: 05/02/22 08:59 Dose: 21 mg Nicotine Polacrilex (Nicotine Polacrilex 2 Mg Gum) 2 mg BUCCAL Q2H PRN PRN Reason: Nicotine Cravings Last Admin: 05/01/22 12:54 Dose: 2 mg Ondansetron HCl (Ondansetron Odt 4 Mg Tab.Rapdis) 4 mg TRANSLINGU Q6H PRN PRN Reason: Nausea and Vomiting Polyethylene Glycol (Polyethylene Glycol 3350 17 Gm Powd.Pack) 17 gm PO DAILY PRN PRN Reason: Constipation Last Admin: 04/29/22 09:05 Dose: 17 gm Prazosin HCl (Prazosin Hcl 1 Mg Capsule) 3 mg PO BEDTIME [facility]; Protocol Last Admin: 05/01/22 19:21 Dose: 3 mg Pyridoxine HCl (Pyridoxine Hcl (Vitamin B6) 50 Mg Tablet) 50 mg PO DAILY [facility] Last Admin: 05/02/22 09:35 Dose: 50 mg Senna/Docusate Sodium (Sennosides/Docusate Sodium Tablet) 2 tab PO BEDTIME PRN PRN Reason: Constipation Last Admin: 04/25/22 14:51 Dose: 2 tab Thiamine HCl (Thiamine Hcl 100 Mg Tablet) 50 mg PO DAILY [facility] Last Admin: 05/02/22 09:00 Dose: 50 mg Trazodone HCl (Trazodone Hcl 50 Mg Tablet) 50 mg PO BEDTIME PRN PRN Reason: Insomnia Last Admin: 05/02/22 01:15 Dose: 50 mg Trolamine Salicylate (Trolamine Salicylate 10 % Cream 85 Gm Tube) 1 appl TOPICAL BID PRN; Protocol PRN Reason: hip pain Last Admin: 05/02/22 09:58 Dose: 1 appl Trolamine Salicylate (Trolamine Salicylate 10 % Cream 85 Gm Tube) 1 appl TOPICAL BID PRN; Protocol PRN Reason: right hip pain Zolpidem Tartrate (Zolpidem Tartrate 5 Mg Tablet) 5 mg PO BEDTIME [facility] Last Admin: 05/01/22 19:21 Dose: 5 mg Allergies Allergies Allergy/AdvReac Type Severity Reaction Status Date / Time phenobarbital AdvReac Vomiting Verified 11/12/21 15:48 Assessment & Plan Assessment & Plan (1) Major depression: Status: Acute Code(s): F32.9 - Major depressive disorder, single episode, unspecified Assessment and Plan: sad, but not depressed, no si (2) Drug overdose: Qualifiers: Encounter type: initial encounter Injury intent: intentional self-harm Qualified Code(s): T50.902A - Poisoning by unspecified drugs, medicaments and biological substances, intentional self-harm, initial encounter Status: Acute Code(s): T50.901A - Poisoning by unspecified drugs, medicaments and biological substances, accidental (unintentional), initial encounter (3) Chronic post-traumatic stress disorder (PTSD): Status: Acute Code(s): F43.12 - Post-traumatic stress disorder, chronic (4) Alcohol use disorder: Status: Chronic Assessment and Plan: 51 year old with history of depression and PSA/dependence admitted s/p OD and after observation on medicine for ETOH W/D. He continues with symptoms of the same. He is now feeling safe and future oriented and wants to get treatment again, (5) Opioid use disorder: Status: Chronic Code(s): F11.99 - Opioid use, unspecified with unspecified opioid-induced disorder Plan HPI: 51 year old with a history of depression, Polysubstance abuse/dependence including alcohol, who is admitted with an OD on multiple medications and as a transfer from the medical floor where he was watched for complicated alcohol withdrawal. Patient reports he OD;d on several of his medications because of increased depression and suicidality in the context of recent relapse on alcohol and cocaine. He reports he was drinking a 1/5th of hard liquor and 12 pack for the past month. 04/21: Zofran for nausea. Continue other medications as they are. 04/22 depressed but no SI; will start taper for Ativan; has not scored much on CIWA so will DC; will increase Gabapentin to previous dose 800mg TID; will titrate Wellbturin. 04/23 patient's mood is better and affect is noticeably brighter. Withdrawal mostly resolved and patient on Ativan taper. Patient is optimistic about getting back to sobriety and cites recent therapeutic sessions at previous admission and recent history of sustained sobriety as anchoring experiences. Patient asks for Vyvanse, Ambien and amitriptyline having been started on these at admission at [facility] this past month. Punch Press Feeder discussed risks/side effects of patient's medication regimen including these additions, including risks of combined with substance abuse; patient understands these risks. Punch Press Feeder is open to making changes though patient's disposition will affect prescriptions given at discharge, for if he is discharged to a program/structured environment, risks become very low. -discussed patient's hip problems and need for right-sided hip replacement; patient reports recent diagnosis of degenerative disc 04/25 remains stable; 04/26 no changes; 04/29 stable; waiting for program 04/30 stable. Will continue Ativan for few more days for extended taper; no Harry, will ask patient if he will tolerate Aspercreme 05/02 Patient remains stable.? Good mood, no SI and anxiety under good control.? He understands the risks of relapse but is optimistic about staying sober saying he is doing better now than he has in a long time.? He asks for discharge saying he feels ready to go and does not want wait on the unit any longer.? He is going to stay with a friend who lives locally.? Patient remains vulnerable to relapse and decompensation however he is stable and doing better than his former baseline; he is not in imminent risk for harm to self or others and his request for discharge honored. Punch Press Feeder explained concern about controlled substances since he is no longer going to a program where staff would be dispensing. Pt feels that he's fine, that he's never abused them and hopes scenario writer will continue. Punch Press Feeder agrees that to dc them would be detrimental for him and cause him to decompensate, making him more vulnerable to relapse. And it is scenario writer's opinion that the benefit of these medications outweighs the risk.? However in the past, when he has relapsed, he then gets depressed and when he becomes Suicidal he overdoses; since he is no longer going to program, scenario writer will only dispense a week's worth at a time. PLAN: ?Admit to M5. CV Aspercreme from right hip continue ativan 1mg daily for a few more days as taper Continue Prazosin 3mg qhs Continue gabapentin to 800 mg q.i.d. which patient was getting at last admission Continue amitriptyline 25 mg q.h.s. for insomnia and help with mood; patient was on this at [facility] in place of doxepin? Continue Adderall extended release q.a.m.; Vyvanse not available Continue Ambien 5mg qhs; patient reports trazodone caused excessive dry mouth which resulted in cavities otherwise: - Groups and milieu therapy - Continue psychiatric medications. Titrated GBP to help with withdrawal as well. - Discharge planning. I spent minutes with the patient and/or on the patient floor today, greater than?50% of which was spent counseling/coordinating care. Patient educated on: diagnosis, medication risk/benefits and substance abuse Informed Consent: understands Reason for contiued inpatient stay Substantial Risk for: stable for discharge
[2022-05-02] MEDS: hydrOXYzine HCL 25 MG TABLET PO ×2 (12:59→20:15)
[2022-05-02] MEDS: Acetaminophen 325 MG TABLET 650 MG PO (15:02)
[2022-05-02 19:40] VITALS: BP 124/90; PULSE 75; TEMP 36.7
[2022-05-02] MEDS: Zolpidem Tartrate 5 MG TABLET PO (20:15)
[2022-05-02] MEDS: Prazosin HCL 1 MG CAPSULE 3 MG PO (20:15)
[2022-05-02] MEDS: Amitriptyline HCl 25 MG TABLET PO (20:15)
[2022-05-03 07:58] VITALS: BP 121/68; PULSE 73; RESP 16; TEMP 36.9; O2SAT 98
[2022-05-03] MEDS: Buprenorphine/Naloxone 8/2 mg FILM 2 FILM SUBLINGUAL (08:43)
[2022-05-03] MEDS: Nicotine 21 MG PATCH.TD24 TRANSDERMA (08:43)
[2022-05-03] MEDS: Dextroamphetamine/Amphetamine XR 10 MG CAP.ER.24H 20 MG PO (08:44)
[2022-05-03] MEDS: Cyclobenzaprine HCl 10 MG TABLET PO (08:44)
[2022-05-03] MEDS: Pyridoxine HCl (Vitamin B6) 50 MG TABLET PO (08:44)
[2022-05-03] MEDS: Multivitamin TABLET 1 TAB PO (08:44)
[2022-05-03] MEDS: Gabapentin 400 MG CAPSULE 800 MG PO ×2 (08:44→13:34)
[2022-05-03] MEDS: buPROPion HCl XL 150 MG TAB.ER.24H 450 MG PO (08:44)
[2022-05-03] MEDS: NaPROXEN 250 MG TABLET PO (08:44)
[2022-05-03] MEDS: Folic Acid 1 MG TABLET PO (08:45)
[2022-05-03] MEDS: Thiamine HCL 100 MG TABLET 50 MG PO (08:45)
[2022-05-03] MEDS: LORazepam 1 MG TABLET PO (08:45)
--- NOTE | 2022-05-03 09:58 | PM.PSYDC ---
DS: Providers Provider Date of Service: 05/03/22 Date of admission: 04/19/22 12:40 Date of discharge: 05/03/22 Primary care physician: Jaime Physician Attending physician on admission: Rachele Lopez Attending physician on discharge: Alexander Rose DS: Diagnosis Discharge Diagnosis (1) Major depression: Status: Acute (2) Drug overdose: Status: Resolved (3) Chronic post-traumatic stress disorder (PTSD): Status: Acute (4) Alcohol use disorder: Status: Chronic (5) Opioid use disorder: Status: Chronic DS: Medications Discharge Medications Home Medications: Home Medications Medication Instructions Recorded Confirmed sennosides 8.6 mg-docusate sodium 2 tab PO BEDTIME PRN Constipation 04/17/22 04/17/22 50 mg tablet (Senna Plus) Previous Rx's Medication Instructions Recorded buprenorphine 8 mg-naloxone 2 mg 2 film sublingual DAILY #0 ea 03/11/22 sublingual film (Suboxone) polyethylene glycol 3350 17 gram 17 g PO DAILY PRN Constipation #30 03/11/22 oral powder packet ea amitriptyline 25 mg tablet 25 mg PO BEDTIME 30 days #30 tabs 05/03/22 bupropion HCl 450 mg 24 hr tablet, 450 mg PO DAILY 30 days #30 tabs 05/03/22 extended release cyclobenzaprine 10 mg tablet 10 mg PO TID PRN muscle spasm 30 05/03/22 days #90 tabs folic acid 1 mg tablet 1 mg PO DAILY 30 days #30 tabs 05/03/22 gabapentin 800 mg tablet 800 mg PO QID 7 days #28 tabs 05/03/22 hydroxyzine HCl 25 mg tablet 25 mg PO Q6H PRN Anxiety 30 days 05/03/22 #90 tabs lisdexamfetamine 20 mg capsule 20 mg PO QAM 30 days #30 caps 05/03/22 (Vyvanse) lorazepam 0.5 mg tablet 0.5 mg PO BID PRN anxiety 7 days 05/03/22 #14 tabs metronidazole 0.75 % topical gel 1 appl topical BID 30 days #45 05/03/22 grams multivitamin (Daily-Tony tablet) 1 tab PO DAILY 30 days #30 tabs 05/03/22 naproxen 250 mg tablet 250 mg PO BID 30 days #60 tabs 05/03/22 nicotine (polacrilex) 2 mg gum 2 mg buccal Q2H PRN Nicotine 05/03/22 Cravings 30 days #100 ea nicotine 21 mg/24 hr daily 21 mg transdermal DAILY 28 days 05/03/22 transdermal patch #28 ea prazosin 1 mg capsule 3 mg PO BEDTIME 30 days #90 caps 05/03/22 pyridoxine (vitamin B6) 50 mg 50 mg PO DAILY 30 days #30 tabs 05/03/22 tablet thiamine mononitrate (vit B1) 100 50 mg PO DAILY 30 days #15 tabs 05/03/22 mg tablet trazodone 50 mg tablet 50 mg PO BEDTIME PRN Insomnia 30 05/03/22 days #30 tabs zolpidem 5 mg tablet 5 mg PO BEDTIME 7 days #7 tabs 05/03/22 Mental Status Exam Mental Status Exam Narrative: Pt is alert and oriented; behavior is cooperative, engaged and calm; patient is not in distress; dressed in casual attire, bald head, adequate hygiene; mood is described as good and affect congruent; eye contact appropriate; Speech is normal volume, rate and prosody; no psychomotor retardation present; thought process is organized and goal directed; Thought content is on tx, recovery; otherwise pertinent to relevant topics and without any delusional content, paranoid ideations or grandiosity; denies any SI/HI. There is no evidence of perceptual disturbance. Patients insight and judgment are fair. DS: Summary Hospital Course Hospital Course: HPI: 51 year old with a history of depression, Polysubstance abuse/dependence including alcohol, who is admitted with an OD on multiple medications and as a transfer from the medical floor where he was watched for complicated alcohol withdrawal. Patient reports he OD;d on several of his medications because of increased depression and suicidality in the context of recent relapse on alcohol and cocaine. He reports he was drinking a 1/5th of hard liquor and 12 pack for the past month. Hospital course: On admission, patient was depressed but without any SI. He was treated with CIWA withdrawal and put on an Ativan taper. Patient's home medications were restarted and titrated up back to home dose Pretty soon, patient's mood became significantly better and affect is noticeably brighter.? Withdrawal mostly resolved and patient on Ativan taper.? Patient is optimistic about getting back to sobriety and cites recent therapeutic sessions at previous admission and recent history of sustained sobriety as anchoring experiences.? Patient asks for Vyvanse, Ambien and amitriptyline having been started on these at admission at [facility] this past month.? Restaurant Associate discussed risks/side effects of patient's medication regimen including these additions, including risks of combined with substance abuse; patient understands these risks.? Restaurant Associate discussed patient's disposition may affect prescriptions given at discharge. Patient agreed. He was hoping to get into a program. -discussed patient's hip problems and need for right-sided hip replacement; patient reports recent diagnosis of degenerative disc Patient remained in good mood, without any SI; he was engaged in treatment, attending to all groups. He was appropriate with peers and staff and continued to demonstrate good behavioral and impulse control. Restaurant Associate and staff both agreed that patient was improved beyond what was previously considered his baseline during prior admissions; patient agreed with this assessment and explained he had dealt with some of his PTSD few months ago which has made a big difference in his ability to rebound and overall optimism. Patient felt ready for discharge but was hoping to get into a program however as there were no openings, he eventually asked for discharge saying he feels ready to go and does not want wait on the unit any longer.? He is going to stay with a friend who lives locally. He was in Good mood, no SI, future oriented and anxiety under good control.? He understands the risks of relapse but is optimistic about staying sober saying he is doing better now than he has in a long time.? Patient remains vulnerable to relapse and decompensation however he is stable and doing better than his former baseline; he is not in imminent risk for harm to self or others and his request for discharge honored. Restaurant Associate explained concern about controlled substances since he is no longer going to a program where staff would be dispensing. Pt feels that he's fine, that he's never abused them and hopes telegraphic typewriter installer will continue. Restaurant Associate agrees that to discharge patient without these medications would be detrimental for him and mostly likley cause him to decompensate, making him more vulnerable to relapse. It is thus telegraphic typewriter installer's opinion that the benefit of these medications outweighs the risk.? To mitigate this risk, telegraphic typewriter installer will only dispense a week's worth at a time. Time spent discussing smoking cessation with patient: 3 to 10 minutes Status at Discharge Functional status at discharge: independent ambulation Overall status at discharge: patient is back to baseline Time Spent with Patient Time attestation: Total time spent providing and/or coordinating discharge services: Time spent: Less than 30 minutes Discharge Plan Discharge Anticipated Discharge Date/Time: 05/03/22 13:00 Patient Disposition: Residential Discharge Diagnosis: MDD, recurrent, severe in full remission Referrals: Therapy & Psych: [facility] [Other] - 1 Week (Call on Friday, 05/06, to ask for your appointments. Tell them you were a hospital discharge and the referral was emailed to them on Friday. ) Suboxone: [place] ([facility] [Other] - 05/06/22 2:30 pm (Enter through Main Entrance and take elevator to the 4th floor ) [facility] [Provider Group] - 06/03/22 1:00 pm (Psychiatric Assessment- Jolene Good) [facility] [Outside] - 05/07/22 2:15 pm (Intake-Rosalva Burdick) [facility] [Outside] - 2 Weeks (Medication Management -Jolene Good) [facility] [Nurse Practitioner] - 1 Week (LEFT MESSAGE TO CALL US BACK FOR FOLLOW-UP APPOINTMENT. PLEASE CALL TO VERIFY APPT DATE AND TIME) Discharge Medications: New nicotine (polacrilex) 2 mg Gum 2 mg buccal Q2H PRN (Reason: Nicotine Cravings) 30 Days Qty: 100 0RF prazosin 1 mg Capsule 3 mg PO BEDTIME 30 Days Qty: 90 0RF Protocol: Hold for SBP< HOLD for SBP < : 90 amitriptyline 25 mg Tablet 25 mg PO BEDTIME 30 Days Qty: 30 0RF trazodone 50 mg Tablet 50 mg PO BEDTIME PRN (Reason: Insomnia) 30 Days Qty: 30 0RF zolpidem 5 mg Tablet 5 mg PO BEDTIME 7 Days Qty: 7 3RF Continued polyethylene glycol 3350 17 gram Powder In Packet 17 g PO DAILY PRN (Reason: Constipation) Qty: 30 0RF sennosides-docusate sodium [Senna Plus] 8.6-50 mg tablet 2 tab PO BEDTIME PRN (Reason: Constipation) multivitamin [Daily-Tony] Tablet 1 tab PO DAILY 30 Days Qty: 30 0RF cyclobenzaprine 10 mg Tablet 10 mg PO TID PRN (Reason: muscle spasm) 30 Days Qty: 90 0RF naproxen 250 mg tablet 250 mg PO BID 30 Days Qty: 60 0RF nicotine 21 mg/24 hr Patch 24 Hour 21 mg transdermal DAILY 28 Days Qty: 28 0RF pyridoxine (vitamin B6) 50 mg Tablet 50 mg PO DAILY 30 Days Qty: 30 0RF folic acid 1 mg Tablet 1 mg PO DAILY 30 Days Qty: 30 0RF hydroxyzine HCl 25 mg Tablet 25 mg PO Q6H PRN (Reason: Anxiety) 30 Days Qty: 90 0RF metronidazole 0.75 % Gel 1 appl topical BID 30 Days Qty: 45 0RF thiamine mononitrate (vit B1) 100 mg Tablet 50 mg PO DAILY 30 Days Qty: 15 0RF buprenorphine-naloxone [Suboxone] 8-2 mg Film 2 film sublingual DAILY 3 Days Qty: 6 0RF Changed lorazepam 0.5 mg tablet 0.5 mg PO BID PRN (Reason: anxiety) 7 Days Qty: 14 3RF gabapentin 800 mg tablet 800 mg PO QID 7 Days Qty: 28 3RF Vyvanse 20 mg capsule 20 mg PO QAM 30 Days Qty: 30 0RF bupropion HCl 450 mg tablet extended release 24 hr 450 mg PO DAILY 30 Days Qty: 30 0RF Discontinued prazosin 1 mg Capsule 2 mg PO BEDTIME Qty: 60 0RF Protocol: Hold for SBP< HOLD for SBP < : 90 melatonin 3 mg Tablet 6 mg PO BEDTIME Qty: 60 0RF Discharge Orders: Discharge Order (Routine); Ordered 05/03/22 Ordered By: Joycelyn Jones Diet: Regular diet Activity on Discharge: As tolerated Stand Alone Forms: Patient Portal Discharge page, Community Support Care Plan Goals: Maintain mood and safe behaviors Take medications as prescribed Continue to pursue sobriety Practice coping skills Continue with outpatient providers and reach out to them as needed Health Concerns: Mood stability and behaviors Sobriety Chronic right Hip pain Plan of Treatment: Follow up with your PCP, psychiatric provider and other outpatient providers regarding above concerns Take medications as prescribed Assessment: Risk assessment at time of discharge:? Patient was interviewed prior to discharge and found to be fully oriented and without any SI or HI. Patient has insight and demonstrates good judgment in terms of wanting to pursue treatment. Patient is not in imminent risk of harm to self or others and has a safety plan that includes presenting to the closest ER or calling 911 if feeling unsafe.? Patient has been observed closely by nursing and unit staff throughout admission; patient has not engaged in any behaviors that suggest dangerousness to self or others and has demonstrated appropriate behaviors and impulse control Discharge Date/Time: 05/03/22 14:15
[2022-05-03] MEDS: Trolamine Salicylate 10 % Cream 85 GM TUBE 1 APPL TOPICAL (10:46)
[2022-05-03] MEDS: metroNIDAZOLE 0.75 % Gel 45 GM TUBE 1 APPL TOPICAL (10:46)
[2022-05-03] MEDS: hydrOXYzine HCL 25 MG TABLET PO (13:34)
== END 2022-05-03 14:15 | disposition home or self-care (01) | DRG 754 ==
PROVIDERS: Psychiatry & Neurology Psychiatry; Admitting Provider Psychiatry & Neurology Psychiatry; Visit Provider Psychiatry & Neurology Psychiatry
DX: F32.9 Major depressive disorder, single episode, unspecified (principal); R45.851 Suicidal ideations; F10.10 Alcohol abuse, uncomplicated; Z91.51 Personal history of suicidal behavior; F19.10 Other psychoactive substance abuse, uncomplicated; F43.12 Post-traumatic stress disorder, chronic; F17.210 Nicotine dependence, cigarettes, uncomplicated; Z71.6 Tobacco abuse counseling; Z88.8 Allergy status to other drugs, medicaments and biological substances; Z79.899 Other long term (current) drug therapy
CPT/HCPCS: 36415; 80053

== ENCOUNTER 2022-05-22 20:17 | Inpatient (IN) | payer OTHER, MEDICAID, SELFPAY ==
[2022-05-22] VITALS (10 sets, daily range): BP systolic 113–139; BP diastolic 54–74; PULSE 102–114; RESP 13–21; TEMP 37.2; O2SAT 91–98; BMI 32.7
--- NOTE | ~2022-05-22 | CT_ITS ---
EXAMINATION: CT HEAD WITHOUT CONTRAST CLINICAL INFORMATION: Fall acute mental status change, not responding COMPARISON: Head CT 02/28/2022 TECHNIQUE: Imaging was performed from the skull base to vertex without intravenous administration of contrast. This CT examination was performed using dose optimization techniques as appropriate, variously including the following: *Automated exposure control *Adjustment of mA and/or kV according to patient size (this includes techniques or standardized protocols for targeted exams where dose is matched to indication/reason for exam; i.e. extremities or head) *Use of iterative reconstruction technique Total exam dose length product: 860 mGy-cm FINDINGS: No intra or extra-axial fluid collection, hemorrhage, or mass. No ventriculomegaly. No midline shift or herniation. Basal cisterns are patent. Gates-white matter differentiation is maintained. Apparent hypoattenuation in the occipital lobes bilaterally is favored artifactual. No territorial encephalomalacia. No significant volume loss. There is no abnormal attenuation within the brain parenchyma. No calvarial fracture or soft tissue abnormality. The mastoid air cells and visualized portions of the paranasal sinuses are well aerated. CT/CT head for stroke IMPRESSION: 1. No acute intracranial pathology. This critical result was discussed with Yandy Cruz at 8:39 PM on 05/22/2022 and it was ascertained that the content and urgency of the report was understood at the time of direct communication.
--- NOTE | ~2022-05-22 | CT_ITS ---
EXAMINATION: CT ABDOMEN AND PELVIS WITH CONTRAST CLINICAL INFORMATION: Pain status-post trauma. COMPARISON: None TECHNIQUE: Multidetector volumetric images were obtained from the superior aspect of the liver through the pubic symphysis following administration 85 mL of Omnipaque 350 intravenous contrast. Sagittal and coronal reformatted images were obtained on the technologist's workstation. Oral contrast: No This CT examination was performed using dose optimization techniques as appropriate, variously including the following: *Automated exposure control *Adjustment of mA and/or kV according to patient size (this includes techniques or standardized protocols for targeted exams where dose is matched to indication/reason for exam; i.e. extremities or head) *Use of iterative reconstruction technique DLP: 3331 mGy-cm (head, chest, abdomen and pelvis). FINDINGS: LUNG BASES: There is bibasilar dependent hypoaeration. LIVER, GALLBLADDER, AND BILIARY TREE: The liver is normal in size, shape, and generally diminished in attenuation. No focal hepatic lesion or biliary ductal dilatation is present. The gallbladder is unremarkable with no evidence of radiopaque gallstones, gallbladder wall thickening, or obvious pericholecystic inflammatory changes. PANCREAS: Unremarkable. SPLEEN: Unremarkable. ADRENAL GLANDS: Unremarkable. KIDNEYS AND URETERS: The kidneys are normal in size, shape, and attenuation. No hydronephrosis, hydroureter, or calculi seen. No perinephric stranding. BLADDER: Unremarkable. GASTROINTESTINAL TRACT: The small and large bowel are unremarkable. The appendix is unremarkable. ABDOMINAL WALL: No significant hernia is appreciated. LYMPH NODES: Normal. VASCULAR: Unremarkable. PELVIC VISCERA: The prostate and seminal vesicles are unremarkable. OSSEOUS STRUCTURES: There is multi-level mild to moderate thoracolumbar degenerative disease, spondylosis and facet arthropathy. There are degenerative changes of the hips. No acute or aggressive osseous abnormality is seen. CT/CT abdomen pelvis w IV con IMPRESSION: 1. No acute traumatic finding is seen. There is no parenchymal organ laceration or hemorrhage. No free intraperitoneal air or fluid is seen. There is no acute osseous finding. 2. There is hepatic steatosis. Fleischner guidelines were followed.
--- NOTE | ~2022-05-22 | CT_ITS ---
EXAMINATION: CT CERVICAL SPINE WITHOUT CONTRAST CLINICAL INFORMATION: Neck pain status post fall COMPARISON: None. TECHNIQUE: Contiguous helical images of the cervical spine were obtained without IV contrast. Multiplanar reconstructions were performed. This CT examination was performed using dose optimization techniques as appropriate, variously including the following: *Automated exposure control *Adjustment of mA and/or kV according to patient size (this includes techniques or standardized protocols for targeted exams where dose is matched to indication/reason for exam; i.e. extremities or head) *Use of iterative reconstruction technique DLP: 784 mGy-cm FINDINGS: Alignment:Normal. No subluxation. Vertebra:No acute fracture. No prevertebral soft tissue swelling. Degenerative disc disease:Mild multilevel cervical spondylosis with scattered small endplate osteophytes. Minimal disc height loss at C5-C6. Intervertebral disc heights otherwise maintained. Other findings:No cervical lymphadenopathy. Visualized major salivary glands and thyroid gland are unremarkable. Visualized lung apices are clear. Prior healed left mandibular head/neck fracture with anterior translation of the left mandibular condyle relative to the glenoid fossa noted. CT/CT cervical spine wo IV con IMPRESSION: No traumatic subluxation or acute cervical spine fracture.
--- NOTE | ~2022-05-22 | CT_ITS ---
EXAMINATION: CT ANGIOGRAM HEAD CT ANGIOGRAM NECK CLINICAL INFORMATION: Altered mental status. Patient found down on street. Unresponsive. Fall. COMPARISON: CT head from 05/22/2022. TECHNIQUE: Initial noncontrast [employer] scout imaging of the head and neck was performed. Comparison is made with noncontrast head CT from earlier today. Test bolus sequences followed by intravenous administration 85 mL of Omnipaque 350. Helical imaging was performed in the axial plane from the aortic arch to the skull vertex. Delayed postcontrast imaging of the head was also performed. The data was processed at the histotechnologist supervisor's workstation for generation of MIP sequences. Angled MIPs and volume rendered reformatted images were also generated at an offline 3D workstation. Stenoses are assessed in accordance with NASCET criteria unless otherwise indicated. This CT examination was performed using dose optimization techniques as appropriate, variously including the following: *Automated exposure control. *Adjustment of mA and/or kV according to patient size (this includes techniques or standardized protocols for targeted exams where dose is matched to indication/reason for exam; i.e. extremities or head). *Use of iterative reconstruction technique. DLP: 2094 mGy-cm FINDINGS: CT Head: Moderately motion degraded exam. There appears to be loss of roper-white matter differentiation in the posterior aspect of the left occipital lobe on noncontrast imaging. However, this is not as apparent on delayed postcontrast imaging. No demonstrated additional loss of roper-white matter differentiation. No evidence of acute intracranial hemorrhage. The ventricles are normal in size and configuration. No evidence for obstructive hydrocephalus. No abnormal mass effect or midline shift. No extra-axial fluid collections. No pathologic intra-axial enhancement. No overt acute soft tissue or osseous abnormalities. Mild mucosal thickening of the paranasal sinuses. The mastoid air cells and middle ear cavities are clear. CT Neck: No demonstrated abnormalities of the cervical soft tissues. Mild multilevel degenerative spondylosis arthropathy of the cervical spine. Moderate degenerative disc disease at C3-C4 and C5-C6. No demonstrated overt fracture of the cervical spine. CT Upper Chest: No demonstrated abnormalities of the visualized lung apices and upper mediastinum are within normal limits. Neck CTA: Aortic Arch: Normal contour and caliber. Classic 3 vessel branching pattern of the aortic arch. Great Vessel Origins: No significant stenosis of the branch origins. Right Common Carotid Artery: No focal stenosis or occlusion. Cervical Right Internal Carotid Artery: Evaluation is limited secondary to motion degradation. No definitive occlusion or flow-limiting stenosis. Left Common Carotid Artery: No focal stenosis or occlusion. Cervical Left Internal Carotid Artery: Evaluation is limited secondary to motion degradation. No definitive occlusion or flow-limiting stenosis. Cervical Vertebral Arteries: Co-dominant. Evaluation is limited secondary to motion degradation. No definitive occlusion or flow-limiting stenosis. Brain CTA: Intracranial Internal Carotid Arteries: Evaluation is limited secondary to motion degradation. No definitive occlusion or flow-limiting stenosis. Right Anterior Cerebral Artery: Normal A1 segment. There appears to be opacification of the distal QAMAR segments. Left Anterior Cerebral Artery: The A1 segment is diminutive. There appears to be opacification of the distal QAMAR segments. Anterior Communicating Artery: No demonstrated abnormality in the region of the anterior communicating artery. Right Middle Cerebral Artery: Normal M1 segment of the MCA without focal stenosis or occlusion. Relatively symmetric arborization. Left Middle Cerebral Artery: Normal M1 segment of the MCA without focal stenosis or occlusion. Relatively symmetric arborization. Right Vertebral Artery: Opacification of the V4 segment appears maintained. Left Vertebral Artery: Opacification of the V4 segment appears maintained. Basilar Artery: Normal without focal stenosis or occlusion. Normal appearance of the proximal superior cerebellar arteries. Right Posterior Cerebral Artery: Normal P1 segment. There appears to be opacification of the distal CUSTOMER FIELD REPRESENTATIVE segments. Left Posterior Cerebral Artery: Normal P1 segment. There appears to be opacification of the distal CUSTOMER FIELD REPRESENTATIVE segments. Normal opacification of the superior sagittal, straight, transverse, and sigmoid sinuses. CT/CT angio head neck stroke IMPRESSION: Significantly motion degraded exam. 1. Within the limitations of this exam, there is no overtly demonstrated proximal arterial occlusion. 2. Potential loss of roper-white matter differentiation within the posterior aspect of the left occipital lobe. However, this is not as well delineated on postcontrast imaging. While this may represent an evolving infarct of the left occipital lobe, it is also possible that the appearance is artifactual in nature. 3. No evidence of acute intracranial hemorrhage. This critical result was discussed with Yandy Cruz NP at 21:41 on 05/22/2023 2 and it was ascertained that the content and urgency of the report was understood at the time of direct communication.
--- NOTE | ~2022-05-22 | CT_ITS ---
EXAMINATION: CT CHEST WITH CONTRAST CLINICAL INFORMATION: Fall with trauma to the chest COMPARISON: None TECHNIQUE: Multidetector volumetric CT imaging of the chest was obtained after the administration of 85 mL of Omnipaque 350 intravenous contrast without immediate adverse reactions. Axial MIP volume rendering provided. Sagittal and coronal reformatted images were obtained. This CT examination was performed using dose optimization techniques as appropriate, variously including the following: *Automated exposure control *Adjustment of mA and/or kV according to patient size (this includes techniques or standardized protocols for targeted exams where dose is matched to indication/reason for exam; i.e. extremities or head) *Use of iterative reconstruction technique DLP: 363 mGy-cm FINDINGS: LUNGS: Hazy dependent atelectasis bilaterally. Mild linear subsegmental atelectasis versus mild scarring in the lingula. No airspace consolidation. Small right lower lobe calcified granuloma. Small 3 mm perifissural nodule in the left lower lobe along the oblique fissure, likely representing a benign intrapulmonary lymph node, series 20 image 351. No other pulmonary nodules. Central through segmental airways are clear. MEDIASTINUM: No cardiomegaly or pericardial effusion. No thoracic aortic aneurysm or gross dissection. No mediastinal hematoma. Normal caliber central pulmonary trunk. No mediastinal hematoma. No mediastinal or hilar lymphadenopathy. No appreciable coronary artery vascular calcifications. PLEURA: No pleural effusion. No pneumothorax. AXILLA: No lymphadenopathy. UPPER ABDOMEN: Unremarkable OSSEOUS STRUCTURES: No acute fracture. No suspicious appearing osseous lesion. Mild multilevel degenerative disc disease in the visualized cervical and thoracic spine. CT/CT chest w IV con IMPRESSION: 1. No acute traumatic injury identified in the chest. 2. No pneumothorax, airspace consolidation or pleural effusion. 3. No acute fracture identified. 4. Small 3 mm left lower lobe pulmonary nodule, likely intrapulmonary lymph node. Per Fleischner Society guidelines, if the patient is high risk for pulmonary malignancy consider optional low-dose chest CT follow-up in 12 months. If low risk, no follow-up required.
--- NOTE | 2022-05-22 20:18 | ECG_ITS ---
Test Reason : OVERDOSE Blood Pressure : / mmHG Vent. Rate : 106 BPM Atrial Rate : 106 BPM P-R Int : 136 ms QRS Dur : 096 ms QT Int : 408 ms P-R-T Axes : 045 011 061 degrees QTc Int : 541 ms Sinus tachycardia Prolonged QT Abnormal ECG When compared with ECG of 18-APR-2022 08:25, QT has lengthened Referred By: Yandy Cruz Electronically Signed By:ALEXIS BRANDT MD
--- NOTE | 2022-05-22 20:22 | ED_ITS ---
HPI - General Adult General Chief complaint: Overdose Stated complaint: FALL, RESPONSIVE TO PAINFULL STIMULI ONLY Time Seen by Provider: 05/22/22 20:53 Source: EMS Mode of arrival: EMS Limitations: altered mental status (Patient not responding) History of Present Illness HPI narrative: This is a 51-year-old male history of opiate use disorder, PTSD, alcohol use disorder, major depression, suicide attempt presenting to the emergency department via ambulance for altered mental status, EMS received a call for a in dividual who was found on the ground, not responsive, initially was only responsive to self however at this time patient is not answering any questions, noted to have horizontal nystagmus on exam. Patient was 91% on room air he was placed on 4 L and his O2 went up to 96%. Patient is not on any blood thinners that we know of, based off of his previous medication reconciliation. Unable to obtain an accurate review of systems. Unable to obtain NIH stroke scale is patient is altered and not answering questions. Related Data Home Medications Medication Instructions Recorded Confirmed sennosides 8.6 mg-docusate sodium 2 tab PO BEDTIME PRN Constipation 04/17/22 04/17/22 50 mg tablet (Senna Plus) Previous Rx's Medication Instructions Recorded polyethylene glycol 3350 17 gram 17 g PO DAILY PRN Constipation #30 03/11/22 oral powder packet ea amitriptyline 25 mg tablet 25 mg PO BEDTIME 30 days #30 tabs 05/03/22 buprenorphine 8 mg-naloxone 2 mg 2 film sublingual DAILY 3 days #6 05/03/22 sublingual film (Suboxone) ea bupropion HCl 450 mg 24 hr tablet, 450 mg PO DAILY 30 days #30 tabs 05/03/22 extended release cyclobenzaprine 10 mg tablet 10 mg PO TID PRN muscle spasm 30 05/03/22 days #90 tabs folic acid 1 mg tablet 1 mg PO DAILY 30 days #30 tabs 05/03/22 gabapentin 800 mg tablet 800 mg PO QID 7 days #28 tabs 05/03/22 hydroxyzine HCl 25 mg tablet 25 mg PO Q6H PRN Anxiety 30 days 05/03/22 #90 tabs lisdexamfetamine 20 mg capsule 20 mg PO QAM 30 days #30 caps 05/03/22 (Vyvanse) lorazepam 0.5 mg tablet 0.5 mg PO BID PRN anxiety 7 days 05/03/22 #14 tabs metronidazole 0.75 % topical gel 1 appl topical BID 30 days #45 05/03/22 grams multivitamin (Daily-Tony tablet) 1 tab PO DAILY 30 days #30 tabs 05/03/22 naproxen 250 mg tablet 250 mg PO BID 30 days #60 tabs 05/03/22 nicotine (polacrilex) 2 mg gum 2 mg buccal Q2H PRN Nicotine 05/03/22 Cravings 30 days #100 ea nicotine 21 mg/24 hr daily 21 mg transdermal DAILY 28 days 05/03/22 transdermal patch #28 ea prazosin 1 mg capsule 3 mg PO BEDTIME 30 days #90 caps 05/03/22 pyridoxine (vitamin B6) 50 mg 50 mg PO DAILY 30 days #30 tabs 05/03/22 tablet thiamine mononitrate (vit B1) 100 50 mg PO DAILY 30 days #15 tabs 05/03/22 mg tablet trazodone 50 mg tablet 50 mg PO BEDTIME PRN Insomnia 30 05/03/22 days #30 tabs zolpidem 5 mg tablet 5 mg PO BEDTIME 7 days #7 tabs 05/03/22 Allergies Allergy/AdvReac Type Severity Reaction Status Date / Time phenobarbital AdvReac Vomiting Verified 11/12/21 15:48 Review of Systems Review of Systems: Yes Unobtainable due to mental status PMFSH Past Medical History Attestation statement: The following information was validated with the patient. Source: old records reviewed and nursing notes reviewed Medical History Alcohol dependence Alcohol use disorder Anxiety Chronic post-traumatic stress disorder (PTSD) Depression EtOH dependence Hepatitis C antibody positive in blood MDD (major depressive disorder), recurrent episode, severe Surgical History History of mandibular surgery Family History Family History Mother Diabetes mellitus Father Leukemia Social History Social History Household Members: Friend(s) Household Members Other:: [employer] Housing: Apartment Housing Other:: [employer] program Do you presently have visiting nurse or other home services: No Unable to assess alcohol history related to: Unknown Alcohol intake: current Alcohol intake frequency: a few times a week Alcohol type: beer and hard liquor Patient Tobacco Use Status: Current everyday Tobacco user Tobacco use type: Cigarette Cigarette Packs Per Day: 0.5 Cigarettes Per Day: 20 Years Smoked: 10+ e-Cigarette/Vaping Use: Never Used Second Hand Smoke Exposure: No Substance Use Type: Crack/Cocaine and Opiates Advance Directives: No Advance Directives Information Provided: No service: No Current occupational status: unemployed Sexual orientation: Straight/Heterosexual Physical Exam ED Vital Signs: Vital Signs - 24 hr 05/22/22 21:23 05/22/22 21:58 05/22/22 22:41 Temperature 99.0 F Pulse Rate 105 H 105 H Respiratory Rate 21 H 17 Blood Pressure 127/62 131/57 L Pulse Oximetry 98 Oxygen Delivery Method Nasal Cannula 05/22/22 22:44 Temperature Pulse Rate 105 H Respiratory Rate 13 Blood Pressure 139/66 Pulse Oximetry Oxygen Delivery Method BMI result Body Mass Index 32.7 Vital significant for 91% on room air, patient placed on 4 L saturating 96%. Appearance: Patient awake only to painful stimuli.? No acute distress.? Head: Normocephalic, atraumatic, no step-offs or deformities Eyes: Pupils equal, round and reactive to light.? Horizontal nystagmus noted. ENT: Pharynx normal.? Neck: Normal inspection.? Neck supple.? CVS: Normal heart rate and rhythm.? Pulses normal.? Respiratory: No respiratory distress.? Breath sounds normal.? Abdomen: Soft and nontender.? Skin: Skin warm and dry.? Normal skin color.? Normal skin turgor.? Extremities: No lower extremity edema.? No calf ttp. 5/5 strength to bilateral upper and lower extremities Neuro: Patient awake only to painful stimuli. Unable to obtain accurate neurological exam due to patient's mental status. Unable to obtain NIH stroke scale. GCS-4 E(2) V(1) M (1) Course Reevaluation(s) Reevaluation #1: Narcan was given and patient is now responding telling us he used drugs all day, unable to tell us how much. Time: 20:40 Reevaluation #2: Difficult to obtain labs per nursing patient tough stick. Patient also now refusing labs and not cooperative Time: 21:42 Reevaluation #3: Patient uncooperative, kicking, screaming, threat to self and others, medication restraints ordered for this time. Initially patient was agreeable to take p.o. medications I had given Benadryl, Ativan and Haldol p.o.. Despite this patient is still combative, aggressive therefore Geodon was ordered by my attending. Time: 22:35 Additional Reevaluation(s): 2301 Patient again fighting, screaming, biting, uncooperative therefore 5 mg of IM Haldol ordered as well as 4 point restraints. Patient again threat to self and others. Security and nursing staff at bedside. 0012 Nursing able to get a line and patient's right foot, labs were sent. Patient is still fighting despite 4 point restraints, patient diaphoretic there is concerns for rhabdomyolysis. Will initiate fluids. Will give ketamine for behavioral restraint.. Head CT with no acute findings. CTA with no large vessel occlusion. Potential loss of roper white matter differentiation within the posterior aspect likely secondary to artifact I do not suspect infarct as patient did respond well to Narcan and had a nonfocal neuro exam after re-evaluation. No evidence of acute intracranial hemorrhage. Cervical spine with no traumatic subluxation or acute cervical spine fracture. CT of the chest with no acute traumatic injury. No pneumothorax, airspace consolidation or pleural effusion noted. No acute fractures noted. Small 3 mm left lower lobe pulmonary nodule likely intrapulmonary lymph node. 0038 CBC appears to be around patient's baseline however platelets lower than usual no evidence of bleeding on CT scans. Chemistry with elevated anion gap likely secondary to polysubstance abuse and/or ethanol abuse. Patient's total creatinine kinase elevated consistent with rhabdomyolysis. Salicylates, acetaminophen and ethanol negative. Due to patient's QT will obtain repeat EKG to look QT/ QTC at this time, will also give IV Mag. 0057 Troponin negative. Repeat EKG with improving QTC however QT slightly longer. Patient remains in a sinus rhythm on the monitor. Responding well to ketamine. I did make my attending Dr. Springer aware of this, he will continue to moniter. He is here overnight I signed out this case to Dr. Stapleton at time sign out was giv en patient hemodynamically stable, resting comfortably on the stretcher, with hydration and magnesium running through the IV line. Patient in normal sinus rhythm on the monitor heart rate it mid 90s. Dr. Stapleton aware of patient's case. At this time patient will be placed in physician observation to allow more time to be evaluated for substance use disorder, and for repeat labs such as creatinine kinase. Medications Administered Generic Name Dose Route Start Last Admin Trade Name Freq PRN Reason Stop Dose Admin Sodium Chloride 1,000 mls @ 999 mls/hr 05/23/22 00:15 05/23/22 00:29 Ns IV 05/23/22 01:15 999 mls/hr .Q1H1M FOUZIA Administration Magnesium Sulfate 2 gm in 50 mls @ 25 mls/hr 05/23/22 00:40 05/23/22 00:44 Magnesium Sulfate/H2o IV 05/23/22 02:39 25 mls/hr ONCE ONE Administration Discontinued Medications Generic Name Dose Route Start Last Admin Trade Name Freq PRN Reason Stop Dose Admin Diphenhydramine HCl 50 mg 05/22/22 21:43 05/22/22 21:53 Diphenhydramine Hcl 25 Mg Capsule PO 05/22/22 21:44 50 mg ONCE ONE Administration Haloperidol 5 mg 05/22/22 21:43 05/22/22 21:54 Haloperidol 5 Mg Tablet PO 05/22/22 21:44 5 mg ONCE ONE Administration Haloperidol Lactate 5 mg 05/22/22 23:01 05/22/22 23:06 Haloperidol Lactate 5 Mg/Ml Vial IM 05/22/22 23:02 5 mg ONCE ONE Administration Ketamine HCl 400 mg 05/23/22 00:12 05/23/22 00:19 Ketamine Hcl 500 Mg/5 Ml Vial IM 05/23/22 00:13 400 mg ONCE ONE Administration Lorazepam 2 mg 05/22/22 21:43 05/22/22 21:54 Lorazepam 1 Mg Tablet PO 05/22/22 21:44 2 mg ONCE ONE Administration Lorazepam 2 mg 05/22/22 23:10 05/22/22 23:15 Lorazepam 2 Mg/Ml Vial IVPUSH 05/22/22 23:11 2 mg ONCE ONE Administration Naloxone HCl 4 mg 05/22/22 20:25 05/22/22 21:26 Naloxone Hcl Nasal 4 Mg [place] NOSTRILALT 05/22/22 20:26 4 mg ONCE ONE Administration Ziprasidone 20 mg 05/22/22 22:34 05/22/22 22:40 Ziprasidone Mesylate 20 Mg Vial IM 05/22/22 22:35 20 mg ONCE ONE Administration Medical Decision Making Medical Decision Making [facility] Narrative: 2019 51-year-old male found unresponsive on the side of the road by bystander Physical exam patient not responding, not answering questions, noted to be 91% on room air placed on 4 L nasal cannula 96%. No evidence signs of trauma. However patient noted to have horizontal nystagmus. Unable to obtain an accurate neurological exam due to patient's mental status. Unable to obtain NIH stroke scale. Concerns for possible intracranial hemorrhage, or acute trauma. Also concern for opiate overdose will give Narcan at this time. Stroke alert called due to patient's altered mental status. Lab Data Result Diagrams: 05/23/22 00:06 05/23/22 00:06 Labs: Lab Results 05/22/22 05/22/22 05/23/22 Range/Units 20:22 20:23 00:06 WBC 5.4 (4.8-10.8) X10*3/uL RBC 3.84 L (4.60-5.80) X10*6/uL Hgb 11.9 L (14.0-18.0) g/dl Hct 34.6 L (42.0-52.0) % MCV 90.1 (80.0-98.0) fL MCH 31.0 (27.0-33.0) pg MCHC 34.4 (31.0-36.0) g/dl RDW 13.7 (11.0-16.0) % Plt Count 100 L D (160-400) X10*3/uL MPV Not Reportable Immature Gran % (Auto) 0.4 (0.0-0.4) % Neut % (Auto) 75.9 H (45-73) % Lymph % (Auto) 13.9 L (20-40) % Mills % (Auto) 8.0 (2-11) % Eos % (Auto) 1.1 (0-4) % Baso % (Auto) 0.7 (0-2) % Lymph # (Auto) 0.8 L (1.2-4.9) X10*3/uL Mills # (Auto) 0.4 (0.1-1.2) X10*3/uL Eos # (Auto) 0.1 (0.0-0.4) X10*3/uL Baso # (Auto) 0.0 (0.0-0.2) X10*3/uL Abs Immat Gran (auto) 0.02 (0.00-0.03) X10*3/uL Absolute Neuts (auto) 4.1 (2.0-8.3) x10*3/uL Absolute Nucleated RBC 0.140 H (0.0-0.012) X10*3/uL Nucleated RBC % (auto) 2.6 H (0.0-0.2) /100WBC Whole Blood PT 12.9 (11.1-13.5) sec Whole Blood INR 1.1 (0.9-1.1) Sodium (135-145) mmol/L Potassium (3.3-5.1) mmol/L Chloride (96-108) mmol/L Carbon Dioxide (22-29) mmol/L Anion Gap (12-20) BUN (9-16) mg/dL Creatinine (0.5-1.4) mg/dL Estim Creat Clear Calc Estimated GFR POC Glucose 102 (60-115) mg/dL Random Glucose (60-115) mg/dL Calcium (8.4-10.2) mg/dL Total Creatine Kinase (38-174) U/L Troponin I High Sens (<3.5-35.0) ng/L Salicylates (15-30) mg/dL Acetaminophen (<30) mcg/mL Ethyl Alcohol mg/dL 05/23/22 05/23/22 Range/Units 00:06 00:10 WBC (4.8-10.8) X10*3/uL RBC (4.60-5.80) X10*6/uL Hgb (14.0-18.0) g/dl Hct (42.0-52.0) % MCV (80.0-98.0) fL MCH (27.0-33.0) pg MCHC (31.0-36.0) g/dl RDW (11.0-16.0) % Plt Count (160-400) X10*3/uL MPV Immature Gran % (Auto) (0.0-0.4) % Neut % (Auto) (45-73) % Lymph % (Auto) (20-40) % Mills % (Auto) (2-11) % Eos % (Auto) (0-4) % Baso % (Auto) (0-2) % Lymph # (Auto) (1.2-4.9) X10*3/uL Mills # (Auto) (0.1-1.2) X10*3/uL Eos # (Auto) (0.0-0.4) X10*3/uL Baso # (Auto) (0.0-0.2) X10*3/uL Abs Immat Gran (auto) (0.00-0.03) X10*3/uL Absolute Neuts (auto) (2.0-8.3) x10*3/uL Absolute Nucleated RBC (0.0-0.012) X10*3/uL Nucleated RBC % (auto) (0.0-0.2) /100WBC Whole Blood PT (11.1-13.5) sec Whole Blood INR (0.9-1.1) Sodium 140 (135-145) mmol/L Potassium 4.7 (3.3-5.1) mmol/L Chloride 106 (96-108) mmol/L Carbon Dioxide 18 L (22-29) mmol/L Anion Gap 21 H (12-20) BUN 13 (9-16) mg/dL Creatinine 1.09 (0.5-1.4) mg/dL Estim Creat Clear Calc 99.5 Estimated GFR > 60 POC Glucose (60-115) mg/dL Random Glucose 103 (60-115) mg/dL Calcium 8.9 (8.4-10.2) mg/dL Total Creatine Kinase 987 H (38-174) U/L Troponin I High Sens < 3.5 (<3.5-35.0) ng/L Salicylates < 5.0 L (15-30) mg/dL Acetaminophen < 1 (<30) mcg/mL Ethyl Alcohol < 10 mg/dL Critical Care Time Critical Care Time Critical Care Time: No Discharge Plan Discharge Clinical Impression: Drug overdose, Aggressive behavior, Hepatic steatosis, Incidental pulmonary nodule, Rhabdomyolysis Patient Disposition: Still a Patient Prescriptions: No Action polyethylene glycol 3350 17 gram Powder In Packet 17 g PO DAILY PRN (Reason: Constipation) Qty: 30 0RF sennosides-docusate sodium [Senna Plus] 8.6-50 mg tablet 2 tab PO BEDTIME PRN (Reason: Constipation) nicotine (polacrilex) 2 mg Gum 2 mg buccal Q2H PRN (Reason: Nicotine Cravings) 30 Days Qty: 100 0RF prazosin 1 mg Capsule 3 mg PO BEDTIME 30 Days Qty: 90 0RF Protocol: Hold for SBP< HOLD for SBP < : 90 amitriptyline 25 mg Tablet 25 mg PO BEDTIME 30 Days Qty: 30 0RF trazodone 50 mg Tablet 50 mg PO BEDTIME PRN (Reason: Insomnia) 30 Days Qty: 30 0RF zolpidem 5 mg Tablet 5 mg PO BEDTIME 7 Days Qty: 7 3RF multivitamin [Daily-Tony] Tablet 1 tab PO DAILY 30 Days Qty: 30 0RF cyclobenzaprine 10 mg Tablet 10 mg PO TID PRN (Reason: muscle spasm) 30 Days Qty: 90 0RF naproxen 250 mg tablet 250 mg PO BID 30 Days Qty: 60 0RF lorazepam 0.5 mg tablet 0.5 mg PO BID PRN (Reason: anxiety) 7 Days Qty: 14 3RF gabapentin 800 mg tablet 800 mg PO QID 7 Days Qty: 28 3RF nicotine 21 mg/24 hr Patch 24 Hour 21 mg transdermal DAILY 28 Days Qty: 28 0RF pyridoxine (vitamin B6) 50 mg Tablet 50 mg PO DAILY 30 Days Qty: 30 0RF folic acid 1 mg Tablet 1 mg PO DAILY 30 Days Qty: 30 0RF hydroxyzine HCl 25 mg Tablet 25 mg PO Q6H PRN (Reason: Anxiety) 30 Days Qty: 90 0RF metronidazole 0.75 % Gel 1 appl topical BID 30 Days Qty: 45 0RF Vyvanse 20 mg capsule 20 mg PO QAM 30 Days Qty: 30 0RF thiamine mononitrate (vit B1) 100 mg Tablet 50 mg PO DAILY 30 Days Qty: 15 0RF bupropion HCl 450 mg tablet extended release 24 hr 450 mg PO DAILY 30 Days Qty: 30 0RF buprenorphine-naloxone [Suboxone] 8-2 mg Film 2 film sublingual DAILY 3 Days Qty: 6 0RF
[2022-05-22 20:27] LABS: Glucose, Whole Blood 102 mg/dL (60-115)
--- OUTSIDE RECORDS SUMMARY | 2022-05-22 20:28 | XMS_ITS | Continuity of Care Document ---
:1970 Author Organization [facility] nter Address [address] [place] [id number]- Care Team Providers Name Role Phone Dionicio OLSEN, Caitlyn Primary Care Physician Encounter [facility] Date(s): 01/07/22 - 04/25/[address] [address]- Attending Physician: Cherelle Grimes MD Admitting Physician: Cherelle Grimes MD Allergies, Adverse Reactions, Alerts Substance Reaction Severity Status PHENobarbital Vomiting Moderate Active Immunizations Given and Recorded Vaccine Date Status Refusal Reason influenza virus vaccine, inactivated 03/28/22 Given influenza virus vaccine, inactivated 03/21/21 Recorded influenza virus vaccine, inactivated 06/09/18 Recorded pneumococcal 23-valent vaccine 01/24/22 Recorded SARS-CoV-2 (COVID-19) mRNA-1273 vaccine1 05/06/21 Given SARS-CoV-2 (COVID-19) mRNA-1273 vaccine 07/26/20 Recorded SARS-CoV-2 (COVID-19) mRNA-1273 vaccine 06/28/20 Recorded tetanus/diphtheria/pertussis, acel(Tdap) 09/27/20 Recorde d tetanus/diphtheria/pertussis, acel(Tdap) 07/06/16 Given 1Early/Late Reason: Early/Late Reason: Other : awaiting pharmacy to bring up Medications amLODIPine 10 mg oral tablet 10 mg, 1, tablet, By Mouth, Daily, Refills 0, Maintenance, 03/27/22 13:52:00 EDT, Partial fill upon patient request if the prescription is for a schedule II opioid drug. Start Date: 03/27/22 Status: Orderedbuprenorphine-naloxone 8 mg-2 mg sublingual film 1 film, Sublingual, 2 times a day, # 12 film, 0 Refills, Maintenance, 04/16/22 8:57:00 EST, Film, [facility], Partial fill upon patient request if the prescription is for a schedule II opioid drug., 1 film Sublingual 2 times a day, 185,... Start Date: 04/16/22 Status: Orderedfolic acid 1 mg oral tablet 1 mg, 1, tablet, By Mouth, Daily, Refills 0, Maintenance, 03/27/22 13:52:00 EDT, Partial fill upon patient request if the prescription is for a schedule II opioid drug. Start Date: 03/27/22 Status: Orderedgabapentin 800 mg oral tablet 1 tablet = 800 mg, By Mouth, 3 times a day, # 90 tablet, 0 Refills, Maintenance, 08/02/21 16:43:00 EST, Tablet, [facility], Partial fill upon patient request if the prescription is for a schedule II opioid drug., 180, cm, 08/02/21 10:39:0... Start Date: 08/02/21 Status: OrderedhydrOXYzine pamoate 50 mg oral capsule = 50 mg, By Mouth, Every 6 hours, PRN Anxiety, 0 Refills, Maintenance, 04/16/22 8:20:00 EST, Capsule, Partial fill upon patient request if the prescription is for a schedule II opioid drug. Start Date: 04/16/22 Status: OrderedMelatonin Daily at bedtime, 0 Refills, [...] opioid drug. Start Date: 03/27/22 Status: Orderedprazosin 2 mg oral capsule 1 capsule = 2 mg, By Mouth, Daily at bedtime, # 30 capsule, 0 Refills, Maintenance, 08/02/21 16:44:00 EST, Capsule, [facility], Partial fill upon patient request [...] Confirmed Active mandible Polysubstance abuse Confirmed Active Social History Social History Type Response Smoking Status Current every day smoker; To bacco user in household: No entered on: 07/26/16 Sex Patient Care team information Care Team PersonnelName: John Saldivar RN Position: [facility] RN Member Role: Primary Care Nurse Name: Nataly Ace RN Position: [facility] RN Member Role: Primary Care Nurse Name: Jania Lopez RN Position: [facility] RN Member Role: Primary Care Nurse Name: Trinh Lucas RN Position: [facility] RN Member Role: Primary Care Nurse Name: Brunilda Fisher Position: [facility] RN Member Role: Primary Care Nurse Name: Farnaz Castellanos Position: [facility] RN Member Role: Primary Care Nurse Name: Krystal Oliver RN Position: [facility] RN Member Role: Primary Care Nurse Name: Elaine Naik RN Position: [facility] RN Member Role: Primary Care Nurse Name: Stephanie Cid Position: [facility] Outreach Member Role: Lifetime Consulting Physician Name: Yun Wood Position: [facility] Outreach Member Role: Lifetime Consulting Physician Name: Anaya Lai RN Position: [facility] RN Member Role: Primary Care Nurse Name: Eva Beavers RN Position: [facility] RN Member Role: Primary Care Nurse Name: Santiago Dickinson Position: [facility] Outreach Member Role: Lifetime Consulting Physician Name: Zelda Reveles RN Position: [facility] RN Member Role: Primary Care Nurse Name: Caitlyn Greenberg NP Position: Reference Physician Member Role: PCP Address: Address: [address] [place] [address] Name: Amaya Long RN Position: [facility] RN Member Role: Primary Care Nurse Name: Amira Escobar RN Position: [facility] RN Member Role: Primary Care Nurse Name: Betsey Turcios RN Position: [facility] ED RN W/OE and Tasks Member Role: Primary Care Nurse Name: Janae Lopez RN Position: [facility] RN Member Role: Primary Care Nurse Name: Linda Russo RN Position: [facility] RN Member Role: Primary Care Nurse Name: Annita Ley RN Position: [facility] RN Member Role: Primary Care Nurse Name: Flora Taylor RN Position: [facility] RN Member Role: Primary Care Nurse Name: Frank Lara RN Position: [facility] RN Member Role: Primary Care Nurse Name: Micheline Sloan RN Position: [facility] RN Member Role: Primary Care Nurse Name: Olesya Avalos RN Position: [facility] RN Member Role: Primary Care Nurse Name: Garth Jones RN Position: [facility] RN Member Role: Primary Care Nurse Name: Koko Stafford RN Position: [facility] RN Member Role: Primary Care Nurse Name: Jolene Ceja RN Position: [facility] RN Member Role: Primary Care Nurse Name: Jenny Osuna RN Position: [facility] Straight Line Press Setter Member Role: Primary Care Nurse Name: Bernadine Berg Position: [facility] RN Member Role: Primary Care Nurse Care Team Related PersonsName: PATIENT STATES, NO ONE
[2022-05-22 20:29] LABS: Prothrombin Time Whole Bld POC 12.9 sec (11.1-13.5); ~PT, ~INR - Anti Coag Clinic 1.1 (0.9-1.1)
[2022-05-22] MEDS: Naloxone HCl Nasal 4 MG SPRAY NOSTRILALT (21:26)
[2022-05-22] MEDS: diphenhydrAMINE HCL 25 MG CAPSULE 50 MG PO (21:53)
[2022-05-22] MEDS: HaloperidoL 5 MG TABLET PO (21:54)
[2022-05-22] MEDS: LORazepam 1 MG TABLET 2 MG PO (21:54)
[2022-05-22] MEDS: Ziprasidone Mesylate 20 MG VIAL IM (22:40)
[2022-05-22] MEDS: Haloperidol Lactate 5 MG/ML VIAL IM (23:06)
[2022-05-22] MEDS: LORazepam 2 MG/ML VIAL IVPUSH (23:15)
--- NOTE | 2022-05-22 23:36 | PC.NURSE ---
this nurse assumed care of patient @ 2023. pt BIBA stroke alert called . pt worked dup for stroke. pt [facility] by [facility] on [address]. Providers Dr Roy and Columba ROTH assessing pt. intranasal narcan given in R nare. ct scan completed this rn at prt bedside at this time. iv placed for iv contrast, iv infiltrated during CT scan. pt becoming increasingly uncooperative. pt brought to room. this RN and two additional rns attempted to place IV and obtain blood work. pt becoming increasingly more agitated. 1:1 sitter at bedside at this time. pt becoming increasingly agitated and combative. im geodon 20mg given at this time. pt continue to be inceasingly combative towards staff, attempting to hit and kick staff members. im haldol 5,g given at this time. this rn discussed with provider pt current state of increasing agitation. security called to pt room, pt attempting to hit and kick medical staff. security placed four point restraints. pt received ivm ativan 2mg. pt perfusing well in all four extremities. cms intact. able to move digits.
[2022-05-23] VITALS (17 sets, daily range): BP systolic 93–139; BP diastolic 45–80; PULSE 77–96; RESP 11–21; TEMP 36.1–37.1; O2SAT 93–100; BMI 32.7
[2022-05-23 00:16] LABS: Basophils Percent Auto 0.7 % (0-2); Eosinophils Absolute Auto 0.1 X10*3/uL (0.0-0.4); Eosinophils Percent Auto 1.1 % (0-4); Hematocrit 34.6 % (42.0-52.0); Hemoglobin 11.9 g/dl (14.0-18.0); Imm Gran Abs Auto 0.02 X10*3/uL (0.00-0.03); Imm Gran Pct Auto 0.4 % (0.0-0.4); Lymphocytes Absolute Auto 0.8 X10*3/uL (1.2-4.9); Lymphocytes Percent Auto 13.9 % (20-40); Mean Corpuscular HGB Conc 34.4 g/dl (31.0-36.0); Mean Corpuscular Volume 90.1 fL (80.0-98.0); Monocytes Absolute Auto 0.4 X10*3/uL (0.1-1.2); NRBC Pct Auto 2.6 /100WBC (0.0-0.2); Neutrophils Absolute Auto 4.1 x10*3/uL (2.0-8.3); Neutrophils Percent Auto 75.9 % (45-73); PLT ABN DIST 1; Platelet Count 100 X10*3/uL (160-400); Red Blood Count 3.84 X10*6/uL (4.60-5.80); Red Cell Distribution Width 13.7 % (11.0-16.0); SCAN SMEAR FLAG 1; White Blood Count 5.4 X10*3/uL (4.8-10.8)
[2022-05-23 00:17] LABS: MANUAL DIFF FLAG NO
[2022-05-23] MEDS: Ketamine HCl 500 MG/5 ML VIAL 400 MG IM ×2 (00:19→21:00)
[2022-05-23] MEDS: 0.9 % Sodium Chloride 1,000 ML 999 ML IV ×5 (00:29→21:07)
--- NOTE | 2022-05-23 00:39 | ECG_ITS ---
Test Reason : OVERDOSE Blood Pressure : / mmHG Vent. Rate : 091 BPM Atrial Rate : 091 BPM P-R Int : 138 ms QRS Dur : 094 ms QT Int : 422 ms P-R-T Axes : 049 015 041 degrees QTc Int : 519 ms Normal sinus rhythm Prolonged QT Abnormal ECG When compared with ECG of 22-MAY-2022 21:27, No significant change was found Referred By: Yandy Cruz Electronically Signed By:ALEXIS BRANDT MD
[2022-05-23 00:43] LABS: Acetaminophen LAB < 1 mcg/mL (<30); Anion Gap 21 (12-20); Blood Urea Nitrogen 13 mg/dL (9-16); Calcium 8.9 mg/dL (8.4-10.2); Carbon Dioxide 18 mmol/L (22-29); Chloride 106 mmol/L (96-108); Creatinine Clr Calc Pharmacy 99.5; Estimated Glomerular Filt Rate > 60; Ethanol < 10 mg/dL; Glucose Random 103 mg/dL (60-115); Potassium 4.7 mmol/L (3.3-5.1); Salicylate < 5.0 mg/dL (15-30); Sodium 140 mmol/L (135-145)
[2022-05-23] MEDS: Magnesium Sulfate/H2O 2 GM/50 ML PIGGYBACK IV (00:44)
[2022-05-23 00:55] LABS: Troponin-I High Sensitivity < 3.5 ng/L (<3.5-35.0)
--- NOTE | 2022-05-23 01:36 | PC.NURSE ---
late entry- blood work delayed due to multiple attempts by multiple RNs, ed techs, and provider. IV line placed in R lower leg, able to obtain portion of blood work at this time. Iv fluids order placed for 3 Liters of NS. delay due to one access point. editing intern attempting at this time to obtain additional iv line
[2022-05-23 01:41] LABS: INTERNATIONAL NORM RATIO 1.1 (0.9-1.1); Prothrombin Time 12.8 SEC (10.0-13.1)
[2022-05-23 01:44] LABS: Stroke Lab Use COMPLETE
[2022-05-23 01:48] LABS: Influenza A PCR NEGATIVE (Negative); Influenza B PCR NEGATIVE (Negative); Resp Syncy Virus RNA Qual PCR NEGATIVE (Negative); SARS COV2 PCR INHOUSE NEGATIVE (Negative)
--- NOTE | 2022-05-23 03:44 | PC.NURSE ---
critical CPK of 1249 reported to this rn. this rn notified Dr ye. per md no new orders at this time. VS updated at this time. iv fluids placed on pressure bags. per hold on placing straight catheter at this time. leave condom catheter in place at this time
--- NOTE | 2022-05-23 04:26 | PC.NURSE ---
pt sleeping quietly at this time. 1:[address] iv fluids running at this time. pt positioned on back
--- NOTE | 2022-05-23 06:29 | PC.NURSE ---
condom catheter in place. pt able to void. urine collected and sent down to the lab
[2022-05-23 06:42] LABS: Amphetamine Screen Urine POSITIVE (Not Detect); Barbiturates, Urine Not Detected (Not Detect); Benzodiazepines Screen Urine Not Detected (Not Detect); Cannabinoid Screen Urine Not Detected (Not Detect); Cocaine Screen Urine POSITIVE (Not Detect); Fentanyl, urine Not Detected (Not Detect); Opiate Screen Urine Not Detected (Not Detect); Phencyclidine Screen Urine Not Detected (Not Detect)
--- NOTE | 2022-05-23 07:16 | ECG_ITS ---
Test Reason : repeat Blood Pressure : / mmHG Vent. Rate : 097 BPM Atrial Rate : 097 BPM P-R Int : 136 ms QRS Dur : 092 ms QT Int : 382 ms P-R-T Axes : 049 008 066 degrees QTc Int : 485 ms Sinus rhythm with Fusion complexes Prolonged QT Abnormal ECG When compared with ECG of 23-MAY-2022 00:39, Fusion complexes are now Present Referred By: Yandy Cruz Electronically Signed By:ALEXIS BRANDT MD
--- NOTE | 2022-05-23 09:00 | PC.NURSE ---
patient breathing even and unlabored , easy to arouse . calm and cooperative with lab draws . bed at lowest position . on rn cardiac .
--- NOTE | 2022-05-23 09:15 | MHC.RECOVRN ---
Addendum entered by Flora Peterson 05/23/22 09:26: Per Tangela, pt has been prescribed Suboxone fairly consistently, most recent prescription 05/17 for a 5 day supply (16 mg daily). Unknown if pt is currently taking Suboxone. Original Note: Met with pt in ED21 after pt presented with presumed opiate overdose. Pts UDS negative for opiates and fentanyl. Historically, pt is negative for these substances as well. Pt is unable to recall events that led to presentation to [facility] Pt visibly confused as to where he is this morning, t/w educated and oriented pt. 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 Pt reports having been at [facility] and discharged about 2 months ago. Since then pt has been drinking a case of beer daily as well as an unknown amount of crack. Pt reports being in a fog and requesting to rest and continue discussion at a later time. RN aware.
--- NOTE | 2022-05-23 09:20 | PC.NURSE ---
Flora from Care team to consult . patient not able to answer questions at this time will come back when patient more alert . patient aware of plan of care .
--- NOTE | 2022-05-23 14:30 | PC.NURSE ---
Patient started on d5 with normal saline as ordered r/t POC of 78 . and was given two sandwiches along with fluids to drink . patient is more alert at this moment . Flora from care team has been contacted for consult . patient is aware of plan of care .
[2022-05-23 14:37] LABS: Glucose, Whole Blood 78 mg/dL (60-115)
[2022-05-23] MEDS: Dextrose 5 % and 0.9 % NaCl 1,000 ML 125 ML IVCONT (15:11)
--- NOTE | 2022-05-23 15:20 | PC.NURSE ---
Flora from care team at bedside . Patient made S. I . statements . reports he made plans to drink himself to or jump from a bridge patient put on 1-1 observation . patient aware of plan of care .
--- NOTE | 2022-05-23 15:54 | MHC.RECOVRN ---
Met with pt in ED21 to follow up regarding substance use. Pt reports drinking 1/5 alcohol as well as a 12 pack beer daily. Pt reports being stable on Suboxone, however, has not taken it in a couple days. Per pt, The only reason I would come to this part of town is to go to psych. Pt reports SI with plan to drink until intoxicated and jump off a bridge. Pt grateful he came to the hospital prior to that happening. RN and Janae from CARE Team aware.
[2022-05-23 17:49] LABS: Appearance Urine Clear; Color Urine Yellow; Glucose Urine UA 250 mg/dL (Negative); Leukocyte Esterase Urine Negative (Negative); Nitrite Urine Negative (Negative); Specific Gravity - Urine 1.025 (1.005-1.025); Urine Blood Negative (Negative); Urine Ketones 40 mg/dL (Negative); Urine Protein Negative (Neg-Trace)
[2022-05-23 18:12] LABS: Alanine Aminotransferase 32 U/L (0-40); Albumin Level 3.6 g/dL (3.5-5.0); Alkaline Phosphatase 71 U/L (39-117); Anion Gap 11 (12-20); Aspartate Amino Transferase 51 U/L (5-37); Bilirubin Total 0.4 mg/dL (0.0-1.0); Blood Urea Nitrogen 7 mg/dL (9-16); Carbon Dioxide 23 mmol/L (22-29); Chloride 111 mmol/L (96-108); Creatinine Clr Calc Pharmacy 129.1; Estimated Glomerular Filt Rate > 60; Glucose Random 159 mg/dL (60-115); Potassium 3.8 mmol/L (3.3-5.1); Sodium 141 mmol/L (135-145); Total Protein 5.7 g/dL (6.5-8.0)
--- NOTE | 2022-05-23 19:31 | PC.NURSE ---
assumed care of patient at 1900 - patient resting comfortably on stretcher. on satellite project site monitor . 1:[address] iv fluids running.
--- NOTE | 2022-05-23 21:07 | PC.NURSE ---
pt with increasing aggression and agitation - jumped out of bed, ripped off all medical equipment, getting in peoples faces threatening staff members and yelling. patient placed back in 4 point restraints by security and given 400mg ketamine IM per providers orders. monitoring coordinator on. pt now tearful and regretful stating he does not want to live and does not want to be like this.
[2022-05-23 23:41] LABS: Glucose, Whole Blood 112 mg/dL (60-115)
[2022-05-24] VITALS (8 sets, daily range): BP systolic 102–131; BP diastolic 56–78; PULSE 72–89; RESP 9–18; TEMP 36.2–37; O2SAT 94–99
[2022-05-24] MEDS: Ketorolac Tromethamine 15 MG/ML VIAL 30 MG IVPUSH (00:50)
--- NOTE | 2022-05-24 05:11 | PC.NURSE ---
patient asking this RN what the plan is and if he is going to the psych unit or not. This RN informed patient that once he is again medically cleared then N team will come to assess him and determine whether he will go inpatient psych or not. patient stated okay because if i do get sent home i will kill myself. provider aware. patient continues to be on a 1:1. continuous monitoring in place.
[2022-05-24] MEDS: Dextrose 5 % and 0.9 % NaCl 1,000 ML 125 ML IVCONT (06:35)
[2022-05-24] MEDS: hydrOXYzine HCL 25 MG TABLET PO (10:30)
--- NOTE | 2022-05-24 10:46 | PHA.MEDREC ---
Pharmacy Consult ? Medication Reconciliation Pharmacy has completed the medication reconciliation. Patient knows all meds.
[2022-05-24] MEDS: LORazepam 0.5 MG TABLET PO (10:47)
[2022-05-24] MEDS: Nicotine Polacrilex 2 MG GUM BUCCAL (10:52)
[2022-05-24] MEDS: Buprenorphine/Naloxone 8/2 mg FILM 2 FILM SUBLINGUAL (11:18)
[2022-05-24] MEDS: buPROPion HCl XL 150 MG TAB.ER.24H 450 MG PO (11:19)
[2022-05-24] MEDS: Thiamine HCL 100 MG TABLET 50 MG PO (11:19)
[2022-05-24] MEDS: Multivitamin TABLET 1 TAB PO (11:19)
[2022-05-24] MEDS: Folic Acid 1 MG TABLET PO (11:19)
[2022-05-24] MEDS: LORazepam 1 MG TABLET 2 MG PO ×2 (11:23→16:53)
[2022-05-24] MEDS: NaPROXEN 250 MG TABLET PO (11:55)
--- NOTE | 2022-05-24 12:31 | PC.NURSE ---
Patients belongings secured in decon. Security does not search belongings in decon due to risk for exposure. Only belonging at pt bedside is one pair undergarmets and one t-shirt.
[2022-05-24] MEDS: Gabapentin 400 MG CAPSULE 800 MG PO (13:30)
--- NOTE | 2022-05-24 14:10 | PC.NURSE ---
Addendum entered by Ruby Espinal 05/24/22 15:35: Per melissa, Dr. Rose is aware of elevated CK and states that the patient is okay to go to psych floor for further management. Addendum entered by Ruby Espinal 05/24/22 14:29: Xuan from phlebotomy to draw sample. Original Note: Phlebotomy contacted Per [facility], someone will be sent up from the department to assist
[2022-05-24] MEDS: Sennosides/Docusate Sodium TABLET 2 TAB PO (16:53)
[2022-05-24] MEDS: Acetaminophen 325 MG TABLET 650 MG PO (16:53)
[2022-05-24] MEDS: metroNIDAZOLE 0.75 % Gel 45 GM TUBE 1 APPL TOPICAL (21:48)
[2022-05-24] MEDS: Gabapentin 300 MG CAPSULE 600 MG PO (21:48)
[2022-05-24] MEDS: Prazosin HCL 1 MG CAPSULE 3 MG PO (21:48)
[2022-05-24] MEDS: Amitriptyline HCl 25 MG TABLET PO (21:49)
[2022-05-24] MEDS: LORazepam 1 MG TABLET PO ×2 (21:54)
[2022-05-24] MEDS: traZODone HCL 50 MG TABLET PO (21:54)
--- NOTE | 2022-05-24 22:24 | PC.ADMIT ---
The patient is a 51 year old male admitted to [facility] for major depression and severe alcohol use from [facility]. He is alert and oriented x 3 calm and cooperative. Patient reports being depressed and anxious. Holiday season is difficult for him. The patient reports suicidal thoughts with out plan. He has a history of suicide attempts. Patient feels safe on the unit . Cam is a heavy daily alcohol user, is on CIWA protocol. His tox screen was positive for cocaine and amphetamines. He has bruises on bilateral lower extremities and edema in his hands reporting caused by physical restraints . He declined to sign Release of information consents , his belongings are locked in decon per ED.
[2022-05-25 08:23] VITALS: BP 133/85; PULSE 83; RESP 18; TEMP 36.7; O2SAT 98
[2022-05-25] MEDS: buPROPion HCl XL 150 MG TAB.ER.24H 450 MG PO (08:24)
[2022-05-25] MEDS: LORazepam 1 MG TABLET PO ×4 (08:25→21:14)
[2022-05-25] MEDS: Folic Acid 1 MG TABLET PO (08:25)
[2022-05-25] MEDS: Thiamine HCL 100 MG TABLET 50 MG PO (08:25)
[2022-05-25] MEDS: Pyridoxine HCl (Vitamin B6) 50 MG TABLET PO (08:25)
[2022-05-25] MEDS: Multivitamin TABLET 1 TAB PO (08:25)
[2022-05-25] MEDS: Gabapentin 300 MG CAPSULE 600 MG PO ×3 (08:25→21:14)
[2022-05-25] MEDS: Nicotine 21 MG PATCH.TD24 TRANSDERMA (08:26)
[2022-05-25] MEDS: Buprenorphine/Naloxone 8/2 mg FILM 2 FILM SUBLINGUAL (08:26)
[2022-05-25 09:00] LABS: Alanine Aminotransferase 34 U/L (0-40); Albumin Level 3.5 g/dL (3.5-5.0); Alkaline Phosphatase 63 U/L (39-117); Anion Gap 11 (12-20); Aspartate Amino Transferase 42 U/L (5-37); Bilirubin Total 0.4 mg/dL (0.0-1.0); Blood Urea Nitrogen 7 mg/dL (9-16); Calcium 8.6 mg/dL (8.4-10.2); Carbon Dioxide 26 mmol/L (22-29); Chloride 110 mmol/L (96-108); Creatinine Clr Calc Pharmacy 137.2; Estimated Glomerular Filt Rate > 60; Glucose Fasting 94 mg/dL (60-99); Glucose Random 93 mg/dL (60-115); Potassium 4.1 mmol/L (3.3-5.1); Sodium 143 mmol/L (135-145); Total Protein 5.6 g/dL (6.5-8.0)
[2022-05-25] MEDS: metroNIDAZOLE 0.75 % Gel 45 GM TUBE 1 APPL TOPICAL ×2 (10:20→22:32)
[2022-05-25] MEDS: LORazepam 1 MG TABLET 2 MG PO ×3 (12:22→18:56)
[2022-05-25] MEDS: Amphetamine Mixed Salts 20 MG TABLET PO (12:22)
[2022-05-25 12:23] VITALS: BP 157/82; PULSE 84; RESP 18; TEMP 36.4; O2SAT 97
[2022-05-25 15:00] VITALS: BP 155/102; PULSE 84; RESP 20; TEMP 36.2; O2SAT 98
[2022-05-25 18:00] VITALS: BP 148/78; PULSE 80; RESP 20; TEMP 36.6; O2SAT 98
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
[2022-05-25 20:15] VITALS: BP 165/91; PULSE 91; RESP 20; O2SAT 97
[2022-05-25] MEDS: Prazosin HCL 1 MG CAPSULE 3 MG PO (21:14)
[2022-05-25] MEDS: Amitriptyline HCl 25 MG TABLET PO (21:14)
[2022-05-25] MEDS: traZODone HCL 50 MG TABLET PO (21:15)
[2022-05-25] MEDS: Zolpidem Tartrate 5 MG TABLET PO (21:15)
[2022-05-26 08:30] VITALS: BP 147/78; PULSE 89; TEMP 36.4
[2022-05-26] MEDS: Buprenorphine/Naloxone 8/2 mg FILM 2 FILM SUBLINGUAL (09:19)
[2022-05-26] MEDS: Nicotine 21 MG PATCH.TD24 TRANSDERMA (09:19)
[2022-05-26] MEDS: Folic Acid 1 MG TABLET PO (09:20)
[2022-05-26] MEDS: Multivitamin TABLET 1 TAB PO (09:20)
[2022-05-26] MEDS: Lidocaine 4 % Patch ADH..PATCH 1 PATCH TRANSDERMA (09:20)
[2022-05-26] MEDS: buPROPion HCl XL 150 MG TAB.ER.24H 450 MG PO (09:20)
[2022-05-26] MEDS: Gabapentin 300 MG CAPSULE 600 MG PO ×3 (09:20→20:42)
[2022-05-26] MEDS: Pyridoxine HCl (Vitamin B6) 50 MG TABLET PO (09:20)
[2022-05-26] MEDS: Ferrous Sulfate 324 MG TABLET.DR 325 MG PO (09:21)
[2022-05-26] MEDS: Thiamine HCL 100 MG TABLET 50 MG PO (09:21)
[2022-05-26] MEDS: LORazepam 1 MG TABLET PO ×3 (09:21→17:38)
[2022-05-26] MEDS: Amphetamine Mixed Salts 20 MG TABLET PO (10:40)
[2022-05-26] MEDS: metroNIDAZOLE 0.75 % Gel 45 GM TUBE 1 APPL TOPICAL ×2 (10:40→20:45)
[2022-05-26 12:07] LABS: COVID-19 Test Negative (Negative); IDNOW Serial# 16C4AD1C
[2022-05-26] MEDS: LORazepam 1 MG TABLET 2 MG PO ×2 (12:14→20:42)
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
[2022-05-26 17:36] VITALS: BP 104/58; PULSE 80; RESP 18; TEMP 36.6; O2SAT 98
[2022-05-26] MEDS: Zolpidem Tartrate 5 MG TABLET PO (20:42)
[2022-05-26] MEDS: Prazosin HCL 1 MG CAPSULE 3 MG PO (20:42)
[2022-05-26] MEDS: Amitriptyline HCl 25 MG TABLET PO (20:42)
[2022-05-26] MEDS: traZODone HCL 50 MG TABLET PO (20:42)
[2022-05-27 08:30] VITALS: BP 121/61; PULSE 67; TEMP 36.6
[2022-05-27] MEDS: buPROPion HCl XL 150 MG TAB.ER.24H 450 MG PO (08:47)
[2022-05-27] MEDS: Buprenorphine/Naloxone 8/2 mg FILM 2 FILM SUBLINGUAL (08:47)
[2022-05-27] MEDS: Nicotine 21 MG PATCH.TD24 TRANSDERMA (08:47)
[2022-05-27] MEDS: Thiamine HCL 100 MG TABLET 50 MG PO (08:48)
[2022-05-27] MEDS: Pyridoxine HCl (Vitamin B6) 50 MG TABLET PO (08:48)
[2022-05-27] MEDS: Folic Acid 1 MG TABLET PO (08:48)
[2022-05-27] MEDS: Amphetamine Mixed Salts 20 MG TABLET PO (08:48)
[2022-05-27] MEDS: Ferrous Sulfate 324 MG TABLET.DR 325 MG PO (08:49)
[2022-05-27] MEDS: Multivitamin TABLET 1 TAB PO (08:49)
[2022-05-27] MEDS: LORazepam 1 MG TABLET PO ×5 (08:50→20:18)
[2022-05-27] MEDS: Gabapentin 300 MG CAPSULE 600 MG PO ×3 (08:50→20:19)
[2022-05-27] MEDS: Acetaminophen 325 MG TABLET 650 MG PO (10:35)
[2022-05-27] MEDS: Lidocaine 4 % Patch ADH..PATCH 1 PATCH TRANSDERMA (10:36)
[2022-05-27 11:00] VITALS: BP 152/76; PULSE 86; TEMP 36.5; O2SAT 99
[2022-05-27] MEDS: metroNIDAZOLE 0.75 % Gel 45 GM TUBE 1 APPL TOPICAL (11:20)
--- NOTE | 2022-05-27 15:39 | MHC.RECOVRN ---
Addendum entered by Flora Peterson 05/27/22 15:51: Upon speaking with provider, pt interested in TID dosing. 8 mg in the AM, 4 mg in afternoon, 4 mg in the evening. Maude Woo NP, aware. Original Note: Met with pt in 507 after consult placed to Addiction Medicine to discuss Suboxone dosing. Pt requesting to change to BID instead of taking 2 films in the morning. Pt requesting this in hopes it will help with hip pain management. Discussed with Maude Woo NP. Plan to split dose.
[2022-05-27 18:00] VITALS: BP 166/83; PULSE 92; TEMP 36.3; O2SAT 99
--- NOTE | 2022-05-27 18:51 | P.PNPSI_ITS ---
Subjective Subjective Date of Service: 05/27/22 Reason For Visit: depression/SI Subjective Notes: Conditional Voluntary Healthcare Proxy: No Guardianship: No Medical Problems Affecting Mental Status: No Interim History: Reports severe hip pain. Suboxone at 8/2 bid, divided into 8/2 a.m. and 4/1 and 4/1 for the remainder of the day to asssit with pain mgt. Addictions team is in agreement. Tylenol increased as well. Visable, participating and engaged with peers and team. Medication Compliance: Yes Side effects from medications: No Attending Groups: Yes Review of Systems Acute medical concerns: No Medical Review of Systems: unchanged Mental Status Exam Mental Status Exam Patient Appearance: Appropriate Patient Orientation: Person, Place, Time and Situation Level of Consciousness: Alert Patient Behavior: Talkative and Good Eye Contact Mood Description: Depressed Affect Description: Flat Patient Cognition Impaired: No Ability to Follow Directions: Good Speech Pattern: Spontaneous Speech Memory Description: Episodic Impaired Hallucinations: None Delusions: Not Present Perceptual Disturbances: Depersonalization and Derealization Thought Process: Rumination and Goal Oriented Thought Content: positive for Circumstantial and positive for Suicidal Ideation Depressive Symptoms: Increased Irritability, Difficulty Sleeping, Feelings of Worthlessness, Hopelessness, Unhappiness, Increased Fatigue, Thoughts of /Suicide, Loss of Energy and Difficulty Concentrating Judgement: Fair Diagnostics Vital Signs (24Hr): Vital Signs - 24 hr 05/27/22 11:00 05/27/22 08:30 Temperature 97.7 F 97.8 F Pulse Rate 86 67 Blood Pressure 152/76 H 121/61 Pulse Oximetry 99 Oxygen Delivery Method Room Air BMI result Body Mass Index 32.7 Labs Results: 05/23/22 00:06 05/25/22 08:10 Labs: Laboratory Results - last 48 hr 05/26/22 11:40 COVID-19 (LINK) Negative COVID-19 Clin Com See Note Imaging Radiology Impressions: ITS Impressions Head CT 05/22/22 20:26 IMPRESSION: 1. No acute intracranial pathology. This critical result was discussed with Yandy Cruz at 8:39 PM on 05/22/2022 and it was ascertained that the content and urgency of the report was understood at the time of direct communication. Head/Neck CTA 05/22/22 21:04 IMPRESSION: Significantly motion degraded exam. 1. Within the limitations of this exam, there is no overtly demonstrated proximal arterial occlusion. 2. Potential loss of roper-white matter differentiation within the posterior aspect of the left occipital lobe. However, this is not as well delineated on postcontrast imaging. While this may represent an evolving infarct of the left occipital lobe, it is also possible that the appearance is artifactual in nature. 3. No evidence of acute intracranial hemorrhage. This critical result was discussed with Yandy Cruz NP at 21:41 on 05/22/2023 2 and it was ascertained that the content and urgency of the report was understood at the time of direct communication. Abdomen/Pelvis CT 05/22/22 21:25 IMPRESSION: 1. No acute traumatic finding is seen. There is no parenchymal organ laceration or hemorrhage. No free intraperitoneal air or fluid is seen. There is no acute osseous finding. 2. There is hepatic steatosis. Fleischner guidelines were followed. Cervical Spine CT 05/22/22 21:41 IMPRESSION: No traumatic subluxation or acute cervical spine fracture. Chest CT 05/22/22 21:43 IMPRESSION: 1. No acute traumatic injury identified in the chest. 2. No pneumothorax, airspace consolidation or pleural effusion. 3. No acute fracture identified. 4. Small 3 mm left lower lobe pulmonary nodule, likely intrapulmonary lymph node. Per Fleischner Society guidelines, if the patient is high risk for pulmonary malignancy consider optional low-dose chest CT follow-up in 12 months. If low risk, no follow-up required. Medications Medications Current Medications Acetaminophen (Acetaminophen 325 Mg Tablet) 975 mg PO Q8H PRN PRN Reason: Pain, Mild (Pain Scale 1-3) Al Hydroxide/Mg Hydroxide (Magnesium Hydrox/Alum Hydrox 30 Ml Oral.Susp) 30 ml PO Q6H PRN PRN Reason: Heartburn/Nausea Amitriptyline HCl (Amitriptyline Hcl 25 Mg Tablet) 25 mg PO BEDTIME [facility] Last Admin: 05/26/22 20:42 Dose: 25 mg Amphetamine/Dextroamphetamine (Amphetamine Mixed Salts 20 Mg Tablet) 20 mg PO DAILY [facility] Last Admin: 05/27/22 08:48 Dose: 20 mg Buprenorphine/Naloxone (Buprenorphine/Naloxone 8/2 Mg Film) 1 film SUBLINGUAL DAILY [facility] Buprenorphine/Naloxone (Buprenorphine/Naloxone 4/1 Mg Film) 1 film SUBLINGUAL BID@1300,2100 [facility] Last Admin: 05/27/22 14:39 Dose: Not Given Bupropion HCl (Bupropion Hcl Xl 150 Mg Tab.Er.24h) 450 mg PO DAILY [facility] Last Admin: 05/27/22 08:47 Dose: 450 mg Cyclobenzaprine HCl (Cyclobenzaprine Hcl 10 Mg Tablet) 10 mg PO TID PRN PRN Reason: muscle spasm Ferrous Sulfate (Ferrous Sulfate 324 Mg Tablet.Dr) 325 mg PO DAILY [facility] Last Admin: 05/27/22 08:49 Dose: 325 mg Folic Acid (Folic Acid 1 Mg Tablet) 1 mg PO DAILY [facility] Last Admin: 05/27/22 08:48 Dose: 1 mg Gabapentin (Gabapentin 300 Mg Capsule) 600 mg PO TID [facility] Last Admin: 05/27/22 14:52 Dose: 600 mg Hydroxyzine HCl (Hydroxyzine Hcl 25 Mg Tablet) 25 mg PO Q6H PRN PRN Reason: Anxiety Last Admin: 05/24/22 10:30 Dose: 25 mg Lidocaine (Lidocaine 4 % Patch Adh..Patch) 1 patch TRANSDERMA DAILY PRN PRN Reason: Pain Last Admin: 05/27/22 10:36 Dose: 1 patch Lorazepam (Lorazepam 1 Mg Tablet) 1 mg PO TID [facility] Last Admin: 05/27/22 14:52 Dose: 1 mg Lorazepam (Lorazepam 1 Mg Tablet) 2 mg PO Q2H PRN PRN Reason: CIWA 11 and above Last Admin: 05/26/22 20:42 Dose: 2 mg Lorazepam (Lorazepam 1 Mg Tablet) 1 mg PO Q2H PRN PRN Reason: CIWA 6-10 Last Admin: 05/27/22 18:20 Dose: 1 mg Magnesium Hydroxide (Milk Of Magnesia 30 Ml Oral.Susp) 30 ml PO DAILY PRN PRN Reason: Constipation Metronidazole (Metronidazole 0.75 % Gel 45 Gm Tube) 1 appl TOPICAL BID [facility] Last Admin: 05/27/22 11:20 Dose: 1 appl Multivitamins/Vitamin C (Multivitamin Tablet) 1 tab PO DAILY [facility] Last Admin: 05/27/22 08:49 Dose: 1 tab Nicotine (Nicotine 21 Mg Patch.Td24) 21 mg TRANSDERMA DAILY [facility] Last Admin: 05/27/22 08:47 Dose: 21 mg Nicotine Polacrilex (Nicotine Polacrilex 2 Mg Gum) 2 mg BUCCAL Q2H PRN PRN Reason: Nicotine Cravings Last Admin: 05/24/22 10:52 Dose: 2 mg Polyethylene Glycol (Polyethylene Glycol 3350 17 Gm Powd.Pack) 17 gm PO DAILY P RN PRN Reason: Constipation Prazosin HCl (Prazosin Hcl 1 Mg Capsule) 3 mg PO BEDTIME [facility]; Protocol Last Admin: 05/26/22 20:42 Dose: 3 mg Pyridoxine HCl (Pyridoxine Hcl (Vitamin B6) 50 Mg Tablet) 50 mg PO DAILY [facility] Last Admin: 05/27/22 08:48 Dose: 50 mg Senna/Docusate Sodium (Sennosides/Docusate Sodium Tablet) 2 tab PO BEDTIME PRN PRN Reason: Constipation Last Admin: 05/24/22 16:53 Dose: 2 tab Thiamine HCl (Thiamine Hcl 100 Mg Tablet) 50 mg PO DAILY [facility] Last Admin: 05/27/22 08:48 Dose: 50 mg Trazodone HCl (Trazodone Hcl 50 Mg Tablet) 50 mg PO BEDTIME PRN PRN Reason: Insomnia Last Admin: 05/26/22 20:42 Dose: 50 mg Zolpidem Tartrate (Zolpidem Tartrate 5 Mg Tablet) 5 mg PO BEDTIME [facility] Last Admin: 05/26/22 20:42 Dose: 5 mg Allergies Allergies Allergy/AdvReac Type Severity Reaction Status Date / Time ketamine AdvReac Severe Agitated Verified 05/25/22 18:45 phenobarbital AdvReac Vomiting Verified 11/12/21 15:48 Assessment & Plan Assessment & Plan (1) Chronic post-traumatic stress disorder (PTSD): Status: Acute Code(s): F43.12 - Post-traumatic stress disorder, chronic (2) Alcohol use disorder: Status: Chronic (3) Opioid use disorder: Status: Chronic Code(s): F11.99 - Opioid use, unspecified with unspecified opioid-induced disorder Plan Review of medications and diagnostics with Cam. Review of recommendations from Dr. Rose of 05/24/22. Ambien 5 mg HS Adderall 20 mg daily CIWA q 2 hours Ferrous Sulfate daily Will add Ketamine to adverse response list. Pt asks for help with CSS placement 05/26/22 Addiction consult 05/27/22 Change Suboxone to TID- 8/2; 08/24 and 08/24 Increase Tylenol prn for hip pain mgt Informed Consent: further education needed Reason for contiued inpatient stay Substantial Risk for: med/psych decompensation Time Spent With Patient Time: Total time managing care of this patient today ___25_ minutes.
[2022-05-27] MEDS: Zolpidem Tartrate 5 MG TABLET PO (20:18)
[2022-05-27] MEDS: Prazosin HCL 1 MG CAPSULE 3 MG PO (20:18)
[2022-05-27] MEDS: traZODone HCL 50 MG TABLET PO (20:18)
[2022-05-27] MEDS: Amitriptyline HCl 25 MG TABLET PO (20:19)
[2022-05-28 06:00] VITALS: BP 134/68; PULSE 81; RESP 18; TEMP 36.7; O2SAT 97
[2022-05-28] MEDS: Nicotine 21 MG PATCH.TD24 TRANSDERMA (08:44)
[2022-05-28] MEDS: LORazepam 1 MG TABLET PO ×5 (08:45→20:35)
[2022-05-28] MEDS: Gabapentin 300 MG CAPSULE 600 MG PO ×3 (08:45→20:35)
[2022-05-28] MEDS: metroNIDAZOLE 0.75 % Gel 45 GM TUBE 1 APPL TOPICAL (08:45)
[2022-05-28] MEDS: Pyridoxine HCl (Vitamin B6) 50 MG TABLET PO (08:45)
[2022-05-28] MEDS: Buprenorphine/Naloxone 8/2 mg FILM 1 FILM SUBLINGUAL (08:45)
[2022-05-28] MEDS: Ferrous Sulfate 324 MG TABLET.DR 325 MG PO (08:45)
[2022-05-28] MEDS: Multivitamin TABLET 1 TAB PO (08:46)
[2022-05-28] MEDS: Thiamine HCL 100 MG TABLET 50 MG PO (08:46)
[2022-05-28] MEDS: buPROPion HCl XL 150 MG TAB.ER.24H 450 MG PO (08:46)
[2022-05-28] MEDS: Amphetamine Mixed Salts 20 MG TABLET PO (08:47)
[2022-05-28] MEDS: Folic Acid 1 MG TABLET PO (08:47)
[2022-05-28] MEDS: Lidocaine 4 % Patch ADH..PATCH 1 PATCH TRANSDERMA (08:49)
--- NOTE | 2022-05-28 09:55 | HO.PSYCHPN ---
Subjective Subjective Date of Service: 05/28/22 Reason For Visit: depression/SI Interim History: Patient said he still feeling withdrawal and grateful for Ativan scheduled with taper. Says still depressed but is feeling better. Suicidal ideation comes and goes. Feels medications are adequate Mental Status Exam Mental Status Exam Narrative: Pt is alert and oriented; behavior is cooperative, engaged and calm; patient is not in distress; dressed in casual attire, bald head, adequate hygiene; mood is described as depressed and affect congruent, downcast; eye contact appropriate; Speech is a little soft, a little slowed, but normal prosody; psychomotor retardation present; thought process is organized and goal directed; Thought content is on tx, recovery; otherwise pertinent to relevant topics and without any delusional content, paranoid ideations or grandiosity; intermittent SI; no HI. There is no evidence of perceptual disturbance. Patients insight and judgment are impaired but improving. Diagnostics Vital Signs (24Hr): Vital Signs - 24 hr 05/27/22 11:00 05/27/22 18:00 05/28/22 06:00 Temperature 97.7 F 97.4 F 98.1 F Pulse Rate 86 92 81 Respiratory Rate 18 Blood Pressure 152/76 H 166/83 H 134/68 Pulse Oximetry 99 99 97 Oxygen Delivery Method Room Air Room Air Room Air BMI result Body Mass Index 32.7 Labs Results: 05/23/22 00:06 05/25/22 08:10 Labs: Laboratory Results - last 48 hr 05/26/22 11:40 COVID-19 (LINK) Negative COVID-19 Clin Com See Note Imaging Radiology Impressions: ITS Impressions Head CT 05/22/22 20:26 IMPRESSION: 1. No acute intracranial pathology. This critical result was discussed with Yandy Cruz at 8:39 PM on 05/22/2022 and it was ascertained that the content and urgency of the report was understood at the time of direct communication. Head/Neck CTA 05/22/22 21:04 IMPRESSION: Significantly motion degraded exam. 1. Within the limitations of this exam, there is no overtly demonstrated proximal arterial occlusion. 2. Potential loss of roper-white matter differentiation within the posterior aspect of the left occipital lobe. However, this is not as well delineated on postcontrast imaging. While this may represent an evolving infarct of the left occipital lobe, it is also possible that the appearance is artifactual in nature. 3. No evidence of acute intracranial hemorrhage. This critical result was discussed with Yandy Cruz NP at 21:41 on 05/22/2023 2 and it was ascertained that the content and urgency of the report was understood at the time of direct communication. Abdomen/Pelvis CT 05/22/22 21:25 IMPRESSION: 1. No acute traumatic finding is seen. There is no parenchymal organ laceration or hemorrhage. No free intraperitoneal air or fluid is seen. There is no acute osseous finding. 2. There is hepatic steatosis. Fleischner guidelines were followed. Cervical Spine CT 05/22/22 21:41 IMPRESSION: No traumatic subluxation or acute cervical spine fracture. Chest CT 05/22/22 21:43 IMPRESSION: 1. No acute traumatic injury identified in the chest. 2. No pneumothorax, airspace consolidation or pleural effusion. 3. No acute fracture identified. 4. Small 3 mm left lower lobe pulmonary nodule, likely intrapulmonary lymph node. Per Fleischner Society guidelines, if the patient is high risk for pulmonary malignancy consider optional low-dose chest CT follow-up in 12 months. If low risk, no follow-up required. Medications Medications Current Medications Acetaminophen (Acetaminophen 325 Mg Tablet) 975 mg PO Q8H PRN PRN Reason: Pain, Mild (Pain Scale 1-3) Al Hydroxide/Mg Hydroxide (Magnesium Hydrox/Alum Hydrox 30 Ml Oral.Susp) 30 ml PO Q6H PRN PRN Reason: Heartburn/Nausea Amitriptyline HCl (Amitriptyline Hcl 25 Mg Tablet) 25 mg PO BEDTIME [facility] Last Admin: 05/27/22 20:19 Dose: 25 mg Amphetamine/Dextroamphetamine (Amphetamine Mixed Salts 20 Mg Tablet) 20 mg PO DAILY [facility] Last Admin: 05/28/22 08:47 Dose: 20 mg Buprenorphine/Naloxone (Buprenorphine/Naloxone 8/2 Mg Film) 1 film SUBLINGUAL DAILY [facility] Last Admin: 05/28/22 08:45 Dose: 1 film Buprenorphine/Naloxone (Buprenorphine/Naloxone 4/1 Mg Film) 1 film SUBLINGUAL BID@1300,2100 [facility] Last Admin: 05/28/22 00:00 Dose: Not Given Bupropion HCl (Bupropion Hcl Xl 150 Mg Tab.Er.24h) 450 mg PO DAILY [facility] Last Admin: 05/28/22 08:46 Dose: 450 mg Cyclobenzaprine HCl (Cyclobenzaprine Hcl 10 Mg Tablet) 10 mg PO TID PRN PRN Reason: muscle spasm Ferrous Sulfate (Ferrous Sulfate 324 Mg Tablet.Dr) 325 mg PO DAILY [facility] Last Admin: 05/28/22 08:45 Dose: 325 mg Folic Acid (Folic Acid 1 Mg Tablet) 1 mg PO DAILY [facility] Last Admin: 05/28/22 08:47 Dose: 1 mg Gabapentin (Gabapentin 300 Mg Capsule) 600 mg PO TID [facility] Last Admin: 05/28/22 08:45 Dose: 600 mg Hydroxyzine HCl (Hydroxyzine Hcl 25 Mg Tablet) 25 mg PO Q6H PRN PRN Reason: Anxiety Last Admin: 05/24/22 10:30 Dose: 25 mg Lidocaine (Lidocaine 4 % Patch Adh..Patch) 1 patch TRANSDERMA DAILY PRN PRN Reason: Pain Last Admin: 05/28/22 08:49 Dose: 1 patch Lorazepam (Lorazepam 1 Mg Tablet) 1 mg PO TID [facility] Last Admin: 05/28/22 08:46 Dose: 1 mg Lorazepam (Lorazepam 1 Mg Tablet) 2 mg PO Q2H PRN PRN Reason: CIWA 11 and above Last Admin: 05/26/22 20:42 Dose: 2 mg Lorazepam (Lorazepam 1 Mg Tablet) 1 mg PO Q2H PRN PRN Reason: CIWA 6-10 Last Admin: 05/28/22 08:45 Dose: 1 mg Magnesium Hydroxide (Milk Of Magnesia 30 Ml Oral.Susp) 30 ml PO DAILY PRN PRN Reason: Constipation Metronidazole (Metronidazole 0.75 % Gel 45 Gm Tube) 1 appl TOPICAL BID [facility] Last Admin: 05/28/22 08:45 Dose: 1 appl Multivitamins/Vitamin C (Multivitamin Tablet) 1 tab PO DAILY [facility] Last Admin: 05/28/22 08:46 Dose: 1 tab Nicotine (Nicotine 21 Mg Patch.Td24) 21 mg TRANSDERMA DAILY [facility] Last Admin: 05/28/22 08:44 Dose: 21 mg Nicotine Polacrilex (Nicotine Polacrilex 2 Mg Gum) 2 mg BUCCAL Q2H PRN PRN Reason: Nicotine Cravings Last Admin: 05/24/22 10:52 Dose: 2 mg Polyethylene Glycol (Polyethylene Glycol 3350 17 Gm Powd.Pack) 17 gm PO DAILY PRN PRN Reason: Constipation Prazosin HCl (Prazosin Hcl 1 Mg Capsule) 3 mg PO BEDTIME [facility]; Protocol Last Admin: 05/27/22 20:18 Dose: 3 mg Pyridoxine HCl (Pyridoxine Hcl (Vitamin B6) 50 Mg Tablet) 50 mg PO DAILY [facility] Last Admin: 05/28/22 08:45 Dose: 50 mg Senna/Docusate Sodium (Sennosides/Docusate Sodium Tablet) 2 tab PO BEDTIME PRN PRN Reason: Constipation Last Admin: 05/24/22 16:53 Dose: 2 tab Thiamine HCl (Thiamine Hcl 100 Mg Tablet) 50 mg PO DAILY [facility] Last Admin: 05/28/22 08:46 Dose: 50 mg Trazodone HCl (Trazodone Hcl 50 Mg Tablet) 50 mg PO BEDTIME PRN PRN Reason: Insomnia Last Admin: 05/27/22 20:18 Dose: 50 mg Zolpidem Tartrate (Zolpidem Tartrate 5 Mg Tablet) 5 mg PO BEDTIME [facility] Last Admin: 05/27/22 20:18 Dose: 5 mg Allergies Allergies Allergy/AdvReac Type Severity Reaction Status Date / Time ketamine AdvReac Severe Agitated Verified 05/25/22 18:45 phenobarbital AdvReac Vomiting Verified 11/12/21 15:48 Assessment & Plan Assessment & Plan (1) Chronic post-traumatic stress disorder (PTSD): Status: Acute Code(s): F43.12 - Post-traumatic stress disorder, chronic (2) Alcohol use disorder: Status: Chronic (3) Opioid use disorder: Status: Chronic Code(s): F11.99 - Opioid use, unspecified with unspecified opioid-induced disorder Plan Review of medications and diagnostics with Cam. Review of recommendations from Dr. Rose of 05/24/22. Ambien 5 mg HS Adderall 20 mg daily CIWA q 2 hours Ferrous Sulfate daily Will add Ketamine to adverse response list. Pt asks for help with CSS placement 05/26/22 Addiction consult 05/27/22 Change Suboxone to TID- 8/; 08/24 and 08/24 Increase Tylenol prn for hip pain mgt 05/28/2022 continue current regimen Patient educated on: diagnosis Informed Consent: understands Reason for contiued inpatient stay Substantial Risk for: rapid decompensation Time Spent With Patient Time: Total time managing care of this patient today ____ minutes.
[2022-05-28] MEDS: LORazepam 1 MG TABLET 2 MG PO ×2 (12:13→18:53)
[2022-05-28] MEDS: Acetaminophen 325 MG TABLET 975 MG PO (12:14)
[2022-05-28] MEDS: Buprenorphine/Naloxone 4/1 mg FILM 1 FILM SUBLINGUAL ×2 (13:36→20:42)
[2022-05-28 18:00] VITALS: BP 122/86; PULSE 95; TEMP 36.3; O2SAT 94
[2022-05-28] MEDS: Prazosin HCL 1 MG CAPSULE 3 MG PO (20:34)
[2022-05-28] MEDS: Amitriptyline HCl 25 MG TABLET PO (20:35)
[2022-05-28] MEDS: Zolpidem Tartrate 5 MG TABLET PO (20:36)
[2022-05-28] MEDS: traZODone HCL 50 MG TABLET PO (20:42)
[2022-05-29 06:00] VITALS: BP 131/70; PULSE 86; RESP 16; TEMP 36.7; O2SAT 98
[2022-05-29] MEDS: Nicotine 21 MG PATCH.TD24 TRANSDERMA (08:33)
[2022-05-29] MEDS: Ferrous Sulfate 324 MG TABLET.DR 325 MG PO (08:34)
[2022-05-29] MEDS: buPROPion HCl XL 150 MG TAB.ER.24H 450 MG PO (08:34)
[2022-05-29] MEDS: Multivitamin TABLET 1 TAB PO (08:35)
[2022-05-29] MEDS: Folic Acid 1 MG TABLET PO (08:35)
[2022-05-29] MEDS: Amphetamine Mixed Salts 20 MG TABLET PO (08:35)
[2022-05-29] MEDS: Buprenorphine/Naloxone 8/2 mg FILM 1 FILM SUBLINGUAL (08:35)
[2022-05-29] MEDS: Thiamine HCL 100 MG TABLET 50 MG PO (08:35)
[2022-05-29] MEDS: LORazepam 1 MG TABLET PO ×4 (08:35→20:26)
[2022-05-29] MEDS: Gabapentin 300 MG CAPSULE 600 MG PO ×3 (08:35→20:26)
[2022-05-29] MEDS: Pyridoxine HCl (Vitamin B6) 50 MG TABLET PO (08:35)
[2022-05-29] MEDS: Lidocaine 4 % Patch ADH..PATCH 1 PATCH TRANSDERMA (09:31)
--- NOTE | 2022-05-29 10:31 | HO.PSYCHPN ---
Subjective Subjective Date of Service: 05/29/22 Reason For Visit: depression/SI Interim History: Discussed recent history. Patient said he has no idea why he got so wildly agitated. He said he went to a friend's, drink a beer and then that is the last thing he remembers until waking up in the hospital with EKG attached. [employer]ovoltaic Subcontractor explained EMS report about patient being found by a stranger passed out, intoxicated. Patient denies any other drug use that day but says prior to he was abusing cocaine as well. Patient said he had a horrible experience with ketamine, having dissociative episode and feeling terrified; he was shocked to hear of his while behaviors and cannot make sense of it. Patient said that he is doing better now, mood is better and SI is minimal, ephemeral, able to be ignored. He says without a doubt he is going to go to a program and is disappointed in himself for leaving the unit early last time. Patient also found a place for homeless people that can help him get surgeries which patient is hoping for regarding his hip. Photovoltaic Subcontractor discussed reason that gabapentin was left at 600 mg instead of his usual 800 mg and the concern for discharging patient on this medication giving his risks of relapse and overuse of medications. Patient says he fully understands. He is hoping to be able to get back on 800 mg which he said is significantly helpful; he also says that he wants to go to a program which would have medications under supervision. Mental Status Exam Mental Status Exam Narrative: Pt is alert and oriented; behavior is cooperative, engaged and calm; patient is not in distress; dressed in casual attire, bald head, adequate hygiene; mood is described as better and affect congruent; eye contact appropriate; Speech is regular volume, rate and prosody; no psychomotor retardation present; thought process is organized and goal directed; Thought content is on tx, recovery; otherwise pertinent to relevant topics and without any delusional content, paranoid ideations or grandiosity; intermittent SI but chronic and able to be ignored; no HI. There is no evidence of perceptual disturbance. Patients insight and judgment are fair. Diagnostics Vital Signs (24Hr): Vital Signs - 24 hr 05/28/22 18:00 05/29/22 06:00 Temperature 97.4 F 98.1 F Pulse Rate 95 86 Respiratory Rate 16 Blood Pressure 122/86 131/70 Pulse Oximetry 94 98 Oxygen Delivery Method Room Air Room Air BMI result Body Mass Index 32.7 Labs Results: 05/23/22 00:06 05/25/22 08:10 Imaging Radiology Impressions: ITS Impressions Head CT 05/22/22 20:26 IMPRESSION: 1. No acute intracranial pathology. This critical result was discussed with Yandy Cruz at 8:39 PM on 05/22/2022 and it was ascertained that the content and urgency of the report was understood at the time of direct communication. Head/Neck CTA 05/22/22 21:04 IMPRESSION: Significantly motion degraded exam. 1. Within the limitations of this exam, there is no overtly demonstrated proximal arterial occlusion. 2. Potential loss of roper-white matter differentiation within the posterior aspect of the left occipital lobe. However, this is not as well delineated on postcontrast imaging. While this may represent an evolving infarct of the left occipital lobe, it is also possible that the appearance is artifactual in nature. 3. No evidence of acute intracranial hemorrhage. This critical result was discussed with Yandy Cruz NP at 21:41 on 05/22/2023 2 and it was ascertained that the content and urgency of the report was understood at the time of direct communication. Abdomen/Pelvis CT 05/22/22 21:25 IMPRESSION: 1. No acute traumatic finding is seen. There is no parenchymal organ laceration or hemorrhage. No free intraperitoneal air or fluid is seen. There is no acute osseous finding. 2. There is hepatic steatosis. Fleischner guidelines were followed. Cervical Spine CT 05/22/22 21:41 IMPRESSION: No traumatic subluxation or acute cervical spine fracture. Chest CT 05/22/22 21:43 IMPRESSION: 1. No acute traumatic injury identified in the chest. 2. No pneumothorax, airspace consolidation or pleural effusion. 3. No acute fracture identified. 4. Small 3 mm left lower lobe pulmonary nodule, likely intrapulmonary lymph node. Per Fleischner Society guidelines, if the patient is high risk for pulmonary malignancy consider optional low-dose chest CT follow-up in 12 months. If low risk, no follow-up required. Medications Medications Current Medications Acetaminophen (Acetaminophen 325 Mg Tablet) 975 mg PO Q8H PRN PRN Reason: Pain, Mild (Pain Scale 1-3) Last Admin: 05/28/22 12:14 Dose: 975 mg Al Hydroxide/Mg Hydroxide (Magnesium Hydrox/Alum Hydrox 30 Ml Oral.Susp) 30 ml PO Q6H PRN PRN Reason: Heartburn/Nausea Amitriptyline HCl (Amitriptyline Hcl 25 Mg Tablet) 25 mg PO BEDTIME [facility] Last Admin: 05/28/22 20:35 Dose: 25 mg Amphetamine/Dextroamphetamine (Amphetamine Mixed Salts 20 Mg Tablet) 20 mg PO DAILY [facility] Last Admin: 05/29/22 08:35 Dose: 20 mg Buprenorphine/Naloxone (Buprenorphine/Naloxone 8/2 Mg Film) 1 film SUBLINGUAL DAILY [facility] Last Admin: 05/29/22 08:35 Dose: 1 film Buprenorphine/Naloxone (Buprenorphine/Naloxone 4/1 Mg Film) 1 film SUBLINGUAL BID@1300,2100 [facility] Last Admin: 05/28/22 20:42 Dose: 1 film Bupropion HCl (Bupropion Hcl Xl 150 Mg Tab.Er.24h) 450 mg PO DAILY [facility] Last Admin: 05/29/22 08:34 Dose: 450 mg Cyclobenzaprine HCl (Cyclobenzaprine Hcl 10 Mg Tablet) 10 mg PO TID PRN PRN Reason: muscle spasm Ferrous Sulfate (Ferrous Sulfate 324 Mg Tablet.Dr) 325 mg PO DAILY [facility] Last Admin: 05/29/22 08:34 Dose: 324 mg Folic Acid (Folic Acid 1 Mg Tablet) 1 mg PO DAILY [facility] Last Admin: 05/29/22 08:35 Dose: 1 mg Gabapentin (Gabapentin 300 Mg Capsule) 600 mg PO TID [facility] Last Admin: 05/29/22 08:35 Dose: 600 mg Hydroxyzine HCl (Hydroxyzine Hcl 25 Mg Tablet) 25 mg PO Q6H PRN PRN Reason: Anxiety Last Admin: 05/24/22 10:30 Dose: 25 mg Lidocaine (Lidocaine 4 % Patch Adh..Patch) 1 patch TRANSDERMA DAILY PRN PRN Reason: Pain Last Admin: 05/29/22 09:31 Dose: 1 patch Lorazepam (Lorazepam 1 Mg Tablet) 1 mg PO TID [facility] Last Admin: 05/29/22 08:35 Dose: 1 mg Lorazepam (Lorazepam 1 Mg Tablet) 2 mg PO Q2H PRN PRN Reason: CIWA 11 and above Last Admin: 05/28/22 18:53 Dose: 2 mg Lorazepam (Lorazepam 1 Mg Tablet) 1 mg PO Q2H PRN PRN Reason: CIWA 6-10 Last Admin: 05/28/22 14:13 Dose: 1 mg Magnesium Hydroxide (Milk Of Magnesia 30 Ml Oral.Susp) 30 ml PO DAILY PRN PRN Reason: Constipation Metronidazole (Metronidazole 0.75 % Gel 45 Gm Tube) 1 appl TOPICAL BID [facility] Last Admin: 05/29/22 08:36 Dose: Not Given Multivitamins/Vitamin C (Multivitamin Tablet) 1 tab PO DAILY [facility] Last Admin: 05/29/22 08:35 Dose: 1 tab Nicotine (Nicotine 21 Mg Patch.Td24) 21 mg TRANSDERMA DAILY [facility] Last Admin: 05/29/22 08:33 Dose: 21 mg Nicotine Polacrilex (Nicotine Polacrilex 2 Mg Gum) 2 mg BUCCAL Q2H PRN PRN Reason: Nicotine Cravings Last Admin: 05/24/22 10:52 Dose: 2 mg Polyethylene Glycol (Polyethylene Glycol 3350 17 Gm Powd.Pack) 17 gm PO DAILY PRN PRN Reason: Constipation Prazosin HCl (Prazosin Hcl 1 Mg Capsule) 3 mg PO BEDTIME [facility]; Protocol Last Admin: 05/28/22 20:34 Dose: 3 mg Pyridoxine HCl (Pyridoxine Hcl (Vitamin B6) 50 Mg Tablet) 50 mg PO DAILY [facility] Last Admin: 05/29/22 08:35 Dose: 50 mg Senna/Docusate Sodium (Sennosides/Docusate Sodium Tablet) 2 tab PO BEDTIME PRN PRN Reason: Constipation Last Admin: 05/24/22 16:53 Dose: 2 tab Thiamine HCl (Thiamine Hcl 100 Mg Tablet) 50 mg PO DAILY [facility] Last Admin: 05/29/22 08:35 Dose: 50 mg Trazodone HCl (Trazodone Hcl 50 Mg Tablet) 50 mg PO BEDTIME PRN PRN Reason: Insomnia Last Admin: 05/28/22 20:42 Dose: 50 mg Zolpidem Tartrate (Zolpidem Tartrate 5 Mg Tablet) 5 mg PO BEDTIME [facility] Last Admin: 05/28/22 20:36 Dose: 5 mg Allergies Allergies Allergy/AdvReac Type Severity Reaction Status Date / Time ketamine AdvReac Severe Agitated Verified 05/25/22 18:45 phenobarbital AdvReac Vomiting Verified 11/12/21 15:48 Assessment & Plan Assessment & Plan (1) Chronic post-traumatic stress disorder (PTSD): Status: Acute Code(s): F43.12 - Post-traumatic stress disorder, chronic (2) Alcohol use disorder: Status: Chronic (3) Opioid use disorder: Status: Chronic Code(s): F11.99 - Opioid use, unspecified with unspecified opioid-induced disorder Plan 51 yo male, to [facility] via ambulance 05/22/22, reporting SI with plan to jump from a bridge. Reported holidays as main precipitant. Recent [facility] stay with Makenna Jason with reported administrative discharge. Reported ongoing alcohol intake with falls after drinking all day. He awoke with EMT's caring for him in community, this frightened him, he became violently agitated and was given Ketamine a few doses . He feels it sent him into an LSD type state and I think it made it all worse. Hospital course: Today, pt able to reflect upon issues prior to admission. States the drinking was out of control. I was on my way to [facility] to prevent a suicide attempt. I know that I am not going to survive one of these times-it just keeps getting worse. Reviewed effects of the Ketamine. I felt so scared, it was like this medication took all of my fears and turned them loose on me. I was not able to sleep or be sedate or relax, it was an LSD trip. Pt has edema bilateral hands, wrists from restraints and injuries to both calves as well. R Hip still needs THR however, I need some long sober time before they will do it (cancelled by his team in Apr 2022). Pt asks for help with detox, re-establishing med regime and I will go to CSS anywhere in the state and then TSS. Identifies [facility] as a director long term care dual dx placement and specifically mentions [facility] as an interest for his treatment. 05/26/22 Addiction consult 05/27/22 Change Suboxone to TID- 12/25; 08/24 and 08/24 Increase Tylenol prn for hip pain mgt 05/28/2022 continue current regimen 05/29/22 patient doing better, SI resolving and down to just baseline chronic intermittent level that is able to be ignored. Hip is hurting him considerably and he is hoping to get treatment to soon as possible. Wants to go to a program. Remains engaged in treatment, attending groups and participant. Continues to demonstrate good behavioral and impulse control and is appropriate with peers and staff. Patient's agitation likely worsened with ketamine which seems to have caused a dissociated of episode. Photov[employer]ic Subcontractor agrees that patient is at very high risk for relapse and decompensation unless he goes to a stable environment. Discussed with team who agrees and is looking for placement at a [facility] Plan: Ambien 5 mg HS Adderall 20 mg daily Continue on Ativan; will taper Continue CIWA q 2 hours; still scoring Ferrous Sulfate daily Continue gabapentin 600 mg t.i.d. (down from 800 mg normal dose) Will add Ketamine to adverse response list. Pt asks for help with [facility] placement Patient educated on: diagnosis, medication risk/benefits, substance abuse and medical condition Informed Consent: understands Reason for contiued inpatient stay Substantial Risk for: rapid decompensation Time Spent With Patient Time: Total time managing care of this patient today ____ minutes.
[2022-05-29] MEDS: LORazepam 1 MG TABLET 2 MG PO ×2 (12:02→18:07)
[2022-05-29] MEDS: Buprenorphine/Naloxone 4/1 mg FILM 1 FILM SUBLINGUAL ×2 (13:27→20:26)
[2022-05-29 18:00] VITALS: BP 138/80; PULSE 77; RESP 16; TEMP 36.6; O2SAT 96
[2022-05-29] MEDS: Prazosin HCL 1 MG CAPSULE 3 MG PO (20:25)
[2022-05-29] MEDS: Zolpidem Tartrate 5 MG TABLET PO (20:26)
[2022-05-29] MEDS: Amitriptyline HCl 25 MG TABLET PO (20:26)
[2022-05-29] MEDS: traZODone HCL 100 MG TABLET PO (20:26)
[2022-05-30 07:00] VITALS: BMI 30.1
[2022-05-30] MEDS: Nicotine 21 MG PATCH.TD24 TRANSDERMA (08:55)
[2022-05-30] MEDS: Pyridoxine HCl (Vitamin B6) 50 MG TABLET PO (08:56)
[2022-05-30] MEDS: Gabapentin 300 MG CAPSULE 600 MG PO ×3 (08:56→20:47)
[2022-05-30] MEDS: LORazepam 1 MG TABLET PO ×4 (08:56→20:47)
[2022-05-30] MEDS: Buprenorphine/Naloxone 8/2 mg FILM 1 FILM SUBLINGUAL (08:56)
[2022-05-30] MEDS: Amphetamine Mixed Salts 20 MG TABLET PO (08:56)
[2022-05-30] MEDS: Folic Acid 1 MG TABLET PO (08:56)
[2022-05-30] MEDS: buPROPion HCl XL 150 MG TAB.ER.24H 450 MG PO (08:57)
[2022-05-30] MEDS: Thiamine HCL 100 MG TABLET 50 MG PO (08:57)
[2022-05-30 09:01] VITALS: BP 114/72; PULSE 85; RESP 18; TEMP 36.5; O2SAT 100
--- NOTE | 2022-05-30 09:06 | HO.PSYCHPN ---
Subjective Subjective Date of Service: 05/30/22 Reason For Visit: depression/SI Interim History: pt reports that he's doing better; still has bouts of depressive feelings and ongoing anxiety; intermittent passive SI, but it's ignorable. Pt says he's pushing himself to enage and remains active in groups and treatment. Mental Status Exam Mental Status Exam Narrative: Pt is alert and oriented; behavior is cooperative, engaged and calm; patient is not in distress; dressed in casual attire, bald head, adequate hygiene; mood is described as better and affect congruent; eye contact appropriate; Speech is regular volume, rate and prosody; no psychomotor retardation present; thought process is organized and goal directed; Thought content is on tx, recovery; otherwise pertinent to relevant topics and without any delusional content, paranoid ideations or grandiosity; intermittent SI but chronic and able to be ignored; no HI. There is no evidence of perceptual disturbance. Patients insight and judgment are fair. Diagnostics Vital Signs (24Hr): Vital Signs - 24 hr 05/29/22 18:00 05/30/22 09:01 Temperature 97.9 F 97.7 F Pulse Rate 77 85 Respiratory Rate 16 18 Blood Pressure 138/80 114/72 Pulse Oximetry 96 100 Oxygen Delivery Method Room Air Room Air BMI result Body Mass Index 32.7 Labs 05/23/22 00:06 05/25/22 08:10 Imaging Radiology Impressions: ITS Impressions Head CT 05/22/22 20:26 IMPRESSION: 1. No acute intracranial pathology. This critical result was discussed with Yandy Cruz at 8:39 PM on 05/22/2022 and it was ascertained that the content and urgency of the report was understood at the time of direct communication. Head/Neck CTA 05/22/22 21:04 IMPRESSION: Significantly motion degraded exam. 1. Within the limitations of this exam, there is no overtly demonstrated proximal arterial occlusion. 2. Potential loss of roper-white matter differentiation within the posterior aspect of the left occipital lobe. However, this is not as well delineated on postcontrast imaging. While this may represent an evolving infarct of the left occipital lobe, it is also possible that the appearance is artifactual in nature. 3. No evidence of acute intracranial hemorrhage. This critical result was discussed with Yandy Cruz NP at 21:41 on 05/22/2023 2 and it was ascertained that the content and urgency of the report was understood at the time of direct communication. Abdomen/Pelvis CT 05/22/22 21:25 IMPRESSION: 1. No acute traumatic finding is seen. There is no parenchymal organ laceration or hemorrhage. No free intraperitoneal air or fluid is seen. There is no acute osseous finding. 2. There is hepatic steatosis. Fleischner guidelines were followed. Cervical Spine CT 05/22/22 21:41 IMPRESSION: No traumatic subluxation or acute cervical spine fracture. Chest CT 05/22/22 21:43 IMPRESSION: 1. No acute traumatic injury identified in the chest. 2. No pneumothorax, airspace consolidation or pleural effusion. 3. No acute fracture identified. 4. Small 3 mm left lower lobe pulmonary nodule, likely intrapulmonary lymph node. Per Fleischner Society guidelines, if the patient is high risk for pulmonary malignancy consider optional low-dose chest CT follow-up in 12 months. If low risk, no follow-up required. Medications Medications Current Medications Acetaminophen (Acetaminophen 325 Mg Tablet) 975 mg PO Q8H PRN PRN Reason: Pain, Mild (Pain Scale 1-3) Last Admin: 05/28/22 12:14 Dose: 975 mg Al Hydroxide/Mg Hydroxide (Magnesium Hydrox/Alum Hydrox 30 Ml Oral.Susp) 30 ml PO Q6H PRN PRN Reason: Heartburn/Nausea Amitriptyline HCl (Amitriptyline Hcl 25 Mg Tablet) 25 mg PO BEDTIME [facility] Last Admin: 05/29/22 20:26 Dose: 25 mg Amphetamine/Dextroamphetamine (Amphetamine Mixed Salts 20 Mg Tablet) 20 mg PO DAILY [facility] Last Admin: 05/30/22 08:56 Dose: 20 mg Buprenorphine/Naloxone (Buprenorphine/Naloxone 8/2 Mg Film) 1 film SUBLINGUAL DAILY [facility] Last Admin: 05/30/22 08:56 Dose: 1 film Buprenorphine/Naloxone (Buprenorphine/Naloxone 4/1 Mg Film) 1 film SUBLINGUAL BID@1300,2100 [facility] Last Admin: 05/29/22 20:26 Dose: 1 film Bupropion HCl (Bupropion Hcl Xl 150 Mg Tab.Er.24h) 450 mg PO DAILY [facility] Last Admin: 05/30/22 08:57 Dose: 450 mg Cyclobenzaprine HCl (Cyclobenzaprine Hcl 10 Mg Tablet) 10 mg PO TID PRN PRN Reason: muscle spasm Ferrous Sulfate (Ferrous Sulfate 324 Mg Tablet.Dr) 325 mg PO BEDTIME [facility] Folic Acid (Folic Acid 1 Mg Tablet) 1 mg PO DAILY [facility] Last Admin: 05/30/22 08:56 Dose: 1 mg Gabapentin (Gabapentin 300 Mg Capsule) 600 mg PO TID [facility] Last Admin: 05/30/22 08:56 Dose: 600 mg Hydroxyzine HCl (Hydroxyzine Hcl 25 Mg Tablet) 25 mg PO Q6H PRN PRN Reason: Anxiety Last Admin: 05/24/22 10:30 Dose: 25 mg Lidocaine (Lidocaine 4 % Patch Adh..Patch) 1 patch TRANSDERMA DAILY PRN PRN Reason: Pain Last Admin: 05/29/22 09:31 Dose: 1 patch Lorazepam (Lorazepam 1 Mg Tablet) 1 mg PO TID [facility] Last Admin: 05/30/22 08:56 Dose: 1 mg Lorazepam (Lorazepam 1 Mg Tablet) 2 mg PO Q2H PRN PRN Reason: CIWA 11 and above Last Admin: 05/29/22 18:07 Dose: 2 mg Lorazepam (Lorazepam 1 Mg Tablet) 1 mg PO Q2H PRN PRN Reason: CIWA 6-10 Last Admin: 05/29/22 14:28 Dose: 1 mg Magnesium Hydroxide (Milk Of Magnesia 30 Ml Oral.Susp) 30 ml PO DAILY PRN PRN Reason: Constipation Metronidazole (Metronidazole 0.75 % Gel 45 Gm Tube) 1 appl TOPICAL BID [facility] Last Admin: 05/30/22 09:00 Dose: Not Given Multivitamins/Vitamin C (Multivitamin Tablet) 1 tab PO BEDTIME [facility] Nicotine (Nicotine 21 Mg Patch.Td24) 21 mg TRANSDERMA DAILY [facility] Last Admin: 05/30/22 08:55 Dose: 21 mg Nicotine Polacrilex (Nicotine Polacrilex 2 Mg Gum) 2 mg BUCCAL Q2H PRN PRN Reason: Nicotine Cravings Last Admin: 05/24/22 10:52 Dose: 2 mg Polyethylene Glycol (Polyethylene Glycol 3350 17 Gm Powd.Pack) 17 gm PO DAILY PRN PRN Reason: Constipation Prazosin HCl (Prazosin Hcl 1 Mg Capsule) 3 mg PO BEDTIME [facility]; Protocol Last Admin: 05/29/22 20:25 Dose: 3 mg Pyridoxine HCl (Pyridoxine Hcl (Vitamin B6) 50 Mg Tablet) 50 mg PO DAILY [facility] Last Admin: 05/30/22 08:56 Dose: 50 mg Senna/Docusate Sodium (Sennosides/Docusate Sodium Tablet) 2 tab PO BEDTIME PRN PRN Reason: Constipation Last Admin: 05/24/22 16:53 Dose: 2 tab Thiamine HCl (Thiamine Hcl 100 Mg Tablet) 50 mg PO DAILY [facility] Last Admin: 05/30/22 08:57 Dose: 50 mg Trazodone HCl (Trazodone Hcl 100 Mg Tablet) 100 mg PO BEDTIME [facility] Last Admin: 05/29/22 20:26 Dose: 100 mg Zolpidem Tartrate (Zolpidem Tartrate 5 Mg Tablet) 5 mg PO BEDTIME [facility] Last Admin: 05/29/22 20:26 Dose: 5 mg Allergies Allergies Allergy/AdvReac Type Severity Reaction Status Date / Time ketamine AdvReac Severe Agitated Verified 05/25/22 18:45 phenobarbital AdvReac Vomiting Verified 11/12/21 15:48 Assessment & Plan Assessment & Plan (1) Chronic post-traumatic stress disorder (PTSD): Status: Acute Code(s): F43.12 - Post-traumatic stress disorder, chronic (2) Alcohol use disorder: Status: Chronic (3) Opioid use disorder: Status: Chronic Code(s): F11.99 - Opioid use, unspecified with unspecified opioid-induced disorder Plan 51 yo male, [place] [facility] [place] 05[place]22/22, reporting SI with plan to jump from a bridge. Reported holidays as main precipitant. Recent [facility] stay with Makenna Gomez with reported administrative discharge. Reported ongoing alcohol intake with falls after drinking all day. He awoke with EMT's caring for him in community, this frightened him, he became violently agitated and was given Ketamine a few doses . He feels it sent him into an LSD type state and I think it made it all worse. Hospital course: Today, pt able to reflect upon issues prior to admission. States the drinking was out of control. I was on my way to [facility] [place] prevent a suicide attempt. I know that I am not going to survive one of these times-it just keeps getting worse. Reviewed effects of the Ketamine. I felt so scared, it was like this medication took all of my fears and turned them loose on me. I was not able to sleep or be sedate or relax, it was an LSD trip. Pt has edema bilateral hands, wrists from restraints and injuries to both calves as well. R Hip still needs THR however, I need some long sober time before they will do it (cancelled by his team in Apr 2022). Pt asks for help with detox, re-establishing med regime and I will go to CSS anywhere in the state and then TSS. Identifies [facility] as a intermediate designer dual dx placement and specifically mentions [facility] as an interest for his treatment. 05/26/22 Addiction consult 05/27/22 Change Suboxone to TID- 12/25; 08/24 and 08/24 Increase Tylenol prn for hip pain mgt 05/28/2022 continue current regimen 05/29/22 patient doing better, SI resolving and down to just baseline chronic intermittent level that is able to be ignored. Hip is hurting him considerably and he is hoping to get treatment to soon as possible. Wants to go to a program. Remains engaged in treatment, attending groups and participant. Continues to demonstrate good behavioral and impulse control and is appropriate with peers and staff. Patient's agitation likely worsened with ketamine which seems to have caused a dissociated of episode. Slimer agrees that patient is at very high risk for relapse and decompensation unless he goes to a stable environment. Discussed with team who agrees and is looking for placement at a [facility] 05/30 continues to stablize; still with depression and anxiety but coping; remains engaged in tx, groups Plan: Ambien 5 mg HS Adderall 20 mg daily Continue on Ativan; will taper Continue CIWA q 2 hours; still scoring; likely able to dc soon Ferrous Sulfate daily Continue gabapentin 600 mg t.i.d. (down from 800 mg normal dose) Will add Ketamine to adverse response list. Pt asks for help with [facility] placement Patient educated on: diagnosis Informed Consent: understands Reason for contiued inpatient stay Substantial Risk for: rapid decompensation Time Spent With Patient Time: Total time managing care of this patient today ____ minutes.
[2022-05-30] MEDS: Buprenorphine/Naloxone 4/1 mg FILM 1 FILM SUBLINGUAL ×2 (13:40→20:48)
[2022-05-30] MEDS: Acetaminophen 325 MG TABLET 975 MG PO (14:18)
[2022-05-30 18:00] VITALS: BP 170/86; PULSE 81; TEMP 36.6; O2SAT 100
[2022-05-30] MEDS: Ferrous Sulfate 324 MG TABLET.DR 325 MG PO (20:47)
[2022-05-30] MEDS: Zolpidem Tartrate 5 MG TABLET PO (20:47)
[2022-05-30] MEDS: Amitriptyline HCl 25 MG TABLET PO (20:47)
[2022-05-30] MEDS: Prazosin HCL 1 MG CAPSULE 3 MG PO (20:47)
[2022-05-30] MEDS: traZODone HCL 100 MG TABLET PO (20:48)
[2022-05-30] MEDS: Multivitamin TABLET 1 TAB PO (20:48)
[2022-05-31] MEDS: Nicotine 21 MG PATCH.TD24 TRANSDERMA (08:53)
[2022-05-31] MEDS: Amphetamine Mixed Salts 20 MG TABLET PO (08:54)
[2022-05-31] MEDS: Folic Acid 1 MG TABLET PO (08:54)
[2022-05-31] MEDS: buPROPion HCl XL 150 MG TAB.ER.24H 450 MG PO (08:54)
[2022-05-31] MEDS: Gabapentin 300 MG CAPSULE 600 MG PO ×3 (08:54→20:33)
[2022-05-31] MEDS: Thiamine HCL 100 MG TABLET 50 MG PO (08:54)
[2022-05-31] MEDS: Buprenorphine/Naloxone 8/2 mg FILM 1 FILM SUBLINGUAL (08:54)
[2022-05-31] MEDS: LORazepam 1 MG TABLET PO ×3 (08:54→20:32)
[2022-05-31] MEDS: Pyridoxine HCl (Vitamin B6) 50 MG TABLET PO (09:04)
[2022-05-31 09:05] VITALS: BP 124/76; PULSE 74; RESP 18; TEMP 36.4; O2SAT 100
[2022-05-31] MEDS: Buprenorphine/Naloxone 4/1 mg FILM 1 FILM SUBLINGUAL ×2 (13:07→20:32)
[2022-05-31] MEDS: hydrOXYzine HCL 25 MG TABLET PO (17:25)
--- NOTE | 2022-05-31 17:30 | P.PNPSI_ITS ---
Subjective Subjective Date of Service: 05/31/22 Reason For Visit: depression/SI Interim History: Patient reports that he is doing fine; no complaints and no requests. Still struggling with anxiety and depression but doing better. Mental Status Exam Mental Status Exam Narrative: Pt is alert and oriented; behavior is cooperative, engaged and calm; patient is not in distress; dressed in casual attire, bald head, adequate hygiene; mood is described as okay and affect congruent; eye contact appropriate; Speech is regular volume, rate and prosody; no psychomotor retardation present; thought process is organized and goal directed; Thought content is on tx, recovery; otherwise pertinent to relevant topics and without any delusional content, paranoid ideations or grandiosity; intermittent SI but chronic and able to be ignored; no HI. There is no evidence of perceptual disturbance. Patients insight and judgment are fair. Diagnostics Vital Signs (24Hr): Vital Signs - 24 hr 05/30/22 18:00 05/31/22 09:05 Temperature 97.8 F 97.6 F Pulse Rate 81 74 Respiratory Rate 18 Blood Pressure 170/86 H 124/76 Pulse Oximetry 100 100 Oxygen Delivery Method Room Air Room Air BMI result Body Mass Index 30.1 Labs 05/23/22 00:06 05/25/22 08:10 Imaging Radiology Impressions: ITS Impressions Head CT 05/22/22 20:26 IMPRESSION: 1. No acute intracranial pathology. This critical result was discussed with Yandy Cruz at 8:39 PM on 05/22/2022 and it was ascertained that the content and urgency of the report was understood at the time of direct communication. Head/Neck CTA 05/22/22 21:04 IMPRESSION: Significantly motion degraded exam. 1. Within the limitations of this exam, there is no overtly demonstrated proximal arterial occlusion. 2. Potential loss of roper-white matter differentiation within the posterior aspect of the left occipital lobe. However, this is not as well delineated on postcontrast imaging. While this may represent an evolving infarct of the left occipital lobe, it is also possible that the appearance is artifactual in nature. 3. No evidence of acute intracranial hemorrhage. This critical result was discussed with Yandy Cruz NP at 21:41 on 05/22/2023 2 and it was ascertained that the content and urgency of the report was understood at the time of direct communication. Abdomen/Pelvis CT 05/22/22 21:25 IMPRESSION: 1. No acute traumatic finding is seen. There is no parenchymal organ laceration or hemorrhage. No free intraperitoneal air or fluid is seen. There is no acute osseous finding. 2. There is hepatic steatosis. Fleischner guidelines were followed. Cervical Spine CT 05/22/22 21:41 IMPRESSION: No traumatic subluxation or acute cervical spine fracture. Chest CT 05/22/22 21:43 IMPRESSION: 1. No acute traumatic injury identified in the chest. 2. No pneumothorax, airspace consolidation or pleural effusion. 3. No acute fracture identified. 4. Small 3 mm left lower lobe pulmonary nodule, likely intrapulmonary lymph node. Per Fleischner Society guidelines, if the patient is high risk for pulmonary malignancy consider optional low-dose chest CT follow-up in 12 months. If low risk, no follow-up required. Medications Medications Current Medications Acetaminophen (Acetaminophen 325 Mg Tablet) 975 mg PO Q8H PRN PRN Reason: Pain, Mild (Pain Scale 1-3) Last Admin: 05/30/22 14:18 Dose: 975 mg Al Hydroxide/Mg Hydroxide (Magnesium Hydrox/Alum Hydrox 30 Ml Oral.Susp) 30 ml PO Q6H PRN PRN Reason: Heartburn/Nausea Amitriptyline HCl (Amitriptyline Hcl 25 Mg Tablet) 25 mg PO BEDTIME [facility] Last Admin: 05/30/22 20:47 Dose: 25 mg Amphetamine/Dextroamphetamine (Amphetamine Mixed Salts 20 Mg Tablet) 20 mg PO DAILY [facility] Last Admin: 05/31/22 08:54 Dose: 20 mg Buprenorphine/Naloxone (Buprenorphine/Naloxone 8/2 Mg Film) 1 film SUBLINGUAL DAILY [facility] Last Admin: 05/31/22 08:54 Dose: 1 film Buprenorphine/Naloxone (Buprenorphine/Naloxone 4/1 Mg Film) 1 film SUBLINGUAL BID@1300,2100 [facility] Last Admin: 05/31/22 13:07 Dose: 1 film Bupropion HCl (Bupropion Hcl Xl 150 Mg Tab.Er.24h) 450 mg PO DAILY [facility] Last Admin: 05/31/22 08:54 Dose: 450 mg Cyclobenzaprine HCl (Cyclobenzaprine Hcl 10 Mg Tablet) 10 mg PO TID PRN PRN Reason: muscle spasm Ferrous Sulfate (Ferrous Sulfate 324 Mg Tablet.Dr) 325 mg PO BEDTIME [facility] Last Admin: 05/30/22 20:47 Dose: 324 mg Folic Acid (Folic Acid 1 Mg Tablet) 1 mg PO DAILY [facility] Last Admin: 05/31/22 08:54 Dose: 1 mg Gabapentin (Gabapentin 300 Mg Capsule) 600 mg PO TID [facility] Last Admin: 05/31/22 14:45 Dose: 600 mg Hydroxyzine HCl (Hydroxyzine Hcl 25 Mg Tablet) 25 mg PO Q6H PRN PRN Reason: Anxiety Last Admin: 05/24/22 10:30 Dose: 25 mg Lidocaine (Lidocaine 4 % Patch Adh..Patch) 1 patch TRANSDERMA DAILY PRN PRN Reason: Pain Last Admin: 05/29/22 09:31 Dose: 1 patch Lorazepam (Lorazepam 1 Mg Tablet) 1 mg PO TID [facility] Last Admin: 05/31/22 14:46 Dose: 1 mg Magnesium Hydroxide (Milk Of Magnesia 30 Ml Oral.Susp) 30 ml PO DAILY PRN PRN Reason: Constipation Metronidazole (Metronidazole 0.75 % Gel 45 Gm Tube) 1 appl TOPICAL BID [facility] Last Admin: 05/31/22 09:02 Dose: Not Given Multivitamins/Vitamin C (Multivitamin Tablet) 1 tab PO BEDTIME [facility] Last Admin: 05/30/22 20:48 Dose: 1 tab Nicotine (Nicotine 21 Mg Patch.Td24) 21 mg TRANSDERMA DAILY [facility] Last Admin: 05/31/22 08:53 Dose: 21 mg Nicotine Polacrilex (Nicotine Polacrilex 2 Mg Gum) 2 mg BUCCAL Q2H PRN PRN Reason: Nicotine Cravings Last Admin: 05/24/22 10:52 Dose: 2 mg Polyethylene Glycol (Polyethylene Glycol 3350 17 Gm Powd.Pack) 17 gm PO DAILY PRN PRN Reason: Constipation Prazosin HCl (Prazosin Hcl 1 Mg Capsule) 3 mg PO BEDTIME [facility]; Protocol Last Admin: 05/30/22 20:47 Dose: 3 mg Pyridoxine HCl (Pyridoxine Hcl (Vitamin B6) 50 Mg Tablet) 50 mg PO DAILY [facility] Last Admin: 05/31/22 09:04 Dose: 50 mg Senna/Docusate Sodium (Sennosides/Docusate Sodium Tablet) 2 tab PO BEDTIME PRN PRN Reason: Constipation Last Admin: 05/24/22 16:53 Dose: 2 tab Thiamine HCl (Thiamine Hcl 100 Mg Tablet) 50 mg PO DAILY [facility] Last Admin: 05/31/22 08:54 Dose: 50 mg Trazodone HCl (Trazodone Hcl 100 Mg Tablet) 100 mg PO BEDTIME [facility] Last Admin: 05/30/22 20:48 Dose: 100 mg Allergies Allergies Allergy/AdvReac Type Severity Reaction Status Date / Time ketamine AdvReac Severe Agitated Verified 05/25/22 18:45 phenobarbital AdvReac Vomiting Verified 11/12/21 15:48 Assessment & Plan Assessment & Plan (1) Chronic post-traumatic stress disorder (PTSD): Status: Acute Code(s): F43.12 - Post-traumatic stress disorder, chronic (2) Alcohol use disorder: Status: Chronic (3) Opioid use disorder: Status: Chronic Code(s): F11.99 - Opioid use, unspecified with unspecified opioid-induced disorder Plan 51 yo male, to [facility] via ambulance 05/22/22, reporting SI with plan to jump from a bridge. Reported holidays as main precipitant. Recent [facility] stay with Makenna Gomez with reported administrative discharge. Reported ongoing alcohol intake with falls after drinking all day. He awoke with EMT's caring for him in [facility], this frightened him, he became violently agitated and was given Ketamine a few doses . He feels it sent him into an LSD type state and I think it made it all worse. Hospital course: Today, pt able to reflect upon issues prior to admission. States the drinking was out of control. I was on my way to [facility] to prevent a suicide attempt. I know that I am not going to survive one of these times-it just keeps getting worse. Reviewed effects of the Ketamine. I felt so scared, it was like this medication took all of my fears and turned them loose on me. I was not able to sleep or be sedate or relax, it was an LSD trip. Pt has edema bilateral hands, wrists from restraints and injuries to both calves as well. R Hip still needs THR however, I need some long sober time before they will do it (cancelled by his team in Apr 2022). Pt asks for help with detox, re-establishing med regime and I will go to CSS anywhere in the state and then TSS. Identifies [facility] as a pen[facility]iary dual dx p lacement and specifically mentions [facility] as an interest for his treatment. 05/26/22 Addiction consult 05/27/22 Change Suboxone to TID- 8/2; 08/24 and 08/24 Increase Tylenol prn for hip pain mgt 05/28/2022 continue current regimen 05/29/22 patient doing better, SI resolving and down to just baseline chronic intermittent level that is able to be ignored. Hip is hurting him considerably and he is hoping to get treatment to soon as possible. Wants to go to a program. Remains engaged in treatment, attending groups and participant. Continues to demonstrate good behavioral and impulse control and is appropriate with peers and staff. Patient's agitation likely worsened with ketamine which seems to have caused a dissociated of episode. Dwarf Tree Grower agrees that patient is at very high risk for relapse and decompensation unless he goes to a stable environment. Discussed with team who agrees and is looking for placement at a [facility] 05/30 continues to stabilize; still with depression and anxiety but coping; remains engaged in tx, groups 05/31 continue current treatment plan; working on getting patient into program Plan: Ambien 5 mg HS Adderall 20 mg daily Continue on Ativan; will taper Continue CIWA q 2 hours; still scoring; likely able to dc soon Ferrous Sulfate daily Continue gabapentin 600 mg t.i.d. (down from 800 mg normal dose) Will add Ketamine to adverse response list. Pt asks for help with [facility] placement Reason for contiued inpatient stay Substantial Risk for: stable for discharge Time Spent With Patient Time: Total time managing care of this patient today ____ minutes.
[2022-05-31 18:00] VITALS: BP 155/74; PULSE 88; TEMP 36.8; O2SAT 100
[2022-05-31] MEDS: Prazosin HCL 1 MG CAPSULE 3 MG PO (20:32)
[2022-05-31] MEDS: traZODone HCL 100 MG TABLET PO (20:33)
[2022-05-31] MEDS: Amitriptyline HCl 25 MG TABLET PO (20:33)
[2022-05-31] MEDS: Ferrous Sulfate 324 MG TABLET.DR 325 MG PO (20:33)
[2022-05-31] MEDS: Multivitamin TABLET 1 TAB PO (20:33)
[2022-05-31] MEDS: Zolpidem Tartrate 5 MG TABLET PO (21:34)
[2022-06-01 06:00] VITALS: BP 137/60; PULSE 73; RESP 18; TEMP 37; O2SAT 98
[2022-06-01] MEDS: Amphetamine Mixed Salts 20 MG TABLET PO (08:48)
[2022-06-01] MEDS: buPROPion HCl XL 150 MG TAB.ER.24H 450 MG PO (08:48)
[2022-06-01] MEDS: Thiamine HCL 100 MG TABLET 50 MG PO (08:50)
[2022-06-01] MEDS: Folic Acid 1 MG TABLET PO (08:51)
[2022-06-01] MEDS: Gabapentin 300 MG CAPSULE 600 MG PO ×2 (08:51→14:12)
[2022-06-01] MEDS: Buprenorphine/Naloxone 8/2 mg FILM 1 FILM SUBLINGUAL (08:51)
[2022-06-01] MEDS: LORazepam 1 MG TABLET PO ×3 (08:53→19:49)
[2022-06-01] MEDS: Pyridoxine HCl (Vitamin B6) 50 MG TABLET PO (08:53)
[2022-06-01] MEDS: Nicotine 21 MG PATCH.TD24 TRANSDERMA (08:54)
[2022-06-01] MEDS: metroNIDAZOLE 0.75 % Gel 45 GM TUBE 1 APPL TOPICAL (08:56)
--- NOTE | 2022-06-01 10:30 | HO.PSYCHPN ---
Subjective Subjective Date of Service: 06/01/22 Reason For Visit: depression/SI Interim History: Patient said feeling more sad recently. He has had more memories of past trauma. He shared some details and how hard it has been for him to open up. He agrees however that these painful experiences need to be processed in order to stop haunting him. Patient said it felt good to talk even in this 1 session. He shared how even when he thought he was happy, it was only because he was avoiding dealing with past events and that he eventually always relapsed. He is with going conviction he needs to engage in therapy in order to pursue stability. Asks if gabapentin can be increased back to 800 t.i.d. Mental Status Exam Mental Status Exam Narrative: Pt is alert and oriented; behavior is cooperative, engaged and calm; patient is not in distress; dressed in casual attire, bald head, adequate hygiene; mood is described as sad and affect congruent, more downcast; eye contact appropriate; Speech is a little soft; regular rate and prosody; some psychomotor retardation present; thought process is organized and goal directed; Thought content is on tx, recovery; otherwise pertinent to relevant topics and without any delusional content, paranoid ideations or grandiosity; intermittent SI but chronic and able to be ignored; no HI. There is no evidence of perceptual disturbance. Patients insight and judgment are fair. Diagnostics Vital Signs (24Hr): Vital Signs - 24 hr 05/31/22 18:00 06/01/22 06:00 Temperature 98.2 F 98.6 F Pulse Rate 88 73 Respiratory Rate 18 Blood Pressure 155/74 H 137/60 Pulse Oximetry 100 98 Oxygen Delivery Method Room Air BMI result Body Mass Index 30.1 Labs 05/23/22 00:06 05/25/22 08:10 Imaging Radiology Impressions: ITS Impressions Head CT 05/22/22 20:26 IMPRESSION: 1. No acute intracranial pathology. This critical result was discussed with Yandy Cruz at 8:39 PM on 05/22/2022 and it was ascertained that the content and urgency of the report was understood at the time of direct communication. Head/Neck CTA 05/22/22 21:04 IMPRESSION: Significantly motion degraded exam. 1. Within the limitations of this exam, there is no overtly demonstrated proximal arterial occlusion. 2. Potential loss of roper-white matter differentiation within the posterior aspect of the left occipital lobe. However, this is not as well delineated on postcontrast imaging. While this may represent an evolving infarct of the left occipital lobe, it is also possible that the appearance is artifactual in nature. 3. No evidence of acute intracranial hemorrhage. This critical result was discussed with Yandy Cruz NP at 21:41 on 05/22/2023 2 and it was ascertained that the content and urgency of the report was understood at the time of direct communication. Abdomen/Pelvis CT 05/22/22 21:25 IMPRESSION: 1. No acute traumatic finding is seen. There is no parenchymal organ laceration or hemorrhage. No free intraperitoneal air or fluid is seen. There is no acute osseous finding. 2. There is hepatic steatosis. Fleischner guidelines were followed. Cervical Spine CT 05/22/22 21:41 IMPRESSION: No traumatic subluxation or acute cervical spine fracture. Chest CT 05/22/22 21:43 IMPRESSION: 1. No acute traumatic injury identified in the chest. 2. No pneumothorax, airspace consolidation or pleural effusion. 3. No acute fracture identified. 4. Small 3 mm left lower lobe pulmonary nodule, likely intrapulmonary lymph node. Per Fleischner Society guidelines, if the patient is high risk for pulmonary malignancy consider optional low-dose chest CT follow-up in 12 months. If low risk, no follow-up required. Medications Medications Current Medications Acetaminophen (Acetaminophen 325 Mg Tablet) 975 mg PO Q8H PRN PRN Reason: Pain, Mild (Pain Scale 1-3) Last Admin: 05/30/22 14:18 Dose: 975 mg Al Hydroxide/Mg Hydroxide (Magnesium Hydrox/Alum Hydrox 30 Ml Oral.Susp) 30 ml PO Q6H PRN PRN Reason: Heartburn/Nausea Amitriptyline HCl (Amitriptyline Hcl 25 Mg Tablet) 25 mg PO BEDTIME [facility] Last Admin: 05/31/22 20:33 Dose: 25 mg Amphetamine/Dextroamphetamine (Amphetamine Mixed Salts 20 Mg Tablet) 20 mg PO DAILY [facility] Last Admin: 06/01/22 08:48 Dose: 20 mg Buprenorphine/Naloxone (Buprenorphine/Naloxone 8/2 Mg Film) 1 film SUBLINGUAL DAILY [facility] Last Admin: 06/01/22 08:51 Dose: 1 film Buprenorphine/Naloxone (Buprenorphine/Naloxone 4/1 Mg Film) 1 film SUBLINGUAL BID@1300,2100 [facility] Last Admin: 05/31/22 20:32 Dose: 1 film Bupropion HCl (Bupropion Hcl Xl 150 Mg Tab.Er.24h) 450 mg PO DAILY [facility] Last Admin: 06/01/22 08:48 Dose: 450 mg Cyclobenzaprine HCl (Cyclobenzaprine Hcl 10 Mg Tablet) 10 mg PO TID PRN PRN Reason: muscle spasm Ferrous Sulfate (Ferrous Sulfate 324 Mg Tablet.Dr) 325 mg PO BEDTIME [facility] Last Admin: 05/31/22 20:33 Dose: 324 mg Folic Acid (Folic Acid 1 Mg Tablet) 1 mg PO DAILY [facility] Last Admin: 06/01/22 08:51 Dose: 1 mg Gabapentin (Gabapentin 300 Mg Capsule) 600 mg PO TID [facility] Last Admin: 06/01/22 08:51 Dose: 600 mg Hydroxyzine HCl (Hydroxyzine Hcl 25 Mg Tablet) 25 mg PO Q6H PRN PRN Reason: Anxiety Last Admin: 05/31/22 17:25 Dose: 25 mg Lidocaine (Lidocaine 4 % Patch Adh..Patch) 1 patch TRANSDERMA DAILY PRN PRN Reason: Pain Last Admin: 05/29/22 09:31 Dose: 1 patch Lorazepam (Lorazepam 1 Mg Tablet) 1 mg PO TID [facility] Last Admin: 06/01/22 08:53 Dose: 1 mg Magnesium Hydroxide (Milk Of Magnesia 30 Ml Oral.Susp) 30 ml PO DAILY PRN PRN Reason: Constipation Metronidazole (Metronidazole 0.75 % Gel 45 Gm Tube) 1 appl TOPICAL BID [facility] Last Admin: 06/01/22 08:56 Dose: 1 appl Multivitamins/Vitamin C (Multivitamin Tablet) 1 tab PO BEDTIME [facility] Last Admin: 05/31/22 20:33 Dose: 1 tab Nicotine (Nicotine 21 Mg Patch.Td24) 21 mg TRANSDERMA DAILY [facility] Last Admin: 06/01/22 08:54 Dose: 21 mg Nicotine Polacrilex (Nicotine Polacrilex 2 Mg Gum) 2 mg BUCCAL Q2H PRN PRN Reason: Nicotine Cravings Last Admin: 05/24/22 10:52 Dose: 2 mg Polyethylene Glycol (Polyethylene Glycol 3350 17 Gm Powd.Pack) 17 gm PO DAILY PRN PRN Reason: Constipation Prazosin HCl (Prazosin Hcl 1 Mg Capsule) 3 mg PO BEDTIME [facility]; Protocol Last Admin: 05/31/22 20:32 Dose: 3 mg Pyridoxine HCl (Pyridoxine Hcl (Vitamin B6) 50 Mg Tablet) 50 mg PO DAILY [facility] Last Admin: 06/01/22 08:53 Dose: 50 mg Senna/Docusate Sodium (Sennosides/Docusate Sodium Tablet) 2 tab PO BEDTIME PRN PRN Reason: Constipation Last Admin: 05/24/22 16:53 Dose: 2 tab Thiamine HCl (Thiamine Hcl 100 Mg Tablet) 50 mg PO DAILY [facility] Last Admin: 06/01/22 08:50 Dose: 50 mg Trazodone HCl (Trazodone Hcl 100 Mg Tablet) 100 mg PO BEDTIME [facility] Last Admin: 05/31/22 20:33 Dose: 100 mg Zolpidem Tartrate (Zolpidem Tartrate 5 Mg Tablet) 5 mg PO BEDTIME PRN PRN Reason: Insomnia Last Admin: 05/31/22 21:34 Dose: 5 mg Allergies Allergies Allergy/AdvReac Type Severity Reaction Status Date / Time ketamine AdvReac Severe Agitated Verified 05/25/22 18:45 phenobarbital AdvReac Vomiting Verified 11/12/21 15:48 Assessment & Plan Assessment & Plan (1) Chronic post-traumatic stress disorder (PTSD): Status: Acute Code(s): F43.12 - Post-traumatic stress disorder, chronic (2) Alcohol use disorder: Status: Chronic (3) Opioid use disorder: Status: Chronic Code(s): F11.99 - Opioid use, unspecified with unspecified opioid-induced disorder Plan 51 yo male, [place] [facility] [place] 05[place], reporting SI with plan to jump from a bridge. Reported holidays as main precipitant. Recent [facility] stay with Makenna Gomez with reported administrative discharge. Reported ongoing alcohol intake with falls after drinking all day. He awoke with EMT's caring for him in community, this frightened him, he became violently agitated and was given Ketamine a few doses . He feels it sent him into an LSD type state and I think it made it all worse. Hospital course: Today, pt able to reflect upon issues prior to admission. States the drinking was out of control. I was on my way to [facility] [place] attempt. I know that I am not going to survive one of these times-it just keeps getting worse. Reviewed effects of the Ketamine. I felt so scared, it was like this medication took all of my fears and turned them loose on me. I was not able to sleep or be sedate or relax, it was an LSD trip. Pt has edema bilateral hands, wrists from restraints and injuries to both calves as well. R Hip still needs THR however, I need some long sober time before they will do it (cancelled by his team in Apr 2022). Pt asks for help with detox, re-establishing med regime and I will go to CSS anywhere in the state and then TSS. Identifies [facility] as a skilled nursing dual dx placement and specifically mentions [facility] as an interest for his treatment. 05/26/22 Addiction consult 05/27/22 Change Suboxone to TID- 12/25; 08/24 and 08/24 Increase Tylenol prn for hip pain mgt 05/28/2022 continue current regimen 05/29/22 patient doing better, SI resolving and down to just baseline chronic intermittent level that is able to be ignored. Hip is hurting him considerably and he is hoping to get treatment to soon as possible. Wants to go to a program. Remains engaged in treatment, attending groups and participant. Continues to demonstrate good behavioral and impulse control and is appropriate with peers and staff. Patient's agitation likely worsened with ketamine which seems to have caused a dissociated of episode. Surveying Crew Rodman agrees that patient is at very high risk for relapse and decompensation unless he goes to a stable environment. Discussed with team who agrees and is looking for placement at a [facility] 05/30 continues to stabilize; still with depression and anxiety but coping; remains engaged in tx, groups 05/31 continue current treatment plan; working on getting patient into program 06/01 dealing with past trauma; making connections between trauma and relapse and need for consistent therapy Plan: Ambien 5 mg HS Adderall 20 mg daily Continue on Ativan; will taper Discontinue CIWA Ferrous Sulfate daily Increased back to gabapentin 800 mg t.i.d. (down from 800 mg normal dose) Will add Ketamine to adverse response list. Pt asks for help with [facility] placement Patient educated on: diagnosis, medication risk/benefits, substance abuse and therapeutic strategies Informed Consent: understands Reason for contiued inpatient stay Substantial Risk for: stable for discharge Time Spent With Patient Time: Total time managing care of this patient today ____ minutes.
[2022-06-01] MEDS: hydrOXYzine HCL 25 MG TABLET PO ×2 (13:39→19:48)
[2022-06-01] MEDS: Buprenorphine/Naloxone 4/1 mg FILM 1 FILM SUBLINGUAL ×2 (13:39→16:43)
[2022-06-01] MEDS: Gabapentin 100 MG CAPSULE 200 MG PO (16:43)
[2022-06-01 19:45] VITALS: BP 139/74; PULSE 72; RESP 16; TEMP 36.1; O2SAT 99
[2022-06-01] MEDS: Ferrous Sulfate 324 MG TABLET.DR 325 MG PO (19:47)
[2022-06-01] MEDS: Prazosin HCL 1 MG CAPSULE 3 MG PO (19:48)
[2022-06-01] MEDS: Multivitamin TABLET 1 TAB PO (19:48)
[2022-06-01] MEDS: Amitriptyline HCl 25 MG TABLET PO (19:48)
[2022-06-01] MEDS: traZODone HCL 100 MG TABLET PO (19:48)
[2022-06-01] MEDS: Gabapentin 400 MG CAPSULE 800 MG PO (19:48)
[2022-06-01] MEDS: Zolpidem Tartrate 5 MG TABLET PO (19:52)
[2022-06-02] MEDS: buPROPion HCl XL 150 MG TAB.ER.24H 450 MG PO (09:26)
[2022-06-02] MEDS: Nicotine 21 MG PATCH.TD24 TRANSDERMA (09:26)
[2022-06-02] MEDS: Gabapentin 400 MG CAPSULE 800 MG PO ×3 (09:26→20:20)
[2022-06-02] MEDS: Folic Acid 1 MG TABLET PO (09:27)
[2022-06-02] MEDS: Amphetamine Mixed Salts 20 MG TABLET PO (09:27)
[2022-06-02] MEDS: Pyridoxine HCl (Vitamin B6) 50 MG TABLET PO (09:27)
[2022-06-02] MEDS: LORazepam 1 MG TABLET PO ×3 (09:27→20:20)
[2022-06-02] MEDS: Buprenorphine/Naloxone 8/2 mg FILM 1 FILM SUBLINGUAL (09:27)
[2022-06-02] MEDS: Thiamine HCL 100 MG TABLET 50 MG PO (09:28)
[2022-06-02 09:35] VITALS: BP 130/60; PULSE 71; RESP 18; TEMP 36.2; O2SAT 99
--- NOTE | 2022-06-02 10:44 | P.PNPSI_ITS ---
Subjective Subjective Date of Service: 06/02/22 Reason For Visit: depression/SI Interim History: pt reports feeling a little better; asks for Flexeril to be restarted for muscle aches related to hip pain. Mental Status Exam Mental Status Exam Narrative: Pt is alert and oriented; behavior is cooperative, engaged and calm; patient is not in distress; dressed in casual attire, bald head, adequate hygiene; mood is described as better and affect congruent; eye contact appropriate; Speech is regular volume, rate and prosody; no psychomotor retardation present; thought process is organized and goal directed; Thought content is on tx, recovery; otherwise pertinent to relevant topics and without any delusional content, paranoid ideations or grandiosity; intermittent SI but chronic and able to be ignored; no HI. There is no evidence of perceptual disturbance. Patients insight and judgment are fair. Diagnostics Vital Signs (24Hr): Vital Signs - 24 hr 06/01/22 19:45 06/02/22 09:35 Temperature 97 F 97.2 F Pulse Rate 72 71 Respiratory Rate 16 18 Blood Pressure 139/74 130/60 Pulse Oximetry 99 99 Oxygen Delivery Method Room Air Room Air BMI result Body Mass Index 30.1 Labs 05/23/22 00:06 05/25/22 08:10 Imaging Radiology Impressions: ITS Impressions Head CT 05/22/22 20:26 IMPRESSION: 1. No acute intracranial pathology. This critical result was discussed with Yandy Cruz at 8:39 PM on 05/22/2022 and it was ascertained that the content and urgency of the report was understood at the time of direct communication. Head/Neck CTA 05/22/22 21:04 IMPRESSION: Significantly motion degraded exam. 1. Within the limitations of this exam, there is no overtly demonstrated proximal arterial occlusion. 2. Potential loss of roper-white matter differentiation within the posterior aspect of the left occipital lobe. However, this is not as well delineated on postcontrast imaging. While this may represent an evolving infarct of the left occipital lobe, it is also possible that the appearance is artifactual in nature. 3. No evidence of acute intracranial hemorrhage. This critical result was discussed with Yandy Cruz NP at 21:41 on 05/22/2023 2 and it was ascertained that the content and urgency of the report was understood at the time of direct communication. Abdomen/Pelvis CT 05/22/22 21:25 IMPRESSION: 1. No acute traumatic finding is seen. There is no parenchymal organ laceration or hemorrhage. No free intraperitoneal air or fluid is seen. There is no acute osseous finding. 2. There is hepatic steatosis. Fleischner guidelines were followed. Cervical Spine CT 05/22/22 21:41 IMPRESSION: No traumatic subluxation or acute cervical spine fracture. Chest CT 05/22/22 21:43 IMPRESSION: 1. No acute traumatic injury identified in the chest. 2. No pneumothorax, airspace consolidation or pleural effusion. 3. No acute fracture identified. 4. Small 3 mm left lower lobe pulmonary nodule, likely intrapulmonary lymph node. Per Fleischner Society guidelines, if the patient is high risk for pulmonary malignancy consider optional low-dose chest CT follow-up in 12 months. If low risk, no follow-up required. Medications Medications Current Medications Acetaminophen (Acetaminophen 325 Mg Tablet) 975 mg PO Q8H PRN PRN Reason: Pain, Mild (Pain Scale 1-3) Last Admin: 05/30/22 14:18 Dose: 975 mg Al Hydroxide/Mg Hydroxide (Magnesium Hydrox/Alum Hydrox 30 Ml Oral.Susp) 30 ml PO Q6H PRN PRN Reason: Heartburn/Nausea Amitriptyline HCl (Amitriptyline Hcl 25 Mg Tablet) 25 mg PO BEDTIME [facility] Last Admin: 06/01/22 19:48 Dose: 25 mg Amphetamine/Dextroamphetamine (Amphetamine Mixed Salts 20 Mg Tablet) 20 mg PO DAILY [facility] Last Admin: 06/02/22 09:27 Dose: 20 mg Buprenorphine/Naloxone (Buprenorphine/Naloxone 8/2 Mg Film) 1 film SUBLINGUAL DAILY [facility] Last Admin: 06/02/22 09:27 Dose: 1 film Buprenorphine/Naloxone (Buprenorphine/Naloxone 4/1 Mg Film) 1 film SUBLINGUAL BID@1300,1700 [facility] Last Admin: 06/01/22 16:43 Dose: 1 film Bupropion HCl (Bupropion Hcl Xl 150 Mg Tab.Er.24h) 450 mg PO DAILY [facility] Last Admin: 06/02/22 09:26 Dose: 450 mg Cyclobenzaprine HCl (Cyclobenzaprine Hcl 10 Mg Tablet) 10 mg PO TID PRN PRN Reason: muscle spasm Ferrous Sulfate (Ferrous Sulfate 324 Mg Tablet.Dr) 325 mg PO BEDTIME [facility] Last Admin: 06/01/22 19:47 Dose: 324 mg Folic Acid (Folic Acid 1 Mg Tablet) 1 mg PO DAILY [facility] Last Admin: 06/02/22 09:27 Dose: 1 mg Gabapentin (Gabapentin 400 Mg Capsule) 800 mg PO TID [facility] Last Admin: 06/02/22 09:26 Dose: 800 mg Hydroxyzine HCl (Hydroxyzine Hcl 25 Mg Tablet) 25 mg PO Q6H PRN PRN Reason: Anxiety Last Admin: 06/01/22 19:48 Dose: 25 mg Lidocaine (Lidocaine 4 % Patch Adh..Patch) 1 patch TRANSDERMA DAILY PRN PRN Reason: Pain Last Admin: 05/29/22 09:31 Dose: 1 patch Lorazepam (Lorazepam 1 Mg Tablet) 1 mg PO TID [facility] Last Admin: 06/02/22 09:27 Dose: 1 mg Magnesium Hydroxide (Milk Of Magnesia 30 Ml Oral.Susp) 30 ml PO DAILY PRN PRN Reason: Constipation Metronidazole (Metronidazole 0.75 % Gel 45 Gm Tube) 1 appl TOPICAL BID [facility] Last Admin: 06/02/22 09:29 Dose: Not Given Multivitamins/Vitamin C (Multivitamin Tablet) 1 tab PO BEDTIME [facility] Last Admin: 06/01/22 19:48 Dose: 1 tab Nicotine (Nicotine 21 Mg Patch.Td24) 21 mg TRANSDERMA DAILY [facility] Last Admin: 06/02/22 09:26 Dose: 21 mg Nicotine Polacrilex (Nicotine Polacrilex 2 Mg Gum) 2 mg BUCCAL Q2H PRN PRN Reason: Nicotine Cravings Last Admin: 05/24/22 10:52 Dose: 2 mg Polyethylene Glycol (Polyethylene Glycol 3350 17 Gm Powd.Pack) 17 gm PO DAILY PRN PRN Reason: Constipation Prazosin HCl (Prazosin Hcl 1 Mg Capsule) 3 mg PO BEDTIME [facility]; Protocol Last Admin: 06/01/22 19:48 Dose: 3 mg Pyridoxine HCl (Pyridoxine Hcl (Vitamin B6) 50 Mg Tablet) 50 mg PO DAILY [facility] Last Admin: 06/02/22 09:27 Dose: 50 mg Senna/Docusate Sodium (Sennosides/Docusate Sodium Tablet) 2 tab PO BEDTIME PRN PRN Reason: Constipation Last Admin: 05/24/22 16:53 Dose: 2 tab Thiamine HCl (Thiamine Hcl 100 Mg Tablet) 50 mg PO DAILY [facility] Last Admin: 06/02/22 09:28 Dose: 50 mg Trazodone HCl (Trazodone Hcl 100 Mg Tablet) 100 mg PO BEDTIME [facility] Last Admin: 06/01/22 19:48 Dose: 100 mg Zolpidem Tartrate (Zolpidem Tartrate 5 Mg Tablet) 5 mg PO BEDTIME PRN PRN Reason: Insomnia Last Admin: 06/01/22 19:52 Dose: 5 mg Allergies Allergies Allergy/AdvReac Type Severity Reaction Status Date / Time ketamine AdvReac Severe Agitated Verified 05/25/22 18:45 phenobarbital AdvReac Vomiting Verified 11/12/21 15:48 Assessment & Plan Assessment & Plan (1) Chronic post-traumatic stress disorder (PTSD): Status: Acute Code(s): F43.12 - Post-traumatic stress disorder, chronic (2) Alcohol use disorder: Status: Chronic (3) Opioid use disorder: Status: Chronic Code(s): F11.99 - Opioid use, unspecified with unspecified opioid-induced disorder Plan 51 yo male, to [facility] via ambulance 05/22/22, reporting SI with plan to jump from a bridge. Reported holidays as main precipitant. Recent [facility] stay with Makenna Gomez with reported administrative discharge. Reported ongoing alcohol intake with falls after drinking all day. He awoke with EMT's caring for him in community, this frightened him, he became violently agitated and was given Ketamine a few doses . He feels it sent him into an LSD type state and I think it made it all worse. Hospital course: Today, pt able to reflect upon issues prior to admission. States the drinking was out of control. I was on my way to [facility] to prevent a suicide attempt. I know that I am not going to survive one of these times-it just keeps getting worse. Reviewed effects of the Ketamine. I felt so scared, it was like this medication took all of my fears and turned them loose on me. I was not able to sleep or be sedate or relax, it was an LSD trip. Pt has edema bilateral hands, wrists from restraints and injuries to both calves as well. R Hip still needs THR however, I need some long sober time before they will do it (cancelled by his team in Apr 2022). Pt asks for help with detox, re-establishing med regime and I will go to [facility] anywhere in the state and then [facility]. Identifies [facility] as a shelter dual dx placement and specifically mentions [facility] as an interest for his treatment. 05/26/22 Addiction consult 05/27/22 Change Suboxone to TID- 12/25; 08/24 and 08/24 Increase Tylenol prn for hip pain mgt 05/28/2022 continue current regimen 05/29/22 patient doing better, SI resolving and down to just baseline chronic intermittent level that is able to be ignored. Hip is hurting him considerably and he is hoping to get treatment to soon as possible. Wants to go to a [facility]. Remains engaged in treatment, attending groups and participant. Continues to demonstrate good behavioral and impulse control and is appropriate with peers and staff. Patient's agitation likely worsened with ketamine which seems to have caused a dissociated of episode. Applications Analyst agrees that patient is at very high risk for relapse and decompensation unless he goes to a stable environment. Discussed with team who agrees and is looking for placement at a [facility] 05/30 continues to stabilize; still with depression and anxiety but coping; remains engaged in tx, groups 05/31 continue current treatment plan; working on getting patient into program 06/01 dealing with past trauma; making connections between trauma and relapse and need for consistent therapy 06/02 doing better Plan: Ambien 5 mg HS Adderall 20 mg daily Start Flexeril prn Continue on Ativan; will taper Discontinue CIWA Ferrous Sulfate daily Increased back to gabapentin 800 mg t.i.d. (down from 800 mg normal dose) Will add Ketamine to adverse response list. Pt asks for help with [facility] placement Reason for contiued inpatient stay Substantial Risk for: stable for discharge Time Spent With Patient Time: Total time managing care of this patient today ____ minutes.
[2022-06-02] MEDS: hydrOXYzine HCL 25 MG TABLET PO (13:26)
[2022-06-02] MEDS: Buprenorphine/Naloxone 4/1 mg FILM 1 FILM SUBLINGUAL ×2 (13:26→17:15)
[2022-06-02] MEDS: Cyclobenzaprine HCl 10 MG TABLET PO ×3 (13:26→20:20)
[2022-06-02] MEDS: Prazosin HCL 1 MG CAPSULE 3 MG PO (20:19)
[2022-06-02] MEDS: traZODone HCL 100 MG TABLET PO (20:20)
[2022-06-02] MEDS: Ferrous Sulfate 324 MG TABLET.DR 325 MG PO (20:20)
[2022-06-02] MEDS: Amitriptyline HCl 25 MG TABLET PO (20:20)
[2022-06-02] MEDS: Zolpidem Tartrate 5 MG TABLET PO (20:20)
[2022-06-02] MEDS: Multivitamin TABLET 1 TAB PO (20:23)
[2022-06-03 09:17] VITALS: BP 128/64; PULSE 65; RESP 16; TEMP 36.3; O2SAT 99
[2022-06-03] MEDS: Folic Acid 1 MG TABLET PO (09:21)
[2022-06-03] MEDS: Pyridoxine HCl (Vitamin B6) 50 MG TABLET PO (09:21)
[2022-06-03] MEDS: Amphetamine Mixed Salts 20 MG TABLET PO (09:22)
[2022-06-03] MEDS: buPROPion HCl XL 150 MG TAB.ER.24H 450 MG PO (09:22)
[2022-06-03] MEDS: LORazepam 1 MG TABLET PO ×3 (09:22→20:13)
[2022-06-03] MEDS: Gabapentin 400 MG CAPSULE 800 MG PO ×3 (09:22→20:12)
[2022-06-03] MEDS: Buprenorphine/Naloxone 8/2 mg FILM 1 FILM SUBLINGUAL (09:22)
[2022-06-03] MEDS: Thiamine HCL 100 MG TABLET 50 MG PO (10:33)
[2022-06-03] MEDS: Nicotine 21 MG PATCH.TD24 TRANSDERMA (10:33)
[2022-06-03] MEDS: Cyclobenzaprine HCl 10 MG TABLET PO ×3 (10:34→20:13)
[2022-06-03] MEDS: Acetaminophen 325 MG TABLET 975 MG PO (12:49)
--- NOTE | 2022-06-03 13:19 | HO.PSYCHPN ---
Subjective Subjective Date of Service: 06/03/22 Reason For Visit: depression/SI Interim History: Patient reports that he is coping with anxiety and some depression but overall feels stable; no SI. Patient complains of hip pain which is chronic and wonders if there is opportunity to get Ketorolac injection. Otherwise attending groups and hoping to get into a program Mental Status Exam Mental Status Exam Narrative: Pt is alert and oriented; behavior is cooperative, engaged and calm; patient is not in distress; dressed in casual attire, bald head, adequate hygiene; mood is described as ok and affect congruent; eye contact appropriate; Speech is regular volume, rate and prosody; no psychomotor retardation present; thought process is organized and goal directed; Thought content is on tx, recovery; otherwise pertinent to relevant topics and without any delusional content, paranoid ideations or grandiosity; No SI; no HI. There is no evidence of perceptual disturbance. Patients insight and judgment are fair. Diagnostics Vital Signs (24Hr): Vital Signs - 24 hr 06/03/22 09:17 Temperature 97.3 F Pulse Rate 65 Respiratory Rate 16 Blood Pressure 128/64 Pulse Oximetry 99 Oxygen Delivery Method Room Air BMI result Body Mass Index 30.1 Labs 05/23/22 00:06 05/25/22 08:10 Imaging Radiology Impressions: ITS Impressions Head CT 05/22/22 20:26 IMPRESSION: 1. No acute intracranial pathology. This critical result was discussed with Yandy Cruz at 8:39 PM on 05/22/2022 and it was ascertained that the content and urgency of the report was understood at the time of direct communication. Head/Neck CTA 05/22/22 21:04 IMPRESSION: Significantly motion degraded exam. 1. Within the limitations of this exam, there is no overtly demonstrated proximal arterial occlusion. 2. Potential loss of roper-white matter differentiation within the posterior aspect of the left occipital lobe. However, this is not as well delineated on postcontrast imaging. While this may represent an evolving infarct of the left occipital lobe, it is also possible that the appearance is artifactual in nature. 3. No evidence of acute intracranial hemorrhage. This critical result was discussed with Yandy Cruz NP at 21:41 on 05/22/2023 2 and it was ascertained that the content and urgency of the report was understood at the time of direct communication. Abdomen/Pelvis CT 05/22/22 21:25 IMPRESSION: 1. No acute traumatic finding is seen. There is no parenchymal organ laceration or hemorrhage. No free intraperitoneal air or fluid is seen. There is no acute osseous finding. 2. There is hepatic steatosis. Fleischner guidelines were followed. Cervical Spine CT 05/22/22 21:41 IMPRESSION: No traumatic subluxation or acute cervical spine fracture. Chest CT 05/22/22 21:43 IMPRESSION: 1. No acute traumatic injury identified in the chest. 2. No pneumothorax, airspace consolidation or pleural effusion. 3. No acute fracture identified. 4. Small 3 mm left lower lobe pulmonary nodule, likely intrapulmonary lymph node. Per Fleischner Society guidelines, if the patient is high risk for pulmonary malignancy consider optional low-dose chest CT follow-up in 12 months. If low risk, no follow-up required. Medications Medications Current Medications Acetaminophen (Acetaminophen 325 Mg Tablet) 975 mg PO Q8H PRN PRN Reason: Pain, Mild (Pain Scale 1-3) Last Admin: 06/03/22 12:49 Dose: 975 mg Al Hydroxide/Mg Hydroxide (Magnesium Hydrox/Alum Hydrox 30 Ml Oral.Susp) 30 ml PO Q6H PRN PRN Reason: Heartburn/Nausea Amitriptyline HCl (Amitriptyline Hcl 25 Mg Tablet) 25 mg PO BEDTIME [facility] Last Admin: 06/02/22 20:20 Dose: 25 mg Amphetamine/Dextroamphetamine (Amphetamine Mixed Salts 20 Mg Tablet) 20 mg PO DAILY [facility] Last Admin: 06/03/22 09:22 Dose: 20 mg Buprenorphine/Naloxone (Buprenorphine/Naloxone 8/2 Mg Film) 1 film SUBLINGUAL DAILY [facility] Last Admin: 06/03/22 09:22 Dose: 1 film Buprenorphine/Naloxone (Buprenorphine/Naloxone 4/1 Mg Film) 1 film SUBLINGUAL BID@1300,1700 [facility] Last Admin: 06/02/22 17:15 Dose: 1 film Bupropion HCl (Bupropion Hcl Xl 150 Mg Tab.Er.24h) 450 mg PO DAILY [facility] Last Admin: 06/03/22 09:22 Dose: 450 mg Cyclobenzaprine HCl (Cyclobenzaprine Hcl 10 Mg Tablet) 10 mg PO TID PRN PRN Reason: muscle spasm Last Admin: 06/03/22 10:34 Dose: 10 mg Cyclobenzaprine HCl (Cyclobenzaprine Hcl 10 Mg Tablet) 10 mg PO TID PRN PRN Reason: muscle aches Last Admin: 06/02/22 13:26 Dose: 10 mg Ferrous Sulfate (Ferrous Sulfate 324 Mg Tablet.Dr) 325 mg PO BEDTIME [facility] Last Admin: 06/02/22 20:20 Dose: 325 mg Folic Acid (Folic Acid 1 Mg Tablet) 1 mg PO DAILY [facility] Last Admin: 06/03/22 09:21 Dose: 1 mg Gabapentin (Gabapentin 400 Mg Capsule) 800 mg PO TID [facility] Last Admin: 06/03/22 09:22 Dose: 800 mg Hydroxyzine HCl (Hydroxyzine Hcl 25 Mg Tablet) 25 mg PO Q6H PRN PRN Reason: Anxiety Last Admin: 06/02/22 13:26 Dose: 25 mg Lidocaine (Lidocaine 4 % Patch Adh..Patch) 1 patch TRANSDERMA DAILY PRN PRN Reason: Pain Last Admin: 05/29/22 09:31 Dose: 1 patch Lorazepam (Lorazepam 1 Mg Tablet) 1 mg PO TID [facility] Last Admin: 06/03/22 09:22 Dose: 1 mg Magnesium Hydroxide (Milk Of Magnesia 30 Ml Oral.Susp) 30 ml PO DAILY PRN PRN Reason: Constipation Metronidazole (Metronidazole 0.75 % Gel 45 Gm Tube) 1 appl TOPICAL BID [facility] Last Admin: 06/03/22 10:29 Dose: Not Given Multivitamins/Vitamin C (Multivitamin Tablet) 1 tab PO BEDTIME [facility] Last Admin: 06/02/22 20:23 Dose: 1 tab Nicotine (Nicotine 21 Mg Patch.Td24) 21 mg TRANSDERMA DAILY [facility] Last Admin: 06/03/22 10:33 Dose: 21 mg Nicotine Polacrilex (Nicotine Polacrilex 2 Mg Gum) 2 mg BUCCAL Q2H PRN PRN Reason: Nicotine Cravings Last Admin: 05/24/22 10:52 Dose: 2 mg Polyethylene Glycol (Polyethylene Glycol 3350 17 Gm Powd.Pack) 17 gm PO DAILY PRN PRN Reason: Constipation Prazosin HCl (Prazosin Hcl 1 Mg Capsule) 3 mg PO BEDTIME [facility]; Protocol Last Admin: 06/02/22 20:19 Dose: 3 mg Pyridoxine HCl (Pyridoxine Hcl (Vitamin B6) 50 Mg Tablet) 50 mg PO DAILY [facility] Last Admin: 06/03/22 09:21 Dose: 50 mg Senna/Docusate Sodium (Sennosides/Docusate Sodium Tablet) 2 tab PO BEDTIME PRN PRN Reason: Constipation Last Admin: 05/24/22 16:53 Dose: 2 tab Thiamine HCl (Thiamine Hcl 100 Mg Tablet) 50 mg PO DAILY [facility] Last Admin: 06/03/22 10:33 Dose: 50 mg Trazodone HCl (Trazodone Hcl 100 Mg Tablet) 100 mg PO BEDTIME [facility] Last Admin: 06/02/22 20:20 Dose: 100 mg Zolpidem Tartrate (Zolpidem Tartrate 5 Mg Tablet) 5 mg PO BEDTIME PRN PRN Reason: Insomnia Last Admin: 06/02/22 20:20 Dose: 5 mg Allergies Allergies Allergy/AdvReac Type Severity Reaction Status Date / Time ketamine AdvReac Severe Agitated Verified 05/25/22 18:45 phenobarbital AdvReac Vomiting Verified 11/12/21 15:48 Assessment & Plan Assessment & Plan (1) Chronic post-traumatic stress disorder (PTSD): Status: Acute Code(s): F43.12 - Post-traumatic stress disorder, chronic (2) Alcohol use disorder: Status: Chronic (3) Opioid use disorder: Status: Chronic Code(s): F11.99 - Opioid use, unspecified with unspecified opioid-induced disorder Plan 51 yo male, to [facility] via ambulance 05/22/22, reporting SI with plan to jump from a bridge. Reported holidays as main precipitant. Recent [facility] stay with Makenna Gomez with reported administrative discharge. Reported ongoing alcohol intake with falls after drinking all day. He awoke with EMT's caring for him in community, this frightened him, he became violently agitated and was given Ketamine a few doses . He feels it sent him into an LSD type state and I think it made it all worse. Hospital course: Today, pt able to reflect upon issues prior to admission. States the drinking was out of control. I was on my way to [facility] to prevent a suicide attempt. I know that I am not going to survive one of these times-it just keeps getting worse. Reviewed effects of the Ketamine. I felt so scared, it was like this medication took all of my fears and turned them loose on me. I was not able to sleep or be sedate or relax, it was an LSD trip. Pt has edema bilateral hands, wrists from restraints and injuries to both calves as well. R Hip still needs THR however, I need some long sober time before they will do it (cancelled by his team in Apr 2022). Pt asks for help with detox, re-establishing med regime and I will go to [facility] anywhere in the state and then [facility]. Identifies [facility] as a [facility] dual dx placement and specifically mentions [facility] as an interest for his treatment. 05/26/22 Addiction consult 05/27/22 Change Suboxone to TID- 12/25; 08/24 and 08/24 Increase Tylenol prn for hip pain mgt 05/28/2022 continue current regimen 05/29/22 patient doing better, SI resolving and down to just baseline chronic intermittent level that is able to be ignored. Hip is hurting him considerably and he is hoping to get treatment to soon as possible. Wants to go to a program. Remains engaged in treatment, attending groups and participant. Continues to demonstrate good behavioral and impulse control and is appropriate with peers and staff. Patient's agitation likely worsened with ketamine which seems to have caused a dissociated of episode. Supervisor Payroll agrees that patient is at very high risk for relapse and decompensation unless he goes to a stable environment. Discussed with team who agrees and is looking for placement at a [facility] 05/30 continues to stabilize; still with depression and anxiety but coping; remains engaged in tx, groups 05/31 continue current treatment plan; working on getting patient into program 06/01 dealing with past trauma; making connections between trauma and relapse and need for consistent therapy 06/02 doing better Of note, patient does not have any acute medical needs and is medically stable. He does not need 24 hour nursing care. Detox is complete. Any reference to 24 hour nursing care is regarding first 2 days of admission, while he was in the emergency room being treated for consequences of alcohol abuse and withdrawal, all which have fully resolved). Plan: Ambien 5 mg HS Adderall 20 mg daily Start Flexeril prn Continue on Ativan; will taper Discontinue CIWA Ferrous Sulfate daily Increased back to gabapentin 800 mg t.i.d. (down from 800 mg normal dose) Will add Ketamine to adverse response list. Pt asks for help with [facility] placement Patient educated on: diagnosis and medical condition Informed Consent: understands Reason for contiued inpatient stay Substantial Risk for: stable for discharge Time Spent With Patient Time: Total time managing care of this patient today ____ minutes.
[2022-06-03] MEDS: Lidocaine 4 % Patch ADH..PATCH 1 PATCH TRANSDERMA (13:32)
[2022-06-03] MEDS: hydrOXYzine HCL 25 MG TABLET PO ×2 (13:33→20:13)
[2022-06-03] MEDS: Buprenorphine/Naloxone 4/1 mg FILM 1 FILM SUBLINGUAL ×2 (13:33→15:42)
[2022-06-03 16:22] VITALS: BP 123/72; PULSE 82; TEMP 37
[2022-06-03] MEDS: chlorproMAZINE HCl 25 MG TABLET PO (19:24)
[2022-06-03] MEDS: Prazosin HCL 1 MG CAPSULE 4 MG PO (20:12)
[2022-06-03] MEDS: Multivitamin TABLET 1 TAB PO (20:12)
[2022-06-03] MEDS: Zolpidem Tartrate 5 MG TABLET PO (20:13)
[2022-06-03] MEDS: Ferrous Sulfate 324 MG TABLET.DR 325 MG PO (20:13)
[2022-06-03] MEDS: traZODone HCL 50 MG TABLET 150 MG PO (20:13)
[2022-06-03] MEDS: Amitriptyline HCl 25 MG TABLET PO (20:13)
[2022-06-04] MEDS: Nicotine 21 MG PATCH.TD24 TRANSDERMA (08:15)
[2022-06-04] MEDS: Folic Acid 1 MG TABLET PO (08:16)
[2022-06-04] MEDS: Gabapentin 400 MG CAPSULE 800 MG PO ×3 (08:16→21:18)
[2022-06-04] MEDS: Amphetamine Mixed Salts 20 MG TABLET PO (08:16)
[2022-06-04] MEDS: LORazepam 1 MG TABLET PO ×3 (08:16→21:18)
[2022-06-04] MEDS: buPROPion HCl XL 150 MG TAB.ER.24H 450 MG PO (08:16)
[2022-06-04] MEDS: Pyridoxine HCl (Vitamin B6) 50 MG TABLET PO (08:16)
[2022-06-04] MEDS: Buprenorphine/Naloxone 8/2 mg FILM 1 FILM SUBLINGUAL (08:16)
[2022-06-04] MEDS: Thiamine HCL 100 MG TABLET 50 MG PO (08:27)
[2022-06-04] MEDS: Cyclobenzaprine HCl 10 MG TABLET PO ×3 (08:32→21:18)
[2022-06-04] MEDS: chlorproMAZINE HCl 25 MG TABLET PO ×2 (08:34→18:46)
--- NOTE | 2022-06-04 08:50 | P.PNPSI_ITS ---
Subjective Subjective Date of Service: 06/04/22 Reason For Visit: depression/SI Interim History: Patient reports he is dealing well enough with anxiety depression. He says it is mostly related to aftercare concerns. Analytical Tech discussed program options with him and He remains very hopeful about getting into a program. That hip pain is a little better after he did some stretching exercises; does not want ketorolac at this time. Mental Status Exam Mental Status Exam Narrative: Pt is alert and oriented; behavior is cooperative, engaged and calm; patient is not in distress; dressed in casual attire, bald head, adequate hygiene; mood is described as ok and affect congruent; eye contact appropriate; Speech is regular volume, rate and prosody; no psychomotor retardation present; thought process is organized and goal directed; Thought content is on tx, recovery; otherwise pertinent to relevant topics and without any delusional content, paranoid ideations or grandiosity; No SI; no HI. There is no evidence of perceptual disturbance. Patients insight and judgment are fair. Diagnostics Vital Signs (24Hr): Vital Signs - 24 hr 06/03/22 09:17 06/03/22 16:22 Temperature 97.3 F 98.6 F Pulse Rate 65 82 Respiratory Rate 16 Blood Pressure 128/64 123/72 Pulse Oximetry 99 Oxygen Delivery Method Room Air BMI result Body Mass Index 30.1 Labs 05/23/22 00:06 05/25/22 08:10 Imaging Radiology Impressions: ITS Impressions Head CT 05/22/22 20:26 IMPRESSION: 1. No acute intracranial pathology. This critical result was discussed with Yandy Cruz at 8:39 PM on 05/22/2022 and it was ascertained that the content and urgency of the report was understood at the time of direct communication. Head/Neck CTA 05/22/22 21:04 IMPRESSION: Significantly motion degraded exam. 1. Within the limitations of this exam, there is no overtly demonstrated proximal arterial occlusion. 2. Potential loss of roper-white matter differentiation within the posterior aspect of the left occipital lobe. However, this is not as well delineated on postcontrast imaging. While this may represent an evolving infarct of the left occipital lobe, it is also possible that the appearance is artifactual in nature. 3. No evidence of acute intracranial hemorrhage. This critical result was discussed with Yandy Cruz NP at 21:41 on 05/22/2023 2 and it was ascertained that the content and urgency of the report was understood at the time of direct communication. Abdomen/Pelvis CT 05/22/22 21:25 IMPRESSION: 1. No acute traumatic finding is seen. There is no parenchymal organ laceration or hemorrhage. No free intraperitoneal air or fluid is seen. There is no acute osseous finding. 2. There is hepatic steatosis. Fleischner guidelines were followed. Cervical Spine CT 05/22/22 21:41 IMPRESSION: No traumatic subluxation or acute cervical spine fracture. Chest CT 05/22/22 21:43 IMPRESSION: 1. No acute traumatic injury identified in the chest. 2. No pneumothorax, airspace consolidation or pleural effusion. 3. No acute fracture identified. 4. Small 3 mm left lower lobe pulmonary nodule, likely intrapulmonary lymph node. Per Fleischner Society guidelines, if the patient is high risk for pulmonary malignancy consider optional low-dose chest CT follow-up in 12 months. If low risk, no follow-up required. Medications Medications Current Medications Acetaminophen (Acetaminophen 325 Mg Tablet) 975 mg PO Q8H PRN PRN Reason: Pain, Mild (Pain Scale 1-3) Last Admin: 06/03/22 12:49 Dose: 975 mg Al Hydroxide/Mg Hydroxide (Magnesium Hydrox/Alum Hydrox 30 Ml Oral.Susp) 30 ml PO Q6H PRN PRN Reason: Heartburn/Nausea Amitriptyline HCl (Amitriptyline Hcl 25 Mg Tablet) 25 mg PO BEDTIME [facility] Last Admin: 06/03/22 20:13 Dose: 25 mg Amphetamine/Dextroamphetamine (Amphetamine Mixed Salts 20 Mg Tablet) 20 mg PO DAILY [facility] Last Admin: 06/04/22 08:16 Dose: 20 mg Buprenorphine/Naloxone (Buprenorphine/Naloxone 8/2 Mg Film) 1 film SUBLINGUAL DAILY [facility] Last Admin: 06/04/22 08:16 Dose: 1 film Buprenorphine/Naloxone (Buprenorphine/Naloxone 4/1 Mg Film) 1 film SUBLINGUAL BID@1300,1700 [facility] Last Admin: 06/03/22 15:42 Dose: 1 film Bupropion HCl (Bupropion Hcl Xl 150 Mg Tab.Er.24h) 450 mg PO DAILY [facility] Last Admin: 06/04/22 08:16 Dose: 450 mg Chlorpromazine HCl (Chlorpromazine Hcl 25 Mg Tablet) 25 mg PO Q6H PRN PRN Reason: Anxiety Last Admin: 06/04/22 08:34 Dose: 25 mg Cyclobenzaprine HCl (Cyclobenzaprine Hcl 10 Mg Tablet) 10 mg PO TID PRN PRN Reason: muscle spasm Last Admin: 06/04/22 08:32 Dose: 10 mg Cyclobenzaprine HCl (Cyclobenzaprine Hcl 10 Mg Tablet) 10 mg PO TID PRN PRN Reason: muscle aches Last Admin: 06/02/22 13:26 Dose: 10 mg Ferrous Sulfate (Ferrous Sulfate 324 Mg Tablet.Dr) 325 mg PO BEDTIME [facility] [place] Last Admin: 06/03/22 20:13 Dose: 324 mg Folic Acid (Folic Acid 1 Mg Tablet) 1 mg PO DAILY [facility] Last Admin: 06/04/22 08:16 Dose: 1 mg Gabapentin (Gabapentin 400 Mg Capsule) 800 mg PO TID [facility] Last Admin: 06/04/22 08:16 Dose: 800 mg Hydroxyzine HCl (Hydroxyzine Hcl 25 Mg Tablet) 25 mg PO Q6H PRN PRN Reason: Anxiety Last Admin: 06/03/22 20:13 Dose: 25 mg Lidocaine (Lidocaine 4 % Patch Adh..Patch) 1 patch TRANSDERMA DAILY PRN PRN Reason: Pain Last Admin: 06/03/22 13:32 Dose: 1 patch Lorazepam (Lorazepam 1 Mg Tablet) 1 mg PO TID [facility] Last Admin: 06/04/22 08:16 Dose: 1 mg Magnesium Hydroxide (Milk Of Magnesia 30 Ml Oral.Susp) 30 ml PO DAILY PRN PRN Reason: Constipation Metronidazole (Metronidazole 0.75 % Gel 45 Gm Tube) 1 appl TOPICAL BID [facility] Last Admin: 06/04/22 08:21 Dose: Not Given Multivitamins/Vitamin C (Multivitamin Tablet) 1 tab PO BEDTIME [facility] Last Admin: 06/03/22 20:12 Dose: 1 tab Nicotine (Nicotine 21 Mg Patch.Td24) 21 mg TRANSDERMA DAILY [facility] Last Admin: 06/04/22 08:15 Dose: 21 mg Nicotine Polacrilex (Nicotine Polacrilex 2 Mg Gum) 2 mg BUCCAL Q2H PRN PRN Reason: Nicotine Cravings Last Admin: 05/24/22 10:52 Dose: 2 mg Polyethylene Glycol (Polyethylene Glycol 3350 17 Gm Powd.Pack) 17 gm PO DAILY PRN PRN Reason: Constipation Prazosin HCl (Prazosin Hcl 1 Mg Capsule) 4 mg PO BEDTIME [facility]; Protocol Last Admin: 06/03/22 20:12 Dose: 4 mg Pyridoxine HCl (Pyridoxine Hcl (Vitamin B6) 50 Mg Tablet) 50 mg PO DAILY [facility] Last Admin: 06/04/22 08:16 Dose: 50 mg Senna/Docusate Sodium (Sennosides/Docusate Sodium Tablet) 2 tab PO BEDTIME PRN PRN Reason: Constipation Last Admin: 05/24/22 16:53 Dose: 2 tab Thiamine HCl (Thiamine Hcl 100 Mg Tablet) 50 mg PO DAILY [facility] Last Admin: 06/04/22 08:27 Dose: 50 mg Trazodone HCl (Trazodone Hcl 50 Mg Tablet) 150 mg PO BEDTIME [facility] Last Admin: 06/03/22 20:13 Dose: 150 mg Zolpidem Tartrate (Zolpidem Tartrate 5 Mg Tablet) 5 mg PO BEDTIME PRN PRN Reason: Insomnia Last Admin: 06/03/22 20:13 Dose: 5 mg Allergies Allergies Allergy/AdvReac Type Severity Reaction Status Date / Time ketamine AdvReac Severe Agitated Verified 05/25/22 18:45 phenobarbital AdvReac Vomiting Verified 11/12/21 15:48 Assessment & Plan Assessment & Plan (1) Chronic post-traumatic stress disorder (PTSD): Status: Acute Code(s): F43.12 - Post-traumatic stress disorder, chronic (2) Alcohol use disorder: Status: Chronic (3) Opioid use disorder: Status: Chronic Code(s): F11.99 - Opioid use, unspecified with unspecified opioid-induced disorder Plan 51 yo male, to [facility] [place] [place] [facility] via ambulance 05/22/22, reporting SI with plan to jump from a bridge. Reported holidays as main precipitant. Recent [facility] stay with Makenna Gomez with reported administrative discharge. Reported ongoing alcohol intake with falls after drinking all day. He awoke with EMT's caring for him in community, this frightened him, he became violently agitated and was given K etamine a few doses . He feels it sent him into an LSD type state and I think it made it all worse. Hospital course: Today, pt able to reflect upon issues prior to admission. States the drinking was out of control. I was on my way to [facility] [place] [place] to prevent a suicide attempt. I know that I am not going to survive one of these times-it just keeps getting worse. Reviewed effects of the Ketamine. I felt so scared, it was like this medication took all of my fears and turned them loose on me. I was not able to sleep or be sedate or relax, it was an LSD trip. Pt has edema bilateral hands, wrists from restraints and injuries to both calves as well. R Hip still needs THR however, I need some long sober time before they will do it (cancelled by his team in Apr 2022). Pt asks for help with detox, re-establishing med regime and I will go to CSS anywhere in the state and then TSS. Identifies [facility] as a assisted dual dx placement and specifically mentions [facility] as an interest for his treatment. 05/26/22 Addiction consult 05/27/22 Change Suboxone to TID- 12/25; 08/24 and 08/24 Increase Tylenol prn for hip pain mgt 05/28/2022 continue current regimen 05/29/22 patient doing better, SI resolving and down to just baseline chronic intermittent level that is able to be ignored. Hip is hurting him considerably and he is hoping to get treatment to soon as possible. Wants to go to a program. Remains engaged in treatment, attending groups and participant. Continues to demonstrate good behavioral and impulse control and is appropriate with peers and staff. Patient's agitation likely worsened with ketamine which seems to have caused a dissociated of episode. Analytical Tech agrees that patient is at very high risk for relapse and decompensation unless he goes to a stable environ ment. Discussed with team who agrees and is looking for placement at a [facility] 05/30 continues to stabilize; still with depression and anxiety but coping; remains engaged in tx, groups 05/31 continue current treatment plan; working on getting patient into program 06/01 dealing with past trauma; making connections between trauma and relapse and need for consistent therapy 06/02 doing better 06/04 continue current treatment plan Of note, patient does not have any acute medical needs and is medically stable. He does not need 24 hour nursing care. Detox is complete. Any reference to 24 hour nursing care is regarding first 2 days of admission, while he was in the emergency room being treated for consequences of alcohol abuse and withdrawal, all which have fully resolved). Plan: Ambien 5 mg HS Adderall 20 mg daily Started Flexeril prn Continue on Ativan; will taper NDC Ferrous Sulfate daily Increased back to gabapentin 800 mg t.i.d. (down from 800 mg normal dose) Social Work coping with [facility] placement Patient educated on: diagnosis and medical condition Reason for contiued inpatient stay Substantial Risk for: stable for discharge Time Spent With Patient Time: Total time managing care of this patient today ____ minutes.
[2022-06-04 09:05] VITALS: BP 130/62; PULSE 80; RESP 16; TEMP 36.6; O2SAT 100
[2022-06-04] MEDS: Buprenorphine/Naloxone 4/1 mg FILM 1 FILM SUBLINGUAL ×2 (13:00→16:13)
[2022-06-04 17:25] VITALS: BP 128/61; PULSE 75; RESP 16; TEMP 35.9; O2SAT 100
[2022-06-04] MEDS: Amitriptyline HCl 25 MG TABLET PO (21:16)
[2022-06-04] MEDS: Ferrous Sulfate 324 MG TABLET.DR 325 MG PO (21:16)
[2022-06-04] MEDS: Multivitamin TABLET 1 TAB PO (21:17)
[2022-06-04] MEDS: traZODone HCL 50 MG TABLET 150 MG PO (21:17)
[2022-06-04] MEDS: Prazosin HCL 1 MG CAPSULE 4 MG PO (21:18)
[2022-06-04] MEDS: Zolpidem Tartrate 5 MG TABLET PO (21:18)
[2022-06-05 07:53] VITALS: BP 92/61; PULSE 75; RESP 16; TEMP 37.1; O2SAT 97
[2022-06-05] MEDS: Gabapentin 400 MG CAPSULE 800 MG PO ×3 (08:26→19:47)
[2022-06-05] MEDS: Buprenorphine/Naloxone 8/2 mg FILM 1 FILM SUBLINGUAL (08:26)
[2022-06-05] MEDS: Nicotine 21 MG PATCH.TD24 TRANSDERMA (08:26)
[2022-06-05] MEDS: buPROPion HCl XL 150 MG TAB.ER.24H 450 MG PO (08:26)
[2022-06-05] MEDS: Folic Acid 1 MG TABLET PO (08:27)
[2022-06-05] MEDS: Amphetamine Mixed Salts 20 MG TABLET PO (08:27)
[2022-06-05] MEDS: Cyclobenzaprine HCl 10 MG TABLET PO ×2 (08:27→19:45)
[2022-06-05] MEDS: Pyridoxine HCl (Vitamin B6) 50 MG TABLET PO (08:27)
[2022-06-05] MEDS: Thiamine HCL 100 MG TABLET 50 MG PO (08:27)
[2022-06-05] MEDS: LORazepam 1 MG TABLET PO ×2 (08:28→19:47)
[2022-06-05] MEDS: Buprenorphine/Naloxone 4/1 mg FILM 1 FILM SUBLINGUAL ×2 (13:19→15:54)
--- NOTE | 2022-06-05 14:55 | HO.PSYCHPN ---
Subjective Subjective Date of Service: 06/05/22 Reason For Visit: depression/SI Interim History: No change. Said sleep is better which he thinks is helping his anxiety to be lower Mental Status Exam Mental Status Exam Narrative: Pt is alert and oriented; behavior is cooperative, engaged and calm; patient is not in distress; dressed in casual attire, bald head, adequate hygiene; mood is described as ok and affect congruent; eye contact appropriate; Speech is regular volume, rate and prosody; no psychomotor retardation present; thought process is organized and goal directed; Thought content is on tx, recovery; otherwise pertinent to relevant topics and without any delusional content, paranoid ideations or grandiosity; No SI; no HI. There is no evidence of perceptual disturbance. Patients insight and judgment are fair. Diagnostics Vital Signs (24Hr): Vital Signs - 24 hr 06/04/22 17:25 06/05/22 07:53 Temperature 96.6 F L 98.8 F Pulse Rate 75 75 Respiratory Rate 16 16 Blood Pressure 128/61 92/61 Pulse Oximetry 100 97 Oxygen Delivery Method Room Air Room Air BMI result Body Mass Index 30.1 Labs 05/23/22 00:06 05/25/22 08:10 Imaging Radiology Impressions: ITS Impressions Head CT 05/22/22 20:26 IMPRESSION: 1. No acute intracranial pathology. This critical result was discussed with Yandy Cruz at 8:39 PM on 05/22/2022 and it was ascertained that the content and urgency of the report was understood at the time of direct communication. Head/Neck CTA 05/22/22 21:04 IMPRESSION: Significantly motion degraded exam. 1. Within the limitations of this exam, there is no overtly demonstrated proximal arterial occlusion. 2. Potential loss of roper-white matter differentiation within the posterior aspect of the left occipital lobe. However, this is not as well delineated on postcontrast imaging. While this may represent an evolving infarct of the left occipital lobe, it is also possible that the appearance is artifactual in nature. 3. No evidence of acute intracranial hemorrhage. This critical result was discussed with Yandy Cruz NP at 21:41 on 05/22/2023 2 and it was ascertained that the content and urgency of the report was understood at the time of direct communication. Abdomen/Pelvis CT 05/22/22 21:25 IMPRESSION: 1. No acute traumatic finding is seen. There is no parenchymal organ laceration or hemorrhage. No free intraperitoneal air or fluid is seen. There is no acute osseous finding. 2. There is hepatic steatosis. Fleischner guidelines were followed. Cervical Spine CT 05/22/22 21:41 IMPRESSION: No traumatic subluxation or acute cervical spine fracture. Chest CT 05/22/22 21:43 IMPRESSION: 1. No acute traumatic injury identified in the chest. 2. No pneumothorax, airspace consolidation or pleural effusion. 3. No acute fracture identified. 4. Small 3 mm left lower lobe pulmonary nodule, likely intrapulmonary lymph node. Per Fleischner Society guidelines, if the patient is high risk for pulmonary malignancy consider optional low-dose chest CT follow-up in 12 months. If low risk, no follow-up required. Medications Medications Current Medications Acetaminophen (Acetaminophen 325 Mg Tablet) 975 mg PO Q8H PRN PRN Reason: Pain, Mild (Pain Scale 1-3) Last Admin: 06/03/22 12:49 Dose: 975 mg Al Hydroxide/Mg Hydroxide (Magnesium Hydrox/Alum Hydrox 30 Ml Oral.Susp) 30 ml PO Q6H PRN PRN Reason: Heartburn/Nausea Amitriptyline HCl (Amitriptyline Hcl 25 Mg Tablet) 25 mg PO BEDTIME [facility] Last Admin: 06/04/22 21:16 Dose: 25 mg Amphetamine/Dextroamphetamine (Amphetamine Mixed Salts 20 Mg Tablet) 20 mg PO DAILY [facility] Last Admin: 06/05/22 08:27 Dose: 20 mg Buprenorphine/Naloxone (Buprenorphine/Naloxone 8/2 Mg Film) 1 film SUBLINGUAL DAILY [facility] Last Admin: 06/05/22 08:26 Dose: 1 film Buprenorphine/Naloxone (Buprenorphine/Naloxone 4/1 Mg Film) 1 film SUBLINGUAL BID@1300,1700 [facility] Last Admin: 06/05/22 13:19 Dose: 1 film Bupropion HCl (Bupropion Hcl Xl 150 Mg Tab.Er.24h) 450 mg PO DAILY [facility] Last Admin: 06/05/22 08:26 Dose: 450 mg Chlorpromazine HCl (Chlorpromazine Hcl 25 Mg Tablet) 25 mg PO Q6H PRN PRN Reason: Anxiety Last Admin: 06/04/22 18:46 Dose: 25 mg Cyclobenzaprine HCl (Cyclobenzaprine Hcl 10 Mg Tablet) 10 mg PO TID PRN PRN Reason: muscle aches Last Admin: 06/05/22 08:27 Dose: 10 mg Ferrous Sulfate (Ferrous Sulfate 324 Mg Tablet.Dr) 325 mg PO BEDTIME [facility] Last Admin: 06/04/22 21:16 Dose: 324 mg Folic Acid (Folic Acid 1 Mg Tablet) 1 mg PO DAILY [facility] Last Admin: 06/05/22 08:27 Dose: 1 mg Gabapentin (Gabapentin 400 Mg Capsule) 800 mg PO TID [facility] Last Admin: 06/05/22 08:26 Dose: 800 mg Hydroxyzine HCl (Hydroxyzine Hcl 25 Mg Tablet) 25 mg PO Q6H PRN PRN Reason: Anxiety Last Admin: 06/03/22 20:13 Dose: 25 mg Lidocaine (Lidocaine 4 % Patch Adh..Patch) 1 patch TRANSDERMA DAILY PRN PRN Reason: Pain Last Admin: 06/03/22 13:32 Dose: 1 patch Lorazepam (Lorazepam 1 Mg Tablet) 1 mg PO BID [facility] Last Admin: 06/05/22 08:28 Dose: 1 mg Magnesium Hydroxide (Milk Of Magnesia 30 Ml Oral.Susp) 30 ml PO DAILY PRN PRN Reason: Constipation Metronidazole (Metronidazole 0.75 % Gel 45 Gm Tube) 1 appl TOPICAL BID [facility] Last Admin: 06/05/22 08:59 Dose: Not Given Multivitamins/Vitamin C (Multivitamin Tablet) 1 tab PO BEDTIME [facility] Last Admin: 06/04/22 21:17 Dose: 1 tab Nicotine (Nicotine 21 Mg Patch.Td24) 21 mg TRANSDERMA DAILY [facility] Last Admin: 06/05/22 08:26 Dose: 21 mg Nicotine Polacrilex (Nicotine Polacrilex 2 Mg Gum) 2 mg BUCCAL Q2H PRN PRN Reason: Nicotine Cravings Last Admin: 05/24/22 10:52 Dose: 2 mg Polyethylene Glycol (Polyethylene Glycol 3350 17 Gm Powd.Pack) 17 gm PO DAILY PRN PRN Reason: Constipation Prazosin HCl (Prazosin Hcl 1 Mg Capsule) 4 mg PO BEDTIME [facility]; Protocol Last Admin: 06/04/22 21:18 Dose: 4 mg Pyridoxine HCl (Pyridoxine Hcl (Vitamin B6) 50 Mg Tablet) 50 mg PO DAILY [facility] Last Admin: 06/05/22 08:27 Dose: 50 mg Senna/Docusate Sodium (Sennosides/Docusate Sodium Tablet) 2 tab PO BEDTIME PRN PRN Reason: Constipation Last Admin: 05/24/22 16:53 Dose: 2 tab Thiamine HCl (Thiamine Hcl 100 Mg Tablet) 50 mg PO DAILY [facility] Last Admin: 06/05/22 08:27 Dose: 50 mg Trazodone HCl (Trazodone Hcl 50 Mg Tablet) 150 mg PO BEDTIME [facility] Last Admin: 06/04/22 21:17 Dose: 150 mg Zolpidem Tartrate (Zolpidem Tartrate 5 Mg Tablet) 5 mg PO BEDTIME PRN PRN Reason: Insomnia Last Admin: 06/04/22 21:18 Dose: 5 mg Allergies Allergies Allergy/AdvReac Type Severity Reaction Status Date / Time ketamine AdvReac Severe Agitated Verified 05/25/22 18:45 phenobarbital AdvReac Vomiting Verified 11/12/21 15:48 Assessment & Plan Assessment & Plan (1) Chronic post-traumatic stress disorder (PTSD): Status: Acute Code(s): F43.12 - Post-traumatic stress disorder, chronic (2) Alcohol use disorder: Status: Chronic (3) Opioid use disorder: Status: Chronic Code(s): F11.99 - Opioid use, unspecified with unspecified opioid-induced disorder Plan 51 yo male, to [facility] via ambulance 05/22/22, reporting SI with plan to jump from a bridge. Reported holidays as main precipitant. Recent [facility] stay with Makenna Gomez with reported administrative discharge. Reported ongoing alcohol intake with falls after drinking all day. He awoke with EMT's caring for him in community, this frightened him, he became violently agitated and was given Ketamine a few doses . He feels it sent him into an LSD type state and I think it made it all worse. Hospital course: Today, pt able to reflect upon issues prior to admission. States the drinking was out of control. I was on my way to [facility] to prevent a suicide attempt. I know that I am not going to survive one of these times-it just keeps getting worse. Reviewed effects of the Ketamine. I felt so scared, it was like this medication took all of my fears and turned them loose on me. I was not able to sleep or be sedate or relax, it was an LSD trip. Pt has edema bilateral hands, wrists from restraints and injuries to both calves as well. R Hip still needs THR however, I need some long sober time before they will do it (cancelled by his team in Apr 2022). Pt asks for help with detox, re-establishing med regime and I will go to CSS anywhere in the state and then TSS. 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 05/26/22 Addiction consult 05/27/22 Change Suboxone to TID- 12/25; 08/24 and 08/24 Increase Tylenol prn for hip pain mgt 05/28/2022 continue current regimen 05/29/22 patient doing better, SI resolving and down to just baseline chronic intermittent level that is able to be ignored. Hip is hurting him considerably and he is hoping to get treatment to soon as possible. Wants to go to a program. Remains engaged in treatment, attending groups and participant. Continues to demonstrate good behavioral and impulse control and is appropriate with peers and staff. Patient's agitation likely worsened with ketamine which seems to have caused a dissociated of episode. Licensed Practical Nurse agrees that patient is at very high risk for relapse and decompensation unless he goes to a stable environment. Discussed with team who agrees and is looking for placement at a [facility] 05/30 continues to stabilize; still with depression and anxiety but coping; remains engaged in tx, groups 05/31 continue current treatment plan; working on getting patient into program 06/01 dealing with past trauma; making connections between trauma and relapse and need for consistent therapy 06/02 doing better 06/04 continue current treatment plan Of note, patient does not have any acute medical needs and is medically stable. He does not need 24 hour nursing care. Detox is complete. Any reference to 24 hour nursing care is regarding first 2 days of admission, while he was in the emergency room being treated for consequences of alcohol abuse and withdrawal, all which have fully resolved). Plan: Ambien 5 mg HS Adderall 20 mg daily Started Flexeril prn Continue on Ativan; will taper NDC Ferrous Sulfate daily Increased back to gabapentin 800 mg t.i.d. (down from 800 mg normal dose) Social Work coping with [facility] placement Reason for contiued inpatient stay Substantial Risk for: stable for discharge Time Spent With Patient Time: Total time managing care of this patient today ____ minutes.
[2022-06-05 18:00] VITALS: BP 119/76; PULSE 96; RESP 16; TEMP 36.2; O2SAT 99
[2022-06-05] MEDS: traZODone HCL 50 MG TABLET 150 MG PO (19:46)
[2022-06-05] MEDS: Zolpidem Tartrate 5 MG TABLET PO (19:46)
[2022-06-05] MEDS: Amitriptyline HCl 25 MG TABLET PO (19:46)
[2022-06-05] MEDS: chlorproMAZINE HCl 25 MG TABLET PO (19:47)
[2022-06-05] MEDS: Multivitamin TABLET 1 TAB PO (19:47)
[2022-06-05] MEDS: Ferrous Sulfate 324 MG TABLET.DR 325 MG PO (19:48)
[2022-06-05] MEDS: Prazosin HCL 1 MG CAPSULE 4 MG PO (19:48)
[2022-06-05] MEDS: metroNIDAZOLE 0.75 % Gel 45 GM TUBE 1 APPL TOPICAL (19:58)
[2022-06-06 07:00] VITALS: BMI 30.7
[2022-06-06] MEDS: Amphetamine Mixed Salts 20 MG TABLET PO (09:02)
[2022-06-06] MEDS: LORazepam 1 MG TABLET PO ×2 (09:02→20:13)
[2022-06-06] MEDS: Pyridoxine HCl (Vitamin B6) 50 MG TABLET PO (09:02)
[2022-06-06] MEDS: buPROPion HCl XL 150 MG TAB.ER.24H 450 MG PO (09:02)
[2022-06-06] MEDS: Thiamine HCL 100 MG TABLET 50 MG PO (09:02)
[2022-06-06] MEDS: Buprenorphine/Naloxone 8/2 mg FILM 1 FILM SUBLINGUAL (09:02)
[2022-06-06] MEDS: Folic Acid 1 MG TABLET PO (09:03)
[2022-06-06] MEDS: Gabapentin 400 MG CAPSULE 800 MG PO ×3 (09:03→20:13)
[2022-06-06] MEDS: Nicotine 21 MG PATCH.TD24 TRANSDERMA (09:05)
[2022-06-06 09:10] VITALS: BP 129/76; PULSE 73; RESP 18; TEMP 36.3; O2SAT 97
[2022-06-06] MEDS: Cyclobenzaprine HCl 10 MG TABLET PO ×3 (09:42→20:13)
--- NOTE | 2022-06-06 10:22 | P.PNPSI_ITS ---
Subjective Subjective Date of Service: 06/06/22 Reason For Visit: depression/SI Interim History: Patient says he continues to feel better; sleeping well which he thinks is helping. Hip pain is reduced as patient continues to do PT stretches that he learned. No complaints no requests Mental Status Exam Mental Status Exam Narrative: Pt is alert and oriented; behavior is cooperative, engaged and calm; patient is not in distress; dressed in casual attire, bald head, adequate hygiene; mood is described as better and affect congruent; eye contact appropriate; Speech is regular volume, rate and prosody; no psychomotor retardation present; thought process is organized and goal directed; Thought content is on tx, recovery; otherwise pertinent to relevant topics and without any delusional content, paranoid ideations or grandiosity; No SI; no HI. There is no evidence of perceptual disturbance. Patients insight and judgment are fair. Diagnostics Vital Signs (24Hr): Vital Signs - 24 hr 06/05/22 18:00 06/06/22 09:10 Temperature 97.1 F 97.3 F Pulse Rate 96 73 Respiratory Rate 16 18 Blood Pressure 119/76 129/76 Pulse Oximetry 99 97 Oxygen Delivery Method Room Air Room Air BMI result Body Mass Index 30.7 Labs 05/23/22 00:06 05/25/22 08:10 Imaging Radiology Impressions: ITS Impressions Head CT 05/22/22 20:26 IMPRESSION: 1. No acute intracranial pathology. This critical result was discussed with Yandy Cruz at 8:39 PM on 05/22/2022 and it was ascertained that the content and urgency of the report was understood at the time of direct communication. Head/Neck CTA 05/22/22 21:04 IMPRESSION: Significantly motion degraded exam. 1. Within the limitations of this exam, there is no overtly demonstrated proximal arterial occlusion. 2. Potential loss of roper-white matter differentiation within the posterior aspect of the left occipital lobe. However, this is not as well delineated on postcontrast imaging. While this may represent an evolving infarct of the left occipital lobe, it is also possible that the appearance is artifactual in nature. 3. No evidence of acute intracranial hemorrhage. This critical result was discussed with Yandy rCuz NP at 21:41 on 05/22/2023 2 and it was ascertained that the content and urgency of the report was understood at the time of direct communication. Abdomen/Pelvis CT 05/22/22 21:25 IMPRESSION: 1. No acute traumatic finding is seen. There is no parenchymal organ laceration or hemorrhage. No free intraperitoneal air or fluid is seen. There is no acute osseous finding. 2. There is hepatic steatosis. Fleischner guidelines were followed. Cervical Spine CT 05/22/22 21:41 IMPRESSION: No traumatic subluxation or acute cervical spine fracture. Chest CT 05/22/22 21:43 IMPRESSION: 1. No acute traumatic injury identified in the chest. 2. No pneumothorax, airspace consolidation or pleural effusion. 3. No acute fracture identified. 4. Small 3 mm left lower lobe pulmonary nodule, likely intrapulmonary lymph node. Per Fleischner Society guidelines, if the patient is high risk for pulmonary malignancy consider optional low-dose chest CT follow-up in 12 months. If low risk, no follow-up required. Medications Medications Current Medications Acetaminophen (Acetaminophen 325 Mg Tablet) 975 mg PO Q8H PRN PRN Reason: Pain, Mild (Pain Scale 1-3) Last Admin: 06/03/22 12:49 Dose: 975 mg Al Hydroxide/Mg Hydroxide (Magnesium Hydrox/Alum Hydrox 30 Ml Oral.Susp) 30 ml PO Q6H PRN PRN Reason: Heartburn/Nausea Amitriptyline HCl (Amitriptyline Hcl 25 Mg Tablet) 25 mg PO BEDTIME [facility] Last Admin: 06/05/22 19:46 Dose: 25 mg Amphetamine/Dextroamphetamine (Amphetamine Mixed Salts 20 Mg Tablet) 20 mg PO DAILY [facility] Last Admin: 06/06/22 09:02 Dose: 20 mg Buprenorphine/Naloxone (Buprenorphine/Naloxone 8/2 Mg Film) 1 film SUBLINGUAL DAILY [facility] Last Admin: 06/06/22 09:02 Dose: 1 film Buprenorphine/Naloxone (Buprenorphine/Naloxone 4/1 Mg Film) 1 film SUBLINGUAL BID@1300,1700 [facility] Last Admin: 06/05/22 15:54 Dose: 1 film Bupropion HCl (Bupropion Hcl Xl 150 Mg Tab.Er.24h) 450 mg PO DAILY [facility] Last Admin: 06/06/22 09:02 Dose: 450 mg Chlorpromazine HCl (Chlorpromazine Hcl 25 Mg Tablet) 25 mg PO Q6H PRN PRN Reason: Anxiety Last Admin: 06/05/22 19:47 Dose: 25 mg Cyclobenzaprine HCl (Cyclobenzaprine Hcl 10 Mg Tablet) 10 mg PO TID PRN PRN Reason: muscle aches Last Admin: 06/06/22 09:42 Dose: 10 mg Ferrous Sulfate (Ferrous Sulfate 324 Mg Tablet.Dr) 325 mg PO BEDTIME [facility] Last Admin: 06/05/22 19:48 Dose: 325 mg Folic Acid (Folic Acid 1 Mg Tablet) 1 mg PO DAILY [facility] Last Admin: 06/06/22 09:03 Dose: 1 mg Gabapentin (Gabapentin 400 Mg Capsule) 800 mg PO TID [facility] Last Admin: 06/06/22 09:03 Dose: 800 mg Hydroxyzine HCl (Hydroxyzine Hcl 25 Mg Tablet) 25 mg PO Q6H PRN PRN Reason: Anxiety Last Admin: 06/03/22 20:13 Dose: 25 mg Lidocaine (Lidocaine 4 % Patch Adh..Patch) 1 patch TRANSDERMA DAILY PRN PRN Reason: Pain Last Admin: 06/03/22 13:32 Dose: 1 patch Lorazepam (Lorazepam 1 Mg Tablet) 1 mg PO BID [facility] Last Admin: 06/06/22 09:02 Dose: 1 mg Magnesium Hydroxide (Milk Of Magnesia 30 Ml Oral.Susp) 30 ml PO DAILY PRN PRN Reason: Constipation Metronidazole (Metronidazole 0.75 % Gel 45 Gm Tube) 1 appl TOPICAL BID [facility] Last Admin: 06/06/22 09:13 Dose: Not Given Multivitamins/Vitamin C (Multivitamin Tablet) 1 tab PO BEDTIME [facility] Last Admin: 06/05/22 19:47 Dose: 1 tab Nicotine (Nicotine 21 Mg Patch.Td24) 21 mg TRANSDERMA DAILY [facility] Last Admin: 06/06/22 09:05 Dose: 21 mg Nicotine Polacrilex (Nicotine Polacrilex 2 Mg Gum) 2 mg BUCCAL Q2H PRN PRN Reason: Nicotine Cravings Last Admin: 05/24/22 10:52 Dose: 2 mg Polyethylene Glycol (Polyethylene Glycol 3350 17 Gm Powd.Pack) 17 gm PO DAILY PRN PRN Reason: Constipation Prazosin HCl (Prazosin Hcl 1 Mg Capsule) 4 mg PO BEDTIME [facility]; Protocol Last Admin: 06/05/22 19:48 Dose: 4 mg Pyridoxine HCl (Pyridoxine Hcl (Vitamin B6) 50 Mg Tablet) 50 mg PO DAILY [facility] Last Admin: 06/06/22 09:02 Dose: 50 mg Senna/Docusate Sodium (Sennosides/Docusate Sodium Tablet) 2 tab PO BEDTIME PRN PRN Reason: Constipation Last Admin: 05/24/22 16:53 Dose: 2 tab Thiamine HCl (Thiamine Hcl 100 Mg Tablet) 50 mg PO DAILY [facility] Last Admin: 06/06/22 09:02 Dose: 50 mg Trazodone HCl (Trazodone Hcl 50 Mg Tablet) 150 mg PO BEDTIME [facility] Last Admin: 06/05/22 19:46 Dose: 150 mg Zolpidem Tartrate (Zolpidem Tartrate 5 Mg Tablet) 5 mg PO BEDTIME PRN PRN Reason: Insomnia Last Admin: 06/05/22 19:46 Dose: 5 mg Allergies Allergies Allergy/AdvReac Type Severity Reaction Status Date / Time ketamine AdvReac Severe Agitated Verified 05/25/22 18:45 phenobarbital AdvReac Vomiting Verified 11/12/21 15:48 Assessment & Plan Assessment & Plan (1) Chronic post-traumatic stress disorder (PTSD): Status: Acute Code(s): F43.12 - Post-traumatic stress disorder, chronic (2) Alcohol use disorder: Status: Chronic (3) Opioid use disorder: Status: Chronic Code(s): F11.99 - Opioid use, unspecified with unspecified opioid-induced disorder Plan 51 yo male, to [facility] ER via ambulance 05/22/22, reporting SI with plan to jump from a bridge. Reported holidays as main precipitant. Recent [facility] stay with Makenna Gomez with reported administrative discharge. Reported ongoing alcohol intake with falls after drinking all day. He awoke with EMT's caring for him in community, this frightened him, he became violently agitated and was given Ketamine a few doses . He feels it sent him into an LSD type state and I think it made it all worse. Hospital course: Today, pt able to reflect upon issues prior to admission. States the drinking was out of control. I was on my way to [facility] to prevent a suicide attempt. I kn ow that I am not going to survive one of these times-it just keeps getting worse. Reviewed effects of the Ketamine. I felt so scared, it was like this medication took all of my fears and turned them loose on me. I was not able to sleep or be sedate or relax, it was an LSD trip. Pt has edema bilateral hands, wrists from restraints and injuries to both calves as well. R Hip still needs THR however, I need some long sober time before they will do it (cancelled by his team in Apr 2022). Pt asks for help with detox, re-establishing med regime and I will go to CSS anywhere in the state and then TSS. Identifies LT as a skilled nursing dual dx placement and specifically mentions [facility] as an interest for his treatment. 05/26/22 Addiction consult 05/27/22 Change Suboxone to TID- 12/25; 08/24 and 08/24 Increase Tylenol prn for hip pain mgt 05/28/2022 continue current regimen 05/29/22 patient doing better, SI resolving and down to just baseline chronic intermittent level that is able to be ignored. Hip is hurting him considerably and he is hoping to get treatment to soon as possible. Wants to go to a program. Remains engaged in treatment, attending groups and participant. C ontinues to demonstrate good behavioral and impulse control and is appropriate with peers and staff. Patient's agitation likely worsened with ketamine which seems to have caused a dissociated of episode. Bag Inspector agrees that patient is at very high risk for relapse and decompensation unless he goes to a stable environment. Discussed with team who agrees and is looking for placement at a [facility] 05/30 continues to stabilize; still with depression and anxiety but coping; remains engaged in tx, groups 05/31 continue current treatment plan; working on getting patient into program 06/01 dealing with past trauma; making connections between trauma and relapse and need for consistent therapy 06/02 doing better 06/04 continue current treatment plan 06/06 patient reports doing better; sleeping well, mood improved; continues to be engaged in treatment, attending and participating in groups. Of note, patient does not have any acute medical needs and is medically stable. He does not need 24 hour nursing care. Detox is complete. Any reference to 24 hour nursing care is regarding first 2 days of admission, while he was in the emergency room being treated for consequences of alcohol abuse and withdrawal, all which have fully resolved). Plan: Ambien 5 mg HS Adderall 20 mg daily Started Flexeril prn Continue on Ativan; will taper NDC Ferrous Sulfate daily Increased back to gabapentin 800 mg t.i.d. (down from 800 mg normal dose) Social Work coping with [facility] placement Patient educated on: diagnosis Informed Consent: understands Reason for contiued inpatient stay Substantial Risk for: stable for discharge Time Spent With Patient Time: Total time managing care of this patient today ____ minutes.
[2022-06-06] MEDS: Acetaminophen 325 MG TABLET 975 MG PO (13:24)
[2022-06-06] MEDS: Buprenorphine/Naloxone 4/1 mg FILM 1 FILM SUBLINGUAL ×2 (13:24→16:09)
[2022-06-06] MEDS: Multivitamin TABLET 1 TAB PO (20:13)
[2022-06-06] MEDS: Zolpidem Tartrate 5 MG TABLET PO (20:13)
[2022-06-06] MEDS: Prazosin HCL 1 MG CAPSULE 4 MG PO (20:13)
[2022-06-06] MEDS: hydrOXYzine HCL 25 MG TABLET PO (20:13)
[2022-06-06] MEDS: Ferrous Sulfate 324 MG TABLET.DR 325 MG PO (20:14)
[2022-06-06] MEDS: Amitriptyline HCl 25 MG TABLET PO (20:14)
[2022-06-06] MEDS: traZODone HCL 50 MG TABLET 150 MG PO (20:14)
[2022-06-06 20:20] VITALS: BP 136/64; PULSE 70
[2022-06-07] MEDS: Amphetamine Mixed Salts 20 MG TABLET PO (08:46)
[2022-06-07] MEDS: Buprenorphine/Naloxone 8/2 mg FILM 1 FILM SUBLINGUAL (08:46)
[2022-06-07] MEDS: Thiamine HCL 100 MG TABLET 50 MG PO (08:46)
[2022-06-07] MEDS: LORazepam 1 MG TABLET PO ×2 (08:46→19:20)
[2022-06-07] MEDS: Gabapentin 400 MG CAPSULE 800 MG PO ×3 (08:46→19:20)
[2022-06-07] MEDS: buPROPion HCl XL 150 MG TAB.ER.24H 450 MG PO (08:46)
[2022-06-07] MEDS: Pyridoxine HCl (Vitamin B6) 50 MG TABLET PO (08:46)
[2022-06-07] MEDS: Folic Acid 1 MG TABLET PO (08:47)
[2022-06-07] MEDS: Nicotine 21 MG PATCH.TD24 TRANSDERMA (08:47)
[2022-06-07 09:46] VITALS: BP 130/66; PULSE 73; RESP 18; TEMP 35.7; O2SAT 98
--- NOTE | 2022-06-07 10:25 | HO.PSYCHPN ---
Subjective Subjective Date of Service: 06/07/22 Reason For Visit: depression/SI Interim History: Patient reports he is doing well. Discussed aftercare plans and patient is open to program in [place]. Denies any complaints and has no requests. Attending groups and engaged in treatment. No SI Mental Status Exam Mental Status Exam Narrative: Pt is alert and oriented; behavior is cooperative, engaged and calm; patient is not in distress; dressed in casual attire, bald head, adequate hygiene; mood is described as good and affect congruent; eye contact appropriate; Speech is regular volume, rate and prosody; no psychomotor retardation present; thought process is organized and goal directed; Thought content is on tx, recovery; otherwise pertinent to relevant topics and without any delusional content, paranoid ideations or grandiosity; No SI; no HI. There is no evidence of perceptual disturbance. Patients insight and judgment are fair. Diagnostics Vital Signs (24Hr): Vital Signs - 24 hr 06/06/22 20:20 06/07/22 09:46 Temperature 96.3 F L Pulse Rate 70 73 Respiratory Rate 18 Blood Pressure 136/64 130/66 Pulse Oximetry 98 Oxygen Delivery Method Room Air BMI result Body Mass Index 30.7 Labs 05/23/22 00:06 05/25/22 08:10 Imaging Radiology Impressions: ITS Impressions Head CT 05/22/22 20:26 IMPRESSION: 1. No acute intracranial pathology. This critical result was discussed with Yandy Cruz at 8:39 PM on 05/22/2022 and it was ascertained that the content and urgency of the report was understood at the time of direct communication. Head/Neck CTA 05/22/22 21:04 IMPRESSION: Significantly motion degraded exam. 1. Within the limitations of this exam, there is no overtly demonstrated proximal arterial occlusion. 2. Potential loss of roper-white matter differentiation within the posterior aspect of the left occipital lobe. However, this is not as well delineated on postcontrast imaging. While this may represent an evolving infarct of the left occipital lobe, it is also possible that the appearance is artifactual in nature. 3. No evidence of acute intracranial hemorrhage. This critical result was discussed with Yandy Cruz NP at 21:41 on 05/22/2023 2 and it was ascertained that the content and urgency of the report was understood at the time of direct communication. Abdomen/Pelvis CT 05/22/22 21:25 IMPRESSION: 1. No acute traumatic finding is seen. There is no parenchymal organ laceration or hemorrhage. No free intraperitoneal air or fluid is seen. There is no acute osseous finding. 2. There is hepatic steatosis. Fleischner guidelines were followed. Cervical Spine CT 05/22/22 21:41 IMPRESSION: No traumatic subluxation or acute cervical spine fracture. Chest CT 05/22/22 21:43 IMPRESSION: 1. No acute traumatic injury identified in the chest. 2. No pneumothorax, airspace consolidation or pleural effusion. 3. No acute fracture identified. 4. Small 3 mm left lower lobe pulmonary nodule, likely intrapulmonary lymph node. Per Fleischner Society guidelines, if the patient is high risk for pulmonary malignancy consider optional low-dose chest CT follow-up in 12 months. If low risk, no follow-up required. Medications Medications Current Medications Acetaminophen (Acetaminophen 325 Mg Tablet) 975 mg PO Q8H PRN PRN Reason: Pain, Mild (Pain Scale 1-3) Last Admin: 06/06/22 13:24 Dose: 975 mg Al Hydroxide/Mg Hydroxide (Magnesium Hydrox/Alum Hydrox 30 Ml Oral.Susp) 30 ml PO Q6H PRN PRN Reason: Heartburn/Nausea Amitriptyline HCl (Amitriptyline Hcl 25 Mg Tablet) 25 mg PO BEDTIME [facility] Last Admin: 06/06/22 20:14 Dose: 25 mg Amphetamine/Dextroamphetamine (Amphetamine Mixed Salts 20 Mg Tablet) 20 mg PO DAILY [facility] Last Admin: 06/07/22 08:46 Dose: 20 mg Buprenorphine/Naloxone (Buprenorphine/Naloxone 8/2 Mg Film) 1 film SUBLINGUAL DAILY [facility] Last Admin: 06/07/22 08:46 Dose: 1 film Buprenorphine/Naloxone (Buprenorphine/Naloxone 4/1 Mg Film) 1 film SUBLINGUAL BID@1300,1700 [facility] Last Admin: 06/06/22 16:09 Dose: 1 film Bupropion HCl (Bupropion Hcl Xl 150 Mg Tab.Er.24h) 450 mg PO DAILY [facility] Last Admin: 06/07/22 08:46 Dose: 450 mg Chlorpromazine HCl (Chlorpromazine Hcl 25 Mg Tablet) 25 mg PO Q6H PRN PRN Reason: Anxiety Last Admin: 06/05/22 19:47 Dose: 25 mg Cyclobenzaprine HCl (Cyclobenzaprine Hcl 10 Mg Tablet) 10 mg PO TID PRN PRN Reason: muscle aches Last Admin: 06/06/22 20:13 Dose: 10 mg Ferrous Sulfate (Ferrous Sulfate 324 Mg Tablet.Dr) 325 mg PO BEDTIME [facility] Last Admin: 06/06/22 20:14 Dose: 325 mg Folic Acid (Folic Acid 1 Mg Tablet) 1 mg PO DAILY [facility] Last Admin: 06/07/22 08:47 Dose: 1 mg Gabapentin (Gabapentin 400 Mg Capsule) 800 mg PO TID [facility] Last Admin: 06/07/22 08:46 Dose: 800 mg Hydroxyzine HCl (Hydroxyzine Hcl 25 Mg Tablet) 25 mg PO Q6H PRN PRN Reason: Anxiety Last Admin: 06/06/22 20:13 Dose: 25 mg Lidocaine (Lidocaine 4 % Patch Adh..Patch) 1 patch TRANSDERMA DAILY PRN PRN Reason: Pain Last Admin: 06/03/22 13:32 Dose: 1 patch Lorazepam (Lorazepam 1 Mg Tablet) 1 mg PO BID [facility] Last Admin: 06/07/22 08:46 Dose: 1 mg Magnesium Hydroxide (Milk Of Magnesia 30 Ml Oral.Susp) 30 ml PO DAILY PRN PRN Reason: Constipation Metronidazole (Metronidazole 0.75 % Gel 45 Gm Tube) 1 appl TOPICAL BID [facility] Last Admin: 06/07/22 08:48 Dose: Not Given Multivitamins/Vitamin C (Multivitamin Tablet) 1 tab PO BEDTIME [facility] Last Admin: 06/06/22 20:13 Dose: 1 tab Nicotine (Nicotine 21 Mg Patch.Td24) 21 mg TRANSDERMA DAILY [facility] Last Admin: 06/07/22 08:47 Dose: 21 mg Nicotine Polacrilex (Nicotine Polacrilex 2 Mg Gum) 2 mg BUCCAL Q2H PRN PRN Reason: Nicotine Cravings Last Admin: 05/24/22 10:52 Dose: 2 mg Polyethylene Glycol (Polyethylene Glycol 3350 17 Gm Powd.Pack) 17 gm PO DAILY PRN PRN Reason: Constipation Prazosin HCl (Prazosin Hcl 1 Mg Capsule) 4 mg PO BEDTIME [facility]; Protocol Last Admin: 06/06/22 20:13 Dose: 4 mg Pyridoxine HCl (Pyridoxine Hcl (Vitamin B6) 50 Mg Tablet) 50 mg PO DAILY [facility] Last Admin: 06/07/22 08:46 Dose: 50 mg Senna/Docusate Sodium (Sennosides/Docusate Sodium Tablet) 2 tab PO BEDTIME PRN PRN Reason: Constipation Last Admin: 05/24/22 16:53 Dose: 2 tab Thiamine HCl (Thiamine Hcl 100 Mg Tablet) 50 mg PO DAILY [facility] Last Admin: 06/07/22 08:46 Dose: 50 mg Trazodone HCl (Trazodone Hcl 50 Mg Tablet) 150 mg PO BEDTIME [facility] Last Admin: 06/06/22 20:14 Dose: 150 mg Zolpidem Tartrate (Zolpidem Tartrate 5 Mg Tablet) 5 mg PO BEDTIME PRN PRN Reason: Insomnia Last Admin: 06/06/22 20:13 Dose: 5 mg Allergies Allergies Allergy/AdvReac Type Severity Reaction Status Date / Time ketamine AdvReac Severe Agitated Verified 05/25/22 18:45 phenobarbital AdvReac Vomiting Verified 11/12/21 15:48 Assessment & Plan Assessment & Plan (1) Chronic post-traumatic stress disorder (PTSD): Status: Acute Code(s): F43.12 - Post-traumatic stress disorder, chronic (2) Alcohol use disorder: Status: Chronic (3) Opioid use disorder: Status: Chronic Code(s): F11.99 - Opioid use, unspecified with unspecified opioid-induced disorder Plan 51 yo male, to [facility] via ambulance 05/22/22, reporting SI with plan to jump from a bridge. Reported holidays as main precipitant. Recent [facility] stay with Makenna Gomez with reported administrative discharge. Reported ongoing alcohol intake with falls after drinking all day. He awoke with EMT's caring for him in community, this frightened him, he became violently agitated and was given Ketamine a few doses . He feels it sent him into an LSD type state and I think it made it all worse. Hospital course: Today, pt able to reflect upon issues prior to admission. States the drinking was out of control. I was on my way to [facility] to prevent a suicide attempt. I know that I am not going to survive one of these times-it just keeps getting worse. Reviewed effects of the Ketamine. I felt so scared, it was like this medication took all of my fears and turned them loose on me. I was not able to sleep or be sedate or relax, it was an LSD trip. Pt has edema bilateral hands, wrists from restraints and injuries to both calves as well. R Hip still needs THR however, I need some long sober time before they will do it (cancelled by his team in Apr 2022). Pt asks for help with detox, re-establishing med regime and I will go to CSS anywhere in the state and then TSS. Identifies [facility] as a oysterman dual dx placement and specifically mentions [facility] as an interest for his treatment. 05/26/22 Addiction consult 05/27/22 Change Suboxone to TID- 12/25; 08/24 and 08/24 Increase Tylenol prn for hip pain mgt 05/28/2022 continue current regimen 05/29/22 patient doing better, SI resolving and down to just baseline chronic intermittent level that is able to be ignored. Hip is hurting him considerably and he is hoping to get treatment to soon as possible. Wants to go to a program. Remains engaged in treatment, attending groups and participant. Continues to demonstrate good behavioral and impulse control and is appropriate with peers and staff. Patient's agitation likely worsened with ketamine which seems to have caused a dissociated of episode. Social Science Manager agrees that patient is at very high risk for relapse and decompensation unless he goes to a stable environment. Discussed with team who agrees and is looking for placement at a [facility] 05/30 continues to stabilize; still with depression and anxiety but coping; remains engaged in tx, groups 05/31 continue current treatment plan; working on getting patient into program 06/01 dealing with past trauma; making connections between trauma and relapse and need for consistent therapy 06/02 doing better 06/04 continue current treatment plan 06/06 patient reports doing better; sleeping well, mood improved; continues to be engaged in treatment, attending and participating in groups. 06/07 continued current treatment plan Of note, patient does not have any acute medical needs and is medically stable. He does not need 24 hour nursing care. Detox is complete. Any reference to 24 hour nursing care is regarding first 2 days of admission, while he was in the emergency room being treated for consequences of alcohol abuse and withdrawal, all which have fully resolved). Plan: Ambien 5 mg HS Adderall 20 mg daily Started Flexeril prn Continue on Ativan; will taper NDC Ferrous Sulfate daily Increased back to gabapentin 800 mg t.i.d. (down from 800 mg normal dose) Social Work coping with [facility] placement Patient educated on: therapeutic strategies Informed Consent: understands Reason for contiued inpatient stay Substantial Risk for: stable for discharge Time Spent With Patient Time: Total time managing care of this patient today ____ minutes.
[2022-06-07] MEDS: Cyclobenzaprine HCl 10 MG TABLET PO ×3 (10:27→19:20)
[2022-06-07] MEDS: Buprenorphine/Naloxone 4/1 mg FILM 1 FILM SUBLINGUAL ×2 (13:25→16:26)
[2022-06-07 19:19] VITALS: BP 119/69; PULSE 74
[2022-06-07] MEDS: Amitriptyline HCl 25 MG TABLET PO (19:20)
[2022-06-07] MEDS: Ferrous Sulfate 324 MG TABLET.DR 325 MG PO (19:20)
[2022-06-07] MEDS: Zolpidem Tartrate 5 MG TABLET PO (19:20)
[2022-06-07] MEDS: hydrOXYzine HCL 25 MG TABLET PO (19:20)
[2022-06-07] MEDS: traZODone HCL 50 MG TABLET 150 MG PO (19:20)
[2022-06-07] MEDS: Prazosin HCL 1 MG CAPSULE 4 MG PO (19:20)
[2022-06-07] MEDS: Multivitamin TABLET 1 TAB PO (19:21)
[2022-06-08] MEDS: Buprenorphine/Naloxone 8/2 mg FILM 1 FILM SUBLINGUAL (09:15)
[2022-06-08] MEDS: Gabapentin 400 MG CAPSULE 800 MG PO ×3 (09:15→20:44)
[2022-06-08] MEDS: buPROPion HCl XL 150 MG TAB.ER.24H 450 MG PO (09:15)
[2022-06-08] MEDS: Pyridoxine HCl (Vitamin B6) 50 MG TABLET PO (09:15)
[2022-06-08] MEDS: Thiamine HCL 100 MG TABLET 50 MG PO (09:15)
[2022-06-08] MEDS: Folic Acid 1 MG TABLET PO (09:15)
[2022-06-08] MEDS: LORazepam 1 MG TABLET PO ×2 (09:15→20:44)
[2022-06-08] MEDS: Amphetamine Mixed Salts 20 MG TABLET PO (09:15)
[2022-06-08] MEDS: Nicotine 21 MG PATCH.TD24 TRANSDERMA (09:17)
[2022-06-08 09:26] VITALS: BP 113/61; PULSE 79; RESP 18; TEMP 36.1; O2SAT 97
--- NOTE | 2022-06-08 10:35 | P.PNPSI_ITS ---
Subjective Subjective Date of Service: 06/08/22 Reason For Visit: depression/SI Interim History: Patient says he is doing well, sleeping well and in a good mood. Hopeful about aftercare plans in getting into a program. No complaints and no requests. Mental Status Exam Mental Status Exam Narrative: Pt is alert and oriented; behavior is cooperative, engaged and calm; patient is not in distress; dressed in casual attire, bald head, adequate hygiene; mood is described as good and affect congruent; eye contact appropriate; Speech is regular volume, rate and prosody; no psychomotor retardation present; thought process is organized and goal directed; Thought content is on tx, recovery; otherwise pertinent to relevant topics and without any delusional content, paranoid ideations or grandiosity; No SI; no HI. There is no evidence of perceptual disturbance. Patients insight and judgment are fair. Diagnostics Vital Signs (24Hr): Vital Signs - 24 hr 06/07/22 19:19 06/08/22 09:26 Temperature 96.9 F Pulse Rate 74 79 Respiratory Rate 18 Blood Pressure 119/69 113/61 Pulse Oximetry 97 Oxygen Delivery Method Room Air BMI result Body Mass Index 30.7 Labs 05/23/22 00:06 05/25/22 08:10 Imaging Radiology Impressions: ITS Impressions Head CT 05/22/22 20:26 IMPRESSION: 1. No acute intracranial pathology. This critical result was discussed with Yandy Cruz at 8:39 PM on 05/22/2022 and it was ascertained that the content and urgency of the report was understood at the time of direct communication. Head/Neck CTA 05/22/22 21:04 IMPRESSION: Significantly motion degraded exam. 1. Within the limitations of this exam, there is no overtly demonstrated proximal arterial occlusion. 2. Potential loss of roper-white matter differentiation within the posterior aspect of the left occipital lobe. However, this is not as well delineated on postcontrast imaging. While this may represent an evolving infarct of the left occipital lobe, it is also possible that the appearance is artifactual in nature. 3. No evidence of acute intracranial hemorrhage. This critical result was discussed with Yandy Cruz NP at 21:41 on 05/22/2023 2 and it was ascertained that the content and urgency of the report was understood at the time of direct communication. Abdomen/Pelvis CT 05/22/22 21:25 IMPRESSION: 1. No acute traumatic finding is seen. There is no parenchymal organ laceration or hemorrhage. No free intraperitoneal air or fluid is seen. There is no acute osseous finding. 2. There is hepatic steatosis. Fleischner guidelines were followed. Cervical Spine CT 05/22/22 21:41 IMPRESSION: No traumatic subluxation or acute cervical spine fracture. Chest CT 05/22/22 21:43 IMPRESSION: 1. No acute traumatic injury identified in the chest. 2. No pneumothorax, airspace consolidation or pleural effusion. 3. No acute fracture identified. 4. Small 3 mm left lower lobe pulmonary nodule, likely intrapulmonary lymph node. Per Fleischner Society guidelines, if the patient is high risk for pulmonary malignancy consider optional low-dose chest CT follow-up in 12 months. If low risk, no follow-up required. Medications Medications Current Medications Acetaminophen (Acetaminophen 325 Mg Tablet) 975 mg PO Q8H PRN PRN Reason: Pain, Mild (Pain Scale 1-3) Last Admin: 06/06/22 13:24 Dose: 975 mg Al Hydroxide/Mg Hydroxide (Magnesium Hydrox/Alum Hydrox 30 Ml Oral.Susp) 30 ml PO Q6H PRN PRN Reason: Heartburn/Nausea Amitriptyline HCl (Amitriptyline Hcl 25 Mg Tablet) 25 mg PO BEDTIME [facility] Last Admin: 06/07/22 19:20 Dose: 25 mg Amphetamine/Dextroamphetamine (Amphetamine Mixed Salts 20 Mg Tablet) 20 mg PO DAILY [facility] Last Admin: 06/08/22 09:15 Dose: 20 mg Buprenorphine/Naloxone (Buprenorphine/Naloxone 8/2 Mg Film) 1 film SUBLINGUAL DAILY [facility] Last Admin: 06/08/22 09:15 Dose: 1 film Buprenorphine/Naloxone (Buprenorphine/Naloxone 4/1 Mg Film) 1 film SUBLINGUAL BID@1300,1700 [facility] Last Admin: 06/07/22 16:26 Dose: 1 film Bupropion HCl (Bupropion Hcl Xl 150 Mg Tab.Er.24h) 450 mg PO DAILY [facility] Last Admin: 06/08/22 09:15 Dose: 450 mg Chlorpromazine HCl (Chlorpromazine Hcl 25 Mg Tablet) 25 mg PO Q6H PRN PRN Reason: Anxiety Last Admin: 06/05/22 19:47 Dose: 25 mg Cyclobenzaprine HCl (Cyclobenzaprine Hcl 10 Mg Tablet) 10 mg PO TID PRN PRN Reason: muscle aches Last Admin: 06/07/22 19:20 Dose: 10 mg Ferrous Sulfate (Ferrous Sulfate 324 Mg Tablet.Dr) 325 mg PO BEDTIME [facility] Last Admin: 06/07/22 19:20 Dose: 324 mg Folic Acid (Folic Acid 1 Mg Tablet) 1 mg PO DAILY [facility] Last Admin: 06/08/22 09:15 Dose: 1 mg Gabapentin (Gabapentin 400 Mg Capsule) 800 mg PO TID [facility] Last Admin: 06/08/22 09:15 Dose: 800 mg Hydroxyzine HCl (Hydroxyzine Hcl 25 Mg Tablet) 25 mg PO Q6H PRN PRN Reason: Anxiety Last Admin: 06/07/22 19:20 Dose: 25 mg Lidocaine (Lidocaine 4 % Patch Adh..Patch) 1 patch TRANSDERMA DAILY PRN PRN Reason: Pain Last Admin: 06/03/22 13:32 Dose: 1 patch Lorazepam (Lorazepam 1 Mg Tablet) 1 mg PO BID [facility] Last Admin: 06/08/22 09:15 Dose: 1 mg Magnesium Hydroxide (Milk Of Magnesia 30 Ml Oral.Susp) 30 ml PO DAILY PRN PRN Reason: Constipation Metronidazole (Metronidazole 0.75 % Gel 45 Gm Tube) 1 appl TOPICAL BID [facility] Last Admin: 06/08/22 09:45 Dose: Not Given Multivitamins/Vitamin C (Multivitamin Tablet) 1 tab PO BEDTIME [facility] Last Admin: 06/07/22 19:21 Dose: 1 tab Nicotine (Nicotine 21 Mg Patch.Td24) 21 mg TRANSDERMA DAILY [facility] Last Admin: 06/08/22 09:17 Dose: 21 mg Nicotine Polacrilex (Nicotine Polacrilex 2 Mg Gum) 2 mg BUCCAL Q2H PRN PRN Reason: Nicotine Cravings Last Admin: 05/24/22 10:52 Dose: 2 mg Polyethylene Glycol (Polyethylene Glycol 3350 17 Gm Powd.Pack) 17 gm PO DAILY PRN PRN Reason: Constipation Prazosin HCl (Prazosin Hcl 1 Mg Capsule) 4 mg PO BEDTIME [facility]; Protocol Last Admin: 06/07/22 19:20 Dose: 4 mg Pyridoxine HCl (Pyridoxine Hcl (Vitamin B6) 50 Mg Tablet) 50 mg PO DAILY [facility] Last Admin: 06/08/22 09:15 Dose: 50 mg Senna/Docusate Sodium (Sennosides/Docusate Sodium Tablet) 2 tab PO BEDTIME PRN PRN Reason: Constipation Last Admin: 05/24/22 16:53 Dose: 2 tab Thiamine HCl (Thiamine Hcl 100 Mg Tablet) 50 mg PO DAILY [facility] Last Admin: 06/08/22 09:15 Dose: 50 mg Trazodone HCl (Trazodone Hcl 50 Mg Tablet) 150 mg PO BEDTIME [facility] Last Admin: 06/07/22 19:20 Dose: 150 mg Zolpidem Tartrate (Zolpidem Tartrate 5 Mg Tablet) 5 mg PO BEDTIME PRN PRN Reason: Insomnia Last Admin: 06/07/22 19:20 Dose: 5 mg Allergies Allergies Allergy/AdvReac Type Severity Reaction Status Date / Time ketamine AdvReac Severe Agitated Verified 05/25/22 18:45 phenobarbital AdvReac Vomiting Verified 11/12/21 15:48 Assessment & Plan Assessment & Plan (1) Chronic post-traumatic stress disorder (PTSD): Status: Acute Code(s): F43.12 - Post-traumatic stress disorder, chronic (2) Alcohol use disorder: Status: Chronic (3) Opioid use disorder: Status: Chronic Code(s): F11.99 - Opioid use, unspecified with unspecified opioid-induced disorder Plan 51 yo male, to [facility] via ambulance 05/22/22, reporting SI with plan to jump from a bridge. Reported holidays as main precipitant. Recent [facility] stay with Makenna Gomez with reported administrative discharge. Reported ongoing alcohol intake with falls after drinking all day. He awoke with EMT's caring for him in community, this frightened him, he became violently agitated and was given Ketamine a few doses . He feels it sent him into an LSD type state and I think it made it all worse. Hospital course: Today, pt able to reflect upon issues prior to admission. States the drinking was out of control. I was on my way to [facility] to prevent a suicide attempt. I know that I am not going to survive one of these times-it just keeps getting worse. Reviewed effects of the Ketamine. I felt so scared, it was like this m edication took all of my fears and turned them loose on me. I was not able to sleep or be sedate or relax, it was an LSD trip. Pt has edema bilateral hands, wrists from restraints and injuries to both calves as well. R Hip still needs THR however, I need some long sober time before they will do it (cancelled by his team in Apr 2022). Pt asks for help with detox, re-establishing med regime and I will go to CSS anywhere in the state and then TSS. Identifies [facility] as a tool straightener dual dx placement and specifically mentions [facility] as an interest for his treatment. 05/26/22 Addiction consult 05/27/22 Change Suboxone to TID- 12/25; 08/24 and 08/24 Increase Tylenol prn for hip pain mgt 05/28/2022 continue current regimen 05/29/22 patient doing better, SI resolving and down to just baseline chronic intermittent level that is able to be ignored. Hip is hurting him considerably and he is hoping to get treatment to soon as possible. Wants to go to a program. Remains engaged in treatment, attending groups and participant. Continues to demonstrate good behavioral and impulse control and is appropriate with peers and staff. Patient's agitation likely worsened with ketamine which seems to have caused a dissociated of episode. Hospice Home Health Aide agrees that patient is at very high risk for relapse and decompensation unless he goes to a stable environment. Discussed with team who agrees and is looking for placement at a [facility] 05/30 continues to stabilize; still with depression and anxiety but coping; remains engaged in tx, groups 05/31 continue current treatment plan; working on getting patient into program 06/01 dealing with past trauma; making connections between trauma and relapse and need for consistent therapy 06/02 doing better 06/04 continue current treatment plan 06/06 patient reports doing better; sleeping well, mood improved; continues to be engaged in treatment, attending and participating in groups. 06/07 continued current treatment plan 06/08 continue current treatment plan Discussed case with nursing; met with patient; reviewed vitals and WNL; reviewed primary team providers' progress notes Of note, patient does not have any acute medical needs and is medically stable. He does not need 24 hour nursing care. Detox is complete. Any reference to 24 hour nursing care is regarding first 2 days of admission, while he was in the emergency room being treated for consequences of alcohol abuse and withdrawal, all which have fully resolved). Plan: Ambien 5 mg HS Adderall 20 mg daily Started Flexeril prn Continue on Ativan; will taper NDC Ferrous Sulfate daily Increased back to gabapentin 800 mg t.i.d. (down from 800 mg normal dose) Social Work coping with [facility] placement Reason for contiued inpatient stay Substantial Risk for: stable for discharge Time Spent With Patient Time: Total time managing care of this patient today ____ minutes.
[2022-06-08] MEDS: Buprenorphine/Naloxone 4/1 mg FILM 1 FILM SUBLINGUAL ×2 (13:05→16:30)
[2022-06-08] MEDS: Cyclobenzaprine HCl 10 MG TABLET PO ×2 (13:05→20:45)
[2022-06-08 18:00] VITALS: BP 106/68; PULSE 74; RESP 18; TEMP 36.3; O2SAT 96
[2022-06-08] MEDS: chlorproMAZINE HCl 25 MG TABLET PO (19:34)
[2022-06-08] MEDS: Amitriptyline HCl 25 MG TABLET PO (20:44)
[2022-06-08] MEDS: Zolpidem Tartrate 5 MG TABLET PO (20:45)
[2022-06-08] MEDS: Ferrous Sulfate 324 MG TABLET.DR 325 MG PO (20:46)
[2022-06-08] MEDS: traZODone HCL 50 MG TABLET 150 MG PO (20:46)
[2022-06-08] MEDS: Prazosin HCL 1 MG CAPSULE 4 MG PO (20:46)
[2022-06-08] MEDS: hydrOXYzine HCL 25 MG TABLET PO (20:46)
[2022-06-08] MEDS: Multivitamin TABLET 1 TAB PO (20:46)
[2022-06-09 07:45] VITALS: BP 120/69; PULSE 76; RESP 16; TEMP 36.8; O2SAT 98
[2022-06-09] MEDS: Pyridoxine HCl (Vitamin B6) 50 MG TABLET PO (08:51)
[2022-06-09] MEDS: LORazepam 1 MG TABLET PO ×2 (08:51→20:21)
[2022-06-09] MEDS: Amphetamine Mixed Salts 20 MG TABLET PO (08:51)
[2022-06-09] MEDS: Buprenorphine/Naloxone 8/2 mg FILM 1 FILM SUBLINGUAL (08:51)
[2022-06-09] MEDS: Gabapentin 400 MG CAPSULE 800 MG PO ×3 (08:51→20:22)
[2022-06-09] MEDS: Thiamine HCL 100 MG TABLET 50 MG PO (08:52)
[2022-06-09] MEDS: buPROPion HCl XL 150 MG TAB.ER.24H 450 MG PO (08:52)
[2022-06-09] MEDS: Folic Acid 1 MG TABLET PO (08:52)
--- NOTE | 2022-06-09 09:36 | P.PNPSI_ITS ---
Subjective Subjective Date of Service: 06/09/22 Reason For Visit: depression/SI Interim History: Patient says he is okay... Good and remains sleeping well, future oriented, attending groups. Asks if some of his belongings can be retrieved, his while it and phone and patient agrees to discuss with social work on Friday Mental Status Exam Mental Status Exam Narrative: Pt is alert and oriented; behavior is cooperative, engaged and calm; patient is not in distress; dressed in casual attire, bald head, adequate hygiene; mood is described as good and affect congruent; eye contact appropriate; Speech is regular volume, rate and prosody; no psychomotor retardation present; thought process is organized and goal directed; Thought content is on tx, recovery; otherwise pertinent to relevant topics and without any delusional content, paranoid ideations or grandiosity; No SI; no HI. There is no evidence of perceptual disturbance. Patients insight and judgment are fair. Diagnostics Vital Signs (24Hr): Vital Signs - 24 hr 06/08/22 18:00 Temperature 97.3 F Pulse Rate 74 Respiratory Rate 18 Blood Pressure 106/68 Pulse Oximetry 96 Oxygen Delivery Method Room Air BMI result Body Mass Index 30.7 Labs 05/23/22 00:06 05/25/22 08:10 Imaging Radiology Impressions: ITS Impressions Head CT 05/22/22 20:26 IMPRESSION: 1. No acute intracranial pathology. This critical result was discussed with Yandy Cruz at 8:39 PM on 05/22/2022 and it was ascertained that the content and urgency of the report was understood at the time of direct communication. Head/Neck CTA 05/22/22 21:04 IMPRESSION: Significantly motion degraded exam. 1. Within the limitations of this exam, there is no overtly demonstrated proximal arterial occlusion. 2. Potential loss of roper-white matter differentiation within the posterior aspect of the left occipital lobe. However, this is not as well delineated on postcontrast imaging. While this may represent an evolving infarct of the left occipital lobe, it is also possible that the appearance is artifactual in nature. 3. No evidence of acute intracranial hemorrhage. This critical result was discussed with Yandy Cruz NP at 21:41 on 05/22/2023 2 and it was ascertained that the content and urgency of the report was understood at the time of direct communication. Abdomen/Pelvis CT 05/22/22 21:25 IMPRESSION: 1. No acute traumatic finding is seen. There is no parenchymal organ laceration or hemorrhage. No free intraperitoneal air or fluid is seen. There is no acute osseous finding. 2. There is hepatic steatosis. Fleischner guidelines were followed. Cervical Spine CT 05/22/22 21:41 IMPRESSION: No traumatic subluxation or acute cervical spine fracture. Chest CT 05/22/22 21:43 IMPRESSION: 1. No acute traumatic injury identified in the chest. 2. No pneumothorax, airspace consolidation or pleural effusion. 3. No acute fracture identified. 4. Small 3 mm left lower lobe pulmonary nodule, likely intrapulmonary lymph node. Per Fleischner Society guidelines, if the patient is high risk for pulmonary malignancy consider optional low-dose chest CT follow-up in 12 months. If low risk, no follow-up required. Medications Medications Current Medications Acetaminophen (Acetaminophen 325 Mg Tablet) 975 mg PO Q8H PRN PRN Reason: Pain, Mild (Pain Scale 1-3) Last Admin: 06/06/22 13:24 Dose: 975 mg Al Hydroxide/Mg Hydroxide (Magnesium Hydrox/Alum Hydrox 30 Ml Oral.Susp) 30 ml PO Q6H PRN PRN Reason: Heartburn/Nausea Amitriptyline HCl (Amitriptyline Hcl 25 Mg Tablet) 25 mg PO BEDTIME [facility] Last Admin: 06/08/22 20:44 Dose: 25 mg Amphetamine/Dextroamphetamine (Amphetamine Mixed Salts 20 Mg Tablet) 20 mg PO DAILY [facility] Last Admin: 06/09/22 08:51 Dose: 20 mg Buprenorphine/Naloxone (Buprenorphine/Naloxone 8/2 Mg Film) 1 film SUBLINGUAL DAILY [facility] Last Admin: 06/09/22 08:51 Dose: 1 film Buprenorphine/Naloxone (Buprenorphine/Naloxone 4/1 Mg Film) 1 film SUBLINGUAL BID@1300,1700 [facility] Last Admin: 06/08/22 16:30 Dose: 1 film Bupropion HCl (Bupropion Hcl Xl 150 Mg Tab.Er.24h) 450 mg PO DAILY [facility] Last Admin: 06/09/22 08:52 Dose: 450 mg Chlorpromazine HCl (Chlorpromazine Hcl 25 Mg Tablet) 25 mg PO Q6H PRN PRN Reason: Anxiety Last Admin: 06/08/22 19:34 Dose: 25 mg Cyclobenzaprine HCl (Cyclobenzaprine Hcl 10 Mg Tablet) 10 mg PO TID PRN PRN Reason: muscle aches Last Admin: 06/08/22 20:45 Dose: 10 mg Ferrous Sulfate (Ferrous Sulfate 324 Mg Tablet.Dr) 325 mg PO BEDTIME [facility] Last Admin: 06/08/22 20:46 Dose: 324 mg Folic Acid (Folic Acid 1 Mg Tablet) 1 mg PO DAILY [facility] Last Admin: 06/09/22 08:52 Dose: 1 mg Gabapentin (Gabapentin 400 Mg Capsule) 800 mg PO TID [facility] Last Admin: 06/09/22 08:51 Dose: 800 mg Hydroxyzine HCl (Hydroxyzine Hcl 25 Mg Tablet) 25 mg PO Q6H PRN PRN Reason: Anxiety Last Admin: 06/08/22 20:46 Dose: 25 mg Lidocaine (Lidocaine 4 % Patch Adh..Patch) 1 patch TRANSDERMA DAILY PRN PRN Reason: Pain Last Admin: 06/03/22 13:32 Dose: 1 patch Lorazepam (Lorazepam 1 Mg Tablet) 1 mg PO BID [facility] Last Admin: 06/09/22 08:51 Dose: 1 mg Magnesium Hydroxide (Milk Of Magnesia 30 Ml Oral.Susp) 30 ml PO DAILY PRN PRN Reason: Constipation Metronidazole (Metronidazole 0.75 % Gel 45 Gm Tube) 1 appl TOPICAL BID [facility] Last Admin: 06/08/22 20:55 Dose: Not Given Multivitamins/Vitamin C (Multivitamin Tablet) 1 tab PO BEDTIME [facility] Last Admin: 06/08/22 20:46 Dose: 1 tab Nicotine (Nicotine 21 Mg Patch.Td24) 21 mg TRANSDERMA DAILY [facility] Last Admin: 06/08/22 09:17 Dose: 21 mg Nicotine Polacrilex (Nicotine Polacrilex 2 Mg Gum) 2 mg BUCCAL Q2H PRN PRN Reason: Nicotine Cravings Last Admin: 05/24/22 10:52 Dose: 2 mg Polyethylene Glycol (Polyethylene Glycol 3350 17 Gm Powd.Pack) 17 gm PO DAILY PRN PRN Reason: Constipation Prazosin HCl (Prazosin Hcl 1 Mg Capsule) 4 mg PO BEDTIME [facility]; Protocol Last Admin: 06/08/22 20:46 Dose: 4 mg Pyridoxine HCl (Pyridoxine Hcl (Vitamin B6) 50 Mg Tablet) 50 mg PO DAILY [facility] Last Admin: 06/09/22 08:51 Dose: 50 mg Senna/Docusate Sodium (Sennosides/Docusate Sodium Tablet) 2 tab PO BEDTIME PRN PRN Reason: Constipation Last Admin: 05/24/22 16:53 Dose: 2 tab Thiamine HCl (Thiamine Hcl 100 Mg Tablet) 50 mg PO DAILY [facility] Last Admin: 06/09/22 08:52 Dose: 50 mg Trazodone HCl (Trazodone Hcl 50 Mg Tablet) 150 mg PO BEDTIME [facility] Last Admin: 06/08/22 20:46 Dose: 150 mg Zolpidem Tartrate (Zolpidem Tartrate 5 Mg Tablet) 5 mg PO BEDTIME PRN PRN Reason: Insomnia Last Admin: 06/08/22 20:45 Dose: 5 mg Allergies Allergies Allergy/AdvReac Type Severity Reaction Status Date / Time ketamine AdvReac Severe Agitated Verified 05/25/22 18:45 phenobarbital AdvReac Vomiting Verified 11/12/21 15:48 Assessment & Plan Assessment & Plan (1) Chronic post-traumatic stress disorder (PTSD): Status: Acute Code(s): F43.12 - Post-traumatic stress disorder, chronic (2) Alcohol use disorder: Status: Chronic (3) Opioid use disorder: Status: Chronic Code(s): F11.99 - Opioid use, unspecified with unspecified opioid-induced disorder Plan 51 yo male, to [facility] [place] [facility] via ambulance 05/22/22, reporting SI with plan to jump from a bridge. Reported holidays as main precipitant. Recent [facility] stay with Makenna Gomez with reported administrative discharge. Reported ongoing alcohol intake with falls after drinking all day. He awoke with EMT's caring for him in community, this frightened him, he became violently agitated and was given Ketamine a few doses . He feels it sent him into an LSD type state and I think it made it all worse. Hospital course: Today, pt able to reflect upon issues prior to admission. States the drinking was out of control. I was on my way to [facility] to prevent a suicide attempt. I know that I am not going to survive one of these times-it just keeps getting worse. Reviewed effects of the Ketamine. I felt so scared, it was like this medication took all of my fears and turned them loose on me. I was not able to sleep or be sedate or relax, it was an LSD trip. Pt has edema bilateral hands, wrists from restraints and injuries to both calves as well. R Hip still needs THR however, I need some long sober time before they will do it (cancelled by his team in Apr 2022). Pt asks for help with detox, re-establishing med regime and I will go to CSS anywhere in the state and then TSS. Identifies [facility] as a intermediate dual dx placement and specifically mentions [facility] as an interest for his treatment. 05/26/22 Addiction consult 05/27/22 Change Suboxone to TID- 12/25; 08/24 and 08/24 Increase Tylenol prn for hip pain mgt 05/28/2022 continue current regimen 05/29/22 patient doing better, SI resolving and down to just baseline chronic intermittent level that is able to be ignored. Hip is hurting him considerably and he is hoping to get treatment to soon as possible. Wants to go to a program. Remains engaged in treatment, attending groups and participant. Continues to demonstrate good behavioral and impulse control and is appropriate with peers and staff. Patient's agitation likely worsened with ketamine which seems to have caused a dissociated of episode. Inclusion Special Educator agrees that patient is at very high risk for relapse and decompensation unless he goes to a stable environment. Discussed with team who agrees and is looking for placement at a [facility] 05/30 continues to stabilize; still with depression and anxiety but coping; remains engaged in tx, groups 05/31 continue current treatment plan; working on getting patient into program 06/01 dealing with past trauma; making connections between trauma and relapse and need for consistent therapy 06/02 doing better 06/04 continue current treatment plan 06/06 patient reports doing better; sleeping well, mood improved; continues to be engaged in treatment, attending and participating in groups. 06/07 continued current treatment plan 06/08 continue current treatment plan Discussed case with nursing; met with patient; reviewed vitals and WNL; reviewed primary team providers' progress notes 06/09 Discussed case with nursing; met with patient; reviewed vitals and WNL; continue current treatment plan Of note, patient does not have any acute medical needs and is medically stable. He does not need 24 hour nursing care. Detox is complete. Any reference to 24 hour nursing care is regarding first 2 days of admission, while he was in the emergency room being treated for consequences of alcohol abuse and withdrawal, all which have fully resolved). Plan: Ambien 5 mg HS Adderall 20 mg daily Flexeril prn Continue on Ativan; will taper NDC Ferrous Sulfate daily Increased back to gabapentin 800 mg t.i.d. (down from 800 mg normal dose) Social Work coping with [facility] placement Patient educated on: diagnosis Informed Consent: understands Reason for contiued inpatient stay Substantial Risk for: stable for discharge Time Spent With Patient Time: Total time managing care of this patient today ____ minutes.
[2022-06-09] MEDS: Nicotine 21 MG PATCH.TD24 TRANSDERMA (10:13)
[2022-06-09] MEDS: Cyclobenzaprine HCl 10 MG TABLET PO ×3 (10:15→20:22)
[2022-06-09] MEDS: chlorproMAZINE HCl 25 MG TABLET PO (10:15)
[2022-06-09] MEDS: Buprenorphine/Naloxone 4/1 mg FILM 1 FILM SUBLINGUAL ×2 (13:24→18:28)
[2022-06-09 18:00] VITALS: BP 135/95; PULSE 75; TEMP 36.4; O2SAT 99
[2022-06-09] MEDS: traZODone HCL 50 MG TABLET 150 MG PO (20:20)
[2022-06-09] MEDS: Amitriptyline HCl 25 MG TABLET PO (20:21)
[2022-06-09] MEDS: hydrOXYzine HCL 25 MG TABLET PO (20:22)
[2022-06-09] MEDS: Prazosin HCL 1 MG CAPSULE 4 MG PO (20:23)
[2022-06-09] MEDS: Ferrous Sulfate 324 MG TABLET.DR 325 MG PO (20:24)
[2022-06-09] MEDS: Multivitamin TABLET 1 TAB PO (20:24)
[2022-06-09] MEDS: Zolpidem Tartrate 5 MG TABLET PO (20:34)
[2022-06-10 06:00] VITALS: BP 105/58; PULSE 71; RESP 14; TEMP 36.1; O2SAT 96
[2022-06-10] MEDS: Buprenorphine/Naloxone 8/2 mg FILM 1 FILM SUBLINGUAL (08:05)
[2022-06-10] MEDS: Nicotine 21 MG PATCH.TD24 TRANSDERMA (08:05)
[2022-06-10] MEDS: Amphetamine Mixed Salts 20 MG TABLET PO (08:06)
[2022-06-10] MEDS: LORazepam 1 MG TABLET PO ×2 (08:06→20:56)
[2022-06-10] MEDS: Pyridoxine HCl (Vitamin B6) 50 MG TABLET PO (08:06)
[2022-06-10] MEDS: buPROPion HCl XL 150 MG TAB.ER.24H 450 MG PO (08:06)
[2022-06-10] MEDS: Gabapentin 400 MG CAPSULE 800 MG PO ×3 (08:06→19:59)
[2022-06-10] MEDS: Thiamine HCL 100 MG TABLET 50 MG PO (08:06)
[2022-06-10] MEDS: Folic Acid 1 MG TABLET PO (08:06)
[2022-06-10] MEDS: Cyclobenzaprine HCl 10 MG TABLET PO ×3 (08:40→19:58)
[2022-06-10] MEDS: polyethylene glycoL 3350 17 GM POWD.PACK PO (11:09)
[2022-06-10] MEDS: Buprenorphine/Naloxone 4/1 mg FILM 1 FILM SUBLINGUAL ×2 (12:59→16:52)
[2022-06-10] MEDS: hydrOXYzine HCL 25 MG TABLET PO ×2 (12:59→19:58)
[2022-06-10 19:55] VITALS: BP 130/62; PULSE 81; RESP 14; TEMP 36.3
[2022-06-10] MEDS: Multivitamin TABLET 1 TAB PO (19:58)
[2022-06-10] MEDS: Ferrous Sulfate 324 MG TABLET.DR 325 MG PO (19:58)
[2022-06-10] MEDS: Zolpidem Tartrate 5 MG TABLET PO (19:58)
[2022-06-10] MEDS: Amitriptyline HCl 25 MG TABLET PO (19:59)
[2022-06-10] MEDS: traZODone HCL 50 MG TABLET 150 MG PO (19:59)
[2022-06-10] MEDS: Prazosin HCL 1 MG CAPSULE 4 MG PO (19:59)
--- NOTE | 2022-06-10 22:01 | HO.PSYCHPN ---
Subjective Subjective Date of Service: 06/10/22 Reason For Visit: depression/SI Interim History: feels good; ready to discharge; asks for suboxone to be changed to 8/2mg TID to help w/ pain. Mental Status Exam Mental Status Exam Narrative: Pt is alert and oriented; behavior is cooperative, engaged and calm; patient is not in distress; dressed in casual attire, bald head, adequate hygiene; mood is described as good and affect congruent; eye contact appropriate; Speech is regular volume, rate and prosody; no psychomotor retardation present; thought process is organized and goal directed; Thought content is on tx, recovery; otherwise pertinent to relevant topics and without any delusional content, paranoid ideations or grandiosity; No SI; no HI. There is no evidence of perceptual disturbance. Patients insight and judgment are fair. Diagnostics Vital Signs (24Hr): Vital Signs - 24 hr 06/10/22 06:00 06/10/22 19:55 Temperature 97 F 97.3 F Pulse Rate 71 81 Respiratory Rate 14 14 Blood Pressure 105/58 L 130/62 Pulse Oximetry 96 Oxygen Delivery Method Room Air BMI result Body Mass Index 30.7 Labs 05/23/22 00:06 05/25/22 08:10 Imaging Radiology Impressions: ITS Impressions Head CT 05/22/22 20:26 IMPRESSION: 1. No acute intracranial pathology. This critical result was discussed with Yandy Cruz at 8:39 PM on 05/22/2022 and it was ascertained that the content and urgency of the report was understood at the time of direct communication. Head/Neck CTA 05/22/22 21:04 IMPRESSION: Significantly motion degraded exam. 1. Within the limitations of this exam, there is no overtly demonstrated proximal arterial occlusion. 2. Potential loss of roper-white matter differentiation within the posterior aspect of the left occipital lobe. However, this is not as well delineated on postcontrast imaging. While this may represent an evolving infarct of the left occipital lobe, it is also possible that the appearance is artifactual in nature. 3. No evidence of acute intracranial hemorrhage. This critical result was discussed with Yandy Cruz NP at 21:41 on 05/22/2023 2 and it was ascertained that the content and urgency of the report was understood at the time of direct communication. Abdomen/Pelvis CT 05/22/22 21:25 IMPRESSION: 1. No acute traumatic finding is seen. There is no parenchymal organ laceration or hemorrhage. No free intraperitoneal air or fluid is seen. There is no acute osseous finding. 2. There is hepatic steatosis. Fleischner guidelines were followed. Cervical Spine CT 05/22/22 21:41 IMPRESSION: No traumatic subluxation or acute cervical spine fracture. Chest CT 05/22/22 21:43 IMPRESSION: 1. No acute traumatic injury identified in the chest. 2. No pneumothorax, airspace consolidation or pleural effusion. 3. No acute fracture identified. 4. Small 3 mm left lower lobe pulmonary nodule, likely intrapulmonary lymph node. Per Fleischner Society guidelines, if the patient is high risk for pulmonary malignancy consider optional low-dose chest CT follow-up in 12 months. If low risk, no follow-up required. Medications Medications Current Medications Acetaminophen (Acetaminophen 325 Mg Tablet) 975 mg PO Q8H PRN PRN Reason: Pain, Mild (Pain Scale 1-3) Last Admin: 06/06/22 13:24 Dose: 975 mg Al Hydroxide/Mg Hydroxide (Magnesium Hydrox/Alum Hydrox 30 Ml Oral.Susp) 30 ml PO Q6H PRN PRN Reason: Heartburn/Nausea Amitriptyline HCl (Amitriptyline Hcl 25 Mg Tablet) 25 mg PO BEDTIME [facility] Last Admin: 06/10/22 19:59 Dose: 25 mg Amphetamine/Dextroamphetamine (Amphetamine Mixed Salts 20 Mg Tablet) 20 mg PO DAILY [facility] Last Admin: 06/10/22 08:06 Dose: 20 mg Buprenorphine/Naloxone (Buprenorphine/Naloxone 8/2 Mg Film) 1 film SUBLINGUAL DAILY [facility] Last Admin: 06/10/22 08:05 Dose: 1 film Buprenorphine/Naloxone (Buprenorphine/Naloxone 4/1 Mg Film) 1 film SUBLINGUAL BID@1300,1700 [facility] Last Admin: 06/10/22 16:52 Dose: 1 film Bupropion HCl (Bupropion Hcl Xl 150 Mg Tab.Er.24h) 450 mg PO DAILY [facility] Last Admin: 06/10/22 08:06 Dose: 450 mg Chlorpromazine HCl (Chlorpromazine Hcl 25 Mg Tablet) 25 mg PO Q6H PRN PRN Reason: Anxiety Last Admin: 06/09/22 10:15 Dose: 25 mg Cyclobenzaprine HCl (Cyclobenzaprine Hcl 10 Mg Tablet) 10 mg PO TID PRN PRN Reason: muscle aches Last Admin: 06/10/22 19:58 Dose: 10 mg Ferrous Sulfate (Ferrous Sulfate 324 Mg Tablet.Dr) 325 mg PO BEDTIME [facility] Last Admin: 06/10/22 19:58 Dose: 324 mg Folic Acid (Folic Acid 1 Mg Tablet) 1 mg PO DAILY [facility] Last Admin: 06/10/22 08:06 Dose: 1 mg Gabapentin (Gabapentin 400 Mg Capsule) 800 mg PO TID [facility] Last Admin: 06/10/22 19:59 Dose: 800 mg Hydroxyzine HCl (Hydroxyzine Hcl 25 Mg Tablet) 25 mg PO Q6H PRN PRN Reason: Anxiety Last Admin: 06/10/22 19:58 Dose: 25 mg Lidocaine (Lidocaine 4 % Patch Adh..Patch) 1 patch TRANSDERMA DAILY PRN PRN Reason: Pain Last Admin: 06/03/22 13:32 Dose: 1 patch Lorazepam (Lorazepam 1 Mg Tablet) 1 mg PO BID [facility] Last Admin: 06/10/22 20:56 Dose: 1 mg Magnesium Hydroxide (Milk Of Magnesia 30 Ml Oral.Susp) 30 ml PO DAILY PRN PRN Reason: Constipation Metronidazole (Metronidazole 0.75 % Gel 45 Gm Tube) 1 appl TOPICAL BID [facility] Last Admin: 06/10/22 19:59 Dose: Not Given Multivitamins/Vitamin C (Multivitamin Tablet) 1 tab PO BEDTIME [facility] Last Admin: 06/10/22 19:58 Dose: 1 tab Nicotine (Nicotine 21 Mg Patch.Td24) 21 mg TRANSDERMA DAILY [facility] Last Admin: 06/10/22 08:05 Dose: 21 mg Nicotine Polacrilex (Nicotine Polacrilex 2 Mg Gum) 2 mg BUCCAL Q2H PRN PRN Reason: Nicotine Cravings Last Admin: 05/24/22 10:52 Dose: 2 mg Polyethylene Glycol (Polyethylene Glycol 3350 17 Gm Powd.Pack) 17 gm PO DAILY PRN PRN Reason: Constipation Last Admin: 06/10/22 11:09 Dose: 17 gm Prazosin HCl (Prazosin Hcl 1 Mg Capsule) 4 mg PO BEDTIME [facility]; Protocol Last Admin: 06/10/22 19:59 Dose: 4 mg Pyridoxine HCl (Pyridoxine Hcl (Vitamin B6) 50 Mg Tablet) 50 mg PO DAILY [facility] Last Admin: 06/10/22 08:06 Dose: 50 mg Senna/Docusate Sodium (Sennosides/Docusate Sodium Tablet) 2 tab PO BEDTIME PRN PRN Reason: Constipation Last Admin: 05/24/22 16:53 Dose: 2 tab Thiamine HCl (Thiamine Hcl 100 Mg Tablet) 50 mg PO DAILY [facility] Last Admin: 06/10/22 08:06 Dose: 50 mg Trazodone HCl (Trazodone Hcl 50 Mg Tablet) 150 mg PO BEDTIME [facility] Last Admin: 06/10/22 19:59 Dose: 150 mg Zolpidem Tartrate (Zolpidem Tartrate 5 Mg Tablet) 5 mg PO BEDTIME PRN PRN Reason: Insomnia Last Admin: 06/10/22 19:58 Dose: 5 mg Allergies Allergies Allergy/AdvReac Type Severity Reaction Status Date / Time ketamine AdvReac Severe Agitated Verified 05/25/22 18:45 phenobarbital AdvReac Vomiting Verified 11/12/21 15:48 Assessment & Plan Assessment & Plan (1) Chronic post-traumatic stress disorder (PTSD): Status: Acute Code(s): F43.12 - Post-traumatic stress disorder, chronic (2) Alcohol use disorder: Status: Chronic (3) Opioid use disorder: Status: Chronic Code(s): F11.99 - Opioid use, unspecified with unspecified opioid-induced disorder Plan 51 yo male, to [facility] via ambulance 05/22/22, reporting SI with plan to jump from a bridge. Reported holidays as main precipitant. Recent [facility] stay with Makenna Gomez with reported administrative discharge. Reported ongoing alcohol intake with falls after drinking all day. He awoke with EMT's caring for him in community, this frightened him, he became violently agitated and was given Ketamine a few doses . He feels it sent him into an LSD type state and I think it made it all worse. Hospital course: Today, pt able to reflect upon issues prior to admission. States the drinking was out of control. I was on my way to [facility] to prevent a suicide attempt. I know that I am not going to survive one of these times-it just keeps getting worse. Reviewed effects of the Ketamine. I felt so scared, it was like this medication took all of my fears and turned them loose on me. I was not able to sleep or be sedate or relax, it was an LSD trip. Pt has edema bilateral hands, wrists from restraints and injuries to both calves as well. R Hip still needs THR however, I need some long sober time before they will do it (cancelled by his team in Apr 2022). Pt asks for help with detox, re-establishing med regime and I will go to CSS anywhere in the state and then TSS. Identifies [facility] as a shelter dual dx placement and specifically mentions [facility] as an interest for his treatment. 05/26/22 Addiction consult 05/27/22 Change Suboxone to TID- 12/25; 08/24 and 08/24 Increase Tylenol prn for hip pain mgt 05/28/2022 continue current regimen 05/29/22 patient doing better, SI resolving and down to just baseline chronic intermittent level that is able to be ignored. Hip is hurting him considerably and he is hoping to get treatment to soon as possible. Wants to go to a program. Remains engaged in treatment, attending groups and participant. Continues to demonstrate good behavioral and impulse control and is appropriate with peers and staff. Patient's agitation likely worsened with ketamine which seems to have caused a dissociated of episode. Resource Protection Specialist agrees that patient is at very high risk for relapse and decompensation unless he goes to a stable environment. Discussed with team who agrees and is looking for placement at a [facility] 05/30 continues to stabilize; still with depression and anxiety but coping; remains engaged in tx, groups 05/31 continue current treatment plan; working on getting patient into program 06/01 dealing with past trauma; making connections between trauma and relapse and need for consistent therapy 06/02 doing better 06/04 continue current treatment plan 06/06 patient reports doing better; sleeping well, mood improved; continues to be engaged in treatment, attending and participating in groups. 06/07 continued current treatment plan 06/08 continue current treatment plan Discussed case with nursing; met with patient; reviewed vitals and WNL; reviewed primary team providers' progress notes 06/09 Discussed case with nursing; met with patient; reviewed vitals and WNL; continue current treatment plan 06/10 stable, good mood; ready to discharge. Pt going to program adn supportive environment. He is not in imminent risk for harm to self or others and request for discharge honored. Of note, patient does not have any acute medical needs and is medically stable. He does not need 24 hour nursing care. Detox is complete. Any reference to 24 hour nursing care is regarding first 2 days of admission, while he was in the emergency room being treated for consequences of alcohol abuse and withdrawal, all which have fully resolved). Plan: Ambien 5 mg HS Adderall 20 mg daily Flexeril prn Continue on Ativan; will taper NDC Ferrous Sulfate daily Increased back to gabapentin 800 mg t.i.d. (down from 800 mg normal dose) Social Work coping with [facility] placement Patient educated on: diagnosis, medication risk/benefits and substance abuse Informed Consent: understands Reason for contiued inpatient stay Substantial Risk for: stable for discharge Time Spent With Patient Time: Total time managing care of this patient today ____ minutes.
[2022-06-11 08:33] VITALS: BP 109/58; PULSE 71; RESP 16; TEMP 37.1; O2SAT 98
[2022-06-11] MEDS: Gabapentin 400 MG CAPSULE 800 MG PO (08:37)
[2022-06-11] MEDS: buPROPion HCl XL 150 MG TAB.ER.24H 450 MG PO (08:37)
[2022-06-11] MEDS: Nicotine 21 MG PATCH.TD24 TRANSDERMA (08:37)
[2022-06-11] MEDS: Buprenorphine/Naloxone 8/2 mg FILM 1 FILM SUBLINGUAL (08:37)
[2022-06-11] MEDS: Cyclobenzaprine HCl 10 MG TABLET PO (08:37)
[2022-06-11] MEDS: Folic Acid 1 MG TABLET PO (08:38)
[2022-06-11] MEDS: LORazepam 1 MG TABLET PO (08:38)
[2022-06-11] MEDS: Amphetamine Mixed Salts 20 MG TABLET PO (08:38)
[2022-06-11] MEDS: Pyridoxine HCl (Vitamin B6) 50 MG TABLET PO (08:38)
[2022-06-11] MEDS: Thiamine HCL 100 MG TABLET 50 MG PO (08:38)
[2022-06-11 09:31] LABS: COVID-19 Test Negative (Negative); IDNOW Serial# 9DB6401D
--- NOTE | 2022-06-11 09:59 | P.DS_ITS ---
DS: Providers Provider Date of Service: 06/11/22 Date of admission: 05/24/22 15:52 Date of discharge: 06/11/22 Primary care physician: Unknown Physician Attending physician on admission: Joycelyn Jones Consults: 05/26/22 17:52 Addiction Medicine Routine Consulting Provider: Addiction Covering Reason for consultation: suboxone Pt; s/p alcohol overdose, required Ketamine from EMT's Has provider been notified: No Attending physician on discharge: Alexander Rose DS: Diagnosis Discharge Diagnosis (1) Chronic post-traumatic stress disorder (PTSD): Status: Acute (2) Alcohol use disorder: Status: Chronic (3) Opioid use disorder: Status: Chronic DS: Medications Discharge Medications Home Medications: Previous Rx's Medication Instructions Recorded buprenorphine 8 mg-naloxone 2 mg 2 film sublingual DAILY 3 days #6 05/03/22 sublingual film (Suboxone) ea zolpidem 5 mg tablet 5 mg PO BEDTIME 7 days #7 tabs 05/03/22 amitriptyline 25 mg tablet 25 mg PO BEDTIME 30 days #30 tabs 06/10/22 bupropion HCl 450 mg 24 hr tablet, 450 mg PO DAILY 30 days #30 tabs 06/10/22 extended release chlorpromazine 25 mg tablet 25 mg PO Q6H PRN Anxiety 30 days 06/10/22 #60 tabs cyclobenzaprine 10 mg tablet 10 mg PO TID PRN muscle spasm 30 06/10/22 days #90 tabs dextroamphetamine-amphetamine 20 20 mg PO DAILY 30 days #30 tabs 06/10/22 mg tablet ferrous sulfate 324 mg (65 mg 325 mg PO BEDTIME 30 days #30 tabs 06/10/22 iron) tablet,delayed release gabapentin 800 mg tablet 800 mg PO TID 30 days #90 tabs 06/10/22 hydroxyzine HCl 25 mg tablet 25 mg PO Q6H PRN Anxiety 30 days 06/10/22 #90 tabs lidocaine 5 % topical patch 1 patch topical DAILY PRN Pain 30 06/10/22 (Lidoderm) days #30 ea metronidazole 0.75 % topical gel 1 appl topical BID 30 days #45 06/10/22 grams multivitamin (Daily-Tony tablet) 1 tab PO DAILY 30 days #30 tabs 06/10/22 naproxen 500 mg tablet 250 mg PO BID PRN Pain 30 days #30 01/16/23 tabs nicotine (polacrilex) 2 mg gum 2 mg buccal Q2H PRN Nicotine 06/10/22 Cravings 30 days #100 ea nicotine 21 mg/24 hr daily 21 mg transdermal DAILY 28 days 06/10/22 transdermal patch #28 ea polyethylene glycol 3350 17 gram 17 g PO DAILY PRN Constipation 30 06/10/22 oral powder packet days #30 ea prazosin 2 mg capsule 4 mg PO BEDTIME 30 days #60 caps 06/10/22 pyridoxine (vitamin B6) 50 mg 50 mg PO DAILY 30 days #30 tabs 06/10/22 tablet sennosides 8.6 mg-docusate sodium 2 tab PO BEDTIME PRN Constipation 06/10/22 50 mg tablet (Senna Plus) 30 days #60 tabs trazodone 50 mg tablet 150 mg PO BEDTIME 30 days #90 tabs 06/10/22 zolpidem 5 mg tablet 5 mg PO BEDTIME PRN Insomnia 30 06/10/22 days #30 tabs buprenorphine 8 mg-naloxone 2 mg 1 film sublingual TID 8 days #24 ea 06/11/22 sublingual film (Suboxone) lorazepam 1 mg tablet (Ativan) 1 mg PO DAILY to complete taper 5 06/11/22 days #5 tabs Mental Status Exam Mental Status Exam Narrative: Pt is alert and oriented; behavior is cooperative, engaged and calm; patient is not in distress; dressed in casual attire, bald head, adequate hygiene; mood is described as good and affect congruent; eye contact appropriate; Speech is regular volume, rate and prosody; no psychomotor retardation present; thought process is organized and goal directed; Thought content is on tx, recovery; otherwise pertinent to relevant topics and without any delusional content, paranoid ideations or grandiosity; No SI; no HI. There is no evidence of p erceptual disturbance. Patients insight and judgment are fair. Data Data Completed and Pending Completed studies during hospitalization [Text1]: 06/11/22 09:05 COVID-19 (LINK) Negative COVID-19 Clin Com See Note Imaging Diagnostic Imaging Impressions Head CT 05/22/22 20:26 IMPRESSION: 1. No acute intracranial pathology. This critical result was discussed with Yandy Cruz at 8:39 PM on 05/22/2022 and it was ascertained that the content and urgency of the report was understood at the time of direct communication. Head/Neck CTA 05/22/22 21:04 IMPRESSION: Significantly motion degraded exam. 1. Within the limitations of this exam, there is no overtly demonstrated proximal arterial occlusion. 2. Potential loss of roper-white matter differentiation within the posterior aspect of the left occipital lobe. However, this is not as well delineated on postcontrast imaging. While this may represent an evolving infarct of the left occipital lobe, it is also possible that the appearance is artifactual in nature. 3. No evidence of acute intracranial hemorrhage. This critical result was discussed with Yandy Cruz NP at 21:41 on 05/22/2023 2 and it was ascertained that the content and urgency of the report was understood at the time of direct communication. Abdomen/Pelvis CT 05/22/22 21:25 IMPRESSION: 1. No acute traumatic finding is seen. There is no parenchymal organ laceration or hemorrhage. No free intraperitoneal air or fluid is seen. There is no acute osseous finding. 2. There is hepatic steatosis. Fleischner guidelines were followed. Cervical Spine CT 05/22/22 21:41 IMPRESSION: No traumatic subluxation or acute cervical spine fracture. Chest CT 05/22/22 21:43 IMPRESSION: 1. No acute traumatic injury identified in the chest. 2. No pneumothorax, airspace consolidation or pleural effusion. 3. No acute fracture identified. 4. Small 3 mm left lower lobe pulmonary nodule, likely intrapulmonary lymph node. Per Fleischner Society guidelines, if the patient is high risk for pulmonary malignancy consider optional low-dose chest CT follow-up in 12 months. If low risk, no follow-up required. DS: Summary Hospital Course Hospital Course: HPI: 51 yo male, to [facility] ER via ambulance 05/22/22, reporting SI with plan to jump from a bridge. Reported holidays as main precipitant. Recent CSS stay with [facility] with reported administrative discharge. Reported ongoing alcohol intake with falls after drinking all day. He awoke with EMT's caring for him in community, this frightened him, he became violently agitated and was given Ketamine a few doses . He feels it sent him into an LSD type state and I think it made it all worse. Hospital course: Today, pt able to reflect upon issues prior to admission. States the drinking was out of control. I was on my way to [facility] to prevent a suicide attempt. I know that I am not going to survive one of these times-it just keeps getting worse. Reviewed effects of the Ketamine. I felt so scared, it was like this medication took all of my fears and turned them loose on me. I was not able to sleep or be sedate or relax, it was an LSD trip. Pt has edema bilateral hands, wrists from restraints and injuries to both calves as well. R Hip still needs THR however, I need some long sober time before they will do it (cancelled by his team in Apr 2022). Pt asks for help with detox, re-establishing med regime and I will go to [facility] anywhere in the state and then TSS. 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 as an interest for his treatment. 05/27/22 Change Suboxone to TID- 12/25; 08/24 and 08/24 ? Increase Tylenol prn for hip pain mgt 05/29/22 patient doing better, SI resolving and down to just baseline chronic intermittent level that is able to be ignored.? Hip is hurting him considerably and he is hoping to get treatment to soon as possible.? Wants to go to a program.? Remains engaged in treatment, attending groups and participant.? Continues to demonstrate good behavioral and impulse control and is appropriate with peers and staff.? Patient's agitation likely worsened with ketamine which seems to have caused a dissociated of episode.? 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 Discussed with team who agrees and is looking for placement at a CSS 05/30 continues to stabilize; still with depression and anxiety but coping; remains engaged in tx, groups 05/31 continue current treatment plan; working on getting patient into program 06/01 dealing with past trauma; making connections between trauma and relapse and need for consistent therapy 06/04 continue current treatment plan 06/06 patient reports doing better; sleeping well, mood improved; continues to be engaged in treatment, attending and participating in groups. 06/09 Discussed case with nursing; met with patient; reviewed vitals and WNL; continue current treatment plan 06/10 stable, good mood, no SI; eating and sleeping well; pt feels ready to discharge. Pt going to program and a supportive environment. He is not in imminent risk for harm to self or others and request for discharge honored. Time spent discussing smoking cessation with patient: 3 to 10 minutes Status at Discharge Functional status at discharge: independent ambulation Overall status at discharge: patient is back to baseline Time Spent with Patient Time attestation: Total time managing care of this patient today ____ minutes. Time spent: Less than 30 minutes Discharge Plan Discharge Anticipated Discharge Date/Time: 06/11/22 12:00 Patient Disposition: Penitentiary Discharge Diagnosis: MDD, recurrent, severe in full remission Referrals: Suboxone: [facility] [Other] - 06/18/22 2:15 pm (The [facility] is within the main hospital: Enter through the Main Entrance and take Elevators D or E to the 4th floor, take a right off the elevators and the office is down the wilkins on the right) Clinical Stabilization Services (CSS) Placement: [facility] [Other] - 06/11/22 12:30 pm [facility] Program: [facility] (Admissions) [Other] - 1 Week (Call once a week, on Mondays or Tuesdays, to check-in and continue to express interest in their program ) Therapy Intake: Juan Jose Kenny ([facility]) [Other] - 06/19/22 10:00 am (In person at the office ) Psychiatrist: Jolene Good ([facility]) [Other] - 07/08/22 2:20 pm (Telehealth-Dr. العراقي will call your phone at the time of the appointment ) Psychiatrist: Jolene Good ([facility]) [Other] - 07/08/22 12:00 pm (Telehealth-Dr. العراقي will call your phone at the time of the appointment) Discharge Medications: New ferrous sulfate 324 mg (65 mg iron) Tablet,Delayed Release (Dr/Ec) 325 mg PO BEDTIME 30 Days Qty: 30 0RF prazosin 2 mg capsule 4 mg PO BEDTIME 30 Days Qty: 60 0RF zolpidem 5 mg Tablet 5 mg PO BEDTIME PRN (Reason: Insomnia) 30 Days Qty: 30 0RF gabapentin 800 mg tablet 800 mg PO TID 30 Days Qty: 90 0RF chlorpromazine 25 mg Tablet 25 mg PO Q6H PRN (Reason: Anxiety) 30 Days Qty: 60 0RF dextroamphetamine-amphetamine 20 mg Tablet 20 mg PO DAILY 30 Days Qty: 30 0RF Rx Instructions: Partial Fill upon patient request. trazodone 50 mg Tablet 150 mg PO BEDTIME 30 Days Qty: 90 0RF amitriptyline 25 mg Tablet 25 mg PO BEDTIME 30 Days Qty: 30 0RF Continued multivitamin [Daily-Tony] Tablet 1 tab PO DAILY 30 Days Qty: 30 0RF cyclobenzaprine 10 mg Tablet 10 mg PO TID PRN (Reason: muscle spasm) 30 Days Qty: 90 0RF polyethylene glycol 3350 17 gram Powder In Packet 17 g PO DAILY PRN (Reason: Constipation) 30 Days Qty: 30 0RF sennosides-docusate sodium [Senna Plus] 8.6-50 mg tablet 2 tab PO BEDTIME PRN (Reason: Constipation) 30 Days Qty: 60 0RF lidocaine [Lidoderm] 5 % adhesive patch,medicated 1 patch topical DAILY PRN (Reason: Pain) 30 Days Qty: 30 0RF nicotine 21 mg/24 hr Patch 24 Hour 21 mg transdermal DAILY 28 Days Qty: 28 0RF Rx Instructions: remove at bedtime pyridoxine (vitamin B6) 50 mg Tablet 50 mg PO DAILY 30 Days Qty: 30 0RF hydroxyzine HCl 25 mg Tablet 25 mg PO Q6H PRN (Reason: Anxiety) 30 Days Qty: 90 0RF metronidazole 0.75 % Gel 1 appl topical BID 30 Days Qty: 45 0RF bupropion HCl 450 mg tablet extended release 24 hr 450 mg PO DAILY 30 Days Qty: 30 0RF Changed naproxen 500 mg Tablet 250 mg PO BID PRN (Reason: Pain) 30 Days Qty: 30 0RF Discontinued nicotine (polacrilex) 2 mg Gum 2 mg buccal Q2H PRN (Reason: Nicotine Cravings) 30 Days Qty: 100 0RF prazosin 1 mg Capsule 3 mg PO BEDTIME 30 Days Qty: 90 0RF Protocol: Hold for SBP< HOLD for SBP < : 90 amitriptyline 25 mg Tablet 25 mg PO BEDTIME 30 Days Qty: 30 0RF trazodone 50 mg Tablet 50 mg PO BEDTIME PRN (Reason: Insomnia) 30 Days Qty: 30 0RF lorazepam 0.5 mg tablet 0.5 mg PO BID PRN (Reason: anxiety) 7 Days Qty: 14 3RF gabapentin 800 mg tablet 800 mg PO QID 7 Days Qty: 28 3RF folic acid 1 mg Tablet 1 mg PO DAILY 30 Days Qty: 30 0RF Vyvanse 20 mg capsule 20 mg PO QAM 30 Days Qty: 30 0RF thiamine mononitrate (vit B1) 100 mg Tablet 50 mg PO DAILY 30 Days Qty: 15 0RF No Action buprenorphine-naloxone [Suboxone] 8-2 mg film 1 film sublingual TID Qty: 42 0RF Discharge Orders: Discharge Order (Routine); Ordered 06/11/22 Ordered By: Alexander Rose Diet: Regular diet Activity on Discharge: As tolerated Stand Alone Forms: Patient Portal Discharge page, Community Support Care Plan Goals: Maintain mood and safe behaviors Take medications as prescribed Continue to pursue sobriety Practice coping skills Continue with outpatient providers and reach out to them as needed Health Concerns: Mood stability and behaviors Sobriety Chronic Right Hip pain Plan of Treatment: Follow up with your PCP, psychiatric provider and other outpatient providers regarding above concerns Take medications as prescribed Assessment: Risk assessment at time of discharge:? Patient was interviewed prior to discharge and found to be fully oriented and without any SI or HI. Patient has insight and demonstrates good judgment in terms of wanting to pursue treatment. Patient is not in imminent risk of harm to self or others and has a safety plan that includes presenting to the closest ER or calling 911 if feeling unsafe.? Patient has been observed closely by nursing and unit staff throughout admission; patient has not engaged in any behaviors that suggest dangerousness to self or others and has demonstrated appropriate behaviors and impulse control Discharge Date/Time: 06/11/22 12:00
== END 2022-06-11 12:00 | disposition home or self-care (01) | DRG 755 ==
LOC: HO.ED 05-24 12:39 → HO.PM5 05-24 15:59
PROVIDERS: Clinical Nurse Specialist Psychiatric/Mental Health, Adult; Emergency Medicine; Physician Assistant; Admitting Provider Psychiatry & Neurology Psychiatry; Emergency Provider Emergency Medicine; Visit Provider Psychiatry & Neurology Psychiatry
DX: F43.12 Post-traumatic stress disorder, chronic (principal); M62.82 Rhabdomyolysis; R45.851 Suicidal ideations; R94.31 Abnormal electrocardiogram [ECG] [EKG]; K76.0 Fatty (change of) liver, not elsewhere classified; F11.10 Opioid abuse, uncomplicated; F17.210 Nicotine dependence, cigarettes, uncomplicated; Z71.6 Tobacco abuse counseling; Z20.822 Contact with and (suspected) exposure to COVID-19; Z88.8 Allergy status to other drugs, medicaments and biological substances; Z79.899 Other long term (current) drug therapy
CPT/HCPCS: 0241U; 36415; 70450; 70496; 70498; 71260; 72125; 74177; 80048; 80053; 80143; 80179; 80307; 81003; 82077; 82550; 82947; 84484; 85025; 85610; 87635; 93005; 99285; J1885; J2060; J3475; J3486

== ENCOUNTER → 2022-06-19 09:07 | Outpatient (BNVA) | payer MEDICAID, SELFPAY | PROVIDERS: PCP Nurse Practitioner Family; Visit Provider Nurse Practitioner Psychiatric/Mental Health | DX: F11.20 Opioid dependence, uncomplicated (principal); F10.20 Alcohol dependence, uncomplicated | CPT/HCPCS: 80305; 99212 ==

== ENCOUNTER → 2022-06-26 11:05 | Outpatient (BNVA) | payer MEDICAID, SELFPAY | PROVIDERS: PCP Nurse Practitioner Family; Visit Provider Nurse Practitioner Psychiatric/Mental Health | DX: Z51.81 Encounter for therapeutic drug level monitoring (principal); F11.20 Opioid dependence, uncomplicated | CPT/HCPCS: 80305; 99212 ==

== ENCOUNTER → 2022-07-03 11:19 | Outpatient (BNVA) | payer MEDICAID, SELFPAY | PROVIDERS: PCP Nurse Practitioner Family; Visit Provider Nurse Practitioner Psychiatric/Mental Health | DX: Z51.81 Encounter for therapeutic drug level monitoring (principal); F11.20 Opioid dependence, uncomplicated | CPT/HCPCS: 99212 ==

== ENCOUNTER → 2022-07-17 10:41 | Outpatient (BNVA) | payer MEDICAID, SELFPAY | PROVIDERS: PCP Nurse Practitioner Family; Visit Provider Nurse Practitioner Psychiatric/Mental Health | DX: Z51.81 Encounter for therapeutic drug level monitoring (principal); F11.20 Opioid dependence, uncomplicated | CPT/HCPCS: 80305; 99212 ==

== ENCOUNTER → 2022-07-31 09:51 | Outpatient (BNVA) | payer MEDICAID, SELFPAY | PROVIDERS: PCP Nurse Practitioner Family; Visit Provider Nurse Practitioner Psychiatric/Mental Health | DX: Z51.81 Encounter for therapeutic drug level monitoring (principal); F11.20 Opioid dependence, uncomplicated | CPT/HCPCS: 99212 ==

== ENCOUNTER → 2022-08-21 10:16 | Outpatient (BNVA) | payer MEDICAID, SELFPAY | PROVIDERS: PCP Nurse Practitioner Family; Visit Provider Nurse Practitioner Psychiatric/Mental Health | DX: Z51.81 Encounter for therapeutic drug level monitoring (principal); F11.20 Opioid dependence, uncomplicated; F10.90 Alcohol use, unspecified, uncomplicated | CPT/HCPCS: 80305; 99212 ==

== ENCOUNTER → 2022-09-11 10:35 | Outpatient (BNVA) | payer MEDICAID, SELFPAY | PROVIDERS: PCP Nurse Practitioner Family; Visit Provider Nurse Practitioner Psychiatric/Mental Health | DX: F14.20 Cocaine dependence, uncomplicated (principal); F15.24 Other stimulant dependence with stimulant-induced mood disorder; F10.90 Alcohol use, unspecified, uncomplicated; F17.210 Nicotine dependence, cigarettes, uncomplicated; Z51.81 Encounter for therapeutic drug level monitoring; Z59.01 Sheltered homelessness; Z79.899 Other long term (current) drug therapy | CPT/HCPCS: 80305; 99212 ==

== ENCOUNTER → 2022-09-24 10:50 | Outpatient (BNVA) | payer MEDICAID, SELFPAY | PROVIDERS: PCP Nurse Practitioner; Visit Provider Nurse Practitioner Psychiatric/Mental Health | DX: Z51.81 Encounter for therapeutic drug level monitoring (principal); F11.20 Opioid dependence, uncomplicated; F10.20 Alcohol dependence, uncomplicated | CPT/HCPCS: 80305; 99212 ==

== ENCOUNTER 2022-10-02 11:00 | Outpatient (RCR) | payer MEDICAID, SELFPAY | END 2022-10-30 08:46 | disposition home or self-care (01) | LOC: HO.PT 11:00 | PROVIDERS: PCP Nurse Practitioner; Visit Provider Nurse Practitioner | DX: M54.50 Low back pain, unspecified (principal) | CPT/HCPCS: 97110; 97140; 97162 ==

== ENCOUNTER 2022-10-07 01:44 | Inpatient (IN) | payer OTHER, MEDICAID, SELFPAY ==
[2022-10-07] VITALS (7 sets, daily range): BP systolic 100–141; BP diastolic 60–77; PULSE 68–85; RESP 15–20; TEMP 36.1–36.8; O2SAT 97–100; BMI 27.7; BMI 27.6
--- NOTE | 2022-10-07 | ECG_ITS ---
Test Reason : CHECK QT Blood Pressure : / mmHG Vent. Rate : 071 BPM Atrial Rate : 071 BPM P-R Int : 142 ms QRS Dur : 094 ms QT Int : 450 ms P-R-T Axes : 053 025 028 degrees QTc Int : 489 ms Normal sinus rhythm Prolonged QT Abnormal ECG When compared with ECG of 07-OCT-2022 02:05, No significant change was found Referred By: Loni Justin Electronically Signed By:Dario Pratt
--- NOTE | 2022-10-07 | ECG_ITS ---
Test Reason : qtc Blood Pressure : / mmHG Vent. Rate : 079 BPM Atrial Rate : 079 BPM P-R Int : 144 ms QRS Dur : 096 ms QT Int : 420 ms P-R-T Axes : 053 027 059 degrees QTc Int : 481 ms Normal sinus rhythm Prolonged QT Abnormal ECG When compared with ECG of 07-OCT-2022 07:49, No significant change was found Referred By: Charles Smith Electronically Signed By:Dario Pratt
--- NOTE | 2022-10-07 | ECG_ITS ---
Test Reason : ETOH/SI Blood Pressure : / mmHG Vent. Rate : 081 BPM Atrial Rate : 081 BPM P-R Int : 134 ms QRS Dur : 088 ms QT Int : 390 ms P-R-T Axes : 062 035 051 degrees QTc Int : 453 ms Normal sinus rhythm Normal ECG When compared with ECG of 23-MAY-2022 21:10, Fusion complexes are no longer Present Referred By: Generic ED Physician Electronically Signed By:Dario Pratt
--- NOTE | 2022-10-07 02:13 | PC.NURSE ---
This RN contacting Poison Control for treatment plan. Per Poison Control to administer Charcoal 50 g with Sorbitol ( Gallegos aware). All requested labs by Poison Control ordered, plan to repeat chemistry, ASA, Tylenol in 4 hours. Primary RN Betsey beasley. Sitter at bedside.
--- NOTE | 2022-10-07 02:15 | PC.NURSE ---
pt a&ox4, speaking clear full sentences, answering questions appropriately and in no apparent distress. placed on quality measurement specialist, ekg done, labs being obtained, pt changed over into hospital attire and belongings secured by security. sitter at bedside. poison control contacted by Joaquina HA. will CTM
[2022-10-07 02:48] LABS: MANUAL DIFF FLAG NO
[2022-10-07 02:52] LABS: Basophils Percent Auto 0.4 % (0-2); Eosinophils Percent Auto 0.1 % (0-4); Hematocrit 40.6 % (42.0-52.0); Imm Gran Abs Auto 0.02 X10*3/uL (0.00-0.03); Imm Gran Pct Auto 0.2 % (0.0-0.4); Lymphocytes Absolute Auto 1.1 X10*3/uL (1.2-4.9); Lymphocytes Percent Auto 10.1 % (20-40); Mean Corpuscular HGB Conc 34.5 g/dl (31.0-36.0); Mean Corpuscular Volume 87.1 fL (80.0-98.0); Mean Platelet Volume 10.1 fL (9.4-12.4); Monocytes Absolute Auto 0.8 X10*3/uL (0.1-1.2); Monocytes Percent Auto 6.8 % (2-11); Neutrophils Absolute Auto 9.1 x10*3/uL (2.0-8.3); Neutrophils Percent Auto 82.4 % (45-73); Platelet Count 223 X10*3/uL (160-400); Red Blood Count 4.66 X10*6/uL (4.60-5.80); Red Cell Distribution Width 13.3 % (11.0-16.0); White Blood Count 11.1 X10*3/uL (4.8-10.8)
--- NOTE | 2022-10-07 02:59 | ED_ITS ---
HPI - Psych General Chief Complaint: Psychiatric Symptoms Stated Complaint: Overdose Time Seen by Provider: 10/07/22 02:53 History of Present Illness HPI Narrative: Patient is a 52-year-old male with a history depression. Positive history of ETOH. Patient just got out of detox early August. Started drinking heavily again. Started using cocaine in the last week. Patient got very upset at himself. Try to attempt suicide by taking Wellbutrin. They are 300 mg tablets. Patient took approximately 10-15 tablets about 2 hours prior to arrival. Patient denies any fever chills no chest pain or shortness breath no nausea no vomiting. No systemic complaints. Related Data Previous Rx's Medication Instructions Recorded amitriptyline 25 mg tablet 25 mg PO BEDTIME 30 days #30 tabs 06/10/22 bupropion HCl 450 mg 24 hr tablet, 450 mg PO DAILY 30 days #30 tabs 06/10/22 extended release chlorpromazine 25 mg tablet 25 mg PO Q6H PRN Anxiety 30 days 06/10/22 #60 tabs cyclobenzaprine 10 mg tablet 10 mg PO TID PRN muscle spasm 30 06/10/22 days #90 tabs dextroamphetamine-amphetamine 20 20 mg PO DAILY 30 days #30 tabs 06/10/22 mg tablet ferrous sulfate 324 mg (65 mg 325 mg PO BEDTIME 30 days #30 tabs 06/10/22 iron) tablet,delayed release gabapentin 800 mg tablet 800 mg PO TID 30 days #90 tabs 06/10/22 hydroxyzine HCl 25 mg tablet 25 mg PO Q6H PRN Anxiety 30 days 06/10/22 #90 tabs lidocaine 5 % topical patch 1 patch topical DAILY PRN Pain 30 06/10/22 (Lidoderm) days #30 ea metronidazole 0.75 % topical gel 1 appl topical BID 30 days #45 06/10/22 grams multivitamin (Daily-Tony tablet) 1 tab PO DAILY 30 days #30 tabs 06/10/22 naproxen 500 mg tablet 250 mg PO BID PRN Pain 30 days #30 06/10/22 tabs nicotine 21 mg/24 hr daily 21 mg transdermal DAILY 28 days 06/10/22 transdermal patch #28 ea polyethylene glycol 3350 17 gram 17 g PO DAILY PRN Constipation 30 06/10/22 oral powder packet days #30 ea prazosin 2 mg capsule 4 mg PO BEDTIME 30 days #60 caps 06/10/22 pyridoxine (vitamin B6) 50 mg 50 mg PO DAILY 30 days #30 tabs 06/10/22 tablet sennosides 8.6 mg-docusate sodium 2 tab PO BEDTIME PRN Constipation 06/10/22 50 mg tablet (Senna Plus) 30 days #60 tabs trazodone 50 mg tablet 150 mg PO BEDTIME 30 days #90 tabs 06/10/22 zolpidem 5 mg tablet 5 mg PO BEDTIME PRN Insomnia 30 06/10/22 days #30 tabs buprenorphine 8 mg-naloxone 2 mg 1 film sublingual TID #42 ea 09/24/22 sublingual film (Suboxone) Allergies Allergy/AdvReac Type Severity Reaction Status Date / Time ketamine AdvReac Severe Agitated Verified 10/07/22 01:57 phenobarbital AdvReac Vomiting Verified 10/07/22 01:57 Review of Systems Review of Systems: Positive overdose Yes all other systems are reviewed and are negative PMFSH Past Medical History Attestation statement: The following information was validated with the patient. Medical History Alcohol dependence Alcohol use disorder Anxiety Chronic post-traumatic stress disorder (PTSD) Depression EtOH dependence Hepatic steatosis Hepatitis C antibody positive in blood Incidental pulmonary nodule MDD (major depressive disorder), recurrent episode, severe Surgical History History of mandibular surgery Family History Family History Mother Diabetes mellitus Father Leukemia Social History Social History Household Members: None Household Members Other:: [employer] program Housing: Homeless Housing Other:: [employer] program Do you presently have visiting nurse or other home services: No Unable to assess alcohol history related to: Unknown Alcohol intake: current Alcohol intake frequency: holidays/special occasions only Alcohol type: beer and hard liquor Patient Tobacco Use Status: Current everyday Tobacco user Tobacco use type: Cigarette Cigarette Packs Per Day: 0.5 Cigarettes Per Day: 20 Years Smoked: 10+ e-Cigarette/Vaping Use: Never Used Second Hand Smoke Exposure: No Substance Use Type: Amphetamines and Crack/Cocaine service: No Current occupational status: unemployed Sexual orientation: Straight/Heterosexual Physical Exam Vital Signs: Vital Signs: Last Vital Signs Temp 98.1 F 10/07/22 01:46 Pulse 85 10/07/22 01:46 Resp 15 10/07/22 01:46 BP 137/75 10/07/22 01:46 Pulse Ox 100 10/07/22 01:46 O2 Del Method Room Air 10/07/22 01:46 BMI result Body Mass Index 27.7 Appearance: Alert. Oriented X3. No acute distress. Eyes: Pupils equal, round and reactive to light. ENT: Pharynx normal. Neck: Normal inspection. Neck supple. No lymph nodes noted. No crepitus CVS: Normal heart rate and rhythm. Pulses normal. Normal S1 and S2 Respiratory: No respiratory distress. Breath sounds normal. No Wheezing. No rales Abdomen: Soft and nontender. No rigidity. No distention. good BS x4 Skin: Skin warm and dry. Normal skin color. Normal skin turgor. Extremities: No lower extremity edema. Neurovascular intact to all extremities. No Lacerations. No Rash Neuro: Oriented X 3. No motor deficit. No sensory deficit. Moving all extermities. No slurred speech Medical Decision Making Medical Decision Making [facility] Narrative: My interpretation patient's EKG showed a sinus pattern heart rate is 80 [place] QRS QT within normal limits there is no acute ST segment elevation. Patient well- appearing. Positive attempted overdose prior to arrival. Took Wellbutrin 300 mg up to 10-15 tablets. Will require close monitoring. Patient is currently in no distress. Will require crisis evaluation when sober. Patient because he took up to 10-15 tablet of 300 mg extended release Wellbutrin. Will require seizure precaution and monitoring for the next 24 hours. His Charcot was given. Patient's case discussed with poison control. Discussed with hospitalist team. Placed on the monitor. IV fluids given. Patient's alcohol interestingly was negative. Case discussed with hospitalist team for admission. Will monitor carefully. Differential Diagnosis Polysubstance abuse, overdose, suicidal ideation Consult Healthcare Provider Management of the patient was discussed with: Hospitalist Lab Data [facility] Lab Attestation statement: I reviewed the patient's lab results. 10/07/22 02:42 10/07/22 02:42 Labs: Lab Results 10/07/22 10/07/22 Range/Units 02:42 02:42 WBC 11.1 H (4.8-10.8) X10*3/uL RBC 4.66 D (4.60-5.80) X10*6/uL Hgb 14.0 (14.0-18.0) g/dl Hct 40.6 L (42.0-52.0) % MCV 87.1 (80.0-98.0) fL MCH 30.0 (27.0-33.0) pg MCHC 34.5 (31.0-36.0) g/dl RDW 13.3 (11.0-16.0) % Plt Count 223 D (160-400) X10*3/uL MPV 10.1 (9.4-12.4) fL Immature Gran % (Auto) 0.2 (0.0-0.4) % Neut % (Auto) 82.4 H (45-73) % Lymph % (Auto) 10.1 L (20-40) % [place] % (Auto) 6.8 (2-11) % Eos % (Auto) 0.1 (0-4) % Baso % (Auto) 0.4 (0-2) % Lymph # (Auto) 1.1 L (1.2-4.9) X10*3/uL [place] # (Auto) 0.8 (0.1-1.2) X10*3/uL Eos # (Auto) 0.0 (0.0-0.4) X10*3/uL Baso # (Auto) 0.0 (0.0-0.2) X10*3/uL Abs Immat Gran (auto) 0.02 (0.00-0.03) X10*3/uL Absolute Neuts (auto) 9.1 H (2.0-8.3) x10*3/uL Absolute Nucleated RBC 0.000 (0.0-0.012) X10*3/uL Nucleated RBC % (auto) 0.0 (0.0-0.2) /100WBC Sodium 141 (135-145) mmol/L Potassium 4.4 (3.3-5.1) mmol/L Chloride 107 (96-108) mmol/L Carbon Dioxide 23 (22-29) mmol/L Anion Gap 15 (12-20) BUN 22 H (9-16) mg/dL Creatinine 1.06 (0.5-1.4) mg/dL Estim Creat Clear Calc 92.1 Estimated GFR > 60 Random Glucose 71 (60-115) mg/dL Calcium 9.4 D (8.4-10.2) mg/dL Total Bilirubin 0.5 (0.0-1.0) mg/dL AST 45 H (5-37) U/L ALT 36 (0-40) U/L Alkaline Phosphatase 65 (39-117) U/L Total Protein 6.7 (6.5-8.0) g/dL Albumin 4.5 (3.5-5.0) g/dL Salicylates < 5.0 L (15-30) mg/dL Ethyl Alcohol < 10 mg/dL Independent Interpretation I performed an independent interpretation of an: EKG Interpretation: Sinus heart rate is 80 PRK ask PT within normal limits is no acute ST segment elevation Critical Care Time Critical Care Time Critical Care Time: Yes Total Critical Care Time: 40 Attestation: I have personally provided 40 minutes of critical care time exclusive of time spent on separately billable procedures. Time includes review of lab data, radiology results, discussion with consultants, and monitoring for potential decompensation. Interventions were performed as documented above Discharge Plan Discharge Clinical Impression: Major depression, Suicide attempt Patient Disposition: Admitted As Inpatient Prescriptions: No Action ferrous sulfate 324 mg (65 mg iron) Tablet,Delayed Release (Dr/Ec) 325 mg PO BEDTIME 30 Days Qty: 30 0RF prazosin 2 mg capsule 4 mg PO BEDTIME 30 Days Qty: 60 0RF zolpidem 5 mg Tablet 5 mg PO BEDTIME PRN (Reason: Insomnia) 30 Days Qty: 30 0RF gabapentin 800 mg tablet 800 mg PO TID 30 Days Qty: 90 0RF chlorpromazine 25 mg Tablet 25 mg PO Q6H PRN (Reason: Anxiety) 30 Days Qty: 60 0RF dextroamphetamine-amphetamine 20 mg Tablet 20 mg PO DAILY 30 Days Qty: 30 0RF Rx Instructions: Partial Fill upon patient request. trazodone 50 mg Tablet 150 mg PO BEDTIME 30 Days Qty: 90 0RF amitriptyline 25 mg Tablet 25 mg PO BEDTIME 30 Days Qty: 30 0RF multivitamin [Daily-Tony] Tablet 1 tab PO DAILY 30 Days Qty: 30 0RF cyclobenzaprine 10 mg Tablet 10 mg PO TID PRN (Reason: muscle spasm) 30 Days Qty: 90 0RF polyethylene glycol 3350 17 gram Powder In Packet 17 g PO DAILY PRN (Reason: Constipation) 30 Days Qty: 30 0RF sennosides-docusate sodium [Senna Plus] 8.6-50 mg tablet 2 tab PO BEDTIME PRN (Reason: Constipation) 30 Days Qty: 60 0RF lidocaine [Lidoderm] 5 % adhesive patch,medicated 1 patch topical DAILY PRN (Reason: Pain) 30 Days Qty: 30 0RF nicotine 21 mg/24 hr Patch 24 Hour 21 mg transdermal DAILY 28 Days Qty: 28 0RF Rx Instructions: remove at bedtime pyridoxine (vitamin B6) 50 mg Tablet 50 mg PO DAILY 30 Days Qty: 30 0RF hydroxyzine HCl 25 mg Tablet 25 mg PO Q6H PRN (Reason: Anxiety) 30 Days Qty: 90 0RF metronidazole 0.75 % Gel 1 appl topical BID 30 Days Qty: 45 0RF naproxen 500 mg Tablet 250 mg PO BID PRN (Reason: Pain) 30 Days Qty: 30 0RF bupropion HCl 450 mg tablet extended release 24 hr 450 mg PO DAILY 30 Days Qty: 30 0RF buprenorphine-naloxone [Suboxone] 8-2 mg film 1 film sublingual TID Qty: 42 0RF
[2022-10-07 03:14] LABS: Alanine Aminotransferase 36 U/L (0-40); Albumin Level 4.5 g/dL (3.5-5.0); Alkaline Phosphatase 65 U/L (39-117); Anion Gap 15 (12-20); Aspartate Amino Transferase 45 U/L (5-37); Bilirubin Total 0.5 mg/dL (0.0-1.0); Blood Urea Nitrogen 22 mg/dL (9-16); Calcium 9.4 mg/dL (8.4-10.2); Carbon Dioxide 23 mmol/L (22-29); Chloride 107 mmol/L (96-108); Creatinine Clr Calc Pharmacy 92.1; Estimated Glomerular Filt Rate > 60; Ethanol < 10 mg/dL; Glucose Random 71 mg/dL (60-115); Potassium 4.4 mmol/L (3.3-5.1); Salicylate < 5.0 mg/dL (15-30); Sodium 141 mmol/L (135-145); Total Protein 6.7 g/dL (6.5-8.0)
[2022-10-07] MEDS: Activated charcoaL 50 GM/240 ML ORAL.SUSP PO (03:28)
[2022-10-07 03:31] LABS: Acetaminophen LAB < 17 mcg/mL (<30)
--- NOTE | 2022-10-07 04:00 | PC.NURSE ---
attempted for iv line at this time with no success. pt difficult stick will attempt for another RN to try
[2022-10-07] MEDS: Haloperidol Lactate 5 MG/ML VIAL IM (04:27)
[2022-10-07] MEDS: LORazepam 2 MG/ML VIAL IM (04:27)
[2022-10-07] MEDS: diphenhydrAMINE HCL 50 MG/ML VIAL IM (04:27)
--- NOTE | 2022-10-07 04:32 | PC.NURSE ---
pt presents with increasing agitation, aggression and anger towards staff members after MD told pt we cannot give him any medications for pain/anxiety. MD explained to pt that since he overdosed on Wellbutrin medication at this time we cannot administer anymore medications and need to just watch him instead. pt not ok with this answer, became instantly angry yelling and threatening staff saying i am fucking leaving then flipping off staff and this RN and MD saying fuck you and ripping off all medical equipment. security called. IM medications administered per provider orders. medication restraint form being filled out. sitter in place. will CTM
[2022-10-07 05:02] LABS: Magnesium 2.2 mg/dL (1.6-2.6)
[2022-10-07 05:03] LABS: MANUAL DIFF FLAG NO
[2022-10-07 05:05] LABS: Basophils Absolute Auto 0.1 X10*3/uL (0.0-0.2); Basophils Percent Auto 0.6 % (0-2); Eosinophils Percent Auto 0.2 % (0-4); Hematocrit 35.7 % (42.0-52.0); Hemoglobin 12.6 g/dl (14.0-18.0); Imm Gran Abs Auto 0.03 X10*3/uL (0.00-0.03); Imm Gran Pct Auto 0.3 % (0.0-0.4); Lymphocytes Absolute Auto 1.8 X10*3/uL (1.2-4.9); Lymphocytes Percent Auto 18.5 % (20-40); Mean Corpuscular HGB Conc 35.3 g/dl (31.0-36.0); Mean Corpuscular Hemoglobin 30.7 pg (27.0-33.0); Mean Corpuscular Volume 86.9 fL (80.0-98.0); Mean Platelet Volume 10.2 fL (9.4-12.4); Monocytes Absolute Auto 0.7 X10*3/uL (0.1-1.2); Monocytes Percent Auto 7.4 % (2-11); Platelet Count 211 X10*3/uL (160-400); Red Blood Count 4.11 X10*6/uL (4.60-5.80); Red Cell Distribution Width 13.2 % (11.0-16.0); White Blood Count 9.6 X10*3/uL (4.8-10.8)
--- NOTE | 2022-10-07 06:16 | PM.IMHP ---
History of Present Illness Date of Service: 10/07/22 Chief Complaint: Overdose 52-year-old male with past medical history of depression, PTSD, history of alcohol use disorder, as well as opioid use disorder presents to the hospital stating that he overdosed on Wellbutrin. Patient is very agitated, not willing to talk to me, he is receiving restraints at this time, therefore history is obtained mostly from the ED physician. Appears the patient just got out out of detox for alcohol abuse early in August, he started drinking heavily again, started using cocaine in the last week, got really upset at himself and tried attempting suicide by 2 cane Wellbutrin. It appears that he took 10-15 tablets of 300 mg. Unable to obtain review of system due to patient's medical condition On arrival to the ED patient hemodynamically stable Labs are significant for WBC count of 11.1, otherwise unremarkable, Tylenol and salicylate level negative EKG shows a QTc interval of 453 Patient will be admitted for observation Review of Systems Review of Systems: Yes Unobtainable due to mental condition [facility] Medical History Alcohol dependence Alcohol use disorder Anxiety Chronic post-traumatic stress disorder (PTSD) Depression EtOH dependence Hepatic steatosis Hepatitis C antibody positive in blood Incidental pulmonary nodule MDD (major depressive disorder), recurrent episode, severe Family History Mother Diabetes mellitus Father Leukemia Surgical History History of mandibular surgery Social History Household Members: None Household Members Other:: [facility] program Housing: Homeless Housing Other:: [facility] program Do you presently have visiting nurse or other home services: No Unable to assess alcohol history related to: Unknown Alcohol intake: current Alcohol intake frequency: holidays/special occasions only Alcohol type: beer and hard liquor Patient Tobacco Use Status: Tobacco use Unknown Tobacco use type: Cigarette Cigarette Packs Per Day: 0.5 Cigarettes Per Day: 20 Years Smoked: 10+ e-Cigarette/Vaping Use: Never Used Second Hand Smoke Exposure: No Substance Use Type: Amphetamines and Crack/Cocaine Advance Directives: No Advance Directives Information Provided: Yes Nutrition Risks: No Nutritional Risk service: No Current occupational status: unemployed Sexual orientation: Straight/Heterosexual Meds Allergies Allergy/AdvReac Type Severity Reaction Status Date / Time ketamine AdvReac Severe Agitated Verified 10/07/22 01:57 phenobarbital AdvReac Vomiting Verified 10/07/22 01:57 Active Medications: Current Medications Acetaminophen (Acetaminophen 325 Mg Tablet) 650 mg PO Q6H PRN PRN Reason: Pain, Mild (Pain Scale 1-3) Docusate Sodium (Docusate Sodium 100 Mg Capsule) 100 mg PO DAILY PRN PRN Reason: Constipation Enoxaparin Sodium (Enoxaparin Sodium 40 Mg/0.4 Ml Syringe) 40 mg SUBCUT Q24H [facility] Last Admin: 10/07/22 04:50 Dose: Not Given Ondansetron HCl (Ondansetron Hcl 4 Mg/2 Ml Vial) 4 mg IVPUSH Q8H PRN PRN Reason: Nausea and Vomiting Pharmacy Consult (Consult Rx Perform Med Rec) 1 each MISCELLANE ONCE PRN PRN Reason: Consult order Sodium Chloride (0.9 % Sodium Chloride Flush 3 Ml Syringe) 3 ml IVFLUSH QSHIFT [facility] Home Medications Medication Instructions Recorded Confirmed Last Taken Type acetaminophen 650 mg 1,300 mg PO Q8H PRN Pain (Scale 10/07/22 10/07/22 Unknown History tablet,extended release Score 1-3) gabapentin 800 mg tablet 800 mg PO TID 10/07/22 10/07/22 Unknown History multivitamin with folic acid 400 1 tab PO DAILY 10/07/22 10/07/22 Unknown History mcg tablet (Tab-A-Tony) Physical Exam Vital Signs and Narrative: Vital Signs: Last Vital Signs Temp 98.1 F 10/07/22 01:46 Pulse 85 10/07/22 01:46 Resp 15 10/07/22 01:46 BP 137/75 10/07/22 01:46 Pulse Ox 100 10/07/22 01:46 O2 Del Method Room Air 10/07/22 01:46 BMI result Body Mass Index 27.7 Const: Other: Patient is agitated, not cooperating, unable to do his medical exam Results Labs 10/07/22 04:58 10/07/22 02:42 Labs: Laboratory Results - last 24 hr 10/07/22 10/07/22 10/07/22 02:42 02:42 04:58 MCV 87.1 86.9 MCH 30.0 30.7 MCHC 34.5 35.3 RDW 13.3 13.2 Plt Count 223 D 211 MPV 10.1 10.2 Immature Gran % (Auto) 0.2 0.3 Neut % (Auto) 82.4 H 73.0 Lymph % (Auto) 10.1 L 18.5 L [place] % (Auto) 6.8 7.4 Eos % (Auto) 0.1 0.2 Baso % (Auto) 0.4 0.6 Lymph # (Auto) 1.1 L 1.8 [place] # (Auto) 0.8 0.7 Eos # (Auto) 0.0 0.0 Baso # (Auto) 0.0 0.1 Abs Immat Gran (auto) 0.02 0.03 Absolute Neuts (auto) 9.1 H 7.0 Absolute Nucleated RBC 0.000 0.000 Nucleated RBC % (auto) 0.0 0.0 Anion Gap 15 Estim Creat Clear Calc 92.1 Estimated GFR > 60 Random Glucose 71 Calcium 9.4 D Magnesium 2.2 Total Bilirubin 0.5 AST 45 H ALT 36 Alkaline Phosphatase 65 Total Protein 6.7 Albumin 4.5 Salicylates < 5.0 L Acetaminophen < 17 Ethyl Alcohol < 10 Assessment and Plan (1) Suicide attempt: Status: Acute (2) Deliberate medication overdose: Status: Acute Plan 52-year-old male with past medical history of PTSD, major depression, alcohol abuse, who presents to the hospital stating overdose on 10-15 pills of 300 mg Wellbutrin # suicide attempt - secondary to depression - psychiatry consulted # deliberate medication overdose - on Wellbutrin - EKG shows QTC of 453 - salicylate as well as well acetaminophen level negative - Will repeat EKG q.6 hours - monitor symptoms # aggression - very agitated and aggressive in the ED, received Haldol as well as Ativan - monitor # alcohol abuse - unable to assess for alcohol withdrawal - at this time will place him on CIWA - start thiamine and folic acid DVT prophylaxis: Early ambulation Time Spent With Patient Time: Total time managing care of this patient today ____ minutes. Quality Stroke Does the patient have a stroke diagnosis?: No VTE Prior VTE?: No VTE Risk Level:: Medical - low VTE Device Contraindication: Treatment Not Indicated VTE Drug Contraindication: Treatment Not Indicated
[2022-10-07 06:20] LABS: Anion Gap 12 (12-20); Blood Urea Nitrogen 19 mg/dL (9-16); Calcium 8.6 mg/dL (8.4-10.2); Carbon Dioxide 23 mmol/L (22-29); Chloride 104 mmol/L (96-108); Creatinine Clr Calc Pharmacy 87.9; Estimated Glomerular Filt Rate > 60; Glucose Random 141 mg/dL (60-115); Potassium 3.4 mmol/L (3.3-5.1); Sodium 136 mmol/L (135-145)
--- NOTE | 2022-10-07 06:28 | PC.NURSE ---
patient sleeping comfortably on stretcher., respirations even and unlabored. equal chest rise and fall. 1:[address] waiting for bed assignment. will CTM
--- NOTE | 2022-10-07 07:26 | PC.NURSE ---
Resumed care of this patient this morning, 1:1 present. Pt is currently resting, all safety measures in place. awaiting bed placement.
[2022-10-07] MEDS: Folic Acid 1 MG TABLET PO (08:24)
[2022-10-07] MEDS: Thiamine HCL 100 MG TABLET PO (08:24)
[2022-10-07] MEDS: 0.9 % Sodium Chloride Flush 3 ML SYRINGE IVFLUSH (08:25)
--- NOTE | 2022-10-07 08:53 | PC.NURSE ---
Pt up and talking with staff, reporting his thoughts of harming himself are there but less active than before, he did report he would alert staff if the thoughts came back. Report called to floor.
--- NOTE | 2022-10-07 09:03 | PC.NURSE ---
Poison control caled for update, given information on PRn given this morning, and EKG updated and information given to them.
--- NOTE | 2022-10-07 09:36 | PM.EVENT ---
Event Note Date of Service: 10/07/22 Event Note: Day hospitalist update S: becoming tremulous states last EtOH 2 nights ago around 7/8pm, half of usual denies taking any other substance other than bupropion hx EtOH withdrawal sz O: VS: T 97.9, BP 129/68, P 80, R 16, SaO2 98 on RA Gen: tremulous HEENT: sclera anicteric, moist mucus membranes Neck: supple Lungs: clear to auscultation bilaterally Heart: regular rate and rhythm, no murmurs Abd: soft, non-tender, non-distended Ext: no edema Skin: warm/well-perfused Neuro: alert and oriented x3, no focal findings Psych: appropriate affect A/P: hospital day#1 52yo M with depression, PTSD, AUD, OUD got out of EtOH detox in August but then relapsed and also started using cocaine attempted suicide by taking 10-15 tablets of bupropion 300 mg # bupropion intentional overdose - Poison Control following, cardiac monitoring, seizure precautions - sitter, inpt Psych when medically clear # EtOH withdrawal # AUD - lorazepam prn CIWA 8+ [pt has intolerance of phenobarbital] - Addiction Medicine consult - thiamine, folate # cocaine abuse # OUD - Addiction Med consult - screen HBV/HCV/HIV # VTE ppx: LMWH # dispo: psych In my clinical judgment, the patient requires continued inpatient hospitalization for the following reasons: monitoring due to overdose, EtOH withdrawal Time Spent With Patient Time: Total time managing care of this patient today ____ minutes.
--- NOTE | 2022-10-07 09:47 | PC.NURSE ---
pt admitted to 362 from the ER accompanied by 1:1 observer for SI. pt cooperative and calm placed on tele as per orders oriented to room and protocol
--- NOTE | 2022-10-07 10:35 | PHA.MEDREC ---
Pharmacy Consult ? Medication Reconciliation Pharmacy has completed the medication reconciliation. Patient was able to list his medications and doses. Matches what he's filling in claim history.
[2022-10-07 11:07] LABS: Appearance Urine Clear; Color Urine Yellow; Glucose Urine UA Negative (Negative); Leukocyte Esterase Urine Negative (Negative); Nitrite Urine Negative (Negative); Urine Blood Negative (Negative); Urine Ketones Trace mg/dL (Negative); Urine Protein Negative (Neg-Trace)
[2022-10-07 11:12] LABS: Amphetamine Screen Urine Not Detected (Not Detect); Barbiturates, Urine Not Detected (Not Detect); Benzodiazepines Screen Urine Not Detected (Not Detect); Cannabinoid Screen Urine Not Detected (Not Detect); Cocaine Screen Urine POSITIVE (Not Detect); Fentanyl, urine POSITIVE (Not Detect); Opiate Screen Urine Not Detected (Not Detect); Phencyclidine Screen Urine Not Detected (Not Detect)
--- NOTE | 2022-10-07 11:24 | PC.NURSE ---
Attempted to gain IV access in pt was not successful pt reluctant for another attempt Md Charles Smith made aware of no access .
[2022-10-07] MEDS: LORazepam 1 MG TABLET 2 MG PO ×3 (12:15→20:27)
--- NOTE | 2022-10-07 13:15 | MHC.CM.PN ---
Met with pt to review d/c planning; Pt states he is presently in a congregate living environment and is hoping to gt accepted to treatment center for his ongoing MH and substance use issues. Pt has no DME or affiliation w/community support agencies. Pt somewhat reserved with information. D/C plan is for psych to see once medically stable for INPT psych placement. CM to follow.
[2022-10-07] MEDS: Buprenorphine/Naloxone 8/2 mg FILM 1 FILM SUBLINGUAL ×2 (14:46→20:30)
[2022-10-07] MEDS: Zolpidem Tartrate 5 MG TABLET 10 MG PO (20:27)
[2022-10-07] MEDS: Acetaminophen 325 MG TABLET 650 MG PO (20:27)
[2022-10-07] MEDS: Potassium Chloride Packet 20 MEQ PACKET 40 MEQ PO (22:30)
[2022-10-08] VITALS (7 sets, daily range): BP systolic 107–143; BP diastolic 52–83; PULSE 67–100; RESP 16–20; TEMP 35.9–37; O2SAT 94–98
--- NOTE | 2022-10-08 | ECG_ITS ---
Test Reason : overdose Blood Pressure : / mmHG Vent. Rate : 070 BPM Atrial Rate : 070 BPM P-R Int : 138 ms QRS Dur : 090 ms QT Int : 408 ms P-R-T Axes : 055 041 046 degrees QTc Int : 440 ms Normal sinus rhythm with sinus arrhythmia Normal ECG When compared with ECG of 07-OCT-2022 14:43, No significant change was found Referred By: Charles Smith Electronically Signed By:Dario Pratt
[2022-10-08] MEDS: Potassium Chloride Packet 20 MEQ PACKET 40 MEQ PO (00:17)
[2022-10-08] MEDS: Enoxaparin Sodium 40 MG/0.4 ML SYRINGE SUBCUT (04:41)
[2022-10-08] MEDS: LORazepam 1 MG TABLET 2 MG PO ×5 (04:47→20:37)
[2022-10-08 07:01] LABS: Hematocrit 38.4 % (42.0-52.0); Mean Corpuscular HGB Conc 33.9 g/dl (31.0-36.0); Mean Corpuscular Hemoglobin 30.7 pg (27.0-33.0); Mean Corpuscular Volume 90.8 fL (80.0-98.0); Mean Platelet Volume 10.8 fL (9.4-12.4); Platelet Count 190 X10*3/uL (160-400); Red Blood Count 4.23 X10*6/uL (4.60-5.80); Red Cell Distribution Width 13.8 % (11.0-16.0); White Blood Count 4.3 X10*3/uL (4.8-10.8)
[2022-10-08 07:16] LABS: Alanine Aminotransferase 36 U/L (0-40); Albumin Level 3.6 g/dL (3.5-5.0); Alkaline Phosphatase 63 U/L (39-117); Aspartate Amino Transferase 41 U/L (5-37); Bilirubin Total 0.3 mg/dL (0.0-1.0); Blood Urea Nitrogen 13 mg/dL (9-16); Calcium 8.9 mg/dL (8.4-10.2); Creatinine Clr Calc Pharmacy 130.2; Estimated Glomerular Filt Rate > 60; Glucose Random 112 mg/dL (60-115); Magnesium 2.1 mg/dL (1.6-2.6); Total Protein 5.5 g/dL (6.5-8.0)
[2022-10-08 07:29] LABS: Anion Gap 10 (12-20); Carbon Dioxide 25 mmol/L (22-29); Chloride 109 mmol/L (96-108); Potassium 4.2 mmol/L (3.3-5.1); Sodium 140 mmol/L (135-145)
[2022-10-08] MEDS: Thiamine HCL 100 MG TABLET PO (08:28)
[2022-10-08] MEDS: Buprenorphine/Naloxone 8/2 mg FILM 1 FILM SUBLINGUAL ×3 (08:28→20:37)
[2022-10-08] MEDS: Folic Acid 1 MG TABLET PO (08:28)
[2022-10-08] MEDS: Multivitamin TABLET 1 TAB PO (08:28)
[2022-10-08] MEDS: Nicotine 21 MG PATCH.TD24 TRANSDERMA (08:28)
--- NOTE | 2022-10-08 10:35 | MHC.CM.PN ---
Addendum entered by Elizabeth Win 10/08/22 10:39: [facility] notified that the patient is medically cleared for discharge. Original Note: Per MD rounds patient is medically cleared for discharge. Patient will return to Psych unit when a bed becomes available.
--- NOTE | 2022-10-08 11:08 | P.DS_ITS ---
DS: Providers Provider Date of Service: 10/08/22 Date of admission: 10/07/22 10:14 Date of discharge: 10/08/22 Primary care physician: Bhupinder Morales APRN Consults: 10/07/22 06:20 Consult to Psychiatry Routine Consulting Provider: Psych Covering Reason for consultation: suicide attempt by overdosing Has provider been notified: No 10/07/22 08:44 Consult to Care Team Routine Comment: Reason for consultation: SI 10/07/22 08:45 Consult for Sitter Routine Reason for consultation: SI DS: Diagnosis Discharge Diagnosis (1) Suicide attempt: Status: Acute (2) Deliberate medication overdose: Status: Acute (3) Bupropion overdose: Status: Acute (4) Alcohol withdrawal: Status: Resolved DS: Summary Hospital Course Hospital Course: from admission H+P by hospitalist Loni Justin, 10/07/22: 52-year-old male with past medical history of depression, PTSD, history of alcohol use disorder, as well as opioid use disorder presents to the hospital stating that he overdosed on Wellbutrin.? Patient is very agitated, not willing to talk to me, he is receiving restraints at this time, therefore history is obtained mostly from the ED physician.? Appears the patient just got out out of detox for alcohol abuse early in August, he started drinking heavily again, started using cocaine in the last week, got really upset at himself and tried attempting suicide by 2 cane Wellbutrin.? It appears that he took 10-15 tablets of 300 mg. Unable to obtain review of system due to patient's medical condition On arrival to the ED patient hemodynamically stable Labs are significant for WBC count of 11.1, otherwise unremarkable, Tylenol and salicylate level negative EKG shows a QTc interval of 453 Patient will be admitted for observation 52yo M with depression, PTSD, AUD, OUD got out of Et[facility] detox in August but then relapsed and also started using cocaine; attempted suicide by taking 10-15 tablets of bupropion 300 mg. Hospital course by problem: # bupropion intentional overdose - Poison Control consulted, was observed for 24 hr with cardiac monitoring, seizure precautions. QRS interval stayed well below 100 ms. - monitored with sitter and cleared for discharge home by the CARE Team: Pt presented due to intentional OD on Wellbutrin. Pt is noted to present with similar presentation in the passed. During assessment he denied Si/HI. He reported that he is feeling better. He is remorseful and reported needing supports to stabilize. He was able to contract for safety and indicated that if stabilized in housing he knows his depression will increase. After consulting with [facility] Dolly Gutierrez and [facility] psychiatrist Dr Victoria Fowler it was determined that Pt would benefit best from engagement with Case Management to plan a successful discharge. - per Psychiatry to resume bupropion upon discharge. Dr Rose's note: Allopathic Doctor discussed case with Mathieu from Care Team who assessed patient and determined that pt did not meet inpatient level of care; pt denies any SI, mood is getting better and depression abating; pt is not asking for inpatient admisison and is accepting help from case management with dispo options (given that he is not able to return to program). Allopathic Doctor has treated patient several times on inpt unit and this hospital admission is very similar to most of patients past psych admissions and falls into his chronic pattern of relapse/stopping [id number] attempt/admission for detox, back on m eds/mood improved and discharge...At this time, it appears that patient is back at his baseline and does not need further treatment but just needs help with disposition issues (which case management is providing). Regarding medications, freelance writer recommends continuing Wellbutrin. Pt's depression has been well treated with Wellbutrin and despite past overdose attempts with Wellbutrin, patient has remained on this medication as it's proven effective. His suicidality only becomes an issue after he relapses and stops meds.? At this time, it is writers opinion that the benefit of Wellbutrin outweigh the risks since it effectively treats his depression and discontinuing it will increase risk of depression while doing nothing to eliminate risk of future overdoses on other agents. As for Ativan, recommend a script for a few days worth to help w/ taper. # EtOH withdrawal # AUD - intolerant of phenobarbital. treated with prn lorazepam PO and prescribed 1 mg q12h prn #6 to go home - prescribed thiamine and folate # cocaine abuse # OUD - HIV negative, HBV immune. HCV antibody positive, viral load pending; follow up with primary care doctor for results - Suboxone continued - Recovery Team consulted: Pt reports having been at [facility] x 3 months and had a recurrence with crack cocaine x 1 last week. Pt reports not doing everything I could have done while at [facility], including going to meetings and engaging in group. Pt reports feeling better and presents as future oriented. Pt is unable to return to 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 Pt reports having supportive people who he is able to stay with until a concrete plan is formulated. Pts options are returning to [facility], where he was prior to [facility] for 8 months, or moving to [place]. Pt reports having people who care about me in [place] but prefers to stay in [place]. Pt has a good relationship with staff at [facility] and is hopeful that with new circumstances of being unstably housed he will be able to return to that program. Pt denies current cravings or desire to use, pt states Other times I would just give up and lose everything but not this time, I don't want that. Pt currently receiving outpatient [facility] tx at the [facility], has follow up appt with Mag Cano APRN, next week. Pt has Suboxone films at [facility], does not need bridge script. Time Spent with Patient Time attestation: Total time managing care of this patient today __25__ minutes. Discharge coordination time: Less than 30 minutes Quality: Safe Use of Opioids Does Pt have an Active Cancer Diagnosis on the Problem List?: No Quality: Stroke Does the patient have a stroke diagnosis?: No Physical Exam Vital Signs: Vital Signs: Last Vital Signs Temp 96.7 F L 10/08/22 07:07 Pulse 67 10/08/22 07:07 Resp 18 10/08/22 07:07 BP 121/67 10/08/22 07:07 Pulse Ox 96 10/08/22 07:07 O2 Del Method Room Air 10/08/22 07:07 BMI result Body Mass Index 27.6 Gen: in no acute distress HEENT: sclera anicteric, moist mucus membranes Neck: supple Lungs: clear to auscultation bilaterally Heart: regular rate and rhythm, no murmurs Abd: soft, non-tender, non-distended Ext: no edema Skin: warm/well-perfused Neuro: alert and oriented x3, no focal findings Psych: appropriate affect DS: Data Data Completed and Pending Completed studies during hospitalization [Text1]: Laboratory Results WBC 4.3 X10*3/uL (4.8-10.8) L 10/08/22 06:29 RBC 4.23 X10*6/uL (4.60-5.80) L 10/08/22 06:29 Hgb 13.0 g/dl (14.0-18.0) L 10/08/22 06:29 Hct 38.4 % (42.0-52.0) L 10/08/22 06:29 MCV 90.8 fL (80.0-98.0) 10/08/22 06:29 MCH 30.7 pg (27.0-33.0) 10/08/22 06: MCHC 33.9 g/dl (31.0-36.0) 10/08/22 06: RDW 13.8 % (11.0-16.0) 10/08/22 06:29 Plt Count 190 X10*3/uL (160-400) 10/08/22 06:29 MPV 10.8 fL (9.4-12.4) 10/08/22 06:29 Immature Gran % (Auto) 0.3 % (0.0-0.4) 10/07/22 04:58 Neut % (Auto) 73.0 % (45-73) 10/07/22 04:58 Lymph % (Auto) 18.5 % (20-40) L 10/07/22 04:58 Bell % (Auto) 7.4 % (2-11) 10/07/22 04:58 Eos % (Auto) 0.2 % (0-4) 10/07/22 04:58 Baso % (Auto) 0.6 % (0-2) 10/07/22 04:58 Lymph # (Auto) 1.8 X10*3/uL (1.2-4.9) 10/07/22 04:58 Bell # (Auto) 0.7 X10*3/uL (0.1-1.2) 10/07/22 04:58 Eos # (Auto) 0.0 X10*3/uL (0.0-0.4) 10/07/22 04:58 Baso # (Auto) 0.1 X10*3/uL (0.0-0.2) 10/07/22 04:58 Abs Immat Gran (auto) 0.03 X10*3/uL (0.00-0.03) 10/07/22 04:58 Absolute Neuts (auto) 7.0 x10*3/uL (2.0-8.3) 10/07/22 04:58 Absolute Nucleated RBC 0.000 X10*3/uL (0.0-0.012) 10/08/22 06:29 Nucleated RBC % (auto) 0.0 /100WBC (0.0-0.2) 10/08/22 06:29 Sodium 140 mmol/L (135-145) 10/08/22 06:29 Potassium 4.2 mmol/L (3.3-5.1) D 10/08/22 06:29 Chloride 109 mmol/L (96-108) H 10/08/22 06:29 Carbon Dioxide 25 mmol/L (22-29) 10/08/22 06:29 Anion Gap 10 (12-20) L 10/08/22 06:29 BUN 13 mg/dL (9-16) 10/08/22 06:29 Creatinine 0.75 mg/dL (0.5-1.4) 10/08/22 06:29 Estim Creat Clear Calc 130.2 10/08/22 06:29 Estimated GFR > 60 10/08/22 06:29 Random Glucose 112 mg/dL (60-115) 10/08/22 06:29 Calcium 8.9 mg/dL (8.4-10.2) 10/08/22 06:29 Magnesium 2.1 mg/dL (1.6-2.6) 10/08/22 06:29 Total Bilirubin 0.3 mg/dL (0.0-1.0) 10/08/22 06:29 AST 41 U/L (5-37) H 10/08/22 06:29 ALT 36 U/L (0-40) 10/08/22 06:29 Alkaline Phosphatase 63 U/L (39-117) 10/08/22 06:29 Total Protein 5.5 g/dL (6.5-8.0) L 10/08/22 06:29 Albumin 3.6 g/dL (3.5-5.0) 10/08/22 06:29 Urine Color Yellow 10/07/22 10:43 Urine Appearance Clear 10/07/22 10:43 Urine pH 6.0 (5.0-9.0) 10/07/22 10:43 Ur Specific Urich 1.020 (1.005-1.025) 10/07/22 10:43 Urine Protein Negative mg/dL (Neg-Trace) 10/07/22 10:43 Urine Glucose (UA) Negative mg/dL (Negative) 10/07/22 10:43 Urine Ketones Trace mg/dL (Negative) 10/07/22 10:43 Urine Blood Negative (Negative) 10/07/22 10:43 Urine Nitrite Negative (Negative) 10/07/22 10:43 Ur Leukocyte Esterase Negative (Negative) 10/07/22 10:43 Salicylates < 5.0 mg/dL (15-30) L 10/07/22 02:42 Urine Opiates Screen Not Detected (Not Detect) 10/07/22 10:43 Urine Fentanyl Screen POSITIVE (Not Detect) H 10/07/22 10:43 Acetaminophen < 17 mcg/mL (<30) 10/07/22 02:42 Ur Barbiturates Screen Not Detected (Not Detect) 10/07/22 10:43 Ur Phencyclidine Scrn Not Detected (Not Detect) 10/07/22 10:43 Ur Amphetamines Screen Not Detected (Not Detect) 10/07/22 10:43 U Benzodiazepines Scrn Not Detected (Not Detect) 10/07/22 10:43 Urine Cocaine Screen POSITIVE (Not Detect) H 10/07/22 10:43 U Marijuana (THC) Screen Not Detected (Not Detect) 10/07/22 10:43 Ethyl Alcohol < 10 mg/dL 10/07/22 02:42 Hep Bs Antigen Negative (Negative) 10/08/22 06:29 Hep Bs Antibody REACTIVE (Nonreactive) 10/08/22 06:29 Hep B Core Total Ab Nonreactive (Nonreactive) 10/08/22 06:29 Hepatitis C Ab (EIA) Reactive (Nonreactive) H 10/08/22 06:29 HIV 1&2 Ab/P24 Ag 4thGn Nonreactive (Nonreactive) 10/08/22 06:29 Discharge Plan Discharge Anticipated Discharge Date/Time: 10/09/22 10:56 Patient Disposition: Home, Self-Care Discharge Diagnosis: suicidal attempt by intentional bupropion overdose, alcohol withdrawal alcohol use disorder, opioid use disorder cocaine abuse Referrals: Bhupinder Morales APRN [Primary Care Provider] - 1 Week Mag Cano CNP [Nurse Practitioner] - 1 Week Discharge Medications: New folic acid 1 mg Tablet 1 mg PO DAILY Qty: 30 0RF thiamine mononitrate (vit B1) 100 mg Tablet 100 mg PO DAILY Qty: 30 0RF lorazepam 1 mg tablet 1 mg PO BID PRN (Reason: alcohol withdrawal) Qty: 6 0RF bupropion HCl 450 mg tablet extended release 24 hr 450 mg PO DAILY Qty: 30 0RF Continued prazosin 2 mg capsule 4 mg PO BEDTIME 30 Days Qty: 60 0RF polyethylene glycol 3350 17 gram Powder In Packet 17 g PO DAILY PRN (Reason: Constipation) 30 Days Qty: 30 0RF nicotine 21 mg/24 hr Patch 24 Hour 21 mg transdermal DAILY 28 Days Qty: 28 0RF Rx Instructions: remove at bedtime metronidazole 0.75 % Gel 1 appl topical BID 30 Days Qty: 45 0RF multivitamin with folic acid [Tab-A-Tony] 400 mcg tablet 1 tab PO DAILY acetaminophen 650 mg tablet extended release 1,300 mg PO Q8H PRN (Reason: Pain (Scale Score 1-3)) gabapentin 800 mg tablet 800 mg PO TID methylphenidate HCl 20 mg Tablet 20 mg PO BID@0900,1300 trazodone 50 mg tablet 50 mg PO BEDTIME zolpidem 10 mg Tablet 10 mg PO BEDTIME PRN (Reason: Insomnia) buprenorphine-naloxone [Suboxone] 8-2 mg film 1 film sublingual TID Qty: 42 0RF Discontinued bupropion HCl 300 mg tablet extended release 24 hr 300 mg PO DAILY bupropion HCl 150 mg tablet extended release 24 hr 150 mg PO DAILY Discharge Orders: Discharge Order (Routine); Ordered 10/09/22 Ordered By: Charles Smith Diet: Advance to usual diet Activity on Discharge: As tolerated Stand Alone Forms: Patient Portal Discharge page Care Plan Goals: mental health Health Concerns: suicidal attempt by intentional bupropion overdose, alcohol withdrawal Plan of Treatment: resume bupropion as-needed lorazepam 1 mg every 12 hours for alcohol withdrawal sober living continue Suboxone Please follow up with your primary care doctor within 1 week. Return to the hospital if you experience recurrent or worsening symptoms. Your hepatitis C antibody was positive. Viral load is pending; follow up with primary care doctor for results. If positive, can pursue curative treatment as outpatient. Assessment: See Discharge Summary.
[2022-10-08] MEDS: Zolpidem Tartrate 5 MG TABLET 10 MG PO (20:37)
[2022-10-09] MEDS: LORazepam 1 MG TABLET 2 MG PO ×3 (00:18→11:27)
[2022-10-09 04:00] VITALS: BP 131/75; PULSE 71; RESP 18; TEMP 36.9; O2SAT 100
[2022-10-09] MEDS: Enoxaparin Sodium 40 MG/0.4 ML SYRINGE SUBCUT (04:21)
[2022-10-09 07:26] LABS: HBS Num1 172.06 mIU/mL (0-7.99); HBc Num1 0.27 S/CO (0.00-0.79); HBsAGNum1 0.29 S/CO (0.00-0.99); HIV AB/AG Nonreactive (Nonreactive); HIV Num 1 0.09 S/CO (0.00-0.99); Hepatitis B Core Antibody Nonreactive (Nonreactive); Hepatitis B Surface Antigen Negative (Negative); ~Hepatitis B Surface Antibody REACTIVE (Nonreactive)
[2022-10-09] MEDS: Thiamine HCL 100 MG TABLET PO (07:28)
[2022-10-09 07:29] LABS: ~HepC Num1 14.58 S/CO (0.00-0.79); ~Hepatitis C Antibody Reactive (Nonreactive)
[2022-10-09] MEDS: Buprenorphine/Naloxone 8/2 mg FILM 1 FILM SUBLINGUAL (07:29)
[2022-10-09] MEDS: Folic Acid 1 MG TABLET PO (07:29)
[2022-10-09] MEDS: Nicotine 21 MG PATCH.TD24 TRANSDERMA (07:29)
[2022-10-09] MEDS: Multivitamin TABLET 1 TAB PO (07:29)
[2022-10-09 07:51] VITALS: BP 124/69; PULSE 68; RESP 18; TEMP 37; O2SAT 98
--- NOTE | 2022-10-09 10:05 | MHC.RECOVRN ---
Met with pt in 362 to discuss substance use and dc plans. Pt had been admitted after intentional overdose of bupropion. Pt reports having been at [facility] x 3 months and had a recurrence with crack cocaine x 1 last week. Pt reports not doing everything I could have done while at [facility], including going to meetings and engaging in group. Pt reports feeling better and presents as future oriented. 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 Pt reports having supportive people who he is able to stay with until a concrete plan is formulated. Pts options are returning to [facility], where he was prior to [facility] for 8 months, or moving to [place]. Pt reports having people who care about me in [place] but prefers to stay in [place]. Pt has a good relationship with staff at [facility] and is hopeful that with new circumstances of being unstably housed he will be able to return to that program. Pt denies current cravings or desire to use, pt states Other times I would just give up and lose everything but not this time, I don't want that. Pt currently receiving outpatient JENIFER tx at the [facility], has follow up appt with Mag Cano APRN, next week. Pt has Suboxone films at [facility], does not need bridge script. Pt requesting dc around 12:30PM today and transportation to [facility]. Pt denies other questions or concerns for t/w. RN, CM, provider, and Mag Cano APRN, aware.
[2022-10-09 11:23] VITALS: BP 149/68; PULSE 91; RESP 18; TEMP 36.6; O2SAT 100
--- NOTE | 2022-10-09 12:51 | P.EN_ITS ---
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 [employer] discussed case with Mathieu from Care Team who assessed patient and determined that pt did not meet inpatient level of care; pt denies any SI, mood is getting better and depression abating; pt is not asking for inpatient admisison and is accepting help from case management with dispo options (given that he is not able to return to program). [employer] has treated patient several times on inpt unit and this hospital admission is very similar to most of patients past psych admissions and falls into his chronic pattern of relapse/stopping [id number] attempt/admission for detox, back on meds/mood improved and discharge...At this time, it appears that patient is back at his baseline and does not need further treatment but just needs help with disposition issues (which case management is providing). Regarding medications, typewriter assembly and parts inspector recommends continuing Wellbutrin. Pt's depression has been well treated with Wellbutrin and despite past overdose attempts with Wellbutrin, patient has remained on this medication as it's proven effective. His suicidality only becomes an issue after he relapses and stops meds. At this time, it is writers opinion that the benefit of Wellbutrin outweigh the risks since it effectively treats his depression and discontinuing it will increase risk of depression while doing nothing to eliminate risk of future overdoses on other agents. As for Ativan, recommend a script for a few days worth to help w/ taper. Time Spent With Patient Time: Total time managing care of this patient today ____ minutes.
[2022-10-12 08:34] LABS: HCV Log PCR <1.18 NOT DETECTED Log IU/mL (NOT DETECTED); HepC Viral Load <15 NOT DETECTED IU/mL (NOT DETECTED)
== END 2022-10-09 14:19 | disposition home or self-care (01) | DRG 817 ==
LOC: HO.ED 03:36 → HO.EDOVER 03:50 → HO.S3 08:36
PROVIDERS: Admitting Provider Internal Medicine; Emergency Provider Emergency Medicine Emergency Medical Services; PCP Nurse Practitioner; Visit Provider Family Medicine
DX: T43.292A Poisoning by other antidepressants, intentional self-harm, initial encounter (principal); F33.2 Major depressive disorder, recurrent severe without psychotic features; F11.20 Opioid dependence, uncomplicated; F10.239 Alcohol dependence with withdrawal, unspecified; F14.10 Cocaine abuse, uncomplicated; F43.12 Post-traumatic stress disorder, chronic; F17.210 Nicotine dependence, cigarettes, uncomplicated; Z71.6 Tobacco abuse counseling; Z79.899 Other long term (current) drug therapy
CPT/HCPCS: 36415; 80048; 80053; 80143; 80179; 80307; 81003; 83735; 85025; 85027; 86704; 86706; 86803; 87340; 87389; 87522; 92950; 93005; 99285; J1200; J1650; J2060; S9485

== ENCOUNTER 2022-10-29 14:43 | Inpatient (IN) | payer MEDICAID, OTHER, SELFPAY ==
[2022-10-29 14:48] VITALS: BP 140/70; PULSE 98; RESP 18; TEMP 37; O2SAT 97; BMI 28.5
--- NOTE | 2022-10-29 14:49 | ED_ITS ---
HPI - Psych General Chief Complaint: Psychiatric Symptoms Stated Complaint: Crisis/SI Time Seen by Provider: 10/29/22 15:09 Source: patient Mode of arrival: ambulatory Limitations: no limitations History of Present Illness HPI Narrative: Patient is a 52 year old assigned male at with a history of alcohol use di sorder, opioid use disorder, and multiple suicide attempts presenting to the emergency department today with suicidal ideation. Patient states that he witnessed a friend seizing today and that caused him to have worsening thoughts of suicide. Patient denies any dizziness, lightheadedness, abdominal pain, nausea, vomiting, fever, chills, blurry vision, double vision, loss of vision, chest pain, difficulty breathing, shortness of breath, back pain, night sweats, pain with urination, increased urinary frequency, increased urinary urgency, blood in his urine or stool, syncope or a near syncopal episode, recent trauma or falls, bowel incontinence, bladder incontinence, bowel retention, bladder re tention, or any other complaints at this time. MD complaint: suicidal ideation and feels depressed History of same: Yes Relieving factors: none Exacerbating factors: none Context: recent alcohol abuse and recent drug abuse Associated psychiatric symptoms: depression and suicidal ideation Associated symptoms: denies other symptoms Treatments prior to arrival: none If self harm: has plan Related Data Home Medications Medication Instructions Recorded Confirmed gabapentin 800 mg tablet 800 mg PO TID 10/07/22 10/07/22 methylphenidate HCl 20 mg tablet 20 mg PO BID@0900,1300 10/07/22 10/07/22 multivitamin with folic acid 400 1 tab PO DAILY 10/07/22 10/07/22 mcg tablet (Tab-A-Tony) trazodone 50 mg tablet 50 mg PO BEDTIME 10/07/22 10/07/22 zolpidem 10 mg tablet 10 mg PO BEDTIME PRN Insomnia 10/07/22 10/07/22 Wellbutrin XL 300 mg PO DAILY 10/29/22 10/29/22 Previous Rx's Medication Instructions Recorded metronidazole 0.75 % topical gel 1 appl topical BID 30 days #45 06/10/22 grams nicotine 21 mg/24 hr daily 21 mg transdermal DAILY 28 days 06/10/22 transdermal patch #28 ea polyethylene glycol 3350 17 gram 17 g PO DAILY PRN Constipation 30 06/10/22 oral powder packet days #30 ea prazosin 2 mg capsule 4 mg PO BEDTIME 30 days #60 caps 06/10/22 buprenorphine 8 mg-naloxone 2 mg 1 film sublingual TID #42 ea 09/24/22 sublingual film (Suboxone) folic acid 1 mg tablet 1 mg PO DAILY #30 tabs 10/08/22 thiamine mononitrate (vit B1) 100 100 mg PO DAILY #30 tabs 10/08/22 mg tablet lorazepam 1 mg tablet 1 mg PO BID PRN alcohol withdrawal 10/09/22 #6 tabs Allergies Allergy/AdvReac Type Severity Reaction Status Date / Time ketamine AdvReac Severe Agitated Verified 10/29/22 15:22 phenobarbital AdvReac Vomiting Verified 10/29/22 15:22 Review of Systems Constitutional: Constitutional: Reports no additional constitutional complaints, Denies chills, Denies fever(s) and Denies night sweats Eyes: Eyes: Reports no additional eye complaints, Denies blurry vision, Denies change in vision, Denies diplopia, Denies eye discharge, Denies loss of vision and Denies eye pain ENT: Denies dizziness Cardiovascular: Cardiovascular: Reports no additional cardiovascular compl aints, Denies chest pain, Denies lightheadedness, Denies Loss of Consciousness and Denies dyspnea Respiratory: Respiratory: Reports no additional respiratory complaints and Denies dyspnea Gastrointestinal: Gastrointestinal: Reports no additional gastrointestinal complaints, Denies abdominal pain, Denies melena, Denies hematochezia, Denies change in bowel habits and Denies change in stool character Genitourinary: Genitourinary: Reports no additional male genitourinary complaints, Denies hematuria, Denies oliguria, Denies difficulty urinating, Denies dysuria, Denies urinary frequency, Denies urinary hesitancy, Denies urinary incontinence and Denies urinary urgency Musculoskeletal: Musculoskeletal: Reports no additional musculoskeletal complaints, Denies numbness and Denies tingling Neurologic: Denies dizziness, Denies loss of vision, Denies numbness and Denies tingling Psychiatric: Psychiatric: Reports no additional psychiatric complaints, Reports depression, Denies homicidal ideation and Reports suicidal ideation Endocrine: Endocrine: Reports no additional endocrine complaints Hematologic/Lymphatic: Hematologic/Lymphatic: Reports no additional hematologic/lymphatic complaints Allergic/Immunologic: Allergic/Immunologic: Reports no additional allergic/immunologic complaints PMFSH Past Medical History Attestation statement: The following information was validated with the patient. Source: old records reviewed and nursing notes reviewed Medical History Alcohol dependence Alcohol use disorder Anxiety Chronic post-traumatic stress disorder (PTSD) Depression EtOH dependence Hepatic steatosis Hepatitis C antibody positive in blood Incidental pulmonary nodule MDD (major depressive disorder), recurrent episode, severe Surgical History History of mandibular surgery Family History Family History Mother Diabetes mellitus Father Leukemia Social History Social History Household Members: None Household Members Other:: [facility] Housing: Homeless Housing Other:: [facility] Do you presently have visiting nurse or other home services: No Unable to assess alcohol history related to: Unknown Alcohol intake: current Alcohol intake frequency: holidays/special occasions only Alcohol type: beer and hard liquor Patient Tobacco Use Status: Current everyday Tobacco user Tobacco use type: Cigarette Cigarette Packs Per Day: 0.5 Cigarettes Per Day: 12 Years Smoked: 10+ e-Cigarette/Vaping Use: Never Used Second Hand Smoke Exposure: No Substance Use Type: Amphetamines and Crack/Cocaine service: No Current occupational status: unemployed Sexual orientation: Straight/Heterosexual Physical Exam Vital Signs: Vital Signs: Last Vital Signs Temp 98.6 F 10/29/22 14:48 Pulse 98 10/29/22 14:48 Resp 18 10/29/22 14:48 BP 140/70 H 10/29/22 14:48 Pulse Ox 97 10/29/22 14:48 O2 Del Method Room Air 10/29/22 14:48 BMI result Body Mass Index 28.5 Const: General: cooperative, no acute distress, alert and awake Nutritional Appearance: well nourished Orientation/consciousness: patient oriented x3 Limitations: no limitations HEENT: Head: Yes normal to inspection and Yes atraumatic Ears: hearing grossly normal bilaterally and external ears normal General nose exam: Normal external nose present, no nasal discharge noted and no epistaxis Face and sinus: Yes normal facial exam, No abrasion and No laceration Mouth: Normal oral and palatal mucosa present, no drooling and no muffled voice Eyes: General: appearance normal, both eyes and all related structures Periorbital: periorbital findings normal Eyelids: Yes eyelids normal Conjunctivae: conjunctivae normal Pupils: Equal, round and reactive pupils present EOM: EOMs intact bilaterally Neck: Neck: Yes normal visual inspection, Yes full ROM and Yes no lymphadenopathy Chest: Chest palpation & inspection: normal inspection of the chest Resp: Effort & Inspection: normal respiratory effort and able to speak in complete sentences Auscultation: clear to auscultation bilaterally Cardio: Rate: regular rate Rhythm: regular rhythm GI: Inspection: Yes normal to inspection Neuro: General: patient oriented x3 and moves all extremities Cranial nerves: Yes Equal, round and reactive pupils present Cognition (Neuro): normal cognition Motor exam (neuro): 5/5 motor strength present throughout Sensory Exam: Normal double simultaneous stimulation for sensation Coordination: [id number] test normal Extrem: General: Yes normal to inspection, Yes full ROM and Yes capillary refill normal Psych: Appearance: grossly normal Mental Status: mental status grossly normal Speech and movement: Normal speech and movement present Affect: Sad affect present Attitude: cooperative Thought process: Normal thought process present Thought content: Suicidality present Course Course Course Narrative: RME - 52 yo male with history of alcohol use disorder, opiod use disorder, multiple suicide attempts in the past who presents to the ER for evaluation of suicidal ideation, depression x3-4 days trying to cut back on drinking. Plan to OD on pills. Witnessed friend having a seizure today which exacerbated things and triggered him. Last used ETOH today, +cocaine today. Plan: medical clearance and then crisis evaluation Medical Decision Making Medical Decision Making [facility] Narrative: Patient is a 52 year old assigned male at with a history of alcohol use disorder, opioid use disorder, and multiple suicide attempts presenting to the emergency department today with suicidal ideation. Patient's physical exam was unremarkable. Patient's blood work so far is unremarkable. Patient's EKG was unremarkable. I explained my physical exam findings as well as all test completed results to the patient. I answered all questions asked by the patient. Patient is currently awaiting CARE team evaulation. Differential Diagnosis Differential Diagnoses: The differential diagnosis associated with the presentation includes alcohol intoxication, suicidal ideation, depression Admission/Observation Consideration of admission/observation: Escalation of care including admission/observation considered Pending CARE team evaluation, patient may qualify for psychiatric admission. Lab Data [facility] Lab Attestation statement: I reviewed the patient's lab results. 10/29/22 15:28 10/29/22 15:28 Labs: Lab Results 10/29/22 10/29/22 10/29/22 Range/Units 15:13 15:13 15:13 Sodium (135-145) mmol/L Potassium (3.3-5.1) mmol/L Chloride (96-108) mmol/L Carbon Dioxide (22-29) mmol/L Anion Gap (12-20) BUN (9-16) mg/dL Creatinine (0.5-1.4) mg/dL Estim Creat Clear Calc Estimated GFR Random Glucose (60-115) mg/dL Calcium (8.4-10.2) mg/dL Magnesium (1.6-2.6) mg/dL Total Bilirubin (0.0-1.0) mg/dL Direct Bilirubin (0.0-0.5) mg/dL AST (5-37) U/L ALT (0-40) U/L Alkaline Phosphatase (39-117) U/L Total Protein (6.5-8.0) g/dL Albumin (3.5-5.0) g/dL Urine Color Yellow Urine Appearance Clear Urine pH 5.5 (5.0-9.0) Ur Specific [place] >= 1.030 H (1.005-1.025) Urine Protein Negative (Neg-Trace) mg/dL Urine Glucose (UA) Negative (Negative) mg/dL Urine Ketones 15 (Negative) mg/dL Urine Blood Negative (Negative) Urine Nitrite Negative (Negative) Ur Leukocyte Esterase Negative (Negative) Urine Opiates Screen Not Detected (Not Detect) Urine Fentanyl Screen Not Detected (Not Detect) Ur Barbiturates Screen Not Detected (Not Detect) Ur Phencyclidine Scrn Not Detected (Not Detect) Ur Amphetamines Screen POSITIVE H (Not Detect) U Benzodiazepines Scrn Not Detected (Not Detect) Urine Cocaine Screen POSITIVE H (Not Detect) U Marijuana (THC) Screen Not Detected (Not Detect) Ethyl Alcohol mg/dL COVID-19 (LINK) Negative (Negative) COVID-19 Clin Com See Note 10/29/22 Range/Units 15:28 Sodium 142 (135-145) mmol/L Potassium 3.7 (3.3-5.1) mmol/L Chloride 107 (96-108) mmol/L Carbon Dioxide 25 (22-29) mmol/L Anion Gap 14 (12-20) BUN 24 H (9-16) mg/dL Creatinine 1.04 (0.5-1.4) mg/dL Estim Creat Clear Calc 102.4 Estimated GFR > 60 Random Glucose 92 (60-115) mg/dL Calcium 9.2 (8.4-10.2) mg/dL Magnesium 2.4 (1.6-2.6) mg/dL Total Bilirubin 1.0 (0.0-1.0) mg/dL Direct Bilirubin 0.3 (0.0-0.5) mg/dL AST 155 H (5-37) U/L ALT 66 H (0-40) U/L Alkaline Phosphatase 73 (39-117) U/L Total Protein 6.7 (6.5-8.0) g/dL Albumin 4.4 (3.5-5.0) g/dL Urine Color Urine Appearance Urine pH (5.0-9.0) Ur Specific [place] (1.005-1.025) Urine Protein (Neg-Trace) mg/dL Urine Glucose (UA) (Negative) mg/dL Urine Ketones (Negative) mg/dL Urine Blood (Negative) Urine Nitrite (Negative) Ur Leukocyte Esterase (Negative) Urine Opiates Screen (Not Detect) Urine Fentanyl Screen (Not Detect) Ur Barbiturates Screen (Not Detect) Ur Phencyclidine Scrn (Not Detect) Ur Amphetamines Screen (Not Detect) U Benzodiazepines Scrn (Not Detect) Urine Cocaine Screen (Not Detect) U Marijuana (THC) Screen (Not Detect) Ethyl Alcohol < 10 mg/dL COVID-19 (LINK) (Negative) COVID-19 Clin Com Independent Interpretation I performed an independent interpretation of an: EKG Interpretation: Vent. Rate: 070 BPM ? ? Atrial Rate: 070 BPM P-R Int: 138 ms? QRS Dur: 090 ms QT Int: 408 ms ? ? ? P-R-T Axes: 055 041 046 degrees QTc Int: 440 ms ? Normal sinus rhythm with sinus arrhythmia Normal ECG When compared with ECG of 07-OCT-2022 14:43, No significant change was found ? Electronically Signed By:Dario Pratt Dictated By: Dario Pratt MD Signed By: Electronically signed by Dario Pratt MD 10/08/221947 Discharge Plan Discharge Clinical Impression: MDD (major depressive disorder), recurrent episode, severe, Alcohol use disorder Prescriptions: No Action prazosin 2 mg capsule 4 mg PO BEDTIME 30 Days Qty: 60 0RF polyethylene glycol 3350 17 gram Powder In Packet 17 g PO DAILY PRN (Reason: Constipation) 30 Days Qty: 30 0RF nicotine 21 mg/24 hr Patch 24 Hour 21 mg transdermal DAILY 28 Days Qty: 28 0RF Rx Instructions: remove at bedtime metronidazole 0.75 % Gel 1 appl topical BID 30 Days Qty: 45 0RF multivitamin with folic acid [Tab-A-Tony] 400 mcg tablet 1 tab PO DAILY gabapentin 800 mg tablet 800 mg PO TID methylphenidate HCl 20 mg Tablet 20 mg PO BID@0900,1300 trazodone 50 mg tablet 50 mg PO BEDTIME zolpidem 10 mg Tablet 10 mg PO BEDTIME PRN (Reason: Insomnia) folic acid 1 mg Tablet 1 mg PO DAILY Qty: 30 0RF thiamine mononitrate (vit B1) 100 mg Tablet 100 mg PO DAILY Qty: 30 0RF lorazepam 1 mg tablet 1 mg PO BID PRN (Reason: alcohol withdrawal) Qty: 6 0RF buprenorphine-naloxone [Suboxone] 8-2 mg film 1 film sublingual TID Qty: 42 0RF Rx Instructions: [facility] Last fill 09/24/22 Interventions: [place]-Suicide Risk Severity Scale Last Done: 10/29/22 15:17
[2022-10-29 15:21] LABS: Appearance Urine Clear; Color Urine Yellow; Glucose Urine UA Negative (Negative); Leukocyte Esterase Urine Negative (Negative); Nitrite Urine Negative (Negative); PH 5.5 (5.0-9.0); Specific Gravity - Urine >= 1.030 (1.005-1.025); Urine Blood Negative (Negative); Urine Ketones 15 mg/dL (Negative); Urine Protein Negative (Neg-Trace)
[2022-10-29 15:31] LABS: Amphetamine Screen Urine POSITIVE (Not Detect); Barbiturates, Urine Not Detected (Not Detect); Benzodiazepines Screen Urine Not Detected (Not Detect); Cannabinoid Screen Urine Not Detected (Not Detect); Cocaine Screen Urine POSITIVE (Not Detect); Fentanyl, urine Not Detected (Not Detect); Opiate Screen Urine Not Detected (Not Detect); Phencyclidine Screen Urine Not Detected (Not Detect)
[2022-10-29 15:35] LABS: COVID-19 Test Negative (Negative); IDNOW Serial# 9DB6401D
[2022-10-29 15:35] LABS: MANUAL DIFF FLAG NO
[2022-10-29 15:50] LABS: Basophils Absolute Auto 0.1 X10*3/uL (0.0-0.2); Basophils Percent Auto 0.6 % (0-2); Eosinophils Percent Auto 0.3 % (0-4); Hematocrit 37.4 % (42.0-52.0); Hemoglobin 12.6 g/dl (14.0-18.0); Imm Gran Abs Auto 0.04 X10*3/uL (0.00-0.03); Imm Gran Pct Auto 0.4 % (0.0-0.4); Lymphocytes Absolute Auto 1.7 X10*3/uL (1.2-4.9); Lymphocytes Percent Auto 16.6 % (20-40); Mean Corpuscular HGB Conc 33.7 g/dl (31.0-36.0); Mean Corpuscular Hemoglobin 29.8 pg (27.0-33.0); Mean Corpuscular Volume 88.4 fL (80.0-98.0); Mean Platelet Volume 10.2 fL (9.4-12.4); Monocytes Percent Auto 9.8 % (2-11); Neutrophils Absolute Auto 7.2 x10*3/uL (2.0-8.3); Neutrophils Percent Auto 72.3 % (45-73); Platelet Count 246 X10*3/uL (160-400); Red Blood Count 4.23 X10*6/uL (4.60-5.80); Red Cell Distribution Width 13.8 % (11.0-16.0)
[2022-10-29 15:57] LABS: Alanine Aminotransferase 66 U/L (0-40); Albumin Level 4.4 g/dL (3.5-5.0); Alkaline Phosphatase 73 U/L (39-117); Anion Gap 14 (12-20); Aspartate Amino Transferase 155 U/L (5-37); Bilirubin Direct 0.3 mg/dL (0.0-0.5); Blood Urea Nitrogen 24 mg/dL (9-16); Calcium 9.2 mg/dL (8.4-10.2); Carbon Dioxide 25 mmol/L (22-29); Chloride 107 mmol/L (96-108); Creatinine Clr Calc Pharmacy 102.4; Estimated Glomerular Filt Rate > 60; Ethanol < 10 mg/dL; Glucose Random 92 mg/dL (60-115); Magnesium 2.4 mg/dL (1.6-2.6); Potassium 3.7 mmol/L (3.3-5.1); Sodium 142 mmol/L (135-145); Total Protein 6.7 g/dL (6.5-8.0)
[2022-10-29] MEDS: LORazepam 1 MG TABLET 2 MG PO (18:29)
[2022-10-29 22:15] VITALS: BP 127/55; PULSE 80; TEMP 36.5; O2SAT 96
[2022-10-30] MEDS: LORazepam 1 MG TABLET 2 MG PO ×5 (00:09→20:38)
[2022-10-30 00:15] VITALS: BP 123/72; PULSE 82; RESP 17; TEMP 36.6; O2SAT 97
--- NOTE | 2022-10-30 05:56 | PC.NURSE ---
Patient slept through the night, no distress observed/reported, disposition per care team is section 12 inpatient bed search, med rec completed/approved/MAR active, PRN Ativan 2 mg PO administered at 0051 + effect, behavior non concerning but unpredictable due to labile affect, will continue to monitor.
[2022-10-30 07:32] VITALS: BP 132/76; PULSE 90; RESP 19; TEMP 36.2; O2SAT 97
[2022-10-30] MEDS: Nicotine 21 MG PATCH.TD24 TRANSDERMA (07:37)
[2022-10-30] MEDS: chlorproMAZINE HCl 25 MG TABLET PO (07:38)
[2022-10-30] MEDS: buPROPion HCl XL 300 MG TAB.ER.24H PO (07:38)
[2022-10-30] MEDS: Ferrous Sulfate 324 MG TABLET.DR PO ×3 (07:38→20:38)
[2022-10-30] MEDS: Multivitamin TABLET 1 TAB PO (07:38)
[2022-10-30] MEDS: Folic Acid 1 MG TABLET PO (07:38)
[2022-10-30] MEDS: Gabapentin 400 MG CAPSULE 800 MG PO ×3 (07:38→20:38)
[2022-10-30] MEDS: Thiamine HCL 100 MG TABLET PO (07:39)
[2022-10-30] MEDS: Buprenorphine/Naloxone 8/2 mg FILM 1 FILM SUBLINGUAL ×3 (07:39→17:47)
--- NOTE | 2022-10-30 07:43 | PC.NURSE ---
PT IS A/O X 4 NO SOB/HASEEB NOTED SPEAKS IN FULL SENTENCES. PT AMB (I) GAIT STEADY TO THE BATHROOM AND TO THE NURSE'S STATION. PT IS REQUESTING ATIVAN. C/O ANXIETY/RESTLESSNESS. CIWA SCALE - 13. PT MED APPROPRIATE. PT AWARE OF PLAN OF CARE.
[2022-10-30] MEDS: Methylphenidate HCl 10 MG TABLET 20 MG PO ×2 (08:08→13:19)
[2022-10-30] MEDS: metroNIDAZOLE 0.75 % Gel 45 GM TUBE 1 APPL TOPICAL ×2 (08:38→20:37)
--- NOTE | 2022-10-30 10:25 | ECG_ITS ---
Test Reason : Psych Medication /Admission Blood Pressure : / mmHG Vent. Rate : 075 BPM Atrial Rate : 075 BPM P-R Int : 132 ms QRS Dur : 098 ms QT Int : 428 ms P-R-T Axes : 058 030 046 degrees QTc Int : 477 ms Normal sinus rhythm Normal ECG When compared with ECG of 08-OCT-2022 08:02, No significant change was found Referred By: Shy Bautista Electronically Signed By:Dario Pratt
[2022-10-30] MEDS: Cyclobenzaprine HCl 10 MG TABLET PO ×2 (13:25→20:40)
[2022-10-30 14:30] VITALS: BP 132/72; PULSE 90; RESP 14; TEMP 36.4; O2SAT 99
--- NOTE | 2022-10-30 14:37 | PC.NURSE ---
RN TO RN REPORT GIVEN TO BK. PT AWARE OF PLAN OF CARE FOR TRANSFER TO M3.
--- NOTE | 2022-10-30 17:04 | PC.ADMIT ---
Cam is a 52-year-old male admitted from [facility] to M3 10/30/22 at 1610 on a CV for treatment of MDD, cocaine use disorder, alcohol use disorder. Tox screen positive for cocaine and amphetamines. Pt is on a CIWA Q4H, last drink was a few pints of liquor yesterday at 11am. Pt smokes 1/2 PPD cigarettes daily and is interested in nicotine replacement. Pt presented to the ED for suicidal ideation after witnessing a friend have a seizure. Pt is alert, oriented and cooperative. Mood is depressed with flat affect, thought process linear. Medical problems include chronic right hip pain and blisters on bilateral feet from walking. Pt endorses vague SI but denies plan while on the unit. Pt denies HI/AH/VH and feels safe on the unit.
[2022-10-30 20:20] VITALS: BP 150/86; PULSE 93; RESP 16; TEMP 36.6; O2SAT 96
[2022-10-30] MEDS: Prazosin HCL 1 MG CAPSULE 4 MG PO (20:37)
[2022-10-30] MEDS: Zolpidem Tartrate 5 MG TABLET PO (21:04)
--- NOTE | 2022-10-30 22:23 | PC.NURSE ---
Cam is admitted to [facility] for safety, medication management and safety, diagnosis depression. This evening he was observed to be visible in the milieu, isolating, receptive to 1:1 engagement, adherent with prescribed meds, CIWA 15, requested tomyien at , informed med was discontinued which he became irritated, Why and who stopped it? I have been taking that before I came here and I need it. Don't you people check records to see what I've been taking? TW communicated issue with Dr. Robbins and med re-ordered, Cam states he will discuss his meds with providers tomorrow. He apologized for his irritation as he realizes, I know it's not your fault. POC as outlined, 15 min unit safety observation.
[2022-10-31 07:00] VITALS: BMI 28.2
[2022-10-31] MEDS: Ferrous Sulfate 324 MG TABLET.DR PO ×2 (08:18→14:08)
[2022-10-31] MEDS: Multivitamin TABLET 1 TAB PO (08:19)
[2022-10-31] MEDS: buPROPion HCl XL 300 MG TAB.ER.24H PO (08:19)
[2022-10-31] MEDS: Thiamine HCL 100 MG TABLET PO (08:19)
[2022-10-31 08:20] VITALS: BP 123/71; PULSE 78; RESP 18; TEMP 36.6; O2SAT 98
[2022-10-31] MEDS: Gabapentin 400 MG CAPSULE 800 MG PO ×3 (08:21→20:43)
[2022-10-31] MEDS: Folic Acid 1 MG TABLET PO (08:21)
[2022-10-31] MEDS: LORazepam 1 MG TABLET 2 MG PO ×4 (08:21→20:44)
[2022-10-31] MEDS: Buprenorphine/Naloxone 8/2 mg FILM 1 FILM SUBLINGUAL ×3 (08:22→16:29)
[2022-10-31] MEDS: Nicotine 21 MG PATCH.TD24 TRANSDERMA (08:23)
[2022-10-31 09:15] LABS: Estimated Average Glucose 94 mg/dL; Hemoglobin A1c % 4.9 %
[2022-10-31 09:26] LABS: Alanine Aminotransferase 66 U/L (0-40); Albumin Level 3.7 g/dL (3.5-5.0); Alkaline Phosphatase 69 U/L (39-117); Anion Gap 12 (12-20); Aspartate Amino Transferase 65 U/L (5-37); Bilirubin Total 0.4 mg/dL (0.0-1.0); Blood Urea Nitrogen 10 mg/dL (9-16); Calcium 8.7 mg/dL (8.4-10.2); Carbon Dioxide 24 mmol/L (22-29); Chloride 111 mmol/L (96-108); Cholesterol 152 mg/dL; Creatinine Clr Calc Pharmacy 123.8; Estimated Glomerular Filt Rate > 60; Glucose Fasting 90 mg/dL (60-99); HDL Cholesterol 41 mg/dL; LDL Cholesterol Calculated 87 mg/dl; Potassium 4.4 mmol/L (3.3-5.1); Sodium 143 mmol/L (135-145); Triglycerides 121 mg/dL
[2022-10-31 09:55] LABS: Free T4 (Free Thyroxine) 1.07 ng/dL (0.71-1.85); Thyroid Stimulating Hormone 1.97 uIU/mL (0.32-4.0); Vitamin B12 360 pg/mL (200-900)
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
[2022-10-31] MEDS: Cyclobenzaprine HCl 10 MG TABLET PO ×2 (14:09→20:44)
[2022-10-31] MEDS: buPROPion HCl XL 150 MG TAB.ER.24H PO (14:09)
--- NOTE | 2022-10-31 15:09 | PM.EVENT ---
Event Note Date of Service: 10/31/22 Event Note: Patient is a 52-year-old male with a [facility] alcohol use disorder, opioid use disorder, cocaine use disorder, and multiple suicide attempts who is seen for evaluation of discolored toes on his left foot. Patient states that 2-3 days ago he began experiencing pain in his left toes with walking. Pain was better yesterday and today, but he noticed redness and swelling of first two digits of left foot today when he undressed. Has never had similar symptoms. Denies systemic symptoms: Fever, chills, nausea, vomiting. Patient notes that last time he used cocaine was 2 days ago right around the time that he began experiencing toe pain. Upon examination area of redness of distal aspect of first digit of left foot on dorsal aspect of digit and surrounding lateral, base, and medial aspects of toenail. Second digit of left foot with erythema and bulla at base of nail bed. See picture below Pedal pulses intact bilaterally. Capillary refill of 3rd-5th digits of left foot WNL. No signs of infection/cellulitis. Unclear etiology: Possibly cocaine induced peripheral vascular occlusive disease vs paronychia. Given that the patient's symptoms are improving and there is no indication of active infection/cellulitis, will hold off for now on either antibiotics or I and D and adopt a watchful waiting approach. Will check in with pt tomorrow to see how he is progressing. Time Spent With Patient Time: Total time managing care of this patient today ____ minutes.
[2022-10-31] MEDS: NaPROXEN 500 MG TABLET PO (16:29)
[2022-10-31 19:50] VITALS: BP 144/88; PULSE 85; RESP 16; TEMP 36.6; O2SAT 100
[2022-10-31] MEDS: metroNIDAZOLE 0.75 % Gel 45 GM TUBE 1 APPL TOPICAL (20:43)
[2022-10-31] MEDS: Prazosin HCL 1 MG CAPSULE 4 MG PO (20:43)
[2022-10-31] MEDS: Zolpidem Tartrate 5 MG TABLET PO (20:44)
[2022-11-01] MEDS: LORazepam 1 MG TABLET 2 MG PO ×5 (00:02→20:52)
[2022-11-01 08:43] VITALS: BP 132/83; PULSE 76; TEMP 36.6; O2SAT 98
[2022-11-01] MEDS: Nicotine 21 MG PATCH.TD24 TRANSDERMA (08:46)
[2022-11-01] MEDS: buPROPion HCl XL 150 MG TAB.ER.24H 450 MG PO (08:46)
[2022-11-01] MEDS: NaPROXEN 500 MG TABLET PO ×2 (08:46→16:38)
[2022-11-01] MEDS: Ferrous Sulfate 324 MG TABLET.DR PO ×2 (08:46→14:55)
[2022-11-01] MEDS: Multivitamin TABLET 1 TAB PO (08:46)
[2022-11-01] MEDS: Buprenorphine/Naloxone 8/2 mg FILM 1 FILM SUBLINGUAL ×3 (08:46→16:38)
[2022-11-01] MEDS: Gabapentin 400 MG CAPSULE 800 MG PO ×3 (08:46→20:52)
[2022-11-01] MEDS: Folic Acid 1 MG TABLET PO (08:47)
[2022-11-01] MEDS: metroNIDAZOLE 0.75 % Gel 45 GM TUBE 1 APPL TOPICAL (08:47)
[2022-11-01] MEDS: Cyclobenzaprine HCl 10 MG TABLET PO ×3 (08:47→20:55)
[2022-11-01] MEDS: Thiamine HCL 100 MG TABLET PO (08:47)
[2022-11-01] MEDS: Acetaminophen 325 MG TABLET 650 MG PO (14:55)
--- NOTE | 2022-11-01 15:53 | HO.PSYCHPN ---
Subjective Subjective Date of Service: 11/01/22 Reason For Visit: SI/Depression Interim History: calm, cooperative. reporting sweats, ALBRIGHT, nausea. reviewed he had 10 mg ativan yesterday, taper discussed. per staff, increased anx/dep. needs hip surgery but can't stay sober long enough for them to do it. isolative, in bed. scoring 14-15 on CIWA. got 10 mg ativan yesterday. Mental Status Exam Mental Status Exam Narrative: Appearance: casually groomed, fair hygiene in NAD Behavior:cooperative psychomotor: no agitation or retardation noted Speech:clear, normal rate/rhythm/volume, spontaneous Thought process: linear Thought content:no signs of psychosis, future oriented looking forward to do CSS Mood: better Affect: brighter, non labile, congruent SI:none HI:none VH/AH:none Delusions:none Insight/judgment:fair x 2. Memory/cog: alert, oriented x 3. grossly intact to conversational testing. Diagnostics Vital Signs (24Hr): Vital Signs - 24 hr 10/31/22 19:50 11/01/22 08:43 Temperature 97.8 F 97.8 F Pulse Rate 85 76 Respiratory Rate 16 Blood Pressure 144/88 H 132/83 Pulse Oximetry 100 98 Oxygen Delivery Method Room Air Room Air BMI result Body Mass Index 28.2 Labs 10/29/22 15:28 10/31/22 08:51 Labs: Laboratory Results - last 48 hr 10/31/22 10/31/22 08:51 08:51 Sodium 143 Potassium 4.4 Chloride 111 H Carbon Dioxide 24 Anion Gap 12 BUN 10 Creatinine 0.86 Estim Creat Clear Calc 123.8 Estimated GFR > 60 Fasting Glucose 90 Estimat Average Glucose 94 Hemoglobin A1c % 4.9 Calcium 8.7 Total Bilirubin 0.4 AST 65 H ALT 66 H Alkaline Phosphatase 69 Total Protein 6.0 L Albumin 3.7 Triglycerides 121 Cholesterol 152 LDL Cholesterol, Calc 87 HDL Cholesterol 41 Vitamin B12 360 Folate 18.0 TSH 1.97 Free T4 1.07 Medications Medications Current Medications Acetaminophen (Acetaminophen 325 Mg Tablet) 650 mg PO Q6H PRN PRN Reason: Headache/Pain Mild Scale (1-3) Last Admin: 11/01/22 14:55 Dose: 650 mg Al Hydroxide/Mg Hydroxide (Magnesium Hydrox/Alum Hydrox 30 Ml Oral.Susp) 30 ml PO Q6H PRN PRN Reason: Heartburn/Nausea Buprenorphine/Naloxone (Buprenorphine/Naloxone 8/2 Mg Film) 1 film SUBLINGUAL TID@0800,1200,1700 [facility] Last Admin: 11/01/22 11:21 Dose: 1 film Bupropion HCl (Bupropion Hcl Xl 150 Mg Tab.Er.24h) 450 mg PO DAILY [facility] Last Admin: 11/01/22 08:46 Dose: 450 mg Chlorpromazine HCl (Chlorpromazine Hcl 25 Mg Tablet) 25 mg PO Q6H PRN PRN Reason: Anxiety Cyclobenzaprine HCl (Cyclobenzaprine Hcl 10 Mg Tablet) 10 mg PO TID [facility] Last Admin: 11/01/22 14:54 Dose: 10 mg Ferrous Sulfate (Ferrous Sulfate 324 Mg Tablet.Dr) 324 mg PO TID [facility] Last Admin: 11/01/22 14:55 Dose: 324 mg Folic Acid (Folic Acid 1 Mg Tablet) 1 mg PO DAILY [facility] Last Admin: 11/01/22 08:47 Dose: 1 mg Gabapentin (Gabapentin 400 Mg Capsule) 800 mg PO TID [facility] Last Admin: 11/01/22 14:54 Dose: 800 mg Lorazepam (Lorazepam 1 Mg Tablet) 2 mg PO BID@1700,2100 [facility] Stop: 11/01/22 21:01 Lorazepam (Lorazepam 1 Mg Tablet) 2 mg PO TID [facility] Stop: 11/02/22 21:01 Lorazepam (Lorazepam 1 Mg Tablet) 1 mg PO QID [facility] Stop: 11/03/22 21:01 Lorazepam (Lorazepam 1 Mg Tablet) 1 mg PO BID [facility] Stop: 11/05/22 09:01 Magnesium Hydroxide (Milk Of Magnesia 30 Ml Oral.Susp) 30 ml PO DAILY PRN PRN Reason: Constipation Metronidazole (Metronidazole 0.75 % Gel 45 Gm Tube) 1 appl TOPICAL BID [facility] Last Admin: 11/01/22 08:47 Dose: 1 appl Multivitamins/Vitamin C (Multivitamin Tablet) 1 tab PO DAILY [facility] Last Admin: 11/01/22 08:46 Dose: 1 tab Naproxen (Naproxen 500 Mg Tablet) 500 mg PO BIDWM [facility] Last Admin: 11/01/22 08:46 Dose: 500 mg Nicotine (Nicotine 21 Mg Patch.Td24) 21 mg TRANSDERMA DAILY [facility] Last Admin: 11/01/22 08:46 Dose: 21 mg Nicotine Polacrilex (Nicotine Polacrilex 2 Mg Gum) 4 mg BUCCAL Q2H PRN PRN Reason: Nicotine Cravings Prazosin HCl (Prazosin Hcl 1 Mg Capsule) 4 mg PO BEDTIME FOUZIA; Protocol Last Admin: 10/31/22 20:43 Dose: 4 mg Thiamine HCl (Thiamine Hcl 100 Mg Tablet) 100 mg PO DAILY [facility] Last Admin: 11/01/22 08:47 Dose: 100 mg Trazodone HCl (Trazodone Hcl 100 Mg Tablet) 100 mg PO BEDTIME PRN PRN Reason: Insomnia Zolpidem Tartrate (Zolpidem Tartrate 5 Mg Tablet) 5 mg PO BEDTIME FOUZIA Last Admin: 10/31/22 20:44 Dose: 5 mg Allergies Allergies Allergy/AdvReac Type Severity Reaction Status Date / Time ketamine AdvReac Severe Agitated Verified 10/29/22 15:22 phenobarbital AdvReac Vomiting Verified 10/29/22 15:22 Assessment & Plan Assessment & Plan (1) MDD (major depressive disorder), recurrent episode, severe: Status: Acute Code(s): F33.2 - Major depressive disorder, recurrent severe without psychotic features (2) Chronic post-traumatic stress disorder (PTSD): Status: Acute Code(s): F43.12 - Post-traumatic stress disorder, chronic (3) Alcohol use disorder: Status: Chronic (4) Opioid use disorder: Status: Chronic Code(s): F11.99 - Opioid use, unspecified with unspecified opioid-induced disorder (5) Cocaine use disorder, moderate, dependence: Status: Acute Code(s): F14.20 - Cocaine dependence, uncomplicated Plan Mr. Narvaez is a 52 year-old male with hx of MDD, alcohol use disorder (active), opioid use disorder in early remission on suboxone, cocaine use (active) who self presented to [facility] reporting increased depression, suicidal ideation in context of recent trigger of seeing person having seizure, excruciating hip pain awaiting surgery which he can't have unless he has about 6 months of sobriety. Pt reports he wants to step down to residential substance use treatment. We discussed risks, benefit and alternative treatment options. Pt has always reported wellbutrin has been most effective antidepressant, he would like to continue it. We discussed continuing ambien but understand follow up rx comes from outpatient provider who better assessed risks versus benefit of being on controlled substances while continue to work on his recovery. 10/31: Increase wellbutrin xr to 450mg, which is what he has been on for a while. continue ciwa for alcohol use disorder. 11/01: had 10 mg ativan yesterday, will structure taper at 20% per day over next 4 days. DC CIWA protocol. Reason for continued inpatient stay Substantial Risk for: harm to self, inability to function and rapid decompensation Time Spent With Patient Time: Total time managing care of this patient today __25__ minutes.
[2022-11-01 20:50] VITALS: BP 142/84; PULSE 74; RESP 18; TEMP 36.4; O2SAT 99
[2022-11-01] MEDS: Zolpidem Tartrate 5 MG TABLET PO (20:54)
[2022-11-01] MEDS: Prazosin HCL 1 MG CAPSULE 4 MG PO (20:54)
[2022-11-01] MEDS: chlorproMAZINE HCl 25 MG TABLET PO (20:55)
[2022-11-02 06:00] VITALS: BP 140/84; PULSE 82; RESP 18; TEMP 36.4; O2SAT 99
[2022-11-02] MEDS: buPROPion HCl XL 150 MG TAB.ER.24H 450 MG PO (08:37)
[2022-11-02] MEDS: Nicotine 21 MG PATCH.TD24 TRANSDERMA (08:37)
[2022-11-02] MEDS: Buprenorphine/Naloxone 8/2 mg FILM 1 FILM SUBLINGUAL ×3 (08:37→17:15)
[2022-11-02] MEDS: NaPROXEN 500 MG TABLET PO (08:37)
[2022-11-02] MEDS: Gabapentin 400 MG CAPSULE 800 MG PO ×3 (08:38→20:49)
[2022-11-02] MEDS: Cyclobenzaprine HCl 10 MG TABLET PO ×3 (08:38→20:49)
[2022-11-02] MEDS: Multivitamin TABLET 1 TAB PO (08:38)
[2022-11-02] MEDS: LORazepam 1 MG TABLET 2 MG PO ×3 (08:38→20:49)
[2022-11-02] MEDS: Acetaminophen 325 MG TABLET 650 MG PO (08:38)
[2022-11-02] MEDS: Folic Acid 1 MG TABLET PO (08:39)
[2022-11-02] MEDS: Thiamine HCL 100 MG TABLET PO (08:39)
--- NOTE | 2022-11-02 09:16 | P.PNPSI_ITS ---
Subjective Subjective Date of Service: 11/02/22 Reason For Visit: SI/Depression Subjective Notes: Conditional Voluntary Interim History: Pt reports feeling more comfortable with alcohol withdrawal symptoms and ativan taper. He reports he slept fairly well. He asks for flonase, alternative to naproxen for his hip pain- we discussed switching to celebrex. He reports feeling less depressed, with episodes of intense anxiety at times, flashback from past trauma. Per nursing, pt visible on the unit, social with select peers. No behavioral concerns. Medication Compliance: Yes Side effects from medications: No Attending Groups: Intermittent Review of Systems Constitutional: Reports no additional constitutional complaints, Denies chills, Denies fever(s) and Denies night sweats Eyes: Reports no additional eye complaints, Denies blurry vision, Denies change in vision, Denies diplopia, Denies eye discharge, Denies loss of vision and Denies eye pain Denies dizziness Cardiovascular: Reports no additional cardiovascular complaints, Denies chest pain, Denies lightheadedness, Denies Loss of Consciousness and Denies dyspnea Respiratory: Reports no additional respiratory complaints and Denies dyspnea Gastrointestinal: Reports no additional gastrointestinal complaints, Denies abdominal pain, Denies melena, Denies hematochezia, Denies change in bowel habits and Denies change in stool character Genitourinary: Reports no additional male genitourinary complaints, Denies hematuria, Denies oliguria, Denies difficulty urinating, Denies dysuria, Denies urinary frequency, Denies urinary hesitancy, Denies urinary incontinence and Denies urinary urgency Musculoskeletal: Reports no additional musculoskeletal complaints, Denies numbness and Denies tingling Denies dizziness, Denies loss of vision, Denies numbness and Denies tingling Psychiatric: Reports no additional psychiatric complaints, Reports depression, Denies homicidal ideation and Reports suicidal ideation Endocrine: Reports no additional endocrine complaints Hematologic/Lymphatic: Reports no additional hematologic/lymphatic complaints Allergic/Immunologic: Reports no additional allergic/immunologic complaints Mental Status Exam Mental Status Exam Narrative: Appearance: casually groomed, fair hygiene in NAD Behavior:cooperative psychomotor: no agitation or retardation noted Speech:clear, normal rate/rhythm/volume, spontaneous Thought process: linear Thought content:no signs of psychosis, future oriented looking forward to do CSS Mood: better Affect: brighter, non labile, congruent SI:none HI:none VH/AH:none Delusions:none Insight/judgment:fair x 2. Memory/cog: alert, oriented x 3. grossly intact to conversational testing. Diagnostics Vital Signs (24Hr): Vital Signs - 24 hr 11/01/22 20:50 11/02/22 06:00 Temperature 97.6 F 97.6 F Pulse Rate 74 82 Respiratory Rate 18 18 Blood Pressure 142/84 H 140/84 H Pulse Oximetry 99 99 Oxygen Delivery Method Room Air Room Air BMI result Body Mass Index 28.2 Labs 10/29/22 15:28 10/31/22 08:51 Labs: Laboratory Results - last 48 hr 10/31/22 08:51 Sodium 143 Potassium 4.4 Chloride 111 H Carbon Dioxide 24 Anion Gap 12 BUN 10 Creatinine 0.86 Estim Creat Clear Calc 123.8 Estimated GFR > 60 Fasting Glucose 90 Calcium 8.7 Total Bilirubin 0.4 AST 65 H ALT 66 H Alkaline Phosphatase 69 Total Protein 6.0 L Albumin 3.7 Triglycerides 121 Cholesterol 152 LDL Cholesterol, Calc 87 HDL Cholesterol 41 Vitamin B12 360 Folate 18.0 TSH 1.97 Free T4 1.07 Medications Medications Current Medications Acetaminophen (Acetaminophen 325 Mg Tablet) 650 mg PO Q6H PRN PRN Reason: Headache/Pain Mild Scale (1-3) Last Admin: 11/02/22 08:38 Dose: 650 mg Al Hydroxide/Mg Hydroxide (Magnesium Hydrox/Alum Hydrox 30 Ml Oral.Susp) 30 ml PO Q6H PRN PRN Reason: Heartburn/Nausea Buprenorphine/Naloxone (Buprenorphine/Naloxone 8/2 Mg Film) 1 film SUBLINGUAL TID@0800,1200,1700 [facility] Last Admin: 11/02/22 08:37 Dose: 1 film Bupropion HCl (Bupropion Hcl Xl 150 Mg Tab.Er.24h) 450 mg PO DAILY [facility] Last Admin: 11/02/22 08:37 Dose: 450 mg Chlorpromazine HCl (Chlorpromazine Hcl 25 Mg Tablet) 25 mg PO Q6H PRN PRN Reason: Anxiety Last Admin: 11/01/22 20:55 Dose: 25 mg Cyclobenzaprine HCl (Cyclobenzaprine Hcl 10 Mg Tablet) 10 mg PO TID [facility] Last Admin: 11/02/22 08:38 Dose: 10 mg Ferrous Sulfate (Ferrous Sulfate 324 Mg Tablet.Dr) 324 mg PO TID [facility] Last Admin: 11/02/22 08:39 Dose: Not Given Folic Acid (Folic Acid 1 Mg Tablet) 1 mg PO DAILY [facility] Last Admin: 11/02/22 08:39 Dose: 1 mg Gabapentin (Gabapentin 400 Mg Capsule) 800 mg PO TID [facility] Last Admin: 11/02/22 08:38 Dose: 800 mg Lorazepam (Lorazepam 1 Mg Tablet) 2 mg PO TID [facility] Stop: 11/02/22 21:01 Last Admin: 11/02/22 08:38 Dose: 2 mg Lorazepam (Lorazepam 1 Mg Tablet) 1 mg PO QID [facility] Stop: 11/03/22 21:01 Lorazepam (Lorazepam 1 Mg Tablet) 1 mg PO BID [facility] Stop: 11/05/22 09:01 Magnesium Hydroxide (Milk Of Magnesia 30 Ml Oral.Susp) 30 ml PO DAILY PRN PRN Reason: Constipation Metronidazole (Metronidazole 0.75 % Gel 45 Gm Tube) 1 appl TOPICAL BID [facility] Last Admin: 11/02/22 08:39 Dose: Not Given Multivitamins/Vitamin C (Multivitamin Tablet) 1 tab PO DAILY [facility] Last Admin: 11/02/22 08:38 Dose: 1 tab Naproxen (Naproxen 500 Mg Tablet) 500 mg PO BIDWM [facility] Last Admin: 11/02/22 08:37 Dose: 500 mg Nicotine (Nicotine 21 Mg Patch.Td24) 21 mg TRANSDERMA DAILY [facility] Last Admin: 11/02/22 08:37 Dose: 21 mg Nicotine Polacrilex (Nicotine Polacrilex 2 Mg Gum) 4 mg BUCCAL Q2H PRN PRN Reason: Nicotine Cravings Prazosin HCl (Prazosin Hcl 1 Mg Capsule) 4 mg PO BEDTIME [facility]; Protocol Last Admin: 11/01/22 20:54 Dose: 4 mg Thiamine HCl (Thiamine Hcl 100 Mg Tablet) 100 mg PO DAILY [facility] Last Admin: 11/02/22 08:39 Dose: 100 mg Trazodone HCl (Trazodone Hcl 100 Mg Tablet) 100 mg PO BEDTIME PRN PRN Reason: Insomnia Zolpidem Tartrate (Zolpidem Tartrate 5 Mg Tablet) 5 mg PO BEDTIME [facility] Last Admin: 11/01/22 20:54 Dose: 5 mg Allergies Allergies Allergy/AdvReac Type Severity Reaction Status Date / Time ketamine AdvReac Severe Agitated Verified 10/29/22 15:22 phenobarbital AdvReac Vomiting Verified 10/29/22 15:22 Assessment & Plan Assessment & Plan (1) MDD (major depressive disorder), recurrent episode, severe: Status: Acute Code(s): F33.2 - Major depressive disorder, recurrent severe without psychotic features (2) Chronic post-traumatic stress disorder (PTSD): Status: Acute Code(s): F43.12 - Post-traumatic stress disorder, chronic (3) Alcohol use disorder: Status: Chronic (4) Opioid use disorder: Status: Chronic Code(s): F11.99 - Opioid use, unspecified with unspecified opioid-induced disorder (5) Cocaine use disorder, moderate, dependence: Status: Acute Code(s): F14.20 - Cocaine dependence, uncomplicated Plan Mr. Narvaez is a 52 year-old male with hx of MDD, alcohol use disorder (active), opioid use disorder in early remission on suboxone, cocaine use (active) who self presented [place] [facility] [place] [facility] reporting increased depression, suicidal ideation in context of recent trigger of seeing person having seizure, excruciating hip pain awaiting surgery which he can't have unless he has about 6 months of sobriety. Pt reports he wants to step down to residential substance use treatment. We discussed risks, benefit and alternative treatment options. Pt has always reported wellbutrin has been most effective antidepressant, he would like to continue it. We discussed continuing ambien but understand follow up rx comes from outpatient provider who better assessed risks versus benefit of being on controlled substances while continue to work on his recovery. 10/31: Increase wellbutrin xr to 450mg, which is what he has been on for a while. continue ciwa for alcohol use disorder. 11/01: had 10 mg ativan yesterday, will structure taper at 20% per day over next 4 days. DC CIWA protocol. 11/02 continue benzo taper. d/c naproxen, start celebrex 100mg po BID. flonase. Patient educated on: diagnosis, medication risk/benefits and substance abuse Informed Consent: understands Reason for continued inpatient stay Substantial Risk for: harm to self Time Spent With Patient Time: Total time managing care of this patient today ____ minutes.
[2022-11-02] MEDS: Lidocaine 4 % Patch ADH..PATCH 1 PATCH TRANSDERMA (10:45)
[2022-11-02] MEDS: Fluticasone Propionate Nasal 16 GM SPRAY 2 SPRAY NOSTRIL-B (10:45)
--- NOTE | 2022-11-02 14:00 | P.EN_ITS ---
Event Note Date of Service: 11/02/22 Event Note: Pt seen in follow up for discoloration of toes. Discussed with patient. he is homeless and has been walking around will ill fitting shoes and overgrown toenails. He developed dusky erythma around the base of the left great toenail and left 2nd toenail with overlying coli. There is also similar discoloration under the left great toenail with some blistering now that the toenail has been cut back. The patient is an occasional cocaine user and there was initially concern about this being related to peripheral vascular disease secondary to cocaine use which is certainly still a possibility. However given the patient's history, it is likely this is a traumatic paronychia. He is counseled however that ongoing cocaine use can result in peripheral vascular disease and that can result in amputation in the future if he continues using. At this time would co ntinue cleaning the areas with soap and water. No additional intervention is needed. The patient is counseled against rupturing any bowl eye to prevent infection. Will continue following to assess for any worsening discoloration. Time Spent With Patient Time: Total time managing care of this patient today ____ minutes.
[2022-11-02 20:45] VITALS: BP 158/87; PULSE 77; RESP 18; TEMP 35.9; O2SAT 97
[2022-11-02] MEDS: Celecoxib 100 MG CAPSULE PO (20:48)
[2022-11-02] MEDS: Prazosin HCL 1 MG CAPSULE 4 MG PO (20:49)
[2022-11-02] MEDS: chlorproMAZINE HCl 25 MG TABLET PO (20:49)
[2022-11-02] MEDS: Zolpidem Tartrate 5 MG TABLET PO (20:49)
[2022-11-02] MEDS: metroNIDAZOLE 0.75 % Gel 45 GM TUBE 1 APPL TOPICAL (20:52)
[2022-11-03 08:42] VITALS: BP 147/73; PULSE 74; RESP 18; TEMP 36.3; O2SAT 99
[2022-11-03] MEDS: Thiamine HCL 100 MG TABLET PO (08:46)
[2022-11-03] MEDS: Multivitamin TABLET 1 TAB PO (08:46)
[2022-11-03] MEDS: Celecoxib 100 MG CAPSULE PO ×2 (08:46→20:11)
[2022-11-03] MEDS: Gabapentin 400 MG CAPSULE 800 MG PO ×3 (08:46→20:11)
[2022-11-03] MEDS: Cyclobenzaprine HCl 10 MG TABLET PO ×3 (08:47→20:11)
[2022-11-03] MEDS: buPROPion HCl XL 150 MG TAB.ER.24H 450 MG PO (08:47)
[2022-11-03] MEDS: LORazepam 1 MG TABLET PO ×4 (08:47→20:11)
[2022-11-03] MEDS: Nicotine 21 MG PATCH.TD24 TRANSDERMA (08:48)
[2022-11-03] MEDS: Folic Acid 1 MG TABLET PO (08:48)
[2022-11-03] MEDS: Buprenorphine/Naloxone 8/2 mg FILM 1 FILM SUBLINGUAL ×3 (08:50→17:23)
[2022-11-03] MEDS: Fluticasone Propionate Nasal 16 GM SPRAY 2 SPRAY NOSTRIL-B (10:06)
[2022-11-03] MEDS: Lidocaine 4 % Patch ADH..PATCH 1 PATCH TRANSDERMA (10:07)
[2022-11-03] MEDS: Capsaicin 0.025% Cream 60 GM TUBE 1 APPL TOPICAL (10:08)
[2022-11-03] MEDS: metroNIDAZOLE 0.75 % Gel 45 GM TUBE 1 APPL TOPICAL ×2 (10:12→20:12)
--- NOTE | 2022-11-03 16:49 | P.PNPSI_ITS ---
Subjective Subjective Date of Service: 11/03/22 Reason For Visit: SI/Depression Subjective Notes: Conditional Voluntary Interim History: Pt reports feeling better in terms of depression, struggling with pain but managing it. He denies SI/HI. He hopes to transition to residential substance use tx. He has been visible on the unit. We discussed iron supplement every other day, no need for 3 times daily based on evidenced base practice. Review of Systems Constitutional: Reports no additional constitutional complaints, Denies chills, Denies fever(s) and Denies night sweats Eyes: Reports no additional eye complaints, Denies blurry vision, Denies change in vision, Denies diplopia, Denies eye discharge, Denies loss of vision and Denies eye pain Denies dizziness Cardiovascular: Reports no additional cardiovascular complaints, Denies chest pain, Denies lightheadedness, Denies Loss of Consciousness and Denies dyspnea Respiratory: Reports no additional respiratory complaints and Denies dyspnea Gastrointestinal: Reports no additional gastrointestinal complaints, Denies abdominal pain, Denies melena, Denies hematochezia, Denies change in bowel habits and Denies change in stool character Genitourinary: Reports no additional male genitourinary complaints, Denies hematuria, Denies oliguria, Denies difficulty urinating, Denies dysuria, Denies urinary frequency, Denies urinary hesitancy, Denies urinary incontinence and Denies urinary urgency Musculoskeletal: Reports no additional musculoskeletal complaints, Denies numbness and Denies tingling Denies dizziness, Denies loss of vision, Denies numbness and Denies tingling Psychiatric: Reports no additional psychiatric complaints, Reports depression, Denies homicidal ideation and Reports suicidal ideation Endocrine: Reports no additional endocrine complaints Hematologic/Lymphatic: Reports no additional hematologic/lymphatic complaints Allergic/Immunologic: Reports no additional allergic/immunologic complaints Mental Status Exam Mental Status Exam Narrative: Appearance: casually groomed, fair hygiene in NAD Behavior:cooperative psychomotor: no agitation or retardation noted Speech:clear, normal rate/rhythm/volume, spontaneous Thought process: linear Thought content:no signs of psychosis, future oriented looking forward to do CSS Mood: better Affect: brighter, non labile, congruent SI:none HI:none VH/AH:none Delusions:none Insight/judgment:fair x 2. Memory/cog: alert, oriented x 3. grossly intact to conversational testing. Diagnostics Vital Signs (24Hr): Vital Signs - 24 hr 06/10/23 20:45 11/03/22 08:42 Temperature 96.6 F L 97.4 F Pulse Rate 77 74 Respiratory Rate 18 18 Blood Pressure 158/87 H 147/73 H Pulse Oximetry 97 99 Oxygen Delivery Method Room Air Room Air BMI result Body Mass Index 28.2 Labs 10/29/22 15:28 10/31/22 08:51 Medications Medications Current Medications Acetaminophen (Acetaminophen 325 Mg Tablet) 650 mg PO Q6H PRN PRN Reason: Headache/Pain Mild Scale (1-3) Last Admin: 11/02/22 08:38 Dose: 650 mg Al Hydroxide/Mg Hydroxide (Magnesium Hydrox/Alum Hydrox 30 Ml Oral.Susp) 30 ml PO Q6H PRN PRN Reason: Heartburn/Nausea Buprenorphine/Naloxone (Buprenorphine/Naloxone 8/2 Mg Film) 1 film SUBLINGUAL TID@0800,1200,1700 [facility] Last Admin: 11/03/22 11:55 Dose: 1 film Bupropion HCl (Bupropion Hcl Xl 150 Mg Tab.Er.24h) 450 mg PO DAILY [facility] Last Admin: 11/03/22 08:47 Dose: 450 mg Capsaicin (Capsaicin 0.025% Cream 60 Gm Tube) 1 appl TOPICAL QID [facility]; Protocol Last Admin: 11/03/22 11:57 Dose: Not Given Celecoxib (Celecoxib 100 Mg Capsule) 100 mg PO BID [facility] Last Admin: 11/03/22 08:46 Dose: 100 mg Chlorpromazine HCl (Chlorpromazine Hcl 25 Mg Tablet) 25 mg PO Q6H PRN PRN Reason: Anxiety Last Admin: 11/02/22 20:49 Dose: 25 mg Cyclobenzaprine HCl (Cyclobenzaprine Hcl 10 Mg Tablet) 10 mg PO TID [facility] Last Admin: 11/03/22 14:58 Dose: 10 mg Ferrous Sulfate (Ferrous Sulfate 324 Mg Tablet.Dr) 324 mg PO Q48H [facility] Last Admin: 11/03/22 10:39 Dose: Not Given Fluticasone Propionate (Fluticasone Propionate Nasal 16 Gm [place]) 2 spray NOSTRIL-B DAILY [facility] Last Admin: 11/03/22 10:06 Dose: 2 spray Folic Acid (Folic Acid 1 Mg Tablet) 1 mg PO DAILY [facility] Last Admin: 11/03/22 08:48 Dose: 1 mg Gabapentin (Gabapentin 400 Mg Capsule) 800 mg PO TID [facility] Last Admin: 11/03/22 14:58 Dose: 800 mg Lidocaine (Lidocaine 4 % Patch Adh..Patch) 1 patch TRANSDERMA DAILY [facility]; Tanesha col Last Admin: 11/03/22 10:07 Dose: 1 patch Lorazepam (Lorazepam 1 Mg Tablet) 1 mg PO QID [facility] Stop: 11/03/22 21:01 Last Admin: 11/03/22 11:56 Dose: 1 mg Lorazepam (Lorazepam 1 Mg Tablet) 1 mg PO BID [facility] Stop: 11/05/22 09:01 Magnesium Hydroxide (Milk Of Magnesia 30 Ml Oral.Susp) 30 ml PO DAILY PRN PRN Reason: Constipation Metronidazole (Metronidazole 0.75 % Gel 45 Gm Tube) 1 appl TOPICAL BID [facility] Last Admin: 11/03/22 10:12 Dose: 1 appl Multivitamins/Vitamin C (Multivitamin Tablet) 1 tab PO DAILY [facility] Last Admin: 11/03/22 08:46 Dose: 1 tab Nicotine (Nicotine 21 Mg Patch.Td24) 21 mg TRANSDERMA DAILY [facility] Last Admin: 11/03/22 08:48 Dose: 21 mg Nicotine Polacrilex (Nicotine Polacrilex 2 Mg Gum) 4 mg BUCCAL Q2H PRN PRN Reason: Nicotine Cravings Prazosin HCl (Prazosin Hcl 1 Mg Capsule) 4 mg PO BEDTIME [facility]; Protocol Last Admin: 11/02/22 20:49 Dose: 4 mg Thiamine HCl (Thiamine Hcl 100 Mg Tablet) 100 mg PO DAILY [facility] Last Admin: 11/03/22 08:46 Dose: 100 mg Trazodone HCl (Trazodone Hcl 100 Mg Tablet) 100 mg PO BEDTIME PRN PRN Reason: Insomnia Zolpidem Tartrate (Zolpidem Tartrate 5 Mg Tablet) 5 mg PO BEDTIME [facility] Last Admin: 11/02/22 20:49 Dose: 5 mg Allergies Allergies Allergy/AdvReac Type Severity Reaction Status Date / Time ketamine AdvReac Severe Agitated Verified 10/29/22 15:22 phenobarbital AdvReac Vomiting Verified 10/29/22 15:22 Assessment & Plan Assessment & Plan (1) MDD (major depressive disorder), recurrent episode, severe: Status: Acute Code(s): F33.2 - Major depressive disorder, recurrent severe without psychotic features (2) Chronic post-traumatic stress disorder (PTSD): Status: Acute Code(s): F43.12 - Post-traumatic stress disorder, chronic (3) Alcohol use disorder: Status: Chronic (4) Opioid use disorder: Status: Chronic Code(s): F11.99 - Opioid use, unspecified with unspecified opioid-induced disorder (5) Cocaine use disorder, moderate, dependence: Status: Acute Code(s): F14.20 - Cocaine dependence, uncomplicated Plan Mr. Narvaez is a 52 year-old male with hx of MDD, alcohol use disorder (active), opioid use disorder in early remission on suboxone, cocaine use (active) who self presented to [facility] [place] [facility] reporting increased depression, suicidal ideation in context of recent trigger of seeing person having seizure, excruciating hip pain awaiting surgery which he can't have unless he has about 6 months of sobriety. Pt reports he wants to step down to residential substance use treatment. We discussed risks, benefit and alternative treatment options. Pt has always reported wellbutrin has been most effective antidepressant, he would like to continue it. We discussed continuing ambien but understand follow up rx comes from outpatient provider who better assessed risks versus benefit of being on controlled substances while continue to work on his recovery. 10/31: Increase wellbutrin xr to 450mg, which is what he has been on for a while. continue ciwa for alcohol use disorder. 11/01: had 10 mg ativan yesterday, will structure taper at 20% per day over next 4 days. DC CIWA protocol. 11/02 continue benzo taper. d/c naproxen, start celebrex 100mg po BID. flonase. 11/03 continue tx. iron every other day, equally effective and less side effects. Reason for continued inpatient stay Substantial Risk for: harm to self Time Spent With Patient Time: Total time managing care of this patient today ____ minutes.
--- NOTE | 2022-11-03 17:46 | PM.EVENT ---
Event Note Date of Service: 11/03/22 Event Note: Appearance of left great and 2nd toes greatly improved. Dusky erythema in the periungual area receding and denies any pain. Still with bulla at base of 2nd toenail but no evidence of infection. This is likely consistent with a traumatic paranychia as previously noted. Will sign off at this time, but please do not hesitate to reach out for any further questions. Time Spent With Patient Time: Total time managing care of this patient today ____ minutes.
[2022-11-03] MEDS: chlorproMAZINE HCl 25 MG TABLET PO (18:31)
[2022-11-03 20:08] VITALS: BP 133/78; PULSE 77; TEMP 36.4; O2SAT 99
[2022-11-03] MEDS: Prazosin HCL 1 MG CAPSULE 4 MG PO (20:10)
[2022-11-03] MEDS: Zolpidem Tartrate 5 MG TABLET PO (20:11)
[2022-11-04 08:49] VITALS: BP 134/85; PULSE 84; TEMP 36.7; O2SAT 98
[2022-11-04] MEDS: Buprenorphine/Naloxone 8/2 mg FILM 1 FILM SUBLINGUAL ×3 (08:57→16:30)
[2022-11-04] MEDS: buPROPion HCl XL 150 MG TAB.ER.24H 450 MG PO (08:57)
[2022-11-04] MEDS: Nicotine 21 MG PATCH.TD24 TRANSDERMA (08:57)
[2022-11-04] MEDS: LORazepam 1 MG TABLET PO ×2 (08:58→20:17)
[2022-11-04] MEDS: Folic Acid 1 MG TABLET PO (08:59)
[2022-11-04] MEDS: Cyclobenzaprine HCl 10 MG TABLET PO ×3 (08:59→20:17)
[2022-11-04] MEDS: Gabapentin 400 MG CAPSULE 800 MG PO ×3 (08:59→20:16)
[2022-11-04] MEDS: Celecoxib 100 MG CAPSULE PO ×2 (09:00→20:16)
[2022-11-04] MEDS: Multivitamin TABLET 1 TAB PO (09:02)
[2022-11-04] MEDS: metroNIDAZOLE 0.75 % Gel 45 GM TUBE 1 APPL TOPICAL ×2 (09:03→20:22)
[2022-11-04] MEDS: Thiamine HCL 100 MG TABLET PO (09:05)
--- NOTE | 2022-11-04 12:48 | HO.PSYCHPN ---
Subjective Subjective Date of Service: 11/04/22 Reason For Visit: SI/Depression Subjective Notes: Conditional Voluntary Interim History: Pt reports feeling anxious about benzo taper. He reports his mood overall is stable. But reports episodes of explosive or irritability that feels affects his interactions with others. He asks if there is medication that can help with that. We discussed beta ne and mood stabilizer. He agrees to try propanolol. He denies SI/HI. However, he does report that his suicidality can change quickly and he has had serious OD recently and throughout his life. Medication Compliance: Yes Mental Status Exam Mental Status Exam Narrative: Appearance: casually groomed, fair hygiene in NAD Behavior:cooperative psychomotor: no agitation or retardation noted Speech:clear, normal rate/rhythm/volume, spontaneous Thought process: linear Thought content:no signs of psychosis, future oriented looking forward to do CSS Mood: better Affect: brighter, non labile, congruent SI:none HI:none VH/AH:none Delusions:none Insight/judgment:fair x 2. Memory/cog: alert, oriented x 3. grossly intact to conversational testing. Diagnostics Vital Signs (24Hr): Vital Signs - 24 hr 11/03/22 20:08 11/04/22 08:49 Temperature 97.5 F 98.1 F Pulse Rate 77 84 Blood Pressure 133/78 134/85 Pulse Oximetry 99 98 Oxygen Delivery Method Room Air BMI result Body Mass Index 28.2 Labs 10/29/22 15:28 10/31/22 08:51 Medications Medications Current Medications Acetaminophen (Acetaminophen 325 Mg Tablet) 650 mg PO Q6H PRN PRN Reason: Headache/Pain Mild Scale (1-3) Last Admin: 11/02/22 08:38 Dose: 650 mg Al Hydroxide/Mg Hydroxide (Magnesium Hydrox/Alum Hydrox 30 Ml Oral.Susp) 30 ml PO Q6H PRN PRN Reason: Heartburn/Nausea Buprenorphine/Naloxone (Buprenorphine/Naloxone 8/2 Mg Film) 1 film SUBLINGUAL TID@0800,1200,1700 [facility] Last Admin: 11/04/22 12:23 Dose: 1 film Bupropion HCl (Bupropion Hcl Xl 150 Mg Tab.Er.24h) 450 mg PO DAILY [facility] Last Admin: 11/04/22 08:57 Dose: 450 mg Capsaicin (Capsaicin 0.025% Cream 60 Gm Tube) 1 appl TOPICAL QID [facility]; Protocol Last Admin: 11/04/22 09:06 Dose: Not Given Celecoxib (Celecoxib 100 Mg Capsule) 100 mg PO BID [facility] Last Admin: 11/04/22 09:00 Dose: 100 mg Chlorpromazine HCl (Chlorpromazine Hcl 25 Mg Tablet) 25 mg PO Q6H PRN PRN Reason: Anxiety Last Admin: 11/03/22 18:31 Dose: 25 mg Cyclobenzaprine HCl (Cyclobenzaprine Hcl 10 Mg Tablet) 10 mg PO TID [facility] Last Admin: 11/04/22 08:59 Dose: 10 mg Ferrous Sulfate (Ferrous Sulfate 324 Mg Tablet.Dr) 324 mg PO Q48H [facility] Last Admin: 11/03/22 10:39 Dose: Not Given Fluticasone Propionate (Fluticasone Propionate Nasal 16 Gm [place]) 2 spray NOSTRIL-B DAILY [facility] Last Admin: 11/04/22 09:19 Dose: Not Given Folic Acid (Folic Acid 1 Mg Tablet) 1 mg PO DAILY [facility] Last Admin: 11/04/22 08:59 Dose: 1 mg Gabapentin (Gabapentin 400 Mg Capsule) 800 mg PO TID [facility] Last Admin: 11/04/22 08:59 Dose: 800 mg Lidocaine (Lidocaine 4 % Patch Adh..Patch) 1 patch TRANSDERMA DAILY [facility]; Protocol Last Admin: 11/04/22 12:25 Dose: Not Given Lorazepam (Lorazepam 1 Mg Tablet) 1 mg PO BID [facility] Stop: 11/05/22 09:01 Last Admin: 11/04/22 08:58 Dose: 1 mg Magnesium Hydroxide (Milk Of Magnesia 30 Ml Oral.Susp) 30 ml PO DAILY PRN PRN Reason: Constipation Metronidazole (Metronidazole 0.75 % Gel 45 Gm Tube) 1 appl TOPICAL BID [facility] Last Admin: 11/04/22 09:03 Dose: 1 appl Multivitamins/Vitamin C (Multivitamin Tablet) 1 tab PO DAILY [facility] Last Admin: 11/04/22 09:02 Dose: 1 tab Nicotine (Nicotine 21 Mg Patch.Td24) 21 mg TRANSDERMA DAILY [facility] Last Admin: 11/04/22 08:57 Dose: 21 mg Nicotine Polacrilex (Nicotine Polacrilex 2 Mg Gum) 4 mg BUCCAL Q2H PRN PRN Reason: Nicotine Cravings Prazosin HCl (Prazosin Hcl 1 Mg Capsule) 4 mg PO BEDTIME [facility]; Protocol Last Admin: 11/03/22 20:10 Dose: 4 mg Propranolol HCl (Propranolol Hcl 20 Mg Tablet) 20 mg PO BID [facility]; Protocol Thiamine HCl (Thiamine Hcl 100 Mg Tablet) 100 mg PO DAILY [facility] Last Admin: 11/04/22 09:05 Dose: 100 mg Trazodone HCl (Trazodone Hcl 100 Mg Tablet) 100 mg PO BEDTIME PRN PRN Reason: Insomnia Zolpidem Tartrate (Zolpidem Tartrate 5 Mg Tablet) 10 mg PO BEDTIME [facility] Allergies Allergies Allergy/AdvReac Type Severity Reaction Status Date / Time ketamine AdvReac Severe Agitated Verified 10/29/22 15:22 phenobarbital AdvReac Vomiting Verified 10/29/22 15:22 Assessment & Plan Assessment & Plan (1) MDD (major depressive disorder), recurrent episode, severe: Status: Acute Code(s): F33.2 - Major depressive disorder, recurrent severe without psychotic features (2) Chronic post-traumatic stress disorder (PTSD): Status: Acute Code(s): F43.12 - Post-traumatic stress disorder, chronic (3) Alcohol use disorder: Status: Chronic (4) Opioid use disorder: Status: Chronic Code(s): F11.99 - Opioid use, unspecified with unspecified opioid-induced disorder (5) Cocaine use disorder, moderate, dependence: Status: Acute Code(s): F14.20 - Cocaine dependence, uncomplicated Plan Mr. Narvaez is a 52 year-old male with hx of MDD, alcohol use disorder (active), opioid use disorder in early remission on suboxone, cocaine use (active) who self presented to [facility] reporting increased depression, suicidal ideation in context of recent trigger of seeing person having seizure, excruciating hip pain awaiting surgery which he can't have unless he has about 6 months of sobriety. Pt reports he wants to step down to residential substance use treatment. We discussed risks, benefit and alternative treatment options. Pt has always reported wellbutrin has been most effective antidepressant, he would like to continue it. We discussed continuing ambien but understand follow up rx comes from outpatient provider who better assessed risks versus benefit of being on controlled substances while continue to work on his recovery. 10/31: Increase wellbutrin xr to 450mg, which is what he has been on for a while. continue ciwa for alcohol use disorder. 11/01: had 10 mg ativan yesterday, will structure taper at 20% per day over next 4 days. DC CIWA protocol. 11/02 continue benzo taper. d/c naproxen, start celebrex 100mg po BID. flonase. 11/03 continue tx. iron every other day, equally effective and less side effects. 11/04 increase ambien to 10mg po qhs. start propanolol for impulsive/explosive short-lived reactions when overwhelmed. Reason for continued inpatient stay Substantial Risk for: harm to self Time Spent With Patient Time: Total time managing care of this patient today ____ minutes.
[2022-11-04 14:37] VITALS: BP 141/99
[2022-11-04] MEDS: Propranolol HCL 20 MG TABLET PO ×2 (14:39→20:16)
[2022-11-04] MEDS: Nicotine Polacrilex 2 MG GUM 4 MG BUCCAL (16:16)
[2022-11-04] MEDS: chlorproMAZINE HCl 25 MG TABLET PO (17:01)
[2022-11-04 20:10] VITALS: BP 134/71; PULSE 68; RESP 14; TEMP 36.3; O2SAT 98
[2022-11-04] MEDS: Prazosin HCL 1 MG CAPSULE 4 MG PO (20:15)
[2022-11-04] MEDS: Zolpidem Tartrate 5 MG TABLET 10 MG PO (20:18)
[2022-11-04] MEDS: Capsaicin 0.025% Cream 60 GM TUBE 1 APPL TOPICAL (20:22)
[2022-11-05 08:36] VITALS: BP 154/73; PULSE 69; RESP 20; TEMP 36.8; O2SAT 100
[2022-11-05] MEDS: Nicotine 21 MG PATCH.TD24 TRANSDERMA (08:37)
[2022-11-05] MEDS: Celecoxib 100 MG CAPSULE PO (08:38)
[2022-11-05] MEDS: buPROPion HCl XL 150 MG TAB.ER.24H 450 MG PO (08:38)
[2022-11-05] MEDS: Fluticasone Propionate Nasal 16 GM SPRAY 2 SPRAY NOSTRIL-B (08:39)
[2022-11-05] MEDS: Folic Acid 1 MG TABLET PO (08:39)
[2022-11-05] MEDS: LORazepam 1 MG TABLET PO (08:39)
[2022-11-05] MEDS: Cyclobenzaprine HCl 10 MG TABLET PO ×3 (08:39→20:33)
[2022-11-05] MEDS: Gabapentin 400 MG CAPSULE 800 MG PO ×3 (08:39→20:31)
[2022-11-05] MEDS: Propranolol HCL 20 MG TABLET PO ×2 (08:39→20:32)
[2022-11-05] MEDS: Thiamine HCL 100 MG TABLET PO (08:40)
[2022-11-05] MEDS: Multivitamin TABLET 1 TAB PO (08:40)
[2022-11-05] MEDS: Buprenorphine/Naloxone 8/2 mg FILM 1 FILM SUBLINGUAL ×3 (08:40→17:25)
[2022-11-05] MEDS: metroNIDAZOLE 0.75 % Gel 45 GM TUBE 1 APPL TOPICAL (08:43)
[2022-11-05] MEDS: Ferrous Sulfate 324 MG TABLET.DR PO (10:54)
[2022-11-05] MEDS: Lidocaine 4 % Patch ADH..PATCH 1 PATCH TRANSDERMA (10:54)
[2022-11-05] MEDS: chlorproMAZINE HCl 25 MG TABLET PO ×2 (13:22→20:32)
[2022-11-05] MEDS: Nicotine Polacrilex 2 MG GUM 4 MG BUCCAL ×2 (13:22→20:32)
--- NOTE | 2022-11-05 16:05 | P.PNPSI_ITS ---
Subjective Subjective Date of Service: 11/05/22 Reason For Visit: SI/Depression Subjective Notes: Conditional Voluntary Interim History: Pt denies suicidal or homicidal ideation. HE is worried about sleep and end of benzo taper. He reports hip pain, taking celerex and capsaisin. No psychosis. Pt reports episodes of frustration and lashing out for which he was started on propanolol. He slept well. No behavioral concerns. Medication Compliance: Yes Side effects from medications: No Attending Groups: Intermittent Review of Systems Constitutional: Reports no additional constitutional complaints, Denies chills, Denies fever(s) and Denies night sweats Eyes: Reports no additional eye complaints, Denies blurry vision, Denies change in vision, Denies diplopia, Denies eye discharge, Denies loss of vision and Denies eye pain Denies dizziness Cardiovascular: Reports no additional cardiovascular complaints, Denies chest pain, Denies lightheadedness, Denies Loss of Consciousness and Denies dyspnea Respiratory: Reports no additional respiratory complaints and Denies dyspnea Gastrointestinal: Reports no additional gastrointestinal complaints, Denies abdominal pain, Denies melena, Denies hematochezia, Denies change in bowel habits and Denies change in stool character Genitourinary: Reports no additional male genitourinary complaints, Denies hematuria, Denies oliguria, Denies difficulty urinating, Denies dysuria, Denies urinary frequency, Denies urinary hesitancy, Denies urinary incontinence and Denies urinary urgency Musculoskeletal: Reports no additional musculoskeletal complaints, Denies numbness and Denies tingling Denies dizziness, Denies loss of vision, Denies numbness and Denies tingling Psychiatric: Reports no additional psychiatric complaints, Reports depression, Denies homicidal ideation and Reports suicidal ideation Endocrine: Reports no additional endocrine complaints Hematologic/Lymphatic: Reports no additional hematologic/lymphatic complaints Allergic/Immunologic: Reports no additional allergic/immunologic complaints Mental Status Exam Mental Status Exam Narrative: Appearance: casually groomed, fair hygiene in NAD Behavior:cooperative psychomotor: no agitation or retardation noted Speech:clear, normal rate/rhythm/volume, spontaneous Thought process: linear Thought content:no signs of psychosis, future oriented looking forward to do CSS Mood: better Affect: brighter, non labile, congruent SI:none HI:none VH/AH:none Delusions:none Insight/judgment:fair x 2. Memory/cog: alert, oriented x 3. grossly intact to conversational testing. Diagnostics Vital Signs (24Hr): Vital Signs - 24 hr 11/04/22 20:10 11/05/22 08:36 Temperature 97.4 F 98.3 F Pulse Rate 68 69 Respiratory Rate 14 20 Blood Pressure 134/71 154/73 H Pulse Oximetry 98 100 Oxygen Delivery Method Room Air Room Air BMI result Body Mass Index 28.2 Labs 10/29/22 15:28 10/31/22 08:51 Medications Medications Current Medications Acetaminophen (Acetaminophen 325 Mg Tablet) 650 mg PO Q6H PRN PRN Reason: Headache/Pain Mild Scale (1-3) Last Admin: 11/02/22 08:38 Dose: 650 mg Al Hydroxide/Mg Hydroxide (Magnesium Hydrox/Alum Hydrox 30 Ml Oral.Susp) 30 ml PO Q6H PRN PRN Reason: Heartburn/Nausea Buprenorphine/Naloxone (Buprenorphine/Naloxone 8/2 Mg Film) 1 film SUBLINGUAL TID@0800,1200,1700 [facility] Last Admin: 11/05/22 12:20 Dose: 1 film Bupropion HCl (Bupropion Hcl Xl 150 Mg Tab.Er.24h) 450 mg PO DAILY [facility] Last Admin: 11/05/22 08:38 Dose: 450 mg Capsaicin (Capsaicin 0.025% Cream 60 Gm Tube) 1 appl TOPICAL QID [facility]; Protocol Last Admin: 11/05/22 13:07 Dose: Not Given Celecoxib (Celecoxib 200 Mg Capsule) 200 mg PO BID [facility] Chlorpromazine HCl (Chlorpromazine Hcl 25 Mg Tablet) 25 mg PO Q6H PRN PRN Reason: Anxiety Last Admin: 11/05/22 13:22 Dose: 25 mg Cyclobenzaprine HCl (Cyclobenzaprine Hcl 10 Mg Tablet) 10 mg PO TID [facility] Last Admin: 11/05/22 15:17 Dose: 10 mg Ferrous Sulfate (Ferrous Sulfate 324 Mg Tablet.Dr) 324 mg PO Q48H [facility] Last Admin: 11/05/22 10:54 Dose: 324 mg Fluticasone Propionate (Fluticasone Propionate Nasal 16 Gm [place]) 2 spray NOSTRIL-B DAILY [facility] Last Admin: 11/05/22 08:39 Dose: 2 spray Folic Acid (Folic Acid 1 Mg Tablet) 1 mg PO DAILY [facility] Last Admin: 11/05/22 08:39 Dose: 1 mg Gabapentin (Gabapentin 400 Mg Capsule) 800 mg PO TID [facility] Last Admin: 11/05/22 15:17 Dose: 800 mg Lidocaine (Lidocaine 4 % Patch Adh..Patch) 1 patch TRANSDERMA DAILY [facility]; Prot ocol Last Admin: 11/05/22 10:54 Dose: 1 patch Lorazepam (Lorazepam 1 Mg Tablet) 1 mg PO DAILY [facility] Stop: 11/06/22 09:01 Magnesium Hydroxide (Milk Of Magnesia 30 Ml Oral.Susp) 30 ml PO DAILY PRN PRN Reason: Constipation Metronidazole (Metronidazole 0.75 % Gel 45 Gm Tube) 1 appl TOPICAL BID [facility] Last Admin: 11/05/22 08:43 Dose: 1 appl Multivitamins/Vitamin C (Multivitamin Tablet) 1 tab PO DAILY [facility] Last Admin: 11/05/22 08:40 Dose: 1 tab Nicotine (Nicotine 21 Mg Patch.Td24) 21 mg TRANSDERMA DAILY [facility] Last Admin: 11/05/22 08:37 Dose: 21 mg Nicotine Polacrilex (Nicotine Polacrilex 2 Mg Gum) 4 mg BUCCAL Q2H PRN PRN Reason: Nicotine Cravings Last Admin: 11/05/22 13:22 Dose: 4 mg Prazosin HCl (Prazosin Hcl 1 Mg Capsule) 4 mg PO BEDTIME [facility]; Protocol Last Admin: 11/04/22 20:15 Dose: 4 mg Propranolol HCl (Propranolol Hcl 20 Mg Tablet) 20 mg PO BID [facility]; Protocol Last Admin: 11/05/22 08:39 Dose: 20 mg Thiamine HCl (Thiamine Hcl 100 Mg Tablet) 100 mg PO DAILY [facility] Last Admin: 11/05/22 08:40 Dose: 100 mg Trazodone HCl (Trazodone Hcl 100 Mg Tablet) 100 mg PO BEDTIME PRN PRN Reason: Insomnia Zolpidem Tartrate (Zolpidem Tartrate 5 Mg Tablet) 10 mg PO BEDTIME [facility] Last Admin: 11/04/22 20:18 Dose: 10 mg Allergies Allergies Allergy/AdvReac Type Severity Reaction Status Date / Time ketamine AdvReac Severe Agitated Verified 10/29/22 15:22 phenobarbital AdvReac Vomiting Verified 10/29/22 15:22 Assessment & Plan Assessment & Plan (1) MDD (major depressive disorder), recurrent episode, severe: Status: Acute Code(s): F33.2 - Major depressive disorder, recurrent severe without psychotic features (2) Chronic post-traumatic stress disorder (PTSD): Status: Acute Code(s): F43.12 - Post-traumatic stress disorder, chronic (3) Alcohol use disorder: Status: Chronic (4) Opioid use disorder: Status: Chronic Code(s): F11.99 - Opioid use, unspecified with unspecified opioid-induced disorder (5) Cocaine use disorder, moderate, dependence: Status: Acute Code(s): F14.20 - Cocaine dependence, uncomplicated Plan Mr. Narvaez is a 52 year-old male with hx of MDD, alcohol use disorder (active), opioid use disorder in early remission on suboxone, cocaine use (active) who self presented to [facility] reporting increased depression, suicidal ideation in context of recent trigger of seeing person having seizure, excruciating hip pain awaiting surgery which he can't have unless he has about 6 months of sobriety. Pt reports he wants to step down to residential substance use treatment. We discussed risks, benefit and alternative treatment options. Pt has always reported wellbutrin has been most effective antidepressant, he would like to continue it. We discussed continuing ambien but understand follow up rx comes from outpatient provider who better assessed risks versus benefit of being on controlled substances while continue to work on his recovery. 10/31: Increase wellbutrin xr to 450mg, which is what he has been on for a while. continue ciwa for alcohol use disorder. 11/01: had 10 mg ativan yesterday, will structure taper at 20% per day over next 4 days. DC CIWA protocol. 11/02 continue benzo taper. d/c naproxen, start celebrex 100mg po BID. flonase. 11/03 continue tx. iron every other day, equally effective and less side effects. 11/04 increase ambien to 10mg po qhs. start propanolol for impulsive/explosive short-lived reactions when overwhelmed. 11/05 increase celebrex 200mg po BID. continue other medications. Reason for continued inpatient stay Substantial Risk for: stable for discharge Time Spent With Patient Time: Total time managing care of this patient today ____ minutes.
[2022-11-05] MEDS: Capsaicin 0.025% Cream 60 GM TUBE 1 APPL TOPICAL (17:11)
[2022-11-05 20:10] VITALS: BP 142/80; PULSE 70; RESP 16; TEMP 36.6; O2SAT 99
[2022-11-05] MEDS: Prazosin HCL 1 MG CAPSULE 4 MG PO (20:31)
[2022-11-05] MEDS: Celecoxib 200 MG CAPSULE PO (20:32)
[2022-11-05] MEDS: Zolpidem Tartrate 5 MG TABLET 10 MG PO (20:32)
[2022-11-06] MEDS: traZODone HCL 100 MG TABLET PO (00:33)
[2022-11-06 06:00] VITALS: BP 122/74; PULSE 76; RESP 18; TEMP 36.9; O2SAT 99
[2022-11-06] MEDS: buPROPion HCl XL 150 MG TAB.ER.24H 450 MG PO (08:17)
[2022-11-06] MEDS: Lidocaine 4 % Patch ADH..PATCH 1 PATCH TRANSDERMA (08:17)
[2022-11-06] MEDS: Celecoxib 200 MG CAPSULE PO (08:17)
[2022-11-06] MEDS: Folic Acid 1 MG TABLET PO (08:17)
[2022-11-06] MEDS: Gabapentin 400 MG CAPSULE 800 MG PO (08:17)
[2022-11-06] MEDS: LORazepam 1 MG TABLET PO (08:17)
[2022-11-06] MEDS: Buprenorphine/Naloxone 8/2 mg FILM 1 FILM SUBLINGUAL ×2 (08:17→11:23)
[2022-11-06] MEDS: Multivitamin TABLET 1 TAB PO (08:17)
[2022-11-06] MEDS: Cyclobenzaprine HCl 10 MG TABLET PO (08:18)
[2022-11-06] MEDS: Thiamine HCL 100 MG TABLET PO (08:18)
[2022-11-06] MEDS: Propranolol HCL 20 MG TABLET PO (08:18)
[2022-11-06] MEDS: Nicotine 21 MG PATCH.TD24 TRANSDERMA (08:20)
[2022-11-06] MEDS: Capsaicin 0.025% Cream 60 GM TUBE 1 APPL TOPICAL (08:21)
[2022-11-06] MEDS: chlorproMAZINE HCl 25 MG TABLET PO (11:23)
[2022-11-06] MEDS: Acetaminophen 325 MG TABLET 650 MG PO (11:23)
--- NOTE | 2022-11-06 11:49 | PM.PSYDC ---
DS: Providers Provider Date of Service: 11/06/22 Date of admission: 10/30/22 15:23 Primary care physician: Bhupinder Morales APRN Consults: 10/31/22 14:35 Consult to Hospitalist Routine Comment: Consulting Provider: Hospitalist Reason For Exam: painful, discolored toes DS: Diagnosis Discharge Diagnosis (1) MDD (major depressive disorder), recurrent episode, severe: Status: Acute (2) Chronic post-traumatic stress disorder (PTSD): Status: Acute (3) Alcohol use disorder: Status: Chronic (4) Opioid use disorder: Status: Chronic (5) Cocaine use disorder, moderate, dependence: Status: Acute DS: Medications Discharge Medications Home Medications: Home Medications Medication Instructions Recorded Confirmed multivitamin with folic acid 400 1 tab PO DAILY 10/07/22 10/29/22 mcg tablet (Tab-A-Tony) Previous Rx's Medication Instructions Recorded buprenorphine 8 mg-naloxone 2 mg 1 film sublingual TID #42 ea 09/24/22 sublingual film (Suboxone) bupropion HCl 150 mg 24 hr tablet, 450 mg PO DAILY #45 tabs 11/06/22 extended release celecoxib 200 mg capsule 200 mg PO BID #60 caps 11/06/22 chlorpromazine 25 mg tablet 25 mg PO BID PRN Anxiety #60 tabs 11/06/22 cyclobenzaprine 10 mg tablet 10 mg PO TID #90 tabs 11/06/22 ferrous sulfate 324 mg (65 mg 324 mg PO Q48H #30 tabs 11/06/22 iron) tablet,delayed release fluticasone propionate 50 2 spray intranasal DAILY #0 grams 11/06/22 mcg/actuation nasal spray,suspension folic acid 1 mg tablet 1 mg PO DAILY #30 tabs 11/06/22 gabapentin 800 mg tablet 800 mg PO TID #90 tabs 11/06/22 lidocaine 4 % topical patch 1 patch transdermal DAILY #30 ea 11/06/22 (Lidocaine Pain Relief) metronidazole 0.75 % topical gel 1 appl topical BID #45 grams 11/06/22 prazosin 2 mg capsule 4 mg PO BEDTIME #60 caps 11/06/22 propranolol 20 mg tablet 20 mg PO BID #60 tabs 11/06/22 thiamine mononitrate (vit B1) 100 100 mg PO DAILY #30 tabs 11/06/22 mg tablet trazodone 100 mg tablet 100 mg PO BEDTIME PRN Insomnia #30 11/06/22 tabs Mental Status Exam Mental Status Exam Narrative: Appearance: casually groomed, fair hygiene in NAD Behavior:cooperative psychomotor: no agitation or retardation noted Speech:clear, normal rate/rhythm/volume, spontaneous Thought process: linear Thought content:no signs of psychosis, future oriented looking forward to do CSS Mood: better Affect: brighter, non labile, congruent SI:none HI:none VH/AH:none Delusions:none Insight/judgment:fair x 2. Memory/cog: alert, oriented x 3. grossly intact to conversational testing. Data Data Completed and Pending Completed studies during hospitalization [Text1]: 10/31/22 10/31/22 08:51 08:51 Sodium 143 Potassium 4.4 Chloride 111 H Carbon Dioxide 24 Anion Gap 12 BUN 10 Creatinine 0.86 Estim Creat Clear Calc 123.8 Estimated GFR > 60 Fasting Glucose 90 Estimat Average Glucose 94 Hemoglobin A1c % 4.9 Calcium 8.7 Total Bilirubin 0.4 AST 65 H ALT 66 H Alkaline Phosphatase 69 Total Protein 6.0 L Albumin 3.7 Triglycerides 121 Cholesterol 152 LDL Cholesterol, Calc 87 HDL Cholesterol 41 Vitamin B12 360 Folate 18.0 TSH 1.97 Free T4 1.07 DS: Summary Hospital Course Hospital Course: Subjective Notes: Alfonso Warning (given and shows understanding) and Conditional Voluntary Narrative: Mr. Naravez is a 52 year-old male with hx of MDD, alcohol and cocaine use disorder who self presented to [facility] ED reporting increased depression, suicidal ideation in context of recent triggers including witnessing someone having a seizure and having excruciating hip pain (needs hip replacement but surgery can't be done until he has 6 months of sobriety). In the ED, utox positive for amphetamines, cocaine. BAL neg, but pt reports using alcohol daily. On the unit, pt reports he has been experiencing increasing symptoms of depression in context of past trauma, worsening hip pain, ongoing substance use. On the unit, pt denies any plan or intent to harm himself. He does report that he hopes to reconnect with a residential substance use treatment program. Pt denies AH/VH. No delusions. Pt reports he has not had prescriber for about 2 months since he left program at [facility]. Pt used to be on ritalin which he has not had prescription for in 2 months. He also reports having prescription for ambien. We discussed risks and benefits of additional controlled substances prescribed as he continues to work on recovery. Past Psychiatric History: -Past meds: SSRIs/ SNRIs ?didnt seem to do a lot? and had SEs, buspar (didnt help), seroquel (wt gain), risperdal (wt gain), clonidine, remeron (wt gain), campral (lack of efficacy) -Long hx of inpatient admissions for SI, substance use and alcohol abuse, depression, and PTSD. Last at [facility] 03/2021. -Has a dx of a hx of overdosing on wellbutrin Medical Evaluation Reviewed: Yes HOSPITAL COURSE On the unit, pt was admitted on a CV and placed 15 minutes checks for safety. After reviewing risks,benefits and alternative treatment options, pt agreed to continue wellbutrin. He was continued on suboxone. He had been started inpatient on ambien- which was explained to pt should be continued by outpatient provider. Pt was started on ciwa for alcohol withdrawal and did required longer benzo taper. Thiamine was given and there was no medical complications related to alcohol withdrawal. Pt explained grayling of relapsing, increasing feeling of guilt, exacerbating PTSD symptoms which typically then results in intentional OD. Pt has not been able to stay in programs for dual dx and quickly has relapses which exacerbates his depression and sense of worthlessness. Given that his addiction has gotten to a point where pt has lost control over his substance use and is compromising his life to the point that relapses are triggering suicidal ideation, petition for [address]. Pt still hesitant about referrals for substance use despite extend of substance use and its impact on his mental health. Status at Discharge Cognitive/behavioral status at discharge: Pt with brighter, non labile affect. No SI/HI. No VH/AH. No delusions. Pt sleeping and eating well. No signs of aggression towards self or others. Functional status at discharge: independent ambulation Overall status at discharge: patient is progressing back to baseline Time Spent with Patient Time attestation: Total time managing care of this patient today ____ minutes. Time spent: Greater than 30 minutes Discharge Plan Discharge Anticipated Discharge Date/Time: 11/06/22 11:38 Patient Disposition: Home, Self-Care Discharge Diagnosis: Alcohol Use Disorder cocaine use disorder opioid use disorder MDD, recurrent, moderate PTSD Referrals: Bhupinder Morales APRN [Primary Care Provider] - 1 Week Discharge Medications: New cyclobenzaprine 10 mg Tablet 10 mg PO TID Qty: 90 0RF ferrous sulfate 324 mg (65 mg iron) Tablet,Delayed Release (Dr/Ec) 324 mg PO Q48H Qty: 30 0RF prazosin 2 mg capsule 4 mg PO BEDTIME Qty: 60 0RF propranolol 20 mg Tablet 20 mg PO BID Qty: 60 0RF Protocol: Hold for SBP/HR < HOLD for SBP < : 90 HOLD for HR < : 60 bupropion HCl 150 mg Tablet Extended Release 24 Hr 450 mg PO DAILY Qty: 45 0RF gabapentin 800 mg tablet 800 mg PO TID Qty: 90 0RF celecoxib 200 mg Capsule 200 mg PO BID Qty: 60 0RF lidocaine [Lidocaine Pain Relief] 4 % Adhesive Patch,Medicated 1 patch transdermal DAILY Qty: 30 0RF Protocol: Apply to: Apply to: lower back trazodone 100 mg Tablet 100 mg PO BEDTIME PRN (Reason: Insomnia) Qty: 30 0RF folic acid 1 mg Tablet 1 mg PO DAILY Qty: 30 0RF fluticasone propionate 50 mcg/actuation [place],Suspension 2 spray intranasal DAILY Qty: 0 0RF metronidazole 0.75 % Gel 1 appl topical BID Qty: 45 0RF thiamine mononitrate (vit B1) 100 mg Tablet 100 mg PO DAILY Qty: 30 0RF Continued multivitamin with folic acid [Tab-A-Tony] 400 mcg tablet 1 tab PO DAILY Rx Instructions: [facility] last filled 10/09/22 chlorpromazine 25 mg Tablet 25 mg PO BID PRN (Reason: Anxiety) Qty: 60 0RF Rx Instructions: [facility] last filled 09/23/22 buprenorphine-naloxone [Suboxone] 8-2 mg film 1 film sublingual TID Qty: 42 0RF Rx Instructions: [facility] Last fill 09/24/22 Discontinued prazosin 2 mg capsule 4 mg PO BEDTIME 30 Days Qty: 60 0RF Rx Instructions: [facility] last filled 09/24/22 nicotine 21 mg/24 hr Patch 24 Hour 21 mg transdermal DAILY 28 Days Qty: 28 0RF Rx Instructions: remove at bedtime metronidazole 0.75 % Gel 1 appl topical BID 30 Days Qty: 45 0RF gabapentin 800 mg tablet 800 mg PO TID Rx Instructions: [facility] last filled 10/03/22 methylphenidate HCl 20 mg Tablet 20 mg PO BID@0900,1300 Rx Instructions: [facility] last filled 10/03/22 zolpidem 10 mg Tablet 10 mg PO BEDTIME PRN (Reason: Insomnia) Patient Comments: [facility] last filled 10/21/22 folic acid 1 mg Tablet 1 mg PO DAILY Qty: 30 0RF Patient Comments: [facility] last filled 10/04/22 thiamine mononitrate (vit B1) 100 mg Tablet 100 mg PO DAILY Qty: 30 0RF Rx Instructions: [facility] last filled 10/04/22 Wellbutrin XL 300 mg PO DAILY Rx Instructions: [facility] last filled 10/17/22 ferrous sulfate [Iron (ferrous sulfate)] 325 mg (65 mg iron) Tablet 325 mg PO TID bupropion HCl 150 mg tablet extended release 24 hr 150 mg PO DAILY Rx Instructions: TAKE WITH 300 Discharge Orders: Discharge Order (Routine); Ordered 11/06/22 Ordered By: Cecile Perez Diet: Regular diet Activity on Discharge: As tolerated Stand Alone Forms: Patient Portal Discharge page, Community Support Care Plan Goals: 1. Maintain mood 2. NO SI/HI 3. Narcan to go Health Concerns: Follow up with PCP Plan of Treatment: 1. take medications as prescribed go to nearest ED or call 911 in event of emergency Assessment: Pt with brighter. Non labile affect. No SI/HI. No psychosis. Sleeping and eating well. No aggression towards self or others. Discharge Date/Time: 11/06/22 12:06
== END 2022-11-06 12:06 | disposition home or self-care (01) | DRG 751 ==
LOC: HO.ED 16:25 → HO.PADLT16 10-30 15:27
PROVIDERS: Physician Assistant; Admitting Provider Psychiatry & Neurology Psychiatry; Emergency Provider Emergency Medicine; PCP Nurse Practitioner; Visit Provider Social Worker
DX: F33.2 Major depressive disorder, recurrent severe without psychotic features (principal); R45.851 Suicidal ideations; F11.20 Opioid dependence, uncomplicated; F10.20 Alcohol dependence, uncomplicated; F14.20 Cocaine dependence, uncomplicated; L03.032 Cellulitis of left toe; F17.210 Nicotine dependence, cigarettes, uncomplicated; F43.12 Post-traumatic stress disorder, chronic; Z20.822 Contact with and (suspected) exposure to COVID-19; Z91.51 Personal history of suicidal behavior; Z71.6 Tobacco abuse counseling; Z79.51 Long term (current) use of inhaled steroids; Z79.899 Other long term (current) drug therapy
CPT/HCPCS: 36415; 80048; 80053; 80061; 80076; 80307; 81003; 82607; 82746; 83036; 83735; 84439; 84443; 85025; 87635; 93005; 99285; S9485

== ENCOUNTER 2023-02-24 21:24 | Inpatient (IN) | payer OTHER, SELFPAY ==
--- OUTSIDE RECORDS SUMMARY | 2023-02-24 21:26 | XMS_ITS | Continuity of Care Document ---
Author Name Unknown Organization [facility] ter Address [address] [place] [id number] Care Team Providers Care Field Care Advocate Name Role Phone Not on Staff, PCP Primary Care Physician Unavail able Encounter [facility] Date(s): 01/17/23 - 01/22/[address] [id number] Encounter Diagnosis Alcohol withdrawal(Final) - 01/17/23 Bupropion overdose(Final) - 01/17/23 Suicidal ideation(Final) - 01/17/23 Suicide attempt(Final) - 01/17/23 Discharge Disposition: Transfer to [facility] Facility Attending Physician: Betsey Arevalo MD Admitting Physician: Susan Majano DO Referring Physician: Not on Staff, Referring MD Allergies, Adverse Reactions, Alerts Substance Reaction Severity Status PHENobarbital Vomiting Moderate Active Immunizations Given and Recorded Vaccine Date Status Refusal Reason influenza virus vaccine, inactivated 03/28/22 Give n influenza virus vaccine, inactivated 03/21/21 Lc rded influenza virus vaccine, inactivated 06/09/18 Lc rded pneumococcal 23-valent vaccine 01/24/22 Recorded SARS-CoV-2 (COVID-19) mRNA-1273 vaccine 1 05/06/21 Given SARS-CoV-2 (COVID-19) mRNA-1273 vaccine 07/26/20 R ecorded SARS-CoV-2 (COVID-19) mRNA-1273 vaccine 06/28/20 R ecorded tetanus/diphtheria/pertussis, acel(Tdap) 09/27/20 Recorded tetanus/diphtheria/pertussis, acel(Tdap) 07/06/16 Given 1Early/Late Reason: Early/Late Reason: Other : awaiting pharmacy to bring up Medications acetaminophen 650 mg oral tablet, extended release 2 tablet = 1,300 mg, By Mouth, Every 8 hours, PRN as needed for pain, # 100 tablet, 0 Refills, Maintenance, 01/17/23 20:49:00 EDT, ER Tablet, Partial fill upon patient request if the prescription is for a schedule II opioid drug. Start Date: 01/17/23 Status: Ordered folic acid 1 mg oral tablet 1 mg, By Mouth, Daily, Refills 0, Maintenance, 01/22/23 13:03:00 EDT, Partial fill upon patient request if the prescription is for a schedule II opioid drug. Start Date: 01/22/23 Status: Ordered gabapentin 400 mg oral capsule 800 mg, Capsule, By Mouth, 01/22/23 15:00:00 EDT Start Date: 01/22/23 Stop Date: 01/22/23 Status: Completed gabapentin 400 mg oral capsule 800 mg, 2, capsule, By Mouth, 3 times a day, # 120 capsule, Refills 0, Maintenance, 01/17/23 20:49:00 EDT, Partial fill upon patient request if the prescription is for a schedule II opioid drug. Start Date: 01/17/23 Status: Ordered LORazepam 1 mg oral tablet = 1 mg, By Mouth, Every 4 hours, PRN Other, Give if 2 or more of the following objective signs of alcohol withdrawal: HR >110, SBP >140, miki tremors, obvious diaphoresis., 0 Refills, Maintenance, 01/22/23 13:03:00 EDT, Tablet, Partial fill upon marina... Start Date: 01/22/23 Status: Ordered Multivitamin Tablet 1 tablet, By Mouth, Daily, 0 Refills, Maintenance, 01/22/23 13:03:00 EDT, Tablet, Partial fill uponpatient request if the prescription is for a schedule II opioid drug. Start Date: 01/22/23 Status: Ordered prazosin 5 mg oral capsule 5 mg, By Mouth, Daily at bedtime, Refills 0, Maintenance, 01/22/23 13:03:00 EDT, Partial fill upon patient request if the prescription is for a schedule II opioid drug. Start Date: 01/22/23 Status: Ordered prazosin 5 mg oral capsule 5 mg, Capsule, By Mouth, 01/21/23 21:00:00 EDT Start Date: 01/21/23 Stop Date: 01/21/23 Status: Completed Pyridoxine Tablet 50 mg, By Mouth, Daily, Refills 0, Maintenance, 01/22/23 13:03:00 EDT, Partial fill upon patient request if the prescription is for a schedule II opioid drug. Start Date: 01/22/23 Status: Ordered SEROquel 100 mg oral tablet 150 mg, By Mouth, Daily at bedtime, Refills 0, Maintenance, 01/22/23 13:03:00 EDT, Partial fill upon patient request if the prescription is for a schedule II opioid drug. Start Date: 01/22/23 Status: Ordered Suboxone 8 mg-2 mg sublingual film 1 film, Sublingual, 3 times a day, dissolve under the tongue, 0 Refills, Maintenance, 01/17/23 20:49:00 EDT, Film, Partial fill upon patient request if the prescription is for a schedule II opioid drug. Start Date: 01/17/23 Status: Ordered thiamine 100 mg oral tablet 100 mg, By Mouth, 2 times a day, Refills 0, Maintenance, 01/22/23 13:03:00 EDT, Partial fill upon patient request if the prescription is for a schedule II opioid drug. Start Date: 01/22/23 Status: Ordered Problem List Condition Confirmation Course Effective Dates Status H ealth Status Informant Alcohol abuse Confirmed Active Closed fracture of mandible Confirmed Active Polysubstance abuse Confirmed Active Vital Signs Most recent to oldest [Reference Range]: 1 2 3 Height 186 cm (01/21/23 4:31 PM) 186 cm (01/21/23 12:38 PM) 186 cm (01/21/23 10:47 AM) Weight 99.2 kg (01/17/23 11:10 PM) Oxygen Saturation [94-100 %] 96 % (01/22/23 7:00 AM) 96 % (01/21/23 4:31 PM) 93 % *L* (01/21/23 12:38 PM) Pulse Rate [55-90 bpm] 80 bpm (01/22/23 12:41 PM) 66 bpm (01/22/23 7:00 AM) 66 bpm (01/21/23 4:31 PM) Body Mass Index [18.5-24.99 kg/m2] 28.67 kg/m2 *H* (01/17/23 11:10 PM) Blood Pressure [90-138/55-84 mm Hg] 148/66mm Hg *H* (8/30/23 12:41 PM) 139/65mm Hg *H* (01/22/23 7:00 AM) 129/80mm Hg (01/21/23 9:35 PM) Respiratory Rate [16-30 br/min] 18 br/min (01/22/23 3:46 PM) 18 br/min (01/22/23 2:46 PM) 19 br/min (01/22/23 12:41 PM) Temperature [96.8-100.4 DegF] 97.5 DegF (01/22/23 7:00 AM) 98 DegF (01/21/23 4:31 PM) 97.8 DegF (01/21/23 10:47 AM) Liters per Minute 2 L/min (01/18/23 6:00 AM) 2 L/min (01/18/23 4:00 AM) 2 L/min (01/18/23 2:00 AM) Mode of Delivery (Oxygen) Room air (01/22/23 7:00 AM) Room air (01/21/23 4:31 PM) Room air (01/21/23 12:38 PM) Blood pressure sites Arm, right (01/21/23 4:31 PM) Arm, right (01/21/23 12:38 PM) Arm, left (01/21/23 10:47 AM) Temperature Route Oral (01/22/23 7:00 AM) Oral (01/21/23 4:31 PM) Oral (01/21/23 12:38 PM) Dry Weight 99.2 kg (01/17/23 11:10 PM) 99.2 kg (01/17/23 10:55 PM) 100 kg (01/17/23 6:39 PM) Dry Weight Obtained Via Patient/family s tated (01/17/23 3:27 PM) Social History Social History Type Response Smoking Status Current every day etta dick; Tobacco user in household: No entered on: 07/26/16 Sex Admission evaluation note * Júnior CAMPOVERDE, Fransico: PERFORM, MODIFY, MODIFY, MODIFY Event Display: Admission Note Authored Date: [id number] Patient: ??CORWIN BROWN ? Age:??52 Years?Sex:??Male?:??1970?? 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 ?? Patient reports that he has been feeling very down and depressed lately and felt like he just did not want to be here anymore . ??Patient reports that he has stopped going to his substance use support meetings and 3 days ago relapsed back on alcohol and crack cocaine. ??He reports that he has beendrinking a pint of liquor every day along with multiple beers daily. ??Last drink was approximately 20 hours ago. ??Patient reported that he felt so depressed that he wanted to end his life and took approximately 10 tablets of 300 mg each Wellbutrin. ??Patient reports that after several hours of ingesting Wellbutrin, he regretted his decision and subsequently came to the emergency department for further evaluation management. ??Currently he denies having any headaches, no changes in vision, he does report having tremors in his hands and feels a little nauseous. ??No chest pain or shortness ofbreath, no abdominal pain, diarrhea, constipation or dysuria. ??He is still endorsing suicidal ideations, denies any homicidal ideations. ?? Patient received activated charcoal in the ED. ??Poison control was consulted by the ED and by myself as well, recommending every 4 hour EKGs to assess QTc and QRS interval, seizure precautions. ??Patient will be admitted to intermediate care unit for close monitoring of hemodynamics. Review of Systems All systems are reviewed??and are negative except as noted above in the HPI. Objective Vital Signs?? Temperature: 98 DegF (01/17/23 18:39:00) Temperature Route: Oral (01/17/23 18:39:00) Pulse Rate: 68 bpm (01/17/23 18:39:00) Respiratory Rate: 18 br/min (01/17/23 18:39:00) Systolic Blood Pressure: 109 mm Hg (01/17/23 18:11:00) Diastolic Blood Pressure: 71 mm Hg (01/17/23 18:11:00) Blood pressure sites: Arm, right (01/17/23 18:11:00) Mean Arterial Pressure: 84 mm Hg (01/17/23 18:11:00) Pulse Pressure: 38 mm Hg (01/17/23 18:11:00) Oxygen Saturation: 94 % (01/17/23 18:39:00) Mode of Delivery (Oxygen): room air (01/17/23 18:39:00) ? Physical Exam General: Alert, oriented x4, no acute cardiopulmonary distress HEENT: Atraumatic, normocephalic, EOMI, PERRL Neck: Supple, trachea midline Respiratory: CTA B, no wheezes, crackles or rhonchi CVS: S1, S2. ??RRR, no MRG, no JVD Abdomen: Soft, nontender, nondistended, positive bowel sounds Musculoskeletal: No deformities, no cyanosis Neuro: Alert and oriented x4, no facial asymmetry, sensations intact, moving all extremities spontaneously Psych: Anxious, depressed mood, does endorse suicidal ideations, no homicidal ideations Assessment/Plan Diagnoses Alcohol withdrawal ??(F10.939) Bupropion overdose ??(T43.291A) Suicide attempt ??(T14.91XA) ? 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 ?? Suicide attempt Toxic ingestion Wellbutrin overdose Anxiety/major depression ?? -We will admit the patient to intermediate care unit for close monitoring of hemodynamics. ??Poisoncontrol has been consulted by the ED and by myself as well, poison control is recommending every 4 hours EKGs to assess QTc and QRS widening, QTc currently 462. ??We will repeat an EKG in 4 hours andfollow-up. ??Discussed the plan with RN taking care of the patient down in the ED. ??Poison controlis also recommending to keep the potassium greater than 4 and magnesium greater than 2. ??His potassium has been repleted in the ED and we will repeat electrolytes in a.m. ??We will repeat CBC, BMP and LFTs in a.m. ??The biggest concern right now is decreased threshold of seizures given Wellbutrin overdose along with the fact that he does have a history of alcohol withdrawal seizures in the past and his last alcohol intake was approximately 20 hours ago. ??Poison control is recommending to use benzodiazepines in case he has a seizure rather than AEDs for now. ??Continue with IV fluids, we will hold off his psychiatric medications for now. ??Constant paid search analyst, maintain seizure precautions, m aintain suicidal precautions. ??U-Tox is pending which we will follow-up. ??We will also request psychiatry consultation for further evaluation and management ?? Alcohol abuse Alcohol withdrawal seizures in the past History of heroin abuse now on Suboxone Cocaine abuse ?? -Social work consult has been requested. ??We will start the patient on CIWA protocol, continue with thiamine, folate, pyridoxine, lorazepam as per CIWA protocol. ?? DVT prophylaxis: Enoxaparin ?? CODE STATUS: Full code. ?? Histories Allergies Allergies ?(Active and Proposed Allergies Only) PHENobarbital? (Severity: Moderate, Onset: 2020) ?Reactions: Vomiting ? Past medical history: Alcohol abuse History of cocaine abuse and IV heroin abuse now on Suboxone Anxiety/depression Multiple suicidal attempts in the past ?? Past surgical history: Jaw fracture repair ?? 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 ??Also with a history of crack cocaine use, last used 3 days ago ?? Family history: Mother with history of coronary artery disease ? Medications Home Medications Acetaminophen (acetaminophen 650 mg oral tablet, extended release)?2?tab(s)?1,300?Milligram?By Mouth?Every 8 hours?as needed?as needed for pain Buprenorphine-Naloxone (Suboxone 8 mg-2 mg sublingual film)?1?Film?Sublingual?3 times aday?dissolve under the tongue BuPROpion (Wellbutrin XL 300 mg/24 hours oral tablet, extended release)?1?tab(s)?300?Milligram?By Mouth?Daily Gabapentin (gabapentin 400 mg oral capsule)?800?Milligram?2?capsule?By Mouth?3 times a day HydrOXYzine (hydrOXYzine pamoate 50 mg oral capsule)?1?capsule?50?Milligram?By Mouth?4 times a day?as needed?for anxiety Methocarbamol (methocarbamol 750 mg oral tablet)?1?tab(s)?750?Milligram?By Mouth?3 times a day?as needed?Spasm?for 10?Days Methylphenidate (methylphenidate 20 mg oral tablet)?1?tab(s)?20?Milligram?By Mouth?2 times a day Trazodone (traZODone 100 mg oral tablet)?100?Milligram?1?tablet?By Mouth?Daily atbedtime ? Results Recent Labs BLOOD COUNT & DIFF WBC 7.1 k/mm3 ()?? 01/17/2023 17:53 RBC 4.26 m/mm3 (Low)?? 01/17/2023 17:53 Hgb 13.0 Gm/dL (Low)?? 01/17/2023 17:53 Hct 38.8 % (Low)?? 01/17/2023 17:53 MCV 91.1 femtoliters ()?? 01/17/2023 17:53 MCH 30.5 pg ()?? 01/17/2023 17:53 MCHC 33.5 g/dL ()?? 01/17/2023 17:53 Platelet Count 212 k/mm3 ()?? 01/17/2023 17:53 RDW-SD 44.3 femtoliters ()?? 01/17/2023 17:53 MPV 10.8 femtoliters ()?? 01/17/2023 17:53 Nucleated RBC (Automated) 0.0 #/100 WBC'S ()?? 01/17/2023 17:53 Abs. NRBC 0.0 k/mm3 ()?? 01/17/2023 17:53 Abs. Neut 5.0 k/mm3 ()?? 01/17/2023 17:53 Abs. Lymph 1.4 k/mm3 ()?? 01/17/2023 17:53 Abs. Dodge 0.5 k/mm3 ()?? 01/17/2023 17:53 Abs. Eo 0.1 k/mm3 ()?? 01/17/2023 17:53 Abs. Baso 0.0 k/mm3 ()?? 01/17/2023 17:53 Neut % 70.8 % ()?? 01/17/2023 17:53 Lymph % 19.5 % ()?? 01/17/2023 17:53 Dodge % 6.8 % ()?? 01/17/2023 17:53 Eos % 2.0 % ()?? 01/17/2023 17:53 Baso % 0.6 % ()?? 01/17/2023 17:53 Imm Gran 0.3 % ()?? 01/17/2023 17:53 Abs. Imm Gran 0.0 k/mm3 ()?? 01/17/2023 17:53 ?? CHEM GENERAL Sodium 144 mmol/L ()?? 01/17/2023 17:53 Potassium 3.8 mmol/L ()?? 01/17/2023 17:53 Chloride 104 mmol/L ()?? 01/17/2023 17:53 Bicarbonate Level 25 mmol/L ()?? 01/17/2023 17:53 Anion Gap 15 ()?? 01/17/2023 17:53 Glucose Level 128 mg/dL (High)?? 01/17/2023 17:53 BUN 21 mg/dL (High)?? 01/17/2023 17:53 Creatinine-Blood 0.9 mg/dL ()?? 01/17/2023 17:53 Estimated GFR Creatinine 100 ML/MIN/1.73 M2 ()?? 01/17/2023 17:53 Calcium 9.1 mg/dL ()?? 01/17/2023 17:53 Magnesium 2.4 mg/dL (High)?? 01/17/2023 17:53 Protein, Total 6.6 Gm/dL ()?? 01/17/2023 17:53 Albumin 4.6 Gm/dL ()?? 01/17/2023 17:53 AG Ratio 2.3 ()?? 01/17/2023 17:53 Alkaline Phosphatase 70 units/L ()?? 01/17/2023 17:53 AST (SGOT) 42 units/L (High)?? 01/17/2023 17:53 ALT (SGPT) 25 units/L ()?? 01/17/2023 17:53 Bilirubin, Total 0.5 mg/dL ()?? 01/17/2023 17:53 ?? ENDOCRINE/TUMOR MARKER TSH 0.93 uIU/mL ()?? 01/17/2023 17:53 ?? TOXICOLOGY/TDM Ethanol, Serum or Plasma NONE DETECTED mg/dL ()?? 01/17/2023 17:53 Salicylate Level <0.3 mg/dL (Low)?? 01/17/2023 17:53 Acetaminophen Level <5 mg/L (Low)?? 01/17/2023 17:53 ?? URINE OTHER Est Creatinine Clearance 109.22 mL/min ()?? 01/17/2023 18:52 ?? VIROLOGY COVID-19 by RT-PCR NEGATIVE ()?? 01/17/2023 18:49 ? EKG study * Event Display: EKG Authored Date: * Event Display: ECG 12-Lead Authored Date: Please click on pdf link to open report * Event Display: ECG 12-Lead Authored Date: [id number] Ventricular Rate: 71 BPM Atrial Rate: 71 BPM P-R Interval: 128 ms QRS Duration: 90 ms Q-T Interval: 414 ms QTC Calculation(Bazett): 449 ms P Hampton: 62 degrees R Hampton: 27 degrees T Hampton: 40 degrees Normal sinus rhythm Normal ECG When compared with ECG of 18-JAN-2023 16:17, MANUAL COMPARISON REQUIRED, DATA IS UNCONFIRMED Confirmed by JONO CAICEDO MD () on 01/19/2023 10:24:48 AM [place]: JONO CAICEDO MD * Event Display: ECG 12-Lead Authored Date: [id number] Please click on pdf link to open report * Event Display: ECG 12-Lead Authored Date: [id number] Ventricular Rate: 63 BPM Atrial Rate: 64 BPM P-R Interval: 130 ms QRS Duration: 88 ms Q-T Interval: 444 ms QTC Calculation(Bazett): 454 ms P Hampton: 62 degrees R Hampton: 41 degrees T Hampton: 37 degrees Normal sinus rhythm Normal ECG When compared with ECG of 18-JAN-2023 11:52, MANUAL COMPARISON REQUIRED, DATA IS UNCONFIRMED Confirmed by JONO CAICEDO MD () on 01/19/2023 10:26:04 AM [place]: JONO CAICEDO MD * Event Display: ECG 12-Lead Authored Date: [id number] Please click on pdf link to open report * Event Display: ECG 12-Lead Authored Date: [id number] Ventricular Rate: 69 BPM Atrial Rate: 69 BPM P-R Interval: 144 ms QRS Duration: 90 ms Q-T Interval: 426 ms QTC Calculation(Bazett): 456 ms P Hampton: 56 degrees R Hampton: 17 degrees T Hampton: 27 degrees Normal sinus rhythm Normal ECG When compared with ECG of 18-JAN-2023 07:58, MANUAL COMPARISON REQUIRED, DATA IS UNCONFIRMED Confirmed by JONO CAICEDO MD () on 01/18/2023 6:11:56 PM [place]: [facility] * Siena , Page: PERFORM, SIGN, VERIFY, SIGN, MODIFY Event Display: [facility] Authored Date: [id number] Patient: CORWIN BROWN Age: 52 years Sex: Male : 1970 Associated Diagnoses: None Author: Lis Wren Findings Narrative/Incidental Brief nursing note placed for supportive information. RN called to the bedside to assist patient request. Patient, Jakob, states I need to be scored againfor my DT's . He extended his arms out to display tremulous hands. I asked him to touch the tip of my finger while his arms were extended and there were no tremors noted. BP taken; 148/66 and HR 80. I assessed diaphoresis simulaneously while feeling for his pulse. He was not diaphoretic. Throughoutmy assessment, the patient was verbally escalating while scrolling through his medications on his [facility] on the TV. He continued to elevate the volume of his voice while proclaiming that he needs to get upstairs to aptu where they can properly fucking handle my mental health . He was pr ovided empathic listening but eventually proclaims that the nurses on this floor are a waste of time and no help to him and to just knock him the fuck out . Jakob was provided education on the medications available to him. He was informed on the freqency of his PRNs and the limitations for administration. He was informed that I would reach out to his MD to inform them of his concerns. He was grateful for this and asks to be left alone. Information shared with his assigned nurse for continuity of care and safety. . * Siena , Page: PERFORM Event Display: Progress Note Hospital Authored Date: Patient was medicated with Ativan 1 mg PO, Haldol 5 mg PO and Propranolol 20 mg PO. MD aware. * Betsey Arevalo MD: PERFORM Event Display: Progress Note Hospital Authored Date: [id number] Patient: ??CORWIN BROWN ? Age:??52 Years?Sex:??Male?:??1970?? Subjective Patient feels so so today. He would like to be placed in a psychiatric unit for his suicide attempt. Currently denies suicide ideation. Discontinue constant paid search analyst. ?? Psych referred patient for psychiatric bed search. Review of Systems Constitutional: No weight loss, fatigue,??fever, chills Cardiovascular:??No chest pain, palpitations, edema Respiratory: No shortness of breath, cough, or sputum production Gastrointestinal: No nausea, vomiting, diarrhea, abdominal pain. Genitourinary: No burning micturition. No urinary frequency or incontinence. Neurologic: No headache, dizziness, syncope, unilateral weakness, ataxia, numbness or tingling in the extremities. No change in bowel or bladder control. Musculoskeletal: No muscle pain, back pain, joint pain or stiffness Allergies Allergies ?(Active and Proposed Allergies Only) PHENobarbital? (Severity: Moderate, Onset: 2020) ?Reactions: Vomiting ? Objective Vital Signs?? Temperature: 97.5 DegF (01/22/23 07:00:00) Temperature Route: Oral (01/22/23 07:00:00) Pulse Rate: 66 bpm (01/22/23 07:00:00) Respiratory Rate: 18 br/min (01/22/23 11:24:00) Systolic Blood Pressure:??139 mm Hg??High (01/22/23 07:00:00) Diastolic Blood Pressure: 65 mm Hg (01/22/23 07:00:00) Blood pressure sites: Arm, right (01/21/23 16:31:00) Mean Arterial Pressure: 70 mm Hg (01/21/23 16:31:00) Pulse Pressure: 74 mm Hg (01/22/23 07:00:00) Oxygen Saturation: 96 % (01/22/23 07:00:00) Mode of Delivery (Oxygen): Room air (01/22/23 07:00:00) Early Warning Score: 2 (01/22/23 11:15:22) ? Intake/Output? 01/17 19:02 01/22 07:00 01/21 07:00 01/20 07:00 01/19 07:00 ?? 01/22 12:45 01/22 12:45 01/22 06:59 01/21 06:59 01/20 06:59 Intake ? 2980 ?0 ?660 ?240 ? 1000 Output ?600 ?0 ?0 ?300 ?300 Net Total ? 2380 ?0 ?660 ?-60 ?700 ? Urine Count ? 13 ?0 ?4 ?2 ?5 ? Physical Exam Constitutional: Alert, in no acute distress. Head EENT: Extraocular muscle movement intact.??Moist mucous membranes.?? Neck: Supple. No JVD. Respiratory: Clear to auscultation. No wheezing or crackles. No use of accessory muscles. Cardiovascular: S1S2 regular. No murmurs, rubs or gallops. Gastrointestinal: Abdomen soft, non-tender, non-distended. Normal bowel sounds. Genitourinary: No CVA tenderness. Extremities: No lower extremity pitting??edema. No cyanosis or clubbing. Neurologic: AAOx3, Speech normal. No focal neurological deficits. _ Inpatient Medications Medications (22) Active SCHEDULED: (10) buprenorphine-naloxone 8 mg-2 mg Film (Suboxone 8 mg-2 mg Sublingual Film) ??1 film, Sublingual, 3 times a day Enoxaparin 40 mg Inj (Enoxaparin Inj) ??40 mg 0.4 mL, Subcutaneous Injection, Daily Folic Acid 1 mg Tablet (Folic Acid Tablet) ??1 mg, By Mouth, Daily Gabapentin 400 mg Capsule (gabapentin 400 mg oral capsule) ??800 mg, By Mouth, 3 times a day Multivitamin Tablet ??1 tablet, By Mouth, Daily NaCl 0.9% Flush 3ml (NaCL 0.9% Flush) ??3 mL, IV Push, Every 8 hours Prazosin 5 mg Capsule (prazosin 5 mg oral capsule) ??5 mg, By Mouth, Daily at bedtime Pyridoxine 50 mg Tablet (Pyridoxine Tablet) ??50 mg, By Mouth, Daily Quetiapine 100 mg Tablet (SEROquel 100 mg oral tablet) ??150 mg, By Mouth, Daily at bedtime Thiamine 100 mg Tablet (Thiamine Tablet) ??100 mg, By Mouth, 2 times a day CONTINUOUS: (0) PRN: (12) Acetaminophen 325 mg Tablet (Acetaminophen Tablet) ??650 mg, By Mouth, Every 4 hours Dextromethorphan-Guaifenesin 20 mg-200 mg/10 mL Liqu UD (Robitussin DM Liquid) ??10 mL, By Mouth, Every 4 hours Haloperidol 5 mg Tablet (haloperidol 5 mg oral tablet) ??5 mg, By Mouth, Every 6 hours Haloperidol Lactate 5 mg/mL Inj (1 mL) (Haloperidol LACTATE Inj) ??5 mg 1 mL, Intramuscular, Every 6 hours Lorazepam 1 mg Tablet (LORazepam 1 mg oral tablet) ??1 mg, By Mouth, Every 4 hours Melatonin 3 mg Tablet (Melatonin Tablet) ??3 mg, By Mouth, Daily at bedtime NaCl 0.9% Flush 3ml (NaCL 0.9% Flush) ??3 mL, IV Push, Every 8 hours Ondansetron 4 mg ODT (Zofran ODT 4 mg oral tablet, disintegrating) ??4 mg, By Mouth, Every 6 hours Polyethylene Glycol 17 Gm Powder (MiraLax Powder) ??17 Gm 1 pack/packet, By Mouth, Daily Propranolol 20 mg Tablet (propranolol 20 mg oral tablet) ??20 mg, By Mouth, 2 times a day Senna 8.6 mg / Docusate 50 mg tablet (Docusate/Senna Tablet) ??1 tablet, By Mouth, 2 times a day Simethicone 80 mg Chewable Tablet (Simethicone Tablet) ??80 mg, Chew, 3 times a day ? Results Recent Labs BLOOD COUNT & DIFF WBC 4.1 k/mm3 ()?? 01/21/2023 09:59 RBC 4.18 m/mm3 (Low)?? 01/21/2023 09:59 Hgb 12.7 Gm/dL (Low)?? 01/21/2023 09:59 Hct 37.2 % (Low)?? 01/21/2023 09:59 MCV 89.0 femtoliters ()?? 01/21/2023 09:59 MCH 30.4 pg ()?? 01/21/2023 09:59 MCHC 34.1 g/dL ()?? 01/21/2023 09:59 Platelet Count 204 k/mm3 ()?? 01/21/2023 09:59 RDW-SD 42.0 femtoliters ()?? 01/21/2023 09:59 MPV 10.9 femtoliters ()?? 01/21/2023 09:59 Nucleated RBC (Automated) 0.0 #/100 WBC'S ()?? 01/21/2023 09:59 Abs. NRBC 0.0 k/mm3 ()?? 01/21/2023 09:59 ?? CHEM GENERAL Sodium 140 mmol/L ()?? 01/21/2023 09:59 Potassium 3.9 mmol/L ()?? 01/21/2023 09:59 Chloride 103 mmol/L ()?? 01/21/2023 09:59 Bicarbonate Level 25 mmol/L ()?? 01/21/2023 09:59 Anion Gap 12 ()?? 01/21/2023 09:59 Glucose Level 143 mg/dL (High)??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 femtoliters???MPV - 10.9 femtoliters???Nucleated RBC (Automated) - 0.0 #/100 WBC'S???Abs. NRBC - 0.0 k/mm3 Comprehensive Metabolic Panel (01/17/2023) ???Sodium - 144 mmol/L???Potassium - 3.8 mmol/L???Chloride - 104 mmol/L???Bicarbonate Level - 25 mmol/L???Anion Gap - 15???Glucose Level - 128 mg/dL???BUN - 21 mg/dL???Creatinine-Blood - 0.9 mg/dL???Estimated GFR Creatinine - 100 ML/MIN/1.73 M2???Calcium - 9.1 mg/dL???Protein, Total - 6.6 Gm/dL???Al bumin - 4.6 Gm/dL???AG Ratio - 2.3???Alkaline Phosphatase - 70 units/L???AST (SGOT) - 42 units/L???ALT (SGPT) - 25 units/L???Bilirubin, Total - 0.5 mg/dL COVID-19 (Novel Coronavirus), Rapid PCR (01/17/2023) ???COVID-19 by RT-PCR - NEGATIVE Ethanol Level (01/17/2023) ???Ethanol, Serum or Plasma - NONE DETECTED HOLD GEL TUBE (01/17/2023) ???Hold Gel Top - SPECIMEN DISCARDED AFTER 1 WEEK HOLD GATES TUBE (01/17/2023) ???Hold Gates Top - SPECIMEN DISCARDED AFTER 1 WEEK MAGNESIUM (01/21/2023) ???Magnesium - 2.1 mg/dL Mg Level (01/19/2023) ???Magnesium - 2.0 mg/dL PHOSPHORUS (01/21/2023) ???Phosphorus - 3.4 mg/dL TSH WITH REFLEX TO FT4 (01/17/2023) ???TSH - 0.93 uIU/mL Allergies (NKA means No Known Allergies) PHENobarbital??(Vomiting) Problems Active Problems??(3) Alcohol abuse?? Closed fracture of mandible?? Polysubstance abuse?? Education Materials Below is the list of Educational Leaflet Providered with your Discharge Instructions. Valuables and Belongings I fully understand and agree that [facility] accepts no responsibility for all my personal property including clothing, toilet articles, radios, jewelry, dentures, hearing aids, rings, money, or any other property that is in my possession or is brought to me after admission. I understand certain valuables may be placed in a hospital safe for a short period of time. I understand that the hospital is not liable for loss or damage due to accident, fire, or other natural occurrence while said property is in the safe. I accept full responsibility for any personal property that I keep with me, and will not hold the hospital responsible in case of loss or disappearance. I acknowledge that i have been encouraged to send valuables and belongings home. ?? Safe envelope number: [id number] Review of Valuable and Belonging List: With witness Disposition of Belongings: Valuables Locked Date for Pt to Sign Valuables/Belongings: 01/22/23 01:19:00 ?? Other Discharge Information ? Pulmonary Rehab Status?? Pulmonary Rehab Discharge Status?? Respiratory Rate: 18 br/min ? Common Emergency Awareness Tips IS IT A STROKE? Act FAST and Check for these signs: FACE Does the face look uneven? ARM Does one arm drift down? SPEECH Does their speech sound strange? TIME Call at any sign of stroke ?? Heart Attack Signs Chest discomfort: Most heart attacks involve discomfort in the center of the chest and lasts more than a few minutes, or goes away and comes back. It can feel like uncomfortable pressure, squeezing, fullness or pain. Discomfort in upper body: Symptoms can include pain or discomfort in one or both arms, back, neck, jaw or stomach. Shortness of breath: With or without discomfort. Other signs: Breaking out in a cold sweat, nausea, or lightheaded. Remember, MINUTES DO MATTER. If you experience any of these heart attack warning signs, call to get immediate medical attention! ?? Smoking can increase your chances of developing chronic health problems and can cause harmful effects to other family members in your house. If you smoke, you are strongly encouraged to quit. Please call [facility] at [phone] or [phone] ([phone]) or log in to [email or web address] for referrals to smoking cessation programs. ?? 770 Suicide & Crisis Lifeline is available 16/12 if you or someone you know needs to find a reason to keep living. By calling 381 you'll be connected to a skilled, trained counselor at a crisis center in your area. INPATIENT DISCHARGE INSTRUCTIONS SIGNATURE PAGE CORWIN BROWN Location:[facility] Registration Date and Time:01/17/2023 19:02 EDT Primary Care Physician: Not on Staff, PCP Attending Physician: Betsey Arevalo MD, I CORWIN BROWN, have received the above patient education materials/instructions and have verbalized understanding. If ambulance or transport services are being used I further acknowledge being given a choice of service. ?? If you need to contact me, please call me at this number: . Patient/Fence Setter Name: Patient/Fence Setter Signature: Relationship to Patient: Witness Name/Signature: Date: Patient Care team information Care Team Personnel Name: Jania Lopez RN Position: [facility] RN Member Role: Primary Care Nurse Name: Alondra Love RN Position: [facility] RN Member Role: Primary Care Nurse Name: Adelita Freire RN Position: [facility] RN Member Role: Primary Care Nurse Name: Brunilda Fisher Position: [facility] RN Member Role: Primary Care Nurse Name: Stephanie Cid Position: [facility] Outreach Member Role: Lifetime Consulting Physician Name: Garth Otoole Position: [facility] Outreach Member Role: Primary Care Nurse Name: Yun Wood Position: [facility] Outreach Member Role: Lifetime Consulting Physician Name: Eva Beavers RN Position: [facility] RN Member Role: Primary Care Nurse Name: Santiago Dickinson MA Position: [facility] GI MA Member Role: Lifetime Consulting Physician Name: Zelda Reveles RN Position: [facility] RN Member Role: Primary Care Nurse Name: Amaya Long RN Position: [facility] RN Member Role: Primary Care Nurse Name: Amira Escobar RN Position: [facility] RN Member Role: Primary Care Nurse Name: Jania De La Rosa Position: [facility] RN Member Role: Primary Care Nurse Name: Betsey Turcios RN Position: [facility] ED RN W/OE and Tasks Member Role: Primary Care Nurse Name: Sofie Walden NP Position: Reference Physician Member Role: Primary Care Nurse Address: Address: [address] [place] [address] Name: Linda Russo RN Position: [facility] RN Member Role: Primary Care Nurse Name: Lester Covarrubias RN Position: [facility] RN Member Role: Primary Care Nurse Name: Not on Staff, PCP Position: [facility] Physician (General Medicine) Member Role: PCP Name: Flora Taylor RN Position: [facility] RN Member Role: Primary Care Nurse Name: Frank Lara RN Position: [facility] RN Member Role: Primary Care Nurse Name: Olesya Avalos RN Position: [facility] RN Member Role: Primary Care Nurse Name: Suha Bryant RN Position: [facility] RN Member Role: Primary Care Nurse Name: Jolene Ceja RN Position: [facility] RN Member Role: Primary Care Nurse Name: Jenny Osuna RN Position: [facility] Hospital Hops Farmworker Member Role: Primary Care Nurse Name: Bernadine Berg RN Position: [facility] RN Member Role: Primary Care Nurse Name: AndresLorraine Lane Attending Position: [facility] ED Medicine MD Name: Trinh Ross Position: [facility] ED OA Charge Member Role: ED Associate Name: Kay Mejia DO Position: [facility] Resident Member Role: ED Resident Address: Address: [address] [place] [id number]- Name: Durga Martínez RN Position: [facility] ED RN W/OE and Tasks Member Role: Patient Care Provider Name: Dina Palacios Position: [facility] ED TA [facility] Member Role: Corporate Compliance Director Care Team Related Persons Name: PATIENT STATES, NO ONE
--- OUTSIDE RECORDS SUMMARY | 2023-02-24 21:26 | XMS_ITS | Continuity of Care Document ---
Author Name Unknown Organization [facility] Address [address] [place] [address]- Care Team Providers Care Motion Study Analyst Name Role Phone Dionicio FLEXO OPERATOR, Caitlyn Primary Care Physician [place] [facility] [place]04[place] - 08/03/[address] [id number] Attending Physician: Admilene, Mohinder Admitting Physician: Admtr, [id number] Referring Physician: Admtr, [id number] Allergies, Adverse Reactions, Alerts Substance Reaction Severity [...] 0, Maintenance, 03/27/22 13:52:00 EDT, Partial fill uponpatient request if the prescription is for a schedule II opioid drug. Start Date: 03/27/22 Status: Ordered buprenorphine-naloxone 8 mg-2 mg sublingual film 1 film, Sublingual, 2 times a day, # 12 film, 0 Refills, Maintenance, 04/16/22 8:57:00 EST, Film, [facility], Partial fill upon patient request if the prescription is for a schedule II opioid drug., 1 film Sublingual 2 times a day, 185,... Start Date: 04/16/22 Status: Ordered folic acid 1 mg oral tablet 1 mg, 1, tablet, By Mouth, Daily, Refills 0, Maintenance, 03/27/22 13:52:00 EDT, Partial fill upon patient request if the prescription is for a schedule II opioid drug. Start Date: 03/27/22 Status: Ordered gabapentin 800 mg oral tablet 1 tablet = 800 mg, By Mouth, 3 times a day, # 90 tablet, 0 Refills, Maintenance, 08/02/21 16:43:00 EST, Tablet, [facility], Partial fill upon patient request if the prescription is for aschedule II opioid drug., 180, cm, 08/02/21 10:39:0... Start Date: 08/02/21 Status: Ordered hydrOXYzine pamoate 50 mg oral capsule = 50 mg, By Mouth, Every 6 hours, PRN Anxiety, 0 Refills, Maintenance, 04/16/22 8:20:00 EST, Capsule, Partial fill upon patient request if the prescription is for a schedule II opioid drug. Start Date: 04/16/22 Status: Ordered Melatonin Daily at bedtime, 0 Refills, Maintenance, 01/02/22 14:19:00 EDT, Partial fill upon patient request if the prescription is for a schedule II opioid drug. Start Date: 01/02/22 Status: Ordered Multivit Therapeutic/Minerals Tablet 1 tablet, By Mouth, Daily, 0 Refills, Maintenance, 03/27/22 13:52:00 EDT, Tablet, Partial fill uponpatient request if the prescription is for a schedule II opioid drug. Start Date: 03/27/22 Status: Ordered naproxen 250 mg oral tablet 250 mg, 1, tablet, By Mouth, 2 times a day, PRN, Refills 0, Maintenance, Pain , Moderate, 03/27/22 13:52:00 EDT, Partial fill upon patient request if the prescription is for a schedule II opioid drug. Start Date: 03/27/22 Status: Ordered Nicotine = 21 mg, Topically, Daily, 0 Refills, Maintenance, 03/27/22 13:52:00 EDT, Patch, Partial fill upon patient request if the prescription is for a schedule II opioid drug. Start Date: 03/27/22 Status: Ordered Nicotine Gum 2 mg, Chew, Every hour, PRN, Nicotine Cravings, Refills 0, Maintenance, Other, 03/27/22 13:52:00 EDT, Partial fill upon patient request if the prescription is for a schedule II opioid drug. Start Date: 03/27/22 Status: Ordered prazosin 2 mg oral capsule 1 capsule = 2 mg, By Mouth, Daily at bedtime, # 30 capsule, 0 Refills, Maintenance, 08/02/21 16:44:00 EST, Capsule, [facility], Partial fill upon patient request if the prescription is for a schedule II opioid drug., 180, cm, 08/02/21 10:... Start Date: 08/02/21 Stop Date: 09/01/21 Status: Ordered Pyridoxine Tablet 50 mg, By Mouth, Daily, Refills 0, Maintenance, 03/27/22 13:52:00 EDT, Partial fill upon patient request if the prescription is for a schedule II opioid drug. Start Date: 03/27/22 Status: Ordered thiamine 100 mg oral tablet 100 mg, 1, tablet, By Mouth, 2 times a day, Refills 0, Maintenance, 03/27/22 13:52:00 EDT, Partial fill upon patient request if the prescription is for a schedule II opioid drug. Start Date: 03/27/22 Status: Ordered Tylenol 8 HR Arthritis Pain = 1,300 mg, [...] mandible Confirmed Active Polysubstance abuse Confirmed Active Social History Social History Type Response Smoking Status Current every day sm oker; Tobacco user in household: No entered on: 07/26/16 Sex Patient Care team information Care Team Personnel Name: Nataly Ace RN Position: [facility] RN Member Role: Primary Care Nurse Name: Jania Lopez RN Position: [facility] RN Member Role: Primary Care Nurse Name: Trinh Lucas RN Position: [facility] RN Member Role: Primary Care Nurse Name: Brunilda Fisher Position: [facility] RN Member Role: Primary Care Nurse Name: Elaine Naik RN Position: [facility] RN Member Role: Primary Care Nurse Name: Stephanie Cid Position: [facility] Outreach Member Role: Lifetime Consulting Physician Name: Yun Wood Position: [facility] Outreach Member Role: Lifetime Consulting Physician Name: Eva Beavers RN Position: [facility] RN Member Role: Primary Care Nurse Name: Santiago Dickinson Position: [facility] AMB MA Member Role: Lifetime Consulting Physician Name: Zelda Reveles RN Position: [facility] RN Member Role: Primary Care Nurse Name: Caitlyn Greenberg NP Position: Reference Physician Member Role: PCP Address: Address: [address] [place] [address] Name: Amaya Long RN Position: [facility] RN Member Role: Primary Care Nurse Name: Amira Escobar RN Position: [facility] RN Member Role: Primary Care Nurse Name: Betsey Turcios RN Position: [facility] ED RN W/OE and Tasks Member Role: Primary Care Nurse Name: Sofie Walden RN Position: [facility] PCO w/OE and EZ Script Member Role: Primary Care Nurse Name: Linda Russo RN Position: [facility] RN Member Role: Primary Care Nurse Name: Flora Taylor RN Position: [facility] RN Member Role: Primary Care Nurse Name: Frank Lara RN Position: [facility] RN Member Role: Primary Care Nurse Name: Olesya Avalos RN Position: [facility] RN Member Role: Primary Care Nurse Name: Suha Bryant RN Position: [facility] RN Member Role: Primary Care Nurse Name: Jolene Ceja RN Position: [facility] RN Member Role: Primary Care Nurse Name: Jenny Osuna RN Position: [facility] Hospital Spring Assembler Member Role: Primary Care Nurse Care Team Related Persons Name: PATIENT STATES, NO ONE
--- OUTSIDE RECORDS SUMMARY | 2023-02-24 21:26 | XMS_ITS | Patient Health Record ---
Author Name Unknown Organization [facility] Address [address], [place] [id number] Care Team Providers Care Foreign Language Interpreter Name Role Phone Zacjoan Ozzyamairani Primary Care Provider [phone] Caitlyn Burgos Unavailable ALLERGIES No Known Allergies RESULTS Component Value Reference Range Notes MICROALB/CREAT RATIO, RANDOM Reviewed date:07/29/2022 08:16:25 AM Interpretation:Normal Performing Lab: Notes/Report: MICROALBUMIN, RANDOM < 5.0 0.0-29.0 mg/L MICROALB/CRE RATIO RANDOM < 18.5 0.0-30.0 mg/G CREATININE, RANDOM URINE 27 CBC WITH AUTO DIFF Reviewed date:05/06/2022 07:59:00 PM Interpretation:NOT OUR ORDER - WBC 11.9 Performing Lab: Notes/Report: WBC 11.9 4.8-10.8 x10-3/uL RBC 4.0 4.5-5.5 x10-6/uL HEMOGLOBIN 12.2 13.5-17.5 g/dL HEMATOCRIT 35.0 42-54 % MCV 87.7 79-98 fL MCH 30.6 27-32 pg MCHC 34.9 32-37 g/dL RDW 13.3 11-15 % PLT COUNT 236 130-400 x10-3/uL MEAN PLATELET VOLUME 9.8 7-11 fL NRBC % AUTO 0.0 <1 % NEUT % 77.3 LYMPH % 13.7 MONO % 8.2 EOS % 0.1 BASO % 0.4 IMMATURE GRANULOCYTES % 0.3 NRBC # AUTO 0.00 <0.1 x10-3/uL ABSOLUTE NEUT 9.22 1.5-7.0 x10-3/uL LYMPH # 1.63 1-5.0 x10-3/uL MONO # 0.98 0.2-1.0 x10-3/uL EOS # 0.01 0-0.5 x10-3/uL BASO # 0.05 0-0.2 x10-3/uL IMMATURE GRANULOCYTES # 0.03 0-0.03 x10-3/uL REASON FOR REFERRAL Reason Dr Ric Capellan [address] [place] [address] [place] [address] f) [phone] , Phone: [phone] opt 1 treat and evaluate for Rosacea Diagnosis 1 Encounter for genera l adult medical examination with abnormal findings (Z00.01) Referral Organization [facility] Referring Provider First Name Bhupinder Referring Provider Last Name Carmen Referring Provider Speciality Nurse Chelsie lin Referred Provider Specialty Dermatology General Notes Saba Acosta 07/29/2022 09:48:02 AM > p/w faxed awaiting appt date, Saba Acosta 08/20/2022 03:39:04 PM > fax sent, Saba Acosta 11/12/2022 10:36:37 AM > fax sent to check on status of appt, Carolee Chavez 11/12/2022 02:28:06 PM >Note obtained and sent to scan Referral Priority Routine Referral Appointment Date 09/25/2022 Reason [facility] PT- Ph- [phone], Fax - [phone] Rt Hip Pain, lower back pain Diagnosis 1 Pain in right hip (M 25.551) Diagnosis 2 Low back pain, unspe cified (M54.50) Referral Organization [facility] Referring Provider First Name Bhupinder Referring Provider Last Name Carmen Referring Provider Speciality Nurse Chelsie lin Referred Provider [facility] Maureen mckeon Referred Provider Specialty Physical The rapist General Notes Carolee Chavez 2022 02:21:56 PM >Faxed to [facility]. Referral Priority Routine MEDICATIONS Medication SIG (Take, Route, Frequency, Duration) Notes Start Date End Date Status Suboxone 8 mg-2 mg 1 film(s) sublingual ly TID Unknown prazosin 2 mg 2 cap(s) orally qhs Unknown MiraLax - as directed orally o nce a day 3-4x week PRN constipation for 30 days Active nicotine 2 mg 1 AMBER by transmucosa l administration every 2 hours for 30 days Unknown multivitamin Vitamin A and D 1 cap(s) orally once a day Unknown lidocaine topical 5% 1 PATCH applied topically once a day for 30 days Unknown senna 8.6 mg 2 tab(s) orally once a day (at bedtime) for 30 days Active nicotine 21 mg/24 hr 1 PATCH transdermal ly once a day for 28 days Unknown ferrous sulfate 325 mg 1 tab(s) orally 3 times a day for 90 days Unknown Citracal + D 250 mg-12.5 mcg 2 tab(s) chewed 2 times a day (with meals) for 30 days Unknown Trazodone 100mg 150 mg 1 tab(s) orally hs Unknown dextroamphetamine 20 mg 1 tab(s) orally 2 times a day Unknown pyridoxine 50 mg 1 tab(s) orally once a day for 90 days Unknown thiamine 100 mg 1 tab(s) orally once a day for 90 days Unknown zolpidem 5 mg 1 tab(s) orally once a day (at bedtime) Unknown amitriptyline 25 mg 1 tab(s) orally once a day (at bedtime) Unknown metroNIDAZOLE topical 0.75% 1 geetha applie d topically 2 times a day for 28 days Unknown naproxen 500 mg 1 tab(s) orally once a day Unknown cyclobenzaprine 10 mg 1 tab(s) orally 3 times a day as needed for pain for 30 days Unknown chlorproMAZINE 25 mg 1 tab(s) orally delta ry 6 hours PRN Unknown Flonase Allergy Relief 50 mcg/inh 1 spray(s) in each nostril once a day for 30 days Unknown Wellbutrin XL 300 mg/24 hours 1 tab(s) orally every 24 hours Unknown Neurontin 800 mg 1 cap(s) orally tid Unknown multivitamin Multiple Vitamins 1 cap(s) orally once a day for 28 day(s) 09/16/2022 Unknown hydrOXYzine hydrochloride 50 mg 1 tab(s) orally qhs Unknown Wellbutrin XL 150 mg/24 hours 1 tab(s) orally every 24 hours Unknown folic acid 1 mg 1 tab(s) orally once a day for 90 days Unknown acetaminophen 650 mg 2 tab(s) orally delta ry 8 hours PRN back/hip pain for 28 days Unknown IMMUNIZATIONS Vaccine Route Administration Date Status Comme nts Moderna Covid-19 Vaccine Administration - First Dose (Single Dose 100MCG/0.5ML 1ST) IM Intramuscular 06/28/2020 Administered [facility] Tdap IM Intramuscular 09/27/2020 Administered [facility] 49 [phone] Moderna Covid-19 Booster Administration - Third Dose (Single Dose 50 mcg/0.25 mL Unknown 05/15/2021 Administered PPSV 23 IM Intramuscular 01/24/2022 Administered Influenza IM Intramuscular 03/28/2022 Administered Moderna Covid-19 Vaccine Administration - Second Dose (Single Dose 100 MCG/0.5ML 2ND) IM Intramuscular 07/26/2020 Pending [place] [facility] Lot# [id number] SOCIAL HISTORY Tobacco Use: Social History Observation Description Date Details (start date - stop date) Former Smoker NA - NA Sex Assigned At : Social History Observation Description Sex Assigned At Unknown Tobacco Use Assessment MU Question Answer Notes What is your current smoking status? former smok er How long has it been since you last smoked? 1-3 months PROBLEMS Problem Type ICD Code Onset Dates Problem Status W/U Status Risk SNOMED Code Notes Problem Vitamin D deficiency, unspecified (E55.9) Active confirmed Vitamin D deficiency (97725821) Problem Obesity, unspecified (E66.9) Active confirmed Obesity (962393702) Problem Alcohol dependence, uncomplicated (F10.20) Active confirmed Alcohol dependence (26193045) 12/2021: 6 months abstinent Problem Opioid dependence, uncomplicated (F11.20) Active confirmed Opioid dependence (32213062) Suboxone--- F11.21 Problem Cocaine abuse with intoxication, uncomplicated (F14.120) Active confirmed Problem Nicotine dependence, cigarettes, uncomplicated (F17.210) Active confirmed Tobacco user (046997657) Problem Major depressive disorder, single episode, severe without psychotic features (F32.2) 11/30/19 21 Active confirmed Severe major depression, single episode, without psychotic features (70380107) Problem Anxiety disorder, unspecified (F41.9) Active confirmed Anxiety disorder (889393571) Problem Insomnia, unspecified (G47.00) Active confirmed Insomnia (907703070) Problem Chronic rhinitis (J31.0) Active confirmed Chronic rhinitis (89282800) Problem Constipation, unspecified (K59.00) Active confirmed Constipation (69240214) Problem Rosacea, unspecified (L71.9) Active confirmed Rosacea (819990150) Problem Pain in right hip (M25.551) Active confirmed Right hip pain (0973513759475 02) Problem Body mass index [BMI] 31.0-31.9, adult (Z68.31) Active confirmed Body mass index 30.00 to 34.99 (6953842122805 07) Problem Sheltered homelessness (Z59.01) Active confirmed Sheltered homelessness (9567202740908 00) VITAL SIGNS Temperature 97.1 degrees Fahrenheit 07/25/2022 Blood pressure diastolic 90 07/25/2022 Oximetry 97 07/25/2022 Height 70.5 in 07/25/2022 Blood pressure systolic 143 07/25/2022 Weight 221.2 lbs 07/25/2022 BMI 31.29 kg/m2 07/25/2022 Encounters Encounter Location Date Provider Diagnosis [address] [id number] 03/19/2022 Eddieliza Casionan [facility] [address] [place] [address] [id number] 04/11/2022 Eddieliza Casionan Encounter for screening for infectious and parasitic diseases, unspecified Z11.9 [facility] [address] [place] [address] [place] [id number] 04/25/2022 Eddieliza Casionan [address] [id number] 07/01/2022 Eddieliza Casionan [address] [id number] 07/23/2022 Eddieliza Casionan Encounter for screening for infectious and parasitic diseases, unspecified Z11.[address] [id number] 08/08/2022 Eddieliza Casionan [address] [id number] 08/19/2022 Eddieliza Casionan Persons encountering health services in other specified circumstances Z76.[address] [id number] 10/31/2022 Eddieliza Casionan Encounter for screening for infectious and parasitic diseases, unspecified Z11.[address] [id number] 01/02/2023 Eddieliza Casionan [address] [id number] 01/16/2023 Eddieliza Casionan Encounter for screening for infectious and parasitic diseases, unspecified Z11.[address] [id number] 02/10/2023 Eddieliza Casionan [address] [id number] 07/25/2022 Eddieliza Casionan Encounter for screening for infectious and parasitic diseases, unspecified Z11.9 ; Encounter for general adult medical examination with abnormal findings Z00.01 ; Vitamin D deficiency, unspecified E55.9 ; Cocaine abuse with intoxication, uncomplicated F14.120 ; Body mass index [BMI] 31.0-31.9, adult Z68.31 ; Major depressive disorder, single episode, severe without psychotic features F32.2 ; Alcohol dependence, uncomplicated F10.20 ; Constipation, unspecified K59.00 ; Pain in right hip M25.551 ; Sheltered homelessness Z59.01 ; Rosacea, unspecified L71.9 ; Elevated blood-pressure reading, without diagnosis of hypertension R03.0 ; Chronic rhinitis J31.0 ; Nicotine dependence, cigarettes, uncomplicated F17.210 and Dorsalgia, unspecified M54.[address] [id number] 10/18/2022 Eddieliza Casionan [address] [id number] 12/11/2022 Eddieliza Casionan [address] [id number] 03/05/2022 Caitlyn ZZKennedy [address] [id number] 03/05/2022 Caitlyn ZZKennedy [address] [id number] 03/19/2022 Eddieliza Casionan [address] [id number] 03/25/2022 Caitlyn ZZKennedy [facility] [address] [place] [address] [id number] 03/28/2022 Caitlyn ZZKennedy [facility] [address] [place] [address] [id number] 03/28/2022 Caitlyn ZZKennedy [facility] [address] [place] [address] [id number] 03/28/2022 Caitlyn ZZKennedy [facility] [address] [place] [address] [id number] 03/28/2022 Eddieliza Casionan [address] [id number] 03/29/2022 Caitlyn ZZKennedy [address] [id number] 04/08/2022 Eddieliza Casionan [address] [id number] 04/11/2022 Eddieliza Casionan [address] [id number] 04/17/2022 Caitlyn ZZKennedy [facility] [address] [place] [address] [id number] 04/22/2022 Caitlyn ZZKennedy [address] [id number] 04/23/2022 Eddieliza Casionan [address] [id number] 04/25/2022 Eddieliza Casionan [address] [id number] 07/16/[address] [facility] [address] [place] [address] [id number] 07/25/2022 Eddieliza Casionan [address] [id number] 08/19/2022 Eddieliza Casionan [address] [id number] 08/27/2022 Eddieliza Casionan [address] [id number] 09/13/2022 Eddieliza Casionan Dorsalgia, unspecified M54.[address] [id number] 09/16/2022 Eddieliza Casionan [facility] [address] [place], [place] [id number] 10/11/2022 Eddieliza Casionan [facility] [address] [place], [place] [id number] 10/14/2022 Eddieliza Casionan [facility] [address] [place], [place] [id number] 10/16/2022 Eddieliza Casionan [facility] [address] [place], [place] [id number] 10/16/2022 Eddieliza Casionan [facility] [address] [place], [place] [id number] 11/04/2022 Eddieliza Casionan [facility] [address] [place], [place] [id number] 11/05/2022 Eddieliza Casionan [facility] [address] [place] [address] [id number] 11/25/2022 Eddieliza Casionan [facility] [address] [place] [address] [id number] 01/06/2023 Eddieliza Casionan [facility] [address] [place] [address] [id number] 01/14/2023 Eddieliza Casionan [facility] [address] [place] [address] [id number] 01/16/2023 Eddieliza Casionan [facility] [address] [place] [address] [id number] 01/16/2023 Eddieliza Casionan [facility] [address] [place] [address] [id number] 02/03/2023 Eddieliza Casionan [facility] [address] [place] [address] [id number] 02/05/2023 Eddieliza Casionan [facility] [address] [place] [address] [id number] 02/06/2023 Eddieliza Casionan [facility] [address] [place] [address] [id number] 02/07/2023 Eddieliza Casionan [facility] [address] [place] [address] [id number] 02/17/2023 Eddieliza Casionan Constipation, unspecified K59.00 [facility] [address] [place] [address] [id number] 02/21/2023 Bhupinder Morales [address] [place], [place] [id number] 02/21/2023 Bhupinder Morales ASSESSMENTS Encounter Date Diagnosis Assessment Notes Treatment Notes Treatment Clinical Notes 04/11/2022 Encounter for screening for infectious and parasitic diseases, unspecified (ICD-10 - Z11.9) Covid screening is negative. Discussed in detail with patient how to practice social distancing by avoiding public spaces and crowds now, wearing a mask in public to keep nose and mouth covered, and washing hands frequently especially before eating and after using the bathroom. Return to clinic if you develop any symtpoms of concern to be rescreened or go to the emergency room if you are having concerning symptoms for COVID-19. 07/23/2022 Encounter for screening for infectious and parasitic diseases, unspecified (ICD-10 - Z11.9) Covid screening is negative. Discussed in detail with patient how to practice social distancing by avoiding public spaces and crowds now, wearing a mask in public to keep nose and mouth covered, and washing hands frequently especially before eating and after using the bathroom. Return to clinic if you develop any symtpoms of concern to be rescreened or go to the emergency room if you are having concerning symptoms for COVID-19. 08/19/2022 Persons encountering health services in other specified circumstances (ICD-10 - Z76.89) Reviewed results of recent diagnostic testing with client. Future plan of action discussed with from results of diagnostic testing. 10/31/2022 Encounter for screening for infectious and parasitic diseases, unspecified (ICD-10 - Z11.9) Covid screening is negative. Discussed in detail with patient how to practice social distancing by avoiding public spaces and crowds now, wearing a mask in public to keep nose and mouth covered, and washing hands frequently especially before eating and after using the bathroom. Return to clinic if you develop any symtpoms of concern to be rescreened or go to the emergency room if you are having concerning symptoms for COVID-19. 01/16/2023 Encounter for screening for infectious and parasitic diseases, unspecified (ICD-10 - Z11.9) Covid screening is negative. Discussed in detail with patient how to practice social distancing by avoiding public spaces and crowds now, wearing a mask in public to keep nose and mouth covered, and washing hands frequently especially before eating and after using the bathroom. Return to clinic if you develop any symtpoms of concern to be rescreened or go to the emergency room if you are having concerning symptoms for COVID-19. 07/25/2022 Encounter for general adult medical examination with abnormal findings (ICD-10 - Z00.01) Annual PE performed, Healthy male. Counseled on importance of maintaining a relationship with a healthcare provider as well as appropriate health screenings. Immunizations reviewed and offered appropriate vaccines. Lab work will be done today and results will be given to you. Prostate screening guidelines reviewed. General recommendations for good health made. Maintain a healthy weight. Recommendations for oral health: brush/floss your teeth 2x per day and see a dentist twice a year. Eat a heart healthy diet including lots of vegetables and obtain 30-45 minutes of aerobic exercise 5/7 days per week. Reminded to use barrier protection for all sexual contact. Maintain intake of water and avoid soda and energy drinks. Get 8 hours of sleep every night. 07/25/2022 Encounter for screening for infectious and parasitic diseases, unspecified (ICD-10 - Z11.9) COVID-19 screening is negative. Discussed in detail with patient how to practice social distancing by avoiding public spaces and crowds now, wearing a mask in public to keep nose and mouth covered, and washing hands frequently especially before eating and after using the bathroom. Return to clinic if you develop any symptoms of concern to be rescreened or go to the emergency room if you are having concerning symptoms for COVID-19. Screen for STI. TB and hepatitis 09/13/2022 Dorsalgia, unspecified (ICD-10 - M54.9) 02/17/2023 Constipation, unspecified (ICD-10 - K59.00) 07/25/2022 Vitamin D deficiency, unspecified (ICD-10 - E55.9) Encouraged morning sunshine exposure at least 20 minutes daily. 07/25/2022 Cocaine abuse with intoxication, uncomplicated (ICD-10 - F14.120) on recovery 07/25/2022 Body mass index [BMI] 31.0-31.9, adult (ICD-10 - Z68.31) Engaged discussion on maintaining healthy lifestyle: healthy diet low on fats and simple carbohydrates, and regular physical exercise of at least 30 minutes daily 07/25/2022 Major depressive disorder, single episode, severe without psychotic features (ICD-10 - F32.2) Engaged with [facility] for mental health 07/25/2022 Alcohol dependence, uncomplicated (ICD-10 - F10.20) 12/2021: 6 months abstinent On recovery 07/25/2022 Constipation, unspecified (ICD-10 - K59.00) Regular bowel movement with medications 07/25/2022 Pain in right hip (ICD-10 - M25.551) Already established with [facility] Agrees to call [facility] himself for a f/u appt 07/25/2022 Sheltered homelessness (ICD-10 - Z59.01) Recovering at a residential residential program 07/25/2022 Rosacea, unspecified (ICD-10 - L71.9) Reports present treatment helpful Requests for referral to dermatology 07/25/2022 Elevated blood-pressure reading, without diagnosis of hypertension (ICD-10 - R03.0) Will recheck on next visit agrees to check with residential program for BP monitoring devise and will try to have BP checked at least once a week and call in results 07/25/2022 Chronic rhinitis (ICD-10 - J31.0) reports sporadic cold symptoms including nasal congestion Will trial flonase. Instructed on proper use 07/25/2022 Nicotine dependence, cigarettes, uncomplicated (ICD-10 - F17.210) On recovery. last use: 04/202207/25/2022 Dorsalgia, unspecified (ICD-10 - M54.9) present treatment controlling symptoms. Will schedule self for f/u with [facility] 08/19/2022 Other Time spent in visit: minutes 07/25/2022 Other PLAN OF TREATMENT Pending Test Test Name Order Date CBC 07/25/2022 CHLAMYDIA / GC DNA W RFLX 09/13/2021 COMPREHENSIVE METABOLIC PANEL 07/25/2022 GLYCOHEMOGLOBIN PROFILE 07/25/2022 HCV VIRAL LOAD 07/25/2022 LIPID PROFILE 07/25/2022 MEASLES PROFILE 07/25/2022 PROSTATIC SPECIFIC ANTIGEN SCR TSH CASCADE 07/25/2022 QUANTIFERON(R)-TB GOLD PLUS, 1 TUBE 05/0 09/2020 QUANTIFERON(R)-TB GOLD PLUS, 1 TUBE /05/2021 QUANTIFERON(R)-TB GOLD PLUS, 1 TUBE 03/0 06/2022 Next Appt Details Provider Name:Bhupinder gonzalez, 03/05/2023 11:30:00 AM, [address] [facility], [place], [place], [phone], Insurance Providers Payer Name Payer Address Payer Phone Subscriber Number Group Number Insured Name Patient Relationship to Insured Coverage Start Date Coverage End Date [place] Medicaid C3 [address] [place], [place] [id number] Cam Narvaez Self - patient is the insured 1 MEDICAL (GENERAL) HISTORY Medical History History ICD Code MDD with psychotic features, Anxiety, In somnia Opioid JENIFER, Cocaine and Alcohol JENIFER Nicotine Deopendence Hep C treated 2004 Interfero n Labs 06/15 No VL Immune Hep A/Hep B received series prior to tx Surgical History Surgery Date(Month/Year) Fractured jaw 2016 Hospitalization History Reason Date(Month/Year) Prov Detox and CSS 04/2020 [facility] and [facility] x 2 0 [place] [facility] [place] [facility] : tongue lacerat ion 10/12/2020 [facility]: admission: OD Antidepressants ETOH W/D 11/29/2020 [facility] Suicide attempt 04/06-
[2023-02-24 21:43] VITALS: BMI 29.2
[2023-02-24 22:31] VITALS: BP 162/91; PULSE 79; TEMP 36.4; O2SAT 100
[2023-02-24] MEDS: chlorproMAZINE HCl 25 MG TABLET PO (23:28)
[2023-02-24] MEDS: LORazepam 1 MG TABLET PO (23:28)
[2023-02-24] MEDS: hydrOXYzine HCL 25 MG TABLET PO (23:28)
[2023-02-24] MEDS: traZODone HCL 100 MG TABLET PO (23:28)
[2023-02-25] MEDS: Propranolol HCL 20 MG TABLET PO ×3 (00:04→19:54)
[2023-02-25] MEDS: QUEtiapine Fumarate 200 MG TABLET PO ×2 (00:04→19:55)
[2023-02-25] MEDS: Prazosin HCL 1 MG CAPSULE 4 MG PO ×2 (00:13→19:53)
[2023-02-25 00:16] VITALS: BP 127/81; PULSE 99
--- NOTE | 2023-02-25 00:24 | PC.NURSE ---
refused flu shot reporting he has already received this season.
--- NOTE | 2023-02-25 05:44 | PC.ADMIT ---
this is one of several admissions to the [facility]. patient was a referral from [facility] after being assessed by the local crisis team while on the inpatient medical floor. nurse to nurse, doc to doc report and collateral information obtained prior to admission. patient was s/p an OD attempt and being medically hospitalized on 01/20/23. reports brief relapse on crack cocaine, and using alcohol. patient with dx of alcohol use d/o, MDD. per report exchange [facility] had utilized ativan for detox process as patient has a listed allergy to phenobarbital. was given ativan 0.5 mg and reported that he was done with detox process. on arrival to unit patient reported that 4 days of a CIWA assessment with titrating doses of ativan is not effective for his detox process ''it takes a longer period for me'' reported 'I have alcohol w/d seizures'' when questioned during nursing assessment if he experienced A/V hallucinations her reported ''no'' later on when assessed using CIWA scale he reported ''hearing music in the back ground and seeing shadows'' and identified this as part of his detox process. at this current time is on scheduled ativan 1 mg tid and was informed that this would be for short term use only. patient identified that he understood. patient was cooperative to admission process until informed that the covering psychiatrist would not order ambien at [facility] which caused him to become upset ''fuck this place'' ''I need to sleep'' ''I have a current prescription'' patient then stated ''I'm done with this I'm not answering any other questions'' did accept [facility] medications when offered. patient is homeless and has with him a significant amount of medications that came with him from [facility] in sealed security envelope. medications will be stored in pharmacy. no change in medial status-hep C, chronic r hip pain, enlarged liver. medication rec. done. skin check done. treatment plan and safety tool initiated.
[2023-02-25] MEDS: buPROPion HCl XL 150 MG TAB.ER.24H 450 MG PO (08:24)
[2023-02-25] MEDS: Multivitamin TABLET 1 TAB PO (08:24)
[2023-02-25] MEDS: Cyclobenzaprine HCl 10 MG TABLET PO ×3 (08:24→19:54)
[2023-02-25] MEDS: Folic Acid 1 MG TABLET PO (08:24)
[2023-02-25] MEDS: Gabapentin 400 MG CAPSULE 800 MG PO ×3 (08:24→17:47)
[2023-02-25] MEDS: Ferrous Sulfate 324 MG TABLET.DR PO (08:24)
[2023-02-25] MEDS: LORazepam 1 MG TABLET PO ×3 (08:24→19:55)
[2023-02-25] MEDS: Thiamine HCL 100 MG TABLET PO (08:24)
[2023-02-25] MEDS: Celecoxib 200 MG CAPSULE PO ×2 (08:25→19:54)
[2023-02-25] MEDS: Calcium + Vitamin D 250 MG TABLET 500 MG PO (08:25)
[2023-02-25] MEDS: Buprenorphine/Naloxone 8/2 mg FILM 1 FILM SUBLINGUAL ×3 (08:25→17:47)
[2023-02-25 08:34] VITALS: BP 110/62; PULSE 70; RESP 18; TEMP 36.3; O2SAT 95
[2023-02-25] MEDS: metroNIDAZOLE 0.75 % Gel 45 GM TUBE 1 APPL TOPICAL ×2 (09:23→20:00)
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
--- NOTE | 2023-02-25 11:18 | HO.PM.IMCN ---
History of Present Illness Data of Consult Service Date: 02/25/23 Primary Care Provider: Bhupinder Morales APRN HPI Reason for consult: Admission H&P Pt is a 52-year-old male with a PMH significant for?alcohol use disorder, opioid use disorder, cocaine use disorder, PTSD, and MDD with multiple previous suicide attempts who is admitted to psychiatry unit for increasing depression with SI with intentional overdose on Wellbutrin and Seroquel on 02/20/2023. Patient immediately called 911 after ingestion and presented to [facility] ED where he was eventually medically cleared for crisis assessment. Medical consult for admission H&P. ?Patient states he overall feels ?okay?. States he feels he is nearing the end of his withdrawal. Patient reports drinking 3 quarts of hard liquor and a 6 pack of beer daily, with last drink only 1 nip on 02/19/2023. Patient was started on alcohol withdrawal treatment with Ativan at [facility]. Patient endorses a history of alcohol withdrawal seizures and auditory and visual hallucinations. Currently says he is only experiencing minor upper extremity tremors. Also complains of chronic right hip pain. Has seen ortho outpatient for this and is planning on getting a MAGALY at some point in the near future. Patient otherwise has no acute medical complaints at this time. Denies chest pain/pressure, palpitations. No headache, acute vision changes. Denies fever, chills, nausea, vomiting. No abdominal pain. Denies shortness of breath. Review of Systems Review of Systems: Minor upper extremity tremors Chronic right hip pain Patient otherwise has no acute medical complaints at this time [facility] Medical History Incidental pulmonary nodule Hepatic steatosis Alcohol use disorder Hepatitis C antibody positive in blood Alcohol dependence EtOH dependence Anxiety Chronic post-traumatic stress disorder (PTSD) MDD (major depressive disorder), recurrent episode, severe Depression Family History Mother Diabetes mellitus Father Leukemia Surgical History History of mandibular surgery Social History Household Members: None Household Members Other:: [employer] Housing: Homeless Housing Other:: [employer] Do you presently have visiting nurse or other home services: No Unable to assess alcohol history related to: Unknown Alcohol intake: current Alcohol intake frequency: holidays/special occasions only Alcohol type: beer and hard liquor Patient Tobacco Use Status: Current everyday Tobacco user Tobacco use type: Cigarette Cigarette Packs Per Day: 0.5 Cigarettes Per Day: 0.2 Years Smoked: ''many'' Smoked in Last 30 Days: Yes e-Cigarette/Vaping Use: Currently Using Frequency of e-Cigarette/Vaping Use: prefers e cigs-daily use Patient Interested in Nicotine Replacement: Yes (gum or patch) Second Hand Smoke Exposure: No Use of substances other than those prescribed or required for medical reasons: Yes Substance Use Type: Crack/Cocaine Substance Use Frequency: Recent Binge Last Used Substance: Days (ago) Currently Displaying Signs/Symptoms of Drug Intoxication Withdrawal: No Any prior treatment program specific to substance use: Yes Have you been hit, kicked, punched, or otherwise hurt by someone within the past year? If so, by whom?: No Do you feel safe in your current relationship?: No Current Relationship Is there a partner from a previous relationship who is making you feel unsafe now?: No Are you made to feel afraid or neglected: No Spiritual Healthcare Practices: none identified Restorationism Healthcare Practices: AA. identifies self as Quaker Cultural Healthcare Practices: none identified Advance Directives: No Advance Directives Information Provided: Yes Do you have thoughts of harming others: None Do you have a plan to hurt others: No Plan Recently lost weight without trying: No How much weight loss: Not applicable Eating poorly because of decreased appetite: No Nutrition screen score: 0 Nutrition Risks: No Nutritional Risk Poor oral hygiene: No service: No Current occupational status: unemployed Sexual orientation: Straight/Heterosexual Meds Allergies Allergy/AdvReac Type Severity Reaction Status Date / Time ketamine AdvReac Severe Agitated Verified 10/29/22 15:22 phenobarbital AdvReac Vomiting Verified 10/29/22 15:22 Active Medications: Current Medications Acetaminophen (Acetaminophen 325 Mg Tablet) 650 mg PO Q6H PRN PRN Reason: Headache/Pain Mild Scale (1-3) Al Hydroxide/Mg Hydroxide (Magnesium Hydrox/Alum Hydrox 30 Ml Oral.Susp) 30 ml PO Q6H PRN PRN Reason: Heartburn/Nausea Buprenorphine/Naloxone (Buprenorphine/Naloxone 8/2 Mg Film) 1 film SUBLINGUAL TID@0800,1200,1700 [facility] Last Admin: 02/25/23 08:25 Dose: 1 film Bupropion HCl (Bupropion Hcl Xl 150 Mg Tab.Er.24h) 450 mg PO DAILY [facility] Last Admin: 02/25/23 08:24 Dose: 450 mg Calcium Carbonate/Cholecalciferol (Calcium + Vitamin D 250 Mg Tablet) 500 mg PO DAILY [facility] Last Admin: 02/25/23 08:25 Dose: 500 mg Celecoxib (Celecoxib 200 Mg Capsule) 200 mg PO BID [facility] Last Admin: 02/25/23 08:25 Dose: 200 mg Chlorpromazine HCl (Chlorpromazine Hcl 25 Mg Tablet) 25 mg PO BID PRN PRN Reason: Anxiety Last Admin: 02/24/23 23:28 Dose: 25 mg Cyclobenzaprine HCl (Cyclobenzaprine Hcl 10 Mg Tablet) 10 mg PO TID [facility] Last Admin: 02/25/23 08:24 Dose: 10 mg Ferrous Sulfate (Ferrous Sulfate 324 Mg Tablet.Dr) 324 mg PO Q48H [facility] Last Admin: 02/25/23 08:24 Dose: 324 mg Folic Acid (Folic Acid 1 Mg Tablet) 1 mg PO DAILY [facility] Last Admin: 02/25/23 08:24 Dose: 1 mg Gabapentin (Gabapentin 400 Mg Capsule) 800 mg PO TID [facility] Last Admin: 02/25/23 08:24 Dose: 800 mg Hydroxyzine HCl (Hydroxyzine Hcl 25 Mg Tablet) 25 mg PO Q6H PRN PRN Reason: Anxiety Last Admin: 02/24/23 23:28 Dose: 25 mg Lidocaine (Lidocaine 4 % Patch Adh..Patch) 1 patch TRANSDERMA DAILY [facility]; Protocol Last Admin: 02/25/23 09:06 Dose: Not Given Lorazepam (Lorazepam 1 Mg Tablet) 1 mg PO TID [facility] Last Admin: 02/25/23 08:24 Dose: 1 mg Lorazepam (Lorazepam 1 Mg Tablet) 2 mg PO Q2H PRN PRN Reason: CIWA 11 and above Lorazepam (Lorazepam 1 Mg Tablet) 1 mg PO Q2H PRN PRN Reason: CIWA 6-10 Magnesium Hydroxide (Milk Of Magnesia 30 Ml Oral.Susp) 30 ml PO DAILY PRN PRN Reason: Constipation Metronidazole (Metronidazole 0.75 % Gel 45 Gm Tube) 1 appl TOPICAL BID [facility] Last Admin: 02/25/23 09:23 Dose: 1 appl Multivitamins/Vitamin C (Multivitamin Tablet) 1 tab PO DAILY [facility] Last Admin: 02/25/23 08:24 Dose: 1 tab Nicotine (Nicotine 21 Mg Patch.Td24) 21 mg TRANSDERMA DAILY PRN PRN Reason: smoking cessation Nicotine Polacrilex (Nicotine Polacrilex 2 Mg Gum) 4 mg BUCCAL Q2H PRN PRN Reason: Nicotine Cravings Prazosin HCl (Prazosin Hcl 1 Mg Capsule) 4 mg PO BEDTIME [facility]; Protocol Last Admin: 02/25/23 00:13 Dose: 4 mg Propranolol HCl (Propranolol Hcl 20 Mg Tablet) 20 mg PO BID [facility]; Protocol Last Admin: 02/25/23 08:25 Dose: 20 mg Quetiapine Fumarate (Quetiapine Fumarate 200 Mg Tablet) 200 mg PO BEDTIME [facility] Last Admin: 02/25/23 00:04 Dose: 200 mg Thiamine HCl (Thiamine Hcl 100 Mg Tablet) 100 mg PO DAILY [facility] Last Admin: 02/25/23 08:24 Dose: 100 mg Trazodone HCl (Trazodone Hcl 100 Mg Tablet) 100 mg PO BEDTIME PRN PRN Reason: Insomnia Last Admin: 02/24/23 23:28 Dose: 100 mg Home Medications Medication Instructions Recorded Confirmed Last Taken Type multivitamin with folic acid 400 1 tab PO DAILY 10/07/22 02/24/23 02/20/23 10:00 History mcg tablet (Tab-A-Tony) calcium carbonate 600 mg-vitamin 1 tab PO DAILY 02/24/23 02/24/23 02/20/23 History D3 10 mcg (400 unit) tablet methocarbamol 750 mg tablet 750 mg PO Q8H PRN Pain 02/24/23 02/24/23 02/20/23 History quetiapine 200 mg tablet 200 mg PO BEDTIME 02/24/23 02/24/23 02/23/23 21:00 History zolpidem 5 mg tablet 5 mg PO BEDTIME PRN Pain 02/24/23 02/24/23 02/20/23 History sennosides 8.6 mg tablet (Senna 8.6 mg PO BEDTIME PRN constipation 02/25/23 02/25/23 Unknown History Laxative) Physical Exam Vital Signs and Narrative: Vital Signs: Last Vital Signs Temp 97.4 F 02/25/23 08:34 Pulse 70 10/03/23 08:34 Resp 18 02/25/23 08:34 BP 110/62 02/25/23 08:34 Pulse Ox 95 02/25/23 08:34 O2 Del Method Room Air 02/25/23 08:34 BMI result Body Mass Index 29.2 General: AOx3, no acute distress Resp: CTA bilaterally CVS: S1, S2, RRR GI: +BS, NT, no distention Skin: No rash Neuro: Cranial nerves II-XII grossly intact bilaterally. Motor grossly intact bilaterally Extremities: No edema Psych: Appropriate affect Assessment and Plan (1) Medical clearance for psychiatric admission: Status: Acute Plan Pt is a 52-year-old male with a PMH significant for?alcohol use disorder, opioid use disorder, cocaine use disorder, PTSD, and MDD with multiple previous suicide attempts who is admitted to [facility] psychiatry unit for increasing depression with SI with intentional overdose on Wellbutrin and Seroquel on 02/20/2023. Patient immediately called 911 after ingestion and presented to [facility] ED where he was eventually medically cleared for crisis assessment. Medical consult for admission H&P. Mood disorder Plan as per Psychiatry Alcohol use disorder with history of alcohol withdrawal seizures Patient initially presented to [facility] ED on 02/20/2023 States typically drinks 3 quarts of hard liquor and a 6 pack of beer daily, last drank only 1 nip on 02/19/2023 Started on alcohol withdrawal treatment in [facility] ED on 02/20/2023 Currently says he feels much better, believes he is at the end of his withdrawal Minor upper extremity tremors noted CIWA scale Continue Ativan p.r.n. for withdrawal symptoms Opioid use disorder Continue Suboxone Plan as per Psychiatry Chronic right hip pain Continue lidocaine, gabapentin, methocarbamol HTN Continue propranolol Thank you for allowing us to participate in the care of this patient. Signing off at this time. Please let us know if there are any acute complaints or questions. Time Spent With Patient Time: Total time managing care of this patient today ____ minutes.
[2023-02-25 12:35] VITALS: BP 123/81; PULSE 83; RESP 18
--- NOTE | 2023-02-25 15:10 | MHC.RECOVRN ---
Met with pt in group room on [facility] after consult placed to Addiction Medicine to discuss alcohol use disorder treatment options. Pt had been transferred to [facility] after medical hospitalization at [facility] for intentional overdose. Pt awake, alert, easily engages in conversation, pleasant. Pt reports hx OUD, states I'm on Suboxone now for pain management. Pt reports last opioid use 6 years ago. Pt reports Suboxone 8 mg TID for pain r/t needing a hip replacement. Pt reports after hip replacement he would like to transition to Sublocade and eventually use that to taper off the medication. Pt reports currently drinking alcohol, 1/2 gallon daily cheap vodka daily x a few months. Pt reports hx antabuse 2 or 3 years ago and found it helpful. Pt would like to restart medication. Pt provided with written recovery resources as well as t/w contact information if needed. Pt aware t/w will speak with provider and follow up tomorrow. Pt denies other questions or concerns at this time. Discussed with Mag Cano APRN.
--- NOTE | 2023-02-25 19:15 | PC.NURSE ---
at 352 Pt approached me and stated he wanted to be sure provider ordered his ativan. I tigered Jelena Limon who stated she had told pt that since he is still c/o withdrawal she would keep him on ativan and only restart the ambien and ritalin when ativan is dc. Pt stated, I'm not in withdrawal at all. It's been 5 days. I don't need any ativan. Jelena Limon informed. She states she will reassess pt need in the morning. Pt was informed.
[2023-02-25] MEDS: chlorproMAZINE HCl 25 MG TABLET PO (19:55)
[2023-02-25] MEDS: traZODone HCL 100 MG TABLET PO (19:56)
[2023-02-25 20:18] VITALS: BP 137/73; PULSE 71; RESP 16; TEMP 36.6; O2SAT 99
[2023-02-26 08:00] VITALS: BP 116/56; PULSE 60; RESP 18; TEMP 36.6; O2SAT 95
[2023-02-26] MEDS: Buprenorphine/Naloxone 8/2 mg FILM 1 FILM SUBLINGUAL ×3 (08:09→17:53)
[2023-02-26] MEDS: Gabapentin 400 MG CAPSULE 800 MG PO ×3 (08:10→17:41)
[2023-02-26] MEDS: Calcium + Vitamin D 250 MG TABLET 500 MG PO (08:10)
[2023-02-26] MEDS: buPROPion HCl XL 150 MG TAB.ER.24H 450 MG PO (08:11)
[2023-02-26] MEDS: Multivitamin TABLET 1 TAB PO (08:12)
[2023-02-26] MEDS: Propranolol HCL 20 MG TABLET PO (08:12)
[2023-02-26] MEDS: Cyclobenzaprine HCl 10 MG TABLET PO ×3 (08:12→20:12)
[2023-02-26] MEDS: Celecoxib 200 MG CAPSULE PO ×2 (08:13→20:11)
[2023-02-26] MEDS: Thiamine HCL 100 MG TABLET PO (08:13)
[2023-02-26] MEDS: Folic Acid 1 MG TABLET PO (08:13)
[2023-02-26] MEDS: LORazepam 1 MG TABLET PO (08:13)
--- NOTE | 2023-02-26 14:11 | PHA.MEDREC ---
Addendum entered by Lis Mahajan RP 02/26/23 14:42: provider made aware. Addendum entered by Lis Mahajan RPh 02/26/23 14:21: Used a mixture of patients list and patients most recent claims. Original Note: Pharmacy Consult ? Medication Reconciliation Pharmacy has completed the medication reconciliation. RN had done med rec prior with numerous mistakes. Incident report added.
[2023-02-26] MEDS: Methylphenidate HCl 10 MG TABLET PO (14:34)
[2023-02-26 15:15] LABS: Basophils Absolute Auto 0.1 X10*3/uL (0.0-0.2); Eosinophils Absolute Auto 0.3 X10*3/uL (0.0-0.4); Eosinophils Percent Auto 4.6 % (0-4); Hematocrit 40.3 % (42.0-52.0); Hemoglobin 13.9 g/dl (14.0-18.0); Imm Gran Abs Auto 0.02 X10*3/uL (0.00-0.03); Imm Gran Pct Auto 0.3 % (0.0-0.4); Lymphocytes Absolute Auto 1.6 X10*3/uL (1.2-4.9); Lymphocytes Percent Auto 22.8 % (20-40); MANUAL DIFF FLAG NO; Mean Corpuscular HGB Conc 34.5 g/dl (31.0-36.0); Mean Corpuscular Hemoglobin 30.1 pg (27.0-33.0); Mean Corpuscular Volume 87.2 fL (80.0-98.0); Mean Platelet Volume 10.3 fL (9.4-12.4); Monocytes Absolute Auto 0.7 X10*3/uL (0.1-1.2); Monocytes Percent Auto 9.9 % (2-11); Neutrophils Absolute Auto 4.2 x10*3/uL (2.0-8.3); Neutrophils Percent Auto 61.4 % (45-73); Platelet Count 212 X10*3/uL (160-400); Red Blood Count 4.62 X10*6/uL (4.60-5.80); Red Cell Distribution Width 12.8 % (11.0-16.0); White Blood Count 6.9 X10*3/uL (4.8-10.8)
[2023-02-26 15:34] LABS: Alanine Aminotransferase 15 U/L (0-40); Albumin Level 4.4 g/dL (3.5-5.0); Alkaline Phosphatase 84 U/L (39-117); Anion Gap 16 (12-20); Aspartate Amino Transferase 12 U/L (5-37); Bilirubin Direct 0.1 mg/dL (0.0-0.5); Bilirubin Total 0.3 mg/dL (0.0-1.0); Blood Urea Nitrogen 19 mg/dL (9-16); Calcium 9.6 mg/dL (8.4-10.2); Carbon Dioxide 20 mmol/L (22-29); Chloride 104 mmol/L (96-108); Creatinine Clr Calc Pharmacy 119.6; Estimated Glomerular Filt Rate > 60; Glucose Random 97 mg/dL (60-115); Potassium 4.5 mmol/L (3.3-5.1); Sodium 135 mmol/L (135-145); Total Protein 7.2 g/dL (6.5-8.0)
[2023-02-26] MEDS: Nicotine 21 MG PATCH.TD24 TRANSDERMA (15:50)
--- NOTE | 2023-02-26 16:54 | HO.PSYCHPN ---
Subjective Subjective Date of Service: 02/26/23 Reason For Visit: F33.2, F14.20, F10.20 Subjective Notes: Conditional Voluntary Interim History: Reviewed in team and . Patient reports feeling okay today. Patient stated, I think the withdrawals are gone. I'm doing better. I hope I can get into a program. I also want to start taking Antabuse to help me stop drinking . Denies SI/HI/VH/AH. Medication Compliance: Yes Side effects from medications: No Attending Groups: No Review of Systems Review of Systems Minor upper extremity tremors Chronic right hip pain Patient otherwise has no acute medical complaints at this time Constitutional: Reports as per HPI Eyes: Reports as per HPI Reports as per HPI Cardiovascular: Reports as per HPI Respiratory: Reports as per HPI Gastrointestinal: Reports as per HPI Genitourinary: Reports as per HPI Musculoskeletal: Reports as per HPI Skin/Breast: Reports as per HPI Reports as per HPI Psychiatric: Reports as per HPI Endocrine: Reports as per HPI Hematologic/Lymphatic: Reports as per HPI Allergic/Immunologic: Reports as per HPI Mental Status Exam Mental Status Exam Narrative: Pt is alert and oriented; behavior is cooperative and calm; dressed in casual attire; mood is described as depressed ; eye contact appropriate; Speech is normal rate, volume and prosody and not pressured; no psychomotor agitation/retardation present; thought process is organized and goal directed; Thought content is on tx; otherwise pertinent to relevant topics and without any delusional content, paranoid ideations or grandiosity; denies SI/HI. There is no evidence of perceptual disturbance. Patients insight and judgment are poor. Diagnostics Vital Signs (24Hr): Vital Signs - 24 hr 02/25/23 20:18 02/26/23 08:00 Temperature 97.9 F 97.8 F Pulse Rate 71 60 Respiratory Rate 16 18 Blood Pressure 137/73 116/56 L Pulse Oximetry 99 95 Oxygen Delivery Method Room Air Room Air BMI result Body Mass Index 29.2 Labs 02/26/23 14:48 02/26/23 14:48 Labs: Laboratory Results - last 48 hr 02/26/23 14:48 WBC 6.9 RBC 4.62 Hgb 13.9 L Hct 40.3 L MCV 87.2 MCH 30.1 MCHC 34.5 RDW 12.8 Plt Count 212 MPV 10.3 Immature Gran % (Auto) 0.3 Neut % (Auto) 61.4 Lymph % (Auto) 22.8 Hughes % (Auto) 9.9 Eos % (Auto) 4.6 H Baso % (Auto) 1.0 Lymph # (Auto) 1.6 Hughes # (Auto) 0.7 Eos # (Auto) 0.3 Baso # (Auto) 0.1 Abs Immat Gran (auto) 0.02 Absolute Neuts (auto) 4.2 Absolute Nucleated RBC 0.000 Nucleated RBC % (auto) 0.0 Sodium 135 Potassium 4.5 Chloride 104 Carbon Dioxide 20 L Anion Gap 16 BUN 19 H Creatinine 0.90 Estim Creat Clear Calc 119.6 Estimated GFR > 60 Random Glucose 97 Calcium 9.6 D Total Bilirubin 0.3 Direct Bilirubin 0.1 AST 12 ALT 15 Alkaline Phosphatase 84 Total Protein 7.2 Albumin 4.4 Medications Medications Current Medications Acetaminophen (Acetaminophen 325 Mg Tablet) 650 mg PO Q6H PRN PRN Reason: Headache/Pain Mild Scale (1-3) Al Hydroxide/Mg Hydroxide (Magnesium Hydrox/Alum Hydrox 30 Ml Oral.Susp) 30 ml PO Q6H PRN PRN Reason: Heartburn/Nausea Buprenorphine/Naloxone (Buprenorphine/Naloxone 8/2 Mg Film) 1 film SUBLINGUAL TID@0800,1200,1700 [facility] Last Admin: 02/26/23 12:12 Dose: 1 film Bupropion HCl (Bupropion Hcl Xl 150 Mg Tab.Er.24h) 450 mg PO DAILY [facility] Last Admin: 02/26/23 08:11 Dose: 450 mg Calcium Carbonate/Cholecalciferol (Calcium + Vitamin D 250 Mg Tablet) 500 mg PO DAILY [facility] Last Admin: 02/26/23 08:10 Dose: 500 mg Celecoxib (Celecoxib 200 Mg Capsule) 200 mg PO BID [facility] Last Admin: 02/26/23 08:13 Dose: 200 mg Chlorpromazine HCl (Chlorpromazine Hcl 25 Mg Tablet) 25 mg PO BID PRN PRN Reason: Anxiety Last Admin: 02/25/23 19:55 Dose: 25 mg Cyclobenzaprine HCl (Cyclobenzaprine Hcl 10 Mg Tablet) 10 mg PO TID [facility] Last Admin: 02/26/23 14:34 Dose: 10 mg Ferrous Sulfate (Ferrous Sulfate 324 Mg Tablet.Dr) 324 mg PO Q48H [facility] Last Admin: 10/03/23 08:24 Dose: 324 mg Gabapentin (Gabapentin 400 Mg Capsule) 800 mg PO TID@0800,1200,1700 [facility] Last Admin: 02/26/23 12:12 Dose: 800 mg Hydroxyzine HCl (Hydroxyzine Hcl 25 Mg Tablet) 25 mg PO Q6H PRN PRN Reason: Anxiety Last Admin: 02/24/23 23:28 Dose: 25 mg Magnesium Hydroxide (Milk Of Magnesia 30 Ml Oral.Susp) 30 ml PO DAILY PRN PRN Reason: Constipation Methylphenidate HCl (Methylphenidate Hcl 10 Mg Tablet) 10 mg PO BID@0800,1500 [facility] Last Admin: 02/26/23 14:34 Dose: 10 mg Metronidazole (Metronidazole 0.75 % Gel 45 Gm Tube) 1 appl TOPICAL BID [facility] Last Admin: 02/26/23 08:14 Dose: Not Given Nicotine (Nicotine 21 Mg Patch.Td24) 21 mg TRANSDERMA DAILY PRN PRN Reason: smoking cessation Last Admin: 02/26/23 15:50 Dose: 21 mg Nicotine Polacrilex (Nicotine Polacrilex 2 Mg Gum) 4 mg BUCCAL Q2H PRN PRN Reason: Nicotine Cravings Prazosin HCl (Prazosin Hcl 1 Mg Capsule) 4 mg PO BEDTIME [facility]; Protocol Last Admin: 02/25/23 19:53 Dose: 4 mg Propranolol HCl (Propranolol Hcl 20 Mg Tablet) 20 mg PO BID [facility]; Protocol Last Admin: 02/26/23 08:12 Dose: 20 mg Quetiapine Fumarate (Quetiapine Fumarate 200 Mg Tablet) 200 mg PO BEDTIME [facility] Last Admin: 02/25/23 19:55 Dose: 200 mg Trazodone HCl (Trazodone Hcl 100 Mg Tablet) 100 mg PO BEDTIME PRN PRN Reason: Insomnia Last Admin: 02/25/23 19:56 Dose: 100 mg Zolpidem Tartrate (Zolpidem Tartrate 5 Mg Tablet) 5 mg PO BEDTIME [facility] Allergies Allergies Allergy/AdvReac Type Severity Reaction Status Date / Time ketamine AdvReac Severe Agitated Verified 10/29/22 15:22 phenobarbital AdvReac Vomiting Verified 10/29/22 15:22 Assessment & Plan Assessment & Plan (1) MDD (major depressive disorder), recurrent episode, severe: Status: Acute Code(s): F33.2 - Major depressive disorder, recurrent severe without psychotic features (2) Chronic post-traumatic stress disorder (PTSD): Status: Acute Code(s): F43.12 - Post-traumatic stress disorder, chronic (3) Cocaine use disorder, moderate, dependence: Status: Acute Code(s): F14.20 - Cocaine dependence, uncomplicated (4) Alcohol use disorder: Status: Chronic Plan Patient is a 52 year old male with hx of MDD, ETOH use d/o with multiple inpatient hospitalizations who was seen by [facility] Specialist d/t suicidal ideation with intentional overdose of Wellbutrin and Seroquel secondary to increased depression from his substance use. Plan: CV 15 minute safety checks Continue home medications Referral to outpatient providers Referral to substance abuse program? Consult to addiction services [place] 02/26: KAMILLA DORMAN, pt reports he is no longer having withdrawal symptoms. KAMILLA Ativan. Start home medication, Ambien 5mg PO bedtime, Ritalin 10mg PO BID. Patient would like to be start on Antabuse, however it is non-formulary in this hospital; will contact pharmacy to determine if there is a way to obtain medication;pt has hx of taking this med in past. Patient reports feeling okay today. Patient stated, I think the withdrawals are gone. I'm doing better. I hope I can get into a program. I also want to start taking Antabuse to help me stop drinking . Denies SI/HI/VH/AH. Patient educated on: diagnosis, medication risk/benefits, substance abuse and therapeutic strategies Informed Consent: understands Reason for continued inpatient stay Substantial Risk for: med/psych decompensation Time Spent With Patient Time: Total time managing care of this patient today _30___ minutes.
[2023-02-26] MEDS: Sennosides 8.6 MG TABLET PO (20:11)
[2023-02-26] MEDS: Zolpidem Tartrate 5 MG TABLET PO (20:11)
[2023-02-26] MEDS: Prazosin HCL 5 MG CAPSULE PO (20:11)
[2023-02-26] MEDS: hydrOXYzine HCL 25 MG TABLET PO (20:11)
[2023-02-26] MEDS: QUEtiapine Fumarate 200 MG TABLET PO (20:11)
[2023-02-26 21:00] VITALS: BP 120/70; PULSE 80; RESP 16; TEMP 36.3; O2SAT 99
[2023-02-27 08:20] VITALS: BP 127/65; PULSE 65; RESP 18; TEMP 36.2; O2SAT 97
[2023-02-27] MEDS: Buprenorphine/Naloxone 8/2 mg FILM 1 FILM SUBLINGUAL ×3 (08:24→18:05)
[2023-02-27] MEDS: Cyclobenzaprine HCl 10 MG TABLET PO ×3 (08:24→20:44)
[2023-02-27] MEDS: Ferrous Sulfate 324 MG TABLET.DR PO (08:25)
[2023-02-27] MEDS: Gabapentin 400 MG CAPSULE 800 MG PO ×3 (08:25→18:05)
[2023-02-27] MEDS: Calcium + Vitamin D 250 MG TABLET 500 MG PO (08:25)
[2023-02-27] MEDS: Sennosides 8.6 MG TABLET PO ×2 (08:26→20:44)
[2023-02-27] MEDS: Methylphenidate HCl 10 MG TABLET PO ×2 (08:26→14:05)
[2023-02-27] MEDS: buPROPion HCl XL 150 MG TAB.ER.24H 450 MG PO (08:26)
--- NOTE | 2023-02-27 09:08 | HO.PSYCHPN ---
Subjective Subjective Date of Service: 02/27/23 Reason For Visit: F33.2, F14.20, F10.20 Subjective Notes: Conditional Voluntary Interim History: Reviewed in team and . Patient reports feeling good today. Patient stated, I'm happy to have started taking Antabuse. I took it in the past so I'm aware of the risks and benefits of it . Risks/benefits reviewed with patient. He reports feeling better than first arriving. Hoping to be accepted into substance abuse program. Medication Compliance: Yes Side effects from medications: No Attending Groups: Yes Review of Systems Constitutional: Reports as per HPI Eyes: Reports as per HPI Reports as per HPI Cardiovascular: Reports as per HPI Respiratory: Reports as per HPI Gastrointestinal: Reports as per HPI Genitourinary: Reports as per HPI Musculoskeletal: Reports as per HPI Skin/Breast: Reports as per HPI Reports as per HPI Psychiatric: Reports as per HPI Endocrine: Reports as per HPI Hematologic/Lymphatic: Reports as per HPI Allergic/Immunologic: Reports as per HPI Mental Status Exam Mental Status Exam Narrative: Pt is alert and oriented; behavior is cooperative and calm; dressed in casual attire; mood is described as good ; eye contact appropriate; Speech is normal rate, volume and prosody and not pressured; no psychomotor agitation/retardation present; thought process is organized and goal directed; Thought content is on tx; otherwise pertinent to relevant topics and without any delusional content, paranoid ideations or grandiosity; denies SI/HI. There is no evidence of perceptual disturbance. Patients insight and judgment are poor but improving. Diagnostics Vital Signs (24Hr): Vital Signs - 24 hr 02/26/23 21:00 02/27/23 08:20 Temperature 97.3 F 97.1 F Pulse Rate 80 65 Respiratory Rate 16 18 Blood Pressure 120/70 127/65 Pulse Oximetry 99 97 Oxygen Delivery Method Room Air Room Air BMI result Body Mass Index 29.2 Labs 02/26/23 14:48 02/26/23 14:48 Labs: Laboratory Results - last 48 hr 02/26/23 14:48 WBC 6.9 RBC 4.62 Hgb 13.9 L Hct 40.3 L MCV 87.2 MCH 30.1 MCHC 34.5 RDW 12.8 Plt Count 212 MPV 10.3 Immature Gran % (Auto) 0.3 Neut % (Auto) 61.4 Lymph % (Auto) 22.8 [facility] % (Auto) 9.9 Eos % (Auto) 4.6 H Baso % (Auto) 1.0 Lymph # (Auto) 1.6 [facility] # (Auto) 0.7 Eos # (Auto) 0.3 Baso # (Auto) 0.1 Abs Immat Gran (auto) 0.02 Absolute Neuts (auto) 4.2 Absolute Nucleated RBC 0.000 Nucleated RBC % (auto) 0.0 Sodium 135 Potassium 4.5 Chloride 104 Carbon Dioxide 20 L Anion Gap 16 BUN 19 H Creatinine 0.90 Estim Creat Clear Calc 119.6 Estimated GFR > 60 Random Glucose 97 Calcium 9.6 D Total Bilirubin 0.3 Direct Bilirubin 0.1 AST 12 ALT 15 Alkaline Phosphatase 84 Total Protein 7.2 Albumin 4.4 Medications Medications Current Medications Acetaminophen (Acetaminophen 325 Mg Tablet) 650 mg PO Q6H PRN PRN Reason: Headache/Pain Mild Scale (1-3) Al Hydroxide/Mg Hydroxide (Magnesium Hydrox/Alum Hydrox 30 Ml Oral.Susp) 30 ml PO Q6H PRN PRN Reason: Heartburn/Nausea Buprenorphine/Naloxone (Buprenorphine/Naloxone 8/2 Mg Film) 1 film SUBLINGUAL TID@0800,1200,1800 [facility] Last Admin: 02/27/23 08:24 Dose: 1 film Bupropion HCl (Bupropion Hcl Xl 150 Mg Tab.Er.24h) 450 mg PO DAILY [facility] Last Admin: 02/27/23 08:26 Dose: 450 mg Calcium Carbonate/Cholecalciferol (Calcium + Vitamin D 250 Mg Tablet) 500 mg PO DAILY [facility] Last Admin: 02/27/23 08:25 Dose: 500 mg Celecoxib (Celecoxib 200 Mg Capsule) 200 mg PO BID [facility] Last Admin: 02/27/23 08:24 Dose: 200 mg Chlorpromazine HCl (Chlorpromazine Hcl 25 Mg Tablet) 50 mg PO BID PRN PRN Reason: Anxiety Cyclobenzaprine HCl (Cyclobenzaprine Hcl 10 Mg Tablet) 10 mg PO TID [facility] Last Admin: 02/27/23 08:24 Dose: 10 mg Disulfiram (Disulfiram 250 Mg Tablet) 250 mg PO Q24H [facility] Stop: 03/07/23 21:01 Last Admin: 02/26/23 21:03 Dose: Not Given Ferrous Sulfate (Ferrous Sulfate 324 Mg Tablet.) 324 mg PO Q48H [facility] Last Admin: 10/05/23 08:25 Dose: 324 mg Gabapentin (Gabapentin 400 Mg Capsule) 800 mg PO TID@0800,1200,1700 [facility] Last Admin: 02/27/23 08:25 Dose: 800 mg Hydroxyzine HCl (Hydroxyzine Hcl 25 Mg Tablet) 25 mg PO TID PRN PRN Reason: Anxiety Last Admin: 02/26/23 20:11 Dose: 25 mg Magnesium Hydroxide (Milk Of Magnesia 30 Ml Oral.Susp) 30 ml PO DAILY PRN PRN Reason: Constipation Methylphenidate HCl (Methylphenidate Hcl 10 Mg Tablet) 10 mg PO BID@0800,1500 [facility] Last Admin: 02/27/23 08:26 Dose: 10 mg Metronidazole (Metronidazole 0.75 % Gel 45 Gm Tube) 1 appl TOPICAL BID [facility] Last Admin: 02/27/23 08:29 Dose: Not Given Nicotine (Nicotine 21 Mg Patch.Td24) 21 mg TRANSDERMA DAILY PRN PRN Reason: smoking cessation Last Admin: 02/26/23 15:50 Dose: 21 mg Nicotine Polacrilex (Nicotine Polacrilex 2 Mg Gum) 4 mg BUCCAL Q2H PRN PRN Reason: Nicotine Cravings Prazosin HCl (Prazosin Hcl 5 Mg Capsule) 5 mg PO BEDTIME [facility]; Protocol Last Admin: 02/26/23 20:11 Dose: 5 mg Quetiapine Fumarate (Quetiapine Fumarate 200 Mg Tablet) 200 mg PO BEDTIME [facility] Last Admin: 02/26/23 20:11 Dose: 200 mg Senna (Sennosides 8.6 Mg Tablet) 8.6 mg PO BID [facility] Last Admin: 02/27/23 08:26 Dose: 8.6 mg Trazodone HCl (Trazodone Hcl 100 Mg Tablet) 100 mg PO BEDTIME PRN PRN Reason: Insomnia Last Admin: 02/25/23 19:56 Dose: 100 mg Zolpidem Tartrate (Zolpidem Tartrate 5 Mg Tablet) 5 mg PO BEDTIME [facility] Last Admin: 02/26/23 20:11 Dose: 5 mg Allergies Allergies Allergy/AdvReac Type Severity Reaction Status Date / Time ketamine AdvReac Severe Agitated Verified 10/29/22 15:22 phenobarbital AdvReac Vomiting Verified 10/29/22 15:22 Assessment & Plan Assessment & Plan (1) MDD (major depressive disorder), recurrent episode, severe: Status: Acute Code(s): F33.2 - Major depressive disorder, recurrent severe without psychotic features (2) Chronic post-traumatic stress disorder (PTSD): Status: Acute Code(s): F43.12 - Post-traumatic stress disorder, chronic (3) Cocaine use disorder, moderate, dependence: Status: Acute Code(s): F14.20 - Cocaine dependence, uncomplicated (4) Alcohol use disorder: Status: Chronic Plan Patient is a 52 year old male with hx of MDD, ETOH use d/o with multiple inpatient hospitalizations who was seen by [facility] Specialist d/t suicidal ideation with intentional overdose of Wellbutrin and Seroquel secondary to increased depression from his substance use. Plan: CV 15 minute safety checks Continue home medications Referral to outpatient providers Referral to substance abuse program? Consult to addiction services [place] 02/26: KAMILLA DORMAN, pt reports he is no longer having withdrawal symptoms. DC Ativan. Start home medication, Ambien 5mg PO bedtime, Ritalin 10mg PO BID. Patient would like to be start on Antabuse, however it is non-formulary in this hospital; will contact pharmacy to determine if there is a way to obtain medication;pt has hx of taking this med in past. Patient reports feeling okay today. Patient stated, I think the withdrawals are gone. I'm doing better. I hope I can get into a program. I also want to start taking Antabuse to help me stop drinking . Denies SI/HI/VH/AH. 02/27: Patient reports feeling good today. Patient stated, I'm happy to have started taking Antabuse. I took it in the past so I'm aware of the risks and benefits of it . Risks/benefits reviewed with patient. He reports feeling better than first arriving. Hoping to be accepted into substance abuse program. Continue current tx plan. Patient educated on: diagnosis, medication risk/benefits, substance abuse and therapeutic strategies Informed Consent: understands Reason for continued inpatient stay Substantial Risk for: med/psych decompensation Time Spent With Patient Time: Total time managing care of this patient today _30___ minutes.
[2023-02-27 20:38] VITALS: BP 166/88; PULSE 80; TEMP 36.4; O2SAT 97
[2023-02-27] MEDS: Zolpidem Tartrate 5 MG TABLET PO (20:44)
[2023-02-27] MEDS: QUEtiapine Fumarate 200 MG TABLET PO (20:44)
[2023-02-27] MEDS: Milk of Magnesia 30 ML ORAL.SUSP PO (20:45)
--- NOTE | 2023-02-27 21:15 | MHC.RECOVSUP ---
? Reason for consult: ETOH o? Current location:?324-2 o? Identified substance use concern:? -? Support ?? Intervention: o? Community resources provided o? Harm reduction discussion ? Plan: Pt wants to continue inpatient treatment. ? Additional information:[facility] met with this pt and discussed treatment options as well as aftercare, pt stated he wants all the help he can get [facility] provided this pt with recovery resources and contact information to obtain outpatient services. PT wants to continue inpatient treatment and obtain a [facility].
--- NOTE | 2023-02-28 09:17 | HO.PSYCHPN ---
Subjective Subjective Date of Service: 02/28/23 Reason For Visit: F33.2, F14.20, F10.20 Subjective Notes: Conditional Voluntary Interim History: Reviewed in team and . Patient reports feeling good today. Hoping to get into program; states if he does not then he will either go to a homeless residential or to his friends house to wait for an open bed at program. denies SI/HI/VH/AH. Medication Compliance: Yes Side effects from medications: No Attending Groups: Yes Review of Systems Constitutional: Reports as per HPI Eyes: Reports as per HPI Reports as per HPI Cardiovascular: Reports as per HPI Respiratory: Reports as per HPI Gastrointestinal: Reports as per HPI Genitourinary: Reports as per HPI Musculoskeletal: Reports as per HPI Skin/Breast: Reports as per HPI Reports as per HPI Psychiatric: Reports as per HPI Endocrine: Reports as per HPI Hematologic/Lymphatic: Reports as per HPI Allergic/Immunologic: Reports as per HPI Mental Status Exam Mental Status Exam Narrative: Pt is alert and oriented; behavior is cooperative and calm; dressed in casual attire; mood is described as good ; eye contact appropriate; Speech is normal rate, volume and prosody and not pressured; no psychomotor agitation/retardation present; thought process is organized and goal directed; Thought content is on tx; otherwise pertinent to relevant topics and without any delusional content, paranoid ideations or grandiosity; denies SI/HI. There is no evidence of perceptual disturbance. Patients insight and judgment are poor but improving. Diagnostics Vital Signs (24Hr): Vital Signs - 24 hr 02/27/23 20:38 Temperature 97.5 F Pulse Rate 80 Blood Pressure 166/88 H Pulse Oximetry 97 Oxygen Delivery Method Room Air BMI result Body Mass Index 29.2 Labs 02/26/23 14:48 02/26/23 14:48 Labs: Laboratory Results - last 48 hr 02/26/23 14:48 WBC 6.9 RBC 4.62 Hgb 13.9 L Hct 40.3 L MCV 87.2 MCH 30.1 MCHC 34.5 RDW 12.8 Plt Count 212 MPV 10.3 Immature Gran % (Auto) 0.3 Neut % (Auto) 61.4 Lymph % (Auto) 22.8 Worth % (Auto) 9.9 Eos % (Auto) 4.6 H Baso % (Auto) 1.0 Lymph # (Auto) 1.6 Worth # (Auto) 0.7 Eos # (Auto) 0.3 Baso # (Auto) 0.1 Abs Immat Gran (auto) 0.02 Absolute Neuts (auto) 4.2 Absolute Nucleated RBC 0.000 Nucleated RBC % (auto) 0.0 Sodium 135 Potassium 4.5 Chloride 104 Carbon Dioxide 20 L Anion Gap 16 BUN 19 H Creatinine 0.90 Estim Creat Clear Calc 119.6 Estimated GFR > 60 Random Glucose 97 Calcium 9.6 D Total Bilirubin 0.3 Direct Bilirubin 0.1 AST 12 ALT 15 Alkaline Phosphatase 84 Total Protein 7.2 Albumin 4.4 Medications Medications Current Medications Acetaminophen (Acetaminophen 325 Mg Tablet) 650 mg PO Q6H PRN PRN Reason: Headache/Pain Mild Scale (1-3) Al Hydroxide/Mg Hydroxide (Magnesium Hydrox/Alum Hydrox 30 Ml Oral.Susp) 30 ml PO Q6H PRN PRN Reason: Heartburn/Nausea Buprenorphine/Naloxone (Buprenorphine/Naloxone 8/2 Mg Film) 1 film SUBLINGUAL TID@0800,1200,1800 [facility] Last Admin: 02/27/23 18:05 Dose: 1 film Bupropion HCl (Bupropion Hcl Xl 150 Mg Tab.Er.24h) 450 mg PO DAILY [facility] Last Admin: 02/27/23 08:26 Dose: 450 mg Calcium Carbonate/Cholecalciferol (Calcium + Vitamin D 250 Mg Tablet) 500 mg PO DAILY [facility] Last Admin: 02/27/23 08:25 Dose: 500 mg Celecoxib (Celecoxib 200 Mg Capsule) 200 mg PO BID [facility] Last Admin: 02/27/23 20:44 Dose: 200 mg Chlorpromazine HCl (Chlorpromazine Hcl 25 Mg Tablet) 50 mg PO BID PRN PRN Reason: Anxiety Cyclobenzaprine HCl (Cyclobenzaprine Hcl 10 Mg Tablet) 10 mg PO TID [facility] Last Admin: 02/27/23 20:44 Dose: 10 mg Disulfiram (Disulfiram 250 Mg Tablet) 250 mg PO Q24H [facility] Stop: 03/08/23 11:01 Last Admin: 02/27/23 11:01 Dose: 250 mg Ferrous Sulfate (Ferrous Sulfate 324 Mg Tablet.) 324 mg PO Q48H [facility] Last Admin: 02/27/23 08:25 Dose: 324 mg Gabapentin (Gabapentin 400 Mg Capsule) 800 mg PO TID@0800,1200,1700 [facility] Last Admin: 02/27/23 18:05 Dose: 800 mg Hydroxyzine HCl (Hydroxyzine Hcl 25 Mg Tablet) 25 mg PO TID PRN PRN Reason: Anxiety Last Admin: 02/27/23 20:45 Dose: 25 mg Magnesium Hydroxide (Milk Of Magnesia 30 Ml Oral.Susp) 30 ml PO DAILY PRN PRN Reason: Constipation Last Admin: 02/27/23 20:45 Dose: 30 ml Methylphenidate HCl (Methylphenidate Hcl 10 Mg Tablet) 10 mg PO BID@0800,1500 [facility] Last Admin: 02/27/23 14:05 Dose: 10 mg Metronidazole (Metronidazole 0.75 % Gel 45 Gm Tube) 1 appl TOPICAL BID [facility] Last Admin: 02/27/23 21:49 Dose: Not Given Nicotine (Nicotine 21 Mg Patch.Td24) 21 mg TRANSDERMA DAILY PRN PRN Reason: smoking cessation Last Admin: 02/27/23 14:04 Dose: 21 mg Nicotine Polacrilex (Nicotine Polacrilex 2 Mg Gum) 4 mg BUCCAL Q2H PRN PRN Reason: Nicotine Cravings Prazosin HCl (Prazosin Hcl 5 Mg Capsule) 5 mg PO BEDTIME [facility]; Protocol Last Admin: 02/27/23 20:45 Dose: 5 mg Quetiapine Fumarate (Quetiapine Fumarate 200 Mg Tablet) 200 mg PO BEDTIME [facility] Last Admin: 02/27/23 20:44 Dose: 200 mg Senna (Sennosides 8.6 Mg Tablet) 8.6 mg PO BID [facility] Last Admin: 02/27/23 20:44 Dose: 8.6 mg Trazodone HCl (Trazodone Hcl 100 Mg Tablet) 100 mg PO BEDTIME PRN PRN Reason: Insomnia Last Admin: 02/25/23 19:56 Dose: 100 mg Zolpidem Tartrate (Zolpidem Tartrate 5 Mg Tablet) 5 mg PO BEDTIME [facility] Last Admin: 02/27/23 20:44 Dose: 5 mg Allergies Allergies Allergy/AdvReac Type Severity Reaction Status Date / Time ketamine AdvReac Severe Agitated Verified 10/29/22 15:22 phenobarbital AdvReac Vomiting Verified 10/29/22 15:22 Assessment & Plan Assessment & Plan (1) MDD (major depressive disorder), recurrent episode, severe: Status: Acute Code(s): F33.2 - Major depressive disorder, recurrent severe without psychotic features (2) Chronic post-traumatic stress disorder (PTSD): Status: Acute Code(s): F43.12 - Post-traumatic stress disorder, chronic (3) Cocaine use disorder, moderate, dependence: Status: Acute Code(s): F14.20 - Cocaine dependence, uncomplicated (4) Alcohol use disorder: Status: Chronic Plan Patient is a 52 year old male with hx of MDD, ETOH use d/o with multiple inpatient hospitalizations who was seen by [facility] d/t suicidal ideation with intentional overdose of Wellbutrin and Seroquel secondary to increased depression from his substance use. Plan: CV 15 minute safety checks Continue home medications Referral to outpatient providers Referral to substance abuse program? Consult to addiction services [place] 02/26: DC LAKIA, pt reports he is no longer having withdrawal symptoms. DC Ativan. Start home medication, Ambien 5mg PO bedtime, Ritalin 10mg PO BID. Patient would like to be start on Antabuse, however it is non-formulary in this hospital; will contact pharmacy to determine if there is a way to obtain medication;pt has hx of taking this med in past. Patient reports feeling okay today. Patient stated, I think the withdrawals are gone. I'm doing better. I hope I can get into a program. I also want to start taking Antabuse to help me stop drinking . Denies SI/HI/VH/AH. 02/27: Patient reports feeling good today. Patient stated, I'm happy to have started taking Antabuse. I took it in the past so I'm aware of the risks and benefits of it . Risks/benefits reviewed with patient. He reports feeling better than first arriving. Hoping to be accepted into substance abuse program. Continue current tx plan. 02/28: Patient reports feeling good today. Hoping to get into program; states if he does not then he will either go to a homeless residential or to his friends house to wait for an open bed at program. denies SI/HI/VH/AH. Continue current tx plan. Possible DC on Friday. Patient educated on: diagnosis, medication risk/benefits, substance abuse and therapeutic strategies Informed Consent: understands Reason for continued inpatient stay Substantial Risk for: med/psych decompensation Time Spent With Patient Time: Total time managing care of this patient today _30___ minutes.
[2023-02-28 09:20] VITALS: BP 132/66; PULSE 75; TEMP 36.6; O2SAT 100
[2023-02-28] MEDS: Calcium + Vitamin D 250 MG TABLET 500 MG PO (09:23)
[2023-02-28] MEDS: Sennosides 8.6 MG TABLET PO (09:25)
[2023-02-28] MEDS: Gabapentin 400 MG CAPSULE 800 MG PO ×3 (09:26→16:55)
--- NOTE | 2023-02-28 15:57 | PM.EVENT ---
Event Note Date of Service: 02/28/23 Event Note: Addiction consult placed Patient seen by Immigration Paralegal no follow up indicated at this time Time Spent With Patient Time: Total time managing care of this patient today ____ minutes.
[2023-02-28 19:55] VITALS: BP 155/90; PULSE 70; RESP 18; TEMP 37; O2SAT 96
[2023-02-28] MEDS: QUEtiapine Fumarate 200 MG TABLET PO (20:17)
[2023-02-28] MEDS: Zolpidem Tartrate 5 MG TABLET PO (20:18)
[2023-03-01] MEDS: Calcium + Vitamin D 250 MG TABLET 500 MG PO (09:21)
[2023-03-01 09:25] VITALS: BP 132/71; PULSE 69; RESP 18; TEMP 36.7; O2SAT 97
--- NOTE | 2023-03-01 12:21 | HO.PSYCHPN ---
Subjective Subjective Date of Service: 03/01/23 Reason For Visit: F33.2, F14.20, F10.20 Interim History: Reviewed with RN. Patient reports feeling anxious about the future after he leaves. Concerned there were no beds at rehab and that he will have to live with a friends. Asking about PRN medications. Discussed Seroquel which he says helped in the past. denies SI/HI/VH/AH. Review of Systems Review of Systems Minor upper extremity tremors Chronic right hip pain Patient otherwise has no acute medical complaints at this time Constitutional: Reports as per HPI Eyes: Reports as per HPI Reports as per HPI Cardiovascular: Reports as per HPI Respiratory: Reports as per HPI Gastrointestinal: Reports as per HPI Genitourinary: Reports as per HPI Musculoskeletal: Reports as per HPI Skin/Breast: Reports as per HPI Reports as per HPI Psychiatric: Reports as per HPI Endocrine: Reports as per HPI Hematologic/Lymphatic: Reports as per HPI Allergic/Immunologic: Reports as per HPI Mental Status Exam Mental Status Exam Narrative: Pt is alert and oriented; behavior is cooperative and calm; dressed in casual attire; mood is described as good ; eye contact appropriate; Speech is normal rate, volume and prosody and not pressured; no psychomotor agitation/retardation present; thought process is organized and goal directed; Thought content is on tx; otherwise pertinent to relevant topics and without any delusional content, paranoid ideations or grandiosity; denies SI/HI. There is no evidence of perceptual disturbance. Patients insight and judgment are poor but improving. Diagnostics Vital Signs (24Hr): Vital Signs - 24 hr 02/28/23 19:55 03/01/23 09:25 Temperature 98.6 F 98.0 F Pulse Rate 70 69 Respiratory Rate 18 18 Blood Pressure 155/90 H 132/71 Pulse Oximetry 96 97 Oxygen Delivery Method Room Air Room Air BMI result Body Mass Index 29.2 Labs 02/26/23 14:48 02/26/23 14:48 Medications Medications Current Medications Acetaminophen (Acetaminophen 325 Mg Tablet) 650 mg PO Q6H PRN PRN Reason: Headache/Pain Mild Scale (1-3) Al Hydroxide/Mg Hydroxide (Magnesium Hydrox/Alum Hydrox 30 Ml Oral.Susp) 30 ml PO Q6H PRN PRN Reason: Heartburn/Nausea Buprenorphine/Naloxone (Buprenorphine/Naloxone 8/2 Mg Film) 1 film SUBLINGUAL TID@0800,1200,1800 [facility] Last Admin: 03/01/23 11:52 Dose: 1 film Bupropion HCl (Bupropion Hcl Xl 150 Mg Tab.Er.24h) 450 mg PO DAILY [facility] Last Admin: 03/01/23 09:21 Dose: 450 mg Calcium Carbonate/Cholecalciferol (Calcium + Vitamin D 250 Mg Tablet) 500 mg PO DAILY [facility] Last Admin: 03/01/23 09:21 Dose: 500 mg Celecoxib (Celecoxib 200 Mg Capsule) 200 mg PO BID [facility] Last Admin: 03/01/23 09:21 Dose: 200 mg Chlorpromazine HCl (Chlorpromazine Hcl 25 Mg Tablet) 50 mg PO BID PRN PRN Reason: Anxiety Last Admin: 02/28/23 15:05 Dose: 50 mg Disulfiram (Disulfiram 250 Mg Tablet) 250 mg PO Q24H [facility] Stop: 03/08/23 11:01 Last Admin: 03/01/23 11:52 Dose: 250 mg Ferrous Sulfate (Ferrous Sulfate 324 Mg Tablet.Dr) 324 mg PO Q48H [facility] Last Admin: 03/01/23 09:22 Dose: 324 mg Gabapentin (Gabapentin 400 Mg Capsule) 800 mg PO TID@0800,1200,1700 [facility] Last Admin: 03/01/23 11:51 Dose: 800 mg Hydroxyzine HCl (Hydroxyzine Hcl 25 Mg Tablet) 25 mg PO TID PRN PRN Reason: Anxiety Last Admin: 02/28/23 16:55 Dose: 25 mg Magnesium Hydroxide (Milk Of Magnesia 30 Ml Oral.Susp) 30 ml PO DAILY PRN PRN Reason: Constipation Last Admin: 02/27/23 20:45 Dose: 30 ml Methocarbamol (Methocarbamol 750 Mg Tablet) 750 mg PO Q8H PRN PRN Reason: Pain, Moderate(Pain Scale 4-6) Last Admin: 03/01/23 12:03 Dose: 750 mg Methylphenidate HCl (Methylphenidate Hcl 10 Mg Tablet) 10 mg PO BID@0800,1500 [facility] Last Admin: 03/01/23 09:21 Dose: 10 mg Metronidazole (Metronidazole 0.75 % Gel 45 Gm Tube) 1 appl TOPICAL BID [facility] Last Admin: 03/01/23 09:25 Dose: Not Given Nicotine (Nicotine 21 Mg Patch.Td24) 21 mg TRANSDERMA DAILY PRN PRN Reason: smoking cessation Last Admin: 02/28/23 14:32 Dose: 21 mg Nicotine Polacrilex (Nicotine Polacrilex 2 Mg Gum) 4 mg BUCCAL Q2H PRN PRN Reason: Nicotine Cravings Prazosin HCl (Prazosin Hcl 5 Mg Capsule) 5 mg PO BEDTIME [facility]; Protocol Last Admin: 02/28/23 20:17 Dose: 5 mg Quetiapine Fumarate (Quetiapine Fumarate 200 Mg Tablet) 200 mg PO BEDTIME [facility] Last Admin: 02/28/23 20:17 Dose: 200 mg Senna (Sennosides 8.6 Mg Tablet) 8.6 mg PO BID [facility] Last Admin: 03/01/23 09:21 Dose: 8.6 mg Trazodone HCl (Trazodone Hcl 100 Mg Tablet) 100 mg PO BEDTIME PRN PRN Reason: Insomnia Last Admin: 02/25/23 19:56 Dose: 100 mg Zolpidem Tartrate (Zolpidem Tartrate 5 Mg Tablet) 5 mg PO BEDTIME [facility] Last Admin: 02/28/23 20:18 Dose: 5 mg Allergies Allergies Allergy/AdvReac Type Severity Reaction Status Date / Time ketamine AdvReac Severe Agitated Verified 10/29/22 15:22 phenobarbital AdvReac Vomiting Verified 10/29/22 15:22 Assessment & Plan Assessment & Plan (1) MDD (major depressive disorder), recurrent episode, severe: Status: Acute Code(s): F33.2 - Major depressive disorder, recurrent severe without psychotic features (2) Chronic post-traumatic stress disorder (PTSD): Status: Acute Code(s): F43.12 - Post-traumatic stress disorder, chronic (3) Cocaine use disorder, moderate, dependence: Status: Acute Code(s): F14.20 - Cocaine dependence, uncomplicated (4) Alcohol use disorder: Status: Chronic Plan Patient is a 52 year old male with hx of MDD, ETOH use d/o with multiple inpatient hospitalizations who was seen by [facility]ist d/t suicidal ideation with intentional overdose of Wellbutrin and Seroquel secondary to increased depression from his substance use. Plan: CV 15 minute safety checks Continue home medications Referral to outpatient providers Referral to substance abuse program? Consult to addiction services [place] 02/26: KAMILLA DORMAN, pt reports he is no longer having withdrawal symptoms. KAMILLA Ativan. Start home medication, Ambien 5mg PO bedtime, Ritalin 10mg PO BID. Patient would like to be start on Antabuse, however it is non-formulary in this hospital; will contact pharmacy to determine if there is a way to obtain medication;pt has hx of taking this med in past. Patient reports feeling okay today. Patient stated, I think the withdrawals are gone. I'm doing better. I hope I can get into a program. I also want to start taking Antabuse to help me stop drinking . Denies SI/HI/VH/AH. 02/27: Patient reports feeling good today. Patient stated, I'm happy to have started taking Antabuse. I took it in the past so I'm aware of the risks and benefits of it . Risks/benefits reviewed with patient. He reports feeling better than first arriving. Hoping to be accepted into substance abuse program. Continue current tx plan. 02/28: Patient reports feeling good today. Hoping to get into program; states if he does not then he will either go to a homeless longterm or to his friends house to wait for an open bed at program. denies SI/HI/VH/AH. Continue current tx plan. Possible DC on Friday. 03/01: Seroquel 50 mg TID PRN anxiety. Reason for continued inpatient stay Substantial Risk for: harm to self, inability to function and rapid decompensation Time Spent With Patient Time: Total time managing care of this patient today ____ minutes.
[2023-03-01 19:55] VITALS: BP 150/89; PULSE 76; RESP 16; TEMP 36.6; O2SAT 100
[2023-03-01] MEDS: QUEtiapine Fumarate 200 MG TABLET PO (20:04)
[2023-03-01] MEDS: traZODone HCL 100 MG TABLET PO (21:20)
[2023-03-02 08:20] VITALS: BP 130/62; PULSE 61; RESP 18; TEMP 36.4; O2SAT 98
[2023-03-02] MEDS: Calcium + Vitamin D 250 MG TABLET 500 MG PO (08:21)
--- NOTE | 2023-03-02 19:13 | HO.PSYCHPN ---
Subjective Subjective Date of Service: 03/02/23 Reason For Visit: F33.2, F14.20, F10.20 Interim History: Reviewed with RN. Patient reports feeling anxious about the future after he leaves. He asks for a benzo so I can reset like they did at the other hospital. He gets upset when this is declined due to history of substance misuse and risk of dependence. He says nothing else helps. Denies SI/HI/VH/AH. Review of Systems Review of Systems Minor upper extremity tremors Chronic right hip pain Patient otherwise has no acute medical complaints at this time Constitutional: Reports as per HPI Eyes: Reports as per HPI Reports as per HPI Cardiovascular: Reports as per HPI Respiratory: Reports as per HPI Gastrointestinal: Reports as per HPI Genitourinary: Reports as per HPI Musculoskeletal: Reports as per HPI Skin/Breast: Reports as per HPI Reports as per HPI Psychiatric: Reports as per HPI Endocrine: Reports as per HPI Hematologic/Lymphatic: Reports as per HPI Allergic/Immunologic: Reports as per HPI Mental Status Exam Mental Status Exam Narrative: Pt is alert and oriented; behavior is cooperative and calm; dressed in casual attire; mood is described as good ; eye contact appropriate; Speech is normal rate, volume and prosody and not pressured; no psychomotor agitation/retardation present; thought process is organized and goal directed; Thought content is on tx; otherwise pertinent to relevant topics and without any delusional content, paranoid ideations or grandiosity; denies SI/HI. There is no evidence of perceptual disturbance. Patients insight and judgment are poor but improving. Diagnostics Vital Signs (24Hr): Vital Signs - 24 hr 03/01/23 19:55 03/02/23 08:20 Temperature 98 F 97.6 F Pulse Rate 76 61 Respiratory Rate 16 18 Blood Pressure 150/89 H 130/62 Pulse Oximetry 100 98 Oxygen Delivery Method Room Air BMI result Body Mass Index 29.2 Labs 02/26/23 14:48 02/26/23 14:48 Medications Medications Current Medications Acetaminophen (Acetaminophen 325 Mg Tablet) 650 mg PO Q6H PRN PRN Reason: Headache/Pain Mild Scale (1-3) Al Hydroxide/Mg Hydroxide (Magnesium Hydrox/Alum Hydrox 30 Ml Oral.Susp) 30 ml PO Q6H PRN PRN Reason: Heartburn/Nausea Buprenorphine/Naloxone (Buprenorphine/Naloxone 8/2 Mg Film) 1 film SUBLINGUAL TID@0800,1200,1800 [facility] Last Admin: 03/02/23 17:37 Dose: 1 film Bupropion HCl (Bupropion Hcl Xl 150 Mg Tab.Er.24h) 450 mg PO DAILY [facility] Last Admin: 03/02/23 08:21 Dose: 450 mg Calcium Carbonate/Cholecalciferol (Calcium + Vitamin D 250 Mg Tablet) 500 mg PO DAILY [facility] Last Admin: 03/02/23 08:21 Dose: 500 mg Celecoxib (Celecoxib 200 Mg Capsule) 200 mg PO BID [facility] Last Admin: 03/02/23 08:21 Dose: 200 mg Chlorpromazine HCl (Chlorpromazine Hcl 25 Mg Tablet) 50 mg PO BID PRN PRN Reason: Anxiety Last Admin: 02/28/23 15:05 Dose: 50 mg Disulfiram (Disulfiram 250 Mg Tablet) 250 mg PO Q24H [facility] Stop: 03/08/23 11:01 Last Admin: 03/02/23 11:51 Dose: 250 mg Ferrous Sulfate (Ferrous Sulfate 324 Mg Tablet.Dr) 324 mg PO Q48H [facility] Last Admin: 03/01/23 09:22 Dose: 324 mg Gabapentin (Gabapentin 400 Mg Capsule) 800 mg PO TID@0800,1200,1700 [facility] Last Admin: 03/02/23 16:35 Dose: 800 mg Hydroxyzine HCl (Hydroxyzine Hcl 25 Mg Tablet) 25 mg PO TID PRN PRN Reason: Anxiety Last Admin: 03/01/23 20:04 Dose: 25 mg Magnesium Hydroxide (Milk Of Magnesia 30 Ml Oral.Susp) 30 ml PO DAILY PRN PRN Reason: Constipation Last Admin: 02/27/23 20:45 Dose: 30 ml Methocarbamol (Methocarbamol 750 Mg Tablet) 750 mg PO Q8H PRN PRN Reason: Pain, Moderate(Pain Scale 4-6) Last Admin: 03/01/23 20:04 Dose: 750 mg Methylphenidate HCl (Methylphenidate Hcl 10 Mg Tablet) 10 mg PO BID@0800,1500 [facility] Last Admin: 03/02/23 14:32 Dose: 10 mg Metronidazole (Metronidazole 0.75 % Gel 45 Gm Tube) 1 appl TOPICAL BID [facility] Last Admin: 03/02/23 08:21 Dose: Not Given Nicotine (Nicotine 21 Mg Patch.Td24) 21 mg TRANSDERMA DAILY PRN PRN Reason: smoking cessation Last Admin: 02/28/23 14:32 Dose: 21 mg Nicotine Polacrilex (Nicotine Polacrilex 2 Mg Gum) 4 mg BUCCAL Q2H PRN PRN Reason: Nicotine Cravings Prazosin HCl (Prazosin Hcl 5 Mg Capsule) 5 mg PO BEDTIME [facility]; Protocol Last Admin: 03/01/23 20:03 Dose: 5 mg Quetiapine Fumarate (Quetiapine Fumarate 200 Mg Tablet) 200 mg PO BEDTIME [facility] Last Admin: 03/01/23 20:04 Dose: 200 mg Quetiapine Fumarate (Quetiapine Fumarate 50 Mg Tablet) 50 mg PO BID PRN PRN Reason: Anxiety Last Admin: 03/02/23 14:32 Dose: 50 mg Senna (Sennosides 8.6 Mg Tablet) 8.6 mg PO BID [facility] Last Admin: 03/02/23 08:21 Dose: 8.6 mg Trazodone HCl (Trazodone Hcl 100 Mg Tablet) 100 mg PO BEDTIME PRN PRN Reason: Insomnia Last Admin: 03/01/23 21:20 Dose: 100 mg Zolpidem Tartrate (Zolpidem Tartrate 5 Mg Tablet) 5 mg PO BEDTIME [facility] Last Admin: 03/01/23 20:04 Dose: 5 mg Allergies Allergies Allergy/AdvReac Type Severity Reaction Status Date / Time ketamine AdvReac Severe Agitated Verified 10/29/22 15:22 phenobarbital AdvReac Vomiting Verified 10/29/22 15:22 Assessment & Plan Assessment & Plan (1) MDD (major depressive disorder), recurrent episode, severe: Status: Acute Code(s): F33.2 - Major depressive disorder, recurrent severe without psychotic features (2) Chronic post-traumatic stress disorder (PTSD): Status: Acute Code(s): F43.12 - Post-traumatic stress disorder, chronic (3) Cocaine use disorder, moderate, dependence: Status: Acute Code(s): F14.20 - Cocaine dependence, uncomplicated (4) Alcohol use disorder: Status: Chronic Plan Patient is a 52 year old male with hx of MDD, ETOH use d/o with multiple inpatient hospitalizations who was seen by [facility] d/t suicidal ideation with intentional overdose of Wellbutrin and Seroquel secondary to increased depression from his substance use. Plan: CV 15 minute safety checks Continue home medications Referral to outpatient providers Referral to substance abuse program? Consult to addiction services [place] 02/26: DC [facility]AKIA, pt reports he is no longer having withdrawal symptoms. DC Ativan. Start home medication, Ambien 5mg PO bedtime, Ritalin 10mg PO BID. Patient would like to be start on Antabuse, however it is non-formulary in this hospital; will contact pharmacy to determine if there is a way to obtain medication;pt has hx of taking this med in past. Patient reports feeling okay today. Patient stated, I think the withdrawals are gone. I'm doing better. I hope I can get into a program. I also want to start taking Antabuse to help me stop drinking . Denies SI/HI/VH/AH. 02/27: Patient reports feeling good today. Patient stated, I'm happy to have started taking Antabuse. I took it in the past so I'm aware of the risks and benefits of it . Risks/benefits reviewed with patient. He reports feeling better than first arriving. Hoping to be accepted into substance abuse program. Continue current tx plan. 02/28: Patient reports feeling good today. Hoping to get into program; states if he does not then he will either go to a homeless [facility] or to his friends house to wait for an open bed at program. denies SI/HI/VH/AH. Continue current tx plan. Possible DC on Friday. 03/01: Seroquel 50 mg TID PRN anxiety. 03/02: Continue current treatment plan. Reason for continued inpatient stay Substantial Risk for: harm to self and rapid decompensation Time Spent With Patient Time: Total time managing care of this patient today ____ minutes.
[2023-03-02 20:00] VITALS: BP 174/87; PULSE 77; RESP 18; TEMP 36.7; O2SAT 98
[2023-03-02] MEDS: QUEtiapine Fumarate 200 MG TABLET PO (20:05)
[2023-03-02] MEDS: traZODone HCL 100 MG TABLET PO (21:07)
[2023-03-03 06:00] VITALS: BP 120/67; PULSE 64; RESP 18; TEMP 36.7; O2SAT 100
[2023-03-03] MEDS: Calcium + Vitamin D 250 MG TABLET 500 MG PO (08:13)
--- NOTE | 2023-03-03 11:58 | HO.PSYCHPN ---
Subjective Subjective Date of Service: 03/03/23 Reason For Visit: F33.2, F14.20, F10.20 Subjective Notes: Conditional Voluntary Interim History: Patient was seen and discussed in rounds today. Records and plans were reviewed. He is doing better, engaged but anxious over his discharge, possibly tomorrow. He does have an irritable edge but not with me. He is interested in maybe increasing his Seroquel which I will review and address. He has been isolative but attending groups. Eating and sleeping adequately. He also requests is his Antabuse to be at 12 noon. I ordered Seroquel 25 mg b.i.d. p.r.n. Review of Systems Review of Systems Yes all other systems are reviewed and are negative Mental Status Exam Mental Status Exam Narrative: In today's visit he is alert, oriented and pleasant. Normal speech. Moderate eye contact. Appropriate and varied affect. Moderate anxiety present. No signs of psychosis. Cognitively intact. Judgment is intact Diagnostics Vital Signs (24Hr): Vital Signs - 24 hr 03/02/23 20:00 03/03/23 06:00 Temperature 98.1 F 98.1 F Pulse Rate 77 64 Respiratory Rate 18 18 Blood Pressure 174/87 H 120/67 Pulse Oximetry 98 100 Oxygen Delivery Method Room Air Room Air BMI result Body Mass Index 29.2 Labs 02/26/23 14:48 02/26/23 14:48 Medications Medications Current Medications Acetaminophen (Acetaminophen 325 Mg Tablet) 650 mg PO Q6H PRN PRN Reason: Headache/Pain Mild Scale (1-3) Al Hydroxide/Mg Hydroxide (Magnesium Hydrox/Alum Hydrox 30 Ml Oral.Susp) 30 ml PO Q6H PRN PRN Reason: Heartburn/Nausea Buprenorphine/Naloxone (Buprenorphine/Naloxone 8/2 Mg Film) 1 film SUBLINGUAL TID@0800,1200,1800 [facility] Last Admin: 03/03/23 08:13 Dose: 1 film Bupropion HCl (Bupropion Hcl Xl 150 Mg Tab.Er.24h) 450 mg PO DAILY [facility] Last Admin: 03/03/23 08:13 Dose: 450 mg Calcium Carbonate/Cholecalciferol (Calcium + Vitamin D 250 Mg Tablet) 500 mg PO DAILY [facility] Last Admin: 03/03/23 08:13 Dose: 500 mg Celecoxib (Celecoxib 200 Mg Capsule) 200 mg PO BID [facility] Last Admin: 03/03/23 08:13 Dose: 200 mg Chlorpromazine HCl (Chlorpromazine Hcl 25 Mg Tablet) 50 mg PO BID PRN PRN Reason: Anxiety Last Admin: 03/02/23 21:09 Dose: 50 mg Disulfiram (Disulfiram 250 Mg Tablet) 250 mg PO Q24H [facility] Stop: 03/08/23 11:01 Last Admin: 03/03/23 11:53 Dose: 250 mg Ferrous Sulfate (Ferrous Sulfate 324 Mg Tablet.Dr) 324 mg PO Q48H [facility] Last Admin: 03/03/23 08:13 Dose: 324 mg Gabapentin (Gabapentin 400 Mg Capsule) 800 mg PO TID@0800,1200,1700 [facility] Last Admin: 03/03/23 08:12 Dose: 800 mg Hydroxyzine HCl (Hydroxyzine Hcl 25 Mg Tablet) 25 mg PO TID PRN PRN Reason: Anxiety Last Admin: 03/02/23 20:06 Dose: 25 mg Magnesium Hydroxide (Milk Of Magnesia 30 Ml Oral.Susp) 30 ml PO DAILY PRN PRN Reason: Constipation Last Admin: 02/27/23 20:45 Dose: 30 ml Methocarbamol (Methocarbamol 750 Mg Tablet) 750 mg PO Q8H PRN PRN Reason: Pain, Moderate(Pain Scale 4-6) Last Admin: 03/02/23 20:06 Dose: 750 mg Methylphenidate HCl (Methylphenidate Hcl 10 Mg Tablet) 10 mg PO BID@0800,1500 [facility] Last Admin: 03/03/23 08:12 Dose: 10 mg Metronidazole (Metronidazole 0.75 % Gel 45 Gm Tube) 1 appl TOPICAL BID [facility] Last Admin: 03/03/23 08:17 Dose: Not Given Nicotine (Nicotine 21 Mg Patch.Td24) 21 mg TRANSDERMA DAILY PRN PRN Reason: smoking cessation Last Admin: 02/28/23 14:32 Dose: 21 mg Nicotine Polacrilex (Nicotine Polacrilex 2 Mg Gum) 4 mg BUCCAL Q2H PRN PRN Reason: Nicotine Cravings Prazosin HCl (Prazosin Hcl 5 Mg Capsule) 5 mg PO BEDTIME [facility]; Protocol Last Admin: 03/02/23 20:06 Dose: 5 mg Quetiapine Fumarate (Quetiapine Fumarate 200 Mg Tablet) 200 mg PO BEDTIME [facility] Last Admin: 03/02/23 20:05 Dose: 200 mg Quetiapine Fumarate (Quetiapine Fumarate 50 Mg Tablet) 50 mg PO BID PRN PRN Reason: Anxiety Last Admin: 03/02/23 14:32 Dose: 50 mg Senna (Sennosides 8.6 Mg Tablet) 8.6 mg PO BID [facility] Last Admin: 03/03/23 08:12 Dose: 8.6 mg Trazodone HCl (Trazodone Hcl 100 Mg Tablet) 100 mg PO BEDTIME PRN PRN Reason: Insomnia Last Admin: 03/02/23 21:07 Dose: 100 mg Zolpidem Tartrate (Zolpidem Tartrate 5 Mg Tablet) 5 mg PO BEDTIME [facility] Last Admin: 03/02/23 20:06 Dose: 5 mg Allergies Allergies Allergy/AdvReac Type Severity Reaction Status Date / Time ketamine AdvReac Severe Agitated Verified 10/29/22 15:22 phenobarbital AdvReac Vomiting Verified 10/29/22 15:22 Assessment & Plan Assessment & Plan (1) MDD (major depressive disorder), recurrent episode, severe: Status: Acute Code(s): F33.2 - Major depressive disorder, recurrent severe without psychotic features (2) Chronic post-traumatic stress disorder (PTSD): Status: Acute Code(s): F43.12 - Post-traumatic stress disorder, chronic (3) Cocaine use disorder, moderate, dependence: Status: Acute Code(s): F14.20 - Cocaine dependence, uncomplicated (4) Alcohol use disorder: Status: Chronic Plan Patient is a 52 year old male with hx of MDD, ETOH use d/o with multiple inpatient hospitalizations who was seen by [facility] d/t suicidal ideation with intentional overdose of Wellbutrin and Seroquel secondary to increased depression from his substance use. Plan: CV 15 minute safety checks Continue home medications Referral to outpatient providers Referral to substance abuse program? Consult to addiction services [place] 02/26: KAMILLA DORMAN, pt reports he is no longer having withdrawal symptoms. KAMILLA Ativan. Start home medication, Ambien 5mg PO bedtime, Ritalin 10mg PO BID. Patient would like to be start on Antabuse, however it is non-formulary in this hospital; will contact pharmacy to determine if there is a way to obtain medication;pt has hx of taking this med in past. Patient reports feeling okay today. Patient stated, I think the withdrawals are gone. I'm doing better. I hope I can get into a program. I also want to start taking Antabuse to help me stop drinking . Denies SI/HI/VH/AH. 02/27: Patient reports feeling good today. Patient stated, I'm happy to have started taking Antabuse. I took it in the past so I'm aware of the risks and benefits of it . Risks/benefits reviewed with patient. He reports feeling better than first arriving. Hoping to be accepted into substance abuse program. Continue current tx plan. 02/28: Patient reports feeling good today. Hoping to get into program; states if he does not then he will either go to a homeless custodial or to his friends house to wait for an open bed at program. denies SI/HI/VH/AH. Continue current tx plan. Possible DC on Friday. 03/01: Seroquel 50 mg TID PRN anxiety. 03/02: Continue current treatment plan. 03/03: Continue current regimen and plans. Change Antabuse to noon and add Seroquel 25 mg b.i.d. p.r.n. Patient educated on: medication risk/benefits Reason for continued inpatient stay Substantial Risk for: med/psych decompensation Time Spent With Patient Time: Total time managing care of this patient today ____ minutes.
[2023-03-03 20:15] VITALS: BP 143/67; PULSE 75; TEMP 36.3; O2SAT 97
[2023-03-03] MEDS: QUEtiapine Fumarate 200 MG TABLET PO (20:25)
[2023-03-03] MEDS: traZODone HCL 100 MG TABLET PO (21:37)
[2023-03-04] MEDS: Calcium + Vitamin D 250 MG TABLET 500 MG PO (08:10)
[2023-03-04 09:04] VITALS: BP 126/73; PULSE 78; RESP 20; TEMP 37.2; O2SAT 98
--- NOTE | 2023-03-04 11:06 | PM.PSYDC ---
DS: Providers Provider Date of Service: 03/04/23 Date of admission: 02/24/23 21:24 Date of discharge: 03/04/23 Primary care physician: Bhupinder Morales APRN Admitting clinician: Jelena Limon Attending physician on admission: Tommie Cueto Consults: 02/24/23 22:41 Consult to Hospitalist Routine Comment: Consulting Provider: Hospitalist Reason For Exam: admission physical 02/25/23 11:43 Addiction Medicine Routine Consulting Provider: Addiction Covering Reason for consultation: Would like options for ETOH abuse tx, antabuse?learning coach?program? Attending physician on discharge: Vic Campuzano Discharging clinician: Jelena Limon DS: Diagnosis Discharge Diagnosis (1) MDD (major depressive disorder), recurrent episode, severe: Status: Acute (2) Chronic post-traumatic stress disorder (PTSD): Status: Acute (3) Cocaine use disorder, moderate, dependence: Status: Acute (4) Alcohol use disorder: Status: Chronic DS: Medications Discharge Medications Home Medications: Home Medications Medication Instructions Recorded Confirmed multivitamin with folic acid 400 1 tab PO DAILY 10/07/22 02/26/23 mcg tablet (Tab-A-Tony) calcium carbonate 600 mg-vitamin 1 tab PO DAILY 02/24/23 02/26/23 D3 10 mcg (400 unit) tablet methocarbamol 750 mg tablet 750 mg PO Q8H PRN Pain 02/24/23 02/26/23 bupropion HCl 150 mg 24 hr tablet, 150 mg PO QAM 02/26/23 02/26/23 extended release (Wellbutrin XL) bupropion HCl 300 mg 24 hr tablet, 300 mg PO QAM 02/26/23 02/26/23 extended release (Wellbutrin XL) chlorpromazine 100 mg tablet 100 mg PO Q6H PRN Agitation 02/26/23 02/26/23 clonazepam 0.5 mg tablet 0.5 mg PO BID PRN Panic Attack(S) 02/26/23 02/26/23 hydroxyzine pamoate 50 mg capsule 50 mg PO TID PRN anxiety 02/26/23 02/26/23 methylphenidate HCl 10 mg tablet 10 mg PO BID 02/26/23 02/26/23 prazosin 5 mg capsule 5 mg PO BEDTIME 02/26/23 02/26/23 quetiapine 100 mg tablet (Seroquel) 100 mg PO TID 02/26/23 02/26/23 quetiapine 50 mg tablet (Seroquel) 50 mg BID PRN Panic Attack(S) 02/26/23 02/26/23 sennosides 8.6 mg tablet (senna) 8.6 mg PO BID 02/26/23 02/26/23 trazodone 100 mg tablet 100 mg PO BEDTIME PRN insomnia 02/26/23 02/26/23 zolpidem 10 mg tablet (Ambien) 10 mg PO BEDTIME 02/26/23 02/26/23 Previous Rx's Medication Instructions Recorded buprenorphine 8 mg-naloxone 2 mg 1 film sublingual TID #42 ea 09/24/22 sublingual film (Suboxone) celecoxib 200 mg capsule 200 mg PO BID #60 caps 11/06/22 ferrous sulfate 324 mg (65 mg 324 mg PO Q48H #30 tabs 11/06/22 iron) tablet,delayed release folic acid 1 mg tablet 1 mg PO DAILY #30 tabs 11/06/22 gabapentin 800 mg tablet 800 mg PO TID #90 tabs 11/06/22 thiamine mononitrate (vit B1) 100 100 mg PO DAILY #30 tabs 11/06/22 mg tablet Mental Status Exam Mental Status Exam Narrative: Pt is alert and oriented; behavior is cooperative, friendly and calm; dressed in casual attire; mood is described as good ; eye contact appropriate; Speech is normal rate, volume and prosody and not pressured; no psychomotor agitation/retardation present; thought process is organized and goal directed; Thought content is on tx; otherwise pertinent to relevant topics and without any delusional content, paranoid ideations or grandiosity; denies SI/HI. There is no evidence of perceptual disturbance. Patients insight and judgment are fair. Data Data Completed and Pending Completed studies during hospitalization [Text1]: 02/26/23 14:48 WBC 6.9 RBC 4.62 Hgb 13.9 L Hct 40.3 L MCV 87.2 MCH 30.1 MCHC 34.5 RDW 12.8 Plt Count 212 MPV 10.3 Immature Gran % (Auto) 0.3 Neut % (Auto) 61.4 Lymph % (Auto) 22.8 [place] % (Auto) 9.9 Eos % (Auto) 4.6 H Baso % (Auto) 1.0 Lymph # (Auto) 1.6 [place] # (Auto) 0.7 Eos # (Auto) 0.3 Baso # (Auto) 0.1 Abs Immat Gran (auto) 0.02 Absolute Neuts (auto) 4.2 Absolute Nucleated RBC 0.000 Nucleated RBC % (auto) 0.0 Sodium 135 Potassium 4.5 Chloride 104 Carbon Dioxide 20 L Anion Gap 16 BUN 19 H Creatinine 0.90 Estim Creat Clear Calc 119.6 Estimated GFR > 60 Random Glucose 97 Calcium 9.6 D Total Bilirubin 0.3 Direct Bilirubin 0.1 AST 12 ALT 15 Alkaline Phosphatase 84 Total Protein 7.2 Albumin 4.4 DS: Summary Hospital Course Hospital Course: Patient is a 52 year old male with hx of MDD, ETOH use d/o with multiple inpatient hospitalizations who was seen by [facility] d/t suicidal ideation with intentional overdose of Wellbutrin and Seroquel secondary to increased depression from his substance use. Per crisis report, patient was medically admitted on 02/20/2023 d/t overdose and is now medically clear. Pt reports hx of alcohol use d/o with previous withdrawal seizures. He reports drinking 2 quarts of hard liquor and a six pack of beer daily; he also relapsed on cocaine. During admission assessment, pt presents calm and cooperative. He reports feeling anxious and depressed ; pt stated, I took the overdose because I wanted to stop drinking. There is a part of me that wanted to but more of me wants to live, which is why I called 911 so fast . Patient reports he is interested in speaking to addiction services regarding antabuse and would like to get into a recovery program. He reports hx of being section 35'd which he states was not helpful d/t the environment and other patients there. Patient denies having any current outpatient psychiatric providers and would referrals for these. During hospital course, pt was continued on home medications and was placed on CIWA. DC CIWA, pt reports he is no longer having withdrawal symptoms. DC Ativan. Start home medication, Ambien 5mg PO bedtime, Ritalin 10mg PO BID. Patient would like to be start on Antabuse, however it is non-formulary in this hospital; will contact pharmacy to determine if there is a way to obtain medication;pt has hx of taking this med in past. Patient reports feeling okay today. Patient stated, I think the withdrawals are gone. I'm doing better. I hope I can get into a program. I also want to start taking Antabuse to help me stop drinking . Denies SI/HI/VH/AH. Patient reports feeling good today. Patient stated, I'm happy to have started taking Antabuse. I took it in the past so I'm aware of the risks and benefits of it . Risks/benefits reviewed with patient. He reports feeling better than first arriving. Hoping to be accepted into substance abuse program. Patient reports feeling good today. Hoping to get into program; states if he does not then he will either go to a homeless senior living or to his friends house to wait for an open bed at program. Patient reports feeling ready to go today; he reports planning on staying with his friend until hearing back from a program. Patient only received scripts for 3 days of suboxone d/t having 12 films in his belongings. He also received scripts for antabuse and ritalin d/t having multiple bottles of his other medications in his belongings. pt is aware. pt denies SI/HI/VH/AH. Time spent discussing smoking cessation with patient: 3 to 10 minutes Status at Discharge Cognitive/behavioral status at discharge: Patient was interviewed prior to discharge and found to be fully oriented and without any SI or HI. Patient has insight and demonstrates good judgment in terms of wanting to pursue treatment. Patient is not in imminent risk of harm to self or others and has a safety plan that includes presenting to the closest ER or calling 911 if feeling unsafe. Patient has been observed closely by nursing and unit staff throughout admission; patient has not engaged in any behaviors that suggest dangerousness to self or others and has demonstrated appropriate behaviors and impulse control. Functional status at discharge: independent ambulation Overall status at discharge: patient is back to baseline Time Spent with Patient Time attestation: Total time managing care of this patient today _30___ minutes. Time spent: Less than 30 minutes Discharge Plan Discharge Anticipated Discharge Date/Time: 03/04/23 12:00 Patient Disposition: Home, Self-Care Discharge Diagnosis: MDD, PTSD, Cocaine use d/o, ETOH use d/o, Opioid use d/o Referrals: Isaiah Win (Therapy) [Other] - 03/06/23 1:00 pm (IN OFFICE APPOINTMENT -Please arrive fifteen minutes early to your appointment in order to fill out necessary paperwork. ) Ruiz Greenberg (Psychiatry) [Other] - 04/02/23 2:30 pm (TELEHEALTH APPOINTMENT) Ruiz Greenberg (Psychiatry) [Other] - 05/01/23 1:00 pm (TELEHEALTH APPOINTMENT) Mag Cano ([facility]) [Other] - 03/11/23 10:00 am (IN OFFICE APPOINTMENT) Bhupinder Morales APRN [Primary Care Provider] - 03/05/23 11:30 am Discharge Medications: New disulfiram 250 mg Tablet 250 mg PO Q24H 30 Days Qty: 30 0RF methylphenidate HCl 10 mg Tablet 10 mg PO BID@0800,1500 7 Days Qty: 14 0RF Rx Instructions: Partial Fill upon patient request. Continued ferrous sulfate 324 mg (65 mg iron) Tablet,Delayed Release (Dr/Ec) 324 mg PO Q48H Qty: 30 0RF gabapentin 800 mg tablet 800 mg PO TID Qty: 90 0RF celecoxib 200 mg Capsule 200 mg PO BID Qty: 60 0RF methocarbamol 750 mg tablet 750 mg PO Q8H PRN (Reason: Pain) calcium carbonate-vitamin D3 600 mg-10 mcg (400 unit) tablet 1 tab PO DAILY sennosides [senna] 8.6 mg Tablet 8.6 mg PO BID chlorpromazine 100 mg tablet 100 mg PO Q6H PRN (Reason: Agitation) hydroxyzine pamoate 50 mg capsule 50 mg PO TID PRN (Reason: anxiety) prazosin 5 mg capsule 5 mg PO BEDTIME trazodone 100 mg tablet 100 mg PO BEDTIME PRN (Reason: insomnia) methylphenidate HCl 10 mg Tablet 10 mg PO BID quetiapine [Seroquel] 100 mg Tablet 100 mg PO TID zolpidem [Ambien] 10 mg Tablet 10 mg PO BEDTIME bupropion HCl [Wellbutrin XL] 300 mg Tablet Extended Release 24 Hr 300 mg PO QAM bupropion HCl [Wellbutrin XL] 150 mg Tablet Extended Release 24 Hr 150 mg PO QAM quetiapine [Seroquel] 50 mg Tablet 50 mg BID PRN (Reason: Panic Attack(S)) buprenorphine-naloxone [Suboxone] 8-2 mg film 1 film sublingual TID 3 Days Qty: 9 0RF Rx Instructions: [facility] Last fill 09/24/22 Discontinued multivitamin with folic acid [Tab-A-Tony] 400 mcg tablet 1 tab PO DAILY Rx Instructions: [facility] last filled 10/09/22 folic acid 1 mg Tablet 1 mg PO DAILY Qty: 30 0RF thiamine mononitrate (vit B1) 100 mg Tablet 100 mg PO DAILY Qty: 30 0RF clonazepam 0.5 mg Tablet 0.5 mg PO BID PRN (Reason: Panic Attack(S)) Discharge Orders: Discharge Order (Routine); Ordered 03/04/23 Ordered By: Jelena Limon Diet: Regular diet Activity on Discharge: As tolerated Stand Alone Forms: Patient Portal Discharge page, Community Support Care Plan Goals: Maintain mood and safe behaviors Take medications as prescribed Continue to pursue sobriety Practice coping skills Continue with outpatient providers and reach out to them as needed Health Concerns: Mood stability and behaviors Sobriety Plan of Treatment: Follow up with your PCP, psychiatric provider and other outpatient providers regarding above concerns Take medications as prescribed Assessment: Patient was interviewed prior to discharge and found to be fully oriented and without any SI or HI. Patient has insight and demonstrates good judgment in terms of wanting to pursue treatment. Patient is not in imminent risk of harm to self or others and has a safety plan that includes presenting to the closest ER or calling 911 if feeling unsafe. Patient has been observed closely by nursing and unit staff throughout admission; patient has not engaged in any behaviors that suggest dangerousness to self or others and has demonstrated appropriate behaviors and impulse control. Discharge Date/Time: 03/04/23 11:55
== END 2023-03-04 11:55 | disposition home or self-care (01) | DRG 751 ==
PROVIDERS: Admitting Provider Psychiatry & Neurology Psychiatry; PCP Nurse Practitioner; Responsible Provider Registered Nurse; Visit Provider Psychiatry & Neurology Psychiatry
DX: F33.2 Major depressive disorder, recurrent severe without psychotic features (principal); F11.20 Opioid dependence, uncomplicated; F17.210 Nicotine dependence, cigarettes, uncomplicated; F43.12 Post-traumatic stress disorder, chronic; F14.20 Cocaine dependence, uncomplicated; I10 Essential (primary) hypertension; M25.551 Pain in right hip; G89.29 Other chronic pain; Z91.51 Personal history of suicidal behavior; Z71.6 Tobacco abuse counseling; Z79.899 Other long term (current) drug therapy
CPT/HCPCS: 36415; 80053; 82248; 85025

== ENCOUNTER → 2023-02-24 21:24 | Outpatient (BNV) | payer OTHER, SELFPAY | PROVIDERS: Admitting Provider Psychiatry & Neurology Psychiatry; PCP Nurse Practitioner; Responsible Provider Registered Nurse; Visit Provider Psychiatry & Neurology Psychiatry | DX: F33.2 Major depressive disorder, recurrent severe without psychotic features (principal); F14.20 Cocaine dependence, uncomplicated; F43.12 Post-traumatic stress disorder, chronic; F10.90 Alcohol use, unspecified, uncomplicated | CPT/HCPCS: 99231; 99232; 99233; 99499 ==

== ENCOUNTER → 2023-02-24 21:24 | Outpatient (BNV) | payer MEDICAID, SELFPAY | PROVIDERS: Admitting Provider Psychiatry & Neurology Psychiatry; PCP Nurse Practitioner; Responsible Provider Registered Nurse; Visit Provider Student in an Organized Health Care Education/Training Program | DX: Z00.8 Encounter for other general examination (principal) | CPT/HCPCS: 99222 ==

== ENCOUNTER 2023-03-06 01:01 | Inpatient (IN) | payer OTHER, SELFPAY ==
[2023-03-06 01:04] VITALS: BP 143/70; PULSE 101; RESP 20; TEMP 36.8; O2SAT 95; BMI 30.3
[2023-03-06 02:04] LABS: MANUAL DIFF FLAG NO
[2023-03-06 02:05] LABS: Basophils Absolute Auto 0.1 X10*3/uL (0.0-0.2); Basophils Percent Auto 0.7 % (0-2); Eosinophils Absolute Auto 0.1 X10*3/uL (0.0-0.4); Eosinophils Percent Auto 0.5 % (0-4); Hematocrit 39.3 % (42.0-52.0); Hemoglobin 13.5 g/dl (14.0-18.0); Imm Gran Abs Auto 0.04 X10*3/uL (0.00-0.03); Imm Gran Pct Auto 0.4 % (0.0-0.4); Lymphocytes Absolute Auto 1.5 X10*3/uL (1.2-4.9); Lymphocytes Percent Auto 14.1 % (20-40); Mean Corpuscular HGB Conc 34.4 g/dl (31.0-36.0); Mean Corpuscular Hemoglobin 29.8 pg (27.0-33.0); Mean Corpuscular Volume 86.8 fL (80.0-98.0); Mean Platelet Volume 9.5 fL (9.4-12.4); Monocytes Absolute Auto 0.8 X10*3/uL (0.1-1.2); Neutrophils Absolute Auto 7.9 x10*3/uL (2.0-8.3); Neutrophils Percent Auto 76.3 % (45-73); Platelet Count 257 X10*3/uL (160-400); Red Blood Count 4.53 X10*6/uL (4.60-5.80); White Blood Count 10.4 X10*3/uL (4.8-10.8)
[2023-03-06 02:16] LABS: Appearance Urine Turbid; Color Urine Yellow; Glucose Urine UA Negative (Negative); Leukocyte Esterase Urine Negative (Negative); Nitrite Urine Negative (Negative); Specific Gravity - Urine >= 1.030 (1.005-1.025); Urine Blood Negative (Negative); Urine Ketones Negative (Negative); Urine Protein Negative (Neg-Trace)
[2023-03-06 02:19] LABS: Amphetamine Screen Urine Not Detected (Not Detect); Barbiturates, Urine Not Detected (Not Detect); Benzodiazepines Screen Urine Not Detected (Not Detect); Cannabinoid Screen Urine Not Detected (Not Detect); Cocaine Screen Urine POSITIVE (Not Detect); Fentanyl, urine Not Detected (Not Detect); Opiate Screen Urine Not Detected (Not Detect); Phencyclidine Screen Urine Not Detected (Not Detect)
[2023-03-06 02:30] LABS: Alanine Aminotransferase 25 U/L (0-40); Albumin Level 4.5 g/dL (3.5-5.0); Alkaline Phosphatase 78 U/L (39-117); Anion Gap 16 (12-20); Aspartate Amino Transferase 36 U/L (5-37); Bilirubin Total 0.5 mg/dL (0.0-1.0); Blood Urea Nitrogen 16 mg/dL (9-16); Calcium 9.1 mg/dL (8.4-10.2); Carbon Dioxide 23 mmol/L (22-29); Chloride 106 mmol/L (96-108); Creatinine Clr Calc Pharmacy 115.3; Estimated Glomerular Filt Rate > 60; Ethanol < 10 mg/dL; Glucose Random 112 mg/dL (60-115); Potassium 3.6 mmol/L (3.3-5.1); Sodium 141 mmol/L (135-145); Total Protein 7.1 g/dL (6.5-8.0)
--- NOTE | 2023-03-06 06:41 | ED.PSYCH ---
HPI - Psych General Chief Complaint: Psychiatric Symptoms Stated Complaint: thoughts of suicide Time Seen by Provider: 03/06/23 06:29 Source: patient Mode of arrival: ambulatory Limitations: no limitations History of Present Illness HPI Narrative: 52yo male with PMH of MDD, PTSH, ETOH use and opioid use d/o presents to the ED by ambulation for SI. He was admitted [place] [facility] [place] [facility] on 02/25/23 for SI w intentional OD of wellbutrin and Seroquel and was discharged wo SI or HI on 03/04/23 with scripts for antabuse, ritalin, and suboxone. Patient reports he was feeling better when last discharged but last night he used alcohol and cocaine and started having suicidal thoughts again w plan of intentional OD with bupropion. He did not lease picker new medications prescribed at his last discharge. This morning he is feeling depressed and anxious w continuing suicidal thoughts but denies hallucinations or thoughts of harming others. Denies withdrawal sxs. Notes he wants to stop drinking and get into a program. MD complaint: suicidal ideation Onset (ago): hour(s) Duration: constant History of same: Yes Exacerbating factors: alcohol and drug use Context: recent alcohol abuse and recent drug abuse Associated psychiatric symptoms: depression and suicidal ideation Associated symptoms: denies other symptoms If self harm: admits thoughts of self harm Related Data Home Medications Medication Instructions Recorded Confirmed buprenorphine 8 mg-naloxone 2 mg 1 film sublingual 03/06/23 03/06/23 sublingual film (Suboxone) TID@0800,1200,1700 bupropion HCl 150 mg 24 hr tablet, 450 mg PO DAILY 03/06/23 03/06/23 extended release calcium carbonate 600 mg-vitamin 1 tab PO DAILY 03/06/23 03/06/23 D3 10 mcg (400 unit) tablet celecoxib 200 mg capsule (Celebrex) 200 mg PO BID 03/06/23 03/06/23 chlorpromazine 100 mg tablet 100 mg PO Q6H PRN Agitation 03/06/23 03/06/23 disulfiram 250 mg tablet 250 mg PO DAILY 03/06/23 03/06/23 ferrous sulfate 324 mg (65 mg 324 mg PO Q48H 03/06/23 03/06/23 iron) tablet,delayed release gabapentin 800 mg tablet 800 mg PO TID 03/06/23 03/06/23 hydroxyzine pamoate 50 mg capsule 50 mg PO TID PRN Anxiety 03/06/23 03/06/23 methocarbamol 750 mg tablet 750 mg PO Q8H PRN Pain 03/06/23 03/06/23 methylphenidate HCl 10 mg tablet 10 mg PO BID@0800,1500 03/06/23 03/06/23 prazosin 5 mg capsule 5 mg PO BEDTIME 03/06/23 03/06/23 quetiapine 100 mg tablet 100 mg PO TID 03/06/23 03/06/23 quetiapine 50 mg tablet 50 mg PO BID PRN Panic Attack(S) 03/06/23 03/06/23 sennosides 8.6 mg tablet (senna) 8.6 mg PO BID 03/06/23 03/06/23 trazodone 50 mg tablet 100 mg PO BEDTIME PRN Insomnia 03/06/23 03/06/23 zolpidem 5 mg tablet 10 mg PO BEDTIME PRN Insomnia 03/06/23 03/06/23 Allergies Allergy/AdvReac Type Severity Reaction Status Date / Time ketamine AdvReac Severe Agitated Verified 03/06/23 01:04 phenobarbital AdvReac Vomiting Verified 03/06/23 01:04 Review of Systems Review of Systems: Yes all other systems are reviewed and are negative Psychiatric: Psychiatric: Reports anxiety, Reports depression, Reports hopelessness, Denies panic attacks, Denies visual hallucinations, Denies tactile hallucinations, Denies homicidal ideation and Reports suicidal ideation PMFSH Past Medical History Medical History Incidental pulmonary nodule Hepatic steatosis Alcohol use disorder Hepatitis C antibody positive in blood Alcohol dependence EtOH dependence Anxiety Chronic post-traumatic stress disorder (PTSD) MDD (major depressive disorder), recurrent episode, severe Depression Surgical History History of mandibular surgery Family History Family History Mother Diabetes mellitus Father Leukemia Social History Social History Household Members: None Household Members Other:: [employer] [facility] Housing: Homeless Housing Other:: [employer] [facility] Do you presently have visiting nurse or other home services: No Unable to assess alcohol history related to: Unknown Alcohol intake: current Alcohol intake frequency: holidays/special occasions only Alcohol type: beer and hard liquor Patient Tobacco Use Status: Current everyday Tobacco user Tobacco use type: Cigarette Cigarette Packs Per Day: 0.5 Cigarettes Per Day: 0.2 Years Smoked: ''many'' e-Cigarette/Vaping Use: Currently Using Second Hand Smoke Exposure: No Substance Use Type: Crack/Cocaine Advance Directives: No Advance Directives Information Provided: No Healthcare Proxy: No Guardian: No service: No Current occupational status: unemployed Sexual orientation: Straight/Heterosexual Physical Exam Vital Signs: Vital Signs: Last Vital Signs Temp 97.9 F 03/06/23 09:08 Pulse 72 03/06/23 09:08 Resp 18 03/06/23 13:59 BP 142/79 H 03/06/23 09:08 Pulse Ox 99 03/06/23 09:08 O2 Del Method Room Air 03/06/23 09:08 BMI result Body Mass Index 30.3 Appearance: Alert. Oriented X3. No acute distress. Head: normocephalic, atraumatic. Eyes: Pupils equal, round and reactive to light. ENT: Pharynx normal. No tonsillar swelling or exudate. Neck: Normal inspection. Neck supple. CVS: Normal heart rate and rhythm. Pulses normal. Respiratory: No respiratory distress. Breath sounds normal. Abdomen: Soft and nontender. +BS x4 Skin: Skin warm and dry. Normal skin color. Normal skin turgor. No rashes. Extremities: No lower extremity edema. No joint swelling. Neuro/psych: Oriented X 3. No motor deficit. No sensory deficit. CN II-XII intact. Normal speech and cognition. Pleasant/cooperative w depressed affect. +SI w/ plan to OD Course Reevaluation(s) Reevaluation #1: Physician observation started at 11:03. Patient placed in physician observation because patient is awaiting CARE team evaluation for the possible need of inpatient psych admission. At the time observation was started patient's vital signs were stable. Patient is alert and oriented. Neuro exam is non-focal. CV: RRR and lungs are clear. Will continue to monitor. Time: 11:03 Reevaluation #2: plan is for inpatient psych admission. will continue to monitor. Time: 15:10 Medications Administered Generic Name Dose Route Start Last Admin Trade Name Nanda PRN Reason Stop Dose Admin Buprenorphine/Naloxone 1 film 03/06/23 12:00 03/06/23 11:09 Buprenorphine/Naloxone 8/2 Mg Film SUBLINGUAL 1 film TID@0800,1200,1700 FOUZIA Administration Bupropion HCl 450 mg 03/06/23 10:30 03/06/23 11:09 Bupropion Hcl Xl 150 Mg Tab.Er.24h PO 450 mg DAILY FOUZIA Administration Celecoxib 200 mg 03/06/23 10:30 03/06/23 11:35 Celecoxib 200 Mg Capsule PO 200 mg BID FOUZIA Administration Ferrous Sulfate 324 mg 03/06/23 10:30 03/06/23 11:09 Ferrous Sulfate 324 Mg Tablet. PO 324 mg Q48H FOUZIA Administration Gabapentin 800 mg 03/06/23 10:30 03/06/23 11:09 Gabapentin 400 Mg Capsule PO 800 mg TID FOUZIA Administration Quetiapine Fumarate 100 mg 03/06/23 10:30 03/06/23 11:09 Quetiapine Fumarate 100 Mg Tablet PO 100 mg TID FOUZIA Administration Senna 8.6 mg 03/06/23 10:30 03/06/23 11:18 Sennosides 8.6 Mg Tablet PO 8.6 mg BID FOUZIA Administration Medical Decision Making Medical Decision Making [facility] Narrative: 52yo male with PMH of MDD, PTSH, ETOH use and opioid use d/o presents to the ED by ambulation for SI after using alcohol and cocaine last night. He was admitted [place] [facility] [place] on 02/25/23 for SI w intentional OD of wellbutrin and Seroquel and was discharged wo SI or HI on 03/04/23. Vitals stable upon arrival. Labs normal. On PE patient was calm/cooperative with depressed affect. Patient is being monitored by nursing staff and is awaiting care team consult. Differential Diagnosis Differential Diagnoses: The differential diagnosis associated with the presentation includes MDD, PTSD, ETOH use d/o, Cocaine use d/o Admission/Observation Consideration of admission/observation: Escalation of care including admission/observation considered Consult Healthcare Provider Management of the patient was discussed with: Behavioral Health Provider Lab Data [facility] Lab Attestation statement: I reviewed the patient's lab results. 03/06/23 01:58 03/06/23 01:58 Labs: Lab Results 03/06/23 03/06/23 03/06/23 Range/Units 01:58 01:59 12:48 WBC 10.4 (4.8-10.8) X10*3/uL RBC 4.53 L (4.60-5.80) X10*6/uL Hgb 13.5 L (14.0-18.0) g/dl Hct 39.3 L (42.0-52.0) % MCV 86.8 (80.0-98.0) fL MCH 29.8 (27.0-33.0) pg MCHC 34.4 (31.0-36.0) g/dl RDW 13.0 (11.0-16.0) % Plt Count 257 (160-400) X10*3/uL MPV 9.5 (9.4-12.4) fL Immature Gran % (Auto) 0.4 (0.0-0.4) % Neut % (Auto) 76.3 H (45-73) % Lymph % (Auto) 14.1 L (20-40) % [place] % (Auto) 8.0 (2-11) % Eos % (Auto) 0.5 (0-4) % Baso % (Auto) 0.7 (0-2) % Lymph # (Auto) 1.5 (1.2-4.9) X10*3/uL [place] # (Auto) 0.8 (0.1-1.2) X10*3/uL Eos # (Auto) 0.1 (0.0-0.4) X10*3/uL Baso # (Auto) 0.1 (0.0-0.2) X10*3/uL Abs Immat Gran (auto) 0.04 H (0.00-0.03) X10*3/uL Absolute Neuts (auto) 7.9 (2.0-8.3) x10*3/uL Absolute Nucleated RBC 0.000 (0.0-0.012) X10*3/uL Nucleated RBC % (auto) 0.0 (0.0-0.2) /100WBC Sodium 141 (135-145) mmol/L Potassium 3.6 (3.3-5.1) mmol/L Chloride 106 (96-108) mmol/L Carbon Dioxide 23 (22-29) mmol/L Anion Gap 16 (12-20) BUN 16 (9-16) mg/dL Creatinine 0.95 (0.5-1.4) mg/dL Estim Creat Clear Calc 115.3 Estimated GFR > 60 Random Glucose 112 (60-115) mg/dL Calcium 9.1 (8.4-10.2) mg/dL Total Bilirubin 0.5 (0.0-1.0) mg/dL AST 36 (5-37) U/L ALT 25 (0-40) U/L Alkaline Phosphatase 78 (39-117) U/L Total Protein 7.1 (6.5-8.0) g/dL Albumin 4.5 (3.5-5.0) g/dL Urine Color Yellow Urine Appearance Turbid Urine pH 6.0 (5.0-9.0) Ur Specific [place] >= 1.030 H (1.005-1.025) Urine Protein Negative (Neg-Trace) mg/dL Urine Glucose (UA) Negative (Negative) mg/dL Urine Ketones Negative (Negative) mg/dL Urine Blood Negative (Negative) Urine Nitrite Negative (Negative) Ur Leukocyte Esterase Negative (Negative) Urine Opiates Screen Not Detected (Not Detect) Urine Fentanyl Screen Not Detected (Not Detect) Ur Barbiturates Screen Not Detected (Not Detect) Ur Phencyclidine Scrn Not Detected (Not Detect) Ur Amphetamines Screen Not Detected (Not Detect) U Benzodiazepines Scrn Not Detected (Not Detect) Urine Cocaine Screen POSITIVE H (Not Detect) U Marijuana (THC) Screen Not Detected (Not Detect) Ethyl Alcohol < 10 mg/dL COVID-19 (LINK) Negative (Negative) COVID-19 Clin Com See Note Independent Interpretation I performed an independent interpretation of an: EKG Interpretation: ekg w/ normal sinus rhythm w/ sinus arrythmia, hr 67 bpm, normal QTC, no st segment elevations or depressions Independent Historian Clinical information obtained from an independent historian. History obtained from or confirmed by: EMS External Record Review External record reviewed: Inpatient record, Outpatient record, Prior outpatient labs and Prior outpatient radiology Prescription Management I considered prescription management with: Other (antipsychotic) Chronic Conditions Patient?s care impacted by: Other (PTSD, depression) Social Determinants Patient?s care significantly limited by Social Determinants of Health including: Inadequate housing, Problems related to primary support group, Unemployment and Other Social Determinant of Health Discharge Plan Discharge Clinical Impression: Suicidal ideation, Chronic post-traumatic stress disorder (PTSD), MDD (major depressive disorder), recurrent episode, severe Patient Disposition: Still a Patient Prescriptions: No Action chlorpromazine 100 mg tablet 100 mg PO Q6H PRN (Reason: Agitation) prazosin 5 mg capsule 5 mg PO BEDTIME calcium carbonate-vitamin D3 600 mg-10 mcg (400 unit) tablet 1 tab PO DAILY bupropion HCl 150 mg tablet extended release 24 hr 450 mg PO DAILY celecoxib [Celebrex] 200 mg Capsule 200 mg PO BID buprenorphine-naloxone [Suboxone] 8-2 mg film 1 film sublingual TID@0800,1200,1700 trazodone 50 mg tablet 100 mg PO BEDTIME PRN (Reason: Insomnia) gabapentin 800 mg tablet 800 mg PO TID zolpidem 5 mg tablet 10 mg PO BEDTIME PRN (Reason: Insomnia) methylphenidate HCl 10 mg Tablet 10 mg PO BID@0800,1500 disulfiram 250 mg Tablet 250 mg PO DAILY quetiapine 100 mg Tablet 100 mg PO TID quetiapine 50 mg Tablet 50 mg PO BID PRN (Reason: Panic Attack(S)) ferrous sulfate 324 mg (65 mg iron) Tablet,Delayed Release (Dr/Ec) 324 mg PO Q48H sennosides [senna] 8.6 mg Tablet 8.6 mg PO BID hydroxyzine pamoate 50 mg Capsule 50 mg PO TID PRN (Reason: Anxiety) methocarbamol 750 mg Tablet 750 mg PO Q8H PRN (Reason: Pain) Interventions: [place]-Suicide Risk Severity Scale Last Done: 03/06/23 13:59
--- NOTE | 2023-03-06 07:15 | PC.NURSE ---
Patient slept through the night, no distress observed/reported, behavior non concerning, care consult ordered/pending evaluation, med rec completed/pending pharmacy review/pending provider's approval, VSS, labs completed/resulted, VSS, will continue to monitor.
--- NOTE | 2023-03-06 07:45 | PHA.MEDREC ---
Pharmacy Consult ? Medication Reconciliation Pharmacy has completed the medication reconciliation.pharmacy has reviewed med rec done by lisset. additions made to home med list using list from discharge from this facility on 03/04/23.
[2023-03-06 09:08] VITALS: BP 142/79; PULSE 72; RESP 16; TEMP 36.6; O2SAT 99
[2023-03-06] MEDS: Gabapentin 400 MG CAPSULE 800 MG PO ×3 (11:09→20:36)
[2023-03-06] MEDS: Buprenorphine/Naloxone 8/2 mg FILM 1 FILM SUBLINGUAL ×2 (11:09→17:09)
[2023-03-06] MEDS: Ferrous Sulfate 324 MG TABLET.DR PO (11:09)
[2023-03-06] MEDS: buPROPion HCl XL 150 MG TAB.ER.24H 450 MG PO (11:09)
[2023-03-06] MEDS: QUEtiapine Fumarate 100 MG TABLET PO ×3 (11:09→20:37)
[2023-03-06] MEDS: Sennosides 8.6 MG TABLET PO ×2 (11:18→20:36)
[2023-03-06] MEDS: Celecoxib 200 MG CAPSULE PO ×2 (11:35→20:36)
--- NOTE | 2023-03-06 12:41 | ECG_ITS ---
Test Reason : QT INTERVAL Blood Pressure : / mmHG Vent. Rate : 067 BPM Atrial Rate : 067 BPM P-R Int : 152 ms QRS Dur : 096 ms QT Int : 432 ms P-R-T Axes : 056 023 033 degrees QTc Int : 456 ms Normal sinus rhythm with sinus arrhythmia RSR' or QR pattern in V1 suggests right ventricular conduction delay Otherwise normal ECG When compared with ECG of 30-OCT-2022 10:30, No significant change was found Referred By: Epifanio Saavedra Electronically Signed By:JESSICA PICKERING MD
--- NOTE | 2023-03-06 12:46 | MHC.RECOVRN ---
Met with pt in 1 after pt presented to ED for SI and is subsequently being admitted to . Pt familiar with t/w from previous consults. Pt states I only drank once, last night, but I can't do this anymore. Pt has expressed interest in disulfiram in the past, ED provider has ordered the medication. Discussed [facility] for follow up, pt agreeable to appt closer to dc. Pt denies questions or concerns at this time.
[2023-03-06 13:16] LABS: COVID-19 Test Negative (Negative); IDNOW Serial# 9DB6401D
--- NOTE | 2023-03-06 13:33 | PHA.MEDREC ---
Pharmacy Consult ? Medication Reconciliation Pharmacy has reviewed the medication reconciliation completed by Mk.
[2023-03-06 13:59] VITALS: RESP 18
--- NOTE | 2023-03-06 14:03 | PC.NURSE ---
Cam has been in his room resting for most of this shift. Pleasant on approach with no behavioral concerns. Cam requested his Suboxone which he reports he hasn't taken since his D/C from upstairs on 03/04. Medication ordered and given. Covid test and EKG done for anticipated admission to the unit. Cam reports he feels safe while on the unit.
[2023-03-06 20:14] VITALS: BP 137/83; PULSE 74; RESP 16; TEMP 36.1; O2SAT 96
[2023-03-06] MEDS: hydrOXYzine HCL 50 MG TABLET PO (20:36)
[2023-03-06] MEDS: Prazosin HCL 5 MG CAPSULE PO (20:36)
[2023-03-06] MEDS: Zolpidem Tartrate 5 MG TABLET PO (20:37)
[2023-03-06] MEDS: traZODone HCL 100 MG TABLET PO (20:42)
--- NOTE | 2023-03-07 00:02 | PC.ADMIT ---
PT is a 52 year old latvian speaking male that arrived on this unit at 20:00 from the [facility] and was placed on 15 minute safety checks. Legla status: CV. PT is well known to [facility] and this unit, and was mostly recently discharged from two days ago. PT reports not feeling ready or discharge and immediately began using crack cocaine and drank several nips. PT reports he felt he was not ready to be discharged and thus immediately relapsed. COVID NEG TOX screen + for cocaine. PT reports being currently homeless and no current psych providers. PT has a long hx of psychiatric admissions. COVID NEG. All legals signed, tx plan completed, med rec completed, and admission orders obtained. Promote safety and initiate plan of care. Skin check completed by Nikolai Soni RN. No acute findings.
[2023-03-07] MEDS: Sennosides 8.6 MG TABLET PO ×2 (08:10→20:49)
[2023-03-07] MEDS: Celecoxib 200 MG CAPSULE PO ×2 (08:10→20:50)
[2023-03-07] MEDS: Methylphenidate HCl 10 MG TABLET PO ×2 (08:10→14:06)
[2023-03-07] MEDS: Calcium + Vitamin D 250 MG TABLET 500 MG PO (08:10)
[2023-03-07] MEDS: Gabapentin 400 MG CAPSULE 800 MG PO ×3 (08:11→17:06)
[2023-03-07] MEDS: Buprenorphine/Naloxone 8/2 mg FILM 1 FILM SUBLINGUAL ×3 (08:11→17:05)
[2023-03-07] MEDS: QUEtiapine Fumarate 100 MG TABLET PO ×3 (08:11→20:51)
[2023-03-07] MEDS: buPROPion HCl XL 150 MG TAB.ER.24H 450 MG PO (08:11)
[2023-03-07 08:20] VITALS: BP 149/90; PULSE 69; RESP 16; TEMP 36.4; O2SAT 98
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
[2023-03-07] MEDS: Nicotine 14 MG PATCH.TD24 TRANSDERMA (17:04)
[2023-03-07 18:00] VITALS: BP 174/85; PULSE 70; TEMP 36.7; O2SAT 99
--- NOTE | 2023-03-07 19:05 | PC.NURSE ---
Patient is interested in Seroquel 200 mg po at HS as well as Seroquel 100 mg po tid prn. He wanted provider here to know.
[2023-03-07 20:44] VITALS: BP 142/77; PULSE 68
[2023-03-07] MEDS: QUEtiapine Fumarate 50 MG TABLET PO (20:49)
[2023-03-07] MEDS: traZODone HCL 100 MG TABLET PO (20:50)
[2023-03-07] MEDS: Prazosin HCL 5 MG CAPSULE PO (20:51)
[2023-03-07] MEDS: Zolpidem Tartrate 5 MG TABLET PO (20:53)
[2023-03-08 08:16] VITALS: BP 125/66; PULSE 65; RESP 16; TEMP 36.7; O2SAT 98
[2023-03-08] MEDS: Methylphenidate HCl 10 MG TABLET PO ×2 (08:27→14:05)
[2023-03-08] MEDS: Sennosides 8.6 MG TABLET PO ×2 (08:27→20:35)
[2023-03-08] MEDS: Celecoxib 200 MG CAPSULE PO ×2 (08:27→20:35)
[2023-03-08] MEDS: buPROPion HCl XL 150 MG TAB.ER.24H 450 MG PO (08:27)
[2023-03-08] MEDS: QUEtiapine Fumarate 100 MG TABLET PO ×3 (08:27→20:35)
[2023-03-08] MEDS: Gabapentin 400 MG CAPSULE 800 MG PO ×3 (08:27→17:09)
[2023-03-08] MEDS: Calcium + Vitamin D 250 MG TABLET 500 MG PO (08:27)
[2023-03-08] MEDS: Buprenorphine/Naloxone 8/2 mg FILM 1 FILM SUBLINGUAL ×3 (08:27→17:09)
[2023-03-08] MEDS: Ferrous Sulfate 324 MG TABLET.DR PO (12:13)
[2023-03-08] MEDS: Nicotine 14 MG PATCH.TD24 TRANSDERMA (12:14)
[2023-03-08] MEDS: QUEtiapine Fumarate 50 MG TABLET PO (17:09)
--- NOTE | 2023-03-08 17:57 | HO.PSYCHPN ---
Subjective Subjective Date of Service: 03/08/23 Reason For Visit: SI Interim History: pt reports depressed mood, worried about housing; reports continued SI with plan to overdose on meds Medication Compliance: Yes Side effects from medications: No Attending Groups: Yes Review of Systems Acute medical concerns: No Medical Review of Systems: unchanged Review of Systems Review of Systems Yes all other systems are reviewed and are negative Constitutional: Reports as per HPI Eyes: Reports as per HPI Reports as per HPI Cardiovascular: Reports as per HPI Respiratory: Reports as per HPI Gastrointestinal: Reports as per HPI Genitourinary: Reports as per HPI Musculoskeletal: Reports as per HPI Skin/Breast: Reports as per HPI Reports as per HPI Psychiatric: Reports as per HPI, Reports anxiety, Reports depression, Reports hopelessness, Denies panic attacks, Denies visual hallucinations, Denies tactile hallucinations, Denies homicidal ideation and Reports suicidal ideation Endocrine: Reports as per HPI Hematologic/Lymphatic: Reports as per HPI Allergic/Immunologic: Reports as per HPI Mental Status Exam Mental Status Exam Narrative: Pt is alert and oriented; behavior is cooperative, friendly and calm; dressed in casual attire; mood is described as depressed; eye contact appropriate; Speech is normal rate, volume and prosody and not pressured; no psychomotor agitation/retardation present; thought process is organized and goal directed; Thought content is on tx; otherwise pertinent to relevant topics and without any delusional content, paranoid ideation or grandiosity; denies HI. Report continued suicidal ideation with plan to OD on medications. There is no evidence of perceptual disturbance. Patients insight and judgment are poor. Diagnostics Vital Signs (24Hr): Vital Signs - 24 hr 03/07/23 18:00 03/07/23 20:44 03/08/23 08:16 Temperature 98.0 F 98.0 F Pulse Rate 70 68 65 Respiratory Rate 16 Blood Pressure 174/85 H 142/77 H 125/66 Pulse Oximetry 99 98 Oxygen Delivery Method Room Air Room Air BMI result Body Mass Index 30.3 Labs 03/06/23 01:58 03/06/23 01:58 Medications Medications Current Medications Acetaminophen (Acetaminophen 325 Mg Tablet) 650 mg PO Q6H PRN PRN Reason: Headache/Pain Mild Scale (1-3) Al Hydroxide/Mg Hydroxide (Magnesium Hydrox/Alum Hydrox 30 Ml Oral.Susp) 30 ml PO Q6H PRN PRN Reason: Heartburn/Nausea Buprenorphine/Naloxone (Buprenorphine/Naloxone 8/2 Mg Film) 1 film SUBLINGUAL TID@0800,1200,1700 [facility] Last Admin: 03/08/23 17:09 Dose: 1 film Bupropion HCl (Bupropion Hcl Xl 150 Mg Tab.Er.24h) 450 mg PO DAILY [facility] Last Admin: 03/08/23 08:27 Dose: 450 mg Calcium Carbonate/Cholecalciferol (Calcium + Vitamin D 250 Mg Tablet) 500 mg PO DAILY [facility] Last Admin: 03/08/23 08:27 Dose: 500 mg Celecoxib (Celecoxib 200 Mg Capsule) 200 mg PO BID [facility] Last Admin: 03/08/23 08:27 Dose: 200 mg Chlorpromazine HCl (Chlorpromazine Hcl 100 Mg Tablet) 100 mg PO Q6H PRN PRN Reason: Agitation Disulfiram (Disulfiram 250 Mg Tablet) 250 mg PO DAILY [facility] Last Admin: 03/08/23 08:28 Dose: Not Given Ferrous Sulfate (Ferrous Sulfate 324 Mg Tablet.Dr) 324 mg PO Q48H [facility] Last Admin: 03/08/23 12:13 Dose: 324 mg Gabapentin (Gabapentin 400 Mg Capsule) 800 mg PO TID@0800,1200,1700 [facility] Last Admin: 03/08/23 17:09 Dose: 800 mg Hydroxyzine HCl (Hydroxyzine Hcl 50 Mg Tablet) 50 mg PO TID PRN PRN Reason: Anxiety Last Admin: 03/06/23 20:36 Dose: 50 mg Hydroxyzine HCl (Hydroxyzine Hcl 25 Mg Tablet) 25 mg PO Q6H PRN PRN Reason: Anxiety Magnesium Hydroxide (Milk Of Magnesia 30 Ml Oral.Susp) 30 ml PO DAILY PRN PRN Reason: Constipation Methylphenidate HCl (Methylphenidate Hcl 10 Mg Tablet) 10 mg PO BID@0800,1500 [facility] Last Admin: 03/08/23 14:05 Dose: 10 mg Nicotine (Nicotine 14 Mg Patch.Td24) 14 mg TRANSDERMA DAILY [facility] Last Admin: 03/08/23 12:14 Dose: 14 mg Nicotine Polacrilex (Nicotine Polacrilex 2 Mg Gum) 4 mg BUCCAL Q2H PRN PRN Reason: Nicotine Cravings Prazosin HCl (Prazosin Hcl 5 Mg Capsule) 5 mg PO BEDTIME [facility]; Protocol Last Admin: 03/07/23 20:51 Dose: 5 mg Quetiapine Fumarate (Quetiapine Fumarate 50 Mg Tablet) 50 mg PO BID PRN PRN Reason: Panic Attack(S) Last Admin: 03/08/23 17:09 Dose: 50 mg Quetiapine Fumarate (Quetiapine Fumarate 100 Mg Tablet) 100 mg PO TID [facility] Last Admin: 03/08/23 14:05 Dose: 100 mg Senna (Sennosides 8.6 Mg Tablet) 8.6 mg PO BID [facility] Last Admin: 03/08/23 08:27 Dose: 8.6 mg Trazodone HCl (Trazodone Hcl 100 Mg Tablet) 100 mg PO BEDTIME PRN PRN Reason: Insomnia Last Admin: 03/07/23 20:50 Dose: 100 mg Trazodone HCl (Trazodone Hcl 50 Mg Tablet) 50 mg PO BEDTIME MRX1 PRN PRN Reason: Insomnia Zolpidem Tartrate (Zolpidem Tartrate 5 Mg Tablet) 5 mg PO BEDTIME PRN PRN Reason: Insomnia Last Admin: 03/07/23 20:53 Dose: 5 mg Allergies Allergies Allergy/AdvReac Type Severity Reaction Status Date / Time ketamine AdvReac Severe Agitated Verified 03/06/23 01:04 phenobarbital AdvReac Vomiting Verified 03/06/23 01:04 Assessment & Plan Assessment & Plan (1) MDD (major depressive disorder), recurrent episode, severe: Status: Acute Code(s): F33.2 - Major depressive disorder, recurrent severe without psychotic features (2) Chronic post-traumatic stress disorder (PTSD): Status: Acute Code(s): F43.12 - Post-traumatic stress disorder, chronic (3) Alcohol use disorder: Status: Chronic (4) Opioid use disorder: Status: Chronic Code(s): F11.99 - Opioid use, unspecified with unspecified opioid-induced disorder (5) Cocaine use disorder, moderate, dependence: Status: Acute Code(s): F14.20 - Cocaine dependence, uncomplicated Plan Patient is a 52 year old male with hx of MDD, ETOH use d/o, cocaine use d/o with multiple inpatient hospitalizations, most recently discharged from on 03/04/23, who self presented to [facility] ER with suicidal ideation with plan to OD on medication secondary to homelessness and substance abuse. Plan: CV 15 minute safety checks Continue home medications Referral to treatment program EVALUATE FOR POTENTIAL SEC 35 03/08 continue above treatment plan Patient educated on: diagnosis, medication risk/benefits, substance abuse and therapeutic strategies Informed Consent: understands and further education needed Reason for continued inpatient stay Substantial Risk for: harm to self, inability to function and rapid decompensation Time Spent With Patient Time: Total time managing care of this patient today ____ minutes.
[2023-03-08 20:30] VITALS: BP 134/70; PULSE 84; RESP 16; TEMP 36.9; O2SAT 98
[2023-03-08] MEDS: traZODone HCL 50 MG TABLET PO (20:35)
[2023-03-08] MEDS: Zolpidem Tartrate 5 MG TABLET PO (20:35)
[2023-03-08] MEDS: Prazosin HCL 5 MG CAPSULE PO (20:35)
[2023-03-09 08:03] VITALS: BP 150/80; PULSE 55; RESP 16; TEMP 36.1; O2SAT 98
[2023-03-09] MEDS: Sennosides 8.6 MG TABLET PO ×2 (08:27→20:19)
[2023-03-09] MEDS: Calcium + Vitamin D 250 MG TABLET 500 MG PO (08:27)
[2023-03-09] MEDS: buPROPion HCl XL 150 MG TAB.ER.24H 450 MG PO (08:27)
[2023-03-09] MEDS: Celecoxib 200 MG CAPSULE PO ×2 (08:27→20:18)
[2023-03-09] MEDS: Methylphenidate HCl 10 MG TABLET PO ×2 (08:27→14:40)
[2023-03-09] MEDS: QUEtiapine Fumarate 100 MG TABLET PO ×3 (08:27→20:18)
[2023-03-09] MEDS: Gabapentin 400 MG CAPSULE 800 MG PO ×3 (08:27→17:08)
[2023-03-09] MEDS: Buprenorphine/Naloxone 8/2 mg FILM 1 FILM SUBLINGUAL ×3 (08:28→17:09)
--- NOTE | 2023-03-09 10:40 | P.PNPSI_ITS ---
Subjective Subjective Date of Service: 03/09/23 Reason For Visit: SI Subjective Notes: Conditional Voluntary Interim History: pt reports depressed mood, anxiety and worried about housing; reports continued SI with plan to overdose on meds; wants to go to [facility] substance abuse [facility] program Medication Compliance: Yes Side effects from medications: No Attending Groups: Intermittent Review of Systems Acute medical concerns: No Medical Review of Systems: unchanged Review of Systems Review of Systems Yes all other systems are reviewed and are negative Constitutional: Reports as per HPI Eyes: Reports as per HPI Reports as per HPI Cardiovascular: Reports as per HPI Respiratory: Reports as per HPI Gastrointestinal: Reports as per HPI Genitourinary: Reports as per HPI Musculoskeletal: Reports as per HPI Skin/Breast: Reports as per HPI Reports as per HPI Psychiatric: Reports as per HPI, Reports anxiety, Reports depression, Reports hopelessness, Denies panic attacks, Denies visual hallucinations, Denies tactile hallucinations, Denies homicidal ideation and Reports suicidal ideation Endocrine: Reports as per HPI Hematologic/Lymphatic: Reports as per HPI Allergic/Immunologic: Reports as per HPI Mental Status Exam Mental Status Exam Narrative: Pt is alert and oriented; behavior is cooperative, friendly and calm; dressed in casual attire; mood is described as depressed and anxious; eye contact appropriate; Speech is normal rate, volume and prosody and not pressured; no psychomotor agitation/retardation present; thought process is organized and goal directed; Thought content is on tx; otherwise pertinent to relevant topics and without any delusional content, paranoid ideation or grandiosity; denies HI. Report continued suicidal ideation with plan to OD on medications. There is no evidence of perceptual disturbance. Patients insight and judgment are poor. Diagnostics Vital Signs (24Hr): Vital Signs - 24 hr 03/08/23 20:30 03/09/23 08:03 Temperature 98.4 F 97.0 F Pulse Rate 84 55 Respiratory Rate 16 16 Blood Pressure 134/70 150/80 H Pulse Oximetry 98 98 Oxygen Delivery Method Room Air BMI result Body Mass Index 30.3 Labs 03/06/23 01:58 03/06/23 01:58 Medications Medications Current Medications Acetaminophen (Acetaminophen 325 Mg Tablet) 650 mg PO Q6H PRN PRN Reason: Headache/Pain Mild Scale (1-3) Al Hydroxide/Mg Hydroxide (Magnesium Hydrox/Alum Hydrox 30 Ml Oral.Susp) 30 ml PO Q6H PRN PRN Reason: Heartburn/Nausea Buprenorphine/Naloxone (Buprenorphine/Naloxone 8/2 Mg Film) 1 film SUBLINGUAL TID@0800,1200,1700 [facility] Last Admin: 03/09/23 08:28 Dose: 1 film Bupropion HCl (Bupropion Hcl Xl 150 Mg Tab.Er.24h) 450 mg PO DAILY [facility] Last Admin: 03/09/23 08:27 Dose: 450 mg Calcium Carbonate/Cholecalciferol (Calcium + Vitamin D 250 Mg Tablet) 500 mg PO DAILY [facility] Last Admin: 03/09/23 08:27 Dose: 500 mg Celecoxib (Celecoxib 200 Mg Capsule) 200 mg PO BID [facility] Last Admin: 03/09/23 08:27 Dose: 200 mg Chlorpromazine HCl (Chlorpromazine Hcl 100 Mg Tablet) 100 mg PO Q6H PRN PRN Reason: Agitation Disulfiram (Disulfiram 250 Mg Tablet) 250 mg PO DAILY [facility] Last Admin: 03/09/23 08:28 Dose: Not Given Ferrous Sulfate (Ferrous Sulfate 324 Mg Tablet.Dr) 324 mg PO Q48H [facility] Last Admin: 03/08/23 12:13 Dose: 324 mg Gabapentin (Gabapentin 400 Mg Capsule) 800 mg PO TID@0800,1200,1700 [facility] Last Admin: 03/09/23 08:27 Dose: 800 mg Hydroxyzine HCl (Hydroxyzine Hcl 50 Mg Tablet) 50 mg PO TID PRN PRN Reason: Anxiety Last Admin: 03/06/23 20:36 Dose: 50 mg Hydroxyzine HCl (Hydroxyzine Hcl 25 Mg Tablet) 25 mg PO Q6H PRN PRN Reason: Anxiety Magnesium Hydroxide (Milk Of Magnesia 30 Ml Oral.Susp) 30 ml PO DAILY PRN PRN Reason: Constipation Methylphenidate HCl (Methylphenidate Hcl 10 Mg Tablet) 10 mg PO BID@0800,1500 [facility] Last Admin: 03/09/23 08:27 Dose: 10 mg Nicotine (Nicotine 14 Mg Patch.Td24) 14 mg TRANSDERMA DAILY [facility] Last Admin: 03/09/23 08:28 Dose: Not Given Nicotine Polacrilex (Nicotine Polacrilex 2 Mg Gum) 4 mg BUCCAL Q2H PRN PRN Reason: Nicotine Cravings Prazosin HCl (Prazosin Hcl 5 Mg Capsule) 5 mg PO BEDTIME [facility]; Protocol Last Admin: 10/14/23 20:35 Dose: 5 mg Quetiapine Fumarate (Quetiapine Fumarate 50 Mg Tablet) 50 mg PO BID PRN PRN Reason: Panic Attack(S) Last Admin: 03/08/23 17:09 Dose: 50 mg Quetiapine Fumarate (Quetiapine Fumarate 100 Mg Tablet) 100 mg PO TID [facility] Last Admin: 03/09/23 08:27 Dose: 100 mg Senna (Sennosides 8.6 Mg Tablet) 8.6 mg PO BID [facility] Last Admin: 03/09/23 08:27 Dose: 8.6 mg Trazodone HCl (Trazodone Hcl 100 Mg Tablet) 100 mg PO BEDTIME PRN PRN Reason: Insomnia Last Admin: 03/07/23 20:50 Dose: 100 mg Trazodone HCl (Trazodone Hcl 50 Mg Tablet) 50 mg PO BEDTIME MRX1 PRN PRN Reason: Insomnia Last Admin: 03/08/23 20:35 Dose: 50 mg Zolpidem Tartrate (Zolpidem Tartrate 5 Mg Tablet) 5 mg PO BEDTIME PRN PRN Reason: Insomnia Last Admin: 03/08/23 20:35 Dose: 5 mg Allergies Allergies Allergy/AdvReac Type Severity Reaction Status Date / Time ketamine AdvReac Severe Agitated Verified 03/06/23 01:04 phenobarbital AdvReac Vomiting Verified 03/06/23 01:04 Assessment & Plan Assessment & Plan (1) MDD (major depressive disorder), recurrent episode, severe: Status: Acute Code(s): F33.2 - Major depressive disorder, recurrent severe without psychotic features (2) Chronic post-traumatic stress disorder (PTSD): Status: Acute Code(s): F43.12 - Post-traumatic stress disorder, chronic (3) Alcohol use disorder: Status: Chronic (4) Opioid use disorder: Status: Chronic Code(s): F11.99 - Opioid use, unspecified with unspecified opioid-induced disorder (5) Cocaine use disorder, moderate, dependence: Status: Acute Code(s): F14.20 - Cocaine dependence, uncomplicated Plan Patient is a 52 year old male with hx of MDD, ETOH use d/o, cocaine use d/o with multiple inpatient hospitalizations, most recently discharged from on 03/04/23, who self presented to [facility] with suicidal ideation with plan to OD on medication secondary to homelessness and substance abuse. Plan: CV 15 minute safety checks Continue home medications Referral to treatment program EVALUATE FOR POTENTIAL SEC 35 03/08 continue above treatment plan 03/09 continue treamtent plan Patient educated on: diagnosis Guardian/Caregiver educated on: medication risk/benefits, substance abuse and therapeutic strategies Reason for continued inpatient stay Substantial Risk for: harm to self, inability to function and rapid decompensation Time Spent With Patient Time: Total time managing care of this patient today ____ minutes.
[2023-03-09 12:10] VITALS: BP 161/68; PULSE 72; RESP 16; O2SAT 99
[2023-03-09] MEDS: Nicotine 14 MG PATCH.TD24 TRANSDERMA (12:12)
[2023-03-09] MEDS: QUEtiapine Fumarate 50 MG TABLET PO (17:09)
[2023-03-09 20:00] VITALS: BP 131/61; PULSE 82; TEMP 35.8
[2023-03-09] MEDS: Prazosin HCL 5 MG CAPSULE PO (20:19)
[2023-03-09] MEDS: traZODone HCL 100 MG TABLET PO (20:19)
[2023-03-09] MEDS: Zolpidem Tartrate 5 MG TABLET PO (20:19)
[2023-03-10 07:48] VITALS: BP 132/68; PULSE 66; RESP 16; TEMP 36.5; O2SAT 97
[2023-03-10] MEDS: Methylphenidate HCl 10 MG TABLET PO ×2 (08:33→14:15)
[2023-03-10] MEDS: Calcium + Vitamin D 250 MG TABLET 500 MG PO (08:33)
[2023-03-10] MEDS: Gabapentin 400 MG CAPSULE 800 MG PO ×3 (08:33→17:05)
[2023-03-10] MEDS: Buprenorphine/Naloxone 8/2 mg FILM 1 FILM SUBLINGUAL ×3 (08:33→17:05)
[2023-03-10] MEDS: Celecoxib 200 MG CAPSULE PO ×2 (08:33→21:12)
[2023-03-10] MEDS: QUEtiapine Fumarate 100 MG TABLET PO ×3 (08:33→21:12)
[2023-03-10] MEDS: buPROPion HCl XL 150 MG TAB.ER.24H 450 MG PO (08:33)
[2023-03-10] MEDS: Sennosides 8.6 MG TABLET PO ×2 (08:34→21:12)
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
--- NOTE | 2023-03-10 09:31 | HO.PSYCHPN ---
Subjective Subjective Date of Service: 03/10/23 Reason For Visit: SI Subjective Notes: Conditional Voluntary Interim History: pt reports depressed mood, anxiety reports continued SI continues to want to go to [facility] [employer] [facility] substance abuse treatment program depressed hopeless Medication Compliance: Yes Side effects from medications: No Attending Groups: Intermittent Review of Systems Acute medical concerns: No Medical Review of Systems: unchanged Mental Status Exam Mental Status Exam Patient Appearance: Well Grooomed Patient Orientation: Person, Place, Time and Situation Level of Consciousness: Awake Patient Behavior: Appropriate Mood Description: Calm, Constricted, Sad and Apprehensive Affect Description: Constricted, Blunted and Apprehensive Speech Pattern: Appropriate Memory Description: Intact Hallucinations: None Delusions: Not Present Thought Content: positive for Preoccupation Depressive Symptoms: Increased Anxiety, Insomnia, Hopelessness and Isolating-Friends/Family Judgement: Fair Diagnostics Vital Signs (24Hr): Vital Signs - 24 hr 03/09/23 12:10 03/09/23 20:00 03/10/23 07:48 Temperature 96.5 F L 97.7 F Pulse Rate 72 82 66 Respiratory Rate 16 16 Blood Pressure 161/68 H 131/61 132/68 Pulse Oximetry 99 97 Oxygen Delivery Method Room Air Room Air BMI result Body Mass Index 30.3 Labs 03/06/23 01:58 03/06/23 01:58 Medications Medications Current Medications Acetaminophen (Acetaminophen 325 Mg Tablet) 650 mg PO Q6H PRN PRN Reason: Headache/Pain Mild Scale (1-3) Al Hydroxide/Mg Hydroxide (Magnesium Hydrox/Alum Hydrox 30 Ml Oral.Susp) 30 ml PO Q6H PRN PRN Reason: Heartburn/Nausea Buprenorphine/Naloxone (Buprenorphine/Naloxone 8/2 Mg Film) 1 film SUBLINGUAL TID@0800,1200,1700 [facility] Last Admin: 03/10/23 08:33 Dose: 1 film Bupropion HCl (Bupropion Hcl Xl 150 Mg Tab.Er.24h) 450 mg PO DAILY [facility] Last Admin: 03/10/23 08:33 Dose: 450 mg Calcium Carbonate/Cholecalciferol (Calcium + Vitamin D 250 Mg Tablet) 500 mg PO DAILY [facility] Last Admin: 03/10/23 08:33 Dose: 500 mg Celecoxib (Celecoxib 200 Mg Capsule) 200 mg PO BID [facility] Last Admin: 03/10/23 08:33 Dose: 200 mg Chlorpromazine HCl (Chlorpromazine Hcl 100 Mg Tablet) 100 mg PO Q6H PRN PRN Reason: Agitation Disulfiram (Disulfiram 250 Mg Tablet) 250 mg PO DAILY [facility] Last Admin: 03/10/23 08:36 Dose: Not Given Ferrous Sulfate (Ferrous Sulfate 324 Mg Tablet.Dr) 324 mg PO Q48H [facility] Last Admin: 03/08/23 12:13 Dose: 324 mg Gabapentin (Gabapentin 400 Mg Capsule) 800 mg PO TID@0800,1200,1700 [facility] Last Admin: 03/10/23 08:33 Dose: 800 mg Hydroxyzine HCl (Hydroxyzine Hcl 50 Mg Tablet) 50 mg PO TID PRN PRN Reason: Anxiety Last Admin: 03/06/23 20:36 Dose: 50 mg Hydroxyzine HCl (Hydroxyzine Hcl 25 Mg Tablet) 25 mg PO Q6H PRN PRN Reason: Anxiety Magnesium Hydroxide (Milk Of Magnesia 30 Ml Oral.Susp) 30 ml PO DAILY PRN PRN Reason: Constipation Methylphenidate HCl (Methylphenidate Hcl 10 Mg Tablet) 10 mg PO BID@0800,1500 [facility] Last Admin: 03/10/23 08:33 Dose: 10 mg Nicotine (Nicotine 14 Mg Patch.Td24) 14 mg TRANSDERMA DAILY [facility] Last Admin: 03/10/23 08:36 Dose: Not Given Nicotine Polacrilex (Nicotine Polacrilex 2 Mg Gum) 4 mg BUCCAL Q2H PRN PRN Reason: Nicotine Cravings Prazosin HCl (Prazosin Hcl 5 Mg Capsule) 5 mg PO BEDTIME [facility]; Protocol Last Admin: 03/09/23 20:19 Dose: 5 mg Quetiapine Fumarate (Quetiapine Fumarate 50 Mg Tablet) 50 mg PO BID PRN PRN Reason: Panic Attack(S) Last Admin: 03/09/23 17:09 Dose: 50 mg Quetiapine Fumarate (Quetiapine Fumarate 100 Mg Tablet) 100 mg PO TID [facility] Last Admin: 03/10/23 08:33 Dose: 100 mg Senna (Sennosides 8.6 Mg Tablet) 8.6 mg PO BID [facility] Last Admin: 03/10/23 08:34 Dose: 8.6 mg Trazodone HCl (Trazodone Hcl 100 Mg Tablet) 100 mg PO BEDTIME PRN PRN Reason: Insomnia Last Admin: 03/09/23 20:19 Dose: 100 mg Trazodone HCl (Trazodone Hcl 50 Mg Tablet) 50 mg PO BEDTIME MRX1 PRN PRN Reason: Insomnia Last Admin: 03/08/23 20:35 Dose: 50 mg Zolpidem Tartrate (Zolpidem Tartrate 5 Mg Tablet) 5 mg PO BEDTIME PRN PRN Reason: Insomnia Last Admin: 03/09/23 20:19 Dose: 5 mg Allergies Allergies Allergy/AdvReac Type Severity Reaction Status Date / Time ketamine AdvReac Severe Agitated Verified 03/06/23 01:04 phenobarbital AdvReac Vomiting Verified 03/06/23 01:04 Assessment & Plan Assessment & Plan (1) MDD (major depressive disorder), recurrent episode, severe: Status: Acute Code(s): F33.2 - Major depressive disorder, recurrent severe without psychotic features (2) Chronic post-traumatic stress disorder (PTSD): Status: Acute Code(s): F43.12 - Post-traumatic stress disorder, chronic (3) Alcohol use disorder: Status: Chronic (4) Opioid use disorder: Status: Chronic Code(s): F11.99 - Opioid use, unspecified with unspecified opioid-induced disorder (5) Cocaine use disorder, moderate, dependence: Status: Acute Code(s): F14.20 - Cocaine dependence, uncomplicated Plan Patient is a 52 year old male with hx of MDD, ETOH use d/o, cocaine use d/o with multiple inpatient hospitalizations, most recently discharged from on 03/04/23, who self presented to [facility] ER with suicidal ideation with plan to OD on medication secondary to homelessness and substance abuse. Plan: CV 15 minute safety checks Continue home medications Referral to treatment program EVALUATE FOR POTENTIAL SEC 35 03/08 continue above treatment plan 03/10/23 Pt has been depressed hopeless helpless agreeable to referral to rehab setting Patient educated on: diagnosis and substance abuse Informed Consent: understands Reason for continued inpatient stay Substantial Risk for: harm to self Time Spent With Patient Time: Total time managing care of this patient today __30__ minutes.
[2023-03-10] MEDS: Nicotine 14 MG PATCH.TD24 TRANSDERMA (12:07)
[2023-03-10] MEDS: Ferrous Sulfate 324 MG TABLET.DR PO (12:07)
[2023-03-10 16:25] VITALS: BP 138/76; PULSE 69; RESP 16; TEMP 36; O2SAT 99
[2023-03-10] MEDS: QUEtiapine Fumarate 50 MG TABLET PO (17:05)
[2023-03-10] MEDS: Zolpidem Tartrate 5 MG TABLET PO (21:11)
[2023-03-10] MEDS: Prazosin HCL 5 MG CAPSULE PO (21:11)
[2023-03-10] MEDS: traZODone HCL 100 MG TABLET PO (21:11)
[2023-03-11 07:45] VITALS: BP 132/69; PULSE 63; RESP 18; TEMP 36.2; O2SAT 100
[2023-03-11] MEDS: Celecoxib 200 MG CAPSULE PO ×2 (08:25→20:42)
[2023-03-11] MEDS: Methylphenidate HCl 10 MG TABLET PO ×2 (08:25→14:09)
[2023-03-11] MEDS: Sennosides 8.6 MG TABLET PO ×2 (08:25→20:42)
[2023-03-11] MEDS: buPROPion HCl XL 150 MG TAB.ER.24H 450 MG PO (08:26)
[2023-03-11] MEDS: QUEtiapine Fumarate 100 MG TABLET PO ×3 (08:26→20:42)
[2023-03-11] MEDS: Gabapentin 400 MG CAPSULE 800 MG PO ×3 (08:26→16:52)
[2023-03-11] MEDS: Calcium + Vitamin D 250 MG TABLET 500 MG PO (08:26)
[2023-03-11] MEDS: Buprenorphine/Naloxone 8/2 mg FILM 1 FILM SUBLINGUAL ×3 (08:27→16:52)
[2023-03-11] MEDS: Nicotine 14 MG PATCH.TD24 TRANSDERMA (11:59)
[2023-03-11] MEDS: OLANZapine 10 MG TABLET PO (16:06)
--- NOTE | 2023-03-11 16:33 | HO.PSYCHPN ---
Subjective Subjective Date of Service: 03/11/23 Reason For Visit: SI Subjective Notes: Conditional Voluntary Healthcare Proxy: No Guardianship: No Medical Problems Affecting Mental Status: No Interim History: Accepted to [facility] for 03/12/23. Pt is satisfied with this acceptance, states he is working to get himself back on a better path for sobriety and improved emotional health. Full med review, prescriptions sent to [facility] Anxious about leaving. Will trial Olanzapine x 1 dose and assess efficacy. Suboxone appt scheduled by team for 03/18/23. Medication Compliance: Yes Side effects from medications: No Attending Groups: Intermittent Review of Systems Acute medical concerns: No Medical Review of Systems: unchanged Mental Status Exam Mental Status Exam Patient Appearance: Appropriate Patient Orientation: Person, Place, Time and Situation Level of Consciousness: Alert Patient Behavior: Appropriate, Talkative, Cooperative and Good Eye Contact Mood Description: Anxious and Apprehensive Affect Description: Anxious and Apprehensive Patient Cognition Impaired: No Ability to Follow Directions: Good Speech Pattern: Spontaneous Speech Memory Description: Intact Hallucinations: None Delusions: Not Present Thought Process: Distracted Thought Content: positive for Circumstantial, positive for Perseveration, positive for Suicidal Ideation (denies) and positive for Homicidal Ideation (denies) Depressive Symptoms: Low Self Esteem Judgement: Good Diagnostics Vital Signs (24Hr): Vital Signs - 24 hr 03/11/23 07:45 Temperature 97.2 F Pulse Rate 63 Respiratory Rate 18 Blood Pressure 132/69 Pulse Oximetry 100 Oxygen Delivery Method Room Air BMI result Body Mass Index 30.3 Labs 03/06/23 01:58 03/06/23 01:58 Medications Medications Current Medications Acetaminophen (Acetaminophen 325 Mg Tablet) 650 mg PO Q6H PRN PRN Reason: Headache/Pain Mild Scale (1-3) Al Hydroxide/Mg Hydroxide (Magnesium Hydrox/Alum Hydrox 30 Ml Oral.Susp) 30 ml PO Q6H PRN PRN Reason: Heartburn/Nausea Buprenorphine/Naloxone (Buprenorphine/Naloxone 8/2 Mg Film) 1 film SUBLINGUAL TID@0800,1200,1700 [facility] Last Admin: 03/11/23 11:58 Dose: 1 film Bupropion HCl (Bupropion Hcl Xl 150 Mg Tab.Er.24h) 450 mg PO DAILY [facility] Last Admin: 03/11/23 08:26 Dose: 450 mg Calcium Carbonate/Cholecalciferol (Calcium + Vitamin D 250 Mg Tablet) 500 mg PO DAILY [facility] Last Admin: 03/11/23 08:26 Dose: 500 mg Celecoxib (Celecoxib 200 Mg Capsule) 200 mg PO BID [facility] Last Admin: 03/11/23 08:25 Dose: 200 mg Chlorpromazine HCl (Chlorpromazine Hcl 100 Mg Tablet) 100 mg PO Q6H PRN PRN Reason: Agitation Ferrous Sulfate (Ferrous Sulfate 324 Mg Tablet.Dr) 324 mg PO Q48H [facility] Last Admin: 03/10/23 12:07 Dose: 324 mg Gabapentin (Gabapentin 400 Mg Capsule) 800 mg PO TID@0800,1200,1700 [facility] Last Admin: 03/11/23 11:57 Dose: 800 mg Hydroxyzine HCl (Hydroxyzine Hcl 50 Mg Tablet) 50 mg PO TID PRN PRN Reason: Anxiety Last Admin: 03/06/23 20:36 Dose: 50 mg Hydroxyzine HCl (Hydroxyzine Hcl 25 Mg Tablet) 25 mg PO Q6H PRN PRN Reason: Anxiety Magnesium Hydroxide (Milk Of Magnesia 30 Ml Oral.Susp) 30 ml PO DAILY PRN PRN Reason: Constipation Methylphenidate HCl (Methylphenidate Hcl 10 Mg Tablet) 10 mg PO BID@0800,1500 [facility] Last Admin: 03/11/23 14:09 Dose: 10 mg Nicotine (Nicotine 14 Mg Patch.Td24) 14 mg TRANSDERMA DAILY [facility] Last Admin: 03/11/23 11:59 Dose: 14 mg Nicotine Polacrilex (Nicotine Polacrilex 2 Mg Gum) 4 mg BUCCAL Q2H PRN PRN Reason: Nicotine Cravings Prazosin HCl (Prazosin Hcl 5 Mg Capsule) 5 mg PO BEDTIME [facility]; Protocol Last Admin: 03/10/23 21:11 Dose: 5 mg Quetiapine Fumarate (Quetiapine Fumarate 50 Mg Tablet) 50 mg PO BID PRN PRN Reason: Panic Attack(S) Last Admin: 03/10/23 17:05 Dose: 50 mg Quetiapine Fumarate (Quetiapine Fumarate 100 Mg Tablet) 100 mg PO TID [facility] Last Admin: 03/11/23 14:09 Dose: 100 mg Senna (Sennosides 8.6 Mg Tablet) 8.6 mg PO BID [facility] Last Admin: 03/11/23 08:25 Dose: 8.6 mg Trazodone HCl (Trazodone Hcl 100 Mg Tablet) 100 mg PO BEDTIME PRN PRN Reason: Insomnia Last Admin: 03/10/23 21:11 Dose: 100 mg Trazodone HCl (Trazodone Hcl 50 Mg Tablet) 50 mg PO BEDTIME MRX1 PRN PRN Reason: Insomnia Last Admin: 03/08/23 20:35 Dose: 50 mg Zolpidem Tartrate (Zolpidem Tartrate 5 Mg Tablet) 5 mg PO BEDTIME PRN PRN Reason: Insomnia Last Admin: 03/10/23 21:11 Dose: 5 mg Allergies Allergies Allergy/AdvReac Type Severity Reaction Status Date / Time ketamine AdvReac Severe Agitated Verified 03/06/23 01:04 phenobarbital AdvReac Vomiting Verified 03/06/23 01:04 Assessment & Plan Assessment & Plan (1) MDD (major depressive disorder), recurrent episode, severe: Status: Acute Code(s): F33.2 - Major depressive disorder, recurrent severe without psychotic features (2) Chronic post-traumatic stress disorder (PTSD): Status: Acute Code(s): F43.12 - Post-traumatic stress disorder, chronic (3) Alcohol use disorder: Status: Chronic (4) Opioid use disorder: Status: Chronic Code(s): F11.99 - Opioid use, unspecified with unspecified opioid-induced disorder (5) Cocaine use disorder, moderate, dependence: Status: Acute Code(s): F14.20 - Cocaine dependence, uncomplicated Plan Patient is a 52 year old male with hx of MDD, ETOH use d/o, cocaine use d/o with multiple inpatient hospitalizations, most recently discharged from on 03/04/23, who self presented to [facility] ER with suicidal ideation with plan to OD on medication secondary to homelessness and substance abuse. Plan: CV 15 minute safety checks Continue home medications Referral to treatment program EVALUATE FOR POTENTIAL SEC 35 03/08 continue above treatment plan 03/10/23 Pt has been depressed hopeless helpless agreeable to referral to rehab setting 03/11/23 Cam accepted at [facility] for 03/12/23 Agrees to attend the program and reports he is satisfied with this offer for ongoing treatment. Patient educated on: medication risk/benefits, substance abuse and therapeutic strategies Informed Consent: understands Reason for continued inpatient stay Substantial Risk for: stable for discharge Time Spent With Patient Time: Total time managing care of this patient today ____ minutes.
[2023-03-11] MEDS: Zolpidem Tartrate 5 MG TABLET PO (20:42)
[2023-03-11] MEDS: Prazosin HCL 5 MG CAPSULE PO (20:42)
[2023-03-11] MEDS: traZODone HCL 100 MG TABLET PO (20:42)
[2023-03-11 22:08] VITALS: BP 128/67; PULSE 72; RESP 16; TEMP 36.1
[2023-03-12 07:55] VITALS: BP 136/73; PULSE 63; RESP 18; TEMP 36.2; O2SAT 99
[2023-03-12] MEDS: Nicotine 14 MG PATCH.TD24 TRANSDERMA (08:30)
[2023-03-12] MEDS: Calcium + Vitamin D 250 MG TABLET 500 MG PO (08:31)
[2023-03-12] MEDS: buPROPion HCl XL 150 MG TAB.ER.24H 450 MG PO (08:31)
[2023-03-12] MEDS: Gabapentin 400 MG CAPSULE 800 MG PO (08:31)
[2023-03-12] MEDS: QUEtiapine Fumarate 100 MG TABLET PO (08:32)
[2023-03-12] MEDS: Sennosides 8.6 MG TABLET PO (08:32)
[2023-03-12] MEDS: Celecoxib 200 MG CAPSULE PO (08:32)
[2023-03-12] MEDS: Methylphenidate HCl 10 MG TABLET PO (08:32)
[2023-03-12] MEDS: Buprenorphine/Naloxone 8/2 mg FILM 1 FILM SUBLINGUAL (08:33)
--- NOTE | 2023-03-12 15:46 | P.DS_ITS ---
DS: Providers Provider Date of Service: 03/12/23 Date of admission: 03/06/23 18:35 Date of discharge: 03/12/23 Primary care physician: Unknown Physician Admitting clinician: Jelena Limon Attending physician on admission: Vic Campuzano Attending physician on discharge: Vic Campuzano Discharging clinician: Joycelyn Jones DS: Diagnosis Discharge Diagnosis (1) MDD (major depressive disorder), recurrent episode, severe: Status: Acute (2) Chronic post-traumatic stress disorder (PTSD): Status: Acute (3) Alcohol use disorder: Status: Chronic (4) Opioid use disorder: Status: Chronic (5) Cocaine use disorder, moderate, dependence: Status: Acute DS: Medications Discharge Medications Home Medications: Previous Rx's Medication Instructions Recorded buprenorphine 8 mg-naloxone 2 mg 1 film sublingual 03/11/23 sublingual film (Suboxone) TID@0800,1200,1700 #21 ea bupropion HCl 150 mg 24 hr tablet, 450 mg (3 x 150 mg) PO DAILY #90 03/11/23 extended release tabs calcium carbonate 250 mg-vitamin 2 tab PO DAILY #60 tabs 03/11/23 D3 3.125 mcg (125 unit) tablet chlorpromazine 100 mg tablet 100 mg PO Q6H PRN Agitation #60 03/11/23 tabs ferrous sulfate 324 mg (65 mg 324 mg PO Q48H #15 tabs 03/11/23 iron) tablet,delayed release gabapentin 800 mg tablet 800 mg PO TID #90 tabs 03/11/23 hydroxyzine HCl 50 mg tablet 50 mg PO TID PRN Anxiety #90 tabs 03/11/23 methocarbamol 750 mg tablet 750 mg PO Q8H PRN pain (scale 03/11/23 score 4-6) #60 tabs methylphenidate HCl 10 mg tablet 10 mg PO BID@0800,1500 #60 tabs 03/11/23 nicotine (polacrilex) 2 mg gum 4 mg buccal Q2H PRN Nicotine 03/11/23 Cravings #100 ea nicotine 14 mg/24 hr daily 14 mg transdermal DAILY #30 ea 03/11/23 transdermal patch prazosin 5 mg capsule 5 mg PO BEDTIME #30 caps 03/11/23 quetiapine 100 mg tablet 100 mg PO TID #90 tabs 03/11/23 quetiapine 50 mg tablet 50 mg PO BID PRN Panic Attack(S) 03/11/23 #60 tabs sennosides 8.6 mg tablet (Senna 8.6 mg PO BID #60 tabs 03/11/23 Lax) trazodone 100 mg tablet 100 mg PO BEDTIME PRN Insomnia #30 03/11/23 tabs zolpidem 10 mg tablet (Ambien) 10 mg PO BEDTIME PRN insomnia #30 03/11/23 tabs Mental Status Exam Mental Status Exam Patient Appearance: Appropriate Patient Orientation: Person, Place, Time and Situation Level of Consciousness: Alert Patient Behavior: Appropriate, Talkative, Cooperative and Good Eye Contact Mood Description: Anxious and Apprehensive Affect Description: Anxious and Apprehensive Patient Cognition Impaired: No Ability to Follow Directions: Good Speech Pattern: Spontaneous Speech Memory Description: Intact Hallucinations: None Delusions: Not Present Thought Process: Distracted Thought Content: positive for Circumstantial, positive for Perseveration, positive for Suicidal Ideation (denies) and positive for Homicidal Ideation (denies) Depressive Symptoms: Low Self Esteem Judgement: Good Data Data Completed and Pending Completed studies during hospitalization [Text1]: 03/06/23 03/06/23 03/06/23 01:58 01:59 12:48 WBC 10.4 RBC 4.53 L Hgb 13.5 L Hct 39.3 L MCV 86.8 MCH 29.8 MCHC 34.4 RDW 13.0 Plt Count 257 MPV 9.5 Immature Gran % (Auto) 0.4 Neut % (Auto) 76.3 H Lymph % (Auto) 14.1 L [place] % (Auto) 8.0 Eos % (Auto) 0.5 Baso % (Auto) 0.7 Lymph # (Auto) 1.5 [place] # (Auto) 0.8 Eos # (Auto) 0.1 Baso # (Auto) 0.1 Abs Immat Gran (auto) 0.04 H Absolute Neuts (auto) 7.9 Absolute Nucleated RBC 0.000 Nucleated RBC % (auto) 0.0 Sodium 141 Potassium 3.6 Chloride 106 Carbon Dioxide 23 Anion Gap 16 BUN 16 Creatinine 0.95 Estim Creat Clear Calc 115.3 Estimated GFR > 60 Random Glucose 112 Calcium 9.1 Total Bilirubin 0.5 AST 36 ALT 25 Alkaline Phosphatase 78 Total Protein 7.1 Albumin 4.5 Urine Color Yellow Urine Appearance Turbid Urine pH 6.0 Ur Specific Phillips >= 1.030 H Urine Protein Negative Urine Glucose (UA) Negative Urine Ketones Negative Urine Blood Negative Urine Nitrite Negative Ur Leukocyte Esterase Negative Urine Opiates Screen Not Detected Urine Fentanyl Screen Not Detected Ur Barbiturates Screen Not Detected Ur Phencyclidine Scrn Not Detected Ur Amphetamines Screen Not Detected U Benzodiazepines Scrn Not Detected Urine Cocaine Screen POSITIVE H U Marijuana (THC) Screen Not Detected Ethyl Alcohol < 10 COVID-19 (LINK) Negative COVID-19 Clin Com See Note DS: Summary Hospital Course Hospital Course: Admission to adult psychiatry for exacerbation of recurrent major depression, PTSD, alcohol, cocaine, opiate use disorders in the context of homelessness and resulting relapse and SI. Regime was re-evaluated and adjusted. Pt applied to and was accepted to [facility] where he will discharge to for 30 days of rehab and apply to [facility] prior to rehab completion. Time spent discussing smoking cessation with patient: 3 to 10 minutes Status at Discharge Functional status at discharge: independent ambulation Overall status at discharge: patient is progressing back to baseline Time Spent with Patient Time attestation: Total time managing care of this patient today ____ minutes. Time spent: Greater than 30 minutes Discharge Plan Discharge Anticipated Discharge Date/Time: 03/12/23 10:36 Patient Disposition: Xfer Inpatient Rehab Fac Discharge Diagnosis: PTSD Recurrent Major Depression Alcohol Use Disorder Cocaine Use Disorder Opiate Use Disorder Referrals: CSS Placement: [facility] [Other] - 03/12/23 11:00 am Suboxone: Dr. Peters ([facility]) [Other] - 03/18/23 1:45 pm [facility] [Other] - 1 Week (If you have any questions or concerns, please call or utilize their walk in service. ) Discharge Medications: New nicotine 14 mg/24 hr Patch 24 Hour 14 mg transdermal DAILY Qty: 30 0RF nicotine (polacrilex) 2 mg Gum 4 mg buccal Q2H PRN (Reason: Nicotine Cravings) Qty: 100 0RF prazosin 5 mg Capsule 5 mg PO BEDTIME Qty: 30 0RF Protocol: Hold for SBP< HOLD for SBP < : 90 ferrous sulfate 324 mg (65 mg iron) Tablet,Delayed Release (Dr/Ec) 324 mg PO Q48H Qty: 15 0RF sennosides [Senna Lax] 8.6 mg Tablet 8.6 mg PO BID Qty: 60 0RF methylphenidate HCl 10 mg Tablet 10 mg PO BID@0800,1500 Qty: 60 0RF Rx Instructions: Partial Fill upon patient request. chlorpromazine 100 mg Tablet 100 mg PO Q6H PRN (Reason: Agitation) Qty: 60 0RF hydroxyzine HCl 50 mg Tablet 50 mg PO TID PRN (Reason: Anxiety) Qty: 90 0RF quetiapine 100 mg Tablet 100 mg PO TID Qty: 90 0RF trazodone 100 mg Tablet 100 mg PO BEDTIME PRN (Reason: Insomnia) Qty: 30 0RF calcium carbonate-vitamin D3 250 mg-3.125 mcg (125 unit) Tablet 2 tab PO DAILY Qty: 60 0RF quetiapine 50 mg Tablet 50 mg PO BID PRN (Reason: Panic Attack(S)) Qty: 60 0RF gabapentin 800 mg tablet 800 mg PO TID Qty: 90 0RF buprenorphine-naloxone [Suboxone] 8-2 mg Film 1 film sublingual TID@0800,1200,1700 Qty: 21 0RF zolpidem [Ambien] 10 mg tablet 10 mg PO BEDTIME PRN (Reason: insomnia) Qty: 30 0RF methocarbamol 750 mg tablet 750 mg PO Q8H PRN (Reason: pain (scale score 4-6)) Qty: 60 0RF bupropion HCl [Wellbutrin XL] 300 mg tablet extended release 24 hr 300 mg PO QAM Qty: 30 0RF bupropion HCl [Wellbutrin XL] 150 mg tablet extended release 24 hr 150 mg PO QAM Qty: 30 0RF Discontinued chlorpromazine 100 mg tablet 100 mg PO Q6H PRN (Reason: Agitation) prazosin 5 mg capsule 5 mg PO BEDTIME calcium carbonate-vitamin D3 600 mg-10 mcg (400 unit) tablet 1 tab PO DAILY bupropion HCl 150 mg tablet extended release 24 hr 450 mg PO DAILY celecoxib [Celebrex] 200 mg Capsule 200 mg PO BID buprenorphine-naloxone [Suboxone] 8-2 mg film 1 film sublingual TID@0800,1200,1700 trazodone 50 mg tablet 100 mg PO BEDTIME PRN (Reason: Insomnia) gabapentin 800 mg tablet 800 mg PO TID zolpidem 5 mg tablet 10 mg PO BEDTIME PRN (Reason: Insomnia) methylphenidate HCl 10 mg Tablet 10 mg PO BID@0800,1500 disulfiram 250 mg Tablet 250 mg PO DAILY quetiapine 100 mg Tablet 100 mg PO TID quetiapine 50 mg Tablet 50 mg PO BID PRN (Reason: Panic Attack(S)) ferrous sulfate 324 mg (65 mg iron) Tablet,Delayed Release (Dr/Ec) 324 mg PO Q48H sennosides [senna] 8.6 mg Tablet 8.6 mg PO BID hydroxyzine pamoate 50 mg Capsule 50 mg PO TID PRN (Reason: Anxiety) methocarbamol 750 mg Tablet 750 mg PO Q8H PRN (Reason: Pain) Discharge Orders: Discharge Order (Routine); Ordered 03/11/23 Ordered By: Joycelyn Jones Diet: Advance to usual diet Activity on Discharge: As tolerated Stand Alone Forms: Patient Portal Discharge page, Community Support Care Plan Goals: Work on sobriety Mood and Behavioral Stabilization Health Concerns: Sobriety Mood and Behavioral Stabilization Plan of Treatment: Attend scheduled appointments Attend [facility] Take medications as directed Assessment: Pt interviewed prior to discharge and found to be fully oriented and without SI/HI. Pt has insight and demonstrates good judgment in terms of wanting to pursue treatment. Pt is not in imminent risk of harm to self or others and has a safety plan that includes presenting to the closest ER or calling 911 if feeling unsafe. Pt has been observed closely by nursing and unit staff throughout admission. Pt has not engaged in any behaviors that suggest dangerousness to self or others and has demonstrated appropriate behaviors and impulse control. Discharge Date/Time: 03/12/23 10:25
== END 2023-03-12 10:25 | DRG 751 ==
LOC: HO.ED 15:12 → HO.PM5 18:51
PROVIDERS: Emergency Medicine; Admitting Provider Psychiatry & Neurology Psychiatry; Emergency Provider Student in an Organized Health Care Education/Training Program; Visit Provider Clinical Nurse Specialist Psychiatric/Mental Health, Adult
DX: F33.2 Major depressive disorder, recurrent severe without psychotic features (principal); R45.851 Suicidal ideations; F14.20 Cocaine dependence, uncomplicated; F11.20 Opioid dependence, uncomplicated; F10.20 Alcohol dependence, uncomplicated; F43.12 Post-traumatic stress disorder, chronic; F17.210 Nicotine dependence, cigarettes, uncomplicated; Z71.6 Tobacco abuse counseling; Z20.822 Contact with and (suspected) exposure to COVID-19; Z79.899 Other long term (current) drug therapy
CPT/HCPCS: 36415; 80053; 80307; 81003; 85025; 87635; 93005; 99285; S9485

== ENCOUNTER → 2023-03-06 18:35 | Outpatient (BNV) | payer OTHER, SELFPAY | PROVIDERS: Admitting Provider Psychiatry & Neurology Psychiatry; Emergency Provider Student in an Organized Health Care Education/Training Program; Visit Provider Registered Nurse | DX: F33.2 Major depressive disorder, recurrent severe without psychotic features (principal); F43.12 Post-traumatic stress disorder, chronic; F10.90 Alcohol use, unspecified, uncomplicated; F11.90 Opioid use, unspecified, uncomplicated; F14.20 Cocaine dependence, uncomplicated | CPT/HCPCS: 99231; 99232; 99233 ==

== ENCOUNTER → 2023-03-06 18:35 | Outpatient (BNV) | payer OTHER, SELFPAY | PROVIDERS: Admitting Provider Psychiatry & Neurology Psychiatry; Emergency Provider Student in an Organized Health Care Education/Training Program; Visit Provider Psychiatry & Neurology Psychiatry | DX: F33.2 Major depressive disorder, recurrent severe without psychotic features (principal); F14.20 Cocaine dependence, uncomplicated; F43.12 Post-traumatic stress disorder, chronic; F10.90 Alcohol use, unspecified, uncomplicated; F11.90 Opioid use, unspecified, uncomplicated | CPT/HCPCS: 99231 ==

== ENCOUNTER 2023-12-08 21:17 | Inpatient (IN) | payer MEDICAID, SELFPAY ==
--- NOTE | 2023-12-08 | ECG_ITS ---
Test Reason : overdose Blood Pressure : / mmHG Vent. Rate : 099 BPM Atrial Rate : 099 BPM P-R Int : 136 ms QRS Dur : 086 ms QT Int : 346 ms P-R-T Axes : 047 017 024 degrees QTc Int : 444 ms Poor data quality, interpretation may be adversely affected Normal sinus rhythm Normal ECG When compared with ECG of 06-MAR-2023 13:11, No significant change was found Referred By: Nereida Yee Electronically Signed By:ALEXIS BRANDT MD
--- NOTE | ~2023-12-08 | XR_ITS ---
EXAMINATION: XR CHEST CLINICAL INFORMATION: Query aspiration. COMPARISON: Chest radiograph dated 02/28/2022. TECHNIQUE: Frontal view of the chest was obtained. FINDINGS: The heart is normal in size. The lungs are clear. Pleural spaces are clear. No pneumothorax. No acute osseous abnormality. XR/XR chest 1V IMPRESSION: No acute cardiopulmonary disease.
[2023-12-08 21:22] VITALS: BP 150/80; PULSE 104
[2023-12-08 21:26] VITALS: BP 138/66; PULSE 103; RESP 16; TEMP 36.6; O2SAT 93
[2023-12-08 21:28] VITALS: BP 138/66; PULSE 101; RESP 24; TEMP 36.6; O2SAT 91; BMI 29.4
--- NOTE | 2023-12-08 21:35 | ECG_ITS ---
Test Reason : OVERDOSE Blood Pressure : / mmHG Vent. Rate : 079 BPM Atrial Rate : 079 BPM P-R Int : 150 ms QRS Dur : 090 ms QT Int : 394 ms P-R-T Axes : 052 021 027 degrees QTc Int : 451 ms Normal sinus rhythm Normal ECG When compared with ECG of 08-DEC-2023 21:30, No significant change was found Referred By: Nereida Yee Electronically Signed By:ALEXIS BRANDT MD
--- NOTE | 2023-12-08 21:38 | PC.NURSE ---
belongings are placed in locker 12
--- NOTE | 2023-12-08 21:54 | PC.NURSE ---
Patient requesting PICC line, states he has very hard veins and doesn't want to be stuck 5x . Waiting for provider to picker patient.
[2023-12-08 21:56] LABS: MANUAL DIFF FLAG NO
[2023-12-08 21:57] LABS: Basophils Absolute Auto 0.1 X10*3/uL (0.0-0.2); Basophils Percent Auto 0.5 % (0-2); Eosinophils Percent Auto 0.3 % (0-4); Hematocrit 38.1 % (42.0-52.0); Hemoglobin 13.4 g/dl (14.0-18.0); Imm Gran Abs Auto 0.07 X10*3/uL (0.00-0.03); Imm Gran Pct Auto 0.5 % (0.0-0.4); Lymphocytes Absolute Auto 0.9 X10*3/uL (1.2-4.9); Lymphocytes Percent Auto 6.3 % (20-40); Mean Corpuscular HGB Conc 35.2 g/dl (31.0-36.0); Mean Corpuscular Hemoglobin 30.9 pg (27.0-33.0); Mean Platelet Volume 10.6 fL (9.4-12.4); Monocytes Absolute Auto 1.3 X10*3/uL (0.1-1.2); Monocytes Percent Auto 9.1 % (2-11); Neutrophils Absolute Auto 12.2 x10*3/uL (2.0-8.3); Neutrophils Percent Auto 83.3 % (45-73); Platelet Count 212 X10*3/uL (160-400); Red Blood Count 4.33 X10*6/uL (4.60-5.80); Red Cell Distribution Width 12.9 % (11.0-16.0); White Blood Count 14.7 X10*3/uL (4.8-10.8)
[2023-12-08 22:09] LABS: Appearance Urine Clear; Color Urine Yellow; Glucose Urine UA Negative (Negative); Leukocyte Esterase Urine Negative (Negative); Nitrite Urine Negative (Negative); PH 5.5 (5.0-9.0); Specific Gravity - Urine 1.025 (1.005-1.025); UMIC TRIGGER UACC YES; Urine Blood Moderate (2+) (Negative); Urine Ketones Trace mg/dL (Negative); Urine Protein 30 (1+) mg/dL (Neg-Trace)
[2023-12-08 22:14] LABS: Alanine Aminotransferase 37 U/L (0-40); Albumin Level 4.6 g/dL (3.5-5.0); Alkaline Phosphatase 72 U/L (39-117); Anion Gap 21 (12-20); Aspartate Amino Transferase 50 U/L (5-37); Bilirubin Direct 0.1 mg/dL (0.0-0.5); Bilirubin Total 0.4 mg/dL (0.0-1.0); Blood Urea Nitrogen 18 mg/dL (9-16); Calcium 10.2 mg/dL (8.4-10.2); Carbon Dioxide 19 mmol/L (22-29); Chloride 104 mmol/L (96-108); Creatinine Clr Calc Pharmacy 71.1; Estimated Glomerular Filt Rate 49; Ethanol < 10 mg/dL; Glucose Random 109 mg/dL (60-115); Magnesium 2.5 mg/dL (1.6-2.6); Potassium 4.8 mmol/L (3.3-5.1); Salicylate < 5.0 mg/dL (15-30); Sodium 139 mmol/L (135-145); Total Protein 7.3 g/dL (6.5-8.0)
[2023-12-08 22:19] LABS: Troponin-I High Sensitivity 10.8 ng/L (<3.5-35.0)
[2023-12-08 22:19] LABS: Amphetamine Screen Urine Not Detected (Not Detect); Barbiturates, Urine Not Detected (Not Detect); Benzodiazepines Screen Urine POSITIVE (Not Detect); Buprenorphine Scr Positive (Not Detect); Cannabinoid Screen Urine Not Detected (Not Detect); Cocaine Screen Urine POSITIVE (Not Detect); Fentanyl, urine Not Detected (Not Detect); Methadone Screen, Urine Not Detected (Not Detect); Opiate Screen Urine Not Detected (Not Detect); Oxycodone Screen Urine Not Detected (Not Detect); Phencyclidine Screen Urine Not Detected (Not Detect)
[2023-12-08 22:21] LABS: Bacteria Urine None Seen (None Seen); Hyaline Casts Urine >20 /LPF (0-2); RBC Urine 0-2 /HPF (0-2); Squamous Epithelial Cell Urine 0-2 /HPF (0-2); WBC Urine 0-5 /HPF (0-5)
[2023-12-08 22:30] LABS: Acetaminophen LAB < 3 mcg/mL (<30)
[2023-12-08] MEDS: 0.9 % Sodium Chloride 1,000 ML 999 ML IV (22:34)
[2023-12-08] MEDS: LORazepam 2 MG/ML VIAL IVPUSH (22:34)
--- NOTE | 2023-12-08 22:53 | ED.OVERDOSE ---
HPI - Overdose General Chief Complaint: Overdose Stated Complaint: SI, TOOK 15 WELLBUTRIN, ETOH, CRACK USE PER EMS Time Seen by Provider: 12/08/23 21:44 Source: patient and old records reviewed Mode of arrival: EMS Limitations: no limitations History of Present Illness ED Provider: SINGH JOHNSON Narrative: 53 yo male PMH of depression, overdose, substance abuse, ETOH abuse with withdrawal seizure here with c/o smoking crack then overdosing on 15 tabs of 300mg XR wellbutrin in attempt he is vague about onset initially 8pm them asked the bedside health and safety technician when he overdose. He states he feels like he is going through withdrawal but appears jittery from crack use. States he has been binge drinking for one month MD complaint: intentional overdose Onset (ago): hour(s) (? few) Intent: suicide attempt How Overdose Was Discovered: called 911 Context: Intentional Overdose: drug/ETOH problems Associated symptoms: depression Treatments Prior to Arrival: none Related Data Previous Rx's ?Medication ?Instructions ?Recorded buprenorphine 8 mg-naloxone 2 mg 1 film sublingual 03/11/23 sublingual film (Suboxone) TID@0800,1200,1700 #21 ea calcium carbonate 250 mg-vitamin 2 tab PO DAILY #60 tabs 03/11/23 D3 3.125 mcg (125 unit) tablet chlorpromazine 100 mg tablet 100 mg PO Q6H PRN Agitation #60 03/11/23 tabs ferrous sulfate 324 mg (65 mg 324 mg PO Q48H #15 tabs 03/11/23 iron) tablet,delayed release gabapentin 800 mg tablet 800 mg PO TID #90 tabs 03/11/23 hydroxyzine HCl 50 mg tablet 50 mg PO TID PRN Anxiety #90 tabs 03/11/23 methocarbamol 750 mg tablet 750 mg PO Q8H PRN pain (scale 03/11/23 score 4-6) #60 tabs methylphenidate HCl 10 mg tablet 10 mg PO BID@0800,1500 #60 tabs 03/11/23 nicotine (polacrilex) 2 mg gum 4 mg buccal Q2H PRN Nicotine 03/11/23 Cravings #100 ea nicotine 14 mg/24 hr daily 14 mg transdermal DAILY #30 ea 03/11/23 transdermal patch prazosin 5 mg capsule 5 mg PO BEDTIME #30 caps 03/11/23 quetiapine 100 mg tablet 100 mg PO TID #90 tabs 03/11/23 quetiapine 50 mg tablet 50 mg PO BID PRN Panic Attack(S) 03/11/23 #60 tabs sennosides 8.6 mg tablet (Senna 8.6 mg PO BID #60 tabs 03/11/23 Lax) trazodone 100 mg tablet 100 mg PO BEDTIME PRN Insomnia #30 03/11/23 tabs zolpidem 10 mg tablet (Ambien) 10 mg PO BEDTIME PRN insomnia #30 03/11/23 tabs bupropion HCl 150 mg 24 hr tablet, 150 mg PO QAM #30 tabs 03/17/23 extended release (Wellbutrin XL) bupropion HCl 300 mg 24 hr tablet, 300 mg PO QAM #30 tabs 03/17/23 extended release (Wellbutrin XL) Allergies Allergy/AdvReac Type Severity Reaction Status Date / Time ketamine AdvReac Severe Agitated Verified 12/08/23 21:32 phenobarbital AdvReac Vomiting Verified 12/08/23 21:32 Review of Systems Review of Systems: Constitutional : No Fever, No Chills ENT/Mouth : No Ear Pain, No Nasal Congestion, No sore throat Eyes: No Eye Pain, No Swelling, No Redness Cardiovascular : No Chest Pain, No SOB Respiratory : No Cough, No Sputum, No Dyspnea Gastrointestinal : No Nausea, No Vomiting, No Diarrhea, No Hematochezia, No Melena Genitourinary : No Dysuria, No Urinary Frequency, No Hematuria Musculoskeletal : No Myalgias Skin : No Skin Lesions, No rash Neuro : No Weakness, No Numbness, No Paresthesias, No Dizziness, No Headache Psych : positive Anxiety, positive Depression, positive SI/HI All other systems reviewed and are negative [facility] Past Medical History Attestation statement: The following information was validated with the patient. Source: old records reviewed Medical History Medical clearance for psychiatric admission Incidental pulmonary nodule Hepatic steatosis Alcohol use disorder Hepatitis C antibody positive in blood Alcohol dependence EtOH dependence Anxiety Chronic post-traumatic stress disorder (PTSD) MDD (major depressive disorder), recurrent episode, severe Depression Surgical History History of mandibular surgery Family History Family History Mother Diabetes mellitus Father Leukemia Social History Social History Household Members: None Household Members Other:: [employer] program Housing: Homeless Housing Other:: [employer] Do you presently have visiting nurse or other home services: No Unable to assess alcohol history related to: Unknown Alcohol intake: current Alcohol intake frequency: 3 or more drinks per day Alcohol type: hard liquor Comment: 1:1 sitter Patient Tobacco Use Status: Former Tobacco user Tobacco use type: Cigarette Cigarette Packs Per Day: 0.5 Cigarettes Per Day: 10.0 Years Smoked: ''many'' Smoked in Last 30 Days: Yes e-Cigarette/Vaping Use: Never Used Second Hand Smoke Exposure: No Use of substances other than those prescribed or required for medical reasons: Yes Substance Use Type: Crack/Cocaine Last Used Substance: Days (ago) Advance Directives: No Advance Directives Information Provided: No Do you have a plan to hurt others: No Plan Nutrition Risks: No Nutritional Risk service: No Current occupational status: unemployed Sexual orientation: Lesbian/Rhodes/Homosexual Physical Exam Vital Signs: Vital Signs: Last Vital Signs Temp 97.7 F 12/09/23 00:09 Pulse 80 12/09/23 00:09 Resp 13 12/09/23 00:09 BP 124/53 L 12/09/23 00:09 Pulse Ox 94 12/09/23 00:09 O2 Del Method Room Air 12/09/23 00:09 BMI result Body Mass Index 29.4 Appearance: Alert. Oriented X3. No acute distress. Jittery rubbing nose Eyes: Pupils equal, round and reactive to light. 3mm ENT: Pharynx normal. Neck: Normal inspection. Neck supple. CVS: Normal heart rate and rhythm. Pulses normal. Respiratory: No respiratory distress. Breath sounds normal. Abdomen: Soft and nontender. Skin: Skin warm and dry. Normal skin color. Normal skin turgor. Extremities: No lower extremity edema. No calf ttp Neuro: Oriented X 3. No motor deficit. No sensory deficit. no clonus Course Course Course Narrative: lactic acidosis due to overdose and dehydration not infection or severe sepsis 1250am Medications Administered Generic Name Dose Route Start Last Admin Trade Name Dannyq PRN Reason Stop Dose Admin Thiamine HCl 100 mg 12/08/23 23:55 12/09/23 00:26 Thiamine Hcl 100 Mg Tablet PO 100 mg DAILY FOUZIA Administration Discontinued Medications Generic Name Dose Route Start Last Admin Trade Name Dannyq PRN Reason Stop Dose Admin Charcoal 50 gm 12/08/23 23:09 12/09/23 00:10 Activated Charcoal 50 Gm/240 Ml Oral.Susp PO 12/08/23 23:10 50 gm ONCE ONE Administration Sodium Chloride 1,000 mls @ 999 mls/hr 12/08/23 22:24 12/08/23 22:34 Ns IV 12/08/23 23:24 999 mls/hr .Q1H1M ONE Administration Lorazepam 2 mg 12/08/23 22:13 12/08/23 22:34 Lorazepam 2 Mg/Ml Vial IVPUSH 12/08/23 22:14 2 mg ONCE ONE Administration Ondansetron HCl 4 mg 12/08/23 23:09 12/09/23 00:10 Ondansetron Hcl 4 Mg/2 Ml Vial IVPUSH 12/08/23 23:10 4 mg ONCE ONE Administration Medical Decision Making Medical Decision Making [facility] Narrative: 53 yo male PMH of depression, overdose, substance abuse, ETOH abuse with withdrawal seizure here with c/o ETOH abuse, crack cocaine abuse, wellbutrin overdose at this time IVF started, IV ativan PRN, admission for further work up given wellbutrin overdose and concerns for seizures and arrythmia. Plan to admit. Start on IV ativan monitor lytes and talk to poison control. Differential Diagnosis Differential Diagnoses: The differential diagnosis associated with the presentation includes intentional overdose, drug and ETOh abuse Admission/Observation Consideration of admission/observation: Escalation of care including admission/observation considered admit for tele and seizure monitoring Consult Healthcare Provider Management of the patient was discussed with: Hospitalist (will admit) and Drop Pit Worker poison control - q2H EKG repeat labs in 4 hours want lactic acid level charcoal despite ingestion hours ago tele bed 24 hours and seizure monitoring repeat chemistries, lactic acid, vbg, tylenol, aspirin levels Lab Data [facility] Lab Attestation statement: I reviewed the patient's lab results. 12/08/23 21:53 12/08/23 21:53 Labs: Lab Results 12/08/23 12/08/23 12/08/23 Range/Units 21:53 22:01 23:38 WBC 14.7 H (4.8-10.8) X10*3/uL RBC 4.33 L (4.60-5.80) X10*6/uL Hgb 13.4 L (14.0-18.0) g/dl Hct 38.1 L (42.0-52.0) % MCV 88.0 (80.0-98.0) fL MCH 30.9 (27.0-33.0) pg MCHC 35.2 (31.0-36.0) g/dl RDW 12.9 (11.0-16.0) % Plt Count 212 (160-400) X10*3/uL MPV 10.6 (9.4-12.4) fL Immature Gran % (Auto) 0.5 H (0.0-0.4) % Neut % (Auto) 83.3 H (45-73) % Lymph % (Auto) 6.3 L (20-40) % [place] % (Auto) 9.1 (2-11) % Eos % (Auto) 0.3 (0-4) % Baso % (Auto) 0.5 (0-2) % Lymph # (Auto) 0.9 L (1.2-4.9) X10*3/uL [place] # (Auto) 1.3 H (0.1-1.2) X10*3/uL Eos # (Auto) 0.0 (0.0-0.4) X10*3/uL Baso # (Auto) 0.1 (0.0-0.2) X10*3/uL Abs Immat Gran (auto) 0.07 H (0.00-0.03) X10*3/uL Absolute Neuts (auto) 12.2 H (2.0-8.3) x10*3/uL Absolute Nucleated RBC 0.000 (0.0-0.012) X10*3/uL Nucleated RBC % (auto) 0.0 (0.0-0.2) /100WBC VBG pH (7.32-7.43) VBG pCO2 mmHg VBG pO2 mmHg VBG HCO3 (22-26) mmol/L VBG O2 Saturation % VBG Base Excess mmol/L Sodium 139 (135-145) mmol/L Potassium 4.8 (3.3-5.1) mmol/L Chloride 104 (96-108) mmol/L Carbon Dioxide 19 L (22-29) mmol/L Anion Gap 21 H (12-20) BUN 18 H (9-16) mg/dL Creatinine 1.50 H (0.5-1.4) mg/dL Estim Creat Clear Calc 71.1 Estimated GFR 49 Random Glucose 109 (60-115) mg/dL Lactic Acid 2.5 H* (0.5-2.0) mmol/L Calcium 10.2 D (8.4-10.2) mg/dL Magnesium 2.5 (1.6-2.6) mg/dL Total Bilirubin 0.4 (0.0-1.0) mg/dL Direct Bilirubin 0.1 (0.0-0.5) mg/dL AST 50 H (5-37) U/L ALT 37 (0-40) U/L Alkaline Phosphatase 72 (39-117) U/L Total Creatine Kinase 2073 H (38-174) U/L Troponin I High Sens 10.8 D (<3.5-35.0) ng/L Total Protein 7.3 (6.5-8.0) g/dL Albumin 4.6 (3.5-5.0) g/dL Urine Color Yellow Urine Appearance Clear Urine pH 5.5 (5.0-9.0) Ur Specific [place] 1.025 (1.005-1.025) Urine Protein 30 (1+) H (Neg-Trace) mg/dL Urine Glucose (UA) Negative (Negative) mg/dL Urine Ketones Trace (Negative) mg/dL Urine Blood Moderate (2+) H (Negative) Urine Nitrite Negative (Negative) Ur Leukocyte Esterase Negative (Negative) Urine RBC 0-2 (0-2) /HPF Urine WBC 0-5 (0-5) /HPF Ur Squamous Epith Cells 0-2 (0-2) /HPF Urine Bacteria None Seen (None Seen) Hyaline Casts >20 (0-2) /LPF Salicylates < 5.0 L (15-30) mg/dL Urine Opiates Screen Not Detected (Not Detect) Ur Buprenorphine Scrn Positive H (Not Detect) ng/mL Ur Oxycodone Screen Not Detected (Not Detect) ng/mL Urine Methadone Screen Not Detected (Not Detect) ng/mL Urine Fentanyl Screen Not Detected (Not Detect) Acetaminophen < 3 (<30) mcg/mL Ur Barbiturates Screen Not Detected (Not Detect) Ur Phencyclidine Scrn Not Detected (Not Detect) Ur Amphetamines Screen Not Detected (Not Detect) U Benzodiazepines Scrn POSITIVE H (Not Detect) Urine Cocaine Screen POSITIVE H (Not Detect) U Marijuana (THC) Screen Not Detected (Not Detect) Ethyl Alcohol < 10 mg/dL 12/08/23 Range/Units 23:41 WBC (4.8-10.8) X10*3/uL RBC (4.60-5.80) X10*6/uL Hgb (14.0-18.0) g/dl Hct (42.0-52.0) % MCV (80.0-98.0) fL MCH (27.0-33.0) pg MCHC (31.0-36.0) g/dl RDW (11.0-16.0) % Plt Count (160-400) X10*3/uL MPV (9.4-12.4) fL Immature Gran % (Auto) (0.0-0.4) % Neut % (Auto) (45-73) % Lymph % (Auto) (20-40) % [place] % (Auto) (2-11) % Eos % (Auto) (0-4) % Baso % (Auto) (0-2) % Lymph # (Auto) (1.2-4.9) X10*3/uL [place] # (Auto) (0.1-1.2) X10*3/uL Eos # (Auto) (0.0-0.4) X10*3/uL Baso # (Auto) (0.0-0.2) X10*3/uL Abs Immat Gran (auto) (0.00-0.03) X10*3/uL Absolute Neuts (auto) (2.0-8.3) x10*3/uL Absolute Nucleated RBC (0.0-0.012) X10*3/uL Nucleated RBC % (auto) (0.0-0.2) /100WBC VBG pH 7.41 (7.32-7.43) VBG pCO2 43 mmHg VBG pO2 62 mmHg VBG HCO3 28 H (22-26) mmol/L VBG O2 Saturation 91.0 % VBG Base Excess 3.0 mmol/L Sodium (135-145) mmol/L Potassium (3.3-5.1) mmol/L Chloride (96-108) mmol/L Carbon Dioxide (22-29) mmol/L Anion Gap (12-20) BUN (9-16) mg/dL Creatinine (0.5-1.4) mg/dL Estim Creat Clear Calc Estimated GFR Random Glucose (60-115) mg/dL Lactic Acid (0.5-2.0) mmol/L Calcium (8.4-10.2) mg/dL Magnesium (1.6-2.6) mg/dL Total Bilirubin (0.0-1.0) mg/dL Direct Bilirubin (0.0-0.5) mg/dL AST (5-37) U/L ALT (0-40) U/L Alkaline Phosphatase (39-117) U/L Total Creatine Kinase (38-174) U/L Troponin I High Sens (<3.5-35.0) ng/L Total Protein (6.5-8.0) g/dL Albumin (3.5-5.0) g/dL Urine Color Urine Appearance Urine pH (5.0-9.0) Ur Specific [place] (1.005-1.025) Urine Protein (Neg-Trace) mg/dL Urine Glucose (UA) (Negative) mg/dL Urine Ketones (Negative) mg/dL Urine Blood (Negative) Urine Nitrite (Negative) Ur Leukocyte Esterase (Negative) Urine RBC (0-2) /HPF Urine WBC (0-5) /HPF Ur Squamous Epith Cells (0-2) /HPF Urine Bacteria (None Seen) Hyaline Casts (0-2) /LPF Salicylates (15-30) mg/dL Urine Opiates Screen (Not Detect) Ur Buprenorphine Scrn (Not Detect) ng/mL Ur Oxycodone Screen (Not Detect) ng/mL Urine Methadone Screen (Not Detect) ng/mL Urine Fentanyl Screen (Not Detect) Acetaminophen (<30) mcg/mL Ur Barbiturates Screen (Not Detect) Ur Phencyclidine Scrn (Not Detect) Ur Amphetamines Screen (Not Detect) U Benzodiazepines Scrn (Not Detect) Urine Cocaine Screen (Not Detect) U Marijuana (THC) Screen (Not Detect) Ethyl Alcohol mg/dL Independent Interpretation I performed an independent interpretation of an: EKG and Plain X-Ray (normal ) Interpretation: Rate: 99 Rhythm: NSR [place]: normal Normal P waves. Normal PAYAM. Normal QRS complex. ST T wave : no ROE, normal qTC: 444 prior studies: no acute ischemia The study has been interpreted contemporaneously by me. . Radiology Impression Discussion of test interpretation with radiology: I have reviewed the radiologist's reading. Independent Historian Clinical information obtained from an independent historian. History obtained from or confirmed by: EMS External Record Review External record reviewed: Inpatient record Critical Care Time Critical Care Time Critical Care Time: Yes Total Critical Care Time: 45 Attestation: medical consult, IV ativan, review of records, admission, tele monitoring I attest to this time spent taking care of the patient Discharge Plan Discharge Clinical Impression: Alcohol use disorder, IVONNE (acute kidney injury) Cocaine intoxication Qualifiers: Complication of substance-induced condition: uncomplicated Qualified Code(s): F14.920 - Cocaine use, unspecified with intoxication, uncomplicated Intentional overdose Qualifiers: Encounter type: initial encounter Qualified Code(s): T50.902A - Poisoning by unspecified drugs, medicaments and biological substances, intentional self-harm, initial encounter Rhabdomyolysis Qualifiers: Rhabdomyolysis type: non-traumatic Qualified Code(s): M62.82 - Rhabdomyolysis Patient Disposition: Admitted As Inpatient Interventions: Admission Worksheet (ED) Last Done: 12/09/23 00:33
--- NOTE | 2023-12-08 23:03 | PC.NURSE ---
Called poison control, who recommends venous blood gases, lactic acid, activated charcoal (preferrably with sorbitol), 2L of fluids and EKGs q2hrs. They advise to watch for Altered mental status, seizures, hyper/hypo tension, ventricular arrythmias and conduction delays. They also recommend repeat chemistry, magnesium, tylenol, salicylates, lactic acid and venous blood gases 4 hours from initial blood draw. As well as an Admission to telemetry with seizure precautions for at least 24 hours even if pt looks good clinically after observation in ED.
[2023-12-08 23:46] LABS: Venous Blood Gas Refer to POC result
--- NOTE | 2023-12-08 23:52 | P.HPHOSP_ITS ---
History of Present Illness Date of Service: 12/08/23 Chief Complaint: Intentional overdose This is a 53-year-old male with pertinent history of major depressive disorder, cocaine use disorder, alcohol use disorder who was brought to the emergency department for evaluation of intentional overdose after consuming 15 tablets of 300 mg extended release Wellbutrin. Patient states he was feeling very low on the day of presentation and intentionally consumed all his Wellbutrin as a suicidal attempt. Patient states he was feeling helpless and wanted to get out of the situation. He also smoked crack cocaine on the day of presentation. His last alcohol drink was 1 and half days ago. No fever, chills, chest discomfort, palpitations, shortness of breath, abdominal pain, changes in urinary or bowel habits. In the emergency department, creatinine was found to be elevated. Patient was initiated on IV fluids and poison control was contacted. Review of Systems 2 Constitutional: Constitutional: Reports fatigue, Reports malaise and Reports weakness Cardiovascular: Cardiovascular: Reports no additional cardiovascular complaints Respiratory: Respiratory: Reports no additional respiratory complaints Gastrointestinal: Gastrointestinal: Reports no additional gastrointestinal complaints Genitourinary: Genitourinary: Reports no additional male genitourinary complaints Neurologic: Reports weakness Psychiatric: Psychiatric: Reports depression, Reports hopelessness and Reports suicidal ideation Endocrine: Endocrine: Reports fatigue [facility] Medical History Medical clearance for psychiatric admission Incidental pulmonary nodule Hepatic steatosis Alcohol use disorder Hepatitis C antibody positive in blood Alcohol dependence EtOH dependence Anxiety Chronic post-traumatic stress disorder (PTSD) MDD (major depressive disorder), recurrent episode, severe Depression Family History Mother Diabetes mellitus Father Leukemia Surgical History History of mandibular surgery Social History Household Members: None Household Members Other:: [employer] Housing: Homeless Housing Other:: [employer] Do you presently have visiting nurse or other home services: No Unable to assess alcohol history related to: Unknown Alcohol intake: current Alcohol intake frequency: 3 or more drinks per day Alcohol type: hard liquor Comment: 1:1 sitter Patient Tobacco Use Status: Current everyday Tobacco user Tobacco use type: Cigarette Cigarette Packs Per Day: 0.5 Cigarettes Per Day: 10.0 Years Smoked: ''many'' Smoked in Last 30 Days: Yes e-Cigarette/Vaping Use: Never Used Second Hand Smoke Exposure: No Use of substances other than those prescribed or required for medical reasons: Yes Substance Use Type: Crack/Cocaine Last Used Substance: Days (ago) Advance Directives: No Advance Directives Information Provided: No Do you have a plan to hurt others: No Plan service: No Current occupational status: unemployed Sexual orientation: Lesbian/Rhodes/Homosexual Meds Allergies Allergy/AdvReac Type Severity Reaction Status Date / Time ketamine AdvReac Severe Agitated Verified 12/08/23 21:32 phenobarbital AdvReac Vomiting Verified 12/08/23 21:32 Active Medications: Current Medications Acetaminophen (Acetaminophen 325 Mg Tablet) 650 mg PO Q6H PRN PRN Reason: Pain, Mild (Pain Scale 1-3), fever or headache Calcium Carbonate (Calcium Carbonate 750 Mg Tab.Chew) 750 mg PO Q4H PRN PRN Reason: Heartburn Enoxaparin Sodium (Enoxaparin Sodium 40 Mg/0.4 Ml Syringe) 40 mg SUBCUT Q24H FOUZIA Sodium Chloride (Ns) 1,000 mls @ 999 mls/hr IV .Q1H1M ONE Stop: 12/09/23 00:09 Lorazepam (Lorazepam 1 Mg Tablet) 1 mg PO Q4H PRN PRN Reason: Alcohol Withdrawal Magnesium Hydroxide (Milk Of Magnesia 30 Ml Oral.Susp) 30 ml PO DAILY PRN PRN Reason: Constipation Melatonin (Melatonin 3 Mg Tablet) 6 mg PO BEDTIME PRN PRN Reason: Insomnia Ondansetron HCl (Ondansetron Hcl 4 Mg/2 Ml Vial) 4 mg IVPUSH Q8H PRN PRN Reason: Nausea and Vomiting Sodium Chloride (0.9 % Sodium Chloride Flush 3 Ml Syringe) 3 ml IVFLUSH QSHIFT [facility] Physical Exam 2 Vital Signs and Narrative: Vital Signs: Last Vital Signs Temp 97.9 F 12/08/23 21:28 Pulse 101 H 12/08/23 21:28 Resp 24 H 12/08/23 21:28 BP 138/66 12/08/23 21:28 Pulse Ox 91 L 12/08/23 21:28 O2 Del Method Room Air 12/08/23 21:28 BMI result Body Mass Index 29.4 Middle-aged male lying in bed in no distress Neck supple, no JVD Regular rate and rhythm, S1-S2 heard Regular breath sounds bilaterally, no wheezing or crackles appreciated Abdomen soft nontender, no guarding, no rigidity Patient is awake, alert and oriented to self, place, time and person ; no focal motor deficit Psych: Depressed mood No pedal edema Results Labs 12/08/23 21:53 12/08/23 21:53 Labs: Laboratory Results - last 24 hr 12/08/23 12/08/23 21:53 22:01 MCV 88.0 MCH 30.9 MCHC 35.2 RDW 12.9 Plt Count 212 MPV 10.6 Immature Gran % (Auto) 0.5 H Neut % (Auto) 83.3 H Lymph % (Auto) 6.3 L [place] % (Auto) 9.1 Eos % (Auto) 0.3 Baso % (Auto) 0.5 Lymph # (Auto) 0.9 L [place] # (Auto) 1.3 H Eos # (Auto) 0.0 Baso # (Auto) 0.1 Abs Immat Gran (auto) 0.07 H Absolute Neuts (auto) 12.2 H Absolute Nucleated RBC 0.000 Nucleated RBC % (auto) 0.0 Anion Gap 21 H Estim Creat Clear Calc 71.1 Estimated GFR 49 Random Glucose 109 Calcium 10.2 D Magnesium 2.5 Total Bilirubin 0.4 Direct Bilirubin 0.1 AST 50 H ALT 37 Alkaline Phosphatase 72 Total Creatine Kinase 2073 H Troponin I High Sens 10.8 D Total Protein 7.3 Albumin 4.6 Urine Color Yellow Urine Appearance Clear Urine pH 5.5 Ur Specific [place] 1.025 Urine Protein 30 (1+) H Urine Glucose (UA) Negative Urine Ketones Trace Urine Blood Moderate (2+) H Urine Nitrite Negative Ur Leukocyte Esterase Negative Urine RBC 0-2 Urine WBC 0-5 Ur Squamous Epith Cells 0-2 Urine Bacteria None Seen Hyaline Casts >20 Salicylates < 5.0 L Urine Opiates Screen Not Detected Ur Buprenorphine Scrn Positive H Ur Oxycodone Screen Not Detected Urine Methadone Screen Not Detected Urine Fentanyl Screen Not Detected Acetaminophen < 3 Ur Barbiturates Screen Not Detected Ur Phencyclidine Scrn Not Detected Ur Amphetamines Screen Not Detected U Benzodiazepines Scrn POSITIVE H Urine Cocaine Screen POSITIVE H U Marijuana (THC) Screen Not Detected Ethyl Alcohol < 10 Imaging Radiologist's Impressions: Impressions Chest X-Ray 12/08/23 22:35 IMPRESSION: No acute cardiopulmonary disease. Assessment and Plan (1) IVONNE (acute kidney injury): Status: Acute (2) Intentional overdose: Qualifiers: Encounter type: initial encounter Qualified Code(s): T50.902A - Poisoning by unspecified drugs, medicaments and biological substances, intentional self-harm, initial encounter Status: Acute (3) Suicide attempt: Status: Acute Plan This is a 53-year-old male with pertinent history of major depressive disorder, cocaine use disorder, alcohol use disorder who was brought to the emergency department for evaluation of intentional overdose after consuming 15 tablets of 300 mg extended release Wellbutrin. #. Intentional overdose: Charcoal given in the ER. Will admit patient with cardiac monitoring. Poison control was contacted who recommended admission to tele bed for at least 24 hours with seizure precautions. Repeat chemistry, magnesium, lactic acid, Tylenol, salicylate and blood gas after 4 hours. EKG every 2 hours. Monitor for ventricular arrhythmias, altered mentation, conduction delays and changes in blood pressure. #. Suicidal attempt: Consulted sitter and Psychiatry. Mood stabilizing medications as per psych #. Acute kidney injury, stage I; Monitor creatinine and urine output with crystalloid resuscitation. Avoid nephrotoxins #. Rhabdomyolysis: Continue IV crystalloid resuscitation. Repeat CK in a.m. #. Cocaine use disorder: Monitor for withdrawals. Consulting Addiction Team #. Alcohol use disorder: Patient states he is allergic to phenobarb. Monitor CIWA. PO lorazepam p.r.n.. Addiction Team as above #. Reactive leukocytosis Med rec pending DVT prophylaxis: Lovenox Full code Admit as inpatient and will require two night minimum hospital stay for close monitoring of hemodynamics, monitoring of kidney function (as above), which is not possible in a lesser acute setting. Quality Stroke Does the patient have a stroke diagnosis?: No VTE Prior VTE?: No VTE Risk Level:: Medical - moderate - high VTE Device Contraindication: Treatment Not Indicated VTE Drug Contraindication: N/A - Med Ordered
[2023-12-09] VITALS (7 sets, daily range): BP systolic 116–166; BP diastolic 53–85; PULSE 75–84; RESP 13–21; TEMP 36.4–37.1; O2SAT 92–98; BMI 30.8
[2023-12-09 00:04] LABS: VBG HCO3 28 mmol/L (22-26); VBG pCO2 43 mmHg; VBG pH 7.41 (7.32-7.43); VBG pO2 62 mmHg
[2023-12-09] MEDS: ondansetron HCL 4 MG/2 ML VIAL IVPUSH (00:10)
[2023-12-09] MEDS: Activated charcoaL 50 GM/240 ML ORAL.SUSP PO (00:10)
[2023-12-09 00:11] LABS: Lactic Acid 2.5 mmol/L (0.5-2.0)
[2023-12-09] MEDS: Thiamine HCL 100 MG TABLET PO ×2 (00:26→10:32)
--- NOTE | 2023-12-09 00:32 | PC.NURSE ---
pt tolerated PO activated charcoal well. first NS Liter still infusing, placed on pressure bag to increase flow
[2023-12-09 01:44] LABS: Reflex Lactate? Lactic Acid Added
--- NOTE | 2023-12-09 02:00 | ECG_ITS ---
Test Reason : overdose Blood Pressure : / mmHG Vent. Rate : 082 BPM Atrial Rate : 082 BPM P-R Int : 146 ms QRS Dur : 094 ms QT Int : 410 ms P-R-T Axes : 057 035 035 degrees QTc Int : 479 ms Poor data quality Normal sinus rhythm Normal ECG When compared to the previous EKG of Poor data quality in current ECG precludes serial comparison Referred By: Nereida Yee Electronically Signed By:ALEXIS BRANDT MD
[2023-12-09] MEDS: diazePAM 10 MG/2 ML CARTRIDGE IVPUSH (02:26)
[2023-12-09] MEDS: 0.9 % Sodium Chloride 1,000 ML 999 ML IV (02:29)
--- NOTE | 2023-12-09 02:30 | PC.NURSE ---
Poison control updated on patient's status and EKG.Pt resting quietly,NSR on Tele.
[2023-12-09 02:31] LABS: Anion Gap 18 (12-20); Blood Urea Nitrogen 14 mg/dL (9-16); Carbon Dioxide 21 mmol/L (22-29); Chloride 105 mmol/L (96-108); Creatinine Clr Calc Pharmacy 91.2; Estimated Glomerular Filt Rate > 60; Glucose Random 133 mg/dL (60-115); Potassium 4.1 mmol/L (3.3-5.1); Sodium 140 mmol/L (135-145)
[2023-12-09 02:34] LABS: Lactic Acid 3.6 mmol/L (0.5-2.0)
--- NOTE | 2023-12-09 03:00 | PC.NURSE ---
Fluid boluses infusing slowly as pt has only 1 IV access site.Mult attempts ,including ultrasound have been unsuccessful. aware.
--- NOTE | 2023-12-09 04:00 | ECG_ITS ---
Test Reason : overdose Blood Pressure : / mmHG Vent. Rate : 078 BPM Atrial Rate : 078 BPM P-R Int : 134 ms QRS Dur : 096 ms QT Int : 404 ms P-R-T Axes : 050 037 013 degrees QTc Int : 460 ms Poor data quality, interpretation may be adversely affected Normal sinus rhythm Nonspecific T wave abnormality Prolonged QT Abnormal ECG When compared with ECG of 09-DEC-2023 00:01, Non specific T wave changes noted Referred By: Nereida Yee Electronically Signed By:ALEXIS BRANDT MD
[2023-12-09 04:10] LABS: Reflex Lactate? Lactic Acid Added
[2023-12-09 05:54] LABS: Hematocrit 35.5 % (42.0-52.0); Hemoglobin 12.2 g/dl (14.0-18.0); Mean Corpuscular HGB Conc 34.4 g/dl (31.0-36.0); Mean Corpuscular Hemoglobin 30.8 pg (27.0-33.0); Mean Corpuscular Volume 89.6 fL (80.0-98.0); Mean Platelet Volume 10.5 fL (9.4-12.4); Platelet Count 180 X10*3/uL (160-400); Red Blood Count 3.96 X10*6/uL (4.60-5.80); Red Cell Distribution Width 13.2 % (11.0-16.0); Venous Blood Gas Refer to POC result; White Blood Count 7.9 X10*3/uL (4.8-10.8)
--- NOTE | 2023-12-09 06:00 | ECG_ITS ---
Test Reason : overdose Blood Pressure : / mmHG Vent. Rate : 073 BPM Atrial Rate : 073 BPM P-R Int : 138 ms QRS Dur : 092 ms QT Int : 412 ms P-R-T Axes : 042 021 015 degrees QTc Int : 453 ms Normal sinus rhythm Normal ECG When compared with ECG of 09-DEC-2023 03:50, No significant change was found Referred By: Nereida Yee Electronically Signed By:ALEXIS BRANDT MD
[2023-12-09] MEDS: Lactated Ringers 1,000 ML 999 ML IV (06:11)
[2023-12-09 06:14] LABS: Anion Gap 15 (12-20); Blood Urea Nitrogen 14 mg/dL (9-16); Calcium 8.7 mg/dL (8.4-10.2); Carbon Dioxide 24 mmol/L (22-29); Chloride 106 mmol/L (96-108); Creatinine Clr Calc Pharmacy 104.9; Estimated Glomerular Filt Rate > 60; Glucose Random 131 mg/dL (60-115); Magnesium 2.5 mg/dL (1.6-2.6); Potassium 4.1 mmol/L (3.3-5.1); Sodium 141 mmol/L (135-145)
[2023-12-09 06:19] LABS: Acetaminophen LAB < 3 mcg/mL (<30); Salicylate < 5.0 mg/dL (15-30)
[2023-12-09 06:20] LABS: ~Lactic Acid-LAB USE ONLY 1.5 mmol/L (0.5-2.0)
[2023-12-09 06:20] LABS: VBG Base Excess 3.9 mmol/L; VBG HCO3 27 mmol/L (22-26); VBG pCO2 35 mmHg; VBG pH 7.48 (7.32-7.43); VBG pO2 86 mmHg
[2023-12-09] MEDS: Acetaminophen 325 MG TABLET 650 MG PO (06:25)
[2023-12-09] MEDS: LORazepam 1 MG TABLET 2 MG PO ×2 (06:33→10:48)
--- NOTE | 2023-12-09 09:45 | MHC.CM.PN ---
Addendum entered by Chiquita Clark 12/09/23 10:35: Pt PCP is: [facility], in [place] Original Note: Pt was residing in a drug, mental health treatment program, [facility]. He said his DCP is to go to [facility] program for 30 days and then return to [facility]. Pt. said he has no home health care or DME, but that he needs it, and that he can barely walk, that his body is broken. HCP discussed, pt. declined to complete one. DCP: to include CARE team eval and input. CM to follow and assist with DC planning.
--- NOTE | 2023-12-09 10:02 | PHA.MEDREC ---
Pharmacy Consult ? Medication Reconciliation Pharmacy has completed the medication reconciliation. Went and spoke to patient and he was able to confirm some of his medications but he started getting a bit lethargic and getting a bit agitated when asking about specific dosing and fell asleep. Came back a little while later and confirmed the rest of his medications. Patient confirmed he is taking Suboxone 8-2mg TID @0800, 1200 and 1700. He stated he took his medications yesterday.
--- NOTE | 2023-12-09 10:07 | PHA.MEDREC ---
Pharmacy Consult ? Medication Reconciliation Pharmacy has completed the medication reconciliation. Went and spoke to patient and he was able to confirm some of his medications but he started getting a bit lethargic and getting a bit agitated when asking about specific dosing and fell asleep. I called [facility] pharmacy to confirm ih he has filled recently there and they stated he has not filled there since 02/2023 there and they ended up transferring those over to [place] [facility] in [place]. Called [facility] to see if patient had filled there recently and they state he has not filled since 04/2023. Came back a little while later and confirmed the rest of his medications. Patient confirmed he is taking Suboxone 8-2mg TID @0800, 1200 and 1700. He stated he took his medications yesterday and he is filling at a pharmacy in [place] and he was not sure as of right now what pharmacy due to him being lethargic still.
[2023-12-09] MEDS: Lactated Ringers 1,000 ML 125 ML IVCONT ×2 (10:28→19:51)
[2023-12-09] MEDS: Enoxaparin Sodium 40 MG/0.4 ML SYRINGE SUBCUT (10:32)
[2023-12-09] MEDS: Buprenorphine/Naloxone 8/2 mg FILM 1 FILM SUBLINGUAL ×2 (12:08→16:46)
[2023-12-09] MEDS: LORazepam 2 MG/ML VIAL IVPUSH ×3 (13:54→21:32)
--- NOTE | 2023-12-09 15:05 | HO.PM.IMPN ---
Subjective Subjective Date of Service: 12/09/23 Interval History: Irritable tremulous. When queried, states drinks 1 L of vodka a day for the last 6 weeks. No overt seizures Review of Systems Denies chest pain Denies shortness of breath Denies nausea vomiting diarrhea Denies fever chills Physical Exam Vital Signs: Vital Signs: Last Vital Signs Temp 97.7 F 12/09/23 11:48 Pulse 75 12/09/23 11:48 Resp 18 12/09/23 11:48 BP 123/69 12/09/23 11:48 Pulse Ox 94 12/09/23 11:48 O2 Del Method Room Air 12/09/23 11:48 BMI result Body Mass Index 30.8 Const: Other: Awake alert somewhat tremulous but no acute distress Resp: Other: Clear to auscultation bilaterally no rales rhonchi or wheezes Cardio: Other: No S4; positive S1-S2; no S3 murmurs rubs or gallops GI: Other: Soft nontender nondistended normoactive bowel sounds Neuro: Other: Cranial nerves 2-12 grossly intact as tolerated. Motor 5/5 all extremities. Sensation is intact. Cognition appropriate Extrem: Other: No edema bilaterally Objective Data Active Medications Acetaminophen (Acetaminophen 325 Mg Tablet) 650 mg PO Q6H PRN PRN Reason: Pain, Mild (Pain Scale 1-3), fever or headache Last Admin: 12/09/23 06:25 Dose: 650 mg Documented By: PADDY Buprenorphine/Naloxone (Buprenorphine/Naloxone 8/2 Mg Film) 1 film SUBLINGUAL TID@0800,1200,1700 [facility] Last Admin: 12/09/23 12:08 Dose: 1 film Documented By: FITO Bupropion HCl (Bupropion Hcl Xl 150 Mg Tab.Er.24h) 150 mg PO DAILY [facility] Bupropion HCl (Bupropion Hcl Xl 300 Mg Tab.Er.24h) 300 mg PO DAILY [facility] Calcium Carbonate (Calcium Carbonate 750 Mg Tab.Chew) 750 mg PO Q4H PRN PRN Reason: Heartburn Enoxaparin Sodium (Enoxaparin Sodium 40 Mg/0.4 Ml Syringe) 40 mg SUBCUT Q24H [facility] Last Admin: 12/09/23 10:32 Dose: 40 mg Documented By: GURPREET Gabapentin (Gabapentin 400 Mg Capsule) 800 mg PO TID [facility] Hydroxyzine HCl (Hydroxyzine Hcl 50 Mg Tablet) 50 mg PO TID PRN PRN Reason: Anxiety Lactated Ringer's (Lr) 1,000 mls @ 125 mls/hr IVCONT .Q8H [facility] Last Admin: 12/09/23 10:38 Dose: Not Given Documented By: GURPREET Non-Admin Reason: IV Running Lorazepam (Lorazepam 1 Mg Tablet) 1 mg PO Q4H [facility]; Taper Stop: 12/13/23 15:44 Lorazepam (Lorazepam 2 Mg/Ml Vial) 2 mg IVPUSH Q2H PRN PRN Reason: withdrawl Last Admin: 12/09/23 13:54 Dose: 2 mg Documented By: GURPREET Magnesium Hydroxide (Milk Of Magnesia 30 Ml Oral.Susp) 30 ml PO DAILY PRN PRN Reason: Constipation Melatonin (Melatonin 3 Mg Tablet) 6 mg PO BEDTIME PRN PRN Reason: Insomnia Methocarbamol (Methocarbamol 750 Mg Tablet) 750 mg PO Q8H PRN PRN Reason: pain (scale score 4-6) Methylphenidate HCl (Methylphenidate Hcl 10 Mg Tablet) 10 mg PO BID@0800,1500 [facility] Ondansetron HCl (Ondansetron Hcl 4 Mg/2 Ml Vial) 4 mg IVPUSH Q8H PRN PRN Reason: Nausea and Vomiting Prazosin HCl (Prazosin Hcl 5 Mg Capsule) 5 mg PO BEDTIME [facility]; Protocol Quetiapine Fumarate (Quetiapine Fumarate 50 Mg Tablet) 50 mg PO BID PRN PRN Reason: Panic Attack(S) Senna (Sennosides 8.6 Mg Tablet) 8.6 mg PO BID [facility] Sodium Chloride (0.9 % Sodium Chloride Flush 3 Ml Syringe) 3 ml IVFLUSH QSHIFT [facility] Last Admin: 12/09/23 10:24 Dose: Not Given Documented By: GURPREET Non-Admin Reason: IV Running Thiamine HCl (Thiamine Hcl 100 Mg Tablet) 100 mg PO DAILY [facility] Last Admin: 12/09/23 10:32 Dose: 100 mg Documented By: GURPREET Trazodone HCl (Trazodone Hcl 100 Mg Tablet) 100 mg PO BEDTIME PRN PRN Reason: Insomnia Labs 12/09/23 05:41 12/09/23 05:41 Labs: Laboratory Results - last 24 hr 07/12/08/23 12/08/23 21:53 22:01 23:38 MCV 88.0 MCH 30.9 MCHC 35.2 RDW 12.9 Plt Count 212 MPV 10.6 Immature Gran % (Auto) 0.5 H Neut % (Auto) 83.3 H Lymph % (Auto) 6.3 L [place] % (Auto) 9.1 Eos % (Auto) 0.3 Baso % (Auto) 0.5 Lymph # (Auto) 0.9 L [place] # (Auto) 1.3 H Eos # (Auto) 0.0 Baso # (Auto) 0.1 Abs Immat Gran (auto) 0.07 H Absolute Neuts (auto) 12.2 H Absolute Nucleated RBC 0.000 Nucleated RBC % (auto) 0.0 VBG pH VBG pCO2 VBG pO2 VBG HCO3 VBG O2 Saturation VBG Base Excess Anion Gap 21 H Estim Creat Clear Calc 71.1 Estimated GFR 49 Random Glucose 109 Lactic Acid 2.5 H* Lactic Acid F/U @ 2Hr Calcium 10.2 D Magnesium 2.5 Total Bilirubin 0.4 Direct Bilirubin 0.1 AST 50 H ALT 37 Alkaline Phosphatase 72 Total Creatine Kinase 2073 H Troponin I High Sens 10.8 D Total Protein 7.3 Albumin 4.6 Urine Color Yellow Urine Appearance Clear Urine pH 5.5 Ur Specific [place] 1.025 Urine Protein 30 (1+) H Urine Glucose (UA) Negative Urine Ketones Trace Urine Blood Moderate (2+) H Urine Nitrite Negative Ur Leukocyte Esterase Negative Urine RBC 0-2 Urine WBC 0-5 Ur Squamous Epith Cells 0-2 Urine Bacteria None Seen Hyaline Casts >20 Salicylates < 5.0 L Urine Opiates Screen Not Detected Ur Buprenorphine Scrn Positive H Ur Oxycodone Screen Not Detected Urine Methadone Screen Not Detected Urine Fentanyl Screen Not Detected Acetaminophen < 3 Ur Barbiturates Screen Not Detected Ur Phencyclidine Scrn Not Detected Ur Amphetamines Screen Not Detected U Benzodiazepines Scrn POSITIVE H Urine Cocaine Screen POSITIVE H U Marijuana (THC) Screen Not Detected Ethyl Alcohol < 10 12/08/23 12/09/23 12/09/23 23:41 02:06 05:41 MCV 89.6 MCH 30.8 MCHC 34.4 RDW 13.2 Plt Count 180 MPV 10.5 Immature Gran % (Auto) Neut % (Auto) Lymph % (Auto) [place] % (Auto) Eos % (Auto) Baso % (Auto) Lymph # (Auto) [place] # (Auto) Eos # (Auto) Baso # (Auto) Abs Immat Gran (auto) Absolute Neuts (auto) Absolute Nucleated RBC 0.000 Nucleated RBC % (auto) 0.0 VBG pH 7.41 VBG pCO2 43 VBG pO2 62 VBG HCO3 28 H VBG O2 Saturation 91.0 VBG Base Excess 3.0 Anion Gap 18 15 Estim Creat Clear Calc 91.2 104.9 Estimated GFR > 60 > 60 Random Glucose 133 H 131 H Lactic Acid 3.6 H* Lactic Acid F/U @ 2Hr 1.5 Calcium 9.0 D 8.7 Magnesium 2.5 Total Bilirubin Direct Bilirubin AST ALT Alkaline Phosphatase Total Creatine Kinase 4032 H 4174 H Troponin I High Sens Total Protein Albumin Urine Color Urine Appearance Urine pH Ur Specific [place] Urine Protein Urine Glucose (UA) Urine Ketones Urine Blood Urine Nitrite Ur Leukocyte Esterase Urine RBC Urine WBC Ur Squamous Epith Cells Urine Bacteria Hyaline Casts Salicylates < 5.0 L Urine Opiates Screen Ur Buprenorphine Scrn Ur Oxycodone Screen Urine Methadone Screen Urine Fentanyl Screen Acetaminophen < 3 Ur Barbiturates Screen Ur Phencyclidine Scrn Ur Amphetamines Screen U Benzodiazepines Scrn Urine Cocaine Screen U Marijuana (THC) Screen Ethyl Alcohol 12/09/23 12/09/23 05:49 13:55 MCV MCH MCHC RDW Plt Count MPV Immature Gran % (Auto) Neut % (Auto) Lymph % (Auto) [place] % (Auto) Eos % (Auto) Baso % (Auto) Lymph # (Auto) [place] # (Auto) Eos # (Auto) Baso # (Auto) Abs Immat Gran (auto) Absolute Neuts (auto) Absolute Nucleated RBC Nucleated RBC % (auto) VBG pH 7.48 H VBG pCO2 35 VBG pO2 86 VBG HCO3 27 H VBG O2 Saturation 99.0 VBG Base Excess 3.9 Anion Gap Estim Creat Clear Calc Estimated GFR Random Glucose Lactic Acid Lactic Acid F/U @ 2Hr Calcium Magnesium Total Bilirubin Direct Bilirubin AST ALT Alkaline Phosphatase Total Creatine Kinase 2751 H Troponin I High Sens Total Protein Albumin Urine Color Urine Appearance Urine pH Ur Specific [place] Urine Protein Urine Glucose (UA) Urine Ketones Urine Blood Urine Nitrite Ur Leukocyte Esterase Urine RBC Urine WBC Ur Squamous Epith Cells Urine Bacteria Hyaline Casts Salicylates Urine Opiates Screen Ur Buprenorphine Scrn Ur Oxycodone Screen Urine Methadone Screen Urine Fentanyl Screen Acetaminophen Ur Barbiturates Screen Ur Phencyclidine Scrn Ur Amphetamines Screen U Benzodiazepines Scrn Urine Cocaine Screen U Marijuana (THC) Screen Ethyl Alcohol Assessment and Plan (1) Suicide attempt: Status: Acute (2) Rhabdomyolysis: Status: Acute Plan This is a 53-year-old male with pertinent history of major depressive disorder, cocaine use disorder, alcohol use disorder who was brought to the emergency department for evaluation of intentional overdose after consuming 15 tablets of 300 mg extended release Wellbutrin. Admitted this a.m. to 1 L of vodka daily for 6 weeks 1.Intentional overdose -monitor remains normal sinus rhythm without dysrhythmias -EKG without focal changes -continue to monitor 2.Suicidal attempt -one-to-one sitter -care team consult once medically cleared 3. Rhabdomyolysis -CKs trending downward -continue volume repletion -follow renals/divalents 4. Alcohol withdrawal -CIWA scale -Ativan protocol given adverse reaction to phenobarb -addiction Medicine consult when appropriate Lovenox Full code Requires ongoing hospitalization to treat alcohol withdrawal with IV Ativan and to treat rhabdomyolysis with volume repletion Admit as inpatient and will require two night minimum hospital stay for close monitoring of hemodynamics, monitoring of kidney function (as above), which is not possible in a lesser acute setting. Quality Stroke Does the patient have a stroke diagnosis?: No VTE Prior VTE?: No VTE Risk Level:: Medical - moderate - high VTE Device Contraindication: Treatment Not Indicated VTE Drug Contraindication: N/A - Med Ordered
[2023-12-09] MEDS: Methylphenidate HCl 10 MG TABLET PO (16:45)
[2023-12-09] MEDS: Gabapentin 400 MG CAPSULE 800 MG PO ×2 (16:45→19:50)
[2023-12-09] MEDS: LORazepam 1 MG TABLET 0.5 MG PO ×2 (16:45→19:50)
[2023-12-09] MEDS: Sennosides 8.6 MG TABLET PO (19:49)
[2023-12-09] MEDS: Prazosin HCL 5 MG CAPSULE PO (19:50)
[2023-12-09] MEDS: QUEtiapine Fumarate 50 MG TABLET PO (20:01)
[2023-12-09] MEDS: Melatonin 3 MG TABLET 6 MG PO (20:01)
[2023-12-10] VITALS (8 sets, daily range): BP systolic 121–167; BP diastolic 60–105; PULSE 68–96; RESP 17–22; TEMP 36.2–37.1; O2SAT 94–98
--- NOTE | 2023-12-10 | ECG_ITS ---
Test Reason : rhythm check Blood Pressure : / mmHG Vent. Rate : 079 BPM Atrial Rate : 079 BPM P-R Int : 132 ms QRS Dur : 092 ms QT Int : 396 ms P-R-T Axes : 056 011 028 degrees QTc Int : 454 ms Normal sinus rhythm Normal ECG When compared with ECG of 10-DEC-2023 00:13, No significant change was found Referred By: Nereida Yee Electronically Signed By:ALEXIS BRANDT MD
--- NOTE | 2023-12-10 | ECG_ITS ---
Test Reason : CHEST PAIN Blood Pressure : / mmHG Vent. Rate : 076 BPM Atrial Rate : 076 BPM P-R Int : 132 ms QRS Dur : 090 ms QT Int : 402 ms P-R-T Axes : 056 015 024 degrees QTc Int : 452 ms Normal sinus rhythm Normal ECG No previous ECGs available Referred By: Nereida Yee Electronically Signed By:ALEXIS BRANDT MD
[2023-12-10] MEDS: LORazepam 1 MG TABLET 0.5 MG PO ×6 (00:02→21:49)
[2023-12-10] MEDS: 0.9 % Sodium Chloride Flush 3 ML SYRINGE IVFLUSH ×4 (00:04→19:53)
[2023-12-10] MEDS: Lactated Ringers 1,000 ML 125 ML IVCONT (02:39)
[2023-12-10] MEDS: LORazepam 2 MG/ML VIAL IVPUSH ×8 (05:28→23:45)
[2023-12-10 07:38] LABS: MANUAL DIFF FLAG NO
[2023-12-10 07:54] LABS: Basophils Absolute Auto 0.1 X10*3/uL (0.0-0.2); Basophils Percent Auto 1.1 % (0-2); Eosinophils Absolute Auto 0.2 X10*3/uL (0.0-0.4); Eosinophils Percent Auto 4.8 % (0-4); Hematocrit 34.2 % (42.0-52.0); Hemoglobin 11.5 g/dl (14.0-18.0); Imm Gran Abs Auto 0.03 X10*3/uL (0.00-0.03); Imm Gran Pct Auto 0.7 % (0.0-0.4); Lymphocytes Absolute Auto 1.3 X10*3/uL (1.2-4.9); Mean Corpuscular HGB Conc 33.6 g/dl (31.0-36.0); Mean Corpuscular Hemoglobin 30.1 pg (27.0-33.0); Mean Corpuscular Volume 89.5 fL (80.0-98.0); Mean Platelet Volume 10.6 fL (9.4-12.4); Monocytes Absolute Auto 0.5 X10*3/uL (0.1-1.2); Monocytes Percent Auto 10.6 % (2-11); Neutrophils Absolute Auto 2.4 x10*3/uL (2.0-8.3); Neutrophils Percent Auto 53.8 % (45-73); Platelet Count 165 X10*3/uL (160-400); Red Blood Count 3.82 X10*6/uL (4.60-5.80); Red Cell Distribution Width 13.1 % (11.0-16.0); White Blood Count 4.4 X10*3/uL (4.8-10.8)
[2023-12-10 08:09] LABS: Alanine Aminotransferase 36 U/L (0-40); Albumin Level 3.5 g/dL (3.5-5.0); Alkaline Phosphatase 60 U/L (39-117); Anion Gap 13 (12-20); Aspartate Amino Transferase 50 U/L (5-37); Bilirubin Total 0.2 mg/dL (0.0-1.0); Blood Urea Nitrogen 10 mg/dL (9-16); Calcium 8.5 mg/dL (8.4-10.2); Carbon Dioxide 26 mmol/L (22-29); Chloride 107 mmol/L (96-108); Creatinine Clr Calc Pharmacy 143.6; Estimated Glomerular Filt Rate > 60; Glucose Fasting 117 mg/dL (60-99); Potassium 4.3 mmol/L (3.3-5.1); Sodium 142 mmol/L (135-145); Total Protein 5.3 g/dL (6.5-8.0)
[2023-12-10] MEDS: Methylphenidate HCl 10 MG TABLET PO ×2 (08:26→14:21)
[2023-12-10] MEDS: Gabapentin 400 MG CAPSULE 800 MG PO ×3 (08:26→19:50)
[2023-12-10] MEDS: Sennosides 8.6 MG TABLET PO ×2 (08:26→19:50)
[2023-12-10] MEDS: buPROPion HCl XL 150 MG TAB.ER.24H PO (08:26)
[2023-12-10] MEDS: Buprenorphine/Naloxone 8/2 mg FILM 1 FILM SUBLINGUAL ×3 (08:27→17:20)
[2023-12-10] MEDS: buPROPion HCl XL 300 MG TAB.ER.24H PO (08:27)
[2023-12-10] MEDS: Thiamine HCL 100 MG TABLET PO (08:27)
[2023-12-10] MEDS: Enoxaparin Sodium 40 MG/0.4 ML SYRINGE SUBCUT (08:27)
[2023-12-10] MEDS: hydrOXYzine HCL 50 MG TABLET PO ×2 (11:49→19:50)
--- NOTE | 2023-12-10 12:44 | P.PNIM_ITS ---
Subjective Subjective Date of Service: 12/10/23 Interval History: Still with withdrawal symptoms but IV Ativan is sufficient. No seizures noted Review of Systems Denies chest pain Denies shortness of breath Denies nausea vomiting diarrhea Denies fever chills Physical Exam 2 Vital Signs: Vital Signs: Last Vital Signs Temp 97.8 F 12/10/23 11:28 Pulse 79 12/10/23 11:28 Resp 18 12/10/23 11:28 BP 137/71 12/10/23 11:28 Pulse Ox 94 12/10/23 11:28 O2 Del Method Room Air 12/10/23 11:28 BMI result Body Mass Index 30.8 Const: Other: Awake alert somewhat tremulous but no acute distress Resp: Other: Clear to auscultation bilaterally no rales rhonchi or wheezes Cardio: Other: No S4; positive S1-S2; no S3 murmurs rubs or gallops GI: Other: Soft nontender nondistended normoactive bowel sounds Neuro: Other: Cranial nerves 2-12 grossly intact as tolerated. Motor 5/5 all extremities. Sensation is intact. Cognition appropriate Extrem: Other: No edema bilaterally Objective Data Active Medications Acetaminophen (Acetaminophen 325 Mg Tablet) 650 mg PO Q6H PRN PRN Reason: Pain, Mild (Pain Scale 1-3), fever or headache Last Admin: 12/09/23 06:25 Dose: 650 mg Documented By: PADDY Buprenorphine/Naloxone (Buprenorphine/Naloxone 8/2 Mg Film) 1 film SUBLINGUAL TID@0800,1200,1700 [facility] Last Admin: 12/10/23 11:49 Dose: 1 film Documented By: MADELYN Bupropion HCl (Bupropion Hcl Xl 150 Mg Tab.Er.24h) 150 mg PO DAILY [facility] Last Admin: 12/10/23 08:26 Dose: 150 mg Documented By: MADELYN Bupropion HCl (Bupropion Hcl Xl 300 Mg Tab.Er.24h) 300 mg PO DAILY [facility] Last Admin: 12/10/23 08:27 Dose: 300 mg Documented By: MADELYN Calcium Carbonate (Calcium Carbonate 750 Mg Tab.Chew) 750 mg PO Q4H PRN PRN Reason: Heartburn Enoxaparin Sodium (Enoxaparin Sodium 40 Mg/0.4 Ml Syringe) 40 mg SUBCUT Q24H [facility] Last Admin: 12/10/23 08:27 Dose: 40 mg Documented By: MADELYN Gabapentin (Gabapentin 400 Mg Capsule) 800 mg PO TID [facility] Last Admin: 12/10/23 08:26 Dose: 800 mg Documented By: MADELYN Hydroxyzine HCl (Hydroxyzine Hcl 50 Mg Tablet) 50 mg PO TID PRN PRN Reason: Anxiety Last Admin: 12/10/23 11:49 Dose: 50 mg Documented By: MADELYN Lactated Ringer's (Lr) 1,000 mls @ 125 mls/hr IVCONT .Q8H [facility] Last Admin: 12/10/23 11:46 Dose: Not Given Documented By: MADELYN Non-Admin Reason: Patient Refused Lorazepam (Lorazepam 1 Mg Tablet) 1 mg PO Q4H [facility]; Taper Stop: 12/13/23 15:44 Last Admin: 12/10/23 11:48 Dose: 1 mg Documented By: MADELYN Lorazepam (Lorazepam 2 Mg/Ml Vial) 2 mg IVPUSH Q2H PRN PRN Reason: withdrawl Last Admin: 12/10/23 12:32 Dose: 2 mg Documented By: MADELYN Magnesium Hydroxide (Milk Of Magnesia 30 Ml Oral.Susp) 30 ml PO DAILY PRN PRN Reason: Constipation Melatonin (Melatonin 3 Mg Tablet) 6 mg PO BEDTIME PRN PRN Reason: Insomnia Last Admin: 12/09/23 20:01 Dose: 6 mg Documented By: RASHAD Methocarbamol (Methocarbamol 750 Mg Tablet) 750 mg PO Q8H PRN PRN Reason: pain (scale score 4-6) Methylphenidate HCl (Methylphenidate Hcl 10 Mg Tablet) 10 mg PO BID@0800,1500 [facility] Last Admin: 12/10/23 08:26 Dose: 10 mg Documented By: MADELYN Ondansetron HCl (Ondansetron Hcl 4 Mg/2 Ml Vial) 4 mg IVPUSH Q8H PRN PRN Reason: Nausea and Vomiting Prazosin HCl (Prazosin Hcl 5 Mg Capsule) 5 mg PO BEDTIME [facility]; Protocol Last Admin: 12/09/23 19:50 Dose: 5 mg Documented By: RASHAD Quetiapine Fumarate (Quetiapine Fumarate 50 Mg Tablet) 50 mg PO BID PRN PRN Reason: Panic Attack(S) Last Admin: 12/09/23 20:01 Dose: 50 mg Documented By: RASHAD Senna (Sennosides 8.6 Mg Tablet) 8.6 mg PO BID [facility] Last Admin: 12/10/23 08:26 Dose: 8.6 mg Documented By: MADELYN Sodium Chloride (0.9 % Sodium Chloride Flush 3 Ml Syringe) 3 ml IVFLUSH QSHIFT [facility] Last Admin: 12/10/23 10:19 Dose: 3 ml Documented By: MADELYN Thiamine HCl (Thiamine Hcl 100 Mg Tablet) 100 mg PO DAILY [facility] Last Admin: 12/10/23 08:27 Dose: 100 mg Documented By: MADELYN Trazodone HCl (Trazodone Hcl 100 Mg Tablet) 100 mg PO BEDTIME PRN PRN Reason: Insomnia Labs 12/10/23 07:32 12/10/23 07:32 Labs: Laboratory Results - last 24 hr 12/09/23 12/09/23 12/10/23 13:55 15:41 07:32 MCV 89.5 MCH 30.1 MCHC 33.6 RDW 13.1 Plt Count 165 MPV 10.6 Immature Gran % (Auto) 0.7 H Neut % (Auto) 53.8 Lymph % (Auto) 29.0 [place] % (Auto) 10.6 Eos % (Auto) 4.8 H Baso % (Auto) 1.1 Lymph # (Auto) 1.3 [place] # (Auto) 0.5 Eos # (Auto) 0.2 Baso # (Auto) 0.1 Abs Immat Gran (auto) 0.03 Absolute Neuts (auto) 2.4 Absolute Nucleated RBC 0.000 Nucleated RBC % (auto) 0.0 Anion Gap 13 Estim Creat Clear Calc 143.6 Estimated GFR > 60 Fasting Glucose 117 H Calcium 8.5 Total Bilirubin 0.2 AST 50 H ALT 36 Alkaline Phosphatase 60 Total Creatine Kinase 2751 H 2480 H Total Protein 5.3 L Albumin 3.5 Assessment and Plan (1) Rhabdomyolysis: Status: Acute Plan This is a 53-year-old male with pertinent history of major depressive disorder, cocaine use disorder, alcohol use disorder who was brought to the emergency department for evaluation of intentional overdose after consuming 15 tablets of 300 mg extended release Wellbutrin. Admitted this a.m. to 1 L of vodka daily for 6 weeks 1.Intentional overdose -monitor remains normal sinus rhythm without dysrhythmias -EKG without focal changes -continue to monitor 2.Suicidal attempt -one-to-one sitter -care team consult once medically cleared 3. Rhabdomyolysis -CKs trending downward -continue volume repletion -follow renals/divalents 4. Alcohol withdrawal -CIWA scale -Ativan protocol given adverse reaction to phenobarb -addiction Medicine consult when appropriate Lovenox Full code Requires ongoing hospitalization to treat alcohol withdrawal with IV Ativan and to treat rhabdomyolysis with volume repletion Admit as inpatient and will require two night minimum hospital stay for close monitoring of hemodynamics, monitoring of kidney function (as above), which is not possible in a lesser acute setting. Quality Stroke Does the patient have a stroke diagnosis?: No VTE Prior VTE?: No VTE Risk Level:: Medical - moderate - high VTE Device Contraindication: Treatment Not Indicated VTE Drug Contraindication: N/A - Med Ordered
--- NOTE | 2023-12-10 13:22 | MHC.CM.PN ---
Pt requiring continued acute care treatment with IV medication. CARE team to eval when he is medically cleared to help determine DC plan.
--- NOTE | 2023-12-10 13:45 | MHC.RECOVRN ---
Met with pt in 460 after consult placed to Addiction Medicine for alcohol and cocaine use disorder. Pt had presented to the ED after intentional overdose of 15 300 mg extended release Wellbutrin, crack cocaine use, alcohol use, SI/HI. Upon evaluation, pt admitted for IVONNE, intentional overdose, and suicide attempt. Pt currently receiving Ativan for alcohol withdrawal due to allergy/adverse reaction to phenobarbital. Pt reports alcohol use, 1 liter vodka daily x 1 month. Pt reports cocaine use, INH, $200 over 24 hours [employer]. Prior to that pts last use was in August. Pt reports currently on Suboxone for hip pain, prescribed from [facility]. Reports being on Suboxone x 1 year. Pt reports he had been in treatment at [facility] from Apr 2023-August 2023. Pt had a recurrence at that time and since has been to [facility] and [facility]. Pts goal is to eventually return to [facility]. Pt reports longest time in recovery has been 10 years, [id number]. During this time pt reports utilizing AA, NA, family/Dad, and support network. Pt reports father and recurrence came soon after. Pt reports he does well when engaged with AA. He does have a sponsor. Pt reports he has tried acamprosate in the past, had discontinued it due to GI upset. Pt reports he has also tried disulfiram in the past but had a reaction due to something he was cooking with and also discontinued that medication. Discussed recovery resources and supports, pt hopes to be admitted to behavioral health and then continue on to [facility], [facility], and [facility]. Pt plans to keep in touch with his sponsor and engage in 12 step meetings. Pt provided written recovery resources as well as t/w contact information if needed. Denies questions or concerns for t/w. Discussed with Mag Cano APRN.
[2023-12-10] MEDS: Nicotine Polacrilex 2 MG GUM BUCCAL (14:21)
[2023-12-10] MEDS: QUEtiapine Fumarate 50 MG TABLET PO (19:50)
[2023-12-10] MEDS: traZODone HCL 100 MG TABLET PO (19:51)
[2023-12-10] MEDS: Prazosin HCL 5 MG CAPSULE PO (19:51)
[2023-12-11] MEDS: LORazepam 2 MG/ML VIAL IVPUSH ×9 (01:45→22:28)
[2023-12-11] MEDS: LORazepam 1 MG TABLET 0.5 MG PO ×3 (03:55→15:39)
[2023-12-11 04:00] VITALS: BP 140/65; PULSE 64; RESP 16; O2SAT 94
[2023-12-11 06:42] LABS: MANUAL DIFF FLAG NO
[2023-12-11 06:56] LABS: Basophils Absolute Auto 0.1 X10*3/uL (0.0-0.2); Basophils Percent Auto 1.3 % (0-2); Eosinophils Absolute Auto 0.2 X10*3/uL (0.0-0.4); Eosinophils Percent Auto 4.5 % (0-4); Hematocrit 36.9 % (42.0-52.0); Hemoglobin 12.4 g/dl (14.0-18.0); Imm Gran Abs Auto 0.01 X10*3/uL (0.00-0.03); Imm Gran Pct Auto 0.2 % (0.0-0.4); Lymphocytes Absolute Auto 1.6 X10*3/uL (1.2-4.9); Lymphocytes Percent Auto 34.7 % (20-40); Mean Corpuscular HGB Conc 33.6 g/dl (31.0-36.0); Mean Corpuscular Hemoglobin 30.3 pg (27.0-33.0); Mean Corpuscular Volume 90.2 fL (80.0-98.0); Mean Platelet Volume 10.7 fL (9.4-12.4); Monocytes Absolute Auto 0.6 X10*3/uL (0.1-1.2); Monocytes Percent Auto 13.7 % (2-11); Neutrophils Absolute Auto 2.1 x10*3/uL (2.0-8.3); Neutrophils Percent Auto 45.6 % (45-73); Platelet Count 171 X10*3/uL (160-400); Red Blood Count 4.09 X10*6/uL (4.60-5.80); Red Cell Distribution Width 13.2 % (11.0-16.0); White Blood Count 4.7 X10*3/uL (4.8-10.8)
[2023-12-11 07:07] LABS: Alanine Aminotransferase 36 U/L (0-40); Albumin Level 3.7 g/dL (3.5-5.0); Alkaline Phosphatase 73 U/L (39-117); Anion Gap 16 (12-20); Aspartate Amino Transferase 33 U/L (5-37); Bilirubin Total 0.2 mg/dL (0.0-1.0); Blood Urea Nitrogen 12 mg/dL (9-16); Calcium 9.1 mg/dL (8.4-10.2); Carbon Dioxide 24 mmol/L (22-29); Chloride 107 mmol/L (96-108); Creatinine Clr Calc Pharmacy 121.2; Estimated Glomerular Filt Rate > 60; Glucose Fasting 101 mg/dL (60-99); Potassium 4.1 mmol/L (3.3-5.1); Sodium 143 mmol/L (135-145); Total Protein 6.1 g/dL (6.5-8.0)
[2023-12-11 07:49] VITALS: BP 135/75; PULSE 60; RESP 18; TEMP 36.9; O2SAT 96
[2023-12-11] MEDS: buPROPion HCl XL 300 MG TAB.ER.24H PO (09:16)
[2023-12-11] MEDS: buPROPion HCl XL 150 MG TAB.ER.24H PO (09:16)
[2023-12-11] MEDS: Methylphenidate HCl 10 MG TABLET PO ×2 (09:17→14:49)
[2023-12-11] MEDS: 0.9 % Sodium Chloride Flush 3 ML SYRINGE IVFLUSH ×3 (09:17→19:37)
[2023-12-11] MEDS: Enoxaparin Sodium 40 MG/0.4 ML SYRINGE SUBCUT (09:17)
[2023-12-11] MEDS: Buprenorphine/Naloxone 8/2 mg FILM 1 FILM SUBLINGUAL ×3 (09:17→17:26)
[2023-12-11] MEDS: Thiamine HCL 100 MG TABLET PO (09:17)
[2023-12-11] MEDS: Sennosides 8.6 MG TABLET PO ×2 (09:17→19:36)
[2023-12-11] MEDS: Gabapentin 400 MG CAPSULE 800 MG PO ×3 (09:17→19:36)
[2023-12-11 11:35] VITALS: BP 148/67; PULSE 75; RESP 18; TEMP 36.7; O2SAT 98
[2023-12-11 16:00] VITALS: BP 160/78; PULSE 80; RESP 20; TEMP 36.3; O2SAT 98
--- NOTE | 2023-12-11 16:08 | HO.PM.IMPN ---
Subjective Subjective Date of Service: 12/11/23 Interval History: Seen and examined this morning Follow-up for intentional suicide attempt with Wellbutrin overdose No evidence of alcohol withdrawal Feeling well, no specific complaints Review of Systems Review of Systems: Yes all other systems are reviewed and are negative Constitutional Constitutional: Denies chills and Denies fever(s) Cardiovascular Cardiovascular: Denies chest pain, Denies palpitations and Denies dyspnea Respiratory Respiratory: Denies cough and Denies dyspnea Endocrine Endocrine: Denies palpitations Physical Exam Vital Signs: Vital Signs: Last Vital Signs Temp 98.0 F 12/11/23 11:35 Pulse 75 12/11/23 11:35 Resp 18 12/11/23 11:35 BP 148/67 H 12/11/23 11:35 Pulse Ox 98 12/11/23 11:35 O2 Del Method Room Air 12/11/23 11:35 BMI result Body Mass Index 30.8 Const: General: cooperative, comfortable, no acute distress, alert and awake Nutritional Appearance: average body habitus Orientation/consciousness: patient oriented x3 Resp: Effort & Inspection: normal respiratory effort, able to speak in complete sentences, no respiratory distress and no use of accessory muscles Cardio: Rate: regular rate GI: Inspection: No distended Palpation (GI): Soft to palpation and nontender Neuro: General: patient oriented x3, moves all extremities and CN's II-XI intact bilaterally Extrem: General: Yes no pedal edema Objective Data Active Medications Acetaminophen (Acetaminophen 325 Mg Tablet) 650 mg PO Q6H PRN PRN Reason: Pain, Mild (Pain Scale 1-3), fever or headache Last Admin: 12/09/23 06:25 Dose: 650 mg Documented By: PADDY Buprenorphine/Naloxone (Buprenorphine/Naloxone 8/2 Mg Film) 1 film SUBLINGUAL TID@0800,1200,1700 [facility] Last Admin: 12/11/23 12:32 Dose: 1 film Documented By: MIGNON Bupropion HCl (Bupropion Hcl Xl 150 Mg Tab.Er.24h) 150 mg PO DAILY [facility] Last Admin: 12/11/23 09:16 Dose: 150 mg Documented By: MIGNON Bupropion HCl (Bupropion Hcl Xl 300 Mg Tab.Er.24h) 300 mg PO DAILY [facility] Last Admin: 12/11/23 09:16 Dose: 300 mg Documented By: MIGNON Calcium Carbonate (Calcium Carbonate 750 Mg Tab.Chew) 750 mg PO Q4H PRN PRN Reason: Heartburn Enoxaparin Sodium (Enoxaparin Sodium 40 Mg/0.4 Ml Syringe) 40 mg SUBCUT Q24H [facility] Last Admin: 12/11/23 09:17 Dose: 40 mg Documented By: MIGNON Gabapentin (Gabapentin 400 Mg Capsule) 800 mg PO TID FOUZIA Last Admin: 12/11/23 14:49 Dose: 800 mg Documented By: SHRAVAN Hydroxyzine HCl (Hydroxyzine Hcl 50 Mg Tablet) 50 mg PO TID PRN PRN Reason: Anxiety Last Admin: 12/10/23 19:50 Dose: 50 mg Documented By: JAMI Lorazepam (Lorazepam 1 Mg Tablet) 0.5 mg PO Q6H [facility]; Taper Stop: 12/13/23 15:44 Last Admin: 12/11/23 15:39 Dose: 0.5 mg Documented By: MIGNON Lorazepam (Lorazepam 2 Mg/Ml Vial) 2 mg IVPUSH Q2H PRN PRN Reason: withdrawl Last Admin: 12/11/23 14:49 Dose: 2 mg Documented By: SHRAVAN Magnesium Hydroxide (Milk Of Magnesia 30 Ml Oral.Susp) 30 ml PO DAILY PRN PRN Reason: Constipation Melatonin (Melatonin 3 Mg Tablet) 6 mg PO BEDTIME PRN PRN Reason: Insomnia Last Admin: 12/09/23 20:01 Dose: 6 mg Documented By: RASHAD Methocarbamol (Methocarbamol 750 Mg Tablet) 750 mg PO Q8H PRN PRN Reason: pain (scale score 4-6) Methylphenidate HCl (Methylphenidate Hcl 10 Mg Tablet) 10 mg PO BID@0800,1500 [facility] Last Admin: 12/11/23 14:49 Dose: 10 mg Documented By: SHRAVAN Nicotine Polacrilex (Nicotine Polacrilex 2 Mg Gum) 2 mg BUCCAL Q1H PRN PRN Reason: tobacco withdraw Last Admin: 12/10/23 14:21 Dose: 2 mg Documented By: MADELYN Ondansetron HCl (Ondansetron Hcl 4 Mg/2 Ml Vial) 4 mg IVPUSH Q8H PRN PRN Reason: Nausea and Vomiting Prazosin HCl (Prazosin Hcl 5 Mg Capsule) 5 mg PO BEDTIME [facility]; Protocol Last Admin: 12/10/23 19:51 Dose: 5 mg Documented By: JAMI Quetiapine Fumarate (Quetiapine Fumarate 50 Mg Tablet) 50 mg PO BID PRN PRN Reason: Panic Attack(S) Last Admin: 12/10/23 19:50 Dose: 50 mg Documented By: JAMI Senna (Sennosides 8.6 Mg Tablet) 8.6 mg PO BID [facility] Last Admin: 12/11/23 09:17 Dose: 8.6 mg Documented By: MIGNON Sodium Chloride (0.9 % Sodium Chloride Flush 3 Ml Syringe) 3 ml IVFLUSH QSHIFT [facility] Last Admin: 12/11/23 09:17 Dose: 3 ml Documented By: MIGNON Thiamine HCl (Thiamine Hcl 100 Mg Tablet) 100 mg PO DAILY [facility] Last Admin: 12/11/23 09:17 Dose: 100 mg Documented By: MIGNON Trazodone HCl (Trazodone Hcl 100 Mg Tablet) 100 mg PO BEDTIME PRN PRN Reason: Insomnia Last Admin: 12/10/23 19:51 Dose: 100 mg Documented By: JAMI Labs 12/11/23 06:02 12/11/23 06:02 Labs: Laboratory Results - last 24 hr 12/11/23 06:02 MCV 90.2 MCH 30.3 MCHC 33.6 RDW 13.2 Plt Count 171 MPV 10.7 Immature Gran % (Auto) 0.2 Neut % (Auto) 45.6 Lymph % (Auto) 34.7 [place] % (Auto) 13.7 H Eos % (Auto) 4.5 H Baso % (Auto) 1.3 Lymph # (Auto) 1.6 [place] # (Auto) 0.6 Eos # (Auto) 0.2 Baso # (Auto) 0.1 Abs Immat Gran (auto) 0.01 Absolute Neuts (auto) 2.1 Absolute Nucleated RBC 0.000 Nucleated RBC % (auto) 0.0 Anion Gap 16 Estim Creat Clear Calc 121.2 Estimated GFR > 60 Fasting Glucose 101 H Calcium 9.1 D Total Bilirubin 0.2 AST 33 ALT 36 Alkaline Phosphatase 73 Total Protein 6.1 L Albumin 3.7 Assessment and Plan (1) IVONNE (acute kidney injury): Status: Acute (2) Rhabdomyolysis: Status: Acute (3) Intentional overdose: Status: Acute Plan This is a 53-year-old male with pertinent history of major depressive disorder, cocaine use disorder, alcohol use disorder who was brought to the emergency department for evaluation of intentional overdose after consuming 15 tablets of 300 mg extended release Wellbutrin. Admitted this a.m. to 1 L of vodka daily for 6 weeks Intentional overdose monitor remains normal sinus rhythm without dysrhythmias EKG without focal changes Suicidal attempt one-to-one sitter seen by care team - plan for inpatient psych treatment- bed search Rhabdomyolysis CPK trending downward Alcohol withdrawal ciwa low Ativan protocol given adverse reaction to phenobarb seen by addiction Medicine ?h/o opioid use d/o due to chronic hip pain on suboxone Lovenox Full code Requires ongoing hospitalization to treat alcohol withdrawal with IV Ativan and to treat rhabdomyolysis with volume repletion Admit as inpatient and will require two night minimum hospital stay for close monitoring of hemodynamics, monitoring of kidney function (as above), which is not possible in a lesser acute setting. Quality Stroke Does the patient have a stroke diagnosis?: No VTE Prior VTE?: No VTE Risk Level:: Medical - moderate - high VTE Device Contraindication: Treatment Not Indicated VTE Drug Contraindication: N/A - Med Ordered
[2023-12-11] MEDS: Melatonin 3 MG TABLET 6 MG PO (19:36)
[2023-12-11] MEDS: QUEtiapine Fumarate 50 MG TABLET PO (19:36)
[2023-12-11] MEDS: hydrOXYzine HCL 50 MG TABLET PO (19:36)
[2023-12-11] MEDS: Prazosin HCL 5 MG CAPSULE PO (19:36)
[2023-12-11] MEDS: traZODone HCL 100 MG TABLET PO (19:40)
[2023-12-11 20:00] VITALS: BP 153/80; PULSE 80; TEMP 36.6; O2SAT 96
[2023-12-11 23:37] VITALS: BP 114/57; RESP 18; TEMP 36.9; O2SAT 94
[2023-12-12] MEDS: LORazepam 1 MG TABLET 0.5 MG PO (00:58)
[2023-12-12] MEDS: LORazepam 2 MG/ML VIAL IVPUSH ×3 (02:40→10:17)
[2023-12-12 04:00] VITALS: BP 109/56; PULSE 72; RESP 18; TEMP 36.4; O2SAT 95
[2023-12-12 07:50] VITALS: BP 116/58; PULSE 66; RESP 20; TEMP 37; O2SAT 96
[2023-12-12] MEDS: Methylphenidate HCl 10 MG TABLET PO ×2 (07:53→14:44)
[2023-12-12] MEDS: buPROPion HCl XL 150 MG TAB.ER.24H PO (07:53)
[2023-12-12] MEDS: Gabapentin 400 MG CAPSULE 800 MG PO ×2 (07:53→14:44)
[2023-12-12] MEDS: buPROPion HCl XL 300 MG TAB.ER.24H PO (07:54)
[2023-12-12] MEDS: Buprenorphine/Naloxone 8/2 mg FILM 1 FILM SUBLINGUAL ×2 (07:54→12:16)
[2023-12-12] MEDS: Sennosides 8.6 MG TABLET PO (07:54)
[2023-12-12] MEDS: Thiamine HCL 100 MG TABLET PO (07:54)
[2023-12-12] MEDS: Enoxaparin Sodium 40 MG/0.4 ML SYRINGE SUBCUT (07:55)
[2023-12-12] MEDS: 0.9 % Sodium Chloride Flush 3 ML SYRINGE IVFLUSH (07:56)
[2023-12-12 09:08] LABS: MANUAL DIFF FLAG NO
[2023-12-12 09:11] LABS: Basophils Absolute Auto 0.1 X10*3/uL (0.0-0.2); Basophils Percent Auto 0.8 % (0-2); Eosinophils Absolute Auto 0.2 X10*3/uL (0.0-0.4); Eosinophils Percent Auto 2.8 % (0-4); Hematocrit 35.8 % (42.0-52.0); Hemoglobin 12.4 g/dl (14.0-18.0); Imm Gran Abs Auto 0.04 X10*3/uL (0.00-0.03); Imm Gran Pct Auto 0.5 % (0.0-0.4); Lymphocytes Absolute Auto 1.4 X10*3/uL (1.2-4.9); Lymphocytes Percent Auto 18.3 % (20-40); Mean Corpuscular HGB Conc 34.6 g/dl (31.0-36.0); Mean Corpuscular Hemoglobin 30.9 pg (27.0-33.0); Mean Corpuscular Volume 89.3 fL (80.0-98.0); Mean Platelet Volume 10.4 fL (9.4-12.4); Monocytes Absolute Auto 0.6 X10*3/uL (0.1-1.2); Monocytes Percent Auto 8.1 % (2-11); Neutrophils Absolute Auto 5.2 x10*3/uL (2.0-8.3); Neutrophils Percent Auto 69.5 % (45-73); Platelet Count 188 X10*3/uL (160-400); Red Blood Count 4.01 X10*6/uL (4.60-5.80); Red Cell Distribution Width 13.2 % (11.0-16.0); White Blood Count 7.5 X10*3/uL (4.8-10.8)
[2023-12-12 09:45] LABS: Carbon Dioxide 23 mmol/L (22-29); Chloride 106 mmol/L (96-108); Potassium 4.2 mmol/L (3.3-5.1); Sodium 140 mmol/L (135-145)
[2023-12-12 09:46] LABS: Alanine Aminotransferase 35 U/L (0-40); Albumin Level 3.8 g/dL (3.5-5.0); Alkaline Phosphatase 72 U/L (39-117); Anion Gap 15 (12-20); Aspartate Amino Transferase 21 U/L (5-37); Bilirubin Total 0.2 mg/dL (0.0-1.0); Blood Urea Nitrogen 14 mg/dL (9-16); Estimated Glomerular Filt Rate > 60; Glucose Fasting 155 mg/dL (60-99); Total Protein 6.1 g/dL (6.5-8.0)
--- NOTE | 2023-12-12 11:15 | MHC.CM.PN ---
EMR reviewed and per MD rounds, pt is medically cleared for discharge pending available inpatient psych bed per Care Team.
[2023-12-12 12:00] VITALS: BP 134/66; PULSE 71; RESP 20; TEMP 36.3; O2SAT 93
--- NOTE | 2023-12-12 12:12 | PM.DS ---
DS: Providers Provider Date of Service: 12/12/23 Date of admission: 12/08/23 23:43 Date of discharge: 12/12/23 Primary care physician: Gonzales Rust MD Consults: 12/08/23 23:50 Addiction Medicine Routine Consulting Provider: Addiction Covering Reason for consultation: cocaine and alcohol use disorder Consult for Sitter Routine Reason for consultation: Suicidal attempt 12/11/23 13:51 Consult to Care Team Routine Comment: Reason for consultation: intentional overdose LOC, medically cleared Attending physician on discharge: Ramón Ruelas Discharging clinician: Gabriella Gibson DS: Diagnosis Discharge Diagnosis (1) IVONNE (acute kidney injury): Status: Acute (2) Rhabdomyolysis: Status: Acute (3) Intentional overdose: Status: Acute DS: Summary Hospital Course Hospital Course: From H&P on the day of admission This is a 53-year-old male with pertinent history of major depressive disorder, cocaine use disorder, alcohol use disorder who was brought to the emergency department for evaluation of intentional overdose after consuming 15 tablets of 300 mg extended release Wellbutrin. Patient states he was feeling very low on the day of presentation and intentionally consumed all his Wellbutrin as a suicidal attempt. Patient states he was feeling helpless and wanted to get out of the situation. He also smoked crack cocaine on the day of presentation. His last alcohol drink was 1 and half days ago. No fever, chills, chest discomfort, palpitations, shortness of breath, abdominal pain, changes in urinary or bowel habits. In the emergency department, creatinine was found to be elevated. Patient was initiated on IV fluids and poison control was contacted. Intentional overdose: Charcoal given in the ER. Poison control was contacted who recommended admission to tele bed for at least 24 hours with seizure precautions. No seizures, no a arrhythmias noted on monitor. EKG with normal QTC. Blood pressure has remained stable, no change in mental status. Suicidal attempt: Patient was can continue with one-to-one sitter for safety. When medically clear he was seen by care team who recommended inpatient level of care for ongoing psychiatric treatment. He will be transferred to [facility] for further management. Acute kidney injury, stage I; resolved with IV fluid Rhabdomyolysis: Improved with IV fluid, CPK trended down to around 500. Alcohol use disorder: Patient states he is allergic to phenobarb. Was instead treated with tapering dose of p.o. lorazepam p.r.n.. And p.r.n. IV Ativan. Has been scoring under for on CIWA for the past 48 hours. Scoring primarily for increased anxiety. Vital signs have remained stable, no evidence of active alcohol withdrawal. 08:00 CIWA score 0 on day of discharge Reactive leukocytosis. resolved. Physical Exam Vital Signs: Vital Signs: Last Vital Signs Temp 98.6 F 12/12/23 07:50 Pulse 66 12/12/23 07:50 Resp 20 12/12/23 07:50 BP 116/58 L 12/12/23 07:50 Pulse Ox 96 12/12/23 07:50 O2 Del Method Room Air 12/12/23 07:50 BMI result Body Mass Index 30.8 DS: Data Data Completed and Pending Completed studies during hospitalization [Text1]: Procedures Detoxification Services for Substance Abuse Treatment (10/07/22) Labs on day of discharge: Laboratory Results - last 24 hr 12/11/23 12/12/23 15:37 08:49 WBC 7.5 RBC 4.01 L Hgb 12.4 L Hct 35.8 L MCV 89.3 MCH 30.9 MCHC 34.6 RDW 13.2 Plt Count 188 MPV 10.4 Immature Gran % (Auto) 0.5 H Neut % (Auto) 69.5 Lymph % (Auto) 18.3 L [place] % (Auto) 8.1 Eos % (Auto) 2.8 Baso % (Auto) 0.8 Lymph # (Auto) 1.4 [place] # (Auto) 0.6 Eos # (Auto) 0.2 Baso # (Auto) 0.1 Abs Immat Gran (auto) 0.04 H Absolute Neuts (auto) 5.2 Absolute Nucleated RBC 0.000 Nucleated RBC % (auto) 0.0 Sodium 140 Potassium 4.2 Chloride 106 Carbon Dioxide 23 Anion Gap 15 BUN 14 Creatinine 1.01 Estim Creat Clear Calc 108.0 Estimated GFR > 60 Fasting Glucose 155 H Calcium 9.0 Total Bilirubin 0.2 AST 21 D ALT 35 Alkaline Phosphatase 72 Total Creatine Kinase 520 H Total Protein 6.1 L Albumin 3.8 Discharge Plan Discharge Anticipated Discharge Date/Time: 12/12/23 12:21 Patient Disposition: Xfer Psychiatric Hosp Discharge Diagnosis: Intentional overdose with Wellbutrin IVONNE, resolved mild rhabdomyolysis Alcohol use disorder Referrals: Gonzales Rust MD [Primary Care Provider] - 1 Week Discharge Medications: New nicotine (polacrilex) 2 mg Gum 2 mg buccal Q1H PRN (Reason: tobacco withdraw) Qty: 20 0RF lorazepam 1 mg Tablet 0.5 mg PO Q6H Qty: 10 0RF thiamine mononitrate (vit B1) 100 mg Tablet 100 mg PO DAILY Qty: 10 0RF Continued prazosin 5 mg Capsule 5 mg PO BEDTIME Qty: 30 0RF Protocol: Hold for SBP< HOLD for SBP < : 90 sennosides [Senna Lax] 8.6 mg Tablet 8.6 mg PO BID Qty: 60 0RF methylphenidate HCl 10 mg Tablet 10 mg PO BID@0800,1500 Qty: 60 0RF Rx Instructions: Partial Fill upon patient request. hydroxyzine HCl 50 mg Tablet 50 mg PO TID PRN (Reason: Anxiety) Qty: 90 0RF trazodone 100 mg Tablet 100 mg PO BEDTIME PRN (Reason: Insomnia) Qty: 30 0RF quetiapine 50 mg Tablet 50 mg PO BID PRN (Reason: Panic Attack(S)) Qty: 60 0RF gabapentin 800 mg tablet 800 mg PO TID Qty: 90 0RF buprenorphine-naloxone [Suboxone] 8-2 mg Film 1 film sublingual TID@0800,1200,1700 Qty: 21 0RF zolpidem [Ambien] 10 mg tablet 10 mg PO BEDTIME PRN (Reason: insomnia) Qty: 30 0RF methocarbamol 750 mg tablet 750 mg PO Q8H PRN (Reason: pain (scale score 4-6)) Qty: 60 0RF bupropion HCl [Wellbutrin XL] 300 mg tablet extended release 24 hr 300 mg PO DAILY bupropion HCl [Wellbutrin XL] 150 mg tablet extended release 24 hr 150 mg PO DAILY Discharge Orders: Discharge Order (Routine); Ordered 12/12/23 Ordered By: Gabriella Gibson Activity on Discharge: As tolerated Stand Alone Forms: Patient Portal Discharge page Print Language: Puerto Rican Care Plan Goals: see below Health Concerns: Intentional overdose with Wellbutrin IVONNE Rhabdomyolysis Alcohol dependence Anxiety- was placed on Ativan protocol for alcohol withdrawal due to history of adverse effect with phenobarbital protocol. CIWA has been 4 or less for the past 48 hours and he scores mostly due to anxiety. 8am CIWA was 0 Plan of Treatment: Transfer to inpatient psychiatric floor for ongoing management of anxiety, depression with suicidal ideation continue po ativan taper finishes 12/12 Assessment: See discharge
[2023-12-12] MEDS: QUEtiapine Fumarate 50 MG TABLET PO (12:19)
[2023-12-12] MEDS: hydrOXYzine HCL 50 MG TABLET PO (12:19)
--- NOTE | 2023-12-12 12:31 | P.DS_ITS ---
DS: Providers Provider Date of Service: 12/12/23 Date of admission: 12/08/23 23:43 Date of discharge: 12/12/23 Primary care physician: Gonzales Rust MD Consults: 12/08/23 23:50 Addiction Medicine Routine Consulting Provider: Addiction Covering Reason for consultation: cocaine and alcohol use disorder Consult for Sitter Routine Reason for consultation: Suicidal attempt 12/11/23 13:51 Consult to Care Team Routine Comment: Reason for consultation: intentional overdose LOC, medically cleared Attending physician on discharge: Ramón Ruelas Discharging clinician: Gabriella Gibson DS: Diagnosis Discharge Diagnosis (1) IVONNE (acute kidney injury): Status: Acute (2) Rhabdomyolysis: Status: Acute (3) Intentional overdose: Status: Acute (4) Alcohol use disorder: Status: Chronic DS: Summary Hospital Course Hospital Course: From H&P on the day of admission This is a 53-year-old male with pertinent history of major depressive disorder, cocaine use disorder, alcohol use disorder who was brought to the emergency department for evaluation of intentional overdose after consuming 15 tablets of 300 mg extended release Wellbutrin. Patient states he was feeling very low on the day of presentation and intentionally consumed all his Wellbutrin as a suicidal attempt. Patient states he was feeling helpless and wanted to get out of the situation. He also smoked crack cocaine on the day of presentation. His last alcohol drink was 1 and half days ago. No fever, chills, chest discomfort, palpitations, shortness of breath, abdominal pain, changes in urinary or bowel habits. In the emergency department, creatinine was found to be elevated. Patient was initiated on IV fluids and poison control was contacted. Intentional overdose: Charcoal given in the ER. Poison control was contacted who recommended admission to tele bed for at least 24 hours with seizure precautions. No seizures, no a arrhythmias noted on monitor. EKG with normal QTC. Blood pressure has remained stable, no change in mental status. Suicidal attempt: Patient was can continue with one-to-one sitter for safety. When medically clear he was seen by care team who recommended inpatient level of care for ongoing psychiatric treatment. He will be transferred to [facility] for further management. Acute kidney injury, stage I; resolved with IV fluid Rhabdomyolysis: Improved with IV fluid, CPK trended down to around 500. Alcohol use disorder: Patient states he is allergic to phenobarb. Was instead treated with tapering dose of p.o. lorazepam p.r.n.. And p.r.n. IV Ativan. Has been scoring under for on CIWA for the past 48 hours. Scoring primarily for increased anxiety. Vital signs have remained stable, no evidence of active alcohol withdrawal. 08:00 CIWA score 0 on day of discharge Reactive leukocytosis. resolved. Time Attestation Discharge Coordination Time (in mins): 36 Quality: Safe Use of Opioids Does Pt have an Active Cancer Diagnosis on the Problem List?: No Quality: Stroke Does the patient have a stroke diagnosis?: No Physical Exam Vital Signs: Vital Signs: Last Vital Signs Temp 98.6 F 12/12/23 07:50 Pulse 66 12/12/23 07:50 Resp 20 12/12/23 07:50 BP 116/58 L 12/12/23 07:50 Pulse Ox 96 12/12/23 07:50 O2 Del Method Room Air 12/12/23 07:50 BMI result Body Mass Index 30.8 Const: General: cooperative, comfortable, no acute distress, alert and awake Nutritional Appearance: average body habitus Orientation/consciousness: patient oriented x3 Resp: Effort & Inspection: normal respiratory effort, able to speak in complete sentences, no respiratory distress and no use of accessory muscles Cardio: Rate: regular rate GI: Inspection: No distended Palpation (GI): Soft to palpation and nontender Neuro: General: patient oriented x3, moves all extremities and CN's II-XI intact bilaterally Extrem: General: Yes no pedal edema DS: Data Data Completed and Pending Completed studies during hospitalization [Text1]: Procedures Detoxification Services for Substance Abuse Treatment (10/07/22) Labs on day of discharge: Laboratory Results - last 24 hr 12/11/23 12/12/23 15:37 08:49 WBC 7.5 RBC 4.01 L Hgb 12.4 L Hct 35.8 L MCV 89.3 MCH 30.9 MCHC 34.6 RDW 13.2 Plt Count 188 MPV 10.4 Immature Gran % (Auto) 0.5 H Neut % (Auto) 69.5 Lymph % (Auto) 18.[address] [place] % (Auto) 8.1 Eos % (Auto) 2.8 Baso % (Auto) 0.8 Lymph # (Auto) 1.4 [place] # (Auto) 0.6 Eos # (Auto) 0.2 Baso # (Auto) 0.1 Abs Immat Gran (auto) 0.04 H Absolute Neuts (auto) 5.2 Absolute Nucleated RBC 0.000 Nucleated RBC % (auto) 0.0 Sodium 140 Potassium 4.2 Chloride 106 Carbon Dioxide 23 Anion Gap 15 BUN 14 Creatinine 1.01 Estim Creat Clear Calc 108.0 Estimated GFR > 60 Fasting Glucose 155 H Calcium 9.0 Total Bilirubin 0.2 AST 21 D ALT 35 Alkaline Phosphatase 72 Total Creatine Kinase 520 H Total Protein 6.1 L Albumin 3.8 Discharge Plan Discharge Anticipated Discharge Date/Time: 12/12/23 12:21 Patient Disposition: Xfer Psychiatric Hosp Discharge Diagnosis: Intentional overdose with Wellbutrin IVONNE, resolved mild rhabdomyolysis Alcohol use disorder Referrals: Gonzales Rust MD [Primary Care Provider] - 1 Week Discharge Medications: New nicotine (polacrilex) 2 mg Gum 2 mg buccal Q1H PRN (Reason: tobacco withdraw) Qty: 20 0RF lorazepam 1 mg Tablet 0.5 mg PO Q6H Qty: 10 0RF thiamine mononitrate (vit B1) 100 mg Tablet 100 mg PO DAILY Qty: 10 0RF Continued prazosin 5 mg Capsule 5 mg PO BEDTIME Qty: 30 0RF Protocol: Hold for SBP< HOLD for SBP < : 90 sennosides [Senna Lax] 8.6 mg Tablet 8.6 mg PO BID Qty: 60 0RF methylphenidate HCl 10 mg Tablet 10 mg PO BID@0800,1500 Qty: 60 0RF Rx Instructions: Partial Fill upon patient request. hydroxyzine HCl 50 mg Tablet 50 mg PO TID PRN (Reason: Anxiety) Qty: 90 0RF trazodone 100 mg Tablet 100 mg PO BEDTIME PRN (Reason: Insomnia) Qty: 30 0RF quetiapine 50 mg Tablet 50 mg PO BID PRN (Reason: Panic Attack(S)) Qty: 60 0RF gabapentin 800 mg tablet 800 mg PO TID Qty: 90 0RF buprenorphine-naloxone [Suboxone] 8-2 mg Film 1 film sublingual TID@0800,1200,1700 Qty: 21 0RF zolpidem [Ambien] 10 mg tablet 10 mg PO BEDTIME PRN (Reason: insomnia) Qty: 30 0RF methocarbamol 750 mg tablet 750 mg PO Q8H PRN (Reason: pain (scale score 4-6)) Qty: 60 0RF bupropion HCl [Wellbutrin XL] 300 mg tablet extended release 24 hr 300 mg PO DAILY bupropion HCl [Wellbutrin XL] 150 mg tablet extended release 24 hr 150 mg PO DAILY Discharge Orders: Discharge Order (Routine); Ordered 12/12/23 Ordered By: Gabriella Gibson Activity on Discharge: As tolerated Stand Alone Forms: Patient Portal Discharge page Print Language: Zambian Care Plan Goals: see below Health Concerns: Intentional overdose with Wellbutrin IVONNE Rhabdomyolysis Alcohol dependence Anxiety- was placed on Ativan protocol for alcohol withdrawal due to history of adverse effect with phenobarbital protocol. CIWA has been 4 or less for the past 48 hours and he scores mostly due to anxiety. 8am CIWA was 0 Plan of Treatment: Transfer to inpatient psychiatric floor for ongoing management of anxiety, depression with suicidal ideation continue po ativan taper finishes 12/12 Assessment: See discharge
[2023-12-12] MEDS: LORazepam 0.5 MG TABLET PO (12:55)
--- NOTE | 2023-12-12 15:04 | PC.NURSE ---
Pt tx to [facility] with LELAND Pereira. security and 1:1 sitter.
== END 2023-12-12 15:04 | DRG 817 ==
LOC: HO.ED 23:02 → HO.EDOVER 23:46 → HO.IMC 12-09 00:07
PROVIDERS: Hospitalist; Admitting Provider Student in an Organized Health Care Education/Training Program; Emergency Provider Emergency Medicine; PCP Family Medicine; Visit Provider Physician Assistant Medical
DX: T43.292A Poisoning by other antidepressants, intentional self-harm, initial encounter (principal); N17.9 Acute kidney failure, unspecified; M62.82 Rhabdomyolysis; F10.239 Alcohol dependence with withdrawal, unspecified; F43.12 Post-traumatic stress disorder, chronic; F41.9 Anxiety disorder, unspecified; F14.90 Cocaine use, unspecified, uncomplicated; F11.20 Opioid dependence, uncomplicated; F17.210 Nicotine dependence, cigarettes, uncomplicated; Z71.6 Tobacco abuse counseling; Z79.899 Other long term (current) drug therapy
CPT/HCPCS: 36415; 71045; 80048; 80053; 80076; 80143; 80179; 80307; 81001; 82550; 82803; 83605; 83735; 84484; 85025; 85027; 93005; 99285; J1650; J2060; J2405; J3360; J7120; S9485

== ENCOUNTER 2023-12-08 23:43 | Outpatient (BNV) | payer MEDICAID, SELFPAY | END 2023-12-10 | PROVIDERS: Admitting Provider Student in an Organized Health Care Education/Training Program; Emergency Provider Emergency Medicine; PCP Family Medicine; Visit Provider Internal Medicine Cardiovascular Disease | DX: R07.9 Chest pain, unspecified (principal) | CPT/HCPCS: 93010 ==

== ENCOUNTER 2023-12-08 23:43 | Outpatient (BNV) | payer MEDICAID, SELFPAY | END 2023-12-09 02:00 | PROVIDERS: Admitting Provider Student in an Organized Health Care Education/Training Program; Emergency Provider Emergency Medicine; Visit Provider Internal Medicine Cardiovascular Disease | DX: R94.31 Abnormal electrocardiogram [ECG] [EKG] (principal) | CPT/HCPCS: 93010 ==

== ENCOUNTER → 2023-12-08 23:43 | Outpatient (BNV) | payer MEDICAID, SELFPAY | PROVIDERS: Admitting Provider Student in an Organized Health Care Education/Training Program; Emergency Provider Emergency Medicine; Visit Provider Student in an Organized Health Care Education/Training Program | DX: N17.9 Acute kidney failure, unspecified (principal); M62.82 Rhabdomyolysis; T14.91XA Suicide attempt, initial encounter; T43.292A Poisoning by other antidepressants, intentional self-harm, initial encounter | CPT/HCPCS: 99223; 99232; 99233; 99239 ==

== ENCOUNTER 2023-12-12 13:02 | Inpatient (IN) | payer OTHER, SELFPAY ==
[2023-12-12 15:10] VITALS: BP 136/91; PULSE 95; RESP 20; TEMP 36.4; O2SAT 97
--- OUTSIDE RECORDS SUMMARY | 2023-12-12 15:42 | XMS_ITS | Patient Health Record ---
Author Organization [facility] Address [address], [place] [id number] Care Team Providers Care Personnel Security Specialist Name Role Phone Carmen Arpitachristiano Primary Care Provider [phone] [facility], Nursing Unavailable [phone] Sparkle Tsang Unavailable ALLERGIES No Known Allergies RESULTS Component Value Reference Range Notes CBC Reviewed date:04/20/2023 03:16:50 PM Interpretation:low H & H, wbc and rbc Performing Lab: Notes/Report: WBC 3.8 4.8-10.8 x10-3/uL RBC 4.2 4.5-5.5 x10-6/uL HEMOGLOBIN 12.6 13.5-17.5 g/dL HEMATOCRIT 36.4 42-54 % MCV 87.7 79-98 fL MCH 30.4 27-32 pg MCHC 34.6 32-37 g/dL RDW 12.9 11-15 % PLT COUNT 186 130-400 x10-3/uL MEAN PLATELET VOLUME 11.0 7-11 fL NRBC % AUTO 0.0 <1 % NRBC # AUTO 0.00 <0.1 x10-3/uL COMPREHENSIVE METABOLIC PANE L Reviewed date:04/20/2023 03:17:58 PM Interpretation:Normal Performing Lab: Notes/Report: GLUCOSE 97 70-100 mg/dL Reference range applicable to fasting specimens only BUN 13 5-25 mg/dL CREAT 0.96 0.7-1.3 mg/dL GLOMERULAR FILTRATION RATE 95 >60 This eGFR result was calculated using the CKD-EPI 2020 Creatinine Equation SODIUM 140 135-145 mEq/L POTASSIUM 4.1 3.5-5.5 mmol/L CHLORIDE 109 96-110 mmol/L CO2 25 21-32 mmol/L ANION GAP 6 3-11 CALCIUM 8.8 8.5-10.5 mg/dL TOTAL PROTEIN 6.9 6.0-8.0 G/dL ALBUMIN 3.9 3.2-5.0 G/dL BILI,TOTAL 0.3 0.0-1.4 mg/dL SGOT 16 10-42 U/L SGPT 22 10-60 U/L ALK PHOS 82 42-121 U/L GLYCOHEMOGLOBIN PROFILE Reviewed date:04/20/2023 03:17:16 PM Interpretation:Normal Performing Lab: Notes/Report: GLYCATED HEMOGLOBIN A1C 5.4 <6.5 % ESTIMATED AVERAGE GLUCOSE 108 HCV VIRAL LOAD Reviewed date:04/20/2023 03:17:07 PM Interpretation:Normal Performing Lab: Notes/Report: HCV VIRAL LOAD QUAL NOT DETECTED NOT DETECT. HCV RNA not detected, unable to report quantitative results LIPID PROFILE Reviewed date:04/20/2023 03:17:45 PM Interpretation:Normal Performing Lab: Notes/Report: CHOLESTEROL 154 0-200 mg/dL TRIGLYCERIDES 143 0-150 mg/dL HDL CHOLESTEROL 41 >40 mg/dL LDL CALCULATED 85 0-100 mg/dL TC-HDLC RATIO 3.8 0-4.4 mg/dL TSH CASCADE Reviewed date:04/20/2023 03:17:23 PM Interpretation:Normal Performing Lab: Notes/Report: TSH CASCADE 3.10 0.40-4.00 uIU/ml VITAMIN D, 25-HYDROXY Reviewed date:04/20/2023 03:17:34 PM Interpretation:Low Performing Lab: Notes/Report: VITAMIN D, 25-HYDROXY 26 30-80 ng/mL QUANTIFERON PLUS Reviewed date:04/20/2023 03:16:58 PM Interpretation:Negative Performing Lab: Notes/Report: Note Original Orderi ng Provider: NELSON [facility] [employer] QFT PLUS INTERPRETATION NEGATIVE NEGATIVE REASON FOR REFERRAL Reason Client has a lot of mail at [facility]. Please when you see him on 04/08/2023 let him know he has important mail here. Thank you, Referral Organization [facility] Referring Provider First Name Juan Jose Referring Provider Last Name Morena Referring Provider Speciality Clinic or group practice Referred Organization [facility] Referred Provider Nelson Lu Referred Address [address],[place], [place],[id number] Referral Priority Urgent Reason [place] [place] [address] [facility]/month x 12 months Referral Organization [facility] Referring Provider First Name Nelson Referring Provider Last Name Carmen Referring Provider Speciality Nurse Chelsie lin Referred Provider PT, -1 Referral Priority Routine Reason PT-1 from [address], [place] to [facility] [address] [place], [place] 1 visit a month x 12 months Referral Organization [facility] Referring Provider First Name Nelson Referring Provider Last Name Carmen Referring Provider Speciality Nurse Chelsie lin Referred Provider PT, -1 Referral Priority Routine MEDICATIONS Medication SIG (Take, Route, Frequency, Duration) Notes Start Date End Date Status naproxen 500 mg 1 tab(s) orally once a day Not-Taking hydrOXYzine hydrochloride 50 mg 1 tab(s) orally qhs Not-Taki ng senna 8.6 mg 2 tab(s) orally once a day (at bedtime) for 90 days Active cyclobenzaprine 10 mg 1 tab(s) orally 3 times a day as needed for pain for 30 days Not-Taking folic acid 1 mg 1 tab(s) orally once a day for 90 days Active Wellbutrin XL 300 mg/24 hours 1 tab(s) orally every 24 hours Unknown Ritalin 10 mg 1 tab(s) orally 2 times a day Active nicotine 2 mg 1 AMBER by transmucosa l administration every 2 hours for 30 days Not-Taking MiraLax - as directed orally once a day 3-4x week PRN constipation for 30 days Active acetaminophen 650 mg 2 tab(s) orally delta ry 8 hours PRN back/hip pain for 28 days Not-Taking zolpidem 10 mg 1 tab(s) orally once a day (at bedtime) Active amLODIPine 5 mg 1 tab(s) orally once a day for 90 days 05/15/2023 Active Neurontin 800 mg 1 cap(s) orally tid Active thiamine 100 mg 1 tab(s) orally once a day for 90 days Active Wellbutrin XL 150 mg/24 hours 1 tab(s) orally every 24 hours Unknown pyridoxine 50 mg 1 tab(s) orally once a day for 90 days Active lidocaine topical 5% 1 PATCH applied topically once a day for 30 days Unknown Trazodone 100mg 150 mg 1 tab(s) orally hs Active prazosin 5 mg 1 cap(s) orally once a day Active Suboxone 8 mg-2 mg 1 film(s) sublingual ly Three times a day Active ferrous sulfate 325 mg 1 tab(s) orally o nce a day Active multivitamin Vitamin A and D 1 cap(s) orally once a day Not-Taking multivitamin Multiple Vitamins 1 cap(s) orally once a day for 28 day(s) 09/16/2022 Active methocarbamol 750 mg 2 tab(s) orally 3 times a day for 30 days Active dextroamphetamine 20 mg 1 tab(s) orally 2 times a day Not-Taking CeleBREX 200 mg 1 cap(s) orally once a day for 90 days Active amitriptyline 25 mg 1 tab(s) orally once a day (at bedtime) Not-Taking nicotine 14 mg/24 hr 1 PATCH transdermal ly once a day for 28 days Not-Takin g Calcium 600+D 600 mg-20 mcg 1 tab(s) orally 2 times a day for 30 day(s) 04/23/2023 Not-Taking Seroquel 100 mg 1 tab(s) orally 3 times a day Active metroNIDAZOLE topical 0.75% 1 geetha applied topically 2 times a day for 90 days Active chlorproMAZINE 100 mg 1 tab(s) orally ev er 6 hours Not-Taking Flonase Allergy Relief 50 mcg/inh 1 spray(s) in each nostril once a day for 90 days Active IMMUNIZATIONS Vaccine Route Administration Date Status Comme nts Moderna Covid-19 Vaccine Administration - First Dose (Single Dose 100MCG/0.5ML 1ST) IM Intramuscular 06/28/2020 Administered [facility] Tdap IM Intramuscular 09/27/2020 Administered [facility] [id number] Moderna Covid-19 Booster Administration - Third Dose (Single Dose 50 mcg/0.25 mL Unknown 05/15/2021 Administered [facility] 23 IM Intramuscular 01/24/2022 Administered Influenza IM Intramuscular 03/28/2022 Administered Influenza IM Intramuscular 04/08/2023 Administered [facility] 14033-184-95 Moderna Covid-19 Vaccine Administration - Second Dose (Single Dose 100 MCG/0.5ML 2ND) IM Intramuscular 07/26/2020 Pending [facility] Lot# [id number] SOCIAL HISTORY Tobacco Use: Social History Observation [...] W/U Status Risk SNOMED Code Notes Problem Chronic viral hepatitis C (B18.2) Active confirmed Chronic hepatitis C (448492244) Problem Disorder of white blood cells, 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) Active confirmed White blood cell disorder (74036656) Problem Vitamin D deficiency, unspecified (E55.9) Active confirmed Vitamin D deficiency (97905678) Problem Obesity, unspecified (E66.9) Active confirmed Obesity (131427189) Problem Alcohol dependence, uncomplicated (F10.20) Active confirmed Alcohol dependence (75846544) 12/2021: 6 months abstinent Problem Opioid dependence, uncomplicated (F11.20) Active confirmed Opioid dependence (92753661) Suboxone--- F11.21 Problem Cocaine abuse with intoxication, uncomplicated (F14.120) Active confirmed Problem Nicotine dependence, cigarettes, uncomplicated (F17.210) Active confirmed Tobacco user (630957964) Problem Major depressive disorder, single episode, severe without psychotic features (F32.2) 11/30/19 21 Active confirmed Severe major depression, single episode, without psychotic features (20272066) Problem Anxiety disorder, unspecified (F41.9) Active confirmed Anxiety disorder (577708444) Problem Insomnia, unspecified (G47.00) Active confirmed Insomnia (405034243) Problem Chronic rhinitis (J31.0) Active confirmed Chronic rhinitis (03568518) Problem Constipation, unspecified (K59.00) Active confirmed Constipation (35908924) Problem Rosacea, unspecified (L71.9) Active confirmed Rosacea (935195812) Problem Pain in right hip (M25.551) Active confirmed Right hip pain (9647646472102 02) Problem Body mass index [BMI] 32.0-32.9, adult (Z68.32) Active confirmed Body mass index 30.00 to 34.99 (2707065963836 07) Problem Sheltered homelessness (Z59.01) Active confirmed Sheltered homelessness (5519477292639 00) Problem Body mass index [BMI] 31.0-31.9, adult (Z68.31) Inactive confirmed Body mass index 30.00 to 34.99 (5274713637179 07) VITAL SIGNS Temperature 98.1 degrees Fahrenheit 05/08/2023 Blood pressure diastolic 77 05/08/2023 Oximetry 98 05/08/2023 Height 70.5 in 05/08/2023 Blood pressure systolic 131 05/08/2023 Weight 228.0 lbs 05/08/2023 BMI 32.25 kg/m2 05/08/2023 Encounters Encounter Location Date Provider Diagnosis [address] [id number] 01/02/2023 Eddieliza Casionan [address] [id number] 01/16/2023 Eddieliza Casionan Encounter for screening for infectious and parasitic diseases, unspecified Z11.[address] [id number] 02/10/2023 Eddieliza Casionan [address] [id number] 03/05/2023 Eddieliza Casionan Sheltered homelessness Z59.01 and Encounter for screening for COVID-19 Z11.52 [facility] [address] [place] [address] [facility] [place], [place] [id number] 04/15/2023 Eddieliza Casionan [address] [id number] 04/30/[address] [id number] 05/07/[address] [id number] 08/07/2023 Eddieliza Casionan Encounter for screening for COVID-19 Z11.[address] [id number] 04/08/2023 Eddieliza Casionan Vitamin D deficiency, unspecified E55.9 ; Alcohol dependence, uncomplicated F10.20 ; Obesity, unspecified E66.9 ; Chronic viral hepatitis C B18.2 ; Encounter for immunization Z23 ; Body mass index [BMI] 32.0-32.9, adult Z68.32 ; Rosacea, unspecified L71.9 and Pain in right hip M25.551 [facility] [address] [place] [address] [id number] 04/21/2023 Sparkle Tsang [address] [id number] 04/23/2023 Nursing [facility] Encounter for examination of blood pressure without abnormal findings Z01.[address] [id number] 05/08/2023 Eddieliza Casionan Encounter for screening for COVID-19 Z11.52 ; Sheltered homelessness Z59.01 ; Vitamin D deficiency, unspecified E55.9 ; Pain in right hip M25.551 ; Nutritional anemia, unspecified D53.9 ; Disorder of white blood cells, unspecified D72.9 ; Person consulting for explanation of examination or test findings Z71.2 ; Opioid dependence, uncomplicated F11.20 ; Chronic rhinitis J31.0 ; Rosacea, unspecified L71.9 and Alcohol dependence, uncomplicated F10.[address] [id number] 12/11/2022 Eddieliza Casionan [address] [id number] 01/06/2023 Eddieliza Casionan [address] [id number] 01/14/2023 Eddieliza Casionan [address] [id number] 01/16/2023 Eddieliza Casionan [address] [id number] 01/16/2023 Eddieliza Casionan [address] [id number] 02/03/2023 Eddieliza Casionan [address] [id number] 02/05/2023 Eddieliza Casionan [address] [id number] 02/06/2023 Eddieliza Casionan [address] [id number] 02/07/2023 Eddieliza Casionan [address] [id number] 02/17/2023 Eddieliza Casionan Constipation, unspecified K59.[address] [id number] 02/21/2023 Eddieliza Casionan [address] [id number] 02/21/2023 Eddieliza Casionan [address] [id number] 03/04/2023 Eddieliza Casionan [address] [id number] 03/04/2023 Eddieliza Casionan [address] [id number] 03/05/2023 Eddieliza Casionan [address] [id number] 03/11/2023 Eddieliza Casionan [address] [id number] 03/12/2023 Eddieliza Casionan [address] [id number] 03/14/2023 Eddieliza Casionan [address] [id number] 03/17/2023 Eddieliza Casionan [address] [id number] 03/26/2023 Eddieliza Casionan Constipation, unspecified K59.00 ; Vitamin D deficiency, unspecified E55.9 ; Alcohol dependence, uncomplicated F10.20 and Chronic rhinitis J31.[address] [id number] 04/09/2023 Eddieliza Casionan Alcohol dependence, uncomplicated F10.[address] [id number] 04/14/2023 Eddieliza Casionan Alcohol dependence, uncomplicated F10.[address] [id number] 04/21/2023 Eddieliza Casionan [address] [id number] 04/23/2023 Eddieliza Casionan Vitamin D deficiency, unspecified E55.[address] [id number] 05/15/2023 Eddieliza Zacionjeni [address] [id number] 06/20/2023 Eddamarieliza Zacionjeni [facility] [address] [place] [address] [id number] 07/09/2023 Eddieliza Casionan [address] [id number] 07/18/2023 Eddieliza Zacionan [address] [id number] 08/07/2023 Eddieliza Zacionjeni ASSESSMENTS Encounter Date Diagnosis Assessment Notes Treatment Notes Treatment Clinical Notes 04/23/2023 Encounter for examination of blood pressure without abnormal findings (ICD-10 - Z01.30) BP check,reading WNL. Will come back in 1 week for repeat check. 01/16/2023 Encounter for screening for infectious and [...] you are having concerning symptoms for COVID-19. 03/05/2023 Sheltered homelessness (ICD-10 - Z59.01) 08/07/2023 Encounter for screening for COVID-19 (ICD-10 - Z11.52) Covid screening is negative. Discussed in detail [...] you are having concerning symptoms for COVID-19. 04/08/2023 Vitamin D deficiency, unspecified (ICD-10 - E55.9) Encouraged morning sunshine exposure at least 20 minutes daily. 04/08/2023 Alcohol dependence, uncomplicated (ICD-10 - F10.20) 12/2021: 6 months abstinent on recovery 05/08/2023 Encounter for screening for COVID-19 (ICD-10 - Z11.52) COVID-19 screening is negative. Discussed in detail [...] you are having concerning symptoms for COVID-19. 05/08/2023 Sheltered homelessness (ICD-10 - Z59.01) staying at a recovery program 02/17/2023 Constipation, unspecified (ICD-10 - K59.00) 03/26/2023 Constipation, unspecified (ICD-10 - K59.00) 04/09/2023 Alcohol dependence, uncomplicated (ICD-10 - F10.20) 12/2021: 6 months abstinent 04/14/2023 Alcohol dependence, uncomplicated (ICD-10 - F10.20) 12/2021: 6 months abstinent 04/23/2023 Vitamin D deficiency, unspecified (ICD-10 - E55.9) 03/05/2023 Encounter for screening for COVID-19 (ICD-10 - Z11.52) Covid screening is negative. Discussed in detail [...] you are having concerning symptoms for COVID-19. 04/08/2023 Obesity, unspecified (ICD-10 - E66.9) Engaged discussion on maintaining healthy lifestyle: healthy diet low on fats and simple carbohydrates, and regular physical exercise of at least 30 minutes daily 05/08/2023 Vitamin D deficiency, unspecified (ICD-10 - E55.9) Encouraged morning sunshine exposure at least 20 minutes daily. 03/26/2023 Vitamin D deficiency, unspecified (ICD-10 - E55.9) 04/08/2023 Chronic viral hepatitis C (ICD-10 - B18.2) will check VL 05/08/2023 Pain in right hip (ICD-10 - M25.551) he has not called [facility]. He wants to establish care with a provider in [place], [place] where he is moving 03/26/2023 Alcohol dependence, uncomplicated (ICD-10 - F10.20) 04/08/2023 Encounter for immunization (ICD-10 - Z23) VIS reviewed. Discussed risks and benefits of vaccine. Agrees to have vaccine. Vaccine given w/o adverse effect 05/08/2023 Nutritional anemia, unspecified (ICD-10 - D53.9) H & H remains low. He agrees to call GI to schedule for colonoscopy 03/26/2023 Chronic rhinitis (ICD-10 - J31.0) 04/08/2023 Body mass index [BMI] 32.0-32.9, adult (ICD-10 - Z68.32) Engaged discussion on maintaining healthy lifestyle: healthy diet low on fats and simple carbohydrates, and regular physical exercise of at least 30 minutes daily 05/08/2023 Disorder of white blood cells, unspecified (ICD-10 - D72.9) WBC low. lLikely medication related. He is on trazodone and Neurontin. Seroquel recently added. He thinks he does not really need seroquel so he plans on talking with his Psyche provider to gradually taper. We will recheck CBC in 3 months. If remaining low, may refer to hematology. He is moving to [place]. Advised to call us in 3 months so we can fax lab order to him or to a lab around him 04/08/2023 Rosacea, unspecified (ICD-10 - L71.9) [facility]-1 sent 05/08/2023 Person consulting for explanation of examination or test findings (ICD-10 - Z71.2) Reviewed results of recent diagnostic testing with client. Testing was (ab)normal. Future plan of action discussed. 04/08/2023 Pain in right hip (ICD-10 - M25.551) our staff sent for PT-1. He agrees to call [facility] for f/u 05/08/2023 Opioid dependence, uncomplicated (ICD-10 - F11.20) Suboxone---F11.21 On recovery 05/08/2023 Chronic rhinitis (ICD-10 - J31.0) asking fro refill of flonase 05/08/2023 Rosacea, unspecified (ICD-10 - L71.9) stable. asking for refill of ointment 05/08/2023 Alcohol dependence, uncomplicated (ICD-10 - F10.20) 12/2021: 6 months abstinent He is on recovery at a program 03/05/2023 Other 08/07/2023 Other 04/23/2023 Other Pt states [facility] PT needs more info so he can continue to be seen. Left a vm with them awaiting a call back. 05/08/2023 Other PLAN OF TREATMENT Pending Test Test Name Order Date CBC 04/08/2023 CHLAMYDIA / GC DNA W RFLX 09/13/2021 COMPREHENSIVE METABOLIC PANEL 04/08/2023 GLYCOHEMOGLOBIN PROFILE 04/08/2023 HCV VIRAL LOAD 04/08/2023 LIPID PROFILE 04/08/2023 THYROID PROFILE 04/08/2023 VITAMIN D, 25-HYDROXY 04/08/2023 QUANTIFERON(R)-TB GOLD PLUS, 1 TUBE 04/2 05/2021 QUANTIFERON(R)-TB GOLD PLUS, 1 TUBE 03/0 06/2022 QUANTIFERON(R)-TB GOLD PLUS, 1 TUBE 05/0 09/2020 QUANTIFERON(R)-TB GOLD PLUS, 1 TUBE 03/26 Future Test Test Name Order Date CBC WITH AUTO DIFF 07/28/2023 Insurance Providers Payer Name Payer Address Payer Phone Subscriber Number Group Number Insured Name Patient Relationship to Insured Coverage Start Date Coverage End Date [place] C3 [address] [place], [place] [id number] Cam Narvaez Self - patient is the [...] Reason Date(Month/Year) Prov Detox and CSS 04/2020 [facility] Detox and CSS x 2 0 Psych admit - [facility] 08/2020 [facility] : tongue lacerat ion 10/12/2020 [facility]: admission: OD Antidepressants ETOH W/D 11/29/2020 [facility] Suicide attempt 04/06-
[2023-12-12] MEDS: Nicotine 21 MG PATCH.TD24 TRANSDERMA (16:03)
[2023-12-12] MEDS: LORazepam 1 MG TABLET 2 MG PO ×2 (16:04→19:05)
[2023-12-12] MEDS: Buprenorphine/Naloxone 8/2 mg FILM 1 FILM SUBLINGUAL (17:42)
[2023-12-12 19:30] VITALS: BMI 29.9
--- NOTE | 2023-12-12 19:34 | PC.ADMIT ---
Cam Narvaez is a 53 year old male that presents from [facility] after one and a half month relapse while in a program after approximately 8 months sobriety. Cam has been in a program since February in the [facility]. Cam has had multiple admissions to [facility] and is known to the care team. Cam reportedly had been drinking heavily and took #15 300 mg Wellbutrin tabs in an attempt to end his life, reported smoking crack as well. Cam arrived by wheelchair to where skin check was performed and vitals taken - Cam had superficial scratches on gluteus christo, bilateral. Cam is alert and oriented x 4, thought process and speech are clear, mood is positive. Cam states that he is treatment motivated and hoping to return to the program from which he came from and that he is welcomed back. Cam is placed on 15 minute checks for safety, reports no SI and can contract for safety, No SI/HI.
[2023-12-12 20:00] VITALS: BP 128/95; PULSE 82; RESP 16; TEMP 36.9; O2SAT 97
[2023-12-12] MEDS: methocarbamoL 750 MG TABLET PO (20:46)
[2023-12-12 20:47] VITALS: BP 128/95
[2023-12-12] MEDS: Zolpidem Tartrate 5 MG TABLET 10 MG PO (20:47)
[2023-12-12] MEDS: Prazosin HCL 5 MG CAPSULE PO (20:47)
[2023-12-12] MEDS: Gabapentin 400 MG CAPSULE 800 MG PO (20:47)
[2023-12-12] MEDS: Sennosides 8.6 MG TABLET PO (20:47)
[2023-12-12] MEDS: traZODone HCL 100 MG TABLET PO (20:47)
[2023-12-12] MEDS: LORazepam 1 MG TABLET PO (20:47)
[2023-12-13] MEDS: LORazepam 1 MG TABLET 2 MG PO ×6 (00:59→19:25)
[2023-12-13 08:00] VITALS: BP 128/72; PULSE 64; RESP 16; TEMP 36.4; O2SAT 97
[2023-12-13 08:08] LABS: Estimated Average Glucose 108 mg/dL; Hemoglobin A1c % 5.4 % (<6.0)
[2023-12-13 08:24] LABS: Cholesterol 182 mg/dL (<200); HDL Cholesterol 44 mg/dL (>40); LDL Cholesterol Calculated 102 mg/dL (<100); Magnesium 2.2 mg/dL (1.6-2.6); Triglycerides 181 mg/dL (<150)
[2023-12-13] MEDS: Methylphenidate HCl 10 MG TABLET PO ×2 (08:32→14:28)
[2023-12-13] MEDS: buPROPion HCl XL 150 MG TAB.ER.24H 450 MG PO (08:32)
[2023-12-13] MEDS: Buprenorphine/Naloxone 8/2 mg FILM 1 FILM SUBLINGUAL ×3 (08:32→16:47)
[2023-12-13] MEDS: Gabapentin 400 MG CAPSULE 800 MG PO ×3 (08:32→20:05)
[2023-12-13] MEDS: Sennosides 8.6 MG TABLET PO ×2 (08:32→20:05)
[2023-12-13] MEDS: LORazepam 1 MG TABLET PO ×5 (08:32→23:38)
[2023-12-13] MEDS: Thiamine HCL 100 MG TABLET PO (08:32)
[2023-12-13] MEDS: Nicotine 21 MG PATCH.TD24 TRANSDERMA (08:41)
[2023-12-13 08:45] LABS: Free T4 (Free Thyroxine) 0.85 ng/dL (0.71-1.85); Thyroid Stimulating Hormone 1.88 uIU/mL (0.32-4.0)
[2023-12-13 08:55] LABS: Folate 11.7 ng/mL (> or = 4.0); Vitamin B12 369 pg/mL (200-900)
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
[2023-12-13] MEDS: methocarbamoL 750 MG TABLET PO (11:41)
[2023-12-13] MEDS: QUEtiapine Fumarate 50 MG TABLET PO (11:41)
[2023-12-13 15:15] VITALS: BP 155/79; PULSE 83; RESP 16; TEMP 36.5; O2SAT 98
[2023-12-13] MEDS: Celecoxib 200 MG CAPSULE PO ×2 (15:15→23:38)
[2023-12-13 20:00] VITALS: PULSE 81; RESP 18; TEMP 35.9; O2SAT 98
[2023-12-13 20:05] VITALS: BP 179/84
[2023-12-13] MEDS: Zolpidem Tartrate 5 MG TABLET 10 MG PO (20:05)
[2023-12-13] MEDS: Prazosin HCL 5 MG CAPSULE PO (20:05)
[2023-12-13] MEDS: traZODone HCL 100 MG TABLET PO (20:05)
[2023-12-14] MEDS: LORazepam 1 MG TABLET PO ×9 (04:53→21:54)
[2023-12-14 08:00] VITALS: BP 123/60; PULSE 61; RESP 16; TEMP 36.4; O2SAT 99
[2023-12-14] MEDS: Nicotine 21 MG PATCH.TD24 TRANSDERMA (08:49)
[2023-12-14] MEDS: Sennosides 8.6 MG TABLET PO ×2 (08:50→20:34)
[2023-12-14] MEDS: Buprenorphine/Naloxone 8/2 mg FILM 1 FILM SUBLINGUAL ×3 (08:50→17:25)
[2023-12-14] MEDS: buPROPion HCl XL 150 MG TAB.ER.24H 450 MG PO (08:50)
[2023-12-14] MEDS: Gabapentin 400 MG CAPSULE 800 MG PO ×3 (08:50→20:34)
[2023-12-14] MEDS: Multivitamin TABLET 1 TAB PO (08:50)
[2023-12-14] MEDS: Folic Acid 1 MG TABLET PO (08:51)
[2023-12-14] MEDS: Methylphenidate HCl 10 MG TABLET PO ×2 (08:51→11:03)
[2023-12-14] MEDS: Thiamine HCL 100 MG TABLET PO (08:54)
[2023-12-14] MEDS: metroNIDAZOLE 0.75 % Gel 45 GM TUBE 1 APPL TOPICAL (08:54)
[2023-12-14 12:00] VITALS: BP 130/84; PULSE 88; RESP 16; O2SAT 99
--- NOTE | 2023-12-14 12:41 | P.PNPSI_ITS ---
Subjective Subjective Date of Service: 12/14/23 Reason For Visit: PTSD, Recurrent MDD, s/p overdose, polysubstance u Subjective Notes: Conditional Voluntary Healthcare Proxy: No Guardianship: No Medical Problems Affecting Mental Status: No Interim History: Detox progressing. Today, Lorazepam max 10 mg. Will decrease to 8 mg on 12/14. Pt visable in milieu, engaged. Full med review, timing change of stimulant Discussed relapse and feelings about relapse. Medication Compliance: Yes Side effects from medications: No Attending Groups: Intermittent Review of Systems Acute medical concerns: No Medical Review of Systems: unchanged Review of Systems Review of Systems detoxing Mental Status Exam Mental Status Exam Patient Appearance: Appropriate Patient Orientation: Person, Place, Time and Situation Level of Consciousness: Alert Patient Behavior: Appropriate, Talkative, Cooperative and Good Eye Contact Mood Description: Depressed Affect Description: Flat Patient Cognition Impaired: No Ability to Follow Directions: Good Speech Pattern: Spontaneous Speech Memory Description: Intact and Episodic Impaired Hallucinations: None Delusions: Not Present Perceptual Disturbances: Depersonalization and Derealization Thought Process: Rumination Thought Content: positive for Circumstantial Depressive Symptoms: Increased Anxiety, Increased Fatigue and Thoughts of /Suicide Judgement: Fair Diagnostics Vital Signs (24Hr): Vital Signs - 24 hr 12/13/23 15:15 12/13/23 20:00 12/13/23 20:05 Temperature 97.7 F 96.6 F L Pulse Rate 83 81 Respiratory Rate 16 18 Blood Pressure 155/79 H 179/84 H Pulse Oximetry 98 98 Oxygen Delivery Method Room Air Room Air BMI result Body Mass Index 29.9 Labs Labs: Laboratory Results - last 48 hr 12/13/23 07:42 Estimat Average Glucose 108 Hemoglobin A1c % 5.4 Magnesium 2.2 Triglycerides 181 H Cholesterol 182 LDL Cholesterol, Calc 102 H HDL Cholesterol 44 Vitamin B12 369 Folate 11.7 TSH 1.88 Free T4 0.85 Medications Medications Current Medications Al Hydroxide/Mg Hydroxide (Magnesium Hydrox/Alum Hydrox 30 Ml Oral.Susp) 30 ml PO Q6H PRN PRN Reason: Heartburn/Nausea Buprenorphine/Naloxone (Buprenorphine/Naloxone 8/2 Mg Film) 1 film SUBLINGUAL 0800,1200,1700 [facility] Last Admin: 12/14/23 11:49 Dose: 1 film Bupropion HCl (Bupropion Hcl Xl 150 Mg Tab.Er.24h) 450 mg PO DAILY [facility] Last Admin: 12/14/23 08:50 Dose: 450 mg Celecoxib (Celecoxib 200 Mg Capsule) 200 mg PO BID PRN PRN Reason: hip pain Last Admin: 12/13/23 23:38 Dose: 200 mg Folic Acid (Folic Acid 1 Mg Tablet) 1 mg PO DAILY [facility] Last Admin: 12/14/23 08:51 Dose: 1 mg Gabapentin (Gabapentin 400 Mg Capsule) 800 mg PO TID [facility] Last Admin: 12/14/23 08:50 Dose: 800 mg Hydroxyzine HCl (Hydroxyzine Hcl 50 Mg Tablet) 50 mg PO Q8H PRN PRN Reason: agitation, anxiety Lorazepam (Lorazepam 1 Mg Tablet) 1 mg PO QID [facility] Last Admin: 12/14/23 08:51 Dose: 1 mg Lorazepam (Lorazepam 1 Mg Tablet) 1 mg PO Q4H PRN PRN Reason: CIWA 11+ Last Admin: 12/14/23 11:54 Dose: 1 mg Methocarbamol (Methocarbamol 750 Mg Tablet) 750 mg PO Q8H PRN PRN Reason: pain (4-6) Last Admin: 12/13/23 11:41 Dose: 750 mg Methylphenidate HCl (Methylphenidate Hcl 10 Mg Tablet) 20 mg PO 0800,1500 [facility] Metronidazole (Metronidazole 0.75 % Gel 45 Gm Tube) 1 appl TOPICAL BID [facility] Last Admin: 12/14/23 08:54 Dose: 1 appl Multivitamins/Vitamin C (Multivitamin Tablet) 1 tab PO DAILY [facility] Last Admin: 12/14/23 08:50 Dose: 1 tab Nicotine (Nicotine 21 Mg Patch.Td24) 21 mg TRANSDERMA DAILY PRN PRN Reason: nicotine craving Last Admin: 12/14/23 08:49 Dose: 21 mg Nicotine Polacrilex (Nicotine Polacrilex 2 Mg Gum) 4 mg BUCCAL Q2H PRN PRN Reason: Nicotine Cravings Non-Formulary Medication (1.1% [employer] Prevident) 1 applic PO BID [facility] Prazosin HCl (Prazosin Hcl 5 Mg Capsule) 5 mg PO BEDTIME [facility]; Protocol Last Admin: 12/13/23 20:05 Dose: 5 mg Quetiapine Fumarate (Quetiapine Fumarate 50 Mg Tablet) 50 mg PO BID PRN PRN Reason: agitation Last Admin: 12/13/23 11:41 Dose: 50 mg Senna (Sennosides 8.6 Mg Tablet) 8.6 mg PO BID [facility] Last Admin: 12/14/23 08:50 Dose: 8.6 mg Thiamine HCl (Thiamine Hcl 100 Mg Tablet) 100 mg PO DAILY [facility] Last Admin: 12/14/23 08:54 Dose: 100 mg Trazodone HCl (Trazodone Hcl 100 Mg Tablet) 100 mg PO BEDTIME [facility] Last Admin: 12/13/23 20:05 Dose: 100 mg Zolpidem Tartrate (Zolpidem Tartrate 5 Mg Tablet) 10 mg PO BEDTIME [facility] Last Admin: 12/13/23 20:05 Dose: 10 mg Allergies Allergies Allergy/AdvReac Type Severity Reaction Status Date / Time ketamine AdvReac Severe Agitated Verified 12/08/23 21:32 phenobarbital AdvReac Vomiting Verified 12/08/23 21:32 Assessment & Plan Assessment & Plan (1) MDD (major depressive disorder), recurrent episode, severe: Status: Acute Code(s): F33.2 - Major depressive disorder, recurrent severe without psychotic features (2) Chronic post-traumatic stress disorder (PTSD): Status: Acute Code(s): F43.12 - Post-traumatic stress disorder, chronic (3) Suicide attempt: Status: Acute Code(s): T14.91XA - Suicide attempt, initial encounter (4) Alcohol use disorder: Status: Chronic (5) Cocaine use disorder, moderate, dependence: Status: Acute Code(s): F14.20 - Cocaine dependence, uncomplicated Plan PTSD, Recurrent MDD, Alcohol, Cocaine Use Disorder. S/P suicide attempt via OD. Plan: Admit, CV 15 minute checks Collateral contact Metronidazole Gel 0.75% to roseacea effected areas Continue regime Complete detox- pt scoring very high on CIWA. -Ativan 1 mg QID scheduled -Ativan 1 mg q 4 h prn CIWA 11+ -Total Ativan given 12/13/23 13 mg -Decrease to 10 mg 12/14/23- 4 mg scheduled, 1 mg q 4 hours prn CIWA 11+ Aftercare planning with team. Today, pt is requesting CSS. MVI, Folate, Thiamine 12/13: Continue regime On 12/14 for detox -ativan 1 mg qid scheduled -ativan 1 mg q 6 hours prn CIWA 11+ -totals 13 mg 12/12; 10 mg 12/13; 8 mg 12/14 Reason for continued inpatient stay Substantial Risk for: rapid decompensation and med/psych decompensation Time Spent With Patient Time: Total time managing care of this patient today ____ minutes.
[2023-12-14] MEDS: Methylphenidate HCl 10 MG TABLET 20 MG PO (14:03)
[2023-12-14 20:00] VITALS: BP 150/75; PULSE 94; TEMP 36.4; O2SAT 94
[2023-12-14] MEDS: traZODone HCL 100 MG TABLET PO (20:34)
[2023-12-14] MEDS: Prazosin HCL 5 MG CAPSULE PO (20:34)
[2023-12-14] MEDS: Zolpidem Tartrate 5 MG TABLET 10 MG PO (20:35)
[2023-12-14] MEDS: QUEtiapine Fumarate 50 MG TABLET PO (21:56)
[2023-12-15 08:00] VITALS: BP 108/55; PULSE 61; RESP 16; TEMP 36.8; O2SAT 98
[2023-12-15] MEDS: LORazepam 1 MG TABLET PO ×7 (08:27→21:11)
[2023-12-15] MEDS: Sennosides 8.6 MG TABLET PO ×2 (08:27→20:30)
[2023-12-15] MEDS: Folic Acid 1 MG TABLET PO (08:27)
[2023-12-15] MEDS: Multivitamin TABLET 1 TAB PO (08:28)
[2023-12-15] MEDS: Methylphenidate HCl 10 MG TABLET 20 MG PO ×2 (08:29→13:20)
[2023-12-15] MEDS: buPROPion HCl XL 150 MG TAB.ER.24H 450 MG PO (08:29)
[2023-12-15] MEDS: Thiamine HCL 100 MG TABLET PO (08:30)
[2023-12-15] MEDS: Gabapentin 400 MG CAPSULE 800 MG PO ×3 (08:30→20:29)
[2023-12-15] MEDS: Buprenorphine/Naloxone 8/2 mg FILM 1 FILM SUBLINGUAL ×3 (09:50→17:03)
[2023-12-15] MEDS: metroNIDAZOLE 0.75 % Gel 45 GM TUBE 1 APPL TOPICAL (09:50)
[2023-12-15] MEDS: Nicotine 21 MG PATCH.TD24 TRANSDERMA (09:56)
[2023-12-15] MEDS: Celecoxib 200 MG CAPSULE PO (14:11)
[2023-12-15] MEDS: Sennosides/Docusate Sodium TABLET 2 TAB PO (17:02)
--- NOTE | 2023-12-15 17:04 | P.PNPSI_ITS ---
Subjective Subjective Date of Service: 12/15/23 Reason For Visit: PTSD, Recurrent MDD, s/p overdose, polysubstance u Subjective Notes: Conditional Voluntary Healthcare Proxy: No Guardianship: No Medical Problems Affecting Mental Status: No Interim History: Detox continues CIWA q4h Lorazepam tapering Tolerating regime Medication Compliance: Yes Side effects from medications: No Attending Groups: Intermittent Review of Systems Acute medical concerns: No Medical Review of Systems: unchanged Review of Systems Review of Systems GI sx Mental Status Exam Mental Status Exam Patient Appearance: Appropriate Patient Orientation: Person, Place, Time and Situation Level of Consciousness: Alert Patient Behavior: Appropriate, Talkative, Cooperative and Good Eye Contact Mood Description: Depressed Affect Description: Flat Patient Cognition Impaired: No Ability to Follow Directions: Good Speech Pattern: Spontaneous Speech Memory Description: Intact and Episodic Impaired Hallucinations: None Delusions: Not Present Perceptual Disturbances: Depersonalization and Derealization Thought Process: Rumination Thought Content: positive for Circumstantial Depressive Symptoms: Increased Anxiety, Increased Fatigue and Thoughts of /Suicide Judgement: Fair Diagnostics Vital Signs (24Hr): Vital Signs - 24 hr 12/14/23 20:00 12/15/23 08:00 Temperature 97.5 F 98.2 F Pulse Rate 94 61 Respiratory Rate 16 Blood Pressure 150/75 H 108/55 L Pulse Oximetry 94 98 Oxygen Delivery Method Room Air Room Air BMI result Body Mass Index 29.9 Medications Medications Current Medications Al Hydroxide/Mg Hydroxide (Magnesium Hydrox/Alum Hydrox 30 Ml Oral.Susp) 30 ml PO Q6H PRN PRN Reason: Heartburn/Nausea Buprenorphine/Naloxone (Buprenorphine/Naloxone 8/2 Mg Film) 1 film SUBLINGUAL 0800,1200,1700 [facility] Last Admin: 12/15/23 17:03 Dose: 1 film Bupropion HCl (Bupropion Hcl Xl 150 Mg Tab.Er.24h) 450 mg PO DAILY [facility] Last Admin: 12/15/23 08:29 Dose: 450 mg Celecoxib (Celecoxib 200 Mg Capsule) 200 mg PO BID PRN PRN Reason: hip pain Last Admin: 12/15/23 14:11 Dose: 200 mg Folic Acid (Folic Acid 1 Mg Tablet) 1 mg PO DAILY [facility] Last Admin: 12/15/23 08:27 Dose: 1 mg Gabapentin (Gabapentin 400 Mg Capsule) 800 mg PO TID [facility] Last Admin: 12/15/23 14:36 Dose: 800 mg Hydroxyzine HCl (Hydroxyzine Hcl 50 Mg Tablet) 50 mg PO Q8H PRN PRN Reason: agitation, anxiety Lorazepam (Lorazepam 1 Mg Tablet) 1 mg PO QID [facility] Last Admin: 12/15/23 17:02 Dose: 1 mg Lorazepam (Lorazepam 1 Mg Tablet) 1 mg PO Q4H PRN PRN Reason: CIWA 11+,Max 4mg qd prn Stop: 12/16/23 00:00 Lorazepam (Lorazepam 0.5 Mg Tablet) 0.5 mg PO Q4H PRN PRN Reason: CIWA 11+,Max 2 mg prn Stop: 12/17/23 00:00 Methocarbamol (Methocarbamol 750 Mg Tablet) 750 mg PO Q8H PRN PRN Reason: pain (4-6) Last Admin: 12/13/23 11:41 Dose: 750 mg Methylphenidate HCl (Methylphenidate Hcl 10 Mg Tablet) 20 mg PO 0800,1400 [facility] Last Admin: 12/15/23 13:20 Dose: 20 mg Metronidazole (Metronidazole 0.75 % Gel 45 Gm Tube) 1 appl TOPICAL BID [facility] Last Admin: 12/15/23 09:50 Dose: 1 appl Multivitamins/Vitamin C (Multivitamin Tablet) 1 tab PO DAILY [facility] Last Admin: 12/15/23 08:28 Dose: 1 tab Nicotine (Nicotine 21 Mg Patch.Td24) 21 mg TRANSDERMA DAILY PRN PRN Reason: nicotine craving Last Admin: 12/15/23 09:56 Dose: 21 mg Nicotine Polacrilex (Nicotine Polacrilex 2 Mg Gum) 4 mg BUCCAL Q2H PRN PRN Reason: Nicotine Cravings Prazosin HCl (Prazosin Hcl 5 Mg Capsule) 5 mg PO BEDTIME [facility]; Protocol Last Admin: 12/14/23 20:34 Dose: 5 mg Quetiapine Fumarate (Quetiapine Fumarate 50 Mg Tablet) 50 mg PO BID PRN PRN Reason: agitation Last Admin: 12/14/23 21:56 Dose: 50 mg Senna (Sennosides 8.6 Mg Tablet) 8.6 mg PO BID [facility] Last Admin: 12/15/23 08:27 Dose: 8.6 mg Senna/Docusate Sodium (Sennosides/Docusate Sodium Tablet) 2 tab PO DAILY [facility] Last Admin: 12/15/23 17:02 Dose: 2 tab Thiamine HCl (Thiamine Hcl 100 Mg Tablet) 100 mg PO DAILY [facility] Last Admin: 12/15/23 08:30 Dose: 100 mg Trazodone HCl (Trazodone Hcl 100 Mg Tablet) 100 mg PO BEDTIME [facility] Last Admin: 12/14/23 20:34 Dose: 100 mg Zolpidem Tartrate (Zolpidem Tartrate 5 Mg Tablet) 10 mg PO BEDTIME [facility] Last Admin: 12/14/23 20:35 Dose: 10 mg Allergies Allergies Allergy/AdvReac Type Severity Reaction Status Date / Time ketamine AdvReac Severe Agitated Verified 12/08/23 21:32 phenobarbital AdvReac Vomiting Verified 12/08/23 21:32 Assessment & Plan Assessment & Plan (1) MDD (major depressive disorder), recurrent episode, severe: Status: Acute Code(s): F33.2 - Major depressive disorder, recurrent severe without psychotic features (2) Chronic post-traumatic stress disorder (PTSD): Status: Acute Code(s): F43.12 - Post-traumatic stress disorder, chronic (3) Suicide attempt: Status: Acute Code(s): T14.91XA - Suicide attempt, initial encounter (4) Alcohol use disorder: Status: Chronic (5) Cocaine use disorder, moderate, dependence: Status: Acute Code(s): F14.20 - Cocaine dependence, uncomplicated Plan PTSD, Recurrent MDD, Alcohol, Cocaine Use Disorder. S/P suicide attempt via OD. Plan: Admit, CV 15 minute checks Collateral contact Metronidazole Gel 0.75% to roseacea effected areas Continue regime Complete detox- pt scoring very high on CIWA. -Ativan 1 mg QID scheduled -Ativan 1 mg q 4 h prn CIWA 11+ -Total Ativan given 12/13/23 13 mg -Decrease to 10 mg 12/14/23- 4 mg scheduled, 1 mg q 4 hours prn CIWA 11+ Aftercare planning with team. Today, pt is requesting CSS. MVI, Folate, Thiamine 12/13: Continue regime On 12/14 for detox -ativan 1 mg qid scheduled -ativan 1 mg q 6 hours prn CIWA 11+ -totals 13 mg 12/12; 10 mg 12/13; 8 mg 12/14 12/14 Continue regime On 12/15 for detox -ativan 1 mg qid scheduled -ativan 1 mg q6h prn CIWA 11+ -total 6 mg 12/15 Reason for continued inpatient stay Substantial Risk for: rapid decompensation Time Spent With Patient Time: Total time managing care of this patient today ____ minutes.
[2023-12-15 20:00] VITALS: BP 185/78; PULSE 86; RESP 18; TEMP 36.5; O2SAT 100
[2023-12-15 20:29] VITALS: BP 135/78
[2023-12-15] MEDS: Zolpidem Tartrate 5 MG TABLET 10 MG PO (20:29)
[2023-12-15] MEDS: Prazosin HCL 5 MG CAPSULE PO (20:29)
[2023-12-15] MEDS: traZODone HCL 100 MG TABLET PO (20:30)
[2023-12-16] MEDS: LORazepam 0.5 MG TABLET PO ×4 (00:48→16:21)
[2023-12-16 08:04] VITALS: BP 139/66; PULSE 66; RESP 16; TEMP 36; O2SAT 100
[2023-12-16] MEDS: LORazepam 1 MG TABLET PO ×4 (08:32→20:03)
[2023-12-16] MEDS: Multivitamin TABLET 1 TAB PO (08:32)
[2023-12-16] MEDS: Sennosides/Docusate Sodium TABLET 2 TAB PO (08:33)
[2023-12-16] MEDS: Folic Acid 1 MG TABLET PO (08:33)
[2023-12-16] MEDS: Gabapentin 400 MG CAPSULE 800 MG PO ×3 (08:34→20:03)
[2023-12-16] MEDS: Methylphenidate HCl 10 MG TABLET 20 MG PO ×2 (08:34→13:48)
[2023-12-16] MEDS: Thiamine HCL 100 MG TABLET PO (08:35)
[2023-12-16] MEDS: buPROPion HCl XL 150 MG TAB.ER.24H 450 MG PO (08:35)
[2023-12-16] MEDS: Sennosides 8.6 MG TABLET PO ×2 (08:35→20:03)
[2023-12-16] MEDS: metroNIDAZOLE 0.75 % Gel 45 GM TUBE 1 APPL TOPICAL (09:00)
[2023-12-16] MEDS: Buprenorphine/Naloxone 8/2 mg FILM 1 FILM SUBLINGUAL ×3 (09:00→16:54)
[2023-12-16] MEDS: Nicotine 21 MG PATCH.TD24 TRANSDERMA (09:04)
--- NOTE | 2023-12-16 11:46 | HO.PSYCHPN ---
Subjective Subjective Date of Service: 12/16/23 Reason For Visit: PTSD, Recurrent MDD, s/p overdose, polysubstance u Subjective Notes: Conditional Voluntary Healthcare Proxy: No Guardianship: No Medical Problems Affecting Mental Status: No Interim History: Continues with high CIWA values. Reports some AH, VH-shadows, music Weakness, slightly improved appetite and sleep Discussed aftercare planning. Pt's sponsor in [place] and his have offered pt housing while he waits to return to the program he left. He is considering this. Medication Compliance: Yes Side effects from medications: No Attending Groups: Yes Review of Systems Acute medical concerns: No Medical Review of Systems: unchanged Review of Systems Review of Systems detox symptoms present however managed with regime. Mental Status Exam Mental Status Exam Patient Appearance: Appropriate Patient Orientation: Person, Place, Time and Situation Level of Consciousness: Alert Patient Behavior: Appropriate, Talkative, Cooperative and Good Eye Contact Mood Description: Depressed Affect Description: Flat Patient Cognition Impaired: No Ability to Follow Directions: Good Speech Pattern: Spontaneous Speech Memory Description: Intact and Episodic Impaired Hallucinations: None Delusions: Not Present Perceptual Disturbances: Depersonalization and Derealization Thought Process: Rumination Thought Content: positive for Circumstantial Depressive Symptoms: Increased Anxiety, Increased Fatigue and Thoughts of /Suicide Judgement: Fair Diagnostics Vital Signs (24Hr): Vital Signs - 24 hr 12/15/23 20:00 12/15/23 20:29 12/16/23 08:04 Temperature 97.7 F 96.8 F Pulse Rate 86 66 Respiratory Rate 18 16 Blood Pressure 185/78 H 135/78 139/66 Pulse Oximetry 100 100 Oxygen Delivery Method Room Air Room Air BMI result Body Mass Index 29.9 Medications Medications Current Medications Al Hydroxide/Mg Hydroxide (Magnesium Hydrox/Alum Hydrox 30 Ml Oral.Susp) 30 ml PO Q6H PRN PRN Reason: Heartburn/Nausea Buprenorphine/Naloxone (Buprenorphine/Naloxone 8/2 Mg Film) 1 film SUBLINGUAL 0800,1200,1700 [facility] Last Admin: 12/16/23 09:00 Dose: 1 film Bupropion HCl (Bupropion Hcl Xl 150 Mg Tab.Er.24h) 450 mg PO DAILY [facility] Last Admin: 12/16/23 08:35 Dose: 450 mg Celecoxib (Celecoxib 200 Mg Capsule) 200 mg PO BID PRN PRN Reason: hip pain Last Admin: 12/15/23 14:11 Dose: 200 mg Folic Acid (Folic Acid 1 Mg Tablet) 1 mg PO DAILY [facility] Last Admin: 12/16/23 08:33 Dose: 1 mg Gabapentin (Gabapentin 400 Mg Capsule) 800 mg PO TID [facility] Last Admin: 12/16/23 08:34 Dose: 800 mg Hydroxyzine HCl (Hydroxyzine Hcl 50 Mg Tablet) 50 mg PO Q8H PRN PRN Reason: agitation, anxiety Lorazepam (Lorazepam 1 Mg Tablet) 1 mg PO QID [facility] Last Admin: 12/16/23 08:32 Dose: 1 mg Lorazepam (Lorazepam 0.5 Mg Tablet) 0.5 mg PO Q4H PRN PRN Reason: CIWA 11+,Max 2 mg prn Stop: 12/17/23 00:00 Last Admin: 12/16/23 08:32 Dose: 0.5 mg Methocarbamol (Methocarbamol 750 Mg Tablet) 750 mg PO Q8H PRN PRN Reason: pain (4-6) Last Admin: 12/13/23 11:41 Dose: 750 mg Methylphenidate HCl (Methylphenidate Hcl 10 Mg Tablet) 20 mg PO 0800,1400 [facility] Last Admin: 12/16/23 08:34 Dose: 20 mg Metronidazole (Metronidazole 0.75 % Gel 45 Gm Tube) 1 appl TOPICAL BID [facility] Last Admin: 12/16/23 09:00 Dose: 1 appl Multivitamins/Vitamin C (Multivitamin Tablet) 1 tab PO DAILY [facility] Last Admin: 12/16/23 08:32 Dose: 1 tab Nicotine (Nicotine 21 Mg Patch.Td24) 21 mg TRANSDERMA DAILY PRN PRN Reason: nicotine craving Last Admin: 12/16/23 09:04 Dose: 21 mg Nicotine Polacrilex (Nicotine Polacrilex 2 Mg Gum) 4 mg BUCCAL Q2H PRN PRN Reason: Nicotine Cravings Prazosin HCl (Prazosin Hcl 5 Mg Capsule) 5 mg PO BEDTIME [facility]; Protocol Last Admin: 12/15/23 20:29 Dose: 5 mg Quetiapine Fumarate (Quetiapine Fumarate 50 Mg Tablet) 50 mg PO BID PRN PRN Reason: agitation Last Admin: 12/14/23 21:56 Dose: 50 mg Senna (Sennosides 8.6 Mg Tablet) 8.6 mg PO BID [facility] Last Admin: 12/16/23 08:35 Dose: 8.6 mg Senna/Docusate Sodium (Sennosides/Docusate Sodium Tablet) 2 tab PO DAILY [facility] Last Admin: 12/16/23 08:33 Dose: 2 tab Thiamine HCl (Thiamine Hcl 100 Mg Tablet) 100 mg PO DAILY [facility] Last Admin: 12/16/23 08:35 Dose: 100 mg Trazodone HCl (Trazodone Hcl 100 Mg Tablet) 100 mg PO BEDTIME [facility] Last Admin: 12/15/23 20:30 Dose: 100 mg Zolpidem Tartrate (Zolpidem Tartrate 5 Mg Tablet) 10 mg PO BEDTIME [facility] Last Admin: 12/15/23 20:29 Dose: 10 mg Allergies Allergies Allergy/AdvReac Type Severity Reaction Status Date / Time ketamine AdvReac Severe Agitated Verified 12/08/23 21:32 phenobarbital AdvReac Vomiting Verified 12/08/23 21:32 Assessment & Plan Assessment & Plan (1) MDD (major depressive disorder), recurrent episode, severe: Status: Acute Code(s): F33.2 - Major depressive disorder, recurrent severe without psychotic features (2) Chronic post-traumatic stress disorder (PTSD): Status: Acute Code(s): F43.12 - Post-traumatic stress disorder, chronic (3) Suicide attempt: Status: Acute Code(s): T14.91XA - Suicide attempt, initial encounter (4) Alcohol use disorder: Status: Chronic (5) Cocaine use disorder, moderate, dependence: Status: Acute Code(s): F14.20 - Cocaine dependence, uncomplicated Plan PTSD, Recurrent MDD, Alcohol, Cocaine Use Disorder. S/P suicide attempt via OD. Plan: Admit, CV 15 minute checks Collateral contact Metronidazole Gel 0.75% to roseacea effected areas Continue regime Complete detox- pt scoring very high on CIWA. -Ativan 1 mg QID scheduled -Ativan 1 mg q 4 h prn CIWA 11+ -Total Ativan given 12/13/23 13 mg -Decrease to 10 mg 12/14/23- 4 mg scheduled, 1 mg q 4 hours prn CIWA 11+ Aftercare planning with team. Today, pt is requesting CSS. MVI, Folate, Thiamine 12/13: Continue regime On 12/14 for detox -ativan 1 mg qid scheduled -ativan 1 mg q 6 hours prn CIWA 11+ -totals 13 mg 12/12; 10 mg 12/13; 8 mg 12/14 12/14 Continue regime On 12/15 for detox -ativan 1 mg qid scheduled -ativan 1 mg q6h prn CIWA 11+ -total 6 mg 12/15 12/15 Continue regime Continue 6 mg max for 12/16. Reason for continued inpatient stay Substantial Risk for: rapid decompensation Time Spent With Patient Time: Total time managing care of this patient today ____ minutes.
[2023-12-16] MEDS: QUEtiapine Fumarate 50 MG TABLET PO ×2 (12:24→18:07)
[2023-12-16] MEDS: Celecoxib 200 MG CAPSULE PO (16:10)
[2023-12-16] MEDS: Nicotine Polacrilex 2 MG GUM 4 MG BUCCAL (18:07)
[2023-12-16 19:46] VITALS: BP 174/88; PULSE 88; RESP 16; TEMP 36.3; O2SAT 97
[2023-12-16] MEDS: traZODone HCL 100 MG TABLET PO (20:03)
[2023-12-16] MEDS: Zolpidem Tartrate 5 MG TABLET 10 MG PO (20:03)
[2023-12-16] MEDS: Prazosin HCL 5 MG CAPSULE PO (20:03)
[2023-12-17 08:00] VITALS: BP 111/54; PULSE 63; RESP 16; TEMP 36.2; O2SAT 98
[2023-12-17] MEDS: Sennosides 8.6 MG TABLET PO ×2 (08:39→20:13)
[2023-12-17] MEDS: Multivitamin TABLET 1 TAB PO (08:40)
[2023-12-17] MEDS: Buprenorphine/Naloxone 8/2 mg FILM 1 FILM SUBLINGUAL ×3 (08:40→16:37)
[2023-12-17] MEDS: Methylphenidate HCl 10 MG TABLET 20 MG PO ×2 (08:40→13:24)
[2023-12-17] MEDS: Gabapentin 400 MG CAPSULE 800 MG PO ×3 (08:40→20:13)
[2023-12-17] MEDS: Folic Acid 1 MG TABLET PO (08:40)
[2023-12-17] MEDS: buPROPion HCl XL 150 MG TAB.ER.24H 450 MG PO (08:40)
[2023-12-17] MEDS: Sennosides/Docusate Sodium TABLET 2 TAB PO (08:40)
[2023-12-17] MEDS: LORazepam 1 MG TABLET PO ×3 (08:40→18:37)
[2023-12-17] MEDS: Thiamine HCL 100 MG TABLET PO (08:40)
[2023-12-17] MEDS: LORazepam 0.5 MG TABLET PO (10:01)
--- NOTE | 2023-12-17 10:28 | HO.PSYCHPN ---
Subjective Subjective Date of Service: 12/17/23 Reason For Visit: PTSD, Recurrent MDD, s/p overdose, polysubstance u Subjective Notes: Conditional Voluntary Interim History: Pt has decided to discharge on 12/18. As a result we will increase the pace of Lorazepam taper, 3 mg today total, 1.5 mg 12/17 total with #5 Lorazepam 1 mg sent with pt upon discharge for prn use. Reviewed with pt and he is approving of this plan. Denies SI/HI/AH/VH. Withdrawal sx are managable Medication Compliance: Yes Side effects from medications: No Attending Groups: Intermittent Review of Systems Acute medical concerns: No Medical Review of Systems: unchanged Review of Systems Review of Systems Yes all other systems are reviewed and are negative Mental Status Exam Mental Status Exam Patient Appearance: Appropriate Patient Orientation: Person, Place, Time and Situation Level of Consciousness: Alert Patient Behavior: Appropriate, Talkative, Cooperative and Good Eye Contact Mood Description: Depressed Affect Description: Flat Patient Cognition Impaired: No Ability to Follow Directions: Good Speech Pattern: Spontaneous Speech Memory Description: Intact and Episodic Impaired Hallucinations: None Delusions: Not Present Perceptual Disturbances: Depersonalization and Derealization Thought Process: Rumination Thought Content: positive for Circumstantial Depressive Symptoms: Increased Anxiety and Increased Fatigue Judgement: Fair Diagnostics Vital Signs (24Hr): Vital Signs - 24 hr 12/16/23 19:46 12/17/23 08:00 Temperature 97.3 F 97.1 F Pulse Rate 88 63 Respiratory Rate 16 16 Blood Pressure 174/88 H 111/54 L Pulse Oximetry 97 98 Oxygen Delivery Method Room Air BMI result Body Mass Index 29.9 Medications Medications Current Medications Al Hydroxide/Mg Hydroxide (Magnesium Hydrox/Alum Hydrox 30 Ml Oral.Susp) 30 ml PO Q6H PRN PRN Reason: Heartburn/Nausea Buprenorphine/Naloxone (Buprenorphine/Naloxone 8/2 Mg Film) 1 film SUBLINGUAL 0800,1200,1700 [facility] Last Admin: 12/17/23 08:40 Dose: 1 film Bupropion HCl (Bupropion Hcl Xl 150 Mg Tab.Er.24h) 450 mg PO DAILY [facility] Last Admin: 12/17/23 08:40 Dose: 450 mg Celecoxib (Celecoxib 200 Mg Capsule) 200 mg PO BID PRN PRN Reason: hip pain Last Admin: 12/16/23 16:10 Dose: 200 mg Folic Acid (Folic Acid 1 Mg Tablet) 1 mg PO DAILY [facility] Last Admin: 12/17/23 08:40 Dose: 1 mg Gabapentin (Gabapentin 400 Mg Capsule) 800 mg PO TID [facility] Last Admin: 12/17/23 08:40 Dose: 800 mg Hydroxyzine HCl (Hydroxyzine Hcl 50 Mg Tablet) 50 mg PO Q8H PRN PRN Reason: agitation, anxiety Lorazepam (Lorazepam 1 Mg Tablet) 1 mg PO TID [facility] Stop: 12/18/23 00:00 Lorazepam (Lorazepam 0.5 Mg Tablet) 0.5 mg PO TID [facility] Stop: 12/19/23 00:00 Methocarbamol (Methocarbamol 750 Mg Tablet) 750 mg PO Q8H PRN PRN Reason: pain (4-6) Last Admin: 12/13/23 11:41 Dose: 750 mg Methylphenidate HCl (Methylphenidate Hcl 10 Mg Tablet) 20 mg PO 0800,1400 [facility] Last Admin: 12/17/23 08:40 Dose: 20 mg Metronidazole (Metronidazole 0.75 % Gel 45 Gm Tube) 1 appl TOPICAL BID [facility] Last Admin: 12/17/23 10:03 Dose: Not Given Multivitamins/Vitamin C (Multivitamin Tablet) 1 tab PO DAILY [facility] Last Admin: 12/17/23 08:40 Dose: 1 tab Nicotine (Nicotine 21 Mg Patch.Td24) 21 mg TRANSDERMA DAILY PRN PRN Reason: nicotine craving Last Admin: 12/16/23 09:04 Dose: 21 mg Nicotine Polacrilex (Nicotine Polacrilex 2 Mg Gum) 4 mg BUCCAL Q2H PRN PRN Reason: Nicotine Cravings Last Admin: 12/16/23 18:07 Dose: 4 mg Prazosin HCl (Prazosin Hcl 5 Mg Capsule) 5 mg PO BEDTIME [facility]; Protocol Last Admin: 12/16/23 20:03 Dose: 5 mg Quetiapine Fumarate (Quetiapine Fumarate 50 Mg Tablet) 50 mg PO BID PRN PRN Reason: agitation Last Admin: 12/16/23 18:07 Dose: 50 mg Senna (Sennosides 8.6 Mg Tablet) 8.6 mg PO BID [facility] Last Admin: 12/17/23 08:39 Dose: 8.6 mg Senna/Docusate Sodium (Sennosides/Docusate Sodium Tablet) 2 tab PO DAILY [facility] Last Admin: 12/17/23 08:40 Dose: 2 tab Thiamine HCl (Thiamine Hcl 100 Mg Tablet) 100 mg PO DAILY [facility] Last Admin: 12/17/23 08:40 Dose: 100 mg Trazodone HCl (Trazodone Hcl 100 Mg Tablet) 100 mg PO BEDTIME [facility] Last Admin: 12/16/23 20:03 Dose: 100 mg Zolpidem Tartrate (Zolpidem Tartrate 5 Mg Tablet) 10 mg PO BEDTIME [facility] Last Admin: 12/16/23 20:03 Dose: 10 mg Allergies Allergies Allergy/AdvReac Type Severity Reaction Status Date / Time ketamine AdvReac Severe Agitated Verified 12/08/23 21:32 phenobarbital AdvReac Vomiting Verified 12/08/23 21:32 Assessment & Plan Assessment & Plan (1) MDD (major depressive disorder), recurrent episode, severe: Status: Acute Code(s): F33.2 - Major depressive disorder, recurrent severe without psychotic features (2) Chronic post-traumatic stress disorder (PTSD): Status: Acute Code(s): F43.12 - Post-traumatic stress disorder, chronic (3) Suicide attempt: Status: Acute Code(s): T14.91XA - Suicide attempt, initial encounter (4) Alcohol use disorder: Status: Chronic (5) Cocaine use disorder, moderate, dependence: Status: Acute Code(s): F14.20 - Cocaine dependence, uncomplicated Plan PTSD, Recurrent MDD, Alcohol, Cocaine Use Disorder. S/P suicide attempt via OD. Plan: Admit, CV 15 minute checks Collateral contact Metronidazole Gel 0.75% to roseacea effected areas Continue regime Complete detox- pt scoring very high on CIWA. -Ativan 1 mg QID scheduled -Ativan 1 mg q 4 h prn CIWA 11+ -Total Ativan given 12/13/23 13 mg -Decrease to 10 mg 12/14/23- 4 mg scheduled, 1 mg q 4 hours prn CIWA 11+ Aftercare planning with team. Today, pt is requesting CSS. MVI, Folate, Thiamine 12/13: Continue regime On 12/14 for detox -ativan 1 mg qid scheduled -ativan 1 mg q 6 hours prn CIWA 11+ -totals 13 mg 12/12; 10 mg 12/13; 8 mg 12/14 12/14 Continue regime On 12/15 for detox -ativan 1 mg qid scheduled -ativan 1 mg q6h prn CIWA 11+ -total 6 mg 12/15 12/15 Continue regime Continue 6 mg max for 12/16. 12/16: Pt requests discharge 12/18. Will increase pace of tapering of Lorazepam 3 mg today 1.5 mg 12/17 Will give #5 1 mg tabs upon discharge to complete the taper Pt is in agreement. Reason for continued inpatient stay Substantial Risk for: rapid decompensation and med/psych decompensation Time Spent With Patient Time: Total time managing care of this patient today ____ minutes.
[2023-12-17] MEDS: Nicotine 21 MG PATCH.TD24 TRANSDERMA (10:53)
[2023-12-17] MEDS: Nicotine Polacrilex 2 MG GUM 4 MG BUCCAL ×3 (10:53→16:37)
[2023-12-17] MEDS: QUEtiapine Fumarate 50 MG TABLET PO (16:36)
[2023-12-17 20:00] VITALS: BP 134/91; PULSE 85; RESP 16; TEMP 36.1; O2SAT 97
[2023-12-17] MEDS: Prazosin HCL 5 MG CAPSULE PO (20:13)
[2023-12-17] MEDS: Zolpidem Tartrate 5 MG TABLET 10 MG PO (20:13)
[2023-12-17] MEDS: traZODone HCL 100 MG TABLET PO (20:13)
[2023-12-18 08:00] VITALS: BP 116/58; PULSE 65; RESP 16; TEMP 36.7; O2SAT 96
[2023-12-18] MEDS: Buprenorphine/Naloxone 8/2 mg FILM 1 FILM SUBLINGUAL ×3 (08:57→16:34)
[2023-12-18] MEDS: Nicotine 21 MG PATCH.TD24 TRANSDERMA (08:57)
[2023-12-18] MEDS: Sennosides/Docusate Sodium TABLET 2 TAB PO (08:58)
[2023-12-18] MEDS: Gabapentin 400 MG CAPSULE 800 MG PO ×3 (08:58→20:35)
[2023-12-18] MEDS: Methylphenidate HCl 10 MG TABLET 20 MG PO ×2 (08:58→13:17)
[2023-12-18] MEDS: buPROPion HCl XL 150 MG TAB.ER.24H 450 MG PO (08:58)
[2023-12-18] MEDS: Thiamine HCL 100 MG TABLET PO (08:59)
[2023-12-18] MEDS: Sennosides 8.6 MG TABLET PO ×2 (08:59→20:36)
[2023-12-18] MEDS: Multivitamin TABLET 1 TAB PO (08:59)
[2023-12-18] MEDS: LORazepam 0.5 MG TABLET PO ×3 (08:59→20:36)
[2023-12-18] MEDS: Folic Acid 1 MG TABLET PO (08:59)
[2023-12-18] MEDS: Nicotine Polacrilex 2 MG GUM 4 MG BUCCAL (09:05)
--- NOTE | 2023-12-18 10:54 | HO.PSYCHPN ---
Subjective Subjective Date of Service: 12/18/23 Reason For Visit: PTSD, Recurrent MDD, s/p overdose, polysubstance u Subjective Notes: Conditional Voluntary Healthcare Proxy: No Guardianship: No Medical Problems Affecting Mental Status: No Interim History: Team report some anxiety with increased pace of taper. Med review with pt. Rx sent to [facility] per his request. No SI/HI/AH/VH. Feeling prepared to move to the next stage of his recovery. Medication Compliance: Yes Side effects from medications: No Attending Groups: Yes Review of Systems Acute medical concerns: No Medical Review of Systems: unchanged Review of Systems Review of Systems withdrawal Mental Status Exam Mental Status Exam Patient Appearance: Appropriate Patient Orientation: Person, Place, Time and Situation Level of Consciousness: Alert Patient Behavior: Appropriate, Talkative, Cooperative and Good Eye Contact Mood Description: Depressed Affect Description: Flat Patient Cognition Impaired: No Ability to Follow Directions: Good Speech Pattern: Spontaneous Speech Memory Description: Intact and Episodic Impaired Hallucinations: None Delusions: Not Present Perceptual Disturbances: Depersonalization and Derealization Thought Process: Rumination Thought Content: positive for Circumstantial Depressive Symptoms: Increased Anxiety and Increased Fatigue Judgement: Fair Diagnostics Vital Signs (24Hr): Vital Signs - 24 hr 12/17/23 20:00 Temperature 97.0 F Pulse Rate 85 Respiratory Rate 16 Blood Pressure 134/91 H Pulse Oximetry 97 Oxygen Delivery Method Room Air BMI result Body Mass Index 29.9 Medications Medications Current Medications Al Hydroxide/Mg Hydroxide (Magnesium Hydrox/Alum Hydrox 30 Ml Oral.Susp) 30 ml PO Q6H PRN PRN Reason: Heartburn/Nausea Buprenorphine/Naloxone (Buprenorphine/Naloxone 8/2 Mg Film) 1 film SUBLINGUAL 0800,1200,1700 [facility] Last Admin: 12/18/23 08:57 Dose: 1 film Bupropion HCl (Bupropion Hcl Xl 150 Mg Tab.Er.24h) 450 mg PO DAILY [facility] Last Admin: 12/18/23 08:58 Dose: 450 mg Celecoxib (Celecoxib 200 Mg Capsule) 200 mg PO BID PRN PRN Reason: hip pain Last Admin: 12/16/23 16:10 Dose: 200 mg Folic Acid (Folic Acid 1 Mg Tablet) 1 mg PO DAILY [facility] Last Admin: 12/18/23 08:59 Dose: 1 mg Gabapentin (Gabapentin 400 Mg Capsule) 800 mg PO TID [facility] Last Admin: 12/18/23 08:58 Dose: 800 mg Hydroxyzine HCl (Hydroxyzine Hcl 50 Mg Tablet) 50 mg PO Q8H PRN PRN Reason: agitation, anxiety Lorazepam (Lorazepam 0.5 Mg Tablet) 0.5 mg PO TID [facility] Stop: 12/19/23 00:00 Last Admin: 12/18/23 08:59 Dose: 0.5 mg Methocarbamol (Methocarbamol 750 Mg Tablet) 750 mg PO Q8H PRN PRN Reason: pain (4-6) Last Admin: 12/13/23 11:41 Dose: 750 mg Methylphenidate HCl (Methylphenidate Hcl 10 Mg Tablet) 20 mg PO 0800,1400 [facility] Last Admin: 12/18/23 08:58 Dose: 20 mg Metronidazole (Metronidazole 0.75 % Gel 45 Gm Tube) 1 appl TOPICAL BID [facility] Last Admin: 12/17/23 20:27 Dose: Not Given Multivitamins/Vitamin C (Multivitamin Tablet) 1 tab PO DAILY [facility] Last Admin: 12/18/23 08:59 Dose: 1 tab Nicotine (Nicotine 21 Mg Patch.Td24) 21 mg TRANSDERMA DAILY PRN PRN Reason: nicotine craving Last Admin: 12/18/23 08:57 Dose: 21 mg Nicotine Polacrilex (Nicotine Polacrilex 2 Mg Gum) 4 mg BUCCAL Q2H PRN PRN Reason: Nicotine Cravings Last Admin: 12/18/23 09:05 Dose: 4 mg Prazosin HCl (Prazosin Hcl 5 Mg Capsule) 5 mg PO BEDTIME [facility]; Protocol Last Admin: 12/17/23 20:13 Dose: 5 mg Quetiapine Fumarate (Quetiapine Fumarate 50 Mg Tablet) 50 mg PO BID PRN PRN Reason: agitation Last Admin: 12/17/23 16:36 Dose: 50 mg Senna (Sennosides 8.6 Mg Tablet) 8.6 mg PO BID [facility] Last Admin: 12/18/23 08:59 Dose: 8.6 mg Senna/Docusate Sodium (Sennosides/Docusate Sodium Tablet) 2 tab PO DAILY [facility] Last Admin: 12/18/23 08:58 Dose: 2 tab Thiamine HCl (Thiamine Hcl 100 Mg Tablet) 100 mg PO DAILY [facility] Last Admin: 12/18/23 08:59 Dose: 100 mg Trazodone HCl (Trazodone Hcl 100 Mg Tablet) 100 mg PO BEDTIME [facility] Last Admin: 12/17/23 20:13 Dose: 100 mg Zolpidem Tartrate (Zolpidem Tartrate 5 Mg Tablet) 10 mg PO BEDTIME [facility] Last Admin: 12/17/23 20:13 Dose: 10 mg Allergies Allergies Allergy/AdvReac Type Severity Reaction Status Date / Time ketamine AdvReac Severe Agitated Verified 12/08/23 21:32 phenobarbital AdvReac Vomiting Verified 12/08/23 21:32 Assessment & Plan Assessment & Plan (1) MDD (major depressive disorder), recurrent episode, severe: Status: Acute Code(s): F33.2 - Major depressive disorder, recurrent severe without psychotic features (2) Chronic post-traumatic stress disorder (PTSD): Status: Acute Code(s): F43.12 - Post-traumatic stress disorder, chronic (3) Suicide attempt: Status: Acute Code(s): T14.91XA - Suicide attempt, initial encounter (4) Alcohol use disorder: Status: Chronic (5) Cocaine use disorder, moderate, dependence: Status: Acute Code(s): F14.20 - Cocaine dependence, uncomplicated Plan PTSD, Recurrent MDD, Alcohol, Cocaine Use Disorder. S/P suicide attempt via OD. Plan: Admit, CV 15 minute checks Collateral contact Metronidazole Gel 0.75% to roseacea effected areas Continue regime Complete detox- pt scoring very high on CIWA. -Ativan 1 mg QID scheduled -Ativan 1 mg q 4 h prn CIWA 11+ -Total Ativan given 12/13/23 13 mg -Decrease to 10 mg 12/14/23- 4 mg scheduled, 1 mg q 4 hours prn CIWA 11+ Aftercare planning with team. Today, pt is requesting CSS. MVI, Folate, Thiamine 12/13: Continue regime On 12/14 for detox -ativan 1 mg qid scheduled -ativan 1 mg q 6 hours prn CIWA 11+ -totals 13 mg 12/12; 10 mg 12/13; 8 mg 12/14 12/14 Continue regime On 12/15 for detox -ativan 1 mg qid scheduled -ativan 1 mg q6h prn CIWA 11+ -total 6 mg 12/15 12/15 Continue regime Continue 6 mg max for 12/16. 12/18/23 Discharge 12/19/23. Reason for continued inpatient stay Substantial Risk for: stable for discharge Time Spent With Patient Time: Total time managing care of this patient today ____ minutes.
[2023-12-18] MEDS: hydrOXYzine HCL 50 MG TABLET PO (11:57)
[2023-12-18] MEDS: QUEtiapine Fumarate 50 MG TABLET PO ×2 (12:01→16:35)
[2023-12-18 20:00] VITALS: BP 139/73; PULSE 72; TEMP 36.8
[2023-12-18] MEDS: Zolpidem Tartrate 5 MG TABLET 10 MG PO (20:36)
[2023-12-18 20:37] VITALS: BP 139/73
[2023-12-18] MEDS: Prazosin HCL 5 MG CAPSULE PO (20:37)
[2023-12-18] MEDS: traZODone HCL 100 MG TABLET PO (20:38)
[2023-12-19 08:00] VITALS: BP 118/75; PULSE 67; RESP 18; TEMP 36.3; O2SAT 98
[2023-12-19] MEDS: Sennosides/Docusate Sodium TABLET 2 TAB PO (08:52)
[2023-12-19] MEDS: Methylphenidate HCl 10 MG TABLET 20 MG PO ×2 (08:52→13:04)
[2023-12-19] MEDS: Gabapentin 400 MG CAPSULE 800 MG PO (08:53)
[2023-12-19] MEDS: buPROPion HCl XL 150 MG TAB.ER.24H 450 MG PO (08:53)
[2023-12-19] MEDS: Folic Acid 1 MG TABLET PO (08:53)
[2023-12-19] MEDS: Nicotine 21 MG PATCH.TD24 TRANSDERMA (08:54)
[2023-12-19] MEDS: Thiamine HCL 100 MG TABLET PO (08:54)
[2023-12-19] MEDS: Sennosides 8.6 MG TABLET PO (08:54)
[2023-12-19] MEDS: Multivitamin TABLET 1 TAB PO (08:54)
[2023-12-19] MEDS: Buprenorphine/Naloxone 8/2 mg FILM 1 FILM SUBLINGUAL ×2 (09:12→11:38)
[2023-12-19] MEDS: Celecoxib 200 MG CAPSULE PO (09:40)
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
[2023-12-19] MEDS: LORazepam 1 MG TABLET PO (12:38)
--- NOTE | 2024-01-06 16:56 | P.DS_ITS ---
DS: Providers Provider Date of Service: 12/19/23 Date of admission: 12/12/23 13:02 Date of discharge: 12/19/23 Primary care physician: Gonzales Rust MD Admitting clinician: Joycelyn Jones Attending physician on admission: Vic Campuzano Attending physician on discharge: Vic Campuzano Discharging clinician: Joycelyn Jones DS: Diagnosis Discharge Diagnosis (1) MDD (major depressive disorder), recurrent episode, severe: Status: Acute (2) Chronic post-traumatic stress disorder (PTSD): Status: Acute (3) Suicide attempt: Status: Inactive (4) Alcohol use disorder: Status: Chronic (5) Cocaine use disorder, moderate, dependence: Status: Acute DS: Medications Discharge Medications Home Medications: Previous Rx's ?Medication ?Instructions ?Recorded buprenorphine 8 mg-naloxone 2 mg 1 film sublingual 12/18/23 sublingual film (Suboxone) TID@0800,1200,1700 #10 ea lorazepam 1 mg tablet (Ativan) 1 mg PO DAILY PRN withdrawal 12/18/23 symptoms #5 tabs methylphenidate HCl 10 mg tablet 20 mg (2 x 10 mg) PO 0800,1400 #60 12/18/23 tabs metronidazole 0.75 % topical gel 1 appl topical BID #45 grams 12/18/23 naloxone 4 mg/actuation nasal 4 mg intranasal Q2M PRN opioid 12/18/23 spray (Rextovy) overdose #2 ea prazosin 5 mg capsule 5 mg PO BEDTIME #30 caps 12/18/23 sennosides 8.6 mg-docusate sodium 2 tab PO DAILY #60 tabs 12/18/23 50 mg tablet (Senna Plus) trazodone 100 mg tablet 100 mg PO BEDTIME PRN Insomnia #30 12/18/23 tabs zolpidem 10 mg tablet (Ambien) 10 mg PO BEDTIME PRN insomnia #10 12/18/23 tabs bupropion HCl 150 mg 24 hr tablet, 150 mg PO QAM 30 days #30 tabs 12/19/23 extended release (Wellbutrin XL) bupropion HCl 300 mg 24 hr tablet, 300 mg PO QAM 30 days #30 tabs 12/19/23 extended release (Wellbutrin XL) gabapentin 600 mg tablet 600 mg PO TID 30 days #90 tabs 12/19/23 Mental Status Exam Mental Status Exam Patient Appearance: Appropriate Patient Orientation: Person, Place, Time and Situation Level of Consciousness: Alert Patient Behavior: Appropriate, Talkative, Cooperative and Good Eye Contact Mood Description: Depressed Affect Description: Flat Patient Cognition Impaired: No Ability to Follow Directions: Good Speech Pattern: Spontaneous Speech Memory Description: Intact and Episodic Impaired Hallucinations: None Delusions: Not Present Perceptual Disturbances: Depersonalization and Derealization Thought Process: Rumination Thought Content: positive for Circumstantial Depressive Symptoms: Increased Anxiety and Increased Fatigue Judgement: Good DS: Summary Hospital Course Hospital Course: Admission to adult psychiatry in transfer from medical admit 12/08/23 -12/12/23 s/p Wellbutrin 300 mg #15 tabs OD, with alcohol and cocaine with resulting IVONNE, Rhabdomyolysis. Pt reports sobriety since Feb 2023 with [facility]. He reports starting trauma therapy and working with [facility] on his CAD[facility] at [facility]. Pt identifies precipitants as difficulty with PTSD sx (therapy has been a challenge, yet helpful he reports). Medications were evaluated and adjusted. Pt was able to participate in the milieu to strengthen his coping skills. Detox was completed requiring high dose Lorazepam yet without further medical complications. Pt will return to [place] to stay temporarily with his sponsor and will then return to his residential program where he has obtained a sustained period of sobriety. He will continue with [facility]. Status at Discharge Functional status at discharge: independent ambulation Overall status at discharge: patient is progressing back to baseline Time Spent with Patient Time attestation: Total time managing care of this patient today ____ minutes. Time spent: Less than 30 minutes Discharge Plan Discharge Anticipated Discharge Date/Time: 12/19/23 12:00 Patient Disposition: Xfer Other Discharge Diagnosis: PTSD Recurrent Major Depression Opiate Use Disorder-using Suboxone Polysubstance Use Alcohol Use Disorder [facility]Other] - 12/22/23 11:30 am (Please bring your last dose letter ) [facility]Other] - 1 Week (Please follow up with the [facility] for outpatient mental health providers. They have been faxed your discharge summary) Gonzales Rust MD [Primary Care Provider] - 12/23/23 9:00 am (IN OFFICE) Discharge Medications: New methylphenidate HCl 10 mg Tablet 20 mg PO 0800,1400 Qty: 60 0RF Rx Instructions: Partial Fill upon patient request. sennosides-docusate sodium [Senna Plus] 8.6-50 mg Tablet 2 tab PO DAILY Qty: 60 0RF metronidazole 0.75 % Gel 1 appl topical BID Qty: 45 0RF lorazepam [Ativan] 1 mg tablet 1 mg PO DAILY PRN (Reason: withdrawal symptoms) Qty: 5 0RF naloxone [Rextovy] 4 mg/actuation spray,non-aerosol 4 mg intranasal Q2M PRN (Reason: opioid overdose) Qty: 2 0RF Rx Instructions: spray 1 dose into ONE nostril; alternate nostrils w each dose until help arrives bupropion HCl [Wellbutrin XL] 300 mg tablet extended release 24 hr 300 mg PO QAM 30 Days Qty: 30 0RF Rx Instructions: take with 150mg tab bupropion HCl [Wellbutrin XL] 150 mg tablet extended release 24 hr 150 mg PO QAM 30 Days Qty: 30 0RF Rx Instructions: take with 300mg tab gabapentin 600 mg tablet 600 mg PO TID 30 Days Qty: 90 0RF Continued prazosin 5 mg Capsule 5 mg PO BEDTIME Qty: 30 0RF Protocol: Hold for SBP< HOLD for SBP < : 90 trazodone 100 mg Tablet 100 mg PO BEDTIME PRN (Reason: Insomnia) Qty: 30 0RF zolpidem [Ambien] 10 mg tablet 10 mg PO BEDTIME PRN (Reason: insomnia) Qty: 10 0RF buprenorphine-naloxone [Suboxone] 8-2 mg Film 1 film sublingual TID@0800,1200,1700 Qty: 10 0RF Discontinued sennosides [Senna Lax] 8.6 mg Tablet 8.6 mg PO BID Qty: 60 0RF methylphenidate HCl 10 mg Tablet 10 mg PO BID@0800,1500 Qty: 60 0RF Rx Instructions: Partial Fill upon patient request. hydroxyzine HCl 50 mg Tablet 50 mg PO TID PRN (Reason: Anxiety) Qty: 90 0RF quetiapine 50 mg Tablet 50 mg PO BID PRN (Reason: Panic Attack(S)) Qty: 60 0RF gabapentin 800 mg tablet 800 mg PO TID Qty: 90 0RF methocarbamol 750 mg tablet 750 mg PO Q8H PRN (Reason: pain (scale score 4-6)) Qty: 60 0RF bupropion HCl [Wellbutrin XL] 300 mg tablet extended release 24 hr 300 mg PO DAILY bupropion HCl [Wellbutrin XL] 150 mg tablet extended release 24 hr 150 mg PO DAILY nicotine (polacrilex) 2 mg Gum 2 mg buccal Q1H PRN (Reason: tobacco withdraw) Qty: 20 0RF lorazepam 1 mg Tablet 0.5 mg PO Q6H Qty: 10 0RF thiamine mononitrate (vit B1) 100 mg Tablet 100 mg PO DAILY Qty: 10 0RF Discharge Orders: Discharge Order (Routine); Ordered 12/19/23 Ordered By: Joycelyn Jones Diet: Advance to usual diet Activity on Discharge: As tolerated Stand Alone Forms: Patient Portal Discharge page, Community Support Print Language: Dominican Care Plan Goals: Abstinence from substances Mood and Behavioral Stabilization Health Concerns: Abstinence from substances Mood and Behavioral Stabilization Plan of Treatment: Attend scheduled appointments Take medications as directed Assessment: Zunilda SI/HI/AH/VH Pt plans to stay with his sponsor and his family to wait for a return placement in [place] where he reports positive success with treatment, sobriety and moving forward Discharge Date/Time: 12/19/23 13:20
== END 2023-12-19 13:20 | disposition other institution (70) | DRG 751 ==
PROVIDERS: Admitting Provider Clinical Nurse Specialist Psychiatric/Mental Health, Adult; PCP Family Medicine; Visit Provider Clinical Nurse Specialist Psychiatric/Mental Health, Adult
DX: F33.2 Major depressive disorder, recurrent severe without psychotic features (principal); F11.20 Opioid dependence, uncomplicated; F17.210 Nicotine dependence, cigarettes, uncomplicated; F43.12 Post-traumatic stress disorder, chronic; F14.20 Cocaine dependence, uncomplicated; Z91.51 Personal history of suicidal behavior; Z71.6 Tobacco abuse counseling; Z79.899 Other long term (current) drug therapy
CPT/HCPCS: 36415; 80061; 82607; 82746; 83036; 83735; 84439; 84443; 92950

== ENCOUNTER → 2023-12-12 13:02 | Outpatient (BNV) | payer OTHER, SELFPAY | PROVIDERS: Admitting Provider Clinical Nurse Specialist Psychiatric/Mental Health, Adult; PCP Family Medicine; Visit Provider Psychiatry & Neurology Psychiatry | DX: F33.2 Major depressive disorder, recurrent severe without psychotic features (principal); T14.91XA Suicide attempt, initial encounter; F43.12 Post-traumatic stress disorder, chronic; F10.90 Alcohol use, unspecified, uncomplicated; F14.20 Cocaine dependence, uncomplicated | CPT/HCPCS: 99232; 99238 ==

== ENCOUNTER → 2023-12-12 13:02 | Outpatient (BNV) | payer OTHER, SELFPAY | PROVIDERS: Admitting Provider Clinical Nurse Specialist Psychiatric/Mental Health, Adult; PCP Family Medicine; Visit Provider Clinical Nurse Specialist Psychiatric/Mental Health, Adult | DX: F33.2 Major depressive disorder, recurrent severe without psychotic features (principal); T14.91XA Suicide attempt, initial encounter; F43.12 Post-traumatic stress disorder, chronic; F10.90 Alcohol use, unspecified, uncomplicated; F14.20 Cocaine dependence, uncomplicated | CPT/HCPCS: 90792; 99231; 99232 ==

== ENCOUNTER 2024-01-30 06:01 | Inpatient (IN) | payer MEDICAID, SELFPAY ==
[2024-01-30] VITALS (9 sets, daily range): BP systolic 95–182; BP diastolic 53–110; PULSE 72–90; RESP 12–22; TEMP 36.3–37.2; O2SAT 93–97; BMI 28.4
--- NOTE | 2024-01-30 | ECG_ITS ---
Test Reason : INGESTION MEDS Blood Pressure : / mmHG Vent. Rate : 075 BPM Atrial Rate : 075 BPM P-R Int : 132 ms QRS Dur : 096 ms QT Int : 434 ms P-R-T Axes : 062 023 040 degrees QTc Int : 484 ms Normal sinus rhythm Prolonged QT Abnormal ECG When compared with ECG of 10-DEC-2023 19:41, QT has lengthened Referred By: Generic ED Physician Electronically Signed By:CORWIN KELLOGG
--- NOTE | 2024-01-30 | ECG_ITS ---
Test Reason : SUBOXONE Blood Pressure : / mmHG Vent. Rate : 072 BPM Atrial Rate : 072 BPM P-R Int : 106 ms QRS Dur : 100 ms QT Int : 428 ms P-R-T Axes : 000 022 038 degrees QTc Int : 468 ms Sinus rhythm with short MN Nonspecific T wave abnormality Prolonged QT Abnormal ECG When compared with ECG of 30-JAN-2024 07:21, QT has lengthened Referred By: Price Claire Electronically Signed By:CORWIN KELLOGG
--- NOTE | 2024-01-30 06:35 | PC.NURSE ---
called poison control, and informed them about pt. They knew the patient, they spoke with the MD, about what to do with the patient
[2024-01-30 06:45] LABS: MANUAL DIFF FLAG NO
[2024-01-30 06:51] LABS: Basophils Absolute Auto 0.1 X10*3/uL (0.0-0.2); Basophils Percent Auto 0.5 % (0-2); Eosinophils Percent Auto 0.2 % (0-4); Hematocrit 39.4 % (42.0-52.0); Hemoglobin 13.6 g/dl (14.0-18.0); Imm Gran Abs Auto 0.05 X10*3/uL (0.00-0.03); Imm Gran Pct Auto 0.4 % (0.0-0.4); Lymphocytes Absolute Auto 0.9 X10*3/uL (1.2-4.9); Lymphocytes Percent Auto 8.1 % (20-40); Mean Corpuscular HGB Conc 34.5 g/dl (31.0-36.0); Mean Corpuscular Hemoglobin 30.3 pg (27.0-33.0); Mean Corpuscular Volume 87.8 fL (80.0-98.0); Mean Platelet Volume 10.2 fL (9.4-12.4); Monocytes Absolute Auto 1.1 X10*3/uL (0.1-1.2); Monocytes Percent Auto 9.2 % (2-11); Neutrophils Absolute Auto 9.4 x10*3/uL (2.0-8.3); Neutrophils Percent Auto 81.6 % (45-73); Platelet Count 239 X10*3/uL (160-400); Red Blood Count 4.49 X10*6/uL (4.60-5.80); Red Cell Distribution Width 13.3 % (11.0-16.0); White Blood Count 11.6 X10*3/uL (4.8-10.8)
--- NOTE | 2024-01-30 06:58 | ED_ITS ---
HPI - Psych General Chief Complaint: Psychiatric Symptoms Stated Complaint: SI/OD Time Seen by Provider: 01/30/24 06:42 Source: patient Mode of arrival: ambulatory Limitations: no limitations History of Present Illness ED Provider: Dr. Thanh Zacarias HPI Narrative: 53-year-old male with a history of depression, anxiety, PTSD, ADHD, DTs, alcohol withdrawal seizures, chronic right hip pain, cocaine use disorder who presents emergency department for evaluation of a Wellbutrin overdose. He took Wellbutrin XL 150 mg pills-15 pills. Patient states that he overdosed on Wellbutrin at 05:00 hours on the day of arrival. He has had similar overdose Wellbutrin in the past in his required admission for 24 hour observation during which time he has had alcohol withdrawal. Patient states that he has been using crack cocaine daily for 2 weeks. He states that he last used in oz of crack cocaine at 03:00 hours. He also states that he has been drinking whiskey daily for 1-1/2 months. He states he last drank a pint of whiskey 24 hours prior. Patient states that he burned the fingers of both hands this morning while he was smoking crack cocaine. Tetanus is up-to-date. Related Data Previous Rx's ?Medication ?Instructions ?Recorded buprenorphine 8 mg-naloxone 2 mg 1 film sublingual 12/18/23 sublingual film (Suboxone) TID@0800,1200,1700 #10 ea lorazepam 1 mg tablet (Ativan) 1 mg PO DAILY PRN withdrawal 12/18/23 symptoms #5 tabs methylphenidate HCl 10 mg tablet 20 mg (2 x 10 mg) PO 0800,1400 #60 12/18/23 tabs metronidazole 0.75 % topical gel 1 appl topical BID #45 grams 12/18/23 naloxone 4 mg/actuation nasal 4 mg intranasal Q2M PRN opioid 12/18/23 spray (Rextovy) overdose #2 ea prazosin 5 mg capsule 5 mg PO BEDTIME #30 caps 12/18/23 sennosides 8.6 mg-docusate sodium 2 tab PO DAILY #60 tabs 12/18/23 50 mg tablet (Senna Plus) trazodone 100 mg tablet 100 mg PO BEDTIME PRN Insomnia #30 12/18/23 tabs zolpidem 10 mg tablet (Ambien) 10 mg PO BEDTIME PRN insomnia #10 12/18/23 tabs bupropion HCl 150 mg 24 hr tablet, 150 mg PO QAM 30 days #30 tabs 12/19/23 extended release (Wellbutrin XL) bupropion HCl 300 mg 24 hr tablet, 300 mg PO QAM 30 days #30 tabs 12/19/23 extended release (Wellbutrin XL) gabapentin 600 mg tablet 600 mg PO TID 30 days #90 tabs 12/19/23 Allergies Allergy/AdvReac Type Severity Reaction Status Date / Time ketamine AdvReac Severe Agitated Verified 01/30/24 06:16 phenobarbital AdvReac Vomiting Verified 01/30/24 06:16 Review of Systems 2 Review of Systems: Yes all other systems are reviewed and are negative [facility] Past Medical History [facility] Narrative: Social history: Denies tobacco use. He does vape nicotine products. He does drink alcohol daily. He uses crack cocaine daily. Medical History Medical clearance for psychiatric admission Incidental pulmonary nodule Hepatic steatosis Alcohol use disorder Hepatitis C antibody positive in blood Alcohol dependence EtOH dependence Anxiety Chronic post-traumatic stress disorder (PTSD) MDD (major depressive disorder), recurrent episode, severe Depression Surgical History History of mandibular surgery Family History Family History Mother Diabetes mellitus Father Leukemia Social History Social History Household Members: None Household Members Other:: [employer] program Housing: Other Housing Other:: in a program, no other housing Do you presently have visiting nurse or other home services: No Unable to assess alcohol history related to: Unknown Alcohol intake: current Alcohol intake frequency: 3 or more drinks per day Alcohol type: hard liquor Comment: 1:1 sitter for safety. Patient Tobacco Use Status: Current everyday Tobacco user Tobacco use type: Cigarette Cigarette Packs Per Day: 1 Cigarettes Per Day: 20.0 Years Smoked: ''many'' Smoked in Last 30 Days: Yes e-Cigarette/Vaping Use: Currently Using Second Hand Smoke Exposure: No Use of substances other than those prescribed or required for medical reasons: Yes Substance Use Type: Crack/Cocaine Substance Use Frequency: Daily Advance Directives: No Advance Directives Information Provided: No Do you have a plan to hurt others: No Plan service: No Current occupational status: unemployed Sexual orientation: Don't Know Physical Exam 2 Vital Signs: Vital Signs: Last Vital Signs Temp 97.8 F 01/30/24 08:16 Pulse 77 01/30/24 08:16 Resp 12 01/30/24 08:16 BP 128/76 01/30/24 08:16 Pulse Ox 94 01/30/24 08:16 O2 Del Method Room Air 01/30/24 08:16 BMI result Body Mass Index 28.4 Vital signs were normal Exam: General: Awake, alert in no distress Head: Normocephalic, atraumatic EENT: PERRL, Lids normal, sclera normal, conjunctiva normal, nose normal , ears normal, throat without erythema or exudates Neck: Supple, no adenopathy Lung: breath sounds symmetric, no wheezing, rales or rhonchi Chest: symmetric movement, nontender Heart: regular rate and rhythm, normal S1, S2 no murmurs or rubs Abdomen: soft, non-tender, nondistended, normal bowel sounds Back: no vertebral tenderness, no CVAT Extremities: Patient has 1st and second-degree padilla to his fingers -see photos below Neuro: Awake, alert, oriented, normal speech, cranial nerves intact, moves all extremities symmetrically Psych: Pleasant, cooperative Medications Administered Discontinued Medications Generic Name Dose Route Start Last Admin Trade Name Freq PRN Reason Stop Dose Admin Bacitracin 1 appl 01/30/24 07:58 01/30/24 08:29 Bacitracin Oint 0.9 Gm Packet TOPICAL 01/30/24 07:59 1 appl ONCE ONE Administration Protocol Charcoal 50 gm 01/30/24 06:41 01/30/24 07:05 Activated Charcoal 50 Gm/240 Ml Oral.Susp PO 01/30/24 06:42 50 gm ONCE ONE Administration Sodium Chloride 1,000 mls @ 999 mls/hr 01/30/24 07:58 01/30/24 08:29 Ns IV 01/30/24 08:58 999 mls/hr .Q1H1M STA Administration Lorazepam 2 mg 01/30/24 06:59 01/30/24 07:44 Lorazepam 2 Mg/Ml Vial IVPUSH 01/30/24 07:00 2 mg STAT STA Administration Medical Decision Making Medical Decision Making [facility] Narrative: 53-year-old male with a history of depression, anxiety, PTSD, ADHD, DTs, alcohol withdrawal seizures, chronic right hip pain, cocaine use disorder who presents emergency department for evaluation of a Wellbutrin overdose at 05:00 hours this morning. He took Wellbutrin XL 150 mg pills-15 pills. Patient has been using crack cocaine daily for 2 weeks and has been drinking alcohol daily for 1.5 months, with last drank 24 hours prior. Patient states that he burned his the fingers of both hands this morning when he was using his crack cocaine pipe. Tetanus up-to-date. Vital signs were unremarkable. Physical examination was unremarkable except for 1st and second-degree padilla to his fingers which appeared to be acute and some nonacute padilla to the right tip of the index finger and right tip of the thumb. His exam was otherwise unremarkable. Differential diagnosis: ?Includes but is not limited to Wellbutrin overdose, salicylate/acetaminophen overdose, crack cocaine use, opiate use, alcohol use, 1st and second-degree padilla to fingers of left and right hand, electrolyte abnormalities, anemia Following evaluation was ordered: CBC, CMP, drug screen urine, salicylate level, acetaminophen levels, anemia, electrolyte abnormalities, 12 EKG Patient was initially treated with the following: Normal saline x1 L IV, lorazepam 2 mg IV, activated charcoal 50 g orally, bacitracin ointment apply to padilla of the fingers of both hands Course: 09:19 Patient's laboratory evaluation did reveal an elevated AST and ALT consistent with his alcohol use disorder. Patient's BUN is elevated 28 most likely secondary to dehydration/volume depletion this was treated with normal saline x1 L. the patient's' padilla were treated with bacitracin. Ethanol level was below detectable limits. Urine drug screen was pending Given the potential adverse effects of Wellbutrin overdose which include seizure, delayed seizure, tachycardia, agitation, arrhythmias, the patient will need to be admitted for close monitoring over the next 24-36 hours. I did discuss admission with the covering hospitalist over tiger text Admission/Observation Consideration of admission/observation: Escalation of care including admission/observation considered (Yes) Consult Healthcare Provider Management of the patient was discussed with: Hospitalist Lab Data [facility] Lab Attestation statement: I reviewed the patient's lab results. My interpretation patient's laboratory evaluation as follows: CBC was normal. CMP revealed an elevated BUN of 28 with a normal creatinine of 1.0, low CO2 of 21. Elevated AST and ALT 217 and 109-most likely secondary to alcoholic hepatitis, bilirubin elevated 1.3. Ethanol was below detectable limits. Urine tox screen pending collection 01/30/24 06:36 01/30/24 06:37 Labs: Lab Results 01/30/24 01/30/24 Range/Units 06:36 06:37 WBC 11.6 H (4.8-10.8) X10*3/uL RBC 4.49 L (4.60-5.80) X10*6/uL Hgb 13.6 L (14.0-18.0) g/dl Hct 39.4 L (42.0-52.0) % MCV 87.8 (80.0-98.0) fL MCH 30.3 (27.0-33.0) pg MCHC 34.5 (31.0-36.0) g/dl RDW 13.3 (11.0-16.0) % Plt Count 239 D (160-400) X10*3/uL MPV 10.2 (9.4-12.4) fL Immature Gran % (Auto) 0.4 (0.0-0.4) % Neut % (Auto) 81.6 H (45-73) % Lymph % (Auto) 8.1 L (20-40) % [place] % (Auto) 9.2 (2-11) % Eos % (Auto) 0.2 (0-4) % Baso % (Auto) 0.5 (0-2) % Lymph # (Auto) 0.9 L (1.2-4.9) X10*3/uL [place] # (Auto) 1.1 (0.1-1.2) X10*3/uL Eos # (Auto) 0.0 (0.0-0.4) X10*3/uL Baso # (Auto) 0.1 (0.0-0.2) X10*3/uL Abs Immat Gran (auto) 0.05 H (0.00-0.03) X10*3/uL Absolute Neuts (auto) 9.4 H (2.0-8.3) x10*3/uL Absolute Nucleated RBC 0.000 (0.0-0.012) X10*3/uL Nucleated RBC % (auto) 0.0 (0.0-0.2) /100WBC Sodium 139 (135-145) mmol/L Potassium 3.7 (3.3-5.1) mmol/L Chloride 103 (96-108) mmol/L Carbon Dioxide 21 L (22-29) mmol/L Anion Gap 19 (12-20) BUN 28 H (9-16) mg/dL Creatinine 1.03 (0.5-1.4) mg/dL Estim Creat Clear Calc 102.0 Estimated GFR > 60 Random Glucose 112 (60-115) mg/dL Calcium 9.4 (8.4-10.2) mg/dL Total Bilirubin 1.3 H (0.0-1.0) mg/dL AST 217 H (5-37) U/L ALT 109 H (0-40) U/L Alkaline Phosphatase 74 (39-117) U/L Total Protein 7.6 (6.5-8.0) g/dL Albumin 4.9 (3.5-5.0) g/dL Salicylates < 5.0 L (15-30) mg/dL Acetaminophen < 3 (<30) mcg/mL Ethyl Alcohol < 10 mg/dL Independent Interpretation I performed an independent interpretation of an: EKG Interpretation: My interpretation patient's 12 EKG done at 07:21 hours is as follows: Normal sinus rhythm with a rate of 81, normal ID interval of 134 milliseconds, prolonged QRS of 100 milliseconds, normal QTC of 448 milliseconds. External Record Review External record reviewed: Inpatient record Chronic Conditions Patient?s care impacted by: Other (Alcohol use disorder, delirium tremens, alcohol withdrawal seizure) Procedures EJ/Peripheral Line Neck R: Time Out Performed: Yes Skin Cleansed in Sterile Fashion: Yes Size (gauge): 20 IV Secured and Dressing Applied: Yes Patient Tolerated Procedure: well Critical Care Time Critical Care Time Critical Care Time: Yes Total Critical Care Time: 45 Attestation: Critical Care: The patient was critically ill with a high probability of imminent or life threatening deterioration. I spent greater than 30 minutes of discontinuous time evaluating the patient,delivering critical care at the bedside, discussing and evaluating pertinent data with consultants. Critical care time does not include time spent performing separately billable procedures or teaching. Total time spent performing critical care was 45 minutes. Discharge Plan Discharge Patient Disposition: Admitted As Inpatient Prescriptions: No Action methylphenidate HCl 10 mg Tablet 20 mg PO 0800,1400 Qty: 60 0RF Rx Instructions: Partial Fill upon patient request. sennosides-docusate sodium [Senna Plus] 8.6-50 mg Tablet 2 tab PO DAILY Qty: 60 0RF metronidazole 0.75 % Gel 1 appl topical BID Qty: 45 0RF lorazepam [Ativan] 1 mg tablet 1 mg PO DAILY PRN (Reason: withdrawal symptoms) Qty: 5 0RF naloxone [Rextovy] 4 mg/actuation spray,non-aerosol 4 mg intranasal Q2M PRN (Reason: opioid overdose) Qty: 2 0RF Rx Instructions: spray 1 dose into ONE nostril; alternate nostrils w each dose until help arrives prazosin 5 mg Capsule 5 mg PO BEDTIME Qty: 30 0RF Protocol: Hold for SBP< HOLD for SBP < : 90 trazodone 100 mg Tablet 100 mg PO BEDTIME PRN (Reason: Insomnia) Qty: 30 0RF zolpidem [Ambien] 10 mg tablet 10 mg PO BEDTIME PRN (Reason: insomnia) Qty: 10 0RF buprenorphine-naloxone [Suboxone] 8-2 mg Film 1 film sublingual TID@0800,1200,1700 Qty: 10 0RF bupropion HCl [Wellbutrin XL] 300 mg tablet extended release 24 hr 300 mg PO QAM 30 Days Qty: 30 0RF Rx Instructions: take with 150mg tab bupropion HCl [Wellbutrin XL] 150 mg tablet extended release 24 hr 150 mg PO QAM 30 Days Qty: 30 0RF Rx Instructions: take with 300mg tab gabapentin 600 mg tablet 600 mg PO TID 30 Days Qty: 90 0RF Interventions: [place]-Suicide Risk Severity Scale Last Done: 01/30/24 07:48 Print Language: Kuwaiti
--- NOTE | 2024-01-30 06:59 | ECG_ITS ---
Test Reason : Overdose/ check QTC Blood Pressure : / mmHG Vent. Rate : 081 BPM Atrial Rate : 081 BPM P-R Int : 134 ms QRS Dur : 100 ms QT Int : 386 ms P-R-T Axes : 063 026 038 degrees QTc Int : 448 ms Normal sinus rhythm Nonspecific T wave abnormality Abnormal ECG When compared with ECG of 30-JAN-2024 06:18, Nonspecific T wave abnormality now evident in Lateral leads QT has shortened Referred By: Thanh Zacarias Electronically Signed By:CORWIN KELLOGG
--- NOTE | 2024-01-30 07:01 | PC.NURSE ---
report given to Ирина HA
[2024-01-30] MEDS: Activated charcoaL 50 GM/240 ML ORAL.SUSP PO (07:05)
[2024-01-30 07:26] LABS: Alanine Aminotransferase 109 U/L (0-40); Albumin Level 4.9 g/dL (3.5-5.0); Alkaline Phosphatase 74 U/L (39-117); Anion Gap 19 (12-20); Aspartate Amino Transferase 217 U/L (5-37); Bilirubin Total 1.3 mg/dL (0.0-1.0); Blood Urea Nitrogen 28 mg/dL (9-16); Calcium 9.4 mg/dL (8.4-10.2); Carbon Dioxide 21 mmol/L (22-29); Chloride 103 mmol/L (96-108); Estimated Glomerular Filt Rate > 60; Ethanol < 10 mg/dL; Glucose Random 112 mg/dL (60-115); Potassium 3.7 mmol/L (3.3-5.1); Sodium 139 mmol/L (135-145); Total Protein 7.6 g/dL (6.5-8.0)
[2024-01-30 07:28] LABS: Acetaminophen LAB < 3 mcg/mL (<30); Salicylate < 5.0 mg/dL (15-30)
[2024-01-30] MEDS: LORazepam 2 MG/ML VIAL IVPUSH ×3 (07:44→22:15)
--- NOTE | 2024-01-30 07:51 | PC.NURSE ---
Pt presented to ED via EMS for SI, reports he took approx 10-15 pills of welbutrin (150mg each) as an SI attempt after smoking crack. Went to the police station to ask for help, EMS was called. Pt admits to drinking approx 1 quart of hard alcohol daily, has hx of withdrawals, last drink around 6A yesterday. Also reports heavy crack use, has padilla to bilat inner hands from crack pipe, noted to have blisters and redness. Pt denies HI. 1:1 sitter at bedside. Per previous RN poison control was contacted and orders are in place. Pt is alert and oriented at this time, tearful. Breathing even and unlabored. Medicated per JUL
--- NOTE | 2024-01-30 07:54 | PC.NURSE ---
Pt hard stick, reports he normally gets US guided line. MD at bedside places 20G in right EJ, successful. CIWA 14, medicated per MAR with ativan.
--- NOTE | 2024-01-30 08:25 | PC.NURSE ---
Spoke with poison control, they recommended trending the liver enzymes.
[2024-01-30] MEDS: Bacitracin Oint 0.9 GM PACKET 1 APPL TOPICAL (08:29)
[2024-01-30] MEDS: 0.9 % Sodium Chloride 1,000 ML 999 ML IV (08:29)
[2024-01-30] MEDS: Ketorolac Tromethamine 15 MG/ML VIAL IVPUSH (10:19)
--- NOTE | 2024-01-30 10:23 | MHC.EDTECH ---
This tech called security confirming belongings are in decon
--- NOTE | 2024-01-30 11:15 | PM.IMHP ---
History of Present Illness Date of Service: 01/30/24 Attending physician on admission: Ramón Ruelas Chief Complaint: Intentional overdose Pt is a 53-year-old male with a PMH significant for?alcohol use disorder w/ hx of withdrawal, opioid use disorder, cocaine use disorder, anxiety, PTSD, and MDD with multiple previous suicide attempts who presents to the ED for evaluation of intentional overdose of 15 pills of Wellbutrin?XL 115mg at 05:00 this morning. Patient states he has relapsed on alcohol within the past 1-1/2 months, drinking around a quart with last drink yesterday at 06:00. Has also been smoking crack cocaine daily x2 weeks. Sustained padilla on his fingers from crack pipe. In the ED pt was given activated charcoal and started on Ativan protocol for alcohol withdrawal. Pt has had multiple similar intentional overdoses in the past. Was last discharged from inpatient psychiatry on 12/17. Since then patient states has had little social support and has not been seeing anyone outpatient for Psychiatry. Has been increasingly depressed. Denies auditory or visual hallucinations. Has been experiencing increased anxiety, headache, and photophobia. Nausea and lower abdominal pain, but no vomiting. Upper extremity tremors. Reports history of delirium tremens and alcohol withdrawal seizures. Currently no chest pain or pressure. No difficulty breathing or SOB. In the ED pt's vitals WNL. Labs were significant for WBCs 11.6, bilirubin 1.3, AST 217, and ALT 109. No significant electrolyte abnormalities. Renal function baseline. Salicylates, acetaminophen, and ethyl alcohol undetectable. EKG demonstrated normal sinus rhythm with QTC of [address] elevations or depressions. Repeat EKG showed normal sinus rhythm and with nonspecific T-wavec abnormality with improved QT of 448. Pt was treated with activated charcoal, IVF, ketorolac, and started on Ativan protocol for alcohol withdrawal. Pt will be admitted to the hospital for treatment and further evaluation of intentional overdose on home medications and acute alcohol withdrawal. Review of Systems Review of Systems: Intentional overdose Increasing depression with SI Increased anxiety Headache, photophobia Nausea, no vomiting Lower abdominal pain Padilla on fingers and hands bilaterally Denies auditory or visual hallucinations No chest pain/pressure, palpitations Denies shortness of breath or difficulty breathing [facility] Medical History Suicide attempt Medical clearance for psychiatric admission Incidental pulmonary nodule Hepatic steatosis Alcohol use disorder Hepatitis C antibody positive in blood Alcohol dependence EtOH dependence Anxiety Chronic post-traumatic stress disorder (PTSD) MDD (major depressive disorder), recurrent episode, severe Depression Family History Mother Diabetes mellitus Father Leukemia Surgical History History of mandibular surgery Social History Household Members: None Household Members Other:: [employer] program Housing: Other Housing Other:: in a program, no other housing Do you presently have visiting nurse or other home services: No Unable to assess alcohol history related to: Unknown Alcohol intake: current Alcohol intake frequency: 3 or more drinks per day Alcohol type: hard liquor Comment: 1:1 sitter for safety. Patient Tobacco Use Status: Current everyday Tobacco user Tobacco use type: Cigarette Cigarette Packs Per Day: 1 Cigarettes Per Day: 20.0 Years Smoked: ''many'' Smoked in Last 30 Days: Yes e-Cigarette/Vaping Use: Currently Using Second Hand Smoke Exposure: No Use of substances other than those prescribed or required for medical reasons: Yes Substance Use Type: Crack/Cocaine Substance Use Frequency: Daily Advance Directives: No Advance Directives Information Provided: No Do you have a plan to hurt others: No Plan Nutrition Risks: No Nutritional Risk service: No Current occupational status: unemployed Sexual orientation: Don't Know Meds Allergies Allergy/AdvReac Type Severity Reaction Status Date / Time ketamine AdvReac Severe Agitated Verified 01/30/24 06:16 phenobarbital AdvReac Vomiting Verified 01/30/24 06:16 Home Medications ?Medication ?Instructions ?Recorded ?Confirmed ?Last Taken ?Type gabapentin 800 mg tablet 800 mg PO TID 01/30/24 01/30/24 Unknown History metformin 500 mg tablet 500 mg PO BID 01/30/24 01/30/24 Unknown History quetiapine 100 mg tablet 150 mg PO BEDTIME 01/30/24 01/30/24 Unknown History Physical Exam Vital Signs and Narrative: Vital Signs: Last Vital Signs Temp 97.8 F 01/30/24 10:00 Pulse 77 01/30/24 10:00 Resp 12 01/30/24 10:00 BP 133/67 01/30/24 10:00 Pulse Ox 95 01/30/24 10:00 O2 Del Method Room Air 01/30/24 10:00 BMI result Body Mass Index 28.4 Constitutional: Alert, in no acute distress. Mental Status: Oriented to person, place and time. Eyes: Pupils are equal, round, and reactive to light. Ear, Nose, and Throat: Oropharynx clear, mucous membranes moist. Ears and nose without deformities. Trachea midline. Respiratory: Clear to auscultation bilaterally. No wheezing, rales, or rhonchi. Cardiovascular: S1, S2 regular. No murmurs, rubs, or gallops. Gastrointestinal: Abdomen soft, non-tender, non-distended. Normal bowel sounds. Neurologic: Cranial nerves II-XII are grossly intact bilaterally. No focal neurological deficits. Moves all extremities spontaneously. Moderate upper extremity tremors. No tongue fasciculations Skin: Warm, dry. Extremities: No edema. First and 2nd degree padilla on hands and fingers bilaterally. As pictured below Psychiatric: Flat affect. Results Labs 01/30/24 06:36 01/30/24 06:37 Labs: Laboratory Results - last 24 hr 01/30/24 01/30/24 06:36 06:37 MCV 87.8 MCH 30.3 MCHC 34.5 RDW 13.3 Plt Count 239 D MPV 10.2 Immature Gran % (Auto) 0.4 Neut % (Auto) 81.6 H Lymph % (Auto) 8.1 L Greer % (Auto) 9.2 Eos % (Auto) 0.2 Baso % (Auto) 0.5 Lymph # (Auto) 0.9 L Greer # (Auto) 1.1 Eos # (Auto) 0.0 Baso # (Auto) 0.1 Abs Immat Gran (auto) 0.05 H Absolute Neuts (auto) 9.4 H Absolute Nucleated RBC 0.000 Nucleated RBC % (auto) 0.0 Anion Gap 19 Estim Creat Clear Calc 102.0 Estimated GFR > 60 Random Glucose 112 Calcium 9.4 Total Bilirubin 1.3 H AST 217 H ALT 109 H Alkaline Phosphatase 74 Total Protein 7.6 Albumin 4.9 Salicylates < 5.0 L Acetaminophen < 3 Ethyl Alcohol < 10 Assessment and Plan (1) Intentional overdose: Qualifiers: Encounter type: initial encounter Qualified Code(s): T50.902A - Poisoning by unspecified drugs, medicaments and biological substances, intentional self-harm, initial encounter Status: Acute (2) Alcohol withdrawal: Qualifiers: Complication of substance-induced condition: uncomplicated Qualified Code(s): F10.230 - Alcohol dependence with withdrawal, uncomplicated Status: Resolved Plan Pt is a 53-year-old male with a PMH significant for?alcohol use disorder w/ hx of withdrawal, opioid use disorder, cocaine use disorder, anxiety, PTSD, and MDD with multiple previous suicide attempts who presents to the ED for evaluation of intentional overdose of 15 pills of Wellbutrin?XL 115mg at 05:00 this morning. Pt will be admitted to the hospital for treatment and further evaluation of intentional overdose on home medications and acute alcohol withdrawal. Intentional overdose Reports taking 15 pills of Wellbutrin XL 150mg Given activated charcoal in the ED Serial EKGs without prolonged QTc or ischemia Monitor on telemetry for tachy arrhythmias, seizures One-to-one sitter Care team consult once medically cleared Acute alcohol withdrawal Long hx of alcohol use with w/withdrawal, including DT Relapsed the past 1.5 months, last drink yesterday morning Pt w/ nausea, ALBRIGHT, anxiety, tremors, photophobia Started on Ativan protocol in ED, will continue Folic acid, thiamine, multivitamin, famotadine Seizure precautions Addiction medicine consult Monitor on telemetry First and second degree padilla on fingers bilaterally Secondary to crack pipe use Bacitracin on wounds b.i.d. Polysubstance use disorder Reports daily crack cocaine use x2 weeks Continue Suboxone Addiction medicine consult Non-insulin dependent diabetes type 2 Hold metformin Cover with sliding scale insulin Diabetic diet Full Code Attending:?Dr. Ruelas DVT Prophylaxis: Lovenox Pt will require a hospitalization of at least two nights for treatment of?suicide attempt with intentional overdose and acute alcohol withdrawal. Pt will require inpatient level of care for close monitoring of withdrawal and cardiac function for arrhythmias and seizures. Quality Stroke Does the patient have a stroke diagnosis?: No VTE Prior VTE?: No VTE Risk Level:: Medical - moderate - high VTE Device Contraindication: Treatment Not Indicated VTE Drug Contraindication: N/A - Med Ordered
--- NOTE | 2024-01-30 12:26 | MHC.EDTECH ---
pt output 400mL of urine into urinal
[2024-01-30 12:33] LABS: Appearance Urine Clear; Color Urine Yellow; Glucose Urine UA 100 mg/dL (Negative); Leukocyte Esterase Urine Negative (Negative); Nitrite Urine Negative (Negative); Specific Gravity - Urine >= 1.030 (1.005-1.025); UMIC TRIGGER UA YES; Urine Blood Negative (Negative); Urine Ketones 40 mg/dL (Negative); Urine Protein 30 (1+) mg/dL (Neg-Trace)
[2024-01-30 12:36] LABS: Bacteria Urine None Seen (None Seen); RBC Urine 0-2 /HPF (0-2); Squamous Epithelial Cell Urine 0-2 /HPF (0-2); WBC Urine 0-5 /HPF (0-5)
[2024-01-30 12:49] LABS: Amphetamine Screen Urine Not Detected (Not Detect); Barbiturates, Urine Not Detected (Not Detect); Benzodiazepines Screen Urine Not Detected (Not Detect); Buprenorphine Scr Positive (Not Detect); Cannabinoid Screen Urine Not Detected (Not Detect); Cocaine Screen Urine POSITIVE (Not Detect); Fentanyl, urine Not Detected (Not Detect); Methadone Screen, Urine Not Detected (Not Detect); Opiate Screen Urine Not Detected (Not Detect); Oxycodone Screen Urine Not Detected (Not Detect); Phencyclidine Screen Urine Not Detected (Not Detect)
[2024-01-30] MEDS: Thiamine HCL 100 MG TABLET PO (14:08)
[2024-01-30] MEDS: Famotidine 20 MG TABLET PO ×2 (14:08→22:16)
[2024-01-30] MEDS: Folic Acid 1 MG TABLET PO (14:08)
[2024-01-30] MEDS: Enoxaparin Sodium 40 MG/0.4 ML SYRINGE SUBCUT (14:09)
--- NOTE | 2024-01-30 15:09 | PHA.MEDREC ---
Addendum entered by Leodan Marinelli RPh 01/30/24 17:44: MED REC CHECKED BY [facility]. Original Note: Pharmacy Consult ? Medication Reconciliation Pharmacy has completed the medication reconciliation. Spoke to patient and confirmed his Med Rec. Patient stated he is not very compliant with taking his medications and has not taken his medication in about a week due to him being on the streets. He was able to confirm Suboxone 8-2mg 1 film TID, Wellbutrin he takes one 300mg and one 150mg tab together for a total of 450mg every day, he states he is still on Methpylphenidate 10mg 2 tablets @0800 & 1400, he states he still has Lorazepam 1mg if absolutely needed and he confirmed he still has some Zolpidem 10mg at home. Patient also confirmed he is taking Seroquel 100mg TID.
[2024-01-30] MEDS: LORazepam 1 MG TABLET PO ×3 (17:09→23:39)
[2024-01-30] MEDS: 0.9 % Sodium Chloride Flush 3 ML SYRINGE IVFLUSH ×2 (17:10→23:44)
[2024-01-30] MEDS: Buprenorphine/Naloxone 8/2 mg FILM 1 FILM SUBLINGUAL (18:52)
[2024-01-30] MEDS: traZODone HCL 100 MG TABLET PO (22:16)
[2024-01-30] MEDS: Gabapentin 400 MG CAPSULE 800 MG PO (22:16)
[2024-01-30] MEDS: Zolpidem Tartrate 5 MG TABLET PO (22:17)
[2024-01-30] MEDS: QUEtiapine Fumarate 50 MG TABLET 150 MG PO (22:17)
[2024-01-30] MEDS: Prazosin HCL 5 MG CAPSULE PO (22:24)
[2024-01-30] MEDS: Bacitracin Oint 14 GM TUBE 1 APPL TOPICAL (22:32)
--- NOTE | 2024-01-31 | ECG_ITS ---
Test Reason : follow QTC Blood Pressure : / mmHG Vent. Rate : 083 BPM Atrial Rate : 083 BPM P-R Int : 110 ms QRS Dur : 088 ms QT Int : 404 ms P-R-T Axes : 000 009 011 degrees QTc Int : 474 ms Sinus rhythm with short TN Nonspecific T wave abnormality Prolonged QT Abnormal ECG When compared with ECG of 30-JAN-2024 18:19, No significant change was found Referred By: Gabriella Gibson Electronically Signed By:CORWIN KELLOGG
[2024-01-31 02:54] VITALS: BP 109/52; PULSE 92; RESP 20; TEMP 36.2; O2SAT 95
[2024-01-31] MEDS: LORazepam 1 MG TABLET PO ×9 (03:45→21:07)
--- NOTE | 2024-01-31 06:34 | PC.NURSE ---
Admission note: Patient admitted from the ED around 2104. Patient is AAOX4. CIWA score =18 upon arrival > Dr Yosvany Teran was made aware. Patient received 2 mg iv lorazepam once with good effects. The last 2 CIWA Scores were 6 at midnight and at 0400. Patient received also 1 mg po lorazepam x 2. VSS. Medications taken whole with water. No nausea/vomiting reported. No seizures reported. Patient is oriented to unit routine, bed control, call light, tv, tel, safety precautions etc. Patient verbalized understanding.1:1 sitter at bed side for SI precautions. No injury reported.
[2024-01-31 06:58] LABS: Hematocrit 36.5 % (42.0-52.0); Hemoglobin 12.8 g/dl (14.0-18.0); Mean Corpuscular HGB Conc 35.1 g/dl (31.0-36.0); Mean Corpuscular Hemoglobin 31.1 pg (27.0-33.0); Mean Corpuscular Volume 88.6 fL (80.0-98.0); Mean Platelet Volume 10.7 fL (9.4-12.4); Platelet Count 170 X10*3/uL (160-400); Red Blood Count 4.12 X10*6/uL (4.60-5.80); Red Cell Distribution Width 13.5 % (11.0-16.0); White Blood Count 4.6 X10*3/uL (4.8-10.8)
[2024-01-31 06:59] VITALS: BP 119/57; PULSE 88; RESP 18; TEMP 36.6; O2SAT 95
[2024-01-31 07:08] LABS: Glucose, Whole Blood 108 mg/dL (60-115)
[2024-01-31 07:25] LABS: Anion Gap 12 (12-20); Blood Urea Nitrogen 14 mg/dL (9-16); Calcium 8.7 mg/dL (8.4-10.2); Carbon Dioxide 23 mmol/L (22-29); Chloride 108 mmol/L (96-108); Creatinine Clr Calc Pharmacy 136.5; Estimated Glomerular Filt Rate > 60; Glucose Random 118 mg/dL (60-115); Magnesium 2.4 mg/dL (1.6-2.6); Potassium 3.3 mmol/L (3.3-5.1); Sodium 140 mmol/L (135-145)
[2024-01-31] MEDS: Gabapentin 400 MG CAPSULE 800 MG PO ×3 (07:37→21:06)
[2024-01-31] MEDS: Thiamine HCL 100 MG TABLET PO (07:37)
[2024-01-31] MEDS: Folic Acid 1 MG TABLET PO (07:37)
[2024-01-31] MEDS: Methylphenidate HCl 10 MG TABLET 20 MG PO ×2 (07:37→13:27)
[2024-01-31] MEDS: Famotidine 20 MG TABLET PO ×2 (07:38→21:07)
[2024-01-31] MEDS: Buprenorphine/Naloxone 8/2 mg FILM 1 FILM SUBLINGUAL ×3 (07:39→17:18)
[2024-01-31 07:52] LABS: Alanine Aminotransferase 80 U/L (0-40); Albumin Level 3.9 g/dL (3.5-5.0); Alkaline Phosphatase 70 U/L (39-117); Aspartate Amino Transferase 105 U/L (5-37); Bilirubin Direct 0.1 mg/dL (0.0-0.5); Bilirubin Total 0.3 mg/dL (0.0-1.0); Total Protein 6.1 g/dL (6.5-8.0)
[2024-01-31] MEDS: 0.9 % Sodium Chloride Flush 3 ML SYRINGE IVFLUSH ×2 (09:13→15:38)
--- NOTE | 2024-01-31 10:46 | PC.NURSE ---
LAKIA 15 medicated with Lorazepam PRN
[2024-01-31 10:58] LABS: Glucose, Whole Blood 145 mg/dL (60-115)
[2024-01-31 11:09] VITALS: BP 133/72; PULSE 84; RESP 18; TEMP 36.7; O2SAT 97
--- NOTE | 2024-01-31 11:14 | P.PNIM_ITS ---
Subjective Subjective Date of Service: 01/31/24 Interval History: Seen and examined this morning Follow-up for Wellbutrin overdose received extra dose of IV ativan overnight feeling anxious this am, but otherwise no significant tremors Review of Systems Review of Systems: Yes all other systems are reviewed and are negative Constitutional Constitutional: Denies chills and Denies fever(s) ENT Ears, Nose, Mouth, and Throat: Denies dizziness Cardiovascular Cardiovascular: Denies chest pain and Denies palpitations Neurologic Neurologic: Denies dizziness Endocrine Endocrine: Denies palpitations Physical Exam 2 Vital Signs: Vital Signs: Last Vital Signs Temp 98.1 F 01/31/24 11:09 Pulse 84 01/31/24 11:09 Resp 18 01/31/24 11:09 BP 133/72 01/31/24 11:09 Pulse Ox 97 01/31/24 11:09 O2 Del Method Room Air 01/31/24 11:09 BMI result Body Mass Index 28.4 Const: General: cooperative, comfortable, alert and awake Nutritional Appearance: average body habitus Orientation/consciousness: patient oriented x3 Resp: Effort & Inspection: normal respiratory effort, able to speak in complete sentences, no respiratory distress and no use of accessory muscles A uscultation: clear to auscultation bilaterally Cardio: Rate: regular rate GI: Inspection: No distended Palpation (GI): Soft to palpation and nontender Skin: Other: b/l hands appears same as per pictures on admission H&P - left hand clear fluid filled blisters index finger; right hand no blisters, scabs index finger. no surrounding erythema Neuro: General: patient oriented x3 Objective Data Active Medications Acetaminophen (Acetaminophen 325 Mg Tablet) 650 mg PO Q6H PRN PRN Reason: Pain, Mild (Pain Scale 1-3), fever or headache Bacitracin (Bacitracin Oint 14 Gm Tube) 1 appl TOPICAL BID [facility]; Protocol Last Admin: 01/31/24 09:52 Dose: Not Given Documented By: ESTUARDO Non-Admin Reason: Patient Refused Benzonatate (Benzonatate 100 Mg Capsule) 100 mg PO TID PRN PRN Reason: Cough Buprenorphine/Naloxone (Buprenorphine/Naloxone 8/2 Mg Film) 1 film SUBLINGUAL TID@0800,1200,1700 [facility] Last Admin: 01/31/24 07:39 Dose: 1 film Documented By: ESTUARDO Calcium Carbonate (Calcium Carbonate 750 Mg Tab.Chew) 750 mg PO Q4H PRN PRN Reason: Heartburn Enoxaparin Sodium (Enoxaparin Sodium 40 Mg/0.4 Ml Syringe) 40 mg SUBCUT Q24H [facility] Last Admin: 01/30/24 14:09 Dose: 40 mg Documented By: SRINI Famotidine (Famotidine 20 Mg Tablet) 20 mg PO BID [facility] Last Admin: 01/31/24 07:38 Dose: 20 mg Documented By: ESTUARDO Folic Acid (Folic Acid 1 Mg Tablet) 1 mg PO DAILY [facility] Stop: 02/02/24 13:24 Last Admin: 01/31/24 07:37 Dose: 1 mg Documented By: ESTUARDO Gabapentin (Gabapentin 400 Mg Capsule) 800 mg PO TID [facility] Last Admin: 01/31/24 07:37 Dose: 800 mg Documented By: ESTUARDO Glucose (Glucose Gel 15 Gm Gel..Gram.) 15 gm PO Q15M PRN; Protocol PRN Reason: per Hypoglycemia Standing Ord. Dextrose (D10) 250 mls @ 750 mls/hr IV Q15M PRN; Protocol PRN Reason: per Hypoglycemia Standing Ord. Insulin Human Lispro (Insulin Lispro 100 Unit/Ml 3 Ml Vial) 0 unit SUBCUT QIDACHS [facility]; Protocol Last Admin: 01/31/24 11:09 Dose: Not Given Documented By: ESTUARDO Non-Admin Reason: No Insulin Coverage Lorazepam (Lorazepam 1 Mg Tablet) 1 mg PO Q4H PRN PRN Reason: Breakthrough alcohol withdrawa Stop: 02/03/24 13:17 Last Admin: 01/31/24 09:12 Dose: 1 mg Documented By: ESTUARDO Lorazepam (Lorazepam 1 Mg Tablet) 1 mg PO Q4H [facility]; Taper Stop: 02/03/24 15:29 Last Admin: 01/31/24 11:08 Dose: 1 mg Documented By: ESTUARDO Magnesium Hydroxide (Milk Of Magnesia 30 Ml Oral.Susp) 30 ml PO DAILY PRN PRN Reason: Constipation Methylphenidate HCl (Methylphenidate Hcl 10 Mg Tablet) 20 mg PO 0800,1400 [facility] Last Admin: 01/31/24 07:37 Dose: 20 mg Documented By: ESTUARDO Ondansetron HCl (Ondansetron Hcl 4 Mg/2 Ml Vial) 4 mg IVPUSH Q8H PRN PRN Reason: Nausea and Vomiting Prazosin HCl (Prazosin Hcl 5 Mg Capsule) 5 mg PO BEDTIME [facility]; Protocol Last Admin: 01/30/24 22:24 Dose: 5 mg Documented By: SANDRA Quetiapine Fumarate (Quetiapine Fumarate 50 Mg Tablet) 150 mg PO BEDTIME [facility] Last Admin: 01/30/24 22:17 Dose: 150 mg Documented By: SANDRA Sodium Chloride (0.9 % Sodium Chloride Flush 3 Ml Syringe) [facility] Last Admin: 01/31/24 09:13 Dose: 3 ml Documented By: ESTUARDO Thiamine HCl (Thiamine Hcl 100 Mg Tablet) 100 mg PO DAILY [facility] Stop: 02/02/24 13:24 Last Admin: 01/31/24 07:37 Dose: 100 mg Documented By: ESTUARDO Trazodone HCl (Trazodone Hcl 100 Mg Tablet) 100 mg PO BEDTIME PRN PRN Reason: Insomnia Last Admin: 01/30/24 22:16 Dose: 100 mg Documented By: SANDAR Zolpidem Tartrate (Zolpidem Tartrate 5 Mg Tablet) 5 mg PO BEDTIME PRN PRN Reason: insomnia Last Admin: 01/30/24 22:17 Dose: 5 mg Documented By: SANDRA Labs 01/31/24 06:23 01/31/24 06:23 Labs: Laboratory Results - last 24 hr 01/30/24 01/31/24 01/31/24 12:23 06:23 06:57 MCV 88.6 MCH 31.1 MCHC 35.1 RDW 13.5 Plt Count 170 D MPV 10.7 Absolute Nucleated RBC 0.000 Nucleated RBC % (auto) 0.0 Anion Gap 12 Estim Creat Clear Calc 136.5 Estimated GFR > 60 POC Glucose 108 Random Glucose 118 H Calcium 8.7 D Magnesium 2.4 Total Bilirubin 0.3 Direct Bilirubin 0.1 AST 105 H ALT 80 H Alkaline Phosphatase 70 Total Protein 6.1 L Albumin 3.9 Urine Color Yellow Urine Appearance Clear Urine pH 6.0 Ur Specific [place] >= 1.030 H Urine Protein 30 (1+) H Urine Glucose (UA) 100 H Urine Ketones 40 Urine Blood Negative Urine Nitrite Negative Ur Leukocyte Esterase Negative Urine RBC 0-2 Urine WBC 0-5 Ur Squamous Epith Cells 0-2 Urine Bacteria None Seen Hyaline Casts 3-5 Urine Opiates Screen Not Detected Ur Buprenorphine Scrn Positive H Ur Oxycodone Screen Not Detected Urine Methadone Screen Not Detected Urine Fentanyl Screen Not Detected Ur Barbiturates Screen Not Detected Ur Phencyclidine Scrn Not Detected Ur Amphetamines Screen Not Detected U Benzodiazepines Scrn Not Detected Urine Cocaine Screen POSITIVE H U Marijuana (THC) Screen Not Detected 01/31/24 10:52 MCV MCH MCHC RDW Plt Count MPV Absolute Nucleated RBC Nucleated RBC % (auto) Anion Gap Estim Creat Clear Calc Estimated GFR POC Glucose 145 H Random Glucose Calcium Magnesium Total Bilirubin Direct Bilirubin AST ALT Alkaline Phosphatase Total Protein Albumin Urine Color Urine Appearance Urine pH Ur Specific [place] Urine Protein Urine Glucose (UA) Urine Ketones Urine Blood Urine Nitrite Ur Leukocyte Esterase Urine RBC Urine WBC Ur Squamous Epith Cells Urine Bacteria Hyaline Casts Urine Opiates Screen Ur Buprenorphine Scrn Ur Oxycodone Screen Urine Methadone Screen Urine Fentanyl Screen Ur Barbiturates Screen Ur Phencyclidine Scrn Ur Amphetamines Screen U Benzodiazepines Scrn Urine Cocaine Screen U Marijuana (THC) Screen Assessment and Plan (1) Second degree burn of multiple fingers: Status: Acute (2) Bupropion overdose: Status: Acute Plan Pt is a 53-year-old male with a PMH significant for?alcohol use disorder w/ hx of withdrawal, opioid use disorder, cocaine use disorder, anxiety, PTSD, and MDD with multiple previous suicide attempts who presents to the ED for evaluation of intentional overdose of 15 pills of Wellbutrin?XL 115mg at 05:00 this morning. Pt will be admitted to the hospital for treatment and further evaluation of intentional overdose on home medications and acute alcohol withdrawal. Intentional drug overdose with wellbutrin s/p activated charcoal no QT prolongation - will repeat one more ekg this am One-to-one sitter Care team consult once medically cleared Acute alcohol withdrawal hx of alcohol w/withdrawal allergic to phenobarbatol - continue ativan withdrawal protocol Folic acid, thiamine, multivitamin, famotidine Seizure precautions Addiction medicine consult pending First and second degree padilla on fingers bilaterally Secondary to crack pipe use Bacitracin on wounds b.i.d. Polysubstance use disorder Reports daily crack cocaine use x2 weeks Continue Suboxone Addiction medicine consult Non-insulin dependent diabetes type 2 Hold metformin Cover with sliding scale insulin Diabetic diet Full Code Attending:?Dr. Ruelas DVT Prophylaxis: Lovenox Pt requires ongoing inpatient stay for suicide attempt with intentional overdose and acute alcohol withdrawal Quality Stroke Does the patient have a stroke diagnosis?: No VTE Prior VTE?: No VTE Risk Level:: Medical - moderate - high VTE Device Contraindication: Treatment Not Indicated VTE Drug Contraindication: N/A - Med Ordered
--- NOTE | 2024-01-31 12:20 | MHC.CM.PN ---
EMR REVIEWED, PT W/INTENTIONAL OD/ETOH WITHDRAWAL, CM MET W/PT WHO REPORTS HE WOULD LIKE PSYCH IPLOC AND WILL NEED TO BE SEEN BY [facility] ONCE MEDICALLY CLEARED. PT REPORTS HE IS PART OF [facility] PROGRAM AND THEY WILL TAKE HIM BACK BUT HE NEEDS MENTAL HEALTHNSTABILIZATION FIRST. PT INDEP, NO DME, NO SERVICES, PT VERIFIES PCP ON FILE IS CORRECT AND HAS BEEN EDUCATED ON AND DECLINES TO COMPLETE A HCP AND REPORTS HE HAS NO ONE TO BE HIS HCP.
[2024-01-31] MEDS: Enoxaparin Sodium 40 MG/0.4 ML SYRINGE SUBCUT (13:28)
--- NOTE | 2024-01-31 13:33 | PC.NURSE ---
CIWA 19 pt , medicated with Lorazepam 1 mg po PRN , pt stated that I wants to jump off of my skin , stated that Lorazepam 1 mg is not enough for his withdrawal . Made GONZALEZ Quiroz aware
--- NOTE | 2024-01-31 13:43 | PC.NURSE ---
one dose of Lorazepam 1 mg po ordered and administered
[2024-01-31 16:00] VITALS: BP 141/86; PULSE 76; RESP 20; TEMP 36.7; O2SAT 97
[2024-01-31 17:08] LABS: Glucose, Whole Blood 122 mg/dL (60-115)
[2024-01-31 19:48] VITALS: BP 145/76; PULSE 75; RESP 18; TEMP 36.8; O2SAT 96
[2024-01-31 19:51] LABS: Glucose, Whole Blood 102 mg/dL (60-115)
[2024-01-31] MEDS: QUEtiapine Fumarate 50 MG TABLET 150 MG PO (21:06)
[2024-01-31] MEDS: traZODone HCL 100 MG TABLET PO (21:06)
[2024-01-31] MEDS: Prazosin HCL 5 MG CAPSULE PO (21:07)
[2024-01-31] MEDS: Zolpidem Tartrate 5 MG TABLET 10 MG PO (21:07)
[2024-01-31 23:25] VITALS: BP 120/63; PULSE 82; RESP 18; TEMP 36.5; O2SAT 96
[2024-02-01] MEDS: 0.9 % Sodium Chloride Flush 3 ML SYRINGE IVFLUSH ×3 (00:30→17:04)
[2024-02-01 04:00] VITALS: BP 112/59; PULSE 81; RESP 18; TEMP 36.8; O2SAT 95
[2024-02-01] MEDS: LORazepam 1 MG TABLET PO ×8 (04:03→23:20)
[2024-02-01 07:05] LABS: Glucose, Whole Blood 102 mg/dL (60-115)
--- NOTE | 2024-02-01 07:19 | PC.NURSE ---
Assumed care of patient from 1845 on 01/31/24 to 0615 on 02/01/24. Patient had a fairly good night of sleep. No complaints voiced. CIWA score 11 around 2000. 2 mg po lorazepam given at that time. CIWA Score at midnight was 7 and CIWA Score at 0400 was 6. NSR on telemetry. Patient continues to have sitter 1:1 at bed side. No injury reported.
[2024-02-01 07:23] VITALS: BP 132/67; PULSE 78; RESP 18; TEMP 37.2; O2SAT 94
[2024-02-01] MEDS: Methylphenidate HCl 10 MG TABLET 20 MG PO ×2 (08:38→14:32)
[2024-02-01] MEDS: Famotidine 20 MG TABLET PO ×2 (08:38→19:34)
[2024-02-01] MEDS: Folic Acid 1 MG TABLET PO (08:38)
[2024-02-01] MEDS: Gabapentin 400 MG CAPSULE 800 MG PO ×3 (08:38→19:34)
[2024-02-01] MEDS: Buprenorphine/Naloxone 8/2 mg FILM 1 FILM SUBLINGUAL ×3 (08:38→16:24)
[2024-02-01] MEDS: Thiamine HCL 100 MG TABLET PO (08:38)
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
[2024-02-01 10:52] LABS: Glucose, Whole Blood 124 mg/dL (60-115)
--- NOTE | 2024-02-01 10:53 | PC.NURSE ---
CIWA not done at 8 am , pt was sleeping ,
--- NOTE | 2024-02-01 10:59 | PC.NURSE ---
CIWA 18 , anxious, agitated, tremors, halucinatios reported by pt. Medicated with Lorazepam 1 mg po PRN
[2024-02-01 11:08] VITALS: BP 146/72; PULSE 75; RESP 18; TEMP 36.9; O2SAT 96
[2024-02-01] MEDS: Enoxaparin Sodium 40 MG/0.4 ML SYRINGE SUBCUT (14:32)
[2024-02-01 16:00] VITALS: BP 157/82; PULSE 82; RESP 18; TEMP 36.8; O2SAT 94
[2024-02-01 16:34] LABS: Glucose, Whole Blood 118 mg/dL (60-115)
[2024-02-01] MEDS: Prazosin HCL 5 MG CAPSULE PO (19:32)
[2024-02-01] MEDS: QUEtiapine Fumarate 50 MG TABLET 150 MG PO (19:32)
[2024-02-01] MEDS: Zolpidem Tartrate 5 MG TABLET 10 MG PO (19:34)
[2024-02-01 20:00] VITALS: BP 144/76; PULSE 86; RESP 20; TEMP 36.7; O2SAT 94
[2024-02-01 21:06] LABS: Glucose, Whole Blood 157 mg/dL (60-115)
[2024-02-01] MEDS: Insulin Lispro 100 UNIT/ML 3 ML VIAL SUBCUT (21:25)
[2024-02-02] VITALS: BP 145/69; PULSE 95; RESP 16; TEMP 36.9; O2SAT 95
[2024-02-02 04:00] VITALS: BP 115/64; PULSE 81; RESP 17; TEMP 36.9; O2SAT 96
[2024-02-02] MEDS: LORazepam 1 MG TABLET PO ×5 (06:01→19:55)
[2024-02-02 07:09] VITALS: BP 133/73; PULSE 76; RESP 16; TEMP 37.6; O2SAT 94
[2024-02-02 07:20] LABS: Glucose, Whole Blood 136 mg/dL (60-115)
[2024-02-02] MEDS: Folic Acid 1 MG TABLET PO (08:35)
[2024-02-02] MEDS: Methylphenidate HCl 10 MG TABLET 20 MG PO ×2 (08:35→14:23)
[2024-02-02] MEDS: Gabapentin 400 MG CAPSULE 800 MG PO ×3 (08:35→19:56)
[2024-02-02] MEDS: Thiamine HCL 100 MG TABLET PO (08:35)
[2024-02-02] MEDS: Buprenorphine/Naloxone 8/2 mg FILM 1 FILM SUBLINGUAL ×3 (08:35→16:53)
[2024-02-02] MEDS: Famotidine 20 MG TABLET PO ×2 (08:35→19:56)
[2024-02-02] MEDS: ondansetron HCL 4 MG/2 ML VIAL IVPUSH (08:36)
[2024-02-02] MEDS: 0.9 % Sodium Chloride Flush 3 ML SYRINGE IVFLUSH ×2 (08:41→15:45)
[2024-02-02 11:28] VITALS: BP 127/73; PULSE 76; RESP 18; TEMP 36.9; O2SAT 94
[2024-02-02 11:33] LABS: Glucose, Whole Blood 120 mg/dL (60-115)
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
--- NOTE | 2024-02-02 14:15 | MHC.RECOVRN ---
AUDIT-C Brief Intervention Pt had positive screen for unhealthy alcohol use on admission, subsequently met with t/w to discuss alcohol use and recovery supports/options. Pt voices concern regarding alcohol use and is aware that drinking at unhealthy levels is known to increase risk of alcohol related health problems. Pt reports 1 quart whiskey daily x 1.5 months. Pt also reports cocaine use, INH, $20-$30 daily except for last night of use- pt reports 1 ounce night [employer]. Pt expresses how alcohol use has impacted health, including negative impact on mental health. Discussed risk reduction strategies including drinking below the recommended limit. Provided pt with written resources including information on inpatient and outpatient treatment, KATIE, harm reduction, and recovery coaching. Pt plans to be admitted to inpatient and [facility] dc from [facility]. Pt provided with t/w contact information if questions or concerns arise. Denies other questions or concerns at this time.
[2024-02-02] MEDS: Enoxaparin Sodium 40 MG/0.4 ML SYRINGE SUBCUT (14:23)
--- NOTE | 2024-02-02 14:42 | MHC.CM.PN ---
EMR reviewed and per MD rounds, pt is not medically cleared for discharge due to continued management of ETOH withdrawal.
--- NOTE | 2024-02-02 15:18 | MHC.CARE ---
Pt seen by CARE team and recommendation is for inpatient level of care.
[2024-02-02 16:00] VITALS: BP 150/80; PULSE 106; RESP 16; TEMP 36.5; O2SAT 97
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
[2024-02-02 16:45] LABS: Glucose, Whole Blood 124 mg/dL (60-115)
[2024-02-02] MEDS: QUEtiapine Fumarate 50 MG TABLET 150 MG PO (19:55)
[2024-02-02] MEDS: Prazosin HCL 5 MG CAPSULE PO (19:56)
[2024-02-02] MEDS: Zolpidem Tartrate 5 MG TABLET 10 MG PO (19:56)
[2024-02-02 20:00] VITALS: BP 133/64; PULSE 99; RESP 20; TEMP 36.6; O2SAT 94
[2024-02-02 21:19] LABS: Glucose, Whole Blood 182 mg/dL (60-115)
[2024-02-02] MEDS: Insulin Lispro 100 UNIT/ML 3 ML VIAL SUBCUT (21:37)
[2024-02-02] MEDS: traZODone HCL 100 MG TABLET PO (21:39)
[2024-02-03] VITALS: BP 114/55; PULSE 79; RESP 20; TEMP 37.2; O2SAT 93
[2024-02-03] MEDS: LORazepam 1 MG TABLET PO ×3 (03:16→08:45)
[2024-02-03 04:00] VITALS: BP 142/71; PULSE 80; RESP 20; TEMP 36.8; O2SAT 95
[2024-02-03 07:26] LABS: Glucose, Whole Blood 105 mg/dL (60-115)
[2024-02-03 08:00] VITALS: BP 113/72; PULSE 69; RESP 18; TEMP 36.6; O2SAT 95
[2024-02-03] MEDS: Gabapentin 400 MG CAPSULE 800 MG PO (08:43)
[2024-02-03] MEDS: Famotidine 20 MG TABLET PO (08:43)
[2024-02-03] MEDS: Buprenorphine/Naloxone 8/2 mg FILM 1 FILM SUBLINGUAL ×2 (08:44→12:07)
[2024-02-03] MEDS: 0.9 % Sodium Chloride Flush 3 ML SYRINGE IVFLUSH (08:44)
[2024-02-03] MEDS: Methylphenidate HCl 10 MG TABLET 20 MG PO (08:44)
[2024-02-03 11:24] LABS: Glucose, Whole Blood 117 mg/dL (60-115)
--- NOTE | 2024-02-03 11:57 | P.DS_ITS ---
DS: Providers Provider Date of Service: 02/03/24 Date of admission: 01/30/24 13:23 Primary care physician: Gonzales Rust MD Consults: 01/30/24 15:11 Addiction Medicine Routine Consulting Provider: Addiction Covering Reason for consultation: Alcohol and crack cocaine use 01/31/24 07:40 Consult to Wound Care Routine Reason for consultation: b/l hand padilla 02/02/24 10:11 Consult to Care Team Routine Comment: Reason for consultation: medically clear DS: Diagnosis Discharge Diagnosis (1) Alcohol use disorder: Status: Acute (2) Chronic post-traumatic stress disorder (PTSD): Status: Acute (3) MDD (major depressive disorder), recurrent episode, severe: Status: Acute (4) Crack cocaine use: Status: Acute DS: Summary Hospital Course Hospital Course: History and physical as per admitting provider. Pt is a 53-year-old male with a PMH significant for?alcohol use disorder w/ hx of withdrawal, opioid use disorder, cocaine use disorder, anxiety, PTSD, and MDD with multiple previous suicide attempts who presents to the ED for evaluation of intentional overdose of 15 pills of Wellbutrin?XL 115mg at 05:00 this morning. Patient states he has relapsed on alcohol within the past 1-1/2 months, drinking around a quart with last drink yesterday at 06:00. Has also been smoking crack cocaine daily x2 weeks. Sustained padilla on his fingers from crack pipe. In the ED pt was given activated charcoal and started on Ativan protocol for alcohol withdrawal. Pt has had multiple similar intentional overdoses in the past. Was last discharged from inpatient psychiatry on 12/17. Since then patient states has had little social support and has not been seeing anyone outpatient for Psychiatry. Has been increasingly depressed. Denies auditory or visual hallucinations. Has been experiencing increased anxiety, headache, and photophobia. Nausea and lower abdominal pain, but no vomiting. Upper extremity tremors. Reports history of delirium tremens and alcohol withdrawal seizures. Currently no chest pain or pressure. No difficulty breathing or SOB. In the ED pt's vitals WNL. Labs were significant for WBCs 11.6, bilirubin 1.3, AST 217, and ALT 109. No significant electrolyte abnormalities. Renal function baseline. Salicylates, acetaminophen, and ethyl alcohol undetectable. EKG demonstrated normal sinus rhythm with QTC of [address] elevations or depressions. Repeat EKG showed normal sinus rhythm and with nonspecific T-wavec abnormality with improved QT of 448. Pt was treated with activated charcoal, IVF, ketorolac, and started on Ativan protocol for alcohol withdrawal. Pt will be admitted to the hospital for treatment and further evaluation of intentional overdose on home medications and acute alcohol withdrawal. 53-year-old man treated for intentional overdose of Wellbutrin. He was treated with activated charcoal in the ER, he had no seizure activity, no QT prolongation or other EKG abnormalities. He did have a sitter during this hospitalization. He was seen and evaluated by the care team who recommended transfer to psychiatric floor. During his hospitalization he was also treated for alcohol withdrawal with lorazepam. His CIWA levels have been less than 8. No alcohol withdrawal seizures noted. He also had 1st and second-degree padilla on his fingers secondary to crack pipe use and has been treated with bacitracin twice daily, that can be continued if necessary. Polysubstance abuse disorder. Continue Suboxone Diabetes mellitus type 2. He was sliding scale during hospitalization with good blood sugar control. Continue metformin Transaminitis. Secondary to alcohol use, LFTs trended down Time Attestation Discharge Coordination Time (in mins): 30 Quality: Safe Use of Opioids Does Pt have an Active Cancer Diagnosis on the Problem List?: No Quality: Stroke Does the patient have a stroke diagnosis?: No Physical Exam Vital Signs: Vital Signs: Last Vital Signs Temp 97.8 F 02/03/24 08:00 Pulse 69 02/03/24 08:00 Resp 18 02/03/24 08:00 BP 113/72 02/03/24 08:00 Pulse Ox 95 02/03/24 08:00 O2 Del Method Room Air 02/03/24 08:00 BMI result Body Mass Index 28.4 Appearing in no acute distress head is normocephalic atraumatic eyes pupils are PERRLA sclera is anicteric mouth throat mucous membranes are intact and moist neck is supple no lymphadenopathy, no JVD noted lung sounds are clear to auscultation heart regular rate rhythm, clear S1, S2 positive bowel sounds, abdomen is soft, nontender neuro patient is alert x3, no focal deficits DS: Data Data Completed and Pending Completed studies during hospitalization [Text1]: Procedures Detoxification Services for Substance Abuse Treatment (12/08/23) Labs on day of discharge: Laboratory Results - last 24 hr 02/02/24 02/02/24 02/03/24 16:32 21:12 07:18 POC Glucose 124 H 182 H 105 02/03/24 11:20 POC Glucose 117 H Discharge Plan Discharge Anticipated Discharge Date/Time: 02/03/24 11:52 Patient Disposition: Xfer Psychiatric Hosp Discharge Diagnosis: Overdose Suicide ideation Alcohol withdrawal Referrals: Gonzales Rust MD [Primary Care Provider] - 1 Week Discharge Medications: Continued metformin 500 mg tablet 500 mg PO BID gabapentin 800 mg tablet 800 mg PO TID quetiapine 100 mg tablet 150 mg PO BEDTIME methylphenidate HCl 10 mg Tablet 20 mg PO 0800,1400 Qty: 60 0RF Rx Instructions: Partial Fill upon patient request. prazosin 5 mg Capsule 5 mg PO BEDTIME Qty: 30 0RF Protocol: Hold for SBP< HOLD for SBP < : 90 trazodone 100 mg Tablet 100 mg PO BEDTIME PRN (Reason: Insomnia) Qty: 30 0RF zolpidem [Ambien] 10 mg tablet 10 mg PO BEDTIME PRN (Reason: insomnia) Qty: 10 0RF buprenorphine-naloxone [Suboxone] 8-2 mg Film 1 film sublingual TID@0800,1200,1700 Qty: 10 0RF Discontinued lorazepam [Ativan] 1 mg tablet 1 mg PO DAILY PRN (Reason: withdrawal symptoms) Qty: 5 0RF bupropion HCl [Wellbutrin XL] 300 mg tablet extended release 24 hr 300 mg PO QAM 30 Days Qty: 30 0RF Rx Instructions: take with 150mg tab bupropion HCl [Wellbutrin XL] 150 mg tablet extended release 24 hr 150 mg PO QAM 30 Days Qty: 30 0RF Rx Instructions: take with 300mg tab Discharge Orders: Discharge Order (Routine); Ordered 02/03/24 Ordered By: Lexii Willson Diet: Advance to usual diet Activity on Discharge: As tolerated Stand Alone Forms: Patient Portal Discharge page Print Language: [place] [facility] Concerns: Overdose Suicidal ideation Alcohol withdrawal Plan of Treatment: Plan to transfer to for psychiatric care Assessment: See discharge summary
[2024-02-03 12:00] VITALS: BP 142/80; PULSE 77; RESP 20; TEMP 36.7; O2SAT 97
[2024-02-03] MEDS: Enoxaparin Sodium 40 MG/0.4 ML SYRINGE SUBCUT (12:07)
--- NOTE | 2024-02-03 13:00 | MHC.CM.PN ---
Pt will be discharge to inpatient psych LOC.
== END 2024-02-03 13:51 | DRG 817 ==
LOC: HO.ED 09:39 → HO.EDOVER 13:47 → HO.IMC 19:31
PROVIDERS: Physician Assistant Medical; Admitting Provider Student in an Organized Health Care Education/Training Program; Emergency Provider Emergency Medicine Emergency Medical Services; PCP Family Medicine; Visit Provider Nurse Practitioner Acute Care
DX: T43.292A Poisoning by other antidepressants, intentional self-harm, initial encounter (principal); T31.0 Burns involving less than 10% of body surface; F33.2 Major depressive disorder, recurrent severe without psychotic features; F10.230 Alcohol dependence with withdrawal, uncomplicated; F43.12 Post-traumatic stress disorder, chronic; F17.210 Nicotine dependence, cigarettes, uncomplicated; T23.241A Burn of second degree of multiple right fingers (nail), including thumb, initial encounter; X08.8XXA Exposure to other specified smoke, fire and flames, initial encounter; F90.9 Attention-deficit hyperactivity disorder, unspecified type; Z71.6 Tobacco abuse counseling; Z79.84 Long term (current) use of oral hypoglycemic drugs; Z79.899 Other long term (current) drug therapy
CPT/HCPCS: 36415; 80048; 80053; 80076; 80143; 80179; 80307; 81001; 82947; 83735; 85025; 85027; 93005; 99285; J1650; J1885; J2060; J2405; S9485

== ENCOUNTER → 2024-01-30 13:23 | Outpatient (BNV) | payer MEDICAID, SELFPAY | PROVIDERS: Admitting Provider Student in an Organized Health Care Education/Training Program; Emergency Provider Emergency Medicine Emergency Medical Services; PCP Family Medicine; Visit Provider Physician Assistant Medical | DX: F33.2 Major depressive disorder, recurrent severe without psychotic features (principal); F10.139 Alcohol abuse with withdrawal, unspecified; F43.12 Post-traumatic stress disorder, chronic; F14.90 Cocaine use, unspecified, uncomplicated | CPT/HCPCS: 99223; 99232; 99239 ==

== ENCOUNTER → 2024-01-30 13:23 | Outpatient (BNV) | payer OTHER, SELFPAY | PROVIDERS: Admitting Provider Student in an Organized Health Care Education/Training Program; Emergency Provider Emergency Medicine Emergency Medical Services; PCP Family Medicine; Visit Provider Clinical Nurse Specialist Psychiatric/Mental Health, Adult | DX: F33.2 Major depressive disorder, recurrent severe without psychotic features (principal); F10.90 Alcohol use, unspecified, uncomplicated; F43.12 Post-traumatic stress disorder, chronic; F14.90 Cocaine use, unspecified, uncomplicated | CPT/HCPCS: 99232 ==

== ENCOUNTER 2024-02-03 14:21 | Inpatient (IN) | payer OTHER, SELFPAY ==
--- OUTSIDE RECORDS SUMMARY | 2024-02-03 14:23 | XMS_ITS ---
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
--- OUTSIDE RECORDS SUMMARY | 2024-02-03 14:24 | XMS_ITS | Patient Health Record ---
Author Organization [facility] Address [address], [place] [id number] Care Team Providers Care Supervisor Brine Name Role Phone Carmen Arpitachristiano Primary Care Provider [facility], Nursing Unavailable [phone] Sparkle Tsang Unavailable ALLERGIES No Known Allergies [...] Note Original Orderi ng Provider: NELSON LU MEDICAL CONSULTANT QFT PLUS INTERPRETATION NEGATIVE NEGATIVE REASON FOR REFERRAL Reason Client has a lot of mail at [employer] [facility] [employer]. Please when you see him on 04/08/2023 let him know he has important mail here. Thank you, Referral Organization [facility] Referring Provider First Name Juan Jose Referring Provider Last Name Morena Referring Provider Speciality Clinic or group practice Referred Organization [facility] Referred Provider Nelson Lu Referred Address [address] [facility],[place], [place],[id number] Referral Priority Urgent Reason [facility] [facility] [place] [address] [facility]/month x 12 months Referral Organization [facility] Referring Provider First Name Nelson Referring Provider Last Name Carmen Referring Provider Speciality Nurse Chelsie lin Referred Provider PT, -1 Referral Priority Routine Reason PT-[address] from [address], [place] to [facility] [address] [place], [place] 1 visit a month x 12 months Referral Organization [facility] Referring Provider First Name Nelson Referring Provider [...] 100MCG/0.5ML 1ST) IM Intramuscular 06/28/2020 Administered [facility] Tdap IM Intramuscular 09/27/2020 Administered [facility] [id number] Moderna Covid-19 Booster Administration - Third Dose (Single Dose 50 mcg/0.25 mL Unknown 05/15/2021 Administered [facility] 23 IM Intramuscular 01/24/2022 Administered Influenza IM Intramuscular 03/28/2022 Administered Influenza IM Intramuscular 04/08/2023 Administered [facility] [id number] Moderna Covid-19 Vaccine Administration - Second Dose (Single Dose 100 MCG/0.5ML 2ND) IM Intramuscular 07/26/2020 Pending [facility] Lot# [id number] SOCIAL HISTORY Tobacco Use: Social History Observation [...] C (B18.2) Active confirmed Chronic hepatitis C (424708694) Problem Disorder of white blood cells, 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) Active confirmed White blood cell disorder (11879107) Problem Vitamin D deficiency, unspecified (E55.9) Active confirmed Vitamin D deficiency (13355479) Problem Obesity, unspecified (E66.9) Active confirmed Obesity (325397376) Problem Alcohol dependence, uncomplicated (F10.20) Active confirmed Alcohol dependence (41515020) 12/2021: 6 months abstinent Problem Opioid dependence, uncomplicated (F11.20) Active confirmed Opioid dependence (10754576) Suboxone--- F11.21 Problem Cocaine abuse with intoxication, uncomplicated (F14.120) Active confirmed Problem Nicotine dependence, cigarettes, uncomplicated (F17.210) Active confirmed Tobacco user (443536021) Problem Major depressive disorder, single episode, severe without psychotic features (F32.2) 11/30/19 21 Active confirmed Severe major depression, single episode, without psychotic features (80107221) Problem Anxiety disorder, unspecified (F41.9) Active confirmed Anxiety disorder (193173353) Problem Insomnia, unspecified (G47.00) Active confirmed Insomnia (969250172) Problem Chronic rhinitis (J31.0) Active confirmed Chronic rhinitis (15129452) Problem Constipation, unspecified (K59.00) Active confirmed Constipation (15119185) Problem Rosacea, unspecified (L71.9) Active confirmed Rosacea (735118521) Problem Pain in right hip (M25.551) Active confirmed Right hip pain (7880169537886 02) Problem Body mass index [BMI] 32.0-32.9, adult (Z68.32) Active confirmed Body mass index 30.00 to 34.99 (8810077734571 07) Problem Sheltered homelessness (Z59.01) Active confirmed Sheltered homelessness (1486845956211 00) Problem Body mass index [BMI] 31.0-31.9, adult (Z68.31) Inactive confirmed Body mass index 30.00 to 34.99 (0735025402191 07) VITAL SIGNS Temperature 98.1 degrees Fahrenheit 05/08/2023 Blood pressure diastolic 77 05/08/2023 Oximetry 98 05/08/2023 Height 70.5 in 05/08/2023 Blood pressure systolic 131 05/08/2023 Weight 228.0 lbs 05/08/2023 BMI 32.25 kg/m2 05/08/2023 Encounters Encounter Location Date Provider Diagnosis [address] [id number] 02/10/2023 Eddieliza Carmen [address] [id number] 03/05/2023 Eddieliza Casionjeni Sheltered homelessness Z59.01 and Encounter for screening for COVID-19 Z11.52 [facility] [address] [place] [address] [place] [phone] 04/15/2023 Eddieliza Casionan [address] [id number] 04/30/[address] [id number] 05/07/[address] [id number] 08/07/2023 Eddielichristiano Lu Encounter for screening for COVID-[address] Z11.[address] [id number] 04/08/2023 Eddielichristiano Lu Vitamin D deficiency, unspecified E55.9 ; Alcohol dependence, uncomplicated F10.20 ; Obesity, unspecified E66.9 ; Chronic viral hepatitis C B18.2 ; Encounter for immunization Z23 ; Body mass index [BMI] 32.0-32.9, adult Z68.32 ; Rosacea, unspecified L71.9 and Pain in right hip M25.551 [facility] [employer] [address] [place] [id number] 04/21/2023 Sparkle Tsang [address] [id number] 04/23/2023 Nursing [facility] Encounter for examination of blood pressure without abnormal findings Z01.[address] [id number] 05/08/2023 Eddieliza Casionan Encounter for screening for [...] unspecified L71.9 and Alcohol dependence, uncomplicated F10.[address] [id number] 02/03/2023 Eddieliza Casionan [address] [id number] 02/05/2023 Eddieliza Casionan [address] [id number] 02/06/2023 Eddieliza Casionan [address] [id number] 02/07/2023 Eddieliza Casionan [address] [id number] 02/17/2023 Eddieliza Casionan Constipation, unspecified K59.[address] [id number] 02/21/2023 Eddieliza Casionan [address] [id number] 02/21/2023 Eddieliza Casionan [address] [id number] 03/04/2023 Eddieliza Casionan [address] [id number] 03/04/2023 Eddieliza Casionan [address] [id number] 03/05/2023 Eddieliza Casionan [address] [id number] 03/11/2023 Eddieliza Casionan [address] [id number] 03/12/2023 Eddieliza Casionan [address] [id number] 03/14/2023 Eddieliza Casionan [address] [id number] 03/17/2023 Eddieliza Casionan [address] [id number] 03/26/2023 Eddieliza Casionan Constipation, unspecified K59.00 ; Vitamin D deficiency, unspecified E55.9 ; Alcohol dependence, uncomplicated F10.20 and Chronic rhinitis J31.[address] [id number] 04/09/2023 Eddieliza Casionan Alcohol dependence, uncomplicated F10.[address] [id number] 04/14/2023 Eddieliza Casionan Alcohol dependence, uncomplicated F10.[address] [id number] 04/21/2023 Eddieliza Casionan [address] [id number] 04/23/2023 Eddieliza Casionan Vitamin D deficiency, unspecified E55.[address] [id number] 05/15/2023 Eddieliza Casionan [address] [id number] 06/20/2023 Eddieliza Casionan [facility] [address] [place] [address] [id number] 07/09/2023 Eddieliza Casionan [address] [id number] 07/18/2023 Eddieliza Casionan [address] [id number] 08/07/2023 Eddieliza Casionan [address] [id number] 12/26/2023 Eddieliza Casionan ASSESSMENTS Encounter Date Diagnosis Assessment Notes Treatment Notes Treatment Clinical Notes 04/23/2023 Encounter for examination of blood pressure without abnormal findings (ICD-10 - Z01.30) BP check,reading WNL. Will come back in 1 week for repeat check. 03/05/2023 Sheltered homelessness (ICD-10 - Z59.01) 08/07/2023 [...] to establish care with a provider in [place], [place] where he is moving 03/26/2023 Alcohol [...] refer to hematology. He is moving to [place]. Advised to call us in 3 months so we can fax lab order to him or to a lab around him 04/08/2023 Rosacea, unspecified (ICD-10 - L71.9) agrees to call [facility] to set up f/u appt PT-1 sent [...] 25-HYDROXY 04/08/2023 QUANTIFERON(R)-TB GOLD PLUS, 1 TUBE 05/0 09/2020 QUANTIFERON(R)-TB GOLD PLUS, 1 TUBE 03/26 QUANTIFERON(R)-TB GOLD PLUS, 1 TUBE 04/2 05/2021 QUANTIFERON(R)-TB GOLD PLUS, 1 TUBE 03/0 06/2022 Future Test Test Name Order Date CBC WITH AUTO DIFF 07/28/2023 Insurance Providers Payer Name Payer Address Payer Phone Subscriber Number Group Number Insured Name Patient Relationship to Insured Coverage Start Date Coverage End Date [place] C3 [address] [place], [place] [id number] Cam Narvaez Self - patient is the [...] Reason Date(Month/Year) Prov Detox and CSS 04/2020 [facility] Detox and CSS x 2 0 [place] [facility] 08/2020 [facility] ER : tongue lacerat ion 10/12/2020 [facility]: admission: OD Antidepressants ETOH W/D 11/29/2020 [facility] Suicide attempt 04/06-
--- OUTSIDE RECORDS SUMMARY | 2024-02-03 14:24 | XMS_ITS ---
Author Organization [facility] Address [address], [place] [id number] Care Team Providers Care Bottler Helper Name Role Phone Bhupinder Morales Primary Care Provider REASON FOR VISIT No show/insurance Encounters Encounter Location Date Provider Diagnosis [facility] [address], [place] [phone] 08/07/2023 Bhupinder Morales PLAN OF TREATMENT No Information
--- OUTSIDE RECORDS SUMMARY | 2024-02-03 14:24 | XMS_ITS ---
Author Organization [facility] Address [address], [place] [id number] Care Team Providers Care Solution Manager Name Role Phone Bhupinder Morales Primary Care Provider REASON FOR VISIT Office; F/U MEDICATIONS Medication SIG (Take, Route, Frequency, Duration) Notes Start Date End Date Status chlorproMAZINE 100 mg 1 tab(s) orally ev er 6 hours Not-Taking naproxen 500 mg 1 tab(s) orally once a day Not-Taking hydrOXYzine hydrochloride 50 mg 1 tab(s) orally qhs Not-Taki ng nicotine 2 mg 1 AMBER by transmucosa l administration every 2 hours for 30 days Not-Taking acetaminophen 650 mg 2 tab(s) orally delta ry 8 hours PRN back/hip pain for 28 days Not-Taking multivitamin Vitamin A and D 1 cap(s) orally once a day Not-Taking dextroamphetamine 20 mg 1 tab(s) orally 2 times a day Not-Taking amitriptyline 25 mg 1 tab(s) orally once a day (at bedtime) Not-Taking nicotine 14 mg/24 hr 1 PATCH transdermal ly once a day for 28 days Not-Takin g Calcium 600+D 600 mg-20 mcg 1 tab(s) orally 2 times a day for 30 day(s) 04/23/2023 Not-Taking prazosin 5 mg 1 cap(s) orally once a day Active Suboxone 8 mg-2 mg 1 film(s) sublingual ly Three times a day Active ferrous sulfate 325 mg 1 tab(s) orally o nce a day Active multivitamin Multiple Vitamins 1 cap(s) orally once a day for 28 day(s) 09/16/2022 Active methocarbamol 750 mg 2 tab(s) orally 3 times a day for 30 days Active Trazodone 100mg 150 mg 1 tab(s) orally hs Active zolpidem 10 mg 1 tab(s) orally once a day (at bedtime) Active Neurontin 800 mg 1 cap(s) orally tid Active thiamine 100 mg 1 tab(s) orally once a day for 90 days Active pyridoxine 50 mg 1 tab(s) orally once a day for 90 days Active Seroquel 100 mg 1 tab(s) orally 3 times a day Active senna 8.6 mg 2 tab(s) orally once a day (at bedtime) for 90 days Active folic acid 1 mg 1 tab(s) orally once a day for 90 days Active Ritalin 10 mg 1 tab(s) orally 2 times a day Active MiraLax - as directed orally once a day 3-4x week PRN constipation for 30 days Active metroNIDAZOLE topical 0.75% 1 geetha applied topically 2 times a day for 90 days Active Flonase Allergy Relief 50 mcg/inh 1 spray(s) in each nostril once a day for 90 days Active amLODIPine 5 mg 1 tab(s) orally once a day for 90 days 05/15/2023 Active CeleBREX 200 mg 1 cap(s) orally once a day for 90 days Active lidocaine topical 5% 1 PATCH applied topically once a day for 30 days Unknown cyclobenzaprine 10 mg 1 tab(s) orally 3 times a day as needed for pain for 30 days Not-Taking Wellbutrin XL 300 mg/24 hours 1 tab(s) orally every 24 hours Unknown Wellbutrin XL 150 mg/24 hours 1 tab(s) orally every 24 hours Unknown Encounters Encounter Location Date Provider Diagnosis [address] [id number] 08/07/2023 Bhupinder Morales Encounter for screening for COVID-19 Z11.52 ASSESSMENTS Encounter Date Diagnosis Assessment Notes Treatment Notes Treatment Clinical Notes 08/07/2023 Encounter for screening for COVID-19 (ICD-10 [...] you are having concerning symptoms for COVID-19. 08/07/2023 Other PLAN OF TREATMENT Treatment Notes Assessment Notes Encounter for screening for COVID-19 Cov id screening is negative. Discussed in detail with [...]
--- OUTSIDE RECORDS SUMMARY | 2024-02-03 14:25 | XMS_ITS | Continuity of Care Document ---
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 Name Role Phone Dionicio OLSEN, Caitlyn Primary Care Physician [phone] Encounter [facility] Date(s): 12/20/23 - 12/23/[address] [id number] Discharge Disposition: Transfer to [facility] Facility Attending Physician: Erasmo Moore DO Admitting Physician: John Mark MD Referring Physician: Not on Staff, Referring [...] : awaiting pharmacy to bring up Medications cloNIDine 0.1 mg oral tablet 0.1 mg, 1, tablet, By Mouth, 2 times a day, PRN, # 60 tablet, Refills 0, Maintenance, Anxiety, 12/20/23 21:03:00 EDT, Partial fill upon patient request if the prescription is for a schedule II opioiddrug. Start Date: 12/20/23 Status: Ordered docusate sodium 100 mg oral capsule 100 mg, 1, capsule, By Mouth, 2 times a day, PRN, # 20 capsule, Refills 0, Maintenance, for constipation, 12/20/23 21:04:00 EDT, Partial fill upon patient request if the prescription is for a schedule II opioid drug. Start Date: 12/20/23 Status: Ordered gabapentin 800 mg oral tablet 1 tablet = 800 mg, By Mouth, 3 times a day, # 90 tablet, 0 Refills, Maintenance, 12/20/23 21:01:00 EDT, Tablet, Partial fill upon patient request if the prescription is for a schedule II opioid drug. Start Date: 12/20/23 Status: Ordered melatonin 5 mg oral tablet 1 tablet = 5 mg, By Mouth, Daily at bedtime, PRN for insomnia, # 60 tablet, 0 Refills, Maintenance,12/20/23 21:05:00 EDT, Tablet, Partial fill upon patient request if the prescription is for a schedule II opioid drug. Start Date: 12/20/23 Status: Ordered prazosin 5 mg oral capsule 5 mg, By Mouth, Daily at bedtime, Refills 0, Maintenance, 01/22/23 13:03:00 EDT, Partial fill upon patient request if the prescription is for a schedule II opioid drug. Start Date: 01/22/23 Status: Ordered QUEtiapine 100 mg oral tablet 100 mg, 1, tablet, By Mouth, Daily at bedtime, # 90 tablet, Refills 0, Maintenance, 12/20/23 21:05:00 EDT, Partial fill upon patient request if the prescription is for a schedule II opioid drug. Start Date: 12/20/23 Status: Ordered Suboxone 8 mg-2 mg sublingual film See Instructions, 2 film in morning/1 film in evening, 0 Refills, Maintenance, 01/17/23 20:49:00 EDT, Film, Partial fill upon patient request if the prescription is for a schedule II opioid drug. Start Date: 01/17/23 Status: Ordered thiamine 100 mg oral tablet 100 mg, 1, tablet, By Mouth, Daily, Refills 0, Maintenance, 01/22/23 13:03:00 EDT, Partial fill upon patient request if the prescription is for a schedule II opioid drug. Start Date: 01/22/23 Status: Ordered Trazodone Tablet 100 mg, By Mouth, Daily at bedtime, Refills 0, Maintenance, 12/20/23 21:27:00 EDT, Partial fill upon patient request if the prescription is for a schedule II opioid drug. Start Date: 12/20/23 Status: Ordered zolpidem 10 mg oral tablet 1 tablet = 10 mg, By Mouth, Daily at bedtime, # 30 tablet, 0 Refills, Maintenance, 12/20/23 21:03:00 EDT, Partial fill upon patient request if the prescription is for a schedule II opioid drug. Start Date: 12/20/23 Status: Ordered Problem List Condition Confirmation Course Effective Dates Status H ealth Status Informant Alcohol abuse Confirmed Active Closed fracture of mandible Confirmed Active Obese class I Confirmed Active Polysubstance abuse Confirmed Active Results Radiology Reports * Exam Date Time Procedure Performing Provider Status 12/20/23 4:23 PM Chest 2 Views Fronta l and Lat Avril Zacarias; Auth (Verified) Notes: (Chest 2 Views Frontal and Lat) Reason For Exam: Shortness of Breath RESULT: Chest 2 Views Frontal and Lat Chest 2 Views Frontal and Lat Hx of Present Illness: pt from triage, admitted to taking 15-20 150mg Wellbutrin XR after smoking crack 2-3hrs ago. pt also admits to taking 2-3 nips this AM, less than his usual quart+12 pack of beers. states he can't answer that question right now after asking about SI HI.; Reason: Shortness ofBreath; Clinical Question(s): CHF COMPARISON: 01/22/2019. FINDINGS: LINES AND TUBES: None. LUNGS AND PLEURA: Clear lungs. Normal pulmonary vascularity. No pleural effusion. No pneumothorax. HEART, MEDIASTINUM AND JEREMIE: Heart is normal in size. Normal mediastinal and hilar contour. BONES AND SOFT TISSUES: No acute abnormality. IMPRESSION: No acute abnormality. WSN: [id number] Ordering Physician: Alexandro Ferguson Dictated By: Amy Nava MD Dictated Date/Time: 12/20/23 4:39 pm Reviewed By: Amy Nava MD Signed By: Amy Nava MD Signed Date/Time: 12/20/23 4:39 pm Transcribed By: NARINDER Transcribed Date/Time: 12/20/23 4:39 pm Vital Signs Most recent to oldest [Reference Range]: 1 2 3 Height 186 cm (12/23/23 6:28 AM) 186 cm (12/20/23 9:36 PM) 186 cm (12/20/23 8:04 PM) Weight 104.5 kg (12/20/23 9:36 PM) 104.5 kg (12/20/23 8:04 PM) 104.5 kg (12/20/23 12:56 PM) Oxygen Saturation [94-100 %] 98 % (12/23/23 8:00 AM) 96 % (12/23/23 6:28 AM) 92 % *L* (12/23/23 12:00 AM) Pulse Rate [55-90 bpm] 64 bpm (12/23/23 8:13 AM) 58 bpm (12/23/23 6:28 AM) 64 bpm (12/23/23 12:32 AM) Body Mass Index [18.5-24.99 kg/m2] 30.21 kg/m2 *>HHI* (12/20/23 9:36 PM) 30.21 kg/m2 *>HHI* (12/20/23 8:04 PM) 30.21 kg/m2 *>HHI* (12/20/23 12:27 PM) Blood Pressure [90-138/55-84 mm Hg] 144/81mm Hg *H* (12/23/23 8:13 AM) 119/84mm Hg (12/23/23 6:28 AM) 129/85mm Hg (12/23/23 12:32 AM) Respiratory Rate [16-30 br/min] 20 br/min (12/23/23 8:13 AM) 16 br/min (12/23/23 6:28 AM) 10 br/min *L* (12/23/23 12:32 AM) Temperature [96.8-100.4 DegF] 97.8 DegF (12/23/23 8:13 AM) 97.6 DegF (12/23/23 6:28 AM) 98.5 DegF (12/23/23 12:00 AM) Mode of Delivery (Oxygen) Room air (12/23/23 6:28 AM) Room air (12/23/23 12:00 AM) Room air (12/22/23 10:00 PM) Blood pressure sites Arm, left (12/23/23 6:28 AM) Arm, right (12/23/23 12:00 AM) Arm, right (12/22/23 10:00 PM) Temperature Route Oral (12/23/23 6:28 AM) Oral (12/23/23 12:00 AM) Oral (12/22/23 8:00 PM) Dry Weight 104.5 kg (12/20/23 9:36 PM) 104.5 kg (12/20/23 8:04 PM) 104.5 kg (12/20/23 12:56 PM) Weight Obtained Via Patient/family state d (12/20/23 12:27 PM) Dry Weight Obtained Via Patient/family s tated (12/20/23 12:27 PM) Social History Social History Type Response Smoking Status Current every day sm kapil; Tobacco user in household: No entered on: 07/26/16 Sex Admission evaluation note * Dale Talbot DO: PERFORM, MODIFY Event Display: Admission Note Authored Date: Patient: ??CORWIN NARVAZE ? Age:??53 Years?Sex:??Male?:??1970?? Chief Complaint/Reason for Consultation Bupropion Overdose History of Present Illness Per mPage:??53 y/o M PMH alcohol use d/o, prior SI attempts presenting to the ED w/ concern of toxic ingestion - drank EtOH, did crack and took wellbutrin in eder ttempt to end his life. Poison control reports observation for 24h, q2h EKGs. Also feels he is withdrawing - usually drinks 1/4 pint and only had 2 nips. Admit EtOH withdrawal, SI attempt. ?? Mr. Corwin Narvaez is a 53-year-old gentleman with medical history notable for polysubstance use (alcohol, cocaine, IV heroin), anxiety/depression complicated by prior suicide attempts/toxic ingestions, and seizures secondary to alcohol withdrawal who presented to the emergency department in setting of an intentional toxic ingestion with??crack cocaine followed by bupropion in an attempt to end hislife. ?? Mr. Narvaez??has??a longstanding history of substance??use??including alcohol. ??Had been in??rehab and??was successfully maintaining sobriety until he began??to consume alcohol??again??approximately one month??prior to his presentation.?? Endorses??having??immediately??starting with??high levels of c onsumption,??up to 1/4 pint of??hard liquor per day.?? On the day of his presentation, had only consumed??two??nips of alcohol??earlier in the day.?? With??his alcohol consumption,??on the day of presentation??decided to??drive down to [place] and smoked crack cocaine.?? Shortly thereafter, develope d??suicidal ideation??and??took a handful of his??bupropion.?? He is prescribed both 150 mg as wellas 300 mg extended release??pills.?Denies any other additional??substance use??and states that he only took the bupropion??and none of his other??medications.?? Notes that soon after he??took the bupropion he felt that he had made a mistake??and called emergency medical services.?? At time of encounter??states that he is glad that he is here in the hospital now.?? Endorses nausea secondary to??alcohol withdrawal. ??During our conversation, expressed interest in returning to rehab and attaining sobriety again. ??Curiously, had a nearly identical presentation approximately one year ago, during which he presented after consuming alcohol and crack cocaine as well as an excessive amount of Wellbutrin in an attempt to end his life.?? Subsequently regretted his decision, calling emergency medical services for evaluation.?Otherwise,??does continue to smoke cigarettes and is interested in nicotine??replacement. Counseled on cessation as well. ?? In the emergency department, vitals stable.?? Initial EKG with NSR at 78 bpm.?? QTc 485 ms.?? QRS 100 ms. Repeat EKGs similar.?? CBC with mild anemia, consistent with prior.?? Metabolic panel not concerning.?? Serum ethanol 37.?? Salicylate <0.3, acetaminophen <5, urine positive for cocaine, benzo but has been, and amphetamine.?? Negative for opiate, barbiturate, and cannabinoids.?? COVID-19 negative.?? Plain film chest without acute cardiopulmonary abnormality.?? While in the emergency department, received 2 g magnesium, thiamine IV 100 mg, multivitamin, folate, multiple doses of lorazepam to stave off alcohol withdrawal, and a 1.0 L bolus of LR.?? Emergency medicine team did discuss case with??poison control as well. Review of Systems A full review of systems was completed and is otherwise negative except as mentioned in history of present illness. Objective Vital Signs?? Temperature: 97.8 DegF (12/20/23 21:00:00) Temperature Route: Oral (12/20/23 21:00:00) Pulse Rate: 73 bpm (12/20/23 21:00:00) Respiratory Rate: 21 br/min (12/20/23 21:00:00) Systolic Blood Pressure: 122 mm Hg (12/20/23 21:00:00) Diastolic Blood Pressure: 66 mm Hg (12/20/23 21:00:00) Blood pressure sites: Arm, right (12/20/23 21:00:00) Mean Arterial Pressure: 78 mm Hg (12/20/23 20:04:00) Pulse Pressure: 56 mm Hg (12/20/23 21:00:00) Oxygen Saturation: 96 % (12/20/23 21:00:00) Mode of Delivery (Oxygen): Room air (12/20/23 21:00:00) Early Warning Score: 4 (12/20/23:27:55) ? Physical Exam General:??Alert, in no acute cardiopulmonary distress. Mental Status:??Tearful, otherwise??normal affect. Responding appropriately to questions. HEENT:??Normocephalic. Respiratory:??Clear to auscultation. No wheezing, rales or rhonchi. Cardiovascular:??Regular rate and rhythm, no murmurs, rubs, or gallops.?? Gastrointestinal:??Abdomen soft, nontender, nondistended, bowel tones present. No hepatosplenomegaly appreciated. Neurologic:??Cranial nerves II-XII grossly intact. Moves all extremities spontaneously. Extremities:??No edema. Musculoskeletal:??No gross deformities. Assessment/Plan Assessment:??Mr. Corwin Narvaez is a 53-year-old gentleman with medical history notable for polysubstance use (alcohol, cocaine, IV heroin), anxiety/depression complicated by prior suicide attempts/toxic ingestions, and seizures secondary to alcohol withdrawal who presented to the emergency department in setting of an intentional toxic ingestion with??crack cocaine followed by bupropion in an attempt to end his life. Nearly immediately regretted his decision and called emergency medical services.Now admitted to medical intermediate care for close monitoring.? Suicide attempt (T14.91XA) ?Grouped with??Anxiety and depression (F41.9),??Ingestion of toxic substance (T65.91XA),??Cocaine use (F14.90) ? Longstanding history of anxiety, depression, and substance use disorder presented with suicide attempt. -- Overdosed on bupropion intentionally after smoking crack cocaine. Now admitted for closer monitoring and psychiatric evaluation.? Plan: - Holding bupropion obviously - Holding QRS/QTc prolonging medications - Cardiac monitoring - EKG q4h, more closely if prolonging QRS - Seizure precautions - Addiction medicine consult - Psychiatry consult place - Constant skein bander - Poison control contacted?? - Admission to medical inter-care - Repeat labs in morning ?? Alcohol withdrawal (F10.939):?? At risk for alcohol withdrawal given history of alcohol use. ?? Plan: - CIWA protocol in place -- Lorazepam PRN -??Addiction medicine consult - Seizure precautions in place ?? Tobacco use (Z72.0):?? Counseled on cessation. Interested in NRT. ?? Plan: - Nicotine patches ordered ?? Quality Measures: VTE Prophylaxis:??Lovenox.?VTE Prophylaxis Assessment:??VTE Prophylaxis Ordered Tobacco Use Treatment:??Interested in NRT. Nicotine patches ordered. ?Tobacco Use Treatment Provided:??Cessation Medication Ordered Discharge Planning:??Likely to inpatient psych facility following medical clearance. Ongoing Medical Necessity:??Monitoring following toxic ingestion. Code Status:??Full Code.?Order Code Status:??Code Status Ordered Family: Deferred call to family/friends. Patient seen and evaluated 12/20/2023. ? Histories Allergies Allergies ?(Active and Proposed Allergies Only) PHENobarbital? (Severity: Moderate, Onset: 2019) ?Reactions: Vomiting ? Past Medical History/Problem List Active Problems(4) Alcohol abuse Closed fracture of mandible Obese class I Polysubstance abuse ? Past Surgical History Removal of arch bars: 09/23/16 ? Family History Mother: CAD - Coronary artery disease ? Social History Extensive alcohol use Ongoing tobacco use Crack cocaine use ?? Medications Home Medications Buprenorphine-Naloxone (Suboxone 8 mg-2 mg sublingual film)?See Instructions?2 film in morning/1 film in evening BuPROpion (buPROPion 150 mg/24 hours (XL) oral tablet, extended release)?1?tab(s)?150?Milligram?By Mouth?Every 24 hours BuPROpion (buPROPion 300 mg/24 hours (XL) oral tablet, extended release)?1?tab(s)?300?Milligram?By Mouth?Daily Clonidine (cloNIDine 0.1 mg oral tablet)?0.1?Milligram?1?tablet?By Mouth?2 times a day?as needed?Anxiety Docusate (docusate sodium 100 mg oral capsule)?100?Milligram?1?capsule?By Mouth?2times a day?as needed?for constipation Docusate-Senna (Stool Softener + Stimulant Laxative 50 mg-8.6 mg oral capsule)?1?capsule?By Mouth?Daily in PM?as needed?Constipation Gabapentin (gabapentin 800 mg oral tablet)?1?tab(s)?800?Milligram?By Mouth?3 times a day Lorazepam (LORazepam 1 mg oral tablet)?1?Milligram?By Mouth?Every 4 hours?as needed?Other?Give if 2 or more of the following objective signs of alcohol withdrawal: HR >110, SBP >140, siddhartha tremors, obvious diaphoresis. Melatonin (melatonin 5 mg oral tablet)?1?tab(s)?5?Milligram?By Mouth?Daily at bedtime?as needed?for insomnia Metronidazole Topical (metroNIDAZOLE 0.75% topical cream)?1?geetha?Topically?2 times a day Multivitamin (Multivitamin Tablet)?1?tab(s)?By Mouth?Daily Prazosin (prazosin 5 mg oral capsule)?5?Milligram?By Mouth?Daily at bedtime Quetiapine (QUEtiapine 100 mg oral tablet)?100?Milligram?1?tablet?By Mouth?Daily at bedtime Thiamine (thiamine 100 mg oral tablet)?100?Milligram?1?tablet?By Mouth?Daily Trazodone (Trazodone Tablet)?100?Milligram?By Mouth?Daily at bedtime Zolpidem (zolpidem 10 mg oral tablet)?1?tab(s)?10?Milligram?By Mouth?Daily at bedtime ? EKG study * Event Display: ECG 12-Lead Authored Date: [id number] Please click on pdf link to open report * Event Display: ECG 12-Lead Authored Date: Ventricular Rate: 67 BPM Atrial Rate: 67 BPM P-R Interval: 146 ms QRS Duration: 100 ms Q-T Interval: 430 ms QTC Calculation(Bazett): 454 ms P [place]ide: 29 degrees R Lakeside: 35 degrees T [place]ide: 35 degrees Normal sinus rhythm Normal ECG When compared with ECG of 21-DEC-2023 12:25, No significant change was found Confirmed by Justyn Beasley ([id number]) on 12/22/2023 10:25:45 AM [place]: Justyn Beasley * Event Display: ECG 12-Lead Authored Date: Please click on pdf link to open report * Event Display: ECG 12-Lead Authored Date: Ventricular Rate: 63 BPM Atrial Rate: 63 BPM P-R Interval: 138 ms QRS Duration: 94 ms Q-T Interval: 438 ms QTC Calculation(Bazett): 448 ms P [place]: 59 degrees R [place]ide: 14 degrees T [place]: 29 degrees Normal sinus rhythm Normal ECG When compared with ECG of 21-DEC-2023 08:01, MANUAL COMPARISON REQUIRED, DATA IS UNCONFIRMED Confirmed by JONO CAICEDO MD () on 12/21/2023 5:20:50 PM [place]: JONO CAICEDO MD * Event Display: ECG 12-Lead Authored Date: [id number] Please click on pdf link to open report * Event Display: ECG 12-Lead Authored Date: Ventricular Rate: 63 BPM Atrial Rate: 63 BPM P-R Interval: 142 ms QRS Duration: 94 ms Q-T Interval: 462 ms QTC Calculation(Bazett): 472 ms P [place]ide: 60 degrees R [place]ide: 11 degrees T [place]: 28 degrees Normal sinus rhythm Normal ECG When compared with ECG of 20-DEC-2023 21:58, No significant change was found Confirmed by JONO CAICEDO MD ([id number]) on 12/21/2023 5:20:55 PM [place]: JONO CAICEDO MD Cardiology * Event Display: Cardiac Rhythm Strips Authored Date: Hospital Progress note * Sonam Hogue MD: PERFORM Event Display: Progress Note Hospital Authored Date: Patient: ??CORWIN NARVAEZ ? Age:??53 Years?Sex:??Male?:??1970?? Subjective The patient was seen and evaluated at bedside.?? He was AAO x 4.?He stated that he does not knowwhat got over him and he cannot explain why he reacted the way he did this morning.?? He stated he was not feeling well and was upset that he was not going to get any Ativan, and explained??the CIWA scale is very subjective and felt the medical team did not understand how poorly he was feeling.?? Patient denied being an aggressive or violent person, and stated he did not intend to hurt anyone when he threw the table.?He expressed feeling embarrassed and remorseful of the morning's events.?? Patient stated he had been sober from drugs for 10 years and relapsed 1 month ago.?? He denied any st ressors, changes, or precipitating factors that led to his relapse, but expressed that he uses substances to treat his depression.?? He reported struggling with depression for a long time, having lowmood with guilt, hopelessness and helplessness.?? When asked about currently??having suicidal ideations, he stated I am unable to answer this??right now. ?? He denied having any homicidal ideation, intent, or plans.?? He stated that he has been hospitalized psychiatrically multiple times in the past and expressed that an inpatient admission will help me get my feet on the ground. Review of Systems All other systems reviewed and negative except as per HPI. Objective Vitals & Measurements T:??97.8?F?? TMIN:??97.6?F?? TMAX:??98.5?F?? HR:??64??(Peripheral)?? RR:??20?? BP:??144/81?? SpO2:??98%?? Mental Status Mental Status Examination ?? Appearance:??Appears as stated age Habitus: Normal, overweight, obese, thin Grooming:??Fair, unkempt, disheveled, neat Dress:??Appropriate, hospital gown Psychomotor Activity:??Normal, increased, decreased Abnormal movements: No tremors, stereotypy, posturing, motor tics Relationship to interviewer:??Cooperative, guarded, suspicious Eye Contact:??Good, fair, poor Speech: Clear, stuttering, slurred, dysarthric, accented?Quantity: Normal, increased, decreased ? Rate: Regular, slowed, rapid, pressured ? Volume: Normal, soft, loud Mood: Euthymic, neutral, elevated, depressed, euphoric, irritable, agitated Affect:??Mood-congruent, mood-incongruent, blunted, flat, constricted Thought Form:??Normal, logical, linear, goal-oriented, disorganized, loosening of associations, flight of ideas Delusions:??None, paranoid, somatic, bizarre Hallucinations:??Denied auditory and visual hallucinations Self-perception: No flashbacks, depersonalization, derealization, rituals, illusions Suicidal: Denied ideation, intent, or plan Homicidal:??Denied ideation, intent, or plan Cognitive Exam (Consciousness): Alert, lethargic, somnolent, fluctuating Orientation:??AAOx3 Memory: Intact, impaired, limited Concentration:??Intact, impaired, limited General Knowledge:??Average Abstraction: Functional, concrete Insight:??Fair, limited, poor, good Judgment:??Fair, limited, poor, good Impulse control: (At Present): Fair, limited, poor,??good ?(By History): Fair, limited, poor, good ?? Neuro Exam:?? - Patient is able to move all four extremities with full ROM - No rigidity??or stiffness in upper extremities - No??resting or intention tremor appreciated - No clonus - Gait unable to be assessed at this time Inpatient Medications Medications (21) Active SCHEDULED: (10) buprenorphine-naloxone 8 mg-2 mg Film (Suboxone 8 mg-2 mg Sublingual Film) ??2 film, Sublingual, Daily in AM buprenorphine-naloxone 8 mg-2 mg Film (Suboxone 8 mg-2 mg Sublingual Film) ??1 film, Sublingual, Daily at bedtime Enoxaparin 40 mg Inj (Enoxaparin Inj) ??40 mg 0.4 mL, Subcutaneous Injection, Daily Folic Acid 1 mg Tablet (Folic Acid Tablet) ??1 mg, By Mouth, Daily Multivitamin Therapeutic / Minerals Tablet (Multivit Therapeutic/Minerals Tablet) ??1 tablet, By Mouth, Daily NaCl 0.9% Flush 3ml (NaCL 0.9% Flush) ??3 mL, IV Push, Every 8 hours Nicotine 21 mg / 24 hour Patch (Nicotine Topical) ??21 mg, Topically, Daily Pyridoxine 50 mg Tablet (Pyridoxine Tablet) ??50 mg, By Mouth, Daily Remove Patch (Remove ??Patch) ??1 each, Topically, Daily Thiamine 100 mg Tablet (Thiamine Tablet) ??100 mg, By Mouth, 2 times a day CONTINUOUS: (0) PRN: (11) Acetaminophen 325 mg Tablet (Acetaminophen Tablet) ??650 mg, By Mouth, Every 4 hours Docusate Sodium 100 mg Capsule (Docusate Sodium Capsule) ??100 mg 1 capsule, By Mouth, 2 times a day Lorazepam 1 mg Tablet (Ativan Tablet) ??1 mg, By Mouth, Every 2 hours Lorazepam 2 mg Tablet (Ativan Tablet) ??2 mg, By Mouth, Every 2 hours Lorazepam 2 mg Tablet (LORazepam Tablet) ??2 mg, By Mouth, Every hour Melatonin 3 mg Tablet (Melatonin Tablet) ??6 mg, By Mouth, Daily at bedtime NaCl 0.9% Flush 3ml (NaCL 0.9% Flush) ??3 mL, IV Push, Every 8 hours Polyethylene Glycol 17 Gm Powder (MiraLax Powder) ??17 Gm 1 pack/packet, By Mouth, Daily Senna Tablet ??8.6 mg 1 tablet, By Mouth, 2 times a day Simethicone 80 mg Chewable Tablet (Simethicone Tablet) ??80 mg, Chew, 3 times a day Zolpidem 5 mg Tablet (zolpidem 5 mg oral tablet) ??10 mg, By Mouth, Daily at bedtime [place] Suicide Score [place] Suicide Assessment Ca (12/20/23) [place] Suicide Score Last Asked Ca (12/22/23) Suicidal Intent No Plan Past Month-CSSRS: No (12/20/23) Suicidal Thoughts Method Past Mon-CSSRS: Yes (12/20/23) Suicidal Thoughts Past Month - CSSRS: Yes (12/20/23) Suicidal Thoughts Since Last Asked-CSSRS: No (12/22/23) Suicide Behavior Lifetime - CSSRS: Yes (12/20/23) Suicide Behavior Past 3 Months - CSSRS: Yes (12/20/23) Suicide Behavior Since Last Asked-CSSRS: No (12/22/23) Suicide Intent w/Plan Past Month - CSSRS: Yes (12/20/23) What Would You Do? - CSSRS: Patient on constant skein bander , denies any thoughts of hurting himself during time of assessment. Scheduled Ambien given to promote rest and sleep. Cooperative with care. (12/21/23) Wish to be Past Month - CSSRS: Yes (12/20/23) Assessment/Plan Assessment: Patient is a 53-year-old male, single, homeless, with past psychiatric history of alcohol use disorder, cocaine use disorder, depression, anxiety, and PTSD, who presented to the hospital after a suicide attempt by overdosing on bupropion in the context of alcohol and crack/cocaine use.?? Psychiatrywas called to evaluate him on 12/20 for suicide attempt.?? Based on their evaluation, they recommended [facility] psychiatric hospitalization.?? Patient has been on the medical team being treated for alcohol withdrawal.?? Psychiatry was called today to reevaluate for inpatient psychiatric level of care and aggressive outburst this morning. ?? Patient expressed severely depressed mood, guilt, worthlessness, and shame for relapsing on drugs for the last month after 10 years of sobriety.?? He reported having history of significant trauma andPTSD, which likely contributed to his behavior and response to this morning's events, and poor coping strategies.?? Patient stated he does not know what got over him, and denied being an aggressive or violent person, and was remorseful of the events.?? He continues to have suicidal ideation and would benefit from [facility] psychiatric hospitalization for mood and medication stabilization. ?? Diagnoses: Major depressive disorder, recurrent episodes, in acute exacerbation PTSD Polysubstance use disorder ?? Recommendations/Plan: - Patient is not psychiatrically cleared - Patient will need [facility] psychiatric admission once medically cleared - Continue 1:1 sitter and suicide precautions - All psychotropics being??held for now due to overdose - Consider Thorazine 100 mg IM??q6h prn??for severe agitation ?? The case was discussed with attending, ??Cy. ?? Sonam Hogue Psychiatry Consultation & Liaison Fellow ?? * Stefania Kurtz RN: PERFORM, SIGN, VERIFY Event Display: Progress Note Hospital Authored Date: Patient: CORWIN NARVAEZ Age: 53 years Sex: Male : 1970 Associated Diagnoses: None Author: Stefania Kurtz RN Findings Evaluation Pt refusing all care. Pt violent and screaming. Pt threatening this RN and said ill do it again (referring to throwing a table at this keno writer / runner). Refusing vitals. Security at bedside. d/c to inpatient psych. . * Chloe Ramon RN: PERFORM, SIGN, VERIFY Event Display: Progress Note Hospital Authored Date: [id number] Patient: CORWIN NARVAEZ Age: 53 years Sex: Male : 1970 Associated Diagnoses: None Author: Chloe Ramon RN Findings Narrative/Incidental Behavioral Resource RN note ??? Met patient, case discussed with LELAND Winter as well as psychiatry via [employer] and chart reviewed to evaluate use of constant skein bander for suicidal ideation per suicide precautions. Code yellow response occurred at 8:19 am today due to physically aggressive behavior, threats to assault staff, and significant damage to hospital property. Per Psych Consult Note 12/20: ???Corwin Narvaez is a 53-year-old male with a previous history of depression, anxiety, PTSD, alcohol use disorder, cocaine use disorder, and previous overdoses who presented to [facility] on 12/19 after overdosing on bupropion, consuming alcohol, and using crack cocaine??? Corwin advocated for inpatient psychiatric hospitalization, and indicated that his last stay on [facility] was helpful. He would likely benefit from inpatient psychiatric hospitalization for further stabilization and reinforcement of coping skills.?? 12/22 ??? Upon arrival to [facility], Corwin could be observed attempting to pull down TV, break hospital equipment, and throw property around hospital room, threatening to leave AMA. Awaited security arrival prior to entering room. Pt. required 4 point restraints and IM medication for agitation. RECOMMENDATIONS: - See Behavioral Plan below Please call Behavior Resource team at [phone] or Webpage/[employer] with any questions or concerns: ???Behavioral Resource Team?? BEHAVIORAL PLAN FOR Javy NARVAEZ (Updated 12.23.23) SUICIDE PRECAUTIONS Continue 1:1 for safety, SI Follow Suicide Precautions Policy *NO PERSONAL BELONGINGS IN ROOM/CELL PHONE/COMMISSIONER OF RELOCATION SERVICES etc. while on Suicide Precautions Constant Sales Correspondence Clerk order Suicide Precautions order Psych Consult order Paper tray set up for dietary order Daily Beaver Dams Suicide Severity Screenings ??? by RN Remain vigilant about environmental safety ENVIRONMENT -Continue constant skein bander as needed; 1:1 staff should sit OUTSIDE OF ROOM -Please remain vigilant about environmental safety (room stripped of all medical equipment note in use, cords, wires, sharps, etc. on 12/22) -Two staff approach for care tasks requiring proximity if pt is agitated - Do not hesitate to call/page overhead [facility] (4-HELP) for immediate security/clinical loading rack supervisor/behavioral resource team assistance - Maintain safe physical distance from pt whenever possible - Postpone care tasks requiring close proximity if patient is agitated (i.e. vital signs) - Have meal trays delivered to nurses??? desk - inspect and remove any silverware, hot liquids, other items that could be used in assault - Clear room of any objects that can be used to hurt self or others when agitated - Bring additional staff into room as needed when pt agitated; call security for standby assist fordirect patient care - Please ensure that phlebotomists and other providers are aware of any items that they bring into the room and ensure the room is swept after any procedures. - Consider changing diet order to finger foods only, no hot liquids to prevent assault with plasticware or hot beverages MEDICATIONS - It is critical to monitor closely for signs of anxiety, paranoia, delusions ??? offer PRN meds proactively before pt escalates - Allow extra time for education and reassurance about medications -May help to check in with pt early in shift to let her/him know what meds are available - encourage pt to request PRN medication for racing thoughts, anxiety, restlessness, etc. - Pain or withdrawal may be contributing to irritability - please monitor and medicate as ordered - If pt has not responded to de-escalation, distraction, redirection, or PO meds, may need to call security to bedside and administer IM meds. Agitation in this pt may be indicative of imminent harm to self or others, making emergency IM meds appropriate COMMUNICATION - Understand that Behavior is Communication: Most communication occurs beyond the words we use. Look for signs of anxiety in body language, tone and aneta. Understand that crisis behavior reflects a need and consider what it is the person might want (sense of control, a cigarette, to sleep, to belistened to, etc.?) - Use Limit Setting ??? In direct, simple language, identify unacceptable behaviors and tell pt to stop: ???Please stop shouting?? , ???Walk to your room now?? - Avoid Power Struggles - Challenging or exercising authority over a person can escalate negative behaviors. If pt is challenging or arguing, he/she is unlikely to take in what you are trying to teach. - Deliver your message calmly and walk away. Return when pt is calm. - If pt unable to rephrase calmly, leave room and let him know you will return when he is calm. - Set clear limits and behavioral expectations. Use dialogue that is clear and short and precise. Use step by step directions when redirecting or requesting certain tasks. BEHAVIORAL AND MEDICAL TEAM INTERVENTIONS - Encourage patient to practice personal care and hygiene such as sitting up for meals, brushing teeth and washing face at least daily. - Help pt identify things that help them feel calm - for example music, deep breathing, taking a shower, calling family, coloring - Offer generous praise for use of coping skills and for requests for PRN meds when having symptoms - Once pt exhibiting signs of agitation, DO NOT postpone intervention hoping it will subside or because it will upset him/her - Consider rotating staff if RNs/manager trade marketing/ constant companions are developing negative reactions to patient behaviors. - If refusing care, the team should evaluate risks vs benefits of admission and if deemed to have capacity should be allowed to leave AMA with security present. - Assist pt to tolerate not having needs fulfilled immediately. Administrative Services Assistant him to use deep breathing or distracting activity to cope with frustration. . Consult note * Emma Gonzalez: MODIFY, SIGN, PERFORM, SIGN, VERIFY Event Display: Consultation Note Authored Date: Patient: CORWIN NARVAEZ Age: 53 years Sex: Male : 1970 Associated Diagnoses: None Author: Emma Gonzalez Addiction med consult requested for heavy ETOH use. Addiction submarine advisory team watch officer met with pt to see what??the pt??might be interested in pursuing, as interventions we have to offer are voluntary. This includes medication for ETOH cravings, and referrals for supports in the community such as treatment programs, therapy, and recovery coaching. At this time, pt only interested in referrals for treatment programs, therapy, recovery coaching. Not interested in medication. These referrals will becompleted - see addiction coordinator note under consults tab for details. Pt will be provided withreferral info as well. If/when??pt is medically cleared, please let us know, Mon to Fri, and we can look into treatment program bed availability. Otherwise pt can follow up on program availability on their own, see addiction coordinator note under consults tab for resource details (please copy into d/c summary). Pt should have this information as well. * Nicolasa Polanco: SIGN, VERIFY, PERFORM Event Display: Consultation Note Authored Date: Patient: CORWIN NARVAEZ Age: 53 years Sex: Male : 1970 Associated Diagnoses: None Author: Nicolasa Polanco This keno writer / runner met with patient this afternoon to discuss recovery resources. Patient is interested ininpatient treatment programs, therapy ,and recovery coaching. Patient has been referred to inpatient facilities listed below. Once patient is medically cleared this keno writer / runner will follow up with bed availability. No additional recovery resources were needed at this time. Addiction Consultation Team [address] [place] [id number] Patient: Corwin Narvaez (: 1970) Date: 12/22/2023 You have been referred to the following programs: You need to call daily/weekly to check for bed availability [facility] ([facility]) [phone] [facility] [address] [facility] [address] [facility] 170 [facility] [address] [place] [address] [facility] [address] [facility] 155 [facility] [address] [facility] Therapy [address] [facility] [address] Walk in intake Mon-Fri from 8:00am-8:00pm. Bring an ID and discharge paperwork to the intake. A referral has been made to [facility] Technical Account Manager Program on your behalf. A staff member will notify you after discharge to schedule a day/time for an intake. * Melecio Wick DO: PERFORM, MODIFY, MODIFY, MODIFY, MODIFY, MODIFY, MODIFY Event Display: Consultation Note Authored Date: Patient: ??CORWIN NARVAEZ ? Age:??53 Years?Sex:??Male?:??1970?? Chief Complaint Bupropion Overdose Reason for Consultation Overdose/ongoing depression History of Present Illness Referring Physician:??Dr. Erasmo Moore ?? Consulting Physician:??Dr. Daly and Dr. Wick ?? Source of information: Per patient and [facility] records ?? Corwin??Brice is a 53-year-old male with a previous history of??depression, anxiety, PTSD,??alcohol use disorder, cocaine use disorder, and previous??overdoses??who??[facility]ed to[facility] on [facility] after overdosing on bupropion, consuming alcohol, and using crack cocaine. ??Psychiat ry consult team was asked to??evaluate him??due to this presentation.?? Corwin was encountered laying in his bed??on [address]?? He was A&O x 4.?? He explained that he had been feeling a lot of things building up ??related to previous trauma??and PTSD,, and acted spontaneously on his thoughts.??He indicated he had started getting better ??with managing these issues and had been sober??for 10 months.?? He indicated he has outpatient support??through [facility]??where he meets with a therapist.?? He takes multiple psychiatric medications that include??bupropion (which has been stopped??for this admission), Ativan,??Ambien for sleep, Suboxone, trazodone,??gabapentin, and prazosin.?? He has??been psychiatrically hospitalized multiple times in the past??and believes being??hospitalized again??would be beneficial for him.?He reported multiple symptoms consistent with depression, including??depressed mood, anhedonia, poor sleep, feelings of hopelessness, low energy, poor concentration,??andpoor appetite. ??He reported ongoing struggles with anxiety??that includes??behavior such as increased fidgeting,??and self-isolation. ??He reports having headaches when he feels anxious.?With regards to PTSD,??he explained that he often feels he is in a fighter flight mode . ??He reports nightm mandeep,??flashbacks,??and avoidance of reminders of past trauma. ??He denied manic or psychotic symptoms.?He reported??that he does not have suicidal thoughts at this time, but that can change throughout the course of the day.?? He denied HI and AVH. ? Past Psychiatric History:??Ports previous diagnoses of depression, anxiety,??PTSD ?? Past Hospitalizations:??Patient reports he has had multiple previous psychiatric hospitalizations.?? Per chart review, he??was discharged from [facility] to [facility] in December 2022. ?? Past Suicidality/ Self-Injurious Behavior (SIB):??Patient has a history of overdoses ?? Treatment Providers:??Has therapist available through program [facility] ?? Substance Use: Tobacco -reports smoking 1 pack a day on and off since he was 27 years old.?? Reports he is consistently vaping??now. EtOH -reports he had been 8 8-1/2 months sober.?? Prior to this period of sobriety,??he was drinking a quart??of vodka??plus a sixpack of beer a day. Illicit drugs -ports he had previously been using cocaine twice a week??before his most recent period of sobriety.?? Denied marijuana, heroin, or other illicit substance use. ?? Social History Living Situation -has services through [facility]. Friends/Family/Support -reports he has no family in the area. Education -reports he is hoping to get his GED Trauma -reports history of trauma ?? Family Psychiatric History:??Denies Review of Systems Pertinent positives as listed above in HPI. ??Otherwise, remainder of 10-point review of systems negative. Physical Exam Vitals & Measurements T:??98.3?F?? TMIN:??97.3?F?? TMAX:??98.3?F?? HR:??64??(Peripheral)?? RR:??12?? BP:??124/78?? SpO2:??98%?? WT:??104.5??kg?? Mental Status Exam Appearance: This is a male dressed in hospital gown,??NAD, appears stated age Eye contact: appropriate Attitude: cooperative with pleasant demeanor?? Motor Activity:??no tremors, no psychomotor agitation or??slowing Mood: Stable Affect: Constricted Speech: normal rate, tone and prosody?? Perception: No delusions, AVH, paranoia, or abnormal thought content elicited. Orientation: intact ? Memory: intact Thought Process: Linear and goal directed Thought Content:??Relevant to conversation Insight: Poor Judgment: Poor Suicidality/Self-destructive Behavior: denies SI/SIB Homicidality/Violence: denies ?? MSK Exam:??able to move all 4 extremities spontaneously. No rigidity noted.?? Assessment/Plan Corwin??Brice is a 53-year-old male with a previous history of??depression, anxiety, PTSD,??alcoholuse disorder, cocaine use disorder, and previous??overdoses??who??presented to??[facility] on 12/19 after overdosing on bupropion, consuming alcohol, and using crack cocaine. ??Psychiatryconsult team was asked to??evaluate him??due to this presentation.?Corwin??indicated that??this most recent overdose was not planned??but rather??the??result??of ongoing feelings of depression??related to trauma and PTSD building up over time.?? He reported multiple symptoms consistent with depression that include??depressed mood, anhedonia, poor sleep, feelings of hopelessness, low energy,??poor concentration, and poor appetite.?? He described??physical??symptoms and behaviors??consistent with anxiety.?? He also reported history of trauma that has resulted in having symptoms consistent with PTSD that include hypervigilance, flashbacks, nightmares, and avoidance of reminders.?? Corwin??advocated for inpatient psychiatric hospitalization,??and indicated that his??last stay on [facility]??was helpful.?? He would likely benefit from inpatient psychiatric hospitalization for further stabilization??and reinforcement of coping skills. ?? DSM Diagnosis Major depressive disorder, severe, recurrent JOSE PTSD, per history History of Alcohol Use Disorder History of Cocaine Use disorder ?? Recommendations -Patient advocated for inpatient psychiatric hospitalization, and he would likely benefit from thismode of treatment. Please reach out to the psychiatry consult team to start inpatient psych bed search when he is medically cleared. Patient requested to go to [facility]. -Patient cannot leave AMA without clearance from psych. Continue with sitter. ?? Case and plan discussed with attending Dr. Leodan Daly ?? Melecio Wick, DO PGY3 Pager # [phone] Problem List/Past Medical History Ongoing Alcohol abuse Closed fracture of mandible Obese class I Polysubstance abuse Procedure/Surgical History ???Removal of arch bars (09/23/2016) Medications Inpatient Acetaminophen Tablet, 650 mg, By Mouth, Every 4 hours, PRN Ativan Tablet, 1 mg, By Mouth, Every 2 hours, PRN Ativan Tablet, 2 mg, By Mouth, Every 2 hours, PRN Docusate Sodium Capsule, 100 mg= 1 capsule, By Mouth, 2 times a day, PRN Enoxaparin Inj, 40 mg= 0.4 mL, Subcutaneous Injection, Daily Folic Acid Tablet, 1 mg, By Mouth, Daily LORazepam Tablet, 2 mg, By Mouth, Every hour, PRN Melatonin Tablet, 6 mg, By Mouth, Daily at bedtime, PRN MiraLax Powder, 17 Gm= 1 pack/packet, By Mouth, Daily, PRN Multivit Therapeutic/Minerals Tablet, 1 tablet, By Mouth, Daily NaCL 0.9% Flush, 3 mL, IV Push, Every 8 hours NaCL 0.9% Flush, 3 mL, IV Push, Every 8 hours, PRN Nicotine Topical, 21 mg, Topically, Daily Pyridoxine Tablet, 50 mg, By Mouth, Daily Remove Patch, 1 each, Topically, Daily Senna Tablet, 8.6 mg= 1 tablet, By Mouth, 2 times a day, PRN Simethicone Tablet, 80 mg, Chew, 3 times a day, PRN Suboxone 8 mg-2 mg Sublingual Film, 2 film, Sublingual, Daily in AM Suboxone 8 mg-2 mg Sublingual Film, 1 film, Sublingual, Daily at bedtime Thiamine Tablet, 100 mg, By Mouth, 2 times a day zolpidem 5 mg oral tablet, 10 mg, By Mouth, Daily at bedtime, PRN Home buPROPion 150 mg/24 hours (XL) oral tablet, extended release, 150 mg= 1 tablet, By Mouth, Every 24 hours buPROPion 300 mg/24 hours (XL) oral tablet, extended release, 300 mg= 1 tablet, By Mouth, Daily cloNIDine 0.1 mg oral tablet, 0.1 mg= 1 tablet, By Mouth, 2 times a day, PRN docusate sodium 100 mg oral capsule, 100 mg= 1 capsule, By Mouth, 2 times a day, PRN gabapentin 800 mg oral tablet, 800 mg= 1 tablet, By Mouth, 3 times a day LORazepam 1 mg oral tablet, 1 mg, By Mouth, Every 4 hours, PRN melatonin 5 mg oral tablet, 5 mg= 1 tablet, By Mouth, Daily at bedtime, PRN metroNIDAZOLE 0.75% topical cream, 1 application, Topically, 2 times a day Multivitamin Tablet, 1 tablet, By Mouth, Daily prazosin 5 mg oral capsule, 5 mg, By Mouth, Daily at bedtime QUEtiapine 100 mg oral tablet, 100 mg= 1 tablet, By Mouth, Daily at bedtime Stool Softener + Stimulant Laxative 50 mg-8.6 mg oral capsule, 1 capsule, By Mouth, Daily in PM, PRN Suboxone 8 mg-2 mg sublingual film, See Instructions thiamine 100 mg oral tablet, 100 mg= 1 tablet, By Mouth, Daily Trazodone Tablet, 100 mg, By Mouth, Daily at bedtime zolpidem 10 mg oral tablet, 10 mg= 1 tablet, By Mouth, Daily at bedtime Allergies PHENobarbital??(Vomiting) Social History Alcohol Use: Current. Frequency: Daily. Type: Beer, Wine, Liquor. Average drinks per day: 20. 25 drinks/episode maximum. Date Last Used: 07/16/21. Previous treatment: Alcoholics Anonymous, Inpatient, Outpatient. Alcohol use interferes with work or home: Yes. Employment/School Status: Unemployed. 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 Home/Environment Living situation: Homeless/[facility]. Other: Raised in the [facility] by two parents as an only child. [...] inactivated 06/09/2018 Recorded tetanus/diphtheria/pertussis, acel(Tdap) 07/06/2016 Given * Malika CAMPOVERDE, Leodan Veloz: PERFORM Event Display: Consultation Note Authored Date: [id number] I have seen and evaluated this patient??on the date of service and discussed the case and its management??with??the resident physician. ??I agree with the assessment and plan as documented below.? Note * Erasmo Moore DO: PERFORM Event Display: Discharge/Transfer Note Hospital Authored Date: [id number] Patient: ??CORWIN NARVAEZ ? Age:??53 Years?Sex:??Male?:??1970?? Patient Information Discharge Location: B Primary Care Physician: Caitlyn Greenberg NP Admit Date/Time: 12/20/23 19:38 Discharge Diagnosis Ingestion of toxic substance (T65.91XA) Suicide attempt (T14.91XA) Anxiety and depression (F41.9) Alcohol withdrawal (F10.939) Tobacco use (Z72.0) Cocaine use (F14.90) Allergies Allergies ?(Active and Proposed Allergies Only) PHENobarbital? (Severity: Moderate, Onset: 2020) ?Reactions: Vomiting ? Hospital Course Corwin is a 53-year-old gentleman with a past medical history notable for polysubstance abuse, anxiety/depression complicated by prior suicide attempt with toxic ingestion and seizure secondary to alcohol withdrawal presenting the emergency department setting of cocaine use and intentional overdosewith bupropion.?? Patient noted to be hemodynamically stable on presentation and laboratories to include CBC and CMP were unremarkable.?? Patient was noted to be positive for cocaine, benzodiazepinesand amphetamines as well as had a positive ethanol level on presentation at 37.?? Ultimately poisoncontrol was contacted secondary to his toxic ingestion and recommended for admission to intermediate care unit for close telemetry monitoring and serial EKGs which showed improvement in his QRS over course of hospitalization.?? He received Ativan for treatment of alcohol withdrawal but when patientno longer was scoring on withdrawal scale anymore he became agitated that he was no longer receiving Ativan dosing.?? He was informed that dosing is given as by the protocol and given he was not symptomatic of withdrawal he was not requiring benzodiazepines.?? I was not here at this time but I was told patient's response??to this was I will do something to get??josé and then proceeded to destroy his room by tossing bedside table as well as 3 drawer bedside cabinet through door and attempting to rip the television off the wall.?? Fortunately no one was injured in this event but items were thrown at staff and security was paged [facility]?? He was administered IM medications as he had ripped out his IV during this altercation and psychiatry team was contacted.?? Ultimately given patient was no longer in acute alcohol withdrawal and was deemed still to need inpatient psychiatric services he was accepted as transfer to the inpatient psychiatric unit and will have continued care for his agitation under their guidance. ?? Suicide attempt (T14.91XA) ?Grouped with??Anxiety and depression (F41.9),??Ingestion of toxic substance (T65.91XA),??Cocaine use (F14.90) Patient was a longstanding history of anxiety and depression and is??substance use disorder and previous suicide attempts. ??Apparently he had??been smoking crack cocaine when he came up with the idea to??intentionally overdose on bupropion.?? He took??multiple pills although he is unable to tell exactly what dose he did take??and then immediately regretted this and ultimately presented to the hospital for further evaluation. ??Poison control was contacted and ultimately recommendations were??made for at least 24 hours of close observation with EKGs for monitoring of QRS.?? Patient's laboratories are??otherwise unremarkable. ??Patient??admits to only crack cocaine as well as alcohol use and denies any other illicit substances.?? Of note patient's??urine tox screen positive for cocaine, benzodiazepines and amphetamines. Patient without any concerning features on the EKGs after 24 hours and no longer required??hospitalization for monitoring of??overdose Patient was evaluated by psychiatry team and??was deemed to require inpatient psychiatric hospitalization and not to be able to leave AMA as well as should continue constant skein bander On 12/23/2023??patient became extremely agitated as described above destroying his room??and threatening staff??and ultimately is now being taken to inpatient psychiatric unit ??? Inpatient psych placement ??? Psychiatry team to adjust medications ?? Alcohol withdrawal (F10.939):?? Patient with a significant history of alcohol use. ??He states he drinks a??quart of hard alcohol as well as a sixpack of beer and then what ever else he can get his hands on daily. Last drink??on 12/19??prior to presentation to the hospital Patient endorses significant alcohol withdrawal before and has required ICU hospitalization??from previous withdrawals??as well as has had??seizures induced by withdrawal Patient however is no longer scoring on CIWA scale and not receiving Ativan which triggered the event above ???Discontinue scheduled Ativan and CIWA scoring ?? Tobacco use (Z72.0):??Counseled on cessation. Nicotine patches ordered ?? Objective Vital Signs?? Temperature: 97.8 DegF (12/23/23 08:13:00) Temperature Route: Oral (12/23/23 06:28:00) Pulse Rate: 64 bpm (12/23/23 08:13:00) Heart Rate Monitored: 61 bpm (12/23/23 00:00:00) Respiratory Rate: 20 br/min (12/23/23 08:13:00) Systolic Blood Pressure:??144 mm Hg??High (12/23/23 08:13:00) Diastolic Blood Pressure: 81 mm Hg (12/23/23 08:13:00) Blood pressure sites: Arm, left (12/23/23 06:28:00) Mean Arterial Pressure: 96 mm Hg (12/23/23 06:28:00) Pulse Pressure: 35 mm Hg (12/23/23 06:28:00) Oxygen Saturation: 98 % (12/23/23 08:00:00) Mode of Delivery (Oxygen): Room air (12/23/23 06:28:00) Early Warning Score: 2 (12/23/23 10:51:16) ? . Physical Exam Patient agitated and 4 point restraints. ??He??is not cooperative??with??instructions or physical examination and for safety??as well as patient refusing no further physical exam was performed besides visual inspection. Results Discharge Labs BLOOD COUNT & DIFF WBC 4.5 k/mm3 ()?? 12/22/2023 09:23 RBC 4.51 m/mm3 (Low)?? 12/22/2023 09:23 Hgb 13.4 Gm/dL (Low)?? 12/22/2023 09:23 Hct 40.7 % ()?? 12/22/2023 09:23 MCV 90.2 femtoliters ()?? 12/22/2023 09:23 MCH 29.7 pg ()?? 12/22/2023 09:23 MCHC 32.9 g/dL (Low)?? 12/22/2023 09:23 Platelet Count 238 k/mm3 ()?? 12/22/2023 09:23 RDW-SD 43.1 femtoliters ()?? 12/22/2023 09:23 MPV 10.0 femtoliters ()?? 12/22/2023 09:23 Nucleated RBC (Automated) 0.0 #/100 WBC'S ()?? 12/22/2023 09:23 Abs. NRBC 0.0 k/mm3 ()?? 12/22/2023 09:23 Abs. Neut 3.3 k/mm3 ()?? 12/21/2023 08:46 Abs. Lymph 1.1 k/mm3 ()?? 12/21/2023 08:46 Abs. [place] 0.5 k/mm3 ()?? 12/21/2023 08:46 Abs. Eo 0.2 k/mm3 ()?? 12/21/2023 08:46 Abs. Baso 0.0 k/mm3 ()?? 12/21/2023 08:46 Neut % 65.2 % ()?? 12/21/2023 08:46 Lymph % 20.9 % ()?? 12/21/2023 08:46 [place] % 8.8 % ()?? 12/21/2023 08:46 Eos % 4.1 % ()?? 12/21/2023 08:46 Baso % 0.8 % ()?? 12/21/2023 08:46 Imm Gran 0.2 % ()?? 12/21/2023 08:46 Abs. Imm Gran 0.0 k/mm3 ()?? 12/21/2023 08:46 ?? CHEM GENERAL Sodium 140 mmol/L ()?? 12/22/2023 09:33 Potassium 4.3 mmol/L ()?? 12/22/2023 09:33 Chloride 105 mmol/L ()?? 12/22/2023 09:33 Bicarbonate Level 24 mmol/L ()?? 12/22/2023 09:33 Anion Gap 11 ()?? 12/22/2023 09:33 Glucose Level 122 mg/dL (High)?? 12/22/2023 09:33 Glucose, POC 81 mg/dL ()?? 12/20/2023 13:56 BUN 8 mg/dL ()?? 12/22/2023 09:33 Creatinine-Blood 0.87 mg/dL ()?? 12/22/2023 09:33 Estimated GFR Creatinine 103 ML/MIN/1.73 M2 ()?? 12/22/2023 09:33 Calcium 9.2 mg/dL ()?? 12/22/2023 09:33 Magnesium 2.4 mg/dL (High)?? 12/21/2023 08:46 Protein, Total 6.5 Gm/dL ()?? 12/22/2023 09:33 Albumin 4.2 Gm/dL ()?? 12/22/2023 09:33 AG Ratio 1.8 ()?? 12/22/2023 09:33 Alkaline Phosphatase 74 units/L ()?? 12/22/2023 09:33 AST (SGOT) 15 units/L ()?? 12/22/2023 09:33 ALT (SGPT) 17 units/L ()?? 12/22/2023 09:33 Bilirubin, Total 0.4 mg/dL ()?? 12/22/2023 09:33 ? ENDOCRINE/TUMOR MARKER TSH 1.08 uIU/mL ()?? 12/20/2023 14:13 ? TOXICOLOGY/TDM Ethanol, Serum or Plasma 37 mg/dL (Abnormal)?? 12/20/2023 14:13 Salicylate Level <0.3 mg/dL (Low)?? 12/20/2023 14:13 Barbiturate Screen, Urine NONE DETECTED ()?? 12/20/2023 13:52 Cannabinoid Screen, Urine NONE DETECTED ()?? 12/20/2023 13:52 Cocaine Metabolite Screen, Urine POSITIVE (Abnormal)?? 12/20/2023 13:52 Benzodiazepine Screen, Urine POSITIVE (Abnormal)?? 12/20/2023 13:52 Amphetamine Screen, Urine POSITIVE (Abnormal)?? 12/20/2023 13:52 Opiate Screen, Urine NONE DETECTED ()?? 12/20/2023 13:52 Acetaminophen Level <5 mg/L (Low)?? 12/20/2023 14:13 ? URINE OTHER Est Creatinine Clearance 111.70 mL/min ()?? 12/22/2023 10:42 ? VIROLOGY COVID-19 by RT-PCR NEGATIVE ()?? 12/20/2023 13:58 ? Microbiology ?? COVID-19 (Novel Coronavirus), Rapid PCR?? Completed?? Source: Nasal Body Site: Nose Collected Dt/Tm: 12/20/2023 12:56 Last Updated Dt/Tm: 12/20/2023 16:32 ? 34 minutes spent on discharge * Stefania Kurtz RN: PERFORM Event Display: Patient Education/Instruction Authored Date: [id number] Inpatient Adult Discharge Instructions. [place] [id number] Name: CORWIN NARVAEZ : 1970?? Visit: 12/20/2023 19:38?? Current Date: 12/23/2023 12:22 ?? Account: [id number]?? Inpatient Adult Discharge Instructions We would like [...] and their families. Surveys are administered by [employer] ?? If further treatment with your primary care physician or another doctor is recommended, it is important for you to keep the appointment. Call your primary care physician or return to the Emergency Department immediately if your condition worsens, fails to improve, or new symptoms develop. If you need to find a doctor, you can call [facility] Link for a referral at [phone] or toll free at [phone]) or log in to [email or web address].. ?? [facility], in keeping with [facility] guidance, no longer requires face [...] a health care geetha of your choosing. [employer] is a website that allows you to securely view your medical information including your hospital discharge summary, office visit summaries, medications and follow-up visits. You can also request appointments, renew medications, and request access to your medical information using a health care geetha of your choosing, or just ask a question. You can enroll at [email or web address] or register during your next office visit. You have been discharged from [facility], Patient Care Unit: D6B??. If you have any questions regarding these instructions, including results of studies pending, afteryou leave, please call us and we will be happy to assist you 16/12. [facility] Your Care Team Attending Physician Erasmo Moore DO?? Consulting Providers Erasmo Moore DO?? Discharging Providers Erasmo Moore DO Reason for Your Visit Bupropion Overdose?? Your Diagnosis Alcohol withdrawal Anxiety and depression Cocaine use General medical Ingestion of toxic substance Suicide attempt Tobacco use Tests Performed Below is a partial list of the tests performed during your hospitalization. You may have had other tests and procedures not included in this list. Please discuss all test results with your provider. Acetaminophen Level Alcohol Level Amphetamine Urine Screen Aspirin Level Barbiturate Urine Screen Benzodiazepine Urine Screen Cannabinoid Urine Screen CBC CBC w/ Differential Cocaine Urine Screen Comprehensive Metabolic Panel COVID-19 (Novel Coronavirus), Rapid PCR GLUCOSE POC Opiate Screen Urine TSH with T4 Reflex (Adults Only) XR Chest 2 Views Frontal and Lat Acetaminophen Level?? Amphetamine Urine Screen?? BUN?? Barbiturate Urine Screen?? Benzodiazepine Urine Screen?? CBC?? CBC w/ Differential?? COVID-19 (Novel Coronavirus), Rapid PCR?? Cannabinoid Urine Screen?? Cocaine Urine Screen?? Comprehensive Metabolic Panel?? Creatinine?? Electrolytes?? Ethanol Level (Alcohol Level)?? Glucose POC?? Magnesium Level?? Opiate Screen Urine?? Phosphorus Level?? Salicylate Level (Aspirin Level)?? TSH with T4 Reflex (Adults Only)?? Chest 2 Views Frontal and Lat (XR Chest 2 Views Frontal and Lat)?? Primary Care Provider Dionicio OLSEN, Caitlyn? Advance Directive Health Care Proxy on File No Patient refuses to discuss Discharge Vitals Temperature: 97.8 DegF Height: 186 cm Pulse Rate: 64 bpm Weight: 104.5 kg Respiratory Rate: 20 br/min Body Mass Index:??30.21 kg/m2??Critical Systolic Blood Pressure:??144 mm Hg??High Body surface area: 2.32 Diastolic Blood Pressure: 81 mm Hg ?? Oxygen Saturation: 98 % ?? Studies Pending All studies ordered during this hospital stay have been completed unless listed below. Please discuss all pending results with your provider listed above in these instructions. ?? BUN?? Creatinine?? Electrolytes?? Magnesium Level?? Phosphorus Level?? What to do next Instructions From Your Doctor ?? Orders? 12/23/23 12:17:00 EDT?? Discharge Medications CORWIN NARVAEZ :1970 Visit Date:12/20/2023 Medications: Please continue your medications until treatment is completed or stopped by your provider. Medications not listed below should be discontinued. Discuss any questions related to medications with your provider. What How Much When Instructions Next Dose Changed Gabapentin (gabapentin 800 mg oral tablet) 1 tab(s) Oral 3 times a day pt went to psych unit Changed Quetiapine (QUEtiapine 100 mg oral tablet) 1 tab(s) Oral Daily at Bedtime pt went to psych unit Unchanged Buprenorphine-Naloxone (Suboxone 8 mg-2 mg sublingual film) See instructions 2 film in morning/ 1 film in evening ?? pt went to psych unit Unchanged Clonidine (cloNIDine 0.1 mg oral tablet) 1 tab(s) Oral Twice a day as needed for Anxiety pt went to psych unit Unchanged Docusate (docusate sodium 100 mg oral capsule) 1 capsule Oral Twice a day as needed for for constipation pt went to psych unit Unchanged Melatonin (melatonin 5 mg oral tablet) 1 tab(s) Oral Daily at Bedtime as needed for for insomnia pt went to psych unit Unchanged Prazosin (prazosin 5 mg oral capsule) 5 Milligram Oral Daily at Bedtime pt went to psych unit Unchanged Thiamine (thiamine 100 mg oral tablet) 1 tab(s) Oral Daily pt went to psych unit Unchanged Trazodone (Trazodone Tablet) 100 Milligram Oral Daily at Bedtime pt went to psych unit Unchanged Zolpidem (zolpidem 10 mg oral tablet) 1 tab(s) Oral Daily at Bedtime pt went to psych unit ?? What How Much When Comments Stop Taking Acetaminophen (acetaminophen 650 mg oral tablet, extended release) 2 tab(s) Oral Every 8 hours as needed for as needed for pain Stop Taking BuPROpion (buPROPion 150 mg/ 24 hours (XL) oral tablet, extended release) 1 tab(s) Oral Every 24 hours Stop Taking BuPROpion (buPROPion 300 mg/ 24 hours (XL) oral tablet, extended release) 1 tab(s) Oral Daily Stop Taking Docusate-Senna (Stool Softener + Stimulant Laxative 50 mg-8.6 mg oral capsule) 1 capsule Oral Daily in PM as needed for Constipation Stop Taking Folic Acid (folic acid 1 mg oral tablet) 1 Milligram Oral Daily Stop Taking Lorazepam (LORazepam 1 mg oral tablet) 1 Milligram Oral Every 4 hours as needed for Other Give if 2 or more of the following objective signs of alcohol withdrawal: HR >110, SBP >140, siddhartha tremors, obvious diaphoresis. ?? Stop Taking Metronidazole Topical (metroNIDAZOLE 0.75% topical cream) 1 geetha Topically Twice a day Stop Taking Multivitamin (Multivitamin Tablet) 1 tab(s) Oral Daily Stop Taking Pyridoxine (Pyridoxine Tablet) 50 Milligram Oral Daily Prescription Given During Visit No new medications prescribed at time of discharge.?? Laboratory Results Below is a partial list of the most recent Laboratory test results done prior to this discharge. You may have had other tests and procedures not included in this list. Please discuss all test resultswith your provider. Est Creatinine Clearance - 111.70 mL/min (12/22/2023) Acetaminophen Level (12/20/2023) ? ?Acetaminophen Level - <5 mg/L Alcohol Level (12/20/2023) ???Ethanol, Serum or Plasma - 37 mg/dL Amphetamine Urine Screen (12/20/2023) ???Amphetamine Screen, Urine - POSITIVE Aspirin Level (12/20/2023) ? ?Salicylate Level - <0.3 mg/dL Barbiturate Urine Screen (12/20/2023) ???Barbiturate Screen, Urine - NONE DETECTED Benzodiazepine Urine Screen (12/20/2023) ???Benzodiazepine Screen, Urine - POSITIVE Cannabinoid Urine Screen (12/20/2023) ???Cannabinoid Screen, Urine - NONE DETECTED CBC (12/22/2023) ???WBC - 4.5 k/mm3???RBC - 4.51 m/mm3???Hgb - 13.4 Gm/dL???Hct - 40.7 %???MCV - 90.2 femtoliters???MCH - 29.7 pg???MCHC - 32.9 g/dL???Platelet Count - 238 k/mm3???RDW-SD - 43.1 femtoliters???MPV - 10.0 femtoliters???Nucleated RBC (Automated) - 0.0 #/100 WBC'S???Abs. NRBC - 0.0 k/mm3 CBC w/ Differential (12/21/2023) ???WBC - 5.1 k/mm3???RBC - 4.07 m/mm3???Hgb - 12.2 Gm/dL???Hct - 36.5 %???MCV - 89.7 femtoliters???MCH - 30.0 pg???MCHC - 33.4 g/dL???Platelet Count - 206 k/mm3???RDW-SD - 43.8 femtoliters???MPV - 10.1 femtoliters???Nucleated RBC (Automated) - 0.0 #/100 WBC'S???Abs. NRBC - 0.0 k/mm3???Abs. Neut - 3.3 k/mm3???Abs. Lymph - 1.1 k/mm3???Abs. [place] - 0.5 k/mm3???Abs. Eo - 0.2 k/mm3???Abs. Baso - 0.0 k/mm3???Neut % - 65.2 %???Lymph % - 20.9 %???[place] % - 8.8 %???Eos % - 4.1 %???Baso % - 0.8 %???Imm Gran - 0.2 %???Abs. Imm Gran - 0.0 k/mm3 Cocaine Urine Screen (12/20/2023) ???Cocaine Metabolite Screen, Urine - POSITIVE Comprehensive Metabolic Panel (12/22/2023) ???Sodium - 140 mmol/L???Potassium - 4.3 mmol/L???Chloride - 105 mmol/L???Bicarbonate Level - 24 mmol/L???Anion Gap - 11???Glucose Level - 122 mg/dL???BUN - 8 mg/dL???Creatinine-Blood - 0.87 mg/dL???Estimated GFR Creatinine - 103 ML/MIN/1.73 M2???Calcium - 9.2 mg/dL???Protein, Total - 6.5 Gm/dL???Al bumin - 4.2 Gm/dL???AG Ratio - 1.8???Alkaline Phosphatase - 74 units/L???AST (SGOT) - 15 units/L???ALT (SGPT) - 17 units/L???Bilirubin, Total - 0.4 mg/dL COVID-19 (Novel Coronavirus), Rapid PCR (12/20/2023) ???COVID-19 by RT-PCR - NEGATIVE GLUCOSE POC (12/20/2023) ???Glucose, POC - 81 mg/dL Opiate Screen Urine (12/20/2023) ???Opiate Screen, Urine - NONE DETECTED TSH with T4 Reflex (Adults Only) (12/20/2023) ???TSH - 1.08 uIU/mL You will be contacted within 72 hours with your results. Allergies (NKA means No Known Allergies) PHENobarbital??(Vomiting) Problems Active Problems??(4) Alcohol abuse?? Closed fracture of mandible?? Obese class I?? Polysubstance abuse?? Education Materials Below is the list of Educational Leaflet Providered with your Discharge Instructions. Valuables and Belongings I fully understand and agree that [facility] accepts no responsibility for all [...] to send valuables and belongings home. ?? Review of Valuable and Belonging List: With patient Disposition of Belongings: Other: some patients valubels locked on unit Possessions released to: locker #2 Date for Pt to Sign Valuables/Belongings: 12/21/23 01:27:00 ?? Other Discharge Information ? Pulmonary Rehab Status?? Pulmonary Rehab Discharge Status?? Respiratory Rate: 20 br/min ? Common Emergency Awareness Tips IS [...] are strongly encouraged to quit. Please call [facility] Link at [phone] or [phone] ([phone]) or log in to [email or web address] for referrals to smoking cessation programs. ?? 682 Suicide & Crisis Lifeline is available 16/12 if you or someone you know needs to find a reason to keep living. By calling 922 you'll be connected to a skilled, trained counselor at a crisis center in your area. INPATIENT DISCHARGE INSTRUCTIONS SIGNATURE PAGE CORWIN NARVAEZ Location:[facility] Registration Date and Time:12/20/2023 19:38 EDT Primary Care Physician: Caitlyn Greenberg NP, Attending Physician: Erasmo Moore DO, I BRICE CORWIN, have received the above patient education materials/instructions and have verbalized understanding. If ambulance or transport services are being used I further acknowledge being given a choice of service. ?? If you need to contact me, please call me at this number: . 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 Signature: Relationship to Patient: Witness Name/Signature: Date: Patient Care team information Care Team Personnel Name: Jania Lopez RN Position: [facility] RN Member Role: Primary Care Nurse Name: Stefania Kurtz RN Position: [facility] RN Member Role: Primary Care Nurse Name: Brunilda Fisher RN Position: S RN Member Role: Primary Care Nurse Name: Stephanie Cid Position: [facility] Outreach Member Role: Lifetime Consulting Physician Name: Garth Otoole RN Position: [facility] OB RN Member Role: Primary Care Nurse Name: Yun Wood Position: [facility] Outreach Member Role: Lifetime Consulting Physician Name: Santiago Dickinson MA Position: [facility] GI MA Member Role: Lifetime Consulting Physician Name: Zelda Reveles RN Position: [facility] RN Member Role: Primary Care Nurse Name: Caitlyn Greenberg NP Position: Reference Physician Member Role: PCP Address: Address: [address] [place] [address]- Name: Amaya Long RN Position: [facility] RN Member Role: Primary Care Nurse Name: Amira Escobar RN Position: [facility] RN Member Role: Primary Care Nurse Name: Jania De La Rosa RN Position: [facility] RN Member Role: Primary Care Nurse Name: Betsey Turcios RN Position: [facility] ED RN W/OE and Tasks Member Role: Primary Care Nurse Name: Sofie Walden NP Position: Reference Physician Member Role: Primary Care Nurse Address: Address: [address] [place] [address] Clinical Group [place], [place] [address] Name: Linda Russo RN Position: [facility] RN Member Role: Primary Care Nurse Name: Lester Covarrubias RN Position: [facility] RN Member Role: Primary Care Nurse Name: Flora Taylor RN Position: [facility] RN Member Role: Primary Care Nurse Name: Frank Lara RN Position: [facility] RN Member Role: Primary Care Nurse Name: Olesya Avalos RN Position: [facility] RN Member Role: Primary Care Nurse Name: Arnaldo Duran RN Position: [facility] RN Member Role: Primary Care Nurse Name: Suha Bryant NP Position: Reference Physician Member Role: Primary Care Nurse Address: Address: [address] [place] [address], [place] [address]- Name: Jolene Ceja RN Position: [facility] RN Member Role: Primary Care Nurse Name: Jenny Osuna RN Position: [facility] Animal Scientist Member Role: Primary Care Nurse Name: Bernadine Berg RN Position: [facility] RN Member Role: Primary Care Nurse Care Team Related Persons Name: PATIENT STATES, NO ONE
[2024-02-03 14:26] VITALS: BP 171/87; PULSE 82; RESP 18; TEMP 36.3; O2SAT 99
[2024-02-03] MEDS: Gabapentin 400 MG CAPSULE 800 MG PO ×2 (14:34→20:17)
[2024-02-03] MEDS: Methylphenidate HCl 10 MG TABLET PO ×2 (14:35→14:57)
[2024-02-03] MEDS: hydrOXYzine HCL 25 MG TABLET PO (14:57)
--- NOTE | 2024-02-03 15:12 | HO.WOUND ---
Wound Consult: Initial 53yr old? male admitted to [facility] on 01/30/24 - See progress notes and H&P for detailed history.? Wound consult placed for Bilateral Hand Padilla.? Patient agreeable to assessment and photo documentation.? Of note patient was seen prior to transition to [facility] health unit. Patient was agreeable to wound assessment we discussed his previous refusal by staff he reports he feels drying them out without dressings would be best. We discussed moist wound healing and protection from infections he understands and is agreeable to topical dressing. Bacitracin is ordered - Gold standard for burn treatment remains 3-4 times daily application of silvadene. Will ask provider to consider. The left finger blisters have ruptured - the roof remains intact and in place. there was foul smelling odor trapped under the skin it was cleaned and xeroform dressing applied until med is available. The patient was educated on the importance of cleansing and protection from infection. He was agreeable to keeping the wound bed covered at this time. There was no indication of active infection at this time. Photos failed to be taken at the beside. Recommendations: 1. Bilateral plantar hand padilla - Protect from foreign bacteria. Cleanse with soap and water, and or NS moist gauze. Apply skin prep to periwound. Apply Silvadene to wound bed per provider orders. Cover with bandaid or gauze. Re-consult wound care Nurse for wound deterioration or wound changes.
[2024-02-03] MEDS: Buprenorphine/Naloxone 8/2 mg FILM 1 FILM SUBLINGUAL (16:23)
[2024-02-03] MEDS: metFORMIN HCl 500 MG TABLET PO (16:23)
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
[2024-02-03 20:00] VITALS: BP 175/109; PULSE 74; TEMP 36.4; O2SAT 96
[2024-02-03 20:10] VITALS: BP 160/93; PULSE 83; TEMP 36.4
[2024-02-03 20:12] VITALS: BP 160/93
[2024-02-03] MEDS: Prazosin HCL 5 MG CAPSULE PO (20:12)
[2024-02-03] MEDS: QUEtiapine Fumarate 50 MG TABLET 150 MG PO (20:14)
[2024-02-03] MEDS: Zolpidem Tartrate 5 MG TABLET 10 MG PO (20:15)
[2024-02-03] MEDS: LORazepam 1 MG TABLET PO (20:16)
[2024-02-03] MEDS: traZODone HCL 100 MG TABLET PO (22:30)
[2024-02-04 08:00] VITALS: BP 130/69; PULSE 71; RESP 18; TEMP 36.4; O2SAT 97
[2024-02-04] MEDS: Buprenorphine/Naloxone 8/2 mg FILM 1 FILM SUBLINGUAL ×3 (09:59→16:28)
[2024-02-04] MEDS: Nicotine 21 MG PATCH.TD24 TRANSDERMA (09:59)
[2024-02-04] MEDS: Gabapentin 400 MG CAPSULE 800 MG PO ×3 (09:59→20:17)
[2024-02-04] MEDS: Methylphenidate HCl 10 MG TABLET 20 MG PO ×2 (10:00→13:10)
[2024-02-04] MEDS: metFORMIN HCl 500 MG TABLET PO ×2 (10:00→16:28)
[2024-02-04] MEDS: QUEtiapine Fumarate 100 MG TABLET PO ×2 (10:00→16:29)
[2024-02-04] MEDS: LORazepam 1 MG TABLET PO ×2 (10:00→20:17)
[2024-02-04] MEDS: buPROPion HCl XL 150 MG TAB.ER.24H PO (10:28)
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
--- NOTE | 2024-02-04 14:52 | PM.EVENT ---
Event Note Date of Service: 02/04/24 Event Note: 53 year old man admitted to for psychiatric care. Had EJ removed yesterday and has some discomfort and mild edema to right neck area. Could likely be IV phlebitis. AP Phlebitis right neck from EJ removal warm compress for comfort IBU 600 prn for pain Follow up tomorrow Time Spent With Patient Time: Total time managing care of this patient today ____ minutes.
[2024-02-04 20:00] VITALS: BP 156/110; PULSE 92; RESP 16; TEMP 35.6; O2SAT 98
[2024-02-04 20:18] VITALS: BP 156/110
[2024-02-04] MEDS: Celecoxib 100 MG CAPSULE PO (20:18)
[2024-02-04] MEDS: Prazosin HCL 5 MG CAPSULE PO (20:18)
[2024-02-04] MEDS: QUEtiapine Fumarate 50 MG TABLET 150 MG PO (20:18)
[2024-02-04] MEDS: Zolpidem Tartrate 5 MG TABLET 10 MG PO (20:21)
[2024-02-04] MEDS: traZODone HCL 100 MG TABLET PO (21:50)
[2024-02-04] MEDS: Silver Sulfadiazine 1 % Cream 20 GM TUBE 1 APPL TOPICAL (21:51)
[2024-02-05 08:00] VITALS: BP 111/56; PULSE 64; RESP 16; TEMP 36.2; O2SAT 97
[2024-02-05] MEDS: Methylphenidate HCl 10 MG TABLET 20 MG PO ×2 (08:55→13:14)
[2024-02-05] MEDS: LORazepam 1 MG TABLET PO ×2 (08:55→19:58)
[2024-02-05] MEDS: Celecoxib 100 MG CAPSULE PO ×2 (08:56→19:57)
[2024-02-05] MEDS: buPROPion HCl XL 150 MG TAB.ER.24H PO ×2 (08:56→11:31)
[2024-02-05] MEDS: Nicotine 21 MG PATCH.TD24 TRANSDERMA (09:08)
[2024-02-05] MEDS: Buprenorphine/Naloxone 8/2 mg FILM 1 FILM SUBLINGUAL ×3 (09:09→16:36)
[2024-02-05] MEDS: metFORMIN HCl 500 MG TABLET PO ×2 (09:09→16:36)
[2024-02-05] MEDS: Gabapentin 400 MG CAPSULE 800 MG PO ×3 (09:09→19:58)
[2024-02-05] MEDS: QUEtiapine Fumarate 100 MG TABLET PO ×2 (09:09→16:36)
[2024-02-05] MEDS: Silver Sulfadiazine 1 % Cream 20 GM TUBE 1 APPL TOPICAL (10:27)
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
[2024-02-05 19:50] VITALS: BP 159/98; PULSE 76; RESP 18; TEMP 36.4; O2SAT 100
[2024-02-05 19:57] VITALS: BP 159/98
[2024-02-05] MEDS: Prazosin HCL 5 MG CAPSULE PO (19:57)
[2024-02-05] MEDS: traZODone HCL 100 MG TABLET 200 MG PO (19:58)
[2024-02-05] MEDS: Zolpidem Tartrate 5 MG TABLET 10 MG PO (19:58)
[2024-02-06 07:56] VITALS: BP 110/56; PULSE 65; RESP 16; TEMP 36.4; O2SAT 97
[2024-02-06] MEDS: buPROPion HCl XL 300 MG TAB.ER.24H PO (08:28)
[2024-02-06] MEDS: LORazepam 1 MG TABLET PO ×2 (08:28→20:02)
[2024-02-06] MEDS: Methylphenidate HCl 10 MG TABLET 20 MG PO ×2 (08:28→13:16)
[2024-02-06 08:43] LABS: Estimated Glomerular Filt Rate > 60
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
[2024-02-06] MEDS: metFORMIN HCl 500 MG TABLET PO (10:22)
[2024-02-06] MEDS: Gabapentin 400 MG CAPSULE 800 MG PO ×3 (10:22→20:02)
[2024-02-06] MEDS: Celecoxib 100 MG CAPSULE PO ×2 (10:22→20:02)
[2024-02-06] MEDS: Buprenorphine/Naloxone 8/2 mg FILM 1 FILM SUBLINGUAL ×3 (10:22→17:21)
[2024-02-06] MEDS: QUEtiapine Fumarate 100 MG TABLET PO ×2 (10:23→17:21)
[2024-02-06] MEDS: buPROPion HCl XL 150 MG TAB.ER.24H 450 MG PO (10:25)
[2024-02-06] MEDS: Nicotine 21 MG PATCH.TD24 TRANSDERMA (10:25)
[2024-02-06] MEDS: Nicotine Polacrilex 2 MG GUM 4 MG BUCCAL (12:12)
[2024-02-06 19:56] VITALS: BP 132/77; PULSE 78; RESP 18; TEMP 36.4; O2SAT 100
[2024-02-06] MEDS: Zolpidem Tartrate 5 MG TABLET 10 MG PO (20:01)
[2024-02-06] MEDS: traZODone HCL 100 MG TABLET 200 MG PO (20:01)
[2024-02-06] MEDS: Prazosin HCL 5 MG CAPSULE PO (20:12)
[2024-02-07 08:00] VITALS: BP 125/58; PULSE 67; RESP 18; TEMP 36.4; O2SAT 98
[2024-02-07] MEDS: Methylphenidate HCl 10 MG TABLET 20 MG PO ×2 (08:26→12:53)
[2024-02-07] MEDS: buPROPion HCl XL 150 MG TAB.ER.24H 450 MG PO (08:27)
[2024-02-07] MEDS: LORazepam 1 MG TABLET PO ×2 (08:28→20:03)
[2024-02-07] MEDS: Silver Sulfadiazine 1 % Cream 20 GM TUBE 1 APPL TOPICAL (09:11)
[2024-02-07] MEDS: Celecoxib 100 MG CAPSULE PO ×2 (09:11→20:02)
[2024-02-07] MEDS: Buprenorphine/Naloxone 8/2 mg FILM 1 FILM SUBLINGUAL ×3 (09:11→16:00)
[2024-02-07] MEDS: Gabapentin 400 MG CAPSULE 800 MG PO ×3 (09:11→20:02)
[2024-02-07] MEDS: metFORMIN HCl 500 MG TABLET PO (09:15)
--- NOTE | 2024-02-07 09:53 | HO.PSYCHPN ---
Subjective Subjective Date of Service: 02/07/24 Reason For Visit: PTSD, recurrent major depression, ETOH Subjective Notes: Conditional Voluntary Healthcare Proxy: No Guardianship: No Medical Problems Affecting Mental Status: No Interim History: 53 yo WM s/p od on wellbutrin - co am anxiety , denies current si - feels morehope about future now- fearful about not getting ritalin on dc as here getting 10mg 2 bid as that is what pharmacy has- but on dc won't be covered by [employer] - so hopguy polo will write for 20mg bid - (dose consolidation required with [employer] they won't cover 120 pills/month) Also corrected us that he was on metformin bid not just daily. Medication Compliance: Yes Side effects from medications: No Attending Groups: Intermittent Review of Systems Acute medical concerns: No Medical Review of Systems: unchanged Mental Status Exam Mental Status Exam Patient Appearance: Appropriate Patient Orientation: Person, Place, Time and Situation Level of Consciousness: Awake, Appropriate and Alert Patient Behavior: Appropriate, Cooperative and Good Eye Contact Mood Description: Constricted and Apprehensive Affect Description: Blunted Patient Cognition Impaired: No Ability to Follow Directions: Fair Speech Pattern: Clear Hallucinations: None Delusions: Not Present Thought Process: Intact and Goal Oriented Thought Content: positive for Intact and positive for Goal Oriented Judgement: Fair Diagnostics Vital Signs (24Hr): Vital Signs - 24 hr 02/06/24 19:56 02/07/24 08:00 Temperature 97.6 F 97.5 F Pulse Rate 78 67 Respiratory Rate 18 18 Blood Pressure 132/77 125/58 L Pulse Oximetry 100 98 Oxygen Delivery Method Room Air Room Air Labs 02/06/24 08:25 Labs: Laboratory Results - last 48 hr 02/06/24 08:25 Creatinine 0.82 Estim Creat Clear Calc TNP Estimated GFR > 60 Medications Medications Current Medications Al Hydroxide/Mg Hydroxide (Magnesium Hydrox/Alum Hydrox 30 Ml Oral.Susp) 30 ml PO Q6H PRN PRN Reason: Heartburn/Nausea Buprenorphine/Naloxone (Buprenorphine/Naloxone 8/2 Mg Film) 1 film SUBLINGUAL TID@0900,1200,1700 [facility] Last Admin: 02/07/24 09:11 Dose: 1 film Bupropion HCl (Bupropion Hcl Xl 150 Mg Tab.Er.24h) 450 mg PO DAILY [facility] Last Admin: 02/07/24 08:27 Dose: 450 mg Celecoxib (Celecoxib 100 Mg Capsule) 100 mg PO BID [facility] Last Admin: 02/07/24 09:11 Dose: 100 mg Gabapentin (Gabapentin 400 Mg Capsule) 800 mg PO TID [facility] Last Admin: 02/07/24 09:11 Dose: 800 mg Hydroxyzine HCl (Hydroxyzine Hcl 25 Mg Tablet) 25 mg PO Q6H PRN PRN Reason: Anxiety Last Admin: 02/03/24 14:57 Dose: 25 mg Ibuprofen (Ibuprofen 600 Mg Tablet) 600 mg PO Q8H PRN PRN Reason: Pain, Mild (Pain Scale 1-3) Lorazepam (Lorazepam 1 Mg Tablet) 1 mg PO BID [facility] Last Admin: 02/07/24 08:28 Dose: 1 mg Magnesium Hydroxide (Milk Of Magnesia 30 Ml Oral.Susp) 30 ml PO DAILY PRN PRN Reason: Constipation Metformin HCl (Metformin Hcl 500 Mg Tablet) 500 mg PO 0900 [facility] Last Admin: 02/07/24 09:15 Dose: 500 mg Methylphenidate HCl (Methylphenidate Hcl 10 Mg Tablet) 20 mg PO BID@0800,1400 [facility] Last Admin: 02/07/24 08:26 Dose: 20 mg Nicotine (Nicotine 21 Mg Patch.Td24) 21 mg TRANSDERMA DAILY PRN PRN Reason: nicotine cravings Last Admin: 02/06/24 10:25 Dose: 21 mg Nicotine Polacrilex (Nicotine Polacrilex 2 Mg Gum) 4 mg BUCCAL Q2H PRN PRN Reason: Nicotine Cravings Last Admin: 02/06/24 12:12 Dose: 4 mg Pt Own (Sodium Fluoride 1.1 % Toothpaste 1 Appl) 1 appl PO BID [facility] Last Admin: 02/07/24 09:11 Dose: 1 appl Prazosin HCl (Prazosin Hcl 5 Mg Capsule) 5 mg PO BEDTIME [facility]; Protocol Last Admin: 02/06/24 20:12 Dose: 5 mg Quetiapine Fumarate (Quetiapine Fumarate 100 Mg Tablet) 100 mg PO DAILY [facility] Last Admin: 02/06/24 10:23 Dose: 100 mg Quetiapine Fumarate (Quetiapine Fumarate 100 Mg Tablet) 100 mg PO BID PRN PRN Reason: agitation Last Admin: 02/06/24 17:21 Dose: 100 mg Silver Sulfadiazine (Silver Sulfadiazine 1 % Cream 20 Gm Tube) 1 appl TOPICAL BID [facility] Last Admin: 02/07/24 09:11 Dose: 1 appl Trazodone HCl (Trazodone Hcl 100 Mg Tablet) 200 mg PO BEDTIME [facility] Last Admin: 02/06/24 20:01 Dose: 200 mg Zolpidem Tartrate (Zolpidem Tartrate 5 Mg Tablet) 10 mg PO BEDTIME PRN PRN Reason: Insomnia Last Admin: 02/06/24 20:01 Dose: 10 mg Allergies Allergies Allergy/AdvReac Type Severity Reaction Status Date / Time ketamine AdvReac Severe Agitated Verified 01/30/24 06:16 phenobarbital AdvReac Vomiting Verified 01/30/24 06:16 Assessment & Plan Assessment & Plan (1) MDD (major depressive disorder), recurrent episode, severe: Status: Acute Code(s): F33.2 - Major depressive disorder, recurrent severe without psychotic features (2) Chronic post-traumatic stress disorder (PTSD): Status: Acute Code(s): F43.12 - Post-traumatic stress disorder, chronic (3) Alcohol use disorder: Status: Acute Code(s): F10.90 - Alcohol use, unspecified, uncomplicated (4) Crack cocaine use: Status: Acute Code(s): F14.90 - Cocaine use, unspecified, uncomplicated (5) Second degree burn of multiple fingers: Status: Acute Code(s): T23.239A - Burn of second degree of unspecified multiple fingers (nail), not including thumb, initial encounter Plan PTSD, Recurrent Major Depression, Severe, Alcohol Use Disorder, Cocaine Use Disorder. Plan: Admit, conditional voluntary, 15 minute checks Monitor for detox Encourage full milieu Collateral contacts Diagnostics as needed Continue current regime Hospitalist consult-pt had an IV placed in his neck in the ER. Sx of possible infection are present with edema and pain. Discharge/Aftercare planning 02/05: Accepted for [facility] with [facility]. Preparing for DC 02/08. 02/06 corrected metformin dosing, discussed concerns about getting ritalin on dc- Friday to CSS Patient educated on: medication risk/benefits and medical condition Informed Consent: understands Reason for continued inpatient stay Substantial Risk for: rapid decompensation Time Spent With Patient Time: Total time managing care of this patient today ____ minutes.
[2024-02-07] MEDS: QUEtiapine Fumarate 100 MG TABLET PO (16:00)
[2024-02-07 19:48] VITALS: BP 135/64; PULSE 77; RESP 16; TEMP 36.4; O2SAT 99
[2024-02-07] MEDS: Prazosin HCL 5 MG CAPSULE PO (20:03)
[2024-02-07] MEDS: traZODone HCL 100 MG TABLET 200 MG PO (20:03)
[2024-02-07] MEDS: Zolpidem Tartrate 5 MG TABLET 10 MG PO (20:03)
[2024-02-08] MEDS: buPROPion HCl XL 150 MG TAB.ER.24H 450 MG PO (08:31)
[2024-02-08] MEDS: LORazepam 1 MG TABLET PO ×2 (08:32→20:08)
[2024-02-08] MEDS: metFORMIN HCl 500 MG TABLET PO ×2 (08:32→16:19)
[2024-02-08] MEDS: Methylphenidate HCl 10 MG TABLET 20 MG PO ×2 (08:32→13:13)
[2024-02-08 08:37] VITALS: BP 107/57; PULSE 68; RESP 18; TEMP 37.2; O2SAT 97
[2024-02-08] MEDS: Gabapentin 400 MG CAPSULE 800 MG PO ×3 (08:55→20:08)
[2024-02-08] MEDS: Celecoxib 100 MG CAPSULE PO ×2 (08:55→20:07)
[2024-02-08] MEDS: Buprenorphine/Naloxone 8/2 mg FILM 1 FILM SUBLINGUAL ×3 (08:57→16:42)
[2024-02-08] MEDS: Nicotine 21 MG PATCH.TD24 TRANSDERMA (09:10)
[2024-02-08] MEDS: QUEtiapine Fumarate 100 MG TABLET PO ×2 (09:28→16:19)
--- NOTE | 2024-02-08 11:10 | HO.PSYCHPN ---
Subjective Subjective Date of Service: 02/08/24 Reason For Visit: PTSD, recurrent major depression, ETOH Subjective Notes: Conditional Voluntary Healthcare Proxy: No Guardianship: No Medical Problems Affecting Mental Status: No Interim History: 53 yo continues to struggle with sleep but thinks it is just due to being in hospital and transition - showed me padilla on hand healing well- FEels medications are good and looking forward to dc tomorrow to [facility] Medication Compliance: Yes Side effects from medications: No Attending Groups: Intermittent Review of Systems Acute medical concerns: No Medical Review of Systems: unchanged Mental Status Exam Mental Status Exam Patient Appearance: Appropriate Patient Orientation: Person, Place, Time and Situation Level of Consciousness: Awake, Appropriate and Alert Patient Behavior: Appropriate, Cooperative and Good Eye Contact Mood Description: Constricted and Apprehensive Affect Description: Blunted Patient Cognition Impaired: No Ability to Follow Directions: Fair Speech Pattern: Clear Hallucinations: None Delusions: Not Present Thought Process: Intact and Goal Oriented Thought Content: positive for Intact and positive for Goal Oriented Judgement: Fair Diagnostics Vital Signs (24Hr): Vital Signs - 24 hr 02/07/24 19:48 02/08/24 08:37 Temperature 97.5 F 98.9 F Pulse Rate 77 68 Respiratory Rate 16 18 Blood Pressure 135/64 107/57 L Pulse Oximetry 99 97 Oxygen Delivery Method Room Air Room Air Labs 02/06/24 08:25 Medications Medications Current Medications Al Hydroxide/Mg Hydroxide (Magnesium Hydrox/Alum Hydrox 30 Ml Oral.Susp) 30 ml PO Q6H PRN PRN Reason: Heartburn/Nausea Buprenorphine/Naloxone (Buprenorphine/Naloxone 8/2 Mg Film) 1 film SUBLINGUAL TID@0900,1200,1700 [facility] Last Admin: 02/08/24 11:05 Dose: 1 film Bupropion HCl (Bupropion Hcl Xl 150 Mg Tab.Er.24h) 450 mg PO DAILY [facility] Last Admin: 02/08/24 08:31 Dose: 450 mg Celecoxib (Celecoxib 100 Mg Capsule) 100 mg PO BID [facility] Last Admin: 02/08/24 08:55 Dose: 100 mg Gabapentin (Gabapentin 400 Mg Capsule) 800 mg PO TID [facility] Last Admin: 02/08/24 08:55 Dose: 800 mg Hydroxyzine HCl (Hydroxyzine Hcl 25 Mg Tablet) 25 mg PO Q6H PRN PRN Reason: Anxiety Last Admin: 02/03/24 14:57 Dose: 25 mg Ibuprofen (Ibuprofen 600 Mg Tablet) 600 mg PO Q8H PRN PRN Reason: Pain, Mild (Pain Scale 1-3) Lorazepam (Lorazepam 1 Mg Tablet) 1 mg PO BID [facility] Last Admin: 02/08/24 08:32 Dose: 1 mg Magnesium Hydroxide (Milk Of Magnesia 30 Ml Oral.Susp) 30 ml PO DAILY PRN PRN Reason: Constipation Metformin HCl (Metformin Hcl 500 Mg Tablet) 500 mg PO BIDWM [facility] Last Admin: 02/08/24 08:32 Dose: 500 mg Methylphenidate HCl (Methylphenidate Hcl 10 Mg Tablet) 20 mg PO BID@0800,1400 [facility] Last Admin: 02/08/24 08:32 Dose: 20 mg Nicotine (Nicotine 21 Mg Patch.Td24) 21 mg TRANSDERMA DAILY PRN PRN Reason: nicotine cravings Last Admin: 02/08/24 09:10 Dose: 21 mg Nicotine Polacrilex (Nicotine Polacrilex 2 Mg Gum) 4 mg BUCCAL Q2H PRN PRN Reason: Nicotine Cravings Last Admin: 02/06/24 12:12 Dose: 4 mg Pt Own (Sodium Fluoride 1.1 % Toothpaste 1 Appl) 1 appl PO BID [facility] Last Admin: 02/08/24 08:32 Dose: 1 appl Prazosin HCl (Prazosin Hcl 5 Mg Capsule) 5 mg PO BEDTIME [facility]; Protocol Last Admin: 02/07/24 20:03 Dose: 5 mg Quetiapine Fumarate (Quetiapine Fumarate 100 Mg Tablet) 100 mg PO DAILY [facility] Last Admin: 02/08/24 09:28 Dose: 100 mg Quetiapine Fumarate (Quetiapine Fumarate 100 Mg Tablet) 100 mg PO BID PRN PRN Reason: agitation Last Admin: 02/07/24 16:00 Dose: 100 mg Silver Sulfadiazine (Silver Sulfadiazine 1 % Cream 20 Gm Tube) 1 appl TOPICAL BID [facility] Last Admin: 02/08/24 08:37 Dose: Not Given Trazodone HCl (Trazodone Hcl 100 Mg Tablet) 200 mg PO BEDTIME [facility] Last Admin: 02/07/24 20:03 Dose: 200 mg Zolpidem Tartrate (Zolpidem Tartrate 5 Mg Tablet) 10 mg PO BEDTIME PRN PRN Reason: Insomnia Last Admin: 02/07/24 20:03 Dose: 10 mg Allergies Allergies Allergy/AdvReac Type Severity Reaction Status Date / Time ketamine AdvReac Severe Agitated Verified 01/30/24 06:16 phenobarbital AdvReac Vomiting Verified 01/30/24 06:16 Assessment & Plan Assessment & Plan (1) MDD (major depressive disorder), recurrent episode, severe: Status: Acute Code(s): F33.2 - Major depressive disorder, recurrent severe without psychotic features (2) Chronic post-traumatic stress disorder (PTSD): Status: Acute Code(s): F43.12 - Post-traumatic stress disorder, chronic (3) Alcohol use disorder: Status: Acute Code(s): F10.90 - Alcohol use, unspecified, uncomplicated (4) Crack cocaine use: Status: Acute Code(s): F14.90 - Cocaine use, unspecified, uncomplicated (5) Second degree burn of multiple fingers: Status: Acute Code(s): T23.239A - Burn of second degree of unspecified multiple fingers (nail), not including thumb, initial encounter Plan PTSD, Recurrent Major Depression, Severe, Alcohol Use Disorder, Cocaine Use Disorder. Plan: Admit, conditional voluntary, 15 minute checks Monitor for detox Encourage full milieu Collateral contacts Diagnostics as needed Continue current regime Hospitalist consult-pt had an IV placed in his neck in the ER. Sx of possible infection are present with edema and pain. Discharge/Aftercare planning 02/05: Accepted for [facility] with [facility]. Preparing for DC 02/08. 02/06 corrected metformin dosing, discussed concerns about getting ritalin on dc- Friday to [facility] 02/07 CTP dc to CSS tomorrow Patient educated on: other Informed Consent: understands Reason for continued inpatient stay Substantial Risk for: rapid decompensation Time Spent With Patient Time: Total time managing care of this patient today ____ minutes.
[2024-02-08 19:45] VITALS: BP 172/91; PULSE 75; RESP 18; TEMP 36.4; O2SAT 100
[2024-02-08] MEDS: traZODone HCL 100 MG TABLET 200 MG PO (20:07)
[2024-02-08] MEDS: Zolpidem Tartrate 5 MG TABLET PO (20:07)
[2024-02-08] MEDS: Prazosin HCL 5 MG CAPSULE PO (20:08)
[2024-02-09] MEDS: Methylphenidate HCl 10 MG TABLET 20 MG PO ×2 (08:19→11:13)
[2024-02-09] MEDS: LORazepam 1 MG TABLET PO (08:20)
[2024-02-09] MEDS: buPROPion HCl XL 150 MG TAB.ER.24H 450 MG PO (08:20)
[2024-02-09] MEDS: metFORMIN HCl 500 MG TABLET PO (08:20)
[2024-02-09] MEDS: Nicotine 21 MG PATCH.TD24 TRANSDERMA (08:21)
[2024-02-09 08:23] VITALS: BP 118/55; PULSE 63; RESP 18; TEMP 36.9; O2SAT 98
[2024-02-09] MEDS: QUEtiapine Fumarate 100 MG TABLET PO (08:52)
[2024-02-09] MEDS: Celecoxib 100 MG CAPSULE PO (08:52)
[2024-02-09] MEDS: Gabapentin 400 MG CAPSULE 800 MG PO (08:52)
[2024-02-09] MEDS: Buprenorphine/Naloxone 8/2 mg FILM 1 FILM SUBLINGUAL ×2 (08:52→11:13)
--- NOTE | 2024-02-09 15:19 | P.DS_ITS ---
DS: Providers Provider Date of Service: 02/09/24 Date of admission: 02/03/24 14:21 Date of discharge: 02/09/24 Primary care physician: Unknown Physician Admitting clinician: Joycelyn Jones Attending physician on admission: Vic Campuzano Consults: 02/03/24 15:25 Consult to Wound Care Routine Reason for consultation: Bilateral Hand Alarcon 02/04/24 13:26 Consult to Hospitalist Routine Comment: Consulting Provider: Hospitalist Reason For Exam: ?IV site infection, neck, with edema, pain Attending physician on discharge: Vic Campuzano Discharging clinician: Joycelyn Jones DS: Diagnosis Discharge Diagnosis (1) MDD (major depressive disorder), recurrent episode, severe: Status: Acute (2) Chronic post-traumatic stress disorder (PTSD): Status: Acute (3) Alcohol use disorder: Status: Acute (4) Crack cocaine use: Status: Acute (5) Second degree burn of multiple fingers: Status: Acute DS: Medications Discharge Medications Home Medications: Previous Rx's ?Medication ?Instructions ?Recorded Sodium Fluoride Toothpaste 1 appl PO BID ##0 02/09/24 buprenorphine 8 mg-naloxone 2 mg 1 film sublingual 02/09/24 sublingual film (Suboxone) TID@0800,1200,1700 #21 ea bupropion HCl 450 mg 24 hr tablet, 450 mg PO DAILY #30 tabs 02/09/24 extended release gabapentin 800 mg tablet 800 mg PO TID #90 tabs 02/09/24 metformin 500 mg tablet 500 mg PO BID #60 tabs 02/09/24 methylphenidate HCl 20 mg tablet 20 mg PO BID #60 tabs 02/09/24 (Ritalin) nicotine (polacrilex) 2 mg gum 4 mg buccal Q2H PRN Nicotine 02/09/24 Cravings #100 ea nicotine 21 mg/24 hr daily 21 mg transdermal DAILY PRN 02/09/24 transdermal patch nicotine cravings #30 ea prazosin 5 mg capsule 5 mg PO BEDTIME #30 caps 02/09/24 quetiapine 100 mg tablet 100 mg PO DAILY #30 tabs 02/09/24 silver sulfadiazine 1 % topical 1 appl topical BID #10 grams 02/09/24 cream trazodone 100 mg tablet 200 mg (2 x 100 mg) PO BEDTIME #60 02/09/24 tabs Mental Status Exam Mental Status Exam Patient Appearance: Appropriate Patient Orientation: Person, Place, Time and Situation Level of Consciousness: Awake, Appropriate and Alert Patient Behavior: Appropriate, Cooperative and Good Eye Contact Mood Description: Constricted and Apprehensive Affect Description: Blunted Patient Cognition Impaired: No Ability to Follow Directions: Fair Speech Pattern: Clear Hallucinations: None Delusions: Not Present Thought Process: Intact and Goal Oriented Thought Content: positive for Intact and positive for Goal Oriented Judgement: Fair Data Data Completed and Pending Completed studies during hospitalization [Text1]: 02/06/24 08:25 Creatinine 0.82 Estim Creat Clear Calc TNP Estimated GFR > 60 DS: Summary Hospital Course Hospital Course: Admission to adult psychiatry in transfer from medicine after an overdose of Wellbutrin and active detox with first and second degree alarcon on both hands/fingers from a crack pipe. Pt has a history of PTSD, Recurrent severe major depression, Alcohol, Cocaine and Opate Use Disorders with Suboxone therapy and DMII. Pt admitted medically 01/29 s/p overdose, transferred to psych on 02/02. Medications were evaluated and re-established, detox was completed, burn treatment was continued, pt participated in milieu and team initiated a search for CSS per his request. Transfer was arranged when placement was secured. Status at Discharge Functional status at discharge: independent ambulation Overall status at discharge: patient is back to baseline Time Spent with Patient Time attestation: Total time managing care of this patient today ____ minutes. Time spent: Less than 30 minutes Discharge Plan Discharge Anticipated Discharge Date/Time: 02/09/24 12:00 Patient Disposition: Xfer Other Discharge Diagnosis: PTSD Recurrent Major Depression Alcohol Use Disorder Cocaine Use Disorder Second Degree Alarcon on fingers Referrals: [facility] [Other] - 1 Week (Referral for Substance use treatment program) [facility] [Other] - 02/09/24 (Patient accepted to [facility] program for substance use treatment ) [facility] [Other] - 1 Week (Patient referred to [facility] in [place] for substance abuse treatment.) Physician,Unknown J [Primary Care Provider] - 1 Week Discharge Medications: New nicotine (polacrilex) 2 mg Gum 4 mg buccal Q2H PRN (Reason: Nicotine Cravings) Qty: 100 0RF quetiapine 100 mg Tablet 100 mg PO DAILY Qty: 30 0RF prazosin 5 mg Capsule 5 mg PO BEDTIME Qty: 30 0RF Protocol: Hold for SBP< HOLD for SBP < : 90 trazodone 100 mg Tablet 200 mg PO BEDTIME Qty: 60 0RF nicotine 21 mg/24 hr Patch 24 Hour 21 mg transdermal DAILY PRN (Reason: nicotine cravings) Qty: 30 0RF silver sulfadiazine 1 % Cream 1 appl topical BID Qty: 10 0RF Sodium Fluoride 1 appl PO BID Qty: 0 0RF bupropion HCl 450 mg tablet extended release 24 hr 450 mg PO DAILY Qty: 30 0RF methylphenidate HCl [Ritalin] 20 mg tablet 20 mg PO BID Qty: 60 0RF Rx Instructions: Partial Fill upon patient request. buprenorphine-naloxone [Suboxone] 8-2 mg film 1 film buccal TID Qty: 21 0RF Continued metformin 500 mg tablet 500 mg PO BID Qty: 60 0RF gabapentin 800 mg tablet 800 mg PO TID Qty: 90 0RF buprenorphine-naloxone [Suboxone] 8-2 mg Film 1 film sublingual TID@0800,1200,1700 Qty: 21 0RF Discontinued quetiapine 100 mg tablet 150 mg PO BEDTIME methylphenidate HCl 10 mg Tablet 20 mg PO 0800,1400 Qty: 60 0RF Rx Instructions: Partial Fill upon patient request. prazosin 5 mg Capsule 5 mg PO BEDTIME Qty: 30 0RF Protocol: Hold for SBP< HOLD for SBP < : 90 trazodone 100 mg Tablet 100 mg PO BEDTIME PRN (Reason: Insomnia) Qty: 30 0RF zolpidem [Ambien] 10 mg tablet 10 mg PO BEDTIME PRN (Reason: insomnia) Qty: 10 0RF Discharge Orders: Discharge Order (Routine); Ordered 02/09/24 Ordered By: Joycelyn Jones Diet: Advance to usual diet Activity on Discharge: As tolerated Stand Alone Forms: Patient Portal Discharge page, Community Support Print Language: Thai Care Plan Goals: Abstinence Mood and Behavioral Stabilizaiton Health Concerns: Abstinence Mood and Behavioral Stabilization Plan of Treatment: CSS Admission Take medications as directed Assessment: Scheduled transfer for ongoing treatment Discharge Date/Time: 02/09/24 11:29
--- NOTE | 2024-02-11 15:40 | P.EN_ITS ---
Documented by User: Joycelyn Jones APRN 02/11/24 15:42 Event Note Date of Service: 02/11/24 Event Note: Pt's OP Ritalin 20 mg bid po prescription received prior authorization today from [facility] Reference number [id number] . Rx sent to [facility] who recieved the Rx and was able to fill this. Call to pt's CSS program, their director will pickle sorter the medication today. Time Spent With Patient Time: Total time managing care of this patient today ____ minutes. Documented by User: Vic Campuzano MD 02/11/24 23:09 Event Note Date of Service: 02/11/24
== END 2024-02-09 11:29 | disposition other institution (70) | DRG 751 ==
PROVIDERS: Admitting Provider Clinical Nurse Specialist Psychiatric/Mental Health, Adult; Visit Provider Clinical Nurse Specialist Psychiatric/Mental Health, Adult
DX: F33.2 Major depressive disorder, recurrent severe without psychotic features (principal); I80.8 Phlebitis and thrombophlebitis of other sites; T23.242A Burn of second degree of multiple left fingers (nail), including thumb, initial encounter; T23.241A Burn of second degree of multiple right fingers (nail), including thumb, initial encounter; X08.8XXA Exposure to other specified smoke, fire and flames, initial encounter; F11.20 Opioid dependence, uncomplicated; F43.12 Post-traumatic stress disorder, chronic; F10.20 Alcohol dependence, uncomplicated; F14.90 Cocaine use, unspecified, uncomplicated; Z79.84 Long term (current) use of oral hypoglycemic drugs; Z79.899 Other long term (current) drug therapy
CPT/HCPCS: 36415; 82565

== ENCOUNTER → 2024-02-03 14:21 | Outpatient (BNV) | payer OTHER, SELFPAY | PROVIDERS: Admitting Provider Clinical Nurse Specialist Psychiatric/Mental Health, Adult; Visit Provider Clinical Nurse Specialist Psychiatric/Mental Health, Adult | DX: F33.2 Major depressive disorder, recurrent severe without psychotic features (principal); F43.12 Post-traumatic stress disorder, chronic; F10.90 Alcohol use, unspecified, uncomplicated; F14.90 Cocaine use, unspecified, uncomplicated; T23.239A Burn of second degree of unspecified multiple fingers (nail), not including thumb, initial encounter | CPT/HCPCS: 90792; 99231; 99232; 99238; 99499 ==

== ENCOUNTER 2024-05-10 16:24 | Inpatient (IN) | payer MEDICAID, SELFPAY ==
--- NOTE | ~2024-05-10 | CT_ITS ---
EXAMINATION: CT ABDOMEN AND PELVIS WITH CONTRAST CLINICAL INFORMATION: Unexplained leukocytosis with elevated liver function tests. COMPARISON: May 22, 2022 TECHNIQUE: Multidetector volumetric images were obtained from the superior aspect of the liver through the pubic symphysis following administration 85 mL of Omnipaque 350 intravenous contrast. Sagittal and coronal reformatted images were obtained on the technologist's workstation. Oral contrast: No This CT examination was performed using dose optimization techniques as appropriate, variously including the following: *Automated exposure control *Adjustment of mA and/or kV according to patient size (this includes techniques or standardized protocols for targeted exams where dose is matched to indication/reason for exam; i.e. extremities or head) *Use of iterative reconstruction technique DLP: 725 mGy-cm FINDINGS: LUNG BASES: Minimal infiltrative change right middle lobe. LIVER, GALLBLADDER, AND BILIARY TREE: The liver is normal in size, shape, and attenuation. No focal hepatic lesion or biliary ductal dilatation is present. The gallbladder is unremarkable with no evidence of radiopaque gallstones, gallbladder wall thickening, or obvious pericholecystic inflammatory changes. PANCREAS: Unremarkable. SPLEEN: Unremarkable. ADRENAL GLANDS: Unremarkable. KIDNEYS AND URETERS: The kidneys are normal in size, shape, and attenuation. No hydronephrosis, hydroureter, or calculi seen. No perinephric stranding. There are scattered subcentimeter renal hypodensities likely small cysts. BLADDER: Unremarkable. GASTROINTESTINAL TRACT: The small and large bowel are unremarkable. The appendix is unremarkable. ABDOMINAL WALL: No significant hernia is appreciated. LYMPH NODES: Normal. VASCULAR: There is mild atherosclerotic plaque of the abdominal aorta. PELVIC VISCERA: Unremarkable. OSSEOUS STRUCTURES: Bilateral [id number]-[id number] hip degenerative change. CT/CT abdomen pelvis w IV con IMPRESSION: Minimal infiltrative change right middle lobe possibly developing pneumonia. Correlation needed. No acute intra-abdominal process. Bilateral hip degenerative change. Fleischner guidelines were followed. Electronically signed by: Arsalan Burris MD 05/11/2024 12:48 AM [facility]
--- NOTE | ~2024-05-10 | XR_ITS ---
EXAMINATION: XR CHEST CLINICAL INFORMATION: Pneumonia. Leukocytosis. COMPARISON: Chest radiograph from 12/08/2023. TECHNIQUE: AP portable upright radiographs of the chest. FINDINGS: The lungs are well expanded. No evidence of focal consolidation, pleural effusion, pulmonary edema, or pneumothorax. The cardiomediastinal silhouette is within normal limits. Mild right convex curvature of the upper thoracic spine. Mild left convex curvature of the mid-lower thoracic spine. No acute osseous abnormalities. XR/XR chest 1V IMPRESSION: No radiographically evident acute pulmonary abnormalities. Electronically signed by: Galdino Grover DO 05/10/2024 08:57 PM EST
[2024-05-10 16:35] VITALS: BP 147/82; PULSE 101; RESP 18; TEMP 36.1; O2SAT 97; BMI 27.7
--- NOTE | 2024-05-10 16:39 | ED_ITS ---
HPI - Psych General Chief Complaint: Psychiatric Symptoms Stated Complaint: crisis Time Seen by Provider: 05/10/24 17:06 Source: patient Mode of arrival: ambulatory Limitations: no limitations History of Present Illness ED Provider: HPI Narrative: Patient's history of substance abuse alcohol and cocaine with history of depression relapsed on drugs feel more depressed with vague SI does have previous overdose in his SI attempt patient does have history of alcohol withdrawal with DTs and seizures last drink was yesterday been decreasing the amout for last 2 days Related Data Home Medications ?Medication ?Instructions ?Recorded ?Confirmed buprenorphine 8 mg-naloxone 2 mg 1 film sublingual DAILY@1330 05/10/24 05/10/24 sublingual film (Suboxone) buprenorphine 8 mg-naloxone 2 mg 2 film sublingual DAILY 05/10/24 05/10/24 sublingual film (Suboxone) bupropion HCl 300 mg 24 hr tablet, 300 mg PO DAILY 05/10/24 05/10/24 extended release zolpidem 10 mg tablet 10 mg PO BEDTIME PRN Insomnia 05/10/24 05/10/24 Previous Rx's ?Medication ?Instructions ?Recorded Sodium Fluoride Toothpaste 1 appl PO BID ##0 02/09/24 gabapentin 800 mg tablet 800 mg PO TID #90 tabs 02/09/24 prazosin 5 mg capsule 5 mg PO BEDTIME #30 caps 02/09/24 quetiapine 100 mg tablet 100 mg PO DAILY #30 tabs 02/09/24 trazodone 100 mg tablet 200 mg (2 x 100 mg) PO BEDTIME #60 02/09/24 tabs methylphenidate HCl 20 mg tablet 20 mg PO BID #60 tabs 02/10/24 (Ritalin) Allergies Allergy/AdvReac Type Severity Reaction Status Date / Time ketamine AdvReac Severe Agitated Verified 05/10/24 16:37 phenobarbital AdvReac Vomiting Verified 05/10/24 16:37 Review of Systems 2 Review of Systems: Yes all other systems are reviewed and are negative PMFSH Past Medical History Medical History First degree burn of fingers and thumb Bupropion overdose Intentional overdose Suicide attempt Medical clearance for psychiatric admission Incidental pulmonary nodule Hepatic steatosis Alcohol use disorder Hepatitis C antibody positive in blood Alcohol dependence EtOH dependence Anxiety Chronic post-traumatic stress disorder (PTSD) MDD (major depressive disorder), recurrent episode, severe Depression Surgical History History of mandibular surgery Family History Family History Mother Diabetes mellitus Father Leukemia Social History Social History Household Members: None Household Members Other:: [employer] program Housing: Homeless Housing Other:: [employer] program Do you presently have visiting nurse or other home services: No Unable to assess alcohol history related to: Unknown Alcohol intake: current Alcohol intake frequency: 0-2 drinks per day Alcohol type: beer and hard liquor Comment: 1:1 sitter at bedside. Patient Tobacco Use Status: Current everyday Tobacco user Tobacco use type: Cigarette Cigarette Packs Per Day: 1 Cigarettes Per Day: 10 Years Smoked: 20 Smoked in Last 30 Days: Yes e-Cigarette/Vaping Use: Currently Using Second Hand Smoke Exposure: No Substance Use Type: Crack/Cocaine Substance Use Frequency: Occasionally Last Used Substance: Hours (ago) Any prior treatment program specific to substance use: No Advance Directives: No Advance Directives Information Provided: No Do you have a plan to hurt others: No Plan service: No Current occupational status: unemployed Sexual orientation: Straight/Heterosexual Physical Exam 2 Vital Signs: Vital Signs: Last Vital Signs Temp 98.7 F 05/11/24 00:06 Pulse 94 05/11/24 00:06 Resp 22 H 05/11/24 00:06 BP 121/64 05/11/24 00:06 Pulse Ox 96 05/11/24 00:06 O2 Del Method Room Air 05/11/24 00:06 BMI result Body Mass Index 27.7 Appearance: Alert. Oriented X3. No acute distress. Feels anxious Eyes: PERRLA, No Nystagmus ENT: Pharynx normal. Oral Mucosa moist Neck: Normal inspection. Neck supple. CVS: Normal heart rate and rhythm. Pulses normal. Respiratory: No respiratory distress. Equal air entry bilateral, no wheezing/rales/rhonchi Abdomen: Soft and nontender. Bowel sounds are present, no mass palpable, no CVA tenderness Skin: Skin warm and dry. Normal skin color. Normal skin turgor. Extremities: No lower extremity edema. No calf tenderness Neuro: Oriented X 3. No motor deficit. No sensory deficit.No cerebellar signs , cranial nerves II-XII intact -+ Course Course Course Narrative: This is an RME: Additional HPI, ROS, PE not included below will be deferred to primary provider. RME assessment and note performed by: Anaya Bo PA-C This is a 53-year-old male who presents emergency department after recent relapsed on alcohol for the last 3 weeks. Also states that he has been using crack just making his depression worse. Endorsing vague SI, previous overdose and SI attempt. Plan: labs, EKG, UA, care team Medications Administered Generic Name Dose Route Start Last Admin Trade Name Freq PRN Reason Stop Dose Admin Diazepam 10 mg 05/10/24 23:00 05/10/24 23:16 Diazepam 10 Mg/2 Ml Cartridge IVPUSH 05/11/24 17:01 10 mg Q6H FOUZIA Administration Enoxaparin Sodium 40 mg 05/10/24 23:00 05/10/24 23:12 Enoxaparin Sodium 40 Mg/0.4 Ml Syringe SUBCUT 40 mg Q24H FOUZIA Administration Gabapentin 800 mg 05/10/24 22:45 05/10/24 23:31 Gabapentin 400 Mg Capsule PO 800 mg TID FOUZIA Administration Lorazepam 2 mg 05/10/24 19:42 05/11/24 00:02 Lorazepam 1 Mg Tablet PO 2 mg RQ4H WHILE AWAKE PRN Administration Alcohol Withdrawal Melatonin 6 mg 05/10/24 22:39 05/10/24 23:31 Melatonin 3 Mg Tablet PO 6 mg BEDTIME PRN Administration Insomnia Methylphenidate HCl 20 mg 05/10/24 22:45 05/10/24 23:27 Methylphenidate Hcl 10 Mg Tablet PO 20 mg BID FOUZIA Administration Prazosin HCl 5 mg 05/10/24 23:00 05/10/24 23:28 Prazosin Hcl 1 Mg Capsule PO 5 mg BEDTIME FOUZIA Administration Protocol Trazodone HCl 200 mg 05/10/24 22:45 05/10/24 23:31 Trazodone Hcl 100 Mg Tablet PO 200 mg BEDTIME FOUZIA Administration Zolpidem Tartrate 10 mg 05/10/24 22:41 05/10/24 23:31 Zolpidem Tartrate 5 Mg Tablet PO 10 mg BEDTIME PRN Administration Insomnia Discontinued Medications Generic Name Dose Route Start Last Admin Trade Name Nanda PRN Reason Stop Dose Admin Buprenorphine/Naloxone 1 film 05/10/24 21:25 05/10/24 21:30 Buprenorphine/Naloxone 8/2 Mg Film SUBLINGUAL 05/10/24 21:26 1 film ONCE ONE Administration Ceftriaxone Sodium 2 gm 05/10/24 17:59 05/10/24 18:20 Ceftriaxone Sodium 2 Gm Vial IVPUSH 05/10/24 18:00 2 gm ONCE ONE Administration Sodium Chloride 1,000 mls @ 999 mls/hr 05/10/24 17:32 05/10/24 21:43 Ns IV 05/10/24 18:32 Infused .Q1H1M ONE Infusion Sodium Chloride 1,000 mls @ 999 mls/hr 05/10/24 19:42 05/10/24 23:11 Ns IV 05/10/24 20:42 Infused .Q1H1M ONE Infusion Thiamine HCl 200 mg/ Sodium 102 mls @ 204 mls/hr 05/10/24 22:37 05/10/24 23:12 Chloride IV 05/10/24 23:06 204 mls/hr ONCE ONE Administration Iohexol 85 ml 05/10/24 20:26 05/10/24 20:26 Iohexol 350 Mg/Ml 100 Ml Infus..Btl IV 05/10/24 20:27 85 ml ONCE ONE Administration Lorazepam 2 mg 05/10/24 17:35 05/10/24 17:53 Lorazepam 2 Mg/Ml Vial IVPUSH 05/10/24 17:36 2 mg ONCE ONE Administration Medical Decision Making Medical Decision Making MDM Narrative: Patient alcoholic alcohol withdrawal noted to have significant leukocytosis with left shift etiology not clear patient is afebrile no source of infection at this will do the blood culture lactic acid prophylactic antibiotics pending source of infection will admit patient for alcohol withdrawal possibly leukocytosis from leukemoid reaction not from sepsis CT abdomen is negative for acute in abdomen shows possible infiltration right middle lobe Differential Diagnosis Differential Diagnoses: The differential diagnosis associated with the presentation includes Admission/Observation Consideration of admission/observation: Escalation of care including admission/observation considered Consult Healthcare Provider Management of the patient was discussed with: Hospitalist Lab Data MDM Lab Attestation statement: I reviewed the patient's lab results. 05/10/24 17:07 05/10/24 17:07 Labs: Lab Results 05/10/24 05/10/24 05/10/24 Range/Units 17:07 18:07 20:37 WBC 23.6 H (4.8-10.8) X10*3/uL RBC 4.59 L (4.60-5.80) X10*6/uL Hgb 13.9 L (14.0-18.0) g/dl Hct 39.5 L (42.0-52.0) % MCV 86.1 (80.0-98.0) fL MCH 30.3 (27.0-33.0) pg MCHC 35.2 (31.0-36.0) g/dl RDW 13.0 (11.0-16.0) % Plt Count 356 D (160-400) X10*3/uL MPV 10.0 (9.4-12.4) fL Immature Gran % (Auto) 0.7 H (0.0-0.4) % Neut % (Auto) 91.0 H (45-73) % Lymph % (Auto) 2.3 L (20-40) % [place] % (Auto) 5.9 (2-11) % Eos % (Auto) 0.0 (0-4) % Baso % (Auto) 0.1 (0-2) % Lymph # (Auto) 0.6 L (1.2-4.9) X10*3/uL [place] # (Auto) 1.4 H (0.1-1.2) X10*3/uL Eos # (Auto) 0.0 (0.0-0.4) X10*3/uL Baso # (Auto) 0.0 (0.0-0.2) X10*3/uL Abs Immat Gran (auto) 0.16 H (0.00-0.03) X10*3/uL Absolute Neuts (auto) 21.5 H (2.0-8.3) x10*3/uL Absolute Nucleated RBC 0.000 (0.0-0.012) X10*3/uL Nucleated RBC % (auto) 0.0 (0.0-0.2) /100WBC Smear Tech's Comments VERIFIED Sodium 137 (135-145) mmol/L Potassium 3.6 (3.3-5.1) mmol/L Chloride 102 (96-108) mmol/L Carbon Dioxide 26 (22-29) mmol/L Anion Gap 13 (12-20) BUN 22 H (9-16) mg/dL Creatinine 0.98 (0.5-1.4) mg/dL Estim Creat Clear Calc 98.5 Estimated GFR > 60 Random Glucose 92 (60-115) mg/dL Lactic Acid 2.7 H* (0.5-2.0) mmol/L Calcium 9.3 D (8.4-10.2) mg/dL Magnesium 2.6 (1.6-2.6) mg/dL Total Bilirubin 0.8 (0.0-1.0) mg/dL Direct Bilirubin 0.2 (0.0-0.5) mg/dL AST 463 H (5-37) U/L ALT 162 H (0-40) U/L Alkaline Phosphatase 80 (39-117) U/L Total Protein 7.9 (6.5-8.0) g/dL Albumin 4.8 (3.5-5.0) g/dL Urine Color Yellow Urine Appearance Clear Urine pH 6.5 (5.0-9.0) Ur Specific [place] 1.025 (1.005-1.025) Urine Protein Trace (Neg-Trace) mg/dL Urine Glucose (UA) Negative (Negative) mg/dL Urine Ketones 15 (Negative) mg/dL Urine Blood Moderate (2+) H (Negative) Urine Nitrite Negative (Negative) Ur Leukocyte Esterase Negative (Negative) Urine RBC 0-2 (0-2) /HPF Urine WBC 0-5 (0-5) /HPF Ur Squamous Epith Cells 0-2 (0-2) /HPF Urine Bacteria None Seen (None Seen) Hyaline Casts 0-2 (0-2) /LPF Urine Opiates Screen Not Detected (Not Detect) Ur Buprenorphine Scrn Positive H (Not Detect) ng/mL Ur Oxycodone Screen Not Detected (Not Detect) ng/mL Urine Methadone Screen Not Detected (Not Detect) ng/mL Urine Fentanyl Screen Not Detected (Not Detect) Ur Barbiturates Screen Not Detected (Not Detect) Ur Phencyclidine Scrn Not Detected (Not Detect) Ur Amphetamines Screen Not Detected (Not Detect) U Benzodiazepines Scrn Not Detected (Not Detect) Urine Cocaine Screen POSITIVE H (Not Detect) U Marijuana (THC) Screen POSITIVE H (Not Detect) Ethyl Alcohol < 10 mg/dL Independent Interpretation I performed an independent interpretation of an: CT Scan Radiology Impression Discussion of test interpretation with radiology: I have reviewed the radiologist's reading. Radiologist Impression: CT/CT abdomen pelvis w IV con IMPRESSION: Minimal infiltrative change right middle lobe possibly developing pneumonia. Correlation needed. No acute intra-abdominal process. Bilateral hip degenerative change. Fleischner guidelines were followed. Electronically signed by: Arsalan Burris MD 05/11/2024 12:48 AM [facility] Discharge Plan Discharge Clinical Impression: Alcohol withdrawal, MDD (major depressive disorder), recurrent episode, severe, Suicidal ideation Patient Disposition: Admitted As Inpatient Interventions: [place]-Suicide Risk Severity Scale Last Done: 05/10/24 16:51
--- NOTE | 2024-05-10 16:40 | ECG_ITS ---
Test Reason : SHORTNESS OF BREATH Blood Pressure : / mmHG Vent. Rate : 083 BPM Atrial Rate : 083 BPM P-R Int : 130 ms QRS Dur : 094 ms QT Int : 410 ms P-R-T Axes : 057 020 049 degrees QTc Int : 481 ms Normal sinus rhythm Prolonged QT Abnormal ECG When compared with ECG of 31-JAN-2024 11:29, No significant change was found Referred By: Anaya Bo Electronically Signed By:ZULEYKA BURGOS
[2024-05-10 17:12] LABS: Basophils Percent Auto 0.1 % (0-2); Hematocrit 39.5 % (42.0-52.0); Hemoglobin 13.9 g/dl (14.0-18.0); Imm Gran Abs Auto 0.16 X10*3/uL (0.00-0.03); Imm Gran Pct Auto 0.7 % (0.0-0.4); Lymphocytes Absolute Auto 0.6 X10*3/uL (1.2-4.9); Lymphocytes Percent Auto 2.3 % (20-40); MANUAL DIFF FLAG SCAN; Mean Corpuscular HGB Conc 35.2 g/dl (31.0-36.0); Mean Corpuscular Hemoglobin 30.3 pg (27.0-33.0); Mean Corpuscular Volume 86.1 fL (80.0-98.0); Monocytes Absolute Auto 1.4 X10*3/uL (0.1-1.2); Monocytes Percent Auto 5.9 % (2-11); Neutrophils Absolute Auto 21.5 x10*3/uL (2.0-8.3); Platelet Count 356 X10*3/uL (160-400); Red Blood Count 4.59 X10*6/uL (4.60-5.80); SCAN SMEAR FLAG 1; White Blood Count 23.6 X10*3/uL (4.8-10.8)
--- NOTE | 2024-05-10 17:14 | PC.NURSE ---
patient arrives with gabapentin and prozosin in bag. counted and given to pharmacy to be kept in pharmacy until DC. patient shaky upon arrival. last drink last night. dr dick at bedside at this time.
[2024-05-10 17:31] LABS: Alanine Aminotransferase 162 U/L (0-40); Albumin Level 4.8 g/dL (3.5-5.0); Alkaline Phosphatase 80 U/L (39-117); Anion Gap 13 (12-20); Aspartate Amino Transferase 463 U/L (5-37); Bilirubin Direct 0.2 mg/dL (0.0-0.5); Bilirubin Total 0.8 mg/dL (0.0-1.0); Blood Urea Nitrogen 22 mg/dL (9-16); Calcium 9.3 mg/dL (8.4-10.2); Carbon Dioxide 26 mmol/L (22-29); Chloride 102 mmol/L (96-108); Creatinine Clr Calc Pharmacy 98.5; Estimated Glomerular Filt Rate > 60; Ethanol < 10 mg/dL; Glucose Random 92 mg/dL (60-115); Potassium 3.6 mmol/L (3.3-5.1); Sodium 137 mmol/L (135-145); Total Protein 7.9 g/dL (6.5-8.0)
[2024-05-10 17:34] LABS: SLIDE REVIEW VERIFIED
[2024-05-10] MEDS: 0.9 % Sodium Chloride 1,000 ML 999 ML IV ×2 (17:53→21:01)
[2024-05-10] MEDS: LORazepam 2 MG/ML VIAL IVPUSH (17:53)
[2024-05-10 18:01] LABS: Magnesium 2.6 mg/dL (1.6-2.6)
[2024-05-10] MEDS: cefTRIAXone sodium 2 GM VIAL IVPUSH (18:20)
[2024-05-10 18:23] VITALS: BP 116/65; PULSE 84; RESP 15; TEMP 36.9; O2SAT 98
--- NOTE | 2024-05-10 19:02 | PC.NURSE ---
reports feeling better after ativan. last ETOH was yest evening.
[2024-05-10 19:57] VITALS: BP 123/72; PULSE 92; RESP 13; TEMP 36.9; O2SAT 99
[2024-05-10] MEDS: LORazepam 1 MG TABLET 2 MG PO (20:03)
[2024-05-10 20:13] LABS: Reflex Lactate? Lactic Acid Added
[2024-05-10] MEDS: iohexoL 350 MG/ML 100 ML INFUS..BTL 85 ML IV (20:26)
--- NOTE | 2024-05-10 20:39 | MHC.EDTECH ---
PT refusing blood draw for repeat lactic acid until he is given his suboxone
[2024-05-10 20:46] LABS: Appearance Urine Clear; Color Urine Yellow; Glucose Urine UA Negative (Negative); Leukocyte Esterase Urine Negative (Negative); Nitrite Urine Negative (Negative); PH 6.5 (5.0-9.0); Specific Gravity - Urine 1.025 (1.005-1.025); UMIC TRIGGER UACC YES; Urine Blood Moderate (2+) (Negative); Urine Ketones 15 mg/dL (Negative); Urine Protein Trace mg/dL (Neg-Trace)
[2024-05-10 20:58] LABS: Bacteria Urine None Seen (None Seen); Hyaline Casts Urine 0-2 /LPF (0-2); RBC Urine 0-2 /HPF (0-2); Squamous Epithelial Cell Urine 0-2 /HPF (0-2); WBC Urine 0-5 /HPF (0-5)
[2024-05-10 21:01] LABS: Amphetamine Screen Urine Not Detected (Not Detect); Barbiturates, Urine Not Detected (Not Detect); Benzodiazepines Screen Urine Not Detected (Not Detect); Buprenorphine Scr Positive (Not Detect); Cannabinoid Screen Urine POSITIVE (Not Detect); Cocaine Screen Urine POSITIVE (Not Detect); Fentanyl, urine Not Detected (Not Detect); Methadone Screen, Urine Not Detected (Not Detect); Opiate Screen Urine Not Detected (Not Detect); Oxycodone Screen Urine Not Detected (Not Detect); Phencyclidine Screen Urine Not Detected (Not Detect)
[2024-05-10] MEDS: Buprenorphine/Naloxone 8/2 mg FILM 1 FILM SUBLINGUAL (21:30)
--- NOTE | 2024-05-10 21:33 | PC.NURSE ---
Pt medicated with suboxone. Pt appreciative and hoping to sleep
--- NOTE | 2024-05-10 22:27 | PHA.MEDREC ---
Addendum entered by Aimee Ley RPh 05/10/24 22:52: Med rec was reviewed by [facility]. Original Note: Pharmacy Consult ? Medication Reconciliation Pharmacy has completed the medication reconciliation. Spoke with patient and he was very pleasant to speak with and was able to confirm his medications with me. He confirmed he is taking the Suboxone 8-2mg films and confirmed he is taking 2 films in the morning and 1 film in the early afternoon. He also confirmed he is no longer taking the Metformin 500mg tab and states he stopped it 1 month ago due to it counter acting with the Quetiapine 100mg and making his metabolism all messed up so the patient stopped the Metformin to help it. He also confirmed He is still taking the Zolpidem 10mg tab once at bedtime as needed for insomnia and confirmed he fills it at [facility] with his other medications. He confirmed his Trazodone 100mg tab and confirmed he takes 2 tabs at bedtime. Patient also confirmed he is still taking Bupropion but states he is now only taking 300mg daily. He confirmed he has not taken any of his medications since Friday Morning.
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
[2024-05-10] MEDS: Enoxaparin Sodium 40 MG/0.4 ML SYRINGE SUBCUT (23:12)
[2024-05-10] MEDS: Thiamine HCL 200 MG in 0.9 % Sodium Chloride 100 ML 204 MG IV (23:12)
[2024-05-10] MEDS: diazePAM 10 MG/2 ML CARTRIDGE IVPUSH (23:16)
[2024-05-10] MEDS: Methylphenidate HCl 10 MG TABLET 20 MG PO (23:27)
[2024-05-10 23:28] VITALS: BP 123/72
[2024-05-10 23:28] LABS: ~Lactic Acid-LAB USE ONLY 2.5 mmol/L (0.5-2.0)
[2024-05-10] MEDS: Prazosin HCL 1 MG CAPSULE 5 MG PO (23:28)
[2024-05-10] MEDS: Melatonin 3 MG TABLET 6 MG PO (23:31)
[2024-05-10] MEDS: Zolpidem Tartrate 5 MG TABLET 10 MG PO (23:31)
[2024-05-10] MEDS: traZODone HCL 100 MG TABLET 200 MG PO (23:31)
[2024-05-10] MEDS: Gabapentin 400 MG CAPSULE 800 MG PO (23:31)
[2024-05-10 23:32] LABS: Cancel Lactic Acid Canceled
[2024-05-11] VITALS (8 sets, daily range): BP systolic 99–136; BP diastolic 52–66; PULSE 71–94; RESP 14–22; TEMP 36.4–37.1; O2SAT 95–98; BMI 27.7
[2024-05-11] MEDS: LORazepam 1 MG TABLET 2 MG PO ×4 (00:02→14:09)
[2024-05-11] MEDS: diazePAM 10 MG/2 ML CARTRIDGE IVPUSH ×3 (05:23→17:20)
--- NOTE | 2024-05-11 07:44 | P.PNIM_ITS ---
Subjective Subjective Date of Service: 05/11/24 Interval History: f/u on depression, si interval history: denies si at moment Physical Exam 2 Vital Signs: Vital Signs: Last Vital Signs Temp 97.8 F 05/11/24 02:16 Pulse 71 05/11/24 04:34 Resp 14 05/11/24 04:34 BP 99/52 L 05/11/24 04:34 Pulse Ox 95 05/11/24 04:34 O2 Del Method Room Air 05/11/24 04:34 BMI result Body Mass Index 27.7 General: AO X 3, no acute distress Resp: CTA bilateral CVS: S1,S2,RRR GI: +BS, NT, no distention Skin: No rash Neuro: motor grossly intact Psych: appropriate affect Const: Other: General: AO X 3, no acute distress Resp: CTA bilateral CVS: S1,S2,RRR GI: +BS, NT, no distention Skin: No rash Neuro: motor grossly intact Psych: appropriate affect Objective Data Active Medications Acetaminophen (Acetaminophen 325 Mg Tablet) 650 mg PO Q6H PRN PRN Reason: Pain, Mild (Pain Scale 1-3), fever or headache Buprenorphine/Naloxone (Buprenorphine/Naloxone 8/2 Mg Film) 1 film SUBLINGUAL DAILY@1330 [facility] Buprenorphine/Naloxone (Buprenorphine/Naloxone 8/2 Mg Film) 2 film SUBLINGUAL DAILY [facility] Bupropion HCl (Bupropion Hcl Xl 300 Mg Tab.Er.24h) 300 mg PO DAILY [facility] Calcium Carbonate (Calcium Carbonate 750 Mg Tab.Chew) 750 mg PO Q4H PRN PRN Reason: Heartburn Diazepam (Diazepam 10 Mg/2 Ml Cartridge) 10 mg IVPUSH Q4H PRN PRN Reason: Breakthrough alcohol withdrawa Diazepam (Diazepam 10 Mg/2 Ml Cartridge) 10 mg IVPUSH Q6H [facility] Stop: 05/11/24 17:01 Last Admin: 05/11/24 05:23 Dose: 10 mg Documented By: CLAY Enoxaparin Sodium (Enoxaparin Sodium 40 Mg/0.4 Ml Syringe) 40 mg SUBCUT Q24H [facility] Last Admin: 05/10/24 23:12 Dose: 40 mg Documented By: CLAY Gabapentin (Gabapentin 400 Mg Capsule) 800 mg PO TID [facility] Last Admin: 05/10/24 23:31 Dose: 800 mg Documented By: CLAY Lorazepam (Lorazepam 1 Mg Tablet) 2 mg PO RQ4H WHILE AWAKE PRN PRN Reason: Alcohol Withdrawal Last Admin: 05/11/24 00:02 Dose: 2 mg Documented By: CLAY Magnesium Hydroxide (Milk Of Magnesia 30 Ml Oral.Susp) 30 ml PO DAILY PRN PRN Reason: Constipation Melatonin (Melatonin 3 Mg Tablet) 6 mg PO BEDTIME PRN PRN Reason: Insomnia Last Admin: 05/10/24 23:31 Dose: 6 mg Documented By: CLAY Methylphenidate HCl (Methylphenidate Hcl 10 Mg Tablet) 20 mg PO BID [facility] Last Admin: 05/10/24 23:27 Dose: 20 mg Documented By: CLAY Nicotine (Nicotine 21 Mg Patch.Td24) 21 mg TRANSDERMA DAILY [facility] Ondansetron HCl (Ondansetron Hcl 4 Mg/2 Ml Vial) 4 mg IVPUSH Q8H PRN PRN Reason: Nausea and Vomiting Prazosin HCl (Prazosin Hcl 1 Mg Capsule) 5 mg PO BEDTIME [facility]; Protocol Last Admin: 05/10/24 23:28 Dose: 5 mg Documented By: CLAY Quetiapine Fumarate (Quetiapine Fumarate 100 Mg Tablet) 100 mg PO DAILY [facility] Sodium Chloride (0.9 % Sodium Chloride Flush 3 Ml Syringe) 3 ml IVFLUSH QSHIFT [facility] Last Admin: 05/11/24 01:02 Dose: Not Given Documented By: CLAY Non-Admin Reason: IV Running Thiamine HCl (Thiamine Hcl 100 Mg Tablet) 100 mg PO DAILY [place] Trazodone HCl (Trazodone Hcl 100 Mg Tablet) 200 mg PO BEDTIME [facility] Last Admin: 05/10/24 23:31 Dose: 200 mg Documented By: CLAY Zolpidem Tartrate (Zolpidem Tartrate 5 Mg Tablet) 10 mg PO BEDTIME PRN PRN Reason: Insomnia Last Admin: 05/10/24 23:31 Dose: 10 mg Documented By: CLAY Labs 05/10/24 17:07 05/10/24 17:07 Labs: Laboratory Results - last 24 hr 05/10/24 05/10/24 05/10/24 17:07 18:07 20:37 MCV 86.1 MCH 30.3 MCHC 35.2 RDW 13.0 Plt Count 356 D MPV 10.0 Immature Gran % (Auto) 0.7 H Neut % (Auto) 91.0 H Lymph % (Auto) 2.3 L [place] % (Auto) 5.9 Eos % (Auto) 0.0 Baso % (Auto) 0.1 Lymph # (Auto) 0.6 L [place] # (Auto) 1.4 H Eos # (Auto) 0.0 Baso # (Auto) 0.0 Abs Immat Gran (auto) 0.16 H Absolute Neuts (auto) 21.5 H Absolute Nucleated RBC 0.000 Nucleated RBC % (auto) 0.0 Smear Tech's Comments VERIFIED Anion Gap 13 Estim Creat Clear Calc 98.5 Estimated GFR > 60 Random Glucose 92 Lactic Acid 2.7 H* Lactic Acid F/U @ 2Hr Calcium 9.3 D Magnesium 2.6 Total Bilirubin 0.8 Direct Bilirubin 0.2 AST 463 H ALT 162 H Alkaline Phosphatase 80 Total Protein 7.9 Albumin 4.8 Urine Color Yellow Urine Appearance Clear Urine pH 6.5 Ur Specific [place] 1.025 Urine Protein Trace Urine Glucose (UA) Negative Urine Ketones 15 Urine Blood Moderate (2+) H Urine Nitrite Negative Ur Leukocyte Esterase Negative Urine RBC 0-2 Urine WBC 0-5 Ur Squamous Epith Cells 0-2 Urine Bacteria None Seen Hyaline Casts 0-2 Urine Opiates Screen Not Detected Ur Buprenorphine Scrn Positive H Ur Oxycodone Screen Not Detected Urine Methadone Screen Not Detected Urine Fentanyl Screen Not Detected Ur Barbiturates Screen Not Detected Ur Phencyclidine Scrn Not Detected Ur Amphetamines Screen Not Detected U Benzodiazepines Scrn Not Detected Urine Cocaine Screen POSITIVE H U Marijuana (THC) Screen POSITIVE H Ethyl Alcohol < 10 05/10/24 23:05 MCV MCH MCHC RDW Plt Count MPV Immature Gran % (Auto) Neut % (Auto) Lymph % (Auto) [place] % (Auto) Eos % (Auto) Baso % (Auto) Lymph # (Auto) [place] # (Auto) Eos # (Auto) Baso # (Auto) Abs Immat Gran (auto) Absolute Neuts (auto) Absolute Nucleated RBC Nucleated RBC % (auto) Smear Tech's Comments Anion Gap Estim Creat Clear Calc Estimated GFR Random Glucose Lactic Acid Lactic Acid F/U @ 2Hr 2.5 H* Calcium Magnesium Total Bilirubin Direct Bilirubin AST ALT Alkaline Phosphatase Total Protein Albumin Urine Color Urine Appearance Urine pH Ur Specific [place] Urine Protein Urine Glucose (UA) Urine Ketones Urine Blood Urine Nitrite Ur Leukocyte Esterase Urine RBC Urine WBC Ur Squamous Epith Cells Urine Bacteria Hyaline Casts Urine Opiates Screen Ur Buprenorphine Scrn Ur Oxycodone Screen Urine Methadone Screen Urine Fentanyl Screen Ur Barbiturates Screen Ur Phencyclidine Scrn Ur Amphetamines Screen U Benzodiazepines Scrn Urine Cocaine Screen U Marijuana (THC) Screen Ethyl Alcohol Assessment and Plan (1) Major depression: Status: Acute (2) Suicidal ideation: Status: Acute Plan 53-year-old male with a past medical history significant for alcohol withdrawal with seizure and DTs requiring ICU admission years ago at [facility], substance use disorder (smokes crack), who presented to the ED with vague SI. SI - sitter - care team consult Alcohol use disorder/alcohol withdrawal/JENIFER - drinks 1 qt of liquor per day +/-1 6 pack, last drink yesterday - allergy to phenobarb, on benzos [place]/prn - seizure precautions - CIWA scale Q4H - thiamine 1 dose IV, continue p.o. daily - continue buprenorphine for JENIFER - addiction med consult Diarrhea - leukocytosis, lactate 1.1, likely related to alcoholism, no sepsis - GI panel and C diff Elevated LFTs - likely related to alcoholism - follow CMP, outpatient follow up, no symptoms Tobacco abuse - smoking cessation discussed - nicotine patch daily Full code VTE prophylaxis: Lovenox Quality Stroke Does the patient have a stroke diagnosis?: No VTE Prior VTE?: No VTE Risk Level:: Medical - moderate - high VTE Device Contraindication: Treatment Not Indicated VTE Drug Contraindication: N/A - Med Ordered
[2024-05-11 08:19] LABS: Lactic Acid 2.7 mmol/L (0.5-2.0)
[2024-05-11] MEDS: Gabapentin 400 MG CAPSULE 800 MG PO ×3 (08:33→20:19)
[2024-05-11] MEDS: Buprenorphine/Naloxone 8/2 mg FILM 2 FILM SUBLINGUAL (08:33)
[2024-05-11] MEDS: Thiamine HCL 100 MG TABLET PO (08:33)
[2024-05-11] MEDS: QUEtiapine Fumarate 100 MG TABLET PO (08:33)
[2024-05-11] MEDS: Methylphenidate HCl 10 MG TABLET 20 MG PO ×2 (08:33→20:55)
[2024-05-11] MEDS: Nicotine 21 MG PATCH.TD24 TRANSDERMA (08:34)
[2024-05-11] MEDS: 0.9 % Sodium Chloride Flush 3 ML SYRINGE IVFLUSH ×2 (08:36→17:20)
[2024-05-11] MEDS: buPROPion HCl XL 300 MG TAB.ER.24H PO (08:42)
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
--- NOTE | 2024-05-11 13:45 | MHC.CM.PN ---
pt was living in a residential setting at [facility] he left last fri dc plan at this pt is tbd
[2024-05-11 14:04] LABS: MANUAL DIFF FLAG NO
[2024-05-11 14:08] LABS: Basophils Percent Auto 0.9 % (0-2); Eosinophils Absolute Auto 0.1 X10*3/uL (0.0-0.4); Eosinophils Percent Auto 1.5 % (0-4); Hematocrit 33.1 % (42.0-52.0); Hemoglobin 11.6 g/dl (14.0-18.0); Imm Gran Abs Auto 0.04 X10*3/uL (0.00-0.03); Imm Gran Pct Auto 0.9 % (0.0-0.4); Lymphocytes Absolute Auto 1.1 X10*3/uL (1.2-4.9); Lymphocytes Percent Auto 24.1 % (20-40); Mean Corpuscular Hemoglobin 30.6 pg (27.0-33.0); Mean Corpuscular Volume 87.3 fL (80.0-98.0); Mean Platelet Volume 10.5 fL (9.4-12.4); Monocytes Absolute Auto 0.6 X10*3/uL (0.1-1.2); Monocytes Percent Auto 12.9 % (2-11); Neutrophils Absolute Auto 2.7 x10*3/uL (2.0-8.3); Neutrophils Percent Auto 59.7 % (45-73); Platelet Count 186 X10*3/uL (160-400); Red Blood Count 3.79 X10*6/uL (4.60-5.80); Red Cell Distribution Width 13.3 % (11.0-16.0); White Blood Count 4.6 X10*3/uL (4.8-10.8)
[2024-05-11] MEDS: Buprenorphine/Naloxone 8/2 mg FILM 1 FILM SUBLINGUAL (14:10)
[2024-05-11 14:30] LABS: Albumin Level 3.5 g/dL (3.5-5.0); Anion Gap 13 (12-20); Aspartate Amino Transferase 217 U/L (5-37); Bilirubin Direct 0.1 mg/dL (0.0-0.5); Bilirubin Total 0.3 mg/dL (0.0-1.0); Blood Urea Nitrogen 10 mg/dL (9-16); Calcium 8.1 mg/dL (8.4-10.2); Carbon Dioxide 24 mmol/L (22-29); Chloride 106 mmol/L (96-108); Creatinine Clr Calc Pharmacy 123.7; Estimated Glomerular Filt Rate > 60; Glucose Random 129 mg/dL (60-115); Potassium 3.5 mmol/L (3.3-5.1); Sodium 139 mmol/L (135-145); Total Protein 5.5 g/dL (6.5-8.0)
[2024-05-11 14:48] LABS: Alanine Aminotransferase 115 U/L (0-40); Alkaline Phosphatase 63 U/L (39-117)
--- NOTE | 2024-05-11 15:32 | MHC.CARE ---
Patient evaluated by the CARE Team, recommended disposition is inpatient psychiatric treatment. Medical provider, Dr. [place] updated
--- NOTE | 2024-05-11 15:52 | PC.NURSE ---
Assumed care of patient at 0700. Alert and oriented. Ativan PRN given as ordered with good effect. Patient resting comfortably at this time.
--- NOTE | 2024-05-11 15:54 | PC.NURSE ---
Patient requesting Ritalin to be given at 0800 and 1400, pharmacy rescheduled dosing for 05/12 to start at 0800, pharmacy states one time dose needs to be entered by provider to give earlier for today, MD made aware.
--- NOTE | 2024-05-11 18:41 | PC.NURSE ---
Patient arrived to unit in stretcher with sitter at bedside. Patient A&Ox4. Presenting with moderate anxiety. Calm and cooperative with plan of care. Awaiting admission orders at this time. Dr. Vinnie beasley.
[2024-05-11] MEDS: traZODone HCL 100 MG TABLET 200 MG PO (20:16)
[2024-05-11] MEDS: Prazosin HCL 1 MG CAPSULE 5 MG PO (20:19)
[2024-05-11] MEDS: Zolpidem Tartrate 5 MG TABLET 10 MG PO (20:19)
[2024-05-11] MEDS: Enoxaparin Sodium 40 MG/0.4 ML SYRINGE SUBCUT (20:36)
[2024-05-11] MEDS: LORazepam 2 MG/ML VIAL IVPUSH (21:01)
[2024-05-11] MEDS: diazePAM 2 MG TABLET PO (23:03)
--- NOTE | 2024-05-12 | ECG_ITS ---
Test Reason : check for qtc Blood Pressure : / mmHG Vent. Rate : 080 BPM Atrial Rate : 080 BPM P-R Int : 130 ms QRS Dur : 096 ms QT Int : 406 ms P-R-T Axes : 056 010 045 degrees QTc Int : 468 ms Normal sinus rhythm Normal ECG When compared with ECG of 10-MAY-2024 19:06, No significant change was found Referred By: [facility] Electronically Signed By:ZULEYKA BURGOS
[2024-05-12 03:44] VITALS: BP 119/67; PULSE 73; RESP 18; TEMP 36.7; O2SAT 97
[2024-05-12] MEDS: traMADoL HCL 50 MG TABLET PO (04:04)
--- NOTE | 2024-05-12 04:06 | PC.NURSE ---
pt c/o 03/04 back pain.pt had nothing ordered for pain. notified and a 1x order for tramadol 50mg po ordered.
[2024-05-12 06:57] VITALS: BP 124/60; PULSE 79; RESP 16; TEMP 36.9; O2SAT 96
--- NOTE | 2024-05-12 08:11 | P.DS_ITS ---
DS: Providers Provider Date of Service: 05/12/24 Date of admission: 05/10/24 22:39 Date of discharge: 05/12/24 Primary care physician: Gonzales Rust MD DS: Diagnosis Discharge Diagnosis (1) Alcohol use disorder: Status: Chronic DS: Summary Hospital Course Hospital Course: admission hpi Patient is a 53-year-old male with a past medical history significant for alcohol withdrawal with seizure and DTs requiring ICU admission years ago at [facility], substance use disorder (smokes crack), who presented to the ED with vague SI. The patient has a history of a SI attempt in the past and reported that he came here as he did not wanted to get bad. He drinks 1 qt of liquor a day sometimes with an additional 6 pack of beer, last drink was yesterday. He also reports substance use disorder, smokes crack cocaine, last use 16:00 today. He has been cutting down on alcohol for the past 2 days. He reports recent episode of walking pneumonia treated with azithromycin 3 weeks ago. He has had a large amount of diarrhea anytime he has anything to eat or drink. He denies any hematochezia or abdominal pain hospital course: Depression with SI, Care team is recommending inpatient Psych treatment, he's agreable Alcohol use disorder/alcohol withdrawal/JENIFER--treated with Benzo, since he claim alergy to Benzo Diarrhea--no longer diarrhea, so could not collect sample Leukocytosis--24 to 4 the next day, reactive.. Elevated LFTs - likely related to alcoholism - follow CMP, outpatient follow up, no symptoms Tobacco abuse - smoking cessation discussed - nicotine patch daily Time Attestation Discharge Coordination Time (in mins): 35 Quality: Safe Use of Opioids Does Pt have an Active Cancer Diagnosis on the Problem List?: No Quality: Stroke Does the patient have a stroke diagnosis?: No Physical Exam Vital Signs: Vital Signs: Last Vital Signs Temp 98.4 F 05/12/24 06:57 Pulse 79 05/12/24 06:57 Resp 16 05/12/24 06:57 BP 124/60 05/12/24 06:57 Pulse Ox 96 05/12/24 06:57 O2 Del Method Room Air 05/12/24 06:57 BMI result Body Mass Index 27.7 General: AO X 3, no acute distress Resp: CTA bilateral CVS: S1,S2,RRR GI: +BS, NT, no distention Skin: No rash Neuro: motor grossly intact Psych: appropriate affect DS: Data Data Completed and Pending Completed studies during hospitalization [Text1]: Procedures Detoxification Services for Substance Abuse Treatment (01/30/24) Labs on day of discharge: Laboratory Results - last 24 hr 05/10/24 05/11/24 18:07 13:59 WBC 4.6 L RBC 3.79 L Hgb 11.6 L Hct 33.1 L MCV 87.3 MCH 30.6 MCHC 35.0 RDW 13.3 Plt Count 186 D MPV 10.5 Immature Gran % (Auto) 0.9 H Neut % (Auto) 59.7 Lymph % (Auto) 24.1 [place] % (Auto) 12.9 H Eos % (Auto) 1.5 Baso % (Auto) 0.9 Lymph # (Auto) 1.1 L [place] # (Auto) 0.6 Eos # (Auto) 0.1 Baso # (Auto) 0.0 Abs Immat Gran (auto) 0.04 H Absolute Neuts (auto) 2.7 Absolute Nucleated RBC 0.000 Nucleated RBC % (auto) 0.0 Sodium 139 Potassium 3.5 Chloride 106 Carbon Dioxide 24 Anion Gap 13 BUN 10 Creatinine 0.78 Estim Creat Clear Calc 123.7 Estimated GFR > 60 Random Glucose 129 H Lactic Acid 2.7 H* Calcium 8.1 L D Total Bilirubin 0.3 Direct Bilirubin 0.1 AST 217 H ALT 115 H Alkaline Phosphatase 63 Total Protein 5.5 L Albumin 3.5 Preliminary micro results at discharge 05/10/24 18:07 Blood Culture - Preliminary Blood - Venous No growth after 24 hours. 05/10/24 17:52 Blood Culture - Preliminary Blood - Venous No growth after 24 hours. Discharge Plan Discharge Anticipated Discharge Date/Time: 05/12/24 08:16 Patient Disposition: Xfer Psychiatric Hosp Discharge Diagnosis: Major depression with SI, alcohol withdrawal Referrals: Gonzales Rust MD [Primary Care Provider] - 1 Week Discharge Medications: Continued quetiapine 100 mg Tablet 100 mg PO DAILY Qty: 30 0RF prazosin 5 mg Capsule 5 mg PO BEDTIME Qty: 30 0RF Protocol: Hold for SBP< HOLD for SBP < : 90 trazodone 100 mg Tablet 200 mg PO BEDTIME Qty: 60 0RF Sodium Fluoride 1 appl PO BID Qty: 0 0RF gabapentin 800 mg tablet 800 mg PO TID Qty: 90 0RF methylphenidate HCl [Ritalin] 20 mg tablet 20 mg PO BID Qty: 60 0RF Rx Instructions: Partial Fill upon patient request. buprenorphine-naloxone [Suboxone] 8-2 mg Film 2 film sublingual DAILY buprenorphine-naloxone [Suboxone] 8-2 mg Film 1 film sublingual DAILY@1330 Rx Instructions: takes 1 film in afternoon zolpidem 10 mg Tablet 10 mg PO BEDTIME PRN (Reason: Insomnia) bupropion HCl 300 mg Tablet Extended Release 24 Hr 300 mg PO DAILY Diet: Advance to usual diet Activity on Discharge: As tolerated Stand Alone Forms: Patient Portal Discharge page Print Language: [place]an Care Plan Goals: recovery from alcohol withdrawal recovery from depression and si
[2024-05-12] MEDS: Methylphenidate HCl 10 MG TABLET 20 MG PO ×2 (08:44→13:39)
[2024-05-12] MEDS: QUEtiapine Fumarate 100 MG TABLET PO (08:44)
[2024-05-12] MEDS: Buprenorphine/Naloxone 8/2 mg FILM 2 FILM SUBLINGUAL (08:44)
[2024-05-12] MEDS: Gabapentin 400 MG CAPSULE 800 MG PO ×2 (08:44→14:54)
[2024-05-12] MEDS: diazePAM 2 MG TABLET PO ×2 (08:44→14:54)
[2024-05-12] MEDS: buPROPion HCl XL 300 MG TAB.ER.24H PO (08:44)
[2024-05-12] MEDS: LORazepam 2 MG/ML VIAL IVPUSH (09:17)
--- NOTE | 2024-05-12 13:17 | MHC.CM.PN ---
EMR REVIEWED AND PER MD ROUNDS, PT WILL DC TO INPATIENT PSYCH AT [facility] [place] LATER THIS AFTERNOON. CM CONTINUES TO FOLLOW
[2024-05-12] MEDS: Buprenorphine/Naloxone 8/2 mg FILM 1 FILM SUBLINGUAL (13:39)
[2024-05-12] MEDS: LORazepam 1 MG TABLET PO (13:39)
[2024-05-12 14:59] VITALS: BP 138/69; PULSE 96; RESP 18; TEMP 36.3; O2SAT 100
--- NOTE | 2024-05-12 16:12 | PC.NURSE ---
1610 patient transferred from S3 to M5 with MHA and security
== END 2024-05-12 16:01 | DRG 775 ==
LOC: HO.ED 17:35 → HO.EDOVER 22:44 → HO.S3 05-11 16:39
PROVIDERS: Physician Assistant; Physician Assistant Medical; Admitting Provider Student in an Organized Health Care Education/Training Program; Emergency Provider Internal Medicine; PCP Family Medicine; Visit Provider Internal Medicine
DX: F10.239 Alcohol dependence with withdrawal, unspecified (principal); R45.851 Suicidal ideations; F32.A Depression, unspecified; F17.210 Nicotine dependence, cigarettes, uncomplicated; R19.7 Diarrhea, unspecified; Z71.6 Tobacco abuse counseling; Z79.899 Other long term (current) drug therapy
CPT/HCPCS: 36415; 71045; 74177; 80048; 80076; 80307; 81001; 83605; 83735; 85025; 87040; 93005; 99285; J0696; J1650; J2060; J3360; J3411; Q9967; S9485

== ENCOUNTER → 2024-05-10 16:40 | Outpatient (BNV) | payer MEDICAID, SELFPAY | PROVIDERS: Admitting Provider Student in an Organized Health Care Education/Training Program; Emergency Provider Internal Medicine; PCP Family Medicine; Visit Provider Internal Medicine | DX: Z13.6 Encounter for screening for cardiovascular disorders (principal) | CPT/HCPCS: 93010 ==

== ENCOUNTER 2024-05-10 22:39 | Outpatient (BNV) | payer MEDICAID, SELFPAY | END 2024-05-12 14:32 | PROVIDERS: Admitting Provider Student in an Organized Health Care Education/Training Program; Emergency Provider Internal Medicine; PCP Family Medicine; Visit Provider Internal Medicine | DX: Z13.6 Encounter for screening for cardiovascular disorders (principal) | CPT/HCPCS: 93010 ==

== ENCOUNTER → 2024-05-10 22:39 | Outpatient (BNV) | payer MEDICAID, SELFPAY | PROVIDERS: Admitting Provider Student in an Organized Health Care Education/Training Program; Emergency Provider Internal Medicine; PCP Family Medicine; Visit Provider Physician Assistant | DX: R45.851 Suicidal ideations (principal); F10.90 Alcohol use, unspecified, uncomplicated; F14.90 Cocaine use, unspecified, uncomplicated; R19.7 Diarrhea, unspecified; R79.89 Other specified abnormal findings of blood chemistry; Z72.0 Tobacco use; F32.9 Major depressive disorder, single episode, unspecified | CPT/HCPCS: 99223; 99232 ==

== ENCOUNTER → 2024-05-10 22:39 | Outpatient (BNV) | payer MEDICAID, SELFPAY | PROVIDERS: Admitting Provider Student in an Organized Health Care Education/Training Program; Emergency Provider Internal Medicine; PCP Family Medicine; Visit Provider Nurse Practitioner Psychiatric/Mental Health | DX: F10.90 Alcohol use, unspecified, uncomplicated (principal) | CPT/HCPCS: 99232 ==

== ENCOUNTER 2024-05-12 16:04 | Inpatient (IN) | payer OTHER, SELFPAY ==
[2024-05-12 16:45] VITALS: BP 165/92; PULSE 88; RESP 18; TEMP 36.6; O2SAT 98
[2024-05-12] MEDS: LORazepam 1 MG TABLET 2 MG PO ×2 (16:54→20:47)
[2024-05-12 17:05] VITALS: BMI 28.6
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
--- NOTE | 2024-05-12 17:42 | PC.NURSE ---
Pt reports already being immunized this season for flu
[2024-05-12 19:46] LABS: Alanine Aminotransferase 135 U/L (0-40); Albumin Level 3.8 g/dL (3.5-5.0); Alkaline Phosphatase 68 U/L (39-117); Anion Gap 13 (12-20); Aspartate Amino Transferase 217 U/L (5-37); Bilirubin Total 0.3 mg/dL (0.0-1.0); Blood Urea Nitrogen 9 mg/dL (9-16); Carbon Dioxide 26 mmol/L (22-29); Chloride 103 mmol/L (96-108); Creatinine Clr Calc Pharmacy 125.4; Estimated Glomerular Filt Rate > 60; Glucose Random 132 mg/dL (60-115); Potassium 3.9 mmol/L (3.3-5.1); Sodium 138 mmol/L (135-145); Total Protein 6.3 g/dL (6.5-8.0)
[2024-05-12 20:00] VITALS: BP 143/71; PULSE 86; RESP 16; TEMP 36.8; O2SAT 97
[2024-05-12] MEDS: Gabapentin 400 MG CAPSULE 800 MG PO (20:45)
[2024-05-12] MEDS: traZODone HCL 100 MG TABLET 200 MG PO (20:46)
[2024-05-12] MEDS: Prazosin HCL 5 MG CAPSULE PO (20:46)
[2024-05-12] MEDS: Zolpidem Tartrate 5 MG TABLET 10 MG PO (20:50)
[2024-05-13] MEDS: Acetaminophen 325 MG TABLET 650 MG PO ×2 (09:08→20:16)
[2024-05-13] MEDS: buPROPion HCl XL 300 MG TAB.ER.24H PO (09:08)
[2024-05-13] MEDS: Thiamine HCL 100 MG TABLET PO (09:09)
[2024-05-13] MEDS: Methylphenidate HCl 10 MG TABLET 20 MG PO ×2 (09:09→13:48)
[2024-05-13] MEDS: QUEtiapine Fumarate 100 MG TABLET PO (09:09)
[2024-05-13] MEDS: LORazepam 1 MG TABLET PO ×3 (09:09→20:11)
[2024-05-13] MEDS: Gabapentin 400 MG CAPSULE 800 MG PO ×3 (09:10→20:11)
[2024-05-13] MEDS: Nicotine 21 MG PATCH.TD24 TRANSDERMA (09:10)
[2024-05-13] MEDS: Buprenorphine/Naloxone 8/2 mg FILM 2 FILM SUBLINGUAL (09:15)
[2024-05-13 09:17] VITALS: BP 120/71; PULSE 76; RESP 16; TEMP 36.7; O2SAT 97
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
[2024-05-13] MEDS: LORazepam 1 MG TABLET 2 MG PO (12:11)
[2024-05-13] MEDS: Buprenorphine/Naloxone 8/2 mg FILM 1 FILM SUBLINGUAL (13:49)
--- NOTE | 2024-05-13 14:36 | MHC.RECOVRN ---
AUDIT-C Brief Intervention Pt had a positive screen for unhealthy alcohol use on admission, subsequently met with t/w to discuss alcohol use and recovery supports/options. This fha underwriter met with patients to discuss current alcohol use and concerns related to increased risk of alcohol related problems.? Pt reports he has been drinking his whole life? but had a significant increase in use over the last two weeks.? He also returned to smoking crack and attributes this return to use due to stress around the holidays. Discussed how alcohol use has impacted health, including negative impact on relationships and overall medical well being. Withdrawal History:Pt reports past h/o severe seizures when W/D from ETOH.? Pt is currently receiving Ativan to help with W/D. Treatment History:? 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 His latest was the [facility] program where he was for 9 months.? He is currently attempting to get into [facility] in [place] where he has previously attended.? He is interested in their continuum of care for aftercare. Supports: Pt denies any support sx.? We discussed recovery coaching, AA/NA fellowship and sponsorship as potential supports. Discussed risk reduction strategies including drinking below the recommended limit. Provided pt with written resources including information on inpatient and outpatient treatment, KATIE, harm reduction, and recovery coaching. Pt plans to go to [facility] and attend their Acute program as well as their residential program.? Pt is on MOUD and plans to continue this. Pt provided with t/w contact information if questions or concerns arise. Denies other questions or concerns at this time.? T/W discussed the above assessment with ACS Director Mag Cano in [place] to pt?s recent crack relapse and possible tx for him.
[2024-05-13 19:32] VITALS: BP 195/84; PULSE 84; RESP 16; TEMP 36.7; O2SAT 96
[2024-05-13] MEDS: Prazosin HCL 5 MG CAPSULE PO (20:12)
[2024-05-13] MEDS: traZODone HCL 100 MG TABLET 200 MG PO (20:13)
[2024-05-13] MEDS: traZODone HCL 50 MG TABLET PO (20:14)
[2024-05-13] MEDS: Zolpidem Tartrate 5 MG TABLET PO (20:14)
[2024-05-14 07:43] VITALS: BP 130/67; PULSE 65; RESP 18; TEMP 37.6; O2SAT 95
[2024-05-14] MEDS: Gabapentin 400 MG CAPSULE 800 MG PO ×3 (08:41→20:16)
[2024-05-14] MEDS: buPROPion HCl XL 300 MG TAB.ER.24H PO (08:41)
[2024-05-14] MEDS: Methylphenidate HCl 10 MG TABLET 20 MG PO ×2 (08:41→13:04)
[2024-05-14] MEDS: LORazepam 1 MG TABLET PO ×3 (08:42→20:17)
[2024-05-14] MEDS: Thiamine HCL 100 MG TABLET PO (08:42)
[2024-05-14] MEDS: Buprenorphine/Naloxone 8/2 mg FILM 2 FILM SUBLINGUAL (08:43)
[2024-05-14] MEDS: QUEtiapine Fumarate 100 MG TABLET PO (08:43)
--- NOTE | 2024-05-14 09:09 | P.PNPSI_ITS ---
Subjective Subjective Date of Service: 05/14/24 Reason For Visit: crisis Subjective Notes: Conditional Voluntary Interim History: Active on unit, social with peers. patient reports feeling better than yesterday ; pt stated, I got good news that I can go back to [facility]. I would like to go back before Sukhdeep . Denies SI/HI/VH/AH. Plan for discharge on Friday if pt continues to improve. Medication Compliance: Yes Side effects from medications: No Attending Groups: Yes Review of Systems Constitutional: Reports as per HPI Eyes: Reports as per HPI Reports as per HPI Cardiovascular: Reports as per HPI Respiratory: Reports as per HPI Gastrointestinal: Reports as per HPI Genitourinary: Reports as per HPI Musculoskeletal: Reports as per HPI Skin/Breast: Reports as per HPI Reports as per HPI Psychiatric: Reports as per HPI Endocrine: Reports as per HPI Hematologic/Lymphatic: Reports as per HPI Allergic/Immunologic: Reports as per HPI Mental Status Exam Mental Status Exam Narrative: Pt is alert and oriented; behavior is cooperative; dressed in casual attire; mood is described as good ; eye contact appropriate; Speech is normal rate, volume and not pressured; thought process is organized and goal directed; Thought content is on tx; otherwise pertinent to relevant topics and without any delusional content, paranoid ideations or grandiosity; denies SI/HI/VH/AH. Diagnostics Vital Signs (24Hr): Vital Signs - 24 hr 05/13/24 09:17 05/13/24 19:32 05/14/24 07:43 Temperature 98.1 F 98.1 F 99.6 F Pulse Rate 76 84 65 Respiratory Rate 16 16 18 Blood Pressure 120/71 195/84 H 130/67 Pulse Oximetry 97 96 95 Oxygen Delivery Method Room Air Room Air Room Air BMI result Body Mass Index 28.6 Labs 05/12/24 19:15 Labs: Laboratory Results - last 48 hr 05/12/24 19:15 Sodium 138 Potassium 3.9 Chloride 103 Carbon Dioxide 26 Anion Gap 13 BUN 9 Creatinine 0.84 Estim Creat Clear Calc 125.4 Estimated GFR > 60 Random Glucose 132 H Calcium 9.0 D Total Bilirubin 0.3 AST 217 H ALT 135 H Alkaline Phosphatase 68 Total Protein 6.3 L Albumin 3.8 Medications Medications Current Medications Acetaminophen (Acetaminophen 325 Mg Tablet) 650 mg PO Q6H PRN PRN Reason: Headache/Pain Mild Scale (1-3) Last Admin: 05/13/24 20:16 Dose: 650 mg Al Hydroxide/Mg Hydroxide (Magnesium Hydrox/Alum Hydrox 30 Ml Oral.Susp) 30 ml PO Q6H PRN PRN Reason: Heartburn/Nausea Buprenorphine/Naloxone (Buprenorphine/Naloxone 8/2 Mg Film) 1 film SUBLINGUAL DAILY@1330 [facility] Last Admin: 05/13/24 13:49 Dose: 1 film Buprenorphine/Naloxone (Buprenorphine/Naloxone 8/2 Mg Film) 2 film SUBLINGUAL DAILY [facility] Last Admin: 05/14/24 08:43 Dose: 2 film Bupropion HCl (Bupropion Hcl Xl 300 Mg Tab.Er.24h) 300 mg PO DAILY [facility] Last Admin: 05/14/24 08:41 Dose: 300 mg Fluticasone Propionate (Fluticasone Propionate Nasal 16 Gm [place]) 1 spray NOSTRIL-B DAILY [facility] Last Admin: 05/14/24 08:46 Dose: Not Given Gabapentin (Gabapentin 400 Mg Capsule) 800 mg PO TID [facility] Last Admin: 05/14/24 08:41 Dose: 800 mg Hydroxyzine HCl (Hydroxyzine Hcl 25 Mg Tablet) 25 mg PO Q6H PRN PRN Reason: Anxiety Lorazepam (Lorazepam 1 Mg Tablet) 1 mg PO TID [facility] Stop: 05/15/24 09:00 Last Admin: 05/14/24 08:42 Dose: 1 mg Lorazepam (Lorazepam 1 Mg Tablet) 1 mg PO BID [facility] Stop: 05/16/24 21:00 Lorazepam (Lorazepam 0.5 Mg Tablet) 0.5 mg PO BID [facility] Stop: 05/18/24 09:00 Magnesium Hydroxide (Milk Of Magnesia 30 Ml Oral.Susp) 30 ml PO DAILY PRN PRN Reason: Constipation Methylphenidate HCl (Methylphenidate Hcl 10 Mg Tablet) 20 mg PO BID@0800,1400 [facility] Last Admin: 05/14/24 08:41 Dose: 20 mg Nicotine (Nicotine 21 Mg Patch.Td24) 21 mg TRANSDERMA DAILY [facility] Last Admin: 05/14/24 08:46 Dose: Not Given Nicotine Polacrilex (Nicotine Polacrilex 2 Mg Gum) 4 mg BUCCAL Q2H PRN PRN Reason: Nicotine Cravings Ondansetron HCl (Ondansetron Odt 8 Mg Tab.Rapdis) 8 mg TRANSLINGU Q12H PRN PRN Reason: Nausea and Vomiting Prazosin HCl (Prazosin Hcl 5 Mg Capsule) 5 mg PO BEDTIME [facility]; Protocol Last Admin: 05/13/24 20:12 Dose: 5 mg Quetiapine Fumarate (Quetiapine Fumarate 100 Mg Tablet) 100 mg PO DAILY [facility] Last Admin: 05/14/24 08:43 Dose: 100 mg Thiamine HCl (Thiamine Hcl 100 Mg Tablet) 100 mg PO DAILY [facility] Last Admin: 05/14/24 08:42 Dose: 100 mg Trazodone HCl (Trazodone Hcl 50 Mg Tablet) 50 mg PO BEDTIME MRX1 PRN PRN Reason: Insomnia Last Admin: 05/13/24 20:14 Dose: 50 mg Trazodone HCl (Trazodone Hcl 100 Mg Tablet) 200 mg PO BEDTIME [facility] Last Admin: 05/13/24 20:13 Dose: 200 mg Zolpidem Tartrate (Zolpidem Tartrate 5 Mg Tablet) 5 mg PO BEDTIME PRN PRN Reason: Insomnia Last Admin: 05/13/24 20:14 Dose: 5 mg Allergies Allergies Allergy/AdvReac Type Severity Reaction Status Date / Time ketamine AdvReac Severe Agitated Verified 05/10/24 16:37 phenobarbital AdvReac Vomiting Verified 05/10/24 16:37 Assessment & Plan Assessment & Plan (1) MDD (major depressive disorder), recurrent episode, severe: Status: Acute Code(s): F33.2 - Major depressive disorder, recurrent severe without psychotic features (2) Chronic post-traumatic stress disorder (PTSD): Status: Acute Code(s): F43.12 - Post-traumatic stress disorder, chronic (3) Alcohol use disorder: Status: Acute Code(s): F10.90 - Alcohol use, unspecified, uncomplicated (4) Crack cocaine use: Status: Acute Code(s): F14.90 - Cocaine use, unspecified, uncomplicated Plan Patient is a 53-year-old male with history of MDD, PTSD, TBI, cocaine use disorder and alcohol use disorder who self presented to [facility] due to suicidal ideation secondary to relapsing on alcohol and crack cocaine which increased his depressive symptoms. Plan: CV 15 minute safety checks Ativan taper Continue home medications Obtain collateral Encourage groups Discharge planning 05/14: Active on unit, social with peers. patient reports feeling better than yesterday ; pt stated, I got good news that I can go back to [facility]. I would like to go back before [place] . Denies SI/HI/VH/AH. Plan for discharge on Friday if pt continues to improve. Patient educated on: diagnosis, medication risk/benefits and therapeutic strategies Reason for continued inpatient stay Substantial Risk for: med/psych decompensation Time Spent With Patient Time: Total time managing care of this patient today _20___ minutes.
[2024-05-14] MEDS: Buprenorphine/Naloxone 8/2 mg FILM 1 FILM SUBLINGUAL (13:04)
[2024-05-14 15:57] LABS: MANUAL DIFF FLAG NO
[2024-05-14 16:03] LABS: Basophils Percent Auto 0.8 % (0-2); Eosinophils Absolute Auto 0.3 X10*3/uL (0.0-0.4); Eosinophils Percent Auto 5.7 % (0-4); Hemoglobin 12.1 g/dl (14.0-18.0); Imm Gran Abs Auto 0.01 X10*3/uL (0.00-0.03); Imm Gran Pct Auto 0.2 % (0.0-0.4); Lymphocytes Absolute Auto 1.4 X10*3/uL (1.2-4.9); Lymphocytes Percent Auto 26.4 % (20-40); Mean Corpuscular HGB Conc 34.6 g/dl (31.0-36.0); Mean Corpuscular Hemoglobin 30.5 pg (27.0-33.0); Mean Corpuscular Volume 88.2 fL (80.0-98.0); Mean Platelet Volume 10.6 fL (9.4-12.4); Monocytes Absolute Auto 0.5 X10*3/uL (0.1-1.2); Monocytes Percent Auto 9.8 % (2-11); Neutrophils Absolute Auto 2.9 x10*3/uL (2.0-8.3); Neutrophils Percent Auto 57.1 % (45-73); Platelet Count 243 X10*3/uL (160-400); Red Blood Count 3.97 X10*6/uL (4.60-5.80); White Blood Count 5.1 X10*3/uL (4.8-10.8)
[2024-05-14 16:06] LABS: Ammonia 50 umol/L (13-55)
[2024-05-14 16:18] LABS: Anion Gap 14 (12-20); Aspartate Amino Transferase 94 U/L (5-37); Bilirubin Direct < 0.2 mg/dL (0.0-0.5); Bilirubin Total 0.2 mg/dL (0.0-1.0); Blood Urea Nitrogen 12 mg/dL (9-16); Calcium 9.2 mg/dL (8.4-10.2); Carbon Dioxide 25 mmol/L (22-29); Chloride 106 mmol/L (96-108); Creatinine Clr Calc Pharmacy 130.1; Estimated Glomerular Filt Rate > 60; Glucose Random 102 mg/dL (60-115); Potassium 4.3 mmol/L (3.3-5.1); Sodium 141 mmol/L (135-145); Total Protein 6.7 g/dL (6.5-8.0)
[2024-05-14 17:10] LABS: Alanine Aminotransferase 118 U/L (0-40); Alkaline Phosphatase 66 U/L (39-117)
[2024-05-14 20:00] VITALS: BP 125/84; PULSE 84; RESP 14; TEMP 36.5; O2SAT 97
[2024-05-14] MEDS: traZODone HCL 100 MG TABLET 200 MG PO (20:18)
[2024-05-14] MEDS: Acetaminophen 325 MG TABLET 650 MG PO (20:18)
[2024-05-14] MEDS: Prazosin HCL 5 MG CAPSULE PO (20:18)
[2024-05-14] MEDS: traZODone HCL 50 MG TABLET PO (20:19)
[2024-05-14] MEDS: Zolpidem Tartrate 5 MG TABLET 10 MG PO (20:19)
--- NOTE | 2024-05-15 08:23 | HO.PSYCHPN ---
Subjective Subjective Date of Service: 05/15/24 Reason For Visit: crisis Subjective Notes: Conditional Voluntary Interim History: Pt slept through the night. He reports ambien very helpful. He reports mood is good. He does ask to increase wellbutrin to 450mg po daily. No SI/HI. He reports looking forward to go to [facility]. No behavioral concerns. Review of Systems Constitutional: Reports as per HPI Eyes: Reports as per HPI Reports as per HPI Cardiovascular: Reports as per HPI Respiratory: Reports as per HPI Gastrointestinal: Reports as per HPI Genitourinary: Reports as per HPI Musculoskeletal: Reports as per HPI Skin/Breast: Reports as per HPI Reports as per HPI Psychiatric: Reports as per HPI Endocrine: Reports as per HPI Hematologic/Lymphatic: Reports as per HPI Allergic/Immunologic: Reports as per HPI Mental Status Exam Mental Status Exam Narrative: Pt is alert and oriented x 3; behavior is cooperative; dressed in casual attire; mood is described as good ; eye contact appropriate; Speech is normal rate, volume and not pressured; thought process is organized and goal directed; Thought content is on tx; otherwise pertinent to relevant topics and without any delusional content, paranoid ideations or grandiosity; denies SI/HI/VH/AH. Diagnostics Vital Signs (24Hr): Vital Signs - 24 hr 05/14/24 20:00 Temperature 97.7 F Pulse Rate 84 Respiratory Rate 14 Blood Pressure 125/84 Pulse Oximetry 97 Oxygen Delivery Method Room Air BMI result Body Mass Index 28.6 Labs 05/14/24 15:36 05/14/24 15:36 Labs: Laboratory Results - last 48 hr 05/14/24 15:36 WBC 5.1 RBC 3.97 L Hgb 12.1 L Hct 35.0 L MCV 88.2 MCH 30.5 MCHC 34.6 RDW 13.0 Plt Count 243 D MPV 10.6 Immature Gran % (Auto) 0.2 Neut % (Auto) 57.1 Lymph % (Auto) 26.4 [place] % (Auto) 9.8 Eos % (Auto) 5.7 H Baso % (Auto) 0.8 Lymph # (Auto) 1.4 [place] # (Auto) 0.5 Eos # (Auto) 0.3 Baso # (Auto) 0.0 Abs Immat Gran (auto) 0.01 Absolute Neuts (auto) 2.9 Absolute Nucleated RBC 0.000 Nucleated RBC % (auto) 0.0 Sodium 141 Potassium 4.3 Chloride 106 Carbon Dioxide 25 Anion Gap 14 BUN 12 Creatinine 0.81 Estim Creat Clear Calc 130.1 Estimated GFR > 60 Random Glucose 102 Calcium 9.2 Total Bilirubin 0.2 Direct Bilirubin < 0.2 AST 94 H ALT 118 H Alkaline Phosphatase 66 Ammonia 50 Total Protein 6.7 Albumin 4.0 Medications Medications Current Medications Acetaminophen (Acetaminophen 325 Mg Tablet) 650 mg PO Q6H PRN PRN Reason: Headache/Pain Mild Scale (1-3) Last Admin: 05/14/24 20:18 Dose: 650 mg Al Hydroxide/Mg Hydroxide (Magnesium Hydrox/Alum Hydrox 30 Ml Oral.Susp) 30 ml PO Q6H PRN PRN Reason: Heartburn/Nausea Buprenorphine/Naloxone (Buprenorphine/Naloxone 8/2 Mg Film) 1 film SUBLINGUAL DAILY@1330 [facility] Last Admin: 05/14/24 13:04 Dose: 1 film Buprenorphine/Naloxone (Buprenorphine/Naloxone 8/2 Mg Film) 2 film SUBLINGUAL DAILY [facility] Last Admin: 05/14/24 08:43 Dose: 2 film Bupropion HCl (Bupropion Hcl Xl 300 Mg Tab.Er.24h) 300 mg PO DAILY [facility] Last Admin: 05/14/24 08:41 Dose: 300 mg Fluticasone Propionate (Fluticasone Propionate Nasal 16 Gm [place]) 1 spray NOSTRIL-B DAILY [facility] Last Admin: 05/14/24 08:46 Dose: Not Given Gabapentin (Gabapentin 400 Mg Capsule) 800 mg PO TID [facility] Last Admin: 05/14/24 20:16 Dose: 800 mg Hydroxyzine HCl (Hydroxyzine Hcl 25 Mg Tablet) 25 mg PO Q6H PRN PRN Reason: Anxiety Lorazepam (Lorazepam 1 Mg Tablet) 1 mg PO TID [facility] Stop: 05/15/24 09:00 Last Admin: 05/14/24 20:17 Dose: 1 mg Lorazepam (Lorazepam 1 Mg Tablet) 1 mg PO BID [facility] Stop: 05/16/24 21:00 Lorazepam (Lorazepam 0.5 Mg Tablet) 0.5 mg PO BID [facility] Stop: 05/18/24 09:00 Magnesium Hydroxide (Milk Of Magnesia 30 Ml Oral.Susp) 30 ml PO DAILY PRN PRN Reason: Constipation Methylphenidate HCl (Methylphenidate Hcl 10 Mg Tablet) 20 mg PO BID@0800,1400 [facility] Last Admin: 05/14/24 13:04 Dose: 20 mg Nicotine (Nicotine 21 Mg Patch.Td24) 21 mg TRANSDERMA DAILY [facility] Last Admin: 05/14/24 08:46 Dose: Not Given Nicotine Polacrilex (Nicotine Polacrilex 2 Mg Gum) 4 mg BUCCAL Q2H PRN PRN Reason: Nicotine Cravings Ondansetron HCl (Ondansetron Odt 8 Mg Tab.Rapdis) 8 mg TRANSLINGU Q12H PRN PRN Reason: Nausea and Vomiting Prazosin HCl (Prazosin Hcl 5 Mg Capsule) 5 mg PO BEDTIME [facility]; Protocol Last Admin: 05/14/24 20:18 Dose: 5 mg Quetiapine Fumarate (Quetiapine Fumarate 100 Mg Tablet) 100 mg PO DAILY [facility] Last Admin: 05/14/24 08:43 Dose: 100 mg Thiamine HCl (Thiamine Hcl 100 Mg Tablet) 100 mg PO DAILY [facility] Last Admin: 05/14/24 08:42 Dose: 100 mg Trazodone HCl (Trazodone Hcl 50 Mg Tablet) 50 mg PO BEDTIME MRX1 PRN PRN Reason: Insomnia Last Admin: 05/14/24 20:19 Dose: 50 mg Trazodone HCl (Trazodone Hcl 100 Mg Tablet) 200 mg PO BEDTIME [facility] Last Admin: 05/14/24 20:18 Dose: 200 mg Zolpidem Tartrate (Zolpidem Tartrate 5 Mg Tablet) 10 mg PO BEDTIME PRN PRN Reason: Insomnia Last Admin: 05/14/24 20:19 Dose: 10 mg Allergies Allergies Allergy/AdvReac Type Severity Reaction Status Date / Time ketamine AdvReac Severe Agitated Verified 05/10/24 16:37 phenobarbital AdvReac Vomiting Verified 05/10/24 16:37 Assessment & Plan Assessment & Plan (1) MDD (major depressive disorder), recurrent episode, severe: Status: Acute Code(s): F33.2 - Major depressive disorder, recurrent severe without psychotic features (2) Chronic post-traumatic stress disorder (PTSD): Status: Acute Code(s): F43.12 - Post-traumatic stress disorder, chronic (3) Alcohol use disorder: Status: Acute Code(s): F10.90 - Alcohol use, unspecified, uncomplicated (4) Crack cocaine use: Status: Acute Code(s): F14.90 - Cocaine use, unspecified, uncomplicated Plan Patient is a 53-year-old male with history of MDD, PTSD, TBI, cocaine use disorder and alcohol use disorder who self presented to [facility] due to suicidal ideation secondary to relapsing on alcohol and crack cocaine which increased his depressive symptoms. Plan: CV 15 minute safety checks Ativan taper Continue home medications Obtain collateral Encourage groups Discharge planning 05/14: Active on unit, social with peers. patient reports feeling better than yesterday ; pt stated, I got good news that I can go back to [facility]. I would like to go back before S[facility] . Denies SI/HI/VH/AH. Plan for discharge on Friday if pt continues to improve. 05/15 continue tx. increase wellbutrin to 450mg po daily. Reason for continued inpatient stay Substantial Risk for: inability to function Time Spent With Patient Time: Total time managing care of this patient today ____ minutes.
[2024-05-15 08:53] VITALS: BP 140/71; PULSE 65; RESP 18; TEMP 36.7; O2SAT 95
[2024-05-15] MEDS: LORazepam 1 MG TABLET PO ×2 (08:57→20:06)
[2024-05-15] MEDS: Thiamine HCL 100 MG TABLET PO (08:57)
[2024-05-15] MEDS: Gabapentin 400 MG CAPSULE 800 MG PO ×3 (08:57→20:06)
[2024-05-15] MEDS: QUEtiapine Fumarate 100 MG TABLET PO (08:57)
[2024-05-15] MEDS: buPROPion HCl XL 300 MG TAB.ER.24H PO (08:57)
[2024-05-15] MEDS: Methylphenidate HCl 10 MG TABLET 20 MG PO ×2 (08:58→13:17)
[2024-05-15] MEDS: Nicotine 21 MG PATCH.TD24 TRANSDERMA (08:59)
[2024-05-15] MEDS: Buprenorphine/Naloxone 8/2 mg FILM 2 FILM SUBLINGUAL (08:59)
[2024-05-15] MEDS: Fluticasone Propionate Nasal 16 GM SPRAY 1 SPRAY NOSTRIL-B (11:12)
[2024-05-15] MEDS: Buprenorphine/Naloxone 8/2 mg FILM 1 FILM SUBLINGUAL (13:17)
[2024-05-15] MEDS: buPROPion HCl XL 150 MG TAB.ER.24H PO (14:04)
[2024-05-15 19:31] VITALS: BP 165/81; PULSE 74; RESP 16; TEMP 36.4; O2SAT 100
[2024-05-15] MEDS: Acetaminophen 325 MG TABLET 650 MG PO (20:07)
[2024-05-15] MEDS: traZODone HCL 100 MG TABLET 200 MG PO (20:07)
[2024-05-15] MEDS: traZODone HCL 50 MG TABLET PO (20:07)
[2024-05-15] MEDS: Zolpidem Tartrate 5 MG TABLET 10 MG PO (20:07)
[2024-05-15] MEDS: Prazosin HCL 5 MG CAPSULE PO (20:07)
[2024-05-16] MEDS: traZODone HCL 50 MG TABLET PO (01:37)
[2024-05-16 08:00] VITALS: BP 108/60; PULSE 54; RESP 14; TEMP 37.1; O2SAT 97
[2024-05-16] MEDS: LORazepam 1 MG TABLET PO ×2 (09:40→19:50)
[2024-05-16] MEDS: Gabapentin 400 MG CAPSULE 800 MG PO ×3 (09:40→19:50)
[2024-05-16] MEDS: buPROPion HCl XL 150 MG TAB.ER.24H 450 MG PO (09:40)
[2024-05-16] MEDS: Nicotine 21 MG PATCH.TD24 TRANSDERMA (09:41)
[2024-05-16] MEDS: Thiamine HCL 100 MG TABLET PO (09:41)
[2024-05-16] MEDS: Methylphenidate HCl 10 MG TABLET 20 MG PO ×2 (09:41→13:43)
[2024-05-16] MEDS: QUEtiapine Fumarate 100 MG TABLET PO (09:41)
[2024-05-16] MEDS: Buprenorphine/Naloxone 8/2 mg FILM 2 FILM SUBLINGUAL (09:42)
[2024-05-16] MEDS: Fluticasone Propionate Nasal 16 GM SPRAY 1 SPRAY NOSTRIL-B (09:42)
--- NOTE | 2024-05-16 10:48 | HO.PSYCHPN ---
Subjective Subjective Date of Service: 05/16/24 Reason For Visit: crisis Interim History: Pt slept through the night. He reports ambien very helpful. He reports mood is good. He does ask to increase wellbutrin to 450mg po daily. No SI/HI. He reports looking forward to go to [facility]. No behavioral concerns. Review of Systems Constitutional: Reports as per HPI Eyes: Reports as per HPI Reports as per HPI Cardiovascular: Reports as per HPI Respiratory: Reports as per HPI Gastrointestinal: Reports as per HPI Genitourinary: Reports as per HPI Musculoskeletal: Reports as per HPI Skin/Breast: Reports as per HPI Reports as per HPI Psychiatric: Reports as per HPI Endocrine: Reports as per HPI Hematologic/Lymphatic: Reports as per HPI Allergic/Immunologic: Reports as per HPI Mental Status Exam Mental Status Exam Narrative: Pt is alert and oriented x 3; behavior is cooperative; dressed in casual attire; mood is described as good ; eye contact appropriate; Speech is normal rate, volume and not pressured; thought process is organized and goal directed; Thought content is on tx; otherwise pertinent to relevant topics and without any delusional content, paranoid ideations or grandiosity; denies SI/HI/VH/AH. Diagnostics Vital Signs (24Hr): Vital Signs - 24 hr 05/15/24 19:31 05/16/24 08:00 Temperature 97.5 F 98.7 F Pulse Rate 74 54 Respiratory Rate 16 14 Blood Pressure 165/81 H 108/60 Pulse Oximetry 100 97 Oxygen Delivery Method Room Air Room Air BMI result Body Mass Index 28.6 Labs 05/14/24 15:36 05/14/24 15:36 Labs: Laboratory Results - last 48 hr 05/14/24 15:36 WBC 5.1 RBC 3.97 L Hgb 12.1 L Hct 35.0 L MCV 88.2 MCH 30.5 MCHC 34.6 RDW 13.0 Plt Count 243 D MPV 10.6 Immature Gran % (Auto) 0.2 Neut % (Auto) 57.1 Lymph % (Auto) 26.4 [place] % (Auto) 9.8 Eos % (Auto) 5.7 H Baso % (Auto) 0.8 Lymph # (Auto) 1.4 [place] # (Auto) 0.5 Eos # (Auto) 0.3 Baso # (Auto) 0.0 Abs Immat Gran (auto) 0.01 Absolute Neuts (auto) 2.9 Absolute Nucleated RBC 0.000 Nucleated RBC % (auto) 0.0 Sodium 141 Potassium 4.3 Chloride 106 Carbon Dioxide 25 Anion Gap 14 BUN 12 Creatinine 0.81 Estim Creat Clear Calc 130.1 Estimated GFR > 60 Random Glucose 102 Calcium 9.2 Total Bilirubin 0.2 Direct Bilirubin < 0.2 AST 94 H ALT 118 H Alkaline Phosphatase 66 Ammonia 50 Total Protein 6.7 Albumin 4.0 Medications Medications Current Medications Acetaminophen (Acetaminophen 325 Mg Tablet) 650 mg PO Q6H PRN PRN Reason: Headache/Pain Mild Scale (1-3) Last Admin: 05/15/24 20:07 Dose: 650 mg Al Hydroxide/Mg Hydroxide (Magnesium Hydrox/Alum Hydrox 30 Ml Oral.Susp) 30 ml PO Q6H PRN PRN Reason: Heartburn/Nausea Buprenorphine/Naloxone (Buprenorphine/Naloxone 8/2 Mg Film) 1 film SUBLINGUAL DAILY@1330 [facility] Last Admin: 05/15/24 13:17 Dose: 1 film Buprenorphine/Naloxone (Buprenorphine/Naloxone 8/2 Mg Film) 2 film SUBLINGUAL DAILY [facility] Last Admin: 05/16/24 09:42 Dose: 2 film Bupropion HCl (Bupropion Hcl Xl 150 Mg Tab.Er.24h) 450 mg PO DAILY [facility] Last Admin: 05/16/24 09:40 Dose: 450 mg Fluticasone Propionate (Fluticasone Propionate Nasal 16 Gm [place]) 1 spray NOSTRIL-B DAILY [facility] Last Admin: 05/16/24 09:42 Dose: 1 spray Gabapentin (Gabapentin 400 Mg Capsule) 800 mg PO TID [facility] Last Admin: 05/16/24 09:40 Dose: 800 mg Hydroxyzine HCl (Hydroxyzine Hcl 25 Mg Tablet) 25 mg PO Q6H PRN PRN Reason: Anxiety Lorazepam (Lorazepam 1 Mg Tablet) 1 mg PO BID [facility] Stop: 05/16/24 21:00 Last Admin: 05/16/24 09:40 Dose: 1 mg Lorazepam (Lorazepam 0.5 Mg Tablet) 0.5 mg PO BID [facility] Stop: 05/18/24 09:00 Magnesium Hydroxide (Milk Of Magnesia 30 Ml Oral.Susp) 30 ml PO DAILY PRN PRN Reason: Constipation Methylphenidate HCl (Methylphenidate Hcl 10 Mg Tablet) 20 mg PO BID@0800,1400 [facility] Last Admin: 05/16/24 09:41 Dose: 20 mg Nicotine (Nicotine 21 Mg Patch.Td24) 21 mg TRANSDERMA DAILY [facility] Last Admin: 05/16/24 09:41 Dose: 21 mg Nicotine Polacrilex (Nicotine Polacrilex 2 Mg Gum) 4 mg BUCCAL Q2H PRN PRN Reason: Nicotine Cravings Ondansetron HCl (Ondansetron Odt 8 Mg Tab.Rapdis) 8 mg TRANSLINGU Q12H PRN PRN Reason: Nausea and Vomiting Prazosin HCl (Prazosin Hcl 5 Mg Capsule) 5 mg PO BEDTIME FOUZIA; Protocol Last Admin: 05/15/24 20:07 Dose: 5 mg Quetiapine Fumarate (Quetiapine Fumarate 100 Mg Tablet) 100 mg PO DAILY FOUZIA Last Admin: 05/16/24 09:41 Dose: 100 mg Thiamine HCl (Thiamine Hcl 100 Mg Tablet) 100 mg PO DAILY FOUZIA Last Admin: 05/16/24 09:41 Dose: 100 mg Trazodone HCl (Trazodone Hcl 50 Mg Tablet) 50 mg PO BEDTIME MRX1 PRN PRN Reason: Insomnia Last Admin: 05/16/24 01:37 Dose: 50 mg Trazodone HCl (Trazodone Hcl 100 Mg Tablet) 200 mg PO BEDTIME FOUZIA Last Admin: 05/15/24 20:07 Dose: 200 mg Zolpidem Tartrate (Zolpidem Tartrate 5 Mg Tablet) 10 mg PO BEDTIME PRN PRN Reason: Insomnia Last Admin: 05/15/24 20:07 Dose: 10 mg Allergies Allergies Allergy/AdvReac Type Severity Reaction Status Date / Time ketamine AdvReac Severe Agitated Verified 05/10/24 16:37 phenobarbital AdvReac Vomiting Verified 05/10/24 16:37 Assessment & Plan Assessment & Plan (1) MDD (major depressive disorder), recurrent episode, severe: Status: Acute Code(s): F33.2 - Major depressive disorder, recurrent severe without psychotic features (2) Chronic post-traumatic stress disorder (PTSD): Status: Acute Code(s): F43.12 - Post-traumatic stress disorder, chronic (3) Alcohol use disorder: Status: Acute Code(s): F10.90 - Alcohol use, unspecified, uncomplicated (4) Crack cocaine use: Status: Acute Code(s): F14.90 - Cocaine use, unspecified, uncomplicated Plan Patient is a 53-year-old male with history of MDD, PTSD, TBI, cocaine use disorder and alcohol use disorder who self presented to [facility] due to suicidal ideation secondary to relapsing on alcohol and crack cocaine which increased his depressive symptoms. Plan: CV 15 minute safety checks Ativan taper Continue home medications Obtain collateral Encourage groups Discharge planning 05/14: Active on unit, social with peers. patient reports feeling better than yesterday ; pt stated, I got good news that I can go back to [facility]. I would like to go back before [place] . Denies SI/HI/VH/AH. Plan for discharge on Friday if pt continues to improve. 05/15 continue tx. increase wellbutrin to 450mg po daily. 05/16 continue tx. stable looking forward to go to [facility]. Reason for continued inpatient stay Substantial Risk for: inability to function Time Spent With Patient Time: Total time managing care of this patient today ____ minutes.
[2024-05-16] MEDS: Buprenorphine/Naloxone 8/2 mg FILM 1 FILM SUBLINGUAL (13:43)
[2024-05-16 19:50] VITALS: BP 156/82
[2024-05-16] MEDS: Zolpidem Tartrate 5 MG TABLET 10 MG PO (19:50)
[2024-05-16] MEDS: traZODone HCL 100 MG TABLET 200 MG PO (19:50)
[2024-05-16] MEDS: Prazosin HCL 5 MG CAPSULE PO (19:50)
[2024-05-16 20:00] VITALS: BP 156/82; PULSE 79; RESP 18; TEMP 36.6; O2SAT 99
[2024-05-17 07:47] VITALS: BP 107/56; PULSE 62; RESP 16; TEMP 37; O2SAT 95
[2024-05-17] MEDS: QUEtiapine Fumarate 100 MG TABLET PO (09:25)
[2024-05-17] MEDS: Thiamine HCL 100 MG TABLET PO (09:25)
[2024-05-17] MEDS: Methylphenidate HCl 10 MG TABLET 20 MG PO (09:25)
[2024-05-17] MEDS: buPROPion HCl XL 150 MG TAB.ER.24H 450 MG PO (09:25)
[2024-05-17] MEDS: LORazepam 0.5 MG TABLET PO (09:25)
[2024-05-17] MEDS: Gabapentin 400 MG CAPSULE 800 MG PO (09:25)
[2024-05-17] MEDS: Buprenorphine/Naloxone 8/2 mg FILM 2 FILM SUBLINGUAL (09:26)
[2024-05-17] MEDS: Nicotine 21 MG PATCH.TD24 TRANSDERMA (09:32)
--- NOTE | 2024-05-17 09:36 | PM.PSYDC ---
DS: Providers Provider Date of Service: 05/17/24 Date of admission: 05/12/24 16:04 Date of discharge: 05/17/24 Primary care physician: Unknown Physician Admitting clinician: Jelena Limon Attending physician on admission: Vic Campuzano Consults: 05/12/24 17:41 Addiction Medicine Routine Consulting Provider: Addiction Covering Reason for consultation: positive audit c Attending physician on discharge: Vic Campuzano Discharging clinician: Jelena Limon DS: Diagnosis Discharge Diagnosis (1) MDD (major depressive disorder), recurrent episode, severe: Status: Acute (2) Chronic post-traumatic stress disorder (PTSD): Status: Acute (3) Alcohol use disorder: Status: Acute (4) Crack cocaine use: Status: Acute DS: Medications Discharge Medications Home Medications: Home Medications ?Medication ?Instructions ?Recorded ?Confirmed buprenorphine 8 mg-naloxone 2 mg 1 film sublingual DAILY@1330 05/10/24 05/12/24 sublingual film (Suboxone) buprenorphine 8 mg-naloxone 2 mg 2 film sublingual DAILY 05/10/24 05/12/24 sublingual film (Suboxone) bupropion HCl 300 mg 24 hr tablet, 300 mg PO DAILY 05/10/24 05/12/24 extended release zolpidem 10 mg tablet 10 mg PO BEDTIME PRN Insomnia 05/10/24 05/12/24 methylphenidate HCl 20 mg tablet 20 mg PO BID@0800,1400 05/12/24 05/12/24 (Ritalin) Previous Rx's ?Medication ?Instructions ?Recorded gabapentin 800 mg tablet 800 mg PO TID #90 tabs 02/09/24 prazosin 5 mg capsule 5 mg PO BEDTIME #30 caps 02/09/24 quetiapine 100 mg tablet 100 mg PO DAILY #30 tabs 02/09/24 trazodone 100 mg tablet 200 mg (2 x 100 mg) PO BEDTIME #60 02/09/24 tabs Mental Status Exam Mental Status Exam Narrative: Pt is alert and oriented; behavior is cooperative; dressed in casual attire; mood is described as good ; eye contact appropriate; Speech is normal rate, volume and not pressured; thought process is organized and goal directed; Thought content is on tx; otherwise pertinent to relevant topics and without any delusional content, paranoid ideations or grandiosity; denies SI/HI/VH/AH. Data Data Completed and Pending Completed studies during hospitalization [Text1]: 05/12/24 05/14/24 19:15 15:36 WBC 5.1 RBC 3.97 L Hgb 12.1 L Hct 35.0 L MCV 88.2 MCH 30.5 MCHC 34.6 RDW 13.0 Plt Count 243 D MPV 10.6 Immature Gran % (Auto) 0.2 Neut % (Auto) 57.1 Lymph % (Auto) 26.4 [place] % (Auto) 9.8 Eos % (Auto) 5.7 H Baso % (Auto) 0.8 Lymph # (Auto) 1.4 [place] # (Auto) 0.5 Eos # (Auto) 0.3 Baso # (Auto) 0.0 Abs Immat Gran (auto) 0.01 Absolute Neuts (auto) 2.9 Absolute Nucleated RBC 0.000 Nucleated RBC % (auto) 0.0 Sodium 138 141 Potassium 3.9 4.3 Chloride 103 106 Carbon Dioxide 26 25 Anion Gap 13 14 BUN 9 12 Creatinine 0.84 0.81 Estim Creat Clear Calc 125.4 130.1 Estimated GFR > 60 > 60 Random Glucose 132 H 102 Calcium 9.0 D 9.2 Total Bilirubin 0.3 0.2 Direct Bilirubin < 0.2 AST 217 H 94 H ALT 135 H 118 H Alkaline Phosphatase 68 66 Ammonia 50 Total Protein 6.3 L 6.7 Albumin 3.8 4.0 DS: Summary Hospital Course Hospital Course: Patient is a 53-year-old male with history of MDD, PTSD, TBI, cocaine use disorder and alcohol use disorder who self presented [place] [facility] due to suicidal ideation secondary to relapsing on alcohol and crack cocaine which increased his depressive symptoms. Per crisis report, patient reports relapsing on alcohol and crack cocaine which made his depression worsened for the past 3 weeks. Patient has been staying at [facility] for the past 2 months. Patient reported suicidal ideation due to not knowing what else to do because he keeps going in the same cycle. He did not state any plan or intent. Patient denies HI/VH/AH. He reports poor sleep and appetite which he feels is related to his depression and alcohol use. History of having providers through [facility] and [facility]. Patient reports he has been drinking a 6 pack of beer and a qt of liquor daily. U tox positive for cocaine, marijuana and buprenorphine. During admission assessment, patient presents alert and oriented x3. Calm and cooperative. Patient reports feeling depressed; patient stated, a few weeks ago I relapsed. It was a combination with the holidays and not having anyone. Seeing other people happy made me jealous . denies SI/HI/VH/AH. Patient reports that he needs help to detox off alcohol and get back to where I was ; patient reports he would like to return to the [facility] or a [facility] . Plan: CV 15 minute safety checks Ativan taper Continue home medications Obtain collateral Encourage groups Discharge planning Active on unit, social with peers. patient reports feeling better than yesterday ; pt stated, I got good news that I can go back to [facility]. I would like to go back before [place] . Denies SI/HI/VH/AH. Plan for discharge on Friday if pt continues to improve. increase wellbutrin to 450mg po daily. stable looking forward to go to [facility]. Patient reports feeling good and ready for discharge. denies SI/HI/VH/AH. Pt plans on following up with his outpatient providers. Time spent discussing smoking cessation with patient: 3 to 10 minutes Status at Discharge Cognitive/behavioral status at discharge: Patient was interviewed prior to discharge and found to be fully oriented and without SI or HI. Patient has insight and demonstrates good judgment in terms of wanting to pursue treatment. Patient has a safety plan that includes presenting to the closest ER or calling 911 if feeling unsafe. Functional status at discharge: independent ambulation Overall status at discharge: patient is back to baseline Time Spent with Patient Time attestation: Total time managing care of this patient today _20___ minutes. Time spent: Less than 30 minutes Discharge Plan Discharge Anticipated Discharge Date/Time: 05/17/24 11:00 Patient Disposition: Xfer Other Discharge Diagnosis: MDD, PTSD, cocaine use d/o, alcohol use d/o Referrals: Giovani Rust MD [Other] - 1 Week (fax # : Your follow up appt has been scheduled with Dr. Zheng (another provider that works with Dr. Rust) on 05-24-24 @ 9:30am.) Discharge Medications: New bupropion HCl 450 mg tablet extended release 24 hr 450 mg PO DAILY 30 Days Qty: 30 0RF Continued quetiapine 100 mg Tablet 100 mg PO DAILY 30 Days Qty: 30 0RF prazosin 5 mg Capsule 5 mg PO BEDTIME 30 Days Qty: 30 0RF Protocol: Hold for SBP< HOLD for SBP < : 90 gabapentin 800 mg tablet 800 mg PO TID 30 Days Qty: 90 0RF trazodone 100 mg Tablet 200 mg PO BEDTIME 30 Days Qty: 60 0RF zolpidem 10 mg Tablet 10 mg PO BEDTIME PRN (Reason: Insomnia) 30 Days Qty: 30 0RF buprenorphine-naloxone [Suboxone] 8-2 mg Film 2 film sublingual DAILY 7 Days Qty: 7 1RF buprenorphine-naloxone [Suboxone] 8-2 mg Film 1 film sublingual DAILY@1330 7 Days Qty: 7 1RF Rx Instructions: takes 1 film in afternoon Changed methylphenidate HCl [Ritalin] 20 mg tablet 20 mg PO BID@0800,1400 14 Days Qty: 28 0RF Rx Instructions: Partial Fill upon patient request. Discontinued bupropion HCl 300 mg Tablet Extended Release 24 Hr 300 mg PO DAILY Discharge Orders: Discharge Order (Routine); Ordered 05/17/24 Ordered By: Jelena Limon Diet: Regular diet Activity on Discharge: As tolerated Stand Alone Forms: Patient Portal Discharge page, Community Support Print Language: Maltese Care Plan Goals: Maintain mood and safe behaviors Take medications as prescribed Continue to pursue sobriety Practice coping skills Continue with outpatient providers and reach out to them as needed Health Concerns: Mood stability and behaviors Sobriety Plan of Treatment: Follow up with your PCP, psychiatric provider and other outpatient providers regarding above concerns Take medications as prescribed Assessment: Patient was interviewed prior to discharge and found to be fully oriented and without SI or HI. Patient has insight and demonstrates good judgment in terms of wanting to pursue treatment. Patient has a safety plan that includes presenting to the closest ER or calling 911 if feeling unsafe. Discharge Date/Time: 05/17/24 11:00
--- NOTE | 2024-05-17 10:12 | MHC.RECOVSUP ---
Rn Clinical Coordinator Note Patient seen in [facility] Consult requested for? Recovery Supports Current substance use reported by patient: Cocaine & Alcohol Plan:? Patient referred to [facility] recovery coaching as Mercedes Hackett don't go to [place]. He will connect through his case briefer.
[2024-05-17] MEDS: Naloxone HCl Nasal TAKE HOME 4 MG SPRAY 8 MG NOSTRILALT (10:51)
[2024-05-17] MEDS: Fluticasone Propionate Nasal 16 GM SPRAY 1 SPRAY NOSTRIL-B (10:52)
== END 2024-05-17 11:00 | disposition other institution (70) | DRG 751 ==
PROVIDERS: Admitting Provider Registered Nurse; Responsible Provider Registered Nurse; Visit Provider Psychiatry & Neurology Psychiatry
DX: F33.2 Major depressive disorder, recurrent severe without psychotic features (principal); R45.851 Suicidal ideations; F10.90 Alcohol use, unspecified, uncomplicated; F14.90 Cocaine use, unspecified, uncomplicated; Z87.820 Personal history of traumatic brain injury; Z87.891 Personal history of nicotine dependence; Z79.899 Other long term (current) drug therapy
CPT/HCPCS: 36415; 80048; 80053; 80076; 82140; 85025

== ENCOUNTER → 2024-05-12 16:04 | Outpatient (BNV) | payer OTHER, SELFPAY | PROVIDERS: Admitting Provider Registered Nurse; Responsible Provider Registered Nurse; Visit Provider Registered Nurse | DX: F33.2 Major depressive disorder, recurrent severe without psychotic features (principal); F43.12 Post-traumatic stress disorder, chronic; F10.90 Alcohol use, unspecified, uncomplicated; F14.90 Cocaine use, unspecified, uncomplicated | CPT/HCPCS: 90792; 99231; 99232; 99238 ==

== ENCOUNTER 2024-11-30 16:53 | Inpatient (IN) | payer MEDICAID, SELFPAY ==
--- OUTSIDE RECORDS SUMMARY | 2012-02-12 20:00 | XMS_ITS | Continuity of Care Document ---
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 Name Role Phone Unavailable Unavailable Unavailable Medications Medication Instructions Dosage Effective Dates (start - stop) Status Comments Ceftin 500 mg Tab take 1 tablet (500MG) by oral route every 12 hours - Active clotrimazole 1 % Topical Cream apply by Topical route 2 times every day to the affected and surrounding areas of skin morning and evening Not Available - Active hydroxyzine 25 mg Tab take 1 tablet (25MG) by oral route 2 times every day as needed 25 MG - Active anxiety Celexa 10 mg Tab take 1 tablet (10MG) by ORAL route every day 10 MG - Active Procedures Procedure Date Hosp D/c Da Mgmt 30 Min/less Advance Directives Directive Yes / No Effective Date File Name No Information Encounters Encounter Description Practice Location Reason(s) For Visit Diagnoses Date Provider Hosp D/c Da Mgmt 30 Min/less [address], [id number], [place] tel:[phone] [facility] No Information 0 2 No Information [address], [id number], [place] tel:[phone] [facility] Information 2 No Information [address], [id number], [place] tel:[phone] [facility] No Information 2 Beatrice Sammie. [address] [place] [address], [place], . tel:[phone], [address] [place] [address], tel:[phone] [facility] No Information 2 Beatrice Sammie. [address] [place] [address], [place], . tel:[phone], [address] [place] [address], tel:[phone] [facility] cold symptoms (chief complaint) mouth sore (chief complaint) jock itch (chief complaint) Respiratory InsufficiencyCoughMOUTH ANOMALY NECDERMATOPHYTOSIS OF GROINALCOHOL ABUSE-UNSPEC 2 Gopari Vasquez. [address] [place] [address], [place], . tel:[phone], [address] [place] [address], tel:[phone] [facility] cold symptoms (chief complaint) depression (chief complaint) UPPER RESP DIS NEC/NOSDepressionALCOHOL ABUSE-UNSPECDepressionCO ALISSA ABUSE-UNSPEC 2 Goulettesther Vasquez. [address] [place] [address], [place], . tel:[phone], [address] [place] [address], tel:[phone] [facility] No Information 2 Beatrice Sammie. [address] [place] [address], [place], . tel:[phone], [address] [place] [address], tel:[phone] [facility] ADMINISTRTVE ENCOUNT NOS 2 2 Beatrice Sammie. [address] [place] [address], [place], [place]. tel:[phone] [facility], [address] [place] [address], [id number], tel:[phone] [facility] ADMINISTRTVE ENCOUNT NOS Dec- 2 Beatrice Cochran. [address] [place] [address], [place], [place]. tel:[phone] [facility], [address] [place] [address], [address] [place] [address], tel:[phone] [facility] mouth sore (chief complaint) anxiety (chief complaint) ORAL SOFT TISSUE DIS NECANXIETY STATE NOSALCOHOL ABUSE-UNSPECTOBACCO USE DISORDER 2 Dennis Christina. [address] [place] [address], [place], [place]. tel:[phone], [id number], tel:[phone] [facility] ETOH use (chief complaint) ALCOHOL ABUSE-CONTINUOUS Aug- 2 No Information [address], [id number], [place] tel:[phone] [facility] etoh abuse (chief complaint) ivdu (chief complaint) ALCOHOL ABUSE-CONTINUOUSSPONTANE OUS ECCHYMOSES 2 No Information [address], [id number], [place] tel:[phone] [facility] DENTAL EXAMINATION 2 Bayron Williamson. [address] [place] [address], [id number], [place]. tel:[phone], [id number], [place] tel:[phone] [facility] DENTAL EXAMINATION 2 No Information [address], [id number], [place] tel:[phone] [facility] tst read (chief complaint) No Information b- [address] [facility], [address] [place] [address], [id number], tel:[phone] [facility] TST (chief complaint) facial trauma (chief complaint) CONTUSION OF EYE NOSALCOHOL ABUSE-UNSPECDepressive Disorder NecSCREENING-PULMONARY TB Jun- 0 2 Dennis Vasquez. [address] [place] [address], [place], [place]. tel:[phone] [facility], [address] [place] [address], [id number], tel:[phone] [facility] No Information 2 Wilmer Melchor. [address] [place] [address], [place], [place]. tel:[phone] Family History Family Member Type Diagnosis Age At Onset No Information Payers Payer name Insurance type Covered alliance party ID Authoriza tion(s) No Information Social History Type Description Quantity Date Captured Comments Sex Male Smoking Status No Information Chief Complaint And Reason For Visit No Information Plan Of Treatment Date Type Action Status Goal H&P. Due on due Goal Lipid Panel. Due on 012 due History Of Present Illness Encounter Date Complaint History Of Prese nt Illness No Information Instructions Date Instruction Additional Infor mation No Information Assessments Type Assessment Date No Information
[2024-11-30] VITALS (8 sets, daily range): BP systolic 00–130; BP diastolic 00–81; PULSE 90–130; RESP 15–30; TEMP 36.7–37.1; O2SAT 95–99; BMI 23.9
--- NOTE | 2024-11-30 | ECG_ITS ---
Test Reason : ETOH Blood Pressure : */* mmHG Vent. Rate : 125 BPM Atrial Rate : 125 BPM P-R Int : 98 ms QRS Dur : 74 ms QT Int : 338 ms P-R-T Axes : 42 35 6 degrees QTcB Int : 487 ms Poor data quality Sinus tachycardia Otherwise normal ECG When compared with ECG of 12-May-2024 14:32, Vent. rate has increased by 45 bpm Referred By: Generic ED Physician Electronically Signed By: Dario Pratt
--- NOTE | ~2024-11-30 | XR_ITS ---
CLINICAL HISTORY: ?aspiration Chest Radiograph Comparison: 05/10/24 Findings: No cardiomegaly. Normal mediastinal contours. No pneumothorax. No opacity. No pleural effusion. Normal upper abdomen. No acute fracture. Impression: No acute findings. This document has been electronically signed by: Caterina Collins MD on 11/30/2024 18:20:00
[2024-11-30 17:11] LABS: Glucose, Whole Blood 177 mg/dL (60-115)
[2024-11-30 17:44] LABS: Hematocrit 46.0 % (42.0-52.0); Hemoglobin 15.9 g/dl (14.0-18.0); Imm Gran Abs Auto 0.12 X10*3/uL (0.00-0.03); Imm Gran Pct Auto 0.5 % (0.0-0.4); Lymphocytes Absolute Auto 0.7 X10*3/uL (1.2-4.9); MANUAL DIFF FLAG SCAN; Mean Corpuscular HGB Conc 34.6 g/dl (31.0-36.0); Mean Corpuscular Hemoglobin 30.0 pg (27.0-33.0); Mean Corpuscular Volume 86.8 fL (80.0-98.0); NRBC Abs Auto 0.000 X10*3/uL (0.0-0.012); NRBC Pct Auto 0.0 /100WBC (0.0-0.2); Platelet Count 382 X10*3/uL (160-400); Red Blood Count 5.30 X10*6/uL (4.60-5.80); SCAN SMEAR FLAG 1; White Blood Count 23.2 X10*3/uL (4.8-10.8)
--- NOTE | 2024-11-30 17:51 | PC.NURSE ---
54 M here after cocaine use and etoh. Pt very anxious, sweating, irritable. c/o body aches and headache. Denies SOB, RR even and unlabored, denies CP. Pt sts he wants to get help. A+OX4 and anxious, cooperative. pupils dilated, reactive to light
[2024-11-30 18:08] LABS: Troponin-I High Sensitivity 36.3 ng/L (<3.5-35.0)
[2024-11-30 18:09] LABS: Alanine Aminotransferase 30 U/L (0-40); Albumin Level 5.6 g/dL (3.5-5.0); Alkaline Phosphatase 86 U/L (39-117); Anion Gap 24 (12-20); Aspartate Amino Transferase 21 U/L (5-37); Blood Urea Nitrogen 20 mg/dL (9-16); Calcium 10.5 mg/dL (8.4-10.2); Carbon Dioxide 19 mmol/L (22-29); Chloride 104 mmol/L (96-108); Creatinine Clr Calc Pharmacy 30.8; Estimated Glomerular Filt Rate 21; Magnesium 2.3 mg/dL (1.6-2.6); Potassium 4.5 mmol/L (3.3-5.1); Sodium 142 mmol/L (135-145); Total Protein 8.1 g/dL (6.5-8.0)
--- NOTE | 2024-11-30 19:08 | ED.GENADULT ---
HPI - General Adult General Chief complaint: ETOH/Substance Use Stated complaint: smoking crack all day, alcohol withdrawals Time Seen by Provider: 11/30/24 17:12 Source: patient Mode of arrival: ambulatory Limitations: no limitations History of Present Illness ED Provider: HPI narrative: Patient's history of alcohol use cocaine use been using cocaine earlier today last drink was yesterday patient comes here with muscle spasm not feeling good does have history of seizure but no tongue bite at this time patient is tachycardic on arrival afebrile was in son all day today Related Data Home Medications ?Medication ?Instructions ?Recorded ?Confirmed buprenorphine 96 mg/0.27 mL 96 mg subcut Q28D 11/30/24 11/30/24 solution,exten.rel.subcutaneous syringe (Brixadi Monthly) bupropion HCl 150 mg 24 hr tablet, 150 mg PO DAILY 11/30/24 11/30/24 extended release (Wellbutrin XL) bupropion HCl 300 mg 24 hr tablet, 300 mg PO DAILY 11/30/24 11/30/24 extended release (Wellbutrin XL) Previous Rx's ?Medication ?Instructions ?Recorded gabapentin 800 mg tablet 800 mg PO TID 30 days #90 tabs 05/17/24 methylphenidate HCl 20 mg tablet 20 mg PO BID@0800,1400 7 days #14 05/17/24 (Ritalin) tabs prazosin 5 mg capsule 5 mg PO BEDTIME 30 days #30 caps 05/17/24 trazodone 100 mg tablet 200 mg (2 x 100 mg) PO BEDTIME 30 05/17/24 days #60 tabs zolpidem 10 mg tablet (Ambien) 10 mg PO BEDTIME 30 days #30 tabs 05/17/24 Allergies Allergy/AdvReac Type Severity Reaction Status Date / Time ketamine AdvReac Severe Agitated Verified 11/30/24 17:06 phenobarbital AdvReac Vomiting Verified 11/30/24 17:06 Review of Systems Review of Systems: Yes all other systems are reviewed and are negative PMFSH Past Medical History Medical History Elevated LFTs Major depression First degree burn of fingers and thumb Bupropion overdose Intentional overdose Suicide attempt Medical clearance for psychiatric admission Incidental pulmonary nodule Hepatic steatosis Alcohol use disorder Hepatitis C antibody positive in blood Alcohol dependence EtOH dependence Anxiety Chronic post-traumatic stress disorder (PTSD) MDD (major depressive disorder), recurrent episode, severe Depression Surgical History History of right hip replacement History of mandibular surgery Family History Family History Mother Diabetes mellitus Father Leukemia Social History Social History Household Members: Other Household Members Other:: [employer] program Housing: House Housing Other:: [email or web address] program Do you presently have visiting nurse or other home services: No Unable to assess alcohol history related to: Unknown Alcohol intake: current Alcohol intake frequency: 3 or more drinks per day Alcohol type: hard liquor Comment: sitter Patient Tobacco Use Status: Former Tobacco user Tobacco use type: Cigarette Cigarette Packs Per Day: 1 Cigarettes Per Day: 10 Years Smoked: 20 Smoked in Last 30 Days: No e-Cigarette/Vaping Use: Currently Using Second Hand Smoke Exposure: No Use of substances other than those prescribed or required for medical reasons: Yes Substance Use Type: Crack/Cocaine Substance Use Frequency: Daily Last Used Substance: Hours (ago) Any prior treatment program specific to substance use: No Advance Directives: No Advance Directives Information Provided: No Do you have a plan to hurt others: No Plan Nutrition Risks: No Nutritional Risk service: No Current occupational status: unemployed Sexual orientation: Straight/Heterosexual Physical Exam ED Vital Signs: Vital Signs - 24 hr 11/30/24 17:02 11/30/24 17:11 11/30/24 17:44 Temperature 98.4 F Pulse Rate 128 H 127 H 103 H Respiratory Rate 18 18 30 H Blood Pressure 00/00 L 123/71 123/71 Pulse Oximetry 95 97 97 Oxygen Delivery Method Room Air Room Air 11/30/24 17:53 11/30/24 18:35 11/30/24 20:45 Temperature 98.8 F 98.4 F Pulse Rate 96 96 93 Respiratory Rate 21 H 24 H 15 Blood Pressure 125/81 104/66 123/73 Pulse Oximetry 99 98 97 Oxygen Delivery Method Room Air Room Air Room Air BMI result Body Mass Index 23.9 Appearance: Alert. Oriented X3. No acute distress. Eyes: PERRLA, No Nystagmus ENT: Pharynx normal. Oral Mucosa moist Neck: Normal inspection. Neck supple. CVS: Normal heart rate and rhythm. Tachycardian Pulses normal. Respiratory: No respiratory distress. Equal air entry bilateral, no wheezing/rales/rhonchi Abdomen: Soft and nontender. Bowel sounds are present, no mass palpable, no CVA tenderness Skin: Skin warm and dry. Normal skin color. Normal skin turgor. Extremities: No lower extremity edema. No calf tenderness Neuro: Oriented X 3. No motor deficit. No sensory deficit.No cerebellar signs , cranial nerves II-XII intact Medications Administered Generic Name Dose Route Start Last Admin Trade Name Freq PRN Reason Stop Dose Admin Diazepam 10 mg 11/30/24 22:45 11/30/24 23:51 Diazepam 10 Mg/2 Ml Cartridge IVPUSH 12/01/24 16:46 10 mg Q6H FOUZIA Administration Heparin Sodium (Porcine) 5,000 unit 11/30/24 21:00 11/30/24 22:44 Heparin Sodium,Porcine 5,000 Unit/Ml Vial SUBCUT 5,000 unit Q8H FOUZIA Administration Lactated Ringer's 1,000 mls @ 125 mls/hr 11/30/24 21:00 11/30/24 22:38 Lr IVCONT 125 mls/hr .Q8H FOUZIA Administration Senna 17.2 mg 11/30/24 21:00 11/30/24 22:50 Sennosides 8.6 Mg Tablet PO 17.2 mg BEDTIME FOUZIA Administration Sodium Chloride 3 ml 12/01/24 00:00 12/01/24 00:48 0.9 % Sodium Chloride Flush 3 Ml Syringe IVFLUSH Not Given QSHIFT FOUZIA Discontinued Medications Generic Name Dose Route Start Last Admin Trade Name Freq PRN Reason Stop Dose Admin Sodium Chloride 1,000 mls @ 999 mls/hr 11/30/24 17:12 11/30/24 19:51 Ns IV 11/30/24 18:12 Infused .Q1H1M ONE Infusion Sodium Chloride 1,000 mls @ 999 mls/hr 11/30/24 17:39 11/30/24 19:51 Ns IV 11/30/24 18:39 Infused .Q1H1M ONE Infusion Lactated Ringer's 1,000 mls @ 999 mls/hr 11/30/24 23:45 11/30/24 23:51 Lr IV 12/01/24 00:45 999 mls/hr .Q1H1M FOUZIA Administration Lorazepam 2 mg 11/30/24 19:19 11/30/24 19:26 Lorazepam 1 Mg Tablet PO 11/30/24 19:20 2 mg ONCE ONE Administration Medical Decision Making Differential Diagnosis Differential Diagnoses: The differential diagnosis associated with the presentation includes Patient's polysubstance abuse crack and heroin comes here for not feeling well with muscular spasm noted to be tachycardic with afebrile was given fluids heart rate improved. Patient does have elevated WBC count and lactic acid but there is no source of infection likely from leukemoid reaction from the stress and dehydration patient has received IV fluids will admit patient to the hospitalist service for further management will continue lorazepam every 4 hours as needed patient is noted to have IVONNE with creatinine of 3.09 from baseline of 0.8 on 05/18 patient has received IV fluids Admission/Observation Consideration of admission/observation: Escalation of care including admission/observation considered Consult Healthcare Provider Management of the patient was discussed with: Hospitalist Lab Data MDM Lab Attestation statement: I reviewed the patient's lab results. 11/30/24 17:38 11/30/24 17:38 Labs: Lab Results 11/30/24 11/30/24 11/30/24 Range/Units 17:06 17:38 19:00 WBC 23.2 H (4.8-10.8) X10*3/uL RBC 5.30 D (4.60-5.80) X10*6/uL Hgb 15.9 D (14.0-18.0) g/dl Hct 46.0 D (42.0-52.0) % MCV 86.8 (80.0-98.0) fL MCH 30.0 (27.0-33.0) pg MCHC 34.6 (31.0-36.0) g/dl RDW 13.2 (11.0-16.0) % Plt Count 382 D (160-400) X10*3/uL MPV 10.4 (9.4-12.4) fL Immature Gran % (Auto) 0.5 H (0.0-0.4) % Neut % (Auto) 86.9 H (45-73) % Lymph % (Auto) 3.2 L (20-40) % [place] % (Auto) 9.1 (2-11) % Eos % (Auto) 0.0 (0-4) % Baso % (Auto) 0.3 (0-2) % Lymph # (Auto) 0.7 L (1.2-4.9) X10*3/uL [place] # (Auto) 2.1 H (0.1-1.2) X10*3/uL Eos # (Auto) 0.0 (0.0-0.4) X10*3/uL Baso # (Auto) 0.1 (0.0-0.2) X10*3/uL Abs Immat Gran (auto) 0.12 H (0.00-0.03) X10*3/uL Absolute Neuts (auto) 20.2 H (2.0-8.3) x10*3/uL Absolute Nucleated RBC 0.000 (0.0-0.012) X10*3/uL Nucleated RBC % (auto) 0.0 (0.0-0.2) /100WBC Smear Tech's Comments VERIFIED Sodium 142 (135-145) mmol/L Potassium 4.5 (3.3-5.1) mmol/L Chloride 104 (96-108) mmol/L Carbon Dioxide 19 L (22-29) mmol/L Anion Gap 24 H (12-20) BUN 20 H (9-16) mg/dL Creatinine 3.09 H (0.5-1.4) mg/dL Estim Creat Clear Calc 30.8 Estimated GFR 21 POC Glucose 177 H (60-115) mg/dL Random Glucose 157 H (60-115) mg/dL Lactic Acid 2.3 H* (0.5-2.0) mmol/L Calcium 10.5 H D (8.4-10.2) mg/dL Magnesium 2.3 (1.6-2.6) mg/dL Total Bilirubin 0.7 (0.0-1.0) mg/dL AST 21 (5-37) U/L ALT 30 (0-40) U/L Alkaline Phosphatase 86 (39-117) U/L Total Creatine Kinase 220 H (38-174) U/L Troponin I High Sens 36.3 H D (<3.5-35.0) ng/L Total Protein 8.1 H (6.5-8.0) g/dL Albumin 5.6 H (3.5-5.0) g/dL Ethyl Alcohol 11 mg/dL Independent Interpretation I performed an independent interpretation of an: EKG and Plain X-Ray Interpretation: Sinus tachycardia with heart rate of 125 beats per minute normal interval normal axis no acute ST-T changes no acute ischemia Radiology Impression Discussion of test interpretation with radiology: I have reviewed the radiologist's reading. Radiologist Impression: no acute Discharge Plan Discharge Clinical Impression: Alcohol withdrawal syndrome, Crack cocaine use Patient Disposition: Admitted As Inpatient
--- NOTE | 2024-11-30 21:02 | P.HPHOSP_ITS ---
History of Present Illness Date of Service: 11/30/24 Attending physician on admission: Lydia Yee Chief Complaint: relapse drug/ alcohol use Pt is a 54 yo male with PMH ETOH abuse, Substance use disorder with history of overdose/Narcan, PTSD, depression/ anxiety, insomnia, marijuana, liver fibrosis, ? TBI, Hep C undetected after tx completed after last IVD use in 2004, R hip replacement 08/2024 at [facility] fully healed was brought in by ambulance to ED after calling 911 s/p spontaneous use of crack cocaine today (1GM snorted and 3-4 grams smoked) with alcohol use for the last 4 [address]. Pt states he has been hiding the alcohol and has been using a 6 pack and at least 3 nips of vodka daily. Last drink was yesterday. Pt then decided today to go to [place] and buy crack. Pt went into the flower, used and then believed he had a seizure and awakened after being out in the heat for at least 3-4 hours, feeling weak, parched and unable to walk to the road. Pt did call 911 and they found pt in the flower and brought pt in. Patient states he is known to have seizures with alcohol withdrawal in the past. Pt states he cannot have phenobarbitol as he became violently ill on the medication during a relapse at [facility] ED. Pt does not take antieleptics normally and does not have dx of epilepsy. COW/CIWA protocol has been ordered and Valium IV is currently in place PRN with taper over the next 3 days. Pt states he has been compliant with his usual medications and follows with a psychaitrist and therapist and last saw provider 2 weeks ago but did not disclose alcohol use. Pt is stating he is suicidal today and does not offer a specific plan beyond using crack cocaine today. Crisis is coming in to see pt and psychaitric consult has been placed. Pt does have a 1:[address] All pt's belongings have been secured. Incidentally, pt has IVONNE/ metabolic acidosis with anion gap of 24 with creatinine clearance 30.8, GFR 21, CK 220 . In April, pt's renal function WNL. CK also elevated mildly likely from dehydration and being down in the flower for a few hours. Pt can tolerate po intake with nausea or vomiting currently. Pt denies any chest pain, shortness of breath at rest or with exertion or abdominal pain. Patient also has a noted leukocytosis likely secondary to drug use and exposure to the heat earlier today but UA is currently pending and drug screen is also pending. Chest x-ray negative for acute findings. Patient's alcohol level was 11. Patient has been afebrile since arrival. No obvious tic bites or open wounds on exam. Review of Systems 2 Review of Systems: Patient denies any chest pain, shortness of breath at rest or with exertion, abdominal pain, nausea/vomiting or constipation. Patient does report intermittent diarrhea but has not had any diarrhea in the last 2 days. Patient offers mild myalgias bilateral lower extremities. Yes all other systems are reviewed and are negative [facility] Medical History Elevated LFTs Major depression First degree burn of fingers and thumb Bupropion overdose Intentional overdose Suicide attempt Medical clearance for psychiatric admission Incidental pulmonary nodule Hepatic steatosis Alcohol use disorder Hepatitis C antibody positive in blood Alcohol dependence EtOH dependence Anxiety Chronic post-traumatic stress disorder (PTSD) MDD (major depressive disorder), recurrent episode, severe Depression Cognitive capacity: Alert and orientated x3 Functional capacity: independent ambulation Family History Mother Diabetes mellitus Father Leukemia Surgical History (Updated 11/30/24 @ 22:04 by ROCKY Alaniz) History of right hip replacement History of mandibular surgery Social History Household Members: Other Household Members Other:: [employer] program Housing: House Housing Other:: [employer] program Do you presently have visiting nurse or other home services: No Unable to assess alcohol history related to: Unknown Alcohol intake: current Alcohol intake frequency: 3 or more drinks per day Alcohol type: hard liquor Comment: sitter Patient Tobacco Use Status: Former Tobacco user Tobacco use type: Cigarette Cigarette Packs Per Day: 1 Cigarettes Per Day: 10 Years Smoked: 20 Smoked in Last 30 Days: No e-Cigarette/Vaping Use: Currently Using Second Hand Smoke Exposure: No Use of substances other than those prescribed or required for medical reasons: Yes Substance Use Type: Crack/Cocaine Substance Use Frequency: Daily Last Used Substance: Hours (ago) Any prior treatment program specific to substance use: No Advance Directives: No Advance Directives Information Provided: No Do you have a plan to hurt others: No Plan service: No Current occupational status: unemployed Sexual orientation: Straight/Heterosexual Ebola Risk: Travel/Contact With Anyone From Affected Area/s: No Has Patient Experienced Ebola Symptoms: No Meds Allergies Allergy/AdvReac Type Severity Reaction Status Date / Time ketamine AdvReac Severe Agitated Verified 11/30/24 17:06 phenobarbital AdvReac Vomiting Verified 11/30/24 17:06 Active Medications: Current Medications Acetaminophen (Acetaminophen 325 Mg Tablet) 650 mg PO Q6H PRN PRN Reason: Pain, Mild 1-3,fever,headache Albuterol/Ipratropium (Albuterol/Iprat 2.5/0.5mg 3 Ml Ampul.Neb) 3 ml INHALE Q4H PRN PRN Reason: Shortness of Breath/Wheezing Calcium Carbonate (Calcium Carbonate 750 Mg Tab.Chew) 750 mg PO Q4H PRN PRN Reason: Heartburn Heparin Sodium (Porcine) (Heparin Sodium,Porcine 5,000 Unit/Ml Vial) 5,000 unit SUBCUT Q8H FOUZIA Lactated Ringer's (Lr) 1,000 mls @ 125 mls/hr IVCONT .Q8H FOUZIA Magnesium Hydroxide (Milk Of Magnesia 30 Ml Oral.Susp) 30 ml PO DAILY PRN PRN Reason: Constipation Melatonin (Melatonin 3 Mg Tablet) 6 mg PO BEDTIME PRN PRN Reason: Insomnia Ondansetron HCl (Ondansetron Hcl 4 Mg/2 Ml Vial) 4 mg IVPUSH Q8H PRN PRN Reason: Nausea and Vomiting Senna (Sennosides 8.6 Mg Tablet) 17.2 mg PO BEDTIME FOUZIA Sodium Chloride (0.9 % Sodium Chloride Flush 3 Ml Syringe) 3 ml IVFLUSH QSHIFT [facility] Home Medications ?Medication ?Instructions ?Recorded ?Confirmed ?Last Taken ?Type buprenorphine 96 mg/0.27 mL 96 mg subcut Q28D 11/30/24 11/30/24 10/21/24 History solution,exten.rel.subcutaneous syringe (Brixadi Monthly) bupropion HCl 150 mg 24 hr tablet, 150 mg PO DAILY 01/1711/30/24 11/29/24 History extended release (Wellbutrin XL) bupropion HCl 300 mg 24 hr tablet, 300 mg PO DAILY 01/1711/30/24 11/29/24 History extended release (Wellbutrin XL) Physical Exam 2 Vital Signs and Narrative: Vital Signs: Last Vital Signs Temp 98.4 F 11/30/24 20:45 Pulse 93 11/30/24 20:45 Resp 15 11/30/24 20:45 BP 123/73 11/30/24 20:45 Pulse Ox 97 11/30/24 20:45 O2 Del Method Room Air 11/30/24 20:45 BMI result Body Mass Index 23.9 Alert and orientated X3, able to give good history. Neuro: CN II-X11 intact, no deficits, visual acuity intact EYES: PERRLA, EOM intact, sclerae nonicteric, conjunctiva pink ENT: hearing intact, no issues with swallowing, uvula midline, lips dry, nares patent no epistaxis Cardiac: S1 S2 RRR, no murmur, no JVD, no edema in Lower ext Pulmonary: lungs clear to auscultation B Abdominal: BS active in all 4 quadrants, no guarding, tenderness, rebounding MSK: strength 5/5 upper and lower extremities : no CVA tenderness no bladder distension Extremities: no edema in lower extremities, PT and DP pulses palpable +2 Psych: mood anxious/emotional, judgement and insight fair Skin: Sunburn face and upper extremities Results Labs 11/30/24 17:38 11/30/24 17:38 Labs: Laboratory Results - last 24 hr 11/30/24 11/30/24 11/30/24 17:06 17:38 19:00 MCV 86.8 MCH 30.0 MCHC 34.6 RDW 13.2 Plt Count 382 D MPV 10.4 Immature Gran % (Auto) 0.5 H Neut % (Auto) 86.9 H Lymph % (Auto) 3.2 L [place] % (Auto) 9.1 Eos % (Auto) 0.0 Baso % (Auto) 0.3 Lymph # (Auto) 0.7 L [place] # (Auto) 2.1 H Eos # (Auto) 0.0 Baso # (Auto) 0.1 Abs Immat Gran (auto) 0.12 H Absolute Neuts (auto) 20.2 H Absolute Nucleated RBC 0.000 Nucleated RBC % (auto) 0.0 Smear Tech's Comments VERIFIED Anion Gap 24 H Estim Creat Clear Calc 30.8 Estimated GFR 21 POC Glucose 177 H Random Glucose 157 H Lactic Acid 2.3 H* Calcium 10.5 H D Magnesium 2.3 Total Bilirubin 0.7 AST 21 ALT 30 Alkaline Phosphatase 86 Total Creatine Kinase 220 H Total Protein 8.1 H Albumin 5.6 H Ethyl Alcohol 11 ECG Attestation: I personally reviewed and interpreted this ECG as follows: (Sinus tachycardia with short [place] Otherwise normal ECG) Prior ECG tracings: available for review Imaging Radiologist's Impressions: Chest x-ray Negative for acute findings Assessment and Plan (1) IVONNE (acute kidney injury): Status: Acute Plan Pt is a 54 yo male with PMH ETOH abuse, Substance use disorder with history of overdose/Narcan, PTSD, depression/ anxiety, insomnia, marijuana, liver fibrosis, ? TBI, Hep C undetected after tx done last IVD use in 2004, R hip replacement 08/2024 at [facility] is being admitted for IVONNE and alcohol and substance use disorder. Patient is having suicidal ideations and crisis services involved patient will likely will require a section 12. One-to-one in place. IVONNE/ metabolic acidosis AG 24 -Nephrology consulted -LR infusion continues hourly -Lactic acid 2.5, repeat pending -Urine studies ordered -Avoid hypotension -Avoid nephrotoxic meds -Strict I/Os QS Relapse crack cocaine/ alcohol use/ mhx of seizures secondary to withdrawal -Urine tox screen pending -COW protocol in place -CIWA protocol in place using valium, pt cannot tolerate phenobarbitol -Thiamine, FOlic Acid, MVI ordered -No hx of pancreatitis, Lipase pending, LFTs stable -Possible seizure in the field per pt, no way to confirm, seizure precautions in place, pt is not post tictal -Full liquid diet allowed -Telemetry -Addictions consulted -MG is stable, check daily HX of substance use disorder -Pt normally on Brixadi, not available inpatient -Pharmacy to provide conversion Leukocytosis -UA pending -CXR negative for acute findings -Pt afebrile, no indication for sepsis but possible heat exposure -Monitor temp and vitals closely -Patient was down in the flower 4 hours, no obvious tick bites or wounds noted on exam. Suicidal Ideations/Depression/anxiety/ PTSD -Psychiatry consulted -1:[address] -Crisis services on board DVT Prophylaxis: Heparin SC PPI Prophylaxis: Omeprazole MED REC PENDING FULL CODE Quality Stroke Does the patient have a stroke diagnosis?: No Reason for No Anti-thrombotic by Day Two: N/A - Med Ordered VTE Prior VTE?: No VTE Risk Level:: Medical - moderate - high VTE Device Contraindication: N/A - Device Ordered VTE Drug Contraindication: N/A - Med Ordered
[2024-11-30 21:04] LABS: Reflex Lactate? Lactic Acid Added
--- NOTE | 2024-11-30 21:44 | PHA.MEDREC ---
Addendum entered by Dany Lindquist [facility] 11/30/24 21:54: Med rec reviewed Original Note: Pharmacy Consult ? Medication Reconciliation Pharmacy has completed the medication reconciliation. Spoke to patient to confirm med list. Patient was able to name all of his medications. Patient confirmed Brixadi 96 mg Q28 days, last dose was 1 and 1/2 months ago. Claims has 10/21/24. Patient states he wants to be on Suboxone 4 mg films. Patient states he is no longer taking Quetiapine 100 mg. Patient last had his medications yesterday.
[2024-11-30 21:59] LABS: Appearance Urine Cloudy; Glucose Urine UA Negative (Negative); PH 5.5 (5.0-9.0); Specific Gravity - Urine 1.015 (1.005-1.025); UMIC TRIGGER UACC YES
[2024-11-30 22:14] LABS: Cannabinoid Screen Urine POSITIVE (Not Detect)
[2024-11-30 22:17] LABS: ~Lactic Acid-LAB USE ONLY 2.2 mmol/L (0.5-2.0)
[2024-11-30] MEDS: Lactated Ringers 1,000 ML 125 ML IVCONT (22:38)
--- NOTE | 2024-11-30 23:45 | PC.NURSE ---
pt very agitated, wants constant food, i havent eaten in 3 days, i dont care that your fridge is empty, find me food, that is not my problem pt later apologized for outburst. IV maintenance fluids paused to infuse bolus LR per provider
[2024-11-30 23:49] LABS: Cancel Lactic Acid Canceled
[2024-11-30] MEDS: diazePAM 10 MG/2 ML CARTRIDGE IVPUSH (23:51)
[2024-11-30] MEDS: Lactated Ringers 1,000 ML 999 ML IV (23:51)
[2024-12-01] VITALS (10 sets, daily range): BP systolic 105–140; BP diastolic 63–90; PULSE 56–78; RESP 12–98; TEMP 36.3–36.9; O2SAT 97–99; BMI 26.1
--- NOTE | 2024-12-01 01:28 | PC.NURSE ---
sitter at bedside, rang call allan. pt had unexpectedly sat up, stated he had to urinate, did not wait for staff to unhook IV. pt ripped IV tubing off of IV site. actual IV remains in tact, redressed. maintenance fluids restarted. urinal at bedside. pt resting comfortably.
[2024-12-01 05:32] LABS: MANUAL DIFF FLAG NO
[2024-12-01 05:39] LABS: Hematocrit 35.6 % (42.0-52.0); Hemoglobin 12.5 g/dl (14.0-18.0); Imm Gran Abs Auto 0.06 X10*3/uL (0.00-0.03); Imm Gran Pct Auto 0.4 % (0.0-0.4); Lymphocytes Absolute Auto 1.5 X10*3/uL (1.2-4.9); Mean Corpuscular HGB Conc 35.1 g/dl (31.0-36.0); Mean Corpuscular Hemoglobin 30.3 pg (27.0-33.0); Mean Corpuscular Volume 86.2 fL (80.0-98.0); NRBC Abs Auto 0.000 X10*3/uL (0.0-0.012); NRBC Pct Auto 0.0 /100WBC (0.0-0.2); Platelet Count 211 X10*3/uL (160-400); Red Blood Count 4.13 X10*6/uL (4.60-5.80); White Blood Count 13.5 X10*3/uL (4.8-10.8)
[2024-12-01 05:53] LABS: Osmolality, Serum 294 mosm/kg (281-305)
[2024-12-01 05:59] LABS: Alanine Aminotransferase 20 U/L (0-40); Albumin Level 3.7 g/dL (3.5-5.0); Alkaline Phosphatase 61 U/L (39-117); Anion Gap 13 (12-20); Aspartate Amino Transferase 28 U/L (5-37); Blood Urea Nitrogen 22 mg/dL (9-16); Calcium 8.5 mg/dL (8.4-10.2); Carbon Dioxide 20 mmol/L (22-29); Chloride 111 mmol/L (96-108); Creatinine Clr Calc Pharmacy 71.7; Estimated Glomerular Filt Rate 56; Lipase 11 U/L (8-78); Magnesium 2.1 mg/dL (1.6-2.6); Potassium 3.8 mmol/L (3.3-5.1); Sodium 140 mmol/L (135-145); Total Protein 5.4 g/dL (6.5-8.0)
[2024-12-01] MEDS: diazePAM 10 MG/2 ML CARTRIDGE IVPUSH ×4 (06:13→21:27)
[2024-12-01] MEDS: Lactated Ringers 1,000 ML 125 ML IVCONT ×3 (06:17→21:29)
--- NOTE | 2024-12-01 07:45 | P.PNIM_ITS ---
Subjective Subjective Date of Service: 12/01/24 Interval History: Patient continues to endorse SI Patient is well-known based on prior psych reports Addiction med consulted Patient interested in psych admission Patient does not have capacity to leave AMA Patient is on active suicidal watch Patient reports prior chills and fever likely in the setting of crack cocaine use and possible seizure/withdrawal-does not endorse any symptoms since admission Review of Systems Review of Systems: Yes all other systems are reviewed and are negative Physical Exam 2 Vital Signs: Vital Signs: Last Vital Signs Temp 97.4 F 12/01/24 06:40 Pulse 66 12/01/24 06:40 Resp 12 12/01/24 06:40 BP 120/72 12/01/24 06:40 Pulse Ox 97 12/01/24 06:40 O2 Del Method Room Air 12/01/24 06:40 BMI result Body Mass Index 23.9 Const: General: no acute distress, alert and awake Resp: Effort & Inspection: normal respiratory effort and able to speak in complete sentences Auscultation: clear to auscultation bilaterally Cardio: Rate: regular rate Rhythm: regular rhythm Heart sounds: S1 normal heart sound present and S2 normal heart sound present GI: Palpation (GI): Soft to palpation and nontender : General: Yes no CVA tenderness Back/Spine/Pelvis: Back: no CVA tenderness Skin: Rashes: no rashes Extrem: General: No edema Psych: Appearance: grossly normal Mental Status: mental status grossly normal Speech and movement: Normal speech and movement present Affect: n ormal affect Attitude: cooperative Thought process: Normal thought process present Thought content: Suicidality present Insight: Fair insight present (Psych) Judgement: Fair judgement present (Psych) Objective Data Active Medications Acetaminophen (Acetaminophen 325 Mg Tablet) 650 mg PO Q6H PRN PRN Reason: Pain, Mild 1-3,fever,headache Albuterol/Ipratropium (Albuterol/Iprat 2.5/0.5mg 3 Ml Ampul.Neb) 3 ml INHALE Q4H PRN PRN Reason: Shortness of Breath/Wheezing Calcium Carbonate (Calcium Carbonate 750 Mg Tab.Chew) 750 mg PO Q4H PRN PRN Reason: Heartburn Diazepam (Diazepam 10 Mg/2 Ml Cartridge) 10 mg IVPUSH Q6H PRN PRN Reason: Alcohol Withdrawal Stop: 12/02/24 21:41 Diazepam (Diazepam 10 Mg/2 Ml Cartridge) 10 mg IVPUSH Q6H COUNTS INCLUDE 234 BEDS AT THE [facility] Stop: 12/01/24 16:46 Last Admin: 12/01/24 06:13 Dose: 10 mg Documented By: KHOA Diazepam (Diazepam 10 Mg/2 Ml Cartridge) 5 mg IVPUSH Q4H PRN PRN Reason: Alcohol Withdrawal Stop: 12/03/24 21:44 Famotidine (Famotidine 20 Mg Tablet) 20 mg PO BID COUNTS INCLUDE 234 BEDS AT THE [facility] Folic Acid (Folic Acid 1 Mg Tablet) 1 mg PO DAILY COUNTS INCLUDE 234 BEDS AT THE [facility] Stop: 12/04/24 08:59 Heparin Sodium (Porcine) (Heparin Sodium,Porcine 5,000 Unit/Ml Vial) 5,000 unit SUBCUT Q8H COUNTS INCLUDE 234 BEDS AT THE [facility] Last Admin: 12/01/24 06:13 Dose: 5,000 unit Documented By: KHOA Lactated Ringer's (Lr) 1,000 mls @ 125 mls/hr IVCONT .Q8H COUNTS INCLUDE 234 BEDS AT THE [facility] Last Admin: 12/01/24 06:17 Dose: 125 mls/hr Documented By: KHOA Magnesium Hydroxide (Milk Of Magnesia 30 Ml Oral.Susp) 30 ml PO DAILY PRN PRN Reason: Constipation Melatonin (Melatonin 3 Mg Tablet) 6 mg PO BEDTIME PRN PRN Reason: Insomnia Multivitamins/Vitamin C (Multivitamin Tablet) 1 tab PO DAILY COUNTS INCLUDE 234 BEDS AT THE [facility] Stop: 12/04/24 08:59 Nicotine (Nicotine 21 Mg Patch.Td24) 21 mg TRANSDERMA DAILY COUNTS INCLUDE 234 BEDS AT THE [facility] Non-Formulary Medication (Buprenorphine [Brixadi]) 96 mg SUBCUT Q28D COUNTS INCLUDE 234 BEDS AT THE [facility] Omeprazole (Omeprazole 20 Mg Capsule.) 20 mg PO DAILY@0630 COUNTS INCLUDE 234 BEDS AT THE [facility] Last Admin: 12/01/24 06:13 Dose: 20 mg Documented By: KHOA Ondansetron HCl (Ondansetron Hcl 4 Mg/2 Ml Vial) 4 mg IVPUSH Q8H PRN PRN Reason: Nausea and Vomiting Senna (Sennosides 8.6 Mg Tablet) 17.2 mg PO BEDTIME COUNTS INCLUDE 234 BEDS AT THE [facility] Last Admin: 11/30/24 22:50 Dose: 17.2 mg Documented By: TSAVIL Sodium Chloride (0.9 % Sodium Chloride Flush 3 Ml Syringe) 3 ml IVFLUSH QSHIFT COUNTS INCLUDE 234 BEDS AT THE [facility] Last Admin: 12/01/24 07:23 Dose: Not Given Documented By: CHRISTAL Non-Admin Reason: IV Running Thiamine HCl (Thiamine Hcl 100 Mg Tablet) 100 mg PO DAILY [facility] Stop: 12/04/24 08:59 Labs 12/01/24 05:28 12/01/24 05:28 Labs: Laboratory Results - last 24 hr 11/30/24 11/30/24 11/30/24 17:06 17:38 19:00 MCV 86.8 MCH 30.0 MCHC 34.6 RDW 13.2 Plt Count 382 D MPV 10.4 Immature Gran % (Auto) 0.5 H Neut % (Auto) 86.9 H Lymph % (Auto) 3.2 L [place] % (Auto) 9.1 Eos % (Auto) 0.0 Baso % (Auto) 0.3 Lymph # (Auto) 0.7 L [place] # (Auto) 2.1 H Eos # (Auto) 0.0 Baso # (Auto) 0.1 Abs Immat Gran (auto) 0.12 H Absolute Neuts (auto) 20.2 H Absolute Nucleated RBC 0.000 Nucleated RBC % (auto) 0.0 Smear Tech's Comments VERIFIED Anion Gap 24 H Estim Creat Clear Calc 30.8 Estimated GFR 21 POC Glucose 177 H Random Glucose 157 H Osmolality Lactic Acid 2.3 H* Lactic Acid F/U @ 2Hr Calcium 10.5 H D Magnesium 2.3 Total Bilirubin 0.7 AST 21 ALT 30 Alkaline Phosphatase 86 Total Creatine Kinase 220 H Total Protein 8.1 H Albumin 5.6 H Lipase Urine Color Urine Appearance Urine pH Ur Specific [place] Urine Protein Urine Glucose (UA) Urine Ketones Urine Blood Urine Nitrite Ur Leukocyte Esterase Urine RBC Urine WBC Ur Squamous Epith Cells Urine Bacteria Hyaline Casts Granular Casts Urine Osmolality Urine Creatinine Urine Opiates Screen Ur Buprenorphine Scrn Ur Oxycodone Screen Urine Methadone Screen Urine Fentanyl Screen Ur Barbiturates Screen Ur Phencyclidine Scrn Ur Amphetamines Screen U Benzodiazepines Scrn Urine Cocaine Screen U Marijuana (THC) Screen Ethyl Alcohol 11 11/30/24 11/30/24 11/30/24 21:51 21:52 23:01 MCV MCH MCHC RDW Plt Count MPV Immature Gran % (Auto) Neut % (Auto) Lymph % (Auto) [place] % (Auto) Eos % (Auto) Baso % (Auto) Lymph # (Auto) [place] # (Auto) Eos # (Auto) Baso # (Auto) Abs Immat Gran (auto) Absolute Neuts (auto) Absolute Nucleated RBC Nucleated RBC % (auto) Smear Tech's Comments Anion Gap Estim Creat Clear Calc Estimated GFR POC Glucose Random Glucose Osmolality Lactic Acid Lactic Acid F/U @ 2Hr 2.2 H* Calcium Magnesium Total Bilirubin AST ALT Alkaline Phosphatase Total Creatine Kinase Total Protein Albumin Lipase Urine Color Yellow Urine Appearance Cloudy Urine pH 5.5 Ur Specific [place] 1.015 Urine Protein 30 (1+) H Urine Glucose (UA) Negative Urine Ketones 15 Urine Blood Small (1+) H Urine Nitrite Negative Ur Leukocyte Esterase Negative Urine RBC 3-5 H Urine WBC 0-5 Ur Squamous Epith Cells 6-10 Urine Bacteria None Seen Hyaline Casts >20 Granular Casts Present Urine Osmolality 475 Urine Creatinine 195.97 Urine Opiates Screen Not Detected Ur Buprenorphine Scrn Positive H Ur Oxycodone Screen Not Detected Urine Methadone Screen Not Detected Urine Fentanyl Screen Not Detected Ur Barbiturates Screen Not Detected Ur Phencyclidine Scrn Not Detected Ur Amphetamines Screen Not Detected U Benzodiazepines Scrn Not Detected Urine Cocaine Screen POSITIVE H U Marijuana (THC) Screen POSITIVE H Ethyl Alcohol 12/01/24 05:28 MCV 86.2 MCH 30.3 MCHC 35.1 RDW 13.5 Plt Count 211 D MPV 10.2 Immature Gran % (Auto) 0.4 Neut % (Auto) 77.5 H Lymph % (Auto) 11.3 L [place] % (Auto) 9.6 Eos % (Auto) 0.6 Baso % (Auto) 0.6 Lymph # (Auto) 1.5 [place] # (Auto) 1.3 H Eos # (Auto) 0.1 Baso # (Auto) 0.1 Abs Immat Gran (auto) 0.06 H Absolute Neuts (auto) 10.5 H Absolute Nucleated RBC 0.000 Nucleated RBC % (auto) 0.0 Smear Tech's Comments Anion Gap 13 Estim Creat Clear Calc 71.7 Estimated GFR 56 POC Glucose Random Glucose 115 Osmolality 294 Lactic Acid 1.2 Lactic Acid F/U @ 2Hr Calcium 8.5 D Magnesium 2.1 Total Bilirubin 0.3 AST 28 ALT 20 Alkaline Phosphatase 61 Total Creatine Kinase 796 H Total Protein 5.4 L Albumin 3.7 Lipase 11 Urine Color Urine Appearance Urine pH Ur Specific [place] Urine Protein Urine Glucose (UA) Urine Ketones Urine Blood Urine Nitrite Ur Leukocyte Esterase Urine RBC Urine WBC Ur Squamous Epith Cells Urine Bacteria Hyaline Casts Granular Casts Urine Osmolality Urine Creatinine Urine Opiates Screen Ur Buprenorphine Scrn Ur Oxycodone Screen Urine Methadone Screen Urine Fentanyl Screen Ur Barbiturates Screen Ur Phencyclidine Scrn Ur Amphetamines Screen U Benzodiazepines Scrn Urine Cocaine Screen U Marijuana (THC) Screen Ethyl Alcohol Assessment and Plan (1) Cocaine use disorder, moderate, dependence: Status: Acute (2) Alcohol use disorder: Status: Acute (3) Suicidal ideation: Status: Acute (4) MDD (major depressive disorder), recurrent episode, severe: Status: Acute (5) Chronic post-traumatic stress disorder (PTSD): Status: Acute (6) Crack cocaine use: Status: Acute (7) Alcohol use disorder: Status: Chronic (8) Opioid use disorder: Status: Chronic (9) Alcohol withdrawal syndrome: Status: Acute Plan Pt is a 54 yo male with PMH ETOH abuse, Substance use disorder with history of overdose/Narcan, PTSD, depression/ anxiety, insomnia, marijuana, liver fibrosis, ? TBI, Hep C undetected after tx done last IVD use in 2004, R hip replacement 08/2024 at [facility] is being admitted for IVONNE and alcohol and substance use disorder. Patient is having suicidal ideations and crisis services involved patient will likely will require a section 12. One-to-one in place. IVONNE/ AGMA - likely prerenal and intrarenal resolving Pre renal secondary to poor p.o. intake Intrarenal secondary to rhabdomyolysis Patient has IVONNE and admonished resolving secondary to aggressive fluid resuscitation Lactic acidosis resolved with fluid hydration Nephrology was consulted on admission, appreciate recs-likely secondary to IVONNE Relapse crack cocaine/ alcohol use/ mhx of seizures secondary to withdrawal -Urine tox screen positive for , buprenorphine (patient has prescription), cocaine (patient was admitted for this) marijuana -COWs protocol in place continue -CIWA protocol in place using valium, pt cannot tolerate phenobarbitol -Thiamine, FOlic Acid, MVI ordered -No hx of pancreatitis, Lipase pending, LFTs stable -Possible seizure in the field per pt, no way to confirm, seizure precautions in place, pt is not post tictal -Full liquid diet allowed -Telemetry -Addictions consulted - -MG is stable, check daily HX of substance use disorder Active SI - on SUWA Past Psychiatric History: -Past meds: SSRIs/ SNRIs ?didnt seem to do a lot? and had SEs, buspar (didnt help), seroquel (wt gain), risperdal (wt gain), clonidine, remeron (wt gain), campral (lack of efficacy) -Long hx of inpatient admissions for SI, substance use and alcohol abuse, depression, and PTSD. -Has a dx of a hx of overdosing on wellbutrin -Pt normally on Brixadi, not available inpatient -Psychiatry consulted -1:[address] -Crisis services on board -Pharmacy to provide conversion Plan is to transfer the patient to psych upon clearance medically-likely tomorrow Leukocytosis Likely secondary to acute illness, less likely to have sepsis Patient responded to aggressive hydration with normalization of lactate, and leukocytosis DVT Prophylaxis: Heparin SC PPI Prophylaxis: Omeprazole Total time managing care of this patient today: 35 minutes. Quality Stroke Does the patient have a stroke diagnosis?: No Reason for No Anti-thrombotic by Day Two: N/A - Med Ordered VTE Prior VTE?: No VTE Risk Level:: Medical - moderate - high VTE Device Contraindication: N/A - Device Ordered VTE Drug Contraindication: N/A - Med Ordered
[2024-12-01] MEDS: Nicotine 21 MG PATCH.TD24 TRANSDERMA (07:57)
--- NOTE | 2024-12-01 08:59 | MHC.CM.PN ---
Patient was staying at a [place] and using substances while there. Patient will require a Care Team Consult r/t SI and a Recovery Team Consult (Polysubstance Abuse) to assist with disposition. CM has initiated and will follow for dc planning. NO PCP & no HCP in place. Patient may need assist with transport at time of dc.
--- NOTE | 2024-12-01 10:55 | PM.CNNEP ---
History of Present Illness Reason for Consult Consult date: 12/01/24 Chief Complaint Chief complaint: AMS/Drug use History of Present Illness Narrative: 54 y/o male with history of alcohol abuse, opiate use disorder, PTSD, ?TBI, hep C undetectable after last IVDU in 2004. Presented 11/30 after crack cocaine and alcohol use x4 months in skilled nursing house, reportedly drinking 6pack of beer +3 nips daily. Last drink 11/29. Nephrology consulted for IVONNE. Creatinine 3.09 on 11/30 evening (previous level 0.81 in Apr 2024) Creatinine 1.33 on 12/01 morning, received LR infusion overnight Patient reports he was very dehydrated when he came into the hospital- was not eating or drinking well for some time. Reports feeling improvement. No specific concerns/complaints. He is making urine. Review of Systems Constitutional: Reports no additional constitutional complaints Cardiovascular: Denies chest pain, Denies leg edema, Denies lightheadedness and Denies dyspnea Respiratory: Denies dyspnea Gastrointestinal: Denies abdominal pain, Denies diarrhea, Denies nausea and Denies vomiting Genitourinary: Denies hematuria, Denies oliguria, Denies dysuria and Denies flank pain Musculoskeletal: Denies arthralgias and Denies joint swelling Skin/Breast: Denies rash PMFSH Past Medical History Medical History Elevated LFTs Major depression First degree burn of fingers and thumb Bupropion overdose Intentional overdose Suicide attempt Medical clearance for psychiatric admission Incidental pulmonary nodule Hepatic steatosis Alcohol use disorder Hepatitis C antibody positive in blood Alcohol dependence EtOH dependence Anxiety Chronic post-traumatic stress disorder (PTSD) MDD (major depressive disorder), recurrent episode, severe Depression Family History Family History Mother Diabetes mellitus Father Leukemia Surgical History Surgical History History of right hip replacement History of mandibular surgery Social History Social History Household Members: Other Household Members Other:: [employer] program Housing: House Housing Other:: [employer] program Do you presently have visiting nurse or other home services: No Unable to assess alcohol history related to: Unknown Alcohol intake: current Alcohol intake frequency: 3 or more drinks per day Alcohol type: hard liquor Comment: sitter Patient Tobacco Use Status: Former Tobacco user Tobacco use type: Cigarette Cigarette Packs Per Day: 1 Cigarettes Per Day: 10 Years Smoked: 20 Smoked in Last 30 Days: No e-Cigarette/Vaping Use: Currently Using Second Hand Smoke Exposure: No Use of substances other than those prescribed or required for medical reasons: Yes Substance Use Type: Crack/Cocaine Substance Use Frequency: Daily Last Used Substance: Hours (ago) Any prior treatment program specific to substance use: No Advance Directives: No Advance Directives Information Provided: No Do you have a plan to hurt others: No Plan Nutrition Risks: No Nutritional Risk service: No Current occupational status: unemployed Sexual orientation: Straight/Heterosexual Travel History Ebola Risk: Travel/Contact With Anyone From Affected Area/s: No Has Patient Experienced Ebola Symptoms: No Meds Allergies Allergy/AdvReac Type Severity Reaction Status Date / Time ketamine AdvReac Severe Agitated Verified 11/30/24 17:06 phenobarbital AdvReac Vomiting Verified 11/30/24 17:06 Active Medications: Current Medications Acetaminophen (Acetaminophen 325 Mg Tablet) 650 mg PO Q6H PRN PRN Reason: Pain, Mild 1-3,fever,headache Albuterol/Ipratropium (Albuterol/Iprat 2.5/0.5mg 3 Ml Ampul.Neb) 3 ml INHALE Q4H PRN PRN Reason: Shortness of Breath/Wheezing Buprenorphine/Naloxone (Buprenorphine/Naloxone 4/1 Mg Film) 1 film SUBLINGUAL BID PRN PRN Reason: Opiate Withdrawal Calcium Carbonate (Calcium Carbonate 750 Mg Tab.Chew) 750 mg PO Q4H PRN PRN Reason: Heartburn Diazepam (Diazepam 10 Mg/2 Ml Cartridge) 10 mg IVPUSH Q6H PRN PRN Reason: Alcohol Withdrawal Stop: 12/02/24 21:41 Diazepam (Diazepam 10 Mg/2 Ml Cartridge) 10 mg IVPUSH Q6H [facility] Stop: 12/01/24 16:46 Last Admin: 12/01/24 12:11 Dose: 10 mg Diazepam (Diazepam 10 Mg/2 Ml Cartridge) 5 mg IVPUSH Q4H PRN PRN Reason: Alcohol Withdrawal Stop: 12/03/24 21:44 Famotidine (Famotidine 20 Mg Tablet) 20 mg PO BID [facility] Last Admin: 12/01/24 07:57 Dose: 20 mg Folic Acid (Folic Acid 1 Mg Tablet) 1 mg PO DAILY [facility] Stop: 12/04/24 08:59 Last Admin: 12/01/24 07:57 Dose: 1 mg Heparin Sodium (Porcine) (Heparin Sodium,Porcine 5,000 Unit/Ml Vial) 5,000 unit SUBCUT Q8H [facility] Last Admin: 12/01/24 12:11 Dose: 5,000 unit Lactated Ringer's (Lr) 1,000 mls @ 125 mls/hr IVCONT .Q8H [facility] Last Admin: 12/01/24 06:17 Dose: 125 mls/hr Magnesium Hydroxide (Milk Of Magnesia 30 Ml Oral.Susp) 30 ml PO DAILY PRN PRN Reason: Constipation Melatonin (Melatonin 3 Mg Tablet) 6 mg PO BEDTIME PRN PRN Reason: Insomnia Multivitamins/Vitamin C (Multivitamin Tablet) 1 tab PO DAILY [facility] Stop: 12/04/24 08:59 Last Admin: 12/01/24 07:57 Dose: 1 tab Nicotine (Nicotine 21 Mg Patch.Td24) 21 mg TRANSDERMA DAILY [facility] Last Admin: 12/01/24 07:57 Dose: 21 mg Non-Formulary Medication (Buprenorphine [Brixadi]) 96 mg SUBCUT Q28D [facility] Omeprazole (Omeprazole 20 Mg Capsule.Dr) 20 mg PO DAILY@0630 [facility] Last Admin: 12/01/24 06:13 Dose: 20 mg Ondansetron HCl (Ondansetron Hcl 4 Mg/2 Ml Vial) 4 mg IVPUSH Q8H PRN PRN Reason: Nausea and Vomiting Senna (Sennosides 8.6 Mg Tablet) 17.2 mg PO BEDTIME [facility] Last Admin: 11/30/24 22:50 Dose: 17.2 mg Sodium Chloride (0.9 % Sodium Chloride Flush 3 Ml Syringe) 3 ml IVFLUSH QSHIFT [facility] Last Admin: 12/01/24 07:23 Dose: Not Given Thiamine HCl (Thiamine Hcl 100 Mg Tablet) 100 mg PO DAILY [facility] Stop: 12/04/24 08:59 Last Admin: 12/01/24 07:57 Dose: 100 mg Home Medications ?Medication ?Instructions ?Recorded ?Confirmed ?Last Taken ?Type buprenorphine 96 mg/0.27 mL 96 mg subcut Q28D 11/30/24 11/30/2410/21/25 History solution,exten.rel.subcutaneous syringe (Brixadi Monthly) bupropion HCl 150 mg 24 hr tablet, 150 mg PO DAILY 11/30/24 11/30/24 11/29/24 History extended release (Wellbutrin XL) bupropion HCl 300 mg 24 hr tablet, 300 mg PO DAILY 11/30/24 11/30/24 11/29/24 History extended release (Wellbutrin XL) Physical Exam Vital Signs: Last Vital Signs Temp 97.4 F 12/01/24 12:27 Pulse 72 12/01/24 12:27 Resp 13 12/01/24 12:27 BP 120/69 12/01/24 12:27 Pulse Ox 98 12/01/24 12:27 O2 Del Method Room Air 12/01/24 12:27 BMI result Body Mass Index 23.9 Const General: no acute distress, alert and awake Resp Effort & Inspection: normal respiratory effort and able to speak in complete sentences Auscultation: clear to auscultation bilaterally Cardio Rate: regular rate Rhythm: regular rhythm Heart sounds: S1 normal heart sound present and S2 normal heart sound present GI Palpation (GI): Soft to palpation and nontender General: Yes no CVA tenderness Back/Spine/Pelvis Back: no CVA tenderness Skin Rashes: no rashes Extrem General: No edema Results Lab Results 12/01/24 05:28 12/01/24 05:28 Lab results: Chemistry 11/30/24 12/01/24 17:38 05:28 Sodium 142 140 Potassium 4.5 3.8 Carbon Dioxide 19 L 20 L BUN 20 H 22 H Creatinine 3.09 H 1.33 Calcium 10.5 H D 8.5 D Hematology 11/30/24 12/01/24 17:38 05:28 WBC 23.2 H 13.5 H Hgb 15.9 D 12.5 L D Plt Count 382 D 211 D Urinalysis 11/30/24 21:51 Urine Color Yellow Urine Appearance Cloudy Urine pH 5.5 Ur Specific [place] 1.015 Urine Protein 30 (1+) H Urine Glucose (UA) Negative Urine Ketones 15 Urine Blood Small (1+) H Urine Nitrite Negative Ur Leukocyte Esterase Negative Urine RBC 3-5 H Urine WBC 0-5 Ur Squamous Epith Cells 6-10 Hyaline Casts >20 Urine Studies 11/30/24 23:01 Urine Osmolality 475 Urine Creatinine 195.97 Assessment and Plan (1) IVONNE (acute kidney injury): Status: Acute (2) Alcohol use disorder: Status: Acute Plan IVONNE likely pre-renal injury secondary to hypovolemia from dehydration creatinine has improved significantly within 12 hour period with fluid rescuscitation anticipate continued improvement- continue current regimen, encourage oral hydration/nutrition Avoid nephrotoxins, alcohol/drug abstinence Discussed with Dr Cortez. Procedures Date of Service Date of Service: 12/01/24
--- NOTE | 2024-12-01 15:14 | HO.ADDICTCON ---
History of Present Illness Date of Service: 12/01/2024 Chief Complaint: AMS/Drug use Reason for Consult: JENIFER Sources of Information: patient interviewed and chart reviewed HPI Narrative: Patient is a 54 year old male with history of MDD, OUD, STuD, and AUD. Presented to ED reporting muscle pain after drinking and using crack cocaine earlier in the day. Febrile and tachy in ED (likely due to being outside all day)IVONNE--medically admitted and started on benzodiazepine withdrawal protocol. Patient known to t/w via previous admission. Seen in room 5 of main ED. He is sleeping upon approach, but wakes easily to voice. T/w inquired about suboxone/Brixadi. He reports he has not had the injection in over a month, but has been taking 4mg BID PRN. Would like to continue that while here. He appears comfortable overall and denies any withdrawal sx, but is not feeling great Admission note states that patient reported drinking a 6 pack and several nips daily for some time, and yesterday bought crack cocaine. Had been residing at a long term house. Labs reviewed--UDS +cocaine , buprenorphine, EtOH level 11 Creatinine improved since admission (3.09 down to 1.33) Past Psychiatric History: -Past meds: SSRIs/ SNRIs ?didnt seem to do a lot? and had SEs, buspar (didnt help), seroquel (wt gain), risperdal (wt gain), clonidine, remeron (wt gain), campral (lack of efficacy) -Long hx of inpatient admissions for SI, substance use and alcohol abuse, depression, and PTSD. -Has a dx of a hx of overdosing on wellbutrin Medical Evaluation Reviewed: Yes Review of Systems Constitutional: Reports as per HPI and Reports no additional constitutional complaints Diagnostics Vital Signs (24Hr): Vital Signs - 24 hr 11/30/24 17:02 11/30/24 17:11 11/30/24 17:44 Temperature 98.4 F Pulse Rate 128 H 127 H 103 H Respiratory Rate 18 18 30 H Blood Pressure 00/00 L 123/71 123/71 Pulse Oximetry 95 97 97 Oxygen Delivery Method Room Air Room Air 11/30/24 17:53 11/30/24 18:35 11/30/24 20:45 Temperature 98.8 F 98.4 F Pulse Rate 96 96 93 Respiratory Rate 21 H 24 H 15 Blood Pressure 125/81 104/66 123/73 Pulse Oximetry 99 98 97 Oxygen Delivery Method Room Air Room Air Room Air 11/30/24 23:44 12/01/24 03:01 12/01/24 06:09 Temperature 98.1 F 98.0 F Pulse Rate 90 72 76 Respiratory Rate 20 12 12 Blood Pressure 130/52 L 112/63 105/72 Pulse Oximetry 98 98 97 Oxygen Delivery Method Room Air Room Air Room Air 12/01/24 06:40 12/01/24 11:41 12/01/24 12:27 Temperature 97.4 F 97.5 F 97.4 F Pulse Rate 66 56 72 Respiratory Rate 12 15 13 Blood Pressure 120/72 123/79 120/69 Pulse Oximetry 97 98 98 Oxygen Delivery Method Room Air Room Air Room Air 12/01/24 14:46 Temperature 97.6 F Pulse Rate 78 Respiratory Rate 98 H Blood Pressure 109/68 Pulse Oximetry 98 Oxygen Delivery Method Room Air BMI result Body Mass Index 23.9 Labs 12/01/24 05:28 12/01/24 05:28 Labs: Laboratory Results - last 48 hr 11/30/24 11/30/24 11/30/24 17:06 17:38 19:00 WBC 23.2 H RBC 5.30 D Hgb 15.9 D Hct 46.0 D MCV 86.8 MCH 30.0 MCHC 34.6 RDW 13.2 Plt Count 382 D MPV 10.4 Immature Gran % (Auto) 0.5 H Neut % (Auto) 86.9 H Lymph % (Auto) 3.2 L [place] % (Auto) 9.1 Eos % (Auto) 0.0 Baso % (Auto) 0.3 Lymph # (Auto) 0.7 L [place] # (Auto) 2.1 H Eos # (Auto) 0.0 Baso # (Auto) 0.1 Abs Immat Gran (auto) 0.12 H Absolute Neuts (auto) 20.2 H Absolute Nucleated RBC 0.000 Nucleated RBC % (auto) 0.0 Smear Tech's Comments VERIFIED Sodium 142 Potassium 4.5 Chloride 104 Carbon Dioxide 19 L Anion Gap 24 H BUN 20 H Creatinine 3.09 H Estim Creat Clear Calc 30.8 Estimated GFR 21 POC Glucose 177 H Random Glucose 157 H Osmolality Lactic Acid 2.3 H* Lactic Acid F/U @ 2Hr Calcium 10.5 H D Magnesium 2.3 Total Bilirubin 0.7 AST 21 ALT 30 Alkaline Phosphatase 86 Total Creatine Kinase 220 H Troponin I High Sens 36.3 H D Total Protein 8.1 H Albumin 5.6 H Lipase Urine Color Urine Appearance Urine pH Ur Specific [place] Urine Protein Urine Glucose (UA) Urine Ketones Urine Blood Urine Nitrite Ur Leukocyte Esterase Urine RBC Urine WBC Ur Squamous Epith Cells Urine Bacteria Hyaline Casts Granular Casts Urine Osmolality Urine Creatinine Urine Opiates Screen Ur Buprenorphine Scrn Ur Oxycodone Screen Urine Methadone Screen Urine Fentanyl Screen Ur Barbiturates Screen Ur Phencyclidine Scrn Ur Amphetamines Screen U Benzodiazepines Scrn Urine Cocaine Screen U Marijuana (THC) Screen Ethyl Alcohol 11 11/30/24 11/30/24 11/30/24 21:51 21:52 23:01 WBC RBC Hgb Hct MCV MCH MCHC RDW Plt Count MPV Immature Gran % (Auto) Neut % (Auto) Lymph % (Auto) [place] % (Auto) Eos % (Auto) Baso % (Auto) Lymph # (Auto) [place] # (Auto) Eos # (Auto) Baso # (Auto) Abs Immat Gran (auto) Absolute Neuts (auto) Absolute Nucleated RBC Nucleated RBC % (auto) Smear Tech's Comments Sodium Potassium Chloride Carbon Dioxide Anion Gap BUN Creatinine Estim Creat Clear Calc Estimated GFR POC Glucose Random Glucose Osmolality Lactic Acid Lactic Acid F/U @ 2Hr 2.2 H* Calcium Magnesium Total Bilirubin AST ALT Alkaline Phosphatase Total Creatine Kinase Troponin I High Sens Total Protein Albumin Lipase Urine Color Yellow Urine Appearance Cloudy Urine pH 5.5 Ur Specific [place] 1.015 Urine Protein 30 (1+) H Urine Glucose (UA) Negative Urine Ketones 15 Urine Blood Small (1+) H Urine Nitrite Negative Ur Leukocyte Esterase Negative Urine RBC 3-5 H Urine WBC 0-5 Ur Squamous Epith Cells 6-10 Urine Bacteria None Seen Hyaline Casts >20 Granular Casts Present Urine Osmolality 475 Urine Creatinine 195.97 Urine Opiates Screen Not Detected Ur Buprenorphine Scrn Positive H Ur Oxycodone Screen Not Detected Urine Methadone Screen Not Detected Urine Fentanyl Screen Not Detected Ur Barbiturates Screen Not Detected Ur Phencyclidine Scrn Not Detected Ur Amphetamines Screen Not Detected U Benzodiazepines Scrn Not Detected Urine Cocaine Screen POSITIVE H U Marijuana (THC) Screen POSITIVE H Ethyl Alcohol 12/01/24 05:28 WBC 13.5 H RBC 4.13 L D Hgb 12.5 L D Hct 35.6 L D MCV 86.2 MCH 30.3 MCHC 35.1 RDW 13.5 Plt Count 211 D MPV 10.2 Immature Gran % (Auto) 0.4 Neut % (Auto) 77.5 H Lymph % (Auto) 11.3 L [place] % (Auto) 9.6 Eos % (Auto) 0.6 Baso % (Auto) 0.6 Lymph # (Auto) 1.5 [place] # (Auto) 1.3 H Eos # (Auto) 0.1 Baso # (Auto) 0.1 Abs Immat Gran (auto) 0.06 H Absolute Neuts (auto) 10.5 H Absolute Nucleated RBC 0.000 Nucleated RBC % (auto) 0.0 Smear Tech's Comments Sodium 140 Potassium 3.8 Chloride 111 H Carbon Dioxide 20 L Anion Gap 13 BUN 22 H Creatinine 1.33 Estim Creat Clear Calc 71.7 Estimated GFR 56 POC Glucose Random Glucose 115 Osmolality 294 Lactic Acid 1.2 Lactic Acid F/U @ 2Hr Calcium 8.5 D Magnesium 2.1 Total Bilirubin 0.3 AST 28 ALT 20 Alkaline Phosphatase 61 Total Creatine Kinase 796 H Troponin I High Sens Total Protein 5.4 L Albumin 3.7 Lipase 11 Urine Color Urine Appearance Urine pH Ur Specific [place] Urine Protein Urine Glucose (UA) Urine Ketones Urine Blood Urine Nitrite Ur Leukocyte Esterase Urine RBC Urine WBC Ur Squamous Epith Cells Urine Bacteria Hyaline Casts Granular Casts Urine Osmolality Urine Creatinine Urine Opiates Screen Ur Buprenorphine Scrn Ur Oxycodone Screen Urine Methadone Screen Urine Fentanyl Screen Ur Barbiturates Screen Ur Phencyclidine Scrn Ur Amphetamines Screen U Benzodiazepines Scrn Urine Cocaine Screen U Marijuana (THC) Screen Ethyl Alcohol Mental Status Exam Mental Status Exam Level of Consciousness: Appropriate Patient Behavior: Appropriate Affect Description: Constricted Speech Pattern: Clear Thought Content: positive for Intact Medications Medications Current Medications Acetaminophen (Acetaminophen 325 Mg Tablet) 650 mg PO Q6H PRN PRN Reason: Pain, Mild 1-3,fever,headache Albuterol/Ipratropium (Albuterol/Iprat 2.5/0.5mg 3 Ml Ampul.Neb) 3 ml INHALE Q4H PRN PRN Reason: Shortness of Breath/Wheezing Buprenorphine/Naloxone (Buprenorphine/Naloxone 4/1 Mg Film) 1 film SUBLINGUAL BID PRN PRN Reason: Opiate Withdrawal Calcium Carbonate (Calcium Carbonate 750 Mg Tab.Chew) 750 mg PO Q4H PRN PRN Reason: Heartburn Diazepam (Diazepam 10 Mg/2 Ml Cartridge) 10 mg IVPUSH Q6H PRN PRN Reason: Alcohol Withdrawal Stop: 12/02/24 21:41 Diazepam (Diazepam 10 Mg/2 Ml Cartridge) 10 mg IVPUSH Q6H [facility] Stop: 12/01/24 16:46 Last Admin: 12/01/24 12:11 Dose: 10 mg Diazepam (Diazepam 10 Mg/2 Ml Cartridge) 5 mg IVPUSH Q4H PRN PRN Reason: Alcohol Withdrawal Stop: 12/03/24 21:44 Famotidine (Famotidine 20 Mg Tablet) 20 mg PO BID [facility] Last Admin: 12/01/24 07:57 Dose: 20 mg Folic Acid (Folic Acid 1 Mg Tablet) 1 mg PO DAILY [facility] Stop: 12/04/24 08:59 Last Admin: 12/01/24 07:57 Dose: 1 mg Heparin Sodium (Porcine) (Heparin Sodium,Porcine 5,000 Unit/Ml Vial) 5,000 unit SUBCUT Q8H [facility] Last Admin: 12/01/24 12:11 Dose: 5,000 unit Lactated Ringer's (Lr) 1,000 mls @ 125 mls/hr IVCONT .Q8H [facility] Last Admin: 12/01/24 14:36 Dose: 125 mls/hr Magnesium Hydroxide (Milk Of Magnesia 30 Ml Oral.Susp) 30 ml PO DAILY PRN PRN Reason: Constipation Melatonin (Melatonin 3 Mg Tablet) 6 mg PO BEDTIME PRN PRN Reason: Insomnia Multivitamins/Vitamin C (Multivitamin Tablet) 1 tab PO DAILY [facility] Stop: 12/04/24 08:59 Last Admin: 12/01/24 07:57 Dose: 1 tab Nicotine (Nicotine 21 Mg Patch.Td24) 21 mg TRANSDERMA DAILY [facility] Last Admin: 12/01/24 07:57 Dose: 21 mg Non-Formulary Medication (Buprenorphine [Brixadi]) 96 mg SUBCUT Q28D [facility] Omeprazole (Omeprazole 20 Mg Capsule.Dr) 20 mg PO DAILY@0630 [facility] Last Admin: 12/01/24 06:13 Dose: 20 mg Ondansetron HCl (Ondansetron Hcl 4 Mg/2 Ml Vial) 4 mg IVPUSH Q8H PRN PRN Reason: Nausea and Vomiting Senna (Sennosides 8.6 Mg Tablet) 17.2 mg PO BEDTIME [facility] Last Admin: 11/30/24 22:50 Dose: 17.2 mg Sodium Chloride (0.9 % Sodium Chloride Flush 3 Ml Syringe) 3 ml IVFLUSH QSHIFT [facility] Last Admin: 12/01/24 15:09 Dose: Not Given Thiamine HCl (Thiamine Hcl 100 Mg Tablet) 100 mg PO DAILY [facility] Stop: 12/04/24 08:59 Last Admin: 12/01/24 07:57 Dose: 100 mg Allergies Allergies Allergy/AdvReac Type Severity Reaction Status Date / Time ketamine AdvReac Severe Agitated Verified 11/30/24 17:06 phenobarbital AdvReac Vomiting Verified 11/30/24 17:06 Assessment & Plan Assessment & Plan (1) Alcohol use disorder: Status: Acute Code(s): F10.90 - Alcohol use, unspecified, uncomplicated Assessment and Plan: acute withdrawal---CIWA q4H diazepam PRN for withdrawal--unable to tolerate phenobarbital thiamine and folic acid 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 PMFSH Past Medical History Medical History Elevated LFTs Major depression First degree burn of fingers and thumb Bupropion overdose Intentional overdose Suicide attempt Medical clearance for psychiatric admission Incidental pulmonary nodule Hepatic steatosis Alcohol use disorder Hepatitis C antibody positive in blood Alcohol dependence EtOH dependence Anxiety Chronic post-traumatic stress disorder (PTSD) MDD (major depressive disorder), recurrent episode, severe Depression Family History Family History Mother Diabetes mellitus Father Leukemia Surgical History Surgical History History of right hip replacement History of mandibular surgery Social History Social History Household Members: Other Household Members Other:: [employer] Housing: Other Housing Other:: [employer] Do you presently have visiting nurse or other home services: No Unable to assess alcohol history related to: Unknown Alcohol intake: current Alcohol intake frequency: 3 or more drinks per day Alcohol type: hard liquor Comment: sitter Patient Tobacco Use Status: Current everyday Tobacco user Tobacco use type: Smokeless Tobacco Cigarette Packs Per Day: 1 Cigarettes Per Day: 10 Years Smoked: 20 e-Cigarette/Vaping Use: Currently Using Second Hand Smoke Exposure: No Substance Use Type: Crack/Cocaine service: No Current occupational status: unemployed Sexual orientation: Straight/Heterosexual
[2024-12-02] MEDS: diazePAM 10 MG/2 ML CARTRIDGE 5 MG IVPUSH (00:05)
[2024-12-02] MEDS: 0.9 % Sodium Chloride Flush 3 ML SYRINGE IVFLUSH ×2 (00:07→09:03)
[2024-12-02 04:00] VITALS: BP 133/76; PULSE 64; RESP 18; TEMP 36.4; O2SAT 97
[2024-12-02] MEDS: Lactated Ringers 1,000 ML 125 ML IVCONT (05:21)
[2024-12-02 06:00] VITALS: BMI 25.9
[2024-12-02 07:10] VITALS: BP 148/75; PULSE 60; RESP 18; TEMP 36.5; O2SAT 97
[2024-12-02 07:44] LABS: Hematocrit 34.5 % (42.0-52.0); Hemoglobin 11.7 g/dl (14.0-18.0); Mean Corpuscular HGB Conc 33.9 g/dl (31.0-36.0); Mean Corpuscular Hemoglobin 29.8 pg (27.0-33.0); Mean Corpuscular Volume 88.0 fL (80.0-98.0); NRBC Abs Auto 0.000 X10*3/uL (0.0-0.012); NRBC Pct Auto 0.0 /100WBC (0.0-0.2); Platelet Count 174 X10*3/uL (160-400); Red Blood Count 3.92 X10*6/uL (4.60-5.80); White Blood Count 5.6 X10*3/uL (4.8-10.8)
[2024-12-02 08:00] LABS: Alanine Aminotransferase 23 U/L (0-40); Albumin Level 3.4 g/dL (3.5-5.0); Alkaline Phosphatase 52 U/L (39-117); Anion Gap 11 (12-20); Aspartate Amino Transferase 35 U/L (5-37); Blood Urea Nitrogen 14 mg/dL (9-16); Calcium 8.5 mg/dL (8.4-10.2); Carbon Dioxide 24 mmol/L (22-29); Chloride 109 mmol/L (96-108); Creatinine Clr Calc Pharmacy 113.6; Estimated Glomerular Filt Rate > 60; Potassium 4.0 mmol/L (3.3-5.1); Sodium 140 mmol/L (135-145); Total Protein 5.2 g/dL (6.5-8.0)
--- NOTE | 2024-12-02 08:02 | HO.PM.IMPN ---
Subjective Subjective Date of Service: 12/02/24 Physical Exam Vital Signs: Vital Signs: Last Vital Signs Temp 97.7 F 12/02/24 07:10 Pulse 60 12/02/24 07:10 Resp 18 12/02/24 07:10 BP 148/75 H 12/02/24 07:10 Pulse Ox 97 12/02/24 07:10 O2 Del Method Room Air 12/02/24 07:10 BMI result Body Mass Index 25.9 Objective Data Active Medications Acetaminophen (Acetaminophen 325 Mg Tablet) 650 mg PO Q6H PRN PRN Reason: Pain, Mild 1-3,fever,headache Albuterol/Ipratropium (Albuterol/Iprat 2.5/0.5mg 3 Ml Ampul.Neb) 3 ml INHALE Q4H PRN PRN Reason: Shortness of Breath/Wheezing Buprenorphine/Naloxone (Buprenorphine/Naloxone 4/1 Mg Film) 1 film SUBLINGUAL BID PRN PRN Reason: Opiate Withdrawal Calcium Carbonate (Calcium Carbonate 750 Mg Tab.Chew) 750 mg PO Q4H PRN PRN Reason: Heartburn Diazepam (Diazepam 10 Mg/2 Ml Cartridge) 10 mg IVPUSH Q6H PRN PRN Reason: Alcohol Withdrawal Stop: 12/02/24 21:41 Last Admin: 12/01/24 21:27 Dose: 10 mg Documented By: HOMA Diazepam (Diazepam 10 Mg/2 Ml Cartridge) 5 mg IVPUSH Q4H PRN PRN Reason: Alcohol Withdrawal Stop: 12/03/24 21:44 Last Admin: 12/02/24 00:05 Dose: 5 mg Documented By: HOMA Famotidine (Famotidine 20 Mg Tablet) 20 mg PO BID [facility] Last Admin: 12/01/24 19:49 Dose: 20 mg Documented By: HOMA Folic Acid (Folic Acid 1 Mg Tablet) 1 mg PO DAILY [facility] Stop: 12/04/24 08:59 Last Admin: 12/01/24 07:57 Dose: 1 mg Documented By: CHRISTAL Heparin Sodium (Porcine) (Heparin Sodium,Porcine 5,000 Unit/Ml Vial) 5,000 unit SUBCUT Q8H [facility] Last Admin: 12/02/24 05:21 Dose: 5,000 unit Documented By: HOMA Lactated Ringer's (Lr) 1,000 mls @ 125 mls/hr IVCONT .Q8H [facility] Last Admin: 12/02/24 05:21 Dose: 125 mls/hr Documented By: HOMA Magnesium Hydroxide (Milk Of Magnesia 30 Ml Oral.Susp) 30 ml PO DAILY PRN PRN Reason: Constipation Melatonin (Melatonin 3 Mg Tablet) 6 mg PO BEDTIME PRN PRN Reason: Insomnia Last Admin: 12/02/24 00:09 Dose: 6 mg Documented By: HOMA Multivitamins/Vitamin C (Multivitamin Tablet) 1 tab PO DAILY [facility] Stop: 12/04/24 08:59 Last Admin: 12/01/24 07:57 Dose: 1 tab Documented By: CHRISTAL Nicotine (Nicotine 21 Mg Patch.Td24) 21 mg TRANSDERMA DAILY [facility] Last Admin: 12/01/24 07:57 Dose: 21 mg Documented By: CHRISTAL Omeprazole (Omeprazole 20 Mg Capsule.Dr) 20 mg PO DAILY@0630 [facility] Last Admin: 12/02/24 05:22 Dose: 20 mg Documented By: HOMA Ondansetron HCl (Ondansetron Hcl 4 Mg/2 Ml Vial) 4 mg IVPUSH Q8H PRN PRN Reason: Nausea and Vomiting Senna (Sennosides 8.6 Mg Tablet) 17.2 mg PO BEDTIME [facility] Last Admin: 12/01/24 19:49 Dose: 17.2 mg Documented By: HOMA Sodium Chloride (0.9 % Sodium Chloride Flush 3 Ml Syringe) 3 ml IVFLUSH QSHIFT [facility] Last Admin: 12/02/24 00:07 Dose: 3 ml Documented By: HOMA Thiamine HCl (Thiamine Hcl 100 Mg Tablet) 100 mg PO DAILY [facility] Stop: 12/04/24 08:59 Last Admin: 12/01/24 07:57 Dose: 100 mg Documented By: CHRISTAL Labs 12/02/24 07:13 12/02/24 07:13 Labs: Laboratory Results - last 24 hr 12/02/24 07:13 MCV 88.0 MCH 29.8 MCHC 33.9 RDW 13.6 Plt Count 174 MPV 10.9 Absolute Nucleated RBC 0.000 Nucleated RBC % (auto) 0.0 Anion Gap 11 L Estim Creat Clear Calc 113.6 Estimated GFR > 60 Random Glucose 115 Calcium 8.5 Total Bilirubin 0.3 AST 35 ALT 23 Alkaline Phosphatase 52 Total Protein 5.2 L Albumin 3.4 L Microbiology Microbiology Results: Microbiology 11/30/24 21:04 Blood Culture - Preliminary Blood - Venous No growth after 24 hours. 11/30/24 21:04 Blood Culture - Preliminary Blood - Venous No growth after 24 hours. Quality Stroke Does the patient have a stroke diagnosis?: No Reason for No Anti-thrombotic by Day Two: N/A - Med Ordered VTE Prior VTE?: No VTE Risk Level:: Medical - moderate - high VTE Device Contraindication: N/A - Device Ordered VTE Drug Contraindication: N/A - Med Ordered
[2024-12-02] MEDS: diazePAM 10 MG/2 ML CARTRIDGE IVPUSH (09:00)
[2024-12-02] MEDS: Nicotine 21 MG PATCH.TD24 TRANSDERMA (09:04)
--- NOTE | 2024-12-02 10:49 | HO.ADDICTPRO ---
Subjective Subjective Date of Service: 12/02/24 Reason For Visit: AMS/Drug use Interim History: Patient seen in room 460. Sleeping upon arrival, however wakes easily to voice. Reports overnight was okay, not bad Stating he will be transitioning to PO diazepam later today Last documented CIWA score 0400 -3 Patient reporting he has been residing at the [facility] in [place]. He was seeing [facility] in [place] for Brixadi--however it seems like plan was to d/c this as he reports buprenorphine was only for pain management of hip and since he had a total hip replacement in September, pain is resolved. He reports getting btwn 4-5 injections. last one in October --minimal withdrawal sx since then, and when he does, he states it is mainly GI realted. Now withdrawal since here, and has not had any of the PRNs that ordered for him Discussed recurrence with alcohol and crack cocaine--he shares that he got too comfortable and stopped doing the things that were previously helpful-- meetings, and not isolating. He is currently awaiting evaluation from the CARE team due to reported suicidal ideation at admission. Review of Systems Constitutional: Reports as per HPI and Reports no additional constitutional complaints Mental Status Exam Mental Status Exam Patient Appearance: Appropriate Level of Consciousness: Awake, Appropriate and Alert Patient Behavior: Appropriate and Cooperative Affect Description: Calm Speech Pattern: Clear Hallucinations: None Thought Content: positive for Intact Judgement: Good Diagnostics Vital Signs (24Hr): Vital Signs - 24 hr 12/01/24 11:41 12/01/24 12:27 12/01/24 14:46 Temperature 97.5 F 97.4 F 97.6 F Pulse Rate 56 72 78 Respiratory Rate 15 13 98 H Blood Pressure 123/79 120/69 109/68 Pulse Oximetry 98 98 98 Oxygen Delivery Method Room Air Room Air Room Air 12/01/24 16:10 12/01/24 19:32 12/01/24 23:32 Temperature 98.4 F 98.1 F 97.6 F Pulse Rate 75 70 71 Respiratory Rate 15 18 18 Blood Pressure 131/74 134/70 140/90 H Pulse Oximetry 99 99 98 Oxygen Delivery Method Room Air Room Air Room Air 12/02/24 04:00 12/02/24 07:10 Temperature 97.5 F 97.7 F Pulse Rate 64 60 Respiratory Rate 18 18 Blood Pressure 133/76 148/75 H Pulse Oximetry 97 97 Oxygen Delivery Method Room Air Room Air BMI result Body Mass Index 25.9 Labs 12/02/24 07:13 12/02/24 07:13 Labs: Laboratory Results - last 48 hr 11/30/24 11/30/24 11/30/24 17:06 17:38 19:00 WBC 23.2 H RBC 5.30 D Hgb 15.9 D Hct 46.0 D MCV 86.8 MCH 30.0 MCHC 34.6 RDW 13.2 Plt Count 382 D MPV 10.4 Immature Gran % (Auto) 0.5 H Neut % (Auto) 86.9 H Lymph % (Auto) 3.2 L [place] % (Auto) 9.1 Eos % (Auto) 0.0 Baso % (Auto) 0.3 Lymph # (Auto) 0.7 L [place] # (Auto) 2.1 H Eos # (Auto) 0.0 Baso # (Auto) 0.1 Abs Immat Gran (auto) 0.12 H Absolute Neuts (auto) 20.2 H Absolute Nucleated RBC 0.000 Nucleated RBC % (auto) 0.0 Smear Tech's Comments VERIFIED Sodium 142 Potassium 4.5 Chloride 104 Carbon Dioxide 19 L Anion Gap 24 H BUN 20 H Creatinine 3.09 H Estim Creat Clear Calc 30.8 Estimated GFR 21 POC Glucose 177 H Random Glucose 157 H Osmolality Lactic Acid 2.3 H* Lactic Acid F/U @ 2Hr Calcium 10.5 H D Magnesium 2.3 Total Bilirubin 0.7 AST 21 ALT 30 Alkaline Phosphatase 86 Total Creatine Kinase 220 H Troponin I High Sens 36.3 H D Total Protein 8.1 H Albumin 5.6 H Lipase Urine Color Urine Appearance Urine pH Ur Specific [place] Urine Protein Urine Glucose (UA) Urine Ketones Urine Blood Urine Nitrite Ur Leukocyte Esterase Urine RBC Urine WBC Ur Squamous Epith Cells Urine Bacteria Hyaline Casts Granular Casts Urine Osmolality Urine Creatinine Urine Opiates Screen Ur Buprenorphine Scrn Ur Oxycodone Screen Urine Methadone Screen Urine Fentanyl Screen Ur Barbiturates Screen Ur Phencyclidine Scrn Ur Amphetamines Screen U Benzodiazepines Scrn Urine Cocaine Screen U Marijuana (THC) Screen Ethyl Alcohol 11 11/30/24 11/30/24 11/30/24 21:51 21:52 23:01 WBC RBC Hgb Hct MCV MCH MCHC RDW Plt Count MPV Immature Gran % (Auto) Neut % (Auto) Lymph % (Auto) [place] % (Auto) Eos % (Auto) Baso % (Auto) Lymph # (Auto) [place] # (Auto) Eos # (Auto) Baso # (Auto) Abs Immat Gran (auto) Absolute Neuts (auto) Absolute Nucleated RBC Nucleated RBC % (auto) Smear Tech's Comments Sodium Potassium Chloride Carbon Dioxide Anion Gap BUN Creatinine Estim Creat Clear Calc Estimated GFR POC Glucose Random Glucose Osmolality Lactic Acid Lactic Acid F/U @ 2Hr 2.2 H* Calcium Magnesium Total Bilirubin AST ALT Alkaline Phosphatase Total Creatine Kinase Troponin I High Sens Total Protein Albumin Lipase Urine Color Yellow Urine Appearance Cloudy Urine pH 5.5 Ur Specific [place] 1.015 Urine Protein 30 (1+) H Urine Glucose (UA) Negative Urine Ketones 15 Urine Blood Small (1+) H Urine Nitrite Negative Ur Leukocyte Esterase Negative Urine RBC 3-5 H Urine WBC 0-5 Ur Squamous Epith Cells 6-10 Urine Bacteria None Seen Hyaline Casts >20 Granular Casts Present Urine Osmolality 475 Urine Creatinine 195.97 Urine Opiates Screen Not Detected Ur Buprenorphine Scrn Positive H Ur Oxycodone Screen Not Detected Urine Methadone Screen Not Detected Urine Fentanyl Screen Not Detected Ur Barbiturates Screen Not Detected Ur Phencyclidine Scrn Not Detected Ur Amphetamines Screen Not Detected U Benzodiazepines Scrn Not Detected Urine Cocaine Screen POSITIVE H U Marijuana (THC) Screen POSITIVE H Ethyl Alcohol 12/01/24 12/02/24 05:28 07:13 WBC 13.5 H 5.6 RBC 4.13 L D 3.92 L Hgb 12.5 L D 11.7 L Hct 35.6 L D 34.5 L MCV 86.2 88.0 MCH 30.3 29.8 MCHC 35.1 33.9 RDW 13.5 13.6 Plt Count 211 D 174 MPV 10.2 10.9 Immature Gran % (Auto) 0.4 Neut % (Auto) 77.5 H Lymph % (Auto) 11.3 L [place] % (Auto) 9.6 Eos % (Auto) 0.6 Baso % (Auto) 0.6 Lymph # (Auto) 1.5 [place] # (Auto) 1.3 H Eos # (Auto) 0.1 Baso # (Auto) 0.1 Abs Immat Gran (auto) 0.06 H Absolute Neuts (auto) 10.5 H Absolute Nucleated RBC 0.000 0.000 Nucleated RBC % (auto) 0.0 0.0 Smear Tech's Comments Sodium 140 140 Potassium 3.8 4.0 Chloride 111 H 109 H Carbon Dioxide 20 L 24 Anion Gap 13 11 L BUN 22 H 14 Creatinine 1.33 0.84 Estim Creat Clear Calc 71.7 113.6 Estimated GFR 56 > 60 POC Glucose Random Glucose 115 115 Osmolality 294 Lactic Acid 1.2 Lactic Acid F/U @ 2Hr Calcium 8.5 D 8.5 Magnesium 2.1 Total Bilirubin 0.3 0.3 AST 28 35 ALT 20 23 Alkaline Phosphatase 61 52 Total Creatine Kinase 796 H Troponin I High Sens Total Protein 5.4 L 5.2 L Albumin 3.7 3.4 L Lipase 11 Urine Color Urine Appearance Urine pH Ur Specific [place] Urine Protein Urine Glucose (UA) Urine Ketones Urine Blood Urine Nitrite Ur Leukocyte Esterase Urine RBC Urine WBC Ur Squamous Epith Cells Urine Bacteria Hyaline Casts Granular Casts Urine Osmolality Urine Creatinine Urine Opiates Screen Ur Buprenorphine Scrn Ur Oxycodone Screen Urine Methadone Screen Urine Fentanyl Screen Ur Barbiturates Screen Ur Phencyclidine Scrn Ur Amphetamines Screen U Benzodiazepines Scrn Urine Cocaine Screen U Marijuana (THC) Screen Ethyl Alcohol Medications Medications Current Medications Acetaminophen (Acetaminophen 325 Mg Tablet) 650 mg PO Q6H PRN PRN Reason: Pain, Mild 1-3,fever,headache Albuterol/Ipratropium (Albuterol/Iprat 2.5/0.5mg 3 Ml Ampul.Neb) 3 ml INHALE Q4H PRN PRN Reason: Shortness of Breath/Wheezing Buprenorphine/Naloxone (Buprenorphine/Naloxone 4/1 Mg Film) 1 film SUBLINGUAL BID PRN PRN Reason: Opiate Withdrawal Calcium Carbonate (Calcium Carbonate 750 Mg Tab.Chew) 750 mg PO Q4H PRN PRN Reason: Heartburn Diazepam (Diazepam 10 Mg/2 Ml Cartridge) 10 mg IVPUSH Q6H PRN PRN Reason: Alcohol Withdrawal Stop: 12/02/24 21:41 Last Admin: 12/01/24 21:27 Dose: 10 mg Diazepam (Diazepam 10 Mg/2 Ml Cartridge) 5 mg IVPUSH Q4H PRN PRN Reason: Alcohol Withdrawal Stop: 12/03/24 21:44 Last Admin: 12/02/24 00:05 Dose: 5 mg Famotidine (Famotidine 20 Mg Tablet) 20 mg PO BID [facility] Last Admin: 12/02/24 09:04 Dose: 20 mg Folic Acid (Folic Acid 1 Mg Tablet) 1 mg PO DAILY [facility] Stop: 12/04/24 08:59 Last Admin: 12/02/24 09:04 Dose: 1 mg Heparin Sodium (Porcine) (Heparin Sodium,Porcine 5,000 Unit/Ml Vial) 5,000 unit SUBCUT Q8H [facility] Last Admin: 12/02/24 05:21 Dose: 5,000 unit Lactated Ringer's (Lr) 1,000 mls @ 125 mls/hr IVCONT .Q8H [facility] Last Admin: 12/02/24 05:21 Dose: 125 mls/hr Magnesium Hydroxide (Milk Of Magnesia 30 Ml Oral.Susp) 30 ml PO DAILY PRN PRN Reason: Constipation Melatonin (Melatonin 3 Mg Tablet) 6 mg PO BEDTIME PRN PRN Reason: Insomnia Last Admin: 12/02/24 00:09 Dose: 6 mg Multivitamins/Vitamin C (Multivitamin Tablet) 1 tab PO DAILY [facility] Stop: 12/04/24 08:59 Last Admin: 12/02/24 09:03 Dose: 1 tab Nicotine (Nicotine 21 Mg Patch.Td24) 21 mg TRANSDERMA DAILY [facility] Last Admin: 12/02/24 09:04 Dose: 21 mg Omeprazole (Omeprazole 20 Mg Capsule.Dr) 20 mg PO DAILY@0630 [facility] Last Admin: 12/02/24 05:22 Dose: 20 mg Ondansetron HCl (Ondansetron Hcl 4 Mg/2 Ml Vial) 4 mg IVPUSH Q8H PRN PRN Reason: Nausea and Vomiting Senna (Sennosides 8.6 Mg Tablet) 17.2 mg PO BEDTIME [facility] Last Admin: 12/01/24 19:49 Dose: 17.2 mg Sodium Chloride (0.9 % Sodium Chloride Flush 3 Ml Syringe) 3 ml IVFLUSH QSHIFT [facility] Last Admin: 12/02/24 09:03 Dose: 3 ml Thiamine HCl (Thiamine Hcl 100 Mg Tablet) 100 mg PO DAILY [facility] Stop: 12/04/24 08:59 Last Admin: 12/02/24 09:04 Dose: 100 mg Allergies Allergies Allergy/AdvReac Type Severity Reaction Status Date / Time ketamine AdvReac Severe Agitated Verified 11/30/24 17:06 phenobarbital AdvReac Vomiting Verified 11/30/24 17:06 Assessment & Plan Assessment & Plan (1) Alcohol use disorder: Status: Chronic Assessment and Plan: continue diazepam taper--consider switching to scheduled taper vs symptom triggered. recommend 10mg q 8H (3 doses) then 10mg q12H (2 doses) and 10mg HS (1 dose) and then discontinue awaiting BH evaluation Total time managing care of this patient today __30__ minutes.
[2024-12-02 11:12] VITALS: BP 151/68; PULSE 61; RESP 18; TEMP 36.4; O2SAT 99
--- NOTE | 2024-12-02 13:41 | MHC.CARE ---
Pt was advised he will be a Dual DX bedsearch. Pt reported that this was unacceptable as he only wants M5. he then asks to sign a 3 day notice, he was advised he could not do so until he was on a unit. Pt is also advised he is on a section 12. Pt then reports he is unsatified with the care he is being given.
[2024-12-02 15:32] VITALS: BP 139/77; PULSE 66; RESP 18; TEMP 36.9; O2SAT 97
--- NOTE | 2024-12-02 16:09 | MHC.CARE ---
Pt was accepted [facility] for today 12/02/24. The accepting provider is Dr. Jp Paredes and ETA is 6pm. [facility] will call for report. The address is [address] [place] [id number]. RN & CARE Team notified.
--- NOTE | 2024-12-02 16:17 | MHC.CM.PN ---
Ambulance has been booked with [facility]; first available trip is 7:30 coil machine supervisor (,RN,Behavioral Health Specialist aware). [facility] indicated that if a, next available becomes available, Patient will be picked up earlier. New Section 12 is being completed.
--- NOTE | 2024-12-02 16:52 | P.DS_ITS ---
DS: Providers Provider Date of Service: 12/02/24 Date of admission: 11/30/24 20:47 Date of discharge: 12/02/24 Primary care physician: Unknown Physician Consults: 11/30/24 20:59 Consult to Nephrology Routine Consulting Provider: [facility] Reason for consultation: IVONNE, metabolic acidosis with AG 24 11/30/24 21:39 Addiction Medicine Provider Routine Consulting Provider: [facility] Reason for consultation: ETOH, Crack Cocaine use Has provider been notified: No 12/02/24 08:58 Inpt CARE Team Crisis Consult Routine Comment: Reason for consultation: assess for IPLOC 12/02/24 12:29 Consult to Psychiatry Routine Consulting Provider: [facility] Reason for consultation: Suicidal ideation DS: Diagnosis Discharge Diagnosis (1) Alcohol use disorder: Status: Chronic DS: Summary Hospital Course Hospital Course: Pt is a 54 yo male with PMH ETOH abuse, Substance use disorder with history of overdose/Narcan, PTSD, depression/ anxiety, insomnia, marijuana, liver fibrosis, ? TBI, Hep C undetected after tx done last IVD use in 2004, R hip replacement 08/2024 at [facility] is being admitted for IVONNE and alcohol and substance use disorder. Patient is having suicidal ideations and crisis services involved patient will likely will require a section 12. Pt was accepted to [facility] by [facility] for today 12/02/24. The accepting provider is Dr. Jp Paredes and ETA is 6pm. The address is [address] [place] [id number]. IVONNE/ AGMA - likely prerenal and intrarenal resolved with fluid resuscitation Pre renal secondary to poor p.o. intake Intrarenal secondary to rhabdomyolysis Patient has IVONNE 2/2 rhabdo and resolving secondary to aggressive fluid resuscitation Lactic acidosis resolved with fluid hydration Nephrology was consulted on admission, appreciate recs-likely secondary to IVONNE Relapse crack cocaine/ alcohol use/ mhx of seizures secondary to withdrawal -Urine tox screen positive for , buprenorphine (patient has prescription), cocaine (patient was admitted for this) marijuana -was managed with COWs protocol -CIWA protocol managed with Valium , later switched to Ativan as pt tolerated it better -Thiamine, FOlic Acid, MVI ordered -No hx of pancreatitis, Lipase pending, LFTs stable -Possible seizure in the field per pt, no way to confirm, seizure precautions in place, pt was not post tictal CPK downtrending HX of substance use disorder Active SI - on SUWA Past Psychiatric History: -Past meds: SSRIs/ SNRIs ?didnt seem to do a lot? and had SEs, buspar (didnt help), seroquel (wt gain), risperdal (wt gain), clonidine, remeron (wt gain), campral (lack of efficacy) -Long hx of inpatient admissions for SI, substance use and alcohol abuse, depression, and PTSD. -Has a dx of a hx of overdosing on wellbutrin -Pt normally on Brixadi, not available inpatient - Pt is Section 12 , and accepting physician Dr. Jp Paredes and ETA is 6pm Leukocytosis Likely secondary to acute illness, less likely to have sepsis Patient responded to aggressive hydration with normalization of lactate, and leukocytosis DVT Prophylaxis: Heparin SC PPI Prophylaxis: Omeprazole Time Attestation Discharge Coordination Time (in mins): 35 Quality: Safe Use of Opioids Does Pt have an Active Cancer Diagnosis on the Problem List?: No Quality: Stroke Does the patient have a stroke diagnosis?: No Physical Exam Vital Signs: Vital Signs: Last Vital Signs Temp 98.4 F 12/02/24 15:32 Pulse 66 12/02/24 15:32 Resp 18 12/02/24 15:32 BP 139/77 12/02/24 15:32 Pulse Ox 97 12/02/24 15:32 O2 Del Method Room Air 12/02/24 15:32 BMI result Body Mass Index 25.9 DS: Data Data Completed and Pending Completed studies during hospitalization [Text1]: Procedures Detoxification Services for Substance Abuse Treatment (01/30/24) Labs on day of discharge: Laboratory Results - last 24 hr 12/02/24 07:13 WBC 5.6 RBC 3.92 L Hgb 11.7 L Hct 34.5 L MCV 88.0 MCH 29.8 MCHC 33.9 RDW 13.6 Plt Count 174 MPV 10.9 Absolute Nucleated RBC 0.000 Nucleated RBC % (auto) 0.0 Sodium 140 Potassium 4.0 Chloride 109 H Carbon Dioxide 24 Anion Gap 11 L BUN 14 Creatinine 0.84 Estim Creat Clear Calc 113.6 Estimated GFR > 60 Random Glucose 115 Calcium 8.5 Total Bilirubin 0.3 AST 35 ALT 23 Alkaline Phosphatase 52 Total Protein 5.2 L Albumin 3.4 L Preliminary micro results at discharge 11/30/24 21:04 Blood Culture - Preliminary Blood - Venous No growth after 24 hours. 11/30/24 21:04 Blood Culture - Preliminary Blood - Venous No growth after 24 hours. Discharge Plan Discharge Patient Disposition: Xfer Psychiatric Hosp Referrals: [facility] [Outside] - 1 Week Physician,Unknown J [Primary Care Provider, Medical] - 1 Week Discharge Medications: New ipratropium-albuterol 0.5 mg-3 mg(2.5 mg base)/3 mL Solution For Nebulization 3 ml inhalation Q4H PRN (Reason: Shortness Of Breath/Wheezing) Qty: 90 0RF Continued bupropion HCl [Wellbutrin XL] 300 mg tablet extended release 24 hr 300 mg PO DAILY bupropion HCl [Wellbutrin XL] 150 mg tablet extended release 24 hr 150 mg PO DAILY Brixadi 96 mg/0.27 mL Solution, Extended Rel Syringe 96 mg SUBCUT Q28D prazosin 5 mg Capsule 5 mg PO BEDTIME 30 Days Qty: 30 0RF Protocol: Hold for SBP< HOLD for SBP < : 90 gabapentin 800 mg tablet 800 mg PO TID 30 Days Qty: 90 0RF trazodone 100 mg Tablet 200 mg PO BEDTIME 30 Days Qty: 60 0RF zolpidem [Ambien] 10 mg tablet 10 mg PO BEDTIME 30 Days Qty: 30 0RF methylphenidate HCl [Ritalin] 20 mg tablet 20 mg PO BID@0800,1400 7 Days Qty: 14 0RF Rx Instructions: Partial Fill upon patient request. Discharge Orders: Discharge Order (Routine); Ordered 12/02/24 Ordered By: Charis Ruvalcaba Diet: Diabetic diet Activity on Discharge: As tolerated Stand Alone Forms: Patient Portal Discharge page Print Language: Estonian
[2024-12-02 19:55] VITALS: BP 150/86; PULSE 66; RESP 18; TEMP 36.4; O2SAT 100
== END 2024-12-02 20:07 | DRG 351 ==
LOC: HO.ED 21:51 → HO.EDOVER 21:59 → HO.IMC 12-01 17:03
PROVIDERS: Nurse Practitioner Family; Admitting Provider Student in an Organized Health Care Education/Training Program; Emergency Provider Internal Medicine; Visit Provider Student in an Organized Health Care Education/Training Program
DX: M62.82 Rhabdomyolysis (principal); E87.20 Acidosis, unspecified; N17.9 Acute kidney failure, unspecified; R45.851 Suicidal ideations; F10.239 Alcohol dependence with withdrawal, unspecified; F14.90 Cocaine use, unspecified, uncomplicated; F43.12 Post-traumatic stress disorder, chronic; Y90.0 Blood alcohol level of less than 20 mg/100 ml; E86.1 Hypovolemia; E86.0 Dehydration; Z79.899 Other long term (current) drug therapy
CPT/HCPCS: 36415; 71045; 80053; 80307; 81001; 82550; 82570; 82947; 83605; 83690; 83735; 83930; 83935; 84484; 85025; 85027; 87040; 93005; 99285; J1644; J3360; J7120; S9485

== ENCOUNTER → 2024-11-30 17:13 | Outpatient (BNV) | payer MEDICAID, SELFPAY | PROVIDERS: Emergency Provider Internal Medicine; Visit Provider Radiology Diagnostic Radiology | DX: R00.0 Tachycardia, unspecified (principal) | CPT/HCPCS: 71045 ==

== ENCOUNTER → 2024-11-30 17:17 | Outpatient (BNV) | payer MEDICAID, SELFPAY | PROVIDERS: Admitting Provider Student in an Organized Health Care Education/Training Program; Emergency Provider Internal Medicine; Visit Provider Internal Medicine Cardiovascular Disease | DX: R00.0 Tachycardia, unspecified (principal) | CPT/HCPCS: 93010 ==

== ENCOUNTER → 2024-11-30 20:47 | Outpatient (BNV) | payer OTHER, SELFPAY | PROVIDERS: Admitting Provider Student in an Organized Health Care Education/Training Program; Emergency Provider Internal Medicine; Visit Provider Nurse Practitioner Psychiatric/Mental Health | DX: F10.90 Alcohol use, unspecified, uncomplicated (principal) | CPT/HCPCS: 99232 ==

== ENCOUNTER → 2024-11-30 20:47 | Outpatient (BNV) | payer MEDICAID, SELFPAY | PROVIDERS: Admitting Provider Student in an Organized Health Care Education/Training Program; Emergency Provider Internal Medicine; Visit Provider Nurse Practitioner Family | DX: N17.9 Acute kidney failure, unspecified (principal); F10.90 Alcohol use, unspecified, uncomplicated | CPT/HCPCS: 99221 ==

== ENCOUNTER → 2024-11-30 20:47 | Outpatient (BNV) | payer MEDICAID, SELFPAY | PROVIDERS: Admitting Provider Student in an Organized Health Care Education/Training Program; Emergency Provider Internal Medicine; Visit Provider Nurse Practitioner Family | DX: N17.9 Acute kidney failure, unspecified (principal) | CPT/HCPCS: 99223 ==